=== PATIENT | female | born 1945 | race Caucasian/White ===

== ENCOUNTER → 2016-05-23 | Outpatient (CLI) | payer MEDICARE ==
[~2016-05-23] MED LIST: ALLP300T PO; AMLO10TA4 PO; AMLO10TA82 PO; ASP81TEC PO; ASPI-587 PO; ATN50T; AZIT250T PO; BARIUM SUSPENSION 2.1% (VANILLA SILQ) 450 ML PO ONE; BENZ-13 PO; BISO5TAB PO; CATHETER FLUSH 10 ML SYR IV PRN; DIAZ5TAB PO; EST45C; GABA300C PO; HCT25T; HYDR-3454 PO; HYDR-3583 PO; HYDR-3714 PO; HYDROCODONE; INSASP10V SC; INSU100V5 SQ; INSU100V8 SC; IOHEXOL 350 MG/ML 100 ML (OMNIPAQUE 350) VIAL IV ONE; LISI10TA PO; LOSA100T28 PO; LOSA100T7 PO; LOSA25TA21 PO; LOSA25TA5 PO; LOVA20TA2 PO; LSRT50T PO; MAGN400C PO; MULT1TAB63 PO; NEBI5TAB8 PO; NFNEB10T PO; NITR-33 PO; NITR100C10 PO; NS 100 ML (IVPB) BAG IV ONE; OMG1KC PO; POTASSIUM CITRATE; PRAV20TA PO; PROP1TAB77; RELION INSULIN; SPIR25TA3 PO; SULF1TAB35 PO
--- OUTSIDE RECORDS SUMMARY | 2016-05-23 09:29 | XMS REPORT | Continuity of Care Document ---
Author Author [facility] Organization [facility] Address Unknown Phone Unavailable Care Team Providers Care Naval Inspector Name Role Phone Bryanna Hand PCP [phone] Source Comments Some departments are not documenting in the electronic medical record. If you do not see the information that you expected, contact Release of Information in the Health Information Management department at [phone] for further assistance in locating additional records.[facility] Active Allergies and Adverse Reactions No Known Allergies Current Medications Prescription Sig. Disp. Refills Start End Date Status Date oxycodone/acetaminophen Take 1-2 Tabs by mouth 30 0 07/11/19 Active (PERCOCET) 5/325 mg Every 4-6 Hours as needed 09 tablet for Pain. senna/docusate Take 2 Tabs by mouth 60 0 07/11/19 Active (SENOKOT-S) 8.6/50 mg Twice Daily. 09 tablet levofloxacin (LEVAQUIN) Take 1 Tab by mouth 3 3 07/11/19 Active 500 mg tablet Daily. 09 Active Problems Problem Noted Date Nephrolithiasis 07/10/2008 Social History Tobacco Use Types Packs/Day Years Used Date Never Smoker Alcohol Use Drinks/Week oz/Week Comments No Last Filed Vital Signs Vital Sign Reading Time Taken Blood Pressure 159/76 07/10/2008 3:01 PM AGRICULTURAL EQUIPMENT SALES MANAGER Pulse 73 07/10/2008 3:01 PM AGRICULTURAL EQUIPMENT SALES MANAGER Temperature 37.3 C (99.1 F) 07/10/2008 3:01 PM AGRICULTURAL EQUIPMENT SALES MANAGER Respiratory Rate - - Height 1.651 m (5' 5") 07/09/2008 10:00 PM AGRICULTURAL EQUIPMENT SALES MANAGER Weight 67.405 kg (148 lb 9.6 oz) 07/10/2008 6:03 AM AGRICULTURAL EQUIPMENT SALES MANAGER Body Mass Index 24.73 07/10/2008 6:03 AM AGRICULTURAL EQUIPMENT SALES MANAGER Oxygen Saturation 97% 07/10/2008 3:01 PM AGRICULTURAL EQUIPMENT SALES MANAGER Plan of Care Health Maintenance Due Date Last Done Comments Physical (Comprehensive) 12/12/1952 Exam Pertussis Vaccine 12/12/1955 Tetanus Vaccine 1961 Breast Cancer Screening 1984 Colorectal Cancer 1994 Screening Shingles Vaccine 2004 Osteoporosis Screening 2009 Prevnar/Pneumovax (#1) 2009 Influenza Vaccine 01/07/2016 Results from Last 3 Months Not on file
--- NOTE | 2016-05-23 10:58 | Diagnostic Imaging Report ---
CLINICAL INDICATION: Patient with left-sided pain and coughing. Patient feels like something is in throat. EXAM: Axial CT scan of the neck soft tissue performed with 100 cc of Omnipaque 350 IV contrast. COMPARISON: CT scan of the neck soft tissue performed without IV contrast dated 07/16/2015. FINDINGS: There is non-masslike nonspecific vascularity and enhancement involving the upper esophagus/low hypopharyngeal region. There is a multi-nodular and slightly heterogeneous thyroid gland noted. There is at least 13 mm heterogeneous nodule in the right thyroid gland. The bilateral salivary glands are unremarkable. There is no neck lymphadenopathy. Stable mild impression upon the left posterior hypopharyngeal region of the cervical left ICA. Stable small right-sided tonsilliths. Otherwise, the nasopharynx, oropharynx, hypopharynx, and laryngeal structures are relatively symmetric and unremarkable. Lung apices show no significant abnormality. There are degenerative spurs and facet arthropathy involving the cervical spine. IMPRESSION: 1: Non-masslike, nonspecific vascularity and enhancement involving the upper esophagus/low hypopharyngeal region. Followup CT scan of the neck soft tissue with IV contrast in 3 months is suggested to evaluate for stability. This may just be normal appearance for patient. 2: There is no evidence of neck mass or significant abnormality. There is no lymphadenopathy. 3: Multinodular thyroid gland. Thyroid ultrasound would better evaluate. Dictated by: Dictated on workstation # [id number]
--- NOTE | 2016-05-23 11:40 | Diagnostic Imaging Report ---
PROCEDURE: CT abdomen and pelvis with contrast. TECHNIQUE: Multiple contiguous axial images were obtained through the abdomen and pelvis after administration of intravenous contrast. INDICATION: Followup colon cancer. COMPARISON: 10/04/2015. DISCUSSION: The visualized lung bases are well-aerated. Normal heart size. No pleural or pericardial fluid. Diffuse fatty infiltration of the liver is noted. No discrete liver mass is otherwise identified. The gallbladder, pancreas, stomach, spleen, and right adrenal gland are unremarkable. Borderline diffuse thickening the left adrenal gland is stable. Subcentimeter right renal cysts are stable. No hydronephrosis or solid renal mass. No stone identified. Scattered atherosclerotic plaque throughout a nonaneurysmal aorta. There is trace free fluid noted within the pelvis. Sigmoid diverticulosis with no secondary evidence for diverticulitis. Previous colectomy is otherwise noted with a right lower quadrant ostomy. Mild appearance of a central ha mesentery is again demonstrated. There are associated prominent central mesenteric lymph nodes which are essentially stable in size and number with the largest measuring 1.0 x 2.7 cm. The uterus is surgically absent. Urinary bladder is decompressed. Sclerotic focus within the L3 vertebrae is stable. No acute osseous abnormality identified. IMPRESSION: 1. Stable changes of mesenteric adenopathy and ha mesentery, indeterminate etiology. 2. Fatty infiltration of liver. 3. No other adverse interval change. Sclerotic focus within the L3 vertebrae is stable. Dictated by: Dictated on workstation # [id number]
== END ==
LOC: RAD 09:27
PROVIDERS: ATTEND Internal Medicine Hematology & Oncology
DX: C19 Malignant neoplasm of rectosigmoid junction (principal)
CPT/HCPCS: 70491; 74177

== ENCOUNTER → 2016-05-31 | Outpatient (CLI) | payer MEDICARE ==
[~2016-05-31] MED LIST changes: -BARIUM SUSPENSION 2.1% (VANILLA SILQ) 450 ML PO ONE; -CATHETER FLUSH 10 ML SYR IV PRN; -IOHEXOL 350 MG/ML 100 ML (OMNIPAQUE 350) VIAL IV ONE; -NS 100 ML (IVPB) BAG IV ONE
--- OUTSIDE RECORDS SUMMARY | 2016-05-31 12:43 | XMS REPORT | Continuity of Care Document ---
Author Author [facility] Organization [facility] Address Unknown Phone Unavailable Care Team Providers Care Home Care Giver Name Role Phone Bryanna Hand PCP [phone] Source Comments Some departments are not documenting in the electronic medical record. If you do not see the information that you expected, contact Release of Information in the Health Information Management department at [phone] for further assistance in locating additional records.[facility] Active Allergies and Adverse Reactions No Known [...] Taken Blood Pressure 159/76 07/10/2008 3:01 PM STRIPPING SHOVEL OILER Pulse 73 07/10/2008 3:01 PM STRIPPING SHOVEL OILER Temperature 37.3 C (99.1 F) 07/10/2008 3:01 PM STRIPPING SHOVEL OILER Respiratory Rate - - Height 1.651 m (5' 5") 07/09/2008 10:00 PM STRIPPING SHOVEL OILER Weight 67.405 kg (148 lb 9.6 oz) 07/10/2008 6:03 AM STRIPPING SHOVEL OILER Body Mass Index 24.73 07/10/2008 6:03 AM STRIPPING SHOVEL OILER Oxygen Saturation 97% 07/10/2008 3:01 PM STRIPPING SHOVEL OILER Plan of Care Health Maintenance Due Date Last Done Comments Physical (Comprehensive) 12/12/1952 Exam Pertussis Vaccine 12/12/1955 Tetanus Vaccine 1961 Breast Cancer Screening 1984 Colorectal Cancer 1994 Screening Shingles Vaccine 2004 Osteoporosis Screening 2009 Prevnar/Pneumovax (#1) 2009 Influenza Vaccine 01/07/2016 Results from Last 3 Months Not on file
== END ==
LOC: ONC 12:39
PROVIDERS: ATTEND Internal Medicine Hematology & Oncology
DX: Z08 Encounter for follow-up examination after completed treatment for malignant neoplasm (principal); Z85.038 Personal history of other malignant neoplasm of large intestine; Z85.048 Personal history of other malignant neoplasm of rectum, rectosigmoid junction, and anus; M89.9 Disorder of bone, unspecified; E11.9 Type 2 diabetes mellitus without complications; I10 Essential (primary) hypertension; E04.2 Nontoxic multinodular goiter; Z79.4 Long term (current) use of insulin; Z79.899 Other long term (current) drug therapy
CPT/HCPCS: 99213

== ENCOUNTER → 2016-06-02 | Outpatient (CLI) | payer MEDICARE ==
--- OUTSIDE RECORDS SUMMARY | 2016-06-02 11:58 | XMS REPORT | Continuity of Care Document ---
Author Author [facility] Organization [facility] Address Unknown Phone Unavailable Care Team Providers Care Loan Interviewer Mortgage Name Role Phone Bryanna Hand PCP [phone] Source Comments Some departments are not documenting in the electronic medical record. If you do not see the information that you expected, contact Release of Information in the Health Information Management department at [phone] for further assistance in locating additional records.[facility] Active Allergies and Adverse Reactions [...] Taken Blood Pressure 159/76 07/10/2008 3:01 PM ELECTRONIC MASKING SYSTEM OPERATOR Pulse 73 07/10/2008 3:01 PM ELECTRONIC MASKING SYSTEM OPERATOR Temperature 37.3 C (99.1 F) 07/10/2008 3:01 PM ELECTRONIC MASKING SYSTEM OPERATOR Respiratory Rate - - Height 1.651 m (5' 5") 07/09/2008 10:00 PM ELECTRONIC MASKING SYSTEM OPERATOR Weight 67.405 kg (148 lb 9.6 oz) 07/10/2008 6:03 AM ELECTRONIC MASKING SYSTEM OPERATOR Body Mass Index 24.73 07/10/2008 6:03 AM ELECTRONIC MASKING SYSTEM OPERATOR Oxygen Saturation 97% 07/10/2008 3:01 PM ELECTRONIC MASKING SYSTEM OPERATOR Plan of Care Health Maintenance Due Date Last Done Comments Physical (Comprehensive) 12/12/1952 Exam Pertussis Vaccine 12/12/1955 Tetanus Vaccine 1961 Breast Cancer Screening 1984 Colorectal Cancer 1994 Screening Shingles Vaccine 2004 Osteoporosis Screening 2009 Prevnar/Pneumovax (#1) 2009 Influenza Vaccine 01/07/2016 Results from Last 3 Months Not on file
--- NOTE | 2016-06-02 13:02 | Diagnostic Imaging Report ---
CLINICAL INDICATION: Patient with cough and feels like something is stuck in the left side of the throat. COMPARISONS: None. FINDINGS: THYROID NODULES: There are multiple bilateral thyroid gland nodules of multiple sizes. The largest on the right side measures 1.3 cm x 1.3 cm x 0.8 cm and is heterogeneous, but predominantly solid. There is peripheral Doppler signal seen adjacent to this nodule. The largest on the left side is predominantly anechoic and measures 8 mm x 7 mm x 4 mm. THYROID GLAND: Besides the thyroid nodules, the thyroid gland has normal size, shape and echogenicity. The right lobe measures 4.5 cm x 1.8 cm x 1.9 cm and the left lobe measures 5.3 cm x 2.0 cm x 1.5 cm in their three dimensions. ISTHMUS: The isthmus is unremarkable and measures roughly 5 mm in thickness. IMPRESSION: Multiple bilateral thyroid gland nodules with the largest measuring 1.3 cm in the right thyroid gland. Followup ultrasound in six months is suggested to evaluate for stability. Dictated by: Dictated on workstation # [id number]
== END ==
LOC: RAD 11:54
PROVIDERS: ATTEND Internal Medicine Hematology & Oncology
DX: E04.2 Nontoxic multinodular goiter (principal)
CPT/HCPCS: 76536

== ENCOUNTER → 2016-06-06 | Outpatient (CLI) | payer MEDICARE ==
--- OUTSIDE RECORDS SUMMARY | 2016-06-06 09:09 | XMS REPORT | Continuity of Care Document ---
Author Author [facility] Organization [facility] Address Unknown Phone Unavailable Care Team Providers Care Assistant Grocery Store Manager Name Role Phone Bryanna Hand PCP [phone] Source Comments Some departments are not documenting in the electronic medical record. If you do not see the information that you expected, contact Release of Information in the Health Information Management department at [phone] for further assistance in locating additional records.[facility] Active Allergies and Adverse Reactions No [...] Taken Blood Pressure 159/76 07/10/2008 3:01 PM WHOLESALE ACCOUNT MANAGER Pulse 73 07/10/2008 3:01 PM WHOLESALE ACCOUNT MANAGER Temperature 37.3 C (99.1 F) 07/10/2008 3:01 PM WHOLESALE ACCOUNT MANAGER Respiratory Rate - - Height 1.651 m (5' 5") 07/09/2008 10:00 PM WHOLESALE ACCOUNT MANAGER Weight 67.405 kg (148 lb 9.6 oz) 07/10/2008 6:03 AM WHOLESALE ACCOUNT MANAGER Body Mass Index 24.73 07/10/2008 6:03 AM WHOLESALE ACCOUNT MANAGER Oxygen Saturation 97% 07/10/2008 3:01 PM WHOLESALE ACCOUNT MANAGER Plan of Care Health Maintenance Due Date Last Done Comments Physical (Comprehensive) 12/12/1952 Exam Pertussis Vaccine 12/12/1955 Tetanus Vaccine 1961 Breast Cancer Screening 1984 Colorectal Cancer 1994 Screening Shingles Vaccine 2004 Osteoporosis Screening 2009 Prevnar/Pneumovax (#1) 2009 Influenza Vaccine 01/07/2016 Results from Last 3 Months Not on file
== END ==
LOC: ONC 09:05
PROVIDERS: ATTEND Internal Medicine Hematology & Oncology
DX: Z08 Encounter for follow-up examination after completed treatment for malignant neoplasm (principal); Z85.038 Personal history of other malignant neoplasm of large intestine; Z85.048 Personal history of other malignant neoplasm of rectum, rectosigmoid junction, and anus; M89.9 Disorder of bone, unspecified; E11.9 Type 2 diabetes mellitus without complications; I10 Essential (primary) hypertension; E04.2 Nontoxic multinodular goiter; Z79.4 Long term (current) use of insulin; Z79.899 Other long term (current) drug therapy
CPT/HCPCS: 99213

== ENCOUNTER → 2016-08-01 | Outpatient (CLI) | payer MEDICARE ==
[~2016-08-01] VITALS: Ht 165.1 cm; Wt 72.6 kg
[~2016-08-01] MED LIST changes: +CATHETER FLUSH 10 ML SYR IV PRN; +REGADENOSON 0.4 MG/5 ML SYR (LEXISCAN) IV ONE
--- NOTE | 2016-08-01 11:25 | STRESS TEST ---
PROCEDURE PHYSICIAN: NAYA URIAS LEXISCAN MYOVIEW STRESS TEST REPORT: DATE OF PROCEDURE: 08/01/2016 REFERRING PHYSICIAN: Dr. Jerardo Simmons. INDICATION FOR THE PROCEDURE: Chest pain. Baseline heart rate is 74, baseline blood pressure: 184/84. Baseline EKG: Sinus rhythm with no ischemic changes. SUMMARY: The patient was injected with 10.07 mCi of technetium 99 Myoview and the resting images were obtained. Then the patient received 0.4 mg of Lexiscan followed by 31.7 mCi of technetium 99 Myoview. Throughout the test, there were no EKG changes. The resting and stress images were reviewed and compared in the short axis, horizontal long axis, and vertical long axis views. Review of the images showed breast attenuation affecting the quality of the images. There is mild decreased uptake at the mid to apical anterior lateral wall, with subtle reversibility. SSS is 3, SDS 3, probably due to the breast attenuation. TID value 0.93. On the gated images, the left ventricle appeared to be normal size with normal contractility. Calculated ejection fraction 75%. CONCLUSION: 1. The patient tolerated Lexiscan well. 2. Breast attenuation affecting the quality of the images with typical female pattern. No significant ischemia or infarction on SPECT images. 3. Normal left ventricular size with normal contractility. Calculated ejection fraction 75%. Job ID: [id number] Dictated Date: 08/01/2016 11:06:16 Pattern And Chain Maker Date: 08/01/2016 11:21:31 / veronica
== END ==
LOC: CARD 07:30
PROVIDERS: ATTEND Internal Medicine Cardiovascular Disease
DX: I25.10 Atherosclerotic heart disease of native coronary artery without angina pectoris (principal); R07.89 Other chest pain; Z82.3 Family history of stroke; E78.2 Mixed hyperlipidemia; I10 Essential (primary) hypertension
CPT/HCPCS: 78452; 93017

== ENCOUNTER → 2016-08-02 | Outpatient (CLI) | payer MEDICARE ==
[~2016-08-02] MED LIST changes: -CATHETER FLUSH 10 ML SYR IV PRN; -REGADENOSON 0.4 MG/5 ML SYR (LEXISCAN) IV ONE
== END ==
LOC: ONC 14:12
PROVIDERS: ATTEND Internal Medicine Hematology & Oncology
DX: Z08 Encounter for follow-up examination after completed treatment for malignant neoplasm (principal); Z85.038 Personal history of other malignant neoplasm of large intestine; Z85.048 Personal history of other malignant neoplasm of rectum, rectosigmoid junction, and anus; M89.9 Disorder of bone, unspecified; E11.9 Type 2 diabetes mellitus without complications; I10 Essential (primary) hypertension; E04.2 Nontoxic multinodular goiter; Z79.4 Long term (current) use of insulin; Z79.899 Other long term (current) drug therapy
CPT/HCPCS: 99213

== ENCOUNTER → 2016-08-03 | Outpatient (CLI) | payer MEDICARE ==
--- NOTE | 2016-08-03 12:44 | ECHOCARDIOGRAPHY REPORT ---
PROCEDURE PHYSICIAN: NAYA URIAS DATE OF PROCEDURE: 08/03/2016 TWO DIMENSIONAL ECHOCARDIOGRAM REPORT PRIMARY PHYSICIAN: OTHER PHYSICIAN: REFERRING PHYSICIAN: Dr. Jerardo Simmons ORDERING PHYSICIAN: INDICATION FOR THE PROCEDURE: Chest pain, coronary artery disease. MEASUREMENTS DERIVED VALUES LV DIAMETER (LAX) NORMALS NORMALS Diastolic 4. (3.6-5.2) Eject. Fract. 60% (60%+/-6%) Systolic (2.3-3.9) Diastolic Vol. % Shortening (0.22-0.42) Systolic Vol. Aortic Root IVS THICKNESS Diastolic 1.3 (0.6-1.1) LVPW THICKNESS Diastolic 1.4 (0.6-1.1) LA DIAMETER Systolic 3.0 (2.1-3.7) FINDINGS: 1. Technical quality is good. 2. The left ventricle is normal in size with moderate left ventricular hypertrophy noted diffusely. Systolic function appeared to be normal. Estimated ejection fraction 60%. 3. The left atrium is normal in size. No clot or thrombus were seen within the left atrium. 4. The right atrium and right ventricle are normal in size. No clot or thrombus were seen within the right side. 5. Mitral valve is normal in morphology with mild mitral regurgitation noted by color Doppler flow. No mitral valve prolapse. No mitral valve stenosis. 6. Aortic valve is trileaflet with normal opening and closing pattern. No significant aortic stenosis or regurgitation was seen. 7. Tricuspid valve is normal in morphology with mild tricuspid regurgitation noted by color Doppler flow. Doppler across tricuspid valve estimated pulmonary artery pressure of 20+ right atrial pressure. 8. Pulmonic valve is functioning normally. 9. No pericardial effusion. CONCLUSION: 1. Normal left ventricular size and systolic function. Estimated ejection fraction 60%. 2. Mild mitral and tricuspid regurgitation. 3. Estimated pulmonary artery pressure of 25 to 30 mmHg. Job ID: [id number] Dictated Date: 08/03/2016 11:53:25 Cleat Thrower Date: 08/03/2016 12:39:31 / veronica
== END ==
LOC: CARD 07:46
PROVIDERS: ATTEND Internal Medicine Cardiovascular Disease
DX: I25.10 Atherosclerotic heart disease of native coronary artery without angina pectoris (principal); I10 Essential (primary) hypertension; E78.2 Mixed hyperlipidemia; R07.89 Other chest pain; Z82.3 Family history of stroke
CPT/HCPCS: 93306

== ENCOUNTER → 2016-08-19 | Outpatient (CLI) | payer MEDICARE ==
--- NOTE | 2016-08-19 17:39 | Diagnostic Imaging Report ---
EXAMINATION: Bilateral breast digital diagnostic mammogram with CAD. The current study was also evaluated with a Computer Aided Detection (CAD) system. COMPARISON: 08/18/15. INDICATION: Right breast pain and history of left breast lumpectomy with benign results. FINDINGS: The breasts are composed of heterogeneously dense parenchyma which may decrease mammographic sensitivity. There are surgical clips in the upper left breast. There is a focal asymmetry, measuring 1.3 cm, with lobulated appearance in the retroareolar area of the right breast and more posteriorly in the CC projection there is an asymmetry with question of summation artifact. Further evaluation with focal compression views demonstrate confirmed 1.3 cm retroareolar nodule and the more posterior asymmetry has resolved, suggestive of summation artifact of parenchyma. The left breast demonstrates no significant change with postsurgical changes and biopsy clip noted. IMPRESSION: 1.3 cm circumscribed retroareolar nodule in the right breast. Ultrasound evaluation pending. ACR BI-RADS Category 0: Incomplete. (Needs additional imaging evaluation). Result letter will be mailed to the patient. Note: At least 10% of breast cancer is not imaged by mammography. Dictated by: Dictated on workstation # [id number]
--- NOTE | 2016-08-22 08:58 | Diagnostic Imaging Report ---
Right breast ultrasound. INDICATION: Severe right breast pain. FINDINGS: There is a 1.3 cm simple cyst in the 12 o'clock periareolar region explaining the nodule seen on mammography. The retroareolar region and four quadrants of the breast otherwise demonstrate no underlying abnormality. IMPRESSION: The nodule seen on mammography corresponds to a simple cyst with no suspicious lesion seen. This does not explain the breast pain. Clinical follow-up is recommended. ACR BI-RADS Category 1: Negative. Dictated by: Dictated on workstation # [id number]
== END ==
LOC: RAD 07:21
PROVIDERS: ATTEND Internal Medicine
DX: N64.4 Mastodynia (principal); N60.01 Solitary cyst of right breast
CPT/HCPCS: 76641; 77066

== ENCOUNTER 2016-10-14 08:04 | Outpatient (RCR) | payer MEDICARE ==
[2016-10-12 10:23] LABS: CALCIUM 9.5 MG/DL (8.5-10.1); CREATININE SERUM 1.01 MG/DL (0.60-1.30); POTASSIUM 3.9 MMOL/L (3.6-5.0); URIC ACID 3.1 MG/DL (2.6-7.2)
--- NOTE | 2016-10-12 10:39 | Diagnostic Imaging Report ---
INDICATION: Nephrolithiasis. There is a 3-mm opacity projecting over the inferior pole of the left kidney. Patient has a ileostomy in the right lower quadrant of the abdomen. Bowel gas pattern is normal. IMPRESSION: Suspected left nephrolithiasis. Dictated by: Dictated on workstation # [id number]
[2016-10-22 20:39] LABS: STONE RISK AMMONIUM 44 mEq/24hr (14-62); STONE RISK BRUSHITE 0.12 (< 2.00); STONE RISK CA OXALATE 1.14 (< 2.00); STONE RISK CALCIUM 103 mg/day (< 250); STONE RISK CITRATE 62 mg/day (> 320); STONE RISK CREATININE 1346 mg/day (600-1800); STONE RISK MAGNESIUM 52 mg/day (> 60); STONE RISK OXALATE 32 mg/day (< 45); STONE RISK PH 5.2 (5.5-7.0); STONE RISK PHOSPHOROUS 654 mg/day (< 1100); STONE RISK POTASSIUM 38 mEq/24hr (19-135); STONE RISK SODIUM 45 mEq/24hr (< 200); STONE RISK SODIUM URATES 0.09 (< 2.00); STONE RISK STRUVITE 0.01 (< 75.00); STONE RISK SULFITE 8 mmol/day (< 30); STONE RISK TOTAL VOLUME 2.11 L/day (> 2.00); STONE RISK URIC ACID 243 mg/day (< 700); STONE RISK URIC ACID SAT 1.54 (< 2.00)
== END 2017-01-10 | disposition home or self-care (01) ==
LOC: RAD 08:04
PROVIDERS: ATTEND Urology
DX: N20.0 Calculus of kidney (principal)
CPT/HCPCS: 36415; 74000; 80048; 82140; 82340; 82507; 82570; 83735; 83945; 83986; 84105; 84133; 84300; 84392; 84550; 84560

== ENCOUNTER → 2017-08-01 | Outpatient (CLI) | payer MEDICARE ==
[2017-08-01 10:54] LABS: BASOPHILS % (AUTO) 1 % (0-10); EOSINOPHILS # (AUTO) 0.3 10^3/uL (0.0-0.3); EOSINOPHILS % (AUTO) 6 % (0-10); HEMATOCRIT 38 % (35-52); LYMPHOCYTES # (AUTO) 1.3 X 10^3 (1.0-4.0); LYMPHOCYTES % (AUTO) 22 % (12-44); MEAN CORPUSCULAR HEMOGLOBIN 33 PG (25-34); MEAN CORPUSCULAR HGB CONC 34 G/DL (32-36); MEAN CORPUSCULAR VOLUME 98 FL (80-99); MEAN PLATELET VOLUME 9.1 FL (7.4-10.4); MONOCYTES # (AUTO) 0.6 X 10^3 (0.0-1.0); MONOCYTES % (AUTO) 11 % (0-12); NEUTROPHILS # (AUTO) 3.4 X 10^3 (1.8-7.8); NEUTROPHILS % (AUTO) 61 % (42-75); PLATELET COUNT 149 10^3/uL (130-400); RED CELL DISTRIBUTION WIDTH 13.2 % (10.0-14.5); WHITE BLOOD COUNT 5.7 10^3/uL (4.3-11.0)
[2017-08-01 11:16] LABS: ALBUMIN 4.1 GM/DL (3.2-4.5); BILIRUBIN,TOTAL 0.6 MG/DL (0.1-1.0); CALCIUM 9.6 MG/DL (8.5-10.1); CREATININE SERUM 1.02 MG/DL (0.60-1.30); POTASSIUM 3.7 MMOL/L (3.6-5.0); TOTAL PROTEIN 7.1 GM/DL (6.4-8.2)
== END ==
LOC: ONC 10:40
PROVIDERS: ATTEND Internal Medicine Hematology & Oncology
DX: Z08 Encounter for follow-up examination after completed treatment for malignant neoplasm (principal); Z85.038 Personal history of other malignant neoplasm of large intestine; Z85.048 Personal history of other malignant neoplasm of rectum, rectosigmoid junction, and anus; M89.9 Disorder of bone, unspecified; R19.4 Change in bowel habit; E11.9 Type 2 diabetes mellitus without complications; I10 Essential (primary) hypertension; E04.2 Nontoxic multinodular goiter; Z79.4 Long term (current) use of insulin; Z79.899 Other long term (current) drug therapy
CPT/HCPCS: 36415; 80053; 82378; 85025; 99213

== ENCOUNTER → 2017-08-21 | Outpatient (CLI) | payer MEDICARE ==
--- NOTE | 2017-08-21 12:11 | Diagnostic Imaging Report ---
INDICATION: Routine screening. COMPARISON: 08/19/2016 and 08/18/2015. TECHNIQUE: Screening digital mammography was performed bilaterally with a Computer Aided Detection (CAD) system. 3D tomographic images were obtained and reviewed. FINDINGS: Both breasts are heterogeneously dense, limiting the sensitivity of mammography. A circumscribed mass in the retroareolar right breast appears to be fairly stable and was previously shown to represent a simple cyst. A biopsy clip in the retroareolar left breast is again noted. There are multiple surgical clips in the upper outer left breast. No mass or malignant appearing microcalcifications are seen. The axillae are unremarkable. IMPRESSION: No mammographic features suspicious for malignancy are identified. ACR BI-RADS Category 2: Benign findings. Result letter will be mailed to the patient. Note: At least 10% of breast cancer is not imaged by mammography. Dictated by: Dictated on workstation # [id number]
== END ==
LOC: RAD 08:31
PROVIDERS: ATTEND Internal Medicine
DX: Z12.31 Encounter for screening mammogram for malignant neoplasm of breast (principal)
CPT/HCPCS: 77067

== ENCOUNTER 2017-10-31 15:22 | Outpatient (RCR) | payer MEDICARE ==
[~2017-10-31 15:22] MED LIST changes: -BENZ-13 PO; +BENZ100C18 PO; -LOSA100T28 PO; +LOSA100T8 PO; -LOSA25TA21 PO; +LOSA25TA6 PO
[2017-10-31 16:19] LABS: CALCIUM 9.7 MG/DL (8.5-10.1); CREATININE SERUM 1.12 MG/DL (0.60-1.30); PHOSPHORUS 2.7 MG/DL (2.3-4.7); POTASSIUM 3.6 MMOL/L (3.6-5.0); URIC ACID 2.7 MG/DL (2.6-7.2)
--- NOTE | 2017-10-31 17:49 | Diagnostic Imaging Report ---
INDICATION: History of kidney stones. TIME OF EXAM: 4:13 p.m. COMPARISON: Correlation is made with prior radiograph from 10/12/2016. FINDINGS: Calcific densities overlie the lower pole of the left kidney. This appears to be similar to perhaps slightly increased when compared with one year earlier. Calculi are adjacent to one another and each measure approximately 3 mm. No calculi in the right abdomen are identified. No calculi along the course of the ureters are seen. The bowel gas pattern is unremarkable. IMPRESSION: Probable left lower pole renal calculi, similar to the examination from one year earlier. Dictated by: Dictated on workstation # [id number]
== END 2018-01-29 | disposition home or self-care (01) ==
LOC: LAB 15:22 → EDSTATUS 12-12 14:11
PROVIDERS: ATTEND Urology
DX: N20.0 Calculus of kidney (principal)
CPT/HCPCS: 36415; 74018; 80048; 82140; 82340; 82507; 82570; 83735; 83945; 83986; 84100; 84105; 84133; 84300; 84392; 84550; 84560

== ENCOUNTER 2018-01-30 10:27 | Outpatient (RCR) | payer MEDICARE | END 2018-02-04 | disposition home or self-care (01) | LOC: ONC 10:27 | PROVIDERS: ATTEND Internal Medicine Hematology & Oncology | DX: Z08 Encounter for follow-up examination after completed treatment for malignant neoplasm (principal); Z85.038 Personal history of other malignant neoplasm of large intestine; Z85.048 Personal history of other malignant neoplasm of rectum, rectosigmoid junction, and anus; M89.9 Disorder of bone, unspecified; R19.4 Change in bowel habit; E11.9 Type 2 diabetes mellitus without complications; I10 Essential (primary) hypertension; E04.2 Nontoxic multinodular goiter; Z79.4 Long term (current) use of insulin; Z79.899 Other long term (current) drug therapy | CPT/HCPCS: 99213 ==

== ENCOUNTER 2018-03-27 08:11 | Outpatient (RCR) | payer MEDICARE ==
[~2018-03-27 08:11] MED LIST changes: +LOSA100T57 PO; -LOSA100T8 PO; +LOSA25TA41 PO; -LOSA25TA6 PO
[2018-04-18] MEDS ORDERED: LOSA100T57 PO (07:26)
[2018-04-18] MEDS ORDERED: AMLO5TAB9 PO (07:26)
[2018-04-18] MEDS ORDERED: BISO5TAB PO (07:26)
[2018-04-18] MEDS ORDERED: VITA400C60 PO (07:26)
[2018-04-18] MEDS ORDERED: OMG1KC PO (07:26)
[2018-04-18] MEDS ORDERED: INSU100V6 SQ (07:26)
[2018-04-29] MEDS ORDERED: ONDA4TAB11 PO (13:31)
== END 2018-06-25 | disposition home or self-care (01) ==
LOC: CARD 08:11
PROVIDERS: ATTEND Internal Medicine Cardiovascular Disease
DX: I25.10 Atherosclerotic heart disease of native coronary artery without angina pectoris (principal); R07.89 Other chest pain; E11.9 Type 2 diabetes mellitus without complications; E78.5 Hyperlipidemia, unspecified; R00.2 Palpitations
CPT/HCPCS: 93225; 93226

== ENCOUNTER → 2018-04-11 | Outpatient (CLI) | payer MEDICARE ==
[~2018-04-11] MED LIST changes: +CATHETER FLUSH 10 ML SYR IV PRN; -LOSA100T57 PO; +LOSA100T8 PO; -LOSA25TA41 PO; +LOSA25TA6 PO
[2018-04-11 09:15] VITALS: BP 173/69
[2018-04-11 09:20] VITALS: BP 208/65
[2018-04-11 09:21] VITALS: BP 210/47
--- NOTE | 2018-04-11 15:46 | STRESS TEST ---
DATE OF SERVICE: 04/11/2018 EXERCISE MYOVIEW STRESS TEST REPORT Baseline heart rate is 73, baseline blood pressure 154/85. Baseline EKG is sinus rhythm with no ischemic changes. In summary, the patient was injected with 10.95 mCi of technetium-99 Myoview and the resting images were obtained. Then, the patient started exercising with a baseline heart rate, blood pressure and EKG mentioned above. The patient was able to exercise for a total of 4 minutes and 30 seconds on standard Osmin protocol. With peak exercise level, EKG was showing minimal nondiagnostic changes. Blood pressure was 183/46. During recovery, heart rate and blood pressure returned to baseline. EKG returned to baseline. The resting and stress images were reviewed and compared in the short axis, horizontal long axis, and vertical long axis views. Review of the images showed breast attenuation with decreased uptake involving the whole anterior wall and anterolateral wall with mild reversibility. SSS is 9, SDS 8, TID value 0.98. On the gated images, the left ventricle appeared to be normal size with normal contractility. Calculated ejection fraction 75%. CONCLUSION: 1. Fair exercise tolerance, a total of 4 minutes 30 seconds on standard Osmin protocol, 6.4 METS achieving 98% of maximum expected heart rate. 2. Hypertensive response to exercise, returned to baseline during recovery. 3. Nondiagnostic EKG changes with exercise returned to baseline during recovery. 4. Reversible ischemia involving the whole anterior wall and anterolateral wall. 5. Normal left ventricular size with normal contractility. Calculated ejection fraction 75%. Job ID: [id number] DocumentID: [id number] Dictated Date: 04/11/2018 15:23:59 Director Retail Brand Development Date: 04/11/2018 15:46:20 Dictated By: NAYA URIAS MD
== END ==
LOC: CARD 06:56
PROVIDERS: ATTEND Internal Medicine Cardiovascular Disease
DX: I25.10 Atherosclerotic heart disease of native coronary artery without angina pectoris (principal); R07.89 Other chest pain; E11.9 Type 2 diabetes mellitus without complications; E78.5 Hyperlipidemia, unspecified; R00.2 Palpitations
CPT/HCPCS: 78452; 93017

== ENCOUNTER 2018-04-18 06:48 | Day surgery (SDC) | payer MEDICARE ==
[2018-04-18] VITALS (11 sets, daily range): BP systolic 120–180; BP diastolic 59–84
[~2018-04-18] VITALS: Ht 165.1 cm; Wt 72.6 kg
[~2018-04-18 06:48] MED LIST changes: -CATHETER FLUSH 10 ML SYR IV PRN
[2018-04-18] MEDS ORDERED: HEParin (CATH LAB) 2,000 ML IV ONE (06:56)
[2018-04-18] MEDS ORDERED: NS IV 1000 ML 1,000 ML ONE (06:56)
[2018-04-18] MEDS ORDERED: LIDOCAINE 1% INJ 20 ML 20 ML VIAL ONE (06:56)
[2018-04-18] MEDS ORDERED: NS IV 1000 ML 1,000 ML IV SCH ×3 (07:00→08:28)
[2018-04-18 07:15] LABS: BILIRUBIN,URINE NEGATIVE (NEGATIVE); CLARITY,URINE CLEAR; COLOR,URINE YELLOW; GLUCOSE, URINE (UA) NEGATIVE (NEGATIVE); KETONES,URINE NEGATIVE (NEGATIVE); LEUKOCYTE ESTERASE ,URINE 1+ (NEGATIVE); MEAN PLATELET VOLUME 9.2 FL (7.4-10.4); NITRITE,URINE NEGATIVE (NEGATIVE); PH,URINE 5 (5-9); PROTEIN,URINE 3+ (NEGATIVE); RED BLOOD COUNT 4.27 10^6/uL (4.35-5.85); RED CELL DISTRIBUTION WIDTH 13.4 % (10.0-14.5); UROBILINOGEN,URINE NORMAL (NORMAL); WHITE BLOOD COUNT 5.8 10^3/uL (4.3-11.0)
[2018-04-18 07:23] LABS: BACTERIA,URINE TRACE /HPF; SQUAMOUS EPITHELIAL CELL,UR 0-2 /HPF; WBC,URINE 0-2 /HPF
[2018-04-18] MEDS ORDERED: LOSA100T8 PO (07:26)
[2018-04-18] MEDS ORDERED: VITA400C60 PO (07:26)
[2018-04-18] MEDS ORDERED: INSU100V6 SQ (07:26)
[2018-04-18] MEDS ORDERED: AMLO5TAB7 PO (07:26)
[2018-04-18] MEDS ORDERED: OMG1KC PO (07:26)
[2018-04-18] MEDS ORDERED: BISO5TAB PO (07:26)
[2018-04-18 07:27] LABS: INR 1.1 (0.8-1.4); PROTHROMBIN TIME PATIENT 14.3 SEC (12.2-14.7)
[2018-04-18 07:35] LABS: ALBUMIN 4.5 GM/DL (3.2-4.5); BILIRUBIN,TOTAL 0.8 MG/DL (0.1-1.0); CALCIUM 10.1 MG/DL (8.5-10.1); CREATININE SERUM 1.16 MG/DL (0.60-1.30); POTASSIUM 3.6 MMOL/L (3.6-5.0); TOTAL PROTEIN 7.8 GM/DL (6.4-8.2)
[2018-04-18] MEDS ORDERED: MIDAZOLAM 5 MG/5 ML (VERSED) VIAL ONE (07:48)
--- NOTE | 2018-04-18 07:48 | Diagnostic Imaging Report ---
INDICATION: Heart disease. Comparison made with prior examination 04/27/2016. FINDINGS: The heart size, mediastinal configuration, and pulmonary vascularity are within normal limits. There is no pleural effusion, pneumothorax, or pneumonia. The osseous structures are unremarkable. IMPRESSION: No acute cardiopulmonary abnormality. Dictated by: Dictated on workstation # [id number]
[2018-04-18] MEDS ORDERED: fentaNYL INJECTION 100 MCG/2 ML AMP ONE (07:49)
--- NOTE | 2018-04-18 08:17 | Cardiac Procedure Note-CS/ASA ---
Pre-Procedure Note Pre-Op Procedure Note H&P Reviewed The H&P was reviewed, patient examined and no changes noted. Date H&P Reviewed: Apr 18, 2018 Time H&P Reviewed: 08:17 Conscious Sedation Pre-Proced Time 08:17 ASA Score 3 For ASA 3 and 4: Consider anesthesia and medical clearance. Also, for patients with a history of failed moderate sedation consider anesthesia. Airway Lungs Heart ASA score ASA 1: a normal healthy patient ASA 2: a patient with a mild systemic disease (mid diabetes, controlled hypertension, obesity x ASA 3: a patient with a severe systemic disease that limits activity (angina , COPD, prior Myocardial infarction) ASA 4: a patient with an incapacitating disease that is a constant threat to life (CHF, renal failure) ASA 5: a moribund patient not expected to survive 24 hrs. (ruptured aneurysm) ASA 6: a declared brain patient whose organs are being harvested. For emergent operations, add the letter E after the classification Mallampati Classification Grade 3 Sedation Plan Analgesia, Amnesia, Plan communicated to team members, Discussed options with patient/fam, Discussed risks with patient/fam The patient is an appropriate candidate to undergo the planned procedure, sedation, and anesthesia. The patient immediately re-assessed prior to indication. NAYA URIAS MD Apr 18, 2018 08:17
[2018-04-18] MEDS ORDERED: PATIENT MAY USE OWN MEDS, ALL PO SCH (08:30)
--- NOTE | 2018-04-18 08:30 | Discharge Inst-Post CATH ---
Discharge Inst-CATH Post Cardiac Cath D/C Inst Follow Up/Plan Appointment with Dr. Montana's office in 2-4 weeks CARDIAC CATH DISCHARGE INSTRUCTIONS *Hold Metformin for 48 hours post heart cath. ACTIVITY * Go Home directly and rest. * Limit activity of the leg (or wrist if it was used) for 7 days including aerobics, swimming, jogging, bicycling, etc. * Restrict stair-climbing for 7 days if possible, if not, climb up with your non -cath leg, then bring together on the same step. * Avoid lifting, pushing, pulling or excessive movement of the affected extremity for 7 days. * Customary sexual activity may be resumed after 2 days-use caution not to use a position that strains or causes pain to the affected extremity. * No driving for 24 hours. * NO SMOKING. * Avoid straining for bowel movements for 7 days. * Gentle walking on level ground is allowed. * Returning to work will depend on the type of procedure and the results. Your doctor will discuss this with you. CALL YOUR DOCTOR FOR ANY OF THE FOLLOWING: *If bleeding from the puncture site occurs- Apply gentle pressure to site with clean cloth and call your doctor or EMS. * If a knot or lump forms under the skin, increases in size, or causes pain. * If bruising appears to be worsening or moving further down your leg instead of disappearing. * Temperature above 101 F. CARE OF YOUR GROIN INCISION; * Bruising or purple discoloration of the skin near the puncture site is common. * You may shower only, no bathtub bathing for 5 days. Be careful to avoid slipping as your leg may feel stiff. * If a closure device was used on your femoral artery, please see the attached guide regarding care of the device and your leg. * Leave the dressing on, until removed by office staff. CARE OF YOUR WRIST INCISION; * Bruising or purple discoloration of the skin near the puncture site is common. * You may shower. * DO NOT submerge wrist. * Leave dressing on, until removed by office staff.. NAYA MONTANA MD Apr 18, 2018 08:30
--- NOTE | 2018-04-18 08:34 | Cardiac Cath Report ---
Cardiac Cath Report Physician (s)/Physician Non Invasive Cardiologist (s) Physician NAYA URIAS MD Pre-Procedure Diagnosis Pre-Procedure Diagnosis: coronary artery disease Post-Procedure Note Procedure Start Date: Apr 18, 2018 Name of Procedure: left heart catheterization Findings/Procedure Note PROCEDURE NOTE: After explaining the procedure to the patient, all pros and cons were explained , all questions were answered. The patient signed the consent and then she was placed on the cardiac catheterization laboratory. Groin was prepped SL fashion local anesthesia was used. Sheath placed in the right femoral artery. Edith right and left catheter were used to access the coronary system. JR catheter was used to crossover to the left ventricular cavity, pressure was measured, no left ventricular gram was done At the end of the procedure the sheath was removed. Closure device was used FINDINGS: Hemodynamics LV 137/17, end-diastolic pressure of 17 Aorta 138/45 mean of 88 ANATOMY: Left Main is normal Left Anterior Descending has mild ectasia proximally, mild disease nonobstructive disease in the midportion Left Circumflex has mild ectasia proximally with no obstructive disease, small vessel disease Right Coronory Artery is slightly tortuous with 40-50 percent stenosis in the midportion nonobstructive disease CONCLUSION: 1. Mild ectasia in the proximal LAD with mild disease in the mid LAD, small vessel disease distally, mild ectasia in the proximal circumflex artery and 40- 50 percent stenosis in the mid right coronary artery, nonobstructive disease 2. Normal left ventricular end-diastolic pressure DISCUSSION AND RECOMMENDATION: abnormal stress test is probably due to small vessel disease, medical therapy is recommended no intervention is needed Anesthesia Type: Conscious Sedation Estimated blood loss (mL): 15 ml Contrast Amount: 41 ml Total Radiation Dose: 272 mGy Post-Procedure Diagnosis Post-operative diagnosis: Coronary artery disease Hypertension Hyperlipidemia Diabetes mellitus NAYA URIAS MD Apr 18, 2018 08:34
--- OUTSIDE RECORDS SUMMARY | 2018-04-18 12:37 | XMS REPORT | Clinical Summary ---
Author Author [facility] Organization [facility] Address Unknown Phone Unavailable Care Team Providers Care Manager Grant Name Role Phone Bryanna Hand PCP Tyrone Suarez MD Unavailable Source Comments Some departments are not documenting in the electronic medical record. If you do not see the information that you expected, contact Release of Information in the Health Information Management department at [phone] for further assistance in locating additional records.[facility] Allergies No Known Allergies Medications End Date Status Medication Sig Dispensed Refills Start Date Active oxycodone/acetaminophen Take 1-2 Tabs 30 0 07/10/200 (PERCOCET) 5/325 mg by mouth 9 tablet Every 4-6 Hours as needed for Pain. Active senna/docusate Take 2 Tabs 60 0 200 (SENOKOT-S) 8.6/50 mg by mouth 9 tablet Twice Daily. Active levofloxacin (LEVAQUIN) Take 1 Tab by 3 3 500 mg tablet mouth Daily. 9 Active Problems Problem Noted Date Nephrolithiasis 07/10/2008 Family History Medical History Relation Name Comments Cancer Brother Cancer Father Cancer Mother Stroke Mother Diabetes Sister Relation Name Status Comments Brother Father Mother Sister Social History Date Tobacco Use Types Packs/Day Years Used Never Smoker Alcohol Use Drinks/Week oz/Week Comments No Sex Assigned at Date Recorded Not on file Industry Job Start Date Occupation Not on file Not on file Not on file Travel End Travel History Travel Start No recent travel history available. Last Filed Vital Signs Time Taken Vital Sign Reading 07/10/2008 3:01 PM [facility] Blood Pressure 159/76 07/10/2008 3:01 PM [facility] Pulse 73 07/10/2008 3:01 PM [facility] Temperature 37.3 C (99.1 F) - Respiratory Rate - 07/10/2008 3:01 PM [facility] Oxygen Saturation 97% - Inhaled Oxygen - Concentration 07/10/2008 6:03 AM [facility] Weight 67.4 kg (148 lb 9.6 oz) 07/09/2008 10:00 PM [facility] Height 165.1 cm (5' 5") 07/10/2008 6:03 AM [facility] Body Mass Index 24.73 Plan of Treatment Health Maintenance Due Date Last Done Comments HEPATITIS C SCREENING 1944 PHYSICAL (COMPREHENSIVE) 12/12/1951 EXAM DTAP/TDAP VACCINES (1 - 1962 Tdap) BREAST CANCER SCREENING 1984 COLORECTAL CANCER 1994 SCREENING SHINGLES RECOMBINANT 1994 VACCINE (1 of 2) OSTEOPOROSIS 2009 SCREENING/MONITORING PNEUMONIA (PCV13/PPSV23) 2009 VACCINES (1 of 2 - PCV13) INFLUENZA VACCINE 12/06/2017 Results Not on filefrom Last 3 Months
--- OUTSIDE RECORDS SUMMARY | 2018-04-18 12:37 | XMS REPORT ---
Author Author SUE WALLACE Organization [facility] Address [address] [place] [address] Care Team Providers Care Simulation Software Engineer Name Role Phone SUE WALLACE Unavailable PROBLEMS Unknown Problems ALLERGIES No Information ENCOUNTERS Encounter Location Date Diagnosis [facility] [address] [id number] [place] [address] September, Need for hepatitis C screening test Z11.59 IMMUNIZATIONS No Known Immunizations SOCIAL HISTORY Never Assessed REASON FOR VISIT Hep C Rangel PLAN OF CARE VITAL SIGNS MEDICATIONS Unknown Medications RESULTS Name Result Date Reference Range HEP C ANTIBODY W/ REFLEX HCV 2017-09-23 HEPATITIS C ANTIBODY NON-REACTIVE NON-REACTIVE SIGNAL TO CUT-OFF 0.01 <1.00 PROCEDURES Procedure Date Ordered Result Body Site HEPATITIS C AB TEST September 23, 2017 VENIPUNCT, ROUTINE* September 23, 2017 INSTRUCTIONS MEDICATIONS ADMINISTERED No Known Medications
--- OUTSIDE RECORDS SUMMARY | 2018-04-18 12:40 | XMS REPORT | Continuity of Care Document ---
Author Author [facility] Organization [facility] Address Unknown Phone Unavailable Allergies Active Description Code Type Severity Reaction Onset Reported/Identified Relationship to Patient Clinical Status Yes levofloxacin [id number] Drug Allergy Mild RASH 07/06/2012 Yes amoxicillin [id number] Drug Allergy Unknown N/A 05/28/2014 Yes latex [id number] Drug Allergy Unknown N/A 04/18/2018 Medications There is no data. Problems Date Dx Coded Attending Type Code Diagnosis Diagnosed By 02/21/2011 Ot 250.00 DIAB RAÚL WO COMPL, TYPE II OR UNSPEC TY 02/21/2011 Ot 401.9 HYPERTENSION NOS 02/21/2011 Ot 733.90 BONE CARTILAGE DIS NOS 02/21/2011 Ot 794.8 ABN LIVER FUNCTION STUDY 02/21/2011 Ot V10.05 HX OF COLONIC MALIGNANCY 02/21/2011 Ot V10.06 HX-RECTAL ANAL MALIGN 02/21/2011 Ot V13.01 PERSONAL HISTORY OF URINARY CALCULI 02/21/2011 Ot V58.67 LONG-TERM ( 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 02/21/2011 Ot V58.69 OTH MED,LT, CURRENT USE 02/21/2011 Ot V67.2 CHEMOTHERAPY FOLLOW-UP 07/10/2012 Ot 250.00 DIAB RAÚL WO COMPL, TYPE II OR UNSPEC TY 07/10/2012 Ot 272.4 HYPERLIPIDEMIA NEC/NOS 07/10/2012 Ot 275.2 DIS MAGNESIUM METABOLISM 07/10/2012 Ot 276.8 HYPOPOTASSEMIA 07/10/2012 Ot 401.0 MALIGNANT HYPERTENSION 07/10/2012 Ot 571.49 CHRONIC HEPATITIS NEC 07/10/2012 Ot 786.59 CHEST PAIN NEC 07/10/2012 Ot V10.05 HX OF COLONIC MALIGNANCY 07/10/2012 Ot V10.06 HX-RECTAL ANAL MALIGN 07/10/2012 Ot V10.42 HX-UTERUS MALIGNANCY NEC 07/10/2012 Ot V15.82 HISTORY OF TOBACCO USE 07/10/2012 Ot V44.2 ILEOSTOMY STATUS 07/10/2012 Ot V44.3 COLOSTOMY STATUS 08/09/2012 Ot 327.23 OBSTRUCTIVE SLEEP APNEA (ADULT) (PEDIATR 11/13/2012 ALE KRISHNAMURTHY, JANAY Robert Ot 250.00 DIAB RAÚL WO COMPL, TYPE II OR UNSPEC TY 11/13/2012 JANAY AGUILERA MD Ot 592.0 CALCULUS OF KIDNEY 11/13/2012 JANAY AGUILERA MD Ot V58.67 LONG-TERM (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 07/05/2013 HARSH WALTON MD Ot 250.00 DIAB RAÚL WO COMPL, TYPE II OR UNSPEC TY 07/05/2013 HARSH WALTON MD Ot 272.4 HYPERLIPIDEMIA NEC/NOS 07/05/2013 HARSH WALTON MD Ot 275.2 DIS MAGNESIUM METABOLISM 07/05/2013 HARSH WALTON MD Ot 276.8 HYPOPOTASSEMIA 07/05/2013 HARSH WALTON MD Ot 300.00 ANXIETY STATE NOS 07/05/2013 HARSH WALTON MD Ot 401.1 BENIGN HYPERTENSION 07/05/2013 HARSH WALTON MD Ot 414.01 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, UNSPECIFIED 05/03/2014 JUAN CARLOS WEISS MD Ot 784.0 HEADACHE 05/03/2014 JUAN CARLOS WEISS MD Ot V58.67 LONG-TERM (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 05/03/2014 JUAN CARLOS WEISS MD Ot V58.69 OT MED,LT,CURRENT USE 05/07/2014 BHAVANI GALLAGHER MD Ot 250.00 05/07/2014 BHAVANI GALLAGHER MD Ot 401.9 05/07/2014 BHAVANI GALLAGHER MD Ot 733.90 05/07/2014 BHAVANI GALLAGHER MD Ot V10.05 05/07/2014 AILEEN KRISHNAMURTHY, BHAVANI Ot V10.06 05/07/2014 AILEEN KRISHNAMURTHY, BHAVANI Ot V13.01 05/07/2014 AILEEN KRISHNAMURTHY, BHAVANI Ot V58.67 05/07/2014 AILEEN KRISHNAMURTHY, BHAVANI Ot V58.69 05/07/2014 AILEEN KRISHNAMURTHY, BHAVANI Ot V67.2 05/30/2014 ALLA KRISHNAMURTHY, HERB Naik Ot 173.41 BASAL CELL CARCINOMA OF SCALP AND SKIN O 05/30/2014 ALLA KRISHNAMURTHY, HERB Naik Ot 702.19 OTHER SEBORRHEIC KERATOSIS 05/30/2014 ALLA KRISHNAMURTHY, HERB Naik Ot 709.9 05/30/2014 ALLA KRISHNAMURTHY, HERB Naik Ot V58.69 [facility] MED,,CURRENT USE 10/28/2014 ALE KRISHNAMURTHY, JANAY A Ot 592.9 10/30/2014 ALE KRISHNAMURTHY, JANAY A Ot 592.9 06/03/2015 AILEEN KRISHNAMURTHY, BHAVANI Ot Z08 06/03/2015 AILEEN KRISHNAMURTHY, BHAVANI Ot Z85.038 06/04/2015 AILEEN KRISHNAMURTHY, BHAVANI Ot Z08 06/04/2015 AILEEN KRISHNAMURTHY, BHAVANI Ot Z85.038 07/07/2015 AILEEN KRISHNAMURTHY, BHAVANI Ot Z08 ENCNTR FOR FOLLOW-UP EXAM AFTER TRTMT FO 07/07/2015 AILEEN KRISHNAMURTHY, BHAVANI Ot Z85.038 PERSONAL HISTORY OF MALIGNANT NEOPLASM O 07/17/2015 SHAILA WEST DO Ot E11.9 TYPE 2 DIABETES MELLITUS WITHOUT COMPLIC 07/17/2015 SHAILA WEST DO, Ot K52.9 NONINFECTIVE GASTROENTERITIS AND COLITIS 07/17/2015 SHAILA WEST DO Ot R11.2 NAUSEA WITH VOMITING, UNSPECIFIED 07/17/2015 SHAILA WEST DO Ot R19.7 DIARRHEA, UNSPECIFIED 07/17/2015 SHAILA WEST DO, Ot R25.2 CRAMP AND SPASM 07/17/2015 SHAILA WEST DO Ot Z79.4 HALFWAY (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 07/17/2015 SHAILA WEST DO Ot E11.9 07/17/2015 SHAILA WEST DO Ot K52.9 07/17/2015 SHAILA WEST DO Ot R11.2 07/17/2015 JENNA DO, SHAILA Mckinley Ot R19.7 07/17/2015 JENNA DO, SHAILA Mckinley Ot R25.2 07/17/2015 JENNA CANTU, SHAILA Mckinley Ot Z79.4 07/17/2015 CHINA KRISHNAMURTHY, HARSH Gomez Ot E11.9 TYPE 2 DIABETES MELLITUS WITHOUT COMPLIC 07/17/2015 CHINA KRISHNAMURTHY, HARSH Gomez Ot I10 ESSENTIAL (PRIMARY) HYPERTENSION 07/17/2015 CHINA KRISHNAMURTHY, HARSH Gomez Ot M47.812 SPONDYLOSIS W/O MYELOPATHY OR RADICULOPA 07/17/2015 CHINA KRISHNAMURTHY, HARSH Gomez Ot R25.2 CRAMP AND SPASM 07/17/2015 CHINA KRISHNAMURTHY, HARSH Gomez Ot 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 07/20/2015 CHINA KRISHNAMURTHY, HARSH Gomez Ot E11.9 07/20/2015 CHINA KRISHNAMURTHY, HARSH Gomez Ot I10 07/20/2015 CHINA KRISHNAMURTHY, HARSH Jason Ot M47.812 07/20/2015 CHINA KRISHNAMURTHY, HARSH S Ot R25.2 07/20/2015 CHINA KRISHNAMURTHY, HARSH Jason Ot Z79.4 08/11/2015 CHINA KRISHNAMURTHY, HARSH Jason Ot E11.9 08/11/2015 CHINA KRISHNAMURTHY, HARSH Gomez Ot I10 08/11/2015 CHINA KRISHNAMURTHY, HARSH Jason Ot M47.812 08/11/2015 CHINA KRISHNAMURTHY, HARSH Jason Ot R25.2 08/11/2015 CHINA KRISHNAMURTHY, HARSH Gomez Ot Z79.4 08/19/2015 Ot Z12.31 08/22/2015 KAREN LOPEZ MD Ot E11.9 TYPE 2 DIABETES MELLITUS WITHOUT COMPLIC 08/22/2015 KAREN LOPEZ MD Ot I10 ESSENTIAL (PRIMARY) HYPERTENSION 08/22/2015 KAREN LOPEZ MD Ot J06.9 ACUTE UPPER RESPIRATORY INFECTION, UNSPE 08/22/2015 KAREN LOPEZ MD Ot Z79.4 HALFWAY (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 08/22/2015 KAREN LOPEZ MD Ot Z93.2 ILEOSTOMY STATUS 08/24/2015 KAREN LOPEZ MD Ot E11.9 TYPE 2 DIABETES MELLITUS WITHOUT COMPLIC 08/24/2015 KAREN LOPEZ MD Ot I10 ESSENTIAL (PRIMARY) HYPERTENSION 08/24/2015 KAREN LOPEZ MD Ot J06.9 ACUTE UPPER RESPIRATORY INFECTION, UNSPE 08/24/2015 KAREN LOPEZ MD Ot 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 08/24/2015 KAREN LOPEZ MD Ot Z93.2 ILEOSTOMY STATUS 09/09/2015 Ot Z12.31 ENCNTR SCREEN MAMMOGRAM FOR MALIGNANT NE 09/18/2015 SHAILA WEST DO Ot E11.9 TYPE 2 DIABETES MELLITUS WITHOUT COMPLIC 09/18/2015 SHAILA WEST DO Ot K52.9 NONINFECTIVE GASTROENTERITIS AND COLITIS 09/18/2015 SHAILA WEST DO Ot R11.2 NAUSEA WITH VOMITING, UNSPECIFIED 09/18/2015 SHAILA WEST DO Ot R19.7 DIARRHEA, UNSPECIFIED 09/18/2015 SHAILA WEST DO Ot R25.2 CRAMP AND SPASM 09/18/2015 SHAILA WEST DO Ot 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 10/06/2015 ALE KRISHNAMURTHY, JANAY Robert Ot N20.0 CALCULUS OF KIDNEY 10/07/2015 HARSH ATKINSON MD Ot E11.9 TYPE 2 DIABETES MELLITUS WITHOUT COMPLIC 10/07/2015 HARSH ATKINSON MD Ot I10 ESSENTIAL (PRIMARY) HYPERTENSION 10/07/2015 CHINA KRISHNAMURTHY, HARSH Gomez Ot M47.812 SPONDYLOSIS W/O MYELOPATHY OR RADICULOPA 10/07/2015 HARSH ATKINSON MD Ot R25.2 CRAMP AND SPASM 10/07/2015 HARSH ATKINSON MD Ot 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 10/07/2015 HARSH WALTON MD Ot E11.9 TYPE 2 DIABETES MELLITUS WITHOUT COMPLIC 10/07/2015 ISABELLE KRISHNAMURTHY, HARSH Mckinley Ot E78.5 HYPERLIPIDEMIA, UNSPECIFIED 10/07/2015 HARSH WALTON MD Ot E86.9 VOLUME DEPLETION, UNSPECIFIED 10/07/2015 HARSH WALTON MD Ot E87.2 ACIDOSIS 10/07/2015 HARSH WALTON MD Ot F32.9 MAJOR DEPRESSIVE DISORDER, SINGLE EPISOD 10/07/2015 HARSH WALTON MD Ot I10 ESSENTIAL (PRIMARY) HYPERTENSION 10/07/2015 HARSH WALTON MD Ot M54.2 CERVICALGIA 10/07/2015 ISABELLE KRISHNAMURTHY, HARSH Mckinley Ot M54.9 DORSALGIA, UNSPECIFIED 10/07/2015 ISABELLE KRISHNAMURTHY, HARSH Mckinley Ot N17.9 ACUTE KIDNEY FAILURE, UNSPECIFIED 10/07/2015 ISABELLE KRISHNAMURTHY, HARSH Mckinley Ot R19.7 DIARRHEA, UNSPECIFIED 10/07/2015 ISABELLE KRISHNAMURTHY, HARSH Mckinley Ot 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 10/07/2015 ISABELLE KRISHNAMURTHY, HARSH Mckinley Ot Z93.2 ILEOSTOMY STATUS 10/23/2015 ALE KRISHNAMURTHY, JANAY A Ot N20.0 CALCULUS OF KIDNEY 10/31/2015 ALE KRISHNAMURTHY, JANAY A Ot N20.0 CALCULUS OF KIDNEY 11/06/2015 CHINA KRISHNAMURTHY, HARSH Gomez Ot E11.9 TYPE 2 DIABETES MELLITUS WITHOUT COMPLIC 11/06/2015 CHINA KRISHNAMURTHY, HARSH Gomez Ot I10 ESSENTIAL (PRIMARY) HYPERTENSION 11/06/2015 CHINA KRISHNAMURTHY, HARSH Gomez Ot M47.812 SPONDYLOSIS W/O MYELOPATHY OR RADICULOPA 11/06/2015 HARSH ATKINSON MD Ot R25.2 CRAMP AND SPASM 11/06/2015 HARSH ATKINSON MD Ot 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 12/07/2015 HARSH ATKINSON MD Ot E11.9 TYPE 2 DIABETES MELLITUS WITHOUT COMPLIC 12/07/2015 HARSH ATKINSON MD Ot I10 ESSENTIAL (PRIMARY) HYPERTENSION 12/07/2015 HARSH ATKINSON MD Ot M47.812 SPONDYLOSIS W/O MYELOPATHY OR RADICULOPA 12/07/2015 HARSH ATKINSON MD Ot R25.2 CRAMP AND SPASM 12/07/2015 HARSH ATKINSON MD Ot Z79.4 HALFWAY (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 02/06/2016 HARSH ATKINSON MD Ot E11.9 TYPE 2 DIABETES MELLITUS WITHOUT COMPLIC 02/06/2016 HARSH ATKINSON MD Ot I10 ESSENTIAL (PRIMARY) HYPERTENSION 02/06/2016 HARSH ATKINSON MD Ot M47.812 SPONDYLOSIS W/O MYELOPATHY OR RADICULOPA 02/06/2016 HARSH ATKINSON MD Ot R25.2 CRAMP AND SPASM 02/06/2016 HARSH ATKINSON MD Ot 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 03/08/2016 HARSH ATKINSON MD Ot E11.9 TYPE 2 DIABETES MELLITUS WITHOUT COMPLIC 03/08/2016 HARSH ATKINSON MD Ot I10 ESSENTIAL (PRIMARY) HYPERTENSION 03/08/2016 HARSH ATKINSON MD Ot M47.812 SPONDYLOSIS W/O MYELOPATHY OR RADICULOPA 03/08/2016 HARSH ATKINSON MD Ot R25.2 CRAMP AND SPASM 03/08/2016 HARSH ATKINSON MD Ot 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 04/12/2016 BHAVANI GALLAGHER MD, Ot Z08 ENCNTR FOR FOLLOW-UP EXAM AFTER TRTMT FO 04/12/2016 BHAVANI GALLAGHER MD, Ot Z85.038 PERSONAL HISTORY OF MALIGNANT NEOPLASM O 04/13/2016 BHAVANI GALLAGHER MD, Ot Z08 ENCNTR FOR FOLLOW-UP EXAM AFTER TRTMT FO 04/13/2016 BHAVANI GALLAGHER MD, Ot Z85.038 PERSONAL HISTORY OF MALIGNANT NEOPLASM O 04/19/2016 BHAVANI GALLAGHER MD, Ot Z08 ENCNTR FOR FOLLOW-UP EXAM AFTER TRTMT FO 04/19/2016 BHAVANI GALLAGHER MD Ot Z85.038 PERSONAL HISTORY OF MALIGNANT NEOPLASM O 04/21/2016 BHAVANI GALLAGHER MD Ot Z08 ENCNTR FOR FOLLOW-UP EXAM AFTER TRTMT FO 04/21/2016 BHAVANI GALLAGHER MD Ot Z85.038 PERSONAL HISTORY OF MALIGNANT NEOPLASM O 04/27/2016 Ot 153.9 MALIGNANT EDER COLON NOS 04/27/2016 Ot 250.00 DIAB RAÚL WO COMPL, TYPE II OR UNSPEC TY 04/27/2016 Ot 154.3 MALIGNANT EDER ANUS NOS 04/27/2016 Ot 250.00 DIAB RAÚL WO COMPL, TYPE II OR UNSPEC TY 04/27/2016 Ot 401.9 HYPERTENSION NOS 04/27/2016 Ot 478.19 OTHER DISEASE OF NASAL CAVITY AND SINUSE 04/27/2016 Ot 733.90 BONE CARTILAGE DIS NOS 04/27/2016 Ot 789.04 ABDOMINAL PAIN, LEFT LOWER QUADRANT 04/27/2016 Ot 794.8 ABN LIVER FUNCTION STUDY 04/27/2016 Ot V13.01 PERSONAL HISTORY OF URINARY CALCULI 04/27/2016 Ot V58.67 LONG-TERM ( 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 04/27/2016 Ot V58.69 OTH MED,LT, CURRENT USE 04/27/2016 Ot V87.41 PERSONAL HISTORY OF ANTINEOPLASTIC CHEMO 04/27/2016 Ot 250.00 DIAB RAÚL WO COMPL, TYPE II OR UNSPEC TY 04/27/2016 Ot 401.9 HYPERTENSION NOS 04/27/2016 Ot 733.90 BONE CARTILAGE DIS NOS 04/27/2016 Ot 790.6 ABN BLOOD CHEMISTRY NEC 04/27/2016 Ot V10.05 HX OF COLONIC MALIGNANCY 04/27/2016 Ot V10.06 HX-RECTAL ANAL MALIGN 04/27/2016 Ot V13.01 PERSONAL HISTORY OF URINARY CALCULI 04/27/2016 Ot V58.67 LONG-TERM ( 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 04/27/2016 Ot V58.69 OTH MED,LT, CURRENT USE 04/27/2016 Ot V67.2 CHEMOTHERAPY FOLLOW-UP 04/27/2016 Ot V76.12 OTH SCREEN MAMMO-MALIGN NEOPLASM OF ALMA 04/27/2016 Ot 250.00 DIAB RAÚL WO COMPL, TYPE II OR UNSPEC TY 04/27/2016 Ot 401.9 HYPERTENSION NOS 04/27/2016 Ot 733.90 BONE CARTILAGE DIS NOS 04/27/2016 Ot V10.05 HX OF COLONIC MALIGNANCY 04/27/2016 Ot V10.06 HX-RECTAL ANAL MALIGN 04/27/2016 Ot V13.01 PERSONAL HISTORY OF URINARY CALCULI 04/27/2016 Ot V58.67 LONG-TERM ( 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 04/27/2016 Ot V58.69 OTH MED,LT, CURRENT USE 04/27/2016 Ot V67.2 CHEMOTHERAPY FOLLOW-UP 04/27/2016 Ot 153.9 MALIGNANT EDER COLON NOS 04/27/2016 Ot 250.00 DIAB RAÚL WO COMPL, TYPE II OR UNSPEC TY 04/27/2016 Ot 401.9 HYPERTENSION NOS 04/27/2016 Ot 733.90 BONE CARTILAGE DIS NOS 04/27/2016 Ot V10.05 HX OF COLONIC MALIGNANCY 04/27/2016 Ot V10.06 HX-RECTAL ANAL MALIGN 04/27/2016 Ot V13.01 PERSONAL HISTORY OF URINARY CALCULI 04/27/2016 Ot V58.67 LONG-TERM ( 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 04/27/2016 Ot V58.69 OTH MED,LT, CURRENT USE 04/27/2016 Ot V67.2 CHEMOTHERAPY FOLLOW-UP 04/27/2016 Ot 153.9 MALIGNANT EDER COLON NOS 04/27/2016 Ot 733.90 BONE CARTILAGE DIS NOS 04/27/2016 BHAVANI GALLAGHER MD Ot 153.9 MALIGNANT EDER COLON NOS 04/27/2016 ISABELLE KRISHNAMURTHY, HARSH Mckinley Ot V76.12 OTH SCREEN MAMMO-MALIGN NEOPLASM OF ALMA 04/27/2016 JANAY AGUILERA MD Ot 592.0 CALCULUS OF KIDNEY 04/27/2016 JANAY AGUILERA MD A Ot 592.0 CALCULUS OF KIDNEY 04/27/2016 JANAY AGUILERA MD Ot V72.83 EXAM PRE-OPERATIVE NEC 04/27/2016 JANAY AGUILERA MD Ot V74.8 SCREEN-BACTERIAL DIS NEC 04/27/2016 ISABELLE KRISHNAMURTHY, HARSH Mckinley Ot 793.80 UNSPEC ABNORMAL MAMMOGRAM 04/27/2016 JANAY AGUILERA MD Ot 592.0 CALCULUS OF KIDNEY 04/27/2016 BHAVANI GALLAGHER MD Ot 250.00 DIAB RAÚL WO COMPL, TYPE II OR UNSPEC TY 04/27/2016 BHAVANI GALLAGHER MD Ot 401.9 HYPERTENSION NOS 04/27/2016 BHAVANI GALLAGHER MD Ot 733.90 BONE CARTILAGE DIS NOS 04/27/2016 BHAVANI GALLAGHER MD Ot V10.05 HX OF COLONIC MALIGNANCY 04/27/2016 BHAVANI GALLAGHER MD Ot V10.06 HX-RECTAL ANAL MALIGN 04/27/2016 BHAVANI GALLAGHER MD Ot V13.01 PERSONAL HISTORY OF URINARY CALCULI 04/27/2016 BHAVANI GALLAGHER MD Ot V58.67 LONG-TERM (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 04/27/2016 BHAVANI GALLAGHER MD Ot V58.69 OTH MED,LT,CURRENT USE 04/27/2016 BHAVANI GALLAGHER MD Ot V67.2 CHEMOTHERAPY FOLLOW-UP 04/27/2016 JANAY AGUILERA MD Ot 592.9 URINARY CALCULUS NOS 04/27/2016 BHAVANI GALLAGHER MD Ot 250.00 DIAB RAÚL WO COMPL, TYPE II OR UNSPEC TY 04/27/2016 BHAVANI GALLAGHER MD Ot 401.9 HYPERTENSION NOS 04/27/2016 BHAVANI GALLAGHER MD Ot 733.90 BONE CARTILAGE DIS NOS 04/27/2016 BHAVANI GALLAGHER MD Ot V10.05 HX OF COLONIC MALIGNANCY 04/27/2016 BHAVANI GALLAGHER MD Ot V10.06 HX-RECTAL ANAL MALIGN 04/27/2016 BHAVANI GALLAGHER MD Ot V13.01 PERSONAL HISTORY OF URINARY CALCULI 04/27/2016 BHAVANI GALLAGHER MD Ot V58.67 LONG-TERM (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 04/27/2016 BHAVANI GALLAGHER MD Ot V58.69 OTH MED,LT,CURRENT USE 04/27/2016 BHAVANI GALLAGHER MD Ot V67.2 CHEMOTHERAPY FOLLOW-UP 04/27/2016 ALLA KRISHNAMURTHY, HERB Naik Ot 709.9 SKIN DISORDER NOS 04/27/2016 ALLA KRISHNAMURTHY, HERB Naik Ot V72.84 EXAM PRE-OPERATIVE NOS 04/27/2016 HERB GOLD MD Ot V74.8 SCREEN-BACTERIAL DIS NEC 04/27/2016 JANAY AGUILERA MD Ot 592.9 URINARY CALCULUS NOS 04/27/2016 BHAVANI GALLAGHER MD Ot Z08 ENCNTR FOR FOLLOW-UP EXAM AFTER TRTMT FO 04/27/2016 BHAVANI GALLAGHER MD Ot Z85.038 PERSONAL HISTORY OF MALIGNANT NEOPLASM O 04/27/2016 Ot Z12.31 ENCNTR SCREEN MAMMOGRAM FOR MALIGNANT NE 04/27/2016 JANAY AGUILERA MD Ot N20.0 CALCULUS OF KIDNEY 04/28/2016 Ot 153.9 MALIGNANT EDER COLON NOS 04/28/2016 Ot 250.00 DIAB RAÚL WO COMPL, TYPE II OR UNSPEC TY 04/28/2016 Ot 154.3 MALIGNANT EDER ANUS NOS 04/28/2016 Ot 250.00 DIAB RAÚL WO COMPL, TYPE II OR UNSPEC TY 04/28/2016 Ot 401.9 HYPERTENSION NOS 04/28/2016 Ot 478.19 OTHER DISEASE OF NASAL CAVITY AND SINUSE 04/28/2016 Ot 733.90 BONE CARTILAGE DIS NOS 04/28/2016 Ot 789.04 ABDOMINAL PAIN, LEFT LOWER QUADRANT 04/28/2016 Ot 794.8 ABN LIVER FUNCTION STUDY 04/28/2016 Ot V13.01 PERSONAL HISTORY OF URINARY CALCULI 04/28/2016 Ot V58.67 LONG-TERM ( 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 04/28/2016 Ot V58.69 OTH MED,LT, CURRENT USE 04/28/2016 Ot V87.41 PERSONAL HISTORY OF ANTINEOPLASTIC CHEMO 04/28/2016 Ot 250.00 DIAB RAÚL WO COMPL, TYPE II OR UNSPEC TY 04/28/2016 Ot 401.9 HYPERTENSION NOS 04/28/2016 Ot 733.90 BONE CARTILAGE DIS NOS 04/28/2016 Ot 790.6 ABN BLOOD CHEMISTRY NEC 04/28/2016 Ot V10.05 HX OF COLONIC MALIGNANCY 04/28/2016 Ot V10.06 HX-RECTAL ANAL MALIGN 04/28/2016 Ot V13.01 PERSONAL HISTORY OF URINARY CALCULI 04/28/2016 Ot V58.67 LONG-TERM ( 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 04/28/2016 Ot V58.69 OTH MED,LT, CURRENT USE 04/28/2016 Ot V67.2 CHEMOTHERAPY FOLLOW-UP 04/28/2016 Ot V76.12 OTH SCREEN MAMMO-MALIGN NEOPLASM OF ALMA 04/28/2016 Ot 250.00 DIAB RAÚL WO COMPL, TYPE II OR UNSPEC TY 04/28/2016 Ot 401.9 HYPERTENSION NOS 04/28/2016 Ot 733.90 BONE CARTILAGE DIS NOS 04/28/2016 Ot V10.05 HX OF COLONIC MALIGNANCY 04/28/2016 Ot V10.06 HX-RECTAL ANAL MALIGN 04/28/2016 Ot V13.01 PERSONAL HISTORY OF URINARY CALCULI 04/28/2016 Ot V58.67 LONG-TERM ( 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 04/28/2016 Ot V58.69 OTH MED,LT, CURRENT USE 04/28/2016 Ot V67.2 CHEMOTHERAPY FOLLOW-UP 04/28/2016 Ot 153.9 MALIGNANT EDER COLON NOS 04/28/2016 Ot 250.00 DIAB RAÚL WO COMPL, TYPE II OR UNSPEC TY 04/28/2016 Ot 401.9 HYPERTENSION NOS 04/28/2016 Ot 733.90 BONE CARTILAGE DIS NOS 04/28/2016 Ot V10.05 HX OF COLONIC MALIGNANCY 04/28/2016 Ot V10.06 HX-RECTAL ANAL MALIGN 04/28/2016 Ot V13.01 PERSONAL HISTORY OF URINARY CALCULI 04/28/2016 Ot V58.67 LONG-TERM ( 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 04/28/2016 Ot V58.69 OTH MED,LT, CURRENT USE 04/28/2016 Ot V67.2 CHEMOTHERAPY FOLLOW-UP 04/28/2016 Ot 153.9 MALIGNANT EDER COLON NOS 04/28/2016 Ot 733.90 BONE CARTILAGE DIS NOS 04/28/2016 BHAVANI GALLAGHER MD Ot 153.9 MALIGNANT EDER COLON NOS 04/28/2016 ISABELLE KRISHNAMURTHY, HARSH Mckinley Ot V76.12 OTH SCREEN MAMMO-MALIGN NEOPLASM OF ALMA 04/28/2016 JANAY AGUILERA MD Ot 592.0 CALCULUS OF KIDNEY 04/28/2016 JANAY AGUILERA MD Ot 592.0 CALCULUS OF KIDNEY 04/28/2016 JANAY AGUILERA MD Ot V72.83 EXAM PRE-OPERATIVE NEC 04/28/2016 JANAY AGUILERA MD Ot V74.8 SCREEN-BACTERIAL DIS NEC 04/28/2016 ISABELLE KRISHNAMURTHY, HARSH Mckinley Ot 793.80 UNSPEC ABNORMAL MAMMOGRAM 04/28/2016 JANAY AGUILERA MD Ot 592.0 CALCULUS OF KIDNEY 04/28/2016 BHAVANI GALLAGHER MD Ot 250.00 DIAB RAÚL WO COMPL, TYPE II OR UNSPEC TY 04/28/2016 BHAVANI GALLAGHER MD Ot 401.9 HYPERTENSION NOS 04/28/2016 BHAVANI GALLAGHER MD Ot 733.90 BONE CARTILAGE DIS NOS 04/28/2016 BHAVANI GALLAGHER MD Ot V10.05 HX OF COLONIC MALIGNANCY 04/28/2016 BHAVANI GALLAGHER MD Ot V10.06 HX-RECTAL ANAL MALIGN 04/28/2016 BHAVANI GALLAGHER MD Ot V13.01 PERSONAL HISTORY OF URINARY CALCULI 04/28/2016 BHAVANI GALLAGHER MD Ot V58.67 LONG-TERM (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 04/28/2016 BHAVANI GALLAGHER MD Ot V58.69 OT MED,LT,CURRENT USE 04/28/2016 BHAVANI GALLAGHER MD Ot V67.2 CHEMOTHERAPY FOLLOW-UP 04/28/2016 JANAY AGUILERA MD Ot 592.9 URINARY CALCULUS NOS 04/28/2016 BHAVANI GALLAGHER MD Ot 250.00 DIAB RAÚL WO COMPL, TYPE II OR UNSPEC TY 04/28/2016 BHAVANI GALLAGHER MD Ot 401.9 HYPERTENSION NOS 04/28/2016 BHAVANI GALLAGHER MD Ot 733.90 BONE CARTILAGE DIS NOS 04/28/2016 BHAVANI GALLAGHER MD Ot V10.05 HX OF COLONIC MALIGNANCY 04/28/2016 BHAVANI GALLAGHER MD, Ot V10.06 HX-RECTAL ANAL MALIGN 04/28/2016 BHAVANI GALLAGHER MD, Ot V13.01 PERSONAL HISTORY OF URINARY CALCULI 04/28/2016 BHAVANI GALLAGHER MD, Ot V58.67 LONG-TERM (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 04/28/2016 BHAVANI GALLAGHER MD, Ot V58.69 OTH MED,LT,CURRENT USE 04/28/2016 BHAVANI GALLAGHER MD, Ot V67.2 CHEMOTHERAPY FOLLOW-UP 04/28/2016 ALLA KRISHNAMURTHY, HERB Naik Ot 709.9 SKIN DISORDER NOS 04/28/2016 ALLA KRISHNAMURTHY, HERB Naik Ot V72.84 EXAM PRE-OPERATIVE NOS 04/28/2016 ALLA KRISHNAMURTHY, HERB Naik Ot V74.8 SCREEN-BACTERIAL DIS NEC 04/28/2016 ALE KRISHNAMURTHY, JANAY Robert Ot 592.9 URINARY CALCULUS NOS 04/28/2016 BHAVANI GALLAGHER MD, Ot Z08 ENCNTR FOR FOLLOW-UP EXAM AFTER TRTMT FO 04/28/2016 BHAVANI GALLAGHER MD, Ot Z85.038 PERSONAL HISTORY OF MALIGNANT NEOPLASM O 04/28/2016 Ot Z12.31 ENCNTR SCREEN MAMMOGRAM FOR MALIGNANT NE 04/28/2016 ALE KRISHNAMURTHY, JANAY Robert Ot N20.0 CALCULUS OF KIDNEY 04/28/2016 HARSH WALTON MD Ot R04.2 HEMOPTYSIS 05/10/2016 BHAVANI GALLAGHER MD, Ot Z08 ENCNTR FOR FOLLOW-UP EXAM AFTER TRTMT FO 05/10/2016 BHAVANI GALLAGHER MD, Ot Z85.038 PERSONAL HISTORY OF MALIGNANT NEOPLASM O 05/18/2016 HARSH WALTON MD Ot R04.2 HEMOPTYSIS 05/18/2016 BHAVANI GALLAGHER MD, Ot Z08 ENCNTR FOR FOLLOW-UP EXAM AFTER TRTMT FO 05/18/2016 BHAVANI GALLAGHER MD, Ot Z85.038 PERSONAL HISTORY OF MALIGNANT NEOPLASM O 05/30/2016 HARSH WALTON MD Ot R04.2 HEMOPTYSIS 06/01/2016 BHAVANI GALLAGHER MD Ot E04.2 NONTOXIC MULTINODULAR GOITER 06/01/2016 BHAVANI GALLAGHER MD Ot E11.9 TYPE 2 DIABETES MELLITUS WITHOUT COMPLIC 06/01/2016 BHAVANI GALLAGHER MD, Ot I10 ESSENTIAL (PRIMARY) HYPERTENSION 06/01/2016 BHAVANI GALLAGHER MD, Ot M89.9 DISORDER OF BONE, UNSPECIFIED 06/01/2016 BHAVANI GALLAGHER MD, Ot Z08 ENCNTR FOR FOLLOW-UP EXAM AFTER TRTMT FO 06/01/2016 BHAVANI GALLAGHER MD, Ot Z79.4 HALFWAY (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 06/01/2016 BHAVANI GALLAGHER MD, Ot Z79.899 OTHER HALFWAY (CURRENT) DRUG THERAPY 06/01/2016 BHAVANI GALLAGHER MD, Ot Z85.038 PERSONAL HISTORY OF MALIGNANT NEOPLASM O 06/01/2016 BHAVANI GALLAGHER MD, Ot Z85.048 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, RECT 06/03/2016 BHAVANI GALLAGHER MD, Ot E04.2 NONTOXIC MULTINODULAR GOITER 06/07/2016 BHAVANI GALLAGHER MD, Ot E04.2 NONTOXIC MULTINODULAR GOITER 06/07/2016 BHAVANI GALLAGHER MD, Ot E11.9 TYPE 2 DIABETES MELLITUS WITHOUT COMPLIC 06/07/2016 BHAVANI GALLAGHER MD, Ot I10 ESSENTIAL (PRIMARY) HYPERTENSION 06/07/2016 BHAVANI GALLAGHER MD, Ot M89.9 DISORDER OF BONE, UNSPECIFIED 06/07/2016 BHAVANI GALLAGHER MD, Ot Z08 ENCNTR FOR FOLLOW-UP EXAM AFTER TRTMT FO 06/07/2016 BHAVANI GALLAGHER MD, Ot Z79.4 HALFWAY (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 06/07/2016 BHAVANI GALLAGHER MD, Ot Z79.899 OTHER HALFWAY (CURRENT) DRUG THERAPY 06/07/2016 BHAVANI GALLAGHER MD, Ot Z85.038 PERSONAL HISTORY OF MALIGNANT NEOPLASM O 06/07/2016 BHAVANI GALLAGHER MD, Ot Z85.048 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, RECT 06/16/2016 BHAVANI GALLAGHER MD, Ot C19 MALIGNANT NEOPLASM OF RECTOSIGMOID JUNCT 06/22/2016 BHAVANI GALLAGHER MD, Ot C19 MALIGNANT NEOPLASM OF RECTOSIGMOID JUNCT 06/28/2016 BHAVANI GALLAGHER MD, Ot E04.2 NONTOXIC MULTINODULAR GOITER 06/28/2016 BHAVANI GALLAGHER MD Ot E11.9 TYPE 2 DIABETES MELLITUS WITHOUT COMPLIC 06/28/2016 BHAVANI GALLAGHER MD, Ot I10 ESSENTIAL (PRIMARY) HYPERTENSION 06/28/2016 BHAVANI GALLAGHER MD, Ot M89.9 DISORDER OF BONE, UNSPECIFIED 06/28/2016 BHAVANI GALLAGHER MD, Ot Z08 ENCNTR FOR FOLLOW-UP EXAM AFTER TRTMT FO 06/28/2016 BHAVANI GALLAGHER MD, Ot 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 06/28/2016 BHAVANI GALLAGHER MD, Ot Z79.899 OTHER HALFWAY (CURRENT) DRUG THERAPY 06/28/2016 BHAVANI GALLAGHER MD, Ot Z85.038 PERSONAL HISTORY OF MALIGNANT NEOPLASM O 06/28/2016 BHAVANI GALLAGHER MD, Ot Z85.048 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, RECT 06/28/2016 BHAVANI GALLAGHER MD, Ot E04.2 NONTOXIC MULTINODULAR GOITER 06/29/2016 BHAVANI GALLAGHER MD, Ot E04.2 NONTOXIC MULTINODULAR GOITER 06/29/2016 BHAVANI GALLAGHER MD, Ot E11.9 TYPE 2 DIABETES MELLITUS WITHOUT COMPLIC 06/29/2016 BHAVANI GALLAGHER MD, Ot I10 ESSENTIAL (PRIMARY) HYPERTENSION 06/29/2016 BHAVANI GALLAGHER MD, Ot M89.9 DISORDER OF BONE, UNSPECIFIED 06/29/2016 BHAVANI GALLAGHER MD, Ot Z08 ENCNTR FOR FOLLOW-UP EXAM AFTER TRTMT FO 06/29/2016 BHAVANI GALLAGHER MD, Ot Z79.4 HALFWAY (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 06/29/2016 BHAVANI GALLAGHER MD, Ot Z79.899 OTHER HALFWAY (CURRENT) DRUG THERAPY 06/29/2016 BHAVANI GALLAGHER MD, Ot Z85.038 PERSONAL HISTORY OF MALIGNANT NEOPLASM O 06/29/2016 BHAVANI GALLAGHER MD, Ot Z85.048 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, RECT 06/30/2016 BHAVANI GALLAGHER MD, Ot E04.2 NONTOXIC MULTINODULAR GOITER 06/30/2016 BHAVANI GALLAGHER MD, Ot E11.9 TYPE 2 DIABETES MELLITUS WITHOUT COMPLIC 06/30/2016 BHAVANI GALLAGHER MD, Ot I10 ESSENTIAL (PRIMARY) HYPERTENSION 06/30/2016 BHAVANI GALLAGHER MD, Ot M89.9 DISORDER OF BONE, UNSPECIFIED 06/30/2016 BHAVANI GALLAGHER MD, Ot Z08 ENCNTR FOR FOLLOW-UP EXAM AFTER TRTMT FO 06/30/2016 BHAVANI GALLAGHER MD, Ot 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 06/30/2016 BHAVANI GALLAGHER MD, Ot Z79.899 OTHER HALFWAY (CURRENT) DRUG THERAPY 06/30/2016 BHAVANI GALLAGHER MD, Ot Z85.038 PERSONAL HISTORY OF MALIGNANT NEOPLASM O 06/30/2016 BHAVANI GALLAGHER MD, Ot Z85.048 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, RECT 06/30/2016 BHAVANI GALLAGHER MD, Ot E04.2 NONTOXIC MULTINODULAR GOITER 07/07/2016 BHAVANI GALLAGHER MD, Ot E04.2 NONTOXIC MULTINODULAR GOITER 07/07/2016 BHAVANI GALLAGHER MD, Ot E11.9 TYPE 2 DIABETES MELLITUS WITHOUT COMPLIC 07/07/2016 BHAVANI GALLAGHER MD, Ot I10 ESSENTIAL (PRIMARY) HYPERTENSION 07/07/2016 BHAVANI GALLAGHER MD, Ot M89.9 DISORDER OF BONE, UNSPECIFIED 07/07/2016 BHAVANI GALLAGHER MD, Ot Z08 ENCNTR FOR FOLLOW-UP EXAM AFTER TRTMT FO 07/07/2016 BHAVANI GALLAGHER MD, Ot 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 07/07/2016 BHAVANI GALLAGHER MD, Ot Z79.899 OTHER HALFWAY (CURRENT) DRUG THERAPY 07/07/2016 BHAVANI GALLAGHER MD, Ot Z85.038 PERSONAL HISTORY OF MALIGNANT NEOPLASM O 07/07/2016 BHAVANI GALLAGHER MD, Ot Z85.048 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 CORONARY 08/01/2016 NAYA URIAS MD Ot R07.89 OTHER CHEST PAIN 08/01/2016 NAYA URIAS MD Ot Z82.3 FAMILY HISTORY OF STROKE 08/03/2016 BHAVANI GALLAGHER MD Ot E04.2 NONTOXIC MULTINODULAR GOITER 08/03/2016 BHAVANI GALLAGHER MD Ot E11.9 TYPE 2 DIABETES MELLITUS WITHOUT COMPLIC 08/03/2016 BHAVANI GALLAGHER MD Ot I10 ESSENTIAL (PRIMARY) HYPERTENSION 08/03/2016 BHAVANI GALLAGHER MD, Ot M89.9 DISORDER OF BONE, UNSPECIFIED 08/03/2016 BHAVANI GALLAGHER MD, Ot Z08 ENCNTR FOR FOLLOW-UP EXAM AFTER TRTMT FO 08/03/2016 BHAVANI GALLAGHER MD, Ot Z79.4 HALFWAY (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 08/03/2016 BHAVANI GALLAGHER MD, Ot Z79.899 OTHER HALFWAY (CURRENT) DRUG THERAPY 08/03/2016 BHAVANI GALLAGHER MD, Ot Z85.038 PERSONAL HISTORY OF MALIGNANT NEOPLASM O 08/03/2016 BHAVANI GALLAGHER MD, Ot Z85.048 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 CORONARY 08/03/2016 NAYA URIAS MD Ot R07.89 OTHER CHEST PAIN 08/03/2016 NAYA URIAS MD Ot Z82.3 FAMILY HISTORY OF STROKE 08/04/2016 NAYA URIAS MD Ot E78.2 MIXED HYPERLIPIDEMIA 08/04/2016 NAYA URIAS MD Ot I10 ESSENTIAL (PRIMARY) HYPERTENSION 08/04/2016 NAYA URIAS MD Ot I25.10 ATHSCL HEART DISEASE OF [place] CORONARY 08/04/2016 NAYA URIAS MD Ot R07.89 OTHER CHEST PAIN 08/04/2016 NAYA URIAS MD Ot Z82.3 FAMILY HISTORY OF STROKE 08/23/2016 ISABELLE KRISHNAMURTHY, HARSH Mckinley Ot N60.01 SOLITARY CYST OF RIGHT BREAST 08/23/2016 ISABELLE KRISHNAMURTHY, HARSH Mckinley Ot N64.4 MASTODYNIA 08/23/2016 HARSH WALTON MD Ot N60.01 SOLITARY CYST OF RIGHT BREAST 08/23/2016 HASRH WALTON MD Ot N64.4 MASTODYNIA 08/23/2016 HARSH WALTON MD Ot N60.01 SOLITARY CYST OF RIGHT BREAST 08/23/2016 HARSH WALTON MD Ot N64.4 MASTODYNIA 08/23/2016 BHAVANI GALLAGHER MD, Ot E04.2 NONTOXIC MULTINODULAR GOITER 08/23/2016 BHAVANI GALLAGHER MD, Ot E11.9 TYPE 2 DIABETES MELLITUS WITHOUT COMPLIC 08/23/2016 BHAVANI GALLAGHER MD, Ot I10 ESSENTIAL (PRIMARY) HYPERTENSION 08/23/2016 BHAVANI GALLAGHER MD, Ot M89.9 DISORDER OF BONE, UNSPECIFIED 08/23/2016 BHAVANI GALLAGHER MD, Ot Z08 ENCNTR FOR FOLLOW-UP EXAM AFTER TRTMT FO 08/23/2016 BHAVANI GALLAGHER MD, Ot Z79.4 HALFWAY (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 08/23/2016 BHAVANI GALLAGHER MD, Ot Z79.899 OTHER HALFWAY (CURRENT) DRUG THERAPY 08/23/2016 BHAVANI GALLAGHER MD, Ot Z85.038 PERSONAL HISTORY OF MALIGNANT NEOPLASM O 08/23/2016 BHAVANI GALLAGHER MD, Ot Z85.048 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 CORONARY 08/25/2016 NAYA URIAS MD Ot R07.89 OTHER CHEST PAIN 08/25/2016 NAYA URIAS MD Ot Z82.3 FAMILY HISTORY OF STROKE 08/26/2016 BHAVANI GALLAGHER MD Ot E04.2 NONTOXIC MULTINODULAR GOITER 08/26/2016 BHAVANI GALLAGHER MD Ot E11.9 TYPE 2 DIABETES MELLITUS WITHOUT COMPLIC 08/26/2016 BHAVANI GALLAGHER MD, Ot I10 ESSENTIAL (PRIMARY) HYPERTENSION 08/26/2016 BHAVANI GALLAGHER MD Ot M89.9 DISORDER OF BONE, UNSPECIFIED 08/26/2016 BHAVANI GALLAGHER MD, Ot Z08 ENCNTR FOR FOLLOW-UP EXAM AFTER TRTMT FO 08/26/2016 BHAVANI GALLAGHER MD, Ot 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 08/26/2016 BHAVANI GALLAGHER MD, Ot Z79.899 OTHER SULFIDE HEAD OPERATOR (CURRENT) DRUG THERAPY 08/26/2016 BHAVANI GALLAGHER MD, Ot Z85.038 PERSONAL HISTORY OF MALIGNANT NEOPLASM O 08/26/2016 BHAVANI GALLAGHER MD, Ot Z85.048 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 CORONARY 09/02/2016 NAYA URIAS MD Ot R07.89 OTHER CHEST PAIN 09/02/2016 NAYA URIAS MD, Ot Z82.3 FAMILY HISTORY OF STROKE 09/20/2016 ISABELLE KRISHNAMURTHY, HARSH Mckinley Ot N60.01 SOLITARY CYST OF RIGHT BREAST 09/20/2016 HARSH WALTON MD Ot N64.4 MASTODYNIA 09/22/2016 HARSH WALTON MD Ot N60.01 SOLITARY CYST OF RIGHT BREAST 09/22/2016 ISABELLE KRISHNAMURTHY, HARSH Mckinley Ot N64.4 MASTODYNIA 09/30/2016 NAYA URIAS MD Ot E78.2 MIXED HYPERLIPIDEMIA 09/30/2016 NAYA URIAS MD Ot I10 ESSENTIAL (PRIMARY) HYPERTENSION 09/30/2016 NAYA URIAS MD Ot I25.10 ATHSCL HEART DISEASE OF [place] CORONARY 09/30/2016 NAYA URIAS MD Ot R07.89 OTHER CHEST PAIN 09/30/2016 NAYA URIAS MD Ot Z82.3 FAMILY HISTORY OF STROKE 10/11/2016 NAYA URIAS MD Ot E78.2 MIXED HYPERLIPIDEMIA 10/11/2016 NAYA URIAS MD Ot I10 ESSENTIAL (PRIMARY) HYPERTENSION 10/11/2016 NAYA URIAS MD Ot I25.10 ATHSCL HEART DISEASE OF [place] CORONARY 10/11/2016 BRIDGETT KRISHNAMURTHY, NAYA Ross Ot R07.89 OTHER CHEST PAIN 10/11/2016 BRIDGETT KRISHNAMURTHY, NAYA Ross Ot Z82.3 FAMILY HISTORY OF STROKE 10/14/2016 ALE KRISHNAMURTHY, JANAY Robert Ot N20.0 CALCULUS OF KIDNEY 11/28/2016 AEL KRISHNAMURTHY, JANAY A Ot N20.0 CALCULUS OF KIDNEY 12/02/2016 ALE KRISHNAMURTHY, JANAY A Ot N20.0 CALCULUS OF KIDNEY 12/06/2016 [place] KRISHNAMURTHY, HARSH Gomez Ot E11.9 TYPE 2 DIABETES MELLITUS WITHOUT COMPLIC 12/06/2016 HARSH ATKINSON MD Ot I10 ESSENTIAL (PRIMARY) HYPERTENSION 12/06/2016 HARSH ATKINSON MD, Ot M47.812 SPONDYLOSIS W/O MYELOPATHY OR RADICULOPA 12/06/2016 HARSH ATKINSON MD Ot R25.2 CRAMP AND SPASM 12/06/2016 HARSH ATKINSON MD, Ot 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 01/10/2017 JANAY AGUILERA MD Ot N20.0 CALCULUS OF KIDNEY 01/11/2017 JANAY AGUILERA MD A Ot N20.0 CALCULUS OF KIDNEY 08/03/2017 BHAVANI GALLAGHER MD, Ot E04.2 NONTOXIC MULTINODULAR GOITER 08/03/2017 BHAVANI GALLAGHER MD, Ot E11.9 TYPE 2 DIABETES MELLITUS WITHOUT COMPLIC 08/03/2017 BHAVANI GALLAGHER MD, Ot I10 ESSENTIAL (PRIMARY) HYPERTENSION 08/03/2017 BHAVANI GALLAGHER MD, Ot M89.9 DISORDER OF BONE, UNSPECIFIED 08/03/2017 BHAVANI GALLAGHER MD, Ot R19.4 CHANGE IN BOWEL HABIT 08/03/2017 BHAVANI GALLAGHER MD, Ot Z08 ENCNTR FOR FOLLOW-UP EXAM AFTER TRTMT FO 08/03/2017 BHAVANI GALLAGHER MD, Ot 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 08/03/2017 BHAVANI GALLAGHER MD, Ot Z79.899 OTHER HALFWAY (CURRENT) DRUG THERAPY 08/03/2017 BHAVANI GALLAGHER MD, Ot Z85.038 PERSONAL HISTORY OF MALIGNANT NEOPLASM O 08/03/2017 BHAVANI GALLAGHER MD, Ot Z85.048 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, RECT 08/07/2017 BHAVANI GALLAGHER MD, Ot E04.2 NONTOXIC MULTINODULAR GOITER 08/07/2017 BHAVANI GALLAGHER MD, Ot E11.9 TYPE 2 DIABETES MELLITUS WITHOUT COMPLIC 08/07/2017 BHAVANI GALLAGHER MD, Ot I10 ESSENTIAL (PRIMARY) HYPERTENSION 08/07/2017 BHAVANI GALLAGHER MD, Ot M89.9 DISORDER OF BONE, UNSPECIFIED 08/07/2017 BHAVANI GALLAGHER MD, Ot R19.4 CHANGE IN BOWEL HABIT 08/07/2017 BHAVANI GALLAGHER MD, Ot Z08 ENCNTR FOR FOLLOW-UP EXAM AFTER TRTMT FO 08/07/2017 BHAVANI GALLAGHER MD, Ot Z79.4 HALFWAY (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 08/07/2017 BHAVANI GALLAGHER MD, Ot Z79.899 OTHER SULFIDE HEAD OPERATOR (CURRENT) DRUG THERAPY 08/07/2017 BHAVANI GALLAGHER MD, Ot Z85.038 PERSONAL HISTORY OF MALIGNANT NEOPLASM O 08/07/2017 BHAVANI GALLAGHER MD, Ot Z85.048 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, RECT 08/22/2017 HARSH WALTON MD Ot Z12.31 ENCNTR SCREEN MAMMOGRAM FOR MALIGNANT NE 08/22/2017 HARSH WALTON MD Ot Z12.31 ENCNTR SCREEN MAMMOGRAM FOR MALIGNANT NE 08/25/2017 BHAVANI GALLAGHER MD, Ot E04.2 NONTOXIC MULTINODULAR GOITER 08/25/2017 BHAVANI GALLAGHER MD, Ot E11.9 TYPE 2 DIABETES MELLITUS WITHOUT COMPLIC 08/25/2017 BHAVANI GALLAGHER MD, Ot I10 ESSENTIAL (PRIMARY) HYPERTENSION 08/25/2017 BHAVANI GALLAGHER MD, Ot M89.9 DISORDER OF BONE, UNSPECIFIED 08/25/2017 BHAVANI GALLAGHER MD, Ot R19.4 CHANGE IN BOWEL HABIT 08/25/2017 BHAVANI GALLAGHER MD, Ot Z08 ENCNTR FOR FOLLOW-UP EXAM AFTER TRTMT FO 08/25/2017 BHAVANI GALLAGHER MD, Ot Z79.4 HALFWAY (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 08/25/2017 BHAVANI GALLAGHER MD, Ot Z79.899 OTHER HALFWAY (CURRENT) DRUG THERAPY 08/25/2017 BHAVANI GALLAGHER MD Ot Z85.038 PERSONAL HISTORY OF MALIGNANT NEOPLASM O 08/25/2017 BHAVANI GALLAGHER MD, Ot Z85.048 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, RECT 08/31/2017 BHAVANI GALLAGHER MD Ot E04.2 NONTOXIC MULTINODULAR GOITER 08/31/2017 BHAVANI GALLAGHER MD Ot E11.9 TYPE 2 DIABETES MELLITUS WITHOUT COMPLIC 08/31/2017 BHAVANI GALLAGHER MD Ot I10 ESSENTIAL (PRIMARY) HYPERTENSION 08/31/2017 BHAVANI GALLAGHER MD, Ot M89.9 DISORDER OF BONE, UNSPECIFIED 08/31/2017 BHAVANI GALLAGHER MD, Ot R19.4 CHANGE IN BOWEL HABIT 08/31/2017 BHAVANI GALLAGHER MD, Ot Z08 ENCNTR FOR FOLLOW-UP EXAM AFTER TRTMT FO 08/31/2017 BHAVANI GALLAGHER MD, Ot Z79.4 HALFWAY (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 08/31/2017 BHAVANI GALLAGHER MD, Ot Z79.899 OTHER SULFIDE HEAD OPERATOR (CURRENT) DRUG THERAPY 08/31/2017 BHAVANI GALLAGHER MD, Ot Z85.038 PERSONAL HISTORY OF MALIGNANT NEOPLASM O 08/31/2017 BHAVANI GALLAGHER MD, Ot Z85.048 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, RECT 09/12/2017 ISABELLE KRISHNAMURTHY, HARSH Mckinley Ot Z12.31 ENCNTR SCREEN MAMMOGRAM FOR MALIGNANT NE 11/01/2017 ALE KRISNHAMURTHY, JANAY Robert Ot N20.0 CALCULUS OF KIDNEY 11/21/2017 ALE KRISHNAMURTHY, JANAY A Ot N20.0 CALCULUS OF KIDNEY 11/29/2017 JANAY AGUILERA MD A Ot N20.0 CALCULUS OF KIDNEY 01/25/2018 BHAVANI GALLAGHER MD Ot 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, UNSPECIFIED 01/25/2018 BHAVANI GALLAGHER MD, Ot E04.2 NONTOXIC MULTINODULAR GOITER 01/25/2018 BHAVANI GALLAGHER MD, Ot E11.9 TYPE 2 DIABETES MELLITUS WITHOUT COMPLIC 01/25/2018 BHAVANI GALLAGHER MD Ot I10 ESSENTIAL (PRIMARY) HYPERTENSION 01/25/2018 XUN MD, LOVELACE-CHELSEA Ot M89.9 DISORDER OF BONE, UNSPECIFIED 01/25/2018 BHAVANI GALLAGHER MD Ot R19.4 CHANGE IN BOWEL HABIT 01/25/2018 BHAVANI GALLAGHER MD, Ot Z08 ENCNTR FOR FOLLOW-UP EXAM AFTER TRTMT FO 01/25/2018 BHAVANI GALLAGHER MD, Ot 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 01/25/2018 BHAVANI GALLAGHER MD, Ot Z79.899 OTHER HALFWAY (CURRENT) DRUG THERAPY 01/25/2018 BHAVANI GALLAGHER MD, Ot Z85.038 PERSONAL HISTORY OF MALIGNANT NEOPLASM O 01/25/2018 BHAVANI GALLAGHER MD, Ot Z85.048 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, RECT 01/25/2018 BHAVANI GALLAGHER MD Ot 153.9 MALIGNANT EDER COLON NOS 01/25/2018 ISABELLE KRISHNAMURTHY, HARSH Mckinley Ot V76.12 OTH SCREEN MAMMO-MALIGN NEOPLASM OF ALMA 01/25/2018 ALE KRISHNAMURTHY, JANAY Robert Ot 592.0 CALCULUS OF KIDNEY 01/25/2018 JANAY AGUILERA MD A Ot 592.0 CALCULUS OF KIDNEY 01/25/2018 JANAY AGUILERA MD Ot V72.83 EXAM PRE-OPERATIVE NEC 01/25/2018 ALE KRISHNAMURTHY, JANAY Robert Ot V74.8 SCREEN-BACTERIAL DIS NEC 01/25/2018 ISABELLE KRISHNAMURTHY, HARSH Mckinley Ot 793.80 UNSPEC ABNORMAL MAMMOGRAM 01/25/2018 JANAY AGUILERA MD Ot 592.0 CALCULUS OF KIDNEY 01/25/2018 BHAVANI GALLAGHER MD Ot 250.00 DIAB RAÚL WO COMPL, TYPE II OR UNSPEC TY 01/25/2018 BHAVANI GALLAGHER MD Ot 401.9 HYPERTENSION NOS 01/25/2018 BHAVANI GALLAGHER MD Ot 733.90 BONE CARTILAGE DIS NOS 01/25/2018 BHAVANI GALLAGHER MD Ot V10.05 HX OF COLONIC MALIGNANCY 01/25/2018 BHAVANI GALLAGHER MD Ot V10.06 HX-RECTAL ANAL MALIGN 01/25/2018 BHAVANI GALLAGHER MD Ot V13.01 PERSONAL HISTORY OF URINARY CALCULI 01/25/2018 BHAVANI GALLAGHER MD Ot V58.67 LONG-TERM (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 01/25/2018 BHAVANI GALLAGHER MD Ot V58.69 OTH MED,LT,CURRENT USE 01/25/2018 BHAVANI GALLAGHER MD Ot V67.2 CHEMOTHERAPY FOLLOW-UP 01/25/2018 JANAY AGUILERA MD Ot 592.9 URINARY CALCULUS NOS 01/25/2018 BHAVANI GALLAGHER MD Ot 250.00 DIAB RAÚL WO COMPL, TYPE II OR UNSPEC TY 01/25/2018 BHAVANI GALLAGHER MD Ot 401.9 HYPERTENSION NOS 01/25/2018 AILEEN KRISHNAMURTHY, BHAVANI Ot 733.90 BONE CARTILAGE DIS NOS 01/25/2018 BHAVANI GALLAGHER MD Ot V10.05 HX OF COLONIC MALIGNANCY 01/25/2018 BHAVANI GALLAGHER MD Ot V10.06 HX-RECTAL ANAL MALIGN 01/25/2018 BHAVANI GALLAGHER MD Ot V13.01 PERSONAL HISTORY OF URINARY CALCULI 01/25/2018 BHAVANI GALLAGHER MD Ot V58.67 LONG-TERM (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 01/25/2018 BHAVANI GALLAGHER MD Ot V58.69 OTH MED,LT,CURRENT USE 01/25/2018 BHAVANI GALLAGHER MD Ot V67.2 CHEMOTHERAPY FOLLOW-UP 01/25/2018 ALLA KRISHNAMURTHY, HERB Naik Ot 709.9 SKIN DISORDER NOS 01/25/2018 ALLA KRISHNAMURTHY, HERB Naik Ot V72.84 EXAM PRE-OPERATIVE NOS 01/25/2018 ALLA KRISHNAMURTHY, HERB Naik Ot V74.8 SCREEN-BACTERIAL DIS NEC 01/25/2018 JANAY AGUILERA MD Ot 592.9 URINARY CALCULUS NOS 01/25/2018 BHAVANI GALLAGHER MD Ot Z08 ENCNTR FOR FOLLOW-UP EXAM AFTER TRTMT FO 01/25/2018 BHAVANI GALLAGHER MD Ot Z85.038 PERSONAL HISTORY OF MALIGNANT NEOPLASM O 01/25/2018 Ot Z12.31 ENCNTR SCREEN MAMMOGRAM FOR MALIGNANT NE 01/25/2018 JANAY AGUILERA MD Ot N20.0 CALCULUS OF KIDNEY 01/25/2018 BHAVANI GALLAGHER MD Ot C19 MALIGNANT NEOPLASM OF RECTOSIGMOID JUNCT 01/25/2018 ISABELLE KRISHNAMURTHY, HARSH Mckinley Ot R04.2 HEMOPTYSIS 01/25/2018 BHAVANI GALLAGHER MD Ot E04.2 NONTOXIC MULTINODULAR GOITER 01/25/2018 BHAVANI GALLAGHER MD Ot E11.9 TYPE 2 DIABETES MELLITUS WITHOUT COMPLIC 01/25/2018 BHAVANI GALLAGHER MD, Ot I10 ESSENTIAL (PRIMARY) HYPERTENSION 01/25/2018 BHAVANI GALLAGHER MD, Ot M89.9 DISORDER OF BONE, UNSPECIFIED 01/25/2018 BHAVANI GALLAGHER MD, Ot Z08 ENCNTR FOR FOLLOW-UP EXAM AFTER TRTMT FO 01/25/2018 BHAVANI GALLAGHER MD, Ot 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 01/25/2018 BHAVANI GALLAGHER MD, Ot Z79.899 OTHER HALFWAY (CURRENT) DRUG THERAPY 01/25/2018 BHAVANI GALLAGHER MD, Ot Z85.038 PERSONAL HISTORY OF MALIGNANT NEOPLASM O 01/25/2018 BHAVANI GALLAGHER MD, Ot Z85.048 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, RECT 01/25/2018 BHAVANI GALLAGHER MD Ot E04.2 NONTOXIC MULTINODULAR GOITER 01/25/2018 BHAVANI GALLAGHER MD Ot E04.2 NONTOXIC MULTINODULAR GOITER 01/25/2018 BHAVANI GALLAGHER MD Ot E11.9 TYPE 2 DIABETES MELLITUS WITHOUT COMPLIC 01/25/2018 BHAVANI GALLAGHER MD, Ot I10 ESSENTIAL (PRIMARY) HYPERTENSION 01/25/2018 BHAVANI GALLAGHER MD, Ot M89.9 DISORDER OF BONE, UNSPECIFIED 01/25/2018 BHAVANI GALLAGHER MD, Ot Z08 ENCNTR FOR FOLLOW-UP EXAM AFTER TRTMT FO 01/25/2018 BHAVANI GALLAGHER MD, Ot Z79.4 HALFWAY (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 01/25/2018 BHAVANI GALLAGHER MD, Ot Z79.899 OTHER SULFIDE HEAD OPERATOR (CURRENT) DRUG THERAPY 01/25/2018 BHAVANI GALLAGHER MD, Ot Z85.038 PERSONAL HISTORY OF MALIGNANT NEOPLASM O 01/25/2018 BHAVANI GALLAGHER MD, Ot Z85.048 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 CORONARY 01/25/2018 NAYA URIAS MD Ot R07.89 OTHER CHEST PAIN 01/25/2018 NAYA URIAS MD Ot Z82.3 FAMILY HISTORY OF STROKE 01/25/2018 NAYA URIAS MD Ot E78.2 MIXED HYPERLIPIDEMIA 01/25/2018 NAYA URIAS MD Ot I10 ESSENTIAL (PRIMARY) HYPERTENSION 01/25/2018 NAYA URIAS MD Ot I25.10 ATHSCL HEART DISEASE OF [place] CORONARY 01/25/2018 NAYA URIAS MD Ot R07.89 OTHER CHEST PAIN 01/25/2018 NAYA URIAS MD Ot Z82.3 FAMILY HISTORY OF STROKE 01/25/2018 BHAVANI GALLAGHER MD, Ot E04.2 NONTOXIC MULTINODULAR GOITER 01/25/2018 BHAVANI GALLAGHER MD Ot E11.9 TYPE 2 DIABETES MELLITUS WITHOUT COMPLIC 01/25/2018 BHAVANI GALLAGHER MD, Ot I10 ESSENTIAL (PRIMARY) HYPERTENSION 01/25/2018 BHAVANI GALLAGHER MD, Ot M89.9 DISORDER OF BONE, UNSPECIFIED 01/25/2018 BHAVANI GALLAGHER MD, Ot Z08 ENCNTR FOR FOLLOW-UP EXAM AFTER TRTMT FO 01/25/2018 BHAVANI GALLAGHER MD, Ot 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 01/25/2018 BHAVANI GALLAGHER MD, Ot Z79.899 OTHER HALFWAY (CURRENT) DRUG THERAPY 01/25/2018 BHAVANI GALLAGHER MD, Ot Z85.038 PERSONAL HISTORY OF MALIGNANT NEOPLASM O 01/25/2018 BHAVANI GALLAGHER MD, Ot Z85.048 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, RECT 01/25/2018 ISABELLE KRISHNAMURTHY, HARSH Mckinley Ot N60.01 SOLITARY CYST OF RIGHT BREAST 01/25/2018 ISABELLE KRISHNAMURTHY, HARSH Mckinley Ot N64.4 MASTODYNIA 01/25/2018 ALE KRISHNAMURTHY, JANAY Robert Ot N20.0 CALCULUS OF KIDNEY 01/25/2018 BHAVANI GALLAGHER MD Ot 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, UNSPECIFIED 01/25/2018 BHAVANI GALLAGHER MD, Ot E04.2 NONTOXIC MULTINODULAR GOITER 01/25/2018 BHAVANI GALLAGHER MD Ot E11.9 TYPE 2 DIABETES MELLITUS WITHOUT COMPLIC 01/25/2018 BHAVANI GALLAGHER MD, Ot I10 ESSENTIAL (PRIMARY) HYPERTENSION 01/25/2018 BHAVANI GALLAGHER MD, Ot M89.9 DISORDER OF BONE, UNSPECIFIED 01/25/2018 BHAVANI GALLAGHER MD, Ot R19.4 CHANGE IN BOWEL HABIT 01/25/2018 BHAVANI GALLAGHER MD, Ot Z08 ENCNTR FOR FOLLOW-UP EXAM AFTER TRTMT FO 01/25/2018 BHAVANI GALLAGHER MD, Ot Z79.4 HALFWAY (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 01/25/2018 BHAVANI GALLAGHER MD, Ot Z79.899 OTHER SULFIDE HEAD OPERATOR (CURRENT) DRUG THERAPY 01/25/2018 BHAVANI GALLAGHER MD, Ot Z85.038 PERSONAL HISTORY OF MALIGNANT NEOPLASM O 01/25/2018 BHAVANI GALLAGHER MD, Ot Z85.048 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, RECT 01/25/2018 ISABELLE KRISHNAMURTHY, HARSH Mckinley Ot Z12.31 ENCNTR SCREEN MAMMOGRAM FOR MALIGNANT NE 01/25/2018 ALE KRISHNAMURTHY, JANAY Robert Ot N20.0 CALCULUS OF KIDNEY 01/29/2018 ALE KRISHNAMURTHY, JANAY A Ot N20.0 CALCULUS OF KIDNEY 01/30/2018 ALE KRISHNAMURTHY, JANAY A Ot N20.0 CALCULUS OF KIDNEY 02/04/2018 BHAVANI GALLAGHER MD Ot E04.2 NONTOXIC MULTINODULAR GOITER 02/04/2018 BHAVANI GALLAGHER MD, Ot E11.9 TYPE 2 DIABETES MELLITUS WITHOUT COMPLIC 02/04/2018 BHAVANI GALLAGHER MD, Ot I10 ESSENTIAL (PRIMARY) HYPERTENSION 02/04/2018 BHAVANI GALLAGHER MD, Ot M89.9 DISORDER OF BONE, UNSPECIFIED 02/04/2018 BHAVANI GALLAGHER MD, Ot R19.4 CHANGE IN BOWEL HABIT 02/04/2018 BHAVANI GALLAGHER MD, Ot Z08 ENCNTR FOR FOLLOW-UP EXAM AFTER TRTMT FO 02/04/2018 BHAVANI GALLAGHER MD, Ot 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 02/04/2018 BHAVANI GALLAGHER MD, Ot Z79.899 OTHER HALFWAY (CURRENT) DRUG THERAPY 02/04/2018 BHAVANI GALLAGHER MD, Ot Z85.038 PERSONAL HISTORY OF MALIGNANT NEOPLASM O 02/04/2018 BHAVANI GALLAGHER MD, Ot Z85.048 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, RECT 04/02/2018 BHAVANI GALLAGHER MD, Ot E04.2 NONTOXIC MULTINODULAR GOITER 04/02/2018 BHAVANI GALLAGHER MD Ot E11.9 TYPE 2 DIABETES MELLITUS WITHOUT COMPLIC 04/02/2018 BHAVANI GALLAGHER MD, Ot I10 ESSENTIAL (PRIMARY) HYPERTENSION 04/02/2018 BHAVANI GALLAGHER MD, Ot M89.9 DISORDER OF BONE, UNSPECIFIED 04/02/2018 BHAVANI GALLAGHER MD, Ot R19.4 CHANGE IN BOWEL HABIT 04/02/2018 BHAVANI GALLAGHER MD, Ot Z08 ENCNTR FOR FOLLOW-UP EXAM AFTER TRTMT FO 04/02/2018 BHAVANI GALLAGHER MD, Ot Z79.4 HALFWAY (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 04/02/2018 BHAVANI GALLAGHER MD, Ot Z79.899 OTHER SULFIDE HEAD OPERATOR (CURRENT) DRUG THERAPY 04/02/2018 BHAVANI GALLAGHER MD, Ot Z85.038 PERSONAL HISTORY OF MALIGNANT NEOPLASM O 04/02/2018 BHAVANI GALLAGHER MD, Ot Z85.048 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, RECT 04/02/2018 BHAVANI GALLAGHER MD, Ot 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, UNSPECIFIED 04/02/2018 BHAVANI GALLAGHER MD, Ot E04.2 NONTOXIC MULTINODULAR GOITER 04/02/2018 BHAVANI GALLAGHER MD, Ot E11.9 TYPE 2 DIABETES MELLITUS WITHOUT COMPLIC 04/02/2018 BHAVANI GALLAGHER MD, Ot I10 ESSENTIAL (PRIMARY) HYPERTENSION 04/02/2018 BHAVANI GALLAGHER MD, Ot M89.9 DISORDER OF BONE, UNSPECIFIED 04/02/2018 BHAVANI GALLAGHER MD, Ot R19.4 CHANGE IN BOWEL HABIT 04/02/2018 BHAVANI GALLAGHER MD, Ot Z08 ENCNTR FOR FOLLOW-UP EXAM AFTER TRTMT FO 04/02/2018 BHAVANI GALLAGHER MD, Ot Z79.4 HALFWAY (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 04/02/2018 BHAVANI GALLAGHER MD, Ot Z79.899 OTHER HALFWAY (CURRENT) DRUG THERAPY 04/02/2018 BHAVANI GALLAGHER MD, Ot Z85.038 PERSONAL HISTORY OF MALIGNANT NEOPLASM O 04/02/2018 BHAVANI GALLAGHER MD, Ot Z85.048 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, RECT 04/04/2018 BHAVANI GALLAGHER MD Ot E04.2 NONTOXIC MULTINODULAR GOITER 04/04/2018 BHAVANI GALLAGHER MD, Ot E11.9 TYPE 2 DIABETES MELLITUS WITHOUT COMPLIC 04/04/2018 BHAVANI GALLAGHER MD Ot I10 ESSENTIAL (PRIMARY) HYPERTENSION 04/04/2018 BHAVANI GALLAGHER MD, Ot M89.9 DISORDER OF BONE, UNSPECIFIED 04/04/2018 BHAVANI GALLAGHER MD, Ot R19.4 CHANGE IN BOWEL HABIT 04/04/2018 BHAVANI GALLAGHER MD, Ot Z08 ENCNTR FOR FOLLOW-UP EXAM AFTER TRTMT FO 04/04/2018 BHAVANI GALLAGHER MD, Ot Z79.4 HALFWAY (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 04/04/2018 BHAVANI GALLAGHER MD, Ot Z79.899 OTHER HALFWAY (CURRENT) DRUG THERAPY 04/04/2018 BHAVANI GALLAGHER MD, Ot Z85.038 PERSONAL HISTORY OF MALIGNANT NEOPLASM O 04/04/2018 BHAVANI GALLAGHER MD, Ot Z85.048 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, RECT 04/13/2018 NAYA URIAS MD Ot E11.9 TYPE 2 DIABETES MELLITUS WITHOUT COMPLIC 04/13/2018 NAYA URIAS MD Ot E78.5 HYPERLIPIDEMIA, UNSPECIFIED 04/13/2018 NAYA URIAS MD Ot I25.10 ATHSCL HEART DISEASE OF [place] CORONARY 04/13/2018 NAYA URIAS MD Ot R00.2 PALPITATIONS 04/13/2018 NAYA URIAS MD Ot R07.89 OTHER CHEST PAIN 04/17/2018 NAYA URIAS MD Ot E11.9 TYPE 2 DIABETES MELLITUS WITHOUT COMPLIC 04/17/2018 NAYA URIAS MD Ot E78.5 HYPERLIPIDEMIA, UNSPECIFIED 04/17/2018 NAYA URIAS MD Ot I25.10 ATHSCL HEART DISEASE OF [place] CORONARY 04/17/2018 NAYA URIAS MD Ot R00.2 PALPITATIONS 04/17/2018 BRIDGETT KRISHNAMURTHY, NAYA Ross Ot R07.89 OTHER CHEST PAIN 04/18/2018 ALE KRISHNAMURTHY, JANAY Robert Ot N20.0 CALCULUS OF KIDNEY 04/18/2018 ALE KRISHNAMURTHY, JANAY Robert Ot N20.0 CALCULUS OF KIDNEY 04/18/2018 BHAVANI GALLAGHER MD, Ot E04.2 NONTOXIC MULTINODULAR GOITER 04/18/2018 BHAVANI GALLAGHER MD Ot E11.9 TYPE 2 DIABETES MELLITUS WITHOUT COMPLIC 04/18/2018 BHAVANI GALLAGHER MD Ot I10 ESSENTIAL (PRIMARY) HYPERTENSION 04/18/2018 BHAVANI GALLAGHER MD, Ot M89.9 DISORDER OF BONE, UNSPECIFIED 04/18/2018 BHAVANI GALLAGHER MD, Ot R19.4 CHANGE IN BOWEL HABIT 04/18/2018 BHAVANI GALLAGHER MD, Ot Z08 ENCNTR FOR FOLLOW-UP EXAM AFTER TRTMT FO 04/18/2018 BHAVANI GALLAGHER MD, Ot 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 04/18/2018 BHAVANI GALLAGHER MD, Ot Z79.899 OTHER SULFIDE HEAD OPERATOR (CURRENT) DRUG THERAPY 04/18/2018 BHAVANI GALLAGHER MD, Ot Z85.038 PERSONAL HISTORY OF MALIGNANT NEOPLASM O 04/18/2018 BHAVANI GALLAGHER MD, Ot Z85.048 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, RECT Procedures Code Description Performed By Performed On 37.22 LEFT HEART CARDIAC CATH 07/10/2012 88.56 CORONAR ARTERIOGR-2 CATH 07/10/2012 Results Test Result Range Whole blood basic metabolic panel - 10/12/16 09:53 Serum or plasma sodium measurement (moles/volume) 140 mmol/L 135-145 Serum or plasma potassium measurement (moles/volume) 3.9 mmol/L 3.6-5.0 Serum or plasma chloride measurement (moles/volume) 109 mmol/L 98-107 Carbon dioxide 23 mmol/L 21-32 Serum or plasma anion gap determination (moles/volume) 8 mmol/L 5-14 Serum or plasma urea nitrogen measurement (mass/volume) 16 mg/dL 7-18 Serum or plasma creatinine measurement (mass/volume) 1.01 mg/dL 0.60-1.30 Serum or plasma urea nitrogen/creatinine mass ratio 16 NRG Serum or plasma creatinine measurement with calculation of estimated glomerular filtration rate 54 NR Serum or plasma glucose measurement (mass/volume) 206 mg/dL 70-105 Serum or plasma calcium measurement (mass/volume) 9.5 mg/dL 8.5-10.1 Serum or plasma uric acid measurement (mass/volume) - 10/12/16 09:53 Serum or plasma uric acid measurement (mass/volume) 3.1 mg/dL 2.6-7.2 CD3+CD4+ (T4 helper) cells/100 cells in blood - 10/14/16 07:05 Timed urine calcium measurement (mass/volume) 103 % < 250 Urine oxalate detection 32 < 45 Urine uric acid measurement (mass/volume) 243 % < 700 Urine citrate measurement (mass/volume) 62 % > 320 Urine pH measurement 5.2 5.5-7.0 24 hour urine specimen volume measurement 2.11 % > 2.00 Sodium urate/total calculus mass ratio by infrared spectroscopy 45 % < 200 Sulfites [presence] in urine by test strip 8 < 30 Urine phosphate measurement (mass/volume) 654 % < 1100 Urine magnesium measurement (mass/volume) 52 % > 60 Urine calcium oxalate measurement 1.14 < 2.00 Urine calcium phosphate crystals detection by computer assisted method 0.12 < 2.00 24 hour urine sodium urate (saturation fraction) 0.09 < 2.00 Triple phosphate crystals detection in urine sediment by light microscopy 0.01 < 75.00 24 hour urine uric acid (saturation fraction) 1.54 < 2.00 Urine ammonium measurement 44 % 14-62 Urine potassium measurement 38 % 19-135 24 hour urine creatinine measurement (mass/time) 1346 % 600-1800 Clinical stock repairer review of results See Below [facility] HEP C ANTIBODY - 09/23/17 13:17 HEPATITIS C ANTIBODY NON-REACTIVE NON-REACTIVE SIGNAL TO CUT-OFF 0.01 <1.00 Whole blood basic metabolic panel - 10/31/17 15:42 Serum or plasma sodium measurement (moles/volume) 141 mmol/L 135-145 Serum or plasma potassium measurement (moles/volume) 3.6 mmol/L 3.6-5.0 Serum or plasma chloride measurement (moles/volume) 113 mmol/L 98-107 Carbon dioxide 19 mmol/L 21-32 Serum or plasma anion gap determination (moles/volume) 9 mmol/L 5-14 Serum or plasma urea nitrogen measurement (mass/volume) 20 mg/dL 7-18 Serum or plasma creatinine measurement (mass/volume) 1.12 mg/dL 0.60-1.30 Serum or plasma urea nitrogen/creatinine mass ratio 18 NRG Serum or plasma creatinine measurement with calculation of estimated glomerular filtration rate 48 NRG Serum or plasma glucose measurement (mass/volume) 125 mg/dL 70-105 Serum or plasma calcium measurement (mass/volume) 9.7 mg/dL 8.5-10.1 Serum or plasma uric acid measurement (mass/volume) - 10/31/17 15:42 Serum or plasma uric acid measurement (mass/volume) 2.7 mg/dL 2.6-7.2 Serum or plasma phosphate measurement (mass/volume) - 10/31/17 15:42 Serum or plasma phosphate measurement (mass/volume) 2.7 mg/dL 2.3-4.7 CD3+CD4+ (T4 helper) cells/100 cells in blood - 11/02/17 07:00 Timed urine calcium measurement (mass/volume) 95 % < 250 Urine oxalate detection 28 < 45 Urine uric acid measurement (mass/volume) 292 % < 700 Urine citrate measurement (mass/volume) 48 % > 320 Urine pH measurement 5.2 5.5-7.0 24 hour urine specimen volume measurement 1.63 % > 2.00 Sodium urate/total calculus mass ratio by infrared spectroscopy 63 % < 200 Sulfites [presence] in urine by test strip 10 < 30 Urine phosphate measurement (mass/volume) 994 % < 1100 Urine magnesium measurement (mass/volume) 50 % > 60 Urine calcium oxalate measurement 1.07 < 2.00 Urine calcium phosphate crystals detection by computer assisted method 0.21 < 2.00 24 hour urine sodium urate (saturation fraction) 0.25 < 2.00 Triple phosphate crystals detection in urine sediment by light microscopy 0.03 < 75.00 24 hour urine uric acid (saturation fraction) 2.35 < 2.00 Urine ammonium measurement 69 % 14-62 Urine potassium measurement 39 % 19-135 24 hour urine creatinine measurement (mass/time) 1385 % 600-1800 Clinical stock repairer review of results See Below [facility] Automated blood complete blood count (hemogram) panel - 04/18/18 07:05 Blood leukocytes automated count (number/volume) 5.8 10*3/uL 4.3-11.0 Blood erythrocytes automated count (number/volume) 4.27 10*6/uL 4.35-5.85 Venous blood hemoglobin measurement (mass/volume) 14.0 g/dL 11.5-16.0 Blood hematocrit (volume fraction) 41 % 35-52 Automated erythrocyte mean corpuscular volume 95 [foz_us] 80-99 Automated erythrocyte mean corpuscular hemoglobin (mass per erythrocyte) 33 pg 25-34 Automated erythrocyte mean corpuscular hemoglobin concentration measurement ( mass/volume) 35 g/dL 32-36 Automated erythrocyte distribution width ratio 13.4 % 10.0-14.5 Automated blood platelet count (count/volume) 177 10*3/uL 130-400 Automated blood platelet mean volume measurement 9.2 [foz_us] 7.4-10.4 Complete urinalysis with reflex to culture - 04/18/18 07:05 Urine color determination YELLOW NRG Urine clarity determination CLEAR NRG Urine pH measurement by test strip 5 5-9 Specific gravity of urine by test strip 1.020 1.016- 1.022 Urine protein assay by test strip, semi-quantitative 3+ NEGATIVE Urine glucose detection by automated test strip NEGATIVE NEGATIVE Erythrocytes detection in urine sediment by light microscopy NEGATIVE NEGATIVE Urine ketones detection by automated test strip NEGATIVE NEGATIVE Urine nitrite detection by test strip NEGATIVE NEGATIVE Urine total bilirubin detection by test strip NEGATIVE NEGATIVE Urine urobilinogen measurement by automated test strip (mass/volume) NORMAL NORMAL Urine leukocyte esterase detection by dipstick 1+ NEGATIVE Automated urine sediment erythrocyte count by microscopy (number/high power field) NONE NRG Automated urine sediment leukocyte count by microscopy (number/high power field ) [HPF] NRG Bacteria detection in urine sediment by light microscopy TRACE NRG Squamous epithelial cells detection in urine sediment by light microscopy 0-2 NRG Crystals detection in urine sediment by light microscopy NONE NRG Casts detection in urine sediment by light microscopy NONE NRG Mucus detection in urine sediment by light microscopy NEGATIVE NRG Complete urinalysis with reflex to culture NO NRG PT panel in platelet poor plasma by coagulation assay - 04/18/18 07:05 Prothrombin time (PT) in platelet poor plasma by coagulation assay 14.3 s 12.2-14.7 INR in platelet poor plasma or blood by coagulation assay 1.1 0.8-1.4 Activated partial thromboplastin time (aPTT) in platelet poor plasma bycoagulation assay - 04/18/18 07:05 Activated partial thromboplastin time (aPTT) in platelet poor plasma bycoagulation assay 31 s 24-35 Comprehensive metabolic panel - 04/18/18 07:05 Serum or plasma sodium measurement (moles/volume) 142 mmol/L 135-145 Serum or plasma potassium measurement (moles/volume) 3.6 mmol/L 3.6-5.0 Serum or plasma chloride measurement (moles/volume) 111 mmol/L 98-107 Carbon dioxide 20 mmol/L 21-32 Serum or plasma anion gap determination (moles/volume) 11 mmol/L 5-14 Serum or plasma urea nitrogen measurement (mass/volume) 15 mg/dL 7-18 Serum or plasma creatinine measurement (mass/volume) 1.16 mg/dL 0.60-1.30 Serum or plasma urea nitrogen/creatinine mass ratio 13 NRG Serum or plasma creatinine measurement with calculation of estimated glomerular filtration rate 46 NRG Serum or plasma glucose measurement (mass/volume) 99 mg/dL 70-105 Serum or plasma calcium measurement (mass/volume) 10.1 mg/dL 8.5-10.1 Serum or plasma total bilirubin measurement (mass/volume) 0.8 mg/dL 0.1-1.0 Serum or plasma alkaline phosphatase measurement (enzymatic activity/volume) 43 U/L 40-136 Serum or plasma aspartate aminotransferase measurement (enzymatic activity/ volume) 34 U/L 5-34 Serum or plasma alanine aminotransferase measurement (enzymatic activity/volume ) 33 U/L 0-55 Serum or plasma protein measurement (mass/volume) 7.8 g/dL 6.4-8.2 Serum or plasma albumin measurement (mass/volume) 4.5 g/dL 3.2-4.5 CALCIUM CORRECTED 9.7 mg/dL 8.5-10.1 Lipid 1996 panel - 04/18/18 07:05 Serum or plasma triglyceride measurement (mass/volume) 168 mg/dL <150 Serum or plasma cholesterol measurement (mass/volume) 148 mg/dL < 200 Serum or plasma cholesterol in HDL measurement (mass/volume) 54 mg/ dL 40-60 Cholesterol in LDL [mass/volume] in serum or plasma by direct assay 68 mg/dL 1-129 Serum or plasma cholesterol in VLDL measurement (mass/volume) 34 mg/ dL 5-40 Capillary blood glucose measurement by glucometer (mass/volume) - 04/18/18 10: 28 Capillary blood glucose measurement by glucometer (mass/volume) 98 mg/dL 70-110 Encounters ACCT No. Visit Date/Time Discharge Status Pt. Type Provider Facility Loc./Unit Complaint [id number] 03/20/2014 13:57:33 03/20/2014 23:59:59 CLS Outpatient Jamie Terrell [id number] 04/11/2018 06:56:00 04/11/2018 23:59:59 CLS Outpatient NAYA URIAS MD [facility] CARD CAD,CHEST PAIN, PALPITATION [id number] 03/27/2018 08:11:00 03/27/2018 23:59:59 CLS Outpatient NAYA URIAS MD [facility] CARD CAD,CHEST PAIN, PALPITATION [id number] 02/05/2018 01:34:00 02/05/2018 23:59:59 CLS Preadmit BHAVANI GALLAGHER MD [facility] ONC [id number] 01/30/2018 10:27:00 02/04/2018 00:01:00 DIS Outpatient BHAVANI GALLAGHER MD [facility] ONC [id number] 01/30/2018 00:10:00 01/30/2018 23:59:59 CLS Preadmit JANAY AGUILERA MD [facility] LAB RENAL STONES [id number] 10/31/2017 15:22:00 01/29/2018 00:01:00 DIS Outpatient JANAY AGUILERA MD [facility] LAB RENAL STONES [id number] 08/21/2017 08:31:00 08/21/2017 23:59:59 CLS Outpatient HASRH WALTON MD [facility] RAD SCREENING [id number] 08/01/2017 10:40:00 08/01/2017 23:59:59 CLS Outpatient BHAVANI GALLAGHER MD [facility] ONC [id number] 01/11/2017 00:14:00 01/11/2017 23:59:59 CLS Preadmit JANAY AGUILERA MD [facility] RAD STONES [id number] 10/14/2016 08:04:00 01/10/2017 00:01:00 DIS Outpatient JANAY AGUILERA MD [facility] RAD STONES [id number] 08/19/2016 07:21:00 08/19/2016 23:59:59 CLS Outpatient HARSH WALTON MD [facility] RAD SEVERE RT BREAST PAIN [id number] 08/03/2016 07:46:00 08/03/2016 23:59:59 CLS Outpatient NAYA URIAS MD [facility] CARD CAD,CHEST PAIN,HLP,HTN [id number] 08/02/2016 14:12:00 08/02/2016 23:59:59 CLS Outpatient BHAVANI GALLAGHER MD [facility] ONC [id number] 08/01/2016 07:30:00 08/01/2016 23:59:59 CLS Outpatient NAYA URIAS MD [facility] CARD CAD,CHEST PAIN,HLP,HTN [id number] 06/06/2016 09:05:00 06/06/2016 23:59:59 CLS Outpatient BHAVANI GALLAGHER MD [facility] ONC [id number] 06/02/2016 11:54:00 06/02/2016 23:59:59 CLS Outpatient BHAVANI GALLAGHER MD [facility] RAD MULTINODULAR GOITER [id number] 05/31/2016 12:39:00 05/31/2016 23:59:59 CLS Outpatient BHAVANI GALLAGHER MD [facility] ONC [id number] 05/23/2016 09:27:00 05/23/2016 23:59:59 CLS Outpatient BHAVANI GALLAGHER MD [facility] RAD COLORECTAL CA [id number] 04/27/2016 10:17:00 04/27/2016 23:59:59 CLS Outpatient HARSH WALTON MD [facility] RAD COUGH [id number] 04/13/2016 12:49:00 04/13/2016 23:59:59 CLS Outpatient BHAVANI GALLAGHER MD [facility] ONC [id number] 10/05/2015 10:00:00 10/07/2015 09:40:00 DIS Inpatient ISABELLE KRISHNAMURTHY, HARSH Mckinley [facility] 4TH ACUTE RENAL FAILURE [id number] 10/02/2015 08:56:00 10/02/2015 23:59:59 CLS Outpatient JANAY AGUILERA MD [facility] RAD RENAL STONE [id number] 08/22/2015 09:47:00 08/22/2015 12:37:00 DIS Emergency JOHN KRISHNAMURTHY, KAREN Rea [facility] ER FEVER WEAKNESS COUGH [id number] 07/17/2015 08:38:00 07/17/2015 13:48:00 DIS Emergency CHINA KRISHNAMURTHY, HARSH Gomez [facility] ER DIARRHEA/LEG CRAMPS MULTIPLE FALLS [id number] 07/16/2015 22:30:00 07/17/2015 01:30:00 DIS Emergency SHAILA WEST DO [facility] ER DIARRHEA [id number] 04/08/2015 12:51:00 07/07/2015 00:01:00 DIS Outpatient AILEEN KRISHNAMURTHY, BHAVANI [facility] ONC [id number] 09/25/2014 16:16:00 09/25/2014 23:59:59 CLS Outpatient ALE KRISHNAMURTHY, JANAY Robert [facility] RAD STONES [id number] 05/30/2014 10:23:00 05/30/2014 14:05:00 DIS Outpatient HERB GOLD MD [facility] SDC SKIN LESIONS [id number] 05/26/2014 10:16:00 05/26/2014 23:59:59 CLS Outpatient HERB GOLD MD [facility] PREOP SKIN LESIONS [id number] 05/03/2014 19:13:00 05/03/2014 20:51:00 DIS Emergency ISELA KRISHNAMURTHY, JUAN CARLOS Mcqueen [facility] ER HEADACHE;HIGH BLOOD PRESSURE [id number] 04/09/2014 12:39:00 04/09/2014 23:59:59 CLS Outpatient BHAVANI GALLAGHER MD [facility] ONC [id number] 09/20/2013 09:58:00 09/20/2013 23:59:59 CLS Outpatient JANAY AGUILERA MD [facility] RAD STONES [id number] 08/14/2013 12:54:00 08/14/2013 23:59:59 CLS Outpatient BHAVANI GALLAGHER MD [facility] ONC [id number] 07/04/2013 21:10:00 07/05/2013 12:20:00 DIS Inpatient HARSH WALTON MD [facility] CSD CHEST PAIN,HYPERTENSION, MILDLY ELEVATED LIPASE [id number] 02/06/2013 12:41:00 02/06/2013 23:59:59 CLS Outpatient BHAVANI GALLAGHER MD [facility] ONC [id number] 12/04/2012 12:39:00 12/04/2012 23:59:59 CLS Outpatient JANAY AGUILERA MD [facility] RAD LT RENAL STONE POST ESWL [id number] 11/13/2012 07:50:00 11/13/2012 12:10:00 DIS Outpatient JANAY AGUILERA MD [facility] SDC LEFT RENAL STONE [id number] 11/09/2012 09:31:00 11/09/2012 23:59:59 CLS Outpatient JANAY AGUILERA MD [facility] PREOP LEFT RENAL STONE [id number] 11/07/2012 13:47:00 11/07/2012 23:59:59 CLS Outpatient HARSH WALTON MD [facility] RAD ABNORMAL RIGHT MAMMO [id number] 10/26/2012 09:22:00 10/26/2012 23:59:59 CLS Outpatient HARSH WALTON MD [facility] RAD SCREENING [id number] 10/19/2012 10:33:00 10/19/2012 23:59:59 CLS Outpatient JANAY AGUILERA MD [facility] RAD STONES [id number] 04/18/2018 06:48:00 ACT Outpatient NAYA URIAS MD [facility] CATH ABNORMAL STRESS TEST,CP,HTN,HLP [id number] 04/27/2016 10:16:00 Document Registration [id number] 08/18/2015 10:14:00 Document Registration [id number] 08/08/2012 20:52:00 Document Registration [id number] 07/06/2012 19:51:00 Document Registration [id number] 07/05/2012 07:52:00 Document Registration [id number] 05/14/2012 09:46:00 Document Registration [id number] 01/03/2012 08:45:00 Document Registration [id number] 12/27/2011 09:40:00 Document Registration [id number] 10/24/2011 08:43:00 Document Registration [id number] 06/28/2011 10:14:00 Document Registration [id number] 03/22/2011 14:37:00 Document Registration [id number] 12/21/2010 13:46:00 Document Registration [id number] 12/07/2010 07:55:00 Document Registration [id number] 09/23/2017 13:15:00 09/23/2017 23:59:59 [id number] 09/23/2017 13:15:00 Document Registration [id number] 09/26/2014 02:08:14 ACT Document Registration
== END 2018-04-18 13:00 | disposition home or self-care (01) ==
LOC: CATH 06:48
PROVIDERS: ATTEND Internal Medicine Cardiovascular Disease
DX: I25.10 Atherosclerotic heart disease of native coronary artery without angina pectoris (principal); I10 Essential (primary) hypertension; E78.5 Hyperlipidemia, unspecified; E11.9 Type 2 diabetes mellitus without complications; I65.23 Occlusion and stenosis of bilateral carotid arteries; R55 Syncope and collapse; Z82.49 Family history of ischemic heart disease and other diseases of the circulatory system; Z85.038 Personal history of other malignant neoplasm of large intestine; Z79.4 Long term (current) use of insulin; Z79.82 Long term (current) use of aspirin; Z79.899 Other long term (current) drug therapy
CPT/HCPCS: 36415; 71045; 80053; 80061; 81000; 82962; 85027; 85610; 85730; 87081; 93458

== ENCOUNTER 2018-04-29 09:32 | Emergency (ER) | payer MEDICARE ==
[~2018-04-29] VITALS: Ht 165.1 cm; Wt 72.6 kg
[~2018-04-29 09:32] MED LIST changes: +AMLO5TAB7 PO; +INSU100V6 SQ; +VITA400C60 PO
[2018-04-29] MEDS ORDERED: ASPIRIN 81 MG CHEW (CHILDREN'S ASA) PO ONE (09:45)
[2018-04-29] MEDS ORDERED: NS IV 1000 ML 1,000 ML ONE (09:46)
[2018-04-29] MEDS ORDERED: FAMOTIDINE 20MG/2ML IV (PEPCID) ONE (09:46)
[2018-04-29] MEDS ORDERED: ONDANSETRON 4 MG/2 ML (SDV) Z0FRAN ONE (09:46)
[2018-04-29] MEDS ORDERED: FAMOTIDINE 20MG/2ML IV (PEPCID) IV STA (09:46)
[2018-04-29] MEDS ORDERED: NS IV 1000 ML 1,000 ML IV STA (09:46)
[2018-04-29 09:55] LABS: BASOPHILS % (AUTO) 0 % (0-10); EOSINOPHILS # (AUTO) 0.1 10^3/uL (0.0-0.3); EOSINOPHILS % (AUTO) 2 % (0-10); HEMATOCRIT 42 % (35-52); HEMOGLOBIN 14.8 G/DL (11.5-16.0); LYMPHOCYTES # (AUTO) 0.8 X 10^3 (1.0-4.0); LYMPHOCYTES % (AUTO) 9 % (12-44); MEAN CORPUSCULAR HEMOGLOBIN 33 PG (25-34); MEAN CORPUSCULAR HGB CONC 35 G/DL (32-36); MEAN CORPUSCULAR VOLUME 94 FL (80-99); MEAN PLATELET VOLUME 9.2 FL (7.4-10.4); MONOCYTES # (AUTO) 0.6 X 10^3 (0.0-1.0); MONOCYTES % (AUTO) 7 % (0-12); NEUTROPHILS # (AUTO) 7.3 X 10^3 (1.8-7.8); NEUTROPHILS % (AUTO) 83 % (42-75); PLATELET COUNT 217 10^3/uL (130-400); RED CELL DISTRIBUTION WIDTH 13.6 % (10.0-14.5); WHITE BLOOD COUNT 8.9 10^3/uL (4.3-11.0)
[2018-04-29] MEDS ORDERED: ONDANSETRON 4 MG/2 ML (SDV) Z0FRAN IVP ONE (10:00)
--- NOTE | 2018-04-29 10:12 | Diagnostic Imaging Report ---
Portable erect AP chest at 1004h. INDICATION: Vomiting The heart size is within normal limits and stable when compared to 04/18/2018. The lungs remain clear. There is still no sign of failure, pneumonia or a pleural effusion. Mediastinum is not widened. The osseous structures are intact. IMPRESSION: There is no evidence for an acute cardiopulmonary abnormality. Dictated by: Dictated on workstation # [id number]
[2018-04-29 10:14] LABS: ALANINE AMINOTRANSFERASE 25 U/L (0-55); ALBUMIN 4.5 GM/DL (3.2-4.5); ALKALINE PHOSPHATASE 48 U/L (40-136); BILIRUBIN,TOTAL 0.8 MG/DL (0.1-1.0); BUN/CREATININE RATIO 15; CARBON DIOXIDE 15 MMOL/L (21-32); CHLORIDE 109 MMOL/L (98-107); CREATININE SERUM 1.52 MG/DL (0.60-1.30); GFR ESTIMATED 34; GLUCOSE 164 MG/DL (70-105); MAGNESIUM 1.3 MG/DL (1.8-2.4); POTASSIUM 3.8 MMOL/L (3.6-5.0); SODIUM 138 MMOL/L (135-145)
[2018-04-29 10:21] LABS: INR 1.1 (0.8-1.4); MYOGLOBIN SERUM 176.5 NG/ML (10.0-92.0); PROTHROMBIN TIME PATIENT 14.6 SEC (12.2-14.7)
--- NOTE | 2018-04-29 10:37 | ED Chest Pain ---
General Chief Complaint: Abdominal/GI Problems Stated Complaint: VOMITING/CHEST TIGHTNESS Nursing Triage Note: pt presents to er with complaint of nausea, vomiting, increased stool ouput in colostomy, and chest heaviness that radiates to left shoulder. pt states symptoms started last night and that chest pain started this morning. Nursing Sepsis Screen: No Definite Risk Source: patient, family Exam Limitations: no limitations History of Present Illness Date Seen by Provider: Apr 29, 2018 Time Seen by Provider: 09:39 Initial Comments Here with complaint of nausea, vomiting and chest heaviness. Chest heaviness started this morning at about 7 a.m. and has persisted. Nausea and vomiting started around midnight. Notes that the colostomy is having rapid transit of stool. She states that she ate an apple last night and it is artery transmitted through. Does have colostomy due to history of colon cancer and colectomy. Occasionally has dehydration problems which worsens everything. Denies current fevers or breathing problems. Did have a heart catheterization about 2 weeks ago that was reportedly negative and no intervention needed. Reviewing the catheter shows that she does have some mild stenosis and ectatic and small vessel disease but no lesions needed intervention. Timing/Duration: changing over time, other (6-12 hours) Severity/Quality: mild, pressure Location: central Radiation: arms (left arm) Prior CP/Workup: cardiac cath, echocardiography, stress test Modifying Factors: worse with eating; improves with rest ASA po COMPRESSED GAS TESTER: No NTG SL COMPRESSED GAS TESTER: No Associated Symptoms: abdominal pain; No back pain, No diaphoresis, No dizziness ; nausea/vomiting; No shortness of breath, No weakness Allergies and Home Medications Allergies Coded Allergies: levofloxacin (Verified Adverse Reaction, Mild, RASH, 07/06/12) amoxicillin (Unverified Adverse Reaction, Unknown, 05/28/14) YEAST INFECTION latex (Unverified Adverse Reaction, Unknown, 04/18/18) Home Medications Allopurinol 300 Mg Tablet, 300 MG PO DAILY, (Reported) Amlodipine Besylate 5 Mg Tablet, 5 MG PO DAILY, (Reported) Aspirin 81 Mg Tablet.dr, 81 MG PO DAILY, (Reported) Bisoprolol Fumarate 5 Mg Tablet, 5 MG PO DAILY, (Reported) Insulin Aspart 10 Unit/0.1 Ml Vial, 10 UNIT SC AC BREAKFAST, LUNCH, (Reported) Insulin Aspart 10 Unit/0.1 Ml Vial, 15 UNIT SC AT DINNER, (Reported) Insulin Glargine,Hum.rec.anlog 100 Unit/1 Ml Vial, 50 UNIT SQ HS, (Reported) Losartan Potassium 100 Mg Tablet, 100 MG PO DAILY, (Reported) Lovastatin 20 Mg Tablet, 20 MG PO DAILY, (Reported) Multivitamins 1 Ea Tablet, 1 TAB PO DAILY, (Reported) [place] 3 Polyunsat Fatty Acids 1,000 Mg Cap, 1,000 MG PO DAILY, (Reported) Vitamin E Acetate 400 Unit Capsule, 400 UNIT PO DAILY, (Reported) Patient Home Medication List Home Medication List Reviewed: Yes Review of Systems Review of Systems Constitutional: see HPI; No chills, No fever EENTM: No Symptoms Reported Respiratory: Denies Shortness of Air, Denies Wheezing Cardiovascular: Chest Pain; Denies Lightheadedness Gastrointestinal: Abdominal Pain, Nausea, Vomiting Genitourinary: No Symptoms Reported Musculoskeletal: No back pain, No muscle pain, No neck pain Skin: no symptoms reported Psychiatric/Neurological: No Symptoms Reported All Other Systems Reviewed Negative Unless Noted: Yes Past Xhfodgc-Iaeetz-Xepevy Hx Past Med/Social Hx: Reviewed Nursing Past Med/Soc Hx Patient Social History Alcohol Use: Denies Use Recreational Drug Use: No Smoking Status: Never a Smoker Recent Foreign Travel: No Contact w/Someone Who Travel: No Recent Infectious Disease Expo: No Recent Hopitalizations: No Immunizations Up To Date Tetanus Booster (TDap): Unknown PED Vaccines UTD: Yes Date of Pneumonia Vaccine: Jan 06, 2015 Date of Influenza Vaccine: Feb 05, 2018 Past Medical History Surgeries: Yes (ADHESIONS, BOWEL SURGERIES THEN ILEOSTOMY) Hysterectomy Respiratory: Yes (PUNCTURED LUNG FROM PORT PLACEMENT) Cardiac: Yes High Cholesterol, Hypertension Neurological: No Headaches /Migraines 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 Disorders: Yes (HYSTERECTOMY) Sexually Transmitted Disease: No HIV/AIDS: No Kidney Stones Gastrointestinal: Yes (ILEOSTOMY) Obstructive Bowel Musculoskeletal: Yes (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) Chronic Back Pain, Gout Endocrine: Yes (DM TYPE II) Diabetes, Insulin dep Cancer: Yes (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) Colon Psychosocial: No Integumentary: No Blood Disorders: No Adverse Reaction/Blood Tranf: No Family Medical History Reviewed Nursing Family Hx Cancer 03 FATHER, , Onset:60 years & older 03 MOTHER, , Onset:60 years & older 09 BROTHER, , Onset:60 years & older 09 BROTHER, , Onset:60 years & older 09 BROTHER, Onset:60 years & older 09 SISTER, , Onset:60 years & older Cancer of colon 09 BROTHER, , Onset:60 years & older Dementia 09 SISTER, Onset:60 years & older Family history: Diabetes mellitus 09 SISTER, , Onset:60 years & older Heart disease 03 FATHER, , Onset:60 years & older 09 SISTER, , Onset:60 years & older History of - respiratory disease 09 BROTHER, Onset:60 years & older Prostate cancer 09 BROTHER, Onset:60 years & older Stroke 03 MOTHER, , Onset:50's - 60 Heart Disease, Cancer, CVA Physical Exam Vital Signs Vital Signs - First Documented 04/29/18 09:36 Temp 98.6 Pulse 122 Resp 22 B/P (MAP) 162/75 (104) Pulse Ox 94 O2 Delivery Room Air Capillary Refill : Less Than 3 Seconds Height, Weight, BMI Height: 5'5.00" Weight: 160lbs. 0.0oz. [id number]; 26.6 BMI Method:Stated General Appearance: No Apparent Distress, WD/WN HEENT: PERRL/EOMI, Pharynx Normal Neck: Non Tender, Supple Respiratory: Lungs Clear, Normal Breath Sounds Cardiovascular: No Murmur, Tachycardia Gastrointestinal: Non Tender, Soft Extremity: Normal Range of Motion, Non Tender Neurologic/Psychiatric: Alert, Oriented x3 Skin: Normal Color, Warm/Dry Progress/Results/Core Measures Results/Orders Lab Results Laboratory Tests Test 04/29/18 09:45 04/29/18 10:48 04/29/18 12:22 Range/Units White Blood Count 8.9 4.3-11.0 10^3/uL Red Blood Count 4.50 4.35-5.85 10^6/uL Hemoglobin 14.8 11.5-16.0 G/DL Hematocrit 42 35-52 % Mean Corpuscular Volume 94 80-99 FL Mean Corpuscular Hemoglobin 33 25-34 PG Mean Corpuscular Hemoglobin Concent 35 32-36 G/DL Red Cell Distribution Width 13.6 10.0-14.5 % Platelet Count 217 130-400 10^3/uL Mean Platelet Volume 9.2 7.4-10.4 FL Neutrophils (%) (Auto) 83 H 42-75 % Lymphocytes (%) (Auto) 9 L 12-44 % Monocytes (%) (Auto) 7 0-12 % Eosinophils (%) (Auto) 2 0-10 % Basophils (%) (Auto) 0 0-10 % Neutrophils # (Auto) 7.3 1.8-7.8 X 10^3 Lymphocytes # (Auto) 0.8 L 1.0-4.0 X 10^3 Monocytes # (Auto) 0.6 0.0-1.0 X 10^3 Eosinophils # (Auto) 0.1 0.0-0.3 10^3/uL Basophils # (Auto) 0.0 0.0-0.1 10^3/uL Prothrombin Time 14.6 12.2-14.7 SEC INR Comment 1.1 0.8-1.4 Activated Partial Thromboplast Time 30 24-35 SEC Sodium Level 138 135-145 MMOL/L Potassium Level 3.8 3.6-5.0 MMOL/L Chloride Level 109 H 98-107 MMOL/L Carbon Dioxide Level 15 L 21-32 MMOL/L Anion Gap 14 5-14 MMOL/L Blood Urea Nitrogen 23 H 7-18 MG/DL Creatinine 1.52 H 0.60-1.30 MG/DL Estimat Glomerular Filtration Rate 34 BUN/Creatinine Ratio 15 Glucose Level 164 H 70-105 MG/DL Calcium Level 10.0 8.5-10.1 MG/DL Corrected Calcium 9.6 8.5-10.1 MG/DL Magnesium Level 1.3 L 1.8-2.4 MG/DL Total Bilirubin 0.8 0.1-1.0 MG/DL Aspartate Amino Transf (AST/SGOT) 26 5-34 U/L Alanine Aminotransferase (ALT/SGPT) 25 0-55 U/L Alkaline Phosphatase 48 40-136 U/L Myoglobin 176.5 H 179.6 H 10.0-92.0 NG/ML Troponin I < 0.30 < 0.30 <0.30 NG/ML Total Protein 8.0 6.4-8.2 GM/DL Albumin 4.5 3.2-4.5 GM/DL Urine Color YELLOW Urine Clarity CLEAR Urine pH 5 5-9 Urine Specific [place] 1.020 1.016-1.022 Urine Protein 3+ H NEGATIVE Urine Glucose (UA) NEGATIVE NEGATIVE Urine Ketones NEGATIVE NEGATIVE Urine Nitrite NEGATIVE NEGATIVE Urine Bilirubin NEGATIVE NEGATIVE Urine Urobilinogen NORMAL NORMAL MG/DL Urine Leukocyte Esterase 1+ H NEGATIVE Urine RBC (Auto) NEGATIVE NEGATIVE Urine RBC NONE /HPF Urine WBC 2-5 /HPF Urine Squamous Epithelial Cells 0-2 /HPF Urine Crystals PRESENT H /LPF Urine Amorphous Sediment RARE JONATHAN URATES H /LPF Urine Bacteria TRACE /HPF Urine Casts PRESENT /LPF Urine Hyaline Casts 5-10 H /LPF Urine Granular Casts RARE /LPF Urine Mucus NEGATIVE /LPF Urine Culture Indicated YES My Orders Orders - SIRI PERSON MD Cbc With Automated Diff (04/29/18 09:36) Magnesium (04/29/18 09:36) Chest 1 View, Ap/Pa Only (04/29/18 09:36) Ekg Tracing (04/29/18 09:36) Cardiac Profile 1 (04/29/18 09:36) Comprehensive Metabolic Panel (04/29/18 09:36) Myoglobin Serum (04/29/18 09:36) Protime With Inr (04/29/18 09:36) Partial Thromboplastin Time (04/29/18 09:36) O2 (04/29/18 09:36) Monitor-Rhythm Ecg Trace Only (04/29/18 09:36) Lipid Panel (04/30/18 06:00) Aspirin Chewable Tablet (Baby Aspirin Ch (04/29/18 09:45) Saline Lock/Iv-Start (04/29/18 09:36) Ondansetron Injection (Zofran Injectio (04/29/18 10:00) Ns Iv 1000 Ml (Sodium Chloride 0.9%) (04/29/18 09:46) Famotidine Injection (Pepcid Injection) (04/29/18 09:46) Ondansetron Injection (Zofran Injectio (04/29/18 09:46) Ns Iv 1000 Ml (Sodium Chloride 0.9%) (04/29/18 09:46) Famotidine Injection (Pepcid Injection) (04/29/18 09:46) Ua Culture If Indicated (04/29/18 10:44) Urine Culture (04/29/18 10:48) Nitroglycerin 0.4 Mg Btl 25's (Nitrostat (04/29/18 12:00) Troponin I (04/29/18 12:17) Myoglobin Serum (04/29/18 12:17) Ns Iv 500 Ml (Sodium Chloride 0.9%) (04/29/18 12:20) Medications Given in ED Current Medications Medications Dose Ordered Sig/Ronen Route Start Time Stop Time Status Last Admin Dose Admin Aspirin 324 mg ONCE ONCE PO 04/29/18 09:45 04/29/18 09:46 DC 04/29/18 09:50 324 MG Nitroglycerin 0.4 mg UD PRN SL 04/29/18 12:00 04/29/18 12:22 0.4 MG Ondansetron HCl 4 mg ONCE ONCE IVP 04/29/18 10:00 04/29/18 10:01 DC 04/29/18 09:51 4 MG Sodium Chloride 500 ml @ 0 mls/hr Q0M ONCE IV 04/29/18 12:20 04/29/18 12:21 DC 04/29/18 12:30 500 MLS/HR Vital Signs/I&O 04/29/18 09:36 Temp 98.6 Pulse 122 Resp 22 B/P (MAP) 162/75 (104) Pulse Ox 94 O2 Delivery Room Air Blood Pressure Mean: 104 Progress Progress Note : Progress Note Seen and evaluated. IV, labs, EKG and chest x-ray ordered. ASA 324 mg by mouth ordered. Pepcid 20 mg IV and Zofran 4 mg IV ordered. Normal saline 1 L bolus. Monitor patient. Somewhat improved but still with chest pressure. This is concerning. We will repeat troponin and myoglobin. Nitroglycerin sublingual was initiated. This did help with her pain 1214: I discussed the case with Dr. Simmons. He agrees with repeating troponin and myoglobin. If these are okay then patient may be okay to go home. 1315: Dr. Simmons has seen the patient in the emergency department. Overall labs are negative and patient is improved. She'll be sent home with prescription for ondansetron. Discharged home with return precautions. Patient verbalize understanding instructions and agreement with plan. Patient feels much better currently. Initial ECG Impression Date: Apr 29, 2018 Initial ECG Impression Time: 09:42 Initial ECG Rate: 105 Initial ECG Rhythm: S.Tach Comment Sinus tachycardia with LVH. No evidence of ST elevation FL. Unchanged from previous of 22 August 2015. Interpreted by me. Diagnostic Imaging Diagonstic Imaging: Xray Plain Films/CT/US/NM/MRI: chest Comments [facility], [facility]. [place], [place] NAME: BALDO NGUYEN [employer] REC#: [id number] PT STATUS: REG ER : 1945 PHYSICIAN: SIRI PERSON MD ADMIT DATE: 04/29/18/ER Draft Date of Exam:04/29/18 CHEST 1 VIEW, AP/PA ONLY Portable erect AP chest at 1004h. INDICATION: Vomiting The heart size is within normal limits and stable when compared to 04/18/2018. The lungs remain clear. There is still no sign of failure, pneumonia or a pleural effusion. Mediastinum is not widened. The osseous structures are intact. IMPRESSION: There is no evidence for an acute cardiopulmonary abnormality. Dictated on workstation # [id number] Dict: 04/29/18 1010 Trans: 04/29/18 1012 [facility] [id number] Interpreted by: MARCELO FIGUEROA MD Electronically signed by: Departure Impression Primary Impression: Nausea and vomiting Qualified Codes: R11.14 - Bilious vomiting Additional Impression: Chest pain Disposition: 01 HOME, SELF-CARE Condition: Improved Departure-Patient Inst. Decision time for Depature: 13:29 Referrals: HARSH SIMMONS MD (PCP/Family) Primary Care Physician Patient Instructions: Acute Abdomen (Belly Pain), Adult (DC), Chest Pain (DC), Nausea and Vomiting, Adult (DC) Add. Discharge Instructions: All discharge instructions reviewed with patient and/or family. Voiced understanding. Follow-up with your doctor as instructed. Take medications as directed. Clear liquid or light diet for the next 24 hours and then advance as tolerated. Return for worse pain, breathing problems, fever, vomiting, blood in your stool , weakness or other concerns as needed. Scripts Ondansetron (Ondansetron Odt) 4 Mg Tab.rapdis 4 MG PO Q6H PRN for NAUSEA/VOMITING, #10 TAB 0 Refills Prov: SIRI PERSON MD 04/29/18 SIRI PERSON MD Apr 29, 2018 10:37
[2018-04-29 11:10] LABS: BILIRUBIN,URINE NEGATIVE (NEGATIVE); CLARITY,URINE CLEAR; COLOR,URINE YELLOW; GLUCOSE, URINE (UA) NEGATIVE (NEGATIVE); KETONES,URINE NEGATIVE (NEGATIVE); LEUKOCYTE ESTERASE ,URINE 1+ (NEGATIVE); NITRITE,URINE NEGATIVE (NEGATIVE); PH,URINE 5 (5-9); PROTEIN,URINE 3+ (NEGATIVE); UROBILINOGEN,URINE NORMAL (NORMAL)
[2018-04-29 11:36] LABS: BACTERIA,URINE TRACE /HPF; SQUAMOUS EPITHELIAL CELL,UR 0-2 /HPF
[2018-04-29 11:37] LABS: AMORPHOUS SEDIMENT,UR RARE AMOR URATES /LPF; GRANULAR CASTS,URINE RARE /LPF
[2018-04-29] MEDS: NITROGLYCERIN 0.4 MG SL TABS BTL 25'S SL PRN ×2 (12:15→12:22)
[2018-04-29] MEDS ORDERED: NS IV 500 ML 500 ML IV ONE (12:20)
[2018-04-29 12:52] LABS: MYOGLOBIN SERUM 179.6 NG/ML (10.0-92.0)
[2018-04-29] MEDS ORDERED: ONDA4TAB11 PO (13:31)
[2018-04-29 13:51] VITALS: BP 121/66
== END 2018-04-29 13:51 | disposition home or self-care (01) ==
LOC: EDUNIT# 09:32 → ER 09:33
DX: R11.2 Nausea with vomiting, unspecified (principal); R07.9 Chest pain, unspecified; E78.00 Pure hypercholesterolemia, unspecified; I10 Essential (primary) hypertension; G43.909 Migraine, unspecified, not intractable, without status migrainosus; M10.9 Gout, unspecified; Z85.038 Personal history of other malignant neoplasm of large intestine; Z82.49 Family history of ischemic heart disease and other diseases of the circulatory system; Z86.018 Personal history of other benign neoplasm; Z80.49 Family history of malignant neoplasm of other genital organs; Z87.19 Personal history of other diseases of the digestive system; Z87.442 Personal history of urinary calculi; Z93.3 Colostomy status; Z95.9 Presence of cardiac and vascular implant and graft, unspecified; Z88.0 Allergy status to penicillin; Z91.040 Latex allergy status; Z79.82 Long term (current) use of aspirin; Z79.4 Long term (current) use of insulin; Z90.710 Acquired absence of both cervix and uterus; Z98.890 Other specified postprocedural states
CPT/HCPCS: 36415; 71045; 80053; 81000; 83735; 83874; 84484; 85025; 85610; 85730; 87088; 93005; 93041

== ENCOUNTER → 2018-08-24 | Outpatient (CLI) | payer MEDICARE ==
[~2018-08-24] MED LIST changes: -AMLO5TAB7 PO; +AMLO5TAB9 PO; +LOSA100T57 PO; -LOSA100T8 PO; +LOSA25TA41 PO; -LOSA25TA6 PO; +ONDA4TAB11 PO
--- NOTE | 2018-08-24 19:16 | Diagnostic Imaging Report ---
INDICATION: Routine screening. Comparison is made with prior mammograms from 08/21/2017 and 08/19/2016. 2-D and 3-D bilateral screening mammography was performed with a Computer Aided Detection (CAD) system. FINDINGS: Both breasts remain heterogeneously dense, limiting the sensitivity of mammography. Previously noted circumscribed retroareolar mass on the right is stable. Multiple surgical clips in the upper left breast are again noted. A marker clip in the retroareolar left breast is seen. No new mass or malignant-appearing microcalcifications are identified. The axillae are unremarkable. IMPRESSION: No mammographic features suspicious for malignancy are identified. ACR BI-RADS Category 2: Benign findings. Result letter will be mailed to the patient. Note: At least 10% of breast cancer is not imaged by mammography. Dictated by: Dictated on workstation # [id number]
== END ==
LOC: RAD 09:29
PROVIDERS: ATTEND Internal Medicine
DX: Z12.31 Encounter for screening mammogram for malignant neoplasm of breast (principal)
CPT/HCPCS: 77067

== ENCOUNTER 2018-11-02 08:24 | Outpatient (RCR) | payer MEDICARE ==
[2018-10-31 16:15] LABS: CALCIUM 10.2 MG/DL (8.5-10.1); CREATININE SERUM 1.02 MG/DL (0.60-1.30); POTASSIUM 3.6 MMOL/L (3.6-5.0); URIC ACID 2.4 MG/DL (2.6-7.2)
--- NOTE | 2018-10-31 16:51 | Diagnostic Imaging Report ---
INDICATION: Nephrolithiasis. EXAMINATION: KUB at 3:53 PM. FINDINGS: There are three small calculi projecting over the lower pole of the left kidney. The largest of these is 3 mm. These have not appreciably changed since 10/31/2017. No calculus is seen in the right kidney. IMPRESSION: Left nephrolithiasis. No significant change since 10/31/2017. Dictated by: Dictated on workstation # [id number]
== END 2019-01-29 | disposition home or self-care (01) ==
LOC: LAB 08:24
PROVIDERS: ATTEND Urology
DX: N20.0 Calculus of kidney (principal)
CPT/HCPCS: 36415; 74018; 80048; 82140; 82340; 82507; 82570; 83735; 83945; 83986; 84100; 84105; 84133; 84300; 84392; 84550; 84560

== ENCOUNTER → 2019-02-06 | Outpatient (CLI) | payer MEDICARE ==
[~2019-02-06] MED LIST changes: +BARIUM SUSPENSION 2.1% (VANILLA SILQ) 450 ML PO ONE; +CATHETER FLUSH 10 ML SYR IV PRN; +HOLD METFORMIN - RECEIVED CONTRAST 20 ML VIAL IV SCH; +IOHEXOL 350 MG/ML 100 ML (OMNIPAQUE 350) VIAL IV ONE; +NS 100 ML (IVPB) BAG IV ONE
--- NOTE | 2019-02-06 10:12 | Diagnostic Imaging Report ---
PROCEDURE: CT abdomen and pelvis with contrast. TECHNIQUE: Multiple contiguous axial images were obtained through the abdomen and pelvis after administration of intravenous contrast. Auto Exposure Controls were utilized during the CT exam to meet ALARA standards for radiation dose reduction. INDICATION: Abdominal distention in patient with colorectal cancer. COMPARISON: Comparison is made to examination of 05/23/2016. FINDINGS: There is mild low-density in the liver indicating steatosis. No focal hepatic or splenic lesions are identified. There is questionable mural thickening of the upper stomach however this is not changed compared to previous examination. There is no evidence of gallbladder, pancreatic or adrenal gland abnormality. There are nonobstructing calculi in the lower poles of both kidneys. 1 cm exophytic cyst is again seen along the lateral right kidney. Smaller cortical cysts are seen elsewhere in both kidneys. There is no evidence of free fluid within the abdomen or pelvis. Occasional mildly prominent mesenteric lymph nodes are again present. Mild mesenteric density is stable or slightly improved. No pathologic abdominal or pelvic adenopathy is identified. There has been previous colectomy with right lower quadrant ostomy site similar in appearance. There is accumulation of contrast within the bladder within the rectal surgical bed. There is a small amount of presacral density which is stable as well. IMPRESSION: Stable overall appearance of CT scan of the abdomen and pelvis apart from development of nonobstructing lower pole renal calculi. There is no evidence of urinary tract or intestinal obstruction. Dictated by: Dictated on workstation # [id number]
== END ==
LOC: RAD 08:04
PROVIDERS: ATTEND Internal Medicine Hematology & Oncology
DX: C19 Malignant neoplasm of rectosigmoid junction (principal); N20.0 Calculus of kidney; Z90.49 Acquired absence of other specified parts of digestive tract
CPT/HCPCS: 74177

== ENCOUNTER 2019-02-13 12:34 | Outpatient (RCR) | payer MEDICARE ==
[2019-01-22 09:05] LABS: BASOPHILS % (AUTO) 1 % (0-10); EOSINOPHILS # (AUTO) 0.3 10^3/uL (0.0-0.3); EOSINOPHILS % (AUTO) 6 % (0-10); HEMATOCRIT 39 % (35-52); HEMOGLOBIN 13.3 G/DL (11.5-16.0); LYMPHOCYTES # (AUTO) 1.2 X 10^3 (1.0-4.0); LYMPHOCYTES % (AUTO) 24 % (12-44); MEAN CORPUSCULAR HEMOGLOBIN 33 PG (25-34); MEAN CORPUSCULAR HGB CONC 34 G/DL (32-36); MEAN CORPUSCULAR VOLUME 96 FL (80-99); MEAN PLATELET VOLUME 9.7 FL (7.4-10.4); MONOCYTES # (AUTO) 0.4 X 10^3 (0.0-1.0); MONOCYTES % (AUTO) 9 % (0-12); NEUTROPHILS # (AUTO) 2.9 X 10^3 (1.8-7.8); NEUTROPHILS % (AUTO) 60 % (42-75); PLATELET COUNT 157 10^3/uL (130-400); WHITE BLOOD COUNT 4.8 10^3/uL (4.3-11.0)
[2019-01-22 09:37] LABS: ALBUMIN 4.1 GM/DL (3.2-4.5); BILIRUBIN,TOTAL 0.8 MG/DL (0.1-1.0); CALCIUM 9.9 MG/DL (8.5-10.1); CREATININE SERUM 1.16 MG/DL (0.60-1.30); TOTAL PROTEIN 7.2 GM/DL (6.4-8.2)
[~2019-02-13 12:34] MED LIST changes: -BARIUM SUSPENSION 2.1% (VANILLA SILQ) 450 ML PO ONE; -CATHETER FLUSH 10 ML SYR IV PRN; -HOLD METFORMIN - RECEIVED CONTRAST 20 ML VIAL IV SCH; -IOHEXOL 350 MG/ML 100 ML (OMNIPAQUE 350) VIAL IV ONE; -NS 100 ML (IVPB) BAG IV ONE
[2019-02-19] MEDS ORDERED: ASPI-999 PO (14:21)
[2019-02-19] MEDS ORDERED: INSU100I14 SQ ×2 (14:21)
[2019-02-19] MEDS ORDERED: ALLO300T2 PO (14:21)
[2019-02-19] MEDS ORDERED: MULT1TAB69 PO (14:21)
[2019-02-21] MEDS ORDERED: HYDR-3812 PO (08:30)
[2019-02-22] MEDS ORDERED: CEPH-507 PO (17:58)
[2019-02-22] MEDS ORDERED: ONDA8TAB13 PO (22:37)
[2019-04-18] MEDS ORDERED: METO-333 PEG (16:00)
[2019-04-18] MEDS ORDERED: ENAL5TAB PEG (16:00)
[2019-04-18] MEDS ORDERED: NYST1000 PO (16:00)
[2019-04-18] MEDS ORDERED: SERT50TA9 PO (16:00)
[2019-04-18] MEDS ORDERED: BENZ1LOZ61 MM (16:00)
[2019-04-18] MEDS ORDERED: SODI30SP2 NS (16:00)
[2019-04-18] MEDS ORDERED: LANS30CA PEG (16:00)
[2019-04-18] MEDS ORDERED: FLUT16SP22 NS (16:00)
[2019-04-18] MEDS ORDERED: ENOX40DI13 SQ (16:00)
[2019-04-18] MEDS ORDERED: METO5VIA26 INJ (16:00)
[2019-04-18] MEDS ORDERED: CLON1PAT TD (16:00)
[2019-04-18] MEDS ORDERED: MORP4VIA IV (16:00)
[2019-04-18] MEDS ORDERED: ALBU2.5V4 NEB (16:00)
[2019-04-18] MEDS ORDERED: ONDA2VIA2 IV (16:00)
[2019-04-18] MEDS ORDERED: INSU100V39 SQ (16:00)
[2019-04-18] MEDS ORDERED: OXYB5TAB9 PO (16:00)
[2019-04-18] MEDS ORDERED: FENT50VI IV (16:00)
[2019-04-18] MEDS ORDERED: FENT1PAT57 TD (16:00)
[2019-04-18] MEDS ORDERED: HYDR20VI7 IJ (16:00)
[2019-04-18] MEDS ORDERED: HYDR-700 PO (16:00)
[2019-04-18] MEDS ORDERED: GLUC1KIT IM (16:00)
[2019-04-18] MEDS ORDERED: IPRA3AMP31 NEB ×2 (16:00)
[2019-04-18] MEDS ORDERED: MAGIC MOUTHWASH PO (16:00)
[2019-04-18] MEDS ORDERED: DEXT33GE7 PO (16:00)
[2019-04-22] MEDS ORDERED: MULT1TAB69 PO (13:26)
[2019-04-22] MEDS ORDERED: ALLO300T2 PO (13:26)
[2019-04-22] MEDS ORDERED: VITA400C60 PO (13:26)
[2019-04-22] MEDS ORDERED: ASPI-983 PO (13:26)
[2019-04-22] MEDS ORDERED: INSU100I14 SC (13:26)
[2019-04-22] MEDS ORDERED: AMLO5TAB9 PO (13:26)
[2019-04-22] MEDS ORDERED: INSU100I10 SC (13:26)
[2019-04-22] MEDS ORDERED: LOSA100T57 PO (13:26)
[2019-04-22] MEDS ORDERED: OMG1KC PO (13:26)
[2019-04-22] MEDS ORDERED: BISO5TAB PO (13:26)
[2019-04-22] MEDS ORDERED: INSU100I14 SQ (13:26)
== END 2019-04-22 | disposition home or self-care (01) ==
LOC: ONC 12:34
PROVIDERS: ATTEND Internal Medicine Hematology & Oncology
DX: Z08 Encounter for follow-up examination after completed treatment for malignant neoplasm (principal); Z85.038 Personal history of other malignant neoplasm of large intestine; Z85.048 Personal history of other malignant neoplasm of rectum, rectosigmoid junction, and anus; E11.9 Type 2 diabetes mellitus without complications; I10 Essential (primary) hypertension; Z79.4 Long term (current) use of insulin; Z79.899 Other long term (current) drug therapy
CPT/HCPCS: 80053; 82378; 85025; 99213

== ENCOUNTER 2019-02-19 13:45 | Outpatient (CLI) | payer MEDICARE ==
[~2019-02-19] VITALS: Ht 165.1 cm; Wt 72.4 kg
[2019-02-19 13:55] VITALS: BP 157/75
[2019-02-19] MEDS ORDERED: ASPI-999 PO (14:21)
[2019-02-19] MEDS ORDERED: ALLO300T2 PO (14:21)
[2019-02-19] MEDS ORDERED: INSU100I14 SQ ×2 (14:21)
[2019-02-19] MEDS ORDERED: MULT1TAB69 PO (14:21)
== END 2019-02-19 14:10 | disposition home or self-care (01) ==
LOC: PREOP 13:45
PROVIDERS: ATTEND Surgery
DX: Z01.818 Encounter for other preprocedural examination (principal)
CPT/HCPCS: 87081

== ENCOUNTER 2019-02-21 06:51 | Day surgery (SDC) | payer MEDICARE ==
--- NOTE | 2019-02-18 14:10 | HISTORY AND PHYSICAL ---
DATE OF SERVICE: DATE OF SURGERY: 02/21/2019. ATTENDING PHYSICIAN: Oleg Branham MD and Jreardo Simmons MD HISTORY OF PRESENT ILLNESS: This is a 73-year-old female who was referred over to us for lower abdominal pain. The patient reports this has been going on for the last 2 to 3 months at least, if not longer. She reports that this is crampy in nature and is intermittent. She also reports that she does get some lower abdominal pain that does feel like it radiates around over hips and to her abdomen. She denies any nausea, vomiting as well as no hematuria or dysuria. She does have a history of kidney stones. She also reports that she has a history of colon cancer that was diagnosed in 1996, and at that time underwent an open right hemicolectomy. She reports that she did have a reoccurrence in 2000, and underwent a total colectomy with placement of an ileostomy. She also reports that she also underwent an open complete hysterectomy in 1993, and has had a surgery for adhesions in 1995. She did undergo a CT of the abdomen and pelvis, which did show that she did have some bilateral nonobstructing calculi of both kidneys as well as some questionable mural thickening of the upper stomach; however, was otherwise unremarkable. Upon further questioning, the patient denied any heartburn or reflux and reported that the pain that she was having is different than when she has kidney stones and reports that she has had several kidney stones since having her total colectomy. She reports that her ileostomy is functioning like normal and that she has not had any issues. PAST MEDICAL HISTORY: Colon cancer in 1996, uterine cancer, hypertension, hypercholesterolemia, type 2 diabetes, renal calculi. PAST SURGICAL HISTORY: Open complete hysterectomy in 1993, right hemicolectomy in 1996, total colectomy with placement of an ileostomy in 2000, lithotripsy x2. ALLERGIES: LATEX AND LEVAQUIN. CURRENT MEDICATIONS: Allopurinol 300 mg daily, bisoprolol 5 mg daily, losartan 100 mg daily, lovastatin 20 mg at bedtime, amlodipine 5 mg daily, fish oil 3000 mg daily, potassium citrate b.i.d., Lantus 50 units at bedtime, NovoLog 10 units before breakfast and lunch, 15 units before dinner, vitamin E daily, aspirin 81 mg daily, multivitamin daily. SOCIAL HISTORY: Negative for smoke. Rare for alcohol. FAMILY HISTORY: Mother breast cancer, stroke, and hypertension. Father colon cancer, myocardial infarction, and hypertension. Brother colon cancer. A child with diabetes. PHYSICAL EXAMINATION: VITAL SIGNS: Blood pressure 160/60. Current weight is 158.2, height 5 feet 5 inches. REVIEW OF SYSTEMS GENERAL: This is a well-nourished female in no acute distress. She is not experiencing any shortness of breath or difficulty breathing. No chest pain, palpitations or diaphoresis. No nausea or vomiting. She does report intermittent episodes of lower crampy abdominal pain. She has an ileostomy, currently in place and denies any issues with its functioning. No fever or chills. No recent inadvertent weight loss. All other review of systems negative. PHYSICAL EXAMINATION: CHEST: Clear. Breath sounds bilaterally. HEART: Regular, no murmurs. EXTREMITIES: No lower extremity edema. Negative Homans sign. HEENT: No scleral icterus. No cervical adenopathy. ABDOMEN: Soft, nondistended. There is a midline laparotomy incision as well as the ileostomy. There is no parastomal hernia identified. Upon examination of the incision there is some tenderness on the inferior aspect of the incision and when the patient performs a Valsalva maneuver there does appear to be a palpable lump; however, does appear to be a palpable lump that is painful upon palpation and may be consistent with an incisional hernia. There are no other palpable masses. No organomegaly. SKIN: Warm, dry and pink. NEUROLOGIC: Alert, oriented x3. ASSESSMENT AND PLAN: A 73-year-old female with a lower crampy abdominal pain who is status post complete hysterectomy as well as a total colectomy. She also appears to have bilateral kidney stones at this time. It was discussed with the patient about proceeding with conservative medical management with continuing to monitor this to see if this is related to her kidney stones and to see if the past versus surgical intervention with a diagnostic laparoscopy with possible lysis of adhesions and possible incisional hernia repair. The risks and benefits of the procedure as well as the procedure and home care instructions were explained to the patient. The patient verbalized understanding of instructions and agrees to proceed with the diagnostic laparoscopy as well as a possible lysis of adhesions, and possible hernia repair. It was also explained to the patient that we would also recommend proceeding with an upper EGD due to the mural thickening that was identified on the CT scan to rule out any potential malignancies or other abnormalities of the stomach. Job ID: [id number] DocumentID: [id number] Dictated Date: 02/18/2019 13:32:32 Transformation Manager Date: 02/18/2019 14:10:07 Dictated By: CLARA FAUSTIN APRN
[2019-02-21] VITALS (14 sets, daily range): BP systolic 112–174; BP diastolic 51–82
[~2019-02-21] VITALS: Ht 165 cm; Wt 72.4 kg
[~2019-02-21 06:51] MED LIST changes: +ALLO300T2 PO; +ASPI-999 PO; -BISO5TAB PO; +BISO5TAB3 PO; +INSU100I14 SQ; +MULT1TAB69 PO
[2019-02-21] MEDS ORDERED: proPOfol 200 MG/20 ML (DIPRIVAN) VIAL IV ONE (07:02)
[2019-02-21] MEDS ORDERED: ONDANSETRON 4 MG/2 ML (SDV) Z0FRAN ONE (07:02)
[2019-02-21] MEDS ORDERED: MIDAZOLAM 2 MG/2 ML (VERSED) VIAL ONE (07:02)
[2019-02-21] MEDS ORDERED: LIDOCAINE PF 2% 5 ML (XYLOCAINE) VIAL ONE (07:02)
[2019-02-21] MEDS ORDERED: fentaNYL INJECTION 100 MCG/2 ML AMP ONE (07:02)
[2019-02-21] MEDS ORDERED: DEXAMETHASONE 10 MG/ML (DECADRON) 1 ML VIAL ONE (07:02)
[2019-02-21] MEDS ORDERED: ROCURONIUM 10 MG/ML 5 ML SYRINGE IV ONE (07:02)
[2019-02-21] MEDS ORDERED: ceFAZolin 2 GM IV Premixed 50 ML IV ONE (07:30)
[2019-02-21] MEDS: LACTATED RINGERS 1,000 ML IV PRN ×2 (08:08→10:14)
--- NOTE | 2019-02-21 08:27 | Progress Note-Pre Operative ---
Pre-Operative Progress Note H&P Reviewed The H&P was reviewed, patient examined and no changes noted. Date Seen by Provider: Feb 21, 2019 Time Seen by Provider: 08:25 Date H&P Reviewed: Feb 21, 2019 Time H&P Reviewed: 08:20 Pre-Operative Diagnosis: Abdominal pain, possible incisional hernia, mural thickening of stomach CLARA FAUSTIN APRN Feb 21, 2019 08:27
[2019-02-21] MEDS ORDERED: morphine INJ 10 MG/ML 1ML (SYR OR VIAL) IVP PRN (08:30)
[2019-02-21] MEDS ORDERED: ONDANSETRON 4 MG/2 ML (SDV) Z0FRAN IVP PRN ×2 (08:30→11:30)
[2019-02-21] MEDS ORDERED: HYDROcodone/APAP 5 MG/325 MG (LORTAB) TAB PO ONE (08:30)
[2019-02-21] MEDS ORDERED: ACETAMINOPHEN 325 MG TABLET PO PRN (08:30)
[2019-02-21] MEDS ORDERED: HYDR-3812 PO ×2 (08:30)
--- NOTE | 2019-02-21 08:31 | Discharge Inst-Surgical ---
D/C Lap Instructions-KIDO Reconcile Patient Problems Problems Reviewed?: Yes New, Converted, or Re-Newed RX: RX on Chart Follow Up Appt in 2 weeks Activity as tolerated No driving for 24 hours No driving while on pain medications Incentive Spirometry use every 2 hours while awake Regular Diet Symptoms to Report: Fever over 101 degree F, Nausea/Vomiting Infection Signs and Symptoms to report: Increased redness, Foul odor of wound, Increased drainage Bathing instructions: May shower Operative Area Clean/Dry; Keep incision clean/dry If any problems/questions: Contact your physician or go to Emergency Room CLARA FAUSTIN APRN Feb 21, 2019 08:31
[2019-02-21] MEDS ORDERED: SEVOFLURANE (ULTANE) 15 ML INHAL SOLN ONE ×8 (08:48→11:02)
[2019-02-21] MEDS ORDERED: BUP/EPI 0.5% 1:200,000 (SENSORCAINE) 30 ML VIAL ONE (08:58)
--- NOTE | 2019-02-21 11:00 | Progress Note-Post Operative ---
Post-Operative Progess Note Surgeon (s)/Vp Account Director (s) Surgeon Dr. Donavon Tom M.D. Vp Account Director: Luis Faustin LUMBER STACKER Pre-Operative Diagnosis Abdominal pain, possible incisional hernia, mural thickening of stomach Post-Operative Diagnosis Extensive abdominal adhesions, No hernia, Reflux esophagitis stage II, Mild distal esophageal stricture/schatzki ring, gastroesophageal thickening, mild gastritis. Procedure & Operative Findings Date of Procedure 02/21/19 Procedure Performed/Findings Diagnostic laparoscopy, lysis of adhesions (120 mins), EGD with biopsy Anesthesia Type GET Estimated Blood Loss Estimated blood loss (mL): minimal Specimens/Packing Specimens Removed 1) GE junction 2) Antrum 3) Gastroesophageal thickening LUIS FAUSTIN LUMBER STACKER Feb 21, 2019 11:00
[2019-02-21] MEDS ORDERED: GLYCOPYRROLATE 0.2 MG/ML (ROBINUL) 2 ML VIAL ONE ×2 (11:01)
[2019-02-21] MEDS ORDERED: NEOSTIGMINE 3 MG/3 ML VIAL ONE (11:01)
[2019-02-21] MEDS ORDERED: HYDROmorphone 2 MG/ML VIAL (DILAUDID) IV ONE (11:30)
[2019-02-21] MEDS ORDERED: morphine INJ 10 MG/ML 1ML (SYR OR VIAL) IVP ONE (11:30)
--- NOTE | 2019-02-21 11:59 | Anesthesia-General Post-Op ---
General Patient Condition Mental Status/LOC: Same as Preop Cardiovascular: Satisfactory Nausea/Vomiting: Absent Respiratory: Satisfactory Pain: Controlled Complications: Absent Post Op Complications Complications None Follow Up Care/Instructions Patient Instructions None needed. Anesthesia/Patient Condition Patient Condition Patient is doing well, no complaints, stable vital signs, no apparent adverse anesthesia problems. No complications reported per nursing. TWIN JACKMAN CRNA Feb 21, 2019 11:59
--- NOTE | 2019-02-21 14:44 | OPERATIVE REPORT ---
DATE OF SERVICE: 02/21/2019 ATTENDING PRIMARY CARE PHYSICIAN: Jerardo Simmons MD PREOPERATIVE DIAGNOSES: Abdominal pain, thickening of the proximal stomach identified on CT scan, possible ventral abdominal incisional hernia. POSTOPERATIVE DIAGNOSES: Dense intra-abdominal adhesions. No hernias identified. The stomach appeared grossly normal as did the gallbladder. Reflux esophagitis stage II with a mild distal esophageal stricture, Schatzki's ring, gastroesophageal thickening, which appeared to be submucosal. This did not appear to be an exophytic mucosal lesion. Mild gastritis. No distal obstructions. PROCEDURE: Diagnostic laparoscopy, extensive lysis of adhesions, which took 120 minutes, EGD with biopsy. SURGEON: Edis Pearson MD VETERINARY TOXICOLOGIST: Luis Calderón APRN ANESTHESIA: General endotracheal. ESTIMATED BLOOD LOSS: Minimal. FINDINGS: Same as postoperative diagnoses. DISPOSITION: The patient tolerated the procedure well. INDICATIONS: The patient is a 73-year-old female who was referred over to us for lower crampy abdominal pain for the past several months. She states that this is intermittent in nature and then radiates towards bilateral hips. 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 She does not report any hematuria or dysuria. She does have a history of nephrolithiasis; however, reports that the discomfort that she has had in the past several months is different from the pain related to her multiple previous episodes of nephrolithiasis. She also does have a history of colon cancer and was identified to have a lesion of the right colon in 1996 and underwent open right hemicolectomy. However, it appeared that she was found to have another colon cancer and underwent a completion total proctocolectomy. She also does have a strong family history of cancers including mother with breast cancer, father with colon cancer and a brother with colon cancer. A CT scan was performed, which did show questionable mural thickening of the upper portion of the stomach; however, unremarkable. Upon examination, she did have significant pain in the lower aspect of the abdomen along the previous midline laparotomy incision. It was hard to discern if there was a palpable hernia it is due to the discomfort. DESCRIPTION OF PROCEDURE: The patient was brought to the operating room, laid supine on the table. After adequate IV pain and sedative medications and general endotracheal intubation, the abdomen was prepped and draped in standard surgical fashion. A 0.5% Marcaine with epinephrine was then used to anesthetize overlying skin in the left upper abdominal quadrant and a transverse skin incision made using a 15 blade. An 0 silk suture was applied to the medial aspect of incision for retraction and a Veress needle was inserted with a low opening pressure of 0 mmHg and the abdomen was then insufflated to 15 mmHg pressure. The Veress needle removed and a 5 mm Xcel trocar placed followed by a 5 mm 45-degree angle laparoscope. A 4-quadrant abdominal exploration was performed. There were extensive intraabdominal adhesions, which encompassed the majority of her abdominal wall and along her midline laparotomy incision. Not much could be visualized at that time. We then proceeded to place two 5 mm left lateral ports under direct visualization after the skin and peritoneal lining were anesthetized using 0.5% Marcaine with epinephrine and transverse skin incision was made using a 15 blade. The patient was then placed in Trendelenburg position. We then proceeded with a systematic and methodical dissection of the adhesion tissue. This did encompass omentum, stomach as well as small bowel. We started superior and ended in the pelvis. The ileostomy was identified and spared throughout the process. There were no interloop adhesions within the pelvis. There were no hernias identified along the abdominal wall. The gallbladder and liver appeared normal. The stomach was visualized and there did not appear to be any gross abnormalities nor any masses. No hiatal hernia was identified. There was a small accessory spleen on the mesetery of the greather curvature of the stomach. The duration of the lysis of adhesions of the abdominal wall and the small bowel took approximately 120 minutes. Good hemostasis was observed. The abdomen was then desufflated and the ports removed. All skin incisions were closed using 4-0 Monocryl running subcuticular sutures. Under the same anesthesia, we then proceeded with the EGD portion of the procedure. The mouthpiece was applied. The endoscope was placed in the mouth, visualizing the pharynx and hypopharyngeal region. Vocal cords, epiglottis and vallecula identified and appeared to be normal. The endoscope was then gently intubated into the esophageal opening and esophagus insufflated. The endoscope was then advanced to the first, second and third portions of the esophagus. At the level of GE junction, a reflux esophagitis stage II identified. There was a mild distal esophageal stricture and Schatzki's ring also identified. This was biopsied with forceps with visualization of good hemostasis. The endoscope was then advanced into the stomach and endoscope retroflexed visualizing no hiatal hernia. There was a thickened rim near the gastroesophageal junction. This did not appear to be mucosal and appeared more in the deeper layers. This was soft and movable and may represent a submucosal lipoma. This was biopsied as well using forceps. A mild gastritis was noted. No formal ulcerations, polyps, or any neoplasms. A biopsy was taken of the antrum with forceps with visualization of good hemostasis. The endoscope was then advanced to the pylorus and the first and second portion of the duodenum, which appeared normal with no distal obstructions. The endoscope was then slowly withdrawn while taking a second look and suctioning of residual air with no additional findings. The patient tolerated the procedure well. We will start IV and oral pain medication as well as a clear liquid diet. When she is tolerating clears, has good pain control with oral pain medications, ambulating well, we will discharge her home. She will be instructed to do no heavy lifting or exertion for the next two weeks. Job ID: [id number] DocumentID: [id number] Dictated Date: 02/21/2019 11:30:55 School Nurse Date: 02/21/2019 14:44:18 Dictated By: EDIS PEARSON MD [facility]OSPITALArlen
[2019-02-22] MEDS ORDERED: CEPH-507 PO (17:58)
[2019-02-22] MEDS ORDERED: ONDA8TAB13 PO (22:37)
--- OUTSIDE RECORDS SUMMARY | 2019-03-16 09:05 | XMS REPORT | Clinical Summary ---
Author Author [facility] POS Organization [facility] SP Address Unknown SP Phone Unavailable SP Care Team Providers Care Utility Sales And Service Manager Name Role Phone POS Yazan Bryanna CANTU PCP SP Tyrone Suarez MD Unavailable SP Source Comments Some departments are not documenting in the electronic medical record. If you d o not see the information that you expected, contact Release of Information in [facility] [employer] Information Management department at [phone] for further assistan ce in locating additional records.[facility] Allergies No Known Allergies Medications End Date Status POS Medication Sig Dispensed Refills Start SP Date SP Active SP oxycodone/acetaminophen Take 1-2 Tabs 30 0 200 SP (PERCOCET) 5/325 mg by mouth 9 SP tablet Every 4-6 SP Hours as SP needed for SP Pain. SP Active SP senna/docusate Take 2 Tabs 60 0 200 SP (SENOKOT-S) 8.6/50 mg by mouth 9 SP tablet Twice Daily. SP Active SP levofloxacin (LEVAQUIN) Take 1 Tab by 3 3 200 SP 500 mg tablet mouth Daily. 9 SP Active Problems Problem Noted Date POS Nephrolithiasis 07/10/2008 SP Family History Medical History Relation Name Comments POS Cancer Brother SP Cancer Father SP Cancer Mother SP Stroke Mother SP Diabetes Sister SP Relation Name Status Comments SP Brother SP Father SP Mother SP Sister SP Social History Date POS Tobacco Use Types Packs/Day Years Used SP SP Never Smoker SP Drinks/Week oz/Week Comments POS Alcohol Use SP SP No SP Sex Assigned at Date Recorded SP Not on file SP Industry POS Job Start Date Occupation SP Not on file SP Not on file Not on file SP Travel End POS Travel History Travel Start SP No recent travel history available. SP Last Filed Vital Signs Reading Time Taken Comments POS Vital Sign SP 159/76 07/10/2008 3:01 PM [employer] SP Blood Pressure SP 73 07/10/2008 3:01 PM [employer] SP Pulse SP 37.3 C (99.1 F) 07/10/2008 3:01 PM [employer] SP Temperature SP - - SP Respiratory Rate SP 97% 07/10/2008 3:01 PM [employer] SP Oxygen Saturation SP - - SP Inhaled Oxygen SP Concentration SP 67.4 kg (148 lb 9.6 oz) 07/10/2008 6:03 AM [employer] SP Weight SP 165.1 cm (5' 5") 07/09/2008 10:00 PM [employer] SP Height SP 24.73 07/09/2008 10:00 PM [employer] SP Body Mass Index SP Plan of Treatment Health Maintenance Due Date Last Done Comments POS HEPATITIS C SCREENING 1944 SP DTAP/TDAP VACCINES (1 - 1962 SP Tdap) SP PHYSICAL (COMPREHENSIVE) 1962 SP EXAM SP BREAST CANCER SCREENING 1984 SP COLORECTAL CANCER 1994 SP SCREENING SP SHINGLES RECOMBINANT 1994 SP VACCINE (1 of 2) SP OSTEOPOROSIS 2009 SP SCREENING/MONITORING SP PNEUMONIA (PCV13/PPSV23) 2009 SP VACCINES (1 of 2 - PCV13) SP INFLUENZA VACCINE 12/06/2018 SP Results Not on filefrom Last 3 Months
[2019-04-18] MEDS ORDERED: ENLP5T PEG (16:00)
[2019-04-18] MEDS ORDERED: OXYB5TAB13 PO (16:00)
[2019-04-22] MEDS ORDERED: BISO5TAB3 PO (13:26)
[2019-05-14] MEDS ORDERED: LORA2ORA PO (05:43)
[2019-05-14] MEDS ORDERED: MORP20SO PO (05:43)
== END 2019-02-21 14:00 | disposition home or self-care (01) ==
LOC: SDC 06:51
PROVIDERS: ATTEND Surgery
DX: K29.70 Gastritis, unspecified, without bleeding (principal); K66.0 Peritoneal adhesions (postprocedural) (postinfection); K31.89 Other diseases of stomach and duodenum; K21.0 Gastro-esophageal reflux disease with esophagitis; K22.2 Esophageal obstruction; K76.0 Fatty (change of) liver, not elsewhere classified; I10 Essential (primary) hypertension; E78.5 Hyperlipidemia, unspecified; G47.33 Obstructive sleep apnea (adult) (pediatric); Z88.8 Allergy status to other drugs, medicaments and biological substances; Z88.1 Allergy status to other antibiotic agents; Z91.040 Latex allergy status; Z90.710 Acquired absence of both cervix and uterus; Z79.4 Long term (current) use of insulin; Z79.82 Long term (current) use of aspirin; Z79.899 Other long term (current) drug therapy
CPT/HCPCS: 82962; 88305; 94664

== ENCOUNTER 2019-02-22 15:35 | Emergency (ER) | payer MEDICARE ==
[~2019-02-22] VITALS: Ht 171 cm; Wt 70.0 kg
[~2019-02-22 15:35] MED LIST changes: +HYDR-3812 PO
[2019-02-22] MEDS ORDERED: NS IV 1000 ML 1,000 ML IV ONE (16:27)
[2019-02-22 16:38] LABS: BILIRUBIN,URINE NEGATIVE (NEGATIVE); CLARITY,URINE CLEAR; COLOR,URINE YELLOW; GLUCOSE, URINE (UA) NEGATIVE (NEGATIVE); KETONES,URINE NEGATIVE (NEGATIVE); LEUKOCYTE ESTERASE ,URINE 2+ (NEGATIVE); NITRITE,URINE NEGATIVE (NEGATIVE); PH,URINE 6 (5-9); PROTEIN,URINE 2+ (NEGATIVE)
[2019-02-22 16:39] LABS: BASOPHILS % (AUTO) 0 % (0-10); EOSINOPHILS # (AUTO) 0.1 10^3/uL (0.0-0.3); EOSINOPHILS % (AUTO) 1 % (0-10); HEMATOCRIT 38 % (35-52); HEMOGLOBIN 12.8 G/DL (11.5-16.0); LYMPHOCYTES # (AUTO) 1.5 X 10^3 (1.0-4.0); LYMPHOCYTES % (AUTO) 12 % (12-44); MEAN CORPUSCULAR HEMOGLOBIN 32 PG (25-34); MEAN CORPUSCULAR HGB CONC 34 G/DL (32-36); MEAN CORPUSCULAR VOLUME 96 FL (80-99); MEAN PLATELET VOLUME 9.1 FL (7.4-10.4); MONOCYTES # (AUTO) 1.4 X 10^3 (0.0-1.0); MONOCYTES % (AUTO) 11 % (0-12); NEUTROPHILS # (AUTO) 9.5 X 10^3 (1.8-7.8); NEUTROPHILS % (AUTO) 76 % (42-75); PLATELET COUNT 186 10^3/uL (130-400); RED CELL DISTRIBUTION WIDTH 13.3 % (10.0-14.5); WHITE BLOOD COUNT 12.5 10^3/uL (4.3-11.0)
[2019-02-22] MEDS ORDERED: KETOROLAC 30 MG/ML VIAL IVP ONE (16:45)
[2019-02-22 16:53] LABS: BACTERIA,URINE TRACE /HPF; RBC,URINE 0-2 /HPF
[2019-02-22 16:58] LABS: ALBUMIN 4.1 GM/DL (3.2-4.5); BILIRUBIN,TOTAL 0.4 MG/DL (0.1-1.0); CALCIUM 9.4 MG/DL (8.5-10.1); CREATININE SERUM 1.38 MG/DL (0.60-1.30); POTASSIUM 4.1 MMOL/L (3.6-5.0)
[2019-02-22] MEDS ORDERED: LACTATED RINGERS 1,000 ML IV ONE (17:00)
[2019-02-22] MEDS ORDERED: cefTRIAXone FOR IV USE 1,000 MG in WATER (STERILE) FOR INJECTION 10 ML IV ONE (17:30)
[2019-02-22] MEDS ORDERED: CEPH-507 PO (17:58)
--- NOTE | 2019-02-22 17:59 | ED Abdominal Pain ---
General Chief Complaint: Abdominal/GI Problems Stated Complaint: PAIN LOWER ABD Nursing Triage Note: patient verbalized had adhesions removed here a [facility] by Dr. Tom. Pt had small incisions with glue intact. complaint of pain, lower abd. pt states hx of dehydration, states urinated a small amount yestserday and today. states this morning when she urinated it "burned" Sepsis Screen: No Definite Risk Source of Information: Patient Exam Limitations: No Limitations History of Present Illness Date Seen by Provider: Feb 22, 2019 Time Seen by Provider: 15:41 Initial Comments This 73-year-old woman presents to the emergency room with complaints of lower abdominal pain, dysuria, and decreased urine output since having surgery yesterday with Dr. Tom. She had extensive lysis of adhesions and EGD pe rformed. She has a colostomy and has had positive bowel and gas output. She states the hydrocodone prescribed is not controlling her pain. No vomiting or diarrhea. No fevers. Allergies and Home Medications Allergies Coded Allergies: levofloxacin (Verified Adverse Reaction, Mild, RASH, 07/06/12) amoxicillin (Unverified Adverse Reaction, Unknown, 05/28/14) YEAST INFECTION latex (Unverified Adverse Reaction, Unknown, 04/18/18) Home Medications Allopurinol 300 Mg Tablet, 300 MG PO DAILY, (Reported) Amlodipine Besylate 5 Mg Tablet, 5 MG PO DAILY, (Reported) Aspirin 81 Mg Tab.chew, 81 MG PO DAILY, (Reported) Bisoprolol Fumarate 5 Mg Tablet, 5 MG PO DAILY, (Reported) Cephalexin 500 Mg Capsule, 500 MG PO TID Prescribed by: JUAN CARLOS RUBALCAVA on 02/22/19 1758 Hydrocodone/Acetaminophen 1 Each Tablet, 1-2 TAB PO Q6H Prescribed by: CLARA FAUSTIN on 02/21/19 0830 Insulin Aspart 300 Units/3 Ml Solution, 10 UNITS SQ 0800,1200, (Reported) Insulin Aspart 300 Units/3 Ml Solution, 15 UNITS SQ 1800, (Reported) Insulin Glargine,Hum.rec.anlog 100 Unit/1 Ml Vial, 50 UNIT SQ HS, (Reported) Losartan Potassium 100 Mg Tablet, 100 MG PO DAILY, (Reported) Lovastatin 20 Mg Tablet, 20 MG PO HS, (Reported) Multivitamin 1 Each Tablet, 1 EACH PO DAILY, (Reported) Crystal 3 Polyunsat Fatty Acids 1,000 Mg Cap, 1,000 MG PO DAILY, (Reported) Vitamin E Acetate 400 Unit Capsule, 400 UNIT PO DAILY, (Reported) Patient Home Medication List Home Medication List Reviewed: Yes Review of Systems Review of Systems Constitutional: no symptoms reported EENTM: No Symptoms Reported Respiratory: No Symptoms Reported Cardiovascular: No Symptoms Reported Gastrointestinal: See HPI Genitourinary: See HPI Musculoskeletal: no symptoms reported Skin: no symptoms reported Psychiatric/Neurological: No Symptoms Reported Endocrine: No Symptoms Reported Hematologic/Lymphatic: No Symptoms Reported Past Flpkptd-Beamdz-Seorgf Hx Past Med/Social Hx: Reviewed and Corrections made Patient Social History Recent Foreign Travel: No Contact w/Someone Who Travel: No Recent Infectious Disease Expo: No Recent Hopitalizations: No Immunizations Up To Date Tetanus Booster (TDap): Unknown PED Vaccines UTD: Yes Date of Pneumonia Vaccine: Jan 06, 2015 Date of Influenza Vaccine: Feb 20, 2018 Seasonal Allergies Seasonal Allergies: No Past Medical History Surgeries: Yes (ADHESIONS, BOWEL SURGERIES THEN ILEOSTOMY) Hysterectomy Respiratory: Yes (PUNCTURED LUNG FROM PORT PLACEMENT) Cardiac: Yes High Cholesterol, Hypertension Neurological: Yes Headaches /Migraines 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 Sexually Transmitted Disease: No HIV/AIDS: No Genitourinary: No Kidney Stones Gastrointestinal: Yes (ILEOSTOMY) Gastroesophageal Reflux, Obstructive Bowel Musculoskeletal: Yes (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) Chronic Back Pain, Gout Endocrine: Yes Diabetes, Insulin dep HEENT: Yes (cataracts removed) Cancer: Yes (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) Colon Did You Recieve Any Treatments: Yes What Type of Treatment Did You: Chemotherapy, Surgical Intervention Psychosocial: No Integumentary: No Blood Disorders: No Adverse Reaction/Blood Tranf: No Family Medical History Cancer 03 FATHER, , Onset:60 years & older 03 MOTHER, , Onset:60 years & older 09 BROTHER, , Onset:60 years & older 09 BROTHER, , Onset:60 years & older 09 BROTHER, Onset:60 years & older 09 SISTER, , Onset:60 years & older Cancer of colon 09 BROTHER, , Onset:60 years & older Dementia 09 SISTER, Onset:60 years & older Family history: Diabetes mellitus 09 SISTER, , Onset:60 years & older Heart disease 03 FATHER, , Onset:60 years & older 09 SISTER, , Onset:60 years & older History of - respiratory disease 09 BROTHER, Onset:60 years & older Prostate cancer 09 BROTHER, Onset:60 years & older Stroke 03 MOTHER, , Onset:50's - 60 Heart Disease, Cancer, CVA Physical Exam Vital Signs Vital Signs - First Documented 02/22/19 15:55 Temp 37.0 Pulse 76 Resp 18 B/P (MAP) 159/68 (98) Pulse Ox 93 O2 Delivery Room Air Capillary Refill : Less Than 3 Seconds Height/Weight/BMI Height: 5'5.00" Weight: 160lbs. 0.0oz. 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, no motor/sensory deficits, alert, normal mood/affect, oriented x 3 Skin: normal color, warm/dry Progress/Results/Core Measures Results/Orders Lab Results Laboratory Tests Test 02/22/19 16:30 Range/Units White Blood Count 12.5 H 4.3-11.0 10^3/uL Red Blood Count 3.95 L 4.35-5.85 10^6/uL Hemoglobin 12.8 11.5-16.0 G/DL Hematocrit 38 35-52 % Mean Corpuscular Volume 96 80-99 FL Mean Corpuscular Hemoglobin 32 25-34 PG Mean Corpuscular Hemoglobin Concent 34 32-36 G/DL Red Cell Distribution Width 13.3 10.0-14.5 % Platelet Count 186 130-400 10^3/uL Mean Platelet Volume 9.1 7.4-10.4 FL Neutrophils (%) (Auto) 76 H 42-75 % Lymphocytes (%) (Auto) 12 12-44 % Monocytes (%) (Auto) 11 0-12 % Eosinophils (%) (Auto) 1 0-10 % Basophils (%) (Auto) 0 0-10 % Neutrophils # (Auto) 9.5 H 1.8-7.8 X 10^3 Lymphocytes # (Auto) 1.5 1.0-4.0 X 10^3 Monocytes # (Auto) 1.4 H 0.0-1.0 X 10^3 Eosinophils # (Auto) 0.1 0.0-0.3 10^3/uL Basophils # (Auto) 0.0 0.0-0.1 10^3/uL Urine Color YELLOW Urine Clarity CLEAR Urine pH 6 5-9 Urine Specific [place] 1.015 L 1.016-1.022 Urine Protein 2+ H NEGATIVE Urine Glucose (UA) NEGATIVE NEGATIVE Urine Ketones NEGATIVE NEGATIVE Urine Nitrite NEGATIVE NEGATIVE Urine Bilirubin NEGATIVE NEGATIVE Urine Urobilinogen NORMAL NORMAL MG/DL Urine Leukocyte Esterase 2+ H NEGATIVE Urine RBC (Auto) NEGATIVE NEGATIVE Urine RBC 0-2 /HPF Urine WBC 10-25 H /HPF Urine Crystals NONE /LPF Urine Bacteria TRACE /HPF Urine Casts NONE /LPF Urine Mucus NEGATIVE /LPF Urine Culture Indicated YES Sodium Level 139 135-145 MMOL/L Potassium Level 4.1 3.6-5.0 MMOL/L Chloride Level 104 98-107 MMOL/L Carbon Dioxide Level 24 21-32 MMOL/L Anion Gap 11 5-14 MMOL/L Blood Urea Nitrogen 28 H 7-18 MG/DL Creatinine 1.38 H 0.60-1.30 MG/DL Estimat Glomerular Filtration Rate 37 BUN/Creatinine Ratio 20 Glucose Level 122 H 70-105 MG/DL Calcium Level 9.4 8.5-10.1 MG/DL Corrected Calcium 9.3 8.5-10.1 MG/DL Total Bilirubin 0.4 0.1-1.0 MG/DL Aspartate Amino Transf (AST/SGOT) 35 H 5-34 U/L Alanine Aminotransferase (ALT/SGPT) 32 0-55 U/L Alkaline Phosphatase 40 40-136 U/L Total Protein 7.0 6.4-8.2 GM/DL Albumin 4.1 3.2-4.5 GM/DL My Orders Orders - JUAN CARLOS WEISS MD Cbc With Automated Diff (02/22/19 15:41) Comprehensive Metabolic Panel (02/22/19 15:41) Ua Culture If Indicated (02/22/19 15:41) Ed Iv/Invasive Line Start (02/22/19 15:41) Ed Iv/Invasive Line Start (02/22/19 16:27) Ns Iv 1000 Ml (Sodium Chloride 0.9%) (02/22/19 16:27) Ketorolac Injection (Toradol Injection) (02/22/19 16:45) Urine Culture (02/22/19 16:30) Lactated Ringers (Lr 1000 Ml Iv Solution (02/22/19 17:00) Ceftriaxone For Iv Use (Rocephin For I (02/22/19 17:30) Medications Given in ED Current Medications Medications Dose Ordered Sig/Ronen Route Start Time Stop Time Status Last Admin Dose Admin Ceftriaxone Sodium 1000 mg/ Sterile Water 10 ml @ 200 mls/hr ONCE ONCE IV 02/22/19 17:30 02/22/19 17:32 DC 02/22/19 17:44 200 MLS/HR Ketorolac Tromethamine 15 mg ONCE ONCE IVP 02/22/19 16:45 02/22/19 16:46 DC 02/22/19 17:00 15 MG Lactated Ringer's 1,000 ml @ 0 mls/hr Q0M ONCE IV 02/22/19 17:00 02/22/19 17:01 DC 02/22/19 17:47 0 MLS/HR Sodium Chloride 1,000 ml @ 0 mls/hr Q0M ONCE IV 02/22/19 16:27 02/22/19 16:28 DC 02/22/19 16:38 0 MLS/HR Vital Signs/I&O 02/22/19 15:55 Temp 37.0 Pulse 76 Resp 18 B/P (MAP) 159/68 (98) Pulse Ox 93 O2 Delivery Room Air Blood Pressure Mean: 98 Progress Progress Note : Progress Note Patient received a liter of IV fluid and Toradol for pain. This significantly improved her subjective status. UTI was identified and Rocephin was administered. Departure Impression Primary Impression: Postoperative pain Additional Impression: Urinary tract infection Qualified Codes: N39.0 - Urinary tract infection, site not specified Disposition: HOME, SELF-CARE Condition: Improved Departure-Patient Inst. Decision time for Depature: 17:56 Referrals: HARSH WALTON MD (PCP/Family) Primary Care Physician Patient Instructions: Postoperative Pain (DC), Urinary Tract Infection, Adult (DC) Add. Discharge Instructions: Drink plenty of clear liquids. Complete your antibiotic as prescribed. You may continue taking hydrocodone as prescribed. For additional pain relief you may add ibuprofen up to 400 mg every 6 hours as needed. Return to care if symptoms are worsening despite these changes. Follow-up with Dr. Tom early next week. All discharge instructions reviewed with patient and/or family. Voiced understanding. Scripts Cephalexin (Keflex) 500 Mg Capsule 500 MG PO TID, #20 CAP Prov: JUAN CARLOS WEISS MD 02/22/19 Copy Copies To 1: EDIS TOM MD Copies To 2: HARSH WALTON MD, JOSHUA T MD Feb 22, 2019 17:58
[2019-02-22 19:00] VITALS: BP 159/68
[2019-02-22] MEDS ORDERED: ONDA8TAB13 PO (22:37)
--- OUTSIDE RECORDS SUMMARY | 2019-03-18 06:12 | XMS REPORT | Clinical Summary ---
Author Author [facility] POS Organization [facility] SP Address Unknown SP Phone Unavailable SP Care Team Providers Care [employer] Crm Developer Name Role Phone POS YazanTdmaria t CANTU PCP SP Tyrone Suarez MD Unavailable SP Source Comments Some departments are not documenting in the electronic medical record. If you d o not see the information that you expected, contact Release of Information in [facility] [employer] Information Management department at [phone] for further assistan ce in locating additional records.[facility] Allergies No Known Allergies Medications End [...] Vital Sign SP 159/76 07/10/2008 3:01 PM [employer]DRO[employer] WORKER SP Blood Pressure SP 73 07/10/2008 3:01 PM [employer]DRO[employer] WORKER SP Pulse SP 37.3 C (99.1 F) 07/10/2008 3:01 PM [employer]DR[employer] WORKER SP Temperature SP - - SP Respiratory Rate SP 97% 07/10/2008 3:01 PM [employer]DRO[employer] WORKER SP Oxygen Saturation SP - - SP Inhaled Oxygen SP Concentration SP 67.4 kg (148 lb 9.6 oz) 07/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
[2019-04-18] MEDS ORDERED: OXYB5TAB13 PO (16:00)
[2019-04-18] MEDS ORDERED: ENLP5T PEG (16:00)
[2019-04-22] MEDS ORDERED: BISO5TAB3 PO (13:26)
[2019-05-14] MEDS ORDERED: MORP20SO PO (05:43)
[2019-05-14] MEDS ORDERED: LORA2ORA PO (05:43)
== END 2019-02-22 19:01 | disposition home or self-care (01) ==
LOC: EDUNIT# 15:35 → ER 15:37
DX: G89.18 Other acute postprocedural pain (principal); R10.30 Lower abdominal pain, unspecified; N39.0 Urinary tract infection, site not specified; I10 Essential (primary) hypertension; E78.00 Pure hypercholesterolemia, unspecified; G43.909 Migraine, unspecified, not intractable, without status migrainosus; K21.9 Gastro-esophageal reflux disease without esophagitis; K58.9 Irritable bowel syndrome, unspecified; E11.9 Type 2 diabetes mellitus without complications; Z87.442 Personal history of urinary calculi; Z93.3 Colostomy status; Z88.1 Allergy status to other antibiotic agents; Z91.040 Latex allergy status; Z79.82 Long term (current) use of aspirin; Z79.4 Long term (current) use of insulin; Z90.710 Acquired absence of both cervix and uterus; Z86.012 Personal history of benign carcinoid tumor; Z80.0 Family history of malignant neoplasm of digestive organs; Z80.42 Family history of malignant neoplasm of prostate
CPT/HCPCS: 36415; 80053; 81000; 85025; 87088; 96374; 96375

== ENCOUNTER 2019-02-22 20:27 | Emergency (ER) | payer MEDICARE ==
[~2019-02-22] VITALS: Ht 165 cm; Wt 70.0 kg
[~2019-02-22 20:27] MED LIST changes: +CEPH-507 PO
[2019-02-22] MEDS ORDERED: fentaNYL INJECTION 100 MCG/2 ML AMP IVP STA (21:19)
--- NOTE | 2019-02-22 21:29 | ED Abdominal Pain ---
General Chief Complaint: Abdominal/GI Problems Stated Complaint: ABD PAIN Nursing Triage Note: lower abdominal pain radiating up left side. reports laproscopic adhesion removal 02/21/19 Sepsis Screen: No Definite Risk Source of Information: Patient Exam Limitations: No Limitations History of Present Illness Date Seen by Provider: Feb 22, 2019 Time Seen by Provider: 21:24 Initial Comments 73-year-old female patient presents with lower abdominal pain radiating up the left abdomen into the left shoulder. Patient had underwent laparoscopic adh esiolysis yesterday by Dr. Tom. Patient was seen earlier this evening in the emergency department by Dr. Clark for similar symptoms. Labs were obtained showing a urinary tract infection. Patient was given Rocephin 1 g IV the and 2 L of IV fluids. Patient discharged to home. Patient reports increased pain since being discharged at 1800 this afternoon. Patient reports burping, but denies passing gas or stool into her ileostomy. Timing/Duration: Getting Worse Severity/Quality: Aching, Cramping Location: Suprapubic Radiation: LUQ, LLQ, Shoulder (left shoulder) Activities at Onset: None Modifying Factors: Worsens With Eating, Worsens With Movement, Worsens With Palpation Allergies and Home Medications Allergies Coded Allergies: levofloxacin (Verified Adverse Reaction, Mild, RASH, 07/06/12) amoxicillin (Unverified Adverse Reaction, Unknown, 05/28/14) YEAST INFECTION latex (Unverified Adverse Reaction, Unknown, 04/18/18) Home Medications Allopurinol 300 Mg Tablet, 300 MG PO DAILY, (Reported) Amlodipine Besylate 5 Mg Tablet, 5 MG PO DAILY, (Reported) Aspirin 81 Mg Tab.chew, 81 MG PO DAILY, (Reported) Bisoprolol Fumarate 5 Mg Tablet, 5 MG PO DAILY, (Reported) Cephalexin 500 Mg Capsule, 500 MG PO TID Prescribed by: JUAN CARLOS CLARK on 02/22/19 1758 Hydrocodone/Acetaminophen 1 Each Tablet, 1-2 TAB PO Q6H Prescribed by: CLARA FAUSTIN on 02/21/19 0830 Insulin Aspart 300 Units/3 Ml Solution, 10 UNITS SQ 0800,1200, (Reported) Insulin Aspart 300 Units/3 Ml Solution, 15 UNITS SQ 1800, (Reported) Insulin Glargine,Hum.rec.anlog 100 Unit/1 Ml Vial, 50 UNIT SQ HS, (Reported) Losartan Potassium 100 Mg Tablet, 100 MG PO DAILY, (Reported) Lovastatin 20 Mg Tablet, 20 MG PO HS, (Reported) Multivitamin 1 Each Tablet, 1 EACH PO DAILY, (Reported) [place] 3 Polyunsat Fatty Acids 1,000 Mg Cap, 1,000 MG PO DAILY, (Reported) Ondansetron 8 Mg Tab.rapdis, 8 MG PO Q6H PRN for NAUSEA/VOMITING Prescribed by: CARTER THOMPSON on 02/22/19 9746 Vitamin E Acetate 400 Unit Capsule, 400 UNIT PO DAILY, (Reported) Patient Home Medication List Home Medication List Reviewed: Yes Review of Systems Review of Systems Constitutional: No chills, No diaphoresis, No dizziness, No fever, No malaise EENTM: No Symptoms Reported Respiratory: Denies Cough, Denies Shortness of Air, Denies SOA With Exertion, Denies Stridor, Denies Wheezing Cardiovascular: Denies Chest Pain, Denies Edema, Denies Irregular Heart Rate, Denies Lightheadedness, Denies Palpitations, Denies Syncope Gastrointestinal: See HPI, Abdomen Distended, Abdominal Pain, Constipated; Denies Diarrhea, Denies Nausea, Denies Poor Appetite; Poor Fluid Intake; Denies Vomiting Genitourinary: See HPI, Burning; Denies Frequency, Denies Hematuria Musculoskeletal: see HPI; No back pain Skin: no symptoms reported Psychiatric/Neurological: No Symptoms Reported All Other Systems Reviewed Negative Unless Noted: Yes (Negative excepted noted.) Past Lqyrfbw-Mmoztd-Fiwrta Hx Past Med/Social Hx: Reviewed Nursing Past Med/Soc Hx Patient Social History Alcohol Use: Denies Use Recreational Drug Use: No Smoking Status: Never a Smoker 2nd Hand Smoke Exposure: No Recent Foreign Travel: No Contact w/Someone Who Travel: No Recent Infectious Disease Expo: No Recent Hopitalizations: Yes Physical Abuse: No Sexual Abuse: No Mistreated: No Fear: No Immunizations Up To Date Tetanus Booster (TDap): Unknown PED Vaccines UTD: Yes Date of Pneumonia Vaccine: Jan 06, 2015 Date of Influenza Vaccine: Feb 20, 2018 Seasonal Allergies Seasonal Allergies: No Past Medical History Surgeries: Yes (ADHESIONS, RIGHT HEMICOLECTOMY, LATER HAVING A COMPLETE COLECTOMY WITH END ILEOSTOMY PLACEMENT.) Abdominal (ADHESIOLYSIS X 2), Hysterectomy Respiratory: Yes (PUNCTURED LUNG FROM PORT PLACEMENT) Cardiac: Yes High Cholesterol, Hypertension Neurological: Yes Headaches /Migraines 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 Sexually Transmitted Disease: No HIV/AIDS: No Genitourinary: No Kidney Stones Gastrointestinal: Yes (ILEOSTOMY) Gastroesophageal Reflux, Obstructive Bowel Musculoskeletal: Yes (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) Chronic Back Pain, Gout Endocrine: Yes Diabetes, Insulin dep HEENT: Yes (cataracts removed) Cancer: Yes (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) Colon Did You Recieve Any Treatments: Yes What Type of Treatment Did You: Chemotherapy, Surgical Intervention Psychosocial: No Integumentary: No Blood Disorders: No Adverse Reaction/Blood Tranf: No Family Medical History Reviewed Nursing Family Hx Cancer 03 FATHER, , Onset:60 years & older 03 MOTHER, , Onset:60 years & older 09 BROTHER, , Onset:60 years & older 09 BROTHER, , Onset:60 years & older 09 BROTHER, Onset:60 years & older 09 SISTER, , Onset:60 years & older Cancer of colon 09 BROTHER, , Onset:60 years & older Dementia 09 SISTER, Onset:60 years & older Family history: Diabetes mellitus 09 SISTER, , Onset:60 years & older Heart disease 03 FATHER, , Onset:60 years & older 09 SISTER, , Onset:60 years & older History of - respiratory disease 09 BROTHER, Onset:60 years & older Prostate cancer 09 BROTHER, Onset:60 years & older Stroke 03 MOTHER, , Onset:50's - 60 No Pertinent Family Hx, Heart Disease, Cancer, CVA Physical Exam Vital Signs Capillary Refill : Less Than 3 Seconds Height/Weight/BMI Height: 5'5.00" Weight: 160lbs. 0.0oz. 72.006606hy; 25.00 BMI Method:Stated General Appearance: WD/WN, no apparent distress HEENT: PERRL/EOMI, pharynx normal Neck: non-tender, supple, normal inspection Respiratory: lungs clear, normal breath sounds, no respiratory distress, no acc essory muscle use Cardiovascular: normal peripheral pulses, regular rate, rhythm, no edema, no gallop, no murmur Gastrointestinal: normal bowel sounds, no organomegaly, distended (mild to moderate distention), guarding (generalized); No rebound; tenderness (generalized tenderness), other (incisions intact without cellulitis.) Extremities: no pedal edema, no calf tenderness, normal capillary refill Back: normal inspection, no CVA tenderness Neurologic/Psychiatric: alert, normal mood/affect, oriented x 3 Skin: normal color, warm/dry, other (abdominal incisions intact without cellulitis.) Progress/Results/Core Measures Results/Orders My Orders Orders - CARTER THOMPSON Ed Iv/Invasive Line Start (02/22/19 20:49) Ct Abdomen/Pelvis Wo (02/22/19 21:02) Fentanyl Injection (Sublimaze Injection (02/22/19 21:19) Methylnaltrexone Injection (Relistor Inj (02/22/19 22:45) Rx-Ondansetron Po (Rx-Zofran Po) (02/22/19 22:35) Iv Push Crematory Operator Ed (02/22/19 ) Im/Sub-Q Injection Non-Ab Ed (02/22/19 ) Vital Signs/I&O Blood Pressure Mean: 92 POS Diagnostic Imaging Diagonstic Imaging: CT Plain Films/CT/US/NM/MRI: abdomen, pelvis Comments post-operative changes without obstruction or abscess. Reviewed: Discussed w/Radiologist (Dr. Hanley) Departure Communication (Admissions) Patient seen and evaluated. All records from the ED visit earlier today reviewed. CT abdomen and pelvis obtained. Patient was given fentanyl, Zofran, and Relistor with improvement in symptoms. Patient case discussed with Dr. Tom with recommendations for discharge to home and follow-up early next week for recheck. Plan for discharge to home with follow-up as an outpatient Monday or Monday with Dr. Tom discussed with the patient and family. All verbalize understanding and agree with the treatment plan. Patient case discussed with Dr. Clark, he agrees with the plan of care. Impression Primary Impression: Postoperative abdominal pain Additional Impression: Urinary tract infection Qualified Codes: N30.00 - Acute cystitis without hematuria Disposition: HOME, SELF-CARE Condition: Improved Departure-Patient Inst. Decision time for Depature: 22:09 Referrals: HARSH WALTON MD (PCP/Family) Primary Care Physician EDIS TOM MD Patient Instructions: Postoperative Pain (DC), Urinary Tract Infection, Adult (DC) Add. Discharge Instructions: All discharge instructions reviewed with patient and/or family. Voiced understanding. Medications as instructed. Tylenol jzsu-tyn-jcupmoi as directed for pain. Incentive spirometer every 1 hour while awake to help prevent pneumonia. Continue all current orders and medications as discussed on your previous emergency department visit and discharge from the hospital. Follow-up with Dr. Tom Monday or Monday for recheck, call first thing Monday morning for an appointment time. Return to the emergency department for worsened symptoms, fever, vomiting, or any other concerns. Scripts Ondansetron (Ondansetron Odt) 8 Mg Tab.rapdis 8 MG PO Q6H PRN for NAUSEA/VOMITING, #10 TAB 0 Refills Prov: CARTER THOMPSON 02/22/19 CARTER THOMPSON Feb 22, 2019 21:29 POS
--- NOTE | 2019-02-22 22:19 | Diagnostic Imaging Report ---
Clinical indication: Patient with colostomy for approximately 18 years. Patient had adhesions removed yesterday. Patient has abdominal pain today and decreased bowel output. Exam: CT exam of the abdomen and pelvis is performed without IV or oral contrast using stone protocol. Coronal and sagittal reformatted images were created. Auto Exposure Controls were utilized during the CT exam to meet ALARA standards for radiation dose reduction. Comparisons: CT scan of the abdomen and pelvis was performed with contrast dated 02/06/2019. Findings: There is patchy consolidation and parenchymal band seen involving both lung bases which is suspected to represent atelectasis, but superimposed infiltrates cannot be completely excluded. There is no definite pleural effusion seen. There are small spurs involving both hips. There is lower lumbar spine facet arthropathy. There is a small amount of intra-abdominal air seen within the abdomen and pelvis region. There is also extra-abdominal subcutaneous air which is a small amount seen in the abdomen and pelvis region. There is minimal amount of fluid in the right perihepatic region. There is development of mild fat stranding in the anterior abdominal and pelvic region with air scattered within it and anteriorly. There is small amount of free fluid in the left lateral conal fascia left pelvic region with no peripheral enhancement seen. These findings are likely from recent postoperative changes. There appears to be total colectomy again seen with right abdominal ileostomy. There is no intestinal obstruction. The stomach is air and debris filled. The liver, spleen, pancreas, gallbladder, adrenal glands and both kidneys show no interval acute abnormality and are stable. Nonobstructive stones involving both kidneys are noted. There is exophytic right renal cystic structure again seen. Again seen are multiple mesenteric lymph nodes which have not significantly changed in the interim. Bladder is fluid-filled, otherwise unremarkable. The uterus is surgically resected. The adnexa are not definitively visualized and may also be surgically resected. Impression: 1: There are not interval postoperative changes, likely related to recent lysis of adhesions. There is intra-abdominal and extra abdominal free air, intra-abdominal fat stranding and small amount of free fluid in the abdomen and pelvis. 2: There is no evidence of intestinal obstruction. 3: Total colectomy and right ileostomy is again seen. Results of this report were discussed with TESSA Miranda via the telephone on 02/22/2019 at 2200 hours. Dictated by: Dictated on workstation # [id number]
[2019-02-22] MEDS ORDERED: RX-ONDANSETRON 4 MG ODT (ZOFRAN) PPK #4 PO STA (22:35)
[2019-02-22] MEDS ORDERED: ONDA8TAB13 PO (22:37)
[2019-02-22] MEDS ORDERED: METHYLNALTREXONE 12 MG/0.6 ML (RELISTOR) VIAL SQ ONE (22:45)
[2019-02-22 22:56] VITALS: BP 103/54
--- OUTSIDE RECORDS SUMMARY | 2019-03-18 10:56 | XMS REPORT | Clinical Summary ---
Author Author [facility] POS Organization [facility] SP Address Unknown SP Phone Unavailable SP Care Team Providers Care Machine Grainer Name Role Phone POS YazanTdmaria t CANTU PCP SP Tyrone Suarez MD Unavailable SP Source Comments Some departments are not documenting in the electronic medical record. If you d o not see the information that you expected, contact Release of Information in [facility] Information Management department at [phone] for further assistan ce in locating additional records.[facility] Allergies No Known Allergies Medications End [...] Vital Sign SP 159/76 07/10/2008 3:01 PM [employer] SP Blood Pressure SP 73 07/10/2008 3:01 PM [employer] SP Pulse SP 37.3 C (99.1 F) 07/10/2008 3:01 PM [employer] SP Temperature SP - - SP Respiratory Rate SP 97% 07/10/2008 3:01 PM [employer] SP Oxygen Saturation SP - - SP Inhaled Oxygen SP Concentration SP 67.4 kg (148 lb 9.6 oz) 07/10/2008 6:03 AM [employer] SP Weight SP 165.1 cm (5' 5") 07/09/2008 10:00 PM [employer] SP Height SP 24.73 07/09/2008 10:00 PM [employer] SP Body Mass Index SP Plan of [...]
[2019-04-18] MEDS ORDERED: ENLP5T PEG (16:00)
[2019-04-18] MEDS ORDERED: OXYB5TAB13 PO (16:00)
[2019-04-22] MEDS ORDERED: BISO5TAB3 PO (13:26)
[2019-05-14] MEDS ORDERED: MORP20SO PO (05:43)
[2019-05-14] MEDS ORDERED: LORA2ORA PO (05:43)
== END 2019-02-22 22:59 | disposition home or self-care (01) ==
LOC: EDUNIT# 20:27 → ER 20:28
DX: G89.18 Other acute postprocedural pain (principal); R10.12 Left upper quadrant pain; R10.32 Left lower quadrant pain; N39.0 Urinary tract infection, site not specified; I10 Essential (primary) hypertension; E78.00 Pure hypercholesterolemia, unspecified; G43.909 Migraine, unspecified, not intractable, without status migrainosus; K21.9 Gastro-esophageal reflux disease without esophagitis; K58.9 Irritable bowel syndrome, unspecified; E11.9 Type 2 diabetes mellitus without complications; Z86.018 Personal history of other benign neoplasm; Z87.442 Personal history of urinary calculi; Z88.1 Allergy status to other antibiotic agents; Z88.0 Allergy status to penicillin; Z91.040 Latex allergy status; Z79.82 Long term (current) use of aspirin; Z79.4 Long term (current) use of insulin; Z93.3 Colostomy status; Z93.2 Ileostomy status; Z90.710 Acquired absence of both cervix and uterus; Z80.0 Family history of malignant neoplasm of digestive organs; Z80.42 Family history of malignant neoplasm of prostate
CPT/HCPCS: 74176; 96372; 96374

== ENCOUNTER 2019-02-24 19:38 | Inpatient (IN) | payer MEDICARE ==
[~2019-02-24] VITALS: Ht 170 cm; Wt 87.5 kg
[~2019-02-24 19:38] MED LIST changes: +BISO5TAB PO; -BISO5TAB3 PO; +ONDA8TAB13 PO
[2019-02-24] MEDS ORDERED: cefTRIAXone FOR IV USE 1,000 MG in WATER (STERILE) FOR INJECTION 10 ML IV ONE (19:45)
[2019-02-24] MEDS ORDERED: NS IV 1000 ML 2,177.25 ML IV ONE (19:45)
[2019-02-24] MEDS ORDERED: DILTIAZEM IV FOR DRIP 125 MG in NS (IVPB) 100 ML IV SCH (20:00)
[2019-02-24] MEDS ORDERED: DILTIAZEM 25 MG/5 ML INJ (CARDIZEM) VIAL IVP ONE (20:00)
[2019-02-24 20:11] LABS: BASOPHILS % (AUTO) 0 % (0-10); EOSINOPHILS % (AUTO) 0 % (0-10); HEMATOCRIT 43 % (35-52); HEMOGLOBIN 14.6 G/DL (11.5-16.0); LYMPHOCYTES # (AUTO) 0.8 X 10^3 (1.0-4.0); LYMPHOCYTES % (AUTO) 9 % (12-44); MEAN CORPUSCULAR HEMOGLOBIN 33 PG (25-34); MEAN CORPUSCULAR HGB CONC 34 G/DL (32-36); MEAN CORPUSCULAR VOLUME 96 FL (80-99); MONOCYTES # (AUTO) 1.4 X 10^3 (0.0-1.0); MONOCYTES % (AUTO) 16 % (0-12); NEUTROPHILS # (AUTO) 6.7 X 10^3 (1.8-7.8); NEUTROPHILS % (AUTO) 75 % (42-75); PLATELET COUNT 191 10^3/uL (130-400); RED CELL DISTRIBUTION WIDTH 13.9 % (10.0-14.5)
[2019-02-24 20:23] LABS: INR 1.3 (0.8-1.4); PROTHROMBIN TIME PATIENT 17.2 SEC (12.2-14.7)
[2019-02-24 20:31] LABS: ALBUMIN 3.2 GM/DL (3.2-4.5); BILIRUBIN,TOTAL 0.7 MG/DL (0.1-1.0); CALCIUM 8.1 MG/DL (8.5-10.1); CREATININE SERUM 2.07 MG/DL (0.60-1.30); MAGNESIUM 1.9 MG/DL (1.6-2.4); POTASSIUM 4.1 MMOL/L (3.6-5.0); TOTAL PROTEIN 6.2 GM/DL (6.4-8.2)
--- NOTE | 2019-02-24 20:35 | Diagnostic Imaging Report ---
Clinical indications: Patient with shortness of air. Exam: Portable chest x-ray upright view. Comparisons: Portable chest x-ray dated 04/29/2018. Findings: There is interval low lung volumes with bibasilar airspace opacities. There is blunting of both costophrenic angles concerning for pleural effusions. Pulmonary vasculature and cardiac silhouettes within normal limits. Bones show no significant interval abnormality. Impression: 1.: There is interval development of bibasilar atelectasis versus infiltrate. There is also concern for possible small bilateral pleural effusions. Dictated by: Dictated on workstation # [id number]
--- NOTE | 2019-02-24 20:35 | NUR ---
PER DR. DAVISON ORDERS BIPAP PLACED 04/12 AT 50% FIO2 PER MAR, RT. O2 SAT 94%.
[2019-02-24 20:50] LABS: BILIRUBIN,URINE NEGATIVE (NEGATIVE); CLARITY,URINE CLEAR; COLOR,URINE YELLOW; GLUCOSE, URINE (UA) NEGATIVE (NEGATIVE); KETONES,URINE 1+ (NEGATIVE); LEUKOCYTE ESTERASE ,URINE 1+ (NEGATIVE); NITRITE,URINE NEGATIVE (NEGATIVE); PH,URINE 5 (5-9); PROTEIN,URINE 2+ (NEGATIVE)
--- NOTE | 2019-02-24 20:50 | NUR ---
ABG BY RT. MAR
[2019-02-24 20:53] VITALS: BP 123/61
[2019-02-24 20:55] LABS: ABG BASE EXCESS -8.7 MMOL/L (-2.5-2.5); ABG OXYGEN SATURATION 95 % (94-100); ABG PCO2 30 MMHG (35-45); ABG PH 7.35 (7.37-7.43); ABG PO2 80 MMHG (79-93); ABG TCO2 16.8 MMOL/L (21.0-31.0)
[2019-02-24 20:56] LABS: CREATINE KINASE MB 2.2 NG/ML (<6.6); TSH (THYROID ANALYZER) 0.41 UIU/ML (0.35-4.94)
[2019-02-24 20:58] LABS: ALLENS TEST YES-POS; INSPIRED O2 10L; VENTILATOR NO
[2019-02-24 20:58] LABS: AMORPHOUS SEDIMENT,UR MOD AMOR URATES /LPF; BACTERIA,URINE FEW /HPF; HYALINE CASTS, URINE 0-2 /LPF; RBC,URINE RARE /HPF
[2019-02-24] MEDS ORDERED: DIGOXIN 0.25 MG/ML (LANOXIN) 2 ML AMP IV ONE (21:15)
[2019-02-24] MEDS ORDERED: SODIUM BICARB 8.4% 50 MEQ/50 ML VIAL IV ONE (21:15)
--- NOTE | 2019-02-24 22:14 | Diagnostic Imaging Report ---
Clinical indication: Patient with low blood pressure and abdominal pain. Exam: CT scan of the chest, abdomen, and pelvis performed without IV or enteric contrast. Coronal and sagittal reformatted images are created. Auto Exposure Controls were utilized during the CT exam to meet ALARA standards for radiation dose reduction. Comparison: CT scan of the abdomen and pelvis dated 02/22/2019. Findings: CT Chest: There is interval development of a vfysr-ih-pcfazyzi sized left pleural effusion and minimal right pleural effusion. There is progression of segmental and subsegmental consolidation of both lower lobes and atelectasis/consolidation of the middle lobe and lingula. There is no significant mediastinal or axillary lymphadenopathy. Atherosclerotic disease of the coronary arteries seen. CT abdomen and pelvis: There is interval increased small to moderate amount of free air involving the upper, mid and lower anterior abdominal region. There is increased free air in the abdominal mid and lower regions anteriorly. There is air-fluid level also seen in the mid and lower anterior abdominal region. There are small areas of air within the mesentery in the low mid abdominal region anteriorly which has progressed. There is interval increased free fluid in the left abdomen and pelvis region. The stomach has small amount of fluid within it. There is no intestinal obstruction seen. Postoperative changes with colectomy and right anterior abdominal ileostomy again seen. There is interval decreased intra-abdominal subcutaneous air in the right mid and lower intra-abdominal region. Wing catheter seen in the expected region of the bladder. Prominent mesenteric lymph nodes are again seen. The remainder of this exam shows no significant interval change compared to the prior study of comparison. Impression: 1: There is interval increased amount of now small to moderate intra-abdominal free air. There is also increased free fluid in the left abdomen and pelvis region. There is increased air in the mesentery in the lower abdominal and anterior pelvis region. Given the progression of intra-abdominal free air or free fluid, an intestinal leak or perforation is of concern. Area of concern would be in the anterior low abdomen/pelvis or left lower abdomen/pelvis region. 2: There is interval development of a shadu-xt-qcthmxuf left pleural effusion and small right pleural effusion. There is progression of atelectasis and consolidation of both lungs with the lower lung jimenez affected the most. 3: Stable postoperative changes to the abdomen with colectomy and right abdominal ileostomy. Results of this report was discussed with Dr. Ewelina Hubbard via the telephone on 02/24/2019 at 2200 hours. Dictated by: Dictated on workstation # [id number]
[2019-02-24] MEDS ORDERED: VANCOMYCIN INJECTION 1,000 MG in NS (IVPB) 250 ML IV SCH (22:15)
[2019-02-24] MEDS ORDERED: MEROPENEM 2,000 MG in NS (IVPB) 100 ML IV ONE (22:15)
[2019-02-24] MEDS ORDERED: NS (IVPB) 250 ML ONE (22:40)
[2019-02-24] MEDS ORDERED: VANCOMYCIN 1000 MG/VIAL ONE (22:40)
--- NOTE | 2019-02-24 22:48 | NUR ---
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 CLARK RN TO CALL PHARMACIST TO VERIFY OK TO MIX MERREM 2GM IN NS FOR ADMINISTRATION.
--- NOTE | 2019-02-24 22:52 | NUR ---
EKG ORDERED PER DR. DAVISON TO DETERMINE IF PT CONVERTED TO NSR. NSR CONFIRMED BY EKG AND PER DR. DAVISON. ORDERS PER DR. DAVISON TO CONTINUE CARDIZEM GTT AT 20MG/HR. HR 102 BP 132/56.
--- NOTE | 2019-02-24 22:55 | NUR ---
DR. MONTEJO DISCUSSING CASE WITH PT AND FAMILY.
--- NOTE | 2019-02-24 23:03 | NUR ---
CONSENT OBTAINED FOR EXPLORATORY LAPAROTOMY.
--- NOTE | 2019-02-24 23:14 | NUR ---
MERREM 2GM MIXED WITH NS 100ML AND ADMINISTRATED PER DR. MONTEJO'S ORDERS PHARMACY HAS NOT RETURNED CALL FOR VERIFICATION OF MIXING MEDICATION IN ER OR OBTAINING FROM PHARMACY. TO GIVE VANCO AFTER MERREM COMPLETION. DR. MONTEJO AND DR. DAVISON AWARE.
--- NOTE | 2019-02-24 23:25 | Consultation - Surgery ---
History of Present Illness History of Present Illness Patient Consulted On(dimitris/time) 02/24/19 23:14 Time Seen by Provider: 22:41 History of Present Illness Surgery asked to consult regarding abdominal pain, increasing pneumoperitoneum and hydroperitoneum. HPI: Pt is a 73 yo female who underwent Laparoscopic Lysis of Adhesions on 02/21. She was actually back in the ER on the , twice and sent home both times. She did have a CT done on the but it was read as normal post- operative CT. Pt presented to the ER today with increasing abdominal pain; rating it as 10 out of 10. Pain is diffuse across the entire abdomen and she states she is distended. Pt also complained of SOB and tachycardia. When she came into the ER she was hypotensive and had Afib with RVR. Pt has not been able to eat or drink because of the pain. Allergies and Home Medications Allergies Coded Allergies: levofloxacin (Verified Adverse Reaction, Mild, RASH, 07/06/12) amoxicillin (Unverified Adverse Reaction, Unknown, 05/28/14) YEAST INFECTION latex (Unverified Adverse Reaction, Unknown, 04/18/18) Home Medications Allopurinol 300 Mg Tablet, 300 MG PO DAILY, (Reported) Amlodipine Besylate 5 Mg Tablet, 5 MG PO DAILY, (Reported) Aspirin 81 Mg Tab.chew, 81 MG PO DAILY, (Reported) Bisoprolol Fumarate 5 Mg Tablet, 5 MG PO DAILY, (Reported) Cephalexin 500 Mg Capsule, 500 MG PO TID Prescribed by: JUAN CARLOS RUBALCAVA on 02/22/19 1758 Hydrocodone/Acetaminophen 1 Each Tablet, 1-2 TAB PO Q6H Prescribed by: CLARA FAUSTIN on 02/21/19 0830 Insulin Aspart 300 Units/3 Ml Solution, 10 UNITS SQ 0800,1200, (Reported) Insulin Aspart 300 Units/3 Ml Solution, 15 UNITS SQ 1800, (Reported) Insulin Glargine,Hum.rec.anlog 100 Unit/1 Ml Vial, 50 UNIT SQ HS, (Reported) Losartan Potassium 100 Mg Tablet, 100 MG PO DAILY, (Reported) Lovastatin 20 Mg Tablet, 20 MG PO HS, (Reported) Multivitamin 1 Each Tablet, 1 EACH PO DAILY, (Reported) [place] 3 Polyunsat Fatty Acids 1,000 Mg Cap, 1,000 MG PO DAILY, (Reported) Ondansetron 8 Mg Tab.rapdis, 8 MG PO Q6H PRN for NAUSEA/VOMITING Prescribed by: CARTER THOMPSON on 02/22/197 Vitamin E Acetate 400 Unit Capsule, 400 UNIT PO DAILY, (Reported) Patient Home Medication List Home Medication List Reviewed: Yes Past Hayqjhw-Uvcoul-Luesir Hx Patient Social History Alcohol Use: Denies Use Recreational Drug Use: No Smoking Status: Never a Smoker 2nd Hand Smoke Exposure: No Recent Foreign Travel: No Contact w/Someone Who Travel: No Recent Infectious Disease Expo: No Recent Hopitalizations: Yes Immunizations Up To Date Tetanus Booster (TDap): Unknown PED Vaccines UTD: Yes Date of Pneumonia Vaccine: Jan 06, 2015 Date of Influenza Vaccine: Feb 20, 2018 Seasonal Allergies Seasonal Allergies: No Surgeries History of Surgeries: Yes Surgeries: Abdominal, Hysterectomy Respiratory History of Respiratory Disorde: Yes (PUNCTURED LUNG FROM PORT PLACEMENT) Cardiovascular History of Cardiac Disorders: Yes Cardiac Disorders: High Cholesterol, Hypertension Neurological History of Neurological Disord: Yes Neurological Disorders: Headaches /Migraines 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 System Hx 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 Disorders: Yes (HYSTERECTOMY) Sexually Transmitted Disease: No 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 Genitourinary History of Genitourinary Disor: No Genitourinary Disorders: Kidney Stones Gastrointestinal History of Gastrointestinal Di: Yes (ILEOSTOMY) Gastrointestinal Disorders: Gastroesophageal Reflux, Obstructive Bowel Musculoskeletal History of Musculoskeletal Dis: Yes (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) Musculoskeletal Disorders: Chronic Back Pain, Gout Endocrine History of Endocrine Disorders: Yes Endocrine Disorders: Diabetes, Insulin dep HEENT History of HEENT Disorders: Yes (cataracts removed) Cancer History of Cancer: Yes (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) Cancer: Colon Psychosocial History of Psychiatric Problem: No Integumentary History of Skin or Integumenta: No Blood Transfusions History of Blood Disorders: No Adverse Reaction to a Blood Tr: No Family Medical History Significant Family History: Heart Disease, Cancer, CVA Family Medial History: Cancer 03 FATHER, , Onset:60 years & older 03 MOTHER, , Onset:60 years & older 09 BROTHER, , Onset:60 years & older 09 BROTHER, , Onset:60 years & older 09 BROTHER, Onset:60 years & older 09 SISTER, , Onset:60 years & older Cancer of colon 09 BROTHER, , Onset:60 years & older Dementia 09 SISTER, Onset:60 years & older Family history: Diabetes mellitus 09 SISTER, , Onset:60 years & older Heart disease 03 FATHER, , Onset:60 years & older 09 SISTER, , Onset:60 years & older History of - respiratory disease 09 BROTHER, Onset:60 years & older Prostate cancer 09 BROTHER, Onset:60 years & older Stroke 03 MOTHER, , Onset:50's - 60 Review of Systems-General Constitutional: chills, diaphoresis, dizziness, malaise, weakness EENTM: No blurred vision, No double vision, No mouth pain, No mouth swelling, No epistaxis Respiratory: cough, dyspnea on exertion; No hemoptysis; orthopnea, short of breath Cardiovascular: chest pain, palpitations; No syncope Gastrointestinal: abdominal pain; No hematemesis; loss of appetite, nausea, vomiting Genitourinary: No dysuria, No frequency, No hematuria Musculoskeletal: back pain, joint pain, joint swelling, muscle stiffness Skin: No change in color, No change in hair/nails, No lesions, No rash Psychiatric/Neurological: Denies Anxiety, Denies Depressed, Denies Seizure, Denies Tremors Other Pt denies any hx of abnormal bleeding or bruising Physical Exam-General Problems Physical Exam Vital Signs Vital Signs - First Documented 02/24/19 02/24/19 19:44 20:35 Temp 37.0 Pulse 170 Resp 32 B/P (MAP) 147/68 (94) Pulse Ox 91 O2 Delivery Room Air O2 Flow Rate 10.00 FiO2 50 Capillary Refill : Less Than 3 Seconds General Appearance: severe distress, obese Eyes: Bilateral Eye PERRL, Bilateral Eye EOMI HEENT: pharynx normal; No scleral icterus (R), No scleral icterus (L) Neck: non-tender, supple Respiratory: respiratory distress, decreased breath sounds, accessory muscle use, crackles, wheezing, other (pt on Bipap) Cardiovascular: no murmur, tachycardia, other (pt converted out of Afib as I walked in) Gastrointestinal: distended, guarding, rebound, tenderness (diffusely) Back: no CVA tenderness, no vertebral tenderness Extremities: no pedal edema, no calf tenderness Neurologic/Psychiatric: ceo na II-XII nml as tested, no motor/sensory deficits, alert, normal mood/affect, oriented x 3 Skin: cool, diaphoresis, pallor Lymphatic: no adenopathy (neck, axilla or groin) Data Review Labs Laboratory Tests 02/24/19 19:58: White Blood Count 9.0, Red Blood Count 4.45, Hemoglobin 14.6, Hematocrit 43, Mean Corpuscular Volume 96, Mean Corpuscular Hemoglobin 33, Mean Corpuscular Hemoglobin Concent 34, Red Cell Distribution Width 13.9, Platelet Count 191, Mean Platelet Volume 10.0, Neutrophils (%) (Auto) 75, Lymphocytes (%) (Auto) 9L, Monocytes (%) (Auto) 16H, Eosinophils (%) (Auto) 0, Basophils (%) (Auto) 0, Neutrophils # (Auto) 6.7, Lymphocytes # (Auto) 0.8L, Monocytes # (Auto) 1.4H, Eosinophils # (Auto) 0.0, Basophils # (Auto) 0.0, Prothrombin Time 17.2H, INR Comment 1.3, Activated Partial Thromboplast Time 30, Sodium Level 134L, Potassium Level 4.1, Chloride Level 102, Carbon Dioxide Level 18L, Anion Gap 14, Blood Urea Nitrogen 56H, Creatinine 2.07H, Estimat Glomerular Filtration Rate 23, BUN/Creatinine Ratio 27, Glucose Level 157H, Lactic Acid Level 4.33*H, Calcium Level 8.1L, Corrected Calcium 8.7, Magnesium Level 1.9, Total Bilirubin 0.7, Aspartate Amino Transf (AST/SGOT) 24, Alanine Aminotransferase (ALT/SGPT) 17, Alkaline Phosphatase 41, Total Creatine Kinase 73, Creatine Kinase MB 2.2, Myoglobin 183.1H, Troponin I 0.039H, B-Type Natriuretic Peptide 111.2H, Total Protein 6.2L, Albumin 3.2, Amylase Level 99, Lipase 24, TSH [place] Testing 0.41 02/24/19 20:16: Glucometer 140H 02/24/19 20:43: Urine Color YELLOW, Urine Clarity CLEAR, Urine pH 5, Urine Specific [place] 1.015L, Urine Protein 2+H, Urine Glucose (UA) NEGATIVE, Urine Ketones 1+H, Urine Nitrite NEGATIVE, Urine Bilirubin NEGATIVE, Urine Urobilinogen NORMAL, Urine Leukocyte Esterase 1+H, Urine RBC (Auto) 1+H, Urine RBC RARE, Urine WBC 5-10H, Urine Squamous Epithelial Cells 2-5, Urine Crystals PRESENTH, Urine Amorphous Sediment MOD JONATHAN URATESH, Urine Bacteria FEWH, Urine Casts PRESENT, Urine Hyaline Casts 0-2H, Urine Mucus NEGATIVE, Urine Culture Indicated CULTURE PENDING 02/24/19 20:50: Blood Gas Puncture Site RIGHT RADIAL, Blood Gas Patient Temperature 37.0, Arterial Blood pH 7.35L, Arterial Blood Partial Pressure CO2 30L, Arterial Blood Partial Pressure O2 80, Arterial Blood HCO3 16*L, Arterial Blood Total CO2 16.8L , Arterial Blood Oxygen Saturation 95, Arterial Blood Base Excess -8.7L, Kenny Test YES-POS, Blood Gas Ventilator Setting NO, Blood Gas Inspired Oxygen 10L 02/24/19 21:58: Lactic Acid Level 3.85*H Microbiology 02/24/19 Influenza Types A,B Antigen (ESTIVEN) - Final, Complete Radiology CT CHEST/ABDOMEN/PELVIS WO Clinical indication: Patient with low blood pressure and abdominal pain. Exam: CT scan of the chest, abdomen, and pelvis performed without IV or enteric contrast. Coronal and sagittal reformatted images are created. Auto Exposure Controls were utilized during the CT exam to meet ALARA standards for radiation dose reduction. Comparison: CT scan of the abdomen and pelvis dated 02/22/2019. Findings: CT Chest: There is interval development of a spelj-rb-zihigdzy sized left pleural effusion and minimal right pleural effusion. There is progression of segmental and subsegmental consolidation of both lower lobes and atelectasis/consolidation of the middle lobe and lingula. There is no significant mediastinal or axillary lymphadenopathy. Atherosclerotic disease of the coronary arteries seen. CT abdomen and pelvis: There is interval increased small to moderate amount of free air involving the upper, mid and lower anterior abdominal region. There is increased free air in the abdominal mid and lower regions anteriorly. There is air-fluid level also seen in the mid and lower anterior abdominal region. There are small areas of air within the mesentery in the low mid abdominal region anteriorly which has progressed. There is interval increased free fluid in the left abdomen and pelvis region. The stomach has small amount of fluid within it. There is no intestinal obstruction seen. Postoperative changes with colectomy and right anterior abdominal ileostomy again seen. There is interval decreased intra-abdominal subcutaneous air in the right mid and lower intra-abdominal region. Wing catheter seen in the expected region of the bladder. Prominent mesenteric lymph nodes are again seen. The remainder of this exam shows no significant interval change compared to the prior study of comparison. Impression: 1: There is interval increased amount of now small to moderate intra-abdominal free air. There is also increased free fluid in the left abdomen and pelvis region. There is increased air in the mesentery in the lower abdominal and anterior pelvis region. Given the progression of intra-abdominal free air or free fluid, an intestinal leak or perforation is of concern. Area of concern would be in the anterior low abdomen/pelvis or left lower abdomen/pelvis region. 2: There is interval development of a eimls-wk-xegcjzrq left pleural effusion and small right pleural effusion. There is progression of atelectasis and consolidation of both lungs with the lower lung jimenez affected the most. 3: Stable postoperative changes to the abdomen with colectomy and right abdominal ileostomy. Results of this report was discussed with Dr. Ewelina Hubbard via the telephone on 02/24/2019 at 2200 hours. Dictated by: Dictated on workstation # [id number] Dict: 02/24/192150 Trans: 02/24/192223 Interpreted by: VAISHNAVI LUIS MD Electronically signed by: VAISHNAVI LUIS MD 02/24/194 Assessment/Plan Assessment/Plan Assessment/Plan Pneumoperitoneum Tachycardia Respiratory Failure B/L Pleural Effusions with Atelectasis and consolidation Pt looks very sick and I believe her abdomen is getting worse; she was in AFib with RVR and luckily has come out of that rhythm. She has had progressive respiratory failure requiring BiPap. I told the pt that I think she needs to go to the OR for Exploratory Laparotomy with possible small bowel resection. I also think she will go to the ICU and spend the night intubated. I informed the pt and her family that she is very sick and has high risk for morbidity and mortality. All questions answered to their satisfaction. MISSY MONTEJO DO Feb 24, 2019 23:25
--- NOTE | 2019-02-24 23:25 | NUR ---
CHRISTI CARDENAS, MEDICARE COMPLIANCE AUDITOR HERE TO SEE PT FOR PRE SURGERY INFORMATION.
[2019-02-24] MEDS ORDERED: ROCURONIUM 10 MG/ML 5 ML SYRINGE IV ONE (23:44)
[2019-02-24] MEDS ORDERED: proPOfol 200 MG/20 ML (DIPRIVAN) VIAL IV ONE (23:44)
[2019-02-24] MEDS ORDERED: SUCCINYLCHOLINE INJ 100 MG/5 ML SYR ONE (23:44)
[2019-02-24] MEDS ORDERED: LIDOCAINE PF 2% 5 ML (XYLOCAINE) VIAL ONE (23:44)
[2019-02-24] MEDS ORDERED: ONDANSETRON 4 MG/2 ML (SDV) Z0FRAN ONE (23:44)
[2019-02-24] MEDS ORDERED: fentaNYL INJECTION 100 MCG/2 ML AMP ONE (23:45)
[2019-02-24] MEDS ORDERED: MIDAZOLAM 2 MG/2 ML (VERSED) VIAL ONE (23:45)
[2019-02-24] MEDS ORDERED: BUP/EPI 0.5% 1:200,000 (SENSORCAINE) 30 ML VIAL ONE (23:52)
--- NOTE | 2019-02-24 23:55 | NUR ---
OR CREW HERE AT THIS TIME, REPORT GIVEN, RT MAR AT BEDSIDE TO TRANSFER PT TO OR WITH OR CREW.
--- NOTE | 2019-02-24 23:59 | NUR ---
CARDIZEM GTT, NS, VANCO INFUSIONS TRANSFERRED WITH PT TO OR.
[2019-02-25] VITALS (34 sets, daily range): BP systolic 94–212; BP diastolic 35–59
--- NOTE | 2019-02-25 00:14 | NUR ---
REPORT TO ROD MANUEL IN ICU.
[2019-02-25] MEDS: LACTATED RINGERS 1,000 ML IV PRN ×3 (00:54→02:27)
[2019-02-25] MEDS ORDERED: HYDROmorphone 2 MG/ML VIAL (DILAUDID) ONE (01:03)
[2019-02-25] MEDS ORDERED: morphine INJ 10 MG/ML 1ML (SYR OR VIAL) ONE (01:04)
[2019-02-25] MEDS ORDERED: ONDANSETRON 4 MG/2 ML (SDV) Z0FRAN ONE (01:04)
[2019-02-25 01:32] LABS: ABG BASE EXCESS -7.6 MMOL/L (-2.5-2.5); ABG OXYGEN SATURATION 92 % (94-100); ABG PCO2 27 MMHG (35-45); ABG PO2 68 MMHG (79-93); ABG TCO2 17.1 MMOL/L (21.0-31.0)
[2019-02-25 01:35] LABS: ALLENS TEST YES-POS; INSPIRED O2 100%; PATIENT TEMP 37.2; VENTILATOR YES
[2019-02-25] MEDS ORDERED: ISOFLURANE (FORANE) 15 ML/15 MIN INHALATION ONE ×8 (02:04→03:35)
[2019-02-25] MEDS ORDERED: ROCURONIUM 10 MG/ML 5 ML SYRINGE IV ONE (02:05)
--- NOTE | 2019-02-25 03:36 | Progress Note-Post Operative ---
Post-Operative Progess Note Surgeon (s)/Sustainability Coordinator (s) Surgeon MISSY MONTEJO DO Sustainability Coordinator: Selam Hunter MSIII, Galina Lorenzo MSIII Pre-Operative Diagnosis Pneumoperitoneum, Hydroperitoneum, B/L Pleural Effusion, Resp Failure Post-Operative Diagnosis Same plus enterotomy x2 Procedure & Operative Findings Date of Procedure 02/25/19 Procedure Performed/Findings Ex Lap with TIERRA SBR x 2 Anesthesia Type GET Estimated Blood Loss Estimated blood loss (mL): 300 Specimens/Packing Specimens Removed portion of small bowel, portion of omentum MISSY MONTEJO DO Feb 25, 2019 03:36
[2019-02-25] MEDS ORDERED: BUPIVACAINE 0.25% 30 ML (SENSORCAINE) VIAL ONE (03:38)
[2019-02-25] MEDS ORDERED: PROPOFOL DRIP (ICU) 100 ML IV ONE (04:25)
[2019-02-25] MEDS ORDERED: fentaNYL INJECTION 100 MCG/2 ML AMP ONE (04:38)
[2019-02-25] MEDS: fentaNYL INJECTION 100 MCG/2 ML AMP IV PRN (04:45)
[2019-02-25 04:52] LABS: BASOPHILS % (AUTO) 0 % (0-10); EOSINOPHILS % (AUTO) 0 % (0-10); HEMATOCRIT 38 % (35-52); HEMOGLOBIN 12.9 G/DL (11.5-16.0); LYMPHOCYTES # (AUTO) 0.6 X 10^3 (1.0-4.0); LYMPHOCYTES % (AUTO) 10 % (12-44); MEAN CORPUSCULAR HEMOGLOBIN 33 PG (25-34); MEAN CORPUSCULAR HGB CONC 34 G/DL (32-36); MEAN CORPUSCULAR VOLUME 96 FL (80-99); MEAN PLATELET VOLUME 9.9 FL (7.4-10.4); MONOCYTES # (AUTO) 1.3 X 10^3 (0.0-1.0); MONOCYTES % (AUTO) 21 % (0-12); NEUTROPHILS # (AUTO) 4.3 X 10^3 (1.8-7.8); NEUTROPHILS % (AUTO) 69 % (42-75); PLATELET COUNT 161 10^3/uL (130-400); RED CELL DISTRIBUTION WIDTH 13.5 % (10.0-14.5); WHITE BLOOD COUNT 6.2 10^3/uL (4.3-11.0)
[2019-02-25 04:53] LABS: ABG BASE EXCESS -6.4 MMOL/L (-2.5-2.5); ABG OXYGEN SATURATION 96 % (94-100); ABG PCO2 42 MMHG (35-45); ABG PO2 91 MMHG (79-93); ABG TCO2 20.8 MMOL/L (21.0-31.0)
[2019-02-25 04:57] LABS: ABG PH 7.28 (7.37-7.43); ALLENS TEST YES-POS; INSPIRED O2 80%; PATIENT TEMP 36.2; VENTILATOR YES
[2019-02-25 05:14] LABS: CALCIUM 6.5 MG/DL (8.5-10.1); CREATININE SERUM 1.43 MG/DL (0.60-1.30); MAGNESIUM 1.5 MG/DL (1.6-2.4); PHOSPHORUS 3.3 MG/DL (2.3-4.7); POTASSIUM 4.3 MMOL/L (3.6-5.0)
[2019-02-25] MEDS ORDERED: MEROPENEM 1,000 MG/SWFI 20 ML IV PUSH IV SCH ×2 (05:45)
[2019-02-25] MEDS: inSUlin ASPART (NovoLOG) 1 UNIT/0.01 ML (CHARGE PER UNIT) SQ SCH ×3 (06:25→16:27)
[2019-02-25] MEDS ORDERED: NS IV 1000 ML 1,000 ML ONE (06:29)
[2019-02-25] MEDS: POTASSIUM CL 10MEQ/50ML IVPB 50 ML IV SCH (06:44)
[2019-02-25] MEDS: KCL 20 MEQ TAB (K-DUR) PO SCH (06:45)
[2019-02-25] MEDS: MAGNESIUM 1 GM/100 ML IVPB 100 ML IV SCH ×3 (06:45→15:26)
[2019-02-25] MEDS: NS IV 1000 ML 1,000 ML IV SCH ×2 (06:53→16:53)
--- NOTE | 2019-02-25 07:23 | ED General ---
General Chief Complaint: Cardiac/General Problems Stated Complaint: POST OP COMPLICATION Nursing Triage Note: PT TO ED W/ DAUGHTER FOR C/O IRREGULAR HEART RATE, ALTERED LOC, LOW BP ET ABD PAIN R/T PREVIOUS SURGERY. DAUGHTER REPORTS PT HAD TAKEDOWN OF ADHESIONS ON 02/[address] PEARSON ET STATES SHE WAS "DOING FINE" UNTIL MONDAY. DAUGHTER STATES PT WAS IN THIS ED AT THAT TIME ET DX W/ UTI. DAUGHTER REPORTS PT HAS BEEN COOL, CLAMMY, HYPOTENSIVE, W/ AN IRREGULAR HEART RATE ET "NOT ACTING HERSELF" SINCE. Nursing Sepsis Screen: No Definite Risk Source of Information: Patient, Family (DAUGHTER) History of Present Illness Date Seen by Provider: Feb 24, 2019 Time Seen by Provider: 19:45 Initial Comments PT ARRIVES VIA POV FROM HOME WITH DAUGHTER--PT LIVES WITH DAUGHTER. DAUGHTER REPORTS THAT PT HAS BEEN CONFUSED TODAY, THAT HER BLOOD PRESSURE HAS BEEN VERY LOW ( USUALLY IS VERY HIGH), AND HER PULSE HAS BEEN VERY IRREGULAR "ALL OVER" . DAUGHTER ALSO STATES THAT SHE HAS BEEN VERY LETHARGIC TODAY AND "DROPS OFF" ( NODS OFF QUICKLY) AND "NOT ALWAYS CLEAR" DAUGHTER ALSO REPORTS THAT PT HAS BEEN "PANTING" FOR THE LAST 2 DAYS DAUGHTER STATE PT HAS NOT BEEN EATING OR DRINKING FOR THE LAST 3 DAYS NO FEVER NO VOMITING OR DIARRHEA NO SIGNIFICANT COUGH ON QUESTIONING THE PT ABOUT HER SYMPTOMS, HER MAIN COMPLAINT IS SEVERE ABDOMINAL PAIN --RATES PAIN / PT ALSO C/O OF FEELING SHORTNESS OF BREATH, MOSTLY WITH MINIMAL EXERTION. PT ALSO C/O SOME MILD CHEST TIGHTNESS--MOSTLY WHEN SHE IS SHORT OF BREATH WITH EXERTION PT HAD COMPLETE COLECTOMY WITH PERMANENT ILEOSTOMY APPROXIMATELY 20 YEARS AGO FOR COLON CANCER. PT REPORTS THAT SHE HAS HAD DECREASED STOOL OUTPUT FOR THE LAST 2 DAYS, BUT HAS CHANGED IT TWICE TODAY PT HAD LAPAROSCOPY WITH LYSIS OF ADHESIONS BY DR. PEARSON 02/21/19 PT WAS SEEN HERE IN ER X 2 ON 02/22 FOR POST OP ABDOMINAL PAIN --HAD CT DONE ON 02/22 AND APPEARED TO HAVE NORMAL POST OP FINDINGS, WITH SOME FREE AIR AND FREE FLUID PT WAS FOUND TO HAVE A UTI AND WAS STARTED ON AN ANTIBIOTIC FOR THAT. PT HAS NOT BEEN ABLE TO TAKE ANY OF HER MEDICATIONS TODAY, EXCEPT MANAGED TO TAKE 1 PAIN PILL AT NOON TODAY. FAMILY REPORTS THAT ABDOMEN HAS BECOME MORE DISTENDED THE LAST 2 DAYS. PCP: DR. WALTON BUILDING GUARD DEPUTY SHERIFF: DR. URIAS Allergies and Home Medications Allergies Coded Allergies: levofloxacin (Verified Adverse Reaction, Mild, RASH, 07/06/12) amoxicillin (Unverified Adverse Reaction, Unknown, 05/28/14) YEAST INFECTION latex (Unverified Adverse Reaction, Unknown, 04/18/18) Home Medications Allopurinol 300 Mg Tablet, 300 MG PO DAILY, (Reported) Amlodipine Besylate 5 Mg Tablet, 5 MG PO DAILY, (Reported) Aspirin 81 Mg Tab.chew, 81 MG PO DAILY, (Reported) Bisoprolol Fumarate 5 Mg Tablet, 5 MG PO DAILY, (Reported) Cephalexin 500 Mg Capsule, 500 MG PO TID Prescribed by: JUAN CARLOS RUBALCAVA on 02/22/19 1758 Hydrocodone/Acetaminophen 1 Each Tablet, 1-2 TAB PO Q6H Prescribed by: CLARA FAUSTIN on 02/21/19 0830 Insulin Aspart 300 Units/3 Ml Solution, 10 UNITS SQ 0800,1200, (Reported) Insulin Aspart 300 Units/3 Ml Solution, 15 UNITS SQ 1800, (Reported) Insulin Glargine,Hum.rec.anlog 100 Unit/1 Ml Vial, 50 UNIT SQ HS, (Reported) Losartan Potassium 100 Mg Tablet, 100 MG PO DAILY, (Reported) Lovastatin 20 Mg Tablet, 20 MG PO HS, (Reported) Multivitamin 1 Each Tablet, 1 EACH PO DAILY, (Reported) [place] 3 Polyunsat Fatty Acids 1,000 Mg Cap, 1,000 MG PO DAILY, (Reported) Ondansetron 8 Mg Tab.rapdis, 8 MG PO Q6H PRN for NAUSEA/VOMITING Prescribed by: CARTER THOMPSON on 02/22/192236 Vitamin E Acetate 400 Unit Capsule, 400 UNIT PO DAILY, (Reported) Patient Home Medication List Home Medication List Reviewed: Yes Review of Systems Review of Systems Constitutional: No fever; malaise, weakness EENTM: no symptoms reported Respiratory: see HPI, cough, dyspnea on exertion, orthopnea, short of breath; No wheezing Cardiovascular: see HPI, chest pain; No edema, No palpitations, No syncope Gastrointestinal: see HPI, abdominal pain; No diarrhea; loss of appetite, nausea; No vomiting Genitourinary: see HPI Musculoskeletal: no symptoms reported Skin: no symptoms reported Psychiatric/Neurological: No Symptoms Reported Hematologic/Lymphatic: No Symptoms Reported Immunological/Allergic: no symptoms reported Past [id number] Hx Patient Social History Alcohol Use: Denies Use Recreational Drug Use: No Smoking Status: Never a Smoker 2nd Hand Smoke Exposure: No Recent Foreign Travel: No Contact w/Someone Who Travel: No Recent Infectious Disease Expo: No Recent Hopitalizations: Yes Physical Abuse: No Sexual Abuse: No Mistreated: No Fear: No Immunizations Up To Date Tetanus Booster (TDap): Unknown PED Vaccines UTD: Yes Date of Pneumonia Vaccine: Jan 06, 2015 Date of Influenza Vaccine: Feb 20, 2018 Seasonal Allergies Seasonal Allergies: No Past Medical History Surgeries: Yes (LITHOTRIPSY; MULTIPLE SURGERIES FOR ADHESIONS; PARTIAL C OLECTOMY THEN COMPLETE COLECTOMY WITH PERMANENT ILEOSTOMY AROUND FOR COLON CANCER; CARDIAC CATHS--LAST ONE 04/18/18--NO INTERVENTION; BILATERAL CATARACT SURGERY; HYST/BSO; BREAST BIOPSY 06/2013; PORT PLACEMENT/REMOVAL) Abdominal, Appendectomy, Breast, Cardiac, Eye Surgery, Hysterectomy, Oophorectomy, Renal Respiratory: Yes (PUNCTURED LUNG FROM PORT PLACEMENT) Sleep Apnea Currently Using CPAP: No Currently Using BIPAP: No Cardiac: Yes (CARDIAC CATH 04/18/18--MILD DISEASE, NO INTERVENTION; MILD CAROTID DISEASE--NO INTERVENTION) High Cholesterol, Hypertension Neurological: Yes Headaches /Migraines, Neuropathy 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, 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 Sexually Transmitted Disease: No HIV/AIDS: No Genitourinary: Yes (LITHOTRIPSY) Kidney Stones Gastrointestinal: Yes (COLECTOMY WITH PERMANENT ILEOSTOMY FOR COLON CANCER AROUND 2000) Gastroesophageal Reflux, Obstructive Bowel Musculoskeletal: Yes (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) Chronic Back Pain, Gout Endocrine: Yes Diabetes, Insulin dep, Hypothyroidsim HEENT: Yes (CATARACT SURGERY BILATERALLY) Cataract Cancer: Yes (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; COLON CANCER AROUND --S/P SURGERY ADN CHEMO) Colon Did You Recieve Any Treatments: Yes What Type of Treatment Did You: Chemotherapy, Surgical Intervention Psychosocial: No Integumentary: No Blood Disorders: No Adverse Reaction/Blood Tranf: No Family Medical History Cancer 03 FATHER, , Onset:60 years & older 03 MOTHER, , Onset:60 years & older 09 BROTHER, , Onset:60 years & older 09 BROTHER, , Onset:60 years & older 09 BROTHER, Onset:60 years & older 09 SISTER, , Onset:60 years & older Cancer of colon 09 BROTHER, , Onset:60 years & older Dementia 09 SISTER, Onset:60 years & older Family history: Diabetes mellitus 09 SISTER, , Onset:60 years & older Heart disease 03 FATHER, , Onset:60 years & older 09 SISTER, , Onset:60 years & older History of - respiratory disease 09 BROTHER, Onset:60 years & older Prostate cancer 09 BROTHER, Onset:60 years & older Stroke 03 MOTHER, , Onset:50's - 60 Heart Disease, Cancer, CVA Physical Exam Vital Signs Vital Signs - First Documented 02/24/19 02/24/19 19:44 20:35 Temp 37.0 Pulse 170 Resp 32 B/P (MAP) 147/68 (94) Pulse Ox 91 O2 Delivery Room Air O2 Flow Rate 10.00 FiO2 50 Capillary Refill : Less Than 3 Seconds Height, Weight, BMI Height: 5'5.00" Weight: 160lbs. 0.0oz. [id number]; 21.00 BMI Method:Stated General Appearance: Other (LETHARGIC) HEENT: PERRL/EOMI Neck: Normal Inspection Respiratory: Accessory Muscle Use, Decreased Breath Sounds (IN BASES), Rales (IN BASES), Respiratory Distress, Rhonci (IN BASES), Other (TACHYPNEIC WITH SHALLOW BREATHING. ) Cardiovascular: Irregularly Irregular, Tachycardia (UP TO 190'S ) Gastrointestinal: Abnormal Bowel Sounds (HYPOACTIVE, BUT TYMPANIC. ), Distended, Tenderness, Other (ABDOMEN IS VERY FIRM AND DISTENDED AND DIFFUSELY TENDER. SURGICAL INCISIONS ARE INTACT WITHOUT SIGNS OF INFECTION; ILEOSTOMY IS IN PLACE. ) Back: No CVA Tenderness Extremity: Normal Capillary Refill, Non Tender, No Calf Tenderness, No Pedal E ebony Neurologic/Psychiatric: Oriented x3, No Motor/Sensory Deficits, Other (AWAKE BUT DROWSY/LETHARGIC. ) Skin: Warm/Dry, Pallor Focused Exam Sepsis Stage: Septic Shock Possible Source: Other (GI SOURCE WITH PERFORATED VISCOUS, ALSO WITH UTI, IN ADDITION TO CARDIOGENIC SHOCK DUE TO ATRIAL FIB WITH RVR, HYPOXIA AND RESPIRATORY FAILURE) Lactate Level 02/24/19 21:58: Lactic Acid Level 3.85*H 02/25/19 05:40: Lactic Acid Level 2.56*H 02/25/19 07:11: Time of Focused Exam: 22:00 Respiratory: Decreased Breath Sounds (IN BASE), Rales (IN BASES); No Respiratory Distress, No Wheezing Cardiovascular: No JVD, No Murmur, Normal Peripheral Pulses, Irregularly Irregular Skin: normal color, warm/dry Lactic Acid Level Laboratory Tests Test 02/25/19 05:40 02/25/19 07:11 Lactic Acid Level 2.56 MMOL/L (0.50-2.00) *H Within 3hrs of presentation: Admin fluids, Admin ABX, Blood cultures prior to ABX's, Focus exam, Lactate level, Other (TREATED CARDIOGENIC SHOCK WELL ACUTE RESPIRATORY FAILURE) Procedures/Interventions Tube Size: 7.50 Progress/Results/Core Measures Suspected Sepsis Recent Fever Within 48 Hours: No Infection Criteria Present: Documented Infection New/Unexplained Altered Menta: No Sepsis Screen: No Definite Risk SIRS Temperature:96.8 Pulse: 91 Respiratory Rate: 18 Laboratory Tests 02/24/19 19:58: White Blood Count 9.0 02/25/19 04:40: White Blood Count 6.2 Blood Pressure 148 /41 Mean: 86 02/24/19 21:58: Lactic Acid Level 3.85*H 02/25/19 05:40: Lactic Acid Level 2.56*H 02/25/19 07:11: Laboratory Tests 02/24/19 19:58: Creatinine 2.07H, INR Comment 1.3, Platelet Count 191, Total Bilirubin 0.7 02/25/19 04:40: Creatinine 1.43H, Platelet Count 161 Results/Orders Lab Results Laboratory Tests Test 02/24/19 19:58 02/24/19 20:16 02/24/19 20:43 02/24/19 20:50 Range/Units White Blood Count 9.0 4.3-11.0 10^3/uL Red Blood Count 4.45 4.35-5.85 10^6/uL Hemoglobin 14.6 11.5-16.0 G/DL Hematocrit 43 35-52 % Mean Corpuscular Volume 96 80-99 FL Mean Corpuscular Hemoglobin 33 25-34 PG Mean Corpuscular Hemoglobin Concent 34 32-36 G/DL Red Cell Distribution Width 13.9 10.0-14.5 % Platelet Count 191 130-400 10^3/uL Mean Platelet Volume 10.0 7.4-10.4 FL Neutrophils (%) (Auto) 75 42-75 % Lymphocytes (%) (Auto) 9 L 12-44 % Monocytes (%) (Auto) 16 H 0-12 % Eosinophils (%) (Auto) 0 0-10 % Basophils (%) (Auto) 0 0-10 % Neutrophils # (Auto) 6.7 1.8-7.8 X 10^3 Lymphocytes # (Auto) 0.8 L 1.0-4.0 X 10^3 Monocytes # (Auto) 1.4 H 0.0-1.0 X 10^3 Eosinophils # (Auto) 0.0 0.0-0.3 10^3/uL Basophils # (Auto) 0.0 0.0-0.1 10^3/uL Prothrombin Time 17.2 H 12.2-14.7 SEC INR Comment 1.3 0.8-1.4 Activated Partial Thromboplast Time 30 24-35 SEC Sodium Level 134 L 135-145 MMOL/L Potassium Level 4.1 3.6-5.0 MMOL/L Chloride Level 102 98-107 MMOL/L Carbon Dioxide Level 18 L 21-32 MMOL/L Anion Gap 14 5-14 MMOL/L Blood Urea Nitrogen 56 H 7-18 MG/DL Creatinine 2.07 H 0.60-1.30 MG/DL Estimat Glomerular Filtration Rate 23 BUN/Creatinine Ratio 27 Glucose Level 157 H 70-105 MG/DL Lactic Acid Level 4.33 *H 0.50-2.00 MMOL/L Calcium Level 8.1 L 8.5-10.1 MG/DL Corrected Calcium 8.7 8.5-10.1 MG/DL Magnesium Level 1.9 1.6-2.4 MG/DL Total Bilirubin 0.7 0.1-1.0 MG/DL Aspartate Amino Transf (AST/SGOT) 24 5-34 U/L Alanine Aminotransferase (ALT/SGPT) 17 0-55 U/L Alkaline Phosphatase 41 40-136 U/L Total Creatine Kinase 73 29-168 U/L Creatine Kinase MB 2.2 <6.6 NG/ML Myoglobin 183.1 H 10.0-92.0 NG/ML Troponin I 0.039 H <0.028 NG/ML B-Type Natriuretic Peptide 111.2 H <100.0 PG/ML Total Protein 6.2 L 6.4-8.2 GM/DL Albumin 3.2 3.2-4.5 GM/DL Amylase Level 99 25-125 U/L Lipase 24 8-78 U/L TSH Wilson Testing 0.41 0.35-4.94 UIU/ML Glucometer 140 H 70-110 MG/DL Urine Color YELLOW Urine Clarity CLEAR Urine pH 5 5-9 Urine Specific [place] 1.015 L 1.016-1.022 Urine Protein 2+ H NEGATIVE Urine Glucose (UA) NEGATIVE NEGATIVE Urine Ketones 1+ H NEGATIVE Urine Nitrite NEGATIVE NEGATIVE Urine Bilirubin NEGATIVE NEGATIVE Urine Urobilinogen NORMAL NORMAL MG/DL Urine Leukocyte Esterase 1+ H NEGATIVE Urine RBC (Auto) 1+ H NEGATIVE Urine RBC RARE /HPF Urine WBC 5-10 H /HPF Urine Squamous Epithelial Cells 2-5 /HPF Urine Crystals PRESENT H /LPF Urine Amorphous Sediment MOD JONATHAN URATES H /LPF Urine Bacteria FEW H /HPF Urine Casts PRESENT /LPF Urine Hyaline Casts 0-2 H /LPF Urine Mucus NEGATIVE /LPF Urine Culture Indicated CULTURE PENDING Blood Gas Puncture Site RIGHT RADIAL Blood Gas Patient Temperature 37.0 Arterial Blood pH 7.35 L 7.37-7.43 Arterial Blood Partial Pressure CO2 30 L 35-45 MMHG Arterial Blood Partial Pressure O2 80 79-93 MMHG Arterial Blood HCO3 16 *L 23-27 MMOL/L Arterial Blood Total CO2 16.8 L 21.0-31.0 MMOL/L Arterial Blood Oxygen Saturation 95 94-100 % Arterial Blood Base Excess -8.7 L -2.5-2.5 MMOL/L Kenny Test YES-POS Blood Gas Ventilator Setting NO Blood Gas Inspired Oxygen 10L Test 02/24/19 21:58 02/25/19 01:25 02/25/19 04:40 02/25/19 05:40 Range/Units Lactic Acid Level 3.85 *H 2.56 *H 0.50-2.00 MMOL/L Blood Gas Puncture Site LEFT RADIAL LEFT ARTLINE Blood Gas Patient Temperature 37.2 36.2 Arterial Blood pH 7.40 7.28 *L 7.37-7.43 Arterial Blood Partial Pressure CO2 27 L 42 35-45 MMHG Arterial Blood Partial Pressure O2 68 L 91 79-93 MMHG Arterial Blood HCO3 16 *L 19 L 23-27 MMOL/L Arterial Blood Total CO2 17.1 L 20.8 L 21.0-31.0 MMOL/L Arterial Blood Oxygen Saturation 92 L 96 94-100 % Arterial Blood Base Excess -7.6 L -6.4 L -2.5-2.5 MMOL/L Kenny Test YES-POS YES-POS Blood Gas Ventilator Setting YES YES Blood Gas Inspired Oxygen 100% 80% White Blood Count 6.2 4.3-11.0 10^3/uL Red Blood Count 3.92 L 4.35-5.85 10^6/uL Hemoglobin 12.9 11.5-16.0 G/DL Hematocrit 38 35-52 % Mean Corpuscular Volume 96 80-99 FL Mean Corpuscular Hemoglobin 33 25-34 PG Mean Corpuscular Hemoglobin Concent 34 32-36 G/DL Red Cell Distribution Width 13.5 10.0-14.5 % Platelet Count 161 130-400 10^3/uL Mean Platelet Volume 9.9 7.4-10.4 FL Neutrophils (%) (Auto) 69 42-75 % Lymphocytes (%) (Auto) 10 L 12-44 % Monocytes (%) (Auto) 21 H 0-12 % Eosinophils (%) (Auto) 0 0-10 % Basophils (%) (Auto) 0 0-10 % Neutrophils # (Auto) 4.3 1.8-7.8 X 10^3 Lymphocytes # (Auto) 0.6 L 1.0-4.0 X 10^3 Monocytes # (Auto) 1.3 H 0.0-1.0 X 10^3 Eosinophils # (Auto) 0.0 0.0-0.3 10^3/uL Basophils # (Auto) 0.0 0.0-0.1 10^3/uL Sodium Level 137 135-145 MMOL/L Potassium Level 4.3 3.6-5.0 MMOL/L Chloride Level 109 H 98-107 MMOL/L Carbon Dioxide Level 18 L 21-32 MMOL/L Anion Gap 10 5-14 MMOL/L Blood Urea Nitrogen 49 H 7-18 MG/DL Creatinine 1.43 H 0.60-1.30 MG/DL Estimat Glomerular Filtration Rate 36 BUN/Creatinine Ratio 34 Glucose Level 144 H 70-105 MG/DL Calcium Level 6.5 L 8.5-10.1 MG/DL Phosphorus Level 3.3 2.3-4.7 MG/DL Magnesium Level 1.5 L 1.6-2.4 MG/DL Test 02/25/19 07:11 Range/Units Micro Results Microbiology 02/24/19 Influenza Types A,B Antigen (ESTIVEN) - Final, Complete My Orders Orders - TOMMY DAVISON DO Cbc With Automated Diff (02/24/19 19:45) Comprehensive Metabolic Panel (02/24/19:45) Blood Culture (02/24/19:45) Sputum Culture (02/24/19:45) Urinalysis (02/24/1945) Urine Culture (02/24/19:45) Protime With Inr (02/24/19:45) Partial Thromboplastin Time (02/24/1945) Chest 1 View, Ap/Pa Only (02/24/19:45) Ed Iv/Invasive Line Start (02/24/19:45) Ed Iv/Invasive Line Start (02/24/19:45) Ekg Tracing (02/24/19:45) Vital Signs Adult Sepsis Patie Q15M (02/24/19:45) O2 (02/24/19:45) Remove Rings In Anticipation O (02/24/19:45) Lactic Acid Analyzer (02/24/19:45) Influenza A And B Antigens (02/24/19:45) Ns Iv 1000 Ml (Sodium Chloride 0.9%) (02/24/19:45) Ceftriaxone For Iv Use (Rocephin For I (02/24/19 19:45) Diltiazem Injection (Cardizem Injection) (02/24/19 20:00) Ns (Ivpb) (Sodium C... W/Diltiazem Iv Fo (02/24/19 20:00) Accucheck Stat ONCE (02/24/19 19:55) Catheter(Urinary) Insert & Ass 03,15 (02/24/19 19:55) O2 (02/24/19 19:55) Monitor-Rhythm Ecg Trace Only (02/24/19 19:55) Amylase (02/24/19 19:56) Lipase (02/24/19 19:56) Magnesium (02/24/19 19:56) BNP (02/24/19 20:) Creatine Kinase (02/24/19 20:01) Creatine Kinase Mb (02/24/19 20:01) Thyroid Analyzer (02/24/19 20:) Troponin I (02/24/19 20:) Myoglobin Serum (02/24/19 20:) Ekg Tracing (02/24/19 20:17) Arterial Blood Gas (02/24/19 20:17) Digoxin Injection (Lanoxin Injection) (02/24/19 21:15) Sodium Bicarbonate 8.4% Vial (Sodium Bic (02/24/19 21:15) Ct Chest/Abdomen/Pelvis Wo (02/24/19 21:03) Meropenem (Merrem 1000 Mg) (02/24/19 22:15) Vancomycin Injection (Vancomycin Injecti (02/24/19 22:15) Ekg Tracing (02/24/19 22:25) Vancomycin Injection (Vancomycin Injecti (02/24/19 22:40) Ns (Ivpb) (Sodium Chloride 0.9%) (02/24/19 22:40) Ekg Tracing (02/24/19 22:55) Succinylcholine Injection (Succinylcholi (02/24/19 23:44) Rocuronium 5 Ml Syringe (Rocuronium 5 Ml (02/24/19 23:44) Propofol Injection (Diprivan Injection) (02/24/19 23:44) Ondansetron Injection (Zofran Injectio (02/24/19 23:44) Lidocaine 2% Pf 5 Ml (Xylocaine 2% Pf) (02/24/19 23:44) Fentanyl Injection (Sublimaze Injection (02/24/19 23:45) Midazolam Injection (Versed Injection) (02/24/19 23:45) Bupivacaine 0.5% W/Epi Inj (Sensorcaine (02/24/19 23:52) Hydromorphone Injection (Dilaudid Inject (02/25/19 01:03) Morphine Injection (Morphine Injection (02/25/19 01:04) Ondansetron Injection (Zofran Injectio (02/25/19 01:04) Medications Given in ED Current Medications Medications Dose Ordered Sig/Ronen Route Start Time Stop Time Status Last Admin Dose Admin Ceftriaxone Sodium 1000 mg/ Sterile Water 10 ml @ 200 mls/hr ONCE ONCE IV 02/24/19 19:45 02/24/19 19:49 DC 02/24/19 20:46 200 MLS/HR Digoxin 0.25 mg ONCE ONCE IV 02/24/19 21:15 02/24/19 21:16 DC 02/24/19 21:11 0.25 MG Diltiazem HCl 10 mg ONCE ONCE IVP 02/24/19 20:00 02/24/19 20:01 DC 02/24/19 20:05 10 MG Fentanyl Citrate 50-100 MCG Q1H PRN IV 02/25/19 05:00 02/25/19 04:45 100 MCG Lactated Ringer's 1,000 ml @ 0 mls/hr Q0M PRN IV 02/25/19 00:51 02/25/19 02:27 0 MLS/HR Meropenem 2000 mg/ Sodium Chloride 100 ml @ 200 mls/hr ONCE ONCE IV 02/24/19 22:15 02/24/19 22:44 DC 02/24/19 23:14 200 MLS/HR Sodium Bicarbonate 50 meq ONCE ONCE IV 02/24/19 21:15 02/24/19 21:16 DC 02/24/19 21:15 50 MEQ Sodium Chloride 2,177.25 ml @ 2,177.25 mls/hr ONCE ONCE IV 02/24/19 19:45 02/24/19 20:44 DC 02/24/19 20:06 2,177.25 MLS/HR Vital Signs/I&O 02/24/19 02/24/19 02/24/19 02/24/19 19:44 19:44 20:08 20:30 Temp 37.0 37.0 Pulse 170 170 141 Resp 32 32 20 B/P (MAP) 147/68 (94) 147/68 118/63 Pulse Ox 91 98 O2 Delivery Room Air OxyMask NIV Bilevel O2 Flow Rate 10.00 02/24/19 02/24/19 02/24/19 02/25/19 20:35 20:53 23:59 04:01 Temp 37.0 Pulse 142 106 Resp 28 22 B/P (MAP) 151/58 (81) Pulse Ox 95 94 93 O2 Delivery NIV Bilevel NIV Bilevel Mechanical Ventilator O2 Flow Rate 50.00 FiO2 50 02/25/19 02/25/19 02/25/19 02/25/19 04:01 04:02 04:05 04:05 Temp 36.2 36.2 Pulse 88 93 91 Resp 16 14 14 B/P (MAP) 177/59 (98) 170/40 (83) Pulse Ox 99 98 96 O2 Delivery Mechanical Ventilator Mechanical Ventilator O2 Flow Rate 80.00 FiO2 80 02/25/19 02/25/19 02/25/19 02/25/19 04:10 04:15 04:15 04:15 Temp 36.47357 Pulse 92 90 Resp 14 14 B/P (MAP) 141/54 (83) 177/35 (82) 151/40 Pulse Ox 96 96 97 O2 Delivery Mechanical Ventilator Mechanical Ventilator Mechanical Ventilator Mechanical Ventilator O2 Flow Rate 80.00 10.00 02/25/19 02/25/19 02/25/19 02/25/19 04:20 04:30 04:30 04:30 Pulse 101 Resp 14 14 B/P (MAP) 139/52 (81) 212/48 (102) 134/51 (78) Pulse Ox 96 96 97 O2 Delivery Mechanical Ventilator Mechanical Ventilator Mechanical Ventilator Mechanical Ventilator O2 Flow Rate 80.00 02/25/19 02/25/19 02/25/19 02/25/19 04:40 04:45 04:50 04:50 Pulse 96 Resp 14 14 B/P (MAP) 134/54 (80) 171/45 (87) 118/49 (72) Pulse Ox 96 97 97 O2 Delivery Mechanical Ventilator Mechanical Ventilator Mechanical Ventilator O2 Flow Rate 80.00 02/25/19 02/25/19 02/25/19 02/25/19 05:00 05:00 05:00 05:30 Temp 36.2 36.0 Pulse 90 92 Resp 14 14 B/P (MAP) 118/50 (72) 151/40 (77) 158/41 (80) Pulse Ox 97 97 97 O2 Delivery Mechanical Ventilator Mechanical Ventilator Mechanical Ventilator Mechanical Ventilator O2 Flow Rate 80.00 80.00 02/25/19 02/25/19 02/25/19 06:00 06:30 06:40 Pulse 90 87 91 Resp 18 B/P (MAP) 154/40 (78) 164/48 (86) Pulse Ox 96 97 94 O2 Delivery Mechanical Ventilator Mechanical Ventilator O2 Flow Rate 80.00 80.00 FiO2 80 02/25/19 00:00 Intake Total 110 ml Balance 110 ml Capillary Refill : Less Than 3 Seconds Blood Pressure Mean: 86 Point of Care Testing Finger Stick Blood Glucose: 144 Blood Glucose Action Taken: rn notified Progress Note : Progress Note O2 SATS 85-90 ON ROOM AIR ON ARRIVAL, PT IS DYSPNEIC, TACHYPNEIC WITH SHALLOW BREATHING PLACED ON O2 /NC-UP TO 6L, THEN CONVERTED TO OXIMASK AT 10L/MIN, WITH ONLY MINIMAL IMPROVEMENT IN O2 SATS OR WORK OF BREATHING PT PLACED ON CPAP / BIPAP WITH SIGNIFICANT IMPROVEMENT IN O2 SATS--UP TO 100%, INCREASED AERATION AND DECREASED WORK OF BREATHING. PT STATES SHE IS FEELING MUCH BETTER AND THE TIGHTNESS IN HER CHEST IS GONE. INITIAL HEART RATE IN 150'S-190'S, AND PT IS IN ATRIAL FIBRILLATION WITH RVR. PT DOES NOT HAVE A HISTORY OF THIS OR ANY CARDIAC ARRHYTHMIA. INITIAL BP READINGS WERE IN 80'S SYSTOLIC--UP WITH SMALL FLUID BOLUS CARDIZEM DRIP INITIATED WITH DECREASED IN HEART RATE, BUT ONLY DOWN TO 120'S- 130'S. GIVEN DIGOXIN IV PT HAD CONTINUED IMPROVEMENT IN HEART RATE AND BP NORMALIZING UP TO > 100 SYSTOLIC CONSISTENTLY. 2251--PT HAS JUST CONVERTED TO NSR, RATE DOWN TO THE 80'S, WITH BP IN 120'S SYSTOLIC PT CONTINUED TO HAVE IMPROVEMENT IN HER SYMPTOMS ECG Initial ECG Impression Date: Feb 24, 2019 Initial ECG Impression Time: 19:48 Initial ECG Rate: 188 Initial ECG Rhythm: A Fib/Flutter (WITH RVR) Initial ECG Impression: Nonspecific Changes EKG : EKG Time: 20:04 Rate: 126 Rhythm: A Fib/Flutter (WITH RVR, NON-SPECIFIC CHANGES) Comment EKG #3--AT 2218--RATE 113--ATRIAL FIB WITH RVR, NONSPECIFIC CHANGES EKG #4--AT 2252--RATE 106--SINUS RHYTHM, NO SPECIFIC CHANGES IN LATERAL LEADS Diagnostic Imaging Comments CXR--BIBASILAR ATELECTASIS/INFILTRATES, BILATERAL PLEURAL EFFUSIONS--PER RADIOLOGIST REPORT AT 2036. DISCUSSED WITH RADIOLOGIST THE LARGE AMOUNT OF FREE AIR UNDER LEFT DIAPHRAGM, HE ADVISES REPEAT CT SCAN --AT 2044. CT CHEST/ABDOMEN/PELVIS--INCREASE IN AMOUNT OF FREE AIR AND FREE FLUID IN ABDOMEN--CONCERN FOR PERFORATION. BILATERAL PLEURAL EFFUSIONS, WITH SIGNIFICANT ATELECTASIS IN BOTH LUNGS. PER RADIOLOGIST VIA PHONE AT 2200. Reviewed: Reviewed by Me, Discussed w/Radiologist Critical Care Note Critical Care Start Time: 19:45 Stop Time: 23:00 Departure Communication (Admissions) 2204--SPOKE WITH DR. ROMAN, HE ADVISES VANCOMYCIN AND MEROPENEM, AND ADMIT TO SURGEON IN ANTICIPATION OF EMERGENT SURGERY. 2212--SPOKE WITH DR. MONTEJO, HE WILL ATTEMPT TO CONTACT DR. PEARSON AND CALL ME BACK. 2217--SPOKE WITH DR. ROMO, HE AGREES TO PLAN OF CARE REGARDING CARDIAC ISSUES. HE AGREES WITH HOLDING OF ASPIRIN AND LOVENOX/HEPARIN DUE TO RECENT SURGERY AND NEED FOR EMERGENT SURGERY. HE OK'S PT FOR EMERGENCY SURGERY FROM CARDIAC STANDPOINT. 2254--DR. MONTEJO HERE, CARE TURNED OVER TO HIM. HE WILL BE TAKING PT TO SURGERY TONIGHT. Impression Primary Impression: Perforated abdominal viscus Additional Impressions: S/P RECENT LAPAROSCOPY FOR LYSIS OF ADHESIONS ON 02/21/19 NEW ONSET ATRIAL FIBRILLATION WITH RVR Acute respiratory failure Acute renal failure SHOCK-SUSPECT MULTIFACTORIAL-SEPSIS,CARDIOGENIC,RESP FAILURE,HYPOVOLEMIC Elevated troponin UTI (urinary tract infection) Bilateral pleural effusion BIBASILAR ATELECTASIS OR INFILTRATES Hypovolemia dehydration IDDM (insulin dependent diabetes mellitus) Lactic acidosis Disposition: ADMITTED INPATIENT (TO SURGERY) Condition: Improved (BUT SERIOUS) Admissions Decision to Admit Reason: Admit from ER (General) (TO SURGERY) Decision to Admit/Date: Feb 24, 2019 Time/Decision to Admit Time: 22:05 Departure-Patient Inst. Referrals: HARSH WALTON MD (PCP) Primary Care Physician TOMMY DAVISON DO Feb 25, 2019 07:23
--- NOTE | 2019-02-25 07:31 | NUR ---
PTD VANCOMYCIN LABS: SCR 1.43(2.07) PLAN: PATIENT RECEIVED VANCOMYCIN 1GRAM IV 02/24 @2350, WE WILL SCHEDULE DOSING OF VANCOMYCIN 1 GRAM IV DAILY @ 1900 AND CHECK A TROUGH LEVEL ON 02/26 (PRIOR TO 3RD DOSE, DUE TO CHANGING RENAL FXN).
[2019-02-25] MEDS ORDERED: FLU QUADRIvalent (5+ YOA) 2019-2020 (AFLURIA) 0.5 ML IM ONE (07:45)
--- NOTE | 2019-02-25 08:12 | Diagnostic Imaging Report ---
INDICATION: Respiratory failure. Semiupright portable AP view of the chest is obtained. FINDINGS: Since a study of earlier in the day, there has been advancement of the endotracheal tube with tip now just below the thoracic inlet. Nasogastric tube passes into the stomach. There is continued left basilar infiltrate and probable left pleural fluid or thickening. No pneumothorax is identified. IMPRESSION: Stable chest post advancement of endotracheal tube. Dictated by: Dictated on workstation # [id number]
--- NOTE | 2019-02-25 08:39 | Diagnostic Imaging Report ---
INDICATION: Postop. Patient has history of atrial fibrillation. TIME OF EXAM: 6:02 AM Correlation is made with prior exam from 02/24/2019. FINDINGS: The endotracheal tube has a tip in good position above the nomi. The nasogastric tube passes below the diaphragm. The tip is in the region of the gastric body. Heart size is stable. There is residual atelectasis in the left lung base. There is complete obscuration of the left hemidiaphragm. The right lung is clear. There is no pneumothorax. The pulmonary vascularity is normal. IMPRESSION: There is increased density to the left lung base obscuring left hemidiaphragm consistent with infiltrate or atelectasis. This does appear to be slightly improved when compared with examination one day earlier. In addition, the right lung base does demonstrate improved aeration when compared with one day earlier. Dictated by: Dictated on workstation # [id number]
--- NOTE | 2019-02-25 08:45 | Consultation - Hospitalist ---
[facility] 02/25/19 0845: HPI History of Present Illness: HPI/Chief Complaint Pt is a 73 y.o F w/ PMH of HTN, insulin dependent DMII, Paroxysmal Afib, and colectomy w/ permanent ileostomy since 2000 2/2 Colon cancer, who presented to ED w/ progressively increasing diffuse abdominal pain s/p GI surgery by Dr. Tom on 02/21/19 to repair adhesions. Pt was at the ER 3 days ago (02/22/19) for the same sx, had a negative CT (nl post-op impression) and was sent home with abx for UTI Monday (02/22/19) afternoon; pt was back at the ED later that same night w/ inc pain and was d/c home again that evening with the abd pain accredited to excess gas s/p laparoscopic surgery. Per daughter, pt's abd pain was still not controlled on Monday (02/23/19) and on 02/24 pt developed confusion as well where she did not recognize her daughter; per daughter, this is not pt's baseline mental status and that she is alert and oriented x4 normally. The confusion was accompanied by SOA and dyspnea as well. so pt was brought back to the ED. While at the hospital, pt had an episode of hypotension and Afib RVR, which has resolved since, and developed respiratory failure for which she was put on a ventilator (Managed by Dr. Willett). Per daughter, pt has not been having any N/V/D/F, dysuria, CP, or palpitations but has not been able to eat or drink much 2/2 pain. Pt was seen by gen-surg and was taken to surgery yesterday; 2 bowel perforations were found and a partial small bowel and omental resection was done. Source: family Date Seen 02/25/19 Attending Physician Jung Willett Mark D MD Referring Physician Date of Admission Home Medications & Allergies Home Medications Reviewed patient Home Medication Reconciliation performed by pharmacy medication reconciliations windmill technician and/or nursing. Patients Allergies have been reviewed. Allergies Allergies Coded Allergies levofloxacin (Verified Adverse Reaction, Mild, RASH, 07/06/12) amoxicillin (Unverified Adverse Reaction, Unknown, 05/28/14) YEAST INFECTION latex (Unverified Adverse Reaction, Unknown, 04/18/18) Past [id number] Hx Patient Social History Employed/Student: retired Alcohol Use: Denies Use Recreational Drug Use: No Smoking Status: Never a Smoker 2nd Hand Smoke Exposure: No Recent Foreign Travel: No Contact w/other who traveled: No Recent Hopitalizations: Yes Recent Infectious Disease Expo: No Immunizations Up To Date Tetanus Booster (TDap): Unknown Pediatric: Yes Date of Pneumonia Vaccine: Jan 06, 2015 Date of Influenza Vaccine: Feb 20, 2018 Seasonal Allergies Seasonal Allergies: No Past Medical History Surgeries: Abdominal, Appendectomy, Breast, Cardiac, Eye Surgery, Hysterectomy, Oophorectomy, Renal Currently Using CPAP: No Currently Using BIPAP: No Cardiac: High Cholesterol, Hypertension Neurological: Headaches /Migraines, Neuropathy 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: Yes (HYSTERECTOMY) Sexually Transmitted Disease: No HIV/AIDS: No Hysterectomy, Menopausal Genitourinary: Kidney Stones Gastrointestinal: Gastroesophageal Reflux, Obstructive Bowel Musculoskeletal: Chronic Back Pain, Gout Endocrine: Diabetes, Insulin dep, Hypothyroidsim HEENT: Cataract Cancer: Colon Did You Recieve Any Treatments: Yes What Type of Treatment Did You: Chemotherapy, Surgical Intervention History of Blood Disorders: No Adverse Reaction to Blood [place]: No Family History Cancer 03 FATHER, , Onset:60 years & older 03 MOTHER, , Onset:60 years & older 09 BROTHER, , Onset:60 years & older 09 BROTHER, , Onset:60 years & older 09 BROTHER, Onset:60 years & older 09 SISTER, , Onset:60 years & older Cancer of colon 09 BROTHER, , Onset:60 years & older Dementia 09 SISTER, Onset:60 years & older Family history: Diabetes mellitus 09 SISTER, , Onset:60 years & older Heart disease 03 FATHER, , Onset:60 years & older 09 SISTER, , Onset:60 years & older History of - respiratory disease 09 BROTHER, Onset:60 years & older Prostate cancer 09 BROTHER, Onset:60 years & older Stroke 03 MOTHER, , Onset:50's - 60 Heart Disease, Cancer, CVA Review of Systems ROS-Unable to Obtain: 2/2 AMS Physical Exam Physical Exam Vital Signs Vital Signs - First Documented 02/24/19 02/24/19 19:44 20:35 Temp 37.0 Pulse 170 Resp 32 B/P (MAP) 147/68 (94) Pulse Ox 91 O2 Delivery Room Air O2 Flow Rate 10.00 FiO2 50 Capillary Refill : Less Than 3 Seconds Height, Weight, BMI Height: 5'5.00" Weight: 160lbs. 0.0oz. 72.420883ap; 21.79 BMI Method:Stated General Appearance: Obese, Other (LETHARGIC) Eyes: Bilateral Eye PERRL, Bilateral Eye EOMI HEENT: PERRL/EOMI Neck: Normal Inspection Respiratory: No Accessory Muscle Use, Decreased Breath Sounds (IN BASE), Rales (IN BASES); No Respiratory Distress, No Wheezing; Other (On a ventilator) Cardiovascular: Regular Rate, Rhythm, No Edema, No JVD, No Murmur, Normal Peripheral Pulses Gastrointestinal: Normal Bowel Sounds, Soft, Distended, Tenderness, Other ( SURGICAL INCISIONS ARE INTACT WITHOUT SIGNS OF INFECTION; ILEOSTOMY IS IN PLACE. ) Extremity: Normal Capillary Refill, Normal Inspection, Non Tender, No Calf Tenderness, No Pedal Edema Neurologic/Psychiatric: No Alert, No Oriented x3; Other (Sedated;AWAKE BUT DROWSY/LETHARGIC; does shake head no when asked about pain) Skin: Warm/Dry; No Cyanosis; Pallor Lymphatic: No Adenopathy Results Results/Procedures Labs Laboratory Tests 02/24/19 19:58 02/25/19 04:40 Patient resulted labs reviewed. Assessment/Plan Assessment and Plan Assess & Plan/Chief Complaint Perforated abdominal viscus -Hx of colon cancer w/ permanent ileostomy -S/P recent laparoscopy for lysis of adhesion on 02/21/19 -Post-op after repair on02/24; -Open abdomen at this time -Pain controlled at this time Acute respiratory failure -with bilat pleural effusions and bibasilar infiltrates -controlled on Ventilator, Managed by Primary -On IV ABX: Meropenem and vancomycin Paroxysmal Afib RVR -RVR, Rate controlled at this time -Cardiac monitoring -Defer anticoagulation until cleared by surgeon and cardiology (consulted) Acute renal failure -IVF -Hold nephrotoxic meds -BUN and Cr trending down -Decreased urine output; monitor Recent UTI (urinary tract infection) -Covered on ABC -urine culture from 02/22 shows no growth IDDMII (insulin dependent diabetes mellitus) -On Aspart and Glargine at home -Control on sliding scale Aspart while inpatient -Monitor blood sugar q6hrs Lactic acidosis -Monitor at this time Hx HTN -Hold home medications (Losartan) at this time Overall assessment: Pt is very sick at this time and only some-what responsive. Asked daughter about code status and advance directives; daughter state they have talked about it, but at this time she feels like pt will be able to recover so her status is full code; pt does have a POA. Clinical Quality Measures DVT/VTE Risk/Contraindication: Risk Factor Score Per Nursin RFS Level Per Nursing on Admit: 4+=Very High Copy Copies To 1: HARSH WALTON MD, KATELYN M MD 02/25/19 1641: HPI Referring Physician Dr Willett Past [id number] Hx Past Med/Social Hx: Reviewed Nursing Past Med/Soc Hx Family History Cancer 03 FATHER, , Onset:60 years & older 03 MOTHER, , Onset:60 years & older 09 BROTHER, , Onset:60 years & older 09 BROTHER, , Onset:60 years & older 09 BROTHER, Onset:60 years & older 09 SISTER, , Onset:60 years & older Cancer of colon 09 BROTHER, , Onset:60 years & older Dementia 09 SISTER, Onset:60 years & older Family history: Diabetes mellitus 09 SISTER, , Onset:60 years & older Heart disease 03 FATHER, , Onset:60 years & older 09 SISTER, , Onset:60 years & older History of - respiratory disease 09 BROTHER, Onset:60 years & older Prostate cancer 09 BROTHER, Onset:60 years & older Stroke 03 MOTHER, , Onset:50's - 60 Review of Systems Constitutional: see HPI Results Results/Procedures Imaging: Reviewed Imaging Report Diagnosis/Problems Diagnosis/Problems (1) Atrial fibrillation with RVR (2) Perforated abdominal viscus Status: Acute (3) Acute renal failure Status: Acute (4) Hypovolemia dehydration Status: Acute (5) Bilateral pleural effusion Status: Acute (6) IDDM (insulin dependent diabetes mellitus) Status: Acute (7) Lactic acidosis Status: Acute (8) Acute respiratory failure Status: Acute (9) UTI (urinary tract infection) Status: Acute Copy Copies To 1: HARSH WALTON MD Supervisory-Addendum Brief Verification & Attestation Participated in pt care: history, MDM, physical Personally performed: exam, history, MDM, supervision of care Care discussed with: Medical Student Procedures: n/a Results interpretation: Verified all documentation Verification and Attestation of Medical Student E/M Service A medical student performed and documented this service in my presence. I reviewed and verified all information documented by the medical student and made modifications to such information, when appropriate. I personally performed the physical exam and medical decision making. Abigail Saleem, Feb 25, 2019,16:41 [facility] Feb 25, 2019 08:45 ABIGAIL SALEEM MD Feb 25, 2019 16:41
[2019-02-25] MEDS: PANTOPRAZOLE 40 MG (PROTONIX) VIAL IV SCH (08:46)
--- NOTE | 2019-02-25 09:04 | Progress Note - Surgery ---
BRITTANY RHODES,MED STUDENT 02/25/19 0904: Subjective Date Seen by a Provider: Feb 25, 2019 Time Seen by a Provider: 07:30 Subjective/Events-last exam Patient seen and examined. Intubated and sedated in ICU. Lactic acid trending down. Family at bedside. Focused Exam Lactate Level 02/24/19 21:58: Lactic Acid Level 3.85*H 02/25/19 05:40: Lactic Acid Level 2.56*H 02/25/19 07:11: Lactic Acid Level 2.36*H Time of Focused Exam: 22:00 Lactic Acid Level Laboratory Tests Test 02/25/19 05:40 02/25/19 07:11 Lactic Acid Level 2.56 MMOL/L (0.50-2.00) *H 2.36 MMOL/L (0.50-2.00) *H Objective Exam Vital Signs Date Time Temp Pulse Resp B/P (MAP) Pulse Ox O2 Delivery O2 Flow Rate FiO2 02/25/19 06:40 91 18 94 80 02/25/19 06:30 87 164/48 (86) 97 Mechanical Ventilator 80.00 02/25/19 06:00 90 154/40 (78) 96 Mechanical Ventilator 80.00 02/25/19 05:30 92 158/41 (80) 97 Mechanical Ventilator 80.00 02/25/19 05:00 Mechanical Ventilator 02/25/19 05:00 94 Mechanical Ventilator 80 02/25/19 05:00 36.0 90 14 151/40 (77) 97 Mechanical Ventilator 80.00 02/25/19 05:00 36.2 14 118/50 (72) 97 Mechanical Ventilator 02/25/19 04:50 14 118/49 (72) 97 Mechanical Ventilator 02/25/19 04:50 96 171/45 (87) 97 Mechanical Ventilator 80.00 02/25/19 04:45 Mechanical Ventilator 02/25/19 04:40 14 134/54 (80) 96 02/25/19 04:30 14 134/51 (78) 97 Mechanical Ventilator 02/25/19 04:30 Mechanical Ventilator 02/25/19 04:30 101 212/48 (102) 96 Mechanical Ventilator 80.00 02/25/19 04:20 14 139/52 (81) 96 Mechanical Ventilator 02/25/19 04:15 Mechanical Ventilator 02/25/19 04:15 36.06210 90 14 151/40 97 Mechanical Ventilator 10.00 02/25/19 04:15 92 177/35 (82) 96 Mechanical Ventilator 80.00 02/25/19 04:10 14 141/54 (83) 96 Mechanical Ventilator 02/25/19 04:05 36.2 91 14 170/40 (83) 96 Mechanical Ventilator 80.00 02/25/19 04:05 93 14 98 80 02/25/19 04:02 88 02/25/19 04:01 36.2 16 177/59 (98) 99 Mechanical Ventilator 02/25/19 04:01 Mechanical Ventilator 02/24/19 23:59 37.0 106 22 151/58 (81) 93 NIV Bilevel 02/24/19 20:53 142 28 94 50.00 02/24/19 20:35 95 NIV Bilevel 50 02/24/19 20:30 37.0 141 20 118/63 98 NIV Bilevel 02/24/19 20:08 170 32 147/68 02/24/19 19:44 OxyMask 10.00 02/24/19 19:44 37.0 170 32 147/68 (94) 91 Room Air I & O 02/25/19 07:00 Intake Total 3360 ml Output Total 200 ml Balance 3160 ml Capillary Refill : Less Than 3 Seconds General Appearance: No Apparent Distress, Chronically ill Neck: Normal Inspection Respiratory: Crackles, Other (on vent) Cardiovascular: Regular Rate, Rhythm, No Murmur, Normal Peripheral Pulses Gastrointestinal: soft, distended (less than yesterday) Extremity: No Pedal Edema Neurologic/Psychiatric: Oriented x3, No Motor/Sensory Deficits, Other (AWAKE BUT DROWSY/LETHARGIC. ) Skin: Warm/Dry, Pallor Results Lab Laboratory Tests 02/24/19 19:58: White Blood Count 9.0, Red Blood Count 4.45, Hemoglobin 14.6, Hematocrit 43, Mean Corpuscular Volume 96, Mean Corpuscular Hemoglobin 33, Mean Corpuscular Hemoglobin Concent 34, Red Cell Distribution Width 13.9, Platelet Count 191, Mean Platelet Volume 10.0, Neutrophils (%) (Auto) 75, Lymphocytes (%) (Auto) 9L, Monocytes (%) (Auto) 16H, Eosinophils (%) (Auto) 0, Basophils (%) (Auto) 0, Neutrophils # (Auto) 6.7, Lymphocytes # (Auto) 0.8L, Monocytes # (Auto) 1.4H, Eosinophils # (Auto) 0.0, Basophils # (Auto) 0.0, Prothrombin Time 17.2H, INR Comment 1.3, Activated Partial Thromboplast Time 30, Sodium Level 134L, Potassium Level 4.1, Chloride Level 102, Carbon Dioxide Level 18L, Anion Gap 14, Blood Urea Nitrogen 56H, Creatinine 2.07H, Estimat Glomerular Filtration Rate 23, BUN/Creatinine Ratio 27, Glucose Level 157H, Lactic Acid Level 4.33*H, Calcium Level 8.1L, Corrected Calcium 8.7, Magnesium Level 1.9, Total Bilirubin 0.7, Aspartate Amino Transf (AST/SGOT) 24, Alanine Aminotransferase (ALT/SGPT) 17, Alkaline Phosphatase 41, Total Creatine Kinase 73, Creatine Kinase MB 2.2, Myoglobin 183.1H, Troponin I 0.039H, B-Type Natriuretic Peptide 111.2H, Total Protein 6.2L, Albumin 3.2, Amylase Level 99, Lipase 24, TSH [place] Testing 0.41 02/24/19 20:16: Glucometer 140H 02/24/19 20:43: Urine Color YELLOW, Urine Clarity CLEAR, Urine pH 5, Urine Specific [place] 1.015L, Urine Protein 2+H, Urine Glucose (UA) NEGATIVE, Urine Ketones 1+H, Urine Nitrite NEGATIVE, Urine Bilirubin NEGATIVE, Urine Urobilinogen NORMAL, Urine Leukocyte Esterase 1+H, Urine RBC (Auto) 1+H, Urine RBC RARE, Urine WBC 5-10H, Urine Squamous Epithelial Cells 2-5, Urine Crystals PRESENTH, Urine Amorphous Sediment MOD JONATHAN URATESH, Urine Bacteria FEWH, Urine Casts PRESENT, Urine Hyaline Casts 0-2H, Urine Mucus NEGATIVE, Urine Culture Indicated CULTURE PENDING 02/24/19 20:50: Blood Gas Puncture Site RIGHT RADIAL, Blood Gas Patient Temperature 37.0, Arterial Blood pH 7.35L, Arterial Blood Partial Pressure CO2 30L, Arterial Blood Partial Pressure O2 80, Arterial Blood HCO3 16*L, Arterial Blood Total CO2 16.8L , Arterial Blood Oxygen Saturation 95, Arterial Blood Base Excess -8.7L, Kenny Test YES-POS, Blood Gas Ventilator Setting NO, Blood Gas Inspired Oxygen 10L 02/24/19 21:58: Lactic Acid Level 3.85*H 02/25/19 01:25: Blood Gas Puncture Site LEFT RADIAL, Blood Gas Patient Temperature 37.2, Arterial Blood pH 7.40, Arterial Blood Partial Pressure CO2 27L, Arterial Blood Partial Pressure O2 68L, Arterial Blood HCO3 16*L, Arterial Blood Total CO2 17. 1L, Arterial Blood Oxygen Saturation 92L, Arterial Blood Base Excess -7.6L, Kenny Test YES-POS, Blood Gas Ventilator Setting YES, Blood Gas Inspired Oxygen 100% 02/25/19 04:40: Blood Gas Puncture Site LEFT ARTLINE, Blood Gas Patient Temperature 36.2, Arterial Blood pH 7.28*L, Arterial Blood Partial Pressure CO2 42, Arterial Blood Partial Pressure O2 91, Arterial Blood HCO3 19L, Arterial Blood Total CO2 20.8L, Arterial Blood Oxygen Saturation 96, Arterial Blood Base Excess -6.4L, Kenny Test YES-POS, Blood Gas Ventilator Setting YES, Blood Gas Inspired Oxygen 80%, White Blood Count 6.2, Red Blood Count 3.92L, Hemoglobin 12.9, Hematocrit 38, Mean Corpuscular Volume 96, Mean Corpuscular Hemoglobin 33, Mean Corpuscular Hemoglobin Concent 34, Red Cell Distribution Width 13.5, Platelet Count 161, Mean Platelet Volume 9.9, Neutrophils (%) (Auto) 69, Lymphocytes (%) (Auto) 10L, Monocytes (%) (Auto) 21H, Eosinophils (%) (Auto) 0, Basophils (%) (Auto) 0, Neutrophils # (Auto) 4.3, Lymphocytes # (Auto) 0.6L, Monocytes # (Auto) 1.3H, Eosinophils # (Auto) 0.0, Basophils # (Auto) 0.0, Sodium Level 137, Potassium Level 4.3, Chloride Level 109H, Carbon Dioxide Level 18L, Anion Gap 10, Blood Urea Nitrogen 49H, Creatinine 1.43H, Estimat Glomerular Filtration Rate 36, BUN/Creatinine Ratio 34, Glucose Level 144H, Calcium Level 6.5L, Phosphorus Level 3.3, Magnesium Level 1.5L 02/25/19 05:40: Lactic Acid Level 2.56*H 02/25/19 07:11: Lactic Acid Level 2.36*H Microbiology 02/24/19 Influenza Types A,B Antigen (ESTIVEN) - Final, Complete Assessment/Plan Assessment/Plan Assessment/Plan Pneumoperitoneum Tachycardia Respiratory Failure B/L Pleural Effusions with atelectasis and consolidation S/P Exploratory Laparotomy and small bowel resection Patient is intubated and sedated in ICU. Will continue to monitor on ventilator. Lactic acid is trending down. Good urine output. Continue antibiotics, IV fluids, and pain control Clinical Quality Measures DVT/VTE Risk/Contraindication: Risk Factor Score Per Nursin RFS Level Per Nursing on Admit: 4+=Very High MISSY WILLETT DO 02/25/19 1604: Subjective Time Seen by a Provider: 15:36 Subjective/Events-last exam Pt is intubated but appears comfortable and opens eyes spontaneously. RT is weaning down O2. Objective Exam Respiratory: Decreased Breath Sounds Gastrointestinal: soft Assessment/Plan Assessment/Plan Assessment/Plan Urine output is only 100ml since 7am, so this is a little low, will increase fluids. Wean from vent, but my feeling is to go very slow on extubation because she has very poor lung function at this time. Continue pain control, may place VAC tomorrow on midline incision. Supervisory-Addendum Brief Verification & Attestation Participated in pt care: history, MDM, physical Personally performed: exam, history, MDM Care discussed with: Medical Student, MERCHANDISE MANAGER Procedures: n/a Verification and Attestation of Medical Student E/M Service A medical student performed and documented this service in my presence. I reviewed and verified all information documented by the medical student and made modifications to such information, when appropriate. I personally performed the physical exam and medical decision making. Missy Willett, Feb 25, 2019,16:04 BRITTANY RHODES,MED STUDENT Feb 25, 2019 09:04 MISSY WILLETT DO Feb 25, 2019 16:04
[2019-02-25] MEDS: fentaNYL INJECTION 1,250 MCG in NS (IVPB) 250 ML IV SCH (09:05)
--- NOTE | 2019-02-25 11:06 | Consultation-Cardiology ---
HPI-Cardiology Cardiology Consultation Date of Consultation 02/25/19 Date of Admission Time Seen by Provider: 11:00 Indication: Atrial fibrillation HPI 73-year-old lady with history of colon cancer, history of colon resection has been in remission, had history of colostomy, underwent surgical intervention last week with release of adhesions, continue to have abdominal pain after discharge, loss of appetite, condition deteriorated until yesterday when she was admitted and had emergency surgery and colon resection for perforated viscus. She is currently intubated and ventilator dependent and sedated, unable to provide any history history was obtained by interviewing her daughter and reviewing her records did not have any chest pain, was in atrial fibrillation on arrival to the emergency room and converted to sinus rhythm on Cardizem drip in the OR Home Medications & Allergies Allergies: Coded Allergies: levofloxacin (Verified Adverse Reaction, Mild, RASH, 07/06/12) amoxicillin (Unverified Adverse Reaction, Unknown, 05/28/14) YEAST INFECTION latex (Unverified Adverse Reaction, Unknown, 04/18/18) Home Medication List Reviewed: Yes [id number]-Gptqpi Hx Patient Social History Marital Status: Employed/Student: retired Alcohol Use: Denies Use Recreational Drug Use: No Smoking Status: Never a Smoker Former smoker/When Quit: Jul 07, 1962 2nd Hand Smoke Exposure: No Recent Foreign Travel: No Recent Infectious Disease Expo: No Recent Hopitalizations: Yes Immunizations Up To Date Tetanus Booster (TDap): Unknown Date of Pneumonia Vaccine: Jan 06, 2015 Date of Influenza Vaccine: Feb 20, 2018 Past Medical History Discussed below Family Medical History Significant Family History: Heart Disease, Cancer, CVA Family History: Cancer 03 FATHER, , Onset:60 years & older 03 MOTHER, , Onset:60 years & older 09 BROTHER, , Onset:60 years & older 09 BROTHER, , Onset:60 years & older 09 BROTHER, Onset:60 years & older 09 SISTER, , Onset:60 years & older Cancer of colon 09 BROTHER, , Onset:60 years & older Dementia 09 SISTER, Onset:60 years & older Family history: Diabetes mellitus 09 SISTER, , Onset:60 years & older Heart disease 03 FATHER, , Onset:60 years & older 09 SISTER, , Onset:60 years & older History of - respiratory disease 09 BROTHER, Onset:60 years & older Prostate cancer 09 BROTHER, Onset:60 years & older Stroke 03 MOTHER, , Onset:50's - 60 Review of Systems-General Review of Systems Constitutional: No fever; malaise, weakness, other (Sedated and intubated) EENTM: no symptoms reported Respiratory: see HPI, orthopnea, short of breath; No wheezing Cardiovascular: see HPI; No edema, No palpitations, No syncope Gastrointestinal: see HPI, abdominal pain; No diarrhea; loss of appetite, nausea; No vomiting Genitourinary: see HPI Musculoskeletal: no symptoms reported Skin: no symptoms reported Psychiatric/Neurological: No Symptoms Reported Reviewed Test Results Reviewed Test Results Lab Laboratory Tests Test 02/24/19 19:58 02/24/19 20:16 02/24/19 20:43 02/24/19 20:50 Range/Units White Blood Count 9.0 4.3-11.0 10^3/uL Red Blood Count 4.45 4.35-5.85 10^6/uL Hemoglobin 14.6 11.5-16.0 G/DL Hematocrit 43 35-52 % Mean Corpuscular Volume 96 80-99 FL Mean Corpuscular Hemoglobin 33 25-34 PG Mean Corpuscular Hemoglobin Concent 34 32-36 G/DL Red Cell Distribution Width 13.9 10.0-14.5 % Platelet Count 191 130-400 10^3/uL Mean Platelet Volume 10.0 7.4-10.4 FL Neutrophils (%) (Auto) 75 42-75 % Lymphocytes (%) (Auto) 9 L 12-44 % Monocytes (%) (Auto) 16 H 0-12 % Eosinophils (%) (Auto) 0 0-10 % Basophils (%) (Auto) 0 0-10 % Neutrophils # (Auto) 6.7 1.8-7.8 X 10^3 Lymphocytes # (Auto) 0.8 L 1.0-4.0 X 10^3 Monocytes # (Auto) 1.4 H 0.0-1.0 X 10^3 Eosinophils # (Auto) 0.0 0.0-0.3 10^3/uL Basophils # (Auto) 0.0 0.0-0.1 10^3/uL Prothrombin Time 17.2 H 12.2-14.7 SEC INR Comment 1.3 0.8-1.4 Activated Partial Thromboplast Time 30 24-35 SEC Sodium Level 134 L 135-145 MMOL/L Potassium Level 4.1 3.6-5.0 MMOL/L Chloride Level 102 98-107 MMOL/L Carbon Dioxide Level 18 L 21-32 MMOL/L Anion Gap 14 5-14 MMOL/L Blood Urea Nitrogen 56 H 7-18 MG/DL Creatinine 2.07 H 0.60-1.30 MG/DL Estimat Glomerular Filtration Rate 23 BUN/Creatinine Ratio 27 Glucose Level 157 H 70-105 MG/DL Lactic Acid Level 4.33 *H 0.50-2.00 MMOL/L Calcium Level 8.1 L 8.5-10.1 MG/DL Corrected Calcium 8.7 8.5-10.1 MG/DL Magnesium Level 1.9 1.6-2.4 MG/DL Total Bilirubin 0.7 0.1-1.0 MG/DL Aspartate Amino Transf (AST/SGOT) 24 5-34 U/L Alanine Aminotransferase (ALT/SGPT) 17 0-55 U/L Alkaline Phosphatase 41 40-136 U/L Total Creatine Kinase 73 29-168 U/L Creatine Kinase MB 2.2 <6.6 NG/ML Myoglobin 183.1 H 10.0-92.0 NG/ML Troponin I 0.039 H <0.028 NG/ML B-Type Natriuretic Peptide 111.2 H <100.0 PG/ML Total Protein 6.2 L 6.4-8.2 GM/DL Albumin 3.2 3.2-4.5 GM/DL Amylase Level 99 25-125 U/L Lipase 24 8-78 U/L TSH [place] Testing 0.41 0.35-4.94 UIU/ML Glucometer 140 H 70-110 MG/DL Urine Color YELLOW Urine Clarity CLEAR Urine pH 5 5-9 Urine Specific [place] 1.015 L 1.016-1.022 Urine Protein 2+ H NEGATIVE Urine Glucose (UA) NEGATIVE NEGATIVE Urine Ketones 1+ H NEGATIVE Urine Nitrite NEGATIVE NEGATIVE Urine Bilirubin NEGATIVE NEGATIVE Urine Urobilinogen NORMAL NORMAL MG/DL Urine Leukocyte Esterase 1+ H NEGATIVE Urine RBC (Auto) 1+ H NEGATIVE Urine RBC RARE /HPF Urine WBC 5-10 H /HPF Urine Squamous Epithelial Cells 2-5 /HPF Urine Crystals PRESENT H /LPF Urine Amorphous Sediment MOD JONATHAN URATES H /LPF Urine Bacteria FEW H /HPF Urine Casts PRESENT /LPF Urine Hyaline Casts 0-2 H /LPF Urine Mucus NEGATIVE /LPF Urine Culture Indicated CULTURE PENDING Blood Gas Puncture Site RIGHT RADIAL Blood Gas Patient Temperature 37.0 Arterial Blood pH 7.35 L 7.37-7.43 Arterial Blood Partial Pressure CO2 30 L 35-45 MMHG Arterial Blood Partial Pressure O2 80 79-93 MMHG Arterial Blood HCO3 16 *L 23-27 MMOL/L Arterial Blood Total CO2 16.8 L 21.0-31.0 MMOL/L Arterial Blood Oxygen Saturation 95 94-100 % Arterial Blood Base Excess -8.7 L -2.5-2.5 MMOL/L Kenny Test YES-POS Blood Gas Ventilator Setting NO Blood Gas Inspired Oxygen 10L Test 02/24/19 21:58 02/25/19 01:25 02/25/19 04:40 02/25/19 05:40 Range/Units Lactic Acid Level 3.85 *H 2.56 *H 0.50-2.00 MMOL/L Blood Gas Puncture Site LEFT RADIAL LEFT ARTLINE Blood Gas Patient Temperature 37.2 36.2 Arterial Blood pH 7.40 7.28 *L 7.37-7.43 Arterial Blood Partial Pressure CO2 27 L 42 35-45 MMHG Arterial Blood Partial Pressure O2 68 L 91 79-93 MMHG Arterial Blood HCO3 16 *L 19 L 23-27 MMOL/L Arterial Blood Total CO2 17.1 L 20.8 L 21.0-31.0 MMOL/L Arterial Blood Oxygen Saturation 92 L 96 94-100 % Arterial Blood Base Excess -7.6 L -6.4 L -2.5-2.5 MMOL/L Kenny Test YES-POS YES-POS Blood Gas Ventilator Setting YES YES Blood Gas Inspired Oxygen 100% 80% White Blood Count 6.2 4.3-11.0 10^3/uL Red Blood Count 3.92 L 4.35-5.85 10^6/uL Hemoglobin 12.9 11.5-16.0 G/DL Hematocrit 38 35-52 % Mean Corpuscular Volume 96 80-99 FL Mean Corpuscular Hemoglobin 33 25-34 PG Mean Corpuscular Hemoglobin Concent 34 32-36 G/DL Red Cell Distribution Width 13.5 10.0-14.5 % Platelet Count 161 130-400 10^3/uL Mean Platelet Volume 9.9 7.4-10.4 FL Neutrophils (%) (Auto) 69 42-75 % Lymphocytes (%) (Auto) 10 L 12-44 % Monocytes (%) (Auto) 21 H 0-12 % Eosinophils (%) (Auto) 0 0-10 % Basophils (%) (Auto) 0 0-10 % Neutrophils # (Auto) 4.3 1.8-7.8 X 10^3 Lymphocytes # (Auto) 0.6 L 1.0-4.0 X 10^3 Monocytes # (Auto) 1.3 H 0.0-1.0 X 10^3 Eosinophils # (Auto) 0.0 0.0-0.3 10^3/uL Basophils # (Auto) 0.0 0.0-0.1 10^3/uL Sodium Level 137 135-145 MMOL/L Potassium Level 4.3 3.6-5.0 MMOL/L Chloride Level 109 H 98-107 MMOL/L Carbon Dioxide Level 18 L 21-32 MMOL/L Anion Gap 10 5-14 MMOL/L Blood Urea Nitrogen 49 H 7-18 MG/DL Creatinine 1.43 H 0.60-1.30 MG/DL Estimat Glomerular Filtration Rate 36 BUN/Creatinine Ratio 34 Glucose Level 144 H 70-105 MG/DL Calcium Level 6.5 L 8.5-10.1 MG/DL Phosphorus Level 3.3 2.3-4.7 MG/DL Magnesium Level 1.5 L 1.6-2.4 MG/DL Test 02/25/19 07:11 Range/Units Lactic Acid Level 2.36 *H 0.50-2.00 MMOL/L Radiology CT CHEST/ABDOMEN/PELVIS WO Clinical indication: Patient with low blood pressure and abdominal pain. Exam: CT scan of the chest, abdomen, and pelvis performed without IV or enteric contrast. Coronal and sagittal reformatted images are created. Auto Exposure Controls were utilized during the CT exam to meet ALARA standards for radiation dose reduction. Comparison: CT scan of the abdomen and pelvis dated 02/22/2019. Findings: CT Chest: There is interval development of a urorl-gg-xsqizioo sized left pleural effusion and minimal right pleural effusion. There is progression of segmental and subsegmental consolidation of both lower lobes and atelectasis/consolidation of the middle lobe and lingula. There is no significant mediastinal or axillary lymphadenopathy. Atherosclerotic disease of the coronary arteries seen. CT abdomen and pelvis: There is interval increased small to moderate amount of free air involving the upper, mid and lower anterior abdominal region. There is increased free air in the abdominal mid and lower regions anteriorly. There is air-fluid level also seen in the mid and lower anterior abdominal region. There are small areas of air within the mesentery in the low mid abdominal region anteriorly which has progressed. There is interval increased free fluid in the left abdomen and pelvis region. The stomach has small amount of fluid within it. There is no intestinal obstruction seen. Postoperative changes with colectomy and right anterior abdominal ileostomy again seen. There is interval decreased intra-abdominal subcutaneous air in the right mid and lower intra-abdominal region. Wing catheter seen in the expected region of the bladder. Prominent mesenteric lymph nodes are again seen. The remainder of this exam shows no significant interval change compared to the prior study of comparison. Impression: 1: There is interval increased amount of now small to moderate intra-abdominal free air. There is also increased free fluid in the left abdomen and pelvis region. There is increased air in the mesentery in the lower abdominal and anterior pelvis region. Given the progression of intra-abdominal free air or free fluid, an intestinal leak or perforation is of concern. Area of concern would be in the anterior low abdomen/pelvis or left lower abdomen/pelvis region. 2: There is interval development of a bgchm-wz-uxchthuo left pleural effusion and small right pleural effusion. There is progression of atelectasis and consolidation of both lungs with the lower lung jimenez affected the most. 3: Stable postoperative changes to the abdomen with colectomy and right abdominal ileostomy. Results of this report was discussed with Dr. Ewelina Hubbard via the telephone on 02/24/2019 at 2200 hours. Dictated by: Dictated on workstation # [id number] Dict: 02/24/192150 Trans: 02/24/192223 Interpreted by: VASIHNAVI LUIS MD Electronically signed by: VAISHNAVI LUIS MD 02/24/192223 Physical Exam Physical Exam Vital Signs Vital Signs - First Documented 02/24/19 02/24/19 19:44 20:35 Temp 37.0 Pulse 170 Resp 32 B/P (MAP) 147/68 (94) Pulse Ox 91 O2 Delivery Room Air O2 Flow Rate 10.00 FiO2 50 Capillary Refill : Less Than 3 Seconds Height, Weight, BMI Height: 5'5.00" Weight: 160lbs. 0.0oz. 72.148018sm; 21.79 BMI Method:Stated General Appearance: Obese, Other (Sedated and intubated) Eyes: Bilateral Eye PERRL, Bilateral Eye EOMI HEENT: TMs Normal Neck: Normal Inspection Respiratory: No Accessory Muscle Use, Decreased Breath Sounds (IN BASE), Rales (IN BASES), Respiratory Distress; No Wheezing; Other (On a ventilator) Cardiovascular: Regular Rate, Rhythm, No Edema, No JVD, No Murmur, Normal Peripheral Pulses Gastrointestinal: Normal Bowel Sounds, Soft, Distended, Tenderness, Other ( SURGICAL INCISIONS ARE INTACT WITHOUT SIGNS OF INFECTION; ILEOSTOMY IS IN PLACE. ) Extremity: Normal Capillary Refill, Normal Inspection, Non Tender, No Calf Tenderness, No Pedal Edema Neurologic/Psychiatric: No Alert, No Oriented x3; Other (Sedated and intubated) Skin: Warm/Dry; No Cyanosis; Pallor Lymphatic: No Adenopathy A/P-Cardiology Admission Diagnosis Acute respiratory failure Paroxysmal atrial fibrillation Coronary artery disease Hypertension Assessment/Plan Acute respiratory failure, ventilator dependent, managed by primary care physician Status post emergency abdominal surgery for perforated viscus and colon resection, had the surgery on February 25, 2019, still intubated. Paroxysmal atrial fibrillation, had a transient atrial fibrillation on arrival to the emergency room with acute illness. Converted to sinus rhythm, continue on IV beta blockers and monitor Coronary artery disease, history of cardiac catheterization in July 2012 showing 50 percent midright coronary artery stenosis, nonobstructive disease, had a borderline disease in the midright coronary artery. Most recent cardiac catheterization done April 2018 revealed mild ectasia in the proximal LAD w ith mild disease in the mid LAD, small vessel disease distally, mild ectasia in the proximal circumflex artery and 40-50 percent stenosis in the mid right coronary artery, nonobstructive disease Hypertension, restarting IV beta blockers and monitoring blood pressure History of colon cancer, history of colon resection and colostomy in the remote past has been in remission and followed by Dr. Branham History of hyperlipidemia History of PAC's/PVC's, continue to monitor heart rate Carotid artery , continue to monitor carotid Syncope, had a syncopal episode in October 2015 probably due to dehydration. Was in renal failure. Improved. Thyroid nodules noted on ultrasound, followed by Dr. Branham and Dr. Simmons Diabetes mellitus, followed and managed by primary care physician. History of colon cancer, history of colostomy. Currently in remission. Followed by Dr. Branham Family history of coronary artery disease. Obstructive sleep apnea, intolerance to CPAP History of appendectomy, kidney stones, hysterectomy. Breast biopsy. Clinical Quality Measures DVT/VTE Risk/Contraindication: Risk Factor Score Per Nursin RFS Level Per Nursing on Admit: 4+=Very High NAYA URIAS MD Feb 25, 2019 11:06
--- NOTE | 2019-02-25 11:10 | NUR ---
Pastoral care visit.
--- NOTE | 2019-02-25 11:12 | NUR ---
Dr. Willett notified of pt's decrease in urine output at this time. New orders received to change IV fluids to LR at 150ml/hr. Will continue to monitor.
--- NOTE | 2019-02-25 13:14 | Diagnostic Imaging Report ---
INDICATION: Central venous catheter evaluation. EXAMINATION: Portable AP view of the chest is obtained. FINDINGS: Since the study of earlier in the day, there has been placement of right upper extremity PICC with tip projecting over the lower superior vena cava. Endotracheal tube is in place with tip just below the thoracic inlet and above the nomi. Left basilar infiltrate and possible mild left pleural fluid or thickening have not changed. Lung apices are not fully included however no definite pneumothorax is seen. IMPRESSION: No evidence of complication post right upper extremity PICC placement. Dictated by: Dictated on workstation # [id number]
[2019-02-25] MEDS: meTOprolol 5 MG/5 ML (LOPRESSOR) VIAL IV SCH ×3 (13:15→18:51)
[2019-02-25] MEDS: LACTATED RINGERS 1,000 ML IV SCH ×2 (13:16→18:28)
[2019-02-25] MEDS: MEROPENEM 500 MG/SWFI 10 ML IV PUSH IV SCH ×4 (15:26→21:59)
--- NOTE | 2019-02-25 15:30 | NUR ---
Dr. Willett at bedside at this time. Updates provided by this RN. Physician made aware of pt's decreased urine output at this time. No new orders given. New orders received to wean pt in am and perform sedation vacation with RT weaning parameters. Will continue to closely monitor pt at this time.
[2019-02-25] MEDS ORDERED: RT-ALBUTEROL/IPRATROPIUM 3 ML (DUONEB) VIAL INH PRN (15:45)
[2019-02-25 16:17] LABS: ABG OXYGEN SATURATION 89 % (94-100); ABG PCO2 32 MMHG (35-45); ABG PH 7.38 (7.37-7.43); ABG PO2 62 MMHG (79-93); ABG TCO2 19.3 MMOL/L (21.0-31.0)
[2019-02-25 16:18] LABS: ALLENS TEST P; INSPIRED O2 40; VENTILATOR YES
[2019-02-25 16:19] LABS: PATIENT TEMP 36.6
[2019-02-25] MEDS: RT-ALBUTEROL/IPRATROPIUM 3 ML (DUONEB) VIAL INH SCH ×2 (18:09→21:40)
[2019-02-25] MEDS ORDERED: VANCOMYCIN 1 GM/NS 250 ML IVPB IV SCH ×2 (19:00)
[2019-02-25] MEDS ORDERED: DILTIAZEM 25 MG/5 ML INJ (CARDIZEM) VIAL ONE (22:19)
[2019-02-25] MEDS ORDERED: NS (IVPB) 50 ML ONE (22:20)
[2019-02-25] MEDS ORDERED: NS (IVPB) 100 ML ONE (22:35)
[2019-02-25] MEDS ORDERED: DILTIAZEM 125 MG/25 ML IV (CARDIZEM) IV ONE (22:36)
[2019-02-25] MEDS ORDERED: NS (IVPB) 250 ML ONE (22:54)
[2019-02-25] MEDS ORDERED: PHENYLEPHRINE INJ 10 MG/ML (FOR DRIP KITS ONLY) ONE (22:54)
[2019-02-25] MEDS ORDERED: MIDAZOLAM 5 MG/5 ML (VERSED) VIAL ONE (22:55)
[2019-02-25] MEDS ORDERED: DILTIAZEM 125 MG/NS 100 ML IV SCH ×2 (23:15)
[2019-02-25] MEDS ORDERED: RT-IPRATROPIUM (ATROVENT) 0.5MG/2.5ML AMP IH PRN (23:15)
[2019-02-25] MEDS ORDERED: meTOprolol 5 MG/5 ML (LOPRESSOR) VIAL IV ONE (23:15)
[2019-02-25] MEDS ORDERED: DILTIAZEM 25 MG/5 ML INJ (CARDIZEM) VIAL IVP ONE (23:30)
[2019-02-25] MEDS ORDERED: LACTATED RINGERS 500 ML IV SCH (23:30)
[2019-02-25] MEDS ORDERED: AMIODARONE (OMNICELL DRIP KIT) 150 MG/3 ML IV ONE ×2 (23:38→23:44)
[2019-02-25] MEDS ORDERED: D5W 100 ML IVPB 100 ML IV ONE ×2 (23:38→23:43)
[2019-02-25] MEDS ORDERED: D5W IV SOLUTION (EXCEL) 0 ML IV ONE (23:49)
[2019-02-25] MEDS: AMIODARONE 450 MG/250 ML D5W EXCEL IV SCH ×2 (23:50)
[2019-02-25] MEDS ORDERED: AMIODARONE 450 MG/9 ML (CORDARONE) VIAL IV ONE (23:50)
[2019-02-26] VITALS (32 sets, daily range): BP systolic 73–233; BP diastolic 29–58
[2019-02-26] MEDS ORDERED: LACTATED RINGERS 500 ML IV SCH ×2 (00:15→04:15)
[2019-02-26] MEDS ORDERED: AMIODARONE 150 MG/D5W 100 ML BOLUS IV ONE ×2 (00:15)
[2019-02-26] MEDS ORDERED: AMIODARONE 450 MG/250 ML D5W EXCEL IV SCH ×2 (00:15)
[2019-02-26] MEDS: LACTATED RINGERS 500 ML IV SCH ×2 (00:20→00:30)
[2019-02-26 00:28] LABS: BASOPHILS % (AUTO) 0 % (0-10); EOSINOPHILS % (AUTO) 0 % (0-10); HEMATOCRIT 30 % (35-52); HEMOGLOBIN 10.1 G/DL (11.5-16.0); LYMPHOCYTES # (AUTO) 0.5 X 10^3 (1.0-4.0); LYMPHOCYTES % (AUTO) 6 % (12-44); MEAN CORPUSCULAR HEMOGLOBIN 33 PG (25-34); MEAN CORPUSCULAR HGB CONC 34 G/DL (32-36); MEAN CORPUSCULAR VOLUME 97 FL (80-99); MEAN PLATELET VOLUME 9.8 FL (7.4-10.4); MONOCYTES # (AUTO) 1.9 X 10^3 (0.0-1.0); MONOCYTES % (AUTO) 23 % (0-12); NEUTROPHILS # (AUTO) 5.9 X 10^3 (1.8-7.8); NEUTROPHILS % (AUTO) 70 % (42-75); PLATELET COUNT 162 10^3/uL (130-400); WHITE BLOOD COUNT 8.3 10^3/uL (4.3-11.0)
[2019-02-26] MEDS: meTOprolol 5 MG/5 ML (LOPRESSOR) VIAL IV SCH ×5 (00:35→23:54)
[2019-02-26] MEDS: PHENYLEPHRINE 10 MG/NS 250 ML IV SCH ×4 (00:40→01:52)
[2019-02-26 00:48] LABS: ALBUMIN 1.7 GM/DL (3.2-4.5); BILIRUBIN,TOTAL 0.5 MG/DL (0.1-1.0); CALCIUM 6.5 MG/DL (8.5-10.1); CREATININE SERUM 1.74 MG/DL (0.60-1.30); POTASSIUM 4.1 MMOL/L (3.6-5.0); TOTAL PROTEIN 3.6 GM/DL (6.4-8.2)
[2019-02-26] MEDS: inSUlin ASPART (NovoLOG) 1 UNIT/0.01 ML (CHARGE PER UNIT) SQ SCH ×5 (01:09→23:57)
[2019-02-26] MEDS: LACTATED RINGERS 1,000 ML IV SCH ×6 (01:16→22:21)
[2019-02-26] MEDS: RT-IPRATROPIUM (ATROVENT) 0.5MG/2.5ML AMP IH SCH ×6 (01:53→22:33)
[2019-02-26] MEDS ORDERED: NOREPINEPHRINE 4 MG/4 ML (LEVOPHED) AMP IV ONE ×2 (03:11→10:49)
[2019-02-26] MEDS ORDERED: NS (IVPB) 0 ML ONE (03:11)
[2019-02-26 03:29] LABS: BASOPHILS % (AUTO) 0 % (0-10); EOSINOPHILS % (AUTO) 0 % (0-10); HEMATOCRIT 30 % (35-52); LYMPHOCYTES # (AUTO) 0.7 X 10^3 (1.0-4.0); LYMPHOCYTES % (AUTO) 7 % (12-44); MEAN CORPUSCULAR HEMOGLOBIN 32 PG (25-34); MEAN CORPUSCULAR HGB CONC 33 G/DL (32-36); MEAN CORPUSCULAR VOLUME 97 FL (80-99); MEAN PLATELET VOLUME 9.8 FL (7.4-10.4); MONOCYTES # (AUTO) 2.1 X 10^3 (0.0-1.0); MONOCYTES % (AUTO) 21 % (0-12); NEUTROPHILS # (AUTO) 7.3 X 10^3 (1.8-7.8); NEUTROPHILS % (AUTO) 72 % (42-75); PLATELET COUNT 171 10^3/uL (130-400); RED CELL DISTRIBUTION WIDTH 13.9 % (10.0-14.5); WHITE BLOOD COUNT 10.1 10^3/uL (4.3-11.0)
[2019-02-26] MEDS ORDERED: NS (IVPB) 100 ML ONE ×2 (03:36→15:13)
[2019-02-26] MEDS ORDERED: fentaNYL (OMNICELL DRIP KIT ONLY) 250 MCG/5 ML AMP ONE (03:36)
[2019-02-26] MEDS: NS IV 1000 ML 1,000 ML IV SCH (03:47)
[2019-02-26 03:55] LABS: CALCIUM 6.5 MG/DL (8.5-10.1); CREATININE SERUM 1.62 MG/DL (0.60-1.30); POTASSIUM 4.1 MMOL/L (3.6-5.0)
[2019-02-26 03:56] LABS: PHOSPHORUS 2.8 MG/DL (2.3-4.7)
[2019-02-26] MEDS ORDERED: MIDAZOLAM 5 MG/5 ML (VERSED) VIAL IV ONE (04:30)
--- NOTE | 2019-02-26 04:57 | NUR ---
NO WEANING TRIAL PER RN DUE TO PATIENT UNSTABLE WILL CONFIRM WITH PAM. Addendum: 02/26/19 at 0458 by CHIDI YU RT Amended: Links added.
[2019-02-26 05:01] LABS: ABG BASE EXCESS -5.4 MMOL/L (-2.5-2.5); ABG OXYGEN SATURATION 93 % (94-100); ABG PCO2 33 MMHG (35-45); ABG PH 7.38 (7.37-7.43); ABG PO2 72 MMHG (79-93); ABG TCO2 19.8 MMOL/L (21.0-31.0)
[2019-02-26 05:06] LABS: ALLENS TEST ART LINE; INSPIRED O2 40%; PATIENT TEMP 37.2; VENTILATOR YES
[2019-02-26] MEDS: POTASSIUM CL 10MEQ/50ML IVPB 50 ML IV SCH (05:12)
[2019-02-26] MEDS: KCL 20 MEQ TAB (K-DUR) PO SCH (05:12)
[2019-02-26] MEDS: MAGNESIUM 1 GM/100 ML IVPB 100 ML IV SCH (05:12)
[2019-02-26] MEDS: MEROPENEM 500 MG/SWFI 10 ML IV PUSH IV SCH ×6 (05:24→22:14)
[2019-02-26] MEDS: NOREPINEPHRINE 4 MG/NS 250 ML DRIP IV SCH ×4 (05:29→10:56)
--- NOTE | 2019-02-26 06:32 | NUR ---
2207: Pt's HR increased to the 170s-190s. Called EICU to notify of the increased HR. EICU Video Monitor in to set Eyes on Patient. Dr. Galvez Viewed Patient. Questions answered. Wesley RN inquired about an EKG, Doctor stated "I have confirmed it is Afib." 2217: Orders Placed for HR. See Order History. 2224: Medication given, See EMAR. 2230: HR Still increased in the 170s-190s. More orders given. See Order History, 2242: Meds Given See EMAR. 2245: Cardizem gtt Started at this time. See Emar. Started at 5mg Per MD order. 2248: Pt Hypotensive at this time. HR still elevated. MD ordered Bolus. See order History. 2300: Orders for Chaz gtt. See Order History 2307: Gave Bolus at this time See eMAR. 2330: HR still increased. BP Low. Orders for Versed and Synchronized Cardioversion ordered. 2332: 2.5mg of Versed Ordered and given. 2333: RT at bedside started to bag patient. [facility] to 100 J. SHock given. 2335: Chaz Increased to 40mcg per MD orders. increased J to 200. 2336: Shock 200 J given. HR still elevated in the 170s. Orders for Amio Bolus and Gtt given. See order History 2348: amio bolus given and gtt started Per protocol see eMAR. 0009: Dr. Willett Notified of patient status and the orders from Dr. Galvez, additional orders received. See order History. 0013: Stopped Cardizem gtt per MD orders. 0333: Started Levo gtt titrating per Protocol. Stopped Chaz gtt.
--- NOTE | 2019-02-26 07:06 | Anesthesia-General Post-Op ---
General Patient Condition Mental Status/LOC: Same as Preop Cardiovascular: Satisfactory Nausea/Vomiting: Absent Respiratory: Satisfactory Pain: Controlled Complications: Absent Post Op Complications Complications None Follow Up Care/Instructions Patient Instructions None needed. Anesthesia/Patient Condition Patient Condition Patient is doing well, no complaints, stable vital signs, no apparent adverse anesthesia problems. No complications reported per nursing. D/C home per [facility] Criteria: EDUARDO Nolan CRNA Feb 26, 2019 07:06
--- NOTE | 2019-02-26 07:25 | NUR ---
Dr. [place] notified of patient status
[2019-02-26] MEDS: fentaNYL INJECTION 1,250 MCG in NS (IVPB) 250 ML IV SCH ×2 (07:48→13:26)
[2019-02-26] MEDS: AMIODARONE 450 MG/250 ML D5W EXCEL IV SCH ×2 (07:50)
--- NOTE | 2019-02-26 08:04 | Cardiology Progress Note ---
Subjective Date Seen by Provider: Feb 26, 2019 Time Seen by Provider: 08:01 Subjective/Events-last exam Patient is sedated and intubated, ventilator dependent Had episode of atrial fibrillation with rapid ventricular response and hypotension last night, currently heart rate is better controlled, blood pressure is slightly better Review of Systems General: Other (Sedated and intubated, unable to provide review of systems) Focused Exam Lactate Level 02/25/19 07:11: Lactic Acid Level 2.36*H 02/26/19 00:15: Lactic Acid Level 3.19*H 02/26/19 02:30: Lactic Acid Level 2.98*H Time of Focused Exam: 22:00 Objective-Cardiology Exam Last Set of Vital Signs Vital Signs 02/26/19 02/26/19 02/26/19 04:00 06:31 06:45 Temp 37.2 Pulse 105 Resp 26 B/P (MAP) 110/38 (62) Pulse Ox 98 O2 Delivery Mechanical Ventilator O2 Flow Rate 40.00 FiO2 40 Capillary Refill : Less Than 3 Seconds I&O Intake and Output 02/26/19 00:00 Intake Total 6453 ml Output Total 500 ml Balance 5953 ml Intake Oral 0 ml IV Total 6453 ml Output Urine Total 500 ml Daily Weight Change No General: Severe Distress, Other (Sedated and intubated) HEENT: Atraumatic Neck: Supple, No Thyromegaly Lungs: Normal Air Movement, Other (Bilateral rhonchi) Heart: Normal S1, Normal S2, No Murmurs, Other (Atrial fibrillation was rapid ventricular response) Abdomen: No Masses, Other (Absent bowel sounds) Extremities: No Clubbing, No Cyanosis, No Edema, Normal Pulses, No Tenderness/Swelling Skin: No Rashes Neuro: Other (Sedated and intubated) Psych/Mental Status: Other (Sedated and intubated) Results Lab Laboratory Tests 02/26/19 00:15 02/26/19 03:15 A/P-Cardiology Admission Diagnosis Acute respiratory failure Paroxysmal atrial fibrillation Coronary artery disease Hypertension Assessment/Plan Acute respiratory failure, ventilator dependent, managed by primary care physi zee Status post emergency abdominal surgery for perforated viscus and colon resection, had the surgery on February 25, 2019, still intubated. Paroxysmal atrial fibrillation, back to atrial fibrillation with rapid ventricular response, unable to tolerate Cardizem due to hypotension, and 10 on amiodarone drip, I will add digoxin Hypotensive shock, continue with IV fluid and monitor blood pressure Coronary artery disease, history of cardiac catheterization in July 2012 showing 50 percent midright coronary artery stenosis, nonobstructive disease, had a borderline disease in the midright coronary artery. Most recent cardiac catheterization done April 2018 revealed mild ectasia in the proximal LAD with mild disease in the mid LAD, small vessel disease distally, mild ectasia in the proximal circumflex artery and 40-50 percent stenosis in the mid right coronary artery, nonobstructive disease History of colon cancer, history of colon resection and colostomy in the remote past has been in remission and followed by Dr. Branham History of hyperlipidemia History of PAC's/PVC's, continue to monitor heart rate Carotid artery , continue to monitor carotid Syncope, had a syncopal episode in October 2015 probably due to dehydration. Was in renal failure. Improved. Thyroid nodules noted on ultrasound, followed by Dr. Branham and Dr. Simmons Diabetes mellitus, followed and managed by primary care physician. History of colon cancer, history of colostomy. Currently in remission. Followed by Dr. Branham Family history of coronary artery disease. Obstructive sleep apnea, intolerance to CPAP History of appendectomy, kidney stones, hysterectomy. Breast biopsy. Clinical Quality Measures DVT/VTE Risk/Contraindication: Risk Factor Score Per Nursin RFS Level Per Nursing on Admit: 4+=Very High NAYA URIAS MD Feb 26, 2019 08:04
[2019-02-26] MEDS ORDERED: DIGOXIN 0.25 MG/ML (LANOXIN) 2 ML AMP IV ONE (08:15)
--- NOTE | 2019-02-26 08:27 | Progress Note - Hospitalist ---
[facility] 02/26/19 0827: Subjective HPI/CC On Admission Date Seen by Provider: Feb 26, 2019 Time Seen by Provider: 08:05 Subjective/Events-last exam Pt still ventilator dependent Per RN, pt became unstable so trial to wean pt off ventilator and sedation was not attempted Urine output is also still very low, urine is deep yellow/orange in colour Pt had an episode of hypotension & Afib RVR last night; seen by Dr. Montana, rate better controlled now Review of Systems Unable to Perform ROS 2/2 pt condition Focused Exam Lactate Level 02/25/19 07:11: Lactic Acid Level 2.36*H 02/26/19 00:15: Lactic Acid Level 3.19*H 02/26/19 02:30: Lactic Acid Level 2.98*H Time of Focused Exam: 22:00 Objective Exam Vital Signs Vital Signs Date Time Temp Pulse Resp B/P (MAP) Pulse Ox O2 Delivery O2 Flow Rate FiO2 02/26/19 06:45 105 26 110/38 (62) 98 Mechanical Ventilator 40.00 02/26/19 06:31 40 02/26/19 04:00 37.2 Capillary Refill : Less Than 3 Seconds General Appearance: Obese, Other (ventilator dependent and sedated) Respiratory: Lungs Clear, No Accessory Muscle Use; No Crackles, No Wheezing Cardiovascular: No JVD, No Murmur, Normal Peripheral Pulses, Irregularly Irregular Extremity: Normal Capillary Refill, Normal Inspection Neurologic/Psychiatric: No Alert, No Oriented x3; Other (sedated) Skin: Normal Color Lymphatic: No Adenopathy Results/Procedures Lab Laboratory Tests 02/26/19 00:15 02/26/19 03:15 Patient resulted labs reviewed. Imaging: Reviewed Imaging Report Assessment/Plan Assessment and Plan Assess & Plan/Chief Complaint Perforated abdominal viscus -Hx of colon cancer w/ permanent ileostomy -S/P recent laparoscopy for lysis of adhesion on 02/21/19 -Post-op after repair on02/24; -Open abdomen at this time -Pain controlled at this time Acute respiratory failure -with bilat pleural effusions and bibasilar infiltrates -controlled on Ventilator, Managed by Primary -On IV ABX: Meropenem and vancomycin Paroxysmal Afib RVR -New episode of Afib RVR last night, Cardiology seen; rate controlled on Amiodarone & digoxin, rhythm is still Afib -RVR, Rate controlled at this time -Cardiac monitoring -Defer anticoagulation until cleared by surgeon and cardiology (consulted) Acute renal failure -IVF, continued -Hold nephrotoxic meds -BUN and Cr which were initially trending down, are now back up again; continue monitoring -Decreased urine output; dark yellow/orange urine; continue monitoring Recent UTI (urinary tract infection) -Covered on ABC -urine culture from 02/22 shows no growth IDDMII (insulin dependent diabetes mellitus) -On Aspart and Glargine at home -Control on sliding scale Aspart while inpatient -Monitor blood sugar q6hrs Lactic acidosis -Monitor at this time Hx HTN -Hold home medications (Losartan) at this time Overall assessment: Pt is very sick at this time and only some-what responsive. Asked daughter about code status and advance directives; daughter state they have talked about it, but at this time she feels like pt will be able to recover so her status is full code; pt does have a POA. Clinical Quality Measures DVT/VTE Risk/Contraindication: Risk Factor Score Per Nursin RFS Level Per Nursing on Admit: 4+=Very High ABIGAIL SALEEM MD 02/26/19 1713: Assessment/Plan Assessment and Plan Assess & Plan/Chief Complaint Pt remains critically ill on antiarrhythmic and vasopressors. UOP still marginal. Will bolus and continue IVF. Discussed case with Dr Montana and Dr Willett. Likely mixed shock, cardiogenic, septic, and hypovolemic. Continue all supportive measures. Blood cultures reveal yeast, Eraxis started. Supervisory-Addendum Brief Verification & Attestation Participated in pt care: history, MDM, physical Personally performed: exam, history, MDM, supervision of care Care discussed with: Medical Student Procedures: n/a Results interpretation: Verified all documentation Verification and Attestation of Medical Student E/M Service A medical student performed and documented this service in my presence. I reviewed and verified all information documented by the medical student and made modifications to such information, when appropriate. I personally performed the physical exam and medical decision making. Abigail Saleem, Feb 26, 2019,17:08 [facility] Feb 26, 2019 08:27 ABIGAIL SALEEM MD Feb 26, 2019 17:13
--- NOTE | 2019-02-26 08:40 | Progress Note - Surgery ---
GILA HAYWOOD,MED STUDENT 02/26/19 0839: Subjective Date Seen by a Provider: Feb 26, 2019 Time Seen by a Provider: 08:20 Subjective/Events-last exam Patient intubated and sedated in ICU. Planned weaning trial was not completed due to patient unstable overnight. Currently on Norepinephrine. SpO2 currently 96% on ventilator. Urine output seems to be improving from yesterday. Family out of the room at this time. Focused Exam Lactate Level 02/25/19 07:11: Lactic Acid Level 2.36*H 02/26/19 00:15: Lactic Acid Level 3.19*H 02/26/19 02:30: Lactic Acid Level 2.98*H Time of Focused Exam: 22:00 Objective Exam Vital Signs Date Time Temp Pulse Resp B/P (MAP) Pulse Ox O2 Delivery O2 Flow Rate FiO2 02/26/19 06:45 105 26 110/38 (62) 98 Mechanical Ventilator 40.00 02/26/19 06:31 101 19 97 40 02/26/19 06:00 114 155/49 (84) 97 Mechanical Ventilator 40.00 02/26/19 05:00 121 138/41 (73) 97 Mechanical Ventilator 40.00 02/26/19 04:00 96 Mechanical Ventilator 40 02/26/19 04:00 121 17 122/46 (71) 96 Mechanical Ventilator 40.00 02/26/19 04:00 37.2 02/26/19 03:00 131 18 93/40 (57) 96 Mechanical Ventilator 40.00 02/26/19 02:00 109 115/50 (71) 95 Mechanical Ventilator 40.00 02/26/19 01:53 131 21 96 40 02/26/19 01:00 152 18 144/44 (77) 93 Mechanical Ventilator 40.00 02/26/19 01:00 152 02/26/19 00:30 142 18 143/42 (75) 93 Mechanical Ventilator 40.00 02/26/19 00:00 37.3 02/26/19 00:00 96 Mechanical Ventilator 40 02/26/19 00:00 137 18 74/34 (47) 93 Mechanical Ventilator 40.00 02/25/19 23:32 158 02/25/19 23:00 160 20 106/44 (64) 94 Mechanical Ventilator 40.00 02/25/19 22:45 165 02/25/19 22:00 118 148/43 (78) 95 Mechanical Ventilator 40.00 02/25/19 21:40 106 18 95 40 02/25/19 21:36 140/41 02/25/19 21:00 99 126/40 (68) 94 Mechanical Ventilator 40.00 02/25/19 20:00 94 107/39 (61) 95 Mechanical Ventilator 40.00 02/25/19 20:00 96 Mechanical Ventilator 40 02/25/19 19:00 97 127/40 (69) 96 Mechanical Ventilator 40.00 02/25/19 19:00 97 02/25/19 18:16 122 22 93 40 02/25/19 18:00 112 167/43 (84) 96 Mechanical Ventilator 40.00 02/25/19 17:00 108 145/40 (75) 96 Mechanical Ventilator 40.00 02/25/19 16:35 40.00 02/25/19 16:00 108 97/36 (56) 96 Mechanical Ventilator 80.00 02/25/19 16:00 98 Mechanical Ventilator 40 02/25/19 15:31 40 02/25/19 15:00 36.6 40.00 02/25/19 15:00 113 157/41 (79) 91 Mechanical Ventilator 80.00 02/25/19 14:00 107 125/37 (66) 93 Mechanical Ventilator 80.00 02/25/19 13:57 60 02/25/19 13:44 110 20 98 80 02/25/19 13:04 105 02/25/19 13:00 105 18 129/36 (67) 100 Mechanical Ventilator 80.00 02/25/19 12:00 101 120/40 (66) 92 Mechanical Ventilator 80.00 02/25/19 12:00 Mechanical Ventilator 80 02/25/19 11:00 99 136/42 (73) 96 Mechanical Ventilator 80.00 02/25/19 10:53 101 18 94 80 02/25/19 10:00 96 154/44 (80) Mechanical Ventilator 80.00 02/25/19 09:00 94 171/47 (88) 100 Mechanical Ventilator 80.00 I & O 02/26/19 07:00 Intake Total 7464 ml Output Total 650 ml Balance 6814 ml Capillary Refill : Less Than 3 Seconds General Appearance: Obese, Other (Sedated and intubated) Respiratory: Decreased Breath Sounds Cardiovascular: Regular Rate, Rhythm, No Edema, No JVD, No Murmur, Normal Peripheral Pulses Gastrointestinal: soft; No distended Extremity: Normal Capillary Refill, No Pedal Edema Neurologic/Psychiatric: No Alert, No Oriented x3; Other (Sedated and intubated) Skin: Warm/Dry; No Cyanosis; Pallor Results Lab Laboratory Tests 02/25/19 12:43: Glucometer 136H 02/25/19 16:11: Blood Gas Puncture Site RT RADIAL, Blood Gas Patient Temperature 36.6, Arterial Blood pH 7.38, Arterial Blood Partial Pressure CO2 32L, Arterial Blood Partial Pressure O2 62L, Arterial Blood HCO3 18L, Arterial Blood Total CO2 19.3L, Arterial Blood Oxygen Saturation 89L, Arterial Blood Base Excess -6.0L, Kenny Test P, Blood Gas Ventilator Setting YES, Blood Gas Inspired Oxygen 40 02/25/19 16:25: Glucometer 174H 02/26/19 00:15: White Blood Count 8.3, Red Blood Count 3.07L, Hemoglobin 10.1#L, Hematocrit 30L, Mean Corpuscular Volume 97, Mean Corpuscular Hemoglobin 33, Mean Corpuscular Hemoglobin Concent 34, Red Cell Distribution Width 14.0, Platelet Count 162, Mean Platelet Volume 9.8, Neutrophils (%) (Auto) 70, Lymphocytes (%) (Auto) 6L, Monocytes (%) (Auto) 23H, Eosinophils (%) (Auto) 0, Basophils (%) (Auto) 0, Neutrophils # (Auto) 5.9, Lymphocytes # (Auto) 0.5L, Monocytes # (Auto) 1.9H, Eosinophils # (Auto) 0.0, Basophils # (Auto) 0.0, Sodium Level 136, Potassium Level 4.1, Chloride Level 109H, Carbon Dioxide Level 16L, Anion Gap 11, Blood Urea Nitrogen 57H, Creatinine 1.74H, Estimat Glomerular Filtration Rate 29, BUN/Creatinine Ratio 33, Glucose Level 208H, Lactic Acid Level 3.19*H, Calcium Level 6.5L, Corrected Calcium 8.3L, Total Bilirubin 0.5, Aspartate Amino Transf (AST/SGOT) 19, Alanine Aminotransferase (ALT/SGPT) 12, Alkaline Phosphatase 21L, Total Protein 3.6L, Albumin 1.7L 02/26/19 02:30: Lactic Acid Level 2.98*H 02/26/19 03:15: White Blood Count 10.1, Red Blood Count 3.11L, Hemoglobin 10.0L, Hematocrit 30L, Mean Corpuscular Volume 97, Mean Corpuscular Hemoglobin 32, Mean Corpuscular Hemoglobin Concent 33, Red Cell Distribution Width 13.9, Platelet Count 171, Mean Platelet Volume 9.8, Neutrophils (%) (Auto) 72, Lymphocytes (%) (Auto) 7L, Monocytes (%) (Auto) 21H, Eosinophils (%) (Auto) 0, Basophils (%) (Auto) 0, Neutrophils # (Auto) 7.3, Lymphocytes # (Auto) 0.7L, Monocytes # (Auto) 2.1H, Eosinophils # (Auto) 0.0, Basophils # (Auto) 0.0, Sodium Level 137, Potassium Level 4.1, Chloride Level 109H, Carbon Dioxide Level 16L, Anion Gap 12, Blood Urea Nitrogen 56H, Creatinine 1.62H, Estimat Glomerular Filtration Rate 31, BUN/ Creatinine Ratio 35, Glucose Level 187H, Calcium Level 6.5L, Phosphorus Level 2.8, Magnesium Level 2.0 02/26/19 04:55: Blood Gas Puncture Site LEFT ART LINE, Blood Gas Patient Temperature 37.2, Arterial Blood pH 7.38, Arterial Blood Partial Pressure CO2 33L, Arterial Blood Partial Pressure O2 72L, Arterial Blood HCO3 19L, Arterial Blood Total CO2 19.8L , Arterial Blood Oxygen Saturation 93L, Arterial Blood Base Excess -5.4L, Kenny Test ART LINE, Blood Gas Ventilator Setting YES, Blood Gas Inspired Oxygen 40% Microbiology 02/24/19 Blood Culture - Preliminary, Resulted No growth 02/24/19 Influenza Types A,B Antigen (ESTIVEN) - Final, Complete Assessment/Plan Assessment/Plan Assessment/Plan Patient is sedated and on ventilator in ICU. Will continue to monitor on vent due to destabilizing overnight. Continue antibiotics and IV fluids. Clinical Quality Measures DVT/VTE Risk/Contraindication: Risk Factor Score Per Nursin RFS Level Per Nursing on Admit: 4+=Very High MISSY WILLETT DO 02/26/19 2343: Subjective Time Seen by a Provider: 11:41 Subjective/Events-last exam Pt seen and examined, events of last night noted. Assessment/Plan Assessment/Plan Assessment/Plan Fluids, Vasopressor support, will have Wound care see for VAC placment. Discussed with family that she is still fragile and it will be tough the next couple of days. We are supporting her and she appears to be doing good at this time. Continue supportive care. Supervisory-Addendum Brief Verification & Attestation Participated in pt care: history, MDM, physical Personally performed: exam, history, MDM Care discussed with: Medical Student Procedures: n/a Verification and Attestation of Medical Student E/M Service A medical student performed and documented this service in my presence. I reviewed and verified all information documented by the medical student and made modifications to such information, when appropriate. I personally performed the physical exam and medical decision making. Missy Willett, Feb 26, 2019,23:42 GILA HAYWOOD,MED STUDENT Feb 26, 2019 08:39 MISSY WILLETT DO Feb 26, 2019 23:43
[2019-02-26] MEDS: PANTOPRAZOLE 40 MG (PROTONIX) VIAL IV SCH (09:40)
--- NOTE | 2019-02-26 10:40 | NUR ---
notified of low urine output. Orders received to give a 1L bolus of NS now.
[2019-02-26] MEDS ORDERED: NS (IVPB) 250 ML ONE (10:49)
[2019-02-26] MEDS ORDERED: NS IV 1000 ML 1,000 ML IV SCH (11:15)
[2019-02-26] MEDS ORDERED: ANIDULAFUNGIN 200 MG/NS 250 ML IVPB IV NR ×2 (11:30)
--- NOTE | 2019-02-26 11:33 | NUR ---
at bedside, spoke with her regarding Metoprolol order, verbal orders received to hold metoprolol today.
--- NOTE | 2019-02-26 12:30 | NUR ---
at bedside. requested consult to wound care for potential wound vac placement tomorrow.
--- NOTE | 2019-02-26 12:57 | NUR ---
UNABLE TO SPEAK WITH THE PATIENT OR FAMILY ABOUT MEDICATIONS. THE PATIENT HAS BEEN HERE RECENTLY AND MED REC WAS COMPLETED BY [facility] AT THAT TIME. I REVIEWED IT IT WAS REPORTED PREVIOUSLY, I COMPARED THE PRESCRIPTION MEDICATION TO THE EXT MED HX. 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 OTC MEDS PREVIOUSLY REPORTED: ASPIRIN 81MG [employer] FISH OIL VITAMIN E I WAS NOT ABLE TO VERIFY THEY LOVASTATIN THAT WAS PREVIOUSLY REPORTED. MAIA DID NOT HAVE RECORD OF IT ON FILE WITH THEM. I DID NOT REVIEW IT BUT DID NOT REMOVE IT AT THIS TIME SINCE IT WAS REVIEWED WHEN SHE WAS HERE LAST BY [facility].
--- NOTE | 2019-02-26 14:00 | NUR ---
updated on status of patient.
--- NOTE | 2019-02-26 14:07 | Diagnostic Imaging Report ---
INDICATION: Atrial fibrillation with rapid ventricular response. TECHNIQUE: Single view chest 3:27 AM. CORRELATION STUDY: 02/25/2019 FINDINGS: The endotracheal tube projects over the lower trachea likely just at the level of the nomi. Tip is somewhat obscured by overlying monitor lead. Gastric tube passes below the left hemidiaphragm. Right-sided central line tip over the right atrium. There is overlying external defibrillator pad over the right chest. Heart size and mediastinum are generally stable. Vasculature appears increased. Increasing opacity through large portion of the left lung. There appears to be more focal consolidation at the left lung base as well as right infrahilar region, adversely changed from prior study. IMPRESSION: 1. Endotracheal tube is over the low trachea appearing to be near the level of the nomi. This could be retracted approximately 1 to 2 cm. 2. There does appear to be increasing opacities through both lung jimenez left greater than right. Some of this may be owing to layering effusion. However, there does appear to be overall increasing and/or new areas of consolidation particularly the right infrahilar region and left lung base. 3. Vasculature overall slightly increased. Report was called/faxed to Ewelina/business banking officer of Dr. Lindsey by scar at 2:06 pm. Dictated by: Dictated on workstation # [id number]
--- NOTE | 2019-02-26 14:45 | NUR ---
at bedside d/t pt's tremors and daughters concerns. PRN Ativan drip order received.
--- NOTE | 2019-02-26 15:11 | NUR ---
of systolic blood pressure >260 with AFib. Order received to give cardizem bolus and drip.
[2019-02-26] MEDS ORDERED: DILTIAZEM 25 MG/5 ML INJ (CARDIZEM) VIAL ONE (15:12)
[2019-02-26] MEDS ORDERED: DILTIAZEM 125 MG/25 ML IV (CARDIZEM) IV ONE (15:13)
[2019-02-26] MEDS ORDERED: DILTIAZEM 25 MG/5 ML INJ (CARDIZEM) VIAL IVP NR (15:30)
[2019-02-26] MEDS ORDERED: DILTIAZEM IV FOR DRIP 125 MG in NS (IVPB) 100 ML IV SCH (15:30)
[2019-02-26] MEDS: NOREPINEPHRINE 8 MG in NS (IVPB) 250 ML IV SCH (15:48)
--- NOTE | 2019-02-26 16:00 | NUR ---
residential field manager Travis at bedside. Abdominal dressing changed per physicians orders.
[2019-02-26] MEDS: LORazepam INJECTION FOR DRIP 20 MG in D5W 100 ML IVPB 90 ML IV SCH (17:01)
[2019-02-26] MEDS ORDERED: TROUGH ORDER-PHARMACY XX ONE (18:00)
[2019-02-26] MEDS: VANCOMYCIN 1500 MG/NS 500 ML IVPB IV SCH ×2 (18:59)
[2019-02-26] MEDS ORDERED: DILTIAZEM 25 MG/5 ML INJ (CARDIZEM) VIAL IVP ONE (21:45)
[2019-02-26] MEDS ORDERED: D5W 100 ML IVPB 100 ML IV ONE (23:27)
[2019-02-27] VITALS (30 sets, daily range): BP systolic 81–157; BP diastolic 29–47
[2019-02-27] MEDS ORDERED: meTOprolol 5 MG/5 ML (LOPRESSOR) VIAL IV ONE (01:30)
[2019-02-27] MEDS: LORazepam INJECTION FOR DRIP 20 MG in D5W 100 ML IVPB 90 ML IV SCH ×3 (01:52→20:10)
[2019-02-27] MEDS: DILTIAZEM IV FOR DRIP 125 MG in NS (IVPB) 100 ML IV SCH (01:52)
[2019-02-27] MEDS ORDERED: AMIODARONE IV SCH (02:00)
[2019-02-27] MEDS ORDERED: D5W IV SCH (02:00)
[2019-02-27] MEDS: RT-IPRATROPIUM (ATROVENT) 0.5MG/2.5ML AMP IH SCH ×6 (03:00→22:40)
[2019-02-27] MEDS: NOREPINEPHRINE 8 MG in NS (IVPB) 250 ML IV SCH (03:06)
[2019-02-27 03:50] LABS: BASOPHILS % (AUTO) 0 % (0-10); EOSINOPHILS # (AUTO) 0.3 10^3/uL (0.0-0.3); EOSINOPHILS % (AUTO) 2 % (0-10); HEMATOCRIT 30 % (35-52); HEMOGLOBIN 10.1 G/DL (11.5-16.0); LYMPHOCYTES # (AUTO) 0.7 X 10^3 (1.0-4.0); LYMPHOCYTES % (AUTO) 5 % (12-44); MEAN CORPUSCULAR HEMOGLOBIN 33 PG (25-34); MEAN CORPUSCULAR HGB CONC 34 G/DL (32-36); MEAN CORPUSCULAR VOLUME 97 FL (80-99); MEAN PLATELET VOLUME 9.3 FL (7.4-10.4); MONOCYTES # (AUTO) 2.2 X 10^3 (0.0-1.0); MONOCYTES % (AUTO) 16 % (0-12); NEUTROPHILS # (AUTO) 10.5 X 10^3 (1.8-7.8); NEUTROPHILS % (AUTO) 77 % (42-75); PLATELET COUNT 139 10^3/uL (130-400); RED CELL DISTRIBUTION WIDTH 13.7 % (10.0-14.5); WHITE BLOOD COUNT 13.7 10^3/uL (4.3-11.0)
--- NOTE | 2019-02-27 04:07 | NUR ---
2119: Pt's HR increased to 130s. Texted Dr. Montana. 2124: Called E-ICU to notify of increased HR. 2127: Dr. Montana called back. Orders given. See order history. 2134: Started Cardizem gtt per Dr. Montana's orders. 2139: Systolic Blood Pressure was in the 70s Stopped Cardizem gtt. 2152: Notified EICU of Rising Temperature. Orders given for tylenol. See order history. 2300: Dr. Escalante Ordered to continue amiodarone gtt at this time. Will continue to monitor for any changes.
[2019-02-27 04:16] LABS: ABG BASE EXCESS -4.7 MMOL/L (-2.5-2.5); ABG OXYGEN SATURATION 90 % (94-100); ABG PCO2 33 MMHG (35-45); ABG PH 7.39 (7.37-7.43); ABG PO2 67 MMHG (79-93); ABG TCO2 20.3 MMOL/L (21.0-31.0)
[2019-02-27 04:18] LABS: ALLENS TEST ART LINE; INSPIRED O2 35%; PATIENT TEMP 37.2; VENTILATOR YES
[2019-02-27 04:29] LABS: CALCIUM 6.9 MG/DL (8.5-10.1); CREATININE SERUM 1.31 MG/DL (0.60-1.30); PHOSPHORUS 2.7 MG/DL (2.3-4.7); POTASSIUM 4.3 MMOL/L (3.6-5.0)
[2019-02-27] MEDS ORDERED: D5W 100 ML IVPB 0 ML IV ONE (04:50)
[2019-02-27] MEDS: MEROPENEM 500 MG/SWFI 10 ML IV PUSH IV SCH ×6 (05:15→22:26)
[2019-02-27] MEDS: MAGNESIUM 1 GM/100 ML IVPB 100 ML IV SCH (05:16)
[2019-02-27] MEDS: KCL 20 MEQ TAB (K-DUR) PO SCH (05:18)
[2019-02-27] MEDS: POTASSIUM CL 10MEQ/50ML IVPB 50 ML IV SCH (05:19)
[2019-02-27] MEDS: inSUlin ASPART (NovoLOG) 1 UNIT/0.01 ML (CHARGE PER UNIT) SQ SCH ×3 (05:20→18:24)
[2019-02-27] MEDS: fentaNYL INJECTION 1,250 MCG in NS (IVPB) 250 ML IV SCH ×2 (05:35→16:11)
[2019-02-27] MEDS: meTOprolol 5 MG/5 ML (LOPRESSOR) VIAL IV SCH ×3 (05:41→17:22)
[2019-02-27] MEDS: AMIODARONE INJECTION 450 MG in D5W IV SOLUTION (EXCEL) 250 ML IV SCH ×2 (06:34→21:12)
[2019-02-27] MEDS ORDERED: ENOXAPARIN 40 MG/0.4 ML (LOVENOX) SYR SQ SCH (08:00)
--- NOTE | 2019-02-27 08:08 | Progress Note - Surgery ---
BRITTANY RHODES,MED STUDENT 02/27/19 0808: Subjective Date Seen by a Provider: Feb 27, 2019 Time Seen by a Provider: 07:30 Subjective/Events-last exam Patient intubated and sedated in ICU. SpO2 96% at this time. Hemoglobin stable at 10.1. Still having poor urine output. No family at bedside at time of exam. Focused Exam Lactate Level 02/26/19 00:15: Lactic Acid Level 3.19*H 02/26/19 02:30: Lactic Acid Level 2.98*H 02/26/19 23:50: Lactic Acid Level 1.64 Time of Focused Exam: 22:00 Objective Exam Vital Signs Date Time Temp Pulse Resp B/P (MAP) Pulse Ox O2 Delivery O2 Flow Rate FiO2 02/27/19 06:18 74 18 96 35 02/27/19 06:05 75 18 111/40 (63) 95 Mechanical Ventilator 35.00 02/27/19 06:00 78 18 81/32 (48) 94 Mechanical Ventilator 35.00 02/27/19 05:00 78 18 129/40 (69) 95 Mechanical Ventilator 35.00 02/27/19 04:00 78 18 125/41 (69) 94 Mechanical Ventilator 35.00 02/27/19 04:00 95 Mechanical Ventilator 35 02/27/19 04:00 37.2 02/27/19 03:00 86 18 94 35 02/27/19 03:00 86 18 104/36 (58) 94 Mechanical Ventilator 35.00 02/27/19 02:00 79 20 145/41 (75) 97 Mechanical Ventilator 35.00 02/27/19 01:00 76 19 135/44 (74) 96 Mechanical Ventilator 35.00 02/27/19 01:00 76 02/27/19 00:00 95 Mechanical Ventilator 40 02/27/19 00:00 37.1 02/27/19 00:00 100 17 106/39 (61) 97 Mechanical Ventilator 35.00 02/26/19 23:00 82 18 109/38 (61) 96 Mechanical Ventilator 35.00 02/26/19 22:35 86 18 119/39 (65) 97 Mechanical Ventilator 35.00 02/26/19 22:33 86 18 97 35 02/26/19 22:15 38.07630 90 19 125/39 96 40.00 02/26/19 22:03 140 31 110/49 (69) 95 Mechanical Ventilator 40.00 02/26/19 21:00 105 23 137/50 (79) 95 Mechanical Ventilator 40.00 02/26/19 20:00 120 16 136/50 (78) 95 Mechanical Ventilator 40.00 02/26/19 20:00 95 Mechanical Ventilator 40 02/26/19 19:47 37.5 02/26/19 19:02 91 18 93 40 02/26/19 19:00 90 02/26/19 19:00 90 21 125/41 (69) 94 Mechanical Ventilator 40.00 02/26/19 18:00 96 10 118/39 (65) 93 Mechanical Ventilator 40.00 02/26/19 17:00 101 11 132/42 (72) 94 Mechanical Ventilator 40.00 02/26/19 16:00 103 22 116/39 (64) 94 Mechanical Ventilator 40.00 02/26/19 16:00 96 Mechanical Ventilator 40 02/26/19 15:53 37.7 02/26/19 15:30 113 254/51 02/26/19 15:00 116 23 233/52 (112) 94 Mechanical Ventilator 40.00 02/26/19 14:26 84 19 96 40 02/26/19 14:00 109 22 123/46 (71) 95 Mechanical Ventilator 40.00 02/26/19 13:34 182 02/26/19 13:00 108 02/26/19 13:00 102 18 98/42 (60) 94 Mechanical Ventilator 40.00 02/26/19 12:42 165/48 02/26/19 12:00 92 18 119/41 (67) 95 Mechanical Ventilator 40.00 02/26/19 12:00 96 Mechanical Ventilator 40 02/26/19 11:23 36.9 02/26/19 11:00 101 20 173/53 (93) 95 Mechanical Ventilator 40.00 02/26/19 10:19 112 13 95 40 02/26/19 10:00 117 11 89/29 (49) 96 Mechanical Ventilator 40.00 02/26/19 09:00 106 22 143/44 (77) 98 Mechanical Ventilator 40.00 I & O 02/27/19 07:00 Intake Total 4666 ml Output Total 1300 ml Balance 3366 ml Capillary Refill : Less Than 3 Seconds General Appearance: No Apparent Distress, Other (Sedated and intubated) Respiratory: No Respiratory Distress, Crackles Cardiovascular: Regular Rate, Rhythm, No Murmur, Normal Peripheral Pulses Gastrointestinal: soft; No distended Neurologic/Psychiatric: No Alert; Other (Sedated and intubated) Skin: Warm/Dry, Pallor Results Lab Laboratory Tests 02/26/19 17:55: Vancomycin Level Trough 7.3L 02/26/19 23:50: Lactic Acid Level 1.64 02/27/19 03:35: White Blood Count 13.7H, Red Blood Count 3.07L, Hemoglobin 10.1L, Hematocrit 30L , Mean Corpuscular Volume 97, Mean Corpuscular Hemoglobin 33, Mean Corpuscular Hemoglobin Concent 34, Red Cell Distribution Width 13.7, Platelet Count 139, Mean Platelet Volume 9.3, Neutrophils (%) (Auto) 77H, Lymphocytes (%) (Auto) 5L, Monocytes (%) (Auto) 16H, Eosinophils (%) (Auto) 2, Basophils (%) (Auto) 0, Neutrophils # (Auto) 10.5H, Lymphocytes # (Auto) 0.7L, Monocytes # (Auto) 2.2H, Eosinophils # (Auto) 0.3, Basophils # (Auto) 0.0, Blood Gas Puncture Site LEFT RADIAL, Blood Gas Patient Temperature 37.2, Arterial Blood pH 7.39, Arterial Blood Partial Pressure CO2 33L, Arterial Blood Partial Pressure O2 67L, Arterial Blood HCO3 19L, Arterial Blood Total CO2 20.3L, Arterial Blood Oxygen Saturation 90L, Arterial Blood Base Excess -4.7L, Kenny Test ART LINE, Blood Gas Ventilator Setting YES, Blood Gas Inspired Oxygen 35%, Sodium Level 138, Potassium Level 4.3, Chloride Level 112H, Carbon Dioxide Level 18L, Anion Gap 8, Blood Urea Nitrogen 50H, Creatinine 1.31H, Estimat Glomerular Filtration Rate 40, BUN/Creatinine Ratio 38, Glucose Level 135H, Calcium Level 6.9L, Phosphorus Level 2.7, Magnesium Level 2.0, Digoxin Level 0.84 Microbiology 02/24/19 Blood Culture - Preliminary, Resulted YEAST See Comments 02/25/19 Gram Stain - Final, Resulted 02/25/19 Sputum Culture - Preliminary, Resulted No growth 02/24/19 Urine Culture - Final, Complete NO GROWTH Assessment/Plan Assessment/Plan Assessment/Plan Pneumoperitoneum Respiratory Failure B/L Pleural Effusions with atelectasis and consolidation S/P Exploratory Laparotomy and small bowel resection Intubated and Sedated Continue fluids and vasopressor support Wound care consulted for possible VAC placement Continue supportive care Clinical Quality Measures DVT/VTE Risk/Contraindication: Risk Factor Score Per Nursin RFS Level Per Nursing on Admit: 4+=Very High JUNG WILLETT DO 02/27/192045: Subjective Time Seen by a Provider: 12:16 Subjective/Events-last exam Pt seen and examined, events of last night noted. Pt actually off levophed, but SBP in the 80's. Assessment/Plan Assessment/Plan Assessment/Plan S/P Ex lap with SBR x 2 Plan to restart fluids; LR at 90ml/hr. Supportive care, Wound Vac to be placed. Urine actually looks less concentrated, so will continue fluids. Reattempt weaning parameters tonight. Pt has good output from ileostomy. Supervisory-Addendum Brief Verification & Attestation Participated in pt care: history, MDM, physical Personally performed: exam, history, MDM Care discussed with: Medical Student Procedures: n/a Verification and Attestation of Medical Student E/M Service A medical student performed and documented this service in my presence. I reviewed and verified all information documented by the medical student and made modifications to such information, when appropriate. I personally performed the physical exam and medical decision making. Jung Willett, Feb 27, 2019,20:45 BRITTANY RHODES,MED STUDENT Feb 27, 2019 08:08 JUNG WILLETT DO Feb 27, 2019 20:46
--- NOTE | 2019-02-27 08:15 | Diagnostic Imaging Report ---
INDICATION: Evaluate for fluid overload. Time of exam: 11:40 PM Correlation is made with prior chest from earlier the same day. ET tube has tip above the nomi. NG tube passes below the diaphragm. Right upper extremity PICC line has tip overlying the right atrium. Overall congestive changes appear to be similar to prior exam. Possibility of layering effusion on the left persists. There is no pneumothorax. IMPRESSION: Overall stable congestive changes when compared with exam from earlier the same day. Dictated by: Dictated on workstation # [id number]
--- NOTE | 2019-02-27 08:28 | Progress Note - Hospitalist ---
Subjective HPI/CC On Admission Date Seen by Provider: Feb 27, 2019 Time Seen by Provider: 08:25 Subjective/Events-last exam Pt is sedated and intubated. No ROS possible. Discussed with RN and UOP up overnight, appears comfortable on vent. eICU stopped IVF overnight. Discussed with daughter the need to monitor UOP. Focused Exam Lactate Level 02/26/19 00:15: Lactic Acid Level 3.19*H 02/26/19 02:30: Lactic Acid Level 2.98*H 02/26/19 23:50: Lactic Acid Level 1.64 Time of Focused Exam: 22:00 Objective Exam Vital Signs Vital Signs Date Time Temp Pulse Resp B/P (MAP) Pulse Ox O2 Delivery O2 Flow Rate FiO2 02/27/19 06:18 74 18 96 35 02/27/19 06:05 111/40 (63) Mechanical Ventilator 35.00 02/27/19 04:00 37.2 Capillary Refill : Less Than 3 Seconds General Appearance: Other (ill appearring, sedated on vent) Respiratory: Rhonci, Other (on vent) Cardiovascular: Regular Rate, Rhythm, No Murmur Gastrointestinal: Abnormal Bowel Sounds (quiet), Other (ostomy in place, ABD bandage over open surgical wound) Extremity: Swelling (1+ to mid calves) Neurologic/Psychiatric: Other (sedated, appears comfortable) Skin: Normal Color, Warm/Dry Results/Procedures Lab Laboratory Tests 02/27/19 03:35 Patient resulted labs reviewed. Imaging: Reviewed Imaging Report Assessment/Plan Assessment and Plan Assess & Plan/Chief Complaint Shock- mixed developed profound hypotension when she converted back to a-fib with RVR Likely mixed cardiogenic/hypovolemic/septic shock Remains on Levophed Focused exam done, lactic acid was elevated but now resolved Blood cultures reveal yeast- continue on Eraxis, Vanc, and Merrem Perforated abdominal viscus -Hx of colon cancer w/ permanent ileostomy -S/P recent laparoscopy for lysis of adhesion on 02/21/19 -Post-op after repair on 02/24 -Open abdomen at this time- plan for wound vac Acute respiratory failure -with bilat pleural effusions and bibasilar infiltrates -controlled on Ventilator, Managed by Primary -On IV ABX: Meropenem and vancomycin, EERaxis added 02/26 Paroxysmal Afib RVR -Converts in and out of a-fib with profound tachycardia and hypotension - Cardiology consulted, appreciate recs - Currently in sinus, on amiodarone Acute renal failure - Improving, Creatinine down, UOP up - Monitor I/Os - Likely getting sufficient IVF with all medications but will monitor UOP and resume IVF if drops Recent UTI (urinary tract infection) -Abx as above -urine culture from 02/22 shows no growth IDDMII (insulin dependent diabetes mellitus) -Control on sliding scale insulin Lactic acidosis- resolved Hx HTN -Hold home medications (Losartan) at this time DVT PPX: Heparin GI ppx: Protonix Diagnosis/Problems Diagnosis/Problems (1) Atrial fibrillation with RVR (2) Perforated abdominal viscus Status: Acute (3) Acute renal failure Status: Acute Qualifiers: Acute renal failure type: unspecified Qualified Codes: N17.9 - Acute kidney failure, unspecified (4) Hypovolemia dehydration Status: Acute (5) Bilateral pleural effusion Status: Acute (6) IDDM (insulin dependent diabetes mellitus) Status: Acute (7) Lactic acidosis Status: Acute (8) Acute respiratory failure Status: Acute Qualifiers: Respiratory failure complication: unspecified whether with hypoxia or hypercapnia Qualified Codes: J96.00 - Acute respiratory failure, unspecified whether with hypoxia or hypercapnia (9) UTI (urinary tract infection) Status: Resolved Resolution Date/Time: 02/27/19 @ 08:40 (10) Shock Status: Acute Clinical Quality Measures DVT/VTE Risk/Contraindication: Risk Factor Score Per Nursin RFS Level Per Nursing on Admit: 4+=Very High ABIGAIL PORTER MD Feb 27, 2019 08:28
--- NOTE | 2019-02-27 08:40 | NUR ---
Referral from Dr. Saleem: daughter Jeni at bedside, present at the hospital for the last hour. We sat together and visited at length as Jeni shared about events beginning with her father's (pt's spouse) decline and unexpected approximately 10 years ago following an acute hospitalization. 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 Jeni said she believes her father's could have been prevented if physicians had communicated better with one another. Jeni expressed how the situation made their grief particularly painful. The year after the pt's , the she was laid off from work at the age of 64. The pt's sister also that year; Jeni describes this for the pt as "a very hard first year as a ." I facilitated Jeni sharing about her personal relationships with her mother, father and aunt. Jeni shared the caregiver role with the pt in meeting the needs for her father and aunt until their deaths. Jeni lives with her mother and is her primary support. Jeni is a international relations teacher and feels supported by her co-workers as she takes time off to be with the pt. She described the nurses, hospitalist, nutritionalist and surgeon Dr. Willett as helpful, collaborative, and being good listeners. Jeni described feeling more bold in her role as advocate since she took the pt the the ER twice, realizing something was very wrong. Jeni said that she and her brother encouraged the pt to have surgery to remove scar tissue from her abdomen with anticipation that this would relieve her pain. She voiced some regrets about the surgery, and I encouraged reflection about their decision-making process and projected outcome, after which Jeni said, "Yes, we had every reason to believe this would help. She was convinced of that too. It's just easy to regret things when they don't go the way you planned." Jeni shared the pt has survived Uterine cancer and survived colon cancer twice.
[2019-02-27] MEDS: DIGOXIN 0.25 MG/ML (LANOXIN) 2 ML AMP IV SCH (08:46)
[2019-02-27] MEDS: ANIDULAFUNGIN 100 MG/NS 100 ML IV SCH ×2 (08:46)
[2019-02-27] MEDS: PANTOPRAZOLE 40 MG (PROTONIX) VIAL IV SCH (08:46)
--- NOTE | 2019-02-27 09:15 | NUR ---
THIS NURSE CLARIFIED WITH DR PORTER SHE WOULD LIKE HEPARIN FOR DVT PROPHYLAXIS.
--- NOTE | 2019-02-27 09:25 | NUR ---
CLARIFIED HEPARIN VS ENOXAPARIN FOR VTE PPX, DR PORTER WANTED HEPARIN BUT PATIENT ALREADY RECEIVED ENOXAPARIN THIS AM, SO WILL START HEPARIN SQ ON 02/28 @0600.
[2019-02-27] MEDS ORDERED: LORazepam INJ 2 MG/ML (ATIVAN) VIAL ONE (09:36)
--- NOTE | 2019-02-27 09:57 | NUR ---
THIS NURSE NOTIFIED DR PORTER PT HAD A SEIZURE. PT WAS NOT ON ATIVAN DRIP. DR PORTER GAVE THIS NURSE ORDER FOR 1 TIME DOSE OF 2 MG IV ATIVAN PUSH.
--- NOTE | 2019-02-27 10:14 | Cardiology Progress Note ---
Subjective Date Seen by Provider: Feb 27, 2019 Time Seen by Provider: 10:11 Subjective/Events-last exam patient is sedated and intubated Was tachycardic with atrial flutter yesterday, started on Cardizem drip and amiodarone drip Cardizem was stopped due to hypotension I restarted Cardizem due to tachycardia and elevated blood pressure Currently in sinus rhythm with hypotension. Review of Systems General: Other (sedated and intubated) Focused Exam Sepsis Stage: Severe Sepsis Lactate Level 02/26/19 00:15: Lactic Acid Level 3.19*H 02/26/19 02:30: Lactic Acid Level 2.98*H 02/26/19 23:50: Lactic Acid Level 1.64 Time of Focused Exam: 22:00 Respiratory: Crackles, Decreased Breath Sounds, Respiratory Distress Cardiovascular: Regular Rate, Rhythm, Systolic Murmur, Gallop/S3 Capillary Refill: Less Than 3 Seconds Skin: warm/dry Objective-Cardiology Exam Last Set of Vital Signs Vital Signs 02/27/19 02/27/19 02/27/19 04:00 06:18 09:00 Temp 37.2 Pulse 75 Resp 18 B/P (MAP) 141/44 (76) Pulse Ox 96 O2 Delivery Mechanical Ventilator O2 Flow Rate 35.00 FiO2 35 Capillary Refill : Less Than 3 Seconds I&O Intake and Output 02/27/19 00:00 Intake Total 8669 ml Output Total 1150 ml Balance 7519 ml Intake Oral 0 ml IV Total 8669 ml Output Urine Total 1150 ml General: Severe Distress, Other (Sedated and intubated) HEENT: Atraumatic Neck: Supple, No Thyromegaly Lungs: Normal Air Movement, Other (Bilateral rhonchi) Heart: Normal S1, Normal S2, No Murmurs, Other (Atrial fibrillation was rapid ventricular response) Abdomen: No Masses, Other (Absent bowel sounds) Extremities: No Clubbing, No Cyanosis, No Edema, Normal Pulses, No Tenderness/Swelling Skin: No Rashes Neuro: Other (Sedated and intubated) Psych/Mental Status: Other (Sedated and intubated) Results Lab Laboratory Tests 02/27/19 03:35 A/P-Cardiology Admission Diagnosis Acute respiratory failure Paroxysmal atrial fibrillation Coronary artery disease Hypertension Assessment/Plan Acute respiratory failure, ventilator dependent, sedated, I will decrease sedation and do weaning trial today Status post emergency abdominal surgery for perforated viscus and colon resection, had the surgery on February 25, 2019, still intubated. Paroxysmal atrial fibrillation, in and out of atrial fibrillation currently in sinus rhythm on amiodarone drip receiving digoxin IV. Continue to monitor Hypotensive shock, maintained on levophed, had an episode of severe hypertension and it was stopped, it was restarted at this point, monitor blood pressure while being weaned off sedation Coronary artery disease, history of cardiac catheterization in July 2012 showing 50 percent midright coronary artery stenosis, nonobstructive disease, had a borderline disease in the midright coronary artery. Most recent cardiac catheterization done April 2018 revealed mild ectasia in the proximal LAD with mild disease in the mid LAD, small vessel disease distally, mild ectasia in the proximal circumflex artery and 40-50 percent stenosis in the mid right coronary artery, nonobstructive disease History of colon cancer, history of colon resection and colostomy in the remote past has been in remission and followed by Dr. Branham History of hyperlipidemia History of PAC's/PVC's, continue to monitor heart rate Carotid artery , continue to monitor carotid Syncope, had a syncopal episode in October 2015 probably due to dehydration. Was in renal failure. Improved. Thyroid nodules noted on ultrasound, followed by Dr. Branham and Dr. Simmons Diabetes mellitus, followed and managed by primary care physician. History of colon cancer, history of colostomy. Currently in remission. Followed by Dr. Branham Family history of coronary artery disease. Obstructive sleep apnea, intolerance to CPAP History of appendectomy, kidney stones, hysterectomy. Breast biopsy. Complex management, guarded prognosis, had a long discussion with the daughter, discussed all treatment option, discussed the management plan Had extensive cardiac history, currently respiratory failure and ventilator dependent, we will try to wean her off the ventilator today. Clinical Quality Measures DVT/VTE Risk/Contraindication: Risk Factor Score Per Nursin RFS Level Per Nursing on Admit: 4+=Very High NAYA URIAS MD Feb 27, 2019 10:14
[2019-02-27] MEDS ORDERED: LORazepam INJ 2 MG/ML (ATIVAN) VIAL IVP NR (10:15)
[2019-02-27] MEDS ORDERED: NS (IVPB) 50 ML ONE (11:49)
[2019-02-27] MEDS ORDERED: DEXMEDETOMIDINE INJECTION 1,000 MCG in NS (IVPB) 240 ML IV SCH (12:00)
[2019-02-27] MEDS: VANCOMYCIN 1500 MG/NS 500 ML IVPB IV SCH ×2 (18:24)
--- NOTE | 2019-02-27 18:41 | NUR ---
TUBE FEED RECOMMENDATIONS This RD recommends the following: Glucerna 1.5 @ goal rate of 55ml/hr x24hr. Begin at 10 ml/hr, and increase by 10 ml q6h, as tolerated. At goal rate, provides 1980 kcal (20 kcal/kg); 109 g Pro (1.12 g/kg BW); and 1002 ml free water. Flush with 150 ml H2O q4h. With flushes, provides 1902 ml free water. Will follow-up and reassess as needed. Ambrose Cuenca MS, RD, LD Ext 133
[2019-02-27] MEDS: LACTATED RINGERS 1,000 ML IV SCH (20:10)
[2019-02-28] VITALS (30 sets, daily range): BP systolic 102–202; BP diastolic 29–61
[2019-02-28] MEDS: DILTIAZEM IV FOR DRIP 125 MG in NS (IVPB) 100 ML IV SCH (00:48)
[2019-02-28] MEDS: meTOprolol 5 MG/5 ML (LOPRESSOR) VIAL IV SCH ×4 (00:49→17:17)
[2019-02-28] MEDS: inSUlin ASPART (NovoLOG) 1 UNIT/0.01 ML (CHARGE PER UNIT) SQ SCH ×4 (00:49→17:21)
[2019-02-28] MEDS: RT-IPRATROPIUM (ATROVENT) 0.5MG/2.5ML AMP IH SCH ×5 (02:26→23:02)
[2019-02-28 03:54] LABS: ABG BASE EXCESS -3.6 MMOL/L (-2.5-2.5); ABG OXYGEN SATURATION 90 % (94-100); ABG PCO2 30 MMHG (35-45); ABG PH 7.43 (7.37-7.43); ABG PO2 57 MMHG (79-93)
[2019-02-28 03:57] LABS: ALLENS TEST ART LINE; INSPIRED O2 25; PATIENT TEMP 36.8; VENTILATOR YES
[2019-02-28 03:58] LABS: BASOPHILS % (AUTO) 0 % (0-10); EOSINOPHILS # (AUTO) 0.2 10^3/uL (0.0-0.3); EOSINOPHILS % (AUTO) 1 % (0-10); HEMATOCRIT 29 % (35-52); HEMOGLOBIN 9.5 G/DL (11.5-16.0); LYMPHOCYTES # (AUTO) 0.6 X 10^3 (1.0-4.0); LYMPHOCYTES % (AUTO) 4 % (12-44); MEAN CORPUSCULAR HEMOGLOBIN 32 PG (25-34); MEAN CORPUSCULAR HGB CONC 33 G/DL (32-36); MEAN CORPUSCULAR VOLUME 97 FL (80-99); MEAN PLATELET VOLUME 9.5 FL (7.4-10.4); MONOCYTES % (AUTO) 6 % (0-12); NEUTROPHILS # (AUTO) 14.5 X 10^3 (1.8-7.8); NEUTROPHILS % (AUTO) 89 % (42-75); PLATELET COUNT 131 10^3/uL (130-400); RED CELL DISTRIBUTION WIDTH 13.7 % (10.0-14.5); WHITE BLOOD COUNT 16.3 10^3/uL (4.3-11.0)
[2019-02-28 04:25] LABS: CREATININE SERUM 1.12 MG/DL (0.60-1.30); POTASSIUM 4.5 MMOL/L (3.6-5.0)
[2019-02-28 04:26] LABS: CALCIUM 7.1 MG/DL (8.5-10.1); PHOSPHORUS 2.9 MG/DL (2.3-4.7)
[2019-02-28 04:30] LABS: BAND NEUTROPHILS 20 %; EOSINOPHILS % (MANUAL) 1 %; LYMPHOCYTES % (MANUAL) 4 %; MONOCYTES % (MANUAL) 4 %; NEUTROPHILS % (MANUAL) 71 %; POLYCHROMASIA SLIGHT; TOXIC GRANULATION/VACUOLAZATIO 3+
[2019-02-28] MEDS: MAGNESIUM 1 GM/100 ML IVPB 100 ML IV SCH (05:54)
[2019-02-28] MEDS: POTASSIUM CL 10MEQ/50ML IVPB 50 ML IV SCH (05:54)
[2019-02-28] MEDS: KCL 20 MEQ TAB (K-DUR) PO SCH (05:54)
[2019-02-28] MEDS: LACTATED RINGERS 1,000 ML IV SCH ×2 (06:01→14:01)
[2019-02-28] MEDS: NOREPINEPHRINE 8 MG in NS (IVPB) 250 ML IV SCH (06:01)
[2019-02-28] MEDS: MEROPENEM 500 MG/SWFI 10 ML IV PUSH IV SCH ×6 (06:02→23:08)
--- NOTE | 2019-02-28 06:27 | Diagnostic Imaging Report ---
INDICATION: Respiratory failure Portable chest 5:00 AM There is an ET tube projecting over the trachea. NG tube appears to enter the stomach. Right upper extremity PICC line tip projects over the SVC. Heart size and pulmonary vascularity are normal. There is a suboptimal inspiration with some pulmonary vascular congestion and basilar atelectasis. IMPRESSION: ET tube tip is near the nomi. There appears to be some volume loss at both lung bases. Dictated by: Dictated on workstation # [id number]
--- NOTE | 2019-02-28 07:53 | Cardiology Progress Note ---
Subjective Date Seen by Provider: Feb 28, 2019 Time Seen by Provider: 07:51 Subjective/Events-last exam Patient is intubated, awake, being weaned off the ventilator Review of Systems General: Other (Intubated, unable to communicate) Focused Exam Sepsis Stage: Sepsis Lactate Level 02/26/19 00:15: Lactic Acid Level 3.19*H 02/26/19 02:30: Lactic Acid Level 2.98*H 02/26/19 23:50: Lactic Acid Level 1.64 Time of Focused Exam: 22:00 Respiratory: Chest Non Tender, Crackles, Decreased Breath Sounds Cardiovascular: Regular Rate, Rhythm, No JVD, No Murmur Objective-Cardiology Exam Last Set of Vital Signs Vital Signs 02/28/19 02/28/19 02/28/19 02/28/19 03:40 06:00 06:26 07:00 Temp 36.8 Pulse 106 Resp 18 B/P (MAP) 146/37 (73) Pulse Ox 95 O2 Delivery Mechanical Ventilator O2 Flow Rate 25.00 FiO2 25 Capillary Refill : Less Than 3 Seconds I&O Intake and Output 02/28/19 00:00 Intake Total 1258 ml Output Total 1750 ml Balance -492 ml Intake Oral 0 ml IV Total 1258 ml Output Urine Total 1525 ml Stool Total 225 ml General: Moderate Distress, Other (Away, ventilator dependent) HEENT: Atraumatic Neck: Supple, No Thyromegaly Lungs: Normal Air Movement, Other (Bilateral rhonchi) Heart: Normal S1, Normal S2, No Murmurs, Other (Tachycardia) Abdomen: No Masses, Other (Diminished bowel sounds) Extremities: No Clubbing, No Cyanosis, No Edema, Normal Pulses, No Tenderness/Swelling Skin: No Rashes Neuro: Other (Awake, following commands) Psych/Mental Status: Other (Intubated) Results Lab Laboratory Tests 02/28/19 03:47 A/P-Cardiology Admission Diagnosis Acute respiratory failure Paroxysmal atrial fibrillation Coronary artery disease Hypertension Assessment/Plan Acute respiratory failure, ventilator dependent, undergoing weaning trial today Status post emergency abdominal surgery for perforated viscus and colon resection, had the surgery on February 25, 2019, still intubated. Paroxysmal atrial fibrillation, in and out of atrial fibrillation currently in sinus rhythm on amiodarone drip receiving digoxin IV. Continue to monitor Hypotensive shock, blood pressure is better while she is awake. Continue to monitor blood pressure, start low-dose beta blockers and monitor tolerance and response Coronary artery disease, history of cardiac catheterization in July 2012 showing 50 percent midright coronary artery stenosis, nonobstructive disease, had a borderline disease in the midright coronary artery. Most recent cardiac catheterization done April 2018 revealed mild ectasia in the proximal LAD with mild disease in the mid LAD, small vessel disease distally, mild ectasia in the proximal circumflex artery and 40-50 percent stenosis in the mid right coronary artery, nonobstructive disease History of colon cancer, history of colon resection and colostomy in the remote past has been in remission and followed by Dr. Branham History of hyperlipidemia History of PAC's/PVC's, continue to monitor heart rate Carotid artery , continue to monitor carotid Syncope, had a syncopal episode in October 2015 probably due to dehydration. Was in renal failure. Improved. Thyroid nodules noted on ultrasound, followed by Dr. Branham and Dr. Simmons Diabetes mellitus, followed and managed by primary care physician. History of colon cancer, history of colostomy. Currently in remission. Followed by Dr. Branham Family history of coronary artery disease. Obstructive sleep apnea, intolerance to CPAP History of appendectomy, kidney stones, hysterectomy. Breast biopsy. Clinical Quality Measures DVT/VTE Risk/Contraindication: Risk Factor Score Per Nursin RFS Level Per Nursing on Admit: 4+=Very High ANYA URIAS MD Feb 28, 2019 07:53
[2019-02-28] MEDS: fentaNYL INJECTION 100 MCG/2 ML AMP IV PRN ×3 (07:56→12:19)
[2019-02-28] MEDS: DIGOXIN 0.25 MG/ML (LANOXIN) 2 ML AMP IV SCH (08:46)
[2019-02-28] MEDS: PANTOPRAZOLE 40 MG (PROTONIX) VIAL IV SCH (08:46)
[2019-02-28] MEDS: ANIDULAFUNGIN 100 MG/NS 100 ML IV SCH ×2 (08:48)
--- NOTE | 2019-02-28 09:20 | OPERATIVE REPORT ---
DATE OF SERVICE: 02/25/2019 PREOPERATIVE DIAGNOSES: Pneumoperitoneum, tachycardia, respiratory failure, bilateral pleural effusions with atelectasis and consolidation as well as acute renal failure. POSTOPERATIVE DIAGNOSES: Pneumoperitoneum, tachycardia, respiratory failure, bilateral pleural effusions with atelectasis and consolidation as well as acute renal failure plus fecal contamination of the abdomen with enterotomies found. PROCEDURE: Exploratory laparotomy with lysis of adhesions and then small bowel resection x 2. SURGEON: Jung Willett DO. PREPARATORY TECHNICIAN: LEXY Mckeon. SPECIMEN: Portions of small bowel. BLOOD LOSS: Approximately 300 or 400 mL. FLUIDS: Per anesthesia. POSTOPERATIVE CONDITION: Stable. INDICATION FOR PROCEDURE: The patient is a 73-year-old female, who recently underwent lysis of adhesions. Subsequently, after the procedure, she began having abdominal pain, thought it was just normal postoperative. Had a CAT scan on the , which showed some air, but was read as possible postoperative changes, went home, but then came back to the emergency room Monday. Again, had a CAT scan performed, at this time, which showed more free air and more fluid. She was subsequently taken to the operating room just after midnight and found 2 holes in small intestine. PROCEDURE NOTE: After informed consent was obtained, the patient was brought to the operating room, placed on table in supine position. She was sterilely prepped and draped in normal fashion. A midline incision was made. The patient had previous midline incision. She has actually had two colon surgeries, one for colon cancer and then one for complete removal and she had an ileostomy. Made the incision in the midline down through the skin into subcutaneous tissue, then deepened down to subcutaneous tissue with Bovie electrocautery, down to the fascia. Fascia was then entered and excised with Bovie electrocautery. Bluntly entered the abdomen and immediately got fecal contamination, green succuss material. At this point, then suctioned all this up and opened the incision superiorly and inferiorly. There were lot of adhesions, some of these were taken down gently with some blunt dissection to be able to free up and then get into the abdomen, saw a hole in the small intestine, closed this hole with 3-0 Vicryl pop-offs, 3 pop-offs to close it and then continued looking, found another hole in the small intestine, again closed this and then started to suction out all the succuss and fecal material. At this point, then had to start running the small intestine. The patient had extensive adhesions because of her previous surgeries. It took me about 2-1/2 hours to be able to finally get all of the small intestine freed including taking it out of the pelvic gutter. While taking some of the small intestine out of the pelvic gutter, did rip a hole in the small intestine here as well. Once we had freed up all of the intestine, then ran the intestine from the ligament of Treitz all the way to the ileostomy. There was a lot of fecal fibrinous peel on the small intestine as well as on the liver and the stomach, able to take some of this off. Again, once we had freed up all the adhesions and able to run it, found the 2 sections removed. Elected to do a small bowel resection, going under the mesentery right at the first hole on either sides proximally and distally, making a defect in the mesentery with a Bovie electrocautery and then using the BINH to clamp and then transect and then cut this off the mesentery with the LigaSure, clamping, coagulating and transecting and doing this in a stepwise fashion. Elected to do another hole proximally to remove another section of the small intestine that had the opening from what was most likely or unfortunately a previous surgery, removed this with Endo-BINH as well and then the area that was down in the pelvis was in between the two of these, so I elected to just remove all of this portion and then attached the 2 portions of the small intestine back together. Placed a BINH on either side of the antimesenteric border of the proximal and distal small bowel, clamped and fired, thereby creating a [id number] functional end-to-end anastomosis and then used another firing of the BINH across the enteroenterotomy to close this and then took the portion of small bowel off, took the mesentery off using LigaSure, clamping, coagulating and transecting and coming all the way across to be able to remove this and passed this off the table, then closed this mesenteric defect with 3-0 Vicryl, 2 interrupted running sutures to close this, it closed nicely, copiously irrigated with approximately 5 liters of warm normal saline. Again, ran the small intestine, did not see any other holes. Fluid was coming out mostly. There still was a fibrinous fecal peel on the liver as well as on some of the stomach. Bleeding was controlled. Elected to place two gelfoams in the pelvis to try and keep the small intestine from going all the way down again into this area and at this point then once we copiously irrigated, suctioned all of it out, elected to close the incision, had made the incision all the way from the xiphoid to the suprapubic, closed with #1 double stranded PDS suture, one from the superior portion, one from the inferior portion, running together and meet in the middle and tying, irrigated the midline incision and then electing to not close the skin and placed a Kerlix soaked in Betadine in the midline. The patient tolerated the procedure. She was then transferred to ICU in stable condition. Sponge, instrument and needle count correct at the end of the case. Job ID: [id number] DocumentID: [id number] Dictated Date: 02/27/2019 21:53:13 Sound Engineering Technician Date: 02/28/2019 06:23:57 Dictated By: JUNG WILLETT DO
[2019-02-28] MEDS: LORazepam INJECTION FOR DRIP 20 MG in D5W 100 ML IVPB 90 ML IV SCH ×2 (09:36→14:22)
--- NOTE | 2019-02-28 11:06 | Progress Note - Hospitalist ---
Subjective HPI/CC On Admission Date Seen by Provider: Feb 28, 2019 Time Seen by Provider: 07:30 Subjective/Events-last exam Pt remains intubated but off sedation. No ROS possible. No family at bedside. Discussed with RN. UOP improving. Focused Exam Lactate Level 02/26/19 00:15: Lactic Acid Level 3.19*H 02/26/19 02:30: Lactic Acid Level 2.98*H 02/26/19 23:50: Lactic Acid Level 1.64 Time of Focused Exam: 22:00 Objective Exam Vital Signs Vital Signs Date Time Temp Pulse Resp B/P (MAP) Pulse Ox O2 Delivery O2 Flow Rate FiO2 02/28/19 10:00 116 21 152/45 (80) 95 Mechanical Ventilator 25.00 02/28/19 08:00 36.0 02/28/19 08:00 25 Capillary Refill : Less Than 3 Seconds General Appearance: Chronically ill, Other (alerts, arouses easily but sleepy) HEENT: Other (NGT in place with green output) Respiratory: No Accessory Muscle Use, Rhonci, Other (on vent) Cardiovascular: Regular Rate, Rhythm, No Murmur Neurologic/Psychiatric: Alert Results/Procedures Lab Laboratory Tests 02/28/19 03:47 Patient resulted labs reviewed. Imaging: Reviewed Imaging Report Assessment/Plan Assessment and Plan Assess & Plan/Chief Complaint Shock- mixed Fungemia -Likely mixed cardiogenic/hypovolemic/septic shock -Intermittently on Levophed but currently off - Blood cultures reveal yeast- continue on Eraxis, Vanc, and Merrem Perforated abdominal viscus -Hx of colon cancer w/ permanent ileostomy -S/P recent laparoscopy for lysis of adhesion on 02/21/19 -Post-op after repair on 02/24 -Wound Vac in place Acute respiratory failure -with bilat pleural effusions and bibasilar infiltrates -controlled on Ventilator, Managed by Primary -On IV ABX: Meropenem and vancomycin, Eraxis added 02/26 Paroxysmal Afib RVR - Converts in and out of a-fib with profound tachycardia and hypotension - Cardiology consulted, appreciate recs - Currently in sinus, on amiodarone Acute renal failure - Improving, Creatinine down, UOP up - LR at 100ml/hr Recent UTI (urinary tract infection) -Abx as above -urine culture from 02/22 shows no growth IDDMII (insulin dependent diabetes mellitus) -Control on sliding scale insulin Lactic acidosis- resolved Hx HTN -Hold home medications (Losartan) at this time - Lopressor ordered for tachycardia if BP allows DVT PPX: Heparin GI ppx: Protonix, Tube Feeds recommendations in- will start when ok with primary Diagnosis/Problems Diagnosis/Problems (1) Shock Status: Acute (2) Acute respiratory failure Status: Acute Qualifiers: Respiratory failure complication: unspecified whether with hypoxia or hypercapnia Qualified Codes: J96.00 - Acute respiratory failure, unspecified whether with hypoxia or hypercapnia (3) Fungemia Status: Acute (4) Atrial fibrillation with RVR (5) Perforated abdominal viscus Status: Acute (6) Acute renal failure Status: Acute Qualifiers: Acute renal failure type: unspecified Qualified Codes: N17.9 - Acute kidney failure, unspecified (7) Hypovolemia dehydration Status: Acute (8) Bilateral pleural effusion Status: Acute (9) IDDM (insulin dependent diabetes mellitus) Status: Acute (10) Lactic acidosis Status: Acute (11) UTI (urinary tract infection) Status: Resolved Qualifiers: Urinary tract infection type: acute cystitis Hematuria presence: without hematuria Qualified Codes: N30.00 - Acute cystitis without hematuria Resolution Date/Time: 02/27/19 @ 08:40 Clinical Quality Measures DVT/VTE Risk/Contraindication: Risk Factor Score Per Nursin RFS Level Per Nursing on Admit: 4+=Very High ABIGAIL PORTER MD Feb 28, 2019 11:06
--- NOTE | 2019-02-28 11:59 | Progress Note - Surgery ---
GILA HAYWOOD,MED STUDENT 02/28/19 1159: Subjective Date Seen by a Provider: Feb 28, 2019 Time Seen by a Provider: 07:55 Subjective/Events-last exam This morning Ms. Samson is still on the ventilator but is off sedation. She is awake and able to blink when asked. She did not have an episode of a-fib or hypotension overnight, and her BP is steady without norepinephrine. WBC is 16.3 this am, and she is at 95% SpO2 on ventilation. Urine output is also improving, at around 30ml/hour. Urine is still orange in color. Her family is not at the bedside at this time. Focused Exam Lactate Level 02/26/19 00:15: Lactic Acid Level 3.19*H 02/26/19 02:30: Lactic Acid Level 2.98*H 02/26/19 23:50: Lactic Acid Level 1.64 Time of Focused Exam: 22:00 Objective Exam Vital Signs Date Time Temp Pulse Resp B/P (MAP) Pulse Ox O2 Delivery O2 Flow Rate FiO2 02/28/19 11:14 102 26 93 25 02/28/19 11:03 124 35 94 25 02/28/19 11:00 113 19 166/52 (90) 94 Mechanical Ventilator 25.00 02/28/19 10:00 116 21 152/45 (80) 95 Mechanical Ventilator 25.00 02/28/19 09:00 113 20 151/41 (77) 94 Mechanical Ventilator 25.00 02/28/19 08:00 110 17 142/38 (72) 94 Mechanical Ventilator 25.00 02/28/19 08:00 36.0 02/28/19 08:00 97 Mechanical Ventilator 25 02/28/19 07:00 106 02/28/19 07:00 99 17 112/32 (58) 95 Mechanical Ventilator 25.00 02/28/19 06:26 100 18 95 25 02/28/19 06:00 104 17 146/37 (73) 95 Mechanical Ventilator 25.00 02/28/19 05:00 102 19 196/48 (97) 96 Mechanical Ventilator 25.00 02/28/19 04:00 91 17 119/33 (61) 95 Mechanical Ventilator 25.00 02/28/19 04:00 96 Mechanical Ventilator 35 02/28/19 03:40 36.8 02/28/19 03:00 82 18 102/29 (53) 95 Mechanical Ventilator 25.00 02/28/19 02:33 Mechanical Ventilator 25.00 02/28/19 02:26 88 18 96 25 02/28/19 02:00 89 18 166/38 (80) 97 Mechanical Ventilator 30.00 02/28/19 01:00 79 17 123/31 (61) 96 Mechanical Ventilator 30.00 02/28/19 00:59 79 02/28/19 00:00 92 18 162/36 (78) 97 Mechanical Ventilator 35.00 02/28/19 00:00 36.7 02/28/19 00:00 96 Mechanical Ventilator 35 02/27/19 23:00 90 17 121/31 (61) 95 Mechanical Ventilator 35.00 02/27/19 22:40 92 18 97 30 02/27/19 22:00 85 18 144/34 (70) 97 Mechanical Ventilator 35.00 02/27/19 21:00 84 18 150/35 (73) 98 Mechanical Ventilator 35.00 02/27/19 20:00 84 18 128/31 (63) 98 Mechanical Ventilator 35.00 02/27/19 20:00 96 Mechanical Ventilator 35 02/27/19 20:00 37.0 02/27/19 19:03 79 02/27/19 19:00 79 18 124/32 (62) 97 Mechanical Ventilator 35.00 02/27/19 18:51 79 18 98 35 02/27/19 18:00 82 17 141/36 (71) 99 Mechanical Ventilator 35.00 02/27/19 17:00 75 18 110/32 (58) 97 Mechanical Ventilator 35.00 02/27/19 16:00 76 18 110/33 (58) 97 Mechanical Ventilator 35.00 02/27/19 16:00 96 Mechanical Ventilator 35 02/27/19 15:00 76 18 118/35 (62) 97 Mechanical Ventilator 35.00 02/27/19 14:42 75 18 97 35 02/27/19 14:00 75 17 118/42 (67) 93 Mechanical Ventilator 35.00 02/27/19 13:00 76 18 113/47 (69) 96 Mechanical Ventilator 35.00 02/27/19 13:00 77 02/27/19 12:00 36.4 02/27/19 12:00 Mechanical Ventilator 35 02/27/19 12:00 96 17 129/31 (63) 96 Mechanical Ventilator 35.00 I & O 02/28/19 07:00 Intake Total 2258 ml Output Total 1550 ml Balance 708 ml Capillary Refill : Less Than 3 Seconds General Appearance: Chronically ill, Other (alerts, arouses easily but sleepy) HEENT: Other (NGT in place with green output) Respiratory: No Accessory Muscle Use, Rhonci, Other (on vent) Cardiovascular: Regular Rate, Rhythm, No Murmur, Normal Peripheral Pulses Peripheral Pulses: 2+ Dorsalis Pedis (R), 2+ Left Dors-Pedis (L), 2+ Radial Pulses (R), 2+ Radial Pulses (L) Gastrointestinal: soft; No distended Extremity: Normal Capillary Refill, Swelling (1+ to mid calves) Neurologic/Psychiatric: Alert Skin: Normal Color, Warm/Dry Results Lab Laboratory Tests 02/28/19 03:47: White Blood Count 16.3H, Red Blood Count 2.96L, Hemoglobin 9.5L, Hematocrit 29L, Mean Corpuscular Volume 97, Mean Corpuscular Hemoglobin 32, Mean Corpuscular Hemoglobin Concent 33, Red Cell Distribution Width 13.7, Platelet Count 131, Mean Platelet Volume 9.5, Neutrophils (%) (Auto) 89H, Lymphocytes (%) (Auto) 4L, Monocytes (%) (Auto) 6, Eosinophils (%) (Auto) 1, Basophils (%) (Auto) 0, Neutrophils # (Auto) 14.5H, Lymphocytes # (Auto) 0.6L, Monocytes # (Auto) 1.0, Eosinophils # (Auto) 0.2, Basophils # (Auto) 0.0, Neutrophils % (Manual) 71, Lymphocytes % (Manual) 4, Monocytes % (Manual) 4, Eosinophils % (Manual) 1, Band Neutrophils 20, Toxic Granulation 3+, Polychromasia SLIGHT, Blood Gas Puncture Site LT RAD ARTLINE, Blood Gas Patient Temperature 36.8, Arterial Blood pH 7.43, Arterial Blood Partial Pressure CO2 30L, Arterial Blood Partial Pressure O2 57L, Arterial Blood HCO3 20L, Arterial Blood Total CO2 21.0, Arterial Blood Oxygen Saturation 90L, Arterial Blood Base Excess -3.6L, Kenny Test ART LINE, Blood Gas Ventilator Setting YES, Blood Gas Inspired Oxygen 25, Sodium Level 141, Potassium Level 4.5, Chloride Level 114H, Carbon Dioxide Level 17L, Anion Gap 10, Blood Urea Nitrogen 44H, Creatinine 1.12, Estimat Glomerular Filtration Rate 48, BUN/Creatinine Ratio 39, Glucose Level 120H, Calcium Level 7.1L, Phosphorus Level 2.9, Magnesium Level 2.0 Microbiology 02/24/19 Blood Culture - Preliminary, Resulted YEAST See Comments 02/25/19 Gram Stain - Final, Complete 02/25/19 Sputum Culture - Final, Complete No growth 02/24/19 Urine Culture - Final, Complete NO GROWTH Assessment/Plan Assessment/Plan Assessment/Plan S/P Ex lap with SBR x 2 Plan to restart fluids; LR at 90ml/hr. Supportive care, Wound Vac to be placed. Urine actually looks less concentrated, so will continue fluids. Reattempt weaning parameters tonight. Pt has good output from ileostomy. Clinical Quality Measures DVT/VTE Risk/Contraindication: Risk Factor Score Per Nursin RFS Level Per Nursing on Admit: 4+=Very High JUNG MONTEJO DO 02/28/19 1805: Subjective Time Seen by a Provider: 11:02 Subjective/Events-last exam Pt seen and examined, looks better off pressors. Assessment/Plan Assessment/Plan Assessment/Plan Continue supportive care, CXR not much better, will get parameters again tomorrow am for weaning. Supervisory-Addendum Brief Verification & Attestation Participated in pt care: history, MDM, physical Personally performed: exam, history, MDM Care discussed with: Medical Student Procedures: n/a Verification and Attestation of Medical Student E/M Service A medical student performed and documented this service in my presence. I reviewed and verified all information documented by the medical student and made modifications to such information, when appropriate. I personally performed the physical exam and medical decision making. Jung Montejo, Feb 28, 2019,18:04 GILA HAYWOOD,MED STUDENT Feb 28, 2019 11:59 JUNG MONTEJO DO Feb 28, 2019 18:05
[2019-02-28 12:18] LABS: ABG BASE EXCESS -4.1 MMOL/L (-2.5-2.5); ABG OXYGEN SATURATION 86 % (94-100); ABG PCO2 37 MMHG (35-45); ABG PH 7.36 (7.37-7.43); ABG PO2 64 MMHG (79-93); ABG TCO2 21.2 MMOL/L (21.0-31.0)
[2019-02-28 12:20] LABS: ALLENS TEST YES-POS; INSPIRED O2 25%; PATIENT TEMP 38.1; VENTILATOR YES
[2019-02-28] MEDS ORDERED: hydrALAZINE (APESOLINE) 20 MG/ML VIAL ONE (16:47)
[2019-02-28] MEDS ORDERED: TROUGH ORDER-PHARMACY XX NR (18:00)
[2019-02-28] MEDS: VANCOMYCIN 1500 MG/NS 500 ML IVPB IV SCH ×2 (18:43)
--- NOTE | 2019-02-28 19:00 | NUR ---
[address] PORTER OF SBP IN 180-190S SINCE BEING OF FENTANYL AND PRECEDEX. ONCE RESTARTED SBP WAS STILL IN 160S. NURSE ASKED IF HOME BP COULD BE RESTARTED. [address] PORTER THAT PT SBP HAS BEEN UP AND DOWN BUT HAS BEEN MAINTAINING IN THE 180-190S AGAIN. ORDERS GIVEN FOR PRN HYDRALAZINE GIVEN.
[2019-03-01] VITALS (29 sets, daily range): BP systolic 117–268; BP diastolic 39–86
[2019-03-01] MEDS: meTOprolol 5 MG/5 ML (LOPRESSOR) VIAL IV SCH ×4 (00:05→16:06)
[2019-03-01] MEDS: RT-IPRATROPIUM (ATROVENT) 0.5MG/2.5ML AMP IH SCH ×6 (02:44→22:41)
[2019-03-01 03:18] LABS: ABG BASE EXCESS -3.6 MMOL/L (-2.5-2.5); ABG OXYGEN SATURATION 91 % (94-100); ABG PCO2 31 MMHG (35-45); ABG PH 7.43 (7.37-7.43); ABG PO2 57 MMHG (79-93); ABG TCO2 21.2 MMOL/L (21.0-31.0); BASOPHILS # (AUTO) 0.1 10^3/uL (0.0-0.1); BASOPHILS % (AUTO) 0 % (0-10); EOSINOPHILS # (AUTO) 0.1 10^3/uL (0.0-0.3); EOSINOPHILS % (AUTO) 1 % (0-10); HEMATOCRIT 29 % (35-52); HEMOGLOBIN 9.7 G/DL (11.5-16.0); LYMPHOCYTES # (AUTO) 0.8 X 10^3 (1.0-4.0); LYMPHOCYTES % (AUTO) 5 % (12-44); MEAN CORPUSCULAR HEMOGLOBIN 32 PG (25-34); MEAN CORPUSCULAR HGB CONC 33 G/DL (32-36); MEAN CORPUSCULAR VOLUME 97 FL (80-99); MEAN PLATELET VOLUME 9.4 FL (7.4-10.4); MONOCYTES # (AUTO) 0.5 X 10^3 (0.0-1.0); MONOCYTES % (AUTO) 3 % (0-12); NEUTROPHILS # (AUTO) 14.1 X 10^3 (1.8-7.8); NEUTROPHILS % (AUTO) 91 % (42-75); PLATELET COUNT 119 10^3/uL (130-400); RED CELL DISTRIBUTION WIDTH 13.5 % (10.0-14.5); WHITE BLOOD COUNT 15.6 10^3/uL (4.3-11.0)
[2019-03-01 03:21] LABS: ALLENS TEST ART LINE
[2019-03-01 03:22] LABS: INSPIRED O2 25; PATIENT TEMP 36.3; VENTILATOR YES
[2019-03-01] MEDS: LACTATED RINGERS 1,000 ML IV SCH ×3 (03:32→23:17)
[2019-03-01] MEDS: inSUlin ASPART (NovoLOG) 1 UNIT/0.01 ML (CHARGE PER UNIT) SQ SCH ×4 (03:33→18:05)
[2019-03-01] MEDS: DILTIAZEM IV FOR DRIP 125 MG in NS (IVPB) 100 ML IV SCH (03:35)
[2019-03-01] MEDS: LORazepam INJECTION FOR DRIP 20 MG in D5W 100 ML IVPB 90 ML IV SCH ×2 (03:36→10:04)
[2019-03-01 03:47] LABS: CALCIUM 7.4 MG/DL (8.5-10.1); CREATININE SERUM 1.06 MG/DL (0.60-1.30); PHOSPHORUS 3.3 MG/DL (2.3-4.7); POTASSIUM 4.8 MMOL/L (3.6-5.0)
[2019-03-01] MEDS: POTASSIUM CL 10MEQ/50ML IVPB 50 ML IV SCH (03:51)
[2019-03-01] MEDS: MAGNESIUM 1 GM/100 ML IVPB 100 ML IV SCH (03:51)
[2019-03-01] MEDS: KCL 20 MEQ TAB (K-DUR) PO SCH (03:52)
[2019-03-01 04:56] LABS: ABG BASE EXCESS -3.8 MMOL/L (-2.5-2.5); ABG OXYGEN SATURATION 89 % (94-100); ABG PCO2 32 MMHG (35-45); ABG PH 7.41 (7.37-7.43); ABG PO2 61 MMHG (79-93); ABG TCO2 21.1 MMOL/L (21.0-31.0)
[2019-03-01 05:06] LABS: ALLENS TEST ART LINE; INSPIRED O2 25; PATIENT TEMP 36.6; VENTILATOR YES
[2019-03-01] MEDS: hydrALAZINE (APESOLINE) 20 MG/ML VIAL IV PRN ×3 (05:09→16:06)
[2019-03-01 05:27] LABS: ABG BASE EXCESS -3.7 MMOL/L (-2.5-2.5); ABG OXYGEN SATURATION 88 % (94-100); ABG PCO2 32 MMHG (35-45); ABG PH 7.42 (7.37-7.43); ABG PO2 60 MMHG (79-93); ABG TCO2 21.1 MMOL/L (21.0-31.0); ALLENS TEST YES-POS; INSPIRED O2 30; PATIENT TEMP 36.6; VENTILATOR YES
--- NOTE | 2019-03-01 06:30 | NUR ---
Informed EICU of the patients weaning results done by RT as well as ABG results. Patient's sedation turned off and is following some commands. EICU doctor recommends extubating patient based off the RT weaning results and ABGs as long as patient is following commands.
[2019-03-01] MEDS: MEROPENEM 500 MG/SWFI 10 ML IV PUSH IV SCH ×6 (06:50→16:06)
[2019-03-01] MEDS ORDERED: meTOprolol 5 MG/5 ML (LOPRESSOR) VIAL IV NR (07:00)
[2019-03-01] MEDS ORDERED: FUROSEMIDE 40 MG/4 ML INJ (LASIX) ONE (07:52)
[2019-03-01] MEDS: PANTOPRAZOLE 40 MG (PROTONIX) VIAL IV SCH (07:57)
--- NOTE | 2019-03-01 07:57 | Cardiology Progress Note ---
Subjective Date Seen by Provider: Mar 01, 2019 Time Seen by Provider: 07:52 Subjective/Events-last exam Patient is awake and lethargic, still intubated. Following commands Review of Systems General: Other (intubated, lethargic, unable to provide review of systems) Focused Exam Possible Source: GI Tract/Intra-Abdominal Lactate Level 02/26/19 23:50: Lactic Acid Level 1.64 Time of Focused Exam: 22:00 Respiratory: Chest Non Tender, Crackles, Decreased Breath Sounds, Other (Ventilatory dependent) Cardiovascular: Regular Rate, Rhythm, No Gallop, Normal Peripheral Pulses, Other (+2 pedal edema) Skin: normal color, cool, diaphoresis, damp Objective-Cardiology Exam Last Set of Vital Signs Vital Signs 03/01/19 03/01/19 03/01/19 03:43 06:00 06:45 Temp 36.3 Pulse 84 Resp 22 B/P (MAP) 168/51 (90) Pulse Ox 96 O2 Delivery Mechanical Ventilator O2 Flow Rate 30.00 FiO2 30 Capillary Refill : Less Than 3 Seconds I&O Intake and Output 03/01/19 00:00 Intake Total 1388 ml Output Total 1500 ml Balance -112 ml Intake Oral 0 ml IV Total 1388 ml Output Urine Total 1350 ml Stool Total 150 ml General: Mild Distress, Other (Ventilator dependent) HEENT: Atraumatic Neck: Supple, No Thyromegaly Lungs: Normal Air Movement, Other (Bilateral rhonchi) Heart: Regular Rate, Normal S1, Normal S2, No Murmurs Abdomen: No Masses, Other (Diminished bowel sounds) Extremities: No Clubbing, No Cyanosis, No Edema, Normal Pulses, No Tenderness/Swelling Skin: No Rashes Neuro: Other (Awake, following commands) Psych/Mental Status: Other (Intubated) Results Lab Laboratory Tests 03/01/19 03:10 A/P-Cardiology Admission Diagnosis Acute respiratory failure Paroxysmal atrial fibrillation Coronary artery disease Hypertension Assessment/Plan Acute respiratory failure, ventilator dependent, planning to extubate today if she can tolerate it Status post emergency abdominal surgery for perforated viscus and colon resection, had the surgery on February 25, 2019, absent bowel sounds, receiving antibiotic, managed by general surgery Paroxysmal atrial fibrillation, in and out of atrial fibrillation currently in sinus rhythm on amiodarone drip receiving digoxin IV, currently in sinus rhythm. Continue to monitor Hypotensive shock, currently hypertensive while being weaned off the ventilator. I will give 1 dose of IV Lasix and monitor tolerance and response Coronary artery disease, history of cardiac catheterization in July 2012 showing 50 percent midright coronary artery stenosis, nonobstructive disease, had a borderline disease in the midright coronary artery. Most recent cardiac catheterization done April 2018 revealed mild ectasia in the proximal LAD with mild disease in the mid LAD, small vessel disease distally, mild ectasia in the proximal circumflex artery and 40-50 percent stenosis in the mid right coronary artery, nonobstructive disease History of colon cancer, history of colon resection and colostomy in the remote past has been in remission and followed by Dr. Branham History of hyperlipidemia Carotid artery , continue to monitor carotid Syncope, had a syncopal episode in October 2015 probably due to dehydration. Was in renal failure. Improved. Thyroid nodules noted on ultrasound, followed by Dr. Branham and Dr. Simmons Diabetes mellitus, followed and managed by primary care physician. History of colon cancer, history of colostomy. Currently in remission. Followed by Dr. Branham Family history of coronary artery disease. Obstructive sleep apnea, intolerance to CPAP History of appendectomy, kidney stones, hysterectomy. Breast biopsy. Clinical Quality Measures DVT/VTE Risk/Contraindication: Risk Factor Score Per Nursin RFS Level Per Nursing on Admit: 4+=Very High NAYA URIAS MD Mar 01, 2019 07:56
[2019-03-01] MEDS: DIGOXIN 0.25 MG/ML (LANOXIN) 2 ML AMP IV SCH (07:58)
[2019-03-01] MEDS ORDERED: FUROSEMIDE 40 MG/4 ML INJ (LASIX) IVP ONE (08:00)
--- NOTE | 2019-03-01 08:23 | Diagnostic Imaging Report ---
INDICATION: Ventilated patient. COMPARISON: 02/28/2019 FINDINGS: Single frontal radiograph view of the chest was obtained and demonstrates indwelling endotracheal tube with tip below the clavicular heads and above the nomi. Gastric tube extends inferiorly beyond the field of view. Right upper extremity PICC line is again seen with tip near the cavoatrial junction. Lungs continue to show moderate bibasilar effusions with associated bibasilar airspace disease. There is no pneumothorax. Overall, aeration is stable. Cardiac silhouette and pulmonary vasculature is stable as well. Osseous structures show no acute adverse interval change. IMPRESSION: 1. Stable lines and tubes as above. 2. Stable aeration with moderate bibasilar effusions and associated bibasilar atelectasis and/or infiltrate. Dictated by: Dictated on workstation # [id number]
--- NOTE | 2019-03-01 08:45 | NUR ---
Pt extubated at this time and restraints removed. RT at bedside at this time. Will continue to closely monitor.
[2019-03-01] MEDS: fentaNYL INJECTION 100 MCG/2 ML AMP IVP PRN ×4 (09:05→21:56)
[2019-03-01] MEDS ORDERED: fentaNYL INJECTION 100 MCG/2 ML AMP ONE (09:06)
[2019-03-01] MEDS: fentaNYL INJECTION 1,250 MCG in NS (IVPB) 250 ML IV SCH (10:01)
--- NOTE | 2019-03-01 10:51 | Progress Note - Surgery ---
EDUARDO ESPINOSA [facility] 03/01/19 1051: Subjective Date Seen by a Provider: Mar 01, 2019 Time Seen by a Provider: 09:05 Subjective/Events-last exam Patient was just extubated and had received pain medication before wound vac change. Before the Lasix, patient was at 200ml of urine output every 4 hours. Family was at bedside and answered all questions Focused Exam Lactate Level 02/26/19 23:50: Lactic Acid Level 1.64 Time of Focused Exam: 22:00 Objective Exam Vital Signs Date Time Temp Pulse Resp B/P (MAP) Pulse Ox O2 Delivery O2 Flow Rate FiO2 03/01/19 10:00 133 41 168/69 (102) 94 Mechanical Ventilator 30.00 03/01/19 09:00 114 37 161/61 (94) 94 Mechanical Ventilator 30.00 03/01/19 08:45 92 Nasal Cannula 2.00 03/01/19 08:00 89 22 183/56 (98) 96 Mechanical Ventilator 30.00 03/01/19 08:00 Mechanical Ventilator 25 03/01/19 07:00 83 03/01/19 07:00 89 18 199/58 (105) 97 Mechanical Ventilator 30.00 03/01/19 06:45 84 22 96 30 03/01/19 06:00 77 20 168/51 (90) 97 Mechanical Ventilator 30.00 03/01/19 05:23 85 18 97 30 03/01/19 05:00 Mechanical Ventilator 30.00 03/01/19 05:00 94 28 208/57 (107) 97 Mechanical Ventilator 30.00 03/01/19 04:36 84 28 98 30 03/01/19 04:00 96 Mechanical Ventilator 25 03/01/19 04:00 68 18 127/41 (69) 96 Mechanical Ventilator 25.00 03/01/19 03:43 36.3 03/01/19 03:00 68 18 122/43 (69) 98 Mechanical Ventilator 25.00 03/01/19 02:45 69 18 97 25 03/01/19 02:00 70 18 117/39 (65) 97 Mechanical Ventilator 25.00 03/01/19 01:00 72 19 151/43 (79) 98 Mechanical Ventilator 25.00 03/01/19 00:59 72 03/01/19 00:00 80 28 182/59 (100) 95 Mechanical Ventilator 25.00 03/01/19 00:00 96 Mechanical Ventilator 25 03/01/19 00:00 36.1 02/28/19 23:03 68 18 97 25 02/28/19 23:00 68 18 125/43 (70) 97 Mechanical Ventilator 25.00 02/28/19 22:00 71 17 103/37 (59) 96 Mechanical Ventilator 25.00 02/28/19 21:00 82 17 201/52 (101) 100 Mechanical Ventilator 25.00 02/28/19 20:00 36.5 02/28/19 20:00 96 Mechanical Ventilator 25 02/28/19 20:00 73 18 103/37 (59) 96 Mechanical Ventilator 25.00 02/28/19 19:10 85 18 97 25 02/28/19 19:08 86 02/28/19 19:00 84 18 149/46 (80) 97 Mechanical Ventilator 25.00 02/28/19 17:00 100 22 197/52 (100) 95 Mechanical Ventilator 25.00 02/28/19 17:00 36.6 02/28/19 16:00 96 Mechanical Ventilator 25 02/28/19 16:00 82 18 118/42 (67) 96 Mechanical Ventilator 25.00 02/28/19 15:00 88 10 135/53 (80) 96 Mechanical Ventilator 25.00 02/28/19 14:00 90 17 105/48 (67) 95 Mechanical Ventilator 25.00 02/28/19 13:21 110 22 95 25 02/28/19 13:00 110 27 194/53 (100) 94 Mechanical Ventilator 25.00 02/28/19 13:00 36.5 02/28/19 12:34 115 02/28/19 12:00 38.1 02/28/19 12:00 96 Mechanical Ventilator 25 02/28/19 12:00 113 34 178/54 (95) 94 Mechanical Ventilator 25.00 02/28/19 11:14 102 26 93 25 02/28/19 11:03 124 35 94 25 02/28/19 11:00 113 19 166/52 (90) 94 Mechanical Ventilator 25.00 I & O 03/01/19 07:00 Intake Total 1130 ml Output Total 1775 ml Balance -645 ml Capillary Refill : Less Than 3 Seconds General Appearance: Mild Distress, Other (alert and answering questions) HEENT: Other (NG tube with little output) Respiratory: Accessory Muscle Use, Other (Increased respiratory effort) Cardiovascular: Other (generalized edema) Gastrointestinal: other (Midline incision, Appeared to be healing appropriately, Colostomy bag had output and functioning) Extremity: Other (Wearing Dawson Boots at time) Neurologic/Psychiatric: Alert Skin: Normal Color, Warm/Dry Results Lab Laboratory Tests 02/28/19 12:10: Blood Gas Puncture Site L RADIAL, Blood Gas Patient Temperature 38.1, Arterial Blood pH 7.36L, Arterial Blood Partial Pressure CO2 37, Arterial Blood Partial Pressure O2 64L, Arterial Blood HCO3 20L, Arterial Blood Total CO2 21.2, Arterial Blood Oxygen Saturation 86L, Arterial Blood Base Excess -4.1L, Kenny Test YES-POS, Blood Gas Ventilator Setting YES, Blood Gas Inspired Oxygen 25% 03/01/19 03:10: Blood Gas Puncture Site LT RADIAL ARTLINE, Blood Gas Patient Temperature 36.3, Arterial Blood pH 7.43, Arterial Blood Partial Pressure CO2 31L, Arterial Blood Partial Pressure O2 57L, Arterial Blood HCO3 20L, Arterial Blood Total CO2 21.2, Arterial Blood Oxygen Saturation 91L, Arterial Blood Base Excess -3.6L, Kenny Test ART LINE, Blood Gas Ventilator Setting YES, Blood Gas Inspired Oxygen 25, White Blood Count 15.6H, Red Blood Count 2.99L, Hemoglobin 9.7L, Hematocrit 29L, Mean Corpuscular Volume 97, Mean Corpuscular Hemoglobin 32, Mean Corpuscular Hemoglobin Concent 33, Red Cell Distribution Width 13.5, Platelet Count 119L, Mean Platelet Volume 9.4, Neutrophils (%) (Auto) 91H, Lymphocytes (%) (Auto) 5L, Monocytes (%) (Auto) 3, Eosinophils (%) (Auto) 1, Basophils (%) (Auto) 0, Neutrophils # (Auto) 14.1H, Lymphocytes # (Auto) 0.8L, Monocytes # (Auto) 0.5, Eosinophils # (Auto) 0.1, Basophils # (Auto) 0.1, Sodium Level 142, Potassium Level 4.8, Chloride Level 116H, Carbon Dioxide Level 18L, Anion Gap 8, Blood Urea Nitrogen 44H, Creatinine 1.06, Estimat Glomerular Filtration Rate 51, BUN/Creatinine Ratio 42, Glucose Level 130H, Calcium Level 7.4L, Phosphorus Level 3.3, Magnesium Level 2.0 03/01/19 04:49: Blood Gas Puncture Site LT RAD ARTLINE, Blood Gas Patient Temperature 36.6, Arterial Blood pH 7.41, Arterial Blood Partial Pressure CO2 32L, Arterial Blood Partial Pressure O2 61L, Arterial Blood HCO3 20L, Arterial Blood Total CO2 21.1, Arterial Blood Oxygen Saturation 89L, Arterial Blood Base Excess -3.8L, Kenny Test ART LINE, Blood Gas Ventilator Setting YES, Blood Gas Inspired Oxygen 25 03/01/19 05:20: Blood Gas Puncture Site RT RAD, Blood Gas Patient Temperature 36.6, Arterial Blood pH 7.42, Arterial Blood Partial Pressure CO2 32L, Arterial Blood Partial Pressure O2 60L, Arterial Blood HCO3 20L, Arterial Blood Total CO2 21.1, Arterial Blood Oxygen Saturation 88L, Arterial Blood Base Excess -3.7L, Kenny Test YES-POS, Blood Gas Ventilator Setting YES, Blood Gas Inspired Oxygen 30 Microbiology 02/24/19 Blood Culture - Preliminary, Resulted Marilia albicans See Comments 02/25/19 Gram Stain - Final, Complete 02/25/19 Sputum Culture - Final, Complete No growth 02/24/19 Urine Culture - Final, Complete NO GROWTH Assessment/Plan Assessment/Plan Assessment/Plan Continue wound care Candidemia and treatment with antifungals Monitor BP Monitor Urine output Clinical Quality Measures DVT/VTE Risk/Contraindication: Risk Factor Score Per Nursin RFS Level Per Nursing on Admit: 4+=Very High MISSY MONTEJO DO 03/01/19 1209: Subjective Time Seen by a Provider: 09:05 Subjective/Events-last exam Pt seen and examined. States she really doesn't have any pain. Assessment/Plan Assessment/Plan Assessment/Plan Pt extubated, looks good but also using some accesory ms to breath. Monitor breathing, pt got some Lasix which may help. I am concerned she may need Vapoth erm or BiPap. Supervisory-Addendum Brief Verification & Attestation Participated in pt care: history, MDM, physical Personally performed: history, MDM Care discussed with: Medical Student Procedures: n/a Verification and Attestation of Medical Student E/M Service A medical student performed and documented this service in my presence. I reviewed and verified all information documented by the medical student and made modifications to such information, when appropriate. I personally performed the physical exam and medical decision making. Missy Montejo, Mar 01, 2019,12:08 EDUARDO ESPINOSA [facility] Mar 01, 2019 10:51 MISSY MONTEJO DO Mar 01, 2019 12:09
--- NOTE | 2019-03-01 11:36 | Progress Note - Hospitalist ---
Subjective HPI/CC On Admission Date Seen by Provider: Mar 01, 2019 Time Seen by Provider: 11:32 Subjective/Events-last exam Intubated and off sedation. Shakes her head that she is uncomfortable though. Focused Exam Lactate Level 02/26/19 23:50: Lactic Acid Level 1.64 Time of Focused Exam: 22:00 Objective Exam Vital Signs Vital Signs Date Time Temp Pulse Resp B/P (MAP) Pulse Ox O2 Delivery O2 Flow Rate FiO2 03/01/19 11:00 111 39 151/60 (90) 98 Nasal Cannula 3.00 03/01/19 08:00 25 03/01/19 03:43 36.3 Capillary Refill : Less Than 3 Seconds General Appearance: Chronically ill Respiratory: Lungs Clear, Other (on vent) Cardiovascular: Regular Rate, Rhythm, No Murmur Gastrointestinal: Soft, Abnormal Bowel Sounds (quiet), Other (ileostomy in place) Genital/Rectal: Other (hall catheter in place) Extremity: Pedal Edema Neurologic/Psychiatric: Alert Results/Procedures Lab Laboratory Tests 03/01/19 03:10 Patient resulted labs reviewed. Imaging: Reviewed Imaging Report Assessment/Plan Assessment and Plan Assess & Plan/Chief Complaint Shock- mixed Fungemia -Likely mixed cardiogenic/hypovolemic/septic shock -Off pressors -Blood cultures reveal yeast- continue on Merrem and switch to Diflucan, DC Vanc as MRSA negative Perforated abdominal viscus -Hx of colon cancer w/ permanent ileostomy -S/P recent laparoscopy for lysis of adhesion on 02/21/19 -Post-op after repair on 02/24 -Wound Vac in place Acute respiratory failure- -with bilat pleural effusions and bibasilar infiltrates -controlled on Ventilator, Managed by Primary - To be extubated this AM per eICU -On IV ABX: Meropenem and Diflucan as above Paroxysmal Afib RVR - Converts in and out of a-fib with profound tachycardia and hypotension - Cardiology consulted, appreciate recs - Currently in sinus - Digoxin ordered, off amio gtt Acute renal failure- resolved - Improving, Creatinine down, UOP stable - Received Lasix this AM Recent UTI (urinary tract infection) -Abx as above -urine culture from 02/22 shows no growth IDDMII (insulin dependent diabetes mellitus) -Control on sliding scale insulin Lactic acidosis- resolved Hx HTN -Hydralazine, lopressor DVT PPX: Heparin GI ppx: Protonix, Tube Feeds recommendations in- will start when ok with primary Diagnosis/Problems Diagnosis/Problems (1) Shock Status: Acute (2) Acute respiratory failure Status: Acute Qualifiers: Respiratory failure complication: unspecified whether with hypoxia or hypercapnia Qualified Codes: J96.00 - Acute respiratory failure, unspecified whether with hypoxia or hypercapnia (3) Fungemia Status: Acute (4) Atrial fibrillation with RVR (5) Perforated abdominal viscus Status: Acute (6) Acute renal failure Status: Acute Qualifiers: Acute renal failure type: unspecified Qualified Codes: N17.9 - Acute kidney failure, unspecified (7) Hypovolemia dehydration Status: Acute (8) Bilateral pleural effusion Status: Acute (9) IDDM (insulin dependent diabetes mellitus) Status: Acute (10) Lactic acidosis Status: Acute (11) UTI (urinary tract infection) Status: Resolved Qualifiers: Urinary tract infection type: acute cystitis Hematuria presence: without hematuria Qualified Codes: N30.00 - Acute cystitis without hematuria Resolution Date/Time: 02/27/19 @ 08:40 Clinical Quality Measures DVT/VTE Risk/Contraindication: Risk Factor Score Per Nursin RFS Level Per Nursing on Admit: 4+=Very High ABIGAIL PORTER MD Mar 01, 2019 11:36
[2019-03-01] MEDS: VANCOMYCIN 1500 MG/NS 500 ML IVPB IV SCH ×2 (19:40)
[2019-03-01] MEDS ORDERED: LABETALOL HCL 20 MG/4 ML VIAL ONE (20:09)
[2019-03-01] MEDS ORDERED: LABETALOL HCL 20 MG/4 ML VIAL IV NR (20:15)
[2019-03-01] MEDS ORDERED: niCARdipine 50 MG/NS 250 ML IV DRIP IV SCH ×2 (21:30)
[2019-03-01] MEDS ORDERED: niCARdipine IV FOR DRIP 50 MG KIT ONE (21:34)
[2019-03-01] MEDS ORDERED: NS (IVPB) 250 ML ONE (21:34)
--- NOTE | 2019-03-01 23:00 | NUR ---
2000: PT'S BLOOD PRESSURE PER LEFT RADIAL ART LINE ELEVATED AT THIS TIME; 249/65, HEART RATE 120. ART LINE ZERO'D MULTIPLE TIMES AND PRN IV FENTANYL ADMINISTERED APPROXIMATELY 30 MIN EARLIER ORDERED FOR PAIN CONTROL. E-ICU NOTIFIED OF UNCONTROLLED HYPERTENSION. 2009: 10 MG IV LABETALOL X1 ORDERED PER E-ICU. 2099: PT'S B/P CONTINUES TO BE ELEVATED; E-ICU ORDERED CARDENE DRIP AT THIS TIME; AND TO TITRATE TO KEEP SBP>180.
[2019-03-02] VITALS (27 sets, daily range): BP systolic 149–216; BP diastolic 37–59
[2019-03-02] MEDS: fentaNYL INJECTION 100 MCG/2 ML AMP IVP PRN ×5 (00:14→09:36)
[2019-03-02] MEDS: inSUlin ASPART (NovoLOG) 1 UNIT/0.01 ML (CHARGE PER UNIT) SQ SCH ×4 (00:19→18:16)
[2019-03-02] MEDS ORDERED: FUROSEMIDE 40 MG/4 ML ONE (00:25)
[2019-03-02] MEDS ORDERED: NS (IVPB) 100 ML ONE (00:26)
[2019-03-02] MEDS ORDERED: NS IV SCH (00:45)
[2019-03-02] MEDS ORDERED: FUROSEMIDE INJECTION 120 MG in D5W 100 ML IVPB 108 ML IV SCH (00:45)
[2019-03-02] MEDS ORDERED: FUROSEMIDE IV SCH (00:45)
[2019-03-02] MEDS: meTOprolol 5 MG/5 ML (LOPRESSOR) VIAL IV SCH ×4 (01:03→18:16)
[2019-03-02] MEDS: MEROPENEM 500 MG/SWFI 10 ML IV PUSH IV SCH ×4 (01:04→06:36)
[2019-03-02] MEDS: RT-IPRATROPIUM (ATROVENT) 0.5MG/2.5ML AMP IH SCH ×6 (01:49→21:05)
[2019-03-02 03:29] LABS: BASOPHILS # (AUTO) 0.1 10^3/uL (0.0-0.1); BASOPHILS % (AUTO) 1 % (0-10); EOSINOPHILS % (AUTO) 0 % (0-10); HEMATOCRIT 33 % (35-52); LYMPHOCYTES # (AUTO) 1.3 X 10^3 (1.0-4.0); LYMPHOCYTES % (AUTO) 7 % (12-44); MEAN CORPUSCULAR HEMOGLOBIN 32 PG (25-34); MEAN CORPUSCULAR HGB CONC 33 G/DL (32-36); MEAN CORPUSCULAR VOLUME 96 FL (80-99); MEAN PLATELET VOLUME 9.5 FL (7.4-10.4); MONOCYTES # (AUTO) 0.7 X 10^3 (0.0-1.0); MONOCYTES % (AUTO) 4 % (0-12); NEUTROPHILS % (AUTO) 89 % (42-75); PLATELET COUNT 181 10^3/uL (130-400); RED CELL DISTRIBUTION WIDTH 13.8 % (10.0-14.5)
[2019-03-02 03:45] LABS: CREATININE SERUM 1.05 MG/DL (0.60-1.30); MAGNESIUM 1.8 MG/DL (1.6-2.4); PHOSPHORUS 3.8 MG/DL (2.3-4.7); POTASSIUM 4.3 MMOL/L (3.6-5.0)
[2019-03-02 03:49] LABS: BAND NEUTROPHILS 9 %; LYMPHOCYTES % (MANUAL) 4 %; MONOCYTES % (MANUAL) 6 %; NEUTROPHILS % (MANUAL) 80 %; POIKILOCYTOSIS SLIGHT; POLYCHROMASIA SLIGHT; TOXIC GRANULATION/VACUOLAZATIO 1+
[2019-03-02] MEDS: POTASSIUM CL 10MEQ/50ML IVPB 50 ML IV SCH (05:35)
[2019-03-02] MEDS: KCL 20 MEQ TAB (K-DUR) PO SCH (05:35)
[2019-03-02] MEDS: MAGNESIUM 1 GM/100 ML IVPB 100 ML IV SCH (05:35)
--- NOTE | 2019-03-02 06:28 | Diagnostic Imaging Report ---
Semierect portable AP chest at 0409 hours. INDICATION: Dyspnea. FINDINGS: In the interval since the prior study of 03/01/2019, the patient has been extubated. The NG line and the central venous catheter on the right seen previously are again evident and essentially no different. There is still partial opacification of both lung bases by atelectasis/infiltrate and fluid. The lung apices are clear. The heart is stable. The mediastinum is not widened. The osseous structures are intact. IMPRESSION: Stable postextubation chest. A follow-up exam would be recommended for continued evaluation. Dictated by: Dictated on workstation # [id number]
[2019-03-02] MEDS ORDERED: niCARdipine IV 50 MG in NS (IVPB) 230 ML IV SCH (07:36)
[2019-03-02] MEDS: FLUCONAZOLE 200 MG/NACL 100 ML (PRE-MIX) IV SCH (07:55)
[2019-03-02] MEDS: DIGOXIN 0.25 MG/ML (LANOXIN) 2 ML AMP IV SCH (07:55)
--- NOTE | 2019-03-02 08:53 | Cardiology Progress Note ---
Subjective Date Seen by Provider: Mar 02, 2019 Time Seen by Provider: 08:51 Subjective/Events-last exam Patient is laying down in bed, feeling better. Had an episode of severe hypertension last night Had an episode of atrial fibrillation with rapid ventricular response Started on Cardene drip and Lasix drip overnight by eICU Review of Systems General: No Chills, No Night Sweats; Fatigue, Malaise; No Appetite, No Other HEENT: No Head Aches, No Visual Changes, No Eye Pain, No Ear Pain, No Dysphasia, No Sinus Congestion, No Post Nasal Drip, No Sore Throat, No Other Pulmonary: Dyspnea; No Cough, No Pleuritic Chest Pain, No Other Cardiovascular: Edema; No: Chest Pain, Palpitations, Orthopnea, Paroxysmal Noc. Dyspnea, Lt Headedness, Other Focused Exam Time of Focused Exam: 22:00 Objective-Cardiology Exam Last Set of Vital Signs Vital Signs 03/01/19 03/01/19 03/01/19 03/02/19 03/02/19 08:00 19:30 20:00 06:00 06:40 Temp 36.3 Pulse 112 Resp 30 B/P (MAP) 173/50 (91) Pulse Ox 94 O2 Delivery Room Air O2 Flow Rate 3.00 FiO2 25 Capillary Refill : Less Than 3 Seconds I&O Intake and Output 03/02/19 00:00 Intake Total 1525 ml Output Total 3050 ml Balance -1525 ml Intake Oral 25 ml IV Total 1500 ml Output Urine Total 3000 ml Stool Total 50 ml General: Alert, Oriented X3, Cooperative, Mild Distress HEENT: Atraumatic Neck: Supple, No Thyromegaly Lungs: Clear to Auscultation, Normal Air Movement Heart: Normal S1, Normal S2, No Murmurs, Other (Atrial fibrillation) Abdomen: No Masses, Other (Diminished bowel sounds) Extremities: No Clubbing, No Cyanosis, No Edema, Normal Pulses, No Tenderness/Swelling Skin: No Rashes Neuro: Normal Speech Psych/Mental Status: Mental Status NL Results Lab Laboratory Tests 03/02/19 03:15 A/P-Cardiology Admission Diagnosis Acute respiratory failure Paroxysmal atrial fibrillation Coronary artery disease Hypertension Assessment/Plan Status post respiratory failure, extubated at this time and doing better. Paroxysmal atrial fibrillation, has been in and out of atrial fibrillation, back in A. fib with RVR, we will use boluses of Lopressor and verapamil IV and monitor tolerance and response Patient was started on Lasix drip, I will stop the drip and use boluses of Lasix Status post hypotensive shock, better, had severe hypertension, will adjust medication monitor blood pressure. Coronary artery disease, history of cardiac catheterization in July 2012 showing 50 percent midright coronary artery stenosis, nonobstructive disease, had a borderline disease in the midright coronary artery. Most recent cardiac catheterization done April 2018 revealed mild ectasia in the proximal LAD with mild disease in the mid LAD, small vessel disease distally, mild ectasia in the proximal circumflex artery and 40-50 percent stenosis in the mid right coronary artery, nonobstructive disease History of colon cancer, history of colon resection and colostomy in the remote past has been in remission and followed by Dr. Branham History of hyperlipidemia Carotid artery , continue to monitor carotid Syncope, had a syncopal episode in October 2015 probably due to dehydration. Was in renal failure. Improved. Thyroid nodules noted on ultrasound, followed by Dr. Branham and Dr. Simmons Diabetes mellitus, followed and managed by primary care physician. History of colon cancer, history of colostomy. Currently in remission. Followed by Dr. Branham Family history of coronary artery disease. Obstructive sleep apnea, intolerance to CPAP History of appendectomy, kidney stones, hysterectomy. Breast biopsy. Clinical Quality Measures DVT/VTE Risk/Contraindication: Risk Factor Score Per Nursin RFS Level Per Nursing on Admit: 4+=Very High NAYA URIAS MD Mar 02, 2019 08:53
[2019-03-02] MEDS ORDERED: ENOXAPARIN 100 MG/1 ML (LOVENOX) SYR SC SCH (09:00)
[2019-03-02] MEDS ORDERED: PANTOPRAZOLE 40 MG (PROTONIX) TAB PO SCH (09:00)
--- NOTE | 2019-03-02 09:11 | Progress Note - Hospitalist ---
Subjective HPI/CC On Admission Date Seen by Provider: Mar 02, 2019 Time Seen by Provider: 09:06 Subjective/Events-last exam Pt alert and awake. Now extubated. Complains of some abd pain otherwise not complaints. Feels better. Focused Exam Time of Focused Exam: 22:00 Objective Exam Vital Signs Vital Signs Date Time Temp Pulse Resp B/P (MAP) Pulse Ox O2 Delivery O2 Flow Rate FiO2 03/02/19 06:40 94 Room Air 03/02/19 06:00 112 30 173/50 (91) 03/01/19 20:00 3.00 03/01/19 19:30 36.3 03/01/19 08:00 25 Capillary Refill : Less Than 3 Seconds General Appearance: No Apparent Distress, Chronically ill HEENT: Other (NGT in place) Respiratory: No Respiratory Distress, Decreased Breath Sounds Cardiovascular: No Murmur, Tachycardia Gastrointestinal: Soft, Abnormal Bowel Sounds (quiet), Distended, Other (ostomy in place) Extremity: No Calf Tenderness, Pedal Edema Neurologic/Psychiatric: Alert, Oriented x3 Results/Procedures Lab Laboratory Tests 03/02/19 03:15 Patient resulted labs reviewed. Imaging: Reviewed Imaging Report Assessment/Plan Assessment and Plan Assess & Plan/Chief Complaint Shock- mixed- resolved Fungemia -Blood cultures reveal yeast- continue on Merrem and switch to Diflucan, DC Vanc as MRSA negative Perforated abdominal viscus -Hx of colon cancer w/ permanent ileostomy -S/P recent laparoscopy for lysis of adhesion on 02/21/19 -Post-op after repair on 02/24 -Wound Vac in place -NGT in place -May need TPN if no able to advance diet soon Acute respiratory failure- now extubated -with bilat pleural effusions and bibasilar infiltrates -On IV ABX: Meropenem and Diflucan as above - Lasix Paroxysmal Afib RVR HTN - Cardiology consulted, appreciate recs - Currently in sinus - Digoxin ordered - Lopressor and Hydralazine added for HTN Acute renal failure- resolved - Moss Gatherer improved, monitor I/Os - Received Lasix this AM Recent UTI (urinary tract infection) -Abx as above -urine culture from 02/22 shows no growth IDDMII (insulin dependent diabetes mellitus) -Control on sliding scale insulin Lactic acidosis- resolved Critical illness myopathy PT/OT Consider IRU when acute illness improves DVT PPX: Heparin GI ppx: Protonix, Tube Feeds recommendations in- will start when ok with primary- if not consider TPN Diagnosis/Problems Diagnosis/Problems (1) Shock Status: Acute (2) Acute respiratory failure Status: Acute Qualifiers: Respiratory failure complication: unspecified whether with hypoxia or hypercapnia Qualified Codes: J96.00 - Acute respiratory failure, unspecified whether with hypoxia or hypercapnia (3) Fungemia Status: Acute (4) Atrial fibrillation with RVR (5) Perforated abdominal viscus Status: Acute (6) Acute renal failure Status: Acute Qualifiers: Acute renal failure type: unspecified Qualified Codes: N17.9 - Acute kidney failure, unspecified (7) Hypovolemia dehydration Status: Acute (8) Bilateral pleural effusion Status: Acute (9) IDDM (insulin dependent diabetes mellitus) Status: Acute (10) Lactic acidosis Status: Acute (11) UTI (urinary tract infection) Status: Resolved Qualifiers: Urinary tract infection type: acute cystitis Hematuria presence: without hematuria Qualified Codes: N30.00 - Acute cystitis without hematuria Resolution Date/Time: 02/27/19 @ 08:40 Clinical Quality Measures DVT/VTE Risk/Contraindication: Risk Factor Score Per Nursin RFS Level Per Nursing on Admit: 4+=Very High ABIGAIL PORTER MD Mar 02, 2019 09:11
[2019-03-02] MEDS: hydrALAZINE (APESOLINE) 20 MG/ML VIAL IV PRN ×3 (09:36→22:08)
[2019-03-02] MEDS: PANTOPRAZOLE 40 MG (PROTONIX) VIAL IV SCH (09:36)
[2019-03-02] MEDS: morphine INJ 4 MG/ML 1 ML (VIAL/SYRINGE) IVP PRN ×4 (10:39→22:17)
--- NOTE | 2019-03-02 10:45 | Physical Therapy Evaluation ---
PT Evaluation-General Medical Diagnosis Admission Date February 24, 2019 Medical Diagnosis: post op complications/bowel perforation Onset Date: Feb 24, 2019 Therapy Diagnosis Therapy Diagnosis: generalized weakness/debility Height/Weight Height (Feet): 5 Height (Inches): 5.00 Weight (Pounds): 160 Weight (Ounces): 0.0 Precautions Precautions/Isolations: Aspiration, Fall Prevention, Standard Precautions Weight Bear Status Right Lower Extremity: Right Weight Bearing/Tolerated Left Lower Extremity: Left Weight Bearing/Tolerated Referral Physician: Harper Reason for Referral: Evaluation/Treatment Medical History Pertinent Medical History: DM, HTN, Hypothroidism Additional Medical History colon cancer/spinal tumor Current History Ed via family with irregular HR, low BP Reviewed History: Yes Social History Home: Single Level Current Living Status: Children Entry Into Home: Stairs With Railing PT Steps Into Home: 2 Prior Prior Level of Function SCALE: Activities may be completed with or without assistive devices. 2-Elzquyuzvd-tlnmfkm completes the activity by him/herself with no assistance from a helper. 5-Set-up or Clean-up Assistance-helper sets up or cleans up; patient completes activity. [place] assists only prior to or following the activity. 4-Supervision or Touching Assistance-helper provides verbal cues and/or touching/steadying and/or contact guard assistance as patient completes activity. Assistance may be provided throughout the activity or intermittently. 3-Partial/Moderate Assistance-helper does LESS THAN HALF the effort. [place] lifts, holds or supports trunk or limbs, but provides less than half the effort. 2-Substantial/Maximal Assistance-helper does MORE THAN HALF the effort. [place] lifts or holds trunk or limbs and provides more than half the effort. 8-Haliinfjk-zketns does ALL the effort. Patient does none of the effort to complete the activity. Or, the assistance of 2 or more helpers is required for the patient to complete the activity. If activity was not attempted, code reason: 7-Patient Refused. 9-Not Applicable-not attempted and the patient did not perform the activity before the current illness, exacerbation or injury. 10-Not Attempted due to Environmental Limitations-(lack of equipment, weather restraints, etc.). 88-Not Attempted due to Medical Conditions or Safety Concerns. Bed Mobility: 6 Transfers (B,C,W/C): 6 Gait: 6 Stairs: 6 Indoor Mobility (Ambulation): Independent Stairs: Independent Prior Devices Use: None PT Evaluation-Current Subjective Patient just extubated 03/01/19. Agrees to PT. Objective Patient Orientation: Person, Time, Situation, Listless Problem Solving: Poor Attachments: Oxygen, Wing Catheter, IV wound vac ROM/Strength ROM Lower Extremities bilateral limited due to edema Strength Lower Extremities 1/5 grossly bilateral LE Integumentary/Posture Integumentary wound vac abdominal Bladder Incontinence: Wing Cath Neuromuscular (Tone, Coordination, Reflexes) severely diminished with all Sensory Vision: Functional Hearing: Functional Sensation Right Lower Extremit: Impaired Sensation Left Lower Extremity: Impaired Transfers Patient unsafe to perform EOB or OOB activity on this date due to severe weakness Treatment bilateral LE PROM all planes in supine with education with family on performing this PRN Assessment/Needs 73 y.o. female, will benefit from skilled PT to address functional strength and mobility to improve current LOF to safely return to home with daughter at maximum LOF. Rehab Potential: Fair PT Lead Caster Helper Goals Fpc Goals PT Fpc Goals Time Frame: Apr 06, 2019 Sit to Lying (QC): 5 Lying-Sitting on Side/Bed(QC): 5 Sit to Stand (QC): 5 Roll Left to Right (QC): 5 Chair/Joa-od-Szraw Xfer(QC): 5 Does the Patient Walk: Yes Distance: 150' Walk 10 feet (QC): 5 Walk 10ft-Uneven Surface(QC): 5 Walk 50ft with 2 Turns (QC): 5 Walk 150 ft (QC): 5 Gait Assistive Device: FWW PT Plan Problem List Problem List: Activity Tolerance, Functional Strength, Safety, Balance, Gait, Transfer, Bed Mobility, ROM Treatment/Plan Treatment Plan: Continue Plan of Care Treatment Plan: Bed Mobility, Education, Functional Activity José, Functional Strength, Gait, Safety, Therapeutic Exercise, Transfers Treatment Duration: Apr 06, 2019 Frequency: 6 times per week Estimated Hrs Per Day: .5 hour per day Patient and/or Family Agrees t: Yes Safety Risks/Education Patient Education: Issued Written HEP, Disease Process, Safety Issues Teaching Recipient: Patient, Family Teaching Methods: Demonstration, Discussion Response to Teaching: Verbalize Understanding, Return Demonstration Time/GCodes Time In: 943 Time Out: 953 Total Billed Treatment Time: 10 Total Billed Treatment 1 visit EVLowC 10 min CHIDI AMAYA PT Mar 02, 2019 10:45
--- NOTE | 2019-03-02 10:59 | Progress Note - Surgery ---
Subjective Time Seen by a Provider: 10:14 Subjective/Events-last exam Pt seen and examined, wound VAC in place. Pt appears comfortable, states she is having some "pain all over". Nurse states well controlled with meds. Pt tolerating ice chips and sips of water, good output in ostomy. Review of Systems General: Fatigue, Malaise Pulmonary: No Dyspnea, No Cough Cardiovascular: No: Chest Pain Gastrointestinal: No: Nausea, Vomiting Focused Exam Time of Focused Exam: 22:00 Objective Exam Vital Signs Date Time Temp Pulse Resp B/P (MAP) Pulse Ox O2 Delivery O2 Flow Rate FiO2 03/02/19 10:05 100 Room Air 03/02/19 10:00 102 28 182/53 (96) 98 Nasal Cannula 2.00 03/02/19 09:00 116 35 181/48 (92) 98 Nasal Cannula 2.00 03/02/19 08:00 110 29 170/49 (89) 98 Nasal Cannula 2.00 03/02/19 07:55 Room Air 03/02/19 07:40 36.5 Nasal Cannula 2.00 03/02/19 07:00 110 35 161/45 (83) 100 Room Air 03/02/19 07:00 113 03/02/19 06:40 94 Room Air 03/02/19 06:00 112 30 173/50 (91) 97 Room Air 03/02/19 05:00 117 29 152/49 (83) 96 Room Air 03/02/19 04:00 120 29 156/48 (84) 93 Room Air 03/02/19 04:00 Room Air 03/02/19 03:00 113 31 169/48 (88) 98 Room Air 03/02/19 02:00 113 31 180/50 (93) 98 Room Air 03/02/19 01:49 99 Room Air 03/02/19 01:00 120 03/02/19 01:00 120 30 183/50 (94) 97 Room Air 03/02/19 00:00 118 32 172/49 (90) 100 Room Air 03/02/19 00:00 Room Air 03/01/19 23:00 118 32 165/46 (85) 96 Room Air 03/01/19 22:41 95 Room Air 03/01/19 22:00 117 31 219/56 (110) 95 Room Air 03/01/19 21:00 105 25 248/70 (129) 95 Room Air 03/01/19 20:00 118 27 223/62 (115) 100 Room Air 03/01/19 20:00 Nasal Cannula 3.00 03/01/19 19:48 Room Air 03/01/19 19:30 36.3 112 30 232/70 (123) 100 Nasal Cannula 3.00 03/01/19 19:00 129 03/01/19 19:00 129 28 268/64 (131) 100 Nasal Cannula 3.00 03/01/19 18:33 100 Nasal Cannula 2.00 03/01/19 18:00 112 40 174/70 (104) 100 Nasal Cannula 3.00 03/01/19 17:00 122 27 185/76 (112) 98 Nasal Cannula 3.00 03/01/19 16:00 129 37 189/77 (114) 99 Nasal Cannula 3.00 03/01/19 16:00 Mechanical Ventilator 3.00 03/01/19 16:00 36.8 03/01/19 15:00 131 57 193/86 (121) 99 Nasal Cannula 3.00 03/01/19 14:00 129 38 184/78 (113) 98 Nasal Cannula 3.00 03/01/19 13:00 126 32 173/72 (105) 97 Nasal Cannula 3.00 03/01/19 12:54 126 03/01/19 12:00 37.0 03/01/19 12:00 Mechanical Ventilator 3.00 03/01/19 12:00 126 36 174/76 (108) 97 Nasal Cannula 3.00 03/01/19 11:00 111 39 151/60 (90) 98 Nasal Cannula 3.00 I & O 03/02/19 07:00 Intake Total 775 ml Output Total 3375 ml Balance -2600 ml Capillary Refill : Less Than 3 Seconds General Appearance: No Apparent Distress, Chronically ill HEENT: Moist Mucous Membranes, Other Respiratory: No Respiratory Distress, Accessory Muscle Use, Crackles (bases), Decreased Breath Sounds (b/l bases) Cardiovascular: Tachycardia Gastrointestinal: soft, other (Midline incision, VAC in place, ileostomy pink and fxn) Extremity: No Calf Tenderness, Pedal Edema Neurologic/Psychiatric: Alert, Oriented x3 Results Lab Laboratory Tests 03/02/19 03:15: White Blood Count 18.0H, Red Blood Count 3.43L, Hemoglobin 11.0L, Hematocrit 33L , Mean Corpuscular Volume 96, Mean Corpuscular Hemoglobin 32, Mean Corpuscular Hemoglobin Concent 33, Red Cell Distribution Width 13.8, Platelet Count 181, Mean Platelet Volume 9.5, Neutrophils (%) (Auto) 89H, Lymphocytes (%) (Auto) 7L, Monocytes (%) (Auto) 4, Eosinophils (%) (Auto) 0, Basophils (%) (Auto) 1, Neutrophils # (Auto) 16.0H, Lymphocytes # (Auto) 1.3, Monocytes # (Auto) 0.7, Eosinophils # (Auto) 0.0, Basophils # (Auto) 0.1, Neutrophils % (Manual) 80, Lymphocytes % (Manual) 4, Monocytes % (Manual) 6, Band Neutrophils 9, Toxic Granulation 1+, Dohle Bodies SLIGHT, Polychromasia SLIGHT, Poikilocytosis SLIGHT, Sodium Level 147H, Potassium Level 4.3, Chloride Level 115H, Carbon Dioxide Level 19L, Anion Gap 13, Blood Urea Nitrogen 49H, Creatinine 1.05, Estimat Glomerular Filtration Rate 51, BUN/Creatinine Ratio 47, Glucose Level 163H, Calcium Level 8.0L, Phosphorus Level 3.8, Magnesium Level 1.8 Microbiology 02/24/19 Blood Culture - Final, Complete Marilia albicans See Comments 02/25/19 Gram Stain - Final, Complete 02/25/19 Sputum Culture - Final, Complete No growth 02/24/19 Urine Culture - Final, Complete NO GROWTH Assessment/Plan Assessment/Plan Assessment/Plan S/P Ex Lap with SBR x 2 Resp Failure B/L pleural Effusion Bacteremia with Marilia Albicans Tachycardia and HTN Pt looks good today but still weak and using accessory muscles to breath. I ordered easy PAP to try and help clear her lungs, she is also getting IV Lasix. Dr. [place] is considering Cardizem drip to help with tachycardia and HTN. I ordered NGT pulled and will start clear liquids and advance slowly; may add ensure clear to help increase protein intake. Her WBC is up today to 18, unsure why....most likely it is pulmonary in nature. She is on IV diflucan for Marilia, I will also reorder a UA. PT to start working with pt today. Family at bedside and all questions answered to their satisfaction. Clinical Quality Measures DVT/VTE Risk/Contraindication: Risk Factor Score Per Nursin RFS Level Per Nursing on Admit: 4+=Very High MISSY MONTEJO DO Mar 02, 2019 10:59
[2019-03-02] MEDS ORDERED: DILTIAZEM 25 MG/5 ML INJ (CARDIZEM) VIAL ONE (12:44)
[2019-03-02] MEDS ORDERED: DILTIAZEM 25 MG/5 ML INJ (CARDIZEM) VIAL IVP NR (12:45)
[2019-03-02] MEDS: ENOXAPARIN 100 MG/1 ML (LOVENOX) SYR SC SCH (12:51)
[2019-03-02] MEDS: DILTIAZEM IV FOR DRIP 125 MG in NS (IVPB) 100 ML IV SCH ×2 (13:09→21:02)
[2019-03-02] MEDS: RT-FLUTICASONE 220 MCG (FLOVENT) PER PUFF INH SCH ×2 (13:39→19:23)
[2019-03-02 13:52] LABS: BILIRUBIN,URINE NEGATIVE (NEGATIVE); COLOR,URINE YELLOW; GLUCOSE, URINE (UA) NEGATIVE (NEGATIVE); KETONES,URINE NEGATIVE (NEGATIVE); LEUKOCYTE ESTERASE ,URINE NEGATIVE (NEGATIVE); NITRITE,URINE NEGATIVE (NEGATIVE); PH,URINE 5 (5-9); PROTEIN,URINE 1+ (NEGATIVE)
[2019-03-02 14:10] LABS: CLARITY,URINE SL CLOUDY; RBC,URINE TNTC /HPF
[2019-03-02 14:11] LABS: BACTERIA,URINE MODERATE /HPF
[2019-03-02] MEDS: FUROSEMIDE 40 MG/4 ML INJ (LASIX) IVP SCH (16:04)
[2019-03-02 19:30] LABS: ABG OXYGEN SATURATION 93 % (94-100); ABG PCO2 29 MMHG (35-45); ABG PH 7.52 (7.37-7.43); ABG PO2 69 MMHG (79-93); ABG TCO2 24.6 MMOL/L (21.0-31.0); ALLENS TEST ART LINE
[2019-03-02 19:31] LABS: INSPIRED O2 25L/80%; PATIENT TEMP 36.9; VENTILATOR NO
--- NOTE | 2019-03-02 21:18 | Diagnostic Imaging Report ---
INDICATION: Hypoxia. Recent abdominal surgery. Comparison with 4:07 a.m. chest x-ray. There has been improved aeration of the right lung with decreased infiltrate. There continues to be obscuration of the left hemidiaphragm and costophrenic angle which is unchanged. The heart is not enlarged. The upper lungs have cleared with no evidence of pulmonary edema. Right PICC line remains in good position. NG tube has been removed. IMPRESSION: 1. Overall improvement with clearing of pulmonary venous congestion. 2. There has been clearing of right lung base. 3. Persistent opacification of the left hemidiaphragm and costophrenic angle. Dictated by: Dictated on workstation # [id number]
[2019-03-03] VITALS (27 sets, daily range): BP systolic 66–185; BP diastolic 35–85
[2019-03-03] MEDS: inSUlin ASPART (NovoLOG) 1 UNIT/0.01 ML (CHARGE PER UNIT) SQ SCH ×5 (00:20→21:18)
[2019-03-03] MEDS: meTOprolol 5 MG/5 ML (LOPRESSOR) VIAL IV SCH ×4 (01:00→18:14)
[2019-03-03] MEDS: ENOXAPARIN 100 MG/1 ML (LOVENOX) SYR SC SCH ×2 (01:00→12:30)
[2019-03-03] MEDS: RT-IPRATROPIUM (ATROVENT) 0.5MG/2.5ML AMP IH SCH ×6 (01:33→21:25)
[2019-03-03 03:30] LABS: ABG OXYGEN SATURATION 94 % (94-100); ABG PCO2 30 MMHG (35-45); ABG PH 7.53 (7.37-7.43); ABG PO2 68 MMHG (79-93); ABG TCO2 25.8 MMOL/L (21.0-31.0)
[2019-03-03 03:40] LABS: ALLENS TEST ART LINE; INSPIRED O2 50%; PATIENT TEMP 36.2; VENTILATOR YES
[2019-03-03 03:43] LABS: BASOPHILS % (AUTO) 0 % (0-10); EOSINOPHILS % (AUTO) 0 % (0-10); HEMATOCRIT 32 % (35-52); HEMOGLOBIN 10.4 G/DL (11.5-16.0); LYMPHOCYTES % (AUTO) 10 % (12-44); MEAN CORPUSCULAR HEMOGLOBIN 32 PG (25-34); MEAN CORPUSCULAR HGB CONC 33 G/DL (32-36); MEAN CORPUSCULAR VOLUME 98 FL (80-99); MEAN PLATELET VOLUME 9.9 FL (7.4-10.4); MONOCYTES # (AUTO) 0.7 X 10^3 (0.0-1.0); MONOCYTES % (AUTO) 7 % (0-12); NEUTROPHILS # (AUTO) 8.1 X 10^3 (1.8-7.8); NEUTROPHILS % (AUTO) 82 % (42-75); PLATELET COUNT 216 10^3/uL (130-400); RED CELL DISTRIBUTION WIDTH 13.7 % (10.0-14.5); WHITE BLOOD COUNT 9.9 10^3/uL (4.3-11.0)
[2019-03-03] MEDS: MAGNESIUM 1 GM/100 ML IVPB 100 ML IV SCH ×3 (03:44→08:27)
[2019-03-03] MEDS: KCL 20 MEQ TAB (K-DUR) PO SCH (03:44)
[2019-03-03] MEDS: POTASSIUM CL 10MEQ/50ML IVPB 50 ML IV SCH ×3 (03:44→08:27)
[2019-03-03 04:06] LABS: CALCIUM 7.8 MG/DL (8.5-10.1); CREATININE SERUM 1.05 MG/DL (0.60-1.30); MAGNESIUM 1.7 MG/DL (1.6-2.4); PHOSPHORUS 3.6 MG/DL (2.3-4.7); POTASSIUM 3.6 MMOL/L (3.6-5.0)
[2019-03-03] MEDS ORDERED: D5W 1000 ML IV SOLUTION 1,000 ML ONE (05:57)
[2019-03-03] MEDS: FUROSEMIDE 40 MG/4 ML INJ (LASIX) IVP SCH ×2 (06:10→18:14)
[2019-03-03] MEDS ORDERED: D5W 1000 ML IV SOLUTION 1,000 ML IV SCH (06:15)
[2019-03-03] MEDS: morphine INJ 4 MG/ML 1 ML (VIAL/SYRINGE) IVP PRN ×2 (06:30→12:25)
[2019-03-03] MEDS: RT-FLUTICASONE 220 MCG (FLOVENT) PER PUFF INH SCH ×2 (06:53→18:08)
--- NOTE | 2019-03-03 08:13 | Diagnostic Imaging Report ---
CHEST 1 VIEW, AP/PA ONLY Indication: Dyspnea Comparison: 03/02/2019 Findings: Stable right PICC. Stable small bilateral pleural effusions. Basilar pulmonary opacities are unchanged. No pneumothorax. Stable cardiomediastinal silhouette. Impression: 1. Stable small bilateral pleural effusions. 2. Associated basilar pulmonary opacities are similar and may be due to relaxation atelectasis. Alternatively, pneumonia could also give this appearance in the appropriate setting. Dictated by: Dictated on workstation # [id number]
[2019-03-03] MEDS: DIGOXIN 0.25 MG/ML (LANOXIN) 2 ML AMP IV SCH (08:25)
[2019-03-03] MEDS: PANTOPRAZOLE 40 MG (PROTONIX) VIAL IV SCH (08:25)
[2019-03-03] MEDS: FLUCONAZOLE 200 MG/NACL 100 ML (PRE-MIX) IV SCH (08:25)
--- NOTE | 2019-03-03 08:38 | Progress Note - Hospitalist ---
Subjective HPI/CC On Admission Date Seen by Provider: Mar 03, 2019 Time Seen by Provider: 08:31 Subjective/Events-last exam Pt remains extubated but on BiPAP. Shakes head when asked if pain controlled. Focused Exam Time of Focused Exam: 22:00 Objective Exam Vital Signs Vital Signs Date Time Temp Pulse Resp B/P (MAP) Pulse Ox O2 Delivery O2 Flow Rate FiO2 03/03/19 06:48 70 22 100 40.00 03/03/19 06:00 141/41 (74) NIV Bilevel 03/03/19 04:00 50 03/02/19 21:02 36.70986 Capillary Refill : Less Than 3 Seconds General Appearance: Chronically ill, Mild Distress Respiratory: No Respiratory Distress, Decreased Breath Sounds, Other (on BiPAP) Cardiovascular: Regular Rate, Rhythm, No Murmur Gastrointestinal: Abnormal Bowel Sounds (quiet), Distended, Other (wound vac in place) Extremity: Pedal Edema, Other (upper extremity edema) Neurologic/Psychiatric: Alert, Depressed Affect Results/Procedures Lab Laboratory Tests 03/03/19 03:00 Patient resulted labs reviewed. Imaging: Reviewed Imaging Report Assessment/Plan Assessment and Plan Assess & Plan/Chief Complaint Shock- mixed- resolved Fungemia -Blood cultures reveal yeast- Continue Diflucan Merrem finished yesterday- if fevers or leukocytosis will resume Perforated abdominal viscus -Hx of colon cancer w/ permanent ileostomy -S/P recent laparoscopy for lysis of adhesion on 02/21/19 -Post-op after repair on 02/24 -Wound Vac in place -NGT removed, continue CLD Acute respiratory failure- now extubated -with bilat pleural effusions and bibasilar infiltrates - Completed Merrem - Lasix scheduled - On BiPAP Paroxysmal Afib RVR HTN - Cardiology consulted, appreciate recs - Currently in sinus - Digoxin ordered - Lopressor and Hydralazine added for HTN Acute renal failure- resolved Hypernatremia - [place] W[place] stable - Negative ~3L yesterday - D5W Recent UTI (urinary tract infection) -Abx as above -urine culture from 02/22 shows no growth IDDMII (insulin dependent diabetes mellitus) -Control on sliding scale insulin Lactic acidosis- resolved Critical illness myopathy PT/OT Consider IRU when acute illness improves DVT PPX: Lovenox therapeutic dosing for a-fib GI ppx: Protonix, CLD Diagnosis/Problems Diagnosis/Problems (1) Shock Status: Acute (2) Acute respiratory failure Status: Acute Qualifiers: Respiratory failure complication: unspecified whether with hypoxia or hypercapnia Qualified Codes: J96.00 - Acute respiratory failure, unspecified whether with hypoxia or hypercapnia (3) Fungemia Status: Acute (4) Atrial fibrillation with RVR (5) Perforated abdominal viscus Status: Acute (6) Acute renal failure Status: Acute Qualifiers: Acute renal failure type: unspecified Qualified Codes: N17.9 - Acute kidney failure, unspecified (7) Hypovolemia dehydration Status: Acute (8) Bilateral pleural effusion Status: Acute (9) IDDM (insulin dependent diabetes mellitus) Status: Acute (10) Lactic acidosis Status: Acute (11) UTI (urinary tract infection) Status: Resolved Qualifiers: Urinary tract infection type: acute cystitis Hematuria presence: without hematuria Qualified Codes: N30.00 - Acute cystitis without hematuria Resolution Date/Time: 02/27/19 @ 08:40 Clinical Quality Measures DVT/VTE Risk/Contraindication: Risk Factor Score Per Nursin RFS Level Per Nursing on Admit: 4+=Very High ABIGAIL PORTER MD Mar 03, 2019 08:38
--- NOTE | 2019-03-03 08:47 | Progress Note - Surgery ---
Subjective Date Seen by a Provider: Mar 03, 2019 Time Seen by a Provider: 08:42 Subjective/Events-last exam Patient on bipap. Wbc down. Pain controlled. Ostomy output. No family at bedside. On clears. Focused Exam Time of Focused Exam: 22:00 Objective Exam Vital Signs Date Time Temp Pulse Resp B/P (MAP) Pulse Ox O2 Delivery O2 Flow Rate FiO2 03/03/19 07:00 72 03/03/19 06:48 70 22 100 40.00 03/03/19 06:00 81 24 141/41 (74) 100 NIV Bilevel 50.00 03/03/19 05:00 80 15 161/38 (79) 100 NIV Bilevel 50.00 03/03/19 04:00 96 23 173/41 (85) 98 NIV Bilevel 50.00 03/03/19 04:00 100 NIV Bilevel 50 03/03/19 03:00 75 14 173/38 (83) 100 NIV Bilevel 50.00 03/03/19 02:00 75 14 182/40 (87) 99 NIV Bilevel 50.00 03/03/19 01:34 82 22 99 40.00 03/03/19 01:00 86 03/03/19 01:00 86 18 183/41 (88) 100 NIV Bilevel 50.00 03/03/19 00:00 100 NIV Bilevel 50 03/03/19 00:00 84 18 179/41 (87) 100 NIV Bilevel 50.00 03/02/19 23:00 81 18 167/37 (80) 99 NIV Bilevel 50.00 03/02/19 22:00 87 23 203/49 (100) 100 NIV Bilevel 50.00 03/02/19 21:11 NIV Bilevel 50.00 03/02/19 21:05 80 22 100 50.00 03/02/19 21:02 36.17655 77 20 164/45 100 25.00 03/02/19 21:00 87 25 203/50 (100) 100 NIV Bilevel 60.00 03/02/19 20:48 NIV Bilevel 60.00 03/02/19 20:00 100 NIV Bilevel 70 03/02/19 20:00 77 20 164/45 (84) 100 NIV Bilevel 70.00 03/02/19 19:50 NIV Bilevel 70.00 03/02/19 19:46 80 22 100 70.00 03/02/19 19:40 NIV Bilevel 80.00 03/02/19 19:31 36.9 93 32 199/51 (100) 95 Vapotherm 25.00 80.00 03/02/19 19:23 92 Vapotherm 25.00 80 03/02/19 19:00 92 03/02/19 19:00 92 23 174/44 (87) 94 Nasal Cannula 2.00 03/02/19 18:19 92 Vapotherm 25.00 80 03/02/19 18:00 88 23 166/42 (83) 65 Nasal Cannula 2.00 03/02/19 17:00 102 32 167/38 (81) Nasal Cannula 2.00 03/02/19 16:00 103 33 195/45 (95) 94 Nasal Cannula 2.00 03/02/19 16:00 Room Air 03/02/19 15:00 104 36 177/42 (87) 98 Nasal Cannula 2.00 03/02/19 14:00 114 34 216/50 (105) 89 Nasal Cannula 2.00 03/02/19 13:40 100 Room Air 03/02/19 13:09 213/51 03/02/19 13:00 107 03/02/19 13:00 104 30 161/44 (83) 97 Nasal Cannula 2.00 03/02/19 12:55 Room Air 03/02/19 12:00 36.2 03/02/19 12:00 112 30 212/48 (102) 97 Nasal Cannula 2.00 03/02/19 11:00 121 31 181/43 (89) 97 Nasal Cannula 2.00 03/02/19 10:05 100 Room Air 03/02/19 10:00 102 28 182/53 (96) 98 Nasal Cannula 2.00 03/02/19 09:00 116 35 181/48 (92) 98 Nasal Cannula 2.00 I & O 03/03/19 07:00 Intake Total 360 ml Output Total 3475 ml Balance -3115 ml Capillary Refill : Less Than 3 Seconds General Appearance: Chronically ill, Mild Distress HEENT: PERRL/EOMI, Moist Mucous Membranes, Other Neck: Supple Respiratory: Chest Non Tender, No Accessory Muscle Use, Other (on BiPAP) Cardiovascular: Regular Rate, Rhythm Gastrointestinal: soft, other (Midline incision, VAC in place, ileostomy pink and with output) Extremity: Pedal Edema, Other (upper extremity edema) Neurologic/Psychiatric: Alert Skin: Warm/Dry Lymphatic: No Adenopathy Results Lab Laboratory Tests 03/02/19 12:50: Urine Color YELLOW, Urine Clarity SL CLOUDY, Urine pH 5, Urine Specific Morrill 1.015L, Urine Protein 1+H, Urine Glucose (UA) NEGATIVE, Urine Ketones NEGATIVE, Urine Nitrite NEGATIVE, Urine Bilirubin NEGATIVE, Urine Urobilinogen NORMAL, Urine Leukocyte Esterase NEGATIVE, Urine RBC (Auto) 5+H, Urine RBC TNTCH, Urine WBC 2-5, Urine Crystals NONE, Urine Bacteria MODERATEH, Urine Casts NONE, Urine Mucus NEGATIVE, Urine Culture Indicated NO 03/02/19 19:30: Blood Gas Puncture Site L RAD, Blood Gas Patient Temperature 36.9, Arterial Blood pH 7.52H, Arterial Blood Partial Pressure CO2 29L, Arterial Blood Partial Pressure O2 69L, Arterial Blood HCO3 24, Arterial Blood Total CO2 24.6, Arterial Blood Oxygen Saturation 93L, Arterial Blood Base Excess 1.0, Kenny Test ART LINE, Blood Gas Ventilator Setting NO, Blood Gas Inspired Oxygen 25L/80% 03/03/19 03:00: White Blood Count 9.9, Red Blood Count 3.24L, Hemoglobin 10.4L, Hematocrit 32L, Mean Corpuscular Volume 98, Mean Corpuscular Hemoglobin 32, Mean Corpuscular Hemoglobin Concent 33, Red Cell Distribution Width 13.7, Platelet Count 216, Mean Platelet Volume 9.9, Neutrophils (%) (Auto) 82H, Lymphocytes (%) (Auto) 10L , Monocytes (%) (Auto) 7, Eosinophils (%) (Auto) 0, Basophils (%) (Auto) 0, Neutrophils # (Auto) 8.1H, Lymphocytes # (Auto) 1.0, Monocytes # (Auto) 0.7, Eosinophils # (Auto) 0.0, Basophils # (Auto) 0.0, Sodium Level 151H, Potassium Level 3.6, Chloride Level 115H, Carbon Dioxide Level 23, Anion Gap 13, Blood Urea Nitrogen 50H, Creatinine 1.05, Estimat Glomerular Filtration Rate 51, BUN/Creatinine Ratio 48, Glucose Level 150H, Calcium Level 7.8L, Phosphorus Level 3.6, Magnesium Level 1.7 03/03/19 03:25: Blood Gas Puncture Site LT ARTLINE, Blood Gas Patient Temperature 36.2, Arterial Blood pH 7.53H, Arterial Blood Partial Pressure CO2 30L, Arterial Blood Partial Pressure O2 68L, Arterial Blood HCO3 25, Arterial Blood Total CO2 25.8, Arterial Blood Oxygen Saturation 94, Arterial Blood Base Excess 2.0, Kenny Test ART LINE, Blood Gas Ventilator Setting YES, Blood Gas Inspired Oxygen 50% 03/03/19 06:10: Digoxin Level 1.08 Microbiology 02/24/19 Blood Culture - Final, Complete Marilia albicans See Comments 02/25/19 Gram Stain - Final, Complete 02/25/19 Sputum Culture - Final, Complete No growth 02/24/19 Urine Culture - Final, Complete NO GROWTH Assessment/Plan Assessment/Plan Assessment/Plan S/P Ex Lap with SBR x 2 secondary to enterotomies and fecal contamination Resp Failure B/L pleural Effusion Bacteremia with Marilia Albicans Tachycardia and HTN Patient on bipap and clear liquid diet. Continue aggressive pulmonary management. Continue on clears today WBC down follow labs Wing for accurate i/o Clinical Quality Measures DVT/VTE Risk/Contraindication: Risk Factor Score Per Nursin RFS Level Per Nursing on Admit: 4+=Very High RASHEED RAMSEY DO Mar 03, 2019 08:47
--- NOTE | 2019-03-03 09:00 | Cardiology Progress Note ---
Subjective Date Seen by Provider: Mar 03, 2019 Time Seen by Provider: 08:49 Subjective/Events-last exam Patient is laying down in bed. Having generalized fatigue. No chest pain Review of Systems General: No Chills, No Night Sweats; Fatigue, Malaise; No Appetite, No Other HEENT: No Head Aches, No Visual Changes, No Eye Pain, No Ear Pain, No Dysphasia, No Sinus Congestion, No Post Nasal Drip, No Sore Throat, No Other Pulmonary: Dyspnea; No Cough, No Pleuritic Chest Pain, No Other Cardiovascular: Edema; No: Chest Pain, Palpitations, Orthopnea, Paroxysmal Noc. Dyspnea, Lt Headedness, Other Focused Exam Time of Focused Exam: 22:00 Objective-Cardiology Exam Last Set of Vital Signs Vital Signs 03/02/19 03/03/19 03/03/19 03/03/19 03/03/19 21:02 04:00 06:00 06:48 07:00 Temp 36.87053 Pulse 72 Resp 22 B/P (MAP) 141/41 (74) Pulse Ox 100 O2 Delivery NIV Bilevel O2 Flow Rate 40.00 FiO2 50 Capillary Refill : Less Than 3 Seconds I&O Intake and Output 03/03/19 00:00 Intake Total 610 ml Output Total 3625 ml Balance -3015 ml Intake Oral 170 ml IV Total 440 ml Output Urine Total 3575 ml Stool Total 50 ml General: Alert, Oriented X3, Cooperative, Mild Distress HEENT: Atraumatic Neck: Supple, No Thyromegaly Lungs: Clear to Auscultation, Normal Air Movement Heart: Normal S1, Normal S2, No Murmurs, Other (Atrial fibrillation) Abdomen: No Masses, Other (Diminished bowel sounds) Extremities: No Clubbing, No Cyanosis, No Edema, Normal Pulses, No Tenderness/Swelling Skin: No Rashes Neuro: Normal Speech Psych/Mental Status: Mental Status NL Results Lab Laboratory Tests 03/03/19 03:00 A/P-Cardiology Admission Diagnosis Acute respiratory failure Paroxysmal atrial fibrillation Coronary artery disease Hypertension Assessment/Plan Status post respiratory failure, extubated at this time and doing better. Fungemia, sepsis, receiving antibiotics, I will repeat 2-D echocardiogram. I am hesitant to do STANFORD due to the recent abdominal surgery. Paroxysmal atrial fibrillation, has been in and out of atrial fibrillation, back in A. fib with RVR, we will use boluses of Lopressor and verapamil IV and monitor tolerance and response Labile hypertension, ranging between low and high blood pressure, continue to adjust medication accordingly and monitor closely. I will remove arterial line Coronary artery disease, history of cardiac catheterization in July 2012 showing 50 percent midright coronary artery stenosis, nonobstructive disease, had a borderline disease in the midright coronary artery. Most recent cardiac catheterization done April 2018 revealed mild ectasia in the proximal LAD with mild disease in the mid LAD, small vessel disease distally, mild ectasia in the proximal circumflex artery and 40-50 percent stenosis in the mid right coronary artery, nonobstructive disease History of colon cancer, history of colon resection and colostomy in the remote past has been in remission and followed by Dr. Branham History of hyperlipidemia Carotid artery , continue to monitor carotid Syncope, had a syncopal episode in October 2015 probably due to dehydration. Was in renal failure. Improved. Thyroid nodules noted on ultrasound, followed by Dr. Branham and Dr. Simmons Diabetes mellitus, followed and managed by primary care physician. History of colon cancer, history of colostomy. Currently in remission. Followed by Dr. Branham Family history of coronary artery disease. Obstructive sleep apnea, intolerance to CPAP History of appendectomy, kidney stones, hysterectomy. Breast biopsy. Clinical Quality Measures DVT/VTE Risk/Contraindication: Risk Factor Score Per Nursin RFS Level Per Nursing on Admit: 4+=Very High NAYA URIAS MD Mar 03, 2019 09:00
[2019-03-03] MEDS: DILTIAZEM IV FOR DRIP 125 MG in NS (IVPB) 100 ML IV SCH (18:05)
[2019-03-04] VITALS (25 sets, daily range): BP systolic 133–179; BP diastolic 53–69
[2019-03-04] MEDS: ENOXAPARIN 100 MG/1 ML (LOVENOX) SYR SC SCH ×2 (00:18→11:40)
[2019-03-04] MEDS: meTOprolol 5 MG/5 ML (LOPRESSOR) VIAL IV SCH ×4 (00:18→17:25)
[2019-03-04] MEDS: morphine INJ 4 MG/ML 1 ML (VIAL/SYRINGE) IVP PRN ×5 (00:58→20:25)
[2019-03-04] MEDS: RT-IPRATROPIUM (ATROVENT) 0.5MG/2.5ML AMP IH SCH ×6 (01:31→22:10)
[2019-03-04 03:05] LABS: BASOPHILS % (AUTO) 0 % (0-10); EOSINOPHILS # (AUTO) 0.1 10^3/uL (0.0-0.3); EOSINOPHILS % (AUTO) 1 % (0-10); HEMATOCRIT 32 % (35-52); HEMOGLOBIN 10.3 G/DL (11.5-16.0); LYMPHOCYTES # (AUTO) 0.9 X 10^3 (1.0-4.0); LYMPHOCYTES % (AUTO) 10 % (12-44); MEAN CORPUSCULAR HEMOGLOBIN 32 PG (25-34); MEAN CORPUSCULAR HGB CONC 32 G/DL (32-36); MEAN CORPUSCULAR VOLUME 99 FL (80-99); MEAN PLATELET VOLUME 9.6 FL (7.4-10.4); MONOCYTES # (AUTO) 0.7 X 10^3 (0.0-1.0); MONOCYTES % (AUTO) 8 % (0-12); NEUTROPHILS % (AUTO) 81 % (42-75); PLATELET COUNT 238 10^3/uL (130-400); RED CELL DISTRIBUTION WIDTH 14.3 % (10.0-14.5); WHITE BLOOD COUNT 8.7 10^3/uL (4.3-11.0)
[2019-03-04 03:15] LABS: ABG BASE EXCESS 5.8 MMOL/L (-2.5-2.5); ABG OXYGEN SATURATION 92 % (94-100); ABG PCO2 34 MMHG (35-45); ABG PH 7.54 (7.37-7.43); ABG PO2 64 MMHG (79-93); ABG TCO2 29.9 MMOL/L (21.0-31.0)
[2019-03-04 03:18] LABS: ALLENS TEST YES-POS; INSPIRED O2 30; PATIENT TEMP 36.3; VENTILATOR NO
[2019-03-04 03:30] LABS: CALCIUM 7.7 MG/DL (8.5-10.1); CREATININE SERUM 1.02 MG/DL (0.60-1.30); MAGNESIUM 1.7 MG/DL (1.6-2.4); PHOSPHORUS 3.6 MG/DL (2.3-4.7); POTASSIUM 3.5 MMOL/L (3.6-5.0)
[2019-03-04] MEDS: POTASSIUM CL 10MEQ/50ML IVPB 50 ML IV SCH ×3 (04:25→06:45)
[2019-03-04] MEDS: KCL 20 MEQ TAB (K-DUR) PO SCH (04:26)
[2019-03-04] MEDS: MAGNESIUM 1 GM/100 ML IVPB 100 ML IV SCH (04:26)
--- NOTE | 2019-03-04 05:19 | Pulmonary Consultation ---
History of Present Illness History of Present Illness Date of Consultation 03/04/19 05:19 Time Seen by Provider: 09:37 Date of Admission Reason for Visit: Atrial fibrillation History of Present Illness 73yo s/p recent lysis of adhesions per Dr. Tom 02/21 admitted on 02/24 secondary to irregular HR, MS changes, hypotension, and worsening SOB, and 8/10 abdominal pain. Denies fever, N/V, or diarrhea. PT is now s/p repair per Dr. Willett on day of admission. I am consulted for ICU management. Allergies and Home Medications Allergies Coded Allergies: levofloxacin (Verified Adverse Reaction, Mild, RASH, 07/06/12) amoxicillin (Unverified Adverse Reaction, Unknown, 05/28/14) YEAST INFECTION latex (Unverified Adverse Reaction, Unknown, 04/18/18) Home Medications Allopurinol 300 Mg Tablet, 300 MG PO DAILY, (Reported) Amlodipine Besylate 5 Mg Tablet, 5 MG PO DAILY, (Reported) Aspirin 81 Mg Tab.chew, 81 MG PO DAILY, (Reported) Bisoprolol Fumarate 5 Mg Tablet, 5 MG PO DAILY, (Reported) Cephalexin 500 Mg Capsule, 500 MG PO TID Prescribed by: JUAN CARLOS RUBALCAVA on 02/22/19 1758 Hydrocodone/Acetaminophen 1 Each Tablet, 1-2 TAB PO Q6H Prescribed by: CLARA FAUSTIN on 02/21/19 0830 Insulin Aspart 300 Units/3 Ml Solution, 10 UNITS SQ 0800,1200, (Reported) Insulin Aspart 300 Units/3 Ml Solution, 15 UNITS SQ 1800, (Reported) Insulin Glargine,Hum.rec.anlog 100 Unit/1 Ml Vial, 50 UNIT SQ HS, (Reported) Losartan Potassium 100 Mg Tablet, 100 MG PO DAILY, (Reported) Lovastatin 20 Mg Tablet, 20 MG PO HS, (Reported) Multivitamin 1 Each Tablet, 1 EACH PO DAILY, (Reported) [place] 3 Polyunsat Fatty Acids 1,000 Mg Cap, 1,000 MG PO DAILY, (Reported) Ondansetron 8 Mg Tab.rapdis, 8 MG PO Q6H PRN for NAUSEA/VOMITING Prescribed by: CARTER THOMPSON on 02/22/19 2237 Vitamin E Acetate 400 Unit Capsule, 400 UNIT PO DAILY, (Reported) Past Botbsef-Zedjuz-Pejzig Hx Past Med/Social Hx: Reviewed Nursing Past Med/Soc Hx Patient Social History Alcohol Use: Denies Use Recreational Drug Use: No Smoking Status: Never a Smoker 2nd Hand Smoke Exposure: No Recent Foreign Travel: No Contact w/Someone Who Travel: No Recent Infectious Disease Expo: No Recent Hopitalizations: Yes Physical Abuse: No Sexual Abuse: No Mistreated: No Fear: No Immunizations Up To Date Tetanus Booster (TDap): Unknown PED Vaccines UTD: Yes Date of Pneumonia Vaccine: Jan 06, 2015 Date of Influenza Vaccine: Feb 20, 2018 Seasonal Allergies Seasonal Allergies: No Past Medical History Surgeries: Yes (LITHOTRIPSY; MULTIPLE SURGERIES FOR ADHESIONS; PARTIAL COLECTOMY THEN COMPLETE COLECTOMY WITH PERMANENT ILEOSTOMY AROUND FOR COLON CANCER; CARDIAC CATHS--LAST ONE 04/18/18--NO INTERVENTION; BILATERAL CATARACT SURGERY; HYST/BSO; BREAST BIOPSY 06/2013; PORT PLACEMENT/REMOVAL) Abdominal, Appendectomy, Breast, Cardiac, Eye Surgery, Hysterectomy, Oophorectomy, Renal Respiratory: Yes (PUNCTURED LUNG FROM PORT PLACEMENT) Sleep Apnea Currently Using CPAP: No Currently Using BIPAP: No Cardiac: Yes (CARDIAC CATH 04/18/18--MILD DISEASE, NO INTERVENTION; MILD CAROTID DISEASE--NO INTERVENTION) High Cholesterol, Hypertension Neurological: Yes Headaches /Migraines, Neuropathy 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, 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 Sexually Transmitted Disease: No HIV/AIDS: No Genitourinary: Yes (LITHOTRIPSY) Kidney Stones Gastrointestinal: Yes (COLECTOMY WITH PERMANENT ILEOSTOMY FOR COLON CANCER AROUND 2000) Gastroesophageal Reflux, Obstructive Bowel Musculoskeletal: Yes (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) Chronic Back Pain, Gout Endocrine: Yes Diabetes, Insulin dep, Hypothyroidsim HEENT: Yes (CATARACT SURGERY BILATERALLY) Cataract Cancer: Yes (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; COLON CANCER AROUND --S/P SURGERY ADN CHEMO) Colon Did You Recieve Any Treatments: Yes What Type of Treatment Did You: Chemotherapy, Surgical Intervention Psychosocial: No Integumentary: No Blood Disorders: No Adverse Reaction/Blood Tranf: No Family Medical History Cancer 03 FATHER, , Onset:60 years & older 03 MOTHER, , Onset:60 years & older 09 BROTHER, , Onset:60 years & older 09 BROTHER, , Onset:60 years & older 09 BROTHER, Onset:60 years & older 09 SISTER, , Onset:60 years & older Cancer of colon 09 BROTHER, , Onset:60 years & older Dementia 09 SISTER, Onset:60 years & older Family history: Diabetes mellitus 09 SISTER, , Onset:60 years & older Heart disease 03 FATHER, , Onset:60 years & older 09 SISTER, , Onset:60 years & older History of - respiratory disease 09 BROTHER, Onset:60 years & older Prostate cancer 09 BROTHER, Onset:60 years & older Stroke 03 MOTHER, , Onset:50's - 60 Heart Disease, Cancer, CVA Review of Systems Time Seen by Provider: 09:42 Constitutional: Sweats, Weakness, Malaise; No: Fever, Chills, Other Eyes: No: Pain, Vision change, Conjunctivae inflammation, Eyelid inflammation, Other, Redness ENT: Nose congestion Respiratory: Cough, Shortness of breath, SOB with excertion; No: Wheezing, Hemoptysis Gastrointestinal: Abdominal Pain, Constipation; No: Nausea, Vomiting, Diarrhea Sepsis Event Evaluation Height, Weight, BMI Height: 5'5.00" Weight: 160lbs. 0.0oz. 72.715278cy; 21.79 BMI Method:Stated Exam Exam Vital Signs Date Time Temp Pulse Resp B/P (MAP) Pulse Ox O2 Delivery O2 Flow Rate FiO2 03/04/19 04:00 98 Vapotherm 25 03/04/19 04:00 36.3 03/04/19 03:35 Vapotherm 25.00 35.00 03/04/19 02:00 81 15 150/58 (88) 97 NIV Bilevel 30.00 03/04/19 01:31 84 24 95 30.00 03/04/19 01:00 88 24 160/59 (92) 96 NIV Bilevel 30.00 03/04/19 00:56 86 03/04/19 00:00 35.8 03/04/19 00:00 98 22 176/65 (102) 96 NIV Bilevel 30.00 03/04/19 00:00 NIV Bilevel 30 03/03/19 23:00 89 18 164/57 (92) 97 NIV Bilevel 30.00 03/03/19 22:00 86 21 167/59 (95) 96 NIV Bilevel 30.00 03/03/19 21:29 NIV Bilevel 30.00 03/03/19 21:25 95 24 94 30.00 03/03/19 21:00 92 23 166/60 (95) 91 Vapotherm 25.00 35.00 03/03/19 20:00 98 Vapotherm 25 03/03/19 20:00 85 23 165/55 (91) 96 Vapotherm 25.00 35.00 03/03/19 20:00 36.6 03/03/19 19:00 72 03/03/19 19:00 72 18 133/52 (79) 96 Vapotherm 25.00 35.00 03/03/19 18:08 96 Vapotherm 25.00 35 03/03/19 18:05 92 03/03/19 18:00 103 28 164/59 (94) 93 NIV Bilevel 50.00 03/03/19 17:00 96 28 155/85 (108) 94 NIV Bilevel 50.00 03/03/19 16:00 82 18 151/51 (84) 94 NIV Bilevel 50.00 03/03/19 16:00 36.5 03/03/19 16:00 98 Vapotherm 25 03/03/19 15:00 85 23 155/57 (89) 95 NIV Bilevel 50.00 03/03/19 14:08 97 Vapotherm 25.00 35 03/03/19 14:00 66 14 138/35 (69) 97 NIV Bilevel 50.00 03/03/19 13:00 68 03/03/19 13:00 67 15 138/35 (69) 97 NIV Bilevel 50.00 03/03/19 12:00 94 19 66/45 (52) 96 NIV Bilevel 50.00 03/03/19 12:00 98 Vapotherm 25 03/03/19 11:00 86 17 134/44 (74) 97 NIV Bilevel 50.00 03/03/19 10:06 96 Vapotherm 25.00 35 03/03/19 10:00 87 24 110/44 (66) 97 NIV Bilevel 50.00 03/03/19 09:00 88 22 168/43 (84) 97 NIV Bilevel 50.00 03/03/19 08:00 76 13 178/41 (86) 98 NIV Bilevel 50.00 03/03/19 08:00 100 NIV Bilevel 50 03/03/19 07:00 72 03/03/19 07:00 75 16 168/40 (82) 98 NIV Bilevel 50.00 03/03/19 06:48 70 22 100 40.00 03/03/19 06:00 81 24 141/41 (74) 100 NIV Bilevel 50.00 I & O 03/04/19 07:00 Intake Total 1400 ml Output Total 3050 ml Balance -1650 ml Height & Weight Height: 5'5.00" Weight: 160lbs. 0.0oz. 72.200342iu; 21.79 BMI Method:Stated General Appearance: Chronically ill, Mild Distress HEENT: PERRL/EOMI, Moist Mucous Membranes, Other Neck: Supple Respiratory: Chest Non Tender, No Accessory Muscle Use, Other (on BiPAP) Cardiovascular: Regular Rate, Rhythm Capillary Refill: Less Than 3 Seconds Gastrointestinal: soft, other (Midline incision, VAC in place, ileostomy pink and with output) Extremity: Pedal Edema, Other (upper extremity edema) Neurologic/Psychiatric: Alert Skin: Warm/Dry Lymphatic: No Adenopathy Results Lab Laboratory Tests 03/03/19 03:00 03/04/19 02:55 Assessment/Plan Assessment/Plan Acute respiratory failure with hypoxia -currently on BiPAP Fungemia -Possible STANFORD pending -Echo shows diastolic dysfunction -Diflucan Acute renal failure -Monitor close peforated abdominal viscus s/p surgical repair -CXR shows extensive persistent abdominal distention -Will defer to Dr. Willett. -RN reports liquid dark green stool from colostomy Hypernatremia -Secondary to dehydration -Start IVF DM II Debility -PT/OT protein jorge malnutrition -Pt is on CLD and ensure TID JAZMYNE THOMPSON DO Mar 04, 2019 05:19 POS
[2019-03-04] MEDS: inSUlin ASPART (NovoLOG) 1 UNIT/0.01 ML (CHARGE PER UNIT) SQ SCH ×4 (06:11→21:37)
[2019-03-04] MEDS: FUROSEMIDE 40 MG/4 ML INJ (LASIX) IVP SCH ×2 (06:45→17:25)
[2019-03-04] MEDS: RT-FLUTICASONE 220 MCG (FLOVENT) PER PUFF INH SCH (06:48)
--- NOTE | 2019-03-04 07:25 | Diagnostic Imaging Report ---
PATIENT HISTORY: Dyspnea. TECHNIQUE: Single frontal view of the chest. COMPARISON: 03/03/2019 FINDINGS: Lung volumes are mildly low. Bibasilar airspace opacities are seen. There is a small left pleural effusion. Overall aeration appears similar to the prior exam. The right PICC line tip projects over the cavoatrial junction. The cardiac silhouette is normal in size. The right subdiaphragmatic lucency may represent free air. IMPRESSION: 1. Low lung volumes with stable bibasilar airspace opacities, may represent atelectasis or infiltrate. 2. Small left pleural effusion appears stable. 3. Pneumoperitoneum, as seen on the CT from 02/24/2019. If needed, this could be better evaluated and compared to the previous exam with a CT. Dictated by: Dictated on workstation # [id number]
[2019-03-04] MEDS: FLUCONAZOLE 200 MG/NACL 100 ML (PRE-MIX) IV SCH (07:44)
[2019-03-04] MEDS: PANTOPRAZOLE 40 MG (PROTONIX) VIAL IV SCH (07:44)
[2019-03-04] MEDS: DIGOXIN 0.25 MG/ML (LANOXIN) 2 ML AMP IV SCH (07:44)
--- NOTE | 2019-03-04 08:33 | Cardiology Progress Note ---
Subjective Date Seen by Provider: Mar 04, 2019 Time Seen by Provider: 08:29 Subjective/Events-last exam Patient is laying down in bed, complaining of back pain. No chest pain. Heart rate is better controlled Review of Systems General: No Chills, No Night Sweats; Fatigue, Malaise; No Appetite, No Other HEENT: No Head Aches, No Visual Changes, No Eye Pain, No Ear Pain, No Dysphasia, No Sinus Congestion, No Post Nasal Drip, No Sore Throat, No Other Pulmonary: No Dyspnea, No Cough, No Pleuritic Chest Pain, No Other Cardiovascular: No: Chest Pain, Palpitations, Orthopnea, Paroxysmal Noc. Dyspnea, Edema, Lt Headedness, Other Focused Exam Time of Focused Exam: 22:00 Objective-Cardiology Exam Last Set of Vital Signs Vital Signs 03/04/19 03/04/19 03/04/19 03/04/19 04:00 06:00 06:56 07:00 Temp 36.3 Pulse 85 Resp 21 B/P (MAP) 171/62 (98) Pulse Ox 92 O2 Delivery Nasal Cannula O2 Flow Rate 3.00 Capillary Refill : Less Than 3 Seconds I&O Intake and Output 03/04/19 00:00 Intake Total 1350 ml Output Total 3250 ml Balance -1900 ml Intake Oral 425 ml IV Total 925 ml Output Urine Total 3250 ml General: Alert, Oriented X3, Cooperative, No Acute Distress HEENT: Atraumatic Neck: Supple, No Thyromegaly Lungs: Clear to Auscultation, Normal Air Movement Heart: Normal S1, Normal S2, No Murmurs, Other (Atrial fibrillation) Abdomen: No Masses, Other (Diminished bowel sounds) Extremities: No Clubbing, No Cyanosis, No Edema, Normal Pulses, No Ten derness/Swelling Skin: No Rashes Neuro: Normal Speech Psych/Mental Status: Mental Status NL Results Lab Laboratory Tests 03/04/19 02:55 A/P-Cardiology Admission Diagnosis Acute respiratory failure Paroxysmal atrial fibrillation Coronary artery disease Hypertension Assessment/Plan Status post respiratory failure, improved, breathing better. Fungemia, sepsis, receiving antibiotics, I will repeat 2-D echocardiogram. I am hesitant to do [place] due to the recent abdominal surgery. Paroxysmal atrial fibrillation, back to sinus rhythm. Continue to monitor heart rate closely, discontinue digoxin at this point Labile hypertension, I will start clonidine patch, continue on IV Lopressor and hydralazine and monitor tolerance and response Coronary artery disease, history of cardiac catheterization in July 2012 showing 50 percent midright coronary artery stenosis, nonobstructive disease, had a borderline disease in the midright coronary artery. Most recent cardiac catheterization done April 2018 revealed mild ectasia in the proximal LAD with mild disease in the mid LAD, small vessel disease distally, mild ectasia in the proximal circumflex artery and 40-50 percent stenosis in the mid right coronary artery, nonobstructive disease History of colon cancer, history of colon resection and colostomy in the remote past has been in remission and followed by Dr. Branham History of hyperlipidemia Carotid artery , continue to monitor Syncope, had a syncopal episode in October 2015 probably due to dehydration. Was in renal failure. Improved. Thyroid nodules noted on ultrasound, followed by Dr. Branham and Dr. Simmons Diabetes mellitus, followed and managed by primary care physician. History of colon cancer, history of colostomy. Currently in remission. Followed by Dr. Branham Family history of coronary artery disease. Obstructive sleep apnea, intolerance to CPAP History of appendectomy, kidney stones, hysterectomy. Breast biopsy. Clinical Quality Measures DVT/VTE Risk/Contraindication: Risk Factor Score Per Nursin RFS Level Per Nursing on Admit: 4+=Very High NAYA URIAS MD Mar 04, 2019 08:33
[2019-03-04] MEDS ORDERED: cloNIDine 0.1 MG PATCH (CATAPRES TTS) TDSY TD SCH (09:00)
--- NOTE | 2019-03-04 09:46 | Progress Note - Surgery ---
GILA HAYWOOD,MED STUDENT 03/04/19 0946: Subjective Date Seen by a Provider: Mar 04, 2019 Time Seen by a Provider: 07:25 Subjective/Events-last exam Patient seen and examined. She is awake and able to communicate. She says her back hurts and thinks it is due to lying in bed for an extended period. Work of breathing appears improved, off bipap at the time of this exam. Able to tolerate soft foods and water. Urine output and color are improving, it is now clear and pale yellow and she is currently producing approximately 35ml/hour. Focused Exam Time of Focused Exam: 22:00 Objective Exam Vital Signs Date Time Temp Pulse Resp B/P (MAP) Pulse Ox O2 Delivery O2 Flow Rate FiO2 03/04/19 09:00 86 19 154/57 (89) 96 Nasal Cannula 3.00 03/04/19 08:00 86 25 158/58 (91) 94 Nasal Cannula 3.00 03/04/19 08:00 94 Nasal Cannula 5.00 03/04/19 07:00 85 03/04/19 07:00 93 26 169/62 (97) 92 Nasal Cannula 3.00 03/04/19 06:56 92 Nasal Cannula 3.00 03/04/19 06:48 95 Nasal Cannula 5.00 03/04/19 06:00 92 21 171/62 (98) 96 Nasal Cannula 5.00 03/04/19 05:36 Nasal Cannula 5.00 03/04/19 05:00 81 15 141/53 (82) 97 Vapotherm 25.00 35.00 03/04/19 04:00 98 Vapotherm 25 03/04/19 04:00 89 21 177/59 (98) 97 Vapotherm 25.00 35.00 03/04/19 04:00 36.3 03/04/19 03:35 Vapotherm 25.00 35.00 03/04/19 03:00 89 21 177/59 (98) 97 NIV Bilevel 30.00 03/04/19 02:00 81 15 150/58 (88) 97 NIV Bilevel 30.00 03/04/19 01:31 84 24 95 30.00 03/04/19 01:00 88 24 160/59 (92) 96 NIV Bilevel 30.00 03/04/19 00:56 86 10/28/19 00:00 35.8 03/04/19 00:00 98 22 176/65 (102) 96 NIV Bilevel 30.00 03/04/19 00:00 NIV Bilevel 30 03/03/19 23:00 89 18 164/57 (92) 97 NIV Bilevel 30.00 03/03/19 22:00 86 21 167/59 (95) 96 NIV Bilevel 30.00 03/03/19 21:29 NIV Bilevel 30.00 03/03/19 21:25 95 24 94 30.00 03/03/19 21:00 92 23 166/60 (95) 91 Vapotherm 25.00 35.00 03/03/19 20:00 98 Vapotherm 25 03/03/19 20:00 85 23 165/55 (91) 96 Vapotherm 25.00 35.00 03/03/19 20:00 36.6 03/03/19 19:00 72 03/03/19 19:00 72 18 133/52 (79) 96 Vapotherm 25.00 35.00 03/03/19 18:08 96 Vapotherm 25.00 35 03/03/19 18:05 92 03/03/19 18:00 103 28 164/59 (94) 93 NIV Bilevel 50.00 03/03/19 17:00 96 28 155/85 (108) 94 NIV Bilevel 50.00 03/03/19 16:00 82 18 151/51 (84) 94 NIV Bilevel 50.00 03/03/19 16:00 36.5 03/03/19 16:00 98 Vapotherm 25 03/03/19 15:00 85 23 155/57 (89) 95 NIV Bilevel 50.00 03/03/19 14:08 97 Vapotherm 25.00 35 03/03/19 14:00 66 14 138/35 (69) 97 NIV Bilevel 50.00 03/03/19 13:00 68 03/03/19 13:00 67 15 138/35 (69) 97 NIV Bilevel 50.00 03/03/19 12:00 94 19 66/45 (52) 96 NIV Bilevel 50.00 03/03/19 12:00 98 Vapotherm 25 03/03/19 11:00 86 17 134/44 (74) 97 NIV Bilevel 50.00 03/03/19 10:06 96 Vapotherm 25.00 35 03/03/19 10:00 87 24 110/44 (66) 97 NIV Bilevel 50.00 I & O 03/04/19 07:00 Intake Total 1475 ml Output Total 3350 ml Balance -1875 ml Capillary Refill : Less Than 3 Seconds General Appearance: Chronically ill, Mild Distress HEENT: PERRL/EOMI, Moist Mucous Membranes, Other Neck: Supple Respiratory: Chest Non Tender, No Accessory Muscle Use, No Respiratory Distress, Other (on BiPAP) Cardiovascular: Regular Rate, Rhythm Peripheral Pulses: 2+ Radial Pulses (R), 2+ Radial Pulses (L) Gastrointestinal: soft, other (Midline incision, VAC in place, ileostomy pink and with output) Extremity: Pedal Edema, Other (upper extremity edema) Neurologic/Psychiatric: Alert Skin: Warm/Dry Lymphatic: No Adenopathy Results Lab Laboratory Tests 03/04/19 02:55: White Blood Count 8.7, Red Blood Count 3.22L, Hemoglobin 10.3L, Hematocrit 32L, Mean Corpuscular Volume 99, Mean Corpuscular Hemoglobin 32, Mean Corpuscular Hemoglobin Concent 32, Red Cell Distribution Width 14.3, Platelet Count 238, Mean Platelet Volume 9.6, Neutrophils (%) (Auto) 81H, Lymphocytes (%) (Auto) 10L , Monocytes (%) (Auto) 8, Eosinophils (%) (Auto) 1, Basophils (%) (Auto) 0, Neutrophils # (Auto) 7.0, Lymphocytes # (Auto) 0.9L, Monocytes # (Auto) 0.7, Eosinophils # (Auto) 0.1, Basophils # (Auto) 0.0, Sodium Level 151H, Potassium Level 3.5L, Chloride Level 113H, Carbon Dioxide Level 26, Anion Gap 12, Blood Urea Nitrogen 45H, Creatinine 1.02, Estimat Glomerular Filtration Rate 53, BUN/Creatinine Ratio 44, Glucose Level 146H, Calcium Level 7.7L, Phosphorus Level 3.6, Magnesium Level 1.7 03/04/19 03:08: Blood Gas Puncture Site R RAD, Blood Gas Patient Temperature 36.3, Arterial Blood pH 7.54H, Arterial Blood Partial Pressure CO2 34L, Arterial Blood Partial Pressure O2 64L, Arterial Blood HCO3 29H, Arterial Blood Total CO2 29.9, Arterial Blood Oxygen Saturation 92L, Arterial Blood Base Excess 5.8H, Kenny Test YES-POS, Blood Gas Ventilator Setting NO, Blood Gas Inspired Oxygen 30 Microbiology 02/24/19 Blood Culture - Final, Complete Marilia albicans See Comments 02/25/19 Gram Stain - Final, Complete 02/25/19 Sputum Culture - Final, Complete No growth 02/24/19 Urine Culture - Final, Complete NO GROWTH Assessment/Plan Assessment/Plan Assessment/Plan S/P Ex Lap with SBR x 2 secondary to enterotomies and fecal contamination Resp Failure B/L pleural Effusion Bacteremia with Marilia Albicans Tachycardia and HTN Patient on bipap and clear liquid diet. Continue aggressive pulmonary management. Continue on clears today WBC down follow labs Wing for accurate i/o Clinical Quality Measures DVT/VTE Risk/Contraindication: Risk Factor Score Per Nursin RFS Level Per Nursing on Admit: 4+=Very High MISSY MONTEJO DO 03/04/19 1720: Subjective Time Seen by a Provider: 11:33 Subjective/Events-last exam Pt seen and examined, appears more alert today. States she is very weak and not very hungry. Assessment/Plan Assessment/Plan Assessment/Plan Pt to get up in chair, will start Ensure protein shakes, PT to work with aggressively. Pt encouraged to increase PO and use IS. Supervisory-Addendum Brief Verification & Attestation Participated in pt care: history, MDM, physical Personally performed: exam, history, MDM Care discussed with: Medical Student Procedures: n/a Verification and Attestation of Medical Student E/M Service A medical student performed and documented this service in my presence. I reviewed and verified all information documented by the medical student and made modifications to such information, when appropriate. I personally performed the physical exam and medical decision making. Missy Montejo, Mar 04, 2019,17:20 GILA HAYWOOD,MED STUDENT Mar 04, 2019 09:46 MISSY JAMES DO Mar 04, 2019 17:20 POS
--- NOTE | 2019-03-04 11:21 | Physical Therapy Daily Note ---
PT Daily Note-Current Subjective Patient in bed pre tx, agrees to PT, has 6/10 pain mostly in low back. Discussed with nurse and patient will perform LE exercises in bed, patient cannot sit yet due to having an open stomach with wound vac. Appearance Patient in bed post tx with nurse call, all needs met, O2 sat stayed at about 94% during treatment and HR was 105bpm. Mental Status Patient Orientation: Person, [place] Attachments: SCD's, Oxygen, Drains, Wing Catheter, IV Transfers SCALE: Activities may be completed with or without assistive devices. 8-Stkeacjwhr-spdpvat completes the activity by him/herself with no assistance from a helper. 5-Set-up or Clean-up Assistance-helper sets up or cleans up; patient completes activity. [place] assists only prior to or following the activity. 4-Supervision or Touching Assistance-helper provides verbal cues and/or touchin g/steadying and/or contact guard assistance as patient completes activity. Assistance may be provided throughout the activity or intermittently. 3-Partial/Moderate Assistance-helper does LESS THAN HALF the effort. [place] lifts, holds or supports trunk or limbs, but provides less than half the effort. 2-Substantial/Maximal Assistance-helper does MORE THAN HALF the effort. [place] lifts or holds trunk or limbs and provides more than half the effort. 9-Bzrvnkxyh-tlswhi does ALL the effort. Patient does none of the effort to complete the activity. Or, the assistance of 2 or more helpers is required for the patient to complete the activity. If activity was not attempted, code reason: 7-Patient Refused. 9-Not Applicable-not attempted and the patient did not perform the activity before the current illness, exacerbation or injury. 10-Not Attempted due to Environmental Limitations-(lack of equipment, weather restraints, etc.). 88-Not Attempted due to Medical Conditions or Safety Concerns. Weight Bearing Right Lower Extremity: Right Weight Bearing/Tolerated Left Lower Extremity: Left Weight Bearing/Tolerated Exercises Supine Ex: Ankle pumps, Quad Set, Glut sets, Heel Slides, Short Arc Quads, Straight leg raise, Hip abd/add Supine Reps: 15 Treatments LE exercise Assessment Current Status: Poor Progress profound LE weakness, patient not able to sit at edge of bed yet. PT Fdc Goals Fdc Goals PT Fdc Goals Time Frame: Apr 06, 2019 Sit to Lying (QC): 5 Lying-Sitting on Side/Bed(QC): 5 Sit to Stand (QC): 5 Roll Left to Right (QC): 5 Chair/Nyz-kg-Xkhft Xfer(QC): 5 Does the Patient Walk: Yes Distance: 150' Walk 10 feet (QC): 5 Walk 10ft-Uneven Surface(QC): 5 Walk 50ft with 2 Turns (QC): 5 Walk 150 ft (QC): 5 Gait Assistive Device: FWW PT Plan Problem List Problem List: Activity Tolerance, Functional Strength, Safety, Balance, Gait, Transfer, Bed Mobility, ROM Treatment/Plan Treatment Plan: Continue Plan of Care Treatment Plan: Bed Mobility, Education, Functional Activity José, Functional Strength, Gait, Safety, Therapeutic Exercise, Transfers Treatment Duration: Apr 06, 2019 Frequency: 6 times per week Estimated Hrs Per Day: .5 hour per day Patient and/or Family Agrees t: Yes Safety Risks/Education Patient Education: Correct Positioning, Safety Issues Teaching Recipient: Patient Teaching Methods: Demonstration, Discussion Response to Teaching: Reinforcement Needed Time/GCodes Time In: 1105 Time Out: 1115 Total Billed Treatment Time: 10 Total Billed Treatment 1 visit EX ANIVAL BLAIR PT Mar 04, 2019 11:21
--- NOTE | 2019-03-04 13:14 | Occupational Therapy Eval ---
OT Evaluation-General/PLF Medical Diagnosis Admission Date Medical Diagnosis: post op complications/bowel perforation Onset Date: Feb 24, 2019 Therapy Diagnosis Therapy Diagnosis: decreased functional mobility and ADL function Height/Weight Height (Feet): 5 Height (Inches): 5.00 Weight (Pounds): 160 Weight (Ounces): 0.0 Precautions Precautions/Isolations: Aspiration, Fall Prevention, Standard Precautions Safety Interventions: Reorient-PRN Weight Bear Status Weight Bearing Restriction: Weight Bearing/Tolerated Nursing states DO states pt okay to begin transferring to chair. Nursing notified of pt's weakness and plan to complete strengthening tasks prior to sit to stand Referral Physician: Harper Referral Reason: Activity Tolerance, Self Care, Evaluation/Treatment, Strengthening/ROM Medical History Pertinent Medical History: DM, HTN, Hypothroidism Additional Medical History see above Current History Per medical chart: "PT TO ED W/ DAUGHTER FOR C/O IRREGULAR HEART RATE, ALTERED LOC, LOW BP ET ABD PAIN R/T PREVIOUS SURGERY. DAUGHTER REPORTS PT HAD TAKEDOWN OF ADHESIONS ON 02/[address] PEARSON ET STATES SHE WAS "DOING FINE" UNTIL MONDAY. DAUGHTER STATES PT WAS IN THIS ED AT THAT TIME ET DX W/ UTI. DAUGHTER REPORTS PT HAS BEEN COOL, CLAMMY, HYPOTENSIVE, W/ AN IRREGULAR HEART RATE ET "NOT ACTING HERSELF" SINCE." Problem list: hypoxia acute respiratory distress sepsis pneumonia delirium (acute) cachexia hypoglycemia dementia presbycusis bilaterally ARF Reviewed History: Yes Social History Home: Single Level Current Living Status: Children Entry Into Home: Stairs With Railing Steps Into Home: 2 Steps Inside Home: 0 ADL-Prior Level of Function SCALE: Activities may be completed with or without assistive devices. 9-Hfvdbzoalm-oijuzdi completes the activity by him/herself with no assistance from a helper. 5-Set-up or Clean-up Assistance-helper sets up or cleans up; patient completes activity. [place] assists only prior to or following the activity. 4-Supervision or Touching Assistance-helper provides verbal cues and/or touching/steadying and/or contact guard assistance as patient completes activity. Assistance may be provided throughout the activity or intermittently. 3-Partial/Moderate Assistance-helper does LESS THAN HALF the effort. [place] lifts, holds or supports trunk or limbs, but provides less than half the effort. 2-Substantial/Maximal Assistance-helper does MORE THAN HALF the effort. [place] lifts or holds trunk or limbs and provides more than half the effort. 3-Vswowafxm-fqcwju does ALL the effort. Patient does none of the effort to complete the activity. Or, the assistance of 2 or more helpers is required for the patient to complete the activity. If activity was not attempted, code reason: 7-Patient Refused. 9-Not Applicable-not attempted and the patient did not perform the activity before the current illness, exacerbation or injury. 10-Not Attempted due to Environmental Limitations-(lack of equipment, weather restraints, etc.). 88-Not Attempted due to Medical Conditions or Safety Concerns. Self Care: Independent Functional Cognition: Unknown DME/Equipment: Bath Chair, Grab Bars DME/Equipment Comments IND without AE according to pt Pt reports use of shower chair, grab bars near toilet and in shower, and walk in shower. Occupation: retired- [employer] Self: Yes Leisure Interests: TV, word searches OT Current Status Subjective Pt states 10/10 pain in lower R abdomen. Pt agreeable to OT eval/ treat. Pt seen reclined in bed, food present. Mental Status/Objective Patient Orientation: Person, Place Attachments: Drains, Wing Catheter, IV, Oxygen Current Glasses/Contacts: Yes Hearing Aids: No Dentures/Partials: Yes Hand Dominance: Right Upper Extremity ROM WFL PROM Impaired AROM= shoulder flexion ~10* BUE Upper Extremity Coordination impaired Upper Extremity Sensation Pt states numb fingertips, denies hx of neuropathy Upper Extremity Strength Impaired 2-/5 strength ADL-Treatment Eating (QC): 2 (Pt's hand placed in cup handle, able to bring correction to face, requires assist with holding cup, bringing to mouth, moving straw to mouth. Pt requires s/u with containers and placement within hands- unable to manipulate utensils or hold onto during process. EKWOK utilized. Pt given built up handle. Nu rsing notified of need for assist during feeding. ) Oral Hygiene (QC): 1 (based on clinical judgement, TD with oral hygiene) Other Treatments Based on clinical judgement, pt is TD-max A for all I/ADL tasks due to weakness. Pt states she is slightly confused, says it "comes and goes." Pt educated on situation and rehab process/ ICU OT role. Pt's HOB elevated for drinking/ eating. Pt educated on how to raise/ lower HOB. Pt unable to obtain enough cervical range to see buttons. Pt's strength decreased, educated on exercises to perform throughout the day. pt return demonstrates with skilled assist. Pt handed fruit flavored frozen cup, pt holds with L hand. Pt requires max A to hold onto utensil, gather materials from cup, and bring to mouth. Pt states lips are chapped, pt was offered item for lips, pt denies, stating,"I will wait until I get home." Pt given lip moisturize and placed near pt. Pt given built up handle, educated on use. Pt left with call light in reach, all needs met, pt sleeping end of session. Education OT Patient Education: Correct positioning, Exercise program, Home exercise program, Modified ADL techniques, Purpose of tx/functional activities, Use of adapted equipment Teaching Recipient: Patient Teaching Methods: Demonstration, Discussion Response to Teaching: Verbalize Understanding, Return Demonstration, Reinforcement Needed OT Short Term Goals Short Term Goals Eating(FIM): 3 Grooming(FIM): 2 Upper Body Dressing(FIM): 2 Lower Body Dressing(FIM): 2 Additional Short Term Goals: 1-Demonstrate ADL Tasks, 2-Verbalize Understanding, 3-ImproveStrength/José 1=Demonstrate adherence to instructed precautions during ADL tasks. 2=Patient will verbalize/demonstrate understanding of assistive devices/modifications for ADL. 3=Patient will improve strength/tolerance for activity to enable patient to perform ADL's. OT Halfway Goals General Foreman Goals Eating (QC): 4 Oral Hygiene (QC): 4 Shower/Bathe Self (QC): 4 Upper Body Dressing (QC): 4 Lower Body Dressing (QC): 3 On/Off Footwear (QC): 4 Toileting Hygiene (QC): 3 Toilet/Commode Transfer (QC): 4 Additional Goals: 1-Demonstrate ADL Tasks, 2-Verbalize Understanding, 3- ImproveStrength/José 1=Demonstrate adherence to instructed precautions during ADL tasks. 2=Patient will verbalize/demonstrate understanding of assistive devices /modifications for ADL. 3=Patient will improve strength/tolerance for activity to enable patient to perform ADL's. OT Education/Plan Problem List/Assessment Assessment: Decreased Activ Tolerance, Decreased UE Strength, Dependent Transfers, Impaired Bed Mobility, Impaired Cognition, Impaired Coordination, Impaired Funct Balance, Impaired I ADL's, Impaired Self-Care Skills Discharge Recommendations Plan/Recommendations: Continue POC Patient/Family Goals Pt desires to increase strength for everyday activities Treatment Plan/Plan of Care Treatment,Training & Education: Yes Patient would benefit from OT for education, treatment and training to promote independence in ADL's, mobility, safety and/or upper extremity function for ADL's. Plan of Care: ADL Retraining, Caregiver Training, Cognitive Retraining, Concurrent Therapy, Functional Mobility, UE Funct Exercise/Act Treatment Duration: Mar 18, 2019 Frequency: 5 times per week Estimated Hrs Per Day: .25 hour per day Rehab Potential: Fair Time/GCodes Start Time: 11:45 Stop Time: 12:15 Total Time Billed (hr/min): 30 Billed Treatment Time 1, EVM (10), ADL (20)= 30 YANIRA FREEMAN OTR Mar 04, 2019 13:14 POS
--- NOTE | 2019-03-04 16:38 | Progress Note - Hospitalist ---
Subjective HPI/CC On Admission Date Seen by Provider: Mar 04, 2019 Time Seen by Provider: 08:30 abdominal pain Subjective/Events-last exam She reports feeling ok today. She denies fevers and chills. She reports back pain. She wants to get out of bed. She reports some abdominal pain. She denies nausea and vomiting. Focused Exam Time of Focused Exam: 22:00 Objective Exam Vital Signs Vital Signs Date Time Temp Pulse Resp B/P (MAP) Pulse Ox O2 Delivery O2 Flow Rate FiO2 03/04/19 16:00 117 25 152/64 (93) 94 Nasal Cannula 3.00 03/04/19 04:00 25 03/04/19 04:00 36.3 Capillary Refill : Less Than 3 Seconds General Appearance: No Apparent Distress, WD/WN, Chronically ill Neck: Normal Inspection, Supple Respiratory: Lungs Clear, Normal Breath Sounds, No Respiratory Distress Cardiovascular: No Murmur, Tachycardia, Other (regular rhythm) Gastrointestinal: Soft, Abnormal Bowel Sounds (hypoactive), Tenderness, Other (wound vac in place along midline incision) Extremity: Non Tender, Pedal Edema Neurologic/Psychiatric: Alert; No Disoriented Results/Procedures Lab Laboratory Tests 03/04/19 02:55 Patient resulted labs reviewed. Imaging: Reviewed Imaging Report Assessment/Plan Assessment and Plan Assess & Plan/Chief Complaint Shock, resolved Fungemia Perforated abdominal viscus -Continue Diflucan -Agree with TTE to evaluate heart valves Acute hypoxemic respiratory failure -Improving, now on nasal cannula -Diuresing with IV Lasix Hypernatremia -Continue to monitor -May need additional free water supplementation Hypertension -Clonidine ordered -Hydralazine as needed Paroxysmal atrial fibrillation -Continue metoprolol -Cardiology following T2DM -Sliding scale insulin Critical illness myopathy -PT/OT Diagnosis/Problems Diagnosis/Problems (1) Fungemia Status: Acute (2) Acute respiratory failure Status: Acute Qualifiers: Respiratory failure complication: unspecified whether with hypoxia or hypercapnia Qualified Codes: J96.00 - Acute respiratory failure, unspecified whether with hypoxia or hypercapnia (3) Perforated abdominal viscus Status: Acute (4) Essential hypertension Status: Chronic (5) Critical illness myopathy Status: Acute (6) IDDM (insulin dependent diabetes mellitus) Status: Chronic Clinical Quality Measures DVT/VTE Risk/Contraindication: Risk Factor Score Per Nursin RFS Level Per Nursing on Admit: 4+=Very High NAIMA ROMAN MD Mar 04, 2019 16:38 POS
[2019-03-05] VITALS (31 sets, daily range): BP systolic 91–178; BP diastolic 23–63
[2019-03-05] MEDS: meTOprolol 5 MG/5 ML (LOPRESSOR) VIAL IV SCH ×4 (00:51→18:12)
[2019-03-05] MEDS: ENOXAPARIN 100 MG/1 ML (LOVENOX) SYR SC SCH ×2 (00:51→10:41)
[2019-03-05] MEDS: RT-IPRATROPIUM (ATROVENT) 0.5MG/2.5ML AMP IH SCH ×5 (02:35→19:12)
[2019-03-05] MEDS: morphine INJ 4 MG/ML 1 ML (VIAL/SYRINGE) IVP PRN ×2 (03:20→10:41)
[2019-03-05 03:24] LABS: BASOPHILS % (AUTO) 0 % (0-10); EOSINOPHILS % (AUTO) 0 % (0-10); HEMATOCRIT 36 % (35-52); HEMOGLOBIN 11.4 G/DL (11.5-16.0); LYMPHOCYTES % (AUTO) 7 % (12-44); MEAN CORPUSCULAR HEMOGLOBIN 32 PG (25-34); MEAN CORPUSCULAR HGB CONC 32 G/DL (32-36); MEAN CORPUSCULAR VOLUME 100 FL (80-99); MONOCYTES # (AUTO) 0.8 X 10^3 (0.0-1.0); MONOCYTES % (AUTO) 6 % (0-12); NEUTROPHILS # (AUTO) 11.4 X 10^3 (1.8-7.8); NEUTROPHILS % (AUTO) 87 % (42-75); PLATELET COUNT 252 10^3/uL (130-400); RED CELL DISTRIBUTION WIDTH 14.5 % (10.0-14.5); WHITE BLOOD COUNT 13.2 10^3/uL (4.3-11.0)
[2019-03-05 03:39] LABS: CALCIUM 7.7 MG/DL (8.5-10.1); CREATININE SERUM 1.58 MG/DL (0.60-1.30); MAGNESIUM 1.8 MG/DL (1.6-2.4); PHOSPHORUS 4.6 MG/DL (2.3-4.7); POTASSIUM 4.2 MMOL/L (3.6-5.0)
[2019-03-05 03:41] LABS: ABG BASE EXCESS 4.4 MMOL/L (-2.5-2.5); ABG OXYGEN SATURATION 91 % (94-100); ABG PCO2 34 MMHG (35-45); ABG PH 7.51 (7.37-7.43); ABG PO2 57 MMHG (79-93); ABG TCO2 28.5 MMOL/L (21.0-31.0)
[2019-03-05 03:46] LABS: ALLENS TEST POSITIVE; INSPIRED O2 30%; PATIENT TEMP 37.2; VENTILATOR NO
[2019-03-05] MEDS ORDERED: MAGNESIUM 1 GM/100 ML IVPB 100 ML IV ONE (05:00)
[2019-03-05] MEDS ORDERED: LACTATED RINGERS 1,000 ML IV SCH (05:00)
--- NOTE | 2019-03-05 05:00 | Pulmonary Progress Note ---
Subjective Time Seen by a Provider: 05:05 Subjective/Events-last exam Pt appears very weak and has had decreased UO. Sepsis Event Evaluation Height, Weight, BMI Height: 5'5.00" Weight: 160lbs. 0.0oz. [id number]; 21.79 BMI Method:Stated Focused Exam Time of Focused Exam: 22:00 Exam Exam Vital Signs Date Time Temp Pulse Resp B/P (MAP) Pulse Ox O2 Delivery O2 Flow Rate FiO2 03/05/19 04:00 98 29 127/54 (78) 94 NIV Bilevel 30.00 03/05/19 04:00 NIV Bilevel 30 03/05/19 03:40 37.4 03/05/19 03:00 102 27 126/55 (78) 95 NIV Bilevel 30.00 03/05/19 02:34 104 26 94 30.00 03/05/19 02:00 98 21 136/57 (83) 94 NIV Bilevel 30.00 03/05/19 01:00 88 27 127/53 (77) 95 NIV Bilevel 30.00 03/05/19 00:58 92 03/05/19 00:00 37.2 03/05/19 00:00 NIV Bilevel 30 03/05/19 00:00 112 29 143/54 (83) 94 NIV Bilevel 30.00 03/04/19 23:00 118 26 136/63 (87) 95 NIV Bilevel 30.00 03/04/19 22:11 95 NIV Bilevel 30 03/04/19 22:00 113 41 133/54 (80) 95 NIV Bilevel 30.00 03/04/19 21:46 NIV Bilevel 30.00 03/04/19 21:00 115 45 135/60 (85) 94 Nasal Cannula 3.00 03/04/19 20:00 37.0 03/04/19 20:00 Nasal Cannula 5.00 03/04/19 20:00 118 49 137/59 (85) 94 Nasal Cannula 3.00 03/04/19 19:00 117 03/04/19 19:00 115 44 144/58 (86) 95 Nasal Cannula 3.00 03/04/19 18:41 94 Nasal Cannula 3.00 03/04/19 18:00 106 148/61 (90) 93 Nasal Cannula 3.00 03/04/19 17:00 121 38 152/58 (89) 96 Nasal Cannula 3.00 03/04/19 16:00 117 25 152/64 (93) 94 Nasal Cannula 3.00 03/04/19 16:00 Nasal Cannula 5.00 03/04/19 16:00 36.7 03/04/19 15:00 120 43 155/57 (89) 91 Nasal Cannula 3.00 03/04/19 14:40 94 Nasal Cannula 3.00 03/04/19 14:00 116 36 166/63 (97) 95 Nasal Cannula 3.00 03/04/19 13:00 105 19 172/60 (97) 97 Nasal Cannula 3.00 03/04/19 12:24 80 03/04/19 12:00 88 16 138/69 (92) 97 Nasal Cannula 3.00 03/04/19 12:00 96 Nasal Cannula 5.00 03/04/19 11:00 104 17 157/56 (89) 94 Nasal Cannula 3.00 03/04/19 10:26 92 Nasal Cannula 3.00 03/04/19 10:00 86 28 179/66 (103) 95 Nasal Cannula 3.00 03/04/19 09:00 86 19 154/57 (89) 96 Nasal Cannula 3.00 03/04/19 08:00 86 25 158/58 (91) 94 Nasal Cannula 3.00 03/04/19 08:00 94 Nasal Cannula 5.00 03/04/19 07:00 85 03/04/19 07:00 93 26 169/62 (97) 92 Nasal Cannula 3.00 03/04/19 06:56 92 Nasal Cannula 3.00 03/04/19 06:48 95 Nasal Cannula 5.00 03/04/19 06:00 92 21 171/62 (98) 96 Nasal Cannula 5.00 03/04/19 05:36 Nasal Cannula 5.00 03/04/19 05:00 81 15 141/53 (82) 97 Vapotherm 25.00 35.00 I & O 03/05/19 07:00 Intake Total 500 ml Output Total 2400 ml Balance -1900 ml Height & Weight Height: 5'5.00" Weight: 160lbs. 0.0oz. 72.638718vg; 21.79 BMI Method:Stated General Appearance: No Apparent Distress, WD/WN, Chronically ill HEENT: PERRL/EOMI, Moist Mucous Membranes, Other Neck: Normal Inspection, Supple Respiratory: Lungs Clear, Normal Breath Sounds, No Respiratory Distress Cardiovascular: No Murmur, Tachycardia, Other (regular rhythm) Capillary Refill: Less Than 3 Seconds Peripheral Pulses: 2+ Radial Pulses (R), 2+ Radial Pulses (L) Gastrointestinal: soft, other (Midline incision, VAC in place, ileostomy pink and with output) Extremity: Non Tender, Pedal Edema Neurologic/Psychiatric: Alert; No Disoriented Skin: Warm/Dry Lymphatic: No Adenopathy Results Lab Laboratory Tests 03/04/19 02:55 03/05/19 03:00 Assessment/Plan Assessment/Plan Acute respiratory failure with hypoxia -currently on BiPAP -Will D/C bipap and use vapotherm as needed Fungemia -Possible STAN[place]ORD pending -Echo shows diastolic dysfunction -Diflucan Acute renal failure with Oliguria only 20cc/hr of dark yellow UO. -Give liter bolus of LR then run at 150cc/hr -D/C lasix peforated abdominal viscus s/p surgical repair -CXR shows extensive persistent abdominal distention -Will defer to Dr. Willett. -RN reports liquid dark green stool from colostomy Hypernatremia -Secondary to dehydration -Start IVF DM II Debility -PT/OT protein jorge malnutrition -Pt is on CLD and ensure TID JAZMYNE THOMPSON DO Mar 05, 2019 05:00 POS
[2019-03-05] MEDS: LACTATED RINGERS 1,000 ML IV SCH ×2 (05:41→18:34)
[2019-03-05] MEDS: inSUlin ASPART (NovoLOG) 1 UNIT/0.01 ML (CHARGE PER UNIT) SQ SCH ×4 (06:14→21:49)
[2019-03-05] MEDS: POTASSIUM CL 10MEQ/50ML IVPB 50 ML IV SCH (06:14)
[2019-03-05] MEDS: MAGNESIUM 1 GM/100 ML IVPB 100 ML IV SCH (06:14)
[2019-03-05] MEDS: KCL 20 MEQ TAB (K-DUR) PO SCH (06:14)
--- NOTE | 2019-03-05 07:00 | Cardiology Progress Note ---
Subjective Date Seen by Provider: Mar 05, 2019 Time Seen by Provider: 06:58 Subjective/Events-last exam Patient is laying down in bed, feeling better, breathing better. Review of Systems General: No Chills, No Night Sweats; Fatigue, Malaise; No Appetite, No Other HEENT: No Head Aches, No Visual Changes, No Eye Pain, No Ear Pain, No Dysphasia, No Sinus Congestion, No Post Nasal Drip, No Sore Throat, No Other Pulmonary: Dyspnea; No Cough, No Pleuritic Chest Pain, No Other Cardiovascular: No: Chest Pain, Palpitations, Orthopnea, Paroxysmal Noc. Dyspnea, Edema, Lt Headedness, Other Focused Exam Time of Focused Exam: 22:00 Objective-Cardiology Exam Last Set of Vital Signs Vital Signs 03/05/19 03/05/19 03/05/19 03:40 04:00 06:00 Temp 37.4 Pulse 93 Resp 23 B/P (MAP) 129/51 (77) Pulse Ox 96 O2 Delivery NIV Bilevel O2 Flow Rate 30.00 FiO2 30 Capillary Refill : Less Than 3 Seconds I&O Intake and Output 03/05/19 00:00 Intake Total 625 ml Output Total 3075 ml Balance -2450 ml Intake Oral 425 ml IV Total 200 ml Output Urine Total 2950 ml Stool Total 125 ml General: Alert, Oriented X3, Cooperative, No Acute Distress HEENT: Atraumatic Neck: Supple, No Thyromegaly Lungs: Clear to Auscultation, Normal Air Movement Heart: Normal S1, Normal S2, No Murmurs, Other (Atrial fibrillation) Abdomen: No Masses, Other (Diminished bowel sounds) Extremities: No Clubbing, No Cyanosis, No Edema, Normal Pulses, No Tenderness/Swelling Skin: No Rashes Neuro: Normal Speech Psych/Mental Status: Mental Status NL Results Lab Laboratory Tests 03/05/19 03:00 A/P-Cardiology Admission Diagnosis Acute respiratory failure Paroxysmal atrial fibrillation Coronary artery disease Hypertension Assessment/Plan Status post respiratory failure, improved, on nasal cannula at this time, using Vapotherm as needed. Fungemia, sepsis, receiving antibiotics, echocardiogram did not show any vegetation. I'm hesitant to do STANFODR due to the recent perforated viscus. Paroxysmal atrial fibrillation, back to sinus rhythm, continue to monitor heart rate Labile hypertension, better control at this time, tolerating current medication well. Coronary artery disease, history of cardiac catheterization in July 2012 showing 50 percent midright coronary artery stenosis, nonobstructive disease, had a borderline disease in the midright coronary artery. Most recent cardiac catheterization done April 2018 revealed mild ectasia in the proximal LAD with mild disease in the mid LAD, small vessel disease distally, mild ectasia in the proximal circumflex artery and 40-50 percent stenosis in the mid right coronary artery, nonobstructive disease History of colon cancer, history of colon resection and colostomy in the remote past has been in remission and followed by Dr. Branham History of hyperlipidemia Carotid artery , continue to monitor Syncope, had a syncopal episode in October 2015 probably due to dehydration. Was in renal failure. Improved. Thyroid nodules noted on ultrasound, followed by Dr. Branham and Dr. Simmons Diabetes mellitus, followed and managed by primary care physician. History of colon cancer, history of colostomy. Currently in remission. Followed by Dr. Branham Family history of coronary artery disease. Obstructive sleep apnea, intolerance to CPAP History of appendectomy, kidney stones, hysterectomy. Breast biopsy. Clinical Quality Measures DVT/VTE Risk/Contraindication: Risk Factor Score Per Nursin RFS Level Per Nursing on Admit: 4+=Very High NAYA URIAS MD Mar 05, 2019 07:00 POS
[2019-03-05] MEDS: RT-FLUTICASONE 220 MCG (FLOVENT) PER PUFF INH SCH ×2 (07:03→19:11)
[2019-03-05] MEDS: PANTOPRAZOLE 40 MG (PROTONIX) VIAL IV SCH (07:46)
[2019-03-05] MEDS: FLUCONAZOLE 200 MG/NACL 100 ML (PRE-MIX) IV SCH (07:46)
--- NOTE | 2019-03-05 07:50 | Diagnostic Imaging Report ---
INDICATION: Dyspnea. COMPARISON STUDY: Chest from yesterday. FINDINGS: Portable upright view of the chest demonstrates persistent bibasilar infiltrates left greater than right with a stable left pleural effusion. Heart size and vascularity are normal. Right arm PICC line remains in place. Free air is again seen within the abdomen. IMPRESSION: 1. Stable bibasilar infiltrates left greater than right and left effusion. 2. Free air is again seen within the abdomen. Dictated by: Dictated on workstation # [id number]
[2019-03-05] MEDS ORDERED: D5W 500 ML IV SOLUTION 500 ML IV ONE (08:00)
[2019-03-05] MEDS: D5W 1000 ML IV SOLUTION 1,000 ML IV SCH ×2 (10:11→16:23)
--- NOTE | 2019-03-05 10:48 | NUR ---
RD ASSESSMENT PMHx: HTN; hypercholesterolemia; GERD; DM; ileostomy PT INTERACTION: Pt was awake and pleasant during nutrition assessment. Pt described current appetite as "it feels like it is getting better." Pt states no current issues with n/v/c/d at this time. Note pt has ostomy, and per chart review, it appears to have good output at this time. Pt states following a regular diet at home, and has dentures to assist with eating. ABNORMAL NUTRITION-RELATED LAB VALUES: Na 152 (H); BUN 58 (H); glu 167 (H); Ca 7.7 (L) Est. kcal needs: 5943-2770 kcal (15-20 kcal/kg) Est. Pro needs: 96-115 g Pro (1.0-1.2 g Pro/kg) PES STATEMENT: Inadequate oral intake (NI-2.1) related to loss of appetite as evidenced by pt interview INTERVENTION: Advance diet to DYS2 Mechanically Altered, as medically able. Switch current supplementation order to Ensure Enlive (Straw/Van) to meals TID. Provides 350 kcal and 20 g Pro per serving. Will continue to follow and monitor PO intake. MONITOR/EVALUATE: Diet Advancement; Supplement Tolerance; PO Intake; Plan of Care; Hydration Status; Weight Status; Lab Values Ambrose Cuenca, MS, RD, LD Ext. 133
--- NOTE | 2019-03-05 11:30 | Occupational Ther Daily Note ---
OT Current Status-Daily Note Subjective RN reports pt okay for treatment this am. Pt resting in bed, agrees to therapy. Pt reports pain in abdomen, but does not rate. Mental Status/Objective Attachments: Wing Catheter, IV, Oxygen ADL-Treatment Pt completed bilateral UE activity to promote increased strength and activity tolerance needed for functional task completion. Pt performed AAROM x10 reps at all joints. Pt is weak and fatigues quickly with activity. Rest breaks taken between exercises. Pt attempted to wash face, required elbow to be supported. Max assist to complete task. Pt was repositioned in bed with assist x2. Pt resting in bed with needs met and RN present after session. Therapy Code Descriptions/Definitions Functional [place] Measure: 0=Not Assessed/NA 4=Minimal Assistance 1=Total Assistance 5=Supervision or Setup 2=Maximal Assistance 6=Modified [place] 3=Moderate Assistance 7=Complete IndependenceSCALE: Activities may be completed with or without assistive devices. 7-Jozcluynex-emgnutq completes the activity by him/herself with no assistance from a helper. 5-Set-up or Clean-up Assistance-helper sets up or cleans up; patient completes activity. [place] assists only prior to or following the activity. 4-Supervision or Touching Assistance-helper provides verbal cues and/or touching/steadying and/or contact guard assistance as patient completes activity. Assistance may be provided throughout the activity or intermittently. 3-Partial/Moderate Assistance-helper does LESS THAN HALF the effort. [place] lifts, holds or supports trunk or limbs, but provides less than half the effort. 2-Substantial/Maximal Assistance-helper does MORE THAN HALF the effort. [place] lifts or holds trunk or limbs and provides more than half the effort. 3-Xxlifvsih-lqflwo does ALL the effort. Patient does none of the effort to complete the activity. Or, the assistance of 2 or more helpers is required for the patient to complete the activity. If activity was not attempted, code reason: 7-Patient Refused. 9-Not Applicable-not attempted and the patient did not perform the activity before the current illness, exacerbation or injury. 10-Not Attempted due to Environmental Limitations-(lack of equipment, weather restraints, etc.). 88-Not Attempted due to Medical Conditions or Safety Concerns. OT Short Term Goals Short Term Goals Eating(FIM): 3 Grooming(FIM): 2 Upper Body Dressing(FIM): 2 Lower Body Dressing(FIM): 2 Additional Short Term Goals: 1-Demonstrate ADL Tasks, 2-Verbalize Understanding, 3-ImproveStrength/José 1=Demonstrate adherence to instructed precautions during ADL tasks. 2=Patient will verbalize/demonstrate understanding of assistive devices/modifications for ADL. 3=Patient will improve strength/tolerance for activity to enable patient to perform ADL's. OT Surgical Territory Manager Goals Care Home Goals Eating (QC): 4 Oral Hygiene (QC): 4 Shower/Bathe Self (QC): 4 Upper Body Dressing (QC): 4 Lower Body Dressing (QC): 3 On/Off Footwear (QC): 4 Toileting Hygiene (QC): 3 Toilet/Commode Transfer (QC): 4 Additional Goals: 1-Demonstrate ADL Tasks, 2-Verbalize Understanding, 3- ImproveStrength/José 1=Demonstrate adherence to instructed precautions during ADL tasks. 2=Patient will verbalize/demonstrate understanding of assistive devices/modific ations for ADL. 3=Patient will improve strength/tolerance for activity to enable patient to perform ADL's. OT Education/Plan Discharge Recommendations Plan/Recommendations: Continue POC Treatment Plan/Plan of Care Patient would benefit from OT for education, treatment and training to promote independence in ADL's, mobility, safety and/or upper extremity function for ADL's. Plan of Care: ADL Retraining, Caregiver Training, Cognitive Retraining, Concurrent Therapy, Functional Mobility, UE Funct Exercise/Act Treatment Duration: Mar 18, 2019 Frequency: 5 times per week Estimated Hrs Per Day: .25 hour per day Rehab Potential: Fair Time/GCodes Start Time: 10:23 Stop Time: 10:41 Total Time Billed (hr/min): 18 Billed Treatment Time 1 visit, EX(18minutes) DEL ESCOBAR OT Mar 05, 2019 11:30 POS
--- NOTE | 2019-03-05 11:47 | Physical Therapy Daily Note ---
PT Daily Note-Current Subjective Patient agrees to PT at this time. Patient takes extra time to process and respond to questions. Pain Numeric Pain Scale: 5-Moderate Pain Location: Lower Location Body Site: Abdomen Pain Description: Acute Comment: Reports generalized pain/discomfort Mental Status Patient Orientation: Confused, Mumbles, Normal For Age Attachments: SCD's, Oxygen, Drains, Wing Catheter, IV Transfers SCALE: Activities may be completed with or without assistive devices. 0-Ospzfwmmfy-peyjvyv completes the activity by him/herself with no assistance from a helper. 5-Set-up or Clean-up Assistance-helper sets up or cleans up; patient completes activity. [place] assists only prior to or following the activity. 4-Supervision or Touching Assistance-helper provides verbal cues and/or touching/steadying and/or contact guard assistance as patient completes activ ity. Assistance may be provided throughout the activity or intermittently. 3-Partial/Moderate Assistance-helper does LESS THAN HALF the effort. [place] lifts, holds or supports trunk or limbs, but provides less than half the effort. 2-Substantial/Maximal Assistance-helper does MORE THAN HALF the effort. [place] lifts or holds trunk or limbs and provides more than half the effort. 6-Niyhhtiro-nxdskg does ALL the effort. Patient does none of the effort to complete the activity. Or, the assistance of 2 or more helpers is required for the patient to complete the activity. If activity was not attempted, code reason: 7-Patient Refused. 9-Not Applicable-not attempted and the patient did not perform the activity before the current illness, exacerbation or injury. 10-Not Attempted due to Environmental Limitations-(lack of equipment, weather restraints, etc.). 88-Not Attempted due to Medical Conditions or Safety Concerns. Weight Bearing Right Lower Extremity: Right Weight Bearing/Tolerated Left Lower Extremity: Left Weight Bearing/Tolerated Exercises Supine Ex: Ankle pumps, Glut sets, Heel Slides, Straight leg raise (AAROM), Hip abd/add Supine Reps: 10 Assessment Patient able to tolerate bed level exercises but expressed some confusion with explanations of exercises. Patient required manual cues to perform exercises and assistance for SLR and full ROM in knee flexion. Patient was repositioned in bed at conclusion of treatment for comfort. PT Longterm Goals Recruiter Coordinator Goals PT Longterm Goals Time Frame: Apr 06, 2019 Sit to Lying (QC): 5 Lying-Sitting on Side/Bed(QC): 5 Sit to Stand (QC): 5 Roll Left to Right (QC): 5 Chair/Ohx-fy-Xyvtv Xfer(QC): 5 Does the Patient Walk: Yes Distance: 150' Walk 10 feet (QC): 5 Walk 10ft-Uneven Surface(QC): 5 Walk 50ft with 2 Turns (QC): 5 Walk 150 ft (QC): 5 Gait Assistive Device: FWW PT Plan Treatment/Plan Treatment Plan: Continue Plan of Care Treatment Plan: Bed Mobility, Education, Functional Activity José, Functional Strength, Gait, Safety, Therapeutic Exercise, Transfers Treatment Duration: Apr 06, 2019 Frequency: 6 times per week Estimated Hrs Per Day: .5 hour per day Patient and/or Family Agrees t: Yes Time/GCodes Time In: 1056 Time Out: 1109 Total Billed Treatment Time: 13 Total Billed Treatment 1 visit EX 13min CHIDI AMAYA PT Mar 05, 2019 11:47 POS
--- NOTE | 2019-03-05 12:47 | Diagnostic Imaging Report ---
EXAMINATION: CT Abdomen Pelvis without contrast. TECHNIQUE: Multiple contiguous axial images were obtained through the abdomen and pelvis without the use of intravenous contrast. All CT scans use one or more of the following dose optimizing techniques: automated exposure control, MA and/or KvP adjustment based on a patient size and exam type, or iterative reconstruction. HISTORY: Free air. COMPARISON: 03/04/2019 FINDINGS: There are postsurgical changes of partial colectomy and right lower quadrant ostomy. There is an anterior abdominal fluid and gas collection. The fluid component has increased from prior exam and measures 17 x 6 cm, previously 12 x 6 cm. There is a suture line adjacent to this collection which appears like the overlying bowel is somewhat irregular. The amount of free air is stable. There is packing of a midline incision. Presacral fluid collection is increased in size as well measuring 8.0 x 5.9 cm, previously only 2 cm thick. Wing catheter decompresses the urinary bladder. Fluid and gas surrounds the liver, increased from prior exam. Perisplenic ascites is also increased. There is diffuse body wall edema. Abdominal aorta is normal in caliber. There are small bilateral pleural effusions with overlying atelectasis in the lung bases. The sclerotic lesion in L3 is now lytic appearing. IMPRESSION: 1. Increasing free fluid in the abdomen with fluid centered about the anastomosis in the mid abdomen. If patient has recently had surgery between the current CT and the prior CT this would be concerning for postoperative leak at the site of this anastomosis. 2. Increase in size of presacral fluid collection and free fluid and air about the liver and spleen. 3. Increased size of bilateral pleural effusions with overlying atelectasis. 4. The sclerotic lesion in L3 is unchanged in size but now appears lytic. Dictated by: Dictated on workstation # [id number]
--- NOTE | 2019-03-05 15:24 | Progress Note - Hospitalist ---
Subjective HPI/CC On Admission Date Seen by Provider: Mar 05, 2019 Time Seen by Provider: 08:30 abdominal pain Subjective/Events-last exam She reports feeling ok this morning. She says her back pain is improved. She is not having abdominal pain. She denies nausea and vomiting. She denies fever and chills. She denies chest pain and dyspnea. Focused Exam Time of Focused Exam: 22:00 Objective Exam Vital Signs Vital Signs Date Time Temp Pulse Resp B/P (MAP) Pulse Ox O2 Delivery O2 Flow Rate FiO2 03/05/19 15:00 89 18 146/56 (86) 95 Nasal Cannula 5.00 03/05/19 08:00 36.6 03/05/19 04:00 30 Capillary Refill : Less Than 3 Seconds General Appearance: No Apparent Distress, WD/WN Respiratory: Lungs Clear, Normal Breath Sounds, No Respiratory Distress Cardiovascular: Regular Rate, Rhythm, No Edema, No Murmur Gastrointestinal: Soft, Abnormal Bowel Sounds (hypoactive), Tenderness Extremity: Non Tender, Swelling (2+ pitting edema in all extremities) Neurologic/Psychiatric: Alert, Oriented x3 Skin: Normal Color, Warm/Dry Results/Procedures Lab Laboratory Tests 03/05/19 03:00 Patient resulted labs reviewed. Imaging: Reviewed Imaging Films, Reviewed Imaging Report Assessment/Plan Assessment and Plan Assess & Plan/Chief Complaint Perforated abdominal viscus -CXR this morning showing free air -CT concerning for leak around anastomosis -Surgery following, going back for ex lap today Shock, resolved Fungemia -Continue Diflucan for fungemia Acute hypoxemic respiratory failure -Improving, now on nasal cannula Acute kidney injury Hypernatremia -Transition to D5W for free water replacement Hypertension -Clonidine ordered -Hydralazine as needed Paroxysmal atrial fibrillation -Continue metoprolol -Cardiology following T2DM -Sliding scale insulin Critical illness myopathy -PT/OT Diagnosis/Problems Diagnosis/Problems (1) Perforated abdominal viscus Status: Acute (2) Fungemia Status: Acute (3) Acute respiratory failure Status: Acute Qualifiers: Respiratory failure complication: unspecified whether with hypoxia or hypercapnia Qualified Codes: J96.00 - Acute respiratory failure, unspecified whether with hypoxia or hypercapnia (4) Essential hypertension Status: Chronic (5) Critical illness myopathy Status: Acute (6) IDDM (insulin dependent diabetes mellitus) Status: Chronic Clinical Quality Measures DVT/VTE Risk/Contraindication: Risk Factor Score Per Nursin RFS Level Per Nursing on Admit: 4+=Very High NAIMA ROMAN MD Mar 05, 2019 15:24 POS
[2019-03-05] MEDS ORDERED: ROCURONIUM 10 MG/ML 5 ML SYRINGE IV ONE (16:28)
[2019-03-05] MEDS ORDERED: ONDANSETRON 4 MG/2 ML (SDV) Z0FRAN ONE (16:28)
[2019-03-05] MEDS ORDERED: LIDOCAINE PF 2% 5 ML (XYLOCAINE) VIAL ONE (16:28)
[2019-03-05] MEDS ORDERED: proPOfol 200 MG/20 ML (DIPRIVAN) VIAL IV ONE (16:28)
[2019-03-05] MEDS ORDERED: SEVOFLURANE (ULTANE) 15 ML INHAL SOLN ONE ×10 (16:28→19:21)
[2019-03-05] MEDS ORDERED: fentaNYL INJECTION 100 MCG/2 ML AMP ONE (16:31)
--- NOTE | 2019-03-05 16:35 | Progress Note - Surgery ---
CARMELOBRITTANY,MED STUDENT 03/05/19 1635: Subjective Date Seen by a Provider: Mar 05, 2019 Time Seen by a Provider: 12:04 Subjective/Events-last exam Patient seems slightly disoriented today and she denied any new complaints. She states that the ensure shakes have not been brought for her yet. She feels like her breathing is improved and also reports that she got up into a chair yesterday. Good ostomy output. However, review of abdominal X-rays yesterday and today showed free air in the abdomen. Spoke with her daughter regarding plan of care. Focused Exam Time of Focused Exam: 22:00 Objective Exam Vital Signs Date Time Temp Pulse Resp B/P (MAP) Pulse Ox O2 Delivery O2 Flow Rate FiO2 03/05/19 16:00 92 22 155/58 (90) 96 Nasal Cannula 5.00 03/05/19 15:50 36.2 03/05/19 15:00 89 18 146/56 (86) 95 Nasal Cannula 5.00 03/05/19 14:38 94 Nasal Cannula 3.00 03/05/19 14:00 93 24 137/63 (87) 94 Nasal Cannula 5.00 03/05/19 13:00 82 16 124/54 (77) 95 Nasal Cannula 5.00 03/05/19 12:26 85 03/05/19 12:00 74 15 107/48 (67) 95 Nasal Cannula 5.00 03/05/19 12:00 98 Nasal Cannula 5.00 03/05/19 11:00 87 28 146/58 (87) 95 Nasal Cannula 5.00 03/05/19 10:00 90 18 137/54 (81) 97 Nasal Cannula 5.00 03/05/19 09:00 102 25 156/60 (92) 95 Nasal Cannula 5.00 03/05/19 08:00 85 20 142/51 (81) 95 Nasal Cannula 5.00 03/05/19 08:00 98 Nasal Cannula 5.00 03/05/19 08:00 36.6 03/05/19 07:03 96 Nasal Cannula 3.00 03/05/19 07:00 88 03/05/19 07:00 86 25 149/57 (87) 97 NIV Bilevel 30.00 03/05/19 06:51 98 Nasal Cannula 3.00 03/05/19 06:00 93 23 129/51 (77) 96 NIV Bilevel 30.00 03/05/19 05:00 94 30 122/59 (80) 93 NIV Bilevel 30.00 03/05/19 04:00 98 29 127/54 (78) 94 NIV Bilevel 30.00 03/05/19 04:00 NIV Bilevel 30 03/05/19 03:40 37.4 03/05/19 03:00 102 27 126/55 (78) 95 NIV Bilevel 30.00 03/05/19 02:34 104 26 94 30.00 03/05/19 02:00 98 21 136/57 (83) 94 NIV Bilevel 30.00 03/05/19 01:00 88 27 127/53 (77) 95 NIV Bilevel 30.00 03/05/19 00:58 92 03/05/19 00:00 37.2 03/05/19 00:00 NIV Bilevel 30 03/05/19 00:00 112 29 143/54 (83) 94 NIV Bilevel 30.00 03/04/19 23:00 118 26 136/63 (87) 95 NIV Bilevel 30.00 03/04/19 22:11 95 NIV Bilevel 30 03/04/19 22:00 113 41 133/54 (80) 95 NIV Bilevel 30.00 03/04/19 21:46 NIV Bilevel 30.00 03/04/19 21:00 115 45 135/60 (85) 94 Nasal Cannula 3.00 03/04/19 20:00 37.0 03/04/19 20:00 Nasal Cannula 5.00 03/04/19 20:00 118 49 137/59 (85) 94 Nasal Cannula 3.00 03/04/19 19:00 117 03/04/19 19:00 115 44 144/58 (86) 95 Nasal Cannula 3.00 03/04/19 18:41 94 Nasal Cannula 3.00 03/04/19 18:00 106 148/61 (90) 93 Nasal Cannula 3.00 03/04/19 17:00 121 38 152/58 (89) 96 Nasal Cannula 3.00 I & O 03/05/19 07:00 Intake Total 500 ml Output Total 2450 ml Balance -1950 ml Capillary Refill : Less Than 3 Seconds General Appearance: No Apparent Distress, WD/WN HEENT: Pharynx Normal, Moist Mucous Membranes, Other Respiratory: Lungs Clear, Normal Breath Sounds, No Respiratory Distress Cardiovascular: Regular Rate, Rhythm, No Edema, No Murmur Peripheral Pulses: 2+ Radial Pulses (R), 2+ Radial Pulses (L) Gastrointestinal: soft, no organomegaly, tenderness (diffusely tender to palpation), other (Midline incision, wound VAC in place, ileostomy with green output) Neurologic/Psychiatric: Disoriented Skin: Normal Color, Warm/Dry Results Lab Laboratory Tests 03/04/19 17:16: Glucometer 137H 03/04/19 20:40: Glucometer 137H 03/05/19 03:00: White Blood Count 13.2H, Red Blood Count 3.54L, Hemoglobin 11.4L, Hematocrit 36, Mean Corpuscular Volume 100H, Mean Corpuscular Hemoglobin 32, Mean Corpuscular Hemoglobin Concent 32, Red Cell Distribution Width 14.5, Platelet Count 252, Mean Platelet Volume 10.0, Neutrophils (%) (Auto) 87H, Lymphocytes (%) (Auto) 7L , Monocytes (%) (Auto) 6, Eosinophils (%) (Auto) 0, Basophils (%) (Auto) 0, Neutrophils # (Auto) 11.4H, Lymphocytes # (Auto) 1.0, Monocytes # (Auto) 0.8, Eosinophils # (Auto) 0.0, Basophils # (Auto) 0.0, Sodium Level 152H, Potassium Level 4.2, Chloride Level 113H, Carbon Dioxide Level 27, Anion Gap 12, Blood Urea Nitrogen 58H, Creatinine 1.58H, Estimat Glomerular Filtration Rate 32, BUN/Creatinine Ratio 37, Glucose Level 167H, Calcium Level 7.7L, Phosphorus Level 4.6, Magnesium Level 1.8 03/05/19 03:35: Blood Gas Puncture Site LEFT RADIAL, Blood Gas Patient Temperature 37.2, Art erial Blood pH 7.51H, Arterial Blood Partial Pressure CO2 34L, Arterial Blood Partial Pressure O2 57L, Arterial Blood HCO3 27, Arterial Blood Total CO2 28.5, Arterial Blood Oxygen Saturation 91L, Arterial Blood Base Excess 4.4H, Kenny Test POSITIVE, Blood Gas Ventilator Setting NO, Blood Gas Inspired Oxygen 30% 03/05/19 11:18: Glucometer 144H Microbiology 02/24/19 Blood Culture - Final, Complete Marilia albicans See Comments 02/25/19 Gram Stain - Final, Complete 02/25/19 Sputum Culture - Final, Complete No growth 02/24/19 Urine Culture - Final, Complete NO GROWTH 03/03/19 Catheter Tip Culture - Preliminary, Resulted No growth Assessment/Plan Assessment/Plan Assessment/Plan Pt to get up in chair, will start Ensure protein shakes, PT to work with aggressively. Pt encouraged to increase PO and use IS. Clinical Quality Measures DVT/VTE Risk/Contraindication: Risk Factor Score Per Nursin RFS Level Per Nursing on Admit: 4+=Very High MISSY WILLETT DO 03/05/19 1710: Subjective Time Seen by a Provider: 12:04 Subjective/Events-last exam I saw pt at noon and then again at 16:14, she looked tired this afternoon and was confused but now seems more alert. Has some minimal-moderate abdominal pain. Family at bedside. Complains that her mouth is dry. Review of Systems Pulmonary: No Dyspnea, No Cough Cardiovascular: No: Chest Pain, Palpitations Objective Exam Gastrointestinal: tenderness (diffusely tender to palpation), other (Midline incision, wound VAC in place, ileostomy with green output) Assessment/Plan Assessment/Plan Assessment/Plan Pneumoperitoneum CXR from today had large amount of free air and looking back so did yesterday's; however, prior to that there was no free air in abdomen. CT ordered and it confirms large amount of free air and free fluids. Discussed with family and pt; there is a hole somewhere but I am not sure where. She needs to be reopened and hole repaired. Consent obtained. Went over risks and complications not limited to pain, bleeding, infection, scar damage to bowel and need for further procedure. All questions answered to their satisfaction. Supervisory-Addendum Brief Verification & Attestation Participated in pt care: history, MDM, physical Personally performed: exam, history, MDM Care discussed with: Medical Student Procedures: n/a Verification and Attestation of Medical Student E/M Service A medical student performed and documented this service in my presence. I reviewed and verified all information documented by the medical student and made modifications to such information, when appropriate. I personally performed the physical exam and medical decision making. Missy Willett, Mar 05, 2019,17:10 BRITTANY RHODES,MED STUDENT Mar 05, 2019 16:35 MISSY JAMES DO Mar 05, 2019 17:10 POS
[2019-03-05] MEDS ORDERED: VASOPRESSIN INJECTION 20 UNIT/ML VIAL ONE (18:23)
[2019-03-05] MEDS ORDERED: ALBUMIN 25% 25 GM/100 ML 100 ML IV ONE (18:24)
[2019-03-05] MEDS ORDERED: NEOSTIGMINE 3 MG/3 ML VIAL ONE (19:21)
[2019-03-05] MEDS ORDERED: GLYCOPYRROLATE 0.2 MG/ML (ROBINUL) 2 ML VIAL ONE (19:21)
[2019-03-05] MEDS ORDERED: PHENYLEPHRINE 100 MCG/ML 10 ML (ANESTHESIA) SYR ONE (19:40)
[2019-03-05] MEDS ORDERED: MIDAZOLAM 2 MG/2 ML (VERSED) VIAL ONE (19:40)
--- NOTE | 2019-03-05 19:41 | Progress Note-Post Operative ---
Post-Operative Progess Note Surgeon (s)/Retail Supervisor (s) Surgeon MISSY MONTEJO DO Retail Supervisor: Noel Pre-Operative Diagnosis Pneumoperitoneum, Hydroperitoneum, B/L Pleural Effusion, Resp Failure Post-Operative Diagnosis Perforation at anastomotic site Intraabdominal abscess Procedure & Operative Findings Date of Procedure 03/05/19 Procedure Performed/Findings SBR with abd washout Drainage of intraabdominal abscess Anesthesia Type GET Estimated Blood Loss Estimated blood loss (mL): 200 Specimens/Packing Specimens Removed abscess culture MISSY MONTEJO DO Mar 05, 2019 19:40 POS
[2019-03-05] MEDS ORDERED: MEROPENEM 1,000 MG in WATER (STERILE) FOR INJECTION 20 ML IV SCH (19:45)
[2019-03-05] MEDS ORDERED: PROPOFOL DRIP (ICU) 100 ML IV ONE (19:58)
--- NOTE | 2019-03-05 21:00 | Diagnostic Imaging Report ---
INDICATION: Postop. Comparison with 3:13 a.m. exam. FINDINGS: ET tube now present overlying the tracheal shadow with the tip just above the aortic arch. Right PICC line is present with tip at the cavoatrial junction. Lungs are well-aerated with minimal discoid atelectasis left lung base. No infiltrate. Heart is not enlarged. IMPRESSION: Satisfactory postop chest with ET tube and PICC line in good position. Dictated by: Dictated on workstation # [id number]
[2019-03-05 21:14] LABS: ABG BASE EXCESS 3.3 MMOL/L (-2.5-2.5); ABG OXYGEN SATURATION 99 % (94-100); ABG PCO2 45 MMHG (35-45); ABG PH 7.41 (7.37-7.43); ABG PO2 110 MMHG (79-93); ABG TCO2 29.6 MMOL/L (21.0-31.0)
[2019-03-05] MEDS: PROPOFOL DRIP (ICU) 100 ML IV SCH (21:15)
[2019-03-05 21:23] LABS: ALLENS TEST ART LINE; INSPIRED O2 10; PATIENT TEMP 35.2; VENTILATOR YES
[2019-03-05] MEDS: MEROPENEM 500 MG/SWFI 10 ML IV PUSH IV SCH ×2 (21:44)
--- NOTE | 2019-03-05 22:30 | NUR ---
100 ML OF URINE OP NOTED. E-ICU NOTIFIED.
[2019-03-06] VITALS (30 sets, daily range): BP systolic 94–139; BP diastolic 30–47
[2019-03-06] MEDS: meTOprolol 5 MG/5 ML (LOPRESSOR) VIAL IV SCH ×4 (00:20→18:25)
[2019-03-06] MEDS: D5W 1000 ML IV SOLUTION 1,000 ML IV SCH ×3 (00:20→18:25)
[2019-03-06] MEDS: ENOXAPARIN 100 MG/1 ML (LOVENOX) SYR SC SCH (00:24)
[2019-03-06] MEDS: RT-IPRATROPIUM (ATROVENT) 0.5MG/2.5ML AMP IH SCH ×5 (01:14→21:23)
[2019-03-06] MEDS: MEROPENEM 500 MG/SWFI 10 ML IV PUSH IV SCH ×6 (01:47→18:25)
[2019-03-06 02:03] LABS: BASOPHILS % (AUTO) 0 % (0-10); EOSINOPHILS % (AUTO) 0 % (0-10); HEMATOCRIT 23 % (35-52); HEMOGLOBIN 7.2 G/DL (11.5-16.0); LYMPHOCYTES # (AUTO) 0.7 X 10^3 (1.0-4.0); LYMPHOCYTES % (AUTO) 8 % (12-44); MEAN CORPUSCULAR HEMOGLOBIN 32 PG (25-34); MEAN CORPUSCULAR HGB CONC 32 G/DL (32-36); MEAN CORPUSCULAR VOLUME 102 FL (80-99); MEAN PLATELET VOLUME 10.2 FL (7.4-10.4); MONOCYTES # (AUTO) 0.5 X 10^3 (0.0-1.0); MONOCYTES % (AUTO) 6 % (0-12); NEUTROPHILS # (AUTO) 7.1 X 10^3 (1.8-7.8); NEUTROPHILS % (AUTO) 86 % (42-75); PLATELET COUNT 175 10^3/uL (130-400); RED CELL DISTRIBUTION WIDTH 14.3 % (10.0-14.5); WHITE BLOOD COUNT 8.3 10^3/uL (4.3-11.0)
[2019-03-06 02:20] LABS: CREATININE SERUM 1.54 MG/DL (0.60-1.30); PHOSPHORUS 5.5 MG/DL (2.3-4.7); POTASSIUM 4.1 MMOL/L (3.6-5.0)
[2019-03-06 03:12] LABS: ALBUMIN 1.7 GM/DL (3.2-4.5); BILIRUBIN,DIRECT 1.1 MG/DL (0.0-0.3); BILIRUBIN,INDIRECT 0.1 MG/DL; BILIRUBIN,TOTAL 1.2 MG/DL (0.1-1.0); TOTAL PROTEIN 3.8 GM/DL (6.4-8.2)
[2019-03-06 03:36] LABS: ABG BASE EXCESS 3.4 MMOL/L (-2.5-2.5); ABG OXYGEN SATURATION 95 % (94-100); ABG PCO2 40 MMHG (35-45); ABG PH 7.45 (7.37-7.43); ABG PO2 81 MMHG (79-93); ABG TCO2 28.7 MMOL/L (21.0-31.0)
[2019-03-06 03:37] LABS: HEMOGLOBIN 7.4 G/DL (11.5-16.0)
[2019-03-06] MEDS: MAGNESIUM 1 GM/100 ML IVPB 100 ML IV SCH (03:38)
[2019-03-06] MEDS: POTASSIUM CL 10MEQ/50ML IVPB 50 ML IV SCH (03:38)
[2019-03-06] MEDS: KCL 20 MEQ TAB (K-DUR) PO SCH (03:38)
[2019-03-06 03:40] LABS: ALLENS TEST ARTLINE; INSPIRED O2 10; VENTILATOR YES
[2019-03-06 03:56] LABS: ALBUMIN 1.8 GM/DL (3.2-4.5); BILIRUBIN,DIRECT 0.9 MG/DL (0.0-0.3); BILIRUBIN,INDIRECT 0.3 MG/DL; BILIRUBIN,TOTAL 1.2 MG/DL (0.1-1.0); TOTAL PROTEIN 3.9 GM/DL (6.4-8.2)
[2019-03-06] MEDS ORDERED: NS IV 500 ML 500 ML ONE (04:01)
--- NOTE | 2019-03-06 05:00 | NUR ---
CONTINUED LOW URINE OUTPUT NOTED. DR. THOMPSON NOTIFIED. SEE ORDER HISTORY.
[2019-03-06] MEDS ORDERED: LACTATED RINGERS 1,000 ML IV SCH ×2 (05:15)
--- NOTE | 2019-03-06 05:18 | Pulmonary Progress Note ---
Subjective Time Seen by a Provider: 05:34 Subjective/Events-last exam PT went back to surgery yesterday secondary to perf. Currently sedated on vent. Sepsis Event Evaluation Height, Weight, BMI Height: 5'5.00" Weight: 160lbs. 0.0oz. [id number]; 21.79 BMI Method:Stated Focused Exam Lactate Level 03/06/19 02:00: Lactic Acid Level 2.27*H Time of Focused Exam: 22:00 Lactic Acid Level Laboratory Tests Test 03/06/19 02:00 Lactic Acid Level 2.27 MMOL/L (0.50-2.00) *H Exam Exam Vital Signs Date Time Temp Pulse Resp B/P (MAP) Pulse Ox O2 Delivery O2 Flow Rate FiO2 03/06/19 04:31 36.2 87 12 106/33 100 Mechanical Ventilator 30 03/06/19 04:30 Mechanical Ventilator 30.00 03/06/19 04:17 36.2 87 15 104/33 100 Mechanical Ventilator 40 03/06/19 04:00 100 Mechanical Ventilator 40 03/06/19 04:00 84 15 94/32 (52) 100 Mechanical Ventilator 40.00 03/06/19 03:00 81 14 123/35 (64) 100 Mechanical Ventilator 40.00 03/06/19 02:00 81 13 134/36 (68) 100 Mechanical Ventilator 40.00 03/06/19 01:14 75 13 100 40 03/06/19 01:00 76 03/06/19 01:00 76 13 130/31 (64) 100 Mechanical Ventilator 40.00 03/06/19 00:42 Mechanical Ventilator 40.00 03/06/19 00:00 100 Mechanical Ventilator 50 03/06/19 00:00 69 136/30 (65) 100 Mechanical Ventilator 50.00 03/05/19 23:31 36.0 Mechanical Ventilator 50.00 03/05/19 23:00 66 22 139/33 (68) 100 Mechanical Ventilator 75.00 03/05/19 22:00 68 12 141/34 (69) 100 Mechanical Ventilator 75.00 03/05/19 21:45 73 11 100 60 03/05/19 21:15 35.13885 66 18 155/34 100 Mechanical Ventilator 75.00 03/05/19 21:00 66 53 170/39 (82) 100 Mechanical Ventilator 75.00 03/05/19 21:00 100 Mechanical Ventilator 75 03/05/19 20:47 35.2 66 18 155/34 (74) 100 Mechanical Ventilator 75.00 03/05/19 20:35 Mechanical Ventilator 03/05/19 20:35 36.2 18 100 Mechanical Ventilator 03/05/19 20:30 Mechanical Ventilator 03/05/19 20:30 10 97/34 (55) 100 Mechanical Ventilator 03/05/19 20:20 10 106/35 (58) 100 Mechanical Ventilator 03/05/19 20:15 Mechanical Ventilator 03/05/19 20:10 10 95/35 (55) 96 Mechanical Ventilator 03/05/19 20:00 60 10 178/42 (87) 100 Mechanical Ventilator 75.00 03/05/19 20:00 10 122/40 (67) 100 Mechanical Ventilator 03/05/19 20:00 Mechanical Ventilator 03/05/19 19:55 62 9 173/52 (92) 100 Mechanical Ventilator 75.00 03/05/19 19:54 62 18 100 75 03/05/19 19:51 64 03/05/19 19:49 36.9 10 95/23 (47) 100 Mechanical Ventilator 03/05/19 19:49 Mechanical Ventilator 03/05/19 17:00 92 19 136/56 (82) 97 Nasal Cannula 5.00 03/05/19 16:00 92 22 155/58 (90) 96 Nasal Cannula 5.00 03/05/19 16:00 98 Nasal Cannula 5.00 03/05/19 15:50 36.2 03/05/19 15:00 89 18 146/56 (86) 95 Nasal Cannula 5.00 03/05/19 14:38 94 Nasal Cannula 3.00 03/05/19 14:00 93 24 137/63 (87) 94 Nasal Cannula 5.00 03/05/19 13:00 82 16 124/54 (77) 95 Nasal Cannula 5.00 03/05/19 12:26 85 03/05/19 12:00 74 15 107/48 (67) 95 Nasal Cannula 5.00 03/05/19 12:00 98 Nasal Cannula 5.00 03/05/19 11:00 87 28 146/58 (87) 95 Nasal Cannula 5.00 03/05/19 10:00 90 18 137/54 (81) 97 Nasal Cannula 5.00 03/05/19 09:00 102 25 156/60 (92) 95 Nasal Cannula 5.00 03/05/19 08:00 85 20 142/51 (81) 95 Nasal Cannula 5.00 03/05/19 08:00 98 Nasal Cannula 5.00 03/05/19 08:00 36.6 03/05/19 07:03 96 Nasal Cannula 3.00 03/05/19 07:00 88 03/05/19 07:00 86 25 149/57 (87) 97 NIV Bilevel 30.00 03/05/19 06:51 98 Nasal Cannula 3.00 03/05/19 06:00 93 23 129/51 (77) 96 NIV Bilevel 30.00 I & O 03/06/19 07:00 Intake Total 1050 ml Output Total 575 ml Balance 475 ml Height & Weight Height: 5'5.00" Weight: 160lbs. 0.0oz. 72.287306ro; 21.79 BMI Method:Stated General Appearance: No Apparent Distress, WD/WN, Other (sedated on vent) HEENT: Pharynx Normal, Moist Mucous Membranes, Other Respiratory: Lungs Clear, Normal Breath Sounds, No Respiratory Distress Cardiovascular: Regular Rate, Rhythm, No Edema, No Murmur Capillary Refill: Less Than 3 Seconds Peripheral Pulses: 2+ Radial Pulses (R), 2+ Radial Pulses (L) Gastrointestinal: soft, no organomegaly, other (Midline incision, wound VAC in place, ileostomy with green output) Extremity: Normal Capillary Refill Skin: Normal Color, Warm/Dry Results Lab Laboratory Tests 03/05/19 03:00 03/06/19 02:00 03/06/19 03:30 Assessment/Plan Assessment/Plan Acute respiratory failure with hypoxia -D/C propofol -Will start weaning vent Fungemia -Possible [place] pending -Echo shows diastolic dysfunction -Diflucan Hypotension with anemia -Agree with 1 unit PRBC from EICU --Give 1 liter bolus of LR . -Continue IVF D5W for now Acute renal failure with Oliguria -IVF and continue to monitor Grade 1 diastolic dysfunction -Monitor Afib - currently sinus -Pt is getting lovenox Therapeutic dosing perforated abdominal viscus s/p repeat surgery with resection Hypernatremia -Secondary to dehydration -Continue IVF DM II Debility -PT/OT protein jorge malnutrition JAZMYNE THOMPSON DO Mar 06, 2019 05:18 POS
[2019-03-06 06:14] LABS: ABG BASE EXCESS 2.4 MMOL/L (-2.5-2.5); ABG OXYGEN SATURATION 94 % (94-100); ABG PCO2 40 MMHG (35-45); ABG PH 7.43 (7.37-7.43); ABG PO2 60 MMHG (79-93); ABG TCO2 27.7 MMOL/L (21.0-31.0)
[2019-03-06 06:21] LABS: ALLENS TEST ARTLINE; INSPIRED O2 30%; PATIENT TEMP 36.1; VENTILATOR YES
[2019-03-06 06:34] LABS: ALBUMIN 1.7 GM/DL (3.2-4.5); BILIRUBIN,TOTAL 1.4 MG/DL (0.1-1.0); CREATININE SERUM 1.69 MG/DL (0.60-1.30); MAGNESIUM 1.8 MG/DL (1.6-2.4); PHOSPHORUS 5.4 MG/DL (2.3-4.7); POTASSIUM 4.4 MMOL/L (3.6-5.0); TOTAL PROTEIN 3.9 GM/DL (6.4-8.2)
[2019-03-06] MEDS: inSUlin ASPART (NovoLOG) 1 UNIT/0.01 ML (CHARGE PER UNIT) SQ SCH ×4 (06:43→20:34)
[2019-03-06] MEDS: morphine INJ 4 MG/ML 1 ML (VIAL/SYRINGE) IVP PRN ×5 (06:53→21:59)
--- NOTE | 2019-03-06 07:15 | Diagnostic Imaging Report ---
INDICATION: Shortness of breath COMPARISON: 03/05/19 FINDINGS: Single view of the chest demonstrates stable support lines. There was stable basilar atelectasis with trace effusion. There was no pneumothorax. The heart is normal. Osseous structures are stable. IMPRESSION: Unchanged basilar atelectasis with small effusions. Stable support lines. Dictated by: Dictated on workstation # [id number]
--- NOTE | 2019-03-06 07:54 | Progress Note - Surgery ---
BRITTANY RHODES,MED STUDENT 03/06/19 0754: Subjective Date Seen by a Provider: Mar 06, 2019 Time Seen by a Provider: 07:15 Subjective/Events-last exam Patient was weaned off ventilator this morning around 0630. Urine output decreased overnight and she was found to be hypotensive and anemic, so 1 unit PRBCs was given as well as 1L bolus of LR. Her only complaint at this time is abdominal pain. Focused Exam Lactate Level 03/06/19 02:00: Lactic Acid Level 2.27*H 03/06/19 06:00: Lactic Acid Level 2.56*H Time of Focused Exam: 22:00 Lactic Acid Level Laboratory Tests Test 03/06/19 06:00 Lactic Acid Level 2.56 MMOL/L (0.50-2.00) *H Objective Exam Vital Signs Date Time Temp Pulse Resp B/P (MAP) Pulse Ox O2 Delivery O2 Flow Rate FiO2 03/06/19 07:43 97 Nasal Cannula 2.00 03/06/19 07:41 36.7 03/06/19 06:09 93 23 100 03/06/19 06:00 83 19 109/34 (59) 100 Mechanical Ventilator 30.00 03/06/19 05:58 36.1 86 20 116/36 100 Mechanical Ventilator 30 03/06/19 05:00 86 18 104/33 (56) 100 Mechanical Ventilator 30.00 03/06/19 04:31 36.2 87 12 106/33 100 Mechanical Ventilator 30 03/06/19 04:30 Mechanical Ventilator 30.00 03/06/19 04:17 36.2 87 15 104/33 100 Mechanical Ventilator 40 03/06/19 04:00 100 Mechanical Ventilator 40 03/06/19 04:00 84 15 94/32 (52) 100 Mechanical Ventilator 40.00 03/06/19 03:00 81 14 123/35 (64) 100 Mechanical Ventilator 40.00 03/06/19 02:00 81 13 134/36 (68) 100 Mechanical Ventilator 40.00 03/06/19 01:14 75 13 100 40 03/06/19 01:00 76 03/06/19 01:00 76 13 130/31 (64) 100 Mechanical Ventilator 40.00 03/06/19 00:42 Mechanical Ventilator 40.00 03/06/19 00:00 100 Mechanical Ventilator 50 03/06/19 00:00 69 136/30 (65) 100 Mechanical Ventilator 50.00 03/05/19 23:31 36.0 Mechanical Ventilator 50.00 03/05/19 23:00 66 22 139/33 (68) 100 Mechanical Ventilator 75.00 03/05/19 22:00 68 12 141/34 (69) 100 Mechanical Ventilator 75.00 03/05/19 21:45 73 11 100 60 03/05/19 21:15 35.77853 66 18 155/34 100 Mechanical Ventilator 75.00 03/05/19 21:00 66 53 170/39 (82) 100 Mechanical Ventilator 75.00 03/05/19 21:00 100 Mechanical Ventilator 75 03/05/19 20:47 35.2 66 18 155/34 (74) 100 Mechanical Ventilator 75.00 03/05/19 20:35 Mechanical Ventilator 03/05/19 20:35 36.2 18 100 Mechanical Ventilator 03/05/19 20:30 Mechanical Ventilator 03/05/19 20:30 10 97/34 (55) 100 Mechanical Ventilator 03/05/19 20:20 10 106/35 (58) 100 Mechanical Ventilator 03/05/19 20:15 Mechanical Ventilator 03/05/19 20:10 10 95/35 (55) 96 Mechanical Ventilator 03/05/19 20:00 60 10 178/42 (87) 100 Mechanical Ventilator 75.00 03/05/19 20:00 10 122/40 (67) 100 Mechanical Ventilator 03/05/19 20:00 Mechanical Ventilator 03/05/19 19:55 62 9 173/52 (92) 100 Mechanical Ventilator 75.00 03/05/19 19:54 62 18 100 75 03/05/19 19:51 64 03/05/19 19:49 36.9 10 95/23 (47) 100 Mechanical Ventilator 03/05/19 19:49 Mechanical Ventilator 03/05/19 17:00 92 19 136/56 (82) 97 Nasal Cannula 5.00 03/05/19 16:00 92 22 155/58 (90) 96 Nasal Cannula 5.00 03/05/19 16:00 98 Nasal Cannula 5.00 03/05/19 15:50 36.2 03/05/19 15:00 89 18 146/56 (86) 95 Nasal Cannula 5.00 03/05/19 14:38 94 Nasal Cannula 3.00 03/05/19 14:00 93 24 137/63 (87) 94 Nasal Cannula 5.00 03/05/19 13:00 82 16 124/54 (77) 95 Nasal Cannula 5.00 03/05/19 12:26 85 03/05/19 12:00 74 15 107/48 (67) 95 Nasal Cannula 5.00 03/05/19 12:00 98 Nasal Cannula 5.00 03/05/19 11:00 87 28 146/58 (87) 95 Nasal Cannula 5.00 03/05/19 10:00 90 18 137/54 (81) 97 Nasal Cannula 5.00 03/05/19 09:00 102 25 156/60 (92) 95 Nasal Cannula 5.00 03/05/19 08:00 85 20 142/51 (81) 95 Nasal Cannula 5.00 03/05/19 08:00 98 Nasal Cannula 5.00 03/05/19 08:00 36.6 I & O 03/06/19 07:00 Intake Total 1050 ml Output Total 585 ml Balance 465 ml Capillary Refill : Less Than 3 SecondsLess Than 3 Seconds General Appearance: No Apparent Distress, WD/WN Respiratory: Lungs Clear, No Respiratory Distress Cardiovascular: Regular Rate, Rhythm, No Murmur Peripheral Pulses: 2+ Radial Pulses (R), 2+ Radial Pulses (L) Gastrointestinal: soft, other (midline incision with dressing in place) Skin: Normal Color, Warm/Dry Results Lab Laboratory Tests 03/05/19 11:18: Glucometer 144H 03/05/19 16:27: Glucometer 177H 03/05/19 21:04: Blood Gas Puncture Site RT ARTLINE, Blood Gas Patient Temperature 35.2, Arterial Blood pH 7.41, Arterial Blood Partial Pressure CO2 45, Arterial Blood Partial Pressure O2 110H, Arterial Blood HCO3 28H, Arterial Blood Total CO2 29.6, Arterial Blood Oxygen Saturation 99, Arterial Blood Base Excess 3.3H, Kenny Test ART LINE, Blood Gas Ventilator Setting YES, Blood Gas Inspired Oxygen 10 03/05/19 21:48: Glucometer 145H 03/06/19 02:00: White Blood Count 8.3, Red Blood Count 2.23L, Hemoglobin 7.2#L, Hematocrit 23L, Mean Corpuscular Volume 102H, Mean Corpuscular Hemoglobin 32, Mean Corpuscular Hemoglobin Concent 32, Red Cell Distribution Width 14.3, Platelet Count 175, Mean Platelet Volume 10.2, Neutrophils (%) (Auto) 86H, Lymphocytes (%) (Auto) 8L , Monocytes (%) (Auto) 6, Eosinophils (%) (Auto) 0, Basophils (%) (Auto) 0, Neutrophils # (Auto) 7.1, Lymphocytes # (Auto) 0.7L, Monocytes # (Auto) 0.5, Eosinophils # (Auto) 0.0, Basophils # (Auto) 0.0, Sodium Level 146H, Potassium Level 4.1, Chloride Level 112H, Carbon Dioxide Level 24, Anion Gap 10, Blood Urea Nitrogen 62H, Creatinine 1.54H, Estimat Glomerular Filtration Rate 33, BUN/Creatinine Ratio 40, Glucose Level 242H, Lactic Acid Level 2.27*H, Calcium Level 7.0L, Phosphorus Level 5.5H, Magnesium Level 2.0, Total Bilirubin 1.2H, Direct Bilirubin 1.1H, Indirect Bilirubin 0.1, Aspartate Amino Transf (AST/SGOT) 50H, Alanine Aminotransferase (ALT/SGPT) 29, Alkaline Phosphatase 34L, Total Protein 3.8L, Albumin 1.7L 03/06/19 03:30: Hemoglobin 7.4L, Hematocrit 23L, Total Bilirubin 1.2H, Direct Bilirubin 0.9H, Indirect Bilirubin 0.3, Aspartate Amino Transf (AST/SGOT) 46H, Alanine Aminotransferase (ALT/SGPT) 30, Alkaline Phosphatase 31L, Total Protein 3.9L, Albumin 1.8L, Blood Gas Puncture Site RIGHT RADIAL, Blood Gas Patient Temperature 36.0, Arterial Blood pH 7.45H, Arterial Blood Partial Pressure CO2 40, Arterial Blood Partial Pressure O2 81, Arterial Blood HCO3 28H, Arterial Blood Total CO2 28.7, Arterial Blood Oxygen Saturation 95, Arterial Blood Base Excess 3.4H, Kenny Test ARTLINE, Blood Gas Ventilator Setting YES, Blood Gas Inspired Oxygen 03/06/19 06:00: Sodium Level 144, Potassium Level 4.4, Chloride Level 111H, Carbon Dioxide Level 24, Anion Gap 9, Blood Urea Nitrogen 62H, Creatinine 1.69H, Estimat Glomerular Filtration Rate 30, BUN/Creatinine Ratio 37, Glucose Level 234H, Lactic Acid Level 2.56*H, Calcium Level 7.0L, Phosphorus Level 5.4H, Magnesium Level 1.8, Total Bilirubin 1.4H, Aspartate Amino Transf (AST/SGOT) 47H, Alanine Aminotransferase (ALT/SGPT) 31, Alkaline Phosphatase 36L, Total Protein 3.9L, Albumin 1.7L, Blood Gas Puncture Site RIGHT RADIAL, Blood Gas Patient Temperature 36.1, Arterial Blood pH 7.43, Arterial Blood Partial Pressure CO2 40, Arterial Blood Partial Pressure O2 60L, Arterial Blood HCO3 27, Arterial Blood Total CO2 27.7, Arterial Blood Oxygen Saturation 94, Arterial Blood Base Excess 2.4, Kenny Test ARTLINE, Blood Gas Ventilator Setting YES, Blood Gas Inspired Oxygen 30%, Corrected Calcium 8.8 03/06/19 06:36: Glucometer 187H Microbiology 02/24/19 Blood Culture - Final, Complete Marilia albicans See Comments 02/25/19 Gram Stain - Final, Complete 02/25/19 Sputum Culture - Final, Complete No growth 02/24/19 Urine Culture - Final, Complete NO GROWTH 03/03/19 Catheter Tip Culture - Preliminary, Resulted No growth Assessment/Plan Assessment/Plan Assessment/Plan Pneumoperitoneum s/p Exploratory laparotomy, small bowel resection and repair Consider starting clear liquids today Monitor H/H Start PT when able Clinical Quality Measures DVT/VTE Risk/Contraindication: Risk Factor Score Per Nursin RFS Level Per Nursing on Admit: 4+=Very High MISSY WILLETT DO 03/06/19 1730: Subjective Time Seen by a Provider: 10:22 Subjective/Events-last exam Pt seen and examined, looks good off vent. Assessment/Plan Assessment/Plan Assessment/Plan Replace wound VAC today. Increase activity. Supervisory-Addendum Brief Verification & Attestation Participated in pt care: history, MDM, physical Personally performed: exam, history, MDM Care discussed with: Medical Student Procedures: n/a Verification and Attestation of Medical Student E/M Service A medical student performed and documented this service in my presence. I reviewed and verified all information documented by the medical student and made modifications to such information, when appropriate. I personally performed the physical exam and medical decision making. Missy Willett, Mar 06, 2019,17:30 BRITTANY RHODES,MED STUDENT Mar 06, 2019 07:54 MISSY JAMES DO Mar 06, 2019 17:30 POS
[2019-03-06] MEDS: FLUCONAZOLE 200 MG/NACL 100 ML (PRE-MIX) IV SCH (09:18)
[2019-03-06] MEDS: PANTOPRAZOLE 40 MG (PROTONIX) VIAL IV SCH (09:19)
[2019-03-06 09:31] LABS: HEMOGLOBIN 8.7 G/DL (11.5-16.0)
[2019-03-06] MEDS: PROPOFOL DRIP (ICU) 100 ML IV SCH ×2 (09:33→20:34)
[2019-03-06] MEDS: RT-FLUTICASONE 220 MCG (FLOVENT) PER PUFF INH SCH ×2 (09:59→18:08)
--- NOTE | 2019-03-06 11:11 | Occupational Ther Daily Note ---
OT Current Status-Daily Note Subjective Pt alert, lying in bed. Asked nrsg if pt was okay for therapy, nrsg stated that it was okay for bed exercises not sitting on EOB. Pt stated that her mouth was dry. Mental Status/Objective Patient Orientation: Person, Place, Time, Situation Attachments: Drains, Wing Catheter, IV, Oxygen, Telemetry ADL-Treatment Therapy Code Descriptions/Definitions Functional [place] Measure: 0=Not Assessed/NA 4=Minimal Assistance 1=Total Assistance 5=Supervision or Setup 2=Maximal Assistance 6=Modified [place] 3=Moderate Assistance 7=Complete IndependenceSCALE: Activities may be completed with or without assistive devices. 6-Tfpmhaedcn-uueinmn completes the activity by him/herself with no assistance from a helper. 5-Set-up or Clean-up Assistance-helper sets up or cleans up; patient completes activity. [place] assists only prior to or following the activity. 4-Supervision or Touching Assistance-helper provides verbal cues and/or touching/steadying and/or contact guard assistance as patient completes activity. Assistance may be provided throughout the activity or intermittently. 3-Partial/Moderate Assistance-helper does LESS THAN HALF the effort. [place] lifts, holds or supports trunk or limbs, but provides less than half the effort. 2-Substantial/Maximal Assistance-helper does MORE THAN HALF the effort. [place] lifts or holds trunk or limbs and provides more than half the effort. 3-Edokdtvwy-jgeqkt does ALL the effort. Patient does none of the effort to complete the activity. Or, the assistance of 2 or more helpers is required for the patient to complete the activity. If activity was not attempted, code reason: 7-Patient Refused. 9-Not Applicable-not attempted and the patient did not perform the activity before the current illness, exacerbation or injury. 10-Not Attempted due to Environmental Limitations-(lack of equipment, weather restraints, etc.). 88-Not Attempted due to Medical Conditions or Safety Concerns. Other Treatment Asked nrsg about swabs for pt's mouth, nrsg okayed. Pt attempted to use R UE to hold onto swab, unable to raise forearm off of bed. Assist to cleanse mouth. APROM for all UE joints. Edema noted on dorsum B hands, APROM to hands and light edema massage. After therapy, pt lying in bed with call light/phone in reach. All needs met in room. OT Short Term Goals Short Term Goals Eating(FIM): 3 Grooming(FIM): 2 Upper Body Dressing(FIM): 2 Lower Body Dressing(FIM): 2 Additional Short Term Goals: 1-Demonstrate ADL Tasks, 2-Verbalize Understanding, 3-ImproveStrength/José 1=Demonstrate adherence to instructed precautions during ADL tasks. 2=Patient will verbalize/demonstrate understanding of assistive devices/modifications for ADL. 3=Patient will improve strength/tolerance for activity to enable patient to perform ADL's. OT Ceramic Tiler Goals Fpc Goals Eating (QC): 4 Oral Hygiene (QC): 4 Shower/Bathe Self (QC): 4 Upper Body Dressing (QC): 4 Lower Body Dressing (QC): 3 On/Off Footwear (QC): 4 Toileting Hygiene (QC): 3 Toilet/Commode Transfer (QC): 4 Additional Goals: 1-Demonstrate ADL Tasks, 2-Verbalize Understanding, 3- ImproveStrength/José 1=Demonstrate adherence to instructed precautions during ADL tasks. 2=Patient will verbalize/demonstrate understanding of assistive devices/modifications for ADL. 3=Patient will improve strength/tolerance for activity to enable patient to perform ADL's. OT Education/Plan Problem List/Assessment Assessment: Decreased Activ Tolerance, Decreased Safety Aware, Decreased UE Strength, Dependent Transfers, Impaired Bed Mobility, Impaired I ADL's, Impaired Self-Care Skills, Restricted Funct UE ROM Discharge Recommendations Plan/Recommendations: Continue POC Treatment Plan/Plan of Care Patient would benefit from OT for education, treatment and training to promote independence in ADL's, mobility, safety and/or upper extremity function for ADL's. Plan of Care: ADL Retraining, Caregiver Training, Cognitive Retraining, Concurrent Therapy, Functional Mobility, UE Funct Exercise/Act Treatment Duration: Mar 18, 2019 Frequency: 5 times per week Estimated Hrs Per Day: .25 hour per day Rehab Potential: Fair Time/GCodes Start Time: 09:38 Stop Time: 09:53 Total Time Billed (hr/min): 15 Billed Treatment Time 1 visit-FA 1 (15 min) GEOVANNI FLORES Mar 06, 2019 11:11 POS
--- NOTE | 2019-03-06 12:06 | Cardiology Progress Note ---
Subjective Date Seen by Provider: Mar 06, 2019 Time Seen by Provider: 11:45 Subjective/Events-last exam Patient extubated this morning. Denies any chest pain Review of Systems General: Fatigue, Malaise HEENT: No Head Aches, No Visual Changes, No Eye Pain, No Ear Pain, No Dysphasia, No Sinus Congestion, No Post Nasal Drip, No Sore Throat, No Other Pulmonary: Dyspnea, Cough; No Pleuritic Chest Pain, No Other Cardiovascular: Edema; No: Chest Pain, Palpitations, Orthopnea, Paroxysmal Noc. Dyspnea, Lt Headedness, Other Focused Exam Lactate Level 03/06/19 02:00: Lactic Acid Level 2.27*H 03/06/19 06:00: Lactic Acid Level 2.56*H Time of Focused Exam: 22:00 Objective-Cardiology Exam Last Set of Vital Signs Vital Signs 03/06/19 03/06/19 05:58 12:00 Temp 36.4 Pulse 95 Resp 27 B/P (MAP) 124/38 (66) Pulse Ox 99 O2 Delivery Nasal Cannula O2 Flow Rate 2.00 FiO2 30 Capillary Refill : Less Than 3 SecondsLess Than 3 Seconds I&O Intake and Output 03/06/19 00:00 Intake Total 1050 ml Output Total 750 ml Balance 300 ml Intake Oral 50 ml IV Total 1000 ml Output Urine Total 750 ml General: Alert, Oriented X3, Cooperative, Mild Distress HEENT: Atraumatic Neck: Supple, No Thyromegaly Lungs: Clear to Auscultation, Normal Air Movement Heart: Normal S1, Normal S2, No Murmurs, Other (Atrial fibrillation) Abdomen: No Masses, Other (Diminished bowel sounds) Extremities: No Clubbing, No Cyanosis, Normal Pulses, No Tenderness/Swelling, Other (trace edema) Skin: No Rashes Neuro: Normal Speech Psych/Mental Status: Mental Status NL Results Lab Laboratory Tests 03/06/19 02:00 03/06/19 03:30 03/06/19 06:00 03/06/19 09:15 A/P-Cardiology Admission Diagnosis Acute respiratory failure Paroxysmal atrial fibrillation Coronary artery disease Hypertension Assessment/Plan Status post respiratory failure, improved, patient extubated again this morning, had surgery yesterday. Currently on NC. Fungemia, sepsis, receiving antibiotics, echocardiogram did not show any vegetation. Hesitant to do [place] due to the recent perforated viscus. Paroxysmal atrial fibrillation, continue to monitor heart rate Labile hypertension, continue to monitor. S/p small bowel resection secondary to perf at anastomosic site, another surgery done yesterday, recovering slowly. Coronary artery disease, history of cardiac catheterization in July 2012 showing 50 percent midright coronary artery stenosis, nonobstructive disease, had a borderline disease in the midright coronary artery. Most recent cardiac catheterization done April 2018 revealed mild ectasia in the proximal LAD with mild disease in the mid LAD, small vessel disease distally, mild ectasia in the proximal circumflex artery and 40-50 percent stenosis in the mid right coronary artery, nonobstructive disease History of colon cancer, history of colon resection and colostomy in the remote past has been in remission and followed by Dr. Branham History of hyperlipidemia Carotid artery stenosis , continue to monitor as outpatient. Syncope, had a syncopal episode in October 2015 probably due to dehydration. Was in renal failure. Improved. History of thyroid nodules noted on ultrasound, followed by Dr. Branham and Dr. Simmons Diabetes mellitus, followed and managed by primary care physician. History of colon cancer, history of colostomy. Currently in remission. Followed by Dr. Branham Family history of coronary artery disease. Obstructive sleep apnea, intolerance to CPAP History of appendectomy, kidney stones, hysterectomy. Breast biopsy. Patient was seen and evaluated with Natalie, examination performed, management plan was discussed, agree with the current scribed note, I made few changes to the note using Italic font Patient is laying down in bed, complaint of fatigue and loss of energy. No chest pain. Heart is regular, lungs had bilateral rhonchi Has been having episodes of atrial fibrillation, required blood transfusion. I stopped the therapeutic level of Lovenox at this time. Monitor her H&H closely, she will need DVT prophylaxis. Continue to monitor Clinical Quality Measures DVT/VTE Risk/Contraindication: Risk Factor Score Per Nursin RFS Level Per Nursing on Admit: 4+=Very High Supervisory-Addendum Brief Supervisory Addendum Participated in pt care: history, MDM, physical Personally performed: exam, history, MDM Care discussed with: NATALIE FLANAGAN Mar 06, 2019 12:06 NAYA DUARTE MD Mar 06, 2019 13:12 POS
--- NOTE | 2019-03-06 12:08 | Physical Therapy Progress Note ---
Therapy Progress Note Pt laying Supine in bed upon arrival. Daughter arrives and pt asked to be repositioned to L sidelying. Upon pulling back pt's covers, pt's hospital gown is found dirty from what appears to be leaking from the ostomy bag & Nurse is notified. Pt is cleaned up and Wound Care will be notified because the leaking is actually from the incision. Wound Vac will be applied but PT refrains from Rx at this time. PT will check back on pt in afternoon. 1, no Rx rendered BRITTANY HARTMAN PTA Mar 06, 2019 12:08 POS
--- NOTE | 2019-03-06 13:09 | Anesthesia-General Post-Op ---
General Patient Condition Mental Status/LOC: Same as Preop Cardiovascular: Satisfactory Nausea/Vomiting: Absent Respiratory: Satisfactory Pain: Controlled Complications: Absent Post Op Complications Complications None Follow Up Care/Instructions Patient Instructions None needed. Anesthesia/Patient Condition Patient Condition Patient is doing well, no complaints, stable vital signs, no apparent adverse anesthesia problems. No complications reported per nursing. D/C home per [facility] Criteria: No VANNESSA LOVE CRNA Mar 06, 2019 13:09 POS
--- NOTE | 2019-03-06 13:58 | Physical Therapy Progress Note ---
Therapy Progress Note Upon arrival ([id number]), Wound Care is applying Wound Vac. Pt & daughter asked to let pt rest this afternoon and PT can check on pt tomorrow for Rx. 1, no Rx rendered BRITTANY HARTMAN PTA Mar 06, 2019 13:58 POS
--- NOTE | 2019-03-06 14:00 | ST Dysphagia Evaluation ---
Speech Evaluation-General Medical Diagnosis post op complications/bowel perforation Onset Date: Feb 24, 2019 Therapy Diagnosis Therapy Diagnosis: Oropharyngeal Dysphagia Precautions Precautions: Aspiration Precautions/Isolations: Aspiration Referral Referring Physician: Dr. Martinez Medical History Pertinent Medical History: DM, HTN, Hypothroidism Reviewed History: Yes Social History Current Living Status: Children Speech PLF/Current-Dysphagia Prior Level of Function Patient lived at the home with her children. Subjective Patient was cooperative with the Bedside Dysphagia Evaluation Oral Motor Skills Dentition: Edentalous Patient NPO pending BDE Voice Voice Phonatory-Based Quality: Breathy, Weak Voice Pitch: Normal Voice Loudness: Moderately Soft/Quiet Face Facial Symmetry: Symmetrical Oral-Facial Assessment Oral-Facial Dentition: Normal Labial Seal Description: Weak Smile: Poor Coordination Puff Cheeks: Reduced Strength Lingual Protrusion: Abnormal Lingual ROM: Abnormal Lingual Strength: Abnormal Pharynx Velopharyngeal Move.: Normal Volitional Dry Swallow: Yes Voluntary Cough: Yes Can Clear Throat Volitionally: Yes Productive Cough: No Productive Throat Clear: No Dysphagia Evaluation Consistencies Presented: Thin Liquid, Mechanical Soft, Champion Thick Liquid, Pureed Cough post thin trials Oral phase grossly within normal range, decreased bolus management of mechanical soft Pharyngeal Phase: Delayed Swallow Delayed swallow onset for all consistencies except thin. Cough/clear post swallow of 1/2 tsp thin. Funct. Velo/Pharyngeal Symptom: Cough After Swallow Thin only Dietary Recommendations: Pureed Liquid Recommendations: Champion Consistancy Swallowing Precautions: Alternate Liquids/Solids, Liquids from Spoon, No Straw, Small Bites and Sips, Sitting Upright 90 Degrees, Sitting 90 Degrees 30 Post Intake Dysphagia Evaluation Summary Patient was hospitalized due to bowel obstruction. Patient was intubated with extubation this am. Patient completed BDE with trials of thin at 1/2 tsp x2 with cough after each trial. Patient presented 1/2 tsp each of nectar consistency liquid, puree and mechanical soft. Bolus management was decreased with mechanical soft. At this time the patient will be on a Dysphagia I with nectar consistency liquids. Patient will receive skilled ST services for dysphagia. Barriers to Learning Patient is very ill. Speech Short Term Goals Short Term Goals Short Term Goals 1) Patient will tolerate least restrictive diet without s/s of aspiration at 90% or greater. 2) Patient will utilize compensatory strategies for safe oral intake at 90% or greater. Speech Care Home Goals Skin Care Specialist Goals Patient will maintain adequate nutrition/hydration via safe effective swallow function. Speech-Plan Patient/Family Goals Patient/Family Goals: Patient plans on returning home where she lives with her children. Treatment Plan Speech Therapy Treatment Plan: Continue Plan of Care Patient will receive skilled ST services for dysphagia. Treatment Duration: Mar 13, 2019 Frequency: 4 times per week Estimated Hrs Per Day: .25 hour per day Rehab Potential: Fair Barriers to Learning: Patient's medical status Pt/Family Agrees to Plan: Yes Safety Risks/Education Teaching Recipient: Patient Teaching Methods: Demonstration, Discussion Response to Teaching: Verbalize Understanding, Return Demonstration Education Topics Provided: Safety of oral intake and diet level Time Speech Therapy Time In: 10:45 Speech Therapy Time Out: 11:00 Total Billed Time: 15 Billed Treatment Time 1, BUCKY Dillon Mar 06, 2019 14:00 POS
--- NOTE | 2019-03-06 15:17 | Progress Note - Hospitalist ---
Subjective HPI/CC On Admission Date Seen by Provider: Mar 06, 2019 Time Seen by Provider: 09:00 abdominal pain Subjective/Events-last exam She reports feeling ok today. She denies pain. She denies fevers and chills. She denies nausea and vomiting. She denies chest pain and dyspnea. Focused Exam Lactate Level 03/06/19 02:00: Lactic Acid Level 2.27*H 03/06/19 06:00: Lactic Acid Level 2.56*H Time of Focused Exam: 22:00 Objective Exam Vital Signs Vital Signs Date Time Temp Pulse Resp B/P (MAP) Pulse Ox O2 Delivery O2 Flow Rate FiO2 03/06/19 15:01 99 Nasal Cannula 2.00 03/06/19 13:00 92 03/06/19 12:00 36.4 03/06/19 12:00 27 124/38 (66) 03/06/19 05:58 30 Capillary Refill : Less Than 3 SecondsLess Than 3 Seconds General Appearance: No Apparent Distress, Chronically ill HEENT: PERRL/EOMI, Pharynx Normal Neck: Normal Inspection, Supple Respiratory: Lungs Clear, Normal Breath Sounds, No Respiratory Distress Cardiovascular: Regular Rate, Rhythm, No Edema, No Murmur Gastrointestinal: Soft, Abnormal Bowel Sounds (hypoactive), Tenderness, Other Extremity: Pedal Edema, Swelling (2+ pitting edema in all extremities) Neurologic/Psychiatric: Alert, Disoriented Skin: Normal Color, Warm/Dry Results/Procedures Lab Laboratory Tests 03/06/19 02:00 03/06/19 03:30 03/06/19 06:00 03/06/19 09:15 Patient resulted labs reviewed. Imaging: Reviewed Imaging Films, Reviewed Imaging Report Assessment/Plan Assessment and Plan Assess & Plan/Chief Complaint Perforated abdominal viscus -Surgery following, performed repeat ex lap and anastamosis repair 03/05 -Meropenem restarted Severe protein-calorie malnutrition -Would consider tube feeding vs TPN Shock, resolved Fungemia -Continue Diflucan for fungemia Acute hypoxemic respiratory failure -Improving, now on nasal cannula Acute kidney injury Hypernatremia -Continue D5W Hypertension -Clonidine and metoprolol ordered Paroxysmal atrial fibrillation -Continue metoprolol -Cardiology following T2DM -Sliding scale insulin Critical illness myopathy -PT/OT Diagnosis/Problems Diagnosis/Problems (1) Perforated abdominal viscus Status: Acute (2) Fungemia Status: Acute (3) Acute respiratory failure Status: Acute Qualifiers: Respiratory failure complication: unspecified whether with hypoxia or hypercapnia Qualified Codes: J96.00 - Acute respiratory failure, unspecified whether with hypoxia or hypercapnia (4) Essential hypertension Status: Chronic (5) Critical illness myopathy Status: Acute (6) IDDM (insulin dependent diabetes mellitus) Status: Chronic Clinical Quality Measures DVT/VTE Risk/Contraindication: Risk Factor Score Per Nursin RFS Level Per Nursing on Admit: 4+=Very High NAIMA ROMAN MD Mar 06, 2019 15:17 POS
--- NOTE | 2019-03-06 23:49 | OPERATIVE REPORT ---
DATE OF SERVICE: 03/05/2019 PREOPERATIVE DIAGNOSES: Pneumoperitoneum, hydroperitoneum. POSTOPERATIVE DIAGNOSES: Perforation at anastomosis. Purulent fluid in abdomen. PROCEDURE: 1. Small bowel resection. 2. Abdominal washout. SURGEON: Jung Willett DO. ANIMAL CARE SUPERVISOR: Dr. Cohen. ANESTHESIA: General endotracheal tube. SPECIMEN: Fluid culture. BLOOD LOSS: Less than 200 mL. FLUIDS: Per anesthesia. POSTOPERATIVE CONDITION: Stable. INDICATION FOR PROCEDURE: The patient is a 73-year-old female who had possibly some increased abdominal pain and a CAT scan showed free air and fluid in the abdomen. FINDINGS: The patient had some clear serous fluid in the right upper quadrant, but in the left upper quadrant above the spleen, she had purulent fluid. Also found to have perforation at the anastomosis, basically the staple line closing the enteroenterostomy was completely open. PROCEDURE NOTE: After informed consent was obtained, the patient was brought to the operating room, placed on table in supine position. She was sterilely prepped and draped in normal fashion. I went in through previous incision, opened the PDS suture, cut it out and then removed it. Upon opening the abdomen, noted adhesed small intestine and then carefully started freeing up the tissue and above the stomach, got a return of purulent looking fluid. This was cultured, suctioned all of this out, irrigated and then opened above the liver, got out clear serous fluid, drained close to 2 or 3 liters of each of total of these fluids. Irrigated with 9 liters of warm normal saline, ran the small bowel from the ligament of Treitz to the anastomosis and then to the ileostomy. Unfortunately, right at the previous anastomotic site, appeared that the staple line holding the enteroenterotomy had fallen apart, unsure if this was staple failure, could have been oil well service operator helper error more likely it was the fact that the anastomosis was sitting in an area of inflamed tissue because of her previous perforation with fecal material and still had some biofilm and fecal film covering some of the portions of intestine as well as stomach. Once we found this and had freed everything up, placed a BINH-75 down either side of the anastomosis the limbs, thereby lengthening the anastomosis and then placed another BINH-75 over the enteroenterostomy up a little bit and resected this small portion of small bowel and passed this off the table, then oversewed this with 3-0 Vicryl pop-offs to cover this anastomosis to try and help protect it. Irrigated some more, placed couple of Gelfoam in the pelvis to keep the small intestine out of the pelvis. Rest of the intestine was viable, although still had some of the fecal film covering it. At this point, after we had completely washed everything out and suctioned it out, then elected to close the incision with a #1 double stranded PDS suture, one from the superior portion, one from the inferior portion running together and meeting in the middle and then tying, then placed iodoform packed Kerlix dressing in the midline and then replaced the ileostomy bag. The patient tolerated the procedure. Sponge, instrument and needle count correct at the end of the case. Dr. Cohen assisted in this case helping to make incisions, close incisions, identify anatomy and hold anatomy out of the way. Job ID: [id number] DocumentID: [id number] Dictated Date: 03/06/2019 18:33:23 Elastic Tape Inserter Date: 03/06/2019 23:48:13 Dictated By: DO AVELINA LOPEZ
[2019-03-07] VITALS (23 sets, daily range): BP systolic 84–172; BP diastolic 37–49
[2019-03-07] MEDS: morphine INJ 4 MG/ML 1 ML (VIAL/SYRINGE) IVP PRN ×3 (00:11→15:45)
[2019-03-07] MEDS: RT-IPRATROPIUM (ATROVENT) 0.5MG/2.5ML AMP IH SCH ×7 (01:46→21:54)
[2019-03-07] MEDS: D5W 1000 ML IV SOLUTION 1,000 ML IV SCH (02:36)
[2019-03-07] MEDS: MEROPENEM 500 MG/SWFI 10 ML IV PUSH IV SCH ×4 (02:41→15:46)
--- NOTE | 2019-03-07 02:45 | NUR ---
Reported to EICU of patient's low urine output, increasing heart rate into the 120s and low blood pressure. Orders received.
[2019-03-07] MEDS: meTOprolol 5 MG/5 ML (LOPRESSOR) VIAL IV SCH ×5 (02:48→23:01)
[2019-03-07] MEDS ORDERED: NS IV 500 ML 500 ML ONE (02:59)
[2019-03-07 03:30] LABS: BASOPHILS % (AUTO) 0 % (0-10); EOSINOPHILS % (AUTO) 0 % (0-10); HEMATOCRIT 26 % (35-52); HEMOGLOBIN 8.5 G/DL (11.5-16.0); LYMPHOCYTES # (AUTO) 0.7 X 10^3 (1.0-4.0); LYMPHOCYTES % (AUTO) 4 % (12-44); MEAN CORPUSCULAR HEMOGLOBIN 32 PG (25-34); MEAN CORPUSCULAR HGB CONC 33 G/DL (32-36); MEAN CORPUSCULAR VOLUME 97 FL (80-99); MEAN PLATELET VOLUME 10.5 FL (7.4-10.4); MONOCYTES # (AUTO) 1.2 X 10^3 (0.0-1.0); MONOCYTES % (AUTO) 7 % (0-12); NEUTROPHILS # (AUTO) 14.8 X 10^3 (1.8-7.8); NEUTROPHILS % (AUTO) 88 % (42-75); PLATELET COUNT 234 10^3/uL (130-400); RED CELL DISTRIBUTION WIDTH 16.5 % (10.0-14.5); WHITE BLOOD COUNT 16.7 10^3/uL (4.3-11.0)
[2019-03-07 03:54] LABS: CALCIUM 6.7 MG/DL (8.5-10.1); CREATININE SERUM 2.38 MG/DL (0.60-1.30); MAGNESIUM 1.8 MG/DL (1.6-2.4); PHOSPHORUS 5.7 MG/DL (2.3-4.7); POTASSIUM 4.4 MMOL/L (3.6-5.0)
[2019-03-07] MEDS ORDERED: LACTATED RINGERS 1,000 ML IV SCH (05:00)
--- NOTE | 2019-03-07 05:03 | Pulmonary Progress Note ---
Subjective Time Seen by a Provider: 07:42 Subjective/Events-last exam Pt has been hypotensive, and tachycardic. Sepsis Event Evaluation Height, Weight, BMI Height: 5'5.00" Weight: 160lbs. 0.0oz. [id number]; 21.79 BMI Method:Stated Focused Exam Lactate Level 03/06/19 02:00: Lactic Acid Level 2.27*H 03/06/19 06:00: Lactic Acid Level 2.56*H Time of Focused Exam: 22:00 Exam Exam Vital Signs Date Time Temp Pulse Resp B/P (MAP) Pulse Ox O2 Delivery O2 Flow Rate FiO2 03/07/19 04:00 113 24 100/38 (58) 96 High Flow N/C 6.00 03/07/19 03:01 120 26 92/38 (56) 95 High Flow N/C 6.00 03/07/19 02:00 121 26 109/40 (63) 94 High Flow N/C 6.00 03/07/19 01:46 95 Nasal Cannula 5.00 03/07/19 01:00 116 27 106/39 (61) 96 High Flow N/C 6.00 03/07/19 01:00 116 03/07/19 00:00 94 High Flow N/C 6.00 03/07/19 00:00 120 27 122/42 (68) 94 High Flow N/C 6.00 03/06/19 23:00 114 31 112/39 (63) 94 High Flow N/C 6.00 03/06/19 22:11 112 32 112/41 (64) 90 High Flow N/C 6.00 03/06/19 22:00 116 29 120/40 (66) Nasal Cannula 2.00 03/06/19 21:15 94 Nasal Cannula 3.00 03/06/19 21:00 112 30 129/43 (71) 96 Nasal Cannula 2.00 03/06/19 20:00 37.4 03/06/19 20:00 115 138/45 (76) 92 Nasal Cannula 2.00 03/06/19 20:00 97 Nasal Cannula 2.00 03/06/19 19:00 107 03/06/19 19:00 107 139/45 (76) 100 Nasal Cannula 2.00 03/06/19 18:15 97 Nasal Cannula 3.00 03/06/19 18:08 97 Nasal Cannula 2.00 03/06/19 18:00 112 134/47 (76) 97 Nasal Cannula 2.00 03/06/19 17:00 112 139/47 (77) 95 Nasal Cannula 2.00 03/06/19 16:00 110 131/45 (73) 97 Nasal Cannula 2.00 03/06/19 16:00 97 Nasal Cannula 2.00 03/06/19 16:00 36.4 03/06/19 15:01 99 Nasal Cannula 2.00 03/06/19 15:00 110 120/44 (69) 95 Nasal Cannula 2.00 03/06/19 14:00 105 26 131/44 (73) 99 Nasal Cannula 2.00 03/06/19 13:00 92 03/06/19 13:00 92 19 126/39 (68) 99 Nasal Cannula 2.00 03/06/19 12:00 97 Nasal Cannula 2.00 03/06/19 12:00 36.4 03/06/19 12:00 95 27 124/38 (66) 99 Nasal Cannula 2.00 03/06/19 11:00 98 18 115/37 (63) 98 Nasal Cannula 2.00 03/06/19 10:00 105 25 114/40 (64) 100 Nasal Cannula 2.00 03/06/19 09:59 99 Nasal Cannula 3.00 03/06/19 09:33 Nasal Cannula 03/06/19 09:00 105 31 118/39 (65) 100 Nasal Cannula 2.00 03/06/19 08:00 101 22 102/36 (58) 97 Nasal Cannula 2.00 03/06/19 07:43 97 Nasal Cannula 2.00 03/06/19 07:41 36.7 03/06/19 07:30 Nasal Cannula 2.00 03/06/19 07:00 101 13 117/38 (64) 97 Mechanical Ventilator 30.00 03/06/19 07:00 101 03/06/19 06:09 93 23 100 03/06/19 06:00 83 19 109/34 (59) 100 Mechanical Ventilator 30.00 03/06/19 05:58 36.1 86 20 116/36 100 Mechanical Ventilator 30 03/06/19 05:00 86 18 104/33 (56) 100 Mechanical Ventilator 30.00 I & O 03/07/19 07:00 Intake Total 1450 ml Output Total 425 ml Balance 1025 ml Height & Weight Height: 5'5.00" Weight: 160lbs. 0.0oz. [id number]; 21.79 BMI Method:Stated General Appearance: No Apparent Distress, Chronically ill HEENT: PERRL/EOMI, Pharynx Normal Neck: Normal Inspection, Supple Respiratory: Normal Breath Sounds, No Respiratory Distress, Decreased Breath Sounds Cardiovascular: Regular Rate, Rhythm, No Edema, No Murmur Capillary Refill: Less Than 3 Seconds Peripheral Pulses: 2+ Radial Pulses (R), 2+ Radial Pulses (L) Gastrointestinal: soft, other (midline incision with dressing in place) Extremity: Pedal Edema, Swelling (2+ pitting edema in all extremities) Neurologic/Psychiatric: Alert, Disoriented Skin: Normal Color, Warm/Dry Lymphatic: No Adenopathy Results Lab Laboratory Tests 03/06/19 02:00 03/06/19 03:30 03/06/19 06:00 03/06/19 09:15 03/07/19 03:11 Assessment/Plan Assessment/Plan Acute respiratory failure with hypoxia -S/P extubation - Pt is doing well off vent respiratory magana -Give incentive spirometry. -Start DuoNeb with easy PAP Hypotension with tachycardia, increasing lactic acid and worsening renal failure -Give liter bolus of LR -Change IVF to LR -Hold off on giving diuresis for now -Pt is only requiring 3 liters of oxygen Protein jorge malnutrition with low albumin - Fungemia -Echo shows diastolic dysfunction -Repeat BC -Diflucan Acute renal failure with Oliguria -IVF and continue to monitor Grade 1 diastolic dysfunction -Monitor Afib - currently sinus -Pt is getting lovenox therapeutic dosing perforated abdominal viscus s/p repeat surgery with resection DM II Debility -PT/OT protein jorge malnutrition JAZMYNE THOMPSON DO Mar 07, 2019 05:03 POS
[2019-03-07] MEDS ORDERED: NS IV 500 ML 500 ML IV ONE (05:45)
[2019-03-07] MEDS: MAGNESIUM 1 GM/100 ML IVPB 100 ML IV SCH (06:26)
[2019-03-07] MEDS: KCL 20 MEQ TAB (K-DUR) PO SCH (06:26)
[2019-03-07] MEDS: inSUlin ASPART (NovoLOG) 1 UNIT/0.01 ML (CHARGE PER UNIT) SQ SCH ×4 (06:43→21:31)
[2019-03-07] MEDS: POTASSIUM CL 10MEQ/50ML IVPB 50 ML IV SCH (06:44)
[2019-03-07] MEDS: LACTATED RINGERS 1,000 ML IV SCH ×4 (06:45→22:59)
[2019-03-07] MEDS: RT-FLUTICASONE 220 MCG (FLOVENT) PER PUFF INH SCH ×2 (06:49→19:24)
--- NOTE | 2019-03-07 07:16 | Cardiology Progress Note ---
Subjective Date Seen by Provider: Mar 07, 2019 Time Seen by Provider: 07:13 Subjective/Events-last exam Patient is lethargic, short of breath, having abdominal pain Review of Systems General: Fatigue, Malaise Pulmonary: Dyspnea; No Cough, No Pleuritic Chest Pain, No Other Cardiovascular: Edema; No: Chest Pain, Palpitations, Orthopnea, Paroxysmal Noc. Dyspnea, Lt Headedness, Other Focused Exam Lactate Level 03/06/19 02:00: Lactic Acid Level 2.27*H 03/06/19 06:00: Lactic Acid Level 2.56*H 03/07/19 05:35: Lactic Acid Level 2.34*H Time of Focused Exam: 22:00 Lactic Acid Level Laboratory Tests Test 03/07/19 05:35 Lactic Acid Level 2.34 MMOL/L (0.50-2.00) *H Objective-Cardiology Exam Last Set of Vital Signs Vital Signs 03/06/19 03/07/19 03/07/19 05:58 06:00 07:02 Pulse 121 Resp 24 B/P (MAP) 90/37 (54) Pulse Ox 94 O2 Delivery Nasal Cannula O2 Flow Rate 3.00 FiO2 30 Capillary Refill : Less Than 3 SecondsLess Than 3 Seconds I&O Intake and Output 03/07/19 00:00 Intake Total 1450 ml Output Total 410 ml Balance 1040 ml Intake Oral 450 ml IV Total 1000 ml Output Urine Total 410 ml General: Alert, Cooperative, Moderate Distress HEENT: Atraumatic Neck: Supple, No Thyromegaly Lungs: Clear to Auscultation, Normal Air Movement Heart: Normal S1, Normal S2, No Murmurs, Other (Tachycardia) Abdomen: No Masses, Other (Diminished bowel sounds) Extremities: No Clubbing, No Cyanosis, Normal Pulses, No Tenderness/Swelling, Other (trace edema) Skin: No Rashes Neuro: Normal Speech Psych/Mental Status: Mental Status NL Results Lab Laboratory Tests 03/06/19 09:15 03/07/19 03:11 A/P-Cardiology Admission Diagnosis Acute respiratory failure Paroxysmal atrial fibrillation Coronary artery disease Hypertension Assessment/Plan Sepsis, multiple abdominal surgery, still in sinus tachycardia with borderline hypotension, receiving IV fluid Fungemia, sepsis, echocardiogram did not show vegetation, receiving fluconazole, I am hesitant to proceed with [place] this time due to recent perforated bowel, patient is being treated at this point. Echo did not show any significant valvular involvement Status post respiratory failure, improved, patient extubated again this morning, had surgery yesterday. Currently on NC. Paroxysmal atrial fibrillation, and clean sinus tachycardia with borderline hypotension. Continue on IV fluid and monitor Labile hypertension, borderline hypotensive. Receiving IV fluid. Continue to monitor S/p small bowel resection secondary to perf at anastomosis site, another surgery done yesterday, recovering slowly. Coronary artery disease, history of cardiac catheterization in July 2012 showing 50 percent midright coronary artery stenosis, nonobstructive disease, had a borderline disease in the midright coronary artery. Most recent cardiac catheterization done April 2018 revealed mild ectasia in the proximal LAD with mild disease in the mid LAD, small vessel disease distally, mild ectasia in the proximal circumflex artery and 40-50 percent stenosis in the mid right coronary artery, nonobstructive disease, continue to monitor History of colon cancer, history of colon resection and colostomy in the remote past has been in remission and followed by Dr. Branham History of hyperlipidemia Carotid artery stenosis , continue to monitor as outpatient. Syncope, had a syncopal episode in October 2015 probably due to dehydration. Was in renal failure. Improved. History of thyroid nodules noted on ultrasound, followed by Dr. Branham and Dr. Simmons Diabetes mellitus, followed and managed by primary care physician. History of colon cancer, history of colostomy. Currently in remission. Followed by Dr. Branham Family history of coronary artery disease. Obstructive sleep apnea, intolerance to CPAP History of appendectomy, kidney stones, hysterectomy. Breast biopsy. Clinical Quality Measures DVT/VTE Risk/Contraindication: Risk Factor Score Per Nursin RFS Level Per Nursing on Admit: 4+=Very High NAYA URIAS MD Mar 07, 2019 07:16 POS
--- NOTE | 2019-03-07 07:28 | Diagnostic Imaging Report ---
INDICATION: Dyspnea Upright portable AP view of the chest is obtained. Since examination of one day earlier, there has been extubation. There has been increase in perihilar and bilateral basilar atelectasis as well as pleural fluid which is more pronounced on the right. No pneumothorax is seen. Right upper extremity PICC is in stable position. IMPRESSION: Increasing bilateral atelectasis and/or edema as well as pleural fluid which is greater on the right. Dictated by: Dictated on workstation # [id number]
[2019-03-07] MEDS: PANTOPRAZOLE 40 MG (PROTONIX) VIAL IV SCH (07:40)
[2019-03-07] MEDS: FLUCONAZOLE 200 MG/NACL 100 ML (PRE-MIX) IV SCH (07:41)
[2019-03-07] MEDS: PROPOFOL DRIP (ICU) 100 ML IV SCH (08:39)
[2019-03-07] MEDS: NOREPINEPHRINE 4 MG in NS (IVPB) 250 ML IV SCH (09:07)
[2019-03-07] MEDS ORDERED: ANIDULAFUNGIN INJECTION 200 MG in NS (IVPB) 250 ML IV NR (11:00)
--- NOTE | 2019-03-07 11:56 | Progress Note - Hospitalist ---
Subjective HPI/CC On Admission Date Seen by Provider: Mar 07, 2019 Time Seen by Provider: 09:00 abdominal pain Subjective/Events-last exam She reports back pain. She denies abdominal pain. She is tired and not very cooperative with answering questions today. Focused Exam Lactate Level 03/06/19 06:00: Lactic Acid Level 2.56*H 03/07/19 05:35: Lactic Acid Level 2.34*H 03/07/19 09:15: Lactic Acid Level 2.26*H Time of Focused Exam: 22:00 Lactic Acid Level Laboratory Tests Test 03/07/19 09:15 Lactic Acid Level 2.26 MMOL/L (0.50-2.00) *H Objective Exam Vital Signs Vital Signs Date Time Temp Pulse Resp B/P (MAP) Pulse Ox O2 Delivery O2 Flow Rate FiO2 03/07/19 10:55 94 Nasal Cannula 3.00 03/07/19 10:00 105 20 106/39 (61) 03/06/19 20:00 37.4 03/06/19 05:58 30 Capillary Refill : Less Than 3 SecondsLess Than 3 Seconds General Appearance: WD/WN, Chronically ill, Mild Distress HEENT: PERRL/EOMI, Other (dry mucous membranes) Neck: Normal Inspection, Supple Respiratory: Lungs Clear, Normal Breath Sounds, Respiratory Distress, Other (tachypnic) Cardiovascular: Regular Rate, Rhythm, No Edema, No Murmur Gastrointestinal: Normal Bowel Sounds, Non Tender, Soft; No Distended, No Guarding; Other (wound vac and ostomy in place) Extremity: Swelling (2+ pitting edema all extremities) Neurologic/Psychiatric: Depressed Affect; No Disoriented; Other (lethargic) Skin: Warm/Dry, Pallor Results/Procedures Lab Laboratory Tests 03/07/19 03:11 Patient resulted labs reviewed. Imaging: Reviewed Imaging Report Assessment/Plan Assessment and Plan Assess & Plan/Chief Complaint Perforated abdominal viscus -Surgery following, performed repeat ex lap and anastamosis repair 03/05 -Continue meropenem Lactic acidosis Shock -LA ~2 this morning -Third spacing fluids due to hypoalbuminemia -Consider adding Levophed for MAP goal >65 Acute kidney injury Hypernatremia, resolved -Worsening Cr, low urine output -Transitioned to LR 150 ml/hr Severe protein-calorie malnutrition -Would consider tube feeding Fungemia -Continue Diflucan for fungemia Acute hypoxemic respiratory failure -Worsening tachypnea today -Transitioned to Vapotherm -Pulmonology following Postoperative anemia -s/p 1 unit PRBC 03/06 -Hemoglobin stable Hypertension -Blood pressures low -Hold antihypertensives Paroxysmal atrial fibrillation -Hold metoprolol with hypotension -Cardiology following T2DM -Sliding scale insulin Critical illness myopathy -PT/OT Diagnosis/Problems Diagnosis/Problems (1) Perforated abdominal viscus Status: Acute (2) Fungemia Status: Acute (3) Acute respiratory failure Status: Acute Qualifiers: Respiratory failure complication: unspecified whether with hypoxia or hypercapnia Qualified Codes: J96.00 - Acute respiratory failure, unspecified whether with hypoxia or hypercapnia (4) Essential hypertension Status: Chronic (5) Critical illness myopathy Status: Acute (6) IDDM (insulin dependent diabetes mellitus) Status: Chronic Clinical Quality Measures DVT/VTE Risk/Contraindication: Risk Factor Score Per Nursin RFS Level Per Nursing on Admit: 4+=Very High NAIMA ROMAN MD Mar 07, 2019 11:55 POS
--- NOTE | 2019-03-07 12:00 | Physical Therapy Daily Note ---
PT Daily Note-Current Subjective Patient is fairly unresponsive but daughter is present and agrees to PT at this time. Patient does not respond to questions but expresses pain with movement. Pain Numeric Pain Scale: 5-Moderate Pain Location: Right (and left) Location Body Site: Knee Pain Description: Ache Comment: FLACC Mental Status Patient Orientation: Confused Attachments: SCD's, Oxygen, Wing Catheter, IV Transfers SCALE: Activities may be completed with or without assistive devices. 1-Cmmdniynbw-eyfwzlq completes the activity by him/herself with no assistance from a helper. 5-Set-up or Clean-up Assistance-helper sets up or cleans up; patient completes activity. [place] assists only prior to or following the activity. 4-Supervision or Touching Assistance-helper provides verbal cues and/or touching/steadying and/or contact guard assistance as patient completes activity. Assistance may be provided throughout the activity or intermittently. 3-Partial/Moderate Assistance-helper does LESS THAN HALF the effort. [place] lifts, holds or supports trunk or limbs, but provides less than half the effort. 2-Substantial/Maximal Assistance-helper does MORE THAN HALF the effort. [place] lifts or holds trunk or limbs and provides more than half the effort. 0-Nckjbcbfj-vejjly does ALL the effort. Patient does none of the effort to complete the activity. Or, the assistance of 2 or more helpers is required for the patient to complete the activity. If activity was not attempted, code reason: 7-Patient Refused. 9-Not Applicable-not attempted and the patient did not perform the activity before the current illness, exacerbation or injury. 10-Not Attempted due to Environmental Limitations-(lack of equipment, weather restraints, etc.). 88-Not Attempted due to Medical Conditions or Safety Concerns. Weight Bearing Right Lower Extremity: Right Weight Bearing/Tolerated Left Lower Extremity: Left Weight Bearing/Tolerated Exercises Supine Ex: Ankle pumps, Heel Slides, Straight leg raise, Hip abd/add Supine Reps: 10 (AAROM) Assessment Patient was fairly unresponsive to therapy. Performed AAROM and PROM stretching in bed. Noted swelling in BLE, especially around knees. Removed boots from feet and propped legs up on pillows with heels suspended. PT Production Quality Analyst Goals Production Quality Analyst Goals PT Production Quality Analyst Goals Time Frame: Apr 06, 2019 Sit to Lying (QC): 5 Lying-Sitting on Side/Bed(QC): 5 Sit to Stand (QC): 5 Roll Left to Right (QC): 5 Chair/Wua-bk-Ltxuc Xfer(QC): 5 Does the Patient Walk: Yes Distance: 150' Walk 10 feet (QC): 5 Walk 10ft-Uneven Surface(QC): 5 Walk 50ft with 2 Turns (QC): 5 Walk 150 ft (QC): 5 Gait Assistive Device: FWW PT Plan Treatment/Plan Treatment Plan: Continue Plan of Care Treatment Plan: Bed Mobility, Education, Functional Activity José, Functional Strength, Gait, Safety, Therapeutic Exercise, Transfers Treatment Duration: Apr 06, 2019 Frequency: 6 times per week Estimated Hrs Per Day: .5 hour per day Patient and/or Family Agrees t: Yes Time/GCodes Time In: 1053 Time Out: 1104 Total Billed Treatment Time: 11 Total Billed Treatment 1 visit EX 11min CHIDI AMAYA PT Mar 07, 2019 12:00 POS
--- NOTE | 2019-03-07 12:00 | Progress Note - Surgery ---
Subjective Time Seen by a Provider: 11:31 Subjective/Events-last exam Pt seen and examined, daughter at bedside and states she is doing better than she was. Pt was hypotensive this am and is on Neosynephrine now. States she has minimal-moderate abdominal pain. Review of Systems General: Fatigue, Malaise Pulmonary: No Dyspnea, No Cough Cardiovascular: No: Chest Pain, Palpitations Focused Exam Lactate Level 03/06/19 06:00: Lactic Acid Level 2.56*H 03/07/19 05:35: Lactic Acid Level 2.34*H 03/07/19 09:15: Lactic Acid Level 2.26*H Time of Focused Exam: 22:00 Lactic Acid Level Laboratory Tests Test 03/07/19 09:15 Lactic Acid Level 2.26 MMOL/L (0.50-2.00) *H Objective Exam Vital Signs Date Time Temp Pulse Resp B/P (MAP) Pulse Ox O2 Delivery O2 Flow Rate FiO2 03/07/19 10:55 94 Nasal Cannula 3.00 03/07/19 10:00 105 20 106/39 (61) 94 High Flow N/C 6.00 03/07/19 09:00 112 30 110/39 (62) 93 High Flow N/C 6.00 03/07/19 08:00 115 20 89/38 (55) 93 High Flow N/C 6.00 03/07/19 07:02 94 Nasal Cannula 3.00 03/07/19 07:00 124 29 109/41 (63) 90 High Flow N/C 6.00 03/07/19 07:00 94 Nasal Cannula 3.00 03/07/19 06:58 124 03/07/19 06:00 121 24 90/37 (54) 93 High Flow N/C 6.00 03/07/19 05:00 115 24 84/38 (53) 95 High Flow N/C 6.00 03/07/19 04:00 94 High Flow N/C 6.00 03/07/19 04:00 113 24 100/38 (58) 96 High Flow N/C 6.00 03/07/19 03:01 120 26 92/38 (56) 95 High Flow N/C 6.00 03/07/19 02:00 121 26 109/40 (63) 94 High Flow N/C 6.00 03/07/19 01:46 95 Nasal Cannula 5.00 03/07/19 01:00 116 27 106/39 (61) 96 High Flow N/C 6.00 03/07/19 01:00 116 03/07/19 00:00 94 High Flow N/C 6.00 03/07/19 00:00 120 27 122/42 (68) 94 High Flow N/C 6.00 03/06/19 23:00 114 31 112/39 (63) 94 High Flow N/C 6.00 03/06/19 22:11 112 32 112/41 (64) 90 High Flow N/C 6.00 03/06/19 22:00 116 29 120/40 (66) Nasal Cannula 2.00 03/06/19 21:15 94 Nasal Cannula 3.00 03/06/19 21:00 112 30 129/43 (71) 96 Nasal Cannula 2.00 03/06/19 20:00 37.4 03/06/19 20:00 115 138/45 (76) 92 Nasal Cannula 2.00 03/06/19 20:00 97 Nasal Cannula 2.00 03/06/19 19:00 107 03/06/19 19:00 107 139/45 (76) 100 Nasal Cannula 2.00 03/06/19 18:15 97 Nasal Cannula 3.00 03/06/19 18:08 97 Nasal Cannula 2.00 03/06/19 18:00 112 134/47 (76) 97 Nasal Cannula 2.00 03/06/19 17:00 112 139/47 (77) 95 Nasal Cannula 2.00 03/06/19 16:00 110 131/45 (73) 97 Nasal Cannula 2.00 03/06/19 16:00 97 Nasal Cannula 2.00 03/06/19 16:00 36.4 03/06/19 15:01 99 Nasal Cannula 2.00 03/06/19 15:00 110 120/44 (69) 95 Nasal Cannula 2.00 03/06/19 14:00 105 26 131/44 (73) 99 Nasal Cannula 2.00 03/06/19 13:00 92 03/06/19 13:00 92 19 126/39 (68) 99 Nasal Cannula 2.00 03/06/19 12:00 97 Nasal Cannula 2.00 03/06/19 12:00 36.4 03/06/19 12:00 95 27 124/38 (66) 99 Nasal Cannula 2.00 I & O 03/07/19 07:00 Intake Total 2950 ml Output Total 450 ml Balance 2500 ml Capillary Refill : Less Than 3 SecondsLess Than 3 Seconds General Appearance: No Apparent Distress, WD/WN, Chronically ill HEENT: PERRL/EOMI, Moist Mucous Membranes, Other Respiratory: No Respiratory Distress, Decreased Breath Sounds Cardiovascular: No Murmur, Tachycardia, Other (regular rhythm) Peripheral Pulses: 2+ Radial Pulses (R), 2+ Radial Pulses (L) Gastrointestinal: soft, guarding, other (Midline incision, VAC in place, ileostomy pink and with output) Extremity: Non Tender, Pedal Edema Neurologic/Psychiatric: Alert, Disoriented Skin: Warm/Dry Results Lab Laboratory Tests 03/06/19 12:30: Lab Scanned Report Transfusion Reaction Form 03/07/19 03:11: White Blood Count 16.7H, Red Blood Count 2.67L, Hemoglobin 8.5L, Hematocrit 26L, Mean Corpuscular Volume 97, Mean Corpuscular Hemoglobin 32, Mean Corpuscular Hemoglobin Concent 33, Red Cell Distribution Width 16.5H, Platelet Count 234, Mean Platelet Volume 10.5H, Neutrophils (%) (Auto) 88H, Lymphocytes (%) (Auto) 4L, Monocytes (%) (Auto) 7, Eosinophils (%) (Auto) 0, Basophils (%) (Auto) 0, Neutrophils # (Auto) 14.8H, Lymphocytes # (Auto) 0.7L, Monocytes # (Auto) 1.2H, Eosinophils # (Auto) 0.0, Basophils # (Auto) 0.0, Sodium Level 140, Potassium Level 4.4, Chloride Level 106, Carbon Dioxide Level 22, Anion Gap 12, Blood Urea Nitrogen 69H, Creatinine 2.38H, Estimat Glomerular Filtration Rate 20, BUN/Creat inine Ratio 29, Glucose Level 214H, Calcium Level 6.7L, Phosphorus Level 5.7H, Magnesium Level 1.8 03/07/19 05:35: Lactic Acid Level 2.34*H 03/07/19 09:15: Lactic Acid Level 2.26*H 03/07/19 10:55: Glucometer 161H Microbiology 02/24/19 Blood Culture - Final, Complete Marilia albicans See Comments 03/06/19 Gram Stain - Final, Resulted 03/06/19 Sputum Culture, Resulted Pending 02/24/19 Urine Culture - Final, Complete NO GROWTH 03/05/19 Gram Stain - Final, Resulted 03/05/19 Anaerobic Culture, Resulted Pending 03/05/19 Surgical Culture - Preliminary, Resulted YEAST Assessment/Plan Assessment/Plan Assessment/Plan S/P Ex-Lap with SBR B/L Pleural effusion with atelectasis Acute Renal Insufficiency Pt needs more fluids, max medical care. Elevated WBC is most likely due to wors ening lungs. Talked with pt's daughter; she is again trying to recover from surgery and after two previous it is hard on the pt. She looks ok though; continue current care. Clinical Quality Measures DVT/VTE Risk/Contraindication: Risk Factor Score Per Nursin RFS Level Per Nursing on Admit: 4+=Very High MISSY MONTEJO DO Mar 07, 2019 12:00 POS
--- NOTE | 2019-03-07 12:32 | NUR ---
Received consult for calorie count. Pt consumed 0% of breakfast, per ROD Alan. Will continue to follow. Ambrose Cuenca MS, RD, LD O: Ext 133 C: [phone]
--- NOTE | 2019-03-07 12:49 | Occupational Ther Daily Note ---
OT Current Status-Daily Note Subjective Pt. does not verbalize very much this date. Is able to indicate that she is not having pain. Appearance OT checked with nursing first. Agrees to allow OT to work to pt's tolerance level. Mental Status/Objective Patient Orientation: Unable to Assess Attachments: Wing Catheter, IV, Oxygen, Telemetry ADL-Treatment Therapy Code Descriptions/Definitions Functional [place] Measure: 0=Not Assessed/NA 4=Minimal Assistance 1=Total Assistance 5=Supervision or Setup 2=Maximal Assistance 6=Modified [place] 3=Moderate Assistance 7=Complete IndependenceSCALE: Activities may be completed with or without assistive devices. 9-Trtrpagzck-ajnxcgs completes the activity by him/herself with no assistance from a helper. 5-Set-up or Clean-up Assistance-helper sets up or cleans up; patient completes activity. Banks assists only prior to or following the activity. 4-Supervision or Touching Assistance-helper provides verbal cues and/or touching/steadying and/or contact guard assistance as patient completes a ctivity. Assistance may be provided throughout the activity or intermittently. 3-Partial/Moderate Assistance-helper does LESS THAN HALF the effort. Banks lifts, holds or supports trunk or limbs, but provides less than half the effort. 2-Substantial/Maximal Assistance-helper does MORE THAN HALF the effort. Banks lifts or holds trunk or limbs and provides more than half the effort. 0-Kttifkxyb-mpjsqi does ALL the effort. Patient does none of the effort to complete the activity. Or, the assistance of 2 or more helpers is required for the patient to complete the activity. If activity was not attempted, code reason: 7-Patient Refused. 9-Not Applicable-not attempted and the patient did not perform the activity before the current illness, exacerbation or injury. 10-Not Attempted due to Environmental Limitations-(lack of equipment, weather restraints, etc.). 88-Not Attempted due to Medical Conditions or Safety Concerns. Pt. positioned in bed. Is able to slightly wiggle fingers on left hand, but not able to move fingers on right. Noted swelling throughout bilateral UE. Pt. is able to pump bilateral ankles on command. OT performed gentle PROM to bilateral fingers, wrists, elbows, shoulders. Noted increased tightness all over. Completed very gentle retrograde massage to bilateral UE. Noted pt. is "seeping" from fluid in UE. Repositioned pt.'s arms to elevate hands/wrists. Obtained thickened water for daughter to assist pt. with after visit in room. Nursing okay'd this. All needs met in room. Education OT Patient Education: Correct positioning, Exercise program, Modified ADL techniques, Progress toward Goal/Update tx plan, Purpose of tx/functional activities, Reviewed precautions, Rehab process, Transfer techniques Teaching Recipient: Patient Teaching Methods: Demonstration, Discussion Response to Teaching: Verbalize Understanding, Return Demonstration OT Short Term Goals Short Term Goals Eating(FIM): 3 Grooming(FIM): 2 Upper Body Dressing(FIM): 2 Lower Body Dressing(FIM): 2 Additional Short Term Goals: 1-Demonstrate ADL Tasks, 2-Verbalize Understanding, 3-ImproveStrength/José 1=Demonstrate adherence to instructed precautions during ADL tasks. 2=Patient will verbalize/demonstrate understanding of assistive devices/modifications for ADL. 3=Patient will improve strength/tolerance for activity to enable patient to perform ADL's. OT Basket Operator Goals Basket Operator Goals Eating (QC): 4 Oral Hygiene (QC): 4 Shower/Bathe Self (QC): 4 Upper Body Dressing (QC): 4 Lower Body Dressing (QC): 3 On/Off Footwear (QC): 4 Toileting Hygiene (QC): 3 Toilet/Commode Transfer (QC): 4 Additional Goals: 1-Demonstrate ADL Tasks, 2-Verbalize Understanding, 3- ImproveStrength/José 1=Demonstrate adherence to instructed precautions during ADL tasks. 2=Patient will verbalize/demonstrate understanding of assistive devices/modifi cations for ADL. 3=Patient will improve strength/tolerance for activity to enable patient to perform ADL's. OT Education/Plan Problem List/Assessment Assessment: Decreased Activ Tolerance, Decreased Safety Aware, Decreased UE Strength, Dependent Transfers, Edema, Impaired Bed Mobility, Impaired Cognition, Impaired Coordination, Impaired Funct Balance, Impaired I ADL's, Impaired Self- Care Skills, Restricted Funct UE ROM Discharge Recommendations Plan/Recommendations: Continue POC Therapy Discharge Recommendati: 24 Hour Supervision Comment To be determined. Treatment Plan/Plan of Care Treatment,Training & Education: Yes Patient would benefit from OT for education, treatment and training to promote independence in ADL's, mobility, safety and/or upper extremity function for ADL's. Plan of Care: ADL Retraining, Caregiver Training, Cognitive Retraining, Concurrent Therapy, Functional Mobility, UE Funct Exercise/Act Treatment Duration: Mar 18, 2019 Frequency: 5 times per week Estimated Hrs Per Day: .25 hour per day Agreement: Yes Rehab Potential: Fair Time/GCodes Start Time: 11:10 Stop Time: 11:30 Total Time Billed (hr/min): 20 Billed Treatment Time 1, Ex HEMANT MERCEDES OT Mar 07, 2019 12:48 POS
--- NOTE | 2019-03-07 15:20 | Speech Therapy Progress Note ---
Therapy Progress Note Patient placed on clear liquids by physician. Patient being considered for tube feeding. ST to follow up tomorrow. BUCKY VIVAS Mar 07, 2019 15:20 POS
--- NOTE | 2019-03-07 23:19 | NUR ---
Call to E ICU to report low urine output, discussed labs, vitals and patient overall condition.
[2019-03-07] MEDS ORDERED: ALBUMIN 5% 12.5 GM/250 ML 500 ML IV ONE (23:35)
[2019-03-07] MEDS ORDERED: ALBUMIN 5% 12.5 GM/250 ML 250 ML IV ONE (23:45)
[2019-03-08] VITALS (42 sets, daily range): BP systolic 109–177; BP diastolic 35–72
[2019-03-08] MEDS: morphine INJ 4 MG/ML 1 ML (VIAL/SYRINGE) IVP PRN ×3 (00:44→08:57)
[2019-03-08] MEDS: MEROPENEM 500 MG/SWFI 10 ML IV PUSH IV SCH ×4 (01:10→16:01)
[2019-03-08] MEDS ORDERED: ALBUMIN 25% 25 GM/100 ML 100 ML IV SCH (02:00)
[2019-03-08] MEDS: ALBUMIN 25% 25 GM/100 ML 100 ML IV SCH ×3 (02:32→19:24)
[2019-03-08 03:28] LABS: BASOPHILS % (AUTO) 0 % (0-10); EOSINOPHILS % (AUTO) 0 % (0-10); LYMPHOCYTES # (AUTO) 0.9 X 10^3 (1.0-4.0); LYMPHOCYTES % (AUTO) 7 % (12-44); MEAN CORPUSCULAR HEMOGLOBIN 32 PG (25-34); MEAN CORPUSCULAR HGB CONC 33 G/DL (32-36); MEAN CORPUSCULAR VOLUME 97 FL (80-99); MEAN PLATELET VOLUME 9.8 FL (7.4-10.4); MONOCYTES # (AUTO) 1.1 X 10^3 (0.0-1.0); MONOCYTES % (AUTO) 9 % (0-12); NEUTROPHILS # (AUTO) 10.5 X 10^3 (1.8-7.8); NEUTROPHILS % (AUTO) 84 % (42-75); PLATELET COUNT 176 10^3/uL (130-400); RED CELL DISTRIBUTION WIDTH 15.6 % (10.0-14.5); WHITE BLOOD COUNT 12.4 10^3/uL (4.3-11.0)
[2019-03-08 03:31] LABS: HEMATOCRIT 17 % (35-52); HEMOGLOBIN 5.4 G/DL (11.5-16.0)
[2019-03-08 03:46] LABS: CALCIUM 7.3 MG/DL (8.5-10.1); CREATININE SERUM 3.06 MG/DL (0.60-1.30); MAGNESIUM 1.8 MG/DL (1.6-2.4); POTASSIUM 4.8 MMOL/L (3.6-5.0)
[2019-03-08] MEDS ORDERED: CALCIUM GLUC. 10% 4.65 MEQ/10 ML VIAL ONE ×2 (04:08→04:10)
[2019-03-08] MEDS ORDERED: NS (IVPB) 100 ML ONE (04:10)
[2019-03-08] MEDS ORDERED: NS (IVPB) 250 ML ONE (04:11)
[2019-03-08] MEDS ORDERED: CALCIUM GLUC. 10% 4.65 MEQ/10 ML VIAL IV ONE (04:15)
[2019-03-08] MEDS: POTASSIUM CL 10MEQ/50ML IVPB 50 ML IV SCH (04:41)
[2019-03-08] MEDS: MAGNESIUM 1 GM/100 ML IVPB 100 ML IV SCH (04:41)
[2019-03-08] MEDS: KCL 20 MEQ TAB (K-DUR) PO SCH (04:41)
[2019-03-08] MEDS: inSUlin ASPART (NovoLOG) 1 UNIT/0.01 ML (CHARGE PER UNIT) SQ SCH ×3 (04:42→18:00)
[2019-03-08] MEDS ORDERED: NS 100 ML (IVPB) BAG IV ONE (04:45)
[2019-03-08] MEDS ORDERED: NS (IVPB) 250 ML IV ONE (04:45)
[2019-03-08 05:29] LABS: ABG BASE EXCESS -0.3 MMOL/L (-2.5-2.5); ABG OXYGEN SATURATION 87 % (94-100); ABG PCO2 48 MMHG (35-45); ABG PO2 60 MMHG (79-93); ABG TCO2 26.4 MMOL/L (21.0-31.0)
[2019-03-08] MEDS: meTOprolol 5 MG/5 ML (LOPRESSOR) VIAL IV SCH ×3 (05:32→18:00)
[2019-03-08 05:36] LABS: ABG PH 7.33 (7.37-7.43); ALLENS TEST ART LINE; INSPIRED O2 30%
[2019-03-08 05:37] LABS: PATIENT TEMP 36.7; VENTILATOR NO
--- NOTE | 2019-03-08 06:08 | Pulmonary Progress Note ---
Sepsis Event Evaluation Height, Weight, BMI Height: 5'5.00" Weight: 160lbs. 0.0oz. 72.225067in; 21.79 BMI Method:Stated Focused Exam Lactate Level 03/07/19 05:35: Lactic Acid Level 2.34*H 03/07/19 09:15: Lactic Acid Level 2.26*H 03/08/19 03:15: Lactic Acid Level 1.24 Time of Focused Exam: 22:00 Lactic Acid Level Laboratory Tests Test 03/08/19 03:15 Lactic Acid Level 1.24 MMOL/L (0.50-2.00) Exam Exam Vital Signs Date Time Temp Pulse Resp B/P (MAP) Pulse Ox O2 Delivery O2 Flow Rate FiO2 03/08/19 05:23 Vapotherm 35.00 70.00 03/08/19 05:21 Vapotherm 35.00 65.00 03/08/19 05:00 108 22 168/36 (80) 91 High Flow N/C 6.00 03/08/19 04:42 36.5 107 21 158/35 91 High Flow N/C 6.00 03/08/19 04:28 36.7 105 20 160/38 90 High Flow N/C 6.00 03/08/19 04:00 102 24 164/46 (85) 91 High Flow N/C 6.00 03/08/19 03:45 36.6 High Flow N/C 6.00 03/08/19 03:45 92 High Flow N/C 6.00 03/08/19 03:00 100 26 151/42 (78) 91 High Flow N/C 6.00 03/08/19 02:00 102 26 152/41 (78) 89 High Flow N/C 6.00 03/08/19 01:00 99 23 153/41 (78) 94 High Flow N/C 6.00 03/08/19 01:00 99 03/08/19 00:14 99 27 167/42 (83) 90 High Flow N/C 6.00 03/08/19 00:00 96 26 177/43 (87) 92 High Flow N/C 4.00 03/07/19 23:45 94 High Flow N/C 4.00 03/07/19 23:00 36.6 86 17 141/40 (73) 98 High Flow N/C 4.00 03/07/19 22:00 102 17 146/42 (76) 95 High Flow N/C 4.00 03/07/19 21:54 94 Nasal Cannula 3.00 03/07/19 21:00 106 29 162/42 (82) 95 High Flow N/C 4.00 03/07/19 20:00 94 High Flow N/C 4.00 03/07/19 20:00 107 18 116/42 (66) 95 High Flow N/C 6.00 03/07/19 19:41 36.1 03/07/19 19:24 94 Nasal Cannula 4.00 03/07/19 19:24 94 Nasal Cannula 3.00 03/07/19 19:00 103 03/07/19 19:00 103 20 161/45 (83) 92 High Flow N/C 6.00 03/07/19 17:00 102 27 172/49 (90) 92 High Flow N/C 6.00 03/07/19 16:00 94 High Flow N/C 6.00 03/07/19 16:00 101 18 134/43 (73) 94 High Flow N/C 6.00 03/07/19 15:43 36.5 03/07/19 15:27 91 Nasal Cannula 3.00 03/07/19 15:00 109 22 125/44 (71) 91 High Flow N/C 6.00 03/07/19 14:00 102 19 102/39 (60) 94 High Flow N/C 6.00 03/07/19 13:00 97 18 90/39 (56) 96 High Flow N/C 6.00 03/07/19 12:58 95 03/07/19 12:00 112 25 121/41 (67) 90 High Flow N/C 6.00 03/07/19 12:00 94 High Flow N/C 6.00 03/07/19 11:00 111 28 133/43 (73) 94 High Flow N/C 6.00 03/07/19 10:55 94 Nasal Cannula 3.00 03/07/19 10:00 105 20 106/39 (61) 94 High Flow N/C 6.00 03/07/19 09:00 112 30 110/39 (62) 93 High Flow N/C 6.00 03/07/19 08:00 115 20 89/38 (55) 93 High Flow N/C 6.00 03/07/19 08:00 94 High Flow N/C 6.00 03/07/19 07:02 94 Nasal Cannula 3.00 03/07/19 07:00 124 29 109/41 (63) 90 High Flow N/C 6.00 03/07/19 07:00 94 Nasal Cannula 3.00 03/07/19 06:58 124 I & O0 03/08/19 07:00 Intake Total 3500 ml Output Total 1780 ml Balance 1720 ml Height & Weight Height: 5'5.00" Weight: 160lbs. 0.0oz. 72.904660et; 21.79 BMI Method:Stated General Appearance: No Apparent Distress, WD/WN, Chronically ill HEENT: PERRL/EOMI, Moist Mucous Membranes, Other Respiratory: No Respiratory Distress, Decreased Breath Sounds Cardiovascular: No Murmur, Tachycardia, Other (regular rhythm) Capillary Refill: Less Than 3 Seconds Peripheral Pulses: 2+ Radial Pulses (R), 2+ Radial Pulses (L) Gastrointestinal: soft, guarding, other (Midline incision, VAC in place, ileostomy pink and with output) Extremity: Non Tender, Pedal Edema Neurologic/Psychiatric: Alert, Disoriented Skin: Warm/Dry Results Lab Laboratory Tests 03/06/19 09:15 03/07/19 03:11 03/08/19 03:15 Assessment/Plan Assessment/Plan Acute respiratory failure with hypoxia -S/P extubation - Pt is doing well off vent respiratory magana -Give incentive spirometry. -Start DuoNeb with easy PAP Hypotension with tachycardia, increasing lactic acid and worsening renal failure Protein jorge malnutrition with low albumin - Fungemia -Echo shows diastolic dysfunction -Repeat BC -Diflucan Acute renal failure with Oliguria -IVF and continue to monitor Grade 1 diastolic dysfunction -Monitor Afib - currently sinus -Pt is getting lovenox therapeutic dosing perforated abdominal viscus s/p repeat surgery with resection DM II Debility -PT/OT protein jorge malnutrition JAZMYNE THOMPSON DO Mar 08, 2019 06:08 POS
--- NOTE | 2019-03-08 06:56 | Diagnostic Imaging Report ---
EXAM: CHEST 1 VIEW, AP/PA ONLY INDICATION: Dyspnea. COMPARISON: 03/07/2019. FINDINGS: Moderate right pleural effusion and consolidation throughout most of the right lung. There is likely a small left pleural effusion and consolidation in the left lung base as well. Cardiomegaly. Pulmonary vascularity is obscured. Right IJ CVC tip in the SVC. No acute osseous findings. IMPRESSION: Moderate right pleural effusion and consolidation in much of the right lung. Small left pleural effusion. Dictated by: Dictated on workstation # [id number]
--- NOTE | 2019-03-08 06:57 | NUR ---
[address] scan for evaluation of Abd chest and pelvis. Patient tolerated procedure without difficulty.
[2019-03-08] MEDS: RT-FLUTICASONE 220 MCG (FLOVENT) PER PUFF INH SCH ×2 (07:07→18:50)
--- NOTE | 2019-03-08 07:07 | Diagnostic Imaging Report ---
PROCEDURE: CT chest, abdomen, and pelvis without contrast. TECHNIQUE: Multiple contiguous axial images were obtained through the chest, abdomen, and pelvis without the use of intravenous contrast. Auto Exposure Controls were utilized during the CT exam to meet ALARA standards for radiation dose reduction. INDICATION: Pneumoperitoneum Exam compared with abdominal pelvic CT 03/05/2019. CHEST: There are bilateral pleural effusions greater right. Pleural fluid volume at least mildly increased in the interim. The distribution of pleural fluid on the right raises the question of its partial loculation. There is passive atelectatic changes in the dependent lower lobes to the extent that superimposition of pneumonia could not be excluded by imaging features. There is a vascular catheter in the lower SVC. The calcified aorta is nonaneurysmal. There is no pneumothorax. No pericardial effusion. Abdomen pelvis: The volume of intraperitoneal air is decreased from the prior however there continues to be a substantial volume of the complex abdominal pelvic free fluid. Fluid load not notably changed. Packed vertical incision in the abdominal wall present without lou-incisional hernia. Diffuse integumentary edema is redemonstrated. The free fluid within the dependent pelvis shows a hyperdense dependent fluid fluid layer suggestive that there is at least some component of blood associated with the fluid. Liver, spleen and pancreas unremarkable. The adrenals are negative. The kidneys are unobstructed. The aorta is atherosclerotic but nonaneurysmal. IMPRESSION: Chest: Likely progressive pleural fluid partial loculation on the right not excluded with increased passive atelectasis and/or pneumonia superimposed. Abdomen pelvis: Reduction in pneumoperitoneum. Similar complex fluid volume at the pelvis has a hematocrit layer at least some component of blood is present. Progressive integumentary edema. No bowel, biliary or urinary tract obstruction. Dictated by: Dictated on workstation # [id number]
[2019-03-08] MEDS: RT-IPRATROPIUM (ATROVENT) 0.5MG/2.5ML AMP IH SCH ×4 (07:12→18:50)
--- NOTE | 2019-03-08 07:55 | NUR ---
Dr Martinez notified via telephone that CT report is read.
--- NOTE | 2019-03-08 08:04 | Pulmonary Progress Note ---
Subjective Time Seen by a Provider: 05:00 Subjective/Events-last exam Pt appears very weak with shallow breaths. Sepsis Event Evaluation Height, Weight, BMI Height: 5'5.00" Weight: 160lbs. 0.0oz. 72.115723wt; 21.79 BMI Method:Stated Focused Exam Lactate Level 03/07/19 05:35: Lactic Acid Level 2.34*H 03/07/19 09:15: Lactic Acid Level 2.26*H 03/08/19 03:15: Lactic Acid Level 1.24 Time of Focused Exam: 22:00 Exam Exam Vital Signs Date Time Temp Pulse Resp B/P (MAP) Pulse Ox O2 Delivery O2 Flow Rate FiO2 03/08/19 07:14 NIV Bilevel 70.00 03/08/19 07:13 96 17 92 70.00 03/08/19 06:00 93 22 172/44 (86) 95 Vapotherm 35.00 70.00 03/08/19 05:23 Vapotherm 35.00 70.00 03/08/19 05:21 Vapotherm 35.00 65.00 03/08/19 05:00 108 22 168/36 (80) 91 High Flow N/C 6.00 03/08/19 04:42 36.5 107 21 158/35 91 High Flow N/C 6.00 03/08/19 04:28 36.7 105 20 160/38 90 High Flow N/C 6.00 03/08/19 04:00 102 24 164/46 (85) 91 High Flow N/C 6.00 03/08/19 03:45 36.6 High Flow N/C 6.00 03/08/19 03:45 92 High Flow N/C 6.00 03/08/19 03:00 100 26 151/42 (78) 91 High Flow N/C 6.00 03/08/19 02:00 102 26 152/41 (78) 89 High Flow N/C 6.00 03/08/19 01:00 99 23 153/41 (78) 94 High Flow N/C 6.00 03/08/19 01:00 99 03/08/19 00:14 99 27 167/42 (83) 90 High Flow N/C 6.00 03/08/19 00:00 96 26 177/43 (87) 92 High Flow N/C 4.00 03/07/19 23:45 94 High Flow N/C 4.00 03/07/19 23:00 36.6 86 17 141/40 (73) 98 High Flow N/C 4.00 03/07/19 22:00 102 17 146/42 (76) 95 High Flow N/C 4.00 03/07/19 21:54 94 Nasal Cannula 3.00 03/07/19 21:00 106 29 162/42 (82) 95 High Flow N/C 4.00 03/07/19 20:00 94 High Flow N/C 4.00 03/07/19 20:00 107 18 116/42 (66) 95 High Flow N/C 6.00 03/07/19 19:41 36.1 03/07/19 19:24 94 Nasal Cannula 4.00 03/07/19 19:24 94 Nasal Cannula 3.00 03/07/19 19:00 103 03/07/19 19:00 103 20 161/45 (83) 92 High Flow N/C 6.00 03/07/19 17:00 102 27 172/49 (90) 92 High Flow N/C 6.00 03/07/19 16:00 94 High Flow N/C 6.00 03/07/19 16:00 101 18 134/43 (73) 94 High Flow N/C 6.00 03/07/19 15:43 36.5 03/07/19 15:27 91 Nasal Cannula 3.00 03/07/19 15:00 109 22 125/44 (71) 91 High Flow N/C 6.00 03/07/19 14:00 102 19 102/39 (60) 94 High Flow N/C 6.00 03/07/19 13:00 97 18 90/39 (56) 96 High Flow N/C 6.00 03/07/19 12:58 95 03/07/19 12:00 112 25 121/41 (67) 90 High Flow N/C 6.00 03/07/19 12:00 94 High Flow N/C 6.00 03/07/19 11:00 111 28 133/43 (73) 94 High Flow N/C 6.00 03/07/19 10:55 94 Nasal Cannula 3.00 03/07/19 10:00 105 20 106/39 (61) 94 High Flow N/C 6.00 03/07/19 09:00 112 30 110/39 (62) 93 High Flow N/C 6.00 I & O 03/08/19 07:00 Intake Total 3500 ml Output Total 1780 ml Balance 1720 ml Height & Weight Height: 5'5.00" Weight: 160lbs. 0.0oz. 72.135599nm; 21.79 BMI Method:Stated General Appearance: WD/WN, Anxious, Chronically ill, Moderate Distress HEENT: PERRL/EOMI, Moist Mucous Membranes, Other Respiratory: No Respiratory Distress, Decreased Breath Sounds Cardiovascular: No Murmur, Tachycardia, Other (regular rhythm) Capillary Refill: Less Than 3 Seconds Peripheral Pulses: 2+ Radial Pulses (R), 2+ Radial Pulses (L) Gastrointestinal: soft, guarding, other (Midline incision, VAC in place, ileostomy pink and with output) Extremity: Non Tender, Pedal Edema Neurologic/Psychiatric: Alert, Disoriented Skin: Warm/Dry Results Lab Laboratory Tests 03/06/19 09:15 03/07/19 03:11 03/08/19 03:15 Assessment/Plan Assessment/Plan Acute respiratory failure with hypoxia -Give incentive spirometry. -DuoNeb with easy PAP -Restart BiPAP -Pt may need reintubation Acute worsening anemia -Repeat CT of Chest/abd/pelvis -Transfuse 2 units of PRBC -Check PT, PTT, INR -H&H Q6 -I discussed with Dr. Willett perforated abdominal viscus s/p repeat surgery with resection -Cont Merrem and Eraxis Protein jorge malnutrition with low albumin - Fungemia secondary to abdominal perforation -Echo shows diastolic dysfunction -Repeat BC collected 03/07 -Eraxis Acute renal failure - worsening - Pt is being transfused currently -Repeat Labs at 1400 -IVF and continue to monitor Grade 1 diastolic dysfunction -Monitor Afib - currently sinus -Pt is getting lovenox therapeutic dosing DM II Debility -PT/OT protein jorge malnutrition JAZMYNE THOMPSON DO Mar 08, 2019 08:04 POS
--- NOTE | 2019-03-08 08:19 | Cardiology Progress Note ---
Subjective Date Seen by Provider: Mar 08, 2019 Time Seen by Provider: 08:16 Subjective/Events-last exam Patient is lying down in bed, lethargic, short of breath. Review of Systems General: Fatigue, Malaise Pulmonary: Dyspnea Cardiovascular: Edema Focused Exam Lactate Level 03/07/19 05:35: Lactic Acid Level 2.34*H 03/07/19 09:15: Lactic Acid Level 2.26*H 03/08/19 03:15: Lactic Acid Level 1.24 Time of Focused Exam: 22:00 Objective-Cardiology Exam Last Set of Vital Signs Vital Signs 03/06/19 03/08/19 03/08/19 03/08/19 03/08/19 05:58 04:42 06:00 07:13 07:14 Temp 36.5 Pulse 96 Resp 17 B/P (MAP) 172/44 (86) Pulse Ox 92 O2 Delivery NIV Bilevel O2 Flow Rate 70.00 FiO2 30 Capillary Refill : Less Than 3 SecondsLess Than 3 Seconds I&O Intake and Output 03/08/19 00:00 Intake Total 4075 ml Output Total 1180 ml Balance 2895 ml Intake Oral 325 ml IV Total 3750 ml Output Urine Total 280 ml Drainage Total 900 ml General: Alert, Cooperative, Moderate Distress HEENT: Atraumatic Neck: Supple, No Thyromegaly Lungs: Normal Air Movement, Other (Bilateral rhonchi) Heart: Regular Rate, Normal S1, Normal S2, No Murmurs Abdomen: No Masses, Other (Diminished bowel sounds) Extremities: No Clubbing, No Cyanosis, Normal Pulses, No Tenderness/Swelling, Other (Bilateral edema) Skin: No Rashes Neuro: Normal Speech Psych/Mental Status: Mental Status NL Results Lab Laboratory Tests 03/08/19 03:15 A/P-Cardiology Admission Diagnosis Acute respiratory failure Paroxysmal atrial fibrillation Coronary artery disease Hypertension Assessment/Plan Sepsis, multiple abdominal surgery, recovering slowly, CT of the abdomen showed free air with loculated pleural effusion, managed by general surgeon Anemia, worse at this time, receiving blood transfusion Fungemia, sepsis, echocardiogram did not show vegetation, receiving fluconazole, I am hesitant to proceed with [place] this time due to recent perforated bowel, patient is being treated at this point. Echo did not show any significant valvular involvement Status post respiratory failure, still having shortness of breath on BiPAP, managed by Dr. Martinez Paroxysmal atrial fibrillation, currently in sinus rhythm, blood pressure is stable, continue to monitor Labile hypertension, blood pressure is better today. Continue to monitor S/p small bowel resection secondary to perf at anastomosis site, another surgery was done on March 06, 2019, recovering slowly. Coronary artery disease, history of cardiac catheterization in July 2012 showing 50 percent midright coronary artery stenosis, nonobstructive disease, had a borderline disease in the midright coronary artery. Most recent cardiac catheterization done April 2018 revealed mild ectasia in the proximal LAD with mild disease in the mid LAD, small vessel disease distally, mild ectasia in the proximal circumflex artery and 40-50 percent stenosis in the mid right coronary artery, nonobstructive disease, continue to monitor History of colon cancer, history of colon resection and colostomy in the remote past has been in remission and followed by Dr. Branham History of hyperlipidemia Carotid artery stenosis , continue to monitor as outpatient. Syncope, had a syncopal episode in October 2015 probably due to dehydration. Was in renal failure. Improved. History of thyroid nodules noted on ultrasound, followed by Dr. Branham and Dr. Simmons Diabetes mellitus, followed and managed by primary care physician. History of colon cancer, history of colostomy. Currently in remission. Followed by Dr. Branham Family history of coronary artery disease. Obstructive sleep apnea, intolerance to CPAP History of appendectomy, kidney stones, hysterectomy. Breast biopsy. Clinical Quality Measures DVT/VTE Risk/Contraindication: Risk Factor Score Per Nursin RFS Level Per Nursing on Admit: 4+=Very High NAYA URIAS MD Mar 08, 2019 08:18 POS
[2019-03-08] MEDS: PANTOPRAZOLE 40 MG (PROTONIX) VIAL IV SCH (09:30)
[2019-03-08] MEDS: ANIDULAFUNGIN INJECTION 100 MG in NS (IVPB) 100 ML IV SCH (10:00)
--- NOTE | 2019-03-08 10:07 | Physical Therapy Progress Note ---
Therapy Progress Note Patient to undergo additional surgery; family and nursing agreed to hold therapy at this time. 0 tx. CHIDI AMAYA PT Mar 08, 2019 10:06 POS
[2019-03-08] MEDS ORDERED: LACTATED RINGERS 1,000 ML IV PRN (10:11)
--- NOTE | 2019-03-08 10:29 | NUR ---
CALORIE COUNT 03/07: Breakfast - 0 kcal Lunch - 0 kcal Dinner - 50% grape juice; 200 kcal of Ensure = 230 kcal (approx 12% est. needs of 1900 kcal/day) Assessment: Pt is not meeting their needs on their own. Would recommend enteral nutrition soon if PO intake continues to remain below 25% of needs. Will continue to follow and reassess as needed. Ambrose Cuenca MS, RD, LD O: Ext 133 C: [phone] (call/text)
--- NOTE | 2019-03-08 10:51 | NUR ---
PALLIATIVE CARE RN in to see patient and talk to family. Daughter/POA in room. Briefly discussed the patient medical status and offered support as it was known that this is a hard place to be in. Daughter was distant, without much interaction or engagement .. Offered support and told her to call with needs. Patient is intended to return to her 4th surgery today. He kidney function is not great and BUN/Cr are increasing. Will continue to watch and monitor for support needs.
--- NOTE | 2019-03-08 10:56 | Occ Therapy Progress Note ---
Therapy Progress Note Pt scheduled to return to OR today for further surgical intervention. Will hold therapy at this time and continue to follow. DEL ESCOBAR OT Mar 08, 2019 10:55 POS
[2019-03-08] MEDS ORDERED: LIDOCAINE PF 2% 5 ML (XYLOCAINE) VIAL ONE ×3 (10:59→14:00)
[2019-03-08] MEDS ORDERED: ROCURONIUM 10 MG/ML 5 ML SYRINGE IV ONE ×3 (10:59→14:58)
[2019-03-08] MEDS ORDERED: proPOfol 200 MG/20 ML (DIPRIVAN) VIAL IV ONE ×2 (10:59→13:22)
[2019-03-08] MEDS ORDERED: NEOSTIGMINE 3 MG/3 ML VIAL ONE (10:59)
[2019-03-08] MEDS ORDERED: GLYCOPYRROLATE 0.2 MG/ML (ROBINUL) 2 ML VIAL ONE (10:59)
[2019-03-08] MEDS ORDERED: ONDANSETRON 4 MG/2 ML (SDV) Z0FRAN ONE (10:59)
[2019-03-08] MEDS ORDERED: fentaNYL INJECTION 100 MCG/2 ML AMP ONE ×2 (10:59→13:22)
[2019-03-08] MEDS ORDERED: SEVOFLURANE (ULTANE) 15 ML INHAL SOLN ONE ×9 (10:59→14:58)
--- NOTE | 2019-03-08 11:14 | Progress Note - Hospitalist ---
Subjective HPI/CC On Admission Date Seen by Provider: Mar 08, 2019 Time Seen by Provider: 08:30 abdominal pain Subjective/Events-last exam She is feeling weak this morning. She denies any pain complaints. She denies fever and chills. She denies any nausea and vomiting. Focused Exam Lactate Level 03/07/19 05:35: Lactic Acid Level 2.34*H 03/07/19 09:15: Lactic Acid Level 2.26*H 03/08/19 03:15: Lactic Acid Level 1.24 Time of Focused Exam: 22:00 Objective Exam Vital Signs Vital Signs Date Time Temp Pulse Resp B/P (MAP) Pulse Ox O2 Delivery O2 Flow Rate FiO2 03/08/19 10:05 86 13 97 50.00 03/08/19 10:05 NIV Bilevel 03/08/19 10:00 141/37 (71) 03/08/19 09:46 36.5 03/08/19 08:00 70 Capillary Refill : Less Than 3 SecondsLess Than 3 Seconds General Appearance: No Apparent Distress, Chronically ill HEENT: PERRL/EOMI, Pharynx Normal Neck: Normal Inspection, Supple Respiratory: Lungs Clear, Normal Breath Sounds, No Respiratory Distress, Other (wearing BiPAP) Cardiovascular: Tachycardia Gastrointestinal: Abnormal Bowel Sounds (hypoactive); No Distended; Other (wound VAC and ostomy in place) Results/Procedures Lab Laboratory Tests 03/08/19 03:15 Patient resulted labs reviewed. Imaging: Reviewed Imaging Report Assessment/Plan Assessment and Plan Assess & Plan/Chief Complaint Perforated abdominal viscus -Continue meropenem and eraxis -Planning for repeat surgery today Lactic acidosis Shock -Continue pressors as needed Acute kidney injury Hypernatremia, resolved -Worsening Cr, low urine output -Continue LR Severe protein-calorie malnutrition -Consider tube feeding vs TPN Fungemia -Continue Eraxis Acute hypoxemic respiratory failure -Currently on BiPAP -Pulmonology following Postoperative anemia -s/p 1 unit PRBC 03/06 -Hemoglobin dropped today to 5.4 -2 units PRBC ordered today Hypertension -Blood pressures low -Hold antihypertensives Paroxysmal atrial fibrillation -Hold metoprolol with hypotension -Cardiology following T2DM -Sliding scale insulin Critical illness myopathy -PT/OT Diagnosis/Problems Diagnosis/Problems (1) Perforated abdominal viscus Status: Acute (2) Fungemia Status: Acute (3) Acute respiratory failure Status: Acute Qualifiers: Respiratory failure complication: unspecified whether with hypoxia or hyper capnia Qualified Codes: J96.00 - Acute respiratory failure, unspecified wheth er with hypoxia or hypercapnia (4) Essential hypertension Status: Chronic (5) Critical illness myopathy Status: Acute (6) IDDM (insulin dependent diabetes mellitus) Status: Chronic Clinical Quality Measures DVT/VTE Risk/Contraindication: Risk Factor Score Per Nursin RFS Level Per Nursing on Admit: 4+=Very High NAIMA ROMAN MD Mar 08, 2019 11:14 POS
--- NOTE | 2019-03-08 12:49 | Progress Note - Surgery ---
BRITTANY RHODES,MED STUDENT 03/08/19 1249: Subjective Date Seen by a Provider: Mar 08, 2019 Time Seen by a Provider: 12:34 Subjective/Events-last exam Patient has been complaining of increased abdominal pain and is on Bipap. X-ray shows free air again. Creatinine increased to 3.06 today. The family states that they are considering a PEG tube placement for her in the future. Focused Exam Lactate Level 03/07/19 05:35: Lactic Acid Level 2.34*H 03/07/19 09:15: Lactic Acid Level 2.26*H 03/08/19 03:15: Lactic Acid Level 1.24 Time of Focused Exam: 22:00 Objective Exam Vital Signs Date Time Temp Pulse Resp B/P (MAP) Pulse Ox O2 Delivery O2 Flow Rate FiO2 03/08/19 12:00 36.5 03/08/19 12:00 86 12 172/43 (86) 98 NIV Bilevel 50.00 03/08/19 11:00 87 14 148/38 (74) 96 NIV Bilevel 50.00 03/08/19 10:05 86 13 97 50.00 03/08/19 10:05 NIV Bilevel 50.00 03/08/19 10:00 80 12 141/37 (71) 97 NIV Bilevel 70.00 03/08/19 09:46 36.5 89 18 149/38 Vapotherm 40.00 03/08/19 09:00 93 16 154/43 (80) 99 NIV Bilevel 70.00 03/08/19 08:00 36.8 95 19 165/44 99 NIV CPAP 70 03/08/19 08:00 36.6 03/08/19 08:00 96 28 169/44 (85) 100 NIV Bilevel 70.00 03/08/19 07:14 NIV Bilevel 70.00 03/08/19 07:13 96 17 92 70.00 03/08/19 07:00 102 03/08/19 07:00 101 17 177/43 (87) 91 Vapotherm 35.00 70.00 03/08/19 06:00 93 22 172/44 (86) 95 Vapotherm 35.00 70.00 03/08/19 05:23 Vapotherm 35.00 70.00 03/08/19 05:21 Vapotherm 35.00 65.00 03/08/19 05:00 108 22 168/36 (80) 91 High Flow N/C 6.00 03/08/19 04:42 36.5 107 21 158/35 91 High Flow N/C 6.00 03/08/19 04:28 36.7 105 20 160/38 90 High Flow N/C 6.00 03/08/19 04:00 102 24 164/46 (85) 91 High Flow N/C 6.00 03/08/19 03:45 36.6 High Flow N/C 6.00 03/08/19 03:45 92 High Flow N/C 6.00 03/08/19 03:00 100 26 151/42 (78) 91 High Flow N/C 6.00 03/08/19 02:00 102 26 152/41 (78) 89 High Flow N/C 6.00 03/08/19 01:00 99 23 153/41 (78) 94 High Flow N/C 6.00 03/08/19 01:00 99 03/08/19 00:14 99 27 167/42 (83) 90 High Flow N/C 6.00 03/08/19 00:00 96 26 177/43 (87) 92 High Flow N/C 4.00 03/07/19 23:45 94 High Flow N/C 4.00 03/07/19 23:00 36.6 86 17 141/40 (73) 98 High Flow N/C 4.00 03/07/19 22:00 102 17 146/42 (76) 95 High Flow N/C 4.00 03/07/19 21:54 94 Nasal Cannula 3.00 03/07/19 21:00 106 29 162/42 (82) 95 High Flow N/C 4.00 03/07/19 20:00 94 High Flow N/C 4.00 03/07/19 20:00 107 18 116/42 (66) 95 High Flow N/C 6.00 03/07/19 19:41 36.1 03/07/19 19:24 94 Nasal Cannula 4.00 03/07/19 19:24 94 Nasal Cannula 3.00 03/07/19 19:00 103 03/07/19 19:00 103 20 161/45 (83) 92 High Flow N/C 6.00 03/07/19 17:00 102 27 172/49 (90) 92 High Flow N/C 6.00 03/07/19 16:00 94 High Flow N/C 6.00 03/07/19 16:00 101 18 134/43 (73) 94 High Flow N/C 6.00 03/07/19 15:43 36.5 03/07/19 15:27 91 Nasal Cannula 3.00 03/07/19 15:00 109 22 125/44 (71) 91 High Flow N/C 6.00 03/07/19 14:00 102 19 102/39 (60) 94 High Flow N/C 6.00 03/07/19 13:00 97 18 90/39 (56) 96 High Flow N/C 6.00 03/07/19 12:58 95 I & O 03/08/19 07:00 Intake Total 3500 ml Output Total 1780 ml Balance 1720 ml Capillary Refill : Less Than 3 SecondsLess Than 3 Seconds General Appearance: No Apparent Distress, Chronically ill Respiratory: No Respiratory Distress, Other (wearing BiPAP) Cardiovascular: Regular Rate, Rhythm, No Murmur Peripheral Pulses: 2+ Radial Pulses (R), 2+ Radial Pulses (L) Gastrointestinal: soft, other (Midline incision, VAC in place, ileostomy pink and with output) Neurologic/Psychiatric: Alert, Disoriented Skin: Warm/Dry, Pallor Results Lab Laboratory Tests 03/07/19 16:50: Glucometer 107 03/07/19 21:29: Glucometer 130H 03/08/19 03:15: White Blood Count 12.4H, Red Blood Count 1.70L, Hemoglobin 5.4#*L, Hematocrit 17*L, Mean Corpuscular Volume 97, Mean Corpuscular Hemoglobin 32, Mean Corpuscular Hemoglobin Concent 33, Red Cell Distribution Width 15.6H, Platelet Count 176, Mean Platelet Volume 9.8, Neutrophils (%) (Auto) 84H, Lymphocytes (%) (Auto) 7L, Monocytes (%) (Auto) 9, Eosinophils (%) (Auto) 0, Basophils (%) (Auto) 0, Neutrophils # (Auto) 10.5H, Lymphocytes # (Auto) 0.9L, Monocytes # (Auto) 1.1H, Eosinophils # (Auto) 0.0, Basophils # (Auto) 0.0, Sodium Level 139, Potassium Level 4.8, Chloride Level 105, Carbon Dioxide Level 23, Anion Gap 11, Blood Urea Nitrogen 80H, Creatinine 3.06#H, Estimat Glomerular Filtration Rate 15, BUN/Creatinine Ratio 26, Glucose Level 139H, Lactic Acid Level 1.24, Calcium Level 7.3L, Phosphorus Level 7.0H, Magnesium Level 1.8 03/08/19 05:17: Blood Gas Puncture Site RIGHT RADIAL, Blood Gas Patient Temperature 36.7, Arterial Blood pH 7.33*L, Arterial Blood Partial Pressure CO2 48H, Arterial Blood Partial Pressure O2 60L, Arterial Blood HCO3 25, Arterial Blood Total CO2 26.4, Arterial Blood Oxygen Saturation 87L, Arterial Blood Base Excess -0.3, Kenny Test ART LINE, Blood Gas Ventilator Setting NO, Blood Gas Inspired Oxygen 30% 03/08/19 10:44: Glucometer 126H Microbiology 02/24/19 Blood Culture - Final, Complete Marilia albicans See Comments 03/06/19 Gram Stain - Final, Resulted 03/06/19 Sputum Culture - Preliminary, Resulted YEAST 02/24/19 Urine Culture - Final, Complete NO GROWTH 03/05/19 Gram Stain - Final, Resulted 03/05/19 Anaerobic Culture - Preliminary, Resulted No anaerobes isolated 03/05/19 Surgical Culture - Preliminary, Resulted Marilia species Assessment/Plan Assessment/Plan Assessment/Plan S/P Ex-Lap with SBR B/L Pleural effusion with atelectasis Acute Renal Insufficiency Plan is to take patient back to OR today for exploratory laparotomy due to free air seen again on X-ray. If the anastomosis has failed again, will consider placing a second ileostomy on the left side. Advised the family that a PEG tube will likely have to wait until infection risk decreases. Explained the benefits and risks of procedure and answered all questions to family's satisfaction. Clinical Quality Measures DVT/VTE Risk/Contraindication: Risk Factor Score Per Nursin RFS Level Per Nursing on Admit: 4+=Very High MISSY WILLETT DO 03/08/19 1317: Subjective Time Seen by a Provider: 12:34 Subjective/Events-last exam Pt seen and examined with family at the bedside. Pt complains of pain. Assessment/Plan Assessment/Plan Assessment/Plan I explained to the family what we found on X-ray, unfortunately she has a large amount of free air; more than should be there after recent surgery. She may need an ileostomy and we also talked about nutrition after this case. I also mentioned the possibility of Dialysis (temporary) because of the increasing creatnine. I told them we were not definitely going to need Dialysis, but it was possibility. I also explained to the family that she is very sick and will have an even tougher time recovering because she has had so many (it will be her 4th). They understood and want us to do whatever we can/need to for her. Supervisory-Addendum Brief Verification & Attestation Participated in pt care: history, MDM, physical Personally performed: exam, MDM Care discussed with: Medical Student Procedures: n/a Verification and Attestation of Medical Student E/M Service A medical student performed and documented this service in my presence. I reviewed and verified all information documented by the medical student and made modifications to such information, when appropriate. I personally performed the physical exam and medical decision making. Missy Willett, Mar 08, 2019,13:17 BRITTANY RHODES,MED STUDENT Mar 08, 2019 12:49 MISSY JAMES DO Mar 08, 2019 13:17 POS
--- NOTE | 2019-03-08 13:00 | NUR ---
PATIENT TO OR VIA CART ACCOMPANIED BY OR STAFF.
[2019-03-08 13:31] LABS: HEMOGLOBIN 9.2 G/DL (11.5-16.0)
--- NOTE | 2019-03-08 13:49 | NUR ---
Follow up visit with pt's daughter Jeni and daughter in law. Jeni said the pt was placed back on bi-pap today. Offered empathic listening for stressors and emotional fatigue, and encouraged positive coping.
[2019-03-08] MEDS ORDERED: PHENYLEPHRINE 100 MCG/ML 10 ML (ANESTHESIA) SYR ONE (14:00)
[2019-03-08] MEDS ORDERED: PHENYLEPHRINE INJ 10 MG/ML (FOR DRIP KITS ONLY) ONE (14:00)
[2019-03-08] MEDS: LACTATED RINGERS 1,000 ML IV SCH ×3 (14:20→22:00)
[2019-03-08] MEDS ORDERED: EPINEPHrine INJECTION 1 MG/ML AMP ONE ×2 (14:42→14:57)
--- NOTE | 2019-03-08 14:54 | Progress Note-Post Operative ---
Post-Operative Progess Note Surgeon (s)/Chip Loft Worker (s) Surgeon MISSY MONTEJO DO Chip Loft Worker: Noel Pre-Operative Diagnosis Pneumoperitoneum, Hydroperitoneum, B/L Pleural Effusion, Resp Failure Post-Operative Diagnosis perforation at anastomosis Procedure & Operative Findings Date of Procedure 03/08/19 Procedure Performed/Findings Ex Lap with repair of anastomotic perforation Abd washout with drain placement x 3 Abthera wound vac placement Anesthesia Type GET Estimated Blood Loss Estimated blood loss (mL): minimal Specimens/Packing Specimens Removed none MISSY MONTEJO DO Mar 08, 2019 14:54 POS
[2019-03-08] MEDS ORDERED: SUCCINYLCHOLINE INJ 100 MG/5 ML SYR ONE (14:56)
[2019-03-08] MEDS ORDERED: fentaNYL INJECTION 100 MCG/2 ML AMP IVP ONE (15:15)
[2019-03-08] MEDS ORDERED: ONDANSETRON 4 MG/2 ML (SDV) Z0FRAN IVP PRN (15:15)
[2019-03-08] MEDS ORDERED: MEPERIDINE (DEMEROL) INJ 50 MG/ML IVP ONE (15:15)
[2019-03-08] MEDS ORDERED: morphine INJ 10 MG/ML 1ML (SYR OR VIAL) IVP ONE (15:15)
[2019-03-08] MEDS ORDERED: PROPOFOL DRIP (ICU) 100 ML IV ONE (15:29)
[2019-03-08] MEDS ORDERED: DEXMEDETOMIDINE INJECTION 1,000 MCG in NS (IVPB) 250 ML IV SCH (15:30)
[2019-03-08] MEDS: PROPOFOL DRIP (ICU) 100 ML IV SCH ×2 (15:40→22:53)
[2019-03-08] MEDS ORDERED: DEXMEDETOMIDINE INJECTION 1,000 MCG in NS (IVPB) 240 ML IV SCH (16:00)
--- NOTE | 2019-03-08 16:51 | Diagnostic Imaging Report ---
INDICATION: Intubation. COMPARISON: Imaging from the same date. TECHNIQUE: Single frontal radiograph of the chest dated March 08, 2019. FINDINGS: Interval placement of an endotracheal tube with the distal tip overlying the tracheal air column approximately 1.8 cm above the level of the nomi. Recommend retraction of near 2 cm for optimal positioning. Right-sided PICC line is stable. Possible catheters are seen overlying the bilateral lung bases/upper abdomen. The cardiac silhouette is stable. Moderate sized right-sided pleural effusion appears slightly improved since the prior examination. Tiny left pleural effusion appears improved. Vague bilateral pulmonary opacities, right greater than left, also appear improved. No new focal pulmonary opacity. No pneumothorax. No acute osseous abnormality. IMPRESSION: 1. Interval intubation with the endotracheal tube slightly low lying. Recommend retraction of near 2 cm for optimal positioning. 2. Improved aeration of the lungs with persisting moderate right and small left pleural-parenchymal opacities. 3. Catheter/tubing overlying the lateral lower chest/upper abdomen, possibly related to chest tubes. Recommend clinical correlation. 4. Additional findings as above. Report was called to patient's nurse, Junie, in the [facility] at 4:46 p.m., by erika (for IS). Dictated by: Dictated on workstation # [id number]
[2019-03-08 17:00] LABS: ABG BASE EXCESS -1.8 MMOL/L (-2.5-2.5); ABG OXYGEN SATURATION 87 % (94-100); ABG PCO2 43 MMHG (35-45); ABG PH 7.35 (7.37-7.43); ABG PO2 56 MMHG (79-93); ABG TCO2 24.4 MMOL/L (21.0-31.0)
[2019-03-08 17:01] LABS: ALLENS TEST POSITIVE; PATIENT TEMP 36.6; VENTILATOR YES
[2019-03-08 17:05] LABS: HEMOGLOBIN 7.2 G/DL (11.5-16.0)
[2019-03-08 17:24] LABS: INR 1.9 (0.8-1.4); PROTHROMBIN TIME PATIENT 22.5 SEC (12.2-14.7)
[2019-03-08 17:30] LABS: ALBUMIN 1.5 GM/DL (3.2-4.5); CREATININE SERUM 2.01 MG/DL (0.60-1.30); PHOSPHORUS 5.7 MG/DL (2.3-4.7); POTASSIUM 3.9 MMOL/L (3.6-5.0); TOTAL PROTEIN 2.9 GM/DL (6.4-8.2)
[2019-03-08 17:32] LABS: CALCIUM 5.9 MG/DL (8.5-10.1)
--- NOTE | 2019-03-08 17:40 | NUR ---
Dr Martinez notified of lab results.
[2019-03-08] MEDS ORDERED: NS IV 500 ML 500 ML ONE (22:08)
[2019-03-09] VITALS (34 sets, daily range): BP systolic 111–185; BP diastolic 32–48
[2019-03-09] MEDS: meTOprolol 5 MG/5 ML (LOPRESSOR) VIAL IV SCH (00:15)
[2019-03-09] MEDS: inSUlin ASPART (NovoLOG) 1 UNIT/0.01 ML (CHARGE PER UNIT) SQ SCH ×4 (00:16→18:00)
[2019-03-09 00:31] LABS: HEMOGLOBIN 10.5 G/DL (11.5-16.0)
--- NOTE | 2019-03-09 01:29 | OPERATIVE REPORT ---
DATE OF SERVICE: 03/08/2019 PREOPERATIVE DIAGNOSES: Pneumoperitoneum, hydroperitoneum, bilateral pleural effusion, respiratory failure. POSTOPERATIVE DIAGNOSES: Pneumoperitoneum, hydroperitoneum, bilateral pleural effusion, respiratory failure plus perforation anastomosis. PROCEDURES: 1. Exploratory laparotomy, repair of anastomotic perforation. 2. Abdominal washout with drain placement x3. 3. ABThera wound VAC placement. SURGEON: Jung Willett DO. SLITTER CUT OFF OPERATOR: Jordin Cohen DO. ANESTHESIA: General endotracheal tube. SPECIMENS: None. BLOOD LOSS: Minimal. FLUIDS: Per anesthesia. POSTOPERATIVE CONDITION: Stable. INDICATION FOR PROCEDURE: The patient is a 73-year-old female who unfortunately has been having a hard time recovering from her initial surgery. She had a lot of purulent fluid and biofilm fecal contamination in the abdomen and had a previous anastomotic failure, thought that this may be the same case at this time because she again had increased fluid and tense abdomen as well as more free air. FINDINGS: The patient had a very small perforation right at the corner of her enteroenterotomy anastomosis at the staple line. PROCEDURE NOTE: After informed consent was obtained, the patient was brought to the operating room, placed on the table in supine position. She was sterilely prepped and draped in normal fashion, opened the midline incision removing the suture previously placed, immediately got out lot of greenish-brownish serous fluid. There was a little bit of blood. Once we got all suctioned out, ran the small intestine again and found a small opening in the corner of the anastomotic site. I elected to oversew this with 3-0 silk suture to close this. At this point, I then carefully suctioned out all the fluid above the liver as well as above the stomach and spleen. Copiously irrigated with warm normal saline, approximately 3 to 4 liters of warm normal saline was used. Discussed possible ileostomy; however, it looked like it was okay and the rest of the intestine looked okay and did want to resect too much of this intestine, so at this point after thoroughly washing this out, we elected to place three drains, one up under the right diaphragm above the liver, one in the left diaphragm and then one down in the pelvis and then elected to place an ABThera wound VAC to leave the abdomen open with a plan to go back either Monday or Monday to again washout and checked the anastomosis. Once this up, ABThera was placed. Abdomen was cleaned and dried and then dressing placed over this and then the ABThera wound VAC was hooked up. The patient tolerated the procedure and transferred back to ICU in stable condition. Sponge, instrument and needle count correct at the end of the case. Job ID: [id number] DocumentID: [id number] Dictated Date: 03/08/2019 18:27:35 Seed Cleaning Manager Date: 03/09/2019 01:28:54 Dictated By: JUNG WILLETT DO
[2019-03-09] MEDS: MEROPENEM 500 MG/SWFI 10 ML IV PUSH IV SCH ×4 (02:03→14:30)
[2019-03-09 03:14] LABS: BASOPHILS % (AUTO) 0 % (0-10); EOSINOPHILS # (AUTO) 0.1 10^3/uL (0.0-0.3); EOSINOPHILS % (AUTO) 1 % (0-10); HEMATOCRIT 31 % (35-52); HEMOGLOBIN 10.6 G/DL (11.5-16.0); LYMPHOCYTES # (AUTO) 0.8 X 10^3 (1.0-4.0); LYMPHOCYTES % (AUTO) 9 % (12-44); MEAN CORPUSCULAR HEMOGLOBIN 30 PG (25-34); MEAN CORPUSCULAR HGB CONC 34 G/DL (32-36); MEAN CORPUSCULAR VOLUME 88 FL (80-99); MEAN PLATELET VOLUME 10.3 FL (7.4-10.4); MONOCYTES # (AUTO) 0.8 X 10^3 (0.0-1.0); MONOCYTES % (AUTO) 9 % (0-12); NEUTROPHILS # (AUTO) 7.6 X 10^3 (1.8-7.8); NEUTROPHILS % (AUTO) 82 % (42-75); PLATELET COUNT 194 10^3/uL (130-400); RED CELL DISTRIBUTION WIDTH 17.9 % (10.0-14.5); WHITE BLOOD COUNT 9.3 10^3/uL (4.3-11.0)
[2019-03-09 03:15] LABS: ABG BASE EXCESS -1.1 MMOL/L (-2.5-2.5); ABG OXYGEN SATURATION 93 % (94-100); ABG PCO2 42 MMHG (35-45); ABG PH 7.37 (7.37-7.43); ABG PO2 67 MMHG (79-93); ABG TCO2 24.9 MMOL/L (21.0-31.0); ALLENS TEST ART LINE
[2019-03-09 03:16] LABS: INSPIRED O2 30%; PATIENT TEMP 36.5; VENTILATOR YES
[2019-03-09 03:25] LABS: INR 1.5 (0.8-1.4); PROTHROMBIN TIME PATIENT 18.6 SEC (12.2-14.7)
[2019-03-09 03:52] LABS: CALCIUM 7.6 MG/DL (8.5-10.1); CREATININE SERUM 2.23 MG/DL (0.60-1.30); MAGNESIUM 1.8 MG/DL (1.6-2.4); POTASSIUM 4.9 MMOL/L (3.6-5.0)
[2019-03-09] MEDS: LACTATED RINGERS 1,000 ML IV SCH ×3 (03:52→16:01)
[2019-03-09] MEDS: KCL 20 MEQ TAB (K-DUR) PO SCH (03:58)
[2019-03-09] MEDS: POTASSIUM CL 10MEQ/50ML IVPB 50 ML IV SCH (03:58)
[2019-03-09] MEDS: MAGNESIUM 1 GM/100 ML IVPB 100 ML IV SCH (03:58)
--- NOTE | 2019-03-09 05:18 | Pulmonary Progress Note ---
Subjective Time Seen by a Provider: 06:32 Subjective/Events-last exam Pt is intubated from surgery yesterday. Sepsis Event Evaluation Height, Weight, BMI Height: 5'5.00" Weight: 160lbs. 0.0oz. 72.038659sf; 21.79 BMI Method:Stated Focused Exam Lactate Level 03/07/19 09:15: Lactic Acid Level 2.26*H 03/08/19 03:15: Lactic Acid Level 1.24 03/09/19 00:05: Lactic Acid Level 1.32 Time of Focused Exam: 22:00 Exam Exam Vital Signs Date Time Temp Pulse Resp B/P (MAP) Pulse Ox O2 Delivery O2 Flow Rate FiO2 03/09/19 04:00 36.7 58 17 141/44 (76) 96 Mechanical Ventilator 30.00 03/09/19 03:43 36 Mechanical Ventilator 30 03/09/19 03:00 36.6 60 18 112/40 (64) 95 Mechanical Ventilator 30.00 03/09/19 02:34 Mechanical Ventilator 30.00 03/09/19 02:30 58 18 95 30 03/09/19 02:00 36.4 64 15 127/38 (67) 98 Mechanical Ventilator 40.00 03/09/19 01:00 36.1 65 16 137/44 (75) 98 Mechanical Ventilator 40.00 03/09/19 01:00 65 03/09/19 00:10 95 Mechanical Ventilator 40 03/09/19 00:08 35.8 65 16 122/48 99 Mechanical Ventilator 40 03/09/19 00:00 35.8 65 15 142/44 (76) 99 Mechanical Ventilator 40.00 03/08/19 23:00 35.6 62 15 137/45 (75) 98 Mechanical Ventilator 40.00 03/08/19 22:53 100/37 03/08/19 22:47 35.7 61 16 132/45 96 Mechanical Ventilator 40 03/08/19 22:40 Mechanical Ventilator 40.00 03/08/19 22:40 64 16 97 40 03/08/19 22:34 35.2 03/08/19 22:23 35.2 64 16 113/40 96 Mechanical Ventilator 45 03/08/19 22:00 66 16 144/45 (78) 96 Mechanical Ventilator 45.00 03/08/19 21:00 67 15 138/44 (75) 95 Mechanical Ventilator 45.00 03/08/19 20:25 95 Mechanical Ventilator 50 03/08/19 20:00 67 16 124/43 (70) 95 Mechanical Ventilator 45.00 03/08/19 19:00 64 03/08/19 19:00 64 16 135/44 (74) 95 Mechanical Ventilator 45.00 03/08/19 18:50 Mechanical Ventilator 45.00 03/08/19 18:50 64 16 95 50 03/08/19 18:00 36.6 64 15 138/72 (94) 96 Mechanical Ventilator 50.00 03/08/19 17:55 36.6 64 15 138/72 (94) 96 Mechanical Ventilator 50.00 03/08/19 17:11 68 16 95 50 03/08/19 17:00 62 16 119/37 (64) 96 Mechanical Ventilator 50.00 03/08/19 16:00 35.8 03/08/19 16:00 75 15 122/44 (70) 98 Mechanical Ventilator 50.00 03/08/19 16:00 94 Vapotherm 4.00 40 03/08/19 15:50 Mechanical Ventilator 03/08/19 15:50 36.3 16 109/40 (63) 96 Mechanical Ventilator 03/08/19 15:45 Mechanical Ventilator 03/08/19 15:40 36.78146 81 16 151/41 95 Mechanical Ventilator 50.00 03/08/19 15:40 16 114/43 (66) 96 Mechanical Ventilator 03/08/19 15:30 80 16 96 50 03/08/19 15:30 16 123/42 (69) 96 Mechanical Ventilator 03/08/19 15:30 Mechanical Ventilator 03/08/19 15:25 Mechanical Ventilator 50.00 03/08/19 15:20 16 117/43 (67) 99 Mechanical Ventilator 03/08/19 15:15 Mechanical Ventilator 03/08/19 15:15 81 16 130/45 (73) 100 Mechanical Ventilator 60.00 03/08/19 15:10 16 130/45 (73) 100 Mechanical Ventilator 03/08/19 15:08 76 03/08/19 15:07 80 16 100 100 03/08/19 15:03 Mechanical Ventilator 03/08/19 15:03 36.2 16 112/41 (64) 100 Mechanical Ventilator 03/08/19 13:00 97 20 172/39 (83) 93 NIV Bilevel 50.00 03/08/19 12:30 94 Vapotherm 4.00 40 03/08/19 12:00 36.5 03/08/19 12:00 86 12 172/43 (86) 98 NIV Bilevel 50.00 03/08/19 11:00 87 14 148/38 (74) 96 NIV Bilevel 50.00 03/08/19 10:05 86 13 97 50.00 03/08/19 10:05 NIV Bilevel 50.00 03/08/19 10:00 80 12 141/37 (71) 97 NIV Bilevel 70.00 03/08/19 09:46 36.5 89 18 149/38 Vapotherm 40.00 03/08/19 09:00 93 16 154/43 (80) 99 NIV Bilevel 70.00 03/08/19 08:00 36.8 95 19 165/44 99 NIV CPAP 70 03/08/19 08:00 36.6 03/08/19 08:00 94 Vapotherm 4.00 70 03/08/19 08:00 96 28 169/44 (85) 100 NIV Bilevel 70.00 03/08/19 07:14 NIV Bilevel 70.00 03/08/19 07:13 96 17 92 70.00 03/08/19 07:00 102 03/08/19 07:00 101 17 177/43 (87) 91 Vapotherm 35.00 70.00 03/08/19 06:00 93 22 172/44 (86) 95 Vapotherm 35.00 70.00 03/08/19 05:23 Vapotherm 35.00 70.00 03/08/19 05:21 Vapotherm 35.00 65.00 I & O 03/09/19 07:00 Intake Total 1010 ml Output Total 2080 ml Balance -1070 ml Height & Weight Height: 5'5.00" Weight: 160lbs. 0.0oz. 72.974886fp; 21.79 BMI Method:Stated General Appearance: No Apparent Distress, Chronically ill, Other (sedated on vent) HEENT: PERRL/EOMI, Other (ET tube in place) Neck: Supple Respiratory: No Respiratory Distress, Other (wearing BiPAP) Cardiovascular: Regular Rate, Rhythm, No Murmur Capillary Refill: Less Than 3 Seconds Peripheral Pulses: 2+ Radial Pulses (R), 2+ Radial Pulses (L) Gastrointestinal: soft, other (Midline incision, VAC in place, ileostomy pink and with output) Extremity: Normal Capillary Refill, Non Tender, Pedal Edema Neurologic/Psychiatric: Alert, Disoriented Skin: Warm/Dry, Pallor Lymphatic: No Adenopathy Results Lab Laboratory Tests 03/08/19 03:15 03/08/19 13:19 03/08/19 16:44 03/09/19 00:05 03/09/19 03:00 Assessment/Plan Assessment/Plan Acute respiratory failure with hypoxia -Pt was reintubated for surgery yesterday secondary to recurrent abd pe rforation -RN states plan is for repeat surgery tomorrow. I will hold off on weaning vent. hypotension and episodes of bradycardia -Currently on Levophed -D/C clonidine patch -Currently LR at 150 Acute worsening anemia s/p 4 units PRBC -Monitor recurrent perforated abdominal viscus x 3 s/p repeat surgeries with resections -Cont Merrem and Eraxis -Pt went back to surgery yesterday Protein jorge malnutrition with low albumin and anasarca -Start TPN if ok with surgery -Pt has no OG per surgery Fungemia secondary to abdominal perforation -Echo shows diastolic dysfunction -Repeat BC collected 03/07 -Eraxis Acute renal failure with anasarca -IVF and continue to monitor Grade 1 diastolic dysfunction -Monitor Afib - currently sinus DM II Debility -PT/OT Overall prognosis is guarded to poor. Pt is still currently a full code. JAZMYNE THOMPSON DO Mar 09, 2019 05:18 POS
[2019-03-09] MEDS ORDERED: SODIUM BICARB 8.4% 50 MEQ/50 ML VIAL IV ONE (05:30)
[2019-03-09] MEDS ORDERED: HYDROCORTISONE 100 MG/2 ML (Solu-CORTEF) VIAL IV SCH (06:00)
[2019-03-09] MEDS: RT-IPRATROPIUM (ATROVENT) 0.5MG/2.5ML AMP IH SCH ×3 (06:28→18:12)
[2019-03-09] MEDS: RT-FLUTICASONE 220 MCG (FLOVENT) PER PUFF INH SCH ×2 (06:28→18:12)
--- NOTE | 2019-03-09 08:13 | Diagnostic Imaging Report ---
INDICATION: Dyspnea EXAMINATION: Chest 03/09/2019 COMPARISON: 03/08/2019 FINDINGS: Right hemidiaphragm is elevated. Bibasilar infiltrates noted. The heart is stable, pulmonary vasculature congested. There is an ET tube unremarkable in positioning. Right PICC line tip is stable. IMPRESSION: 1. Bibasilar infiltrates. Overall stable chest other than retraction of the ET tube. Dictated by: Dictated on workstation # [id number]
[2019-03-09] MEDS: ANIDULAFUNGIN INJECTION 100 MG in NS (IVPB) 100 ML IV SCH (08:45)
--- NOTE | 2019-03-09 09:53 | Progress Note - Surgery ---
BECCA CHANDLER MED STUDENT 03/09/19 0953: Subjective Date Seen by a Provider: Mar 09, 2019 Time Seen by a Provider: 08:45 Subjective/Events-last exam Patient is on ventilator and sedated, no family with her when seen. She may have nodded when I introduced myself and asked who she was, but otherwise no signs of alertness or attempts of communication from her. Spoke with nursing, who reports family went home last night to rest. She reports that overnight she drained 3L of fluid from woundvac and all drains. She continues to be anemic, although improved from yesterday. Creatinine still high at 2.23. pH is within normal limits at 7.37, her O2 is still low at 62 on ABG. CXR is stable compared to post-op CXR, shows bibasilar infiltrates, elevated R hemidiaphragm. No ROS due to patient's clinical condition. Focused Exam Lactate Level 03/07/19 09:15: Lactic Acid Level 2.26*H 03/08/19 03:15: Lactic Acid Level 1.24 03/09/19 00:05: Lactic Acid Level 1.32 Time of Focused Exam: 22:00 Objective Exam Vital Signs Date Time Temp Pulse Resp B/P (MAP) Pulse Ox O2 Delivery O2 Flow Rate FiO2 03/09/19 09:00 61 16 162/46 (84) 96 Mechanical Ventilator 30.00 03/09/19 08:00 62 16 148/42 (77) 94 Mechanical Ventilator 30.00 03/09/19 07:39 36.7 62 17 147/43 (77) 96 Mechanical Ventilator 30.00 03/09/19 07:36 Mechanical Ventilator 03/09/19 07:00 62 03/09/19 07:00 60 15 111/40 (63) 97 Mechanical Ventilator 30.00 03/09/19 06:28 56 17 96 30 03/09/19 06:00 36.7 55 17 120/40 (66) 96 Mechanical Ventilator 30.00 03/09/19 05:00 36.7 60 16 135/43 (73) 97 Mechanical Ventilator 30.00 03/09/19 04:00 36.7 58 17 141/44 (76) 96 Mechanical Ventilator 30.00 03/09/19 03:43 36 Mechanical Ventilator 30 03/09/19 03:00 36.6 60 18 112/40 (64) 95 Mechanical Ventilator 30.00 03/09/19 02:34 Mechanical Ventilator 30.00 03/09/19 02:30 58 18 95 30 03/09/19 02:00 36.4 64 15 127/38 (67) 98 Mechanical Ventilator 40.00 03/09/19 01:00 36.1 65 16 137/44 (75) 98 Mechanical Ventilator 40.00 03/09/19 01:00 65 03/09/19 00:10 95 Mechanical Ventilator 40 03/09/19 00:08 35.8 65 16 122/48 99 Mechanical Ventilator 40 03/09/19 00:00 35.8 65 15 142/44 (76) 99 Mechanical Ventilator 40.00 03/08/19 23:00 35.6 62 15 137/45 (75) 98 Mechanical Ventilator 40.00 03/08/19 22:53 100/37 03/08/19 22:47 35.7 61 16 132/45 96 Mechanical Ventilator 40 03/08/19 22:40 Mechanical Ventilator 40.00 03/08/19 22:40 64 16 97 40 03/08/19 22:34 35.2 03/08/19 22:23 35.2 64 16 113/40 96 Mechanical Ventilator 45 03/08/19 22:00 66 16 144/45 (78) 96 Mechanical Ventilator 45.00 03/08/19 21:00 67 15 138/44 (75) 95 Mechanical Ventilator 45.00 03/08/19 20:25 95 Mechanical Ventilator 50 03/08/19 20:00 67 16 124/43 (70) 95 Mechanical Ventilator 45.00 03/08/19 19:00 64 03/08/19 19:00 64 16 135/44 (74) 95 Mechanical Ventilator 45.00 03/08/19 18:50 Mechanical Ventilator 45.00 03/08/19 18:50 64 16 95 50 03/08/19 18:00 36.6 64 15 138/72 (94) 96 Mechanical Ventilator 50.00 03/08/19 17:55 36.6 64 15 138/72 (94) 96 Mechanical Ventilator 50.00 03/08/19 17:11 68 16 95 50 03/08/19 17:00 62 16 119/37 (64) 96 Mechanical Ventilator 50.00 03/08/19 16:00 35.8 03/08/19 16:00 75 15 122/44 (70) 98 Mechanical Ventilator 50.00 03/08/19 16:00 94 Vapotherm 4.00 40 03/08/19 15:50 Mechanical Ventilator 03/08/19 15:50 36.3 16 109/40 (63) 96 Mechanical Ventilator 03/08/19 15:45 Mechanical Ventilator 03/08/19 15:40 [id number] 81 16 151/41 95 Mechanical Ventilator 50.00 03/08/19 15:40 16 114/43 (66) 96 Mechanical Ventilator 03/08/19 15:30 80 16 96 50 03/08/19 15:30 16 123/42 (69) 96 Mechanical Ventilator 03/08/19 15:30 Mechanical Ventilator 03/08/19 15:25 Mechanical Ventilator 50.00 03/08/19 15:20 16 117/43 (67) 99 Mechanical Ventilator 03/08/19 15:15 Mechanical Ventilator 03/08/19 15:15 81 16 130/45 (73) 100 Mechanical Ventilator 60.00 03/08/19 15:10 16 130/45 (73) 100 Mechanical Ventilator 03/08/19 15:08 76 03/08/19 15:07 80 16 100 100 03/08/19 15:03 Mechanical Ventilator 03/08/19 15:03 36.2 16 112/41 (64) 100 Mechanical Ventilator 03/08/19 13:00 97 20 172/39 (83) 93 NIV Bilevel 50.00 03/08/19 12:30 94 Vapotherm 4.00 40 03/08/19 12:00 36.5 03/08/19 12:00 86 12 172/43 (86) 98 NIV Bilevel 50.00 03/08/19 11:00 87 14 148/38 (74) 96 NIV Bilevel 50.00 03/08/19 10:05 86 13 97 50.00 03/08/19 10:05 NIV Bilevel 50.00 03/08/19 10:00 80 12 141/37 (71) 97 NIV Bilevel 70.00 03/08/19 09:46 36.5 89 18 149/38 Vapotherm 40.00 I & O 03/09/19 07:00 Intake Total 2010 ml Output Total 3255 ml Balance -1245 ml Capillary Refill : Less Than 3 SecondsLess Than 3 Seconds General Appearance: No Apparent Distress, Chronically ill, Obese, Other (sedated on vent) HEENT: Other (ET tube in place) Neck: Supple; No Carotid Bruit Respiratory: Lungs Clear, No Respiratory Distress, Other (wearing BiPAP) Cardiovascular: Regular Rate, Rhythm, No Gallop, No Murmur, Normal Peripheral Pulses Peripheral Pulses: 2+ Dorsalis Pedis (R), 2+ Left Dors-Pedis (L), 2+ Radial Pulses (R), 2+ Radial Pulses (L) Gastrointestinal: soft, abnormal bowel sounds (hypoactive), tenderness (winced on LUQ palpation), other (Midline incision, VAC in place, ileostomy pink and with output) Extremity: Normal Capillary Refill, Pedal Edema Neurologic/Psychiatric: No Alert Skin: Warm/Dry, Pallor Lymphatic: No Adenopathy Results Lab Laboratory Tests 03/08/19 10:44: Glucometer 126H 03/08/19 13:19: Hemoglobin 9.2#L, Hematocrit 27L 03/08/19 16:44: Hemoglobin 7.2#L, Hematocrit 21L, Prothrombin Time 22.5H, INR Comment 1.9H, Fibrinogen 273, Sodium Level 142, Potassium Level 3.9, Chloride Level 115#H, Carbon Dioxide Level 17L, Anion Gap 10, Blood Urea Nitrogen 65H, Creatinine 2.01H, Estimat Glomerular Filtration Rate 24, BUN/Creatinine Ratio 32, Glucose Level 115H, Calcium Level 5.9*L, Corrected Calcium 7.9L, Phosphorus Level 5.7H, Total Bilirubin 2.0H, Aspartate Amino Transf (AST/SGOT) 59H, Alanine Aminotransferase (ALT/SGPT) 29, Alkaline Phosphatase 33L, Troponin I 0.070H, Total Protein 2.9L, Albumin 1.5L, Triglycerides Level 139 03/08/19 16:52: Blood Gas Puncture Site RIGHT RADIAL, Blood Gas Patient Temperature 36.6, Ar terial Blood pH 7.35L, Arterial Blood Partial Pressure CO2 43, Arterial Blood Partial Pressure O2 56L, Arterial Blood HCO3 23, Arterial Blood Total CO2 24.4, Arterial Blood Oxygen Saturation 87L, Arterial Blood Base Excess -1.8, Kenny Test POSITIVE, Blood Gas Ventilator Setting YES, Blood Gas Inspired Oxygen UNK 03/08/19 17:54: Glucometer 139H 03/08/19 20:50: Stool Occult Blood Immunoassay POSITIVEH 03/09/19 00:05: Hemoglobin 10.5#L, Hematocrit 31L, Potassium Level 5.0, Lactic Acid Level 1.32, Troponin I 0.053H 03/09/19 00:12: Glucometer 162H 03/09/19 03:00: White Blood Count 9.3, Red Blood Count 3.51L, Hemoglobin 10.6L, Hematocrit 31L, Mean Corpuscular Volume 88, Mean Corpuscular Hemoglobin 30, Mean Corpuscular Hemoglobin Concent 34, Red Cell Distribution Width 17.9H, Platelet Count 194, Mean Platelet Volume 10.3, Neutrophils (%) (Auto) 82H, Lymphocytes (%) (Auto) 9L , Monocytes (%) (Auto) 9, Eosinophils (%) (Auto) 1, Basophils (%) (Auto) 0, Neutrophils # (Auto) 7.6, Lymphocytes # (Auto) 0.8L, Monocytes # (Auto) 0.8, Eosinophils # (Auto) 0.1, Basophils # (Auto) 0.0, Prothrombin Time 18.6H, INR Comment 1.5H, Blood Gas Puncture Site RIGHT ART LINE, Blood Gas Patient Temperature 36.5, Arterial Blood pH 7.37, Arterial Blood Partial Pressure CO2 42, Arterial Blood Partial Pressure O2 67L, Arterial Blood HCO3 24, Arterial Blood Total CO2 24.9, Arterial Blood Oxygen Saturation 93L, Arterial Blood Base Excess -1.1, Kenny Test ART LINE, Blood Gas Ventilator Setting YES, Blood Gas Inspired Oxygen 30%, Sodium Level 140, Potassium Level 4.9, Chloride Level 108H, Carbon Dioxide Level 20L, Anion Gap 12, Blood Urea Nitrogen 73H, Creatinine 2.23H, Estimat Glomerular Filtration Rate 21, BUN/Creatinine Ratio 33, Glucose Level 145H, Calcium Level 7.6L, Phosphorus Level 7.0H, Magnesium Level 1.8 Microbiology 03/07/19 Blood Culture - Preliminary, Resulted No growth 03/08/19 Gram Stain - Final, Resulted 03/08/19 Sputum Culture, Resulted Pending 02/24/19 Urine Culture - Final, Complete NO GROWTH 03/05/19 Gram Stain - Final, Resulted 03/05/19 Anaerobic Culture - Preliminary, Resulted No anaerobes isolated 03/05/19 Surgical Culture - Final, Resulted Marilia species Assessment/Plan Assessment/Plan Assessment/Plan Clinical Quality Measures DVT/VTE Risk/Contraindication: Risk Factor Score Per Nursin RFS Level Per Nursing on Admit: 4+=Very High MISSY MONTEJO DO 03/09/19 1312: Subjective Time Seen by a Provider: 10:16 Subjective/Events-last exam Pt seen and examined, sedated on vent. Objective Exam Gastrointestinal: other (Midline incision, VAC in place, ileostomy pink and with output. 3 drains all have minimal serosanguinous fluid, same looking fluid in abthera wound vac) Assessment/Plan Assessment/Plan Assessment/Plan S/P Ex Lap for perforation at anastomosis Renal insufficiency improving ABthera Wound VAC in place Plan to try some sedation holiday, continue vent until we take her back to look and make sure no more anastomosis failures, hopefully then could start some tube feeds, continue IV fluids, pain control since we are stopping propofol, max supportive care Supervisory-Addendum Brief Verification & Attestation Participated in pt care: history, MDM, physical Personally performed: exam, history, MDM Care discussed with: Medical Student Procedures: n/a Verification and Attestation of Medical Student E/M Service A medical student performed and documented this service in my presence. I reviewed and verified all information documented by the medical student and made modifications to such information, when appropriate. I personally performed the physical exam and medical decision making. Missy Montejo, Mar 10, 2019,12:18 BECCA CHANDLER MED STUDENT Mar 09, 2019 09:53 MISSY JAMES DO Mar 09, 2019 13:12 POS
[2019-03-09] MEDS: PANTOPRAZOLE 40 MG (PROTONIX) VIAL IV SCH (10:00)
[2019-03-09] MEDS ORDERED: NS (IVPB) 100 ML ONE (11:29)
[2019-03-09] MEDS ORDERED: 0.9% SODIUM CHLORIDE PF INJ 20 ML VIAL ONE (11:29)
[2019-03-09] MEDS: HYDROCORTISONE 100 MG/2 ML (Solu-CORTEF) VIAL IV SCH ×2 (12:00→18:15)
--- NOTE | 2019-03-09 12:23 | NUR ---
DAUGHTER IN TO SEE PATIENT. UPDATED ON PATIENT CONDITION BY DR QUESADA.
--- NOTE | 2019-03-09 13:31 | Progress Note - Hospitalist ---
Subjective HPI/CC On Admission Date Seen by Provider: Mar 09, 2019 Time Seen by Provider: 09:30 abdominal pain Subjective/Events-last exam She is intubated and sedated. Her daughter is present. She appears comfortable. Focused Exam Lactate Level 03/07/19 09:15: Lactic Acid Level 2.26*H 03/08/19 03:15: Lactic Acid Level 1.24 03/09/19 00:05: Lactic Acid Level 1.32 Time of Focused Exam: 22:00 Objective Exam Vital Signs Vital Signs Date Time Temp Pulse Resp B/P (MAP) Pulse Ox O2 Delivery O2 Flow Rate FiO2 03/09/19 13:00 66 16 171/46 (87) 97 Mechanical Ventilator 30.00 03/09/19 12:04 30 03/09/19 12:00 36.4 Capillary Refill : Less Than 3 SecondsGreater Than 3 Seconds General Appearance: No Apparent Distress, Obese HEENT: Other (intubated) Respiratory: Lungs Clear, Normal Breath Sounds, No Respiratory Distress, Other (mechanically ventilated) Cardiovascular: Regular Rate, Rhythm, No Murmur Gastrointestinal: Normal Bowel Sounds, Soft, Other (ostomy on place) Extremity: Swelling Neurologic/Psychiatric: Other (sedated) Skin: Pallor Results/Procedures Lab Laboratory Tests 03/08/19 16:44 03/09/19 00:05 03/09/19 03:00 Patient resulted labs reviewed. Imaging: Reviewed Imaging Report Assessment/Plan Assessment and Plan Assess & Plan/Chief Complaint Perforated abdominal viscus -Continue meropenem and eraxis -Multiple abdominal surgeries this admission -Abdomen left open for return to surgery tomorrow Lactic acidosis, resolved Shock -Continue pressors as needed -Transition to Hydrocortisone 50 mg every 6 hours for improved coverage of stress dosing Acute kidney injury Hypernatremia, resolved -Cr slighly improved from yesterday -Monitor output closely -Continue LR Severe protein-calorie malnutrition -Consider tube feeding vs TPN when possible Fungemia -Continue Eraxis Acute hypoxemic respiratory failure -Currently intubated -Pulmonology following Postoperative anemia -Hgb improved post-transfusion -Continue to monitor Hypertension -Blood pressures low -Hold antihypertensives Paroxysmal atrial fibrillation -Hold metoprolol with hypotension -Cardiology following T2DM -Sliding scale insulin Critical illness myopathy -PT/OT -Will require acute rehab vs LTAC vs SNF on discharge Diagnosis/Problems Diagnosis/Problems (1) Perforated abdominal viscus Status: Acute (2) Fungemia Status: Acute (3) Acute respiratory failure Status: Acute Qualifiers: Respiratory failure complication: unspecified whether with hypoxia or hypercapnia Qualified Codes: J96.00 - Acute respiratory failure, unspecified whether with hypoxia or hypercapnia (4) Essential hypertension Status: Chronic (5) Critical illness myopathy Status: Acute (6) IDDM (insulin dependent diabetes mellitus) Status: Chronic (7) Acute renal failure Status: Acute Qualifiers: Acute renal failure type: with acute tubular necrosis Qualified Codes: N17.0 - Acute kidney failure with tubular necrosis Clinical Quality Measures DVT/VTE Risk/Contraindication: Risk Factor Score Per Nursin RFS Level Per Nursing on Admit: 4+=Very High NAIMA ROMAN MD Mar 09, 2019 13:31 POS
--- NOTE | 2019-03-09 14:28 | Progress Note - Cardiology ---
Cardiology SOAP Progress Note Subjective: Intubated an on mech vent. Not able to provide any history Objective: I&O/Vital Signs 03/09/19 03/09/19 03/09/19 03/09/19 02:30 02:34 03:00 03:43 Temp 36.6 Pulse 58 60 Resp 18 18 B/P (MAP) 112/40 (64) Pulse Ox 95 95 36 O2 Delivery Mechanical Ventilator Mechanical Ventilator Mechanical Ventilator O2 Flow Rate 30.00 30.00 FiO2 30 30 03/09/19 03/09/19 03/09/19 03/09/19 04:00 05:00 06:00 06:28 Temp 36.7 36.7 36.7 Pulse 58 60 55 56 Resp 17 16 17 17 B/P (MAP) 141/44 (76) 135/43 (73) 120/40 (66) Pulse Ox 96 97 96 96 O2 Delivery Mechanical Ventilator Mechanical Ventilator Mechanical Ventilator O2 Flow Rate 30.00 30.00 30.00 FiO2 30 03/09/19 03/09/19 03/09/19 03/09/19 07:00 07:00 07:36 07:39 Temp 36.7 Pulse 60 62 62 Resp 15 17 B/P (MAP) 111/40 (63) 147/43 (77) Pulse Ox 97 96 O2 Delivery Mechanical Ventilator Mechanical Ventilator Mechanical Ventilator O2 Flow Rate 30.00 30.00 03/09/19 03/09/19 03/09/19 03/09/19 08:00 08:00 09:00 10:00 Pulse 62 61 60 Resp 16 16 15 B/P (MAP) 148/42 (77) 162/46 (84) 145/44 (77) Pulse Ox 36 94 96 96 O2 Delivery Mechanical Ventilator Mechanical Ventilator Mechanical Ventilator Mechanical Ventilator O2 Flow Rate 30.00 30.00 30.00 FiO2 30 03/09/19 03/09/19 03/09/19 03/09/19 11:00 11:05 12:00 12:04 Temp 36.4 Pulse 60 61 Resp 16 16 B/P (MAP) 153/45 (81) Pulse Ox 96 96 36 O2 Delivery Mechanical Ventilator Mechanical Ventilator O2 Flow Rate 30.00 FiO2 30 30 03/09/19 03/09/19 03/09/19 03/09/19 12:04 12:15 13:00 14:00 Pulse 62 66 66 67 Resp 16 16 15 B/P (MAP) 148/42 (77) 171/46 (87) 185/47 (93) Pulse Ox 94 97 98 O2 Delivery Mechanical Ventilator Mechanical Ventilator Mechanical Ventilator O2 Flow Rate 30.00 30.00 30.00 03/09/19 14:02 Pulse 74 Resp 16 Pulse Ox 96 FiO2 30 03/09/19 00:00 Intake Total 1000 ml Output Total 1260 ml Balance -260 ml Weight (Pounds): 160 Weight (Ounces): 0.0 Weight (Calculated Kilograms): [id number] Constitutional: other (on mech vent) Respiratory: other (fair bilat air entry) Cardiovascular: regular rate-rhythm, S1 and S2, systolic murmur (faint GLENDA at card base) Gastrointestional: other (freshly post-op; we did not attempt palp; bs are absent) Extremities: other (mild, bilateral leg edema); No clubbing, No cyanosis Neurologic/Psychiatric: other (cannot cooperate with a neuro exam) Skin: normal color, cool, diaphoresis, damp Results/Procedures: Labs Laboratory Tests 03/08/19 16:44: Hemoglobin 7.2#L, Hematocrit 21L, Prothrombin Time 22.5H, INR Comment 1.9H, Fibrinogen 273, Sodium Level 142, Potassium Level 3.9, Chloride Level 115#H, Carbon Dioxide Level 17L, Anion Gap 10, Blood Urea Nitrogen 65H, Creatinine 2.01H, Estimat Glomerular Filtration Rate 24, BUN/Creatinine Ratio 32, Glucose Level 115H, Calcium Level 5.9*L, Corrected Calcium 7.9L, Phosphorus Level 5.7H, Total Bilirubin 2.0H, Aspartate Amino Transf (AST/SGOT) 59H, Alanine Aminotransferase (ALT/SGPT) 29, Alkaline Phosphatase 33L, Troponin I 0.070H, Total Protein 2.9L, Albumin 1.5L, Triglycerides Level 139 03/08/19 16:52: Blood Gas Puncture Site RIGHT RADIAL, Blood Gas Patient Temperature 36.6, Arterial Blood pH 7.35L, Arterial Blood Partial Pressure CO2 43, Arterial Blood Partial Pressure O2 56L, Arterial Blood HCO3 23, Arterial Blood Total CO2 24.4, Arterial Blood Oxygen Saturation 87L, Arterial Blood Base Excess -1.8, Kenny Test POSITIVE, Blood Gas Ventilator Setting YES, Blood Gas Inspired Oxygen UNK 03/08/19 17:54: Glucometer 139H 03/08/19 20:50: Stool Occult Blood Immunoassay POSITIVEH 03/09/19 00:05: Hemoglobin 10.5#L, Hematocrit 31L, Potassium Level 5.0, Lactic Acid Level 1.32, Troponin I 0.053H 03/09/19 00:12: Glucometer 162H 03/09/19 03:00: Hemoglobin 10.6L, Hematocrit 31L, Potassium Level 4.9, White Blood Count 9.3, Red Blood Count 3.51L, Mean Corpuscular Volume 88, Mean Corpuscular Hemoglobin 30, Mean Corpuscular Hemoglobin Concent 34, Red Cell Distribution Width 17.9H, Platelet Count 194, Mean Platelet Volume 10.3, Neutrophils (%) (Auto) 82H, Lymphocytes (%) (Auto) 9L, Monocytes (%) (Auto) 9, Eosinophils (%) (Auto) 1, Basophils (%) (Auto) 0, Neutrophils # (Auto) 7.6, Lymphocytes # (Auto) 0.8L, Monocytes # (Auto) 0.8, Eosinophils # (Auto) 0.1, Basophils # (Auto) 0.0, Pr othrombin Time 18.6H, INR Comment 1.5H, Blood Gas Puncture Site RIGHT ART LINE, Blood Gas Patient Temperature 36.5, Arterial Blood pH 7.37, Arterial Blood Partial Pressure CO2 42, Arterial Blood Partial Pressure O2 67L, Arterial Blood HCO3 24, Arterial Blood Total CO2 24.9, Arterial Blood Oxygen Saturation 93L, Arterial Blood Base Excess -1.1, Kenny Test ART LINE, Blood Gas Ventilator Setting YES, Blood Gas Inspired Oxygen 30%, Sodium Level 140, Chloride Level 108H, Carbon Dioxide Level 20L, Anion Gap 12, Blood Urea Nitrogen 73H, Creatinine 2.23H, Estimat Glomerular Filtration Rate 21, BUN/Creatinine Ratio 33, Glucose Level 145H, Calcium Level 7.6L, Phosphorus Level 7.0H, Magnesium Level 1.8 03/09/19 12:03: Glucometer 153H Microbiology 03/07/19 Blood Culture - Preliminary, Resulted No growth 03/08/19 Gram Stain - Final, Resulted 03/08/19 Sputum Culture - Preliminary, Resulted No growth 02/24/19 Urine Culture - Final, Complete NO GROWTH 03/05/19 Gram Stain - Final, Resulted 03/05/19 Anaerobic Culture - Preliminary, Resulted No anaerobes isolated 03/05/19 Surgical Culture - Final, Resulted Marilia species A/P: Assessment: Multiple abdominal surgeries during this admission for perforated viscus Fungemia and sepsis, managed by Hosp and ICU Svces Type 1 resp failure, managed by the Pulm Svce Paroxysmal atrial fibrillation, currently in sinus rhythm. Not suitable for anticoag because freshly post op Echo 03/04/19 (Dr Montana): LVEF 75-80%, grade 1 cabezas dysfunction, mild to mod TR, PASP approx 35 mmHg Labile hypertension Mild CAD on card caths of 2012 and 2017 History of colon cancer, treated with surgery several years ago, in remission and followed by Dr. Branham History of hyperlipidemia H/o carotid artery stenosis that is followed by Dr Montana Diabetes mellitus II H/o obstructive sleep apnea, intolerance to CPAP Plan: * Complex management due to multiple comorbidities * I reviewed her records and examined her * Continue current regimen * Monitor labs closely BETH ROMO MD FACP FAC CCDS Mar 09, 2019 14:28 POS
[2019-03-09] MEDS: fentaNYL INJECTION 1,250 MCG in NS (IVPB) 250 ML IV SCH (14:39)
[2019-03-09] MEDS: PROPOFOL DRIP (ICU) 100 ML IV SCH (16:30)
--- NOTE | 2019-03-09 17:00 | NUR ---
FENTANYL DRIP INCREASE TO 75MCG/HR AFTER PATIENT NODS YES THAT SHE IS HURTING
[2019-03-09] MEDS: NOREPINEPHRINE 4 MG in NS (IVPB) 250 ML IV SCH (20:07)
[2019-03-10] VITALS (39 sets, daily range): BP systolic 106–191; BP diastolic 29–58
[2019-03-10] MEDS: PROPOFOL DRIP (ICU) 100 ML IV SCH ×4 (00:21→21:10)
[2019-03-10] MEDS: HYDROCORTISONE 100 MG/2 ML (Solu-CORTEF) VIAL IV SCH ×4 (00:25→18:48)
[2019-03-10] MEDS: LACTATED RINGERS 1,000 ML IV SCH (00:25)
[2019-03-10] MEDS: inSUlin ASPART (NovoLOG) 1 UNIT/0.01 ML (CHARGE PER UNIT) SQ SCH ×4 (00:29→18:49)
[2019-03-10 02:33] LABS: BASOPHILS % (AUTO) 0 % (0-10); EOSINOPHILS % (AUTO) 0 % (0-10); HEMATOCRIT 29 % (35-52); HEMOGLOBIN 9.8 G/DL (11.5-16.0); LYMPHOCYTES # (AUTO) 0.5 X 10^3 (1.0-4.0); LYMPHOCYTES % (AUTO) 5 % (12-44); MEAN CORPUSCULAR HEMOGLOBIN 30 PG (25-34); MEAN CORPUSCULAR HGB CONC 34 G/DL (32-36); MEAN CORPUSCULAR VOLUME 88 FL (80-99); MEAN PLATELET VOLUME 9.7 FL (7.4-10.4); MONOCYTES # (AUTO) 0.7 X 10^3 (0.0-1.0); MONOCYTES % (AUTO) 6 % (0-12); NEUTROPHILS # (AUTO) 9.7 X 10^3 (1.8-7.8); NEUTROPHILS % (AUTO) 89 % (42-75); PLATELET COUNT 218 10^3/uL (130-400); RED CELL DISTRIBUTION WIDTH 17.9 % (10.0-14.5); WHITE BLOOD COUNT 10.9 10^3/uL (4.3-11.0)
[2019-03-10 02:34] LABS: ABG OXYGEN SATURATION 92 % (94-100); ABG PCO2 33 MMHG (35-45); ABG PH 7.51 (7.37-7.43); ABG PO2 63 MMHG (79-93); ABG TCO2 27.2 MMOL/L (21.0-31.0)
[2019-03-10 02:38] LABS: ALLENS TEST ART LINE; INSPIRED O2 30%
[2019-03-10 02:39] LABS: PATIENT TEMP 36.4; VENTILATOR YES
[2019-03-10 02:49] LABS: CALCIUM 7.7 MG/DL (8.5-10.1); CREATININE SERUM 1.61 MG/DL (0.60-1.30); MAGNESIUM 1.8 MG/DL (1.6-2.4); PHOSPHORUS 5.1 MG/DL (2.3-4.7); POTASSIUM 4.3 MMOL/L (3.6-5.0)
[2019-03-10] MEDS: MEROPENEM 500 MG/SWFI 10 ML IV PUSH IV SCH ×4 (02:57→14:32)
[2019-03-10] MEDS: MAGNESIUM 1 GM/100 ML IVPB 100 ML IV SCH (03:02)
[2019-03-10] MEDS: KCL 20 MEQ TAB (K-DUR) PO SCH (03:02)
[2019-03-10] MEDS: POTASSIUM CL 10MEQ/50ML IVPB 50 ML IV SCH (03:02)
--- NOTE | 2019-03-10 05:12 | Pulmonary Progress Note ---
Subjective Time Seen by a Provider: 05:37 Sepsis Event Evaluation Height, Weight, BMI Height: 5'5.00" Weight: 160lbs. 0.0oz. 72.331078hb; 21.79 BMI Method:Stated Focused Exam Lactate Level 03/07/19 09:15: Lactic Acid Level 2.26*H 03/08/19 03:15: Lactic Acid Level 1.24 03/09/19 00:05: Lactic Acid Level 1.32 Time of Focused Exam: 22:00 Exam Exam Vital Signs Date Time Temp Pulse Resp B/P (MAP) Pulse Ox O2 Delivery O2 Flow Rate FiO2 03/10/19 04:03 65 16 98 30 03/10/19 04:00 95 Mechanical Ventilator 30 03/10/19 03:08 36.2 03/10/19 03:00 62 16 148/42 (77) 95 Mechanical Ventilator 30.00 03/10/19 02:00 62 15 131/42 (71) 95 Mechanical Ventilator 30.00 03/10/19 01:00 62 16 130/40 (70) 95 Mechanical Ventilator 30.00 03/10/19 01:00 65 03/10/19 00:21 36.28374 70 15 141/38 97 Mechanical Ventilator 30.00 03/10/19 00:00 36.0 03/10/19 00:00 97 Mechanical Ventilator 30 03/10/19 00:00 70 15 141/38 (72) 97 Mechanical Ventilator 30.00 03/09/19 23:09 65 16 95 30 03/09/19 23:00 65 16 138/42 (74) 95 Mechanical Ventilator 30.00 03/09/19 22:00 66 16 145/45 (78) 95 Mechanical Ventilator 30.00 03/09/19 21:00 69 16 122/39 (66) 95 Mechanical Ventilator 30.00 03/09/19 20:11 36.8 71 16 122/40 (67) 95 Mechanical Ventilator 30.00 03/09/19 20:00 95 Mechanical Ventilator 30 03/09/19 20:00 68 16 129/42 (71) 95 Mechanical Ventilator 30.00 03/09/19 19:11 71 16 139/42 (74) 98 Mechanical Ventilator 30.00 03/09/19 19:00 73 16 135/40 (71) 97 Mechanical Ventilator 30.00 03/09/19 19:00 74 03/09/19 18:13 73 16 97 30 03/09/19 18:00 71 16 168/44 (85) 98 Mechanical Ventilator 30.00 03/09/19 17:00 74 16 170/45 (86) 97 Mechanical Ventilator 30.00 03/09/19 16:30 74 Mechanical Ventilator 03/09/19 16:00 72 16 136/40 (72) 95 Mechanical Ventilator 30.00 03/09/19 16:00 36 Mechanical Ventilator 30 03/09/19 15:17 36.6 71 16 165/43 (83) 98 Mechanical Ventilator 30.00 03/09/19 14:02 74 16 96 30 03/09/19 14:00 67 15 185/47 (93) 98 Mechanical Ventilator 30.00 03/09/19 13:00 66 16 171/46 (87) 97 Mechanical Ventilator 30.00 03/09/19 12:15 66 03/09/19 12:04 62 16 148/42 (77) 94 Mechanical Ventilator 30.00 03/09/19 12:04 36 Mechanical Ventilator 30 03/09/19 12:00 36.4 03/09/19 11:05 61 16 96 30 03/09/19 11:00 60 16 153/45 (81) 96 Mechanical Ventilator 30.00 03/09/19 10:00 60 15 145/44 (77) 96 Mechanical Ventilator 30.00 03/09/19 09:00 61 16 162/46 (84) 96 Mechanical Ventilator 30.00 03/09/19 08:00 62 16 148/42 (77) 94 Mechanical Ventilator 30.00 03/09/19 08:00 36 Mechanical Ventilator 30 03/09/19 07:39 36.7 62 17 147/43 (77) 96 Mechanical Ventilator 30.00 03/09/19 07:36 Mechanical Ventilator 03/09/19 07:00 62 03/09/19 07:00 60 15 111/40 (63) 97 Mechanical Ventilator 30.00 03/09/19 06:28 56 17 96 30 03/09/19 06:00 36.7 55 17 120/40 (66) 96 Mechanical Ventilator 30.00 I & O0 03/10/19 07:00 Intake Total 0 ml Output Total 2115 ml Balance -2115 ml Height & Weight Height: 5'5.00" Weight: 160lbs. 0.0oz. 72.609777ef; 21.79 BMI Method:Stated General Appearance: No Apparent Distress, Chronically ill, Other (sedated on vent) HEENT: PERRL/EOMI, Other (ET tube in place) Neck: Supple Respiratory: No Respiratory Distress, Other (wearing BiPAP) Cardiovascular: Regular Rate, Rhythm, No Murmur Capillary Refill: Greater Than 3 Seconds Peripheral Pulses: 2+ Dorsalis Pedis (R), 2+ Left Dors-Pedis (L), 2+ Radial Pulses (R), 2+ Radial Pulses (L) Gastrointestinal: soft, other (Midline incision, VAC in place, ileostomy pink and with output) Extremity: Normal Capillary Refill, Non Tender, Pedal Edema Neurologic/Psychiatric: Alert, Disoriented Skin: Warm/Dry, Pallor Lymphatic: No Adenopathy Results Lab Laboratory Tests 03/08/19 13:19 03/08/19 16:44 03/09/19 00:05 03/09/19 03:00 03/10/19 02:15 Assessment/Plan Assessment/Plan Acute respiratory failure with hypoxia -Pt was reintubated for surgery yesterday secondary to recurrent abd perforation - plan is for repeat surgery today. I will hold off on weaning vent. hypotension and episodes of bradycardia -Currently off Levophed x 30min -Currently LR at 150 Acute worsening anemia s/p 4 units PRBC -Monitor recurrent perforated abdominal viscus x 3 s/p repeat surgeries with resections -Cont Merrem and Eraxis -Plan is for return to surgery today. Protein jorge malnutrition with low albumin and anasarca -Dr. Willett does not want TPN or OG for tube feeds. Plan is for repeat surgery today. -Check prealbumin -Pt has had very little if any PO intake for at least 2wks she was admitted on 02/24. -Will add D5 to LR and start Banana bag daily -Pt has no OG per surgery Fungemia secondary to abdominal perforation -Repeat BC are negative thus far -Repeat BC collected 03/07 -Eraxis Acute renal failure with anasarca -IVF and continue to monitor Grade 1 diastolic dysfunction -Monitor Afib - currently sinus DM II Debility -PT/OT Overall prognosis is guarded to poor. Pt is still currently a full code. Critical Care: Critically Ill Patient JAZMYNE THOMPSON DO Mar 10, 2019 05:12 POS
[2019-03-10] MEDS ORDERED: MAGNESIUM 1 GM/100 ML IVPB 100 ML IV ONE (05:15)
[2019-03-10] MEDS: D5 LR IV SOLUTION 1,000 ML IV SCH ×3 (06:04→18:48)
[2019-03-10] MEDS ORDERED: LACTATED RINGERS 1,000 ML IV ONE (06:15)
[2019-03-10 06:33] LABS: ABG BASE EXCESS 2.9 MMOL/L (-2.5-2.5); ABG OXYGEN SATURATION 94 % (94-100); ABG PCO2 35 MMHG (35-45); ABG PH 7.48 (7.37-7.43); ABG PO2 70 MMHG (79-93); ABG TCO2 27.5 MMOL/L (21.0-31.0)
[2019-03-10 06:52] LABS: ALLENS TEST ART LINE; INSPIRED O2 30%; PATIENT TEMP 36.2; VENTILATOR YES
[2019-03-10] MEDS: RT-FLUTICASONE 220 MCG (FLOVENT) PER PUFF INH SCH ×2 (07:21→19:16)
[2019-03-10] MEDS: RT-IPRATROPIUM (ATROVENT) 0.5MG/2.5ML AMP IH SCH ×4 (07:21→19:16)
[2019-03-10] MEDS: fentaNYL INJECTION 1,250 MCG in NS (IVPB) 250 ML IV SCH (08:17)
--- NOTE | 2019-03-10 08:28 | Diagnostic Imaging Report ---
INDICATION: Dyspnea. TECHNIQUE: Single view chest 3:12 AM. CORRELATION STUDY: 03/09/2019 FINDINGS: Endotracheal tube and right-sided central line remain in place. Heart size and mediastinum are stable. Areas of likely atelectasis at the perihilar and basilar regions persisting. There does appear to be slight increase at the left lung base. IMPRESSION: 1. Stable support lines and tubes. 2. Bilateral predominantly bibasilar infiltrates persisting, appearing slightly increased particularly at the left lung base. Dictated by: Dictated on workstation # [id number]
[2019-03-10 08:40] LABS: ABG BASE EXCESS 3.2 MMOL/L (-2.5-2.5); ABG OXYGEN SATURATION 91 % (94-100); ABG PCO2 41 MMHG (35-45); ABG PH 7.43 (7.37-7.43); ABG PO2 67 MMHG (79-93); ABG TCO2 28.4 MMOL/L (21.0-31.0)
[2019-03-10 08:42] LABS: INSPIRED O2 30%; PATIENT TEMP 37.1; VENTILATOR YES
--- NOTE | 2019-03-10 08:52 | NUR ---
SON AND DAUGHTER IN AND UPDATED
[2019-03-10] MEDS: ANIDULAFUNGIN INJECTION 100 MG in NS (IVPB) 100 ML IV SCH (09:44)
[2019-03-10] MEDS: PANTOPRAZOLE 40 MG (PROTONIX) VIAL IV SCH (09:44)
[2019-03-10] MEDS: THIAMINE INJECTION 100 MG, FOLIC ACID INJECTION 1 MG, VITAMIN MULTI INJECTION 10 ML, MA... IV SCH ×5 (09:45)
--- NOTE | 2019-03-10 10:35 | NUR ---
levophed restarted at 0.02mcg for MAP of 51
--- NOTE | 2019-03-10 11:33 | Progress Note - Surgery ---
BECCA CHANDLER MED STUDENT 03/10/19 1133: Subjective Date Seen by a Provider: Mar 10, 2019 Time Seen by a Provider: 08:40 Subjective/Events-last exam Ms. Samson was not responsive when I saw her today. Family was with her this morning but had only been there a short time, Ms. Samson was did not respond to them. Nursing reports she had been alert at times over night but complained of pain, and had increased HR and BP, so she was placed back on propofol. Her woundvac has darker, brown fluid in it compared to yesterday. Focused Exam Lactate Level 03/08/19 03:15: Lactic Acid Level 1.24 03/09/19 00:05: Lactic Acid Level 1.32 Time of Focused Exam: 22:00 Objective Exam Vital Signs Date Time Temp Pulse Resp B/P (MAP) Pulse Ox O2 Delivery O2 Flow Rate FiO2 03/10/19 11:00 59 14 141/39 (73) 95 Mechanical Ventilator 30.00 03/10/19 10:22 63 14 97 30 03/10/19 10:00 66 14 122/31 (61) 97 Mechanical Ventilator 30.00 03/10/19 09:00 84 16 142/58 (86) 98 Mechanical Ventilator 30.00 03/10/19 08:17 37.1 03/10/19 08:00 95 Mechanical Ventilator 30 03/10/19 08:00 75 14 191/45 (93) 97 Mechanical Ventilator 30.00 03/10/19 07:30 37.1 67 14 179/46 (90) 96 Mechanical Ventilator 30.00 03/10/19 07:21 64 14 97 30 03/10/19 07:00 65 03/10/19 07:00 64 03/10/19 06:00 60 15 121/38 (65) 97 Mechanical Ventilator 30.00 03/10/19 05:27 36.53739 61 15 151/43 97 Mechanical Ventilator 30.00 03/10/19 05:00 61 15 151/43 (79) 97 Mechanical Ventilator 30.00 03/10/19 04:03 65 16 98 30 03/10/19 04:00 64 16 178/43 (88) 98 Mechanical Ventilator 30.00 03/10/19 04:00 95 Mechanical Ventilator 30 03/10/19 03:08 36.2 03/10/19 03:00 62 16 148/42 (77) 95 Mechanical Ventilator 30.00 03/10/19 02:00 62 15 131/42 (71) 95 Mechanical Ventilator 30.00 03/10/19 01:00 62 16 130/40 (70) 95 Mechanical Ventilator 30.00 03/10/19 01:00 65 03/10/19 00:21 36.85477 70 15 141/38 97 Mechanical Ventilator 30.00 03/10/19 00:00 36.0 03/10/19 00:00 97 Mechanical Ventilator 30 03/10/19 00:00 70 15 141/38 (72) 97 Mechanical Ventilator 30.00 03/09/19 23:09 65 16 95 30 03/09/19 23:00 65 16 138/42 (74) 95 Mechanical Ventilator 30.00 03/09/19 22:00 66 16 145/45 (78) 95 Mechanical Ventilator 30.00 03/09/19 21:00 69 16 122/39 (66) 95 Mechanical Ventilator 30.00 03/09/19 20:11 36.8 71 16 122/40 (67) 95 Mechanical Ventilator 30.00 03/09/19 20:00 95 Mechanical Ventilator 30 03/09/19 20:00 68 16 129/42 (71) 95 Mechanical Ventilator 30.00 03/09/19 19:11 71 16 139/42 (74) 98 Mechanical Ventilator 30.00 03/09/19 19:00 73 16 135/40 (71) 97 Mechanical Ventilator 30.00 03/09/19 19:00 74 03/09/19 18:13 73 16 97 30 03/09/19 18:00 71 16 168/44 (85) 98 Mechanical Ventilator 30.00 03/09/19 17:00 74 16 170/45 (86) 97 Mechanical Ventilator 30.00 03/09/19 16:30 74 Mechanical Ventilator 03/09/19 16:00 72 16 136/40 (72) 95 Mechanical Ventilator 30.00 03/09/19 16:00 36 Mechanical Ventilator 30 03/09/19 15:17 36.6 71 16 165/43 (83) 98 Mechanical Ventilator 30.00 03/09/19 14:02 74 16 96 30 03/09/19 14:00 67 15 185/47 (93) 98 Mechanical Ventilator 30.00 03/09/19 13:00 66 16 171/46 (87) 97 Mechanical Ventilator 30.00 03/09/19 12:15 66 03/09/19 12:04 62 16 148/42 (77) 94 Mechanical Ventilator 30.00 03/09/19 12:04 36 Mechanical Ventilator 30 03/09/19 12:00 36.4 I & O 03/10/19 07:00 Intake Total 1450 ml Output Total 2595 ml Balance -1145 ml Capillary Refill : Less Than 3 SecondsGreater Than 3 Seconds General Appearance: Chronically ill, Other (sedated on vent) HEENT: PERRL/EOMI, Other (ET tube in place) Neck: Non Tender, Supple Respiratory: Lungs Clear, No Respiratory Distress, Other (wearing BiPAP) Cardiovascular: Regular Rate, Rhythm, Normal Peripheral Pulses, Systolic Murmur Peripheral Pulses: 2+ Dorsalis Pedis (R), 2+ Left Dors-Pedis (L), 2+ Radial Pulses (R), 2+ Radial Pulses (L) Gastrointestinal: soft, other (Midline incision, VAC in place, ileostomy pink and with output) Extremity: Normal Capillary Refill, Non Tender, Pedal Edema Neurologic/Psychiatric: No Alert, No Oriented x3 Skin: Warm/Dry, Pallor Lymphatic: No Adenopathy Results Lab Laboratory Tests 03/09/19 12:03: Glucometer 153H 03/09/19 18:42: Glucometer 130H 03/10/19 00:28: Glucometer 143H 03/10/19 02:15: White Blood Count 10.9, Red Blood Count 3.25L, Hemoglobin 9.8L, Hematocrit 29L, Mean Corpuscular Volume 88, Mean Corpuscular Hemoglobin 30, Mean Corpuscular Hem oglobin Concent 34, Red Cell Distribution Width 17.9H, Platelet Count 218, Mean Platelet Volume 9.7, Neutrophils (%) (Auto) 89H, Lymphocytes (%) (Auto) 5L, Monocytes (%) (Auto) 6, Eosinophils (%) (Auto) 0, Basophils (%) (Auto) 0, Neutrophils # (Auto) 9.7H, Lymphocytes # (Auto) 0.5L, Monocytes # (Auto) 0.7, Eosinophils # (Auto) 0.0, Basophils # (Auto) 0.0, Sodium Level 143, Potassium Level 4.3, Chloride Level 111H, Carbon Dioxide Level 22, Anion Gap 10, Blood Urea Nitrogen 83H, Creatinine 1.61H, Estimat Glomerular Filtration Rate 31, BUN/Creatinine Ratio 52, Glucose Level 156H, Calcium Level 7.7L, Phosphorus Level 5.1H, Magnesium Level 1.8, Triglycerides Level 425#H 03/10/19 02:20: Blood Gas Puncture Site RIGHT ART LINE, Blood Gas Patient Temperature 36.4, Arterial Blood pH 7.51H, Arterial Blood Partial Pressure CO2 33L, Arterial Blood Partial Pressure O2 63L, Arterial Blood HCO3 26, Arterial Blood Total CO2 27.2, Arterial Blood Oxygen Saturation 92L, Arterial Blood Base Excess 3.0H, Kenny Test ART LINE, Blood Gas Ventilator Setting YES, Blood Gas Inspired Oxygen 30% 03/10/19 05:30: 03/10/19 06:30: Blood Gas Puncture Site RIGHT ART LINE, Blood Gas Patient Temperature 36.2, Arterial Blood pH 7.48H, Arterial Blood Partial Pressure CO2 35, Arterial Blood Partial Pressure O2 70L, Arterial Blood HCO3 26, Arterial Blood Total CO2 27.5, Arterial Blood Oxygen Saturation 94, Arterial Blood Base Excess 2.9H, Kenny Test ART LINE, Blood Gas Ventilator Setting YES, Blood Gas Inspired Oxygen 30% 03/10/19 08:20: Blood Gas Puncture Site NA, Blood Gas Patient Temperature 37.1, Arterial Blood pH 7.43, Arterial Blood Partial Pressure CO2 41, Arterial Blood Partial Pressure O2 67L, Arterial Blood HCO3 27, Arterial Blood Total CO2 28.4, Arterial Blood Oxygen Saturation 91L, Arterial Blood Base Excess 3.2H, Kenny Test NA, Blood Gas Ventilator Setting YES, Blood Gas Inspired Oxygen 30% Microbiology 03/07/19 Blood Culture - Preliminary, Resulted No growth 03/08/19 Gram Stain - Final, Resulted 03/08/19 Sputum Culture - Preliminary, Resulted No growth 02/24/19 Urine Culture - Final, Complete NO GROWTH 03/05/19 Gram Stain - Final, Resulted 03/05/19 Anaerobic Culture - Preliminary, Resulted No anaerobes isolated 03/05/19 Surgical Culture - Final, Resulted Marilia species Assessment/Plan Assessment/Plan Assessment/Plan S/P Ex Lap for perforation at anastomosis Renal insufficiency improving ABthera Wound VAC in place Continue vent until we take her back to look and make sure no more anastomosis failures. Continue pain control, IV fluids, supportive care. Clinical Quality Measures DVT/VTE Risk/Contraindication: Risk Factor Score Per Nursin RFS Level Per Nursing on Admit: 4+=Very High MISSY MONTEJO DO 03/10/19 1223: Subjective Time Seen by a Provider: 10:02 Subjective/Events-last exam Pt seen and examined, sedated on vent. Nurse states she is being started back on Neosynephrine because her BP is dropping and MAP is below 65. Objective Exam Gastrointestinal: other (Midline incision, VAC in place, ileostomy pink and with output. Drains with serous output, ABthera VAC now has ??bile tinge) Assessment/Plan Assessment/Plan Assessment/Plan Drains look ok, but the fluid now coming out of VAC has bile tinge. Will still plan for Abthera Wound VAC removal, washout and examine anastomosis tomorrow. Pt may have to have a second ileostomy creation. Supervisory-Addendum Brief Verification & Attestation Participated in pt care: history, MDM, physical Personally performed: exam, history, MDM Care discussed with: Medical Student Procedures: n/a Verification and Attestation of Medical Student E/M Service A medical student performed and documented this service in my presence. I reviewed and verified all information documented by the medical student and made modifications to such information, when appropriate. I personally performed the physical exam and medical decision making. Missy Montejo, Mar 10, 2019,12:23 BECCA CHANDLER MED STUDENT Mar 10, 2019 11:33 MISSY JAMES DO Mar 10, 2019 12:23 POS
--- NOTE | 2019-03-10 13:05 | NUR ---
dr pyle called and notified of patients heart rate and MAPs. orders received to stop levophed and only restart for systolic less than 90.
--- NOTE | 2019-03-10 13:06 | Progress Note - Hospitalist ---
Subjective HPI/CC On Admission Date Seen by Provider: Mar 10, 2019 Time Seen by Provider: 09:10 abdominal pain Subjective/Events-last exam She is intubated and sedated. Focused Exam Lactate Level 03/08/19 03:15: Lactic Acid Level 1.24 03/09/19 00:05: Lactic Acid Level 1.32 Time of Focused Exam: 22:00 Objective Exam Vital Signs Vital Signs Date Time Temp Pulse Resp B/P (MAP) Pulse Ox O2 Delivery O2 Flow Rate FiO2 03/10/19 13:00 59 13 124/43 (70) 96 Mechanical Ventilator 30.00 03/10/19 12:51 37.48974 03/10/19 12:00 30 Capillary Refill : Less Than 3 SecondsGreater Than 3 Seconds General Appearance: No Apparent Distress, WD/WN HEENT: Other (intubated) Respiratory: Lungs Clear, Normal Breath Sounds, No Respiratory Distress, Other (mechanically ventilated) Cardiovascular: Regular Rate, Rhythm, No Murmur Gastrointestinal: Soft, Abnormal Bowel Sounds (hypoactive); No Distended Extremity: Swelling Neurologic/Psychiatric: Other (sedated) Results/Procedures Lab Laboratory Tests 03/10/19 02:15 Patient resulted labs reviewed. Imaging: Reviewed Imaging Report Assessment/Plan Assessment and Plan Assess & Plan/Chief Complaint Perforated abdominal viscus -Continue meropenem and eraxis -Multiple abdominal surgeries this admission -Abdomen left open for return to surgery 03/11 Lactic acidosis, resolved Shock -Continue pressors as needed, currently not being required -continue stress dose steroids Acute kidney injury Hypernatremia, resolved -Cr improving, urine output increased -Monitor output closely -Continue LR Severe protein-calorie malnutrition -Consider tube feeding vs TPN when possible Fungemia -Continue Eraxis Acute hypoxemic respiratory failure -Currently intubated -Pulmonology following Postoperative anemia -Hgb improved post-transfusion, stable -Continue to monitor Hypertension -Hold antihypertensives Paroxysmal atrial fibrillation -Hold metoprolol with hypotension -Cardiology following T2DM -Sliding scale insulin Critical illness myopathy -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 -Will require acute rehab vs LTAC vs SNF on discharge Critical Care Critically Ill Patient Diagnosis/Problems Diagnosis/Problems (1) Perforated abdominal viscus Status: Acute (2) Fungemia Status: Acute (3) Acute respiratory failure Status: Acute Qualifiers: Respiratory failure complication: unspecified whether with hypoxia or hypercapnia Qualified Codes: J96.00 - Acute respiratory failure, unspecified whether with hypoxia or hypercapnia (4) Essential hypertension Status: Chronic (5) Critical illness myopathy Status: Acute (6) IDDM (insulin dependent diabetes mellitus) Status: Chronic (7) Acute renal failure Status: Acute Qualifiers: Acute renal failure type: with acute tubular necrosis Qualified Codes: N17.0 - Acute kidney failure with tubular necrosis Clinical Quality Measures DVT/VTE Risk/Contraindication: Risk Factor Score Per Nursin RFS Level Per Nursing on Admit: 4+=Very High NAIMA ROMAN MD Mar 10, 2019 13:06 POS
--- NOTE | 2019-03-10 13:44 | NUR ---
levophed at 0.03 mcg, propofol decreased to 20 mcg for MAP 53. fluids increased to 200ml
--- NOTE | 2019-03-10 13:48 | NUR ---
arterial blood pressures verified with manual cuff. Levo decreased to 0.02mcg, propofol remains at 20mcg
--- NOTE | 2019-03-10 13:57 | Anesthesia-General Post-Op ---
General Post Op Complications Complications None Follow Up Care/Instructions Patient Instructions None needed. Anesthesia/Patient Condition Patient Condition late entry from post-op evaluation on 03/09/19: Patient has remained stable through the night. Levophed down to 0.02 mcg/kg/min and HgB is improving. Patient remains intubated and plan is to take her back to the OR on Monday03/11/19. We will be available for further consultation as needed. D/C home per [facility] Criteria: VAIBHAV Darby CRNA Mar 10, 2019 13:57 POS
--- NOTE | 2019-03-10 14:05 | NUR ---
levophed stopped, propofol continues at 20mcg, fentanyl drip at 75mcg.
--- NOTE | 2019-03-10 14:30 | NUR ---
DR FREY IN TO SEE PATIENT.
--- NOTE | 2019-03-10 15:01 | Progress Note - Cardiology ---
Cardiology SOAP Progress Note Subjective: Not able to provide any history Objective: I&O/Vital Signs 03/10/19 03/10/19 03/10/19 03/10/19 03:00 03:08 04:00 04:00 Temp 36.2 Pulse 62 64 Resp 16 16 B/P (MAP) 148/42 (77) 178/43 (88) Pulse Ox 95 95 98 O2 Delivery Mechanical Ventilator Mechanical Ventilator Mechanical Ventilator O2 Flow Rate 30.00 30.00 FiO2 30 03/10/19 03/10/19 03/10/19 03/10/19 04:03 05:00 05:27 06:00 Temp 36.34986 Pulse 65 61 61 60 Resp 16 15 15 15 B/P (MAP) 151/43 (79) 151/43 121/38 (65) Pulse Ox 98 97 97 97 O2 Delivery Mechanical Ventilator Mechanical Ventilator Mechanical Ventilator O2 Flow Rate 30.00 30.00 30.00 FiO2 30 03/10/19 03/10/19 03/10/19 03/10/19 07:00 07:00 07:21 07:30 Temp 37.1 Pulse 64 65 64 67 Resp 14 14 B/P (MAP) 179/46 (90) Pulse Ox 97 96 O2 Delivery Mechanical Ventilator O2 Flow Rate 30.00 FiO2 30 03/10/19 03/10/19 03/10/19 03/10/19 08:00 08:00 08:17 09:00 Temp 37.1 Pulse 75 84 Resp 14 16 B/P (MAP) 191/45 (93) 142/58 (86) Pulse Ox 97 95 98 O2 Delivery Mechanical Ventilator Mechanical Ventilator Mechanical Ventilator O2 Flow Rate 30.00 30.00 FiO2 30 03/10/19 03/10/19 03/10/19 03/10/19 10:00 10:22 10:35 10:50 Temp 36.6 Pulse 66 63 58 Resp 14 14 14 14 B/P (MAP) 122/31 (61) 107/29 (55) 107/31 (56) Pulse Ox 97 97 96 96 O2 Delivery Mechanical Ventilator Mechanical Ventilator Mechanical Ventilator O2 Flow Rate 30.00 30.00 30.00 FiO2 30 03/10/19 03/10/19 03/10/19 03/10/19 10:55 11:00 11:05 12:00 Pulse 64 59 60 Resp 14 14 14 B/P (MAP) 124/35 (64) 141/39 (73) 137/37 (70) Pulse Ox 97 95 96 95 O2 Delivery Mechanical Ventilator Mechanical Ventilator O2 Flow Rate 30.00 FiO2 30 03/10/19 03/10/19 03/10/19 03/10/19 12:00 12:24 12:50 12:51 Temp 37.04580 Pulse 58 59 59 59 Resp 14 14 14 B/P (MAP) 123/34 (63) 135/36 (69) 123/34 Pulse Ox 96 97 95 O2 Delivery Mechanical Ventilator Mechanical Ventilator O2 Flow Rate 30.00 30.00 03/10/19 03/10/19 03/10/19 03/10/19 12:58 13:00 13:15 13:30 Pulse 57 59 58 58 Resp 14 13 14 14 B/P (MAP) 152/40 (77) 124/43 (70) 117/32 (60) 108/31 (56) Pulse Ox 96 96 98 98 O2 Delivery Mechanical Ventilator O2 Flow Rate 30.00 30.00 30.00 30.00 03/10/19 03/10/19 14:00 14:08 Pulse 59 53 Resp 13 14 B/P (MAP) 128/34 (65) Pulse Ox 98 100 O2 Delivery Mechanical Ventilator O2 Flow Rate 30.00 FiO2 30 03/10/19 00:00 Intake Total 250 ml Output Total 1230 ml Balance -980 ml Weight (Pounds): 160 Weight (Ounces): 0.0 Weight (Calculated Kilograms): 72.309338 Constitutional: other (on mech vent) Respiratory: other (fair bilat air entry) Cardiovascular: regular rate-rhythm, S1 and S2, systolic murmur (faint GLENDA at card base) Gastrointestional: other (freshly post-op; we did not attempt palp; bs are absent) Extremities: other (mild, bilateral leg edema); No clubbing, No cyanosis Neurologic/Psychiatric: other (cannot cooperate with a neuro exam) Skin: normal color, cool, diaphoresis, damp Results/Procedures: Labs Laboratory Tests 03/09/19 18:42: Glucometer 130H 03/10/19 00:28: Glucometer 143H 03/10/19 02:15: White Blood Count 10.9, Red Blood Count 3.25L, Hemoglobin 9.8L, Hematocrit 29L, Mean Corpuscular Volume 88, Mean Corpuscular Hemoglobin 30, Mean Corpuscular Hemoglobin Concent 34, Red Cell Distribution Width 17.9H, Platelet Count 218, Mean Platelet Volume 9.7, Neutrophils (%) (Auto) 89H, Lymphocytes (%) (Auto) 5L, Monocytes (%) (Auto) 6, Eosinophils (%) (Auto) 0, Basophils (%) (Auto) 0, Neutrophils # (Auto) 9.7H, Lymphocytes # (Auto) 0.5L, Monocytes # (Auto) 0.7, Eosinophils # (Auto) 0.0, Basophils # (Auto) 0.0, Sodium Level 143, Potassium Level 4.3, Chloride Level 111H, Carbon Dioxide Level 22, Anion Gap 10, Blood Urea Nitrogen 83H, Creatinine 1.61H, Estimat Glomerular Filtration Rate 31, BUN/Creatinine Ratio 52, Glucose Level 156H, Calcium Level 7.7L, Phosphorus Level 5.1H, Magnesium Level 1.8, Triglycerides Level 425#H 03/10/19 02:20: Blood Gas Puncture Site RIGHT ART LINE, Blood Gas Patient Temperature 36.4, Arterial Blood pH 7.51H, Arterial Blood Partial Pressure CO2 33L, Arterial Blood Partial Pressure O2 63L, Arterial Blood HCO3 26, Arterial Blood Total CO2 27.2, Arterial Blood Oxygen Saturation 92L, Arterial Blood Base Excess 3.0H, Kenny Test ART LINE, Blood Gas Ventilator Setting YES, Blood Gas Inspired Oxygen 30% 03/10/19 05:30: 03/10/19 06:30: Blood Gas Puncture Site RIGHT ART LINE, Blood Gas Patient Temperature 36.2, Arterial Blood pH 7.48H, Arterial Blood Partial Pressure CO2 35, Arterial Blood Partial Pressure O2 70L, Arterial Blood HCO3 26, Arterial Blood Total CO2 27.5, Arterial Blood Oxygen Saturation 94, Arterial Blood Base Excess 2.9H, Kenny Test ART LINE, Blood Gas Ventilator Setting YES, Blood Gas Inspired Oxygen 30% 03/10/19 08:20: Blood Gas Puncture Site NA, Blood Gas Patient Temperature 37.1, Arterial Blood pH 7.43, Arterial Blood Partial Pressure CO2 41, Arterial Blood Partial Pressure O2 67L, Arterial Blood HCO3 27, Arterial Blood Total CO2 28.4, Arterial Blood Oxygen Saturation 91L, Arterial Blood Base Excess 3.2H, Kenny Test NA, Blood Gas Ventilator Setting YES, Blood Gas Inspired Oxygen 30% 03/10/19 11:44: Glucometer 221H Microbiology 03/07/19 Blood Culture - Preliminary, Resulted No growth 03/08/19 Gram Stain - Final, Complete 03/08/19 Sputum Culture - Final, Complete No growth 02/24/19 Urine Culture - Final, Complete NO GROWTH 03/05/19 Gram Stain - Final, Complete 03/05/19 Anaerobic Culture - Final, Complete No anaerobes isolated 03/05/19 Surgical Culture - Final, Complete Marilia species Laboratory Tests 03/08/19 16:44 03/09/19 00:05 03/09/19 03:00 03/10/19 02:15 A/P: Assessment: Multiple abdominal surgeries during this admission for perforated viscus Fungemia and sepsis, managed by Hosp and ICU Svces Type 1 resp failure, managed by the Pulm Svce Paroxysmal atrial fibrillation, currently in sinus rhythm. Not suitable for anticoag because freshly post op Echo 03/04/19 (Dr Montana): LVEF 75-80%, grade 1 cabezas dysfunction, mild to mod TR, PASP approx 35 mmHg Labile hypertension Mild CAD on card caths of 2012 and 2017 History of colon cancer, treated with surgery several years ago, in remission and followed by Dr. Branham History of hyperlipidemia H/o carotid artery stenosis that is followed by Dr Montana Diabetes mellitus II H/o obstructive sleep apnea, intolerance to CPAP Plan: * Complex management due to multiple comorbidities * Monitor labs closely BETH ROMO MD FACP FAC CCDS Mar 10, 2019 15:00 POS
--- NOTE | 2019-03-10 16:30 | NUR ---
Dr Tovar in to see patient, orders noted. Patient has small amount of blood coming from right nare.
--- NOTE | 2019-03-10 16:40 | NUR ---
Levo stopped for b/p
[2019-03-10 17:03] LABS: BASOPHILS % (AUTO) 0 % (0-10); EOSINOPHILS % (AUTO) 0 % (0-10); HEMATOCRIT 28 % (35-52); HEMOGLOBIN 9.9 G/DL (11.5-16.0); LYMPHOCYTES # (AUTO) 0.4 X 10^3 (1.0-4.0); LYMPHOCYTES % (AUTO) 5 % (12-44); MEAN CORPUSCULAR HEMOGLOBIN 32 PG (25-34); MEAN CORPUSCULAR HGB CONC 35 G/DL (32-36); MEAN CORPUSCULAR VOLUME 90 FL (80-99); MEAN PLATELET VOLUME 10.3 FL (7.4-10.4); MONOCYTES # (AUTO) 0.7 X 10^3 (0.0-1.0); MONOCYTES % (AUTO) 7 % (0-12); NEUTROPHILS # (AUTO) 8.4 X 10^3 (1.8-7.8); NEUTROPHILS % (AUTO) 88 % (42-75); PLATELET COUNT 179 10^3/uL (130-400); RED CELL DISTRIBUTION WIDTH 17.5 % (10.0-14.5); WHITE BLOOD COUNT 9.5 10^3/uL (4.3-11.0)
[2019-03-10 17:24] LABS: FIBRIN DEGRADATION PRODUCTS 2.65 UG/ML (0.00-0.49); INR 1.2 (0.8-1.4); PROTHROMBIN TIME PATIENT 16.1 SEC (12.2-14.7)
[2019-03-10 17:27] LABS: CALCIUM 7.1 MG/DL (8.5-10.1); CREATININE SERUM 1.34 MG/DL (0.60-1.30); POTASSIUM 4.2 MMOL/L (3.6-5.0)
[2019-03-10 18:10] LABS: ANISOCYTOSIS MARKED; BAND NEUTROPHILS 4 %; BASOPHILS % (MANUAL) 0 %; EOSINOPHILS % (MANUAL) 0 %; LYMPHOCYTES % (MANUAL) 1 %; MONOCYTES % (MANUAL) 1 %; NEUTROPHILS % (MANUAL) 94 %
[2019-03-11] VITALS (34 sets, daily range): BP systolic 80–248; BP diastolic 27–80
[2019-03-11] MEDS: inSUlin ASPART (NovoLOG) 1 UNIT/0.01 ML (CHARGE PER UNIT) SQ SCH ×5 (00:26→23:38)
[2019-03-11] MEDS: HYDROCORTISONE 100 MG/2 ML (Solu-CORTEF) VIAL IV SCH ×5 (00:26→23:31)
[2019-03-11] MEDS: D5 LR IV SOLUTION 1,000 ML IV SCH ×5 (01:03→23:31)
[2019-03-11] MEDS: MEROPENEM 500 MG/SWFI 10 ML IV PUSH IV SCH ×6 (03:01→17:32)
[2019-03-11 03:19] LABS: BASOPHILS % (AUTO) 0 % (0-10); EOSINOPHILS % (AUTO) 0 % (0-10); HEMATOCRIT 28 % (35-52); HEMOGLOBIN 9.5 G/DL (11.5-16.0); LYMPHOCYTES # (AUTO) 0.4 X 10^3 (1.0-4.0); LYMPHOCYTES % (AUTO) 6 % (12-44); MEAN CORPUSCULAR HEMOGLOBIN 30 PG (25-34); MEAN CORPUSCULAR HGB CONC 34 G/DL (32-36); MEAN CORPUSCULAR VOLUME 90 FL (80-99); MEAN PLATELET VOLUME 10.1 FL (7.4-10.4); MONOCYTES # (AUTO) 0.6 X 10^3 (0.0-1.0); MONOCYTES % (AUTO) 8 % (0-12); NEUTROPHILS # (AUTO) 6.4 X 10^3 (1.8-7.8); NEUTROPHILS % (AUTO) 87 % (42-75); PLATELET COUNT 181 10^3/uL (130-400); RED CELL DISTRIBUTION WIDTH 17.3 % (10.0-14.5); WHITE BLOOD COUNT 7.4 10^3/uL (4.3-11.0)
[2019-03-11 03:20] LABS: ABG BASE EXCESS 2.7 MMOL/L (-2.5-2.5); ABG OXYGEN SATURATION 87 % (94-100); ABG PCO2 40 MMHG (35-45); ABG PH 7.44 (7.37-7.43); ABG PO2 54 MMHG (79-93)
[2019-03-11 03:26] LABS: ALLENS TEST ART LINE; INSPIRED O2 21%; PATIENT TEMP 36.1; VENTILATOR YES
[2019-03-11 03:37] LABS: CALCIUM 7.5 MG/DL (8.5-10.1); CREATININE SERUM 1.15 MG/DL (0.60-1.30); MAGNESIUM 2.1 MG/DL (1.6-2.4); PHOSPHORUS 4.2 MG/DL (2.3-4.7); POTASSIUM 3.9 MMOL/L (3.6-5.0)
[2019-03-11] MEDS: hydrALAZINE (APESOLINE) 20 MG/ML VIAL IV PRN (03:59)
[2019-03-11] MEDS: PROPOFOL DRIP (ICU) 100 ML IV SCH ×4 (04:49→23:31)
--- NOTE | 2019-03-11 05:17 | Pulmonary Progress Note ---
Subjective Time Seen by a Provider: 05:36 Subjective/Events-last exam Pt was reintubated. Sepsis Event Evaluation Height, Weight, BMI Height: 5'5.00" Weight: 160lbs. 0.0oz. 72.017914an; 21.79 BMI Method:Stated Focused Exam Lactate Level 03/09/19 00:05: Lactic Acid Level 1.32 03/10/19 16:50: Lactic Acid Level 1.40 Time of Focused Exam: 22:00 Exam Exam Vital Signs Date Time Temp Pulse Resp B/P (MAP) Pulse Ox O2 Delivery O2 Flow Rate FiO2 03/11/19 04:49 148/50 03/11/19 04:05 95 Mechanical Ventilator 21 03/11/19 04:01 36.1 205/42 (96) 03/11/19 02:33 59 14 94 21 03/11/19 01:00 56 03/11/19 00:00 95 Mechanical Ventilator 21 03/11/19 00:00 36.0 03/10/19 23:00 55 13 122/48 (72) 95 Mechanical Ventilator 21.00 03/10/19 22:21 56 14 121/33 (62) 95 Mechanical Ventilator 21.00 03/10/19 22:10 56 14 99 21 03/10/19 22:00 56 13 121/47 (71) 98 Mechanical Ventilator 30.00 03/10/19 21:10 62 160/38 03/10/19 21:00 58 14 128/47 (74) 97 Mechanical Ventilator 30.00 03/10/19 20:00 57 14 147/40 (75) 96 Mechanical Ventilator 30.00 03/10/19 20:00 95 Mechanical Ventilator 30 03/10/19 20:00 36.0 03/10/19 19:16 54 14 97 25 03/10/19 19:00 55 14 140/38 (72) 98 Mechanical Ventilator 30.00 03/10/19 19:00 55 03/10/19 18:00 57 13 142/34 (70) 99 Mechanical Ventilator 30.00 03/10/19 17:00 61 14 179/44 (89) 98 Mechanical Ventilator 30.00 03/10/19 16:00 95 Mechanical Ventilator 30 03/10/19 16:00 55 13 140/40 (73) 96 Mechanical Ventilator 30.00 03/10/19 15:00 59 14 109/32 (57) 99 Mechanical Ventilator 30.00 03/10/19 14:08 53 14 100 30 03/10/19 14:00 59 13 128/34 (65) 98 Mechanical Ventilator 30.00 03/10/19 13:30 58 14 108/31 (56) 98 30.00 03/10/19 13:15 58 14 117/32 (60) 98 30.00 03/10/19 13:00 59 13 124/43 (70) 96 Mechanical Ventilator 30.00 03/10/19 12:58 57 14 152/40 (77) 96 30.00 03/10/19 12:51 37.13145 59 14 123/34 95 Mechanical Ventilator 30.00 03/10/19 12:50 59 14 135/36 (69) 97 03/10/19 12:24 59 03/10/19 12:00 58 14 123/34 (63) 96 Mechanical Ventilator 30.00 03/10/19 12:00 95 Mechanical Ventilator 30 03/10/19 11:05 60 14 137/37 (70) 96 03/10/19 11:00 59 14 141/39 (73) 95 Mechanical Ventilator 30.00 03/10/19 10:55 64 14 124/35 (64) 97 03/10/19 10:50 58 14 107/31 (56) 96 Mechanical Ventilator 30.00 03/10/19 10:35 36.6 14 107/29 (55) 96 Mechanical Ventilator 30.00 03/10/19 10:22 63 14 97 30 03/10/19 10:00 66 14 122/31 (61) 97 Mechanical Ventilator 30.00 03/10/19 09:00 84 16 142/58 (86) 98 Mechanical Ventilator 30.00 03/10/19 08:17 37.1 03/10/19 08:00 95 Mechanical Ventilator 30 03/10/19 08:00 75 14 191/45 (93) 97 Mechanical Ventilator 30.00 03/10/19 07:30 37.1 67 14 179/46 (90) 96 Mechanical Ventilator 30.00 03/10/19 07:21 64 14 97 30 03/10/19 07:00 65 03/10/19 07:00 64 03/10/19 06:00 60 15 121/38 (65) 97 Mechanical Ventilator 30.00 03/10/19 05:27 36.01488 61 15 151/43 97 Mechanical Ventilator 30.00 I & O 03/11/19 07:00 Intake Total 2100 ml Output Total 2570 ml Balance -470 ml Height & Weight Height: 5'5.00" Weight: 160lbs. 0.0oz. 72.569864qm; 21.79 BMI Method:Stated General Appearance: No Apparent Distress, WD/WN HEENT: Other (intubated) Neck: Non Tender, Supple Respiratory: Lungs Clear, Normal Breath Sounds, No Respiratory Distress, Other (mechanically ventilated) Cardiovascular: Regular Rate, Rhythm, No Murmur Capillary Refill: Greater Than 3 Seconds Peripheral Pulses: 2+ Dorsalis Pedis (R), 2+ Left Dors-Pedis (L), 2+ Radial Pulses (R), 2+ Radial Pulses (L) Gastrointestinal: other (Midline incision, VAC in place, ileostomy pink and with output. Drains with serous output, ABthera VAC now has ??bile tinge) Extremity: Swelling Neurologic/Psychiatric: Other (sedated) Skin: Warm/Dry, Pallor Lymphatic: No Adenopathy Results Lab Laboratory Tests 03/10/19 02:15 03/10/19 16:50 03/11/19 03:06 Assessment/Plan Assessment/Plan Acute respiratory failure with hypoxia -Pt was reintubated for surgery yesterday secondary to recurrent abd perforation - plan is for repeat surgery again today. I will hold off on weaning vent until surgery gives ok. hypotension and episodes of bradycardia -Currently off Levophed since 1999 yesterday -Currently DLR at 150 Acute worsening anemia s/p 4 units PRBC -Monitor recurrent perforated abdominal viscus x 3 s/p repeat surgeries with resections -Cont Merrem and Eraxis -Plan is for return to surgery again today. Protein jorge malnutrition with low albumin and anasarca -Dr. Willett does not want TPN or OG for tube feeds. Plan is for repeat surgery today. - prealbumin - pending -Pt has had very little if any PO intake for at least 2wks she was admitted on 02/24. -Will add D5 to LR and start Banana bag daily -Pt has no OG per surgery Fungemia secondary to abdominal perforation -Repeat BC are negative thus far -Repeat BC collected 03/07 -Eraxis Acute renal failure with anasarca -IVF and continue to monitor Grade 1 diastolic dysfunction -Monitor Afib - currently sinus DM II Debility -PT/OT Overall prognosis is guarded to poor. Pt is still currently a full code. JAZMYNE THOMPSON DO Mar 11, 2019 05:17 POS
[2019-03-11] MEDS ORDERED: NS (IVPB) 250 ML ONE (05:49)
[2019-03-11] MEDS ORDERED: niCARdipine IV FOR DRIP 50 MG KIT ONE (05:49)
[2019-03-11] MEDS: niCARdipine IV 50 MG in NS (IVPB) 230 ML IV SCH ×2 (06:17→16:28)
[2019-03-11] MEDS: RT-IPRATROPIUM (ATROVENT) 0.5MG/2.5ML AMP IH SCH ×3 (06:24→17:57)
[2019-03-11] MEDS: RT-FLUTICASONE 220 MCG (FLOVENT) PER PUFF INH SCH ×2 (06:24→17:57)
[2019-03-11] MEDS: fentaNYL INJECTION 1,250 MCG in NS (IVPB) 250 ML IV SCH ×2 (06:26→21:34)
[2019-03-11] MEDS: KCL 20 MEQ TAB (K-DUR) PO SCH (06:29)
[2019-03-11] MEDS: MAGNESIUM 1 GM/100 ML IVPB 100 ML IV SCH (06:30)
[2019-03-11] MEDS: POTASSIUM CL 10MEQ/50ML IVPB 50 ML IV SCH (06:30)
--- NOTE | 2019-03-11 08:09 | NUR ---
CHANGED MEROPENEM TO 500MG IV Q 8 HOURS DUE TO IMPROVED SCR 1.15 AND ESTIMATED CRCL ~ 45. REMOVED STOP DATE PER DR THOMPSON.
--- NOTE | 2019-03-11 08:17 | Diagnostic Imaging Report ---
INDICATION: Dyspnea. Comparison made with prior examination 03/10/2019. FINDINGS: The heart size is normal. Mediastinum is unremarkable. There is some bibasilar atelectasis and/or pneumonitis. There is no pneumothorax. Endotracheal tube and PICC line are in satisfactory position. Mediastinum is normal. IMPRESSION: Unchanged elevation of the right hemidiaphragm with some bibasilar subsegmental atelectasis and/or pneumonitis. Dictated by: Dictated on workstation # [id number]
--- NOTE | 2019-03-11 08:19 | Physical Therapy Progress Note ---
Therapy Progress Note Patient currently sedated and on mechanical vent. Will continue to monitor patient. CHIDI AMAYA PT Mar 11, 2019 08:19 POS
--- NOTE | 2019-03-11 08:56 | Cardiology Progress Note ---
Subjective Date Seen by Provider: Mar 11, 2019 Time Seen by Provider: 08:52 Subjective/Events-last exam Patient is sedated and intubated, going for surgery this afternoon Review of Systems General: Other (Unable to provide review of systems) Focused Exam Lactate Level 03/09/19 00:05: Lactic Acid Level 1.32 03/10/19 16:50: Lactic Acid Level 1.40 Time of Focused Exam: 22:00 Objective-Cardiology Exam Last Set of Vital Signs Vital Signs 03/11/19 03/11/19 03/11/19 03/11/19 06:00 06:24 07:30 08:00 Temp 36.0 Pulse 94 Resp 21 B/P (MAP) 222/46 (104) Pulse Ox 98 O2 Delivery Mechanical Ventilator O2 Flow Rate 21.00 FiO2 30 Capillary Refill : Less Than 3 SecondsGreater Than 3 Seconds I&O Intake and Output 03/11/19 00:00 Intake Total 2300 ml Output Total 2670 ml Balance -370 ml Intake Oral 0 ml IV Total 2300 ml Output Urine Total 1775 ml Drainage Total 895 ml General: Alert, Cooperative, Moderate Distress, Other (Sit 8 at antegrade) HEENT: Atraumatic Neck: Supple, No Thyromegaly Lungs: Normal Air Movement, Other (Bilateral rhonchi) Heart: Regular Rate, Normal S1, Normal S2, No Murmurs Abdomen: No Masses, Other (Diminished bowel sounds) Extremities: No Clubbing, No Cyanosis, Normal Pulses, No Tenderness/Swelling, Other (Bilateral edema) Skin: No Rashes Neuro: Normal Speech, Other (Sedated and intubated) Psych/Mental Status: Mental Status NL, Other (Sedated and intubated) Results Lab Laboratory Tests 03/10/19 16:50 03/11/19 03:06 A/P-Cardiology Admission Diagnosis Acute respiratory failure Paroxysmal atrial fibrillation Coronary artery disease Hypertension Assessment/Plan Sepsis, multiple abdominal surgery, going back for the OR this afternoon Respiratory failure, ventilatory dependent, going for another surgery today Fungemia, sepsis, managed by primary care team Labile hypotension, episode of hypertension, maintained on pressors, blood pressure appeared to be more stable at this time. Continue to monitor closely Paroxysmal atrial fibrillation, currently in sinus rhythm, blood pressure is stable, continue to monitor S/p small bowel resection secondary to perf at anastomosis site, had multiple surgery for recurrent perforation, going for another surgery today. Coronary artery disease, history of cardiac catheterization in July 2012 showing 50 percent midright coronary artery stenosis, nonobstructive disease, had a borderline disease in the midright coronary artery. Most recent cardiac catheterization done April 2018 revealed mild ectasia in the proximal LAD with mild disease in the mid LAD, small vessel disease distally, mild ectasia in the proximal circumflex artery and 40-50 percent stenosis in the mid right coronary artery, nonobstructive disease, continue to monitor History of colon cancer, history of colon resection and colostomy in the remote past has been in remission and followed by Dr. Branham History of hyperlipidemia Carotid artery stenosis , continue to monitor as outpatient. Syncope, had a syncopal episode in October 2015 probably due to dehydration. Was in renal failure. Improved. History of thyroid nodules noted on ultrasound, followed by Dr. Branham and Dr. Simmons Diabetes mellitus, followed and managed by primary care physician. History of colon cancer, history of colostomy. Currently in remission. Followed by Dr. Branham Family history of coronary artery disease. Obstructive sleep apnea, intolerance to CPAP History of appendectomy, kidney stones, hysterectomy. Breast biopsy. Clinical Quality Measures DVT/VTE Risk/Contraindication: Risk Factor Score Per Nursin RFS Level Per Nursing on Admit: 4+=Very High NAYA URIAS MD Mar 11, 2019 08:56 POS
--- NOTE | 2019-03-11 09:16 | Progress Note - Hospitalist ---
Subjective HPI/CC On Admission Date Seen by Provider: Mar 11, 2019 Time Seen by Provider: 09:11 abdominal pain Subjective/Events-last exam Pt remains intubated and sedated. Plan is for return to OR. Discussed with friend at bedside and has no questions or concerns. Discussed with RN. BP labile and alternates between cardene and levophed. Focused Exam Lactate Level 03/09/19 00:05: Lactic Acid Level 1.32 03/10/19 16:50: Lactic Acid Level 1.40 Time of Focused Exam: 22:00 Objective Exam Vital Signs Vital Signs Date Time Temp Pulse Resp B/P (MAP) Pulse Ox O2 Delivery O2 Flow Rate FiO2 03/11/19 08:00 98 Mechanical Ventilator 30 03/11/19 07:30 36.0 03/11/19 07:00 91 03/11/19 06:24 21 03/11/19 06:00 222/46 (104) 21.00 Capillary Refill : Less Than 3 SecondsGreater Than 3 Seconds General Appearance: Chronically ill, Other (sedated on on vent) Respiratory: Lungs Clear, No Respiratory Distress, Other (on vent) Cardiovascular: Regular Rate, Rhythm, No Murmur Gastrointestinal: Normal Bowel Sounds, Soft Genital/Rectal: Other (hall in place) Extremity: Swelling Neurologic/Psychiatric: Other (sedated) Results/Procedures Lab Laboratory Tests 03/10/19 16:50 03/11/19 03:06 Patient resulted labs reviewed. Imaging: Reviewed Imaging Report Assessment/Plan Assessment and Plan Assess & Plan/Chief Complaint Perforated abdominal viscus -Management per primary -Continue meropenem and eraxis -Multiple abdominal surgeries this admission -Abdomen left open for return to surgery today per Dr Willett Lactic acidosis, resolved Shock -Continue pressors as needed -continue stress dose steroids Acute kidney injury- resolved Hypernatremia, resolved -Cr improving, urine output increased with MAP >65 -Monitor output closely Severe protein-calorie malnutrition -Needs nutrition as soon as feasible, will discuss with surgery on goals of enteral feeds -Prealbumin <3 Fungemia -Continue Eraxis -repeat blood cultures negative Acute hypoxemic respiratory failure -Currently intubated -Pulmonology following Postoperative anemia -Hgb improved post-transfusion, stable -Continue to monitor Hypertension -Was on cardene this morning but no longer Paroxysmal atrial fibrillation -Cardiology following T2DM -Sliding scale insulin - Consider levemir as she is not on D5 and steroids Critical illness myopathy -PT/OT -Will require acute rehab vs LTAC vs SNF on discharge Critical Care Critically Ill Patient Diagnosis/Problems Diagnosis/Problems (1) Shock Status: Acute (2) Acute respiratory failure Status: Acute Qualifiers: Respiratory failure complication: unspecified whether with hypoxia or hypercapnia Qualified Codes: J96.00 - Acute respiratory failure, unspecified whether with hypoxia or hypercapnia (3) Fungemia Status: Acute (4) Atrial fibrillation with RVR (5) Perforated abdominal viscus Status: Acute (6) Acute renal failure Status: Acute Qualifiers: Acute renal failure type: with acute tubular necrosis Qualified Codes: N17.0 - Acute kidney failure with tubular necrosis (7) Hypovolemia dehydration Status: Acute (8) Bilateral pleural effusion Status: Acute (9) IDDM (insulin dependent diabetes mellitus) Status: Chronic (10) Lactic acidosis Status: Acute (11) UTI (urinary tract infection) Status: Resolved Qualifiers: Urinary tract infection type: acute cystitis Hematuria presence: without hematuria Qualified Codes: N30.00 - Acute cystitis without hematuria Resolution Date/Time: 02/27/19 @ 08:40 Clinical Quality Measures DVT/VTE Risk/Contraindication: Risk Factor Score Per Nursin RFS Level Per Nursing on Admit: 4+=Very High ABIGAIL PORTER MD Mar 11, 2019 09:15 POS
--- NOTE | 2019-03-11 09:23 | Progress Note - Surgery ---
BECCA CHANDLER MED STUDENT 03/11/19 0923: Subjective Date Seen by a Provider: Mar 11, 2019 Time Seen by a Provider: 06:45 Subjective/Events-last exam I was not able to wake Ms. Samson today, and was not able to get a ROS. Nursing reports that she had opened her eyes during the night and could nod or shake her head, but she would not squeeze people's hands or communicate otherwise. She had high blood pressure last night/recruitment specialist, 222/46 at 6:00, and her levophed was stopped. Woundvac has brown fluid in it, nursing reports 600 mL drained last night from woundvac, 200 mL total from MARKUS tubes with serosanguinous fluid in 2 tubes, yellow fluid in 1 tube. CXR today shows unchanged elevation of the right hemidiaphragm with some bibasilar subsegmental atelectasis and/or pneumonitis. Focused Exam Lactate Level 03/09/19 00:05: Lactic Acid Level 1.32 03/10/19 16:50: Lactic Acid Level 1.40 Time of Focused Exam: 22:00 Objective Exam Vital Signs Date Time Temp Pulse Resp B/P (MAP) Pulse Ox O2 Delivery O2 Flow Rate FiO2 03/11/19 08:00 98 Mechanical Ventilator 30 03/11/19 07:30 36.0 03/11/19 07:00 91 03/11/19 06:24 94 21 90 30 03/11/19 06:00 81 22 222/46 (104) 89 Mechanical Ventilator 21.00 03/11/19 05:00 81 18 223/43 (102) 90 Mechanical Ventilator 21.00 03/11/19 04:49 148/50 03/11/19 04:05 95 Mechanical Ventilator 21 03/11/19 04:01 36.1 205/42 (96) 03/11/19 04:00 65 15 210/43 (98) 94 Mechanical Ventilator 21.00 03/11/19 03:00 65 16 153/58 (89) 94 Mechanical Ventilator 21.00 03/11/19 02:33 59 14 94 21 03/11/19 02:00 56 14 139/51 (80) 93 Mechanical Ventilator 21.00 03/11/19 01:00 56 03/11/19 01:00 56 13 137/53 (81) 94 Mechanical Ventilator 21.00 03/11/19 00:00 95 Mechanical Ventilator 21 03/11/19 00:00 55 13 126/53 (77) 96 Mechanical Ventilator 21.00 03/11/19 00:00 36.0 03/10/19 23:00 55 13 122/48 (72) 95 Mechanical Ventilator 21.00 03/10/19 22:21 56 14 121/33 (62) 95 Mechanical Ventilator 21.00 03/10/19 22:10 56 14 99 21 03/10/19 22:00 56 13 121/47 (71) 98 Mechanical Ventilator 30.00 03/10/19 21:10 62 160/38 03/10/19 21:00 58 14 128/47 (74) 97 Mechanical Ventilator 30.00 03/10/19 20:00 57 14 147/40 (75) 96 Mechanical Ventilator 30.00 03/10/19 20:00 95 Mechanical Ventilator 30 03/10/19 20:00 36.0 03/10/19 19:16 54 14 97 25 03/10/19 19:00 55 14 140/38 (72) 98 Mechanical Ventilator 30.00 03/10/19 19:00 55 03/10/19 18:00 57 13 142/34 (70) 99 Mechanical Ventilator 30.00 03/10/19 17:00 61 14 179/44 (89) 98 Mechanical Ventilator 30.00 03/10/19 16:00 95 Mechanical Ventilator 30 03/10/19 16:00 55 13 140/40 (73) 96 Mechanical Ventilator 30.00 03/10/19 15:00 59 14 109/32 (57) 99 Mechanical Ventilator 30.00 03/10/19 14:08 53 14 100 30 03/10/19 14:00 59 13 128/34 (65) 98 Mechanical Ventilator 30.00 03/10/19 13:30 58 14 108/31 (56) 98 30.00 03/10/19 13:15 58 14 117/32 (60) 98 30.00 03/10/19 13:00 59 13 124/43 (70) 96 Mechanical Ventilator 30.00 03/10/19 12:58 57 14 152/40 (77) 96 30.00 03/10/19 12:51 37.15510 59 14 123/34 95 Mechanical Ventilator 30.00 03/10/19 12:50 59 14 135/36 (69) 97 03/10/19 12:24 59 11/3/19 12:00 58 14 123/34 (63) 96 Mechanical Ventilator 30.00 03/10/19 12:00 95 Mechanical Ventilator 30 03/10/19 11:05 60 14 137/37 (70) 96 03/10/19 11:00 59 14 141/39 (73) 95 Mechanical Ventilator 30.00 03/10/19 10:55 64 14 124/35 (64) 97 03/10/19 10:50 58 14 107/31 (56) 96 Mechanical Ventilator 30.00 03/10/19 10:35 36.6 14 107/29 (55) 96 Mechanical Ventilator 30.00 03/10/19 10:22 63 14 97 30 03/10/19 10:00 66 14 122/31 (61) 97 Mechanical Ventilator 30.00 I & O 03/11/19 07:00 Intake Total 2475 ml Output Total 3255 ml Balance -780 ml Capillary Refill : Less Than 3 SecondsGreater Than 3 Seconds General Appearance: Chronically ill, Obese HEENT: Other (intubated) Neck: Non Tender, Supple Respiratory: Lungs Clear, Normal Breath Sounds, No Respiratory Distress, Other (mechanically ventilated) Cardiovascular: Regular Rate, Rhythm, No Murmur, Normal Peripheral Pulses Peripheral Pulses: 2+ Dorsalis Pedis (R), 2+ Left Dors-Pedis (L), 2+ Radial Pulses (R), 2+ Radial Pulses (L) Gastrointestinal: abnormal bowel sounds (hypoactive), other (Midline incision, VAC in place, ileostomy pink and with output. Drains with serous output, ABthera VAC now has ??bile tinge) Extremity: Normal Capillary Refill, Pedal Edema, Swelling Neurologic/Psychiatric: No Alert, No Oriented x3; Other (sedated) Skin: Warm/Dry, Pallor Lymphatic: No Adenopathy Results Lab Laboratory Tests 03/10/19 11:44: Glucometer 221H 03/10/19 16:50: White Blood Count 9.5, Red Blood Count 3.13L, Hemoglobin 9.9L, Hematocrit 28L, Mean Corpuscular Volume 90, Mean Corpuscular Hemoglobin 32, Mean Corpuscular Hemoglobin Concent 35, Red Cell Distribution Width 17.5H, Platelet Count 179, Mean Platelet Volume 10.3, Neutrophils (%) (Auto) 88H, Lymphocytes (%) (Auto) 5L , Monocytes (%) (Auto) 7, Eosinophils (%) (Auto) 0, Basophils (%) (Auto) 0, Neutrophils # (Auto) 8.4H, Lymphocytes # (Auto) 0.4L, Monocytes # (Auto) 0.7, Eosinophils # (Auto) 0.0, Basophils # (Auto) 0.0, Neutrophils % (Manual) 94, Lymphocytes % (Manual) 1, Monocytes % (Manual) 1, Eosinophils % (Manual) 0, Basophils % (Manual) 0, Band Neutrophils 4, Anisocytosis MARKED, Prothrombin Time 16.1H, INR Comment 1.2, Activated Partial Thromboplast Time 29, Fibrinogen 452, D-Dimer 2.65H, Sodium Level 139, Potassium Level 4.2, Chloride Level 107, Carbon Dioxide Level 23, Anion Gap 9, Blood Urea Nitrogen 70H, Creatinine 1.34H, Estimat Glomerular Filtration Rate 39, BUN/Creatinine Ratio 52, Glucose Level 252H, Lactic Acid Level 1.40, Calcium Level 7.1L 03/11/19 00:22: Glucometer 303H 03/11/19 03:06: White Blood Count 7.4, Red Blood Count 3.15L, Hemoglobin 9.5L, Hematocrit 28L, Mean Corpuscular Volume 90, Mean Corpuscular Hemoglobin 30, Mean Corpuscular Hemoglobin Concent 34, Red Cell Distribution Width 17.3H, Platelet Count 181, Mean Platelet Volume 10.1, Neutrophils (%) (Auto) 87H, Lymphocytes (%) (Auto) 6L , Monocytes (%) (Auto) 8, Eosinophils (%) (Auto) 0, Basophils (%) (Auto) 0, Neutrophils # (Auto) 6.4, Lymphocytes # (Auto) 0.4L, Monocytes # (Auto) 0.6, Eosinophils # (Auto) 0.0, Basophils # (Auto) 0.0, Sodium Level 144, Potassium Level 3.9, Chloride Level 110H, Carbon Dioxide Level 23, Anion Gap 11, Blood Urea Nitrogen 46H, Creatinine 1.15, Estimat Glomerular Filtration Rate 46, BUN/Creatinine Ratio 40, Glucose Level 298H, Calcium Level 7.5L, Blood Gas Puncture Site RIGHT ARTLINE, Blood Gas Patient Temperature 36.1, Arterial Blood pH 7.44H, Arterial Blood Partial Pressure CO2 40, Arterial Blood Partial Pressure O2 54L, Arterial Blood HCO3 27, Arterial Blood Total CO2 28.0, Arterial Blood Oxygen Saturation 87L, Arterial Blood Base Excess 2.7H, Kenny Test ART LINE, Blood Gas Ventilator Setting YES, Blood Gas Inspired Oxygen 21%, Phosphorus Level 4.2, Magnesium Level 2.1 Microbiology 03/07/19 Blood Culture - Preliminary, Resulted No growth 03/08/19 Gram Stain - Final, Complete 03/08/19 Sputum Culture - Final, Complete No growth 02/24/19 Urine Culture - Final, Complete NO GROWTH 03/05/19 Gram Stain - Final, Complete 03/05/19 Anaerobic Culture - Final, Complete No anaerobes isolated 03/05/19 Surgical Culture - Final, Complete Marilia species Assessment/Plan Assessment/Plan Assessment/Plan Abthera Wound VAC removal, washout and examine anastomosis today, pt may have to have a second ileostomy. Clinical Quality Measures DVT/VTE Risk/Contraindication: Risk Factor Score Per Nursin RFS Level Per Nursing on Admit: 4+=Very High MISSY MONTEJO DO 03/11/19 1344: Subjective Time Seen by a Provider: 13:30 Subjective/Events-last exam Pt seen and examined, drainage from Abthera looks brown again. She is sedated on vent. Objective Exam Gastrointestinal: distended (abdomen looks distended compared to yesterday) Assessment/Plan Assessment/Plan Assessment/Plan Small bowel perforation S/P multiple attempts at closure Pt is going back to OR today for planned washout and removal of Abthera. Unfortunately it looks like she may have leakage from intestine; she has a very poor nutrition status and her abdomen had a lot of fecal contamination - both of which make it very hard for her to heal, most likely the reason she keeps having failure at staple line. She may finally have to have another ileostomy creation on the left side, unfortunately that side (the peritoneum) looks horrible with film of fecal contamination and necrosis. Supervisory-Addendum Brief Verification & Attestation Participated in pt care: history, MDM, physical Personally performed: exam, history, MDM Care discussed with: Medical Student Procedures: n/a Verification and Attestation of Medical Student E/M Service A medical student performed and documented this service in my presence. I reviewed and verified all information documented by the medical student and made modifications to such information, when appropriate. I personally performed the physical exam and medical decision making. Missy Montejo, Mar 11, 2019,13:44 BECCA CHANDLER MED STUDENT Mar 11, 2019 09:23 MISSY JAMES DO Mar 11, 2019 13:44 POS
[2019-03-11] MEDS: THIAMINE INJECTION 100 MG, FOLIC ACID INJECTION 1 MG, VITAMIN MULTI INJECTION 10 ML, MA... IV SCH ×5 (10:27)
[2019-03-11] MEDS: PANTOPRAZOLE 40 MG (PROTONIX) VIAL IV SCH (10:27)
[2019-03-11] MEDS: ANIDULAFUNGIN INJECTION 100 MG in NS (IVPB) 100 ML IV SCH (10:28)
[2019-03-11] MEDS: PATCH REMOVAL TP SCH (10:38)
[2019-03-11] MEDS ORDERED: fentaNYL INJECTION 100 MCG/2 ML AMP ONE (12:51)
[2019-03-11] MEDS ORDERED: ONDANSETRON 4 MG/2 ML (SDV) Z0FRAN ONE (12:51)
[2019-03-11] MEDS ORDERED: ROCURONIUM 10 MG/ML 5 ML SYRINGE IV ONE (12:51)
--- NOTE | 2019-03-11 12:58 | Occ Therapy Progress Note ---
Therapy Progress Note OT treatment withheld this date as pt remains on the ventilator, is unable to rouse, and will return to surgical floor this date. BRIGIDA GLOVER OT Mar 11, 2019 12:58 POS
--- NOTE | 2019-03-11 13:39 | Speech Therapy Progress Note ---
Therapy Progress Note Patient is unable to participate due to sedation and on mechanical vent. ST will continue to monitor. BUCKY VIVAS Mar 11, 2019 13:39 POS
[2019-03-11] MEDS ORDERED: SEVOFLURANE (ULTANE) 15 ML INHAL SOLN ONE (14:44)
--- NOTE | 2019-03-11 14:49 | Progress Note-Post Operative ---
Post-Operative Progess Note Surgeon (s)/Customer Relations Representative (s) Surgeon MISSY MONTEJO DO Customer Relations Representative: Noel Pre-Operative Diagnosis Pneumoperitoneum, Hydroperitoneum, B/L Pleural Effusion, Resp Failure Post-Operative Diagnosis Small bowel fistula x 2 Procedure & Operative Findings Date of Procedure 03/11/19 Procedure Performed/Findings 1. SBR 2. Diverting Ileostomy 3. Abthera wound VAC placment Anesthesia Type GET Estimated Blood Loss Estimated blood loss (mL): less than 50ml Specimens/Packing Specimens Removed portion of small bowel MISSY MONTEJO DO Mar 11, 2019 14:49 POS
[2019-03-11] MEDS ORDERED: NS IV 500 ML 500 ML ONE (16:32)
--- NOTE | 2019-03-11 20:12 | OPERATIVE REPORT ---
DATE OF SERVICE: 03/11/2019 PREOPERATIVE DIAGNOSES: Possible anastomotic perforation. Plan to take back for ABThera wound VAC change. POSTOPERATIVE DIAGNOSES: Two small bowel fistulas found; anastomosis looked intact. PROCEDURE: 1. Small bowel resection. 2. Diverting ileostomy. 3. Abdominal washout with ABThera wound VAC placement. SURGEON: Missy Willett DO. HANDS AND DIAL INSPECTOR: Jordin Cohen DO. ANESTHESIA: General endotracheal tube. SPECIMEN: Portion of small bowel. BLOOD LOSS: Less than 50 mL. FLUIDS: Per anesthesia. POSTOPERATIVE CONDITION: Stable. INDICATION FOR PROCEDURE: The patient is a 73-year-old female who unfortunately has had a long protracted course. Last time, she had had a perforation of the anastomosis with ABThera wound VAC placed into open abdomen and she was scheduled to go back today to have that exchanged possibly abdominal closure, but it looked like she had some bowel contents coming out of the drain. FINDINGS: The patient had 2 fistulas near the previous anastomosis, but not coming from the anastomosis. PROCEDURE NOTE: After informed consent was obtained, the patient was brought to the operating room, placed on the operating table in supine position. She was sterilely prepped and draped in normal fashion. ABThera wound VAC was taken down and then noted to have 2 small fistulas coming out of the small bowel right around the anastomosis. At this point, I elected to resect this portion of bowel, staple off the distal portion of the small bowel and then we elected to create a diverting ileostomy, got below this, the previous anastomosis under the distal small bowel through the mesentery with blunt dissection and placed a BINH-75 across, clamped and fired, thereby transecting it and then above the anastomosis proximally, again, got under the small bowel through the mesentery bluntly as well as with Bovie electrocautery, used another BINH-75 clamped and fired, thereby transecting and then using LigaSure to come across the mesentery. There was some bleeding from the mesentery. This was controlled with the LigaSure as well as the 2-0 Vicryl pop-offs. Once removed, this was passed off the table, washed this out, looked around. Elected to free up the small intestine and then created a diverting loop ileostomy in the left lower quadrant of the abdomen, made a defect in the skin grasping the skin with an Allis and then cutting with the Bovie electrocautery, creating a circular opening, dissecting down through the subcutaneous fat to the fascia. A cruciate incision was then made in the fascia, placed 2 fingers though ppening in the muscle and then from the inside, we used electrocautery to incise the peritoneum and then pushed fingers 2-1/2, almost 3 fingers through and then brought the proximal portion of small bowel through here, cut this off and then did a Puja ileostomy to create a diverting ileostomy. At this point, again irrigated with normal saline and suctioned this out and then elected to place an ABThera wound VAC, so that we could look again and make sure we had no more previous holes and then hopefully in the next surgery close with maybe a Vicryl mesh and the sleeve with a diverting loop ileostomy, we would change later. Sponge, instrument and needle count correct at the end of the case. The patient was transferred back to the ICU in stable condition. Job ID: [id number] DocumentID: [id number] Dictated Date: 03/11/2019 15:04:12 Attendance Clerk Date: 03/11/2019 20:11:44 Dictated By: MISSY WILLETT DO MTDArlen
[2019-03-12] VITALS (31 sets, daily range): BP systolic 111–183; BP diastolic 36–51
[2019-03-12] MEDS: niCARdipine IV 50 MG in NS (IVPB) 230 ML IV SCH ×3 (02:51→19:36)
[2019-03-12] MEDS: MEROPENEM 500 MG/SWFI 10 ML IV PUSH IV SCH ×6 (03:02→17:38)
[2019-03-12 03:07] LABS: ABG BASE EXCESS 1.8 MMOL/L (-2.5-2.5); ABG OXYGEN SATURATION 91 % (94-100); ABG PCO2 41 MMHG (35-45); ABG PH 7.42 (7.37-7.43); ABG PO2 58 MMHG (79-93); ABG TCO2 27.4 MMOL/L (21.0-31.0)
[2019-03-12 03:08] LABS: BASOPHILS % (AUTO) 0 % (0-10); EOSINOPHILS % (AUTO) 0 % (0-10); HEMATOCRIT 28 % (35-52); HEMOGLOBIN 9.3 G/DL (11.5-16.0); LYMPHOCYTES # (AUTO) 0.3 X 10^3 (1.0-4.0); LYMPHOCYTES % (AUTO) 4 % (12-44); MEAN CORPUSCULAR HEMOGLOBIN 30 PG (25-34); MEAN CORPUSCULAR HGB CONC 33 G/DL (32-36); MEAN CORPUSCULAR VOLUME 92 FL (80-99); MEAN PLATELET VOLUME 9.9 FL (7.4-10.4); MONOCYTES # (AUTO) 0.7 X 10^3 (0.0-1.0); MONOCYTES % (AUTO) 9 % (0-12); NEUTROPHILS # (AUTO) 6.4 X 10^3 (1.8-7.8); NEUTROPHILS % (AUTO) 87 % (42-75); PLATELET COUNT 178 10^3/uL (130-400); RED CELL DISTRIBUTION WIDTH 17.5 % (10.0-14.5); WHITE BLOOD COUNT 7.4 10^3/uL (4.3-11.0)
[2019-03-12 03:09] LABS: ALLENS TEST ART LINE
[2019-03-12 03:10] LABS: INSPIRED O2 30%; PATIENT TEMP 36.1; VENTILATOR YES
[2019-03-12 03:28] LABS: CALCIUM 7.1 MG/DL (8.5-10.1); CREATININE SERUM 0.98 MG/DL (0.60-1.30); PHOSPHORUS 3.6 MG/DL (2.3-4.7); POTASSIUM 3.9 MMOL/L (3.6-5.0)
--- NOTE | 2019-03-12 03:37 | Pulmonary Progress Note ---
LILA VAUGHN A MEDICAL STUDENT 03/12/19 0337: Subjective Time Seen by a Provider: 03:32 Subjective/Events-last exam Pt had small bowel resection and diverting ileostomy with washout and woundvac placement yesterday. Pt currently sedated and intubated. No acute events overnight Sepsis Event Evaluation Height, Weight, BMI Height: 5'5.00" Weight: 160lbs. 0.0oz. 72.506309va; 21.79 BMI Method:Stated Focused Exam Lactate Level 03/10/19 16:50: Lactic Acid Level 1.40 Time of Focused Exam: 22:00 Exam Exam Vital Signs Date Time Temp Pulse Resp B/P (MAP) Pulse Ox O2 Delivery O2 Flow Rate FiO2 03/12/19 01:51 60 15 99 40 03/12/19 01:00 65 03/12/19 00:00 100 Mechanical Ventilator 40 03/11/19 23:39 35.8 Mechanical Ventilator 40.00 03/11/19 23:31 35.16020 73 24 130/46 100 Mechanical Ventilator 50.00 03/11/19 21:58 73 24 100 50 03/11/19 20:00 100 Mechanical Ventilator 50 03/11/19 19:27 35.8 77 12 165/42 (83) 100 Mechanical Ventilator 50.00 03/11/19 19:00 81 03/11/19 18:00 82 9 171/41 (84) 99 Mechanical Ventilator 50.00 03/11/19 17:57 81 21 99 50 03/11/19 17:45 173/43 03/11/19 17:00 84 13 175/42 (86) 99 Mechanical Ventilator 50.00 03/11/19 16:05 36.3 15 120/70 (87) 96 Mechanical Ventilator 03/11/19 16:05 Mechanical Ventilator 03/11/19 16:00 36.5 27 105/67 (80) 98 Mechanical Ventilator 03/11/19 16:00 98 Mechanical Ventilator 30 03/11/19 16:00 83 23 179/46 (90) 98 Mechanical Ventilator 50.00 03/11/19 15:55 Mechanical Ventilator 03/11/19 15:50 36.5 18 137/52 (80) 97 Mechanical Ventilator 03/11/19 15:45 Mechanical Ventilator 03/11/19 15:40 14 157/64 (95) 97 Mechanical Ventilator 03/11/19 15:30 14 157/64 (95) 98 Mechanical Ventilator 03/11/19 15:30 84 21 248/71 (129) 98 Mechanical Ventilator 50.00 03/11/19 15:30 Mechanical Ventilator 03/11/19 15:23 87 14 97 50 03/11/19 15:20 14 163/68 (99) 96 Mechanical Ventilator 03/11/19 15:13 Mechanical Ventilator 03/11/19 15:13 36.1 14 153/66 (95) 96 Mechanical Ventilator 03/11/19 13:00 58 14 150/60 (90) 95 Mechanical Ventilator 21.00 03/11/19 13:00 58 03/11/19 12:00 98 Mechanical Ventilator 30 03/11/19 12:00 57 14 115/80 (92) 95 Mechanical Ventilator 21.00 03/11/19 11:00 61 13 155/56 (89) 95 Mechanical Ventilator 21.00 03/11/19 10:20 59 14 95 30 03/11/19 10:08 58 116/44 03/11/19 10:00 58 14 148/54 (85) 94 Mechanical Ventilator 21.00 03/11/19 09:00 60 14 138/35 (69) 93 Mechanical Ventilator 21.00 03/11/19 08:00 98 Mechanical Ventilator 30 03/11/19 08:00 64 11 105/27 (53) 95 Mechanical Ventilator 21.00 03/11/19 07:30 36.0 03/11/19 07:00 92 17 168/36 (80) 97 Mechanical Ventilator 21.00 03/11/19 07:00 91 03/11/19 06:24 94 21 90 30 03/11/19 06:00 81 22 222/46 (104) 89 Mechanical Ventilator 21.00 03/11/19 05:00 81 18 223/43 (102) 90 Mechanical Ventilator 21.00 03/11/19 04:49 148/50 03/11/19 04:05 95 Mechanical Ventilator 21 03/11/19 04:01 36.1 205/42 (96) 03/11/19 04:00 65 15 210/43 (98) 94 Mechanical Ventilator 21.00 I & O 03/12/19 07:00 Intake Total 1350 ml Output Total 2620 ml Balance -1270 ml Height & Weight Height: 5'5.00" Weight: 160lbs. 0.0oz. 72.134024ee; 21.79 BMI Method:Stated General Appearance: Chronically ill, Obese HEENT: Other (intubated) Neck: Supple Respiratory: Lungs Clear, Normal Breath Sounds, No Respiratory Distress, Other (mechanically ventilated) Cardiovascular: Regular Rate, Rhythm, No Murmur, Normal Peripheral Pulses Capillary Refill: Greater Than 3 Seconds Peripheral Pulses: 2+ Dorsalis Pedis (R), 2+ Left Dors-Pedis (L), 2+ Radial Pulses (R), 2+ Radial Pulses (L) Gastrointestinal: distended (abdomen looks distended compared to yesterday) Extremity: Normal Capillary Refill, Pedal Edema, Swelling Neurologic/Psychiatric: No Alert, No Oriented x3; Other (sedated) Skin: Warm/Dry, Pallor Lymphatic: No Adenopathy Other comments IN: 1867 Out: [id number] Net: -[id number] Lines: Raquel - 200ml/hr propofol 17ml/hr LR 150ml/Hr Fentanyl - 26.4ml/hr Anidulafuryin - 85ml/hr Results Lab Laboratory Tests 03/10/19 16:50 03/11/19 03:06 03/12/19 03:00 Assessment/Plan Assessment/Plan Acute respiratory failure with hypoxia Pt currently intubated, status post surgery yesterday with small bowel resection and diverting ileostomy and WoundVac placement hypotension and episodes of bradycardia with episode of hypertension -Pt has remained off of levophed due to episode of hypertension yesterday and has not had another episode of hypertension -Currently DLR at 150 Acute worsening anemia s/p 4 units PRBC -Monitor -PT Hgb stable at 9.3 today recurrent perforated abdominal viscus x 3 s/p repeat surgeries with resections -Cont Merrem and Eraxis -status post surgery yesterday with small bowel resection and diverting ileostomy and WoundVac placement Protein jorge malnutrition with low albumin and anasarca -Dr. Willett does not want TPN or OG for tube feeds. Plan is for repeat surgery today. - prealbumin - <3 -Pt has had very little if any PO intake for at least 2wks she was admitted o n 02/24. -Pt currently on D5 to LR and start Banana bag daily -Pt has no OG per surgery Fungemia secondary to abdominal perforation -Repeat BC are negative -Repeat BC collected 03/07 -Eraxis Acute renal failure with anasarca -IVF and continue to monitor Grade 1 diastolic dysfunction -Monitor Afib - currently sinus DM II Debility -PT/OT Overall prognosis is guarded to poor. Pt is still currently a full code. FRANCIE MARTINEZSON Gumaro CANTU 03/12/19 0447: Subjective Time Seen by a Provider: 04:41 Subjective/Events-last exam Plan is for back to surgery tomorrow per RN. Exam Exam General Appearance: Chronically ill, Obese HEENT: Other (intubated) Respiratory: Lungs Clear, Normal Breath Sounds, No Respiratory Distress, Other (mechanically ventilated) Cardiovascular: Regular Rate, Rhythm, No Murmur, Normal Peripheral Pulses Gastrointestinal: distended (abdomen looks distended compared to yesterday) Extremity: Normal Capillary Refill, Pedal Edema, Swelling Skin: Warm/Dry Lymphatic: No Adenopathy Assessment/Plan Assessment/Plan Acute respiratory failure with hypoxia -Plan is to back to surgery tomorrow -Will leave patient on Vent until ok with surgery to wean hypotension and episodes of bradycardia with episode of hypertension -Levophed is off -Cardene has been off since 144 -Currently DLR at 150 -Start Clinimax at 125cc/hr -Decrease D5LR to 50cc/hr -IN: 2725 Out: [id number] Net: -[id number] Lines: Raquel - 200ml/hr propofol 17ml/hr LR 150ml/Hr Fentanyl - 26.4ml/hr Anidulafuryin - 85ml/hr Hyperglycemia -Change to Q4 accu checks -may need to add Levemir 10 units -Continue D5 secondary to pt's severe malnutrition state. Acute worsening anemia s/p 4 units PRBC -Monitor -PT Hgb stable at 9.3 today recurrent perforated abdominal viscus x 3 s/p repeat surgeries with resections -Cont Merrem and Eraxis -status post surgery yesterday with small bowel resection and diverting ileostomy and WoundVac placement Protein jorge malnutrition with low albumin and anasarca -Dr. Willett does not want TPN or OG for tube feeds. Plan is for repeat surgery today. - prealbumin - <3 -Start Clinimax at 125cc/hr -Decrease D5LR to 50cc/hr -Pt has had very little if any PO intake for at least 2wks she was admitted on 02/24. -Pt currently on D5 to LR and continue Banana bag daily -Pt does have OG tube. -- Start TF JUSTICE when ok with surgery. -Will need to monitor for refeeding syndrome once TF are started. Fungemia secondary to abdominal perforation -Repeat BC are negative -Repeat BC collected 03/07 -Eraxis Acute renal failure with anasarca -IVF and continue to monitor -With dark concentrated urine -- Will give liter bolus of LR. Grade 1 diastolic dysfunction -Monitor Afib - currently sinus DM II Debility -PT/OT Overall prognosis is guarded to poor. Pt is still currently a full code. Supervisory-Addendum Brief Verification & Attestation Participated in pt care: history Personally performed: exam, history Care discussed with: Medical Student Procedures: n/a Verification and Attestation of Medical Student E/M Service A medical student performed and documented this service in my presence. I reviewed and verified all information documented by the medical student and made modifications to such information, when appropriate. I personally performed the physical exam and medical decision making. Mika Martinez, Mar 12, 2019,06:28 LILA VAUGHN MEDICAL STUDENT Mar 12, 2019 03:37 MIKA VERDUGO DO Mar 12, 2019 04:47 POS
[2019-03-12] MEDS ORDERED: LACTATED RINGERS 1,000 ML IV SCH (05:00)
[2019-03-12] MEDS: POTASSIUM CL 10MEQ/50ML IVPB 50 ML IV SCH (05:11)
[2019-03-12] MEDS: MAGNESIUM 1 GM/100 ML IVPB 100 ML IV SCH (05:11)
[2019-03-12] MEDS: KCL 20 MEQ TAB (K-DUR) PO SCH (05:11)
[2019-03-12] MEDS: HYDROCORTISONE 100 MG/2 ML (Solu-CORTEF) VIAL IV SCH ×3 (05:18→17:39)
[2019-03-12] MEDS: D5 LR IV SOLUTION 1,000 ML IV SCH (05:18)
[2019-03-12] MEDS: inSUlin ASPART (NovoLOG) 1 UNIT/0.01 ML (CHARGE PER UNIT) SQ SCH ×5 (05:18→21:19)
[2019-03-12] MEDS: PROPOFOL DRIP (ICU) 100 ML IV SCH ×4 (05:18→19:57)
[2019-03-12] MEDS: AA 4.25% W/LYTES IN D5W IV SOL 1,000 ML IV SCH ×3 (06:26→19:36)
[2019-03-12] MEDS: RT-FLUTICASONE 220 MCG (FLOVENT) PER PUFF INH SCH ×2 (06:34→18:23)
[2019-03-12] MEDS: RT-IPRATROPIUM (ATROVENT) 0.5MG/2.5ML AMP IH SCH ×4 (06:35→18:23)
--- NOTE | 2019-03-12 07:19 | Diagnostic Imaging Report ---
INDICATION: Dyspnea. COMPARISON: 03/11/2019 FINDINGS: Single frontal radiographic view of the chest was obtained and demonstrates indwelling endotracheal tube with tip at the clavicular heads. Gastric tube extends inferiorly beyond the [id number]. Right upper extremity PICC line is seen with tip at the cavoatrial junction. Lungs continue to show low inspiratory volumes with asymmetric elevation of the right hemidiaphragm as well as patchy and confluent bibasilar airspace disease. There are probable mild bibasilar effusions as well. There is no pneumothorax. Cardiac silhouette is mildly prominent. Pulmonary vasculature appears slightly more prominent on today's exam when compared to previous study. IMPRESSION: 1. Cardiomegaly with findings concerning for increasing pulmonary vascular congestion. 2. Persistent low lung volumes with probable bibasilar effusions and associated atelectasis and/or infiltrate. 3. Lines and tubes as above. Dictated by: Dictated on workstation # [id number]
--- NOTE | 2019-03-12 07:47 | Cardiology Progress Note ---
Subjective Date Seen by Provider: Mar 12, 2019 Time Seen by Provider: 07:43 Subjective/Events-last exam Patient is sedated and intubated Review of Systems General: Other (Unable to provide ROS) Focused Exam Lactate Level 03/10/19 16:50: Lactic Acid Level 1.40 Time of Focused Exam: 22:00 Objective-Cardiology Exam Last Set of Vital Signs Vital Signs 03/12/19 03/12/19 03/12/19 03/12/19 05:18 06:00 06:35 06:44 Temp 36.85239 Pulse 60 Resp 15 B/P (MAP) 167/47 (87) Pulse Ox 97 O2 Delivery Mechanical Ventilator O2 Flow Rate 40.00 FiO2 40 Capillary Refill : Less Than 3 SecondsGreater Than 3 Seconds I&O Intake and Output 03/12/19 00:00 Intake Total 2725 ml Output Total 3915 ml Balance -1190 ml Intake Oral 0 ml IV Total 2725 ml Output Urine Total 1575 ml Drainage Total 2340 ml General: Alert, Cooperative, Moderate Distress, Other (Sit 8 at antegrade) HEENT: Atraumatic Neck: Supple, No Thyromegaly Lungs: Normal Air Movement, Other (Bilateral rhonchi) Heart: Regular Rate, Normal S1, Normal S2, No Murmurs Abdomen: No Masses, Other (Diminished bowel sounds) Extremities: No Clubbing, No Cyanosis, Normal Pulses, No Tenderness/Swelling, Other (Bilateral edema) Skin: No Rashes Neuro: Normal Speech, Other (Sedated and intubated) Psych/Mental Status: Mental Status NL, Other (Sedated and intubated) Results Lab Laboratory Tests 03/12/19 03:00 A/P-Cardiology Admission Diagnosis Acute respiratory failure Paroxysmal atrial fibrillation Coronary artery disease Hypertension Assessment/Plan Sepsis, multiple abdominal surgery, had bowel resection and diverting ileostomy, receiving antibiotics Respiratory failure, vent dependent, sedated Labile blood pressure on Cardene drip, continue to monitor Anemia, multiple blood transfusion, continue to monitor Fungemia, sepsis, managed by primary care team Paroxysmal atrial fibrillation, currently in sinus rhythm, continue to monitor S/p small bowel resection secondary to perf at anastomosis site, had multiple surgery for recurrent perforation, had SB resection with diverting ileostomy and lavage on 03/11, managed by surgical team Coronary artery disease, history of cardiac catheterization in July 2012 showing 50 percent midright coronary artery stenosis, nonobstructive disease, had a borderline disease in the midright coronary artery. Most recent cardiac catheterization done April 2018 revealed mild ectasia in the proximal LAD with mild disease in the mid LAD, small vessel disease distally, mild ectasia in the proximal circumflex artery and 40-50 percent stenosis in the mid right coronary artery, nonobstructive disease, continue to monitor History of colon cancer, history of colon resection and colostomy in the remote past has been in remission and followed by Dr. Branham History of hyperlipidemia Carotid artery stenosis , continue to monitor as outpatient. Syncope, had a syncopal episode in October 2015 probably due to dehydration. Was in renal failure. Improved. History of thyroid nodules noted on ultrasound, followed by Dr. Branham and Dr. Simmons Diabetes mellitus, followed and managed by primary care physician. History of colon cancer, history of colostomy. Currently in remission. Followed by Dr. Branham Family history of coronary artery disease. Obstructive sleep apnea, intolerance to CPAP History of appendectomy, kidney stones, hysterectomy. Breast biopsy. Clinical Quality Measures DVT/VTE Risk/Contraindication: Risk Factor Score Per Nursin RFS Level Per Nursing on Admit: 4+=Very High NAYA URIAS MD Mar 12, 2019 07:47 POS
--- NOTE | 2019-03-12 07:57 | Physical Therapy Progress Note ---
Therapy Progress Note Patient remains sedated and on mechanical ventilator. PT will continue to monitor patient status. CHIDI AMAYA PT Mar 12, 2019 07:57 POS
[2019-03-12] MEDS: PANTOPRAZOLE 40 MG (PROTONIX) VIAL IV SCH (08:27)
--- NOTE | 2019-03-12 08:32 | Progress Note - Surgery ---
BECCA CHANDLER MED STUDENT 03/12/19 0832: Subjective Date Seen by a Provider: Mar 12, 2019 Time Seen by a Provider: 07:45 Subjective/Events-last exam Ms. Samson was not awake when I saw her, she is on propofol, I was not able to obtain a ROS. Her family was not there, spoke to nursing about how she is doing. Nursing reports that since yesterday she was started on a banana bag and clinimix by Dr. Martinez, and she has been on and off cardene during the night due to her blood pressure. Her woundvac had drained 2L of salmon color drainage, and her MARKUS tubes had drained 15-20mL each. Tube 1 and 3 drained yellow fluid, tube 2 was serosanguineous. MARKUS tube 3 was not holding its pressure well, partially under ileostomy placed yesterday. Focused Exam Lactate Level 03/10/19 16:50: Lactic Acid Level 1.40 Time of Focused Exam: 22:00 Objective Exam Vital Signs Date Time Temp Pulse Resp B/P (MAP) Pulse Ox O2 Delivery O2 Flow Rate FiO2 03/12/19 06:44 Mechanical Ventilator 03/12/19 06:35 60 15 97 40 03/12/19 06:00 60 14 167/47 (87) 99 Mechanical Ventilator 40.00 03/12/19 05:18 36.55677 58 13 140/42 99 Mechanical Ventilator 40.00 03/12/19 05:00 61 12 176/48 (90) 99 Mechanical Ventilator 40.00 03/12/19 04:00 99 Mechanical Ventilator 40 03/12/19 04:00 58 13 140/42 (74) 98 Mechanical Ventilator 40.00 03/12/19 03:21 36.1 Mechanical Ventilator 40.00 03/12/19 03:00 64 172/45 (87) 98 Mechanical Ventilator 30.00 03/12/19 02:00 58 157/44 (81) 97 Mechanical Ventilator 30.00 03/12/19 01:51 60 15 99 40 03/12/19 01:00 64 160/44 (82) 100 Mechanical Ventilator 40.00 03/12/19 01:00 65 03/12/19 00:00 67 183/47 (92) 100 Mechanical Ventilator 40.00 03/12/19 00:00 100 Mechanical Ventilator 40 03/11/19 23:39 35.8 Mechanical Ventilator 40.00 03/11/19 23:31 35.36418 73 24 130/46 100 Mechanical Ventilator 50.00 03/11/19 23:00 70 171/47 (88) 100 Mechanical Ventilator 40.00 03/11/19 22:00 73 182/49 (93) 100 Mechanical Ventilator 40.00 03/11/19 21:58 73 24 100 50 03/11/19 21:00 73 168/45 (86) 100 Mechanical Ventilator 40.00 03/11/19 20:00 78 181/46 (91) 100 Mechanical Ventilator 50.00 03/11/19 20:00 100 Mechanical Ventilator 50 03/11/19 19:27 35.8 77 12 165/42 (83) 100 Mechanical Ventilator 50.00 03/11/19 19:00 82 15 163/41 (81) 100 Mechanical Ventilator 50.00 03/11/19 19:00 81 03/11/19 18:00 82 9 171/41 (84) 99 Mechanical Ventilator 50.00 03/11/19 17:57 81 21 99 50 03/11/19 17:45 173/43 03/11/19 17:00 84 13 175/42 (86) 99 Mechanical Ventilator 50.00 03/11/19 16:05 36.3 15 120/70 (87) 96 Mechanical Ventilator 03/11/19 16:05 Mechanical Ventilator 03/11/19 16:00 36.5 27 105/67 (80) 98 Mechanical Ventilator 03/11/19 16:00 98 Mechanical Ventilator 30 03/11/19 16:00 83 23 179/46 (90) 98 Mechanical Ventilator 50.00 03/11/19 15:55 Mechanical Ventilator 03/11/19 15:50 36.5 18 137/52 (80) 97 Mechanical Ventilator 03/11/19 15:45 Mechanical Ventilator 03/11/19 15:40 14 157/64 (95) 97 Mechanical Ventilator 03/11/19 15:30 14 157/64 (95) 98 Mechanical Ventilator 03/11/19 15:30 84 21 248/71 (129) 98 Mechanical Ventilator 50.00 03/11/19 15:30 Mechanical Ventilator 03/11/19 15:23 87 14 97 50 03/11/19 15:20 14 163/68 (99) 96 Mechanical Ventilator 03/11/19 15:13 Mechanical Ventilator 03/11/19 15:13 36.1 14 153/66 (95) 96 Mechanical Ventilator 03/11/19 13:00 58 14 150/60 (90) 95 Mechanical Ventilator 21.00 03/11/19 13:00 58 03/11/19 12:00 98 Mechanical Ventilator 30 03/11/19 12:00 57 14 115/80 (92) 95 Mechanical Ventilator 21.00 03/11/19 11:00 61 13 155/56 (89) 95 Mechanical Ventilator 21.00 03/11/19 10:20 59 14 95 30 03/11/19 10:08 58 116/44 03/11/19 10:00 58 14 148/54 (85) 94 Mechanical Ventilator 21.00 03/11/19 09:00 60 14 138/35 (69) 93 Mechanical Ventilator 21.00 I & O 03/12/19 07:00 Intake Total 2450 ml Output Total 3800 ml Balance -1350 ml Capillary Refill : Less Than 3 SecondsGreater Than 3 Seconds General Appearance: Chronically ill, Obese HEENT: Other (intubated) Neck: Normal Inspection, Supple Respiratory: Lungs Clear, Normal Breath Sounds, No Respiratory Distress, Other (mechanically ventilated) Cardiovascular: Regular Rate, Rhythm, Normal Peripheral Pulses, Systolic Murmur Peripheral Pulses: 2+ Dorsalis Pedis (R), 2+ Left Dors-Pedis (L), 2+ Radial Pulses (R), 2+ Radial Pulses (L) Gastrointestinal: no organomegaly; No distended Extremity: Normal Capillary Refill, Pedal Edema, Swelling (increased compared to yesterday) Neurologic/Psychiatric: No Alert, No Oriented x3; Other (sedated) Skin: Warm/Dry, Pallor Lymphatic: No Adenopathy Results Lab Laboratory Tests 03/11/19 12:26: Glucometer 319H 03/11/19 17:40: Glucometer 232H 03/11/19 23:32: Glucometer 349H 03/12/19 03:00: White Blood Count 7.4, Red Blood Count 3.08L, Hemoglobin 9.3L, Hematocrit 28L, Mean Corpuscular Volume 92, Mean Corpuscular Hemoglobin 30, Mean Corpuscular Hemoglobin Concent 33, Red Cell Distribution Width 17.5H, Platelet Count 178, Mean Platelet Volume 9.9, Neutrophils (%) (Auto) 87H, Lymphocytes (%) (Auto) 4L, Monocytes (%) (Auto) 9, Eosinophils (%) (Auto) 0, Basophils (%) (Auto) 0, Neutrophils # (Auto) 6.4, Lymphocytes # (Auto) 0.3L, Monocytes # (Auto) 0.7, Eosinophils # (Auto) 0.0, Basophils # (Auto) 0.0, Blood Gas Puncture Site RIGHT RADIAL, Blood Gas Patient Temperature 36.1, Arterial Blood pH 7.42, Arterial Blood Partial Pressure CO2 41, Arterial Blood Partial Pressure O2 58L, Arterial Blood HCO3 26, Arterial Blood Total CO2 27.4, Arterial Blood Oxygen Saturation 91L, Arterial Blood Base Excess 1.8, Kenny Test ART LINE, Blood Gas Ventilator Setting YES, Blood Gas Inspired Oxygen 30%, Sodium Level 142, Potassium Level 3.9, Chloride Level 111H, Carbon Dioxide Level 22, Anion Gap 9, Blood Urea Nitrogen 38H, Creatinine 0.98, Estimat Glomerular Filtration Rate 55, BUN/Creatinine Ratio 39, Glucose Level 316H, Calcium Level 7.1L, Phosphorus Level 3.6, Magnesium Level 2.0 Microbiology 03/07/19 Blood Culture - Preliminary, Resulted No growth 03/08/19 Gram Stain - Final, Complete 03/08/19 Sputum Culture - Final, Complete No growth 02/24/19 Urine Culture - Final, Complete NO GROWTH 03/05/19 Gram Stain - Final, Complete 03/05/19 Anaerobic Culture - Final, Complete No anaerobes isolated 03/05/19 Surgical Culture - Final, Complete Marilia species Assessment/Plan Assessment/Plan Assessment/Plan Small bowel perforation S/P multiple attempts at closure Pt is going back to OR today for planned washout and removal of Abthera. Unfortunately it looks like she may have leakage from intestine; she has a very poor nutrition status and her abdomen had a lot of fecal contamination - both of which make it very hard for her to heal, most likely the reason she keeps having failure at staple line. She may finally have to have another ileostomy creation on the left side, unfortunately that side (the peritoneum) looks horrible with film of fecal contamination and necrosis. Plan for abthera removal and washout on Monday. Continue with pain management and nutrition, management of chronic conditions. Clinical Quality Measures DVT/VTE Risk/Contraindication: Risk Factor Score Per Nursin RFS Level Per Nursing on Admit: 4+=Very High MISSY MONTEJO DO 03/12/19 1024: Subjective Time Seen by a Provider: 09:07 Subjective/Events-last exam Pt seen and examined, sedated on vent. Assessment/Plan Assessment/Plan Assessment/Plan Pt had Diverting Ileostomy, with ABthera placement. The plan is to go back tomorrow for final washout hopefully and then close her abdomen and get her off vent. She will need TPN for 8-12 weeks and may need a Mignon-cath to facilitate that. Supervisory-Addendum Brief Verification & Attestation Participated in pt care: history, MDM, physical Personally performed: exam, history, MDM Care discussed with: Medical Student Procedures: n/a Verification and Attestation of Medical Student E/M Service A medical student performed and documented this service in my presence. I reviewed and verified all information documented by the medical student and made modifications to such information, when appropriate. I personally performed the physical exam and medical decision making. Missy Montejo, Mar 12, 2019,10:23 BECCA CHANDLER MED STUDENT Mar 12, 2019 08:32 MISSY JAMES DO Mar 12, 2019 10:24 POS
[2019-03-12] MEDS: ANIDULAFUNGIN INJECTION 100 MG in NS (IVPB) 100 ML IV SCH (08:53)
[2019-03-12] MEDS: THIAMINE INJECTION 100 MG, FOLIC ACID INJECTION 1 MG, VITAMIN MULTI INJECTION 10 ML, MA... IV SCH ×5 (09:03)
--- NOTE | 2019-03-12 09:41 | Progress Note - Hospitalist ---
Subjective HPI/CC On Admission Date Seen by Provider: Mar 12, 2019 Time Seen by Provider: 09:35 abdominal pain Subjective/Events-last exam Pt remains intuabted and sedated. Discussed with RN. Output from wound vac slowing and serosanguineous. Discussed with Dr Willett. Plan to start TPN after picc line placement and return to OR tomorrow for hopefully final surgery. Focused Exam Lactate Level 03/10/19 16:50: Lactic Acid Level 1.40 Time of Focused Exam: 22:00 Objective Exam Vital Signs Vital Signs Date Time Temp Pulse Resp B/P (MAP) Pulse Ox O2 Delivery O2 Flow Rate FiO2 03/12/19 09:26 129/44 03/12/19 08:00 96 Mechanical Ventilator 40 03/12/19 07:00 59 03/12/19 06:35 15 03/12/19 06:00 40.00 03/12/19 05:18 36.32682 Capillary Refill : Less Than 3 SecondsGreater Than 3 Seconds General Appearance: Chronically ill, Other (sedated on vent) Respiratory: Lungs Clear, No Respiratory Distress Cardiovascular: Regular Rate, Rhythm, No Murmur Gastrointestinal: Other (wound vac in place, ostomies noted) Extremity: Pedal Edema, Swelling Neurologic/Psychiatric: Other (sedated, appears comfortable) Results/Procedures Lab Laboratory Tests 03/12/19 03:00 Patient resulted labs reviewed. Imaging: Reviewed Imaging Report Assessment/Plan Assessment and Plan Assess & Plan/Chief Complaint Perforated abdominal viscus -Management per primary -Continue meropenem and eraxis -Multiple abdominal surgeries this admission- plan to return again tomorrow Lactic acidosis, resolved Shock -Continue pressors as needed- now off -continue stress dose steroids Acute kidney injury- resolved Hypernatremia, resolved -Cr improving, urine output increased with MAP >65 -Monitor output closely- at 0.69ml/kg/hr yesterday Severe protein-calorie malnutrition -Surgery okays for TPN today, picc line ordered -Prealbumin <3 Fungemia -Continue Eraxis -repeat blood cultures negative Acute hypoxemic respiratory failure -Currently intubated -Pulmonology following Postoperative anemia -Hgb improved post-transfusion, stable -Continue to monitor Hypertension -Now off cardene Paroxysmal atrial fibrillation -Cardiology following T2DM - Sliding scale insulin - On sliding scale, D5 decreased If remains high with lower dose d5 will ass levemir Critical illness myopathy -PT/OT -Will require acute rehab vs LTAC vs SNF on discharge Critical Care Critically Ill Patient Diagnosis/Problems Diagnosis/Problems (1) Shock Status: Acute (2) Acute respiratory failure Status: Acute Qualifiers: Respiratory failure complication: unspecified whether with hypoxia or hypercapnia Qualified Codes: J96.00 - Acute respiratory failure, unspecified whether with hypoxia or hypercapnia (3) Fungemia Status: Acute (4) Atrial fibrillation with RVR (5) Perforated abdominal viscus Status: Acute (6) Acute renal failure Status: Acute Qualifiers: Acute renal failure type: with acute tubular necrosis Qualified Codes: N17.0 - Acute kidney failure with tubular necrosis (7) Hypovolemia dehydration Status: Acute (8) Bilateral pleural effusion Status: Acute (9) IDDM (insulin dependent diabetes mellitus) Status: Chronic (10) Lactic acidosis Status: Acute (11) UTI (urinary tract infection) Status: Resolved Qualifiers: Urinary tract infection type: acute cystitis Hematuria presence: without hematuria Qualified Codes: N30.00 - Acute cystitis without hematuria Resolution Date/Time: 02/27/19 @ 08:40 Clinical Quality Measures DVT/VTE Risk/Contraindication: Risk Factor Score Per Nursin RFS Level Per Nursing on Admit: 4+=Very High ABIGAIL PORTER MD Mar 12, 2019 09:41 POS
[2019-03-12] MEDS: fentaNYL INJECTION 1,250 MCG in NS (IVPB) 250 ML IV SCH (10:24)
--- NOTE | 2019-03-12 13:00 | Occ Therapy Progress Note ---
Therapy Progress Note Pt intubated on this date. Nursing [facility] surgery tomorrow, will see check on following date to determine pt's ability to participate in skilled therapy sessions. YANIRA FREEMAN OTR Mar 12, 2019 12:59 POS
--- NOTE | 2019-03-12 13:11 | Anesthesia-General Post-Op ---
General Patient Condition Cardiovascular: Satisfactory Nausea/Vomiting: Absent Pain: Controlled Post Op Complications Complications None Follow Up Care/Instructions Patient Instructions None needed. Anesthesia/Patient Condition Patient Condition No change in status. Patient remains on ventilator. Plan is to bring patient b ack to the OR tomorrow. D/C home per [facility] Criteria: VAIBHAV Darby CRNA Mar 12, 2019 13:11 POS
--- NOTE | 2019-03-12 17:15 | NUR ---
Follow up visit with pt's daughter. Offered continued emotional support. Daughter went to work today, states she hopes to see her mother resting well.
[2019-03-13] VITALS (27 sets, daily range): BP systolic 127–184; BP diastolic 36–53
[2019-03-13] MEDS: D5 LR IV SOLUTION 1,000 ML IV SCH ×3 (00:27→22:12)
[2019-03-13] MEDS: HYDROCORTISONE 100 MG/2 ML (Solu-CORTEF) VIAL IV SCH ×4 (00:27→18:01)
[2019-03-13] MEDS: inSUlin ASPART (NovoLOG) 1 UNIT/0.01 ML (CHARGE PER UNIT) SQ SCH ×6 (00:34→20:23)
[2019-03-13] MEDS: MEROPENEM 500 MG/SWFI 10 ML IV PUSH IV SCH ×6 (01:43→18:01)
[2019-03-13] MEDS: fentaNYL INJECTION 1,250 MCG in NS (IVPB) 250 ML IV SCH ×2 (02:02→13:57)
[2019-03-13 03:20] LABS: BASOPHILS % (AUTO) 0 % (0-10); EOSINOPHILS % (AUTO) 0 % (0-10); HEMATOCRIT 27 % (35-52); HEMOGLOBIN 8.6 G/DL (11.5-16.0); LYMPHOCYTES # (AUTO) 0.4 X 10^3 (1.0-4.0); LYMPHOCYTES % (AUTO) 5 % (12-44); MEAN CORPUSCULAR HEMOGLOBIN 30 PG (25-34); MEAN CORPUSCULAR HGB CONC 32 G/DL (32-36); MEAN CORPUSCULAR VOLUME 93 FL (80-99); MEAN PLATELET VOLUME 10.2 FL (7.4-10.4); MONOCYTES # (AUTO) 0.5 X 10^3 (0.0-1.0); MONOCYTES % (AUTO) 7 % (0-12); NEUTROPHILS # (AUTO) 6.6 X 10^3 (1.8-7.8); NEUTROPHILS % (AUTO) 89 % (42-75); PLATELET COUNT 142 10^3/uL (130-400); RED CELL DISTRIBUTION WIDTH 16.7 % (10.0-14.5); WHITE BLOOD COUNT 7.4 10^3/uL (4.3-11.0)
[2019-03-13 03:22] LABS: ABG BASE EXCESS 1.1 MMOL/L (-2.5-2.5); ABG OXYGEN SATURATION 90 % (94-100); ABG PCO2 45 MMHG (35-45); ABG PH 7.38 (7.37-7.43); ABG PO2 56 MMHG (79-93); ABG TCO2 27.4 MMOL/L (21.0-31.0)
[2019-03-13 03:24] LABS: ALLENS TEST ARTLINE; INSPIRED O2 28%; VENTILATOR YES
[2019-03-13] MEDS: AA 4.25% W/LYTES IN D5W IV SOL 1,000 ML IV SCH ×3 (03:26→20:55)
[2019-03-13] MEDS: PROPOFOL DRIP (ICU) 100 ML IV SCH ×4 (03:26→22:12)
--- NOTE | 2019-03-13 03:36 | Pulmonary Progress Note ---
LILA VAUGHN A MEDICAL STUDENT 03/13/19 0336: Subjective Date Seen by a Provider: Mar 13, 2019 Time Seen by a Provider: 03:31 Subjective/Events-last exam Pt remained stable over night with no new events, Cardizem still held, pt remains intubated and sedated Sepsis Event Evaluation Height, Weight, BMI Height: 5'5.00" Weight: 160lbs. 0.0oz. 72.559974om; 21.79 BMI Method:Stated Focused Exam Lactate Level 03/10/19 16:50: Lactic Acid Level 1.40 Time of Focused Exam: 22:00 Exam Exam Vital Signs Date Time Temp Pulse Resp B/P (MAP) Pulse Ox O2 Delivery O2 Flow Rate FiO2 03/13/19 02:15 58 14 98 35 03/13/19 00:00 96 Mechanical Ventilator 35 03/12/19 23:00 61 12 162/48 (86) 97 Mechanical Ventilator 30.00 03/12/19 22:33 64 11 170/51 (90) 96 Mechanical Ventilator 30.00 03/12/19 22:00 54 14 130/39 (69) 97 Mechanical Ventilator 35.00 03/12/19 21:00 55 14 127/40 (69) 96 Mechanical Ventilator 35.00 03/12/19 20:00 56 13 142/43 (76) 97 Mechanical Ventilator 35.00 03/12/19 20:00 96 Mechanical Ventilator 35 03/12/19 19:57 36.31886 54 12 119/39 97 Mechanical Ventilator 35.00 03/12/19 19:33 36.1 54 12 119/39 (65) 97 Mechanical Ventilator 35.00 03/12/19 19:00 54 14 118/38 (64) 96 Mechanical Ventilator 35.00 03/12/19 19:00 54 03/12/19 18:23 56 14 97 35 03/12/19 18:00 62 13 167/48 (87) 96 Mechanical Ventilator 40.00 03/12/19 17:00 56 14 118/36 (63) 94 Mechanical Ventilator 40.00 03/12/19 16:00 61 14 123/37 (65) 94 Mechanical Ventilator 40.00 03/12/19 16:00 96 Mechanical Ventilator 40 03/12/19 15:00 60 13 111/36 (61) 95 Mechanical Ventilator 40.00 03/12/19 14:27 61 14 94 40 03/12/19 14:00 61 14 138/51 (80) 93 Mechanical Ventilator 40.00 03/12/19 13:34 141/43 03/12/19 13:00 65 12 158/45 (82) 94 Mechanical Ventilator 40.00 03/12/19 13:00 64 03/12/19 12:00 62 12 166/46 (86) 97 Mechanical Ventilator 40.00 03/12/19 12:00 96 Mechanical Ventilator 40 03/12/19 12:00 36.0 03/12/19 11:00 65 11 168/47 (87) 94 Mechanical Ventilator 40.00 03/12/19 10:31 62 14 95 40 03/12/19 10:00 62 13 131/44 (73) 96 Mechanical Ventilator 40.00 03/12/19 09:26 129/44 03/12/19 09:00 63 12 133/44 (73) 96 Mechanical Ventilator 40.00 03/12/19 08:00 96 Mechanical Ventilator 40 03/12/19 08:00 61 13 153/46 (81) 95 Mechanical Ventilator 40.00 03/12/19 08:00 36.3 03/12/19 07:00 59 03/12/19 07:00 59 12 172/47 (88) 97 Mechanical Ventilator 40.00 03/12/19 06:44 Mechanical Ventilator 03/12/19 06:35 60 15 97 40 03/12/19 06:00 60 14 167/47 (87) 99 Mechanical Ventilator 40.00 03/12/19 05:18 36.17840 58 13 140/42 99 Mechanical Ventilator 40.00 03/12/19 05:00 61 12 176/48 (90) 99 Mechanical Ventilator 40.00 03/12/19 04:00 99 Mechanical Ventilator 40 03/12/19 04:00 58 13 140/42 (74) 98 Mechanical Ventilator 40.00 I & O 03/13/19 07:00 Intake Total 515 ml Output Total 3385 ml Balance -2870 ml Height & Weight Height: 5'5.00" Weight: 160lbs. 0.0oz. 72.250895cr; 21.79 BMI Method:Stated General Appearance: Chronically ill, Other (sedated on vent) HEENT: Other (intubated) Neck: Normal Inspection, Supple Respiratory: Lungs Clear, No Respiratory Distress Cardiovascular: Regular Rate, Rhythm, No Murmur Capillary Refill: Greater Than 3 Seconds Peripheral Pulses: 2+ Dorsalis Pedis (R), 2+ Left Dors-Pedis (L), 2+ Radial Pulses (R), 2+ Radial Pulses (L) Gastrointestinal: no organomegaly; No distended Extremity: Pedal Edema, Swelling Neurologic/Psychiatric: Other (sedated, appears comfortable) Skin: Warm/Dry, Pallor Lymphatic: No Adenopathy Results Lab Laboratory Tests 03/12/19 03:00 03/13/19 03:10 Assessment/Plan Assessment/Plan Acute respiratory failure with hypoxia -Plan is to back to surgery today -Will leave patient on Vent until ok with surgery to wean hypotension and episodes of bradycardia with episode of hypertension -Levophed is off -Cardene has been off since yesterday -Currently DLR at 150 - Clinimax running at 125cc/hr -D5LR running at50cc/hr -IN: 1615 Out: 4395 (975 urine, 3420 drain) Net: -2780 Lines: Raquel - 200ml/hr propofol 12.36ml/hr LR 150ml/Hr D5LR 50ml/hr Fentanyl - 22ml/hr Anidulafuryin - 85ml/hr clinimax 125ml/hr Hyperglycemia -Change to Q4 accu checks -pt's accu checks running in the low 200's -Continue D5 secondary to pt's severe malnutrition state. Acute worsening anemia s/p 4 units PRBC -Monitor -PT Hgb stable at 9.3 today recurrent perforated abdominal viscus x 3 s/p repeat surgeries with resections -Cont Merrem and Eraxis -status post surgery yesterday with small bowel resection and diverting ileostomy and WoundVac placement Protein jorge malnutrition with low albumin and anasarca -Dr. Willett does not want TPN or OG for tube feeds. Plan is for repeat surgery today. - prealbumin - <3 -Clinimax 125cc/hr -D5LR to 50cc/hr -Pt has had very little if any PO intake for at least 2wks she was admitted on 02/24. -Pt currently on D5 to LR and continue Banana bag daily -Start TPN, OK with surgery -Will monitor for refeeding syndrome . Fungemia secondary to abdominal perforation -Repeat BC are negative -Repeat BC collected 10/31 -Eraxis Acute renal failure with anasarca -IVF and continue to monitor -pt has decreased urine output with dark concentrated urine -- Will give liter bolus of LR. Grade 1 diastolic dysfunction -Monitor Afib - currently sinus DM II Debility -PT/OT Overall prognosis is guarded to poor. Pt is still currently a full code MIKA MARTINEZ DO 03/13/19 0455: Subjective Time Seen by a Provider: 04:50 Exam Exam General Appearance: Chronically ill, Other (sedated on vent) HEENT: Other (intubated) Neck: Normal Inspection, Supple Respiratory: No Respiratory Distress, Decreased Breath Sounds Cardiovascular: Regular Rate, Rhythm, No Murmur Extremity: Pedal Edema, Swelling Skin: Warm/Dry Lymphatic: No Adenopathy Assessment/Plan Assessment/Plan Acute respiratory failure with hypoxia -Plan is to back to surgery today -Will leave patient on Vent until ok with surgery to wean hypotension and episodes of bradycardia with episode of hypertension -Levophed is off -Cardene has been off since yesterday -Currently DLR at 150 - Clinimax running at 125cc/hr -D5LR running at50cc/hr -- Increase to 125 -IN: 1615 Out: 4395 (975 urine, 3420 drain) Net: -2780 Lines: Raquel - 200ml/hr propofol 12.36ml/hr LR 150ml/Hr D5LR 50ml/hr Fentanyl - 22ml/hr Anidulafuryin - 85ml/hr clinimax 125ml/hr Hyperglycemia -Change to Q4 accu checks -pt's accu checks running in the low 200's -Continue D5 secondary to pt's severe malnutrition state. Acute worsening anemia s/p 4 units PRBC -Monitor -PT Hgb stable at 9.3 today recurrent perforated abdominal viscus x 3 s/p repeat surgeries with resections -Cont Merrem and Eraxis -status post surgery yesterday with small bowel resection and diverting ileostomy and WoundVac placement Protein jorge malnutrition with low albumin and anasarca -Dr. Willett does not want TPN or OG for tube feeds. Plan is for repeat kiko alexis today. - prealbumin - <3 -Clinimax 125cc/hr -D5LR to 50cc/hr -Pt has had very little if any PO intake for at least 2wks she was admitted on 02/24. -Pt currently on D5 to LR and continue Banana bag daily -Start TPN if OK with surgery -Will monitor for refeeding syndrome . Fungemia secondary to abdominal perforation -Repeat BC are negative -Repeat BC collected 03/07 -Eraxis Acute renal failure with anasarca -IVF and continue to monitor -pt has decreased urine output with dark concentrated urine -- Will give liter bolus of LR. Grade 1 diastolic dysfunction -Monitor Afib - currently sinus DM II Debility -PT/OT Overall prognosis is guarded to poor. Pt is still currently a full code Supervisory-Addendum Brief Verification & Attestation Participated in pt care: history Personally performed: exam Care discussed with: Medical Student Procedures: n/a Verification and Attestation of Medical Student E/M Service A medical student performed and documented this service in my presence. I reviewed and verified all information documented by the medical student and made modifications to such information, when appropriate. I personally performed the physical exam and medical decision making. Mika Martinez, Mar 13, 2019,11:09 LILA VAUGHN MEDICAL STUDENT Mar 13, 2019 03:36 MIKA VERDUGO DO Mar 13, 2019 04:55 POS
[2019-03-13 03:39] LABS: BUN/CREATININE RATIO 49; CALCIUM 7.1 MG/DL (8.5-10.1); CARBON DIOXIDE 22 MMOL/L (21-32); CHLORIDE 110 MMOL/L (98-107); CREATININE SERUM 0.81 MG/DL (0.60-1.30); GFR ESTIMATED > 60; GLUCOSE 216 MG/DL (70-105); MAGNESIUM 2.1 MG/DL (1.6-2.4); PHOSPHORUS 4.2 MG/DL (2.3-4.7); POTASSIUM 4.3 MMOL/L (3.6-5.0); SODIUM 141 MMOL/L (135-145)
[2019-03-13] MEDS: POTASSIUM CL 10MEQ/50ML IVPB 50 ML IV SCH (04:15)
[2019-03-13] MEDS: KCL 20 MEQ TAB (K-DUR) PO SCH (04:15)
[2019-03-13] MEDS: MAGNESIUM 1 GM/100 ML IVPB 100 ML IV SCH (04:15)
[2019-03-13] MEDS ORDERED: LACTATED RINGERS 1,000 ML IV SCH (05:00)
--- NOTE | 2019-03-13 05:40 | Diagnostic Imaging Report ---
Portable semierect AP chest at 0346 hours. INDICATION: Respiratory distress. FINDINGS: The appearance of the chest has improved since the prior exam of 03/12/2019 as the left lung base does seem better aerated. There is still some residual pneumonia/atelectasis and fluid in the left lung base. The central pulmonary vascularity is also less prominent than noted on the prior exam. The right mid lung and right lower lobe remain obscured by atelectasis/infiltrate and fluid. The heart is enlarged but stable. The mediastinum is not widened. The osseous structures are intact. IMPRESSION: The appearance of the chest has improved as the left lung base does appear better aerated and the pulmonary congestion noted previously has diminished. A follow-up exam would be recommended for continued evaluation. Dictated by: Dictated on workstation # [id number]
[2019-03-13] MEDS: RT-IPRATROPIUM (ATROVENT) 0.5MG/2.5ML AMP IH SCH ×4 (06:06→19:57)
[2019-03-13] MEDS: RT-FLUTICASONE 220 MCG (FLOVENT) PER PUFF INH SCH ×2 (06:07→19:57)
[2019-03-13 06:51] LABS: LYMPHOCYTES % (MANUAL) 3 %; MONOCYTES % (MANUAL) 6 %; NEUTROPHILS % (MANUAL) 91 %
--- NOTE | 2019-03-13 07:27 | Progress Note - Surgery ---
BECCA CHANDLER MED STUDENT 03/13/19 0727: Subjective Date Seen by a Provider: Mar 13, 2019 Time Seen by a Provider: 07:10 Subjective/Events-last exam Ms. Samson is intubated and sedated. Nursing reports she was started on 1L bolus LR overnight. Nursing reports 450 mL of urine output, 1000 mL drainage from woundvac, 500 mL drainage total from MARKUS tubes. All drainage was serosanguinous. CXR showed improved L lung base transudates, diminished pulmonary congestion. Focused Exam Lactate Level 03/10/19 16:50: Lactic Acid Level 1.40 Time of Focused Exam: 22:00 Objective Exam Vital Signs Date Time Temp Pulse Resp B/P (MAP) Pulse Ox O2 Delivery O2 Flow Rate FiO2 03/13/19 06:06 60 14 98 28 03/13/19 06:00 57 12 135/43 (73) 98 Mechanical Ventilator 28.00 03/13/19 05:00 59 12 169/46 (87) 97 Mechanical Ventilator 28.00 03/13/19 04:00 96 Mechanical Ventilator 28 03/13/19 04:00 60 13 176/49 (91) 96 Mechanical Ventilator 28.00 03/13/19 03:26 36.76213 58 14 162/48 98 Mechanical Ventilator 30.00 03/13/19 03:00 55 13 127/43 (71) 96 Mechanical Ventilator 28.00 03/13/19 02:17 56 14 151/46 (81) 97 Mechanical Ventilator 28.00 03/13/19 02:15 58 14 98 35 03/13/19 02:00 58 12 173/49 (90) 97 Mechanical Ventilator 30.00 03/13/19 01:00 63 11 182/53 (96) 97 Mechanical Ventilator 30.00 03/13/19 01:00 63 03/13/19 00:00 58 14 136/43 (74) 97 Mechanical Ventilator 30.00 03/13/19 00:00 96 Mechanical Ventilator 35 03/12/19 23:00 61 12 162/48 (86) 97 Mechanical Ventilator 30.00 03/12/19 22:33 64 11 170/51 (90) 96 Mechanical Ventilator 30.00 03/12/19 22:00 54 14 130/39 (69) 97 Mechanical Ventilator 35.00 03/12/19 21:00 55 14 127/40 (69) 96 Mechanical Ventilator 35.00 03/12/19 20:00 56 13 142/43 (76) 97 Mechanical Ventilator 35.00 03/12/19 20:00 96 Mechanical Ventilator 35 03/12/19 19:57 36.36555 54 12 119/39 97 Mechanical Ventilator 35.00 03/12/19 19:33 36.1 54 12 119/39 (65) 97 Mechanical Ventilator 35.00 03/12/19 19:00 54 14 118/38 (64) 96 Mechanical Ventilator 35.00 03/12/19 19:00 54 03/12/19 18:23 56 14 97 35 03/12/19 18:00 62 13 167/48 (87) 96 Mechanical Ventilator 40.00 03/12/19 17:00 56 14 118/36 (63) 94 Mechanical Ventilator 40.00 03/12/19 16:00 61 14 123/37 (65) 94 Mechanical Ventilator 40.00 03/12/19 16:00 96 Mechanical Ventilator 40 03/12/19 15:00 60 13 111/36 (61) 95 Mechanical Ventilator 40.00 03/12/19 14:27 61 14 94 40 03/12/19 14:00 61 14 138/51 (80) 93 Mechanical Ventilator 40.00 03/12/19 13:34 141/43 03/12/19 13:00 65 12 158/45 (82) 94 Mechanical Ventilator 40.00 03/12/19 13:00 64 03/12/19 12:00 62 12 166/46 (86) 97 Mechanical Ventilator 40.00 03/12/19 12:00 96 Mechanical Ventilator 40 03/12/19 12:00 36.0 03/12/19 11:00 65 11 168/47 (87) 94 Mechanical Ventilator 40.00 03/12/19 10:31 62 14 95 40 03/12/19 10:00 62 13 131/44 (73) 96 Mechanical Ventilator 40.00 03/12/19 09:26 129/44 03/12/19 09:00 63 12 133/44 (73) 96 Mechanical Ventilator 40.00 03/12/19 08:00 96 Mechanical Ventilator 40 03/12/19 08:00 61 13 153/46 (81) 95 Mechanical Ventilator 40.00 03/12/19 08:00 36.3 I & O 03/13/19 07:00 Intake Total 515 ml Output Total 4715 ml Balance -4200 ml Capillary Refill : Less Than 3 SecondsGreater Than 3 Seconds General Appearance: Chronically ill, Other (sedated on vent) HEENT: Other (intubated) Neck: Normal Inspection, Supple Respiratory: Lungs Clear, Normal Breath Sounds, No Respiratory Distress, Other (on ventilator) Cardiovascular: Regular Rate, Rhythm, No Murmur, Normal Peripheral Pulses Peripheral Pulses: 2+ Dorsalis Pedis (R), 2+ Left Dors-Pedis (L), 2+ Radial Pulses (R), 2+ Radial Pulses (L) Gastrointestinal: no organomegaly; No abnormal bowel sounds (squealing/suctioning from woundvac) Extremity: Pedal Edema, Swelling Neurologic/Psychiatric: No Alert; Other (sedated, appears comfortable) Skin: Warm/Dry, Pallor Lymphatic: No Adenopathy Results Lab Laboratory Tests 03/12/19 08:18: Glucometer 292H 03/12/19 11:37: Glucometer 225H 03/12/19 16:24: Glucometer 228H 03/12/19 21:15: Glucometer 237H 03/13/19 00:30: Glucometer 214H 03/13/19 03:10: White Blood Count 7.4, Red Blood Count 2.86L, Hemoglobin 8.6L, Hematocrit 27L, Mean Corpuscular Volume 93, Mean Corpuscular Hemoglobin 30, Mean Corpuscular Hemoglobin Concent 32, Red Cell Distribution Width 16.7H, Platelet Count 142, Mean Platelet Volume 10.2, Neutrophils (%) (Auto) 89H, Lymphocytes (%) (Auto) 5L , Monocytes (%) (Auto) 7, Eosinophils (%) (Auto) 0, Basophils (%) (Auto) 0, Neutrophils # (Auto) 6.6, Lymphocytes # (Auto) 0.4L, Monocytes # (Auto) 0.5, Eosinophils # (Auto) 0.0, Basophils # (Auto) 0.0, Neutrophils % (Manual) 91, Lymphocytes % (Manual) 3, Monocytes % (Manual) 6, Blood Gas Puncture Site RIGHT ARTLINE, Blood Gas Patient Temperature 36.0, Arterial Blood pH 7.38, Arterial Blood Partial Pressure CO2 45, Arterial Blood Partial Pressure O2 56L, Arterial Blood HCO3 26, Arterial Blood Total CO2 27.4, Arterial Blood Oxygen Saturation 90L, Arterial Blood Base Excess 1.1, Kenny Test ARTLINE, Blood Gas Ventilator Setting YES, Blood Gas Inspired Oxygen 28%, Sodium Level 141, Potassium Level 4.3, Chloride Level 110H, Carbon Dioxide Level 22, Anion Gap 9, Blood Urea Nitrogen 40H, Creatinine 0.81, Estimat Glomerular Filtration Rate > 60, BUN/Creatinine Ratio 49, Glucose Level 216H, Calcium Level 7.1L, Phosphorus Level 4.2, Magnesium Level 2.1 Microbiology 03/07/19 Blood Culture - Final, Complete No growth 03/08/19 Gram Stain - Final, Complete 03/08/19 Sputum Culture - Final, Complete No growth 02/24/19 Urine Culture - Final, Complete NO GROWTH 03/05/19 Gram Stain - Final, Complete 03/05/19 Anaerobic Culture - Final, Complete No anaerobes isolated 03/05/19 Surgical Culture - Final, Complete Marilia species Assessment/Plan Assessment/Plan Assessment/Plan s/p Diverting ileostomy with ABthera placement Plan today is for final washout, closing abdomen, and to have her placed on TPN for 8-12 weeks. May need a Mignon-cath. Clinical Quality Measures DVT/VTE Risk/Contraindication: Risk Factor Score Per Nursin RFS Level Per Nursing on Admit: 4+=Very High MISSY MONTEJO DO 03/13/19 0832: Subjective Time Seen by a Provider: 08:23 Subjective/Events-last exam Pt seen and examined, off pressors. Objective Exam Gastrointestinal: other (VAC is serous, drains serous, new diverting ileostomy starting to pink up) Assessment/Plan Assessment/Plan Assessment/Plan Will take her back to OR for washout and hopefully abdomen closure today, pt appears to be doing better. Supervisory-Addendum Brief Verification & Attestation Participated in pt care: history, MDM, physical Personally performed: exam, history, MDM Care discussed with: Medical Student Procedures: n/a Verification and Attestation of Medical Student E/M Service A medical student performed and documented this service in my presence. I reviewed and verified all information documented by the medical student and made modifications to such information, when appropriate. I personally performed the physical exam and medical decision making. Missy Montejo Mar 13, 2019,08:32 BECCA CHANDLER MED STUDENT Mar 13, 2019 07:27 MISSY JAMES DO Mar 13, 2019 08:32 POS
[2019-03-13] MEDS: niCARdipine IV 50 MG in NS (IVPB) 230 ML IV SCH ×2 (08:44→17:40)
[2019-03-13] MEDS: PANTOPRAZOLE 40 MG (PROTONIX) VIAL IV SCH (08:44)
--- NOTE | 2019-03-13 08:56 | Cardiology Progress Note ---
Subjective Date Seen by Provider: Mar 13, 2019 Time Seen by Provider: 08:53 Subjective/Events-last exam Patient is sedated and intubated, vitals stable. Review of Systems General: Other (Unable to provide review of systems) Focused Exam Lactate Level 03/10/19 16:50: Lactic Acid Level 1.40 Time of Focused Exam: 22:00 Objective-Cardiology Exam Last Set of Vital Signs Vital Signs 03/13/19 03/13/19 12:00 14:00 Temp 36.4 Pulse 58 Resp 13 B/P (MAP) 176/48 (90) Pulse Ox 97 O2 Delivery Mechanical Ventilator O2 Flow Rate 28.00 Capillary Refill : Less Than 3 SecondsGreater Than 3 Seconds I&O Intake and Output 03/13/19 00:00 Intake Total 1715 ml Output Total 4395 ml Balance -2680 ml IV Total 1715 ml Output Urine Total 975 ml Drainage Total 3420 ml General: Other (sedated and intubated) HEENT: Atraumatic Neck: Supple, No Thyromegaly Lungs: Normal Air Movement, Other (Bilateral rhonchi) Heart: Regular Rate, Normal S1, Normal S2, No Murmurs Abdomen: No Masses, Other (Diminished bowel sounds) Extremities: No Clubbing, No Cyanosis, Normal Pulses, No Tenderness/Swelling, Other (Bilateral edema) Skin: No Rashes Neuro: Other (Sedated and intubated) Psych/Mental Status: Mental Status NL, Other (Sedated and intubated) Results Lab Laboratory Tests 03/13/19 03:10 A/P-Cardiology Admission Diagnosis Acute respiratory failure Paroxysmal atrial fibrillation Coronary artery disease Hypertension Assessment/Plan Sepsis, multiple abdominal surgery, had bowel resection and diverting ileostomy, receiving antibiotics. Respiratory failure, vent dependent, sedated Labile blood pressure, blood pressure controlled at this time. Continue to monitor. Anemia, multiple blood transfusion, continue to monitor Fungemia, sepsis, managed by primary care team Paroxysmal atrial fibrillation, currently in sinus rhythm, continue to monitor S/p small bowel resection secondary to perf at anastomosis site, had multiple surgery for recurrent perforation, had SB resection with diverting ileostomy and lavage on 03/11, managed by surgical team, Planning for OR later this afternoon for possible closure. Coronary artery disease, history of cardiac catheterization in July 2012 showing 50 percent midright coronary artery stenosis, nonobstructive disease, had a borderline disease in the midright coronary artery. Most recent cardiac catheterization done April 2018 revealed mild ectasia in the proximal LAD with mild disease in the mid LAD, small vessel disease distally, mild ectasia in the proximal circumflex artery and 40-50 percent stenosis in the mid right coronary artery, nonobstructive disease, continue to monitor History of colon cancer, history of colon resection and colostomy in the remote past has been in remission and followed by Dr. Branham History of hyperlipidemia Carotid artery stenosis , continue to monitor as outpatient. Syncope, had a syncopal episode in October 2015 probably due to dehydration. Was in renal failure. Improved. History of thyroid nodules noted on ultrasound, followed by Dr. Branham and Dr. Breaux son Diabetes mellitus, followed and managed by primary care physician. History of colon cancer, history of colostomy. Currently in remission. Followed by Dr. Branham Family history of coronary artery disease. Obstructive sleep apnea, intolerance to CPAP History of appendectomy, kidney stones, hysterectomy. Breast biopsy. Patient was seen and evaluated with Natalie, examination performed, management plan was discussed, agree with the current scribed note, I made few changes to the note using Italic font Patient is sedated, heart rate and blood pressure stable Lungs were clear to auscultation Going back for surgery today Continue to monitor blood pressure Clinical Quality Measures DVT/VTE Risk/Contraindication: Risk Factor Score Per Nursin RFS Level Per Nursing on Admit: 4+=Very High Supervisory-Addendum Brief Supervisory Addendum Participated in pt care: history, MDM, physical Personally performed: exam, history, MDM Care discussed with: NATALIE FLANAGAN Mar 13, 2019 08:56 NAYA DUARTE MD Mar 13, 2019 15:24 POS
--- NOTE | 2019-03-13 09:23 | Progress Note - Hospitalist ---
Subjective HPI/CC On Admission Date Seen by Provider: Mar 13, 2019 Time Seen by Provider: 09:10 abdominal pain Subjective/Events-last exam Pt is sedated and intubated. Plan for surgery today. Focused Exam Lactate Level 03/10/19 16:50: Lactic Acid Level 1.40 Time of Focused Exam: 22:00 Objective Exam Vital Signs Vital Signs Date Time Temp Pulse Resp B/P (MAP) Pulse Ox O2 Delivery O2 Flow Rate FiO2 03/13/19 08:00 58 14 143/48 (79) 96 Mechanical Ventilator 28.00 03/13/19 06:06 28 03/13/19 03:26 36.49872 Capillary Refill : Less Than 3 SecondsGreater Than 3 Seconds General Appearance: Chronically ill, Other Respiratory: Decreased Breath Sounds; No Rhonci, No Wheezing; Other (on vent) Cardiovascular: Regular Rate, Rhythm, No Murmur Gastrointestinal: Other (ostomies noted, wound vac in place) Genital/Rectal: Other (hall in place) Extremity: Pedal Edema, Swelling Neurologic/Psychiatric: Other (eadted) Results/Procedures Lab Laboratory Tests 03/13/19 03:10 Patient resulted labs reviewed. Imaging: Reviewed Imaging Report Assessment/Plan Assessment and Plan Assess & Plan/Chief Complaint Perforated abdominal viscus -Management per primary -Continue meropenem and eraxis -Multiple abdominal surgeries this admission- plan to return again tomorrow Lactic acidosis, resolved Shock -Continue pressors as needed- now off -continue stress dose steroids Acute kidney injury- resolved Hypernatremia, resolved -Cr improving, urine output increased with MAP >65 -Monitor output closely- at 0.69ml/kg/hr yesterday Severe protein-calorie malnutrition -Surgery okays for TPN today, picc line ordered -Prealbumin <3 Fungemia -Continue Eraxis -repeat blood cultures negative Acute hypoxemic respiratory failure -Currently intubated -Pulmonology following Postoperative anemia -Hgb improved post-transfusion, stable -Continue to monitor Hypertension -Now off cardene Paroxysmal atrial fibrillation -Cardiology following T2DM - Sliding scale insulin - On sliding scale, D5 decreased If remains high with lower dose d5 will ass levemir Critical illness myopathy -PT/OT -Will require acute rehab vs LTAC vs SNF on discharge Critical Care Critically Ill Patient Diagnosis/Problems Diagnosis/Problems (1) Shock Status: Resolved Resolution Date/Time: 03/13/19 @ 09:27 (2) Acute respiratory failure Status: Acute Qualifiers: Respiratory failure complication: unspecified whether with hypoxia or hypercapnia Qualified Codes: J96.00 - Acute respiratory failure, unspecified whether with hypoxia or hypercapnia (3) Fungemia Status: Acute (4) Atrial fibrillation with RVR (5) Perforated abdominal viscus Status: Acute (6) Acute renal failure Status: Acute Qualifiers: Acute renal failure type: with acute tubular necrosis Qualified Codes: N17.0 - Acute kidney failure with tubular necrosis (7) Hypovolemia dehydration Status: Acute (8) Bilateral pleural effusion Status: Acute (9) IDDM (insulin dependent diabetes mellitus) Status: Chronic (10) Lactic acidosis Status: Acute (11) UTI (urinary tract infection) Status: Resolved Qualifiers: Urinary tract infection type: acute cystitis Hematuria presence: without hematuria Qualified Codes: N30.00 - Acute cystitis without hematuria Resolution Date/Time: 02/27/19 @ 08:40 Clinical Quality Measures DVT/VTE Risk/Contraindication: Risk Factor Score Per Nursin RFS Level Per Nursing on Admit: 4+=Very High ABIGAIL PORTER MD Mar 13, 2019 09:23 POS
[2019-03-13] MEDS: ANIDULAFUNGIN INJECTION 100 MG in NS (IVPB) 100 ML IV SCH (09:29)
--- NOTE | 2019-03-13 10:26 | Occ Therapy Progress Note ---
Therapy Progress Note Pt intubated, planned surgery on this date. Will check back tomorrow to determine if pt able to participate in skilled therapy treatment. YANIRA FREEMAN OTR Mar 13, 2019 10:26 POS
[2019-03-13] MEDS ORDERED: LACTATED RINGERS 1,000 ML IV PRN (12:00)
[2019-03-13] MEDS ORDERED: MIDAZOLAM 2 MG/2 ML (VERSED) VIAL ONE (13:07)
[2019-03-13] MEDS ORDERED: fentaNYL INJECTION 100 MCG/2 ML AMP ONE (13:07)
[2019-03-13] MEDS ORDERED: ROCURONIUM 10 MG/ML 5 ML SYRINGE IV ONE (13:07)
[2019-03-13] MEDS ORDERED: SEVOFLURANE (ULTANE) 15 ML INHAL SOLN ONE ×3 (13:07→15:44)
--- NOTE | 2019-03-13 14:45 | NUR ---
Patient to OR via bed with OR staff at 1445.
[2019-03-13] MEDS ORDERED: morphine INJ 10 MG/ML 1ML (SYR OR VIAL) ONE (15:38)
--- NOTE | 2019-03-13 17:15 | NUR ---
This nurse taking over care of patient from recovery nurse at 1715.
--- NOTE | 2019-03-13 17:28 | Progress Note-Post Operative ---
Post-Operative Progess Note Surgeon (s)/Tuyere Fitter (s) Surgeon MISSY MONTEJO DO Tuyere Fitter: Noel Pre-Operative Diagnosis Open Abdomen, Malnutrition Post-Operative Diagnosis Same Procedure & Operative Findings Date of Procedure 03/13/19 Procedure Performed/Findings Exploration of Abdomen with removal of ABthera VAC Abdominal Washout Closure of Fascia with Vicryl Mesh Wound VAC placement, 15 x 8cm Anesthesia Type GET Estimated Blood Loss Estimated blood loss (mL): scant Specimens/Packing Specimens Removed none MISSY MONTEJO DO Mar 13, 2019 17:28 POS
--- NOTE | 2019-03-13 23:23 | OPERATIVE REPORT ---
DATE OF SERVICE: PREOPERATIVE DIAGNOSES: Open abdomen, malnutrition, respiratory failure. POSTOPERATIVE DIAGNOSES: Open abdomen, malnutrition, respiratory failure. PROCEDURES: 1. Exploration of the abdomen through removal of ABThera wound VAC. 2. Abdominal washout. 3. Closure of fascia with Vicryl mesh. 4. Wound VAC placement, 15 x 8 cm area. SURGEON: Jung Willett DO. BUTTON BROACHER: Dr. Cohen. ANESTHESIA: General endotracheal tube. SPECIMENS: None. BLOOD LOSS: Scant. FLUIDS: Per anesthesia. POSTOPERATIVE CONDITION: Stable. INDICATION FOR PROCEDURE: The patient is a 73-year-old female who has had a long protracted course. She has had unfortunately multiple surgeries in attempts to repair enterotomies. She did not had breakdown of anastomosis, fistula formation. She finally got a diverting loop ileostomy, had open abdomen and ABThera wound VAC placed, taken back to the OR today to see make sure she had no more holes and see if we can close her abdomen. FINDINGS: The patient had no obvious enterotomies or openings or fistulas in the small bowel, still had a lot of fecal contamination, basically film, covering some of the cannon but abdomen looked okay. PROCEDURE NOTE: After informed consent was obtained, the patient was brought to the operating room, placed on table in the supine position. She was sterilely prepped and draped in normal fashion, had basically used 10x10 drapes to separate the two ileostomy, she has one on either side of abdomen. At this point, had removed the ABThera VAC, started running the small intestine, looked good. There are no holes or openings or breakdown of the staple line. There is no new fecal contamination. There was just some film on the abdominal wall, but nothing new. There is no purulent fluid in the left or right under the diaphragm. At this point, copiously irrigated with 3 or 4 liters of warm normal saline, putting in all four quadrants, suctioning this out. The ileostomy on the left, a diverting ileostomy starting pink up and looking better and so at this point since we saw no new holes, elected to close the midline incision, closed with a Vicryl mesh, 12 x 12 mesh was turned diagonally to be able to cover this area, sutured this in with 0 Vicryl running suture. Six sutures were used to suture in the Vicryl mesh, then placed white foam down over the Vicryl mesh, cut up two pieces into four separate pieces to be able to fit into this area and then cut two medium sized black sponges to put over the top, then covered this area with occlusive dressing and then hooked this up to the VAC suction. This area had measured about 15 cm by about 8 cm wide. This was hooked up to suction. The patient tolerated this procedure and she was then transferred back to the ICU in stable condition. Sponges and needle count correct at the end of the case. Dr. Cohen assisted in this incision, helping to hold anatomy out of the way, identify anatomy and then close the incision, suturing in the Vicryl mesh. Job ID: [id number] DocumentID: [id number] Dictated Date: 03/13/2019 17:30:58 Barrel Rifler Date: 03/13/2019 23:22:57 Dictated By: DO AVELINA LOPEZ
[2019-03-14] VITALS (30 sets, daily range): BP systolic 92–214; BP diastolic 31–60
[2019-03-14] MEDS: HYDROCORTISONE 100 MG/2 ML (Solu-CORTEF) VIAL IV SCH ×4 (00:40→18:27)
[2019-03-14] MEDS: inSUlin ASPART (NovoLOG) 1 UNIT/0.01 ML (CHARGE PER UNIT) SQ SCH ×6 (00:40→20:44)
[2019-03-14] MEDS: MEROPENEM 500 MG/SWFI 10 ML IV PUSH IV SCH ×6 (02:03→18:27)
[2019-03-14] MEDS: niCARdipine IV 50 MG in NS (IVPB) 230 ML IV SCH ×3 (02:30→20:26)
[2019-03-14] MEDS: PROPOFOL DRIP (ICU) 100 ML IV SCH ×3 (02:30→22:00)
[2019-03-14 02:55] LABS: BASOPHILS % (AUTO) 0 % (0-10); EOSINOPHILS % (AUTO) 0 % (0-10); HEMATOCRIT 29 % (35-52); HEMOGLOBIN 9.2 G/DL (11.5-16.0); LYMPHOCYTES # (AUTO) 0.4 X 10^3 (1.0-4.0); LYMPHOCYTES % (AUTO) 4 % (12-44); MEAN CORPUSCULAR HEMOGLOBIN 30 PG (25-34); MEAN CORPUSCULAR HGB CONC 32 G/DL (32-36); MEAN CORPUSCULAR VOLUME 94 FL (80-99); MONOCYTES # (AUTO) 0.7 X 10^3 (0.0-1.0); MONOCYTES % (AUTO) 7 % (0-12); NEUTROPHILS # (AUTO) 8.8 X 10^3 (1.8-7.8); NEUTROPHILS % (AUTO) 89 % (42-75); PLATELET COUNT 145 10^3/uL (130-400); RED CELL DISTRIBUTION WIDTH 16.4 % (10.0-14.5); WHITE BLOOD COUNT 9.9 10^3/uL (4.3-11.0)
[2019-03-14 02:56] LABS: ABG BASE EXCESS -0.7 MMOL/L (-2.5-2.5); ABG OXYGEN SATURATION 95 % (94-100); ABG PCO2 47 MMHG (35-45); ABG PO2 76 MMHG (79-93); ABG TCO2 26.1 MMOL/L (21.0-31.0); ALLENS TEST ARTLINE; INSPIRED O2 28%; VENTILATOR YES
[2019-03-14 02:57] LABS: ABG PH 7.34 (7.37-7.43)
[2019-03-14 03:18] LABS: BUN/CREATININE RATIO 64; CALCIUM 7.2 MG/DL (8.5-10.1); CARBON DIOXIDE 21 MMOL/L (21-32); CHLORIDE 109 MMOL/L (98-107); CREATININE SERUM 0.78 MG/DL (0.60-1.30); GFR ESTIMATED > 60; GLUCOSE 267 MG/DL (70-105); MAGNESIUM 2.1 MG/DL (1.6-2.4); PHOSPHORUS 4.5 MG/DL (2.3-4.7); POTASSIUM 4.9 MMOL/L (3.6-5.0); SODIUM 137 MMOL/L (135-145)
[2019-03-14] MEDS: MAGNESIUM 1 GM/100 ML IVPB 100 ML IV SCH (03:20)
[2019-03-14] MEDS: POTASSIUM CL 10MEQ/50ML IVPB 50 ML IV SCH (03:20)
[2019-03-14] MEDS: KCL 20 MEQ TAB (K-DUR) PO SCH (03:20)
--- NOTE | 2019-03-14 04:17 | Pulmonary Progress Note ---
LILA VAUGHN A MEDICAL STUDENT 03/14/19 0417: Subjective Date Seen by a Provider: Mar 14, 2019 Time Seen by a Provider: 03:15 Subjective/Events-last exam Pt remains intubated and sedated. Pt had abd washout and wound vac by surgery yesterday. Sepsis Event Evaluation Height, Weight, BMI Height: 5'5.00" Weight: 160lbs. 0.0oz. 72.967592ip; 21.79 BMI Method:Stated Focused Exam Time of Focused Exam: 22:00 Exam Exam Vital Signs Date Time Temp Pulse Resp B/P (MAP) Pulse Ox O2 Delivery O2 Flow Rate FiO2 03/14/19 03:00 63 13 182/44 (90) 98 Mechanical Ventilator 28.00 03/14/19 02:30 35.01468 59 14 151/33 97 Mechanical Ventilator 28.00 03/14/19 02:12 59 14 97 28 03/14/19 02:00 57 14 151/33 (72) 97 Mechanical Ventilator 28.00 03/14/19 01:00 59 14 151/33 (72) 97 Mechanical Ventilator 28.00 03/14/19 01:00 59 03/14/19 00:00 58 13 145/31 (69) 97 Mechanical Ventilator 28.00 03/14/19 00:00 93 Mechanical Ventilator 28 03/13/19 23:00 58 14 97 28 03/13/19 23:00 60 13 165/36 (79) 98 Mechanical Ventilator 28.00 03/13/19 22:12 35.80843 54 14 167/36 96 Mechanical Ventilator 28.00 03/13/19 22:00 59 13 179/39 (85) 97 Mechanical Ventilator 28.00 03/13/19 21:00 56 13 175/38 (83) 96 Mechanical Ventilator 28.00 03/13/19 20:00 54 14 172/38 (82) 97 Mechanical Ventilator 28.00 03/13/19 20:00 96 Mechanical Ventilator 28 03/13/19 19:57 54 14 98 28 03/13/19 19:26 35.8 54 12 167/36 (79) 92 Mechanical Ventilator 28.00 03/13/19 19:00 54 13 168/37 (80) 93 Mechanical Ventilator 28.00 03/13/19 19:00 54 03/13/19 18:00 55 12 177/38 (84) 96 Mechanical Ventilator 28.00 03/13/19 17:15 97 Mechanical Ventilator 28 03/13/19 17:15 Mechanical Ventilator 28.00 03/13/19 17:15 36.2 16 94 Mechanical Ventilator 03/13/19 17:10 16 94 Mechanical Ventilator 03/13/19 17:00 16 94 Mechanical Ventilator 03/13/19 17:00 56 13 184/48 (93) 94 Mechanical Ventilator 28.00 03/13/19 17:00 Mechanical Ventilator 28.00 03/13/19 16:50 16 95 Mechanical Ventilator 03/13/19 16:45 Mechanical Ventilator 28.00 03/13/19 16:40 16 94 Mechanical Ventilator 03/13/19 16:30 Mechanical Ventilator 28.00 03/13/19 16:30 16 94 Mechanical Ventilator 03/13/19 16:26 130/46 03/13/19 16:20 16 94 Mechanical Ventilator 03/13/19 16:16 Mechanical Ventilator 28.00 03/13/19 16:16 36.2 20 168/50 (89) 100 Mechanical Ventilator 03/13/19 14:10 57 14 97 28 03/13/19 14:00 58 13 176/48 (90) 97 Mechanical Ventilator 28.00 03/13/19 13:00 56 13 174/48 (90) 97 Mechanical Ventilator 28.00 03/13/19 12:56 59 03/13/19 12:00 97 Mechanical Ventilator 28 03/13/19 12:00 55 14 151/47 (81) 97 Mechanical Ventilator 28.00 03/13/19 12:00 36.4 03/13/19 11:00 55 14 144/46 (78) 96 Mechanical Ventilator 28.00 03/13/19 10:23 56 14 96 28 03/13/19 10:00 56 13 140/46 (77) 97 Mechanical Ventilator 28.00 03/13/19 09:29 138/46 03/13/19 09:00 57 13 140/47 (78) 96 Mechanical Ventilator 28.00 03/13/19 08:00 96 Mechanical Ventilator 28 03/13/19 08:00 58 14 143/48 (79) 96 Mechanical Ventilator 28.00 03/13/19 07:00 60 14 165/51 (89) 97 Mechanical Ventilator 28.00 03/13/19 06:51 63 03/13/19 06:06 60 14 98 28 03/13/19 06:00 57 12 135/43 (73) 98 Mechanical Ventilator 28.00 03/13/19 05:00 59 12 169/46 (87) 97 Mechanical Ventilator 28.00 I & O 03/14/19 07:00 Intake Total 2515 ml Output Total 4505 ml Balance -1990 ml Height & Weight Height: 5'5.00" Weight: 160lbs. 0.0oz. 72.352859uw; 21.79 BMI Method:Stated General Appearance: Chronically ill, Other (sedated on vent) HEENT: Other (intubated) Neck: Normal Inspection Respiratory: Lungs Clear, No Respiratory Distress Cardiovascular: Regular Rate, Rhythm, No Murmur Capillary Refill: Greater Than 3 Seconds Peripheral Pulses: 2+ Dorsalis Pedis (R), 2+ Left Dors-Pedis (L), 2+ Radial Pulses (R), 2+ Radial Pulses (L) Gastrointestinal: other (wound vac in place) Extremity: Pedal Edema (1+ bilateral) Neurologic/Psychiatric: Other (eadted) Skin: Warm/Dry Lymphatic: No Adenopathy Results Lab Laboratory Tests 03/13/19 03:10 03/14/19 02:45 Assessment/Plan Assessment/Plan Acute respiratory failure with hypoxia -Pt had surgery yesterday (03/13) -Will leave patient on Vent until ok with surgery to wean -ABG showed slight CO2 retention at 47, pH of 7.34, and HCO3 of 25 -CXR showed decreasing pulmonary congestion with improved aeration of left lower lobe (03/13) hypotension and episodes of bradycardia with episode of hypertension -Levophed is off -Cardene has remained off -Currently DLR at 150 -Clinimax running at 125cc/hr -D5LR running at50cc/hr In: 4865 out: 4945 net: -80 Lines: Raquel 200ml/hr propofol 18ml/hr LR 150ml/Hr D5LR 50ml/hr Fentanyl - 22ml/hr Anidulafuryin - 85ml/hr clinimax 125ml/hr Hyperglycemia -Change to Q4 accu checks -pt's accu checks running in the low 200's (03/13) -accu checks in mid to upper 200's (03/14) -Continue D5 secondary to pt's severe malnutrition state. Acute worsening anemia s/p 4 units PRBC -Monitor -PT Hgb stable at 9.3 today recurrent perforated abdominal viscus x 3 s/p repeat surgeries with resections -Cont Merrem and Eraxis -status post small bowel resection and diverting ileostomy and WoundVac placement -pt had abd washout and WoundVac replacement yesterday (03/13) Protein jorge malnutrition with low albumin and anasarca - prealbumin - <3 -Clinimax 125cc/hr -D5LR to 50cc/hr -Pt has had very little if any PO intake since she was admitted on 02/24. -Pt currently on D5 to LR and continue Banana bag daily -Start TPN if OK with surgery -Will monitor for refeeding syndrome . -Mg 2.1, PO4 4.5, K 4.9 (03/14) Fungemia secondary to abdominal perforation -Repeat BC are negative -Repeat BC collected 03/07 -Eraxis Acute renal failure with anasarca -IVF and continue to monitor -pt has decreased urine output with dark concentrated urine -- Will give liter bolus of LR. (03/13) - Pt has better net fluid balance today with net output of -80ml Grade 1 diastolic dysfunction -Monitor Afib - currently sinus DM II Debility -PT/OT Overall prognosis is guarded to poor. Pt is still currently a full code MIKA MARTINEZ DO 03/14/19 0757: Subjective Time Seen by a Provider: 07:56 Subjective/Events-last exam intubated and sedated Exam Exam General Appearance: Chronically ill, Other (sedated on vent) HEENT: Other (intubated) Neck: Normal Inspection Respiratory: No Respiratory Distress, Decreased Breath Sounds Cardiovascular: Regular Rate, Rhythm, No Murmur Gastrointestinal: other (wound vac in place) Extremity: Pedal Edema (1+ bilateral) Neurologic/Psychiatric: Other (eadted) Skin: Warm/Dry Lymphatic: No Adenopathy Assessment/Plan Assessment/Plan Acute respiratory failure with hypoxia -Pt had surgery yesterday (03/13) -Will leave patient on Vent until ok with surgery to wean -ABG showed slight CO2 retention at 47, pH of 7.34, and HCO3 of 25 -CXR showed decreasing pulmonary congestion with improved aeration of left lower lobe (03/13) -Surgery has give ok to wean vent. Will proceed with vent weaning. -Will also start TPN. hypotension and episodes of bradycardia with episode of hypertension -Levophed is off -Cardene has remained off -Currently DLR at 150 -Clinimax running at 125cc/hr -D5LR running at50cc/hr In: 4865 out: 4945 net: -80 Lines: Raquel 200ml/hr propofol 18ml/hr LR 150ml/Hr D5LR 50ml/hr Fentanyl - 22ml/hr Anidulafuryin - 85ml/hr clinimax 125ml/hr Hyperglycemia -Change to Q4 accu checks -pt's accu checks running in the low 200's (03/13) -accu checks in mid to upper 200's (03/14) -Continue D5 secondary to pt's severe malnutrition state. Acute worsening anemia s/p 4 units PRBC -Monitor -PT Hgb stable at 9.3 today recurrent perforated abdominal viscus x 3 s/p repeat surgeries with resections -Cont Merrem and Eraxis -status post small bowel resection and diverting ileostomy and WoundVac placement -pt had abd washout and WoundVac replacement yesterday (03/13) Protein jorge malnutrition with low albumin and anasarca - prealbumin - <3 -Clinimax 125cc/hr -D5LR to 50cc/hr -Pt has had very little if any PO intake since she was admitted on 02/24. -Pt currently on D5 to LR and continue Banana bag daily -Start TPN if OK with surgery -Will monitor for refeeding syndrome . -Mg 2.1, PO4 4.5, K 4.9 (03/14) Fungemia secondary to abdominal perforation -Repeat BC are negative -Repeat BC collected 03/07 -Eraxis Acute renal failure with anasarca -IVF and continue to monitor -pt has decreased urine output with dark concentrated urine -- Will give liter bolus of LR. (03/13) - Pt has better net fluid balance today with net output of -80ml Grade 1 diastolic dysfunction -Monitor Afib - currently sinus DM II Debility -PT/OT Supervisory-Addendum Brief Verification & Attestation Participated in pt care: history Personally performed: exam, history Care discussed with: Medical Student Procedures: n/a Verification and Attestation of Medical Student E/M Service A medical student performed and documented this service in my presence. I reviewed and verified all information documented by the medical student and made modifications to such information, when appropriate. I personally performed the physical exam and medical decision making. Mika Martinez, Mar 19, 2019,05:36 LILA VAUGHN MEDICAL STUDENT Mar 14, 2019 04:17 MIKA VERDUGO DO Mar 14, 2019 07:57 POS
[2019-03-14] MEDS: AA 4.25% W/LYTES IN D5W IV SOL 1,000 ML IV SCH ×2 (04:24→13:49)
[2019-03-14] MEDS: D5 LR IV SOLUTION 1,000 ML IV SCH ×2 (06:10→15:45)
[2019-03-14] MEDS: fentaNYL INJECTION 1,250 MCG in NS (IVPB) 250 ML IV SCH (06:14)
--- NOTE | 2019-03-14 06:57 | Anesthesia-General Post-Op ---
General Patient Condition Mental Status/LOC: Same as Preop Cardiovascular: Satisfactory Nausea/Vomiting: Absent Respiratory: Satisfactory (Patient still intubated post op. ) Pain: Controlled Complications: Absent Post Op Complications Complications None Follow Up Care/Instructions Patient Instructions None needed. Anesthesia/Patient Condition Patient Condition Patient is doing well, no complaints, stable vital signs, no apparent adverse anesthesia problems. No complications reported per nursing. [place] [facility] [place]: No CHRISTI CARDENAS CRNA Mar 14, 2019 06:57 POS
--- NOTE | 2019-03-14 07:00 | NUR ---
TIMELINE NOTE: 0800: REPORT RECEIVED AND CHART REVIEWED. ASSESSMENT COMPLETED. PT RESTING WITH EYES CLOSE IN NAD. DAUGHTER AT BEDSIDE. 0830: ORDER RECEIVED TO D/C PROPOFOL AND RT TO DO WEANING PERIMETERS WHEN AWAKE. 0916: PT SHAKING HEAD YES AND NO. RT AT BEDSIDE. DR THOMPSON NOTIFIED OF BP 223/55 HR 101 SATS 89% ON 28%. HYDRALAZINE GIVEN AND PROVIDER COMING OT BEDSIDE. 0930: DR. THOMPSON AT BEDSIDE. ORDER OBTAINED FOR VASOTEQ FOR SBP GREATER THAN 180. ADMINISTERED. PT NOT FOLLOWING COMMANDS. FENTANYL STOPPED. 1000: ORDER OBTAINED TO RESTART CARDENE FOR BP. ATTEMPT TO KEEP SBP LESS THAN 180. PT IS RESTING COMFORTABLY IN BED IN NAD.
--- NOTE | 2019-03-14 07:05 | Progress Note - Surgery ---
BECCA CHANDLER MED STUDENT 03/14/19 0704: Subjective Date Seen by a Provider: Mar 14, 2019 Time Seen by a Provider: 06:45 Subjective/Events-last exam Patient intubated and sedated. Reacted to physical exam more today, but still not responsive. All drainage serosanguineous. Spoke with nursing who stated that she has had 1500 mL drainage from the woundvac, 30 mL from each MARKUS tube, and urine output has increased to 650mL over a 12 hour period. Focused Exam Time of Focused Exam: 22:00 Objective Exam Vital Signs Date Time Temp Pulse Resp B/P (MAP) Pulse Ox O2 Delivery O2 Flow Rate FiO2 03/14/19 06:11 35.49810 63 14 146/36 96 Mechanical Ventilator 28.00 03/14/19 06:00 64 14 140/36 (70) 94 Mechanical Ventilator 28.00 03/14/19 05:20 35.8 03/14/19 05:00 63 14 146/36 (72) 96 Mechanical Ventilator 28.00 03/14/19 04:00 64 14 161/38 (79) 98 Mechanical Ventilator 28.00 03/14/19 04:00 96 Mechanical Ventilator 28 03/14/19 03:00 63 13 182/44 (90) 98 Mechanical Ventilator 28.00 03/14/19 02:30 35.58210 59 14 151/33 97 Mechanical Ventilator 28.00 03/14/19 02:12 59 14 97 28 03/14/19 02:00 57 14 151/33 (72) 97 Mechanical Ventilator 28.00 03/14/19 01:00 59 14 151/33 (72) 97 Mechanical Ventilator 28.00 03/14/19 01:00 59 03/14/19 00:00 36.0 03/14/19 00:00 58 13 145/31 (69) 97 Mechanical Ventilator 28.00 03/14/19 00:00 93 Mechanical Ventilator 28 03/13/19 23:00 58 14 97 28 03/13/19 23:00 60 13 165/36 (79) 98 Mechanical Ventilator 28.00 03/13/19 22:12 35.60938 54 14 167/36 96 Mechanical Ventilator 28.00 03/13/19 22:00 59 13 179/39 (85) 97 Mechanical Ventilator 28.00 03/13/19 21:00 56 13 175/38 (83) 96 Mechanical Ventilator 28.00 03/13/19 20:00 54 14 172/38 (82) 97 Mechanical Ventilator 28.00 03/13/19 20:00 96 Mechanical Ventilator 28 03/13/19 19:57 54 14 98 28 03/13/19 19:26 35.8 54 12 167/36 (79) 92 Mechanical Ventilator 28.00 03/13/19 19:00 54 13 168/37 (80) 93 Mechanical Ventilator 28.00 03/13/19 19:00 54 03/13/19 18:00 55 12 177/38 (84) 96 Mechanical Ventilator 28.00 03/13/19 17:15 97 Mechanical Ventilator 28 03/13/19 17:15 Mechanical Ventilator 28.00 03/13/19 17:15 36.2 16 94 Mechanical Ventilator 03/13/19 17:10 16 94 Mechanical Ventilator 03/13/19 17:00 16 94 Mechanical Ventilator 03/13/19 17:00 56 13 184/48 (93) 94 Mechanical Ventilator 28.00 03/13/19 17:00 Mechanical Ventilator 28.00 03/13/19 16:50 16 95 Mechanical Ventilator 03/13/19 16:45 Mechanical Ventilator 28.00 03/13/19 16:40 16 94 Mechanical Ventilator 03/13/19 16:30 Mechanical Ventilator 28.00 03/13/19 16:30 16 94 Mechanical Ventilator 03/13/19 16:26 130/46 03/13/19 16:20 16 94 Mechanical Ventilator 03/13/19 16:16 Mechanical Ventilator 28.00 03/13/19 16:16 36.2 20 168/50 (89) 100 Mechanical Ventilator 03/13/19 14:10 57 14 97 28 03/13/19 14:00 58 13 176/48 (90) 97 Mechanical Ventilator 28.00 03/13/19 13:00 56 13 174/48 (90) 97 Mechanical Ventilator 28.00 03/13/19 12:56 59 03/13/19 12:00 97 Mechanical Ventilator 28 03/13/19 12:00 55 14 151/47 (81) 97 Mechanical Ventilator 28.00 03/13/19 12:00 36.4 03/13/19 11:00 55 14 144/46 (78) 96 Mechanical Ventilator 28.00 03/13/19 10:23 56 14 96 28 03/13/19 10:00 56 13 140/46 (77) 97 Mechanical Ventilator 28.00 03/13/19 09:29 138/46 03/13/19 09:00 57 13 140/47 (78) 96 Mechanical Ventilator 28.00 03/13/19 08:00 96 Mechanical Ventilator 28 03/13/19 08:00 58 14 143/48 (79) 96 Mechanical Ventilator 28.00 03/13/19 07:00 60 14 165/51 (89) 97 Mechanical Ventilator 28.00 I & O 03/14/19 07:00 Intake Total 5715 ml Output Total 5265 ml Balance 450 ml Capillary Refill : Less Than 3 SecondsGreater Than 3 Seconds General Appearance: Chronically ill, Other (sedated on vent) HEENT: Other (intubated) Neck: Normal Inspection, Supple Respiratory: Lungs Clear, No Respiratory Distress Cardiovascular: Regular Rate, Rhythm, No Murmur, Normal Peripheral Pulses Peripheral Pulses: 2+ Dorsalis Pedis (R), 2+ Left Dors-Pedis (L), 2+ Radial Pulses (R), 2+ Radial Pulses (L) Gastrointestinal: No distended; other (wound vac in place) Extremity: Normal Capillary Refill, Pedal Edema (1+ bilateral) Neurologic/Psychiatric: No Alert; Other (eadted) Skin: Warm/Dry, Pallor Lymphatic: No Adenopathy Results Lab Laboratory Tests 03/13/19 08:26: Glucometer 231H 03/13/19 13:49: Glucometer 247H 03/13/19 20:16: Glucometer 280H 03/14/19 00:24: Glucometer 284H 03/14/19 02:45: White Blood Count 9.9, Red Blood Count 3.08L, Hemoglobin 9.2L, Hematocrit 29L, Mean Corpuscular Volume 94, Mean Corpuscular Hemoglobin 30, Mean Corpuscular Hemoglobin Concent 32, Red Cell Distribution Width 16.4H, Platelet Count 145, Mean Platelet Volume 10.0, Neutrophils (%) (Auto) 89H, Lymphocytes (%) (Auto) 4L , Monocytes (%) (Auto) 7, Eosinophils (%) (Auto) 0, Basophils (%) (Auto) 0, Neutrophils # (Auto) 8.8H, Lymphocytes # (Auto) 0.4L, Monocytes # (Auto) 0.7, Eosinophils # (Auto) 0.0, Basophils # (Auto) 0.0, Sodium Level 137, Potassium Level 4.9, Chloride Level 109H, Carbon Dioxide Level 21, Anion Gap 7, Blood Urea Nitrogen 50H, Creatinine 0.78, Estimat Glomerular Filtration Rate > 60, BUN/Creatinine Ratio 64, Glucose Level 267H, Calcium Level 7.2L, Phosphorus Level 4.5, Magnesium Level 2.1 03/14/19 02:50: Blood Gas Puncture Site RIGHT ARTLINE, Blood Gas Patient Temperature 36.0, Arterial Blood pH 7.34*L, Arterial Blood Partial Pressure CO2 47H, Arterial Blood Partial Pressure O2 76L, Arterial Blood HCO3 25, Arterial Blood Total CO2 26.1, Arterial Blood Oxygen Saturation 95, Arterial Blood Base Excess -0.7, Kenny Test ARTLINE, Blood Gas Ventilator Setting YES, Blood Gas Inspired Oxygen 28% Microbiology 03/07/19 Blood Culture - Final, Complete No growth 03/08/19 Gram Stain - Final, Complete 03/08/19 Sputum Culture - Final, Complete No growth 02/24/19 Urine Culture - Final, Complete NO GROWTH 03/05/19 Gram Stain - Final, Complete 03/05/19 Anaerobic Culture - Final, Complete No anaerobes isolated 03/05/19 Surgical Culture - Final, Complete Marilia species Assessment/Plan Assessment/Plan Assessment/Plan S/p abdomen washout and closure. Monitor wound healing and drainage, will be starting TPN. Clinical Quality Measures DVT/VTE Risk/Contraindication: Risk Factor Score Per Nursin RFS Level Per Nursing on Admit: 4+=Very High MISSY MONTEJO DO 03/14/19 0845: Subjective Time Seen by a Provider: 08:13 Subjective/Events-last exam Pt seen and examined, sedated on vent. Nurse states they did not have any trouble all night. Assessment/Plan Assessment/Plan Assessment/Plan S/P Abd Washout and Fascial closure with Vicryl Mesh Plan is to attempt to wean pt today, she will get wound VAC change , and will start TPN. Supervisory-Addendum Brief Verification & Attestation Participated in pt care: history, MDM, physical Personally performed: exam, history, MDM Care discussed with: Medical Student Procedures: n/a Verification and Attestation of Medical Student E/M Service A medical student performed and documented this service in my presence. I reviewed and verified all information documented by the medical student and made modifications to such information, when appropriate. I personally performed the physical exam and medical decision making. Missy Montejo, Mar 14, 2019,08:45 BECCA CHANDLER MED STUDENT Mar 14, 2019 07:04 MISSY JAMES DO Mar 14, 2019 08:45 POS
--- NOTE | 2019-03-14 07:14 | Cardiology Progress Note ---
Subjective Date Seen by Provider: Mar 14, 2019 Time Seen by Provider: 07:12 Subjective/Events-last exam Patient is sedated and intubated Review of Systems General: Other (Unable to provide review of systems) Focused Exam Time of Focused Exam: 22:00 Objective-Cardiology Exam Last Set of Vital Signs Vital Signs 03/14/19 03/14/19 04:00 06:11 Temp 35.41506 Pulse 63 Resp 14 B/P (MAP) 146/36 Pulse Ox 96 O2 Delivery Mechanical Ventilator O2 Flow Rate 28.00 FiO2 28 Capillary Refill : Less Than 3 SecondsGreater Than 3 Seconds I&O Intake and Output 03/14/19 00:00 Intake Total 6965 ml Output Total 4945 ml Balance 2020 ml IV Total 6965 ml Output Urine Total 1200 ml Stool Total 175 ml Gastric Drainage Total 25 ml Drainage Total 3545 ml General: Other (sedated and intubated) HEENT: Atraumatic Neck: Supple, No Thyromegaly Lungs: Normal Air Movement, Other (Bilateral rhonchi) Heart: Regular Rate, Normal S1, Normal S2, No Murmurs Abdomen: No Masses, Other (Diminished bowel sounds) Extremities: No Clubbing, No Cyanosis, Normal Pulses, No Tenderness/Swelling, Other (Bilateral edema) Skin: No Rashes Neuro: Other (Sedated and intubated) Psych/Mental Status: Mental Status NL, Other (Sedated and intubated) Results Lab Laboratory Tests 03/14/19 02:45 A/P-Cardiology Admission Diagnosis Acute respiratory failure Paroxysmal atrial fibrillation Coronary artery disease Hypertension Assessment/Plan Sepsis, multiple abdominal surgery, had bowel resection and diverting ileostomy, last procedure was done yesterday showing no further leak, had wound VAC applied and washout, recovering slowly Respiratory failure, vent dependent, sedated Labile blood pressure, we will use IV beta blockers as tolerated and continue to monitor blood pressure Anemia, multiple blood transfusion, continue to monitor Fungemia, sepsis, managed by primary care team Paroxysmal atrial fibrillation, currently in sinus rhythm, continue to monitor S/p small bowel resection secondary to perf at anastomosis site, had multiple surgery for recurrent perforation, had SB resection with diverting ileostomy and lavage on 03/11, had another surgery on March 13, 2019 with evaluation for any further leak, had a wound VAC. Managed by surgical team Saray, use Lasix as needed and monitor urine output and renal function Coronary artery disease, history of cardiac catheterization in July 2012 showing 50 percent midright coronary artery stenosis, nonobstructive disease, had a borderline disease in the midright coronary artery. Most recent cardiac catheterization done April 2018 revealed mild ectasia in the proximal LAD with mild disease in the mid LAD, small vessel disease distally, mild ectasia in the proximal circumflex artery and 40-50 percent stenosis in the mid right coronary artery, nonobstructive disease, continue to monitor History of colon cancer, history of colon resection and colostomy in the remote past has been in remission and followed by Dr. Branham History of hyperlipidemia Carotid artery stenosis , continue to monitor as outpatient. Syncope, had a syncopal episode in October 2015 probably due to dehydration. Was in renal failure. Improved. History of thyroid nodules noted on ultrasound, followed by Dr. Branham and Dr. Simmons Diabetes mellitus, followed and managed by primary care physician. History of colon cancer, history of colostomy. Currently in remission. Followed by Dr. Branham Family history of coronary artery disease. Obstructive sleep apnea, intolerance to CPAP History of appendectomy, kidney stones, hysterectomy. Breast biopsy. Clinical Quality Measures DVT/VTE Risk/Contraindication: Risk Factor Score Per Nursin RFS Level Per Nursing on Admit: 4+=Very High NAYA URIAS MD Mar 14, 2019 07:14 POS
[2019-03-14] MEDS ORDERED: FUROSEMIDE 40 MG/4 ML INJ (LASIX) IVP NR (07:15)
[2019-03-14] MEDS: RT-FLUTICASONE 220 MCG (FLOVENT) PER PUFF INH SCH ×2 (07:22→19:06)
[2019-03-14] MEDS: RT-IPRATROPIUM (ATROVENT) 0.5MG/2.5ML AMP IH SCH ×4 (07:22→19:06)
--- NOTE | 2019-03-14 07:59 | Physical Therapy Progress Note ---
Therapy Progress Note Patient continues to be intubated and sedated. Therapy will continue to monitor patient. CHIDI AMAYA PT Mar 14, 2019 07:59 POS
--- NOTE | 2019-03-14 08:16 | Progress Note - Hospitalist ---
Subjective HPI/CC On Admission Date Seen by Provider: Mar 14, 2019 Time Seen by Provider: 08:12 abdominal pain Subjective/Events-last exam Pt remains intubated and sedated. RN at bedside and reports less output form wound vac and UOP improving. Discussed with Dr Martinez and to start on TPN today. Focused Exam Time of Focused Exam: 22:00 Objective Exam Vital Signs Vital Signs Date Time Temp Pulse Resp B/P (MAP) Pulse Ox O2 Delivery O2 Flow Rate FiO2 03/14/19 07:33 Mechanical Ventilator 03/14/19 07:23 66 15 97 28 03/14/19 06:11 35.31754 146/36 28.00 Capillary Refill : Less Than 3 SecondsGreater Than 3 Seconds General Appearance: Chronically ill, Other (sedated on vent) Respiratory: Decreased Breath Sounds, Other (on vent) Cardiovascular: Regular Rate, Rhythm, No Murmur Gastrointestinal: Other (ostomies noted, wound vac in place with sanguinous output) Extremity: Pedal Edema, Swelling (upper and lower extremity) Neurologic/Psychiatric: Other (sedated, appears comfortabel) Results/Procedures Lab Laboratory Tests 03/14/19 02:45 Patient resulted labs reviewed. Imaging: Reviewed Imaging Report Assessment/Plan Assessment and Plan Assess & Plan/Chief Complaint Perforated abdominal viscus -Management per primary -Continue meropenem and eraxis -Multiple abdominal surgeries this admission- doing well following surgery on 03/13 Lactic acidosis, resolved Shock -continue stress dose steroids remain consider weaning soon Acute kidney injury- resolved Hypernatremia, resolved -Cr improving, UOP low but trending up -lasix today -MonitorUOP closely Severe protein-calorie malnutrition -TPN ordered -Prealbumin <3 Fungemia -Continue Eraxis -repeat blood cultures negative Will need 14 days treatment from negative blood cultures- consider DCing next week if remains stable Acute hypoxemic respiratory failure -Currently intubated- plan to wean today -Pulmonology following Postoperative anemia -Hgb improved post-transfusion, stable -Continue to monitor Hypertension -Hydralazine prn Paroxysmal atrial fibrillation -Cardiology following T2DM - Sliding scale insulin - On sliding scale, D5 decreased If remains high with lower dose d5 will ass levemir Critical illness myopathy -PT/OT -Will require acute rehab vs LTAC vs SNF on discharge Critical Care Critically Ill Patient Diagnosis/Problems Diagnosis/Problems (1) Shock Status: Resolved Resolution Date/Time: 03/13/19 @ 09:27 (2) Acute respiratory failure Status: Acute Qualifiers: Respiratory failure complication: unspecified whether with hypoxia or hypercapnia Qualified Codes: J96.00 - Acute respiratory failure, unspecified whether with hypoxia or hypercapnia (3) Fungemia Status: Acute (4) Atrial fibrillation with RVR (5) Perforated abdominal viscus Status: Acute (6) Acute renal failure Status: Acute Qualifiers: Acute renal failure type: with acute tubular necrosis Qualified Codes: N17.0 - Acute kidney failure with tubular necrosis (7) Hypovolemia dehydration Status: Acute (8) Bilateral pleural effusion Status: Acute (9) IDDM (insulin dependent diabetes mellitus) Status: Chronic (10) Lactic acidosis Status: Acute (11) UTI (urinary tract infection) Status: Resolved Qualifiers: Urinary tract infection type: acute cystitis Hematuria presence: without hematuria Qualified Codes: N30.00 - Acute cystitis without hematuria Resolution Date/Time: 02/27/19 @ 08:40 Clinical Quality Measures DVT/VTE Risk/Contraindication: Risk Factor Score Per Nursin RFS Level Per Nursing on Admit: 4+=Very High ABIGAIL PORTER MD Mar 14, 2019 08:16 POS
--- NOTE | 2019-03-14 08:21 | Diagnostic Imaging Report ---
INDICATION: Dyspnea. COMPARISON: 03/13/19 FINDINGS: There is cardiomegaly. There is some venous congestion. There is a right basal infiltrate and right pleural effusion. There is no pneumothorax. The lines and tubes are in satisfactory position. IMPRESSION: Right base infiltrate and right pleural effusion. Cardiomegaly and some central pulmonary venous congestion. Dictated by: Dictated on workstation # [id number]
[2019-03-14] MEDS: PANTOPRAZOLE 40 MG (PROTONIX) VIAL IV SCH (08:49)
[2019-03-14] MEDS: ANIDULAFUNGIN INJECTION 100 MG in NS (IVPB) 100 ML IV SCH (08:50)
[2019-03-14] MEDS: hydrALAZINE (APESOLINE) 20 MG/ML VIAL IV PRN (09:07)
--- NOTE | 2019-03-14 09:27 | Occ Therapy Progress Note ---
Therapy Progress Note Pt. continues to be sedated and on ventilator support. Will need new therapy orders when pt. is medically stable and extubated. 0927 HEMANT MERCEDES OT Mar 14, 2019 09:27 POS
[2019-03-14] MEDS ORDERED: ENALAPRILAT 1.25 MG/1 ML (VASOTEC) 1 ML VIAL IV PRN (10:15)
[2019-03-14] MEDS ORDERED: ENALAPRILAT 2.5 MG/2 ML (VASOTEC) VIAL IV PRN (10:15)
[2019-03-14 10:40] LABS: ABG BASE EXCESS -0.1 MMOL/L (-2.5-2.5); ABG OXYGEN SATURATION 93 % (94-100); ABG PCO2 32 MMHG (35-45); ABG PH 7.47 (7.37-7.43); ABG PO2 59 MMHG (79-93); ABG TCO2 24.3 MMOL/L (21.0-31.0)
[2019-03-14 10:42] LABS: ALLENS TEST ART LINE; INSPIRED O2 28%; PATIENT TEMP 36.5; VENTILATOR YES
--- NOTE | 2019-03-14 13:42 | NUR ---
TPN: PT. CURRENTLY NPO, ON CLINIMIX AT 125 ML/HR, PROVIDING 1020 KCAL WITH 127 GM PROTEIN, CONTAINS 150 GM DEXTROSE. BMI 36.7. CALCULATED NEEDS FOR TYPE II OBESITY PATIENT, 11-14 KCAL/ACTUAL BODY WEIGHT (0714-8493 KCAL), WITH 2GM/KG IBW FOR PROTEIN (124 GM). BLOOD SUGAR 243 AT 11:43 AM. WILL START TPN AT 56 ML/HR PROVIDING 740 KCAL AND 100 GM PROTEIN. THIS IS 100 GM DEXTROSE WITH INSULIN. WILL ADVANCE TO GOAL OF 1500 KCAL AND 125 GM PROTEIN PENDING LABS. WILL RUN O.45% NS AT 70 ML/HR WITH TPN.
[2019-03-14] MEDS ORDERED: POTASSIUM CHLORIDE IV SCH ×10 (17:00)
[2019-03-14] MEDS ORDERED: SODIUM ACETATE IV SCH ×10 (17:00)
[2019-03-14] MEDS ORDERED: 1/2 NS IV SOLUTION 1,000 ML IV SCH (17:00)
[2019-03-14] MEDS ORDERED: [UNRECOGNIZED DRUG - OTHER] IV SCH ×10 (17:00)
[2019-03-14] MEDS ORDERED: SODIUM PHOSPHATE IV SCH ×10 (17:00)
--- NOTE | 2019-03-14 17:54 | NUR ---
PROVIDING SKIN CARE TO PATIENT AND CHANGING LINENS DUE TO WEEPING. COLOSTOMY TO RIGHT SIDE CHANGED DUE TO LEAKAGE. PT AWAKE AND ALERT. SHE IS SHAKING HEAD YES AND NO. YES TO PAIN. HR 140. FAMILY AT BEDSIDE. SPOKE WITH DR THOMPSON. ORDER OBTAINED TO RESTART PROPOFOL. SWITCH VENT TO AC MODE TV 400 RATE 14 PEEP 5.
[2019-03-14] MEDS: morphine INJ 4 MG/ML 1 ML (VIAL/SYRINGE) IVP PRN (18:47)
[2019-03-15] VITALS (26 sets, daily range): BP systolic 107–226; BP diastolic 30–49
[2019-03-15] MEDS: HYDROCORTISONE 100 MG/2 ML (Solu-CORTEF) VIAL IV SCH (00:41)
[2019-03-15] MEDS: D5 LR IV SOLUTION 1,000 ML IV SCH (00:44)
[2019-03-15] MEDS: inSUlin ASPART (NovoLOG) 1 UNIT/0.01 ML (CHARGE PER UNIT) SQ SCH ×6 (00:44→21:44)
[2019-03-15] MEDS: MEROPENEM 500 MG/SWFI 10 ML IV PUSH IV SCH ×6 (01:58→16:59)
[2019-03-15] MEDS: PROPOFOL DRIP (ICU) 100 ML IV SCH ×2 (01:58→17:07)
[2019-03-15] MEDS: morphine INJ 4 MG/ML 1 ML (VIAL/SYRINGE) IVP PRN ×5 (01:59→22:25)
[2019-03-15] MEDS: hydrALAZINE (APESOLINE) 20 MG/ML VIAL IV PRN (01:59)
[2019-03-15 03:54] LABS: ABG BASE EXCESS -0.4 MMOL/L (-2.5-2.5); ABG OXYGEN SATURATION 99 % (94-100); ABG PCO2 36 MMHG (35-45); ABG PH 7.43 (7.37-7.43); ABG PO2 110 MMHG (79-93); ABG TCO2 24.5 MMOL/L (21.0-31.0); BASOPHILS % (AUTO) 0 % (0-10); EOSINOPHILS % (AUTO) 0 % (0-10); HEMATOCRIT 29 % (35-52); HEMOGLOBIN 9.4 G/DL (11.5-16.0); LYMPHOCYTES # (AUTO) 0.4 X 10^3 (1.0-4.0); LYMPHOCYTES % (AUTO) 3 % (12-44); MEAN CORPUSCULAR HEMOGLOBIN 30 PG (25-34); MEAN CORPUSCULAR HGB CONC 33 G/DL (32-36); MEAN CORPUSCULAR VOLUME 92 FL (80-99); MEAN PLATELET VOLUME 9.9 FL (7.4-10.4); MONOCYTES # (AUTO) 0.8 X 10^3 (0.0-1.0); MONOCYTES % (AUTO) 7 % (0-12); NEUTROPHILS # (AUTO) 10.8 X 10^3 (1.8-7.8); NEUTROPHILS % (AUTO) 90 % (42-75); PLATELET COUNT 162 10^3/uL (130-400); RED CELL DISTRIBUTION WIDTH 16.5 % (10.0-14.5); WHITE BLOOD COUNT 12.1 10^3/uL (4.3-11.0)
[2019-03-15 03:56] LABS: ALLENS TEST ARTLINE; INSPIRED O2 90%; PATIENT TEMP 37; VENTILATOR YES
--- NOTE | 2019-03-15 04:13 | Pulmonary Progress Note ---
LILA VAUGHN A MEDICAL STUDENT 03/15/19 0413: Subjective Date Seen by a Provider: Mar 15, 2019 Time Seen by a Provider: 04:09 Subjective/Events-last exam Pt sedated and intubated. Pt is on TPN. Was attempted to wake patient up yesterday, pt had to have increased amount of propofol(up to 50), as well as had to have increased FiO2 of 90%. Sepsis Event Evaluation Height, Weight, BMI Height: 5'5.00" Weight: 160lbs. 0.0oz. 72.656246he; 21.79 BMI Method:Stated Focused Exam Time of Focused Exam: 22:00 Exam Exam Vital Signs Date Time Temp Pulse Resp B/P (MAP) Pulse Ox O2 Delivery O2 Flow Rate FiO2 03/15/19 03:28 Mechanical Ventilator 90.00 03/15/19 02:58 Mechanical Ventilator 100.00 03/15/19 02:43 96 15 93 100 03/15/19 02:00 90 15 186/48 (94) 96 Mechanical Ventilator 80.00 03/15/19 01:58 202/54 03/15/19 01:00 85 03/15/19 01:00 81 14 156/49 (84) 100 Mechanical Ventilator 80.00 03/15/19 00:54 Mechanical Ventilator 80.00 03/15/19 00:00 94 Mechanical Ventilator 40 03/15/19 00:00 73 14 107/39 (61) 100 Mechanical Ventilator 40.00 03/14/19 23:00 79 12 92/38 (56) 100 Mechanical Ventilator 40.00 03/14/19 22:00 94 17 150/46 (80) 100 Mechanical Ventilator 40.00 03/14/19 22:00 148/65 03/14/19 21:30 107 21 90 100 03/14/19 21:00 106 23 175/51 (92) 90 Mechanical Ventilator 40.00 03/14/19 20:00 94 Mechanical Ventilator 40 03/14/19 20:00 96 21 173/49 (90) 91 Mechanical Ventilator 40.00 03/14/19 19:06 105 25 90 40 03/14/19 19:00 109 03/14/19 19:00 109 22 133/44 (73) 93 Mechanical Ventilator 40.00 03/14/19 18:00 135 23 169/53 (91) 91 Mechanical Ventilator 28.00 03/14/19 17:00 105 24 174/44 (87) 93 Mechanical Ventilator 28.00 03/14/19 16:51 94 Mechanical Ventilator 28 03/14/19 16:00 107 29 181/46 (91) 96 Mechanical Ventilator 28.00 03/14/19 15:00 107 24 185/45 (91) 92 Mechanical Ventilator 28.00 03/14/19 14:39 105 23 92 28 03/14/19 14:00 95 23 175/42 (86) 95 Mechanical Ventilator 28.00 03/14/19 13:00 109 19 152/41 (78) 91 Mechanical Ventilator 28.00 03/14/19 12:52 108 03/14/19 12:00 111 20 165/42 (83) 90 Mechanical Ventilator 28.00 03/14/19 12:00 92 Mechanical Ventilator 28 03/14/19 11:00 116 19 202/49 (99) 97 Mechanical Ventilator 28.00 03/14/19 10:37 104 19 98 28 03/14/19 10:00 96 15 208/50 (102) 98 Mechanical Ventilator 28.00 03/14/19 09:31 98 14 97 28 03/14/19 09:00 77 16 214/60 (111) 93 Mechanical Ventilator 28.00 03/14/19 08:00 96 Mechanical Ventilator 21 03/14/19 08:00 67 13 180/49 (92) 93 Mechanical Ventilator 28.00 03/14/19 07:33 Mechanical Ventilator 03/14/19 07:23 66 15 97 28 03/14/19 07:00 68 13 180/44 (89) 97 Mechanical Ventilator 28.00 03/14/19 06:58 67 03/14/19 06:11 35.18589 63 14 146/36 96 Mechanical Ventilator 28.00 03/14/19 06:00 64 14 140/36 (70) 94 Mechanical Ventilator 28.00 03/14/19 05:20 35.8 03/14/19 05:00 63 14 146/36 (72) 96 Mechanical Ventilator 28.00 I & O 03/15/19 07:00 Intake Total 3850 ml Output Total 5670 ml Balance -1820 ml Height & Weight Height: 5'5.00" Weight: 160lbs. 0.0oz. 72.349946xf; 21.79 BMI Method:Stated General Appearance: Chronically ill, Other (sedated on vent) HEENT: Other (intubated) Neck: Normal Inspection Respiratory: Decreased Breath Sounds, Other (on vent) Cardiovascular: Regular Rate, Rhythm, No Murmur Capillary Refill: Greater Than 3 Seconds Peripheral Pulses: 2+ Dorsalis Pedis (R), 2+ Left Dors-Pedis (L), 2+ Radial Pulses (R), 2+ Radial Pulses (L) Gastrointestinal: other (wound vac in place) Extremity: Pedal Edema, Swelling (upper and lower extremity) Neurologic/Psychiatric: Other (sedated, appears comfortabel) Skin: Warm/Dry Lymphatic: No Adenopathy Results Lab Laboratory Tests 03/14/19 02:45 03/15/19 03:47 Assessment/Plan Assessment/Plan Acute respiratory failure with hypoxia -was unable to wean patient yesterday -pt required increased sedation with increase of propofl from 22->50 -pt requires increased FiO2 today at 90% hypotension and episodes of bradycardia with episode of hypertension -Levophed is off -Cardene restarted when patient has episodes of HTN -D5LR running at 150cc/hr In: 3850 out: 6670 net: -2820 Lines: Raquel 200ml/hr propofol 50ml/hr TPN 56cc/hr D5LR 150ml/hr Fentanyl - 22ml/hr Anidulafuryin - 85ml/hr Hyperglycemia -Change to Q4 accu checks -pt's accu checks running in the low 200's (03/13) -accu checks in mid to upper 200's (03/14) -Continue D5 secondary to pt's severe malnutrition state. Acute worsening anemia s/p 4 units PRBC -Monitor -PT Hgb stable at 9.3 today recurrent perforated abdominal viscus x 3 s/p repeat surgeries with resections -Cont Merrem and Eraxis -status post small bowel resection and diverting ileostomy and WoundVac placement -pt had abd washout and WoundVac replacement yesterday (03/13) Protein jorge malnutrition with low albumin and anasarca - prealbumin - <3 -Clinimax 125cc/hr -D5LR to 50cc/hr -Pt has had very little if any PO intake since she was admitted on 02/24. -Pt currently on D5 to LR and continue Banana bag daily -Start TPN if OK with surgery -Will monitor for refeeding syndrome . -Mg 2.1, PO4 4.5, K 4.9 (03/14) Fungemia secondary to abdominal perforation -Repeat BC are negative -Repeat BC collected 03/07 -Eraxis Acute renal failure with anasarca -IVF and continue to monitor -pt has decreased urine output with dark concentrated urine -- Will give liter bolus of LR. (03/13) - Pt has better net fluid balance today with net output of -80ml Grade 1 diastolic dysfunction -Monitor Afib - currently sinus DM II Debility -PT/OT Overall prognosis is guarded to poor. Pt is still currently a full code MIKA MARTINEZ DO 03/15/19 0507: Subjective Time Seen by a Provider: 05:01 Subjective/Events-last exam Pt is now on TPN. Did not tolerate weaning yesterday. Will trail vent weaning again today. Exam Exam General Appearance: Chronically ill, Other (sedated on vent) HEENT: Other (intubated) Respiratory: Decreased Breath Sounds, Other (on vent) Cardiovascular: Regular Rate, Rhythm, No Murmur Gastrointestinal: other (wound vac in place) Extremity: Pedal Edema, Swelling (upper and lower extremity) Skin: Warm/Dry Lymphatic: No Adenopathy Assessment/Plan Assessment/Plan Acute respiratory failure with hypoxia -D/C propofol, continue fentanyl gtt. -continue TPN currently running at 56ml/hr. -D/C other IVF -Give bumex 2mg IV x 1 -Change vent to BiPAP 10/ decrease Fi02 to 30% -- check abg at 0600 -Pt has developed right lower lobe atelectasis with elevated right diaphragm. -- Will do bronchoscopy prior to extubation today. Will see how pt does with weaning. -Continue Cardene for BP <180 (Current SBP is 220) -was unable to wean patient yesterday -pt required increased sedation with increase of propofol from 22->50 -pt requires increased FiO2 today at 90% hypotension and episodes of bradycardia with episode of hypertension -Levophed is off -Cardene restarted when patient has episodes of HTN -D5LR running at 150cc/hr In: 3850 out: 6670 net: -2820 Lines: Raquel 200ml/hr propofol 50ml/hr TPN 56cc/hr D5LR 150ml/hr Fentanyl - 22ml/hr Anidulafuryin - 85ml/hr Hyperglycemia -Change to Q4 accu checks -pt's accu checks running in the low 200's (03/13) -accu checks in mid to upper 200's (03/14) -Continue D5 secondary to pt's severe malnutrition state. Acute worsening anemia s/p 4 units PRBC -Monitor -PT Hgb stable at 9.3 today recurrent perforated abdominal viscus x 3 s/p repeat surgeries with resections -Cont Merrem and Eraxis -status post small bowel resection and diverting ileostomy and WoundVac placement -pt had abd washout and WoundVac replacement yesterday (03/13) Protein jorge malnutrition with low albumin and anasarca - prealbumin - <3 -Clinimax 125cc/hr -D5LR to 50cc/hr -Pt has had very little if any PO intake since she was admitted on 02/24. -Pt currently on D5 to LR and continue Banana bag daily -Start TPN if OK with surgery -Will monitor for refeeding syndrome . -Mg 2.1, PO4 4.5, K 4.9 (03/14) Fungemia secondary to abdominal perforation -Repeat BC are negative -Repeat BC collected 03/07 -Eraxis Acute renal failure with anasarca -IVF and continue to monitor -pt has decreased urine output with dark concentrated urine -- Will give liter bolus of LR. (03/13) - Pt has better net fluid balance today with net output of -80ml Grade 1 diastolic dysfunction -Monitor Afib - currently sinus DM II Debility -PT/OT Supervisory-Addendum Brief Verification & Attestation Participated in pt care: history, physical Personally performed: exam, history Care discussed with: Medical Student Procedures: n/a Verification and Attestation of Medical Student E/M Service A medical student performed and documented this service in my presence. I reviewed and verified all information documented by the medical student and made modifications to such information, when appropriate. I personally performed the physical exam and medical decision making. Mika Martinez, Mar 16, 2019,05:33 LILA VAUGHN MEDICAL STUDENT Mar 15, 2019 04:13 MIKA VERDUGO DO Mar 15, 2019 05:07 POS
[2019-03-15 04:15] LABS: BUN/CREATININE RATIO 74; CALCIUM 6.9 MG/DL (8.5-10.1); CARBON DIOXIDE 19 MMOL/L (21-32); CHLORIDE 112 MMOL/L (98-107); CREATININE SERUM 0.72 MG/DL (0.60-1.30); GFR ESTIMATED > 60; GLUCOSE 204 MG/DL (70-105); MAGNESIUM 1.8 MG/DL (1.6-2.4); PHOSPHORUS 3.7 MG/DL (2.3-4.7); SODIUM 139 MMOL/L (135-145); TRIGLYCERIDES 388 MG/DL (<150)
[2019-03-15] MEDS ORDERED: BUMETANIDE 1 MG/4 ML (BUMEX) VIAL IV ONE (04:45)
[2019-03-15] MEDS: fentaNYL INJECTION 1,250 MCG in NS (IVPB) 250 ML IV SCH (04:57)
[2019-03-15] MEDS: niCARdipine IV 50 MG in NS (IVPB) 230 ML IV SCH ×3 (04:57→22:24)
[2019-03-15] MEDS ORDERED: BUMETANIDE 1 MG/4 ML (BUMEX) VIAL ONE (04:59)
[2019-03-15] MEDS ORDERED: MAGNESIUM 1 GM/100 ML IVPB 100 ML IV ONE (05:00)
[2019-03-15] MEDS: POTASSIUM CL 10MEQ/50ML IVPB 50 ML IV SCH (05:17)
[2019-03-15] MEDS: MAGNESIUM 1 GM/100 ML IVPB 100 ML IV SCH (05:18)
[2019-03-15] MEDS: KCL 20 MEQ TAB (K-DUR) PO SCH (05:18)
[2019-03-15] MEDS ORDERED: niCARdipine IV FOR DRIP 50 MG KIT ONE ×2 (05:57→22:15)
[2019-03-15] MEDS ORDERED: NS (IVPB) 250 ML ONE ×2 (05:57→22:14)
[2019-03-15 06:13] LABS: ABG BASE EXCESS -0.4 MMOL/L (-2.5-2.5); ABG OXYGEN SATURATION 91 % (94-100); ABG PCO2 31 MMHG (35-45); ABG PH 7.48 (7.37-7.43); ABG PO2 57 MMHG (79-93); ABG TCO2 23.8 MMOL/L (21.0-31.0)
[2019-03-15 06:23] LABS: ALLENS TEST POSITIVE; INSPIRED O2 30%; PATIENT TEMP 36.3; VENTILATOR YES
[2019-03-15] MEDS: RT-IPRATROPIUM (ATROVENT) 0.5MG/2.5ML AMP IH SCH ×4 (06:32→18:39)
[2019-03-15] MEDS ORDERED: fentaNYL INJECTION 100 MCG/2 ML AMP ONE (07:35)
[2019-03-15] MEDS ORDERED: proPOfol 200 MG/20 ML (DIPRIVAN) VIAL IV ONE (07:35)
--- NOTE | 2019-03-15 07:51 | Diagnostic Imaging Report ---
INDICATION: Intubation. COMPARISON: 03/14/2019 TECHNIQUE: Single frontal radiograph of the chest dated 03/15/2019. FINDINGS: Endotracheal tube, right-sided PICC line, and enteric catheter are again identified and stable. Left-sided PICC line is also unchanged. The cardiac silhouette is mildly enlarged, though stable. Minimal central pulmonary vascular congestion, improved since the prior examination. Previously noted left-sided small pleural-parenchymal opacity has improved. Moderate right-sided pleural-parenchymal opacity appears slightly more dense. No pneumothorax. Scattered osseous degenerative changes without acute osseous abnormality. IMPRESSION: Improved central pulmonary vascular congestion with slightly improved small left pleural effusion. Slightly worsened moderate sized right-sided pleural parenchymal opacity, felt to predominantly relate to pleural fluid though additional atelectasis and/or infiltrate is likely. Unchanged lines and tubes. Dictated by: Dictated on workstation # [id number]
--- NOTE | 2019-03-15 07:54 | Physical Therapy Progress Note ---
Therapy Progress Note Patient intubated and sedated. PT will continue to monitor patient. CHIDI AMAYA PT Mar 15, 2019 07:54 POS
--- NOTE | 2019-03-15 08:04 | Pulmonary Procedures ---
Pulmonary Procedures Date of Procedure Date of Service: Mar 15, 2019 Bronch Bronchoscopy with bilateral bronchial washes. Preop DX Mucous plugging atelectasis Postop DX: same Complications: none After informed consent obtained and formal time out pt was sedated using Fentanyl and propofol . Bronchoscope was advanced through the ET tube . 1% lidocaine was used to anesthetize vocal cords, epiglottis, nomi, and left/right main stem bronchus. An anatomical tour was undertaken down to the segmental bronchi bilaterally. No endobronchial lesions noted. Bronchoscopy with bilateral bronchial washes. were obtained. Pt tolerated procedure well. No complications noted. Stat CXR is pending. JAZMYNE THOMPSON DO Mar 15, 2019 08:04 POS
--- NOTE | 2019-03-15 08:25 | Progress Note - Surgery ---
BECCA CHANDLER MED STUDENT 03/15/19 0825: Subjective Date Seen by a Provider: Mar 15, 2019 Time Seen by a Provider: 07:15 Subjective/Events-last exam On ventilator, awake today. Was not able to communicate for ROS, she did nod her head when I introduced myself but did not respond to anything else I said or asked. Spoke to her family and her nurse, who both said she has been awake and nodding in response to questions. She has had 1800 mL of urine output overnight, 1500mL drainage from woundvac and 150mL total drainage for MARKUS tubes. All drainage is serosanguineous. She was about to undergo bronchoscopy when I saw her, may be off ventilator today. CXR shows improved central pulmonary vascular congestion with slightly improved small left pleural effusion, slightly worsened moderate sized right-sided pleural parenchymal opacity, felt to predominantly relate to pleural fluid though additional atelectasis and/or infiltrate is likely. Focused Exam Time of Focused Exam: 22:00 Objective Exam Vital Signs Date Time Temp Pulse Resp B/P (MAP) Pulse Ox O2 Delivery O2 Flow Rate FiO2 03/15/19 08:00 99 29 185/37 (86) 99 Mechanical Ventilator 30.00 03/15/19 07:00 103 18 184/42 (89) 98 Mechanical Ventilator 30.00 03/15/19 06:46 97 03/15/19 06:00 92 17 211/44 (99) 100 Mechanical Ventilator 30.00 03/15/19 05:00 79 16 226/47 (106) 100 Mechanical Ventilator 30.00 03/15/19 04:59 Mechanical Ventilator 30.00 03/15/19 04:00 94 Mechanical Ventilator 40 03/15/19 04:00 69 12 152/41 (78) 100 Mechanical Ventilator 90.00 03/15/19 03:28 Mechanical Ventilator 90.00 03/15/19 03:00 85 15 172/45 (87) 98 Mechanical Ventilator 100.00 03/15/19 02:58 Mechanical Ventilator 100.00 03/15/19 02:43 96 15 93 100 03/15/19 02:00 90 15 186/48 (94) 96 Mechanical Ventilator 80.00 03/15/19 01:58 202/54 03/15/19 01:00 85 03/15/19 01:00 81 14 156/49 (84) 100 Mechanical Ventilator 80.00 03/15/19 00:54 Mechanical Ventilator 80.00 03/15/19 00:00 94 Mechanical Ventilator 40 03/15/19 00:00 73 14 107/39 (61) 100 Mechanical Ventilator 40.00 03/14/19 23:00 79 12 92/38 (56) 100 Mechanical Ventilator 40.00 03/14/19 22:00 94 17 150/46 (80) 100 Mechanical Ventilator 40.00 03/14/19 22:00 148/65 03/14/19 21:30 107 21 90 100 03/14/19 21:00 106 23 175/51 (92) 90 Mechanical Ventilator 40.00 03/14/19 20:00 94 Mechanical Ventilator 40 03/14/19 20:00 96 21 173/49 (90) 91 Mechanical Ventilator 40.00 03/14/19 19:06 105 25 90 40 03/14/19 19:00 109 03/14/19 19:00 109 22 133/44 (73) 93 Mechanical Ventilator 40.00 03/14/19 18:00 135 23 169/53 (91) 91 Mechanical Ventilator 28.00 03/14/19 17:00 105 24 174/44 (87) 93 Mechanical Ventilator 28.00 03/14/19 16:51 94 Mechanical Ventilator 28 03/14/19 16:00 107 29 181/46 (91) 96 Mechanical Ventilator 28.00 03/14/19 15:00 107 24 185/45 (91) 92 Mechanical Ventilator 28.00 03/14/19 14:39 105 23 92 28 03/14/19 14:00 95 23 175/42 (86) 95 Mechanical Ventilator 28.00 03/14/19 13:00 109 19 152/41 (78) 91 Mechanical Ventilator 28.00 03/14/19 12:52 108 03/14/19 12:00 111 20 165/42 (83) 90 Mechanical Ventilator 28.00 03/14/19 12:00 92 Mechanical Ventilator 28 03/14/19 11:00 116 19 202/49 (99) 97 Mechanical Ventilator 28.00 03/14/19 10:37 104 19 98 28 03/14/19 10:00 96 15 208/50 (102) 98 Mechanical Ventilator 28.00 03/14/19 09:31 98 14 97 28 03/14/19 09:00 77 16 214/60 (111) 93 Mechanical Ventilator 28.00 I & O 03/15/19 07:00 Intake Total 5345 ml Output Total 7425 ml Balance -2080 ml Capillary Refill : Less Than 3 SecondsGreater Than 3 Seconds General Appearance: Chronically ill, Other (on vent) HEENT: Other (intubated) Neck: Normal Inspection, Supple Respiratory: Decreased Breath Sounds, Other (on vent) Cardiovascular: Regular Rate, Rhythm, Normal Peripheral Pulses, Systolic Murmur Peripheral Pulses: 2+ Dorsalis Pedis (R), 2+ Left Dors-Pedis (L), 2+ Radial Pulses (R), 2+ Radial Pulses (L) Gastrointestinal: normal bowel sounds, other (wound vac in place) Extremity: Pedal Edema, Swelling (upper and lower extremity) Neurologic/Psychiatric: Alert, Other (on vent, not able to communicate much) Skin: Warm/Dry, Pallor Lymphatic: No Adenopathy Results Lab Laboratory Tests 03/14/19 08:35: Glucometer 250H 03/14/19 08:45: Prealbumin 24.5 03/14/19 10:15: Blood Gas Puncture Site ARTLINE, Blood Gas Patient Temperature 36.5, Arterial Blood pH 7.47H, Arterial Blood Partial Pressure CO2 32L, Arterial Blood Partial Pressure O2 59L, Arterial Blood HCO3 23, Arterial Blood Total CO2 24.3, Arterial Blood Oxygen Saturation 93L, Arterial Blood Base Excess -0.1, Kenny Test ART LINE, Blood Gas Ventilator Setting YES, Blood Gas Inspired Oxygen 28% 03/14/19 11:43: Glucometer 243H 03/14/19 15:50: Glucometer 234H 03/14/19 20:24: Glucometer 232H 03/15/19 00:39: Glucometer 220H 03/15/19 03:47: White Blood Count 12.1H, Red Blood Count 3.11L, Hemoglobin 9.4L, Hematocrit 29L, Mean Corpuscular Volume 92, Mean Corpuscular Hemoglobin 30, Mean Corpuscular Hemoglobin Concent 33, Red Cell Distribution Width 16.5H, Platelet Count 162, Mean Platelet Volume 9.9, Neutrophils (%) (Auto) 90H, Lymphocytes (%) (Auto) 3L, Monocytes (%) (Auto) 7, Eosinophils (%) (Auto) 0, Basophils (%) (Auto) 0, Neutrophils # (Auto) 10.8H, Lymphocytes # (Auto) 0.4L, Monocytes # (Auto) 0.8, Eosinophils # (Auto) 0.0, Basophils # (Auto) 0.0, Blood Gas Puncture Site RIGHT ARTLINE, Blood Gas Patient Temperature 37, Arterial Blood pH 7.43, Arterial Blood Partial Pressure CO2 36, Arterial Blood Partial Pressure O2 110H, Arterial Blood HCO3 23, Arterial Blood Total CO2 24.5, Arterial Blood Oxygen Saturation 99, Arterial Blood Base Excess -0.4, Kenny Test ARTLINE, Blood Gas Ventilator Setting YES, Blood Gas Inspired Oxygen 90%, Sodium Level 139, Potassium Level 5.0, Chloride Level 112H, Carbon Dioxide Level 19L, Anion Gap 8, Blood Urea Nitrogen 53H, Creatinine 0.72, Estimat Glomerular Filtration Rate > 60, BUN/Creatinine Ratio 74, Glucose Level 204H, Calcium Level 6.9L, Phosphorus Level 3.7, Magnesium Level 1.8, B-Type Natriuretic Peptide 296.2H, Triglycerides Level 388H 03/15/19 06:05: Blood Gas Puncture Site RIGHT ARTLINE, Blood Gas Patient Temperature 36.3, A rterial Blood pH 7.48H, Arterial Blood Partial Pressure CO2 31L, Arterial Blood Partial Pressure O2 57L, Arterial Blood HCO3 23, Arterial Blood Total CO2 23.8, Arterial Blood Oxygen Saturation 91L, Arterial Blood Base Excess -0.4, Kenny Test POSITIVE, Blood Gas Ventilator Setting YES, Blood Gas Inspired Oxygen 30% Microbiology 03/07/19 Blood Culture - Final, Complete No growth 03/08/19 Gram Stain - Final, Complete 03/08/19 Sputum Culture - Final, Complete No growth 02/24/19 Urine Culture - Final, Complete NO GROWTH 03/05/19 Gram Stain - Final, Complete 03/05/19 Anaerobic Culture - Final, Complete No anaerobes isolated 03/05/19 Surgical Culture - Final, Complete Marilia species Assessment/Plan Assessment/Plan Assessment/Plan s/p abdominal washout and fascial clowure with vicryl mesh, wound vac placed Wound vac to be changed today, it is changed --, continue with TPN, pain management. Will see how well she does off ventilator. Clinical Quality Measures DVT/VTE Risk/Contraindication: Risk Factor Score Per Nursin RFS Level Per Nursing on Admit: 4+=Very High MISSY MONTEJO DO 03/15/19 1021: Subjective Time Seen by a Provider: 09:52 Subjective/Events-last exam Pt seen and examined, still intubated. Wound care at bedside changing VAC. Assessment/Plan Assessment/Plan Assessment/Plan S/P Fascial Closure Plan is to extubate pt today, VAC drainage and SONIA drainage is serous. Will start TPN and monitor pt. Supervisory-Addendum Brief Verification & Attestation Participated in pt care: history, MDM, physical Personally performed: exam, history Care discussed with: Medical Student Procedures: n/a Verification and Attestation of Medical Student E/M Service A medical student performed and documented this service in my presence. I reviewed and verified all information documented by the medical student and made modifications to such information, when appropriate. I personally performed the physical exam and medical decision making. Missy Montejo, Mar 15, 2019,10:21 BECCA CHANDLER MED STUDENT Mar 15, 2019 08:25 MISSY JAMES DO Mar 15, 2019 10:21 POS
--- NOTE | 2019-03-15 08:36 | Diagnostic Imaging Report ---
INDICATION: Post bronchoscopy. COMPARISON: 03/15/2019 at 0333 hours. TECHNIQUE: Single frontal radiograph of the chest dated 03/15/2019 at 0810 hours. FINDINGS: Bilateral PICC lines, endotracheal tube, and enteric catheter are again identified and stable. The cardiac silhouette is within normal limits in size. No significant pulmonary vascular congestion. Persistent left basilar pulmonary opacities, slightly worsened since the prior examination. Moderate right basilar pleural-parenchymal opacity is again identified, improved since the prior examination. No pneumothorax. Osseous structures are stable. Possible bibasilar chest tubes. IMPRESSION: Improved though persistent moderate right basilar pleural-parenchymal opacity. Slightly worsened small left basilar pleural-parenchymal opacity. The remainder of the examination appears similar. Dictated by: Dictated on workstation # [id number]
--- NOTE | 2019-03-15 08:57 | Cardiology Progress Note ---
Subjective Date Seen by Provider: Mar 15, 2019 Time Seen by Provider: 08:56 Subjective/Events-last exam Patient is sedated and intubated. Review of Systems General: Other (Unable to provide review of systems) Focused Exam Time of Focused Exam: 22:00 Objective-Cardiology Exam Last Set of Vital Signs Vital Signs 03/14/19 03/15/19 03/15/19 06:11 08:00 08:29 Temp 35.47758 Pulse 99 Resp 29 B/P (MAP) 185/37 (86) Pulse Ox 99 O2 Delivery Mechanical Ventilator O2 Flow Rate 35.00 Capillary Refill : Less Than 3 SecondsGreater Than 3 Seconds I&O Intake and Output 03/15/19 00:00 Intake Total 3950 ml Output Total 6670 ml Balance -2720 ml Intake Oral 0 ml IV Total 3950 ml Output Urine Total 2100 ml Gastric Drainage Total 300 ml Drainage Total 4270 ml General: Other (sedated and intubated) HEENT: Atraumatic Neck: Supple, No Thyromegaly Lungs: Normal Air Movement, Other (Bilateral rhonchi) Heart: Regular Rate, Normal S1, Normal S2, No Murmurs Abdomen: No Masses, Other (Diminished bowel sounds) Extremities: No Clubbing, No Cyanosis, Normal Pulses, No Tenderness/Swelling, Other (Bilateral edema) Skin: No Rashes Neuro: Other (Sedated and intubated) Psych/Mental Status: Mental Status NL, Other (Sedated and intubated) Results Lab Laboratory Tests 03/15/19 03:47 A/P-Cardiology Admission Diagnosis Acute respiratory failure Paroxysmal atrial fibrillation Coronary artery disease Hypertension Assessment/Plan Sepsis, multiple abdominal surgery, had bowel resection and diverting ileostomy, last procedure was done on March 13, 2019 showing no further leak, had wound VAC applied and washout, recovering slowly Respiratory failure, vent dependent, sedated Labile blood pressure, currently elevated blood pressure, continue with IV Lopressor and will use Cardene drip Anemia, multiple blood transfusion, continue to monitor Fungemia, sepsis, managed by primary care team Paroxysmal atrial fibrillation, currently in sinus rhythm, continue to monitor S/p small bowel resection secondary to perf at anastomosis site, had multiple surgery for recurrent perforation, had SB resection with diverting ileostomy and lavage on 03/11, had another surgery on March 13, 2019 with evaluation for any further leak, had a wound VAC. Managed by surgical team Anasarca, use Lasix as needed and monitor urine output and renal function Coronary artery disease, history of cardiac catheterization in July 2012 showing 50 percent midright coronary artery stenosis, nonobstructive disease, had a borderline disease in the midright coronary artery. Most recent cardiac catheterization done April 2018 revealed mild ectasia in the proximal LAD with mild disease in the mid LAD, small vessel disease distally, mild ectasia in the proximal circumflex artery and 40-50 percent stenosis in the mid right coronary artery, nonobstructive disease, continue to monitor History of colon cancer, history of colon resection and colostomy in the remote past has been in remission and followed by Dr. Branham History of hyperlipidemia Carotid artery stenosis , continue to monitor as outpatient. Syncope, had a syncopal episode in October 2015 probably due to dehydration. Was in renal failure. Improved. History of thyroid nodules noted on ultrasound, followed by Dr. Branham and Dr. Simmons Diabetes mellitus, followed and managed by primary care physician. History of colon cancer, history of colostomy. Currently in remission. Followed by Dr. Branham Family history of coronary artery disease. Obstructive sleep apnea, intolerance to CPAP History of appendectomy, kidney stones, hysterectomy. Breast biopsy. Clinical Quality Measures DVT/VTE Risk/Contraindication: Risk Factor Score Per Nursin RFS Level Per Nursing on Admit: 4+=Very High NAYA URIAS MD Mar 15, 2019 08:57 POS
--- NOTE | 2019-03-15 09:07 | Progress Note - Hospitalist ---
Subjective HPI/CC On Admission Date Seen by Provider: Mar 15, 2019 Time Seen by Provider: 08:57 abdominal pain Subjective/Events-last exam Pt remains intubated and extubated. Discussed with Dr Martinez and plans to bronch her today and possible extubate if it goes well. Focused Exam Time of Focused Exam: 22:00 Objective Exam Vital Signs Vital Signs Date Time Temp Pulse Resp B/P (MAP) Pulse Ox O2 Delivery O2 Flow Rate FiO2 03/15/19 08:29 Mechanical Ventilator 35.00 03/15/19 08:00 99 29 185/37 (86) 99 03/15/19 04:00 40 03/14/19 06:11 35.72921 Capillary Refill : Less Than 3 SecondsGreater Than 3 Seconds General Appearance: Chronically ill, Other (sedated on vent) HEENT: Other (tearing) Respiratory: Decreased Breath Sounds; No Rhonci, No Wheezing; Other (on vent) Cardiovascular: Regular Rate, Rhythm, No Murmur Gastrointestinal: Normal Bowel Sounds, Non Tender, Soft Neurologic/Psychiatric: Other (sedated but eyes open) Results/Procedures Lab Laboratory Tests 03/15/19 03:47 Patient resulted labs reviewed. Imaging: Reviewed Imaging Report Assessment/Plan Assessment and Plan Assess & Plan/Chief Complaint Perforated abdominal viscus -Management per primary -Continue meropenem and eraxis -Multiple abdominal surgeries this admission- doing well following surgery on 03/13 - Wound vac in place, ostomies in place Acute hypoxemic respiratory failure -Currently intubated- plan to wean today following bronch -Pulmonology following Lactic acidosis, resolved Shock -continue stress dose steroids remain- consider weaning as able Acute kidney injury- resolved Hypernatremia, resolved -Cr stable, UOP low but trending up -Monitor UOP closely Severe protein-calorie malnutrition -Continue TPN -Prealbumin <3 Fungemia -Continue Eraxis -repeat blood cultures negative Will need 14 days treatment from negative blood cultures- consider DCing next week if remains stable Postoperative anemia -Hgb improved post-transfusion, stable -Continue to monitor Hypertension -Hydralazine prn Paroxysmal atrial fibrillation -Cardiology following T2DM - Sliding scale insulin - On sliding scale, D5 decreased -If remains high with lower dose d5 will add levemir Critical illness myopathy -PT/OT -Will require acute rehab vs LTAC vs SNF on discharge Critical Care Critically Ill Patient Diagnosis/Problems Diagnosis/Problems (1) Shock Status: Resolved Resolution Date/Time: 03/13/19 @ 09:27 (2) Acute respiratory failure Status: Acute Qualifiers: Respiratory failure complication: unspecified whether with hypoxia or hypercapnia Qualified Codes: J96.00 - Acute respiratory failure, unspecified whether with hypoxia or hypercapnia (3) Fungemia Status: Acute (4) Atrial fibrillation with RVR (5) Perforated abdominal viscus Status: Acute (6) Acute renal failure Status: Acute Qualifiers: Acute renal failure type: with acute tubular necrosis Qualified Codes: N17.0 - Acute kidney failure with tubular necrosis (7) Hypovolemia dehydration Status: Acute (8) Bilateral pleural effusion Status: Acute (9) IDDM (insulin dependent diabetes mellitus) Status: Chronic (10) Lactic acidosis Status: Acute (11) UTI (urinary tract infection) Status: Resolved Qualifiers: Urinary tract infection type: acute cystitis Hematuria presence: without hematuria Qualified Codes: N30.00 - Acute cystitis without hematuria Resolution Date/Time: 02/27/19 @ 08:40 Clinical Quality Measures DVT/VTE Risk/Contraindication: Risk Factor Score Per Nursin RFS Level Per Nursing on Admit: 4+=Very High ABIGAIL PORTER MD Mar 15, 2019 09:07 POS
[2019-03-15] MEDS ORDERED: LIDOCAINE PF 1% 2 ML VIAL IJ ONE (09:55)
[2019-03-15] MEDS: RT-FLUTICASONE 220 MCG (FLOVENT) PER PUFF INH SCH ×2 (10:09→18:39)
[2019-03-15 10:45] LABS: ABG BASE EXCESS 0.6 MMOL/L (-2.5-2.5); ABG OXYGEN SATURATION 95 % (94-100); ABG PCO2 30 MMHG (35-45); ABG PH 7.51 (7.37-7.43); ABG PO2 69 MMHG (79-93); ABG TCO2 24.4 MMOL/L (21.0-31.0)
[2019-03-15] MEDS: ANIDULAFUNGIN INJECTION 100 MG in NS (IVPB) 100 ML IV SCH (10:46)
[2019-03-15] MEDS: PANTOPRAZOLE 40 MG (PROTONIX) VIAL IV SCH (10:46)
[2019-03-15 10:47] LABS: ALLENS TEST ART LINE; INSPIRED O2 35%; PATIENT TEMP 36.5; VENTILATOR YES
--- NOTE | 2019-03-15 14:38 | NUR ---
Follow up visit: pt's eyes were open, however she did not respond verbally or nonverbally. Offered soothing touch and supportive words of kindness.
[2019-03-15] MEDS ORDERED: [UNRECOGNIZED DRUG - OTHER] IV SCH ×11 (17:00)
[2019-03-15] MEDS ORDERED: POTASSIUM CHLORIDE IV SCH ×11 (17:00)
[2019-03-15] MEDS ORDERED: SODIUM ACETATE IV SCH ×11 (17:00)
[2019-03-16] VITALS (28 sets, daily range): BP systolic 130–206; BP diastolic 30–48
[2019-03-16 02:47] LABS: ABG BASE EXCESS 1.8 MMOL/L (-2.5-2.5); ABG OXYGEN SATURATION 95 % (94-100); ABG PCO2 33 MMHG (35-45); ABG PH 7.49 (7.37-7.43); ABG PO2 67 MMHG (79-93); ABG TCO2 26.3 MMOL/L (21.0-31.0); BASOPHILS % (AUTO) 0 % (0-10); EOSINOPHILS # (AUTO) 0.1 10^3/uL (0.0-0.3); EOSINOPHILS % (AUTO) 0 % (0-10); HEMATOCRIT 32 % (35-52); HEMOGLOBIN 10.7 G/DL (11.5-16.0); LYMPHOCYTES # (AUTO) 0.5 X 10^3 (1.0-4.0); LYMPHOCYTES % (AUTO) 3 % (12-44); MEAN CORPUSCULAR HGB CONC 34 G/DL (32-36); MEAN CORPUSCULAR VOLUME 91 FL (80-99); MEAN PLATELET VOLUME 10.2 FL (7.4-10.4); MONOCYTES # (AUTO) 1.2 X 10^3 (0.0-1.0); MONOCYTES % (AUTO) 7 % (0-12); NEUTROPHILS # (AUTO) 14.3 X 10^3 (1.8-7.8); NEUTROPHILS % (AUTO) 89 % (42-75); PLATELET COUNT 193 10^3/uL (130-400); RED CELL DISTRIBUTION WIDTH 17.4 % (10.0-14.5); WHITE BLOOD COUNT 16.1 10^3/uL (4.3-11.0)
[2019-03-16] MEDS: inSUlin ASPART (NovoLOG) 1 UNIT/0.01 ML (CHARGE PER UNIT) SQ SCH ×6 (02:54→21:07)
[2019-03-16 02:57] LABS: MEAN CORPUSCULAR HEMOGLOBIN 30 PG (25-34)
[2019-03-16 02:58] LABS: ALLENS TEST ARTLINE; INSPIRED O2 30%; PATIENT TEMP 35.2; VENTILATOR NO
[2019-03-16 03:14] LABS: BUN/CREATININE RATIO 91; CALCIUM 7.2 MG/DL (8.5-10.1); CARBON DIOXIDE 23 MMOL/L (21-32); CHLORIDE 113 MMOL/L (98-107); GFR ESTIMATED > 60; GLUCOSE 143 MG/DL (70-105); PHOSPHORUS 4.3 MG/DL (2.3-4.7); POTASSIUM 4.5 MMOL/L (3.6-5.0); SODIUM 144 MMOL/L (135-145); TRIGLYCERIDES 344 MG/DL (<150)
[2019-03-16] MEDS: MEROPENEM 500 MG/SWFI 10 ML IV PUSH IV SCH ×6 (03:28→18:22)
[2019-03-16] MEDS ORDERED: niCARdipine IV FOR DRIP 50 MG KIT ONE (04:33)
[2019-03-16] MEDS ORDERED: NS (IVPB) 250 ML ONE (04:33)
[2019-03-16] MEDS: niCARdipine IV 50 MG in NS (IVPB) 230 ML IV SCH ×2 (04:44→11:43)
[2019-03-16] MEDS ORDERED: BUMETANIDE 1 MG/4 ML (BUMEX) VIAL IV ONE (05:30)
--- NOTE | 2019-03-16 05:40 | Pulmonary Progress Note ---
Subjective Time Seen by a Provider: 05:34 Subjective/Events-last exam Currently on BiPAP. Pt has been hypertensive through the night. Sepsis Event Evaluation Height, Weight, BMI Height: 5'5.00" Weight: 160lbs. 0.0oz. 72.843198pw; 21.79 BMI Method:Stated Focused Exam Time of Focused Exam: 22:00 Exam Exam Vital Signs Date Time Temp Pulse Resp B/P (MAP) Pulse Ox O2 Delivery O2 Flow Rate FiO2 03/16/19 05:00 99 22 183/46 (91) 100 NIV Bilevel 30.00 03/16/19 04:00 96 NIV Bilevel 30 03/16/19 04:00 110 21 188/47 (94) 100 NIV Bilevel 30.00 03/16/19 03:00 101 21 178/47 (90) 100 NIV Bilevel 30.00 03/16/19 02:03 101 19 100 30.00 03/16/19 02:00 101 22 194/46 (95) 100 NIV Bilevel 30.00 03/16/19 01:00 106 03/16/19 01:00 103 22 185/45 (91) 100 NIV Bilevel 30.00 03/16/19 00:00 96 NIV Bilevel 30 03/16/19 00:00 113 22 193/48 (96) 100 NIV Bilevel 30.00 03/15/19 23:00 105 22 192/48 (96) 97 NIV Bilevel 30.00 03/15/19 22:00 111 23 190/46 (94) 97 NIV Bilevel 30.00 03/15/19 21:58 112 28 97 30.00 03/15/19 21:00 108 20 187/41 (89) 97 Vapotherm 25.00 20.00 03/15/19 20:00 96 Vapotherm 20.00 25 03/15/19 20:00 35.5 03/15/19 20:00 99 17 183/39 (87) 100 Vapotherm 25.00 20.00 03/15/19 19:00 100 03/15/19 19:00 101 21 182/40 (87) 99 Vapotherm 25.00 20.00 03/15/19 18:41 99 Vapotherm 20.00 25 03/15/19 18:39 99 Vapotherm 20.00 25 03/15/19 18:00 96 16 180/38 (85) 100 Vapotherm 25.00 20.00 03/15/19 17:00 94 20 180/39 (86) 99 Vapotherm 25.00 20.00 03/15/19 16:18 36.3 03/15/19 16:00 96 Vapotherm 25 03/15/19 16:00 93 18 177/40 (85) 100 Vapotherm 25.00 20.00 03/15/19 15:00 101 21 166/34 (78) 99 Vapotherm 25.00 20.00 03/15/19 14:23 99 Vapotherm 20.00 30 03/15/19 14:00 93 17 171/34 (79) 98 Vapotherm 25.00 20.00 03/15/19 13:45 Vapotherm 25.00 20.00 03/15/19 13:00 98 18 162/34 (76) 100 Vapotherm 25.00 35.00 03/15/19 12:41 98 03/15/19 12:00 96 Vapotherm 25 03/15/19 12:00 103 20 170/35 (80) 97 Vapotherm 25.00 35.00 03/15/19 11:51 36.4 03/15/19 11:12 Vapotherm 25.00 35.00 03/15/19 11:00 96 19 154/30 (71) 100 Mechanical Ventilator 30.00 03/15/19 10:09 98 23 100 25 03/15/19 10:00 97 19 169/40 (83) 97 Mechanical Ventilator 30.00 03/15/19 09:00 90 20 146/32 (70) 100 Mechanical Ventilator 30.00 03/15/19 08:29 Mechanical Ventilator 35.00 03/15/19 08:00 94 Mechanical Ventilator 30 03/15/19 08:00 99 29 185/37 (86) 99 Mechanical Ventilator 30.00 03/15/19 07:30 36.8 03/15/19 07:00 103 18 184/42 (89) 98 Mechanical Ventilator 30.00 03/15/19 06:46 97 03/15/19 06:32 102 33 99 25 03/15/19 06:00 92 17 211/44 (99) 100 Mechanical Ventilator 30.00 I & O 03/16/19 07:00 Intake Total 520 ml Output Total 5348 ml Balance -4828 ml Height & Weight Height: 5'5.00" Weight: 160lbs. 0.0oz. 72.114276mw; 21.79 BMI Method:Stated General Appearance: Chronically ill, Mild Distress HEENT: PERRL/EOMI Neck: Normal Inspection, Supple Respiratory: Decreased Breath Sounds Cardiovascular: Regular Rate, Rhythm, No Murmur Capillary Refill: Less Than 3 Seconds Peripheral Pulses: 2+ Dorsalis Pedis (R), 2+ Left Dors-Pedis (L), 2+ Radial Pulses (R), 2+ Radial Pulses (L) Gastrointestinal: normal bowel sounds, non tender, soft, other (wound vac in place) Extremity: Pedal Edema, Swelling (upper and lower extremity) Neurologic/Psychiatric: Alert, Oriented x3, Other (sedated but eyes open) Skin: Warm/Dry Lymphatic: No Adenopathy Results Lab Laboratory Tests 03/15/19 03:47 03/16/19 02:38 Assessment/Plan Assessment/Plan Acute respiratory failure with hypoxia -continue TPN -Give bumex 2mg IV x 1 -Contiue BiPAP from 8pm -5am then use Vapotherm - add heated humidity to BiPAP -DUoneb with easy PAP Q4 -Continue Cardene for BP <180 (Current SBP is 220) -Start zyvox after repeat cultures secondary to worsening leukocytosis -Repeat farmer cultures. blood urine, and body fluid from SONIA drain Hypertension -Cardene- Continue Atelectasis s/p Bronchoscopy -Await farmer cultures --DUoneb with easy PAP Q4 Hyperglycemia -Change to Q4 accu checks -pt's accu checks running in the low 200's (03/13) -accu checks in mid to upper 200's (03/14) -Continue D5 secondary to pt's severe malnutrition state. anemia s/p 4 units PRBC -Monitor recurrent perforated abdominal viscus -Cont Merrem and Eraxis -status post small bowel resection and diverting ileostomy and WoundVac placement Protein jorge malnutrition with low albumin and anasarca - prealbumin - <3 -Continue TPN Fungemia secondary to abdominal perforation -Eraxis Grade 1 diastolic dysfunction -Monitor Afib - currently sinus DM II Debility -PT/OT JAZMYNE THOMPSON DO Mar 16, 2019 05:40 POS
[2019-03-16] MEDS: RT-FLUTICASONE 220 MCG (FLOVENT) PER PUFF INH SCH ×2 (06:44→18:05)
[2019-03-16] MEDS: RT-ALBUTEROL/IPRATROPIUM 3 ML (DUONEB) VIAL INH SCH ×3 (06:44→14:34)
--- NOTE | 2019-03-16 06:55 | Diagnostic Imaging Report ---
INDICATION: Dyspnea. Comparison made with prior examination of 03/15/2019. FINDINGS: There is cardiomegaly. There is right basilar consolidation and right pleural effusion. There is no pneumothorax. Lines and tubes in satisfactory position. There is some venous congestion. There is some left basilar atelectasis and/or pneumonitis. IMPRESSION: Extensive right basilar consolidation suspect for pneumonia with right pleural effusion. Mild left basilar subsegmental atelectasis and/or pneumonitis. Cardiomegaly and mild central pulmonary venous congestion. Dictated by: Dictated on workstation # [id number]
[2019-03-16] MEDS: POTASSIUM CL 10MEQ/50ML IVPB 50 ML IV SCH (06:56)
[2019-03-16] MEDS: MAGNESIUM 1 GM/100 ML IVPB 100 ML IV SCH (06:57)
[2019-03-16] MEDS: KCL 20 MEQ TAB (K-DUR) PO SCH (06:57)
--- NOTE | 2019-03-16 08:55 | Occupational Therapy Eval ---
OT Evaluation-General/PLF Medical Diagnosis Admission Date Feb 25, 2019 at 11:11 Medical Diagnosis: post op complications/bowel perforation Onset Date: Feb 24, 2019 Therapy Diagnosis Therapy Diagnosis: impaired ADLs and functional mobility Height/Weight Height (Feet): 5 Height (Inches): 5.00 Weight (Pounds): 160 Weight (Ounces): 0.0 Precautions Precautions/Isolations: Aspiration, Fall Prevention, Standard Precautions Safety Interventions: None Weight Bear Status Weight Bearing Restriction: Weight Bearing/Tolerated Referral Physician: Harper Referral Reason: Activity Tolerance, Self Care, Evaluation/Treatment, Strengthening/ROM Medical History Pertinent Medical History: DM, HTN, Hypothroidism Additional Medical History colon CA, spinal tumor Current History Pt admitted to hospital 02/24/19 with with daughter for c/o irregular HR. Pt underwent surgical intervention 03/08/19, and put on ventilator 03/09/19. Pt had remained on ventilator, extubated 03/15/19. Social History Home: Single Level Current Living Status: Children Entry Into Home: Stairs With Railing Steps Into Home: 2 Steps Inside Home: 0 Pt unable to provide information on this visit about living environment. Information obtained from previous OT/PT evaluations ADL-Prior Level of Function SCALE: Activities may be completed with or without assistive devices. 5-Jokmthuepa-nksaauh completes the activity by him/herself with no assistance from a helper. 5-Set-up or Clean-up Assistance-helper sets up or cleans up; patient completes activity. [place] assists only prior to or following the activity. 4-Supervision or Touching Assistance-helper provides verbal cues and/or touching/steadying and/or contact guard assistance as patient completes activity. Assistance may be provided throughout the activity or intermittently. 3-Partial/Moderate Assistance-helper does LESS THAN HALF the effort. [place] lifts, holds or supports trunk or limbs, but provides less than half the effort. 2-Substantial/Maximal Assistance-helper does MORE THAN HALF the effort. [place] lifts or holds trunk or limbs and provides more than half the effort. 6-Kgpiusiwq-fqomob does ALL the effort. Patient does none of the effort to complete the activity. Or, the assistance of 2 or more helpers is required for the patient to complete the activity. If activity was not attempted, code reason: 7-Patient Refused. 9-Not Applicable-not attempted and the patient did not perform the activity before the current illness, exacerbation or injury. 10-Not Attempted due to Environmental Limitations-(lack of equipment, weather restraints, etc.). 88-Not Attempted due to Medical Conditions or Safety Concerns. ADL PLOF Comments Pt unable to provide information about PLOF, information gathered from prior OT/PT evaluation. Self Care: Independent Functional Cognition: Unknown OT Current Status Subjective Nursing stated pt is OK to be seen on this date. Pt laying in bed at start of OT evaluation. Pt able to nod head "yes" and shake head "no" in response to q uestions. Pt nodded in agreement to OT evaluation on this date. Mental Status/Objective Patient Orientation: Unable to Assess Attachments: Wing Catheter, IV, Oxygen (BiPAP) Current Glasses/Contacts: Yes Hearing Aids: No Dentures/Partials: Yes Hand Dominance: Right Upper Extremity ROM pt unable to lift arms up off of bed secondary to weakness, full PROM at elbows, wrists/hand PROM limited by swelling. Upper Extremity Coordination unable to assess secondary to weakness Upper Extremity Sensation unable to assess, when asked if pt felt OT during PROM, pt shook head "no", then nodded head "yes". Upper Extremity Strength Pt attempted to lift arms up against gravity but unable, when asked to squeeze OT fingers in hand pt was able to slightly move thumb. BUE MMT ~1/5 with trace contractions felt during attempted movements. Edema: noted swelling in BUE, primarily in hands ADL-Treatment Eating (QC): 1 Oral Hygiene (QC): 1 Shower/Bathe Self (QC): 1 Upper Body Dressing (QC): 1 Lower Body Dressing (QC): 1 On/Off Footwear (QC): 1 Toileting Hygiene (QC): 1 Toilet Transfer (QC): 1 QC scores based on clinical judgement due to pt being unable to lift arms during tx Other Treatments Pt laying in bed throughout tx, OT talked with pt and performed PROM BUE x10-15 reps each for the following movements: elbows, wrists, fingers. Pt nodded/shook head to OT's questions throughout session but unable to communicate with spoken words. Post OT session, pt laying in bed with all needs met, and call light in reach. Education OT Patient Education: Correct positioning, Energy conservation, Exercise program, Modified ADL techniques, Progress toward Goal/Update tx plan, Purpose of tx/functional activities Teaching Recipient: Patient Teaching Methods: Discussion Response to Teaching: Reinforcement Needed OT Short Term Goals Short Term Goals 1=Demonstrate adherence to instructed precautions during ADL tasks. 2=Patient will verbalize/demonstrate understanding of assistive devices/modifications for ADL. 3=Patient will improve strength/tolerance for activity to enable patient to perform ADL's. OT Custodial Goals Custodial Goals Time Frame: Apr 05, 2019 Eating (QC): 3 Oral Hygiene (QC): 3 Shower/Bathe Self (QC): 3 Upper Body Dressing (QC): 3 Lower Body Dressing (QC): 2 On/Off Footwear (QC): 2 Toileting Hygiene (QC): 2 Toilet/Commode Transfer (QC): 2 Additional Goals: 1-Demonstrate ADL Tasks, 2-Verbalize Understanding, 3- ImproveStrength/José 1=Demonstrate adherence to instructed precautions during ADL tasks. 2=Patient will verbalize/demonstrate understanding of assistive devices/modifications for ADL. 3=Patient will improve strength/tolerance for activity to enable patient to perform ADL's. OT Education/Plan Problem List/Assessment Assessment: Decreased Activ Tolerance, Decreased UE Strength, Dependent Tra nsfers, Edema, Impaired Bed Mobility, Impaired I ADL's, Impaired Self-Care Skills, Restricted Funct UE ROM Discharge Recommendations Plan/Recommendations: Continue POC Treatment Plan/Plan of Care Treatment,Training & Education: Yes Patient would benefit from OT for education, treatment and training to promote independence in ADL's, mobility, safety and/or upper extremity function for ADL's. Plan of Care: ADL Retraining, Caregiver Training, Cognitive Retraining, Concurrent Therapy, Functional Mobility, UE Funct Exercise/Act Treatment Duration: Apr 05, 2019 Frequency: 5 times per week Estimated Hrs Per Day: .25 hour per day Agreement: Yes Rehab Potential: Fair Time/GCodes Start Time: 08:34 Stop Time: 08:43 Total Time Billed (hr/min): 9 Billed Treatment Time 1, [facility] OT Mar 16, 2019 08:54 POS
[2019-03-16] MEDS ORDERED: LINEZOLID IVPB 300 ML IV SCH (09:00)
--- NOTE | 2019-03-16 09:04 | Progress Note - Hospitalist ---
Subjective HPI/CC On Admission Date Seen by Provider: Mar 16, 2019 Time Seen by Provider: 08:55 abdominal pain Subjective/Events-last exam Patient is now extubated. Appears very weak and communicates minimally. Denies any pain. When asked how she is feeling she just nods her head. Discussed with RN who is been doing passive range of motion with her and movement has improved. Focused Exam Time of Focused Exam: 22:00 Objective Exam Vital Signs Vital Signs Date Time Temp Pulse Resp B/P (MAP) Pulse Ox O2 Delivery O2 Flow Rate FiO2 03/16/19 08:12 36.1 03/16/19 08:08 100 Vapotherm 20.00 25 03/16/19 08:00 120 22 170/40 (83) Capillary Refill : Less Than 3 SecondsLess Than 3 Seconds General Appearance: No Apparent Distress, Chronically ill Respiratory: No Accessory Muscle Use, No Respiratory Distress, Decreased Breath Sounds; No Rhonci, No Wheezing Cardiovascular: Regular Rate, Rhythm, No Murmur Gastrointestinal: Normal Bowel Sounds, Soft Extremity: Pedal Edema, Swelling Neurologic/Psychiatric: Alert, Oriented x3, Depressed Affect Results/Procedures Lab Laboratory Tests 03/16/19 02:38 Patient resulted labs reviewed. Imaging: Reviewed Imaging Report Assessment/Plan Assessment and Plan Assess & Plan/Chief Complaint Perforated abdominal viscus -Management per primary -Continue meropenem and eraxis -Multiple abdominal surgeries this admission- doing well following surgery on 03/13 - Wound vac in place, ostomies in place, doing well Acute hypoxemic respiratory failure -Extubated on 03/15 -Pulmonology following - On Vapotherm Leukocytosis Fungemia -Continue Eraxis, Merrem Will need 14 days treatment from negative blood cultures- consider DCing next week if remains stable - Paul cultured today - Started on Zyvox - DC Art line Lactic acidosis, resolved Shock -continue stress dose steroids remain- consider weaning as able Acute kidney injury- resolved Hypernatremia, resolved -Cr stable, UOP adequate yesterday, responding to lasix -Monitor UOP closely Severe protein-calorie malnutrition -Continue TPN -Prealbumin <3 Postoperative anemia -Hgb improved post-transfusion, stable -Continue to monitor Hypertension -Hydralazine prn - Vasotec prn Paroxysmal atrial fibrillation -Cardiology following T2DM - Sliding scale insulin Critical illness myopathy -PT/OT -Will require acute rehab vs LTAC vs SNF on discharge Critical Care Critically Ill Patient Diagnosis/Problems Diagnosis/Problems (1) Shock Status: Resolved Resolution Date/Time: 03/13/19 @ 09:27 (2) Acute respiratory failure Status: Acute Qualifiers: Respiratory failure complication: unspecified whether with hypoxia or hypercapnia Qualified Codes: J96.00 - Acute respiratory failure, unspecified whether with hypoxia or hypercapnia (3) Fungemia Status: Acute (4) Atrial fibrillation with RVR (5) Perforated abdominal viscus Status: Acute (6) Acute renal failure Status: Acute Qualifiers: Acute renal failure type: with acute tubular necrosis Qualified Codes: N17.0 - Acute kidney failure with tubular necrosis (7) Hypovolemia dehydration Status: Acute (8) Bilateral pleural effusion Status: Acute (9) IDDM (insulin dependent diabetes mellitus) Status: Chronic (10) Lactic acidosis Status: Acute (11) UTI (urinary tract infection) Status: Resolved Qualifiers: Urinary tract infection type: acute cystitis Hematuria presence: without hematuria Qualified Codes: N30.00 - Acute cystitis without hematuria Resolution Date/Time: 02/27/19 @ 08:40 Clinical Quality Measures DVT/VTE Risk/Contraindication: Risk Factor Score Per Nursin RFS Level Per Nursing on Admit: 4+=Very High ABIGAIL PORTER MD Mar 16, 2019 09:04 POS
--- NOTE | 2019-03-16 09:20 | Physical Therapy Evaluation ---
PT Evaluation-General Medical Diagnosis Admission Date Feb 25, 2019 at 11:11 Medical Diagnosis: post op complications/bowel perforation Onset Date: Feb 24, 2019 Therapy Diagnosis Therapy Diagnosis: debility Height/Weight Height (Feet): 5 Height (Inches): 5.00 Weight (Pounds): 160 Weight (Ounces): 0.0 Precautions Precautions/Isolations: Aspiration, Fall Prevention, Standard Precautions Weight Bear Status Right Lower Extremity: Right Weight Bearing/Tolerated Left Lower Extremity: Left Weight Bearing/Tolerated Referral Physician: Harper Reason for Referral: Evaluation/Treatment Medical History Pertinent Medical History: DM, HTN, Hypothroidism Reviewed History: Yes Social History Home: Single Level Current Living Status: Children Entry Into Home: Stairs With Railing PT Steps Into Home: 2 PT Steps Inside Home: 0 Prior Prior Level of Function SCALE: Activities may be completed with or without assistive devices. 5-Bgjrdfikre-ewuftqv completes the activity by him/herself with no assistance from a helper. 5-Set-up or Clean-up Assistance-helper sets up or cleans up; patient completes activity. [place] assists only prior to or following the activity. 4-Supervision or Touching Assistance-helper provides verbal cues and/or touching/steadying and/or contact guard assistance as patient completes activity. Assistance may be provided throughout the activity or intermittently. 3-Partial/Moderate Assistance-helper does LESS THAN HALF the effort. [place] lifts, holds or supports trunk or limbs, but provides less than half the effort. 2-Substantial/Maximal Assistance-helper does MORE THAN HALF the effort. [place] lifts or holds trunk or limbs and provides more than half the effort. 0-Umyndbfns-trwubg does ALL the effort. Patient does none of the effort to complete the activity. Or, the assistance of 2 or more helpers is required for the patient to complete the activity. If activity was not attempted, code reason: 7-Patient Refused. 9-Not Applicable-not attempted and the patient did not perform the activity before the current illness, exacerbation or injury. 10-Not Attempted due to Environmental Limitations-(lack of equipment, weather restraints, etc.). 88-Not Attempted due to Medical Conditions or Safety Concerns. Indoor Mobility (Ambulation): Independent Stairs: Independent Prior Devices Use: None PT Evaluation-Current Subjective Patient is non-verbal and unable to communicate at this time. ROM/Strength Strength Lower Extremities 1/5 Integumentary/Posture Bladder Incontinence: Wing Cath Sensory Vision: Functional Hearing: Functional Hand Dominance: Right Sensation Right Lower Extremit: Impaired Sensation Left Lower Extremity: Impaired Transfers Roll Left to Right (QC): 1 Sit to Lying (QC): 1 Lying to Sitting/Side of Bed(Q: 1 Sit to Stand (QC): 1 Chair/Aqa-po-Stofk Xfer(QC): 1 Car Transfer (QC): 1 Gait Does the Patient Walk?: Yes Mode of Locomotion: Both Anticipated Mode of Locomotion: Both Distance: 0=does not occure Walk 10 feet (QC): 1 Walk 50 ft with 2 Turns(QC): 1 Walk 150 ft (QC): 1 Walking 10ft/uneven surface-QC: 1 Distance: unable Wheelchair Training unable at this time Balance Sitting Static: Poor Sitting Dynamic: Poor Assessment/Needs Patient is very debilitated after just weaning off the vent. The patient should be able to slowly recover strength and improve functional ability. Rehab Potential: Guarded PT Short Term Goals Short Term Goals Time Frame: Mar 23, 2019 Gait Distance Comment: 10' Gait Assistive Device: FWW PT Fdc Goals Fdc Goals PT Fdc Goals Time Frame: Apr 06, 2019 Sit to Lying (QC): 5 Lying-Sitting on Side/Bed(QC): 5 Sit to Stand (QC): 5 Roll Left to Right (QC): 5 Chair/Rza-at-Ignuh Xfer(QC): 5 Does the Patient Walk: Yes Distance: 150' Walk 10 feet (QC): 5 Walk 10ft-Uneven Surface(QC): 5 Walk 50ft with 2 Turns (QC): 5 Walk 150 ft (QC): 5 Gait Assistive Device: FWW PT Plan Problem List Problem List: Activity Tolerance, Functional Strength, Safety, Balance, Gait, Transfer, Bed Mobility, ROM Treatment/Plan Treatment Plan: Continue Plan of Care Treatment Plan: Bed Mobility, Education, Functional Activity José, Functional Strength, Gait, Safety, Therapeutic Exercise, Transfers Treatment Duration: Apr 06, 2019 Frequency: 6 times per week Estimated Hrs Per Day: .5 hour per day Patient and/or Family Agrees t: Yes Time/GCodes Time In: 0900 Time Out: 0910 Total Billed Treatment Time: 10 Total Billed Treatment Evaluation of low complexity ADAN MCLEOD PT Mar 16, 2019 09:20 POS
--- NOTE | 2019-03-16 09:48 | NUR ---
TPN: [facility]VANCE TPN TO 66 ML/HR. WILL PROVIDE 1080 KCAL WITH 100 GM PROTEIN. PENDING LABS, WILL CONSIDER ADVANCING TO GOAL OF [phone] KCAL WITH 100-125 GM PROTEIN.
[2019-03-16] MEDS: PANTOPRAZOLE 40 MG (PROTONIX) VIAL IV SCH (09:57)
[2019-03-16] MEDS: ANIDULAFUNGIN INJECTION 100 MG in NS (IVPB) 100 ML IV SCH (09:58)
[2019-03-16] MEDS: LINEZOLID 600MG/300ML IVPB (PRE-MIX) IV SCH ×2 (10:10→21:33)
[2019-03-16] MEDS: morphine INJ 4 MG/ML 1 ML (VIAL/SYRINGE) IVP PRN ×3 (10:11→21:27)
--- NOTE | 2019-03-16 14:30 | NUR ---
PATIENT CONVERTED TO AFIB, EKG OBTAINED. NOTIFIED DR. PORTER, DR. ROMO ET DR. RAMSEY. ORDERS RECEIVED FROM DR. ROMO, SEE EMAR.
[2019-03-16] MEDS: DILTIAZEM IV FOR DRIP 125 MG in NS (IVPB) 100 ML IV SCH (14:52)
--- NOTE | 2019-03-16 15:27 | Progress Note - Surgery ---
Subjective Date Seen by a Provider: Mar 16, 2019 Time Seen by a Provider: 07:45 Subjective/Events-last exam Has been extubated yesterday. overnight on bipap. no family at bedside. ileostomies functioning and pink. minimal communication from patient but does nod head and answers in soft voice simple responses. Review of Systems General: No Chills, No Night Sweats, No Fatigue, No Malaise HEENT: No Head Aches, No Eye Pain, No Ear Pain, No Dysphasia, No Sinus Congestion, No Post Nasal Drip, No Sore Throat Pulmonary: No Dyspnea, No Cough, No Pleuritic Chest Pain Cardiovascular: No: Chest Pain, Palpitations, Orthopnea, Paroxysmal Noc. Dyspnea, Edema, Lt Headedness Gastrointestinal: No: Nausea, Vomiting, Abdominal Pain, Diarrhea, Constipation, Melena, Hematochezia Genitourinary: No Dysuria, No Frequency, No Incontinence, No Hematuria, No Retention Musculoskeletal: No: other, neck pain, shoulder pain, arm pain, back pain, hand pain, leg pain, foot pain Neurological: No: Weakness, Numbness, Incoordination, Change in speech, Confusion, Seizures, Other Focused Exam Time of Focused Exam: 22:00 Objective Exam Vital Signs Date Time Temp Pulse Resp B/P (MAP) Pulse Ox O2 Delivery O2 Flow Rate FiO2 03/16/19 15:00 133 19 130/30 (63) 99 Vapotherm 20.00 21.00 03/16/19 14:52 149 143/35 03/16/19 14:35 100 Vapotherm 15.00 25 03/16/19 14:35 Vapotherm 20.00 21.00 03/16/19 14:00 130 24 147/32 (70) 100 Vapotherm 15.00 25.00 03/16/19 13:54 114 03/16/19 13:00 111 16 146/31 (69) 100 Vapotherm 15.00 25.00 03/16/19 13:00 110 03/16/19 12:00 100 Vapotherm 20.00 25 03/16/19 12:00 113 19 149/31 (70) 100 Vapotherm 15.00 25.00 03/16/19 11:49 37.2 03/16/19 11:00 108 18 148/30 (69) 100 Vapotherm 15.00 25.00 03/16/19 10:58 Vapotherm 15.00 25.00 03/16/19 10:57 100 Vapotherm 20.00 25 03/16/19 10:00 104 19 158/31 (73) 100 Vapotherm 20.00 25.00 03/16/19 09:00 110 20 152/33 (72) 100 Vapotherm 20.00 25.00 03/16/19 08:12 36.1 03/16/19 08:08 100 Vapotherm 20.00 25 03/16/19 08:00 120 22 170/40 (83) 100 Vapotherm 20.00 25.00 03/16/19 07:00 96 03/16/19 07:00 96 16 169/41 (83) 100 Vapotherm 20.00 25.00 03/16/19 06:52 100 Vapotherm 20.00 25 03/16/19 06:45 100 Vapotherm 20.00 25 03/16/19 06:45 36.2 03/16/19 06:00 89 14 161/40 (80) 100 Vapotherm 25.00 20.00 03/16/19 05:45 Vapotherm 25.00 20.00 03/16/19 05:00 99 22 183/46 (91) 100 NIV Bilevel 30.00 03/16/19 04:00 96 NIV Bilevel 30 03/16/19 04:00 110 21 188/47 (94) 100 NIV Bilevel 30.00 03/16/19 04:00 35.3 03/16/19 03:00 101 21 178/47 (90) 100 NIV Bilevel 30.00 03/16/19 02:03 101 19 100 30.00 03/16/19 02:00 101 22 194/46 (95) 100 NIV Bilevel 30.00 03/16/19 01:00 106 03/16/19 01:00 103 22 185/45 (91) 100 NIV Bilevel 30.00 03/16/19 00:00 96 NIV Bilevel 30 03/16/19 00:00 35.5 03/16/19 00:00 113 22 193/48 (96) 100 NIV Bilevel 30.00 03/15/19 23:00 105 22 192/48 (96) 97 NIV Bilevel 30.00 03/15/19 22:00 111 23 190/46 (94) 97 NIV Bilevel 30.00 03/15/19 21:58 112 28 97 30.00 03/15/19 21:00 108 20 187/41 (89) 97 Vapotherm 25.00 20.00 03/15/19 20:00 96 Vapotherm 20.00 25 03/15/19 20:00 35.5 03/15/19 20:00 99 17 183/39 (87) 100 Vapotherm 25.00 20.00 03/15/19 19:00 100 03/15/19 19:00 101 21 182/40 (87) 99 Vapotherm 25.00 20.00 03/15/19 18:41 99 Vapotherm 20.00 25 03/15/19 18:39 99 Vapotherm 20.00 25 03/15/19 18:00 96 16 180/38 (85) 100 Vapotherm 25.00 20.00 03/15/19 17:00 94 20 180/39 (86) 99 Vapotherm 25.00 20.00 03/15/19 16:18 36.3 03/15/19 16:00 96 Vapotherm 25 03/15/19 16:00 93 18 177/40 (85) 100 Vapotherm 25.00 20.00 I & O 03/16/19 07:00 Intake Total 520 ml Output Total 6108 ml Balance -5588 ml Capillary Refill : Less Than 3 SecondsLess Than 3 Seconds General Appearance: No Apparent Distress, Chronically ill HEENT: PERRL/EOMI Neck: Normal Inspection, Supple Respiratory: No Accessory Muscle Use, No Respiratory Distress, Decreased Breath Sounds; No Rhonci, No Wheezing Cardiovascular: Regular Rate, Rhythm, No Murmur Peripheral Pulses: 2+ Dorsalis Pedis (R), 2+ Left Dors-Pedis (L), 2+ Radial Pulses (R), 2+ Radial Pulses (L) Gastrointestinal: normal bowel sounds, soft, other (wound vac in place, ileostomies functioning) Extremity: Pedal Edema, Swelling Neurologic/Psychiatric: Alert, Oriented x3, Depressed Affect Skin: Warm/Dry Lymphatic: No Adenopathy Results Lab Laboratory Tests 03/15/19 16:17: Glucometer 168H 03/15/19 20:57: Glucometer 130H 03/16/19 02:38: White Blood Count 16.1H, Red Blood Count 3.51L, Hemoglobin 10.7L, Hematocrit 32L , Mean Corpuscular Volume 91, Mean Corpuscular Hemoglobin 30, Mean Corpuscular Hemoglobin Concent 34, Red Cell Distribution Width 17.4H, Platelet Count 193, Mean Platelet Volume 10.2, Neutrophils (%) (Auto) 89H, Lymphocytes (%) (Auto) 3L , Monocytes (%) (Auto) 7, Eosinophils (%) (Auto) 0, Basophils (%) (Auto) 0, Neutrophils # (Auto) 14.3H, Lymphocytes # (Auto) 0.5L, Monocytes # (Auto) 1.2H, Eosinophils # (Auto) 0.1, Basophils # (Auto) 0.0, Blood Gas Puncture Site RIGHT ARTLINE, Blood Gas Patient Temperature 35.2, Arterial Blood pH 7.49H, Arterial Blood Partial Pressure CO2 33L, Arterial Blood Partial Pressure O2 67L, Arterial Blood HCO3 25, Arterial Blood Total CO2 26.3, Arterial Blood Oxygen Saturation 95, Arterial Blood Base Excess 1.8, Kenny Test ARTLINE, Blood Gas Ventilator Setting NO, Blood Gas Inspired Oxygen 30%, Sodium Level 144, Potassium Level 4.5, Chloride Level 113H, Carbon Dioxide Level 23, Anion Gap 8, Blood Urea Nitrogen 64H, Creatinine 0.70, Estimat Glomerular Filtration Rate > 60, BUN/Creatinine Ratio 91, Glucose Level 143H, Calcium Level 7.2L, Phosphorus Level 4.3, Magnesium Level 2.0, Triglycerides Level 344H 03/16/19 04:47: Glucometer 150H 03/16/19 08:10: Glucometer 143H 03/16/19 11:48: Glucometer 136H Microbiology 03/07/19 Blood Culture - Final, Complete No growth 03/16/19 C. difficile GDH Antigen & Toxins - Final, Complete 03/15/19 Gram Stain - Final, Resulted 03/15/19 Bronchial Culture - Preliminary, Resulted No growth 03/15/19 Fungal Culture 1, Resulted Pending 02/24/19 Urine Culture - Final, Complete NO GROWTH 03/05/19 Gram Stain - Final, Complete 03/05/19 Anaerobic Culture - Final, Complete No anaerobes isolated 03/05/19 Surgical Culture - Final, Complete Marilia species Assessment/Plan Assessment/Plan Assessment/Plan S/P Fascial Closure with vicryl mesh, diverting ileostomy patient with left chest consolidation with pleural effusion continue medical management continue IV abx no changes from surgical standpoint. Clinical Quality Measures DVT/VTE Risk/Contraindication: Risk Factor Score Per Nursin RFS Level Per Nursing on Admit: 4+=Very High RASHEED RAMSEY DO Mar 16, 2019 15:27 POS
--- NOTE | 2019-03-16 16:51 | Progress Note - Cardiology ---
Cardiology SOAP Progress Note Subjective: Pt verbally unresponsive Daughter by bedside Objective: I&O/Vital Signs 03/16/19 03/16/19 03/16/19 03/16/19 05:00 05:45 06:00 06:45 Temp 36.2 Pulse 99 89 Resp 22 14 B/P (MAP) 183/46 (91) 161/40 (80) Pulse Ox 100 100 O2 Delivery NIV Bilevel Vapotherm Vapotherm O2 Flow Rate 30.00 25.00 25.00 20.00 20.00 03/16/19 03/16/19 03/16/19 03/16/19 06:45 06:52 07:00 07:00 Pulse 96 96 Resp 16 B/P (MAP) 169/41 (83) Pulse Ox 100 100 100 O2 Delivery Vapotherm Vapotherm Vapotherm O2 Flow Rate 20.00 20.00 20.00 25.00 FiO2 25 25 03/16/19 03/16/19 03/16/19 03/16/19 08:00 08:08 08:12 09:00 Temp 36.1 Pulse 120 110 Resp 22 20 B/P (MAP) 170/40 (83) 152/33 (72) Pulse Ox 100 100 100 O2 Delivery Vapotherm Vapotherm Vapotherm O2 Flow Rate 20.00 20.00 20.00 25.00 25.00 FiO2 25 03/16/19 03/16/19 03/16/19 03/16/19 10:00 10:57 10:58 11:00 Pulse 104 108 Resp 19 18 B/P (MAP) 158/31 (73) 148/30 (69) Pulse Ox 100 100 100 O2 Delivery Vapotherm Vapotherm Vapotherm Vapotherm O2 Flow Rate 20.00 20.00 15.00 15.00 25.00 25.00 25.00 FiO2 25 03/16/19 03/16/19 03/16/19 03/16/19 11:49 12:00 12:00 13:00 Temp 37.2 Pulse 113 110 Resp 19 B/P (MAP) 149/31 (70) Pulse Ox 100 100 O2 Delivery Vapotherm Vapotherm O2 Flow Rate 15.00 20.00 25.00 FiO2 25 03/16/19 03/16/19 03/16/19 03/16/19 13:00 13:54 14:00 14:35 Pulse 111 114 130 Resp 16 24 B/P (MAP) 146/31 (69) 147/32 (70) Pulse Ox 100 100 O2 Delivery Vapotherm Vapotherm Vapotherm O2 Flow Rate 15.00 15.00 20.00 25.00 25.00 21.00 03/16/19 03/16/19 03/16/19 03/16/19 14:35 14:52 15:00 16:00 Pulse 149 133 124 Resp 19 20 B/P (MAP) 143/35 130/30 (63) 157/36 (76) Pulse Ox 100 99 98 O2 Delivery Vapotherm Vapotherm Vapotherm O2 Flow Rate 15.00 20.00 20.00 21.00 21.00 FiO2 25 03/16/19 16:11 Pulse Ox 100 O2 Delivery Vapotherm O2 Flow Rate 20.00 FiO2 25 03/16/19 00:00 Intake Total 520 ml Output Total 2878 ml Balance -2358 ml Weight (Pounds): 160 Weight (Ounces): 0.0 Weight (Calculated Kilograms): [id number] Constitutional: other (unresponsive, appears thin and somewhat cachectic) Respiratory: other (fair bilat air entry, diminished at the bases) Cardiovascular: regular rate-rhythm, S1 and S2, systolic murmur (faint GLENDA at card base) Gastrointestional: other (multiple recent surgeries; we did not attempt palp; bs are weak/absent) Extremities: other (mild, bilateral leg edema); No clubbing, No cyanosis Neurologic/Psychiatric: other (cannot cooperate with a neuro exam) Skin: normal color, cool, diaphoresis, damp Results/Procedures: Labs Laboratory Tests 03/15/19 20:57: Glucometer 130H 03/16/19 02:38: White Blood Count 16.1H, Red Blood Count 3.51L, Hemoglobin 10.7L, Hematocrit 32L , Mean Corpuscular Volume 91, Mean Corpuscular Hemoglobin 30, Mean Corpuscular Hemoglobin Concent 34, Red Cell Distribution Width 17.4H, Platelet Count 193, Mean Platelet Volume 10.2, Neutrophils (%) (Auto) 89H, Lymphocytes (%) (Auto) 3L , Monocytes (%) (Auto) 7, Eosinophils (%) (Auto) 0, Basophils (%) (Auto) 0, Ne utrophils # (Auto) 14.3H, Lymphocytes # (Auto) 0.5L, Monocytes # (Auto) 1.2H, Eosinophils # (Auto) 0.1, Basophils # (Auto) 0.0, Blood Gas Puncture Site RIGHT ARTLINE, Blood Gas Patient Temperature 35.2, Arterial Blood pH 7.49H, Arterial Blood Partial Pressure CO2 33L, Arterial Blood Partial Pressure O2 67L, Arterial Blood HCO3 25, Arterial Blood Total CO2 26.3, Arterial Blood Oxygen Saturation 95, Arterial Blood Base Excess 1.8, Kenny Test ARTLINE, Blood Gas Ventilator Setting NO, Blood Gas Inspired Oxygen 30%, Sodium Level 144, Potassium Level 4.5, Chloride Level 113H, Carbon Dioxide Level 23, Anion Gap 8, Blood Urea Nitrogen 64H, Creatinine 0.70, Estimat Glomerular Filtration Rate > 60, BUN/Creatinine Ratio 91, Glucose Level 143H, Calcium Level 7.2L, Phosphorus Level 4.3, Magnesium Level 2.0, Triglycerides Level 344H 03/16/19 04:47: Glucometer 150H 03/16/19 08:10: Glucometer 143H 03/16/19 11:48: Glucometer 136H 03/16/19 15:51: Glucometer 109 Microbiology 03/16/19 Blood Culture - Preliminary, Resulted No growth 03/16/19 C. difficile GDH Antigen & Toxins - Final, Complete 03/15/19 Mycobacterial Culture - Preliminary, Resulted 02/24/19 Urine Culture - Final, Complete NO GROWTH 03/05/19 Gram Stain - Final, Complete 03/05/19 Anaerobic Culture - Final, Complete No anaerobes isolated 03/05/19 Surgical Culture - Final, Complete Marilia species Laboratory Tests 03/15/19 03:47 03/16/19 02:38 A/P: Assessment: Multiple abdominal surgeries during this admission for perforated viscus Fungemia and sepsis, managed by Hosp and ICU Svces Type 1 resp failure, managed by the Pulm Svce Paroxysmal atrial fibrillation Echo 03/04/19 (Dr Montana): LVEF 75-80%, grade 1 cabezas dysfunction, mild to mod TR, PASP approx 35 mmHg Labile hypertension Mild CAD on card caths of 2012 and 2017 History of colon cancer, treated with surgery several years ago, in remission and followed by Dr. Branham History of hyperlipidemia H/o carotid artery stenosis that is followed by Dr Montana Diabetes mellitus II H/o obstructive sleep apnea, intolerance to CPAP Plan: * Complex management due to multiple comorbidities * We recommend full anticoag when acceptable from a surgical standpoint * iv dilt for vent rate control * I discussed her CV issues with her daughter and answered her questions BETH ROMO MD FACP FAC CCDS Mar 16, 2019 16:51 POS
[2019-03-16] MEDS ORDERED: [UNRECOGNIZED DRUG - OTHER] IV SCH ×11 (17:00)
[2019-03-16] MEDS ORDERED: SODIUM ACETATE IV SCH ×11 (17:00)
[2019-03-16] MEDS ORDERED: POTASSIUM CHLORIDE IV SCH ×11 (17:00)
[2019-03-16] MEDS: RT-LEVALBUTEROL (XOPENEX) 1.25 MG/3 ML NEB NON-FORMULARY INH SCH ×2 (18:04→21:50)
[2019-03-16] MEDS: RT-IPRATROPIUM (ATROVENT) 0.5MG/2.5ML AMP IH SCH ×2 (18:05→21:50)
[2019-03-16] MEDS: hydrALAZINE (APESOLINE) 20 MG/ML VIAL IV PRN (21:28)
[2019-03-16] MEDS: ENOXAPARIN 40 MG/0.4 ML (LOVENOX) SYR SC SCH (21:29)
[2019-03-17] VITALS (27 sets, daily range): BP systolic 140–193; BP diastolic 29–44
[2019-03-17] MEDS: inSUlin ASPART (NovoLOG) 1 UNIT/0.01 ML (CHARGE PER UNIT) SQ SCH ×6 (00:36→19:56)
[2019-03-17] MEDS: niCARdipine IV 50 MG in NS (IVPB) 230 ML IV SCH ×3 (01:16→14:50)
[2019-03-17] MEDS: RT-IPRATROPIUM (ATROVENT) 0.5MG/2.5ML AMP IH SCH ×6 (01:22→21:37)
[2019-03-17] MEDS: RT-LEVALBUTEROL (XOPENEX) 1.25 MG/3 ML NEB NON-FORMULARY INH SCH ×6 (01:23→21:37)
[2019-03-17] MEDS: MEROPENEM 500 MG/SWFI 10 ML IV PUSH IV SCH ×6 (03:18→18:15)
[2019-03-17 03:19] LABS: BASOPHILS % (AUTO) 0 % (0-10); EOSINOPHILS % (AUTO) 0 % (0-10); HEMATOCRIT 31 % (35-52); LYMPHOCYTES # (AUTO) 0.5 X 10^3 (1.0-4.0); LYMPHOCYTES % (AUTO) 3 % (12-44); MEAN CORPUSCULAR HEMOGLOBIN 30 PG (25-34); MEAN CORPUSCULAR HGB CONC 33 G/DL (32-36); MEAN CORPUSCULAR VOLUME 92 FL (80-99); MEAN PLATELET VOLUME 10.5 FL (7.4-10.4); MONOCYTES # (AUTO) 1.2 X 10^3 (0.0-1.0); MONOCYTES % (AUTO) 8 % (0-12); NEUTROPHILS # (AUTO) 13.6 X 10^3 (1.8-7.8); NEUTROPHILS % (AUTO) 89 % (42-75); PLATELET COUNT 178 10^3/uL (130-400); RED CELL DISTRIBUTION WIDTH 17.8 % (10.0-14.5); WHITE BLOOD COUNT 15.3 10^3/uL (4.3-11.0)
[2019-03-17 03:20] LABS: ABG BASE EXCESS 4.2 MMOL/L (-2.5-2.5); ABG OXYGEN SATURATION 93 % (94-100); ABG PCO2 33 MMHG (35-45); ABG PH 7.53 (7.37-7.43); ABG PO2 59 MMHG (79-93); ABG TCO2 28.3 MMOL/L (21.0-31.0)
[2019-03-17 03:31] LABS: ALLENS TEST ARTLINE; INSPIRED O2 21% BIPAP; PATIENT TEMP 35.7; VENTILATOR NO
[2019-03-17 03:38] LABS: BUN/CREATININE RATIO 92; CALCIUM 7.4 MG/DL (8.5-10.1); CARBON DIOXIDE 23 MMOL/L (21-32); CHLORIDE 113 MMOL/L (98-107); CREATININE SERUM 0.72 MG/DL (0.60-1.30); GFR ESTIMATED > 60; GLUCOSE 164 MG/DL (70-105); PHOSPHORUS 4.6 MG/DL (2.3-4.7); POTASSIUM 4.2 MMOL/L (3.6-5.0); SODIUM 149 MMOL/L (135-145)
[2019-03-17] MEDS: POTASSIUM CL 10MEQ/50ML IVPB 50 ML IV SCH (04:42)
[2019-03-17] MEDS: KCL 20 MEQ TAB (K-DUR) PO SCH (04:42)
[2019-03-17] MEDS: MAGNESIUM 1 GM/100 ML IVPB 100 ML IV SCH (04:42)
[2019-03-17] MEDS: RT-FLUTICASONE 220 MCG (FLOVENT) PER PUFF INH SCH ×2 (06:19→18:08)
--- NOTE | 2019-03-17 07:41 | Diagnostic Imaging Report ---
INDICATION: Dyspnea. TECHNIQUE: Single view chest 3:17 AM. CORRELATION STUDY: 03/16/2019 FINDINGS: Gastric tube passed by lifting diaphragm and edge of the film. Bilateral central lines are present. Left one is most inferiorly positioned one at the high right atrium. Heart size and mediastinum generally stable. Combination of bilateral pleural effusions along with consolidation both lung bases right greater than left, generally stable. IMPRESSION: 1. Bilateral pleural effusion along with consolidation of both lung bases right greater than left overall likely relatively stable. Vasculature is improved at followup. Dictated by: Dictated on workstation # [id number]
[2019-03-17] MEDS: morphine INJ 4 MG/ML 1 ML (VIAL/SYRINGE) IVP PRN ×4 (08:12→22:49)
[2019-03-17] MEDS: PANTOPRAZOLE 40 MG (PROTONIX) VIAL IV SCH (08:12)
--- NOTE | 2019-03-17 09:24 | Progress Note - Hospitalist ---
Subjective HPI/CC On Admission Date Seen by Provider: Mar 17, 2019 Time Seen by Provider: 09:18 abdominal pain Subjective/Events-last exam Pt reports doing well. Reports feeling a bit better. Focused Exam Time of Focused Exam: 22:00 Objective Exam Vital Signs Vital Signs Date Time Temp Pulse Resp B/P (MAP) Pulse Ox O2 Delivery O2 Flow Rate FiO2 03/17/19 08:39 100 Vapotherm 15.00 21 03/17/19 08:00 36.2 03/17/19 07:00 106 03/17/19 06:00 19 173/38 (83) Capillary Refill : Less Than 3 SecondsLess Than 3 Seconds General Appearance: No Apparent Distress, Chronically ill Respiratory: Lungs Clear, No Respiratory Distress Cardiovascular: Regular Rate, Rhythm, No Murmur Gastrointestinal: Other (ostomies in place, wound vac in place) Extremity: No Pedal Edema, Swelling Neurologic/Psychiatric: Alert, Depressed Affect Results/Procedures Lab Laboratory Tests 03/17/19 03:10 Patient resulted labs reviewed. Imaging: Reviewed Imaging Report Assessment/Plan Assessment and Plan Assess & Plan/Chief Complaint Perforated abdominal viscus -Management per primary -Continue meropenem and eraxis and Zyvox -Multiple abdominal surgeries this admission- doing well following surgery on 03/13 - Wound vac in place, ostomies in place, doing well Acute hypoxemic respiratory failure -Extubated on 03/15 -Pulmonology following - On Vapotherm, doing well Leukocytosis Fungemia -Continue Eraxis, Merrem, Zyvox Will need 14 days treatment from negative blood cultures- consider DCing next week if remains stable - Paul culture- NGTD - DC Art line Lactic acidosis, resolved Shock - off steroids Acute kidney injury- resolved Hypernatremia, resolved -Cr stable, UOP adequate yesterday, responding to lasix -Monitor UOP closely Severe protein-calorie malnutrition -Continue TPN -Prealbumin <3 Postoperative anemia -Hgb improved post-transfusion, stable -Continue to monitor Hypertension -Hydralazine prn -Vasotec prn Paroxysmal atrial fibrillation -Cardiology following T2DM - Sliding scale insulin Critical illness myopathy -PT/OT -Will require acute rehab vs LTAC vs SNF on discharge Critical Care Critically Ill Patient Diagnosis/Problems Diagnosis/Problems (1) Shock Status: Resolved Resolution Date/Time: 03/13/19 @ 09:27 (2) Acute respiratory failure Status: Acute Qualifiers: Respiratory failure complication: unspecified whether with hypoxia or hypercapnia Qualified Codes: J96.00 - Acute respiratory failure, unspecified whether with hypoxia or hypercapnia (3) Fungemia Status: Acute (4) Atrial fibrillation with RVR (5) Perforated abdominal viscus Status: Acute (6) Acute renal failure Status: Acute Qualifiers: Acute renal failure type: with acute tubular necrosis Qualified Codes: N17.0 - Acute kidney failure with tubular necrosis (7) Hypovolemia dehydration Status: Acute (8) Bilateral pleural effusion Status: Acute (9) IDDM (insulin dependent diabetes mellitus) Status: Chronic (10) Lactic acidosis Status: Acute (11) UTI (urinary tract infection) Status: Resolved Qualifiers: Urinary tract infection type: acute cystitis Hematuria presence: without hematuria Qualified Codes: N30.00 - Acute cystitis without hematuria Resolution Date/Time: 02/27/19 @ 08:40 Clinical Quality Measures DVT/VTE Risk/Contraindication: Risk Factor Score Per Nursin RFS Level Per Nursing on Admit: 4+=Very High ABIGAIL PORTER MD Mar 17, 2019 09:24 POS
--- NOTE | 2019-03-17 09:48 | NUR ---
TPN: REMOVE SODIUM FROM TPN. ADVANCE KCAL TO 1590 KCAL WITH 100 GM PROTEIN. NEW RATE WILL BE 64 ML/HR.
[2019-03-17] MEDS: ANIDULAFUNGIN INJECTION 100 MG in NS (IVPB) 100 ML IV SCH (10:03)
--- NOTE | 2019-03-17 10:34 | Pulmonary Progress Note ---
Subjective Time Seen by a Provider: 05:34 Subjective/Events-last exam PT is doing better. Sepsis Event Evaluation Height, Weight, BMI Height: 5'5.00" Weight: 160lbs. 0.0oz. [id number]; 21.79 BMI Method:Stated Focused Exam Time of Focused Exam: 22:00 Exam Exam Vital Signs Date Time Temp Pulse Resp B/P (MAP) Pulse Ox O2 Delivery O2 Flow Rate FiO2 03/17/19 09:00 108 19 160/38 (78) 100 Vapotherm 15.00 21.00 03/17/19 08:39 100 Vapotherm 15.00 21 03/17/19 08:00 36.2 03/17/19 08:00 113 22 155/35 (75) 99 Vapotherm 15.00 21.00 03/17/19 07:00 102 19 193/44 (93) 100 Vapotherm 15.00 21.00 03/17/19 07:00 106 03/17/19 06:20 100 Vapotherm 15.00 21 03/17/19 06:20 100 Vapotherm 15.00 21 03/17/19 06:19 100 Vapotherm 15.00 21 03/17/19 06:00 99 19 173/38 (83) 100 Vapotherm 15.00 21.00 03/17/19 05:00 96 17 182/40 (87) 100 Vapotherm 15.00 21.00 03/17/19 04:00 100 NIV Bilevel 20.00 21 03/17/19 04:00 94 16 170/38 (82) 100 Vapotherm 15.00 21.00 03/17/19 03:57 95 18 172/39 (83) 100 Vapotherm 15.00 21.00 03/17/19 03:00 102 21 184/44 (90) 100 NIV Bilevel 21.00 03/17/19 02:00 98 20 173/43 (86) 100 NIV Bilevel 21.00 03/17/19 01:25 98 20 100 21.00 03/17/19 01:00 99 20 184/44 (90) 100 NIV Bilevel 21.00 03/17/19 01:00 103 03/17/19 00:00 36.2 03/17/19 00:00 97 21 186/37 (86) 100 NIV Bilevel 21.00 03/17/19 00:00 100 NIV Bilevel 20.00 21 03/16/19 23:34 100 21 181/36 (84) 100 NIV Bilevel 21.00 03/16/19 23:00 99 20 173/35 (81) 100 NIV Bilevel 25.00 03/16/19 22:02 113 28 100 25.00 03/16/19 22:00 108 23 169/34 (79) 100 Vapotherm 15.00 21.00 03/16/19 21:17 109 25 206/39 (94) 100 Vapotherm 15.00 21.00 03/16/19 21:00 101 20 190/37 (87) 99 Vapotherm 20.00 21.00 03/16/19 20:03 36.4 03/16/19 20:00 104 21 188/36 (86) 100 Vapotherm 20.00 21.00 03/16/19 20:00 100 Vapotherm 20.00 21 03/16/19 19:00 109 22 184/36 (85) 100 Vapotherm 20.00 21.00 03/16/19 19:00 109 03/16/19 18:06 100 Vapotherm 15.00 25 03/16/19 18:00 110 23 178/37 (84) 99 Vapotherm 20.00 21.00 03/16/19 17:00 113 25 186/37 (86) 99 Vapotherm 20.00 21.00 03/16/19 16:11 100 Vapotherm 20.00 25 03/16/19 16:00 124 20 157/36 (76) 98 Vapotherm 20.00 21.00 03/16/19 15:51 36.9 03/16/19 15:00 133 19 130/30 (63) 99 Vapotherm 20.00 21.00 03/16/19 14:52 149 143/35 03/16/19 14:35 100 Vapotherm 15.00 25 03/16/19 14:35 Vapotherm 20.00 21.00 03/16/19 14:00 130 24 147/32 (70) 100 Vapotherm 15.00 25.00 03/16/19 13:54 114 03/16/19 13:00 111 16 146/31 (69) 100 Vapotherm 15.00 25.00 03/16/19 13:00 110 11/9/19 12:00 100 Vapotherm 20.00 25 03/16/19 12:00 113 19 149/31 (70) 100 Vapotherm 15.00 25.00 03/16/19 11:49 37.2 03/16/19 11:00 108 18 148/30 (69) 100 Vapotherm 15.00 25.00 03/16/19 10:58 Vapotherm 15.00 25.00 03/16/19 10:57 100 Vapotherm 20.00 25 I & O 03/17/19 07:00 Intake Total 1903 ml Output Total 6745 ml Balance -4842 ml Height & Weight Height: 5'5.00" Weight: 160lbs. 0.0oz. 72.157408wp; 21.79 BMI Method:Stated General Appearance: No Apparent Distress, Chronically ill HEENT: PERRL/EOMI Neck: Normal Inspection, Supple Respiratory: Lungs Clear, No Respiratory Distress Cardiovascular: Regular Rate, Rhythm, No Murmur Capillary Refill: Less Than 3 Seconds Peripheral Pulses: 2+ Dorsalis Pedis (R), 2+ Left Dors-Pedis (L), 2+ Radial Pulses (R), 2+ Radial Pulses (L) Gastrointestinal: normal bowel sounds, soft, other (wound vac in place, ileostomies functioning) Extremity: No Pedal Edema, Swelling Neurologic/Psychiatric: Alert, Depressed Affect Skin: Warm/Dry Lymphatic: No Adenopathy Results Lab Laboratory Tests 03/16/19 02:38 03/17/19 03:10 Assessment/Plan Assessment/Plan Acute respiratory failure with hypoxia -continue TPN -Contiue BiPAP from 8pm -5am then use Vapotherm - add heated humidity to BiPAP -DUoneb with easy PAP Q4 -Continue Cardene for BP <180 (Current SBP is 220) -Start zyvox after repeat cultures secondary to worsening leukocytosis -Repeat farmer cultures. blood urine, and body fluid from SONIA drain Hypertension -Cardene- Continue Atelectasis s/p Bronchoscopy -Await farmer cultures --DUoneb with easy PAP Q4 Hyperglycemia -Change to Q4 accu checks -pt's accu checks running in the low 200's (03/13) -accu checks in mid to upper 200's (03/14) -Continue D5 secondary to pt's severe malnutrition state. anemia s/p 4 units PRBC -Monitor recurrent perforated abdominal viscus -Cont Merrem and Eraxis -status post small bowel resection and diverting ileostomy and WoundVac plac ement Protein jorge malnutrition with low albumin and anasarca - prealbumin - <3 -Continue TPN Fungemia secondary to abdominal perforation -Eraxis Grade 1 diastolic dysfunction -Monitor Afib - currently sinus DM II Debility -PT/OT JAZMYNE THOMPSON DO Mar 17, 2019 10:34 POS
[2019-03-17] MEDS: LINEZOLID 600MG/300ML IVPB (PRE-MIX) IV SCH ×2 (11:25→22:48)
--- NOTE | 2019-03-17 12:03 | Progress Note - Surgery ---
Subjective Date Seen by a Provider: Mar 17, 2019 Time Seen by a Provider: 09:00 Subjective/Events-last exam Patient seen and examined. This morning she is awake and understanding questions, but her responses were barely audible. CXR today shows stable bilateral pleural effusions and lung base consolidations. Ileostomies in place and functioning. Drains with serous output. Her family was out of the room and not at the bedside at the time of this visit. Focused Exam Time of Focused Exam: 22:00 Objective Exam Vital Signs Date Time Temp Pulse Resp B/P (MAP) Pulse Ox O2 Delivery O2 Flow Rate FiO2 03/17/19 10:35 100 Vapotherm 15.00 21 03/17/19 10:35 100 Vapotherm 15.00 21 03/17/19 10:00 106 21 170/39 (82) 100 Vapotherm 15.00 21.00 03/17/19 09:00 108 19 160/38 (78) 100 Vapotherm 15.00 21.00 03/17/19 08:39 100 Vapotherm 15.00 21 03/17/19 08:00 36.2 03/17/19 08:00 113 22 155/35 (75) 99 Vapotherm 15.00 21.00 03/17/19 07:00 102 19 193/44 (93) 100 Vapotherm 15.00 21.00 03/17/19 07:00 106 03/17/19 06:20 100 Vapotherm 15.00 21 03/17/19 06:20 100 Vapotherm 15.00 21 03/17/19 06:19 100 Vapotherm 15.00 21 03/17/19 06:00 99 19 173/38 (83) 100 Vapotherm 15.00 21.00 03/17/19 05:00 96 17 182/40 (87) 100 Vapotherm 15.00 21.00 03/17/19 04:00 100 NIV Bilevel 20.00 21 03/17/19 04:00 94 16 170/38 (82) 100 Vapotherm 15.00 21.00 03/17/19 03:57 95 18 172/39 (83) 100 Vapotherm 15.00 21.00 03/17/19 03:00 102 21 184/44 (90) 100 NIV Bilevel 21.00 03/17/19 02:00 98 20 173/43 (86) 100 NIV Bilevel 21.00 03/17/19 01:25 98 20 100 21.00 03/17/19 01:00 99 20 184/44 (90) 100 NIV Bilevel 21.00 03/17/19 01:00 103 03/17/19 00:00 36.2 03/17/19 00:00 97 21 186/37 (86) 100 NIV Bilevel 21.00 03/17/19 00:00 100 NIV Bilevel 20.00 21 03/16/19 23:34 100 21 181/36 (84) 100 NIV Bilevel 21.00 03/16/19 23:00 99 20 173/35 (81) 100 NIV Bilevel 25.00 03/16/19 22:02 113 28 100 25.00 03/16/19 22:00 108 23 169/34 (79) 100 Vapotherm 15.00 21.00 03/16/19 21:17 109 25 206/39 (94) 100 Vapotherm 15.00 21.00 03/16/19 21:00 101 20 190/37 (87) 99 Vapotherm 20.00 21.00 03/16/19 20:03 36.4 03/16/19 20:00 104 21 188/36 (86) 100 Vapotherm 20.00 21.00 03/16/19 20:00 100 Vapotherm 20.00 21 03/16/19 19:00 109 22 184/36 (85) 100 Vapotherm 20.00 21.00 03/16/19 19:00 109 03/16/19 18:06 100 Vapotherm 15.00 25 03/16/19 18:00 110 23 178/37 (84) 99 Vapotherm 20.00 21.00 03/16/19 17:00 113 25 186/37 (86) 99 Vapotherm 20.00 21.00 03/16/19 16:11 100 Vapotherm 20.00 25 03/16/19 16:00 124 20 157/36 (76) 98 Vapotherm 20.00 21.00 03/16/19 15:51 36.9 03/16/19 15:00 133 19 130/30 (63) 99 Vapotherm 20.00 21.00 03/16/19 14:52 149 143/35 03/16/19 14:35 100 Vapotherm 15.00 25 03/16/19 14:35 Vapotherm 20.00 21.00 03/16/19 14:00 130 24 147/32 (70) 100 Vapotherm 15.00 25.00 03/16/19 13:54 114 03/16/19 13:00 111 16 146/31 (69) 100 Vapotherm 15.00 25.00 03/16/19 13:00 110 03/16/19 12:00 100 Vapotherm 20.00 25 03/16/19 12:00 113 19 149/31 (70) 100 Vapotherm 15.00 25.00 I & O 03/17/19 07:00 Intake Total 1903 ml Output Total 6745 ml Balance -4842 ml Capillary Refill : Less Than 3 SecondsLess Than 3 Seconds General Appearance: No Apparent Distress, Chronically ill HEENT: PERRL/EOMI Neck: Normal Inspection, Supple Respiratory: Lungs Clear, No Respiratory Distress Cardiovascular: Regular Rate, Rhythm, No Murmur Peripheral Pulses: 2+ Dorsalis Pedis (R), 2+ Left Dors-Pedis (L), 2+ Radial Pulses (R), 2+ Radial Pulses (L) Gastrointestinal: soft, other (wound vac in place, ileostomies functioning) Extremity: No Pedal Edema, Swelling Neurologic/Psychiatric: Alert, Depressed Affect Skin: Warm/Dry Lymphatic: No Adenopathy Results Lab Laboratory Tests 03/16/19 15:51: Glucometer 109 03/16/19 20:02: Glucometer 107 03/17/19 00:16: Glucometer 129H 03/17/19 03:10: White Blood Count 15.3H, Red Blood Count 3.34L, Hemoglobin 10.0L, Hematocrit 31L , Mean Corpuscular Volume 92, Mean Corpuscular Hemoglobin 30, Mean Corpuscular Hemoglobin Concent 33, Red Cell Distribution Width 17.8H, Platelet Count 178, Mean Platelet Volume 10.5H, Neutrophils (%) (Auto) 89H, Lymphocytes (%) (Auto) 3L, Monocytes (%) (Auto) 8, Eosinophils (%) (Auto) 0, Basophils (%) (Auto) 0, Neutrophils # (Auto) 13.6H, Lymphocytes # (Auto) 0.5L, Monocytes # (Auto) 1.2H, Eosinophils # (Auto) 0.0, Basophils # (Auto) 0.0, Blood Gas Puncture Site RIGHT ARTLINE, Blood Gas Patient Temperature 35.7, Arterial Blood pH 7.53H, Arterial Blood Partial Pressure CO2 33L, Arterial Blood Partial Pressure O2 59L, Arterial Blood HCO3 27, Arterial Blood Total CO2 28.3, Arterial Blood Oxygen Saturation 93L, Arterial Blood Base Excess 4.2H, Kenny Test ARTLINE, Blood Gas Ventilator Setting NO, Blood Gas Inspired Oxygen 21% BIPAP, Sodium Level 149H, Potassium Level 4.2, Chloride Level 113H, Carbon Dioxide Level 23, Anion Gap 13, Blood Urea Nitrogen 66H, Creatinine 0.72, Estimat Glomerular Filtration Rate > 60, BUN/Creatinine Ratio 92, Glucose Level 164H, Calcium Level 7.4L, Phosphorus Level 4.6, Magnesium Level 2.0 03/17/19 07:32: Glucometer 172H 03/17/19 11:48: Glucometer 147H Microbiology 03/16/19 Blood Culture - Preliminary, Resulted No growth 03/16/19 C. difficile GDH Antigen & Toxins - Final, Complete 03/15/19 Mycobacterial Culture - Preliminary, Resulted 03/16/19 Urine Culture - Final, Complete NO GROWTH 03/16/19 Gram Stain - Final, Resulted 03/16/19 Body Fluid Culture - Preliminary, Resulted Gram Negative Sky Assessment/Plan Assessment/Plan Assessment/Plan S/P Fascial Closure with vicryl mesh, diverting ileostomy patient with stable bilateral pleural effusion and consolidation continue medical management continue IV abx continue to ileostomies and drain no other general surgery changes at this time Clinical Quality Measures DVT/VTE Risk/Contraindication: Risk Factor Score Per Nursin RFS Level Per Nursing on Admit: 4+=Very High GILA HAYWOOD,MED STUDENT Mar 17, 2019 12:03 POS
--- NOTE | 2019-03-17 12:57 | Progress Note - Cardiology ---
Cardiology SOAP Progress Note Subjective: More responsive today Denies cp or palp Gen malaise Objective: I&O/Vital Signs 03/17/19 03/17/19 03/17/19 03/17/19 01:00 01:00 01:25 02:00 Pulse 103 99 98 98 Resp 20 20 20 B/P (MAP) 184/44 (90) 173/43 (86) Pulse Ox 100 100 100 O2 Delivery NIV Bilevel NIV Bilevel O2 Flow Rate 21.00 21.00 21.00 03/17/19 03/17/19 03/17/19 03/17/19 03:00 03:57 04:00 04:00 Pulse 102 95 94 Resp 21 18 16 B/P (MAP) 184/44 (90) 172/39 (83) 170/38 (82) Pulse Ox 100 100 100 100 O2 Delivery NIV Bilevel Vapotherm Vapotherm NIV Bilevel O2 Flow Rate 21.00 15.00 15.00 20.00 21.00 21.00 FiO2 21 03/17/19 03/17/19 03/17/19 03/17/19 05:00 06:00 06:19 06:20 Pulse 96 99 Resp 17 19 B/P (MAP) 182/40 (87) 173/38 (83) Pulse Ox 100 100 100 100 O2 Delivery Vapotherm Vapotherm Vapotherm Vapotherm O2 Flow Rate 15.00 15.00 15.00 15.00 21.00 21.00 FiO2 21 21 03/17/19 03/17/19 03/17/19 03/17/19 06:20 07:00 07:00 08:00 Pulse 106 102 113 Resp 19 22 B/P (MAP) 193/44 (93) 155/35 (75) Pulse Ox 100 100 99 O2 Delivery Vapotherm Vapotherm Vapotherm O2 Flow Rate 15.00 15.00 15.00 21.00 21.00 FiO2 21 03/17/19 03/17/19 03/17/19 03/17/19 08:00 08:39 09:00 10:00 Temp 36.2 Pulse 108 106 Resp 19 21 B/P (MAP) 160/38 (78) 170/39 (82) Pulse Ox 100 100 100 O2 Delivery Vapotherm Vapotherm Vapotherm O2 Flow Rate 15.00 15.00 15.00 21.00 21.00 FiO2 21 03/17/19 03/17/19 03/17/19 03/17/19 10:35 10:35 11:00 11:16 Temp 36.9 Pulse 117 Resp 24 B/P (MAP) 150/37 (74) Pulse Ox 100 100 99 O2 Delivery Vapotherm Vapotherm Vapotherm O2 Flow Rate 15.00 15.00 15.00 21.00 FiO2 21 21 03/17/19 03/17/19 12:00 12:00 Pulse 102 Resp 21 B/P (MAP) 157/29 (71) Pulse Ox 100 100 O2 Delivery Vapotherm Vapotherm O2 Flow Rate 15.00 15.00 21.00 FiO2 21 03/17/19 00:00 Intake Total 1903 ml Output Total 3530 ml Balance -1627 ml Weight (Pounds): 160 Weight (Ounces): 0.0 Weight (Calculated Kilograms): [id number] Constitutional: other (More responsive, oriented to place and person) Respiratory: other (fair bilat air entry, diminished at the bases) Cardiovascular: regular rate-rhythm, S1 and S2, systolic murmur (faint GLENDA at card base) Gastrointestional: other (multiple recent surgeries; we did not attempt palp; bs are weak/absent) Extremities: other (mild, bilateral leg edema); No clubbing, No cyanosis Neurologic/Psychiatric: other (seems to be able to move all limbs, very weak, oriented x 2) Skin: normal color, cool, diaphoresis, damp Results/Procedures: Labs Laboratory Tests 03/16/19 15:51: Glucometer 109 03/16/19 20:02: Glucometer 107 03/17/19 00:16: Glucometer 129H 03/17/19 03:10: White Blood Count 15.3H, Red Blood Count 3.34L, Hemoglobin 10.0L, Hematocrit 31L , Mean Corpuscular Volume 92, Mean Corpuscular Hemoglobin 30, Mean Corpuscular Hemoglobin Concent 33, Red Cell Distribution Width 17.8H, Platelet Count 178, Mean Platelet Volume 10.5H, Neutrophils (%) (Auto) 89H, Lymphocytes (%) (Auto) 3L, Monocytes (%) (Auto) 8, Eosinophils (%) (Auto) 0, Basophils (%) (Auto) 0, Neutrophils # (Auto) 13.6H, Lymphocytes # (Auto) 0.5L, Monocytes # (Auto) 1.2H, Eosinophils # (Auto) 0.0, Basophils # (Auto) 0.0, Blood Gas Puncture Site RIGHT ARTLINE, Blood Gas Patient Temperature 35.7, Arterial Blood pH 7.53H, Arterial Blood Partial Pressure CO2 33L, Arterial Blood Partial Pressure O2 59L, Arterial Blood HCO3 27, Arterial Blood Total CO2 28.3, Arterial Blood Oxygen Saturation 93L, Arterial Blood Base Excess 4.2H, Kenny Test ARTLINE, Blood Gas Ventilator Setting NO, Blood Gas Inspired Oxygen 21% BIPAP, Sodium Level 149H, Potassium Level 4.2, Chloride Level 113H, Carbon Dioxide Level 23, Anion Gap 13, Blood Urea Nitrogen 66H, Creatinine 0.72, Estimat Glomerular Filtration Rate > 60, BUN/Creatinine Ratio 92, Glucose Level 164H, Calcium Level 7.4L, Phosphorus Level 4.6, Magnesium Level 2.0 03/17/19 07:32: Glucometer 172H 03/17/19 11:48: Glucometer 147H Microbiology 03/16/19 Blood Culture - Preliminary, Resulted No growth 03/16/19 C. difficile GDH Antigen & Toxins - Final, Complete 03/15/19 Mycobacterial Culture - Preliminary, Resulted 03/16/19 Urine Culture - Final, Complete NO GROWTH 03/16/19 Gram Stain - Final, Resulted 03/16/19 Body Fluid Culture - Preliminary, Resulted Gram Negative Sky Laboratory Tests 03/16/19 02:38 03/17/19 03:10 A/P: Assessment: Multiple abdominal surgeries during this admission for perforated viscus Fungemia and sepsis, managed by Hosp and ICU Svces Type 1 resp failure, managed by the Pul Svce Paroxysmal atrial fibrillation Echo 03/04/19 (Dr Montana): LVEF 75-80%, grade 1 cabezas dysfunction, mild to mod TR, PASP approx 35 mmHg Labile hypertension Mild CAD on card caths of 2012 and 2017 History of colon cancer, treated with surgery several years ago, in remission and followed by Dr. Branham History of hyperlipidemia H/o carotid artery stenosis that is followed by Dr Montana Diabetes mellitus II H/o obstructive sleep apnea, intolerance to CPAP Plan: * Complex management due to multiple comorbidities * We recommend full anticoag when acceptable from a surgical standpoint. Surgery did allow enoxaparin in DVT-prophylaxis dose on 03/16/19 * iv dilt for vent rate control, as needed * I discussed her CV issues with her daughter and answered her questions BETH ROMO MD FACP FAC CCDS Mar 17, 2019 12:57 POS
[2019-03-17] MEDS: DILTIAZEM IV FOR DRIP 125 MG in NS (IVPB) 100 ML IV SCH (14:49)
[2019-03-17] MEDS ORDERED: POTASSIUM ACETATE IV SCH ×9 (17:00)
[2019-03-17] MEDS ORDERED: [UNRECOGNIZED DRUG - OTHER] IV SCH ×9 (17:00)
[2019-03-17] MEDS ORDERED: POTASSIUM PHOSPHATE IV SCH ×9 (17:00)
--- NOTE | 2019-03-17 17:01 | NUR ---
NOTIFIED DR. RAMSEY REGARDING PATIENT SONIA DRAIN CULTURE GROWNING STENOTROPHOMONAS MALTOPHILIA. AREA MECHANIC NOTIFIED OF NEED FOR CONTACT ISOLATION R/T MULTI DRUG RESISTANCE
[2019-03-17] MEDS: ENOXAPARIN 40 MG/0.4 ML (LOVENOX) SYR SC SCH (19:55)
[2019-03-18] VITALS (27 sets, daily range): BP systolic 137–207; BP diastolic 31–82
[2019-03-18] MEDS: DILTIAZEM IV FOR DRIP 125 MG in NS (IVPB) 100 ML IV SCH ×2 (00:41→20:51)
[2019-03-18] MEDS: inSUlin ASPART (NovoLOG) 1 UNIT/0.01 ML (CHARGE PER UNIT) SQ SCH ×6 (00:41→20:42)
[2019-03-18] MEDS: RT-IPRATROPIUM (ATROVENT) 0.5MG/2.5ML AMP IH SCH ×6 (01:40→22:17)
[2019-03-18] MEDS: RT-LEVALBUTEROL (XOPENEX) 1.25 MG/3 ML NEB NON-FORMULARY INH SCH ×6 (01:40→22:17)
[2019-03-18] MEDS: MEROPENEM 500 MG/SWFI 10 ML IV PUSH IV SCH ×4 (03:13→10:12)
[2019-03-18] MEDS: morphine INJ 4 MG/ML 1 ML (VIAL/SYRINGE) IVP PRN ×3 (03:14→20:42)
[2019-03-18 03:38] LABS: ABG OXYGEN SATURATION 93 % (94-100); ABG PCO2 35 MMHG (35-45); ABG PO2 61 MMHG (79-93); ABG TCO2 28.5 MMOL/L (21.0-31.0); BASOPHILS % (AUTO) 0 % (0-10); EOSINOPHILS # (AUTO) 0.1 10^3/uL (0.0-0.3); EOSINOPHILS % (AUTO) 1 % (0-10); HEMATOCRIT 30 % (35-52); HEMOGLOBIN 9.7 G/DL (11.5-16.0); LYMPHOCYTES # (AUTO) 0.6 X 10^3 (1.0-4.0); LYMPHOCYTES % (AUTO) 4 % (12-44); MEAN CORPUSCULAR HEMOGLOBIN 31 PG (25-34); MEAN CORPUSCULAR HGB CONC 32 G/DL (32-36); MEAN CORPUSCULAR VOLUME 94 FL (80-99); MEAN PLATELET VOLUME 10.6 FL (7.4-10.4); MONOCYTES # (AUTO) 1.1 X 10^3 (0.0-1.0); MONOCYTES % (AUTO) 8 % (0-12); NEUTROPHILS # (AUTO) 12.7 X 10^3 (1.8-7.8); NEUTROPHILS % (AUTO) 88 % (42-75); PLATELET COUNT 187 10^3/uL (130-400); RED CELL DISTRIBUTION WIDTH 18.5 % (10.0-14.5); WHITE BLOOD COUNT 14.5 10^3/uL (4.3-11.0)
[2019-03-18 03:46] LABS: INSPIRED O2 N; PATIENT TEMP 36.1; VENTILATOR NO
[2019-03-18 04:03] LABS: BUN/CREATININE RATIO 80; CALCIUM 7.5 MG/DL (8.5-10.1); CARBON DIOXIDE 24 MMOL/L (21-32); CHLORIDE 118 MMOL/L (98-107); CREATININE SERUM 0.74 MG/DL (0.60-1.30); GFR ESTIMATED > 60; GLUCOSE 182 MG/DL (70-105); MAGNESIUM 2.2 MG/DL (1.6-2.4); PHOSPHORUS 3.8 MG/DL (2.3-4.7); POTASSIUM 3.9 MMOL/L (3.6-5.0); SODIUM 153 MMOL/L (135-145)
[2019-03-18] MEDS: POTASSIUM CL 10MEQ/50ML IVPB 50 ML IV SCH (04:18)
[2019-03-18] MEDS: KCL 20 MEQ TAB (K-DUR) PO SCH (04:18)
[2019-03-18] MEDS: MAGNESIUM 1 GM/100 ML IVPB 100 ML IV SCH (04:18)
--- NOTE | 2019-03-18 06:30 | Pulmonary Progress Note ---
Subjective Time Seen by a Provider: 05:32 Subjective/Events-last exam Currently on BiPAP at 21% Fi02 Sepsis Event Evaluation Height, Weight, BMI Height: 5'5.00" Weight: 160lbs. 0.0oz. 72.079484bm; 21.79 BMI Method:Stated Focused Exam Time of Focused Exam: 22:00 Exam Exam Vital Signs Date Time Temp Pulse Resp B/P (MAP) Pulse Ox O2 Delivery O2 Flow Rate FiO2 03/18/19 05:00 90 17 197/35 (88) 100 Vapotherm 15.00 21.00 03/18/19 04:00 100 NIV Bilevel 20.00 21 03/18/19 04:00 90 21 179/32 (81) 100 Vapotherm 15.00 21.00 03/18/19 03:00 98 25 183/39 (87) 100 Vapotherm 15.00 21.00 03/18/19 02:00 92 17 181/36 (84) 100 Vapotherm 15.00 21.00 03/18/19 01:43 86 13 100 50.00 03/18/19 01:40 86 13 100 50.00 03/18/19 01:00 98 19 182/37 (85) 100 Vapotherm 15.00 21.00 03/18/19 00:50 105 03/18/19 00:41 101 03/18/19 00:00 133 20 137/34 (68) 100 Vapotherm 15.00 21.00 03/18/19 00:00 100 NIV Bilevel 20.00 21 03/17/19 23:00 99 18 164/29 (74) 100 Vapotherm 15.00 21.00 03/17/19 22:21 98 20 100 21.00 03/17/19 22:00 107 20 148/32 (70) 98 Vapotherm 15.00 21.00 03/17/19 21:40 98 Vapotherm 15.00 21 03/17/19 21:39 98 Vapotherm 15.00 21 03/17/19 21:00 115 21 150/33 (72) 98 Vapotherm 15.00 21.00 03/17/19 20:00 100 Vapotherm 15.00 21 03/17/19 20:00 110 19 169/33 (78) 100 Vapotherm 15.00 21.00 03/17/19 19:21 36.6 03/17/19 19:00 142 22 145/36 (72) 99 Vapotherm 15.00 21.00 03/17/19 19:00 142 03/17/19 18:46 126 03/17/19 18:10 100 Vapotherm 15.00 21 03/17/19 18:10 100 Vapotherm 15.00 21 03/17/19 18:08 100 Vapotherm 15.00 21 03/17/19 18:00 130 23 140/35 (70) 100 Vapotherm 15.00 21.00 03/17/19 17:00 112 23 154/36 (75) 100 Vapotherm 15.00 21.00 03/17/19 16:00 100 Vapotherm 15.00 21 03/17/19 16:00 108 18 154/34 (74) 100 Vapotherm 15.00 21.00 03/17/19 15:17 36.2 03/17/19 15:00 107 18 150/34 (72) 100 Vapotherm 15.00 21.00 03/17/19 14:00 114 22 174/43 (86) 99 Vapotherm 15.00 21.00 03/17/19 13:58 98 Vapotherm 15.00 21 03/17/19 13:00 107 18 148/31 (70) 97 Vapotherm 15.00 21.00 03/17/19 13:00 113 03/17/19 12:00 102 21 157/29 (71) 100 Vapotherm 15.00 21.00 03/17/19 12:00 100 Vapotherm 15.00 21 03/17/19 11:16 36.9 03/17/19 11:00 117 24 150/37 (74) 99 Vapotherm 15.00 21.00 03/17/19 10:35 100 Vapotherm 15.00 21 03/17/19 10:35 100 Vapotherm 15.00 21 03/17/19 10:00 106 21 170/39 (82) 100 Vapotherm 15.00 21.00 03/17/19 09:00 108 19 160/38 (78) 100 Vapotherm 15.00 21.00 03/17/19 08:39 100 Vapotherm 15.00 21 03/17/19 08:00 36.2 03/17/19 08:00 113 22 155/35 (75) 99 Vapotherm 15.00 21.00 03/17/19 07:00 102 19 193/44 (93) 100 Vapotherm 15.00 21.00 03/17/19 07:00 106 I & O 03/18/19 07:00 Intake Total 2343.7333 ml Output Total 3920 ml Balance -1576.2667 ml Height & Weight Height: 5'5.00" Weight: 160lbs. 0.0oz. 72.549515jg; 21.79 BMI Method:Stated General Appearance: No Apparent Distress, Chronically ill HEENT: PERRL/EOMI Neck: Normal Inspection, Supple Respiratory: No Accessory Muscle Use, No Respiratory Distress, Decreased Breath Sounds Cardiovascular: Regular Rate, Rhythm, No Murmur Capillary Refill: Less Than 3 Seconds Peripheral Pulses: 2+ Dorsalis Pedis (R), 2+ Left Dors-Pedis (L), 2+ Radial Pulses (R), 2+ Radial Pulses (L) Gastrointestinal: soft, other (wound vac in place, ileostomies functioning) Extremity: No Pedal Edema, Swelling Neurologic/Psychiatric: Alert, Depressed Affect Skin: Warm/Dry Lymphatic: No Adenopathy Results Lab Laboratory Tests 03/17/19 03:10 03/18/19 03:25 Assessment/Plan Assessment/Plan Acute respiratory failure with hypoxia -continue TPN -Decrease Na and CL in TPN secondary to hypernatremia and hyperchloremia -BiPAP QHS only -Pt is not requiring oxygen -DUoneb with easy PAP Q4 -Continue Cardene for BP <180 (Current SBP is 220) Stenotrophomonas from SONIA drain -Currently on Merrem and Zyvox -Change Zyvox to BCTM. Hypertension -Cardene- Continue Atelectasis s/p Bronchoscopy -Await farmer cultures --DUoneb with easy PAP Q4 Hyperglycemia -Change to Q4 accu checks -pt's accu checks running in the low 200's (03/13) -accu checks in mid to upper 200's (03/14) -Continue D5 secondary to pt's severe malnutrition state. anemia s/p 4 units PRBC -Monitor recurrent perforated abdominal viscus -Cont Merrem and Eraxis -status post small bowel resection and diverting ileostomy and WoundVac placement Protein jorge malnutrition with low albumin and anasarca - prealbumin - <3 -Continue TPN Fungemia secondary to abdominal perforation -Eraxis Grade 1 diastolic dysfunction -Monitor Afib - currently sinus DM II Debility -PT/OT JAZMYNE THOMPSON DO Mar 18, 2019 06:30 POS
[2019-03-18] MEDS: TRIM/SULFAMETH 160/800 (SEPTRA DS) TAB PO SCH ×2 (07:09→17:28)
--- NOTE | 2019-03-18 07:50 | Diagnostic Imaging Report ---
INDICATION: Dyspnea Upright portable AP view of the chest is obtained with comparison made to the study of one day earlier. There has been increase in bilateral basilar airspace disease with air bronchograms. There is also blunting of the costophrenic sulci. No definite pneumothorax identified. Nasogastric tube and right upper extremity PICC are in stable position. IMPRESSION: Increasing basilar infiltrates could be due to pneumonia with associated increasing bilateral pleural fluid or thickening. Dictated by: Dictated on workstation # [id number]
--- NOTE | 2019-03-18 08:07 | Progress Note - Surgery ---
BECCA CHANDLER MED STUDENT 03/18/19 0807: Subjective Date Seen by a Provider: Mar 18, 2019 Time Seen by a Provider: 07:00 Subjective/Events-last exam Ms. Samson was awake and alert today, but was very tired and felt weak, more than yesterday. Her speaking voice very soft and it was difficult to understand at times, daughter was present who helped by letting me know what she was saying at times, and also with giving her opinion on how she was doing today. Ms. Samson did not answer some questions. All drains show serous fluid, woundvac drainage was orange. She is on room oxygen today. Her only complaints were lack of sleep, feeling warm, and feeling fullness in her abdomen. Review of Systems General: Fatigue, Other (warm/flushed) Pulmonary: No Dyspnea, No Cough Cardiovascular: No: Chest Pain, Lt Headedness Gastrointestinal: Abdominal Pain (when she movess, not at rest), Other (fullness); No: Nausea Neurological: Weakness; No: Confusion Focused Exam Time of Focused Exam: 22:00 Objective Exam Vital Signs Date Time Temp Pulse Resp B/P (MAP) Pulse Ox O2 Delivery O2 Flow Rate FiO2 03/18/19 07:35 96 Room Air 03/18/19 05:00 90 17 197/35 (88) 100 Vapotherm 15.00 21.00 03/18/19 04:00 100 NIV Bilevel 20.00 21 03/18/19 04:00 90 21 179/32 (81) 100 Vapotherm 15.00 21.00 03/18/19 03:00 98 25 183/39 (87) 100 Vapotherm 15.00 21.00 03/18/19 02:00 92 17 181/36 (84) 100 Vapotherm 15.00 21.00 03/18/19 01:43 86 13 100 50.00 03/18/19 01:40 86 13 100 50.00 03/18/19 01:00 98 19 182/37 (85) 100 Vapotherm 15.00 21.00 03/18/19 00:50 105 03/18/19 00:41 101 03/18/19 00:00 133 20 137/34 (68) 100 Vapotherm 15.00 21.00 03/18/19 00:00 100 NIV Bilevel 20.00 21 03/17/19 23:00 99 18 164/29 (74) 100 Vapotherm 15.00 21.00 03/17/19 22:21 98 20 100 21.00 03/17/19 22:00 107 20 148/32 (70) 98 Vapotherm 15.00 21.00 03/17/19 21:40 98 Vapotherm 15.00 21 03/17/19 21:39 98 Vapotherm 15.00 21 03/17/19 21:00 115 21 150/33 (72) 98 Vapotherm 15.00 21.00 03/17/19 20:00 100 Vapotherm 15.00 21 03/17/19 20:00 110 19 169/33 (78) 100 Vapotherm 15.00 21.00 03/17/19 19:21 36.6 03/17/19 19:00 142 22 145/36 (72) 99 Vapotherm 15.00 21.00 03/17/19 19:00 142 03/17/19 18:46 126 03/17/19 18:10 100 Vapotherm 15.00 21 03/17/19 18:10 100 Vapotherm 15.00 21 03/17/19 18:08 100 Vapotherm 15.00 21 03/17/19 18:00 130 23 140/35 (70) 100 Vapotherm 15.00 21.00 03/17/19 17:00 112 23 154/36 (75) 100 Vapotherm 15.00 21.00 03/17/19 16:00 100 Vapotherm 15.00 21 03/17/19 16:00 108 18 154/34 (74) 100 Vapotherm 15.00 21.00 03/17/19 15:17 36.2 03/17/19 15:00 107 18 150/34 (72) 100 Vapotherm 15.00 21.00 03/17/19 14:00 114 22 174/43 (86) 99 Vapotherm 15.00 21.00 03/17/19 13:58 98 Vapotherm 15.00 21 03/17/19 13:00 107 18 148/31 (70) 97 Vapotherm 15.00 21.00 03/17/19 13:00 113 03/17/19 12:00 102 21 157/29 (71) 100 Vapotherm 15.00 21.00 03/17/19 12:00 100 Vapotherm 15.00 21 03/17/19 11:16 36.9 03/17/19 11:00 117 24 150/37 (74) 99 Vapotherm 15.00 21.00 03/17/19 10:35 100 Vapotherm 15.00 21 03/17/19 10:35 100 Vapotherm 15.00 21 03/17/19 10:00 106 21 170/39 (82) 100 Vapotherm 15.00 21.00 03/17/19 09:00 108 19 160/38 (78) 100 Vapotherm 15.00 21.00 03/17/19 08:39 100 Vapotherm 15.00 21 I & O 03/18/19 07:00 Intake Total 2343.7333 ml Output Total 4820 ml Balance -2476.2667 ml Capillary Refill : Less Than 3 SecondsLess Than 3 Seconds General Appearance: Chronically ill, Other (fatigued) HEENT: PERRL/EOMI Neck: Normal Inspection, Non Tender, Supple Respiratory: Lungs Clear, No Accessory Muscle Use, No Respiratory Distress Cardiovascular: Regular Rate, Rhythm; No No Edema (edema of hands and feet); Normal Peripheral Pulses, Systolic Murmur Peripheral Pulses: 2+ Dorsalis Pedis (R), 2+ Left Dors-Pedis (L), 2+ Radial Pulses (R), 2+ Radial Pulses (L) Gastrointestinal: soft, tenderness (all quadrants on palpation), other (wound vac in place, ileostomies functioning) Extremity: Calf Tenderness (bilateral), Pedal Edema Neurologic/Psychiatric: Alert; No Oriented x3 (questionable, not answering questions fully if at all); Disoriented (questionable, not answering questions fully if at all) Skin: Warm/Dry Lymphatic: No Adenopathy Results Lab Laboratory Tests 03/17/19 11:48: Glucometer 147H 03/17/19 16:57: Glucometer 127H 03/17/19 19:49: Glucometer 146H 03/18/19 00:37: Glucometer 167H 03/18/19 03:25: White Blood Count 14.5H, Red Blood Count 3.17L, Hemoglobin 9.7L, Hematocrit 30L, Mean Corpuscular Volume 94, Mean Corpuscular Hemoglobin 31, Mean Corpuscular Hemoglobin Concent 32, Red Cell Distribution Width 18.5H, Platelet Count 187, Mean Platelet Volume 10.6H, Neutrophils (%) (Auto) 88H, Lymphocytes (%) (Auto) 4L, Monocytes (%) (Auto) 8, Eosinophils (%) (Auto) 1, Basophils (%) (Auto) 0, Neutrophils # (Auto) 12.7H, Lymphocytes # (Auto) 0.6L, Monocytes # (Auto) 1.1H, Eosinophils # (Auto) 0.1, Basophils # (Auto) 0.0, Blood Gas Puncture Site RIGHT RADIAL, Blood Gas Patient Temperature 36.1, Arterial Blood pH 7.50H, Arterial Blood Partial Pressure CO2 35, Arterial Blood Partial Pressure O2 61L, Arterial Blood HCO3 27, Arterial Blood Total CO2 28.5, Arterial Blood Oxygen Saturation 93L, Arterial Blood Base Excess 4.0H, Kenny Test [place].21%, Blood Gas Ventilator Setting NO, Blood Gas Inspired Oxygen N, Sodium Level 153H, Potassium Level 3.9, Chloride Level 118H, Carbon Dioxide Level 24, Anion Gap 11, Blood Urea Nitrogen 59H, Creatinine 0.74, Estimat Glomerular Filtration Rate > 60, BUN/Creatinine Ratio 80, Glucose Level 182H, Calcium Level 7.5L, Phosphorus Level 3.8, Magnesium Level 2.2 Microbiology 03/16/19 Blood Culture - Preliminary, Resulted No growth 03/16/19 C. difficile GDH Antigen & Toxins - Final, Complete 03/15/19 Mycobacterial Culture - Preliminary, Resulted 03/16/19 Urine Culture - Final, Complete NO GROWTH 03/16/19 Gram Stain - Final, Resulted 03/16/19 Body Fluid Culture - Preliminary, Resulted Stenotrophomonas Maltophilia Assessment/Plan Assessment/Plan Assessment/Plan S/P Fascial Closure with vicryl mesh, diverting ileostomy stenotrophomonas maltophilia cultured from SONIA drain stable bilateral pleural effusion and consolidation on CXR Monitor output of ileostomies and drains, continue IV antibiotics. Wound vac to be changed today. Clinical Quality Measures DVT/VTE Risk/Contraindication: Risk Factor Score Per Nursin RFS Level Per Nursing on Admit: 4+=Very High MISSY MONTEJO DO 03/18/19 1403: Subjective Time Seen by a Provider: 13:29 Subjective/Events-last exam Pt seen and examined, appears to be doing well and no acute distress. Objective Exam Gastrointestinal: other (wound vac with clear serous drainage; ileostomies pink and functioning, SONIA drains with minimal serous drainage) Assessment/Plan Assessment/Plan Assessment/Plan S/P SBR, Fascial closure, jejunostomy creation Pt will need rehab, M-W-F VAC changes, ABX, retirement TPN and close care. Spoke with team from [facility], they are willing to take her tomorrow. Supervisory-Addendum Brief Verification & Attestation Participated in pt care: history, MDM, physical Personally performed: history, MDM Care discussed with: Medical Student Procedures: n/a Verification and Attestation of Medical Student E/M Service A medical student performed and documented this service in my presence. I reviewed and verified all information documented by the medical student and made modifications to such information, when appropriate. I personally performed the physical exam and medical decision making. Missy Montejo, Mar 18, 2019,14:02 BECCA CHANDLER MED STUDENT Mar 18, 2019 08:07 MISSY JAMES DO Mar 18, 2019 14:03 POS
[2019-03-18] MEDS: BUMETANIDE 1 MG/4 ML (BUMEX) VIAL IV SCH ×2 (08:34→20:41)
[2019-03-18] MEDS: PANTOPRAZOLE 40 MG (PROTONIX) VIAL IV SCH (08:34)
[2019-03-18] MEDS: PATCH REMOVAL TP SCH (08:34)
--- NOTE | 2019-03-18 08:34 | Cardiology Progress Note ---
Subjective Date Seen by Provider: Mar 18, 2019 Time Seen by Provider: 08:32 Subjective/Events-last exam Patient is laying down in bed, no new complaint Lethargic, denied any chest pain, breathing is better. Review of Systems General: No Chills, No Night Sweats; Fatigue, Malaise; No Appetite, No Other HEENT: No Head Aches, No Visual Changes, No Eye Pain, No Ear Pain, No Dysphasia, No Sinus Congestion, No Post Nasal Drip, No Sore Throat, No Other Pulmonary: No Dyspnea, No Cough, No Pleuritic Chest Pain, No Other Cardiovascular: Edema; No: Chest Pain, Palpitations, Orthopnea, Paroxysmal Noc. Dyspnea, Lt Headedness, Other Focused Exam Time of Focused Exam: 22:00 Objective-Cardiology Exam Last Set of Vital Signs Vital Signs 03/17/19 03/18/19 03/18/19 03/18/19 19:21 05:00 07:35 08:20 Temp 36.6 Pulse 92 Resp 17 B/P (MAP) 197/35 (88) Pulse Ox 96 O2 Delivery Room Air O2 Flow Rate 15.00 21.00 Capillary Refill : Less Than 3 SecondsLess Than 3 Seconds I&O Intake and Output 03/18/19 00:00 Intake Total 2343.7333 ml Output Total 4370 ml Balance -2026.2667 ml Intake Oral 0 ml IV Total 2343.7333 ml Output Urine Total 1950 ml Gastric Drainage Total 0 ml Drainage Total 2120 ml Other 300 ml General: Alert, Oriented X3, Cooperative, Mild Distress HEENT: Atraumatic, PERRLA Neck: Supple, No Thyromegaly Lungs: Clear to Auscultation, Normal Air Movement Heart: Regular Rate, Normal S1, Normal S2, No Murmurs Abdomen: No Masses, Other (Diminished bowel sounds) Extremities: No Clubbing, No Cyanosis, Normal Pulses, No Tenderness/Swelling, Other (Bilateral edema) Skin: No Rashes Neuro: Normal Speech, Sensation Intact Psych/Mental Status: Mental Status NL Results Lab Laboratory Tests 03/18/19 03:25 A/P-Cardiology Admission Diagnosis Acute respiratory failure Paroxysmal atrial fibrillation Coronary artery disease Hypertension Assessment/Plan Sepsis, multiple abdominal surgery, had bowel resection and diverting ileostomy, last procedure was done on March 13, 2019 showing no further leak, had wound VAC applied and washout, recovering slowly Status post respiratory failure, extubated at this time and improving slowly Paroxysmal atrial fibrillation, has been in and out of atrial fibrillation multiple times, maintained in sinus rhythm at this time, receiving Cardizem drip. Continue to monitor Labile hypertension, currently blood pressure is elevated while on Cardizem drip, receiving as needed enalapril and hydralazine IV. I will restart clonidine patch at 0.1 mg and will consider increasing the dose as needed S/p small bowel resection secondary to perf at anastomosis site, had multiple surgery for recurrent perforation, had SB resection with diverting ileostomy and lavage on 03/11, had another surgery on March 13, 2019 with evaluation for any further leak, had a wound VAC. Managed by surgical team Saray, use Lasix as needed and monitor urine output and renal function Coronary artery disease, history of cardiac catheterization in July 2012 showing 50 percent midright coronary artery stenosis, nonobstructive disease, had a borderline disease in the midright coronary artery. Most recent cardiac catheterization done April 2018 revealed mild ectasia in the proximal LAD with mild disease in the mid LAD, small vessel disease distally, mild ectasia in the proximal circumflex artery and 40-50 percent stenosis in the mid right coronary artery, nonobstructive disease, continue to monitor History of colon cancer, history of colon resection and colostomy in the remote past has been in remission and followed by Dr. Branham History of hyperlipidemia Carotid artery stenosis , continue to monitor as outpatient. Syncope, had a syncopal episode in October 2015 probably due to dehydration. Was in renal failure. Improved. History of thyroid nodules noted on ultrasound, followed by Dr. Branham and Dr. Simmons Diabetes mellitus, followed and managed by primary care physician. History of colon cancer, history of colostomy. Currently in remission. Followed by Dr. Branham Family history of coronary artery disease. Obstructive sleep apnea, intolerance to CPAP History of appendectomy, kidney stones, hysterectomy. Breast biopsy. Clinical Quality Measures DVT/VTE Risk/Contraindication: Risk Factor Score Per Nursin RFS Level Per Nursing on Admit: 4+=Very High NAYA URIAS MD Mar 18, 2019 08:34 POS
[2019-03-18] MEDS: ANIDULAFUNGIN INJECTION 100 MG in NS (IVPB) 100 ML IV SCH (08:52)
[2019-03-18] MEDS ORDERED: cloNIDine 0.1 MG PATCH (CATAPRES TTS) TDSY TD SCH (09:00)
--- NOTE | 2019-03-18 09:04 | NUR ---
TPN: TPN CONTINUES AT 64 ML/HR PROVIDING 1590 KCAL WITH 100 GM PROTEIN. SODIUM ELEVATED, SODIUM REMOVED FROM TPN ON 03-17-2019. PLAN; ADD LIPIDS TO TPN IN PENDING LABS, BRINGING KCAL UP TO OR NEAR 1740 KCAL.
--- NOTE | 2019-03-18 10:30 | NUR ---
RD FOLLOW-UP Pt currently receiving nutrition via TPN. Given pt's current condition, TPN is best route to meet caloric needs. Current TPN order provides 1590 kcal (19 kcal/kg) and 100 g Pro (1.2 g Pro/kg), and based on pt's current wt status, this provides adequate nutrition for recovery and wound healing. Note Pharm note about adding lipids to increase kcal to 1740 kcal. This increase in kcal would be sufficient to meet pt's needs at this time. Will continue to follow and reassess the pt when oral or enteral nutrition is appropriate. Ambrose Cuenca, MS, RD, LD
[2019-03-18] MEDS: hydrALAZINE (APESOLINE) 20 MG/ML VIAL IV PRN (11:41)
--- NOTE | 2019-03-18 14:07 | Physical Therapy Daily Note ---
PT Daily Note-Current Subjective Patient co-treated with OT to perform bed mobility/exercises during sponge bath. Patient sometimes unresponsive and mumbles when talking. Mental Status Patient Orientation: Unresponsive, Mumbles Attachments: NG Tube, SCD's, Oxygen (vapotherm), Wing Catheter, IV Transfers SCALE: Activities may be completed with or without assistive devices. 7-Syclsvlmwe-idmcybq completes the activity by him/herself with no assistance from a helper. 5-Set-up or Clean-up Assistance-helper sets up or cleans up; patient completes activity. [place] assists only prior to or following the activity. 4-Supervision or Touching Assistance-helper provides verbal cues and/or touching/steadying and/or contact guard assistance as patient completes activity. Assistance may be provided throughout the activity or intermittently. 3-Partial/Moderate Assistance-helper does LESS THAN HALF the effort. [place] lifts, holds or supports trunk or limbs, but provides less than half the effort. 2-Substantial/Maximal Assistance-helper does MORE THAN HALF the effort. [place] lifts or holds trunk or limbs and provides more than half the effort. 6-Dgtwuwjet-esmzdj does ALL the effort. Patient does none of the effort to complete the activity. Or, the assistance of 2 or more helpers is required for the patient to complete the activity. If activity was not attempted, code reason: 7-Patient Refused. 9-Not Applicable-not attempted and the patient did not perform the activity before the current illness, exacerbation or injury. 10-Not Attempted due to Environmental Limitations-(lack of equipment, weather restraints, etc.). 88-Not Attempted due to Medical Conditions or Safety Concerns. Roll Left to Right (QC): 1 Weight Bearing Right Lower Extremity: Right Weight Bearing/Tolerated Left Lower Extremity: Left Weight Bearing/Tolerated Exercises Supine Ex: Ankle pumps, Heel Slides Supine Reps: 5 Assessment Patient co-treated with OT for safety and assistance with dependent bed mobility during sponge bathing. Patient was unable to assist with rolling during bed mobility. Patient was able to assist moving UE and LE during bathing. Patient performed ankle pumps and heel slide exercises with minimal assistance. Patient repositioned in bed with legs elevated and pillows under arms and head. PT Short Term Goals Short Term Goals Time Frame: Mar 23, 2019 Gait Distance Comment: 10' Gait Assistive Device: FWW PT Halfway Goals Direct Response Consultant Goals PT Direct Response Consultant Goals Time Frame: Apr 06, 2019 Sit to Lying (QC): 5 Lying-Sitting on Side/Bed(QC): 5 Sit to Stand (QC): 5 Roll Left to Right (QC): 5 Chair/Gex-jo-Bsfjp Xfer(QC): 5 Does the Patient Walk: Yes Distance: 150' Walk 10 feet (QC): 5 Walk 10ft-Uneven Surface(QC): 5 Walk 50ft with 2 Turns (QC): 5 Walk 150 ft (QC): 5 Gait Assistive Device: FWW PT Plan Treatment/Plan Treatment Plan: Continue Plan of Care Treatment Plan: Bed Mobility, Education, Functional Activity José, Functional Strength, Gait, Safety, Therapeutic Exercise, Transfers Treatment Duration: Apr 06, 2019 Frequency: 6 times per week Estimated Hrs Per Day: .5 hour per day Patient and/or Family Agrees t: Yes Time/GCodes Time In: 1308 Time Out: 1328 Total Billed Treatment Time: 20 Total Billed Treatment 1 visit FA 20min CHIDI AMAYA PT Mar 18, 2019 14:07 POS
--- NOTE | 2019-03-18 15:02 | Occupational Ther Daily Note ---
OT Current Status-Daily Note Subjective Pt seen in bed, ADL-Treatment Therapy Code Descriptions/Definitions Functional [place] Measure: 0=Not Assessed/NA 4=Minimal Assistance 1=Total Assistance 5=Supervision or Setup 2=Maximal Assistance 6=Modified [place] 3=Moderate Assistance 7=Complete IndependenceSCALE: Activities may be completed with or without assistive devices. 1-Saihyzdcan-hthkjxf completes the activity by him/herself with no assistance from a helper. 5-Set-up or Clean-up Assistance-helper sets up or cleans up; patient completes activity. [place] assists only prior to or following the activity. 4-Supervision or Touching Assistance-helper provides verbal cues and/or touching/steadying and/or contact guard assistance as patient completes activity. Assistance may be provided throughout the activity or intermittently. 3-Partial/Moderate Assistance-helper does LESS THAN HALF the effort. [place] lifts, holds or supports trunk or limbs, but provides less than half the effort. 2-Substantial/Maximal Assistance-helper does MORE THAN HALF the effort. [place] lifts or holds trunk or limbs and provides more than half the effort. 7-Yyxoedejw-bgofid does ALL the effort. Patient does none of the effort to complete the activity. Or, the assistance of 2 or more helpers is required for the patient to complete the activity. If activity was not attempted, code reason: 7-Patient Refused. 9-Not Applicable-not attempted and the patient did not perform the activity before the current illness, exacerbation or injury. 10-Not Attempted due to Environmental Limitations-(lack of equipment, weather restraints, etc.). 88-Not Attempted due to Medical Conditions or Safety Concerns. OT Short Term Goals Short Term Goals 1=Demonstrate adherence to instructed precautions during ADL tasks. 2=Patient will verbalize/demonstrate understanding of assistive devices/modifications for ADL. 3=Patient will improve strength/tolerance for activity to enable patient to perform ADL's. OT Skilled Nursing Goals Rn Relief Charge Goals Time Frame: Apr 05, 2019 Eating (QC): 3 Oral Hygiene (QC): 3 Shower/Bathe Self (QC): 3 Upper Body Dressing (QC): 3 Lower Body Dressing (QC): 2 On/Off Footwear (QC): 2 Toileting Hygiene (QC): 2 Toilet/Commode Transfer (QC): 2 Additional Goals: 1-Demonstrate ADL Tasks, 2-Verbalize Understanding, 3- ImproveStrength/José 1=Demonstrate adherence to instructed precautions during ADL tasks. 2=Patient will verbalize/demonstrate understanding of assistive devices/modifications for ADL. 3=Patient will improve strength/tolerance for activity to enable patient to perform ADL's. OT Education/Plan Treatment Plan/Plan of Care Patient would benefit from OT for education, treatment and training to promote independence in ADL's, mobility, safety and/or upper extremity function for ADL's. Plan of Care: ADL Retraining, Caregiver Training, Cognitive Retraining, Concurrent Therapy, Functional Mobility, UE Funct Exercise/Act Treatment Duration: Apr 05, 2019 Frequency: 5 times per week Estimated Hrs Per Day: .25 hour per day Agreement: Yes Rehab Potential: YANIRA Huerta OTR Mar 18, 2019 15:02 POS
--- NOTE | 2019-03-18 15:06 | Progress Note - Hospitalist ---
Subjective HPI/CC On Admission Date Seen by Provider: Mar 18, 2019 Time Seen by Provider: 09:00 abdominal pain Subjective/Events-last exam She has no complaints or concerns. She denies pain. She denies fevers and chills. She denies chest pain and dyspnea. She denies abdominal pain, nausea, and vomiting. Focused Exam Time of Focused Exam: 22:00 Objective Exam Vital Signs Vital Signs Date Time Temp Pulse Resp B/P (MAP) Pulse Ox O2 Delivery O2 Flow Rate FiO2 03/18/19 14:37 96 Room Air 03/18/19 12:00 99 22 159/39 (79) 15.00 21.00 03/18/19 04:00 21 03/17/19 19:21 36.6 Capillary Refill : Less Than 3 SecondsLess Than 3 Seconds General Appearance: No Apparent Distress, WD/WN HEENT: PERRL/EOMI, Pharynx Normal, Other (NG tube in place) Neck: Normal Inspection, Supple Respiratory: Lungs Clear, No Respiratory Distress Cardiovascular: Regular Rate, Rhythm, No Edema, Systolic Murmur Gastrointestinal: Abnormal Bowel Sounds (hypoactive), Other (wound vac and ostomy in place) Extremity: Pedal Edema, Swelling Neurologic/Psychiatric: Alert, Disoriented Skin: Warm/Dry, Pallor Lymphatic: No Adenopathy Results/Procedures Lab Laboratory Tests 03/18/19 03:25 Patient resulted labs reviewed. Imaging: Reviewed Imaging Report Assessment/Plan Assessment and Plan Assess & Plan/Chief Complaint Perforated abdominal viscus -Management per primary -Continue meropenem, eraxis, and Zyvox -Multiple abdominal surgeries this admission- doing well following surgery on 03/13 -Wound vac in place, ostomy in place, doing well Acute hypoxemic respiratory failure -Extubated on 03/15 -Pulmonology following -On room air this morning Leukocytosis Fungemia -Continue Eraxis, Merrem, Zyvox -Will need 14 days treatment from negative blood cultures- consider DCing next week if remains stable -Paul culture- NGTD Lactic acidosis, resolved Shock, resolved - off steroids Acute kidney injury- resolved Hypernatremia, resolved -Cr stable, UOP adequate, responding to lasix -Monitor UOP closely Severe protein-calorie malnutrition -Continue TPN -Prealbumin <3 Postoperative anemia -Hgb improved post-transfusion, stable -Continue to monitor Hypertension -Hydralazine prn -Vasotec prn Paroxysmal atrial fibrillation -Cardiology following T2DM - Sliding scale insulin Critical illness myopathy -PT/OT -Transfer to [facility] tomorrow Critical Care Critically Ill Patient Diagnosis/Problems Diagnosis/Problems (1) Perforated abdominal viscus Status: Acute (2) Fungemia Status: Acute (3) Acute respiratory failure Status: Acute Qualifiers: Respiratory failure complication: unspecified whether with hypoxia or hypercapnia Qualified Codes: J96.00 - Acute respiratory failure, unspecified whether with hypoxia or hypercapnia (4) Essential hypertension Status: Chronic (5) Critical illness myopathy Status: Acute (6) IDDM (insulin dependent diabetes mellitus) Status: Chronic (7) Acute renal failure Status: Acute Qualifiers: Acute renal failure type: with acute tubular necrosis Qualified Codes: N17.0 - Acute kidney failure with tubular necrosis Clinical Quality Measures DVT/VTE Risk/Contraindication: Risk Factor Score Per Nursin RFS Level Per Nursing on Admit: 4+=Very High NAIMA ROMAN MD Mar 18, 2019 15:06 POS
--- NOTE | 2019-03-18 15:20 | NUR ---
Contacted pt's daughter Jeni about the continued care plan to transfer pt to [facility] in [place], [place]. Also advised daughter that [place] [employer] would be contacting her for further information and could answer any questions. Family also advised that if they had any questions or concerns to contact her physician.
--- NOTE | 2019-03-18 15:40 | Occupational Ther Daily Note ---
OT Current Status-Daily Note Subjective PT/ OT cotreatment due to severity of weakness, safety, and dependence in transfers and mobility. OT focuses on UB movement, communication, and ADL abilities; PT focuses on LB movement, bed mobility, and gross motor movements. Pt seen in bed, pt does not express pain while in bed; pt grimaces during bed mobility. Pt agreeable to OT/ PT cotreat. Mental Status/Objective Attachments: Colostomy/Ileostomy, IV, Suprapubic Catheter, Telemetry, Other-See Comments (wound vac) ADL-Treatment Therapy Code Descriptions/Definitions Functional [place] Measure: 0=Not Assessed/NA 4=Minimal Assistance 1=Total Assistance 5=Supervision or Setup 2=Maximal Assistance 6=Modified [place] 3=Moderate Assistance 7=Complete IndependenceSCALE: Activities may be completed with or without assistive devices. 8-Lpjjxirhwy-miedenl completes the activity by him/herself with no assistance from a helper. 5-Set-up or Clean-up Assistance-helper sets up or cleans up; patient completes activity. [place] assists only prior to or following the activity. 4-Supervision or Touching Assistance-helper provides verbal cues and/or touching/steadying and/or contact guard assistance as patient completes act ivity. Assistance may be provided throughout the activity or intermittently. 3-Partial/Moderate Assistance-helper does LESS THAN HALF the effort. [place] lifts, holds or supports trunk or limbs, but provides less than half the effort. 2-Substantial/Maximal Assistance-helper does MORE THAN HALF the effort. [place] lifts or holds trunk or limbs and provides more than half the effort. 7-Velsjcool-oyzzhx does ALL the effort. Patient does none of the effort to complete the activity. Or, the assistance of 2 or more helpers is required for the patient to complete the activity. If activity was not attempted, code reason: 7-Patient Refused. 9-Not Applicable-not attempted and the patient did not perform the activity before the current illness, exacerbation or injury. 10-Not Attempted due to Environmental Limitations-(lack of equipment, weather restraints, etc.). 88-Not Attempted due to Medical Conditions or Safety Concerns. Oral Hygiene (QC): 1 (Pt states, "dry" with very weak voice. Pt given damp sponge, completes oral dampening and hygiene with TD. Pt's nurse notified of dryness; moisture gel placed on sponge and moistened lips/ mouth with TD) Shower/Bathe Self (QC): 1 (Pt able to squeeze hands with minimal muscle strength. Pt unable to complete AROM in functional range of UE. Pt TD with sponge bath in bed; PT assisted with bed mobility as OT focused on cleaning UE/ LE) Upper Body Dressing (QC): 1 (gown doff/ don with TD.) Other Treatment Pt agreeable to sponge bath. Complete with warm wipes and shower cap with TD. Pt completes AROM/ PROM of BUE during bathing- pt has slight muscle movement to small joints (fingers/ wrists), cannot complete AROM to larger joints, PROM to f ull range of BUE. Pt repositioned for comfort with facial expressions/ small vocalizations for understanding. Pt completes fists and wrist extension/ flexions with encouragement, educated on importance of movement. Pt's UE propped to encourage edema decreasing, pads placed under BUE due to weeping of L UE. Pt left in bed with call light in reach/ all needs met. Education OT Patient Education: Correct positioning, Exercise program, Home exercise program, Modified ADL techniques, Purpose of tx/functional activities Teaching Recipient: Patient Teaching Methods: Demonstration, Discussion Response to Teaching: Verbalize Understanding (facial expressions and head no ds), Unable to Return Demonstration, Reinforcement Needed OT Short Term Goals Short Term Goals 1=Demonstrate adherence to instructed precautions during ADL tasks. 2=Patient will verbalize/demonstrate understanding of assistive devices/modifications for ADL. 3=Patient will improve strength/tolerance for activity to enable patient to perform ADL's. OT Halfway Goals Halfway Goals Time Frame: Apr 05, 2019 Eating (QC): 3 Oral Hygiene (QC): 3 Shower/Bathe Self (QC): 3 Upper Body Dressing (QC): 3 Lower Body Dressing (QC): 2 On/Off Footwear (QC): 2 Toileting Hygiene (QC): 2 Toilet/Commode Transfer (QC): 2 Additional Goals: 1-Demonstrate ADL Tasks, 2-Verbalize Understanding, 3- ImproveStrength/José 1=Demonstrate adherence to instructed precautions during ADL tasks. 2=Patient will verbalize/demonstrate understanding of assistive devices/modifications for ADL. 3=Patient will improve strength/tolerance for activity to enable patient to perform ADL's. OT Education/Plan Problem List/Assessment Assessment: Decreased Activ Tolerance, Decreased UE Strength, Dependent Transfers, Edema, Impaired Bed Mobility, Impaired Coordination, Impaired Funct Balance, Impaired I ADL's, Impaired Self-Care Skills, Restricted Funct UE ROM Discharge Recommendations Plan/Recommendations: Continue POC Treatment Plan/Plan of Care Treatment,Training & Education: Yes Patient would benefit from OT for education, treatment and training to promote independence in ADL's, mobility, safety and/or upper extremity function for ADL's. Plan of Care: ADL Retraining, Caregiver Training, Cognitive Retraining, Concurrent Therapy, Functional Mobility, UE Funct Exercise/Act Treatment Duration: Apr 05, 2019 Frequency: 5 times per week Estimated Hrs Per Day: .25 hour per day Agreement: Yes Rehab Potential: Guarded Time/GCodes Start Time: 13:05 Stop Time: 13:38 Total Time Billed (hr/min): 33 Billed Treatment Time 1, ADL 2 (33) YANIRA FREEMAN OTR Mar 18, 2019 15:40 POS
[2019-03-18] MEDS ORDERED: [UNRECOGNIZED DRUG - OTHER] IV SCH ×9 (17:00)
[2019-03-18] MEDS ORDERED: POTASSIUM ACETATE IV SCH ×9 (17:00)
[2019-03-18] MEDS ORDERED: POTASSIUM PHOSPHATE IV SCH ×9 (17:00)
[2019-03-18] MEDS: niCARdipine IV 50 MG in NS (IVPB) 230 ML IV SCH (18:14)
[2019-03-18] MEDS: ENOXAPARIN 40 MG/0.4 ML (LOVENOX) SYR SC SCH (20:42)
[2019-03-18] MEDS: FLUTICASONE 220 MCG INHALER (FLOVENT) 12 GM INH SCH (22:16)
[2019-03-19] VITALS (19 sets, daily range): BP systolic 87–183; BP diastolic 18–82
[2019-03-19] MEDS: inSUlin ASPART (NovoLOG) 1 UNIT/0.01 ML (CHARGE PER UNIT) SQ SCH ×4 (00:13→12:50)
--- NOTE | 2019-03-19 00:21 | NUR ---
PT REVERTED BACK TO AFIB AT APPROX 1930. JENNIFERM STARTED BACK UP- STANDING ORDER PER DR ROMO
--- NOTE | 2019-03-19 00:23 | NUR ---
PT CONVERTED BACK TO SINUS RHYTHM/SINUS TACHYCARDIA AT APPROX 2200
[2019-03-19] MEDS: RT-IPRATROPIUM (ATROVENT) 0.5MG/2.5ML AMP IH SCH ×3 (01:47→10:39)
[2019-03-19] MEDS: RT-LEVALBUTEROL (XOPENEX) 1.25 MG/3 ML NEB NON-FORMULARY INH SCH ×3 (01:47→10:39)
[2019-03-19] MEDS: morphine INJ 4 MG/ML 1 ML (VIAL/SYRINGE) IVP PRN ×2 (02:29→14:56)
[2019-03-19 02:45] LABS: BASOPHILS % (AUTO) 0 % (0-10); EOSINOPHILS # (AUTO) 0.2 10^3/uL (0.0-0.3); EOSINOPHILS % (AUTO) 1 % (0-10); HEMATOCRIT 31 % (35-52); HEMOGLOBIN 8.9 G/DL (11.5-16.0); LYMPHOCYTES # (AUTO) 0.6 X 10^3 (1.0-4.0); LYMPHOCYTES % (AUTO) 4 % (12-44); MEAN CORPUSCULAR HEMOGLOBIN 30 PG (25-34); MEAN CORPUSCULAR HGB CONC 29 G/DL (32-36); MEAN CORPUSCULAR VOLUME 105 FL (80-99); MEAN PLATELET VOLUME 10.4 FL (7.4-10.4); MONOCYTES # (AUTO) 1.2 X 10^3 (0.0-1.0); MONOCYTES % (AUTO) 8 % (0-12); NEUTROPHILS # (AUTO) 12.4 X 10^3 (1.8-7.8); NEUTROPHILS % (AUTO) 86 % (42-75); PLATELET COUNT 181 10^3/uL (130-400); RED CELL DISTRIBUTION WIDTH 19.7 % (10.0-14.5); WHITE BLOOD COUNT 14.3 10^3/uL (4.3-11.0)
[2019-03-19] MEDS: niCARdipine IV 50 MG in NS (IVPB) 230 ML IV SCH (03:06)
--- OUTSIDE RECORDS SUMMARY | 2019-03-19 04:06 | XMS REPORT | Clinical Summary ---
Author Author [facility] POS Organization [facility] SP Address Unknown SP Phone Unavailable SP Care Team Providers Care Lime Mixer Name Role Phone POS YazanTdmaria t CANTU PCP SP Tyrone Suarez MD Unavailable SP Source Comments Some departments are not documenting in the electronic medical record. If you d o not see the information that you expected, contact Release of Information in [facility] [employer] Information Management department at [phone] for further assistan ce in locating additional records.[facility] Allergies No Known Allergies Medications [...] Vital Sign SP 159/76 07/10/2008 3:01 PM LEAD OPERATOR SP Blood Pressure SP 73 07/10/2008 3:01 PM LEAD OPERATOR SP Pulse SP 37.3 C (99.1 F) 07/10/2008 3:01 PM LEAD OPERATOR SP Temperature SP - - SP Respiratory Rate SP 97% 07/10/2008 3:01 PM LEAD OPERATOR SP Oxygen Saturation SP - - SP Inhaled Oxygen SP Concentration SP 67.4 kg (148 lb 9.6 oz) 07/10/2008 6:03 AM LEAD OPERATOR SP Weight SP 165.1 cm (5' 5") 07/09/2008 10:00 PM LEAD OPERATOR SP Height SP 24.73 07/09/2008 10:00 PM LEAD OPERATOR SP Body Mass Index SP Plan of [...]
[2019-03-19 04:30] LABS: BUN/CREATININE RATIO 76; CALCIUM 7.6 MG/DL (8.5-10.1); CARBON DIOXIDE 27 MMOL/L (21-32); CHLORIDE 118 MMOL/L (98-107); CREATININE SERUM 0.76 MG/DL (0.60-1.30); GFR ESTIMATED > 60; GLUCOSE 172 MG/DL (70-105); PHOSPHORUS 3.5 MG/DL (2.3-4.7); SODIUM 152 MMOL/L (135-145)
[2019-03-19] MEDS: POTASSIUM CL 10MEQ/50ML IVPB 50 ML IV SCH (04:41)
[2019-03-19] MEDS: KCL 20 MEQ TAB (K-DUR) PO SCH (04:41)
[2019-03-19] MEDS: DILTIAZEM IV FOR DRIP 125 MG in NS (IVPB) 100 ML IV SCH (04:53)
[2019-03-19] MEDS: MAGNESIUM 1 GM/100 ML IVPB 100 ML IV SCH (04:54)
[2019-03-19] MEDS ORDERED: D5W 1000 ML IV SOLUTION 1,000 ML IV SCH (05:30)
--- NOTE | 2019-03-19 05:43 | Pulmonary Progress Note ---
Subjective Time Seen by a Provider: 05:38 Subjective/Events-last exam PT is currently on BiPAP however did well yesterday on RA without BiPAP. Sepsis Event Evaluation Height, Weight, BMI Height: 5'5.00" Weight: 160lbs. 0.0oz. [id number]; 21.79 BMI Method:Stated Focused Exam Time of Focused Exam: 22:00 Exam Exam Vital Signs Date Time Temp Pulse Resp B/P (MAP) Pulse Ox O2 Delivery O2 Flow Rate FiO2 03/19/19 05:00 84 17 165/67 (99) 97 NIV Bilevel 21.00 03/19/19 04:53 87 18 166/66 97 NIV/Bilevel 0.00 03/19/19 04:00 89 19 159/73 (101) 98 NIV Bilevel 21.00 03/19/19 04:00 97 NIV Bilevel 0.00 21 03/19/19 03:30 93 20 163/66 (98) 97 NIV Bilevel 21.00 03/19/19 03:00 97 22 183/61 (101) 98 NIV Bilevel 21.00 03/19/19 02:00 96 23 183/80 (114) 98 NIV Bilevel 21.00 03/19/19 01:48 99 25 98 21.00 03/19/19 01:00 96 03/19/19 01:00 96 22 157/59 (91) 97 NIV Bilevel 21.00 03/19/19 00:00 36.8 03/19/19 00:00 102 25 171/73 (105) 98 NIV Bilevel 21.00 03/19/19 00:00 97 NIV Bilevel 0.00 21 03/18/19 23:00 104 22 168/57 (94) 100 NIV Bilevel 21.00 03/18/19 22:41 94 16 100 21.00 03/18/19 22:41 112 31 162/66 (98) 98 NIV Bilevel 21.00 03/18/19 22:00 112 21 165/69 (101) 100 Room Air 03/18/19 21:52 111 03/18/19 21:14 128 24 158/65 (96) 100 Room Air 03/18/19 21:00 126 23 100 Room Air 03/18/19 20:51 137 22 171/92 100 Room Air 03/18/19 20:30 121 22 171/79 (109) 100 Room Air 03/18/19 20:00 100 Room Air 03/18/19 20:00 37.2 03/18/19 20:00 138 25 187/82 (117) 100 Room Air 03/18/19 19:33 100 Room Air 03/18/19 19:28 100 Room Air 03/18/19 19:20 133 03/18/19 19:19 107 03/18/19 19:19 130 03/18/19 19:00 108 18 183/70 (107) 100 Vapotherm 15.00 21.00 03/18/19 19:00 108 03/18/19 18:00 105 17 183/73 (109) 100 Vapotherm 15.00 21.00 03/18/19 17:00 107 20 191/70 (110) 100 Vapotherm 15.00 21.00 03/18/19 16:00 112 25 186/71 (109) 100 Vapotherm 15.00 21.00 03/18/19 16:00 37.0 03/18/19 16:00 100 Room Air 03/18/19 15:00 104 21 189/65 (106) 100 Vapotherm 15.00 21.00 03/18/19 14:37 96 Room Air 03/18/19 14:00 110 25 186/47 (93) 100 Vapotherm 15.00 21.00 03/18/19 13:00 95 21 207/42 (96) 100 Vapotherm 15.00 21.00 03/18/19 13:00 91 03/18/19 12:00 100 Room Air 03/18/19 12:00 99 22 159/39 (79) 100 Vapotherm 15.00 21.00 03/18/19 11:00 98 22 191/43 (92) 100 Vapotherm 15.00 21.00 03/18/19 10:00 93 20 200/34 (89) 99 Vapotherm 15.00 21.00 03/18/19 09:00 97 19 182/31 (81) 100 Vapotherm 15.00 21.00 03/18/19 08:00 97 19 174/31 (78) 100 Vapotherm 15.00 21.00 03/18/19 08:00 100 Room Air 03/18/19 07:35 96 Room Air 03/18/19 07:00 90 18 100 Vapotherm 15.00 21.00 03/18/19 07:00 92 I & O 03/19/19 07:00 Intake Total 2075 ml Output Total 4205 ml Balance -2130 ml Height & Weight Height: 5'5.00" Weight: 160lbs. 0.0oz. 72.390651rr; 21.79 BMI Method:Stated General Appearance: No Apparent Distress, Chronically ill, Other (sedated on vent) HEENT: PERRL/EOMI, Other (ET tube in place) Neck: Supple Respiratory: No Respiratory Distress, Other (wearing BiPAP) Cardiovascular: Regular Rate, Rhythm, No Murmur Capillary Refill: Less Than 3 Seconds Peripheral Pulses: 2+ Dorsalis Pedis (R), 2+ Left Dors-Pedis (L), 2+ Radial Pulses (R), 2+ Radial Pulses (L) Gastrointestinal: soft, other (Midline incision, VAC in place, ileostomy pink and with output) Extremity: Normal Capillary Refill, Non Tender, Pedal Edema Neurologic/Psychiatric: Alert, Disoriented Skin: Warm/Dry, Pallor Lymphatic: No Adenopathy Results Lab Laboratory Tests 03/18/19 03:25 03/19/19 02:35 03/19/19 04:05 Assessment/Plan Assessment/Plan Acute respiratory failure with hypoxia -continue TPN -BiPAP QHS only -Pt is not requiring oxygen -DUoneb with easy PAP Q4 Hypernatremia --Decrease Na and CL in TPN secondary to hypernatremia and hyperchloremia -Add D5W at 50cc/hr -Continue to monitor Stenotrophomonas from SONIA drain -PT was switched to BCTM only per surgery yesterday. -Monitor RLL infiltrate may need to advance abx for pneumonia Hypertension -Continue Cardene for BP <180 (Current SBP is 220) -Currently on clonidine patch -PRN Vastotec and hydralazine Atelectasis s/p Bronchoscopy -Await farmer cultures --DUoneb with easy PAP Q4 -IS Hyperglycemia - Q4 accu checks anemia s/p 4 units PRBC -Monitor recurrent perforated abdominal viscus -status post small bowel resection and diverting ileostomy and WoundVac placement Protein jorge malnutrition with low albumin and anasarca - prealbumin - <3 -Continue TPN Fungemia secondary to abdominal perforation -Eraxis was stopped yesterday Grade 1 diastolic dysfunction -Monitor Afib - currently sinus DM II Debility -PT/OT JAZMYNE THOMPSON DO Mar 19, 2019 05:43 POS
[2019-03-19] MEDS: FLUTICASONE 220 MCG INHALER (FLOVENT) 12 GM INH SCH (06:17)
[2019-03-19 06:24] LABS: LYMPHOCYTES % (MANUAL) 2 %; MONOCYTES % (MANUAL) 6 %; NEUTROPHILS % (MANUAL) 92 %
[2019-03-19 06:25] LABS: TOXIC GRANULATION/VACUOLAZATIO 1+
[2019-03-19] MEDS: TRIM/SULFAMETH 160/800 (SEPTRA DS) TAB PO SCH (06:56)
--- NOTE | 2019-03-19 07:39 | Diagnostic Imaging Report ---
INDICATION: Dyspnea. COMPARISON: 03/08/2012. FINDINGS: Single frontal radiographic view of the chest was obtained and again demonstrates indwelling gastric tube extending inferiorly beyond the [id number]-ea-ixor. Bilateral upper extremity PICC lines are again noted. Lungs continue to show moderate diffuse hazy airspace opacity within the right mid and lower lung jimenez suggestive of effusion with associated atelectasis and/or infiltrate. Small left basilar effusion with consolidative opacities in the medial infrahilar region are also again identified. Overall, aeration is stable. There is no pneumothorax. Cardiac silhouette and pulmonary vasculature are stable as well. IMPRESSION: 1. Stable exam of the chest showing probable bilateral effusions with associated atelectasis and/or infiltrate, right greater than left. Dictated by: Dictated on workstation # [id number]
[2019-03-19] MEDS: PANTOPRAZOLE 40 MG (PROTONIX) VIAL IV SCH (07:52)
[2019-03-19] MEDS: BUMETANIDE 1 MG/4 ML (BUMEX) VIAL IV SCH (07:52)
--- NOTE | 2019-03-19 07:57 | Cardiology Progress Note ---
Subjective Date Seen by Provider: Mar 19, 2019 Time Seen by Provider: 07:51 Subjective/Events-last exam Patient is laying down in bed, complaining of fatigue. No new complaint Review of Systems General: Fatigue, Malaise HEENT: No Head Aches, No Visual Changes, No Eye Pain, No Ear Pain, No Dysphasia, No Sinus Congestion, No Post Nasal Drip, No Sore Throat, No Other Pulmonary: Dyspnea; No Cough, No Pleuritic Chest Pain, No Other Cardiovascular: Edema; No: Chest Pain, Palpitations, Orthopnea, Paroxysmal Noc. Dyspnea, Lt Headedness, Other Focused Exam Time of Focused Exam: 22:00 Objective-Cardiology Exam Last Set of Vital Signs Vital Signs 03/19/19 03/19/19 03/19/19 03/19/19 00:00 04:00 06:00 06:14 Temp 36.8 Pulse 94 Resp 24 B/P (MAP) 155/79 (104) Pulse Ox 97 O2 Delivery NIV Bilevel O2 Flow Rate 21.00 FiO2 21 Capillary Refill : Less Than 3 SecondsLess Than 3 Seconds I&O Intake and Output 03/19/19 00:00 Intake Total 2075 ml Output Total 5685 ml Balance -3610 ml Intake Oral 0 ml IV Total 1955 ml Other 120 ml Output Urine Total 4225 ml Drainage Total 1460 ml # Bowel Movements 3 General: Alert, Oriented X3, Cooperative, Mild Distress HEENT: Atraumatic, PERRLA Neck: Supple, No Thyromegaly Lungs: Clear to Auscultation, Normal Air Movement Heart: Regular Rate, Normal S1, Normal S2, No Murmurs Abdomen: No Masses, Other (Diminished bowel sounds) Extremities: No Clubbing, No Cyanosis, Normal Pulses, No Tenderness/Swelling, Other (Bilateral edema) Skin: No Rashes Neuro: Normal Speech, Sensation Intact Psych/Mental Status: Mental Status NL Results Lab Laboratory Tests 03/19/19 02:35 03/19/19 04:05 A/P-Cardiology Admission Diagnosis Acute respiratory failure Paroxysmal atrial fibrillation Coronary artery disease Hypertension Assessment/Plan Sepsis, multiple abdominal surgery, had bowel resection and diverting ileostomy, last procedure was done on March 13, 2019 showing no further leak, had wound VAC applied and washout, recovering slowly Status post respiratory failure, better at this time, improving slowly, possible transfer to [facility] today Paroxysmal atrial fibrillation, has been in and out of atrial fibrillation multiple times, maintained in sinus rhythm at this time, has been on Cardizem drip, I will stop the drip and start her on Cardizem through NG tube and monitor her heart rate and blood pressure Labile hypertension, currently blood pressure is elevated, some improvement compared to yesterday, I will switch her to oral Cardizem and enalapril and evaluate tolerance and response S/p small bowel resection secondary to perf at anastomosis site, had multiple surgery for recurrent perforation, had SB resection with diverting ileostomy and lavage on 03/11, had another surgery on March 13, 2019 with evaluation for any further leak, had a wound VAC. Managed by surgical team Acute renal insufficiency, continue to monitor renal function closely Anasarca, receiving Bumex, continue to monitor renal function closely Coronary artery disease, history of cardiac catheterization in July 2012 showing 50 percent midright coronary artery stenosis, nonobstructive disease, had a borderline disease in the midright coronary artery. Most recent cardiac catheterization done April 2018 revealed mild ectasia in the proximal LAD with mild disease in the mid LAD, small vessel disease distally, mild ectasia in the proximal circumflex artery and 40-50 percent stenosis in the mid right coronary artery, nonobstructive disease, continue to monitor History of colon cancer, history of colon resection and colostomy in the remote past has been in remission and followed by Dr. Branham History of hyperlipidemia Carotid artery stenosis , continue to monitor as outpatient. Syncope, had a syncopal episode in October 2015 probably due to dehydration. Was in renal failure. Improved. History of thyroid nodules noted on ultrasound, followed by Dr. Branham and Dr. Simmons Diabetes mellitus, followed and managed by primary care physician. History of colon cancer, history of colostomy. Currently in remission. Followed by Dr. Branham Family history of coronary artery disease. Obstructive sleep apnea, intolerance to CPAP History of appendectomy, kidney stones, hysterectomy. Breast biopsy. Clinical Quality Measures DVT/VTE Risk/Contraindication: Risk Factor Score Per Nursin RFS Level Per Nursing on Admit: 4+=Very High NAYA URIAS MD Mar 19, 2019 07:57 POS
[2019-03-19] MEDS ORDERED: ENALAPRIL 10 MG (VASOTEC) TAB NG SCH (09:00)
--- NOTE | 2019-03-19 11:02 | Progress Note - Hospitalist ---
Subjective HPI/CC On Admission Date Seen by Provider: Mar 19, 2019 Time Seen by Provider: 08:50 abdominal pain Subjective/Events-last exam She reports not feeling well, but she is not able to tell me why. She denies pain. She says she is not uncomfortable. Focused Exam Time of Focused Exam: 22:00 Objective Exam Vital Signs Vital Signs Date Time Temp Pulse Resp B/P (MAP) Pulse Ox O2 Delivery O2 Flow Rate FiO2 03/19/19 10:39 100 Room Air 03/19/19 10:00 88 19 177/72 (107) 21.00 03/19/19 07:53 37.0 03/19/19 04:00 21 Capillary Refill : Less Than 3 SecondsLess Than 3 Seconds General Appearance: No Apparent Distress, WD/WN, Chronically ill HEENT: PERRL/EOMI, Pharynx Normal Neck: Normal Inspection, Supple Respiratory: Lungs Clear, Normal Breath Sounds, No Respiratory Distress Cardiovascular: Regular Rate, Rhythm, No Murmur Gastrointestinal: Abnormal Bowel Sounds (hypoactive), Other (wound vac and ostomy in place) Extremity: Non Tender, Pedal Edema, Swelling Neurologic/Psychiatric: Alert, Disoriented Skin: Warm/Dry, Pallor Results/Procedures Lab Laboratory Tests 03/19/19 02:35 03/19/19 04:05 Patient resulted labs reviewed. Assessment/Plan Assessment and Plan Assess & Plan/Chief Complaint Perforated abdominal viscus -Management per primary -Multiple abdominal surgeries this admission -Wound vac in place, ostomy in place, doing well -Completed course of Zyvox, Merrem, and Eraxis -Short course of Bactrim ordered Acute hypoxemic respiratory failure -Extubated on 03/15 -Pulmonology following -On room air this morning Severe protein-calorie malnutrition -Continue TPN -Prealbumin <3 Postoperative anemia -Hgb improved post-transfusion, stable -Continue to monitor Hypertension -Hydralazine prn -Vasotec prn Paroxysmal atrial fibrillation -Cardiology following T2DM - Sliding scale insulin Critical illness myopathy -PT/OT -Transfer to [facility] planned for today Fungemia, resolved Lactic acidosis, resolved Shock, resolved Acute kidney injury, resolved Hypernatremia, resolved Critical Care Critically Ill Patient Diagnosis/Problems Diagnosis/Problems (1) Perforated abdominal viscus Status: Acute (2) Fungemia Status: Acute (3) Acute respiratory failure Status: Acute Qualifiers: Respiratory failure complication: unspecified whether with hypoxia or hypercapnia Qualified Codes: J96.00 - Acute respiratory failure, unspecified whether with hypoxia or hypercapnia (4) Essential hypertension Status: Chronic (5) Critical illness myopathy Status: Acute (6) IDDM (insulin dependent diabetes mellitus) Status: Chronic (7) Acute renal failure Status: Acute Qualifiers: Acute renal failure type: with acute tubular necrosis Qualified Codes: N17.0 - Acute kidney failure with tubular necrosis Clinical Quality Measures DVT/VTE Risk/Contraindication: Risk Factor Score Per Nursin RFS Level Per Nursing on Admit: 4+=Very High NAIMA ROMAN MD Mar 19, 2019 11:02 POS
[2019-03-19] MEDS ORDERED: DILTIAZEM 60 MG (CARDIZEM) TAB NG SCH (12:00)
--- NOTE | 2019-03-19 13:02 | Occupational Ther Daily Note ---
OT Current Status-Daily Note Subjective Pt laying in bed when OT entered the room. Pt made eye contact and attempted to mouth words, but unable to verbalize. Mental Status/Objective Patient Orientation: Unable to Assess Attachments: Colostomy/Ileostomy, Drains, Wing Catheter, IV, NG Tube, Tel emetry ADL-Treatment Therapy Code Descriptions/Definitions Functional [place] Measure: 0=Not Assessed/NA 4=Minimal Assistance 1=Total Assistance 5=Supervision or Setup 2=Maximal Assistance 6=Modified [place] 3=Moderate Assistance 7=Complete IndependenceSCALE: Activities may be completed with or without assistive devices. 7-Qpfynxjfzd-voarmuu completes the activity by him/herself with no assistance from a helper. 5-Set-up or Clean-up Assistance-helper sets up or cleans up; patient completes activity. [place] assists only prior to or following the activity. 4-Supervision or Touching Assistance-helper provides verbal cues and/or touchin g/steadying and/or contact guard assistance as patient completes activity. Assistance may be provided throughout the activity or intermittently. 3-Partial/Moderate Assistance-helper does LESS THAN HALF the effort. [place] lifts, holds or supports trunk or limbs, but provides less than half the effort. 2-Substantial/Maximal Assistance-helper does MORE THAN HALF the effort. [place] lifts or holds trunk or limbs and provides more than half the effort. 0-Npitcsfcm-nmzjwd does ALL the effort. Patient does none of the effort to complete the activity. Or, the assistance of 2 or more helpers is required for the patient to complete the activity. If activity was not attempted, code reason: 7-Patient Refused. 9-Not Applicable-not attempted and the patient did not perform the activity before the current illness, exacerbation or injury. 10-Not Attempted due to Environmental Limitations-(lack of equipment, weather restraints, etc.). 88-Not Attempted due to Medical Conditions or Safety Concerns. Other Treatment OT asked pt to squeeze therapist's hand with bilateral UE. Pt. attempted to with slight flexion of fingers. PROM was performed with pt. Performed PROM to bilateral shoulders, elbows, wrists, and fingers, in flexion/extension, as well as supination/pronation of forearms. Noted pt. is edematous in bilateral UE throughout. No other active movement noted. Pt was repositioned at end of session to right side for pressure relief and comfort. Elevated bilateral UE for edema control. OT asked pt if she was cold, pt shook her head and smiled. Pt laying in bed. Call light in reach. All needs met in the room. Notified nursing at end of treatment. Education OT Patient Education: Correct positioning, Progress toward Goal/Update tx plan, Purpose of tx/functional activities, Reviewed precautions, Safety issues Teaching Recipient: Patient Teaching Methods: Demonstration Response to Teaching: Unable to Return Demonstration OT Short Term Goals Short Term Goals 1=Demonstrate adherence to instructed precautions during ADL tasks. 2=Patient will verbalize/demonstrate understanding of assistive devices/modifications for ADL. 3=Patient will improve strength/tolerance for activity to enable patient to perform ADL's. OT Shelter Goals Tool Machine Shop Supervisor Goals Time Frame: Apr 05, 2019 Eating (QC): 3 Oral Hygiene (QC): 3 Shower/Bathe Self (QC): 3 Upper Body Dressing (QC): 3 Lower Body Dressing (QC): 2 On/Off Footwear (QC): 2 Toileting Hygiene (QC): 2 Toilet/Commode Transfer (QC): 2 Additional Goals: 1-Demonstrate ADL Tasks, 2-Verbalize Understanding, 3- ImproveStrength/José 1=Demonstrate adherence to instructed precautions during ADL tasks. 2=Patient will verbalize/demonstrate understanding of assistive devices/modifications for ADL. 3=Patient will improve strength/tolerance for activity to enable patient to perform ADL's. OT Education/Plan Problem List/Assessment Assessment: Decreased Activ Tolerance, Decreased UE Strength, Dependent Transfers, Edema, Impaired Bed Mobility, Impaired Coordination, Impaired Funct Balance, Impaired I ADL's, Impaired Self-Care Skills, Restricted Funct UE ROM Discharge Recommendations Plan/Recommendations: Continue POC Therapy Discharge Recommendati: 24 Hour Supervision, Post Acute OT Treatment Plan/Plan of Care Treatment,Training & Education: Yes Patient would benefit from OT for education, treatment and training to promote independence in ADL's, mobility, safety and/or upper extremity function for ADL's. Plan of Care: ADL Retraining, Caregiver Training, Cognitive Retraining, Functional Mobility, UE Funct Exercise/Act Treatment Duration: Apr 05, 2019 Frequency: 5 times per week Estimated Hrs Per Day: .25 hour per day Agreement: Yes Rehab Potential: Guarded Time/GCodes Start Time: 09:45 Stop Time: 10:00 Total Time Billed (hr/min): 15 Billed Treatment Time 1, EX x1 15 Minutes HEMANT MERCEDES OT Mar 19, 2019 13:02 POS
--- NOTE | 2019-03-19 14:05 | NUR ---
Follow up visit with pt and daughter, Jeni. Jeni expressed positive feelings about pt's transfer to [facility], was lighthearted and encouraging in her dialogue with the pt. I shared with the pt that I had been praying for her and would continue to do so.
--- NOTE | 2019-03-19 14:45 | NUR ---
200ML OF FENTANYL WASTED FROM PUMP WASTED WITH KAREY Castillo RN
--- NOTE | 2019-03-19 14:55 | NUR ---
report called to Abigail nurse at [facility]. Patient going to room 204. EMS here at facility to transport patient, daughter at bedside. Personal belongings sent with daughter, questions answered. Consent for transport signed by Daughter Jeni.
--- NOTE | 2019-03-19 16:04 | Progress Note - Surgery ---
Subjective Date Seen by a Provider: Mar 19, 2019 Time Seen by a Provider: 07:45 Subjective/Events-last exam Ms. Samson seemed slightly stronger today compared to yesterday, still complained of being weak, tired, and warm. Answered more questions and had a stronger voice than yesterday. She had afib w/ RVR last night, was treated with cardizem. All drainage is serosanguinous, woundvac appeared to be healing well. Review of Systems General: No Chills; Fatigue HEENT: No Sinus Congestion, No Sore Throat Pulmonary: No Dyspnea, No Cough Cardiovascular: Edema; No: Chest Pain, Palpitations Gastrointestinal: No: Nausea, Abdominal Pain Neurological: Weakness; No: Numbness Focused Exam Time of Focused Exam: 22:00 Objective Exam Vital Signs Date Time Temp Pulse Resp B/P (MAP) Pulse Ox O2 Delivery O2 Flow Rate FiO2 03/19/19 15:16 36.4 93 23 165/81 99 Room Air 03/19/19 14:00 93 23 165/81 (109) 99 Room Air 03/19/19 13:00 87 18 87/18 (41) 100 Room Air 03/19/19 12:54 87 03/19/19 12:00 85 18 176/71 (106) 100 Room Air 03/19/19 12:00 96 Room Air 03/19/19 11:34 36.4 03/19/19 11:00 92 18 169/82 (111) 100 Room Air 03/19/19 10:39 100 Room Air 03/19/19 10:00 88 19 177/72 (107) 100 Room Air 03/19/19 09:00 101 24 168/80 (109) 100 Room Air 03/19/19 08:00 96 23 177/76 (109) 100 Room Air 03/19/19 08:00 96 Room Air 03/19/19 07:53 37.0 03/19/19 07:00 94 19 179/68 (105) 100 NIV Bilevel 21.00 03/19/19 06:51 98 03/19/19 06:14 94 24 97 21.00 03/19/19 06:00 90 19 155/79 (104) 97 NIV Bilevel 21.00 03/19/19 05:00 84 17 165/67 (99) 97 NIV Bilevel 21.00 11/12/19 04:53 87 18 166/66 97 NIV/Bilevel 0.00 03/19/19 04:00 89 19 159/73 (101) 98 NIV Bilevel 21.00 03/19/19 04:00 97 NIV Bilevel 0.00 21 03/19/19 03:30 93 20 163/66 (98) 97 NIV Bilevel 21.00 03/19/19 03:00 97 22 183/61 (101) 98 NIV Bilevel 21.00 03/19/19 02:00 96 23 183/80 (114) 98 NIV Bilevel 21.00 03/19/19 01:48 99 25 98 21.00 03/19/19 01:00 96 03/19/19 01:00 96 22 157/59 (91) 97 NIV Bilevel 21.00 03/19/19 00:00 36.8 03/19/19 00:00 102 25 171/73 (105) 98 NIV Bilevel 21.00 03/19/19 00:00 97 NIV Bilevel 0.00 21 03/18/19 23:00 104 22 168/57 (94) 100 NIV Bilevel 21.00 03/18/19 22:41 94 16 100 21.00 03/18/19 22:41 112 31 162/66 (98) 98 NIV Bilevel 21.00 03/18/19 22:00 112 21 165/69 (101) 100 Room Air 03/18/19 21:52 111 03/18/19 21:14 128 24 158/65 (96) 100 Room Air 03/18/19 21:00 126 23 100 Room Air 03/18/19 20:51 137 22 171/92 100 Room Air 03/18/19 20:30 121 22 171/79 (109) 100 Room Air 03/18/19 20:00 100 Room Air 03/18/19 20:00 37.2 03/18/19 20:00 138 25 187/82 (117) 100 Room Air 03/18/19 19:33 100 Room Air 03/18/19 19:28 100 Room Air 03/18/19 19:20 133 03/18/19 19:19 107 03/18/19 19:19 130 03/18/19 19:00 108 18 183/70 (107) 100 Vapotherm 15.00 21.00 03/18/19 19:00 108 03/18/19 18:00 105 17 183/73 (109) 100 Vapotherm 15.00 21.00 03/18/19 17:00 107 20 191/70 (110) 100 Vapotherm 15.00 21.00 03/18/19 16:00 112 25 186/71 (109) 100 Vapotherm 15.00 21.00 03/18/19 16:00 37.0 03/18/19 16:00 100 Room Air I & O 03/19/19 07:00 Intake Total 2075 ml Output Total 5775 ml Balance -3700 ml Capillary Refill : Less Than 3 SecondsLess Than 3 Seconds General Appearance: No Apparent Distress, Anxious, Chronically ill Neck: Normal Inspection, Non Tender, Supple Respiratory: Lungs Clear, Normal Breath Sounds, No Accessory Muscle Use, No Respiratory Distress Cardiovascular: Regular Rate, Rhythm, No Murmur, Normal Peripheral Pulses Peripheral Pulses: 2+ Dorsalis Pedis (R), 2+ Left Dors-Pedis (L), 2+ Radial Pulses (R), 2+ Radial Pulses (L) Gastrointestinal: soft, tenderness (all quadrants), other (Midline incision, VAC in place, ileostomy pink and with output) Extremity: Non Tender, Pedal Edema Neurologic/Psychiatric: Alert, Disoriented Skin: Warm/Dry, Pallor Lymphatic: No Adenopathy Results Lab Laboratory Tests 03/18/19 16:27: Glucometer 129H 03/18/19 20:04: Glucometer 151H 03/18/19 22:54: Glucometer 137H 03/19/19 02:35: White Blood Count 14.3H, Red Blood Count 2.94L, Hemoglobin 8.9L, Hematocrit 31L, Mean Corpuscular Volume 105H, Mean Corpuscular Hemoglobin 30, Mean Corpuscular Hemoglobin Concent 29L, Red Cell Distribution Width 19.7H, Platelet Count 181, Mean Platelet Volume 10.4, Neutrophils (%) (Auto) 86H, Lymphocytes (%) (Auto) 4L , Monocytes (%) (Auto) 8, Eosinophils (%) (Auto) 1, Basophils (%) (Auto) 0, N eutrophils # (Auto) 12.4H, Lymphocytes # (Auto) 0.6L, Monocytes # (Auto) 1.2H, Eosinophils # (Auto) 0.2, Basophils # (Auto) 0.0, Neutrophils % (Manual) 92, Lymphocytes % (Manual) 2, Monocytes % (Manual) 6, Toxic Granulation 1+, Sodium Level 134L, Potassium Level 9.1#*H, Chloride Level 106, Carbon Dioxide Level 21, Anion Gap 7, Blood Urea Nitrogen 52H, Creatinine 1.40H, Estimat Glomerular Filtration Rate 37, BUN/Creatinine Ratio 37, Glucose Level 1962*H, Calcium Level 7.2L, Phosphorus Level 11.5H, Magnesium Level 3.1H 03/19/19 04:05: Sodium Level 152H, Potassium Level 4.0, Chloride Level 118#H, Carbon Dioxide Level 27, Anion Gap 7, Blood Urea Nitrogen 58H, Creatinine 0.76, Estimat Glomerular Filtration Rate > 60, BUN/Creatinine Ratio 76, Glucose Level 172H, Calcium Level 7.6L, Phosphorus Level 3.5, Magnesium Level 1.9 03/19/19 07:18: Glucometer 200H 03/19/19 11:13: Glucometer 172H 03/19/19 11:55: Lab Scanned Report Transfusion Reaction Form Microbiology 03/16/19 Blood Culture - Preliminary, Resulted No growth 03/16/19 C. difficile GDH Antigen & Toxins - Final, Complete 03/15/19 Mycobacterial Culture - Preliminary, Resulted 03/16/19 Urine Culture - Final, Complete NO GROWTH 03/18/19 Catheter Tip Culture - Preliminary, Resulted Culture In Progress Assessment/Plan Assessment/Plan Assessment/Plan S/P SBR, fascial closure, jejunostomy creation Patient discharged today to rehab, will continue MWF woundvac changes, TPN, antibiotics Clinical Quality Measures DVT/VTE Risk/Contraindication: Risk Factor Score Per Nursin RFS Level Per Nursing on Admit: 4+=Very High BECCA CHANDLER MED STUDENT Mar 19, 2019 16:04 POS
== END 2019-03-19 15:37 | DRG 329 ==
LOC: EDUNIT# 19:38 → ER 19:40 → SDC 02-25 01:14 → ICU 02-25 04:00 → SDC 02-25 11:10 → ICU 02-25 11:11
PROVIDERS: ADMIT Surgery; ATTEND Surgery
PROC: 0DB80ZZ Excision of Small Intestine, Open Approach (ICD-10-PCS; principal; 2019-02-25)
PROC: 0DN80ZZ Release Small Intestine, Open Approach (ICD-10-PCS; 2019-02-25)
PROC: 5A1955Z Respiratory Ventilation, Greater than 96 Consecutive Hours (ICD-10-PCS; 2019-02-25)
PROC: 0BH17EZ Insertion of Endotracheal Airway into Trachea, Via Natural or Artificial Opening (ICD-10-PCS; 2019-02-25)
PROC: 0DQ80ZZ Repair Small Intestine, Open Approach (ICD-10-PCS; 2019-03-08)
PROC: 0D1 Gastrointestinal System, Bypass (ICD-10-PCS; 2019-03-11)
PROC: 0WUF0JZ Supplement Abdominal Wall with Synthetic Substitute, Open Approach (ICD-10-PCS; 2019-03-13)
PROC: 0BC38ZZ Extirpation of Matter from Right Main Bronchus, Via Natural or Artificial Opening Endoscopic (ICD-10-PCS; 2019-03-15)
PROC: 0BC78ZZ Extirpation of Matter from Left Main Bronchus, Via Natural or Artificial Opening Endoscopic (ICD-10-PCS; 2019-03-15)
DX: K91.89 Other postprocedural complications and disorders of digestive system (principal); T81.44XA Sepsis following a procedure, initial encounter; B37.7 Candidal sepsis; R65.21 Severe sepsis with septic shock; K63.1 Perforation of intestine (nontraumatic); T81.43XA Infection following a procedure, organ and space surgical site, initial encounter; K65.1 Peritoneal abscess; T81.83XA Persistent postprocedural fistula, initial encounter; R57.0 Cardiogenic shock; R57.1 Hypovolemic shock; J96.01 Acute respiratory failure with hypoxia; E46 Unspecified protein-calorie malnutrition; G72.81 Critical illness myopathy; E87.2 Acidosis; I48.92 Unspecified atrial flutter; J90 Pleural effusion, not elsewhere classified; J98.11 Atelectasis; N17.9 Acute kidney failure, unspecified; I48.0 Paroxysmal atrial fibrillation; N30.00 Acute cystitis without hematuria; E87.0 Hyperosmolality and hypernatremia; E11.40 Type 2 diabetes mellitus with diabetic neuropathy, unspecified; I10 Essential (primary) hypertension; E11.65 Type 2 diabetes mellitus with hyperglycemia; I25.10 Atherosclerotic heart disease of native coronary artery without angina pectoris; J98.09 Other diseases of bronchus, not elsewhere classified; D64.9 Anemia, unspecified; G47.30 Sleep apnea, unspecified; E78.00 Pure hypercholesterolemia, unspecified; K21.9 Gastro-esophageal reflux disease without esophagitis
CPT/HCPCS: 36415; 36569; 51702; 71045; 71250; 74176; 76937; 80048; 80053; 80076; 81000; 82150; 82274; 82330; 82550; 82553; 82805; 82962; 83605; 83690; 83735; 83874; 83880; 84100; 84132; 84134; 84443; 84478; 84484; 85007; 85014; 85018; 85025; 85027; 85379; 85384; 85610; 85730; 86850; 86900; 86901; 86920; 87015; 87040; 87070; 87075; 87077; 87081; 87088; 87101; 87116; 87186; 87205; 87206; 87324; 87449; 87804; 88307; 93005; 93041; 93306; 94002; 94003; 94640; 94660; 94664; 94760; 94799; 96361; 96365; 96366; 96367; 96368; 96375

== ENCOUNTER 2019-04-18 10:57 | Inpatient (IN) | payer MEDICARE ==
[~2019-04-18] VITALS: Ht 167.7 cm; Wt 76.8 kg
[2019-04-18] MEDS ORDERED: ONDANSETRON 4 MG/2 ML (SDV) Z0FRAN IV PRN (12:00)
[2019-04-18] MEDS ORDERED: TPN IV SCH (12:00)
[2019-04-18 14:30] VITALS: BP 168/72
--- NOTE | 2019-04-18 14:30 | NUR ---
BALDO NGUYEN admitted to room 223-1, with an admitting diagnosis of CRITICAL ILLNESS MYOPATHY , on 04/18/19 from [facility] via [facility], accompanied by EM. BALDO NGUYEN introduced to surroundings, call light, bed controls, phone, TV, temperature control, lights, meal times, smoking policy, visitor policy, side rail policy, bathrooms and showers. Patient Rights given to patient in the handbook.BALDO NGUYEN verbalizes understanding that [facility] is not responsible for the loss or damage to any personal effects or valuables that are kept in the patients posession during their hospitalization. The following Patient Care Plans were discussed with the PT: Discharge Planning, IMPAIRED MOBILITY, TPN, AND COLOSTOMY. BALDO NGUYEN verbalizes understanding of Interdisciplinary Patient Education. Patient received Patient Rights Booklet, which includes Privacy Act Statement and Data Collection Information Summary. DENIES PAIN. COLOSTOMY AND ILEOSTOMY BAGS INTACT. LEFT PICC LINE INTACT.
--- NOTE | 2019-04-18 15:16 | NUR ---
"Received dietary consult regarding pt's TPN assessment. Given pt's current condition, TPN is still the best route to provide nutrition to the pt. Pt's previous order for TPN provided 2016 kcal (28 kcal/kg), 228 g CHO, 143 g Pro (2.0 g Pro/kg), and 74 g Fat at a rate of 120 ml/hr x15h ([id number]). Previous order is appropriate to meet pt's needs at this time. Estimated kcal needs: 5066-8219 kcal | 25-30 kcal/kg Estimated pro needs: 84-99 g Pro | 1.2-1.5 g Pro/kg (for wound healing as pt has sacrum wound). Will continue to follow and reassess as pt needs and status change. Ambrose Cuenca, , RD, LD"
--- NOTE | 2019-04-18 15:31 | Physical Therapy Evaluation ---
PT Evaluation-General Medical Diagnosis Admission Date Apr 18, 2019 at 14:30 Medical Diagnosis: mulitple bowel surgeries, bowel perforation Onset Date: Feb 21, 2019 Therapy Diagnosis Therapy Diagnosis: impaired mobility, strength, endurance Height/Weight Height (Feet): 5 Height (Inches): 5.00 Weight (Pounds): 160 Weight (Ounces): 0.0 Referral Physician: Bryanna Hand DO Reason for Referral: Evaluation/Treatment Medical History Pertinent Medical History: DM, HTN, Hypothroidism Reviewed History: Yes Social History Home: Single Level Current Living Status: Children Entry Into Home: Stairs Without Railing PT Steps Into Home: 4 Prior Prior Level of Function SCALE: Activities may be completed with or without assistive devices. 9-Mlvklvxatz-bhsolnz completes the activity by him/herself with no assistance from a helper. 5-Set-up or Clean-up Assistance-helper sets up or cleans up; patient completes activity. [place] assists only prior to or following the activity. 4-Supervision or Touching Assistance-helper provides verbal cues and/or touching/steadying and/or contact guard assistance as patient completes activity. Assistance may be provided throughout the activity or intermittently. 3-Partial/Moderate Assistance-helper does LESS THAN HALF the effort. [place] lifts, holds or supports trunk or limbs, but provides less than half the effort. 2-Substantial/Maximal Assistance-helper does MORE THAN HALF the effort. [place] lifts or holds trunk or limbs and provides more than half the effort. 8-Jfznfeyiw-xwzova does ALL the effort. Patient does none of the effort to complete the activity. Or, the assistance of 2 or more helpers is required for the patient to complete the activity. If activity was not attempted, code reason: 7-Patient Refused. 9-Not Applicable-not attempted and the patient did not perform the activity before the current illness, exacerbation or injury. 10-Not Attempted due to Environmental Limitations-(lack of equipment, weather restraints, etc.). 88-Not Attempted due to Medical Conditions or Safety Concerns. Bed Mobility: 6 Transfers (B,C,W/C): 6 Gait: 6 Stairs: 6 PT Evaluation-Current Subjective Patient in bed pre tx, agrees to PT, OT has been working with her, she cannot get out of bed until wound care sees her, she has an open abdominal would that needs a wound vac. Will have to assess patient while in bed. Patient has significant pain on the back of her head from a wound and wound on her sacral area. Pt/Family Goals "to get stronger" Objective Patient Orientation: Person, Place, Situation Attachments: Colostomy/Ileostomy, Wing Catheter ROM/Strength ROM Lower Extremities limited dorsiflexion bilaterally by 10 degrees Strength Lower Extremities LLE (hip flexion 3-/5, knee flexion 3+/5, knee extension 3+/5, dorsiflexion 1/5), RLE (hip flexion 3-/5, knee flexion 3+/5, knee extension 3+/5, dorsiflexion 1/5) Integumentary/Posture Integumentary see nurse notes Sensory Vision: Functional Hearing: Functional Sensation Right Lower Extremit: Intact Sensation Left Lower Extremity: Intact Transfers Roll Left to Right (QC): 1 Sit to Lying (QC): 88 Lying to Sitting/Side of Bed(Q: 88 Sit to Stand (QC): 88 Chair/Kpv-lc-Hclrm Xfer(QC): 88 Car Transfer (QC): 88 Patient was only able to roll to her side with pillow placement for pressure relief (also heel lift) and required max assist of 2. Gait Does the Patient Walk?: No and Walking Goal NOT indicated Mode of Locomotion: Wheelchair Anticipated Mode of Locomotion: Wheelchair Walk 10 feet (QC): 88 Walk 50 ft with 2 Turns(QC): 88 Walk 150 ft (QC): 88 Walking 10ft/uneven surface-QC: 88 Wheelchair Training Does the Pt Use a Wheelchair?: Yes Wheel 50 ft with 2 turns (QC): 88 Wheel 150 ft (QC): 88 Type of Wheelchair: Manual Stairs 1 Step (curb) (QC): 88 4 Steps (QC): 88 12 Steps (QC): 88 Balance Picking up an Object (QC): 88 Assessment/Needs Patient has impaired mobility, strength, endurance. She has significant pain with activity. She has an open wound on her abdomen that needs to get a wound vac before she can move more. Rehab Potential: Fair PT Short Term Goals Short Term Goals Time Frame: Apr 25, 2019 Roll Left & Right: 3 (mod A) Sit to lyin (modA) Lying to sitting on side of be: 3 (modA) Sit to stand: 3 (modA) Chair/bdf-vx-zfmmg transfer: 3 (modA) PT Embedded Software Developer Goals Alf Goals PT Alf Goals Time Frame: May 09, 2019 Roll Left & Right (QC): 3 (Chet) Sit to Lying (QC): 3 (Chet) Lying-Sitting on Side/Bed(QC): 3 (Chet) Sit to Stand (QC): 3 (Chet) Chair/Wuo-eh-Bbrfy Xfer(QC): 3 (Chet) Toilet Transfer (QC): 3 (Chet) Car Transfer (QC): 3 (Chet) Does the Patient Walk: No and Walking Goal NOT indicated Walk 10 feet (QC): 88 Walk 50ft with 2 Turns (QC): 88 Walk 150 ft (QC): 88 Walking 10ft on Uneven Surface: 88 1 Step (curb) (QC): 88 4 Steps (QC): 88 12 Steps (QC): 88 Picking up an Object (QC): 88 Does the Pt use WC or Scooter?: Yes Wheel 50 feet with 2 turns (QC: 4 (SBA) Type: Manual Wheel 150 feet: 4 (SBA) Type: Manual PT Plan Problem List Problem List: Activity Tolerance, Functional Strength, Safety, Balance, Gait, Transfer, Bed Mobility, ROM Treatment/Plan Treatment Plan: Continue Plan of Care Treatment Plan: Bed Mobility, Concurrent Therapy, Education, Functional Ac tivity José, Functional Strength, Group Therapy, Gait, Safety, Therapeutic Exercise, Transfers Treatment Duration: May 09, 2019 Frequency: At least 5 of 7 days/Wk (IRF) Estimated Hrs Per Day: 1.5 hours per day Patient and/or Family Agrees t: Yes Safety Risks/Education Patient Education: Correct Positioning, Safety Issues Teaching Recipient: Patient Teaching Methods: Demonstration, Discussion Response to Teaching: Reinforcement Needed Discharge Recommendations Plan Patient will perform bed mobility and transfer training, balance and endurance training, functional strengthening, stair training, gait training, and education, to improve functional mobility and independence at home. Therapy Discharge Recommendati: Other, See Comments (NH) Time/GCodes Time In: 1510 Time Out: 1522 Total Billed Treatment Time: 12 Total Billed Treatment 1 visit ANIVAL CALVERT PT Apr 18, 2019 15:31 POS
--- NOTE | 2019-04-18 15:39 | Occupational Therapy Eval ---
OT Evaluation-General/PLF Medical Diagnosis Admission Date Apr 18, 2019 at 14:30 Medical Diagnosis: Bowel perforation s/p multiple bowel surgeries Onset Date: Feb 21, 2019 Therapy Diagnosis Therapy Diagnosis: Weakness, decreased ADL skills Height/Weight Height (Feet): 5 Height (Inches): 5.00 Weight (Pounds): 160 Weight (Ounces): 0.0 Weight Bear Status Weight Bearing Restriction: Weight Bearing/Tolerated Referral Physician: Dr. Hand Referral Reason: Activity Tolerance, Self Care, Evaluation/Treatment, Strengthening/ROM Medical History Pertinent Medical History: Atrial Fib, DM, HTN, Hypothroidism Additional Medical History Multiple abdominal surgeries, pulmonary edema, perforated bowel. Current History Pt. has had complicated medical history. She is uncertain of dates or timelines. History obtained from chart. Pt. has underwent multiple abdominal surgeries. Pt. has two ostomy sites. Multiple bandages on abdomen. Pt. transferred to this facility for strengthening from [facility]. Reviewed History: Yes Social History Home: Single Level Current Living Status: Children Entry Into Home: Stairs Without Railing Steps Into Home: 2 ADL-Prior Level of Function SCALE: Activities may be completed with or without assistive devices. 9-Srqzxrzgky-aterbeo completes the activity by him/herself with no assistance from a helper. 5-Set-up or Clean-up Assistance-helper sets up or cleans up; patient completes activity. Paradise assists only prior to or following the activity. 4-Supervision or Touching Assistance-helper provides verbal cues and/or touching/steadying and/or contact guard assistance as patient completes activity. Assistance may be provided throughout the activity or intermittently. 3-Partial/Moderate Assistance-helper does LESS THAN HALF the effort. Paradise lifts, holds or supports trunk or limbs, but provides less than half the effort. 2-Substantial/Maximal Assistance-helper does MORE THAN HALF the effort. Paradise lifts or holds trunk or limbs and provides more than half the effort. 4-Tabmtpqvp-pzpqnw does ALL the effort. Patient does none of the effort to complete the activity. Or, the assistance of 2 or more helpers is required for the patient to complete the activity. If activity was not attempted, code reason: 7-Patient Refused. 9-Not Applicable-not attempted and the patient did not perform the activity before the current illness, exacerbation or injury. 10-Not Attempted due to Environmental Limitations-(lack of equipment, weather restraints, etc.). 88-Not Attempted due to Medical Conditions or Safety Concerns. ADL PLOF Comments Before original abdominal surgeries, pt. states that she was independent with daily tasks. Since she has started having difficulty, her daughter has assisted her at home. Self Care: Needed Some Help Functional Cognition: Independent DME/Equipment: Bath Chair, Shower DME/Equipment Comments Pt. has a walker. OT Current Status Subjective Pt. does not report pain number but grimaces and moans with any movement in bed. Pt. has had pain medication. Appearance Pt. is alert but is fatigued from ambulance ride. Mental Status/Objective Patient Orientation: Person, Place Attachments: Colostomy/Ileostomy Current Hand Dominance: Right Upper Extremity ROM Pt. is able to flex bilateral shoulders to approximately 90 degrees at bed level. Elbow flexion WFL. Upper Extremity Strength Strength not tested due to abdominal wounds. Did not want to cause strain in abdominal wall. ADL-Treatment Eating (QC): 88 Oral Hygiene (QC): 7 Shower/Bathe Self (QC): 10 Upper Body Dressing (QC): 88 Lower Body Dressing (QC): 88 On/Off Footwear (QC): 1 Toileting Hygiene (QC): 1 (Colostomy and catheter.) Toilet Transfer (QC): 88 Other Treatments Pt. transferred from [facility] to this facility via ambulance. Pt. required max x 2 to roll side to side. Multiple wounds noted and assessed with nursing. Dependent x 2 for bed mobility. Pt. is able to provide some history but has difficulty with the timeline of events. OT educated her on purpose of rehab and OT goals. Pt. verbalizes understanding. PT came in to room and OT finished session with co-treat with PT. Required co-treatment due to need of skilled assist of 2 for best positioning and medical status needs. Pt. required max x 2 to position onto right side. All needs met. Education OT Patient Education: Correct positioning, Modified ADL techniques, Progress t jean-claude Goal/Update tx plan, Purpose of tx/functional activities, Reviewed precautions, Rehab process, Transfer techniques Teaching Recipient: Patient Teaching Methods: Demonstration, Discussion Response to Teaching: Verbalize Understanding, Return Demonstration OT Short Term Goals Short Term Goals Time Frame: May 02, 2019 Eatin Oral hygiene: 4 Toileting hygiene: 3 Shower/bathe self: 3 Upper body dressin Lower body dressin Putting on/taking off footwear: 3 OT Exercise Physiologist Certified Goals Intermediate Goals Time Frame: May 16, 2019 Eating (QC): 6 Oral Hygiene (QC): 6 Toileting Hygiene (QC): 5 Shower/Bathe Self (QC): 4 Upper Body Dressing (QC): 5 Lower Body Dressing (QC): 5 On/Off Footwear (QC): 5 Additional Goals: 1-Demonstrate ADL Tasks, 2-Verbalize Understanding, 3- ImproveStrength/José 1=Demonstrate adherence to instructed precautions during ADL tasks. 2=Patient will verbalize/demonstrate understanding of assistive devices/modifications for ADL. 3=Patient will improve strength/tolerance for activity to enable patient to perform ADL's. OT Education/Plan Problem List/Assessment Assessment: Decreased Activ Tolerance, Decreased UE Strength, Dependent Transfers, Impaired Bed Mobility, Impaired Funct Balance, Impaired I ADL's, Impaired Self-Care Skills, Restricted Funct UE ROM Discharge Recommendations Plan/Recommendations: Continue POC Therapy Discharge Recommendati: 24 Hour Supervision, Post Acute OT Comment Equipment needs and discharge location to be determined. Treatment Plan/Plan of Care Treatment,Training & Education: Yes Patient would benefit from OT for education, treatment and training to promote independence in ADL's, mobility, safety and/or upper extremity function for ADL's. Plan of Care: ADL Retraining, Functional Mobility, Group Exercise/Act as Ind, UE Funct Exercise/Act Treatment Duration: May 16, 2019 Frequency: At least 5 of 7 days/Wk (IRF) Estimated Hrs Per Day: 1.5 hours per day Agreement: Yes Rehab Potential: Fair Time/GCodes Start Time: 14:45 Stop Time: 15:22 Total Time Billed (hr/min): 37 Billed Treatment Time 6701-5770 1, EVH x 10minutes, FA x 15minutes [id number] Co-treatment with PT x 12minutes (no charge during PT eval.) Please see above note for designated roles. HEMANT MERCEDES OT Apr 18, 2019 15:39 POS
[2019-04-18] MEDS ORDERED: HYDR-700 PO (16:00)
[2019-04-18] MEDS ORDERED: BENZ1LOZ61 MM (16:00)
[2019-04-18] MEDS ORDERED: METO-333 PEG (16:00)
[2019-04-18] MEDS ORDERED: INSU100V39 SQ (16:00)
[2019-04-18] MEDS ORDERED: OXYB5TAB9 PO (16:00)
[2019-04-18] MEDS ORDERED: CLON1PAT TD (16:00)
[2019-04-18] MEDS ORDERED: MAGIC MOUTHWASH PO (16:00)
[2019-04-18] MEDS ORDERED: HYDR20VI7 IJ (16:00)
[2019-04-18] MEDS ORDERED: ALBU2.5V4 NEB (16:00)
[2019-04-18] MEDS ORDERED: FLUT16SP22 NS (16:00)
[2019-04-18] MEDS ORDERED: ONDA2VIA2 IV (16:00)
[2019-04-18] MEDS ORDERED: DEXT33GE7 PO (16:00)
[2019-04-18] MEDS ORDERED: SERT50TA9 PO (16:00)
[2019-04-18] MEDS ORDERED: NYST1000 PO (16:00)
[2019-04-18] MEDS ORDERED: METO5VIA26 INJ (16:00)
[2019-04-18] MEDS ORDERED: IPRA3AMP31 NEB ×2 (16:00)
[2019-04-18] MEDS ORDERED: ENAL5TAB PEG (16:00)
[2019-04-18] MEDS ORDERED: SODI30SP2 NS (16:00)
[2019-04-18] MEDS ORDERED: FENT50VI IV (16:00)
[2019-04-18] MEDS ORDERED: MORP4VIA IV (16:00)
[2019-04-18] MEDS ORDERED: GLUC1KIT IM (16:00)
[2019-04-18] MEDS ORDERED: ENOX40DI13 SQ (16:00)
[2019-04-18] MEDS ORDERED: LANS30CA PEG (16:00)
[2019-04-18] MEDS ORDERED: FENT1PAT57 TD (16:00)
--- NOTE | 2019-04-18 16:30 | NUR ---
DR. MNOTEJO AND NATALIYA, WOUND NURSE HAVE BEEN HERE TO SEE PATIENT. NATALIYA WILL BE HERE AT 0800 IN AM TO APPLY WOUND VAC TO ABDOMEN. FOR NOW HAS A W-D NORMAL SALINE DRESSING ON ABDOMEN. SON AND DAUGHTER HAVE BEEN HERE TO VISIT. CONTINUES TO DENY PAIN BUT ADMITS TO ANXIETY. IS ON AN AIR BED. PATIENT HAS BEEN TURNED, BUT DOES NOT LIKE TO STAY ON EITHER SIDE. STATES BACK IS MOST COMFORTABLE, BUT HAS PRESSURE SORE ON SACRUM. RODRIGUEZ CATHETER INTACT WITH CLEAR URINE. WAS PUT IN AT [facility] ON 04-13-19.
--- NOTE | 2019-04-18 16:54 | NUR ---
Due to time of order after 14:00 will start patient on Clinimix 4.25%/5% with lytes. Evaluate labs in AM and start 3-n-1 TPN pending labs. Lonnie Giron PharmArlen/ROMEOP/CNSC
[2019-04-18 17:00] VITALS: BP 167/70
[2019-04-18] MEDS ORDERED: RT-ALBUTEROL/IPRATROPIUM 3 ML (DUONEB) VIAL IH SCH (17:00)
[2019-04-18] MEDS ORDERED: RT-ALBUTEROL SULF 2.5 MG/3 ML PRE-MIX VIAL IH PRN (17:00)
[2019-04-18] MEDS ORDERED: FENTANYL CITRATE IV PRN (17:00)
[2019-04-18] MEDS ORDERED: [UNRECOGNIZED DRUG - OTHER] PO PRN (17:00)
[2019-04-18] MEDS ORDERED: MORPHINE SULFATE 2 MG IV PRN (17:00)
[2019-04-18] MEDS ORDERED: HYDROXYZINE HCL PO PRN (17:00)
[2019-04-18] MEDS ORDERED: METOPROLOL TARTRATE INJ PRN (17:00)
[2019-04-18] MEDS ORDERED: DEXTROSE PO PRN (17:00)
[2019-04-18] MEDS ORDERED: NON-FORMULARY MEDICATION 1 EA EA ([Magic Mouthwash] 5 ML) PO SCH (17:00)
[2019-04-18] MEDS ORDERED: NON-FORMULARY MEDICATION 1 EA EA (Ondansetron HCl 4 MG) IV PRN (17:00)
[2019-04-18] MEDS ORDERED: [UNRECOGNIZED DRUG - OTHER] MM PRN (17:00)
[2019-04-18] MEDS ORDERED: RT-ALBUTEROL/IPRATROPIUM 3 ML (DUONEB) VIAL IH PRN (17:00)
[2019-04-18] MEDS ORDERED: SODIUM CHLORIDE NS PRN (17:00)
[2019-04-18] MEDS ORDERED: BENZOCAINE MM PRN (17:00)
[2019-04-18] MEDS ORDERED: NON-FORMULARY MEDICATION 1 EA EA (Enoxaparin Sodium (Lovenox) 40 MG) SQ SCH (17:00)
[2019-04-18] MEDS ORDERED: NYSTATIN 500000 UNIT PO SCH (17:00)
[2019-04-18] MEDS ORDERED: [UNRECOGNIZED DRUG - OTHER] NS PRN (17:00)
[2019-04-18] MEDS ORDERED: MENTHOL MM PRN (17:00)
[2019-04-18] MEDS ORDERED: CHLORASEPTIC LOZENGE MM PRN (17:15)
[2019-04-18] MEDS: AA 4.25% W/LYTES IN D5W IV SOL 1,000 ML IV SCH (17:15)
--- NOTE | 2019-04-18 17:21 | PM&R Post Admission Assessment ---
PM&R HP Date of Visit: Apr 18, 2019 Time of Visit: 17:45 History of Present Illness Chief complaint: Critical illness myopathy HPI: This is a elderly white female clinic Pt of Dr. Simmons who had a very complicated hospital course that included multiple colon perforations requiring multiple surgeries and maintained on an intubated status for several weeks who was sent to [place] and ultimately has been extubated, now on room air and is ready for inpatient rehab. She remains on TPN, NPO status and at this current time, Pt is very weak and will try to lessen the burden of caregivers in case she needs to go fdc at discharge. Patient does have evidence of dementia which will further complicate her recovery. Prior to original admit patient was independent with all activity. She does have a wound vac and Dr Willett has been consulted. Past Okrjbzy-Uphkwl-Esdvwj Hx Past Med/Social Hx: Reviewed Nursing Past Med/Soc Hx, Reviewed and Corrections made Patient Social History Marrital Status: Employed/Student: retired ([employer]) Alcohol Use: Denies Use Recreational Drug Use: No Smoking Status: Former Smoker Former Smoker, Quit: Apr 18, 1959 Type Used: Cigarettes 2nd Hand Smoke Exposure: No Physical Abuse Screen: No Sexual Abuse: No Recent Foreign Travel: No Contact w/other who traveled: No Recent Hopitalizations: Yes ([facility]) Recent Infectious Disease Expo: No Immunizations Up To Date Tetanus Booster (TDap): Unknown Pediatric: Yes Date of Pneumonia Vaccine: Jan 06, 2015 Date of Influenza Vaccine: Feb 10, 2019 Seasonal Allergies Seasonal Allergies: No Past Medical History Surgeries: Abdominal, Appendectomy, Breast, Cardiac, Eye Surgery, Hysterectomy, Oophorectomy, Renal Currently Using CPAP: No Currently Using BIPAP: No Cardiac: High Cholesterol, Hypertension Neurological: Dementia (new dx 04/2019), Headaches /Migraines, Neuropathy 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: Yes (HYSTERECTOMY) Sexually Transmitted Disease: No HIV/AIDS: No Hysterectomy, Menopausal Genitourinary: Kidney Stones Gastrointestinal: Gastroesophageal Reflux, Obstructive Bowel Musculoskeletal: Chronic Back Pain, Gout Endocrine: Diabetes, Insulin dep, Hypothyroidsim Are Your Blood Sugars Over 250: No HEENT: Cataract Loss of Vision: Denies Hearing Impairment: Denies Cancer: Colon Did You Recieve Any Treatments: Yes What Type of Treatment Did You: Chemotherapy, Surgical Intervention Psychosocial: Anxiety, Depression History of Blood Disorders: No Adverse Reaction to Blood Lock[place]: No Family History Cancer 03 FATHER, , Onset:60 years & older 03 MOTHER, , Onset:60 years & older 09 BROTHER, , Onset:60 years & older 09 BROTHER, , Onset:60 years & older 09 BROTHER, Onset:60 years & older 09 SISTER, , Onset:60 years & older Cancer of colon 09 BROTHER, , Onset:60 years & older Dementia 09 SISTER, Onset:60 years & older Family history: Diabetes mellitus 09 SISTER, , Onset:60 years & older Heart disease 03 FATHER, , Onset:60 years & older 09 SISTER, , Onset:60 years & older History of - respiratory disease 09 BROTHER, Onset:60 years & older Prostate cancer 09 BROTHER, Onset:60 years & older Stroke 03 MOTHER, , Onset:50's - 60 Heart Disease, Cancer, CVA Prior Level of Function Bed Mobility: 6 Transfers: 6 Gait: 6 Stairs: 6 Self Care: Needed Some Help Functional Cognition: Independent 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 Current Level of Fuctioning Roll Left to Right: 1 Sit to Lyin Lying to Sitting/Side of Bed: 88 Sit to Stand: 88 Chair/Sow-cs-Atzec Xfer: 88 Car Transfer: 88 Does the Patient Walk: No and Walking Goal NOT indicated Mode of Locomotion: Wheelchair Anticipated Mode of Locomotion: Wheelchair Walk 10 feet: 88 Walk 50 ft with 2 Turns: 88 Walk 150 ft: 88 Walking 10ft on uneven surface: 88 Does the Pt Use a Wheelchair: Yes Wheel 50 ft with 2 turns: 88 Wheel 150 ft: 88 Type of Wheelchair: Manual 1 Step (curb): 88 4 Steps: 88 12 Steps: 88 Picking up an Object: 88 Eatin Oral Hygiene: 7 Shower/Bathe Self: 10 Upper Body Dressin Lower Body Dressin On/Off Footwear: 1 Toileting Hygiene: 1 (Colostomy and catheter.) Toilet Transfer: 88 PM&R Allergy/Meds/Data Review Allergies Coded Allergies: levofloxacin (Verified Adverse Reaction, Mild, RASH, 07/06/12) amoxicillin (Unverified Adverse Reaction, Unknown, 05/28/14) YEAST INFECTION latex (Unverified Adverse Reaction, Unknown, 04/18/18) Home Medications Scheduled Clonidine (Catapres-TTS 1 Patch), 0.1 MG TD Q7D, (Reported) Enalapril Maleate (Enalapril Maleate), 5 MG PEG DAILY, (Reported) Enoxaparin Sodium (Lovenox), 40 MG SQ 1700, (Reported) Fentanyl (Duragesic Patch 25MCG), 25 MCG TD Q72H, (Reported) Fluticasone Propionate (Fluticasone Propionate), 1 SPRAY NS DAILY, (Reported) Insulin Glargine,Hum.rec.anlog (Lantus), 10 UNIT SQ DAILY, (Reported) Insulin Lispro (Insulin Lispro), 0-14 UNIT SQ Q6H, (Reported) Ipratropium/Albuterol Sulfate (Iprat-Albut 0.5-3(2.5) mg/3 ml), 3 ML NEB Q4H, (Reported) Lansoprazole (Lansoprazole), 30 MG PEG BID, (Reported) Metoprolol Tartrate (Metoprolol Tartrate), 25 MG PEG BID, (Reported) Nystatin (Nystatin), 500,000 UNIT PO QID, (Reported) Oxybutynin Chloride (Oxybutynin Chloride), 5 MG PO BID, (Reported) Sertraline HCl (Sertraline HCl), 50 MG PO DAILY, (Reported) [Magic Mouthwash], 5 ML PO QID, (Reported) Scheduled PRN Albuterol Sulfate (Albuterol Sulfate), 2.5 MG NEB Q4H PRN for SHORTNESS OF BREATH, (Reported) Benzocaine/Menthol (Cepacol Sore Throat Lozenge), 1 LOZENGE MM Q4H PRN for SORE THROAT, (Reported) Dextrose (Glucose), 31 GM PO UD PRN for LOW BLOOD GLUCOSE, (Reported) Fentanyl Citrate/Pf (Fentanyl 50 Mcg/ml Vial), 50 MCG IV Q4H PRN for PAIN-SEVERE (8-10), (Reported) Glucagon,Human Recombinant (Glucagon Emergency Kit), 1 MG IM UD PRN for BG</= 70, (Reported) Hydralazine HCl (Hydralazine HCl), 10 MG IJ Q4H PRN for SBP>160, (Reported) Hydroxyzine HCl (Hydroxyzine HCl), 12.5 MG PO Q8H PRN for ANXIETY, (Reported) Ipratropium/Albuterol Sulfate (Iprat-Albut 0.5-3(2.5) mg/3 ml), 3 ML NEB Q6H PRN for SHORTNESS OF BREATH, (Reported) Metoprolol Tartrate (Metoprolol Tartrate), 7.5 MG INJ Q6H PRN for BP>140, (Reported) Morphine Sulfate (Morphine Sulfate), 2 MG IV Q4H PRN for PAIN-SEVERE (8-10), (Reported) Ondansetron HCl (Ondansetron HCl), 4 MG IV Q6H PRN for NAUSEA/VOMITING-1ST LINE, (Reported) Sodium Chloride (Saline Nasal [place]), 2 SPRAYS NS Q2H PRN for CONGESTION, (Reported) Discontinued Medications Cephalexin (Keflex), 500 MG PO TID Discontinued Reason: No Longer Taking Ondansetron (Ondansetron Odt), 8 MG PO Q6H PRN for NAUSEA/VOMITING Discontinued Reason: No Longer Taking Current Medications Current Medications Reviewed Review of Systems Constitutional: see HPI, malaise, weakness Gastrointestinal: abdominal pain Skin: other (pressure ulcers) Psychiatric/Neurological: Weakness, Other (confused) All Other Systems Reviewed Negative Unless Noted: Yes Physical Exam Physical Exam Vital Signs Capillary Refill : Height, Weight, BMI Height: 5'5.00" Weight: 160lbs. 0.0oz. [id number]; 63438.97 BMI Method:Stated General Appearance: No Apparent Distress, Chronically ill, Cachetic, Other (pale, chronically ill) Eyes: Bilateral Eye Normal Inspection, Bilateral Eye PERRL HEENT: PERRL/EOMI, Normal ENT Inspection, Pharynx Normal Neck: Full Range of Motion, Normal Inspection, Non Tender, Supple, Carotid Bruit Respiratory: Chest Non Tender, Lungs Clear, Normal Breath Sounds, No Accessory Muscle Use, No Respiratory Distress Cardiovascular: Regular Rate, Rhythm, No Edema, No Gallop, No JVD, No Murmur, Normal Peripheral Pulses Gastrointestinal: Normal Bowel Sounds, No Organomegaly, No Pulsatile Mass, Non Tender, Soft Back: Normal Inspection, No CVA Tenderness, No Vertebral Tenderness Extremity: Normal Capillary Refill, Normal Inspection, Normal Range of Motion, Non Tender, No Calf Tenderness, No Pedal Edema Neurologic/Psychiatric: Alert, Oriented x3, No Motor/Sensory Deficits (severe weakness all extremities), Normal Mood/Affect, mammalogist II-XII Norm as Tested, Disoriented Skin: Normal Color, Warm/Dry, Rash (pressure ulcers sarcum, scalp and wound midline) Lymphatic: No Adenopathy PM&R Medical Assessment & Plan REHAB/MEDICAL ASSESSMENT AND PLAN: REHAB IMPAIRMENT GROUP: Critical illness myopathy ETIOLOGIC DIAGNOSIS: Critical illness myopathy The comorbidities that impact the patients function and/or functional outcome by: dementia recent dx with delirium, DM insulin requiring, TPN dependent REHAB PLAN: The patient is being admitted to our comprehensive inpatient rehabilitation facility and can tolerate the intensity of service consisting of at least: 180 minutes of therapy a day, 5 out of 7 days a week Rehab treatment will consist of: PT/OT will aggressively work on increasing strength and mobility in order to DC from hospital to NH or home The patient/family has a good understanding of our discharge process and will benefit from an interdisciplinary inpatient rehabilitation program. The patient has potential to make improvement and is in need of at least two of the following multidisciplinary therapies including but not limited to physical, occupational, speech, and prosthetics and orthotics. Additionally the patient will need services from respiratory, nutritional services, wound care, psychology, etc. (Customize this to each patient). Given the patients complex condition and risk of further medical complications, rehabilitation services cannot be safely or effectively provided at a lower level of care such as a fdc facility. BARRIERS TO DISCHARGE: Severe weakness and TPN dependent ESTIMATED LOS: 14 days DISPOSITION: Home versus NH RELEVANT CHANGES SINCE PREADMISSION SCREENING: I have compared the patients medical and functional status at the time of the preadmission screening and there are: no changes PROGNOSIS: Fair REHABILITATION GOALS: 1. Work to regain some independence in order to lessen burden of care on caregivers All the above goals were reviewed with the patient and he/she is in agreement. By signing this document, I acknowledge that I have personally performed a full physical examination on this patient within 24 hours of admission to this inpatient rehabilitation facility and have determined the patient to be able to tolerate the above course of treatment at an intensive level for a reasonable period of time. I will be completing a detailed individualized Plan of Care for this patient by day #4 of the patients stay based upon the Preadmission Screen, the Post-Admission Evaluation, and the therapy evaluations. 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
[2019-04-18] MEDS ORDERED: meTOprolol 5 MG/5 ML (LOPRESSOR) VIAL IV PRN (17:30)
[2019-04-18] MEDS: RT-ALBUTEROL/IPRATROPIUM 3 ML (DUONEB) VIAL IH SCH ×2 (17:42→22:53)
[2019-04-18] MEDS: CATHETER FLUSH 10 ML SYR IV PRN (18:00)
[2019-04-18] MEDS ORDERED: DEXTROSE 40% ORAL GEL 37.5 ML TUBE PO PRN (18:00)
[2019-04-18] MEDS: ENOXAPARIN 40 MG/0.4 ML (LOVENOX) SYR SC SCH (18:00)
--- NOTE | 2019-04-18 18:26 | Consultation - Surgery ---
History of Present Illness History of Present Illness Patient Consulted On(dimitris/time) 04/18/19 18:19 Time Seen by Provider: 17:01 History of Present Illness Surgery asked to consult regarding open abdominal wound, need for wound VAC. HPI: Pt is a 73 yo female who was transferred from [place] [facility]. She had been at [facility] (underwent multiple surgeries) and was sent to [place]. When seen today she is mildly confused, but answers questions and denies abdominal pain. She tolerates ice chips and the nurses crush up her pills and put it in vanilla pudding. She appears healthier and stronger than when I last saw her. Allergies and Home Medications Allergies Coded Allergies: levofloxacin (Verified Adverse Reaction, Mild, RASH, 07/06/12) amoxicillin (Unverified Adverse Reaction, Unknown, 05/28/14) YEAST INFECTION latex (Unverified Adverse Reaction, Unknown, 04/18/18) Home Medications Albuterol Sulfate 2.5 Mg/3 Ml Vial.neb, 2.5 MG NEB Q4H PRN for SHORTNESS OF BREATH, (Reported) Benzocaine/Menthol 1 Each Lozenge, 1 LOZENGE MM Q4H PRN for SORE THROAT, (Reported) Clonidine 1 Each Patch.tdwk, 0.1 MG TD Q7D, (Reported) START DATE 03-26-19 Dextrose 33 Gm Gel.packet, 31 GM PO UD PRN for LOW BLOOD GLUCOSE, (Reported) MAY GIVE IF BG </= 70, PATIENT IS ALERT AND IS NOT NPO Enalapril Maleate 5 Mg Tablet, 5 MG PEG DAILY, (Reported) Enoxaparin Sodium 40 Mg/0.4 Ml Syringe, 40 MG SQ 1700, (Reported) Fentanyl 1 Each Patch.td72, 25 MCG TD Q72H, (Reported) Fentanyl Citrate/Pf 50 Mcg/1 Ml Vial, 50 MCG IV Q4H PRN for PAIN-SEVERE (8-10), (Reported) Fluticasone Propionate 16 Gm Mineral.susp, 1 SPRAY NS DAILY, (Reported) Glucagon,Human Recombinant 1 Mg/Kit Soln, 1 MG IM UD PRN for BG</= 70, (Reported) IF PATIENT IS NOT ALERT AND PATIENT HAS NO IV ACCESS Hydralazine HCl 20 Mg/1 Ml Vial, 10 MG IJ Q4H PRN for SBP>160, (Reported) Hydroxyzine HCl 25 Mg Tablet, 12.5 MG PO Q8H PRN for ANXIETY, (Reported) Insulin Glargine,Hum.rec.anlog 100 Unit/1 Ml Vial, 10 UNIT SQ DAILY, (Reported) Insulin Lispro 100 Unit/1 Ml Vial, 0-14 UNIT SQ Q6H, (Reported) SLIDING SCALE A Ipratropium/Albuterol Sulfate 3 Ml Ampul.neb, 3 ML NEB Q4H, (Reported) Ipratropium/Albuterol Sulfate 3 Ml Ampul.neb, 3 ML NEB Q6H PRN for SHORTNESS OF BREATH, (Reported) Lansoprazole 30 Mg Capsule.dr, 30 MG PEG BID, (Reported) Metoprolol Tartrate 25 Mg Tablet, 25 MG PEG BID, (Reported) Metoprolol Tartrate 5 Mg/5 Ml Vial, 7.5 MG INJ Q6H PRN for BP>140, (Reported) HOLD FOR HEART RATE LESS THAN 70 Morphine Sulfate 4 Mg/1 Ml Vial, 2 MG IV Q4H PRN for PAIN-SEVERE (8-10), (Reported) Nystatin 100,000 Unit/1 Ml Oral.susp, 500,000 UNIT PO QID, (Reported) SWISH AND SWALLOW Ondansetron HCl 2 Mg/1 Ml Vial, 4 MG IV Q6H PRN for NAUSEA/VOMITING-1ST LINE, (Reported) Oxybutynin Chloride 5 Mg Tablet, 5 MG PO BID, (Reported) Sertraline HCl 50 Mg Tablet, 50 MG PO DAILY, (Reported) Sodium Chloride 30 Ml Mineral, 2 SPRAYS NS Q2H PRN for CONGESTION, (Reported) [Magic Mouthwash] , 5 ML PO QID, (Reported) SWISH AND SWALLOW Patient Home Medication List Home Medication List Reviewed: Yes Past Fazfnyu-Eyktle-Ikzcwe Hx Patient Social History Alcohol Use: Denies Use Recreational Drug Use: No Smoking Status: Former Smoker Former Smoker, Quit: Apr 18, 1959 Type Used: Cigarettes 2nd Hand Smoke Exposure: No Recent Foreign Travel: No Contact w/Someone Who Travel: No Recent Infectious Disease Expo: No Recent Hopitalizations: Yes ([facility] FOR OPEN ABDOMINAL WOUND) Physical Abuse Screen: No Sexual Abuse: No Immunizations Up To Date Tetanus Booster (TDap): Unknown PED Vaccines UTD: Yes Date of Pneumonia Vaccine: Jan 06, 2015 Date of Influenza Vaccine: Feb 10, 2019 Seasonal Allergies Seasonal Allergies: No Surgeries History of Surgeries: Yes Surgeries: Abdominal, Appendectomy, Breast, Cardiac, Eye Surgery, Hysterectomy, Oophorectomy, Renal Respiratory History of Respiratory Disorde: Yes (PUNCTURED LUNG FROM PORT PLACEMENT) Respiratory Disorders: Sleep Apnea Cardiovascular History of Cardiac Disorders: Yes Cardiac Disorders: High Cholesterol, Hypertension Neurological History of Neurological Disord: Yes Neurological Disorders: Headaches /Migraines, Neuropathy 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 System Hx 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 Disorders: Yes (HYSTERECTOMY) Sexually Transmitted Disease: No HIV/AIDS: 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, 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 Genitourinary History of Genitourinary Disor: Yes (LITHOTRIPSY) Genitourinary Disorders: Kidney Stones Gastrointestinal History of Gastrointestinal Di: Yes (COLECTOMY WITH PERMANENT ILEOSTOMY FOR COLON CANCER AROUND 2000) Gastrointestinal Disorders: Gastroesophageal Reflux, Obstructive Bowel Musculoskeletal History of Musculoskeletal Dis: Yes (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) Musculoskeletal Disorders: Chronic Back Pain, Gout Endocrine History of Endocrine Disorders: Yes Endocrine Disorders: Diabetes, Insulin dep, Hypothyroidsim HEENT History of HEENT Disorders: Yes (CATARACT SURGERY BILATERALLY) HEENT Disorders: Cataract Loss of Vision: Denies Hearing Impairment: Denies Cancer History of Cancer: Yes (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; COLON CANCER AROUND --S/P SURGERY ADN CHEMO) Cancer: Colon Psychosocial History of Psychiatric Problem: Yes Behavioral Health Disorders: Anxiety, Depression Integumentary History of Skin or Integumenta: No Blood Transfusions History of Blood Disorders: No Adverse Reaction to a Blood Tr: No Family Medical History Significant Family History: Heart Disease, Cancer, CVA Family Medial History: Cancer 03 FATHER, , Onset:60 years & older 03 MOTHER, , Onset:60 years & older 09 BROTHER, , Onset:60 years & older 09 BROTHER, , Onset:60 years & older 09 BROTHER, Onset:60 years & older 09 SISTER, , Onset:60 years & older Cancer of colon 09 BROTHER, , Onset:60 years & older Dementia 09 SISTER, Onset:60 years & older Family history: Diabetes mellitus 09 SISTER, , Onset:60 years & older Heart disease 03 FATHER, , Onset:60 years & older 09 SISTER, , Onset:60 years & older History of - respiratory disease 09 BROTHER, Onset:60 years & older Prostate cancer 09 BROTHER, Onset:60 years & older Stroke 03 MOTHER, , Onset:50's - 60 Review of Systems-General Constitutional: No chills, No diaphoresis EENTM: No blurred vision, No double vision, No mouth swelling Respiratory: No cough, No dyspnea on exertion Cardiovascular: No palpitations Gastrointestinal: No abdominal pain, No jaundice, No nausea, No vomiting; other (open abd incision) Genitourinary: No dysuria, No hematuria Musculoskeletal: joint pain, muscle stiffness Skin: other (pt has sacral decub and on back of head) Psychiatric/Neurological: Anxiety; Denies Seizure, Denies Tremors Physical Exam-General Problems Physical Exam Vital Signs Vital Signs - First Documented 04/18/19 17:43 Pulse Ox 87 O2 Delivery Room Air Capillary Refill : General Appearance: no apparent distress, other (chronically ill, ) Eyes: Bilateral Eye PERRL, Bilateral Eye EOMI HEENT: pharynx normal; No scleral icterus (R), No scleral icterus (L) Respiratory: lungs clear, normal breath sounds, no respiratory distress, no accessory muscle use Cardiovascular: regular rate, rhythm, no murmur Gastrointestinal: soft, other (pt has 2 working Ileostomies (pink and functional), abdominal incision is open, can see vicryl mesh and good granulation tissue) Extremities: no calf tenderness, normal capillary refill Skin: normal color, warm/dry, other (sacral decub, skin breakdown on back of head) Assessment/Plan Assessment/Plan Assessment/Plan Open abdominal Incision Malnutrition Mild Dementia Sacral Decub Pt will need white foam and then black foam with wound VAC for abdominal wound, repositioning at least every 2 hours and relief of pressure on sacrum and back of head. I already spoke to wound care about Wound Vac and management of her 2 ileostomies (appears as if the one in the left abdomen was not placed correctly). TPN for nutrition, oral feedings ok but probably will not be absorbed by pt. MISSY MONTEJO DO Apr 18, 2019 18:26 POS
[2019-04-18] MEDS: OXYBUTYNIN (DITROPAN) 5 MG TAB PO SCH (20:58)
[2019-04-18] MEDS: meTOprolol TARTRATE 25 MG (LOPRESSOR) TABLET PEG SCH (20:58)
[2019-04-18] MEDS: NYSTATIN ORAL SUSP 5 ML UDC PO SCH (20:59)
[2019-04-18] MEDS: VISC LIDOCAINE/ANTACID/DIPHENHYDRAMINE 1:1:1 120 ML PO SCH ×3 (20:59)
[2019-04-18] MEDS ORDERED: PANTOPRAZOLE 2 MG/ML LIQUID 200 ML (PROTONIX) PEG SCH ×3 (21:00)
[2019-04-18] MEDS ORDERED: NON-FORMULARY MEDICATION 1 EA EA (Oxybutynin Chloride 5 MG) PO SCH (21:00)
[2019-04-18] MEDS ORDERED: NON-FORMULARY MEDICATION 1 EA EA (Lansoprazole 30 MG) PEG SCH (21:00)
[2019-04-18] MEDS: CATHETER FLUSH 10 ML SYR IV SCH (21:04)
[2019-04-19 00:56] VITALS: BP 175/76
[2019-04-19] MEDS: hydrALAZINE (APESOLINE) 20 MG/ML VIAL IV PRN (00:56)
[2019-04-19] MEDS: AA 4.25% W/LYTES IN D5W IV SOL 1,000 ML IV SCH (00:56)
[2019-04-19] MEDS: CATHETER FLUSH 10 ML SYR IV SCH ×3 (00:56→21:53)
[2019-04-19] MEDS: RT-ALBUTEROL/IPRATROPIUM 3 ML (DUONEB) VIAL IH SCH ×6 (01:22→22:39)
[2019-04-19] MEDS: fentaNYL INJECTION 100 MCG/2 ML AMP IV PRN ×2 (01:23→08:01)
[2019-04-19] MEDS: hydrOXYzine (VISTARIL/ATARAX) 25 MG capsule/tablet PO PRN (01:52)
[2019-04-19 05:40] LABS: BASOPHILS % (AUTO) 0 % (0-10); EOSINOPHILS # (AUTO) 0.1 10^3/uL (0.0-0.3); EOSINOPHILS % (AUTO) 1 % (0-10); HEMATOCRIT 28 % (35-52); HEMOGLOBIN 8.4 G/DL (11.5-16.0); LYMPHOCYTES % (AUTO) 11 % (12-44); MEAN CORPUSCULAR HEMOGLOBIN 31 PG (25-34); MEAN CORPUSCULAR HGB CONC 30 G/DL (32-36); MEAN CORPUSCULAR VOLUME 104 FL (80-99); MEAN PLATELET VOLUME 10.5 FL (7.4-10.4); MONOCYTES # (AUTO) 0.6 X 10^3 (0.0-1.0); MONOCYTES % (AUTO) 7 % (0-12); NEUTROPHILS # (AUTO) 7.8 X 10^3 (1.8-7.8); NEUTROPHILS % (AUTO) 82 % (42-75); PLATELET COUNT 240 10^3/uL (130-400); RED CELL DISTRIBUTION WIDTH 18.7 % (10.0-14.5); WHITE BLOOD COUNT 9.5 10^3/uL (4.3-11.0)
--- NOTE | 2019-04-19 05:53 | NUR ---
Pt found sitting in floor in bathroom in front of toilet. Pt had been in bed at 0530 with lab in room drawing blood when this RN last saw pt. video surveillance technician left pt in bed with the two bottom rails down when labd draw completle as well bed alarm off. No c/o's pain or discomfort. No injury noted. Dr. Hand notified and will notify when she gets here this morning. Addendum: 04/19/19 at 0605 by SANTO NICHOLS RN WRONG CHART
[2019-04-19 06:14] LABS: ALANINE AMINOTRANSFERASE 57 U/L (0-55); ALBUMIN 1.9 GM/DL (3.2-4.5); ALKALINE PHOSPHATASE 134 U/L (40-136); BILIRUBIN,TOTAL 3.2 MG/DL (0.1-1.0); BUN/CREATININE RATIO 83; CALCIUM 8.4 MG/DL (8.5-10.1); CARBON DIOXIDE 24 MMOL/L (21-32); CHLORIDE 114 MMOL/L (98-107); CREATININE SERUM 0.65 MG/DL (0.60-1.30); GFR ESTIMATED > 60; GLUCOSE 160 MG/DL (70-105); MAGNESIUM 1.7 MG/DL (1.6-2.4); PHOSPHORUS 4.7 MG/DL (2.3-4.7); POTASSIUM 4.3 MMOL/L (3.6-5.0); SODIUM 146 MMOL/L (135-145); TOTAL PROTEIN 5.6 GM/DL (6.4-8.2); TRIGLYCERIDES 224 MG/DL (<150)
[2019-04-19 06:21] VITALS: BP 176/75
[2019-04-19 08:00] VITALS: BP 168/74
[2019-04-19] MEDS: CATHETER FLUSH 10 ML SYR IV PRN (08:04)
[2019-04-19] MEDS ORDERED: NON-FORMULARY MEDICATION 1 EA EA (Insulin Glargine,Hum.rec.anlog (Lantus) 10 UNIT) SQ SCH (09:00)
[2019-04-19] MEDS: meTOprolol TARTRATE 25 MG (LOPRESSOR) TABLET PEG SCH (09:31)
[2019-04-19] MEDS: ENALAPRIL 5 MG (VASOTEC) TAB PEG SCH (09:31)
[2019-04-19] MEDS: OXYBUTYNIN (DITROPAN) 5 MG TAB PO SCH ×2 (09:31→20:29)
[2019-04-19] MEDS: SERTRALINE 50 MG (ZOLOFT) TABLET PO SCH (09:31)
[2019-04-19] MEDS: NYSTATIN ORAL SUSP 5 ML UDC PO SCH ×4 (09:32→21:29)
[2019-04-19] MEDS: FLUTICASONE NASAL SPRAY (FLONASE) 16 GM BTL NS SCH (09:47)
--- NOTE | 2019-04-19 09:49 | NUR ---
Per Dr. Willett request Ileostomy on left side removed and replaced with correctly cut wafer. Stoma was pink and moist with no signs of irritation. Peristoma area no signs of redness, broken skin or irritation.
[2019-04-19] MEDS: VISC LIDOCAINE/ANTACID/DIPHENHYDRAMINE 1:1:1 120 ML PO SCH ×12 (09:52→21:28)
--- NOTE | 2019-04-19 10:00 | NUR ---
DR. ROMO NOTIFIED OF CONSULT AND LOPRESSOR DOSE INCREASED.
--- NOTE | 2019-04-19 10:03 | PM&R Progress Note ---
Subjective HPI/CC On Admission Date Seen by Provider: Apr 19, 2019 Time Seen by Provider: 09:30 Subjective/Events-last exam Wound VAC is maintained and tolerated well Stage II coccyx decubitus ulcer is not at the level of stage III which is great news We will initiate an type of air bed to help Consulting Dr. Galeano for elevated heart rate and blood pressure management TPN maintain causing cholestasis with elevated liver enzymes Ileostomy x2 maintaining good output Very weak and very confused at times Conferred with RN Check meds and labs Reviewed therapy notes Long recovery expected Review of Systems General: Fatigue Gastrointestinal: Abdominal Pain Neurological: Weakness, Numbness, Incoordination, Confusion Objective Exam Vital Signs Vital Signs Date Time Temp Pulse Resp B/P (MAP) Pulse Ox O2 Delivery O2 Flow Rate FiO2 04/19/19 18:23 36.6 77 18 129/65 (86) 96 Nasal Cannula 2.00 Capillary Refill : General Appearance: No Apparent Distress, Chronically ill, Cachetic, Other (pale, chronically ill) HEENT: PERRL/EOMI, Normal ENT Inspection, Pharynx Normal Neck: Full Range of Motion, Normal Inspection, Non Tender, Supple, Carotid Bruit Respiratory: Chest Non Tender, Lungs Clear, Normal Breath Sounds, No Accessory Muscle Use, No Respiratory Distress Cardiovascular: Regular Rate, Rhythm, No Edema, No Gallop, No JVD, No Murmur, Normal Peripheral Pulses Gastrointestinal: Normal Bowel Sounds, No Organomegaly, No Pulsatile Mass, Non Tender, Soft Back: Normal Inspection, No CVA Tenderness, No Vertebral Tenderness Extremity: Normal Capillary Refill, Normal Inspection, Normal Range of Motion, Non Tender, No Calf Tenderness, No Pedal Edema Neurologic/Psychiatric: Alert, Oriented x3, No Motor/Sensory Deficits (severe weakness all extremities), Normal Mood/Affect, clinical reviewer II-XII Norm as Tested, Disoriented Skin: Normal Color, Warm/Dry, Rash (pressure ulcers sarcum, scalp and wound midline) Lymphatic: No Adenopathy Results/Procedures Lab Laboratory Tests 04/19/19 05:30 Patient resulted labs reviewed. FIM Transfers Therapy Code Descriptions/Definitions Functional [place] Measure: 0=Not Assessed/NA 4=Minimal Assistance 1=Total Assistance 5=Supervision or Setup 2=Maximal Assistance 6=Modified [place] 3=Moderate Assistance 7=Complete IndependenceSCALE: Activities may be completed with or without assistive devices. 4-Agnjbyhgeq-qfhakdb completes the activity by him/herself with no assistance from a helper. 5-Set-up or Clean-up Assistance-helper sets up or cleans up; patient completes activity. [place] assists only prior to or following the activity. 4-Supervision or Touching Assistance-helper provides verbal cues and/or touching /steadying and/or contact guard assistance as patient completes activity. Assistance may be provided throughout the activity or intermittently. 3-Partial/Moderate Assistance-helper does LESS THAN HALF the effort. [place] lifts, holds or supports trunk or limbs, but provides less than half the effort. 2-Substantial/Maximal Assistance-helper does MORE THAN HALF the effort. [place] lifts or holds trunk or limbs and provides more than half the effort. 8-Jyifpidqg-psbnhm does ALL the effort. Patient does none of the effort to complete the activity. Or, the assistance of 2 or more helpers is required for the patient to complete the activity. If activity was not attempted, code reason: 7-Patient Refused. 9-Not Applicable-not attempted and the patient did not perform the activity before the current illness, exacerbation or injury. 10-Not Attempted due to Environmental Limitations-(lack of equipment, weather restraints, etc.). 88-Not Attempted due to Medical Conditions or Safety Concerns. Roll Left to Right (QC): 1 Sit to Lying (QC): 88 Sit to Stand (QC): 88 Chair/Mik-ch-Jvrmv Xfer(QC): 88 Car Transfer (QC): 88 Gait Training Does the Patient Walk?: No and Walking Goal NOT indicated Walk 10 feet (QC): 88 Walk 50 ft with 2 Turns(QC): 88 Walk 150 ft (QC): 88 Walking 10ft/uneven surface-QC: 88 Wheelchair Training Does the Pt Use a Wheelchair?: Yes Wheel 50 ft with 2 turns (QC): 88 Wheel 150 ft (QC): 88 Type of Wheelchair: Manual Stair Training 1 Step (curb) (QC): 88 4 Steps (QC): 88 12 Steps (QC): 88 Balance Picking up an Object (QC): 88 ADL-Treatment Eating (QC): 88 Oral Hygiene (QC): 7 Shower/Bathe Self (QC): 10 Upper Body Dressing (QC): 88 Lower Body Dressing (QC): 88 On/Off Footwear (QC): 1 Toileting Hygiene (QC): 1 (Colostomy and catheter.) Toilet Transfer (QC): 88 Assessment/Plan Assessment and Plan Assess & Plan/Chief Complaint Assessment: 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 Diabetes mellitus Low albumin TPN required History of respiratory failure Elevated liver enzymes due to cholestasis from TPN Anemia checking iron level Confusion with undercurrent of dementia Decubitus ulcers Tachycardia Plan: Inpatient rehab protocol TPN Wound care for pressure ulcers Air bed TPN wean (1) Critical illness myopathy Status: Acute (2) Essential hypertension Status: Chronic (3) Abdominal pain (4) HLP (5) Headache Status: Acute (6) Perforated abdominal viscus Status: Acute (7) Postoperative abdominal pain Status: Acute (8) IDDM (insulin dependent diabetes mellitus) Status: Chronic YARON GALLAGHER DO Apr 19, 2019 10:03 POS
[2019-04-19] MEDS ORDERED: meTOprolol TARTRATE 50 MG (LOPRESSOR) TAB PO ONE (10:15)
--- NOTE | 2019-04-19 10:30 | Progress Note - Surgery ---
Subjective Time Seen by a Provider: 08:41 Subjective/Events-last exam Pt seen and examined, just had wound VAC placed. She tolerated this well. Only complaint is of being anxious. Review of Systems General: No Chills, No Night Sweats Cardiovascular: No: Chest Pain, Palpitations Gastrointestinal: No: Nausea, Vomiting, Abdominal Pain Objective Exam Vital Signs Date Time Temp Pulse Resp B/P (MAP) Pulse Ox O2 Delivery O2 Flow Rate FiO2 04/19/19 06:43 91 Nasal Cannula 2.00 04/19/19 06:21 37.0 96 20 176/75 (108) 96 Room Air 04/19/19 01:22 92 Nasal Cannula 2.00 04/19/19 00:56 96 18 175/76 (109) 94 Room Air 04/18/19 22:53 91 Nasal Cannula 2.00 04/18/19 21:19 Nasal Cannula 2.00 04/18/19 18:01 Nasal Cannula 2.00 04/18/19 17:43 87 Room Air 04/18/19 17:00 36.9 95 16 167/70 (102) 91 Room Air 04/18/19 14:30 37.0 96 18 168/72 (104) 96 Room Air I & O 04/19/19 07:00 Intake Total 1050 ml Output Total 1200 ml Balance -150 ml Capillary Refill : General Appearance: No Apparent Distress, Cachetic, Other (pale, chronically ill) HEENT: PERRL/EOMI, Pharynx Normal Respiratory: Chest Non Tender, Lungs Clear, Normal Breath Sounds, No Accessory Muscle Use, No Respiratory Distress Cardiovascular: Regular Rate, Rhythm, No Murmur Gastrointestinal: soft, other (pt has 2 working Ileostomies (pink and functional), abdominal incision is open, can see vicryl mesh and good granulation tissue) Extremity: No Calf Tenderness, No Pedal Edema Neurologic/Psychiatric: Alert, No Motor/Sensory Deficits (severe weakness all extremities), Disoriented Skin: Rash (pressure ulcers sarcum, scalp and wound midline) Results Lab Laboratory Tests 04/18/19 19:16: Glucometer 135H 04/19/19 00:46: Glucometer 139H 04/19/19 05:30: White Blood Count 9.5, Red Blood Count 2.72L, Hemoglobin 8.4L, Hematocrit 28L, Mean Corpuscular Volume 104H, Mean Corpuscular Hemoglobin 31, Mean Corpuscular Hemoglobin Concent 30L, Red Cell Distribution Width 18.7H, Platelet Count 240, Mean Platelet Volume 10.5H, Neutrophils (%) (Auto) 82H, Lymphocytes (%) (Auto) 11L, Monocytes (%) (Auto) 7, Eosinophils (%) (Auto) 1, Basophils (%) (Auto) 0, Neutrophils # (Auto) 7.8, Lymphocytes # (Auto) 1.0, Monocytes # (Auto) 0.6, Eosinophils # (Auto) 0.1, Basophils # (Auto) 0.0, Sodium Level 146H, Potassium Level 4.3, Chloride Level 114H, Carbon Dioxide Level 24, Anion Gap 8, Blood Urea Nitrogen 54H, Creatinine 0.65, Estimat Glomerular Filtration Rate > 60, BUN/Creatinine Ratio 83, Glucose Level 160H, Calcium Level 8.4L, Corrected Calcium 10.1, Phosphorus Level 4.7, Magnesium Level 1.7, Total Bilirubin 3.2H, Aspartate Amino Transf (AST/SGOT) 80H, Alanine Aminotransferase (ALT/SGPT) 57H, Alkaline Phosphatase 134, Total Protein 5.6L, Albumin 1.9L, Triglycerides Level 224H 04/19/19 05:33: Glucometer 165H Assessment/Plan Assessment/Plan Assessment/Plan Open abdominal Incision Malnutrition Mild Dementia Sacral Decub Pt will need white foam and then black foam with wound VAC for abdominal wound to be changed Tuesdays and Fridays. Dr. Cohen will reassess on Monday. Repositioning at least every 2 hours and relief of pressure on sacrum and back of head. Ilestomy care and TPN for nutrition; oral feedings ok but probably will not be absorbed by pt. Clinical Quality Measures DVT/VTE Risk/Contraindication: Risk Factor Score Per Nursin RFS Level Per Nursing on Admit: 4+=Very High MISSY MONTEJO DO Apr 19, 2019 10:30 POS
[2019-04-19] MEDS: FAMOTIDINE 20 MG (PEPCID) TABLET PO SCH ×2 (10:57→20:29)
--- NOTE | 2019-04-19 11:03 | Progress Note ---
BRITTANY RHODES,MED STUDENT 04/19/19 1103: Progress Note Patient reports feeling alright today, but complains of some anxiety and dry mouth. She is on TPN and reports that she does not do oral feedings at this time due to poor appetite. Dr. Willett and [place] wound care nurse managing her open abdominal wound and 2 ileostomies. Wound vac was placed today and Dr. Cohen will check again on Monday. Sacral decubitus ulcer stage II and some skin breakdown on posterior scalp will require that she is moved q2hrs. She slept well last night and states pain is well controlled on Fentanyl. She was hypertensive this morning and cardiology increased her Metoprolol. Wing catheter in place. Barriers to returning home at this time include severe weakness due to being bed-bound for 2 months following extensive and repeated abdominal surgeries. Physical and occupational therapy goals are to increase strength and independence in ADLs as much as possible. BRYANNA GALLAGHER DO 04/19/197: Supervisory-Addendum Brief Verification & Attestation Participated in pt care: history, MDM, physical Personally performed: exam, history, MDM, supervision of care Care discussed with: Medical Student Procedures: n/a Results interpretation: Verified all documentation Verification and Attestation of Medical Student E/M Service A medical student performed and documented this service in my presence. I reviewed and verified all information documented by the medical student and made modifications to such information, when appropriate. I personally performed the physical exam and medical decision making. Bryanna Gallagher, Apr 19, 2019,21:17 BRITTANY RHODES,MED STUDENT Apr 19, 2019 11:03 BRYANNA NORMAN DO Apr 19, 2019 21:17 POS
--- NOTE | 2019-04-19 12:35 | Occupational Ther Daily Note ---
OT Current Status-Daily Note Subjective Pt alert, lying in bed. Pt agrees to therapy. Pt states that she hurts everywhere, but not rated. Mental Status/Objective Patient Orientation: Person, Place, Time, Situation Attachments: Colostomy/Ileostomy (2), Drains (wound vac) ADL-Treatment Co-treat with PT, skills of 2 clinicians required due to pt's dependent mobility for transfers, bed mobility and ADLs. Pt agrees sponge bath after encouragement. Pt attempts to assist with rolling, max A x2. Max A x2 for supine <--> EOB. Assist x2 to sit EOB. Max A x2 for SPT to/from bed/recliner. Pt able to cleanse face, chest and arms. Assist to cleanse all other areas. To cleanse buttocks assist x2 to roll side to side in bed. Dependent for footwear. Pt able to use an oral swab to cleanse mouth. After therapy, pt lying in bed with call light/phone in reach. All needs met in room. Therapy Code Descriptions/Definitions Functional [place] Measure: 0=Not Assessed/NA 4=Minimal Assistance 1=Total Assistance 5=Supervision or Setup 2=Maximal Assistance 6=Modified [place] 3=Moderate Assistance 7=Complete IndependenceSCALE: Activities may be completed with or without assistive devices. 0-Oastkbzpbk-nevgtdu completes the activity by him/herself with no assistance from a helper. 5-Set-up or Clean-up Assistance-helper sets up or cleans up; patient completes activity. [place] assists only prior to or following the activity. 4-Supervision or Touching Assistance-helper provides verbal cues and/or touching/steadying and/or contact guard assistance as patient completes activity. Assistance may be provided throughout the activity or intermittently. 3-Partial/Moderate Assistance-helper does LESS THAN HALF the effort. [place] lifts, holds or supports trunk or limbs, but provides less than half the effort. 2-Substantial/Maximal Assistance-helper does MORE THAN HALF the effort. [place] lifts or holds trunk or limbs and provides more than half the effort. 8-Nzrraapcz-ksypea does ALL the effort. Patient does none of the effort to complete the activity. Or, the assistance of 2 or more helpers is required for the patient to complete the activity. If activity was not attempted, code reason: 7-Patient Refused. 9-Not Applicable-not attempted and the patient did not perform the activity before the current illness, exacerbation or injury. 10-Not Attempted due to Environmental Limitations-(lack of equipment, weather restraints, etc.). 88-Not Attempted due to Medical Conditions or Safety Concerns. Eating (QC): 88 Oral Hygiene (QC): 5 Shower/Bathe Self (QC): 1 Upper Body Dressing (QC): 7 Lower Body Dressing (QC): 7 (Footwear (QC) 2) Toileting Hygiene (QC): 88 Toilet Transfer (QC): 88 OT Short Term Goals Short Term Goals Time Frame: May 02, 2019 Eatin Oral hygiene: 4 Toileting hygiene: 3 Shower/bathe self: 3 Upper body dressin Lower body dressin Putting on/taking off footwear: 3 OT Mortar Mixer Goals Mortar Mixer Goals Time Frame: May 16, 2019 Eating (QC): 6 Oral Hygiene (QC): 6 Toileting Hygiene (QC): 5 Shower/Bathe Self (QC): 4 Upper Body Dressing (QC): 5 Lower Body Dressing (QC): 5 On/Off Footwear (QC): 5 Additional Goals: 1-Demonstrate ADL Tasks, 2-Verbalize Understanding, 3- ImproveStrength/José 1=Demonstrate adherence to instructed precautions during ADL tasks. 2=Patient will verbalize/demonstrate understanding of assistive devices/modifications for ADL. 3=Patient will improve strength/tolerance for activity to enable patient to perform ADL's. OT Education/Plan Problem List/Assessment Assessment: Decreased Activ Tolerance, Decreased Safety Aware, Decreased UE Strength, Dependent Transfers, Impaired Bed Mobility, Impaired I ADL's, Impaired Self-Care Skills Discharge Recommendations Plan/Recommendations: Continue POC Treatment Plan/Plan of Care Patient would benefit from OT for education, treatment and training to promote independence in ADL's, mobility, safety and/or upper extremity function for ADL's. Plan of Care: ADL Retraining, Functional Mobility, Group Exercise/Act as Ind, UE Funct Exercise/Act Treatment Duration: May 16, 2019 Frequency: At least 5 of 7 days/Wk (IRF) Estimated Hrs Per Day: 1.5 hours per day Agreement: Yes Rehab Potential: Fair Time/GCodes Start Time: 10:00 Stop Time: 11:00 Total Time Billed (hr/min): 60 Billed Treatment Time 1 visit-ADL 4 (60 min) GEOVANNI FLORES Apr 19, 2019 12:35 POS
--- NOTE | 2019-04-19 13:10 | ST Cognitive Linguistic Eval ---
Speech Evaluation-General Medical Diagnosis Bowel perforation s/p multiple bowel surgeries Onset Date: Feb 21, 2019 Therapy Diagnosis Therapy Diagnosis: Cognitive-communication Referral Referring Physician: Dr. Hand Medical History Pertinent Medical History: Atrial Fib, DM, HTN, Hypothroidism Reviewed History: Yes Social History Current Living Status: Children Speech PLF-Current Status Prior Level of Function Patient lived with her children and was independent for her daily needs prior to her illness. Subjective Patient was compliant with the cognitive assessment. Language Eval: Auditory Comprehends Simple Yes/No Ques: Functional Indent/Objects Multiple Guzman: Functional Ident/Pics in Multiple Guzman: Functional Follows 1-Step Commands: Functional Follows Complex Directions: Mild Follows General Conversations: Mild Language Eval: Verbal Language Completes Spontaneous Greeting: Functional Produces Auto, Serial Info: Functional Imitates Simple Words/Phrases: Functional Word Finding: Mild Requests Basic Needs: Functional States Basic Personal Info: Functional Expresses Complex Ideas: Mild Objective Cognitive Domain Attention: WNL Memory: Mild Problem Solving: Mild Executive Functions: Mild Visuospatial Skills: WNL Composite Severity Rating: Mild Clock Drawing Severity Rating: Mild Objective Formal/Standardized Tests [facility] Status ([facility]) Results 15/30, Moderate dementia level of function Oral Motor/Speech Production Within Normal Limits Impression Patient is a 73 year old female who has been seriously ill with several abdominal surgeries. Patient was intubated for weeks with recent extubation. Patient receives her nutrition/hydration via TPN. Patient was given the SLUMS at bedside with a score of 15/30 obtained. Patient will receive skilled cognitive therapy due to her moderate dementia range of function. Speech Patient Assess Expression of Ideas/Wants: Exhibits (3) Understanding Verbal Content: Usually Understands (3) Brief Interview-Mental Status: Yes Repetition of Three Words: Three (3) Temporal Orientation: Year: Correct (3) Temporal Orientation: Month: Accurate within 5 days(2) Temporal Orientation: Day: Correct (1) Recall : Wear to say "Sock": Yes,after cueing (1) Recall : Color: No, could not recall (0) Recall : Bed: No, could not recall (0) Memory/Recall Ability: Current season, That he or she is in a hsp/hsp unit Speech Short Term Goals Short Term Goals Short Term Goals 1) Patient will complete memory tasks related to her daily needs at 90% or greater with minimal cues. 2) Patient will complete problem solving tasks related to her daily needs at 90% or greater with minimal cues. 3) Patient will complete safety awareness tasks related to her daily needs at 90% or greater with minimal cues. Speech Journalism Intern Goals Jail Goals Patient will improve cognitive-communication necessary for safety and daily living tasks with minimal assist. Speech-Plan Patient/Family Goals Patient/Family Goals: Patient's plan upon discharge will be determined by her medical status/needs. Treatment Plan Speech Therapy Treatment Plan: Continue Plan of Care Patient will receive skilled cognitive therapy. Treatment Duration: May 03, 2019 Frequency: 5 times per week Estimated Hrs Per Day: .5 hour per day Rehab Potential: Fair Barriers to Learning: Patient has moderate dementia level of function Pt/Family Agrees to Plan: Yes Safety Risks/Education Teaching Recipient: Patient Teaching Methods: Discussion Response to Teaching: Verbalize Understanding Education Topics Provided: Safety within her room and communication of wants/needs Time Speech Therapy Time In: 09:00 Speech Therapy Time Out: 09:15 Total Billed Time: 15 Billed Treatment Time 1, JAYYNDBUCKY Mckeon Apr 19, 2019 13:10 POS
--- NOTE | 2019-04-19 13:40 | Physical Therapy Daily Note ---
PT Daily Note-Current Subjective Pt agreeable to PT session. Pain Numeric Pain Scale: 4 Comment: all over Appearance Pt in bed awake and alert upon arrival. Co tx with OT. Wounds back of head, sacral, abdominal. Mouth very dry and pt requesting ice chips throughout tx session. At end of session pt in bed with call light, phone and bedside table within reach. Mental Status Patient Orientation: Person, Eyes Open Attachments: Colostomy/Ileostomy (2), Oxygen, Drains, Wing Catheter, Other-See Comments (wound vac) Transfers SCALE: Activities may be completed with or without assistive devices. 0-Xfkivwxzny-dyxjhff completes the activity by him/herself with no assistance from a helper. 5-Set-up or Clean-up Assistance-helper sets up or cleans up; patient completes activity. [place] assists only prior to or following the activity. 4-Supervision or Touching Assistance-helper provides verbal cues and/or touching/steadying and/or contact guard assistance as patient completes activity. Assistance may be provided throughout the activity or intermittently. 3-Partial/Moderate Assistance-helper does LESS THAN HALF the effort. [place] lifts, holds or supports trunk or limbs, but provides less than half the effort. 2-Substantial/Maximal Assistance-helper does MORE THAN HALF the effort. [place] lifts or holds trunk or limbs and provides more than half the effort. 2-Xntwbbjtt-gnznzi does ALL the effort. Patient does none of the effort to complete the activity. Or, the assistance of 2 or more helpers is required for the patient to complete the activity. If activity was not attempted, code reason: 7-Patient Refused. 9-Not Applicable-not attempted and the patient did not perform the activity before the current illness, exacerbation or injury. 10-Not Attempted due to Environmental Limitations-(lack of equipment, weather restraints, etc.). 88-Not Attempted due to Medical Conditions or Safety Concerns. Roll Left & Right (QC): 2 Sit to Lying (QC): 2 Lying to Sitting/Side of Bed(Q: 1 Sit to Stand (QC): 1 Chair/Gwo-oi-Irifp Xfer(QC): 1 2 person assist, stand pivot transfer bed to and from recliner, pt unable to assist, recommend glenroy lift vs sit stand machine due to pt's wounds Exercises Supine Ex: Ankle pumps (20), Heel Slides (20), Straight leg raise (20, AAROM), Hip abd/add (20, AAROM) Seated Therapy Exercises: Ankle pumps (20), Long arc quads (20) easily fatigues, rest breaks required Treatments bed mobility, strength, transfer, functional mobility, activity tolerance Co-treat with OT, skills of 2 clinicians required due to pt's dependent mobility for transfers, bed mobility and ADLs. Pt agrees sponge bath after encouragement. Pt attempts to assist with rolling, max A x2. Max A x2 for supine <--> EOB. Assist x2 to sit EOB. Max A x2 for SPT to/from bed/recliner. Pt able to cleanse face, chest and arms. Assist to cleanse all other areas. To cleanse buttocks assist x2 to roll side to side in bed. Dependent for footwear. Pt able to use an oral swab to cleanse mouth. Pt able to follow inst for LE e x's but with decreased mobility, AAROM provided to increase range. After therapy, pt lying in bed with call light/phone in reach. All needs met in room. Assessment Co-treat with OT, skills of 2 clinicians required due to pt's dependent mobility for transfers, bed mobility and ADLs PT Short Term Goals Short Term Goals Time Frame: Apr 25, 2019 Roll Left & Right: 3 (mod A) Sit to lyin (modA) Lying to sitting on side of be: 3 (modA) Sit to stand: 3 (modA) Chair/nde-jq-wukxi transfer: 3 (modA) PT Grocery Manager Goals Intermediate Goals PT Grocery Manager Goals Time Frame: May 09, 2019 Roll Left & Right (QC): 3 (Chet) Sit to Lying (QC): 3 (Chet) Lying-Sitting on Side/Bed(QC): 3 (Chet) Sit to Stand (QC): 3 (Chet) Chair/Yld-pa-Uthwi Xfer(QC): 3 (Chet) Toilet Transfer (QC): 3 (Chet) Car Transfer (QC): 3 (Chet) Does the Patient Walk: No and Walking Goal NOT indicated Walk 10 feet (QC): 88 Walk 50ft with 2 Turns (QC): 88 Walk 150 ft (QC): 88 Walking 10ft on Uneven Surface: 88 1 Step (curb) (QC): 88 4 Steps (QC): 88 12 Steps (QC): 88 Picking up an Object (QC): 88 Does the Pt use WC or Scooter?: Yes Wheel 50 feet with 2 turns (QC: 4 (SBA) Type: Manual Wheel 150 feet: 4 (SBA) Type: Manual PT Plan Treatment/Plan Treatment Plan: Continue Plan of Care Treatment Plan: Bed Mobility, Concurrent Therapy, Education, Functional Activity José, Functional Strength, Group Therapy, Gait, Safety, Therapeutic Exercise, Transfers Treatment Duration: May 09, 2019 Frequency: At least 5 of 7 days/Wk (IRF) Estimated Hrs Per Day: 1.5 hours per day Patient and/or Family Agrees t: Yes Safety Risks/Education Patient Education: Transfer Techniques Teaching Recipient: Patient Teaching Methods: Discussion Response to Teaching: Verbalize Understanding Time/GCodes Time In: 1000 Time Out: 1100 Total Billed Treatment Time: 60 Total Billed Treatment 1 visit, FA x45, EX x15 RYLEE HOWE EVENING SITTER Apr 19, 2019 13:40 POS
--- NOTE | 2019-04-19 14:54 | Consultation-Cardiology ---
HPI-Cardiology Cardiology Consultation: Date of Consultation 04/19/19 Time Seen by a Provider: 15:20 Date of Admission 04-18-19 Attending Physician Bryanna Hand DO Admitting Physician Jerardo Simmons MD Consulting Physician Wesley Galeano MD Primary Supervisor Transferring And Boxing: Dr. [place] HPI: Chief Complaint: PAF Ms. Samson is a 73 year old female who underwent several abdominal surgeries at this hospital in March. She was subsequently transferred to [place] for r ecovery. She has transferred back to IRU from [place]. She is currently only taking ice chips by mouth. She reports considerable weakness and fatigue. She denies any c/o CP, palpitations. She feels her breathing is improving. Occ prod cough. Review of Systems-Cardiology Review of Systems Constitutional: No chills, No fever; malaise Eyes: No vision change Ears/Nose/Throat: No epistaxis, No recent hearing loss Respiratory: no symptoms reported Cardiovascular: no symptoms reported Gastrointestinal: As described under HPI Genitourinary: other (urinary catheter in place) Musculoskeletal: no symptoms reported Skin: other (multiple bruises); No rash on exposed areas, No ulcerations on exposed areas Psychiatric/Neurological: No seizure, No focal weakness, No syncope Hematologic: No bleeding abnormalities All Other Systems Reviewed Negative Unless Noted: Yes EFH-Ynogqu-Gndanp Hx Patient Social History Marrital Status: Employed/Student: retired ([employer]) Alcohol Use: Denies Use Recreational Drug Use: No Smoking Status: Former Smoker Former smoker/When Quit: Jul 07, 1962 Type Used: Cigarettes 2nd Hand Smoke Exposure: No Recent Foreign Travel: No Recent Infectious Disease Expo: No Hospitalization with Isolation: Denies Physical Abuse Screen: No Sexual Abuse: No Immunizations Up To Date Tetanus Booster (TDap): Unknown Date of Pneumonia Vaccine: Jan 06, 2015 Date of Influenza Vaccine: Feb 10, 2019 Past Medical History PMH As described under Assessment. Family Medical History Family Medical History: She reports her father had h/o CAD diagnosed in his 60's. Mother had h/o CVA. Family History: Cancer 03 FATHER, , Onset:60 years & older 03 MOTHER, , Onset:60 years & older 09 BROTHER, , Onset:60 years & older 09 BROTHER, , Onset:60 years & older 09 BROTHER, Onset:60 years & older 09 SISTER, , Onset:60 years & older Cancer of colon 09 BROTHER, , Onset:60 years & older Dementia 09 SISTER, Onset:60 years & older Family history: Diabetes mellitus 09 SISTER, , Onset:60 years & older Heart disease 03 FATHER, , Onset:60 years & older 09 SISTER, , Onset:60 years & older History of - respiratory disease 09 BROTHER, Onset:60 years & older Prostate cancer 09 BROTHER, Onset:60 years & older Stroke 03 MOTHER, , Onset:50's - 60 Allergies and Home Medications Allergies Coded Allergies: levofloxacin (Verified Adverse Reaction, Mild, RASH, 07/06/12) amoxicillin (Unverified Adverse Reaction, Unknown, 05/28/14) YEAST INFECTION latex (Unverified Adverse Reaction, Unknown, 04/18/18) Home Medications Allopurinol 300 Mg Tablet, 300 MG PO DAILY, (Reported) Amlodipine Besylate 5 Mg Tablet, 5 MG PO DAILY, (Reported) Aspirin 81 Mg Tablet.dr, 81 MG PO DAILY, (Reported) Bisoprolol Fumarate 5 Mg Tablet, 5 MG PO DAILY, (Reported) Insulin Aspart 300 Units/3 Ml Solution, 10 UNITS SC 0800,1200, (Reported) Insulin Aspart 300 Units/3 Ml Solution, 15 UNITS SQ 1800, (Reported) Insulin Glargine,Hum.rec.anlog 100 Unit/1 Ml Insuln.pen, 50 UNITS SC HS, (Reported) Losartan Potassium 100 Mg Tablet, 100 MG PO DAILY, (Reported) Multivitamin 1 Each Tablet, 1 TAB PO DAILY, (Reported) [place] 3 Polyunsat Fatty Acids 1,000 Mg Cap, 1,000 MG PO DAILY, (Reported) Vitamin E Acetate 400 Unit Capsule, 400 UNIT PO DAILY, (Reported) Patient Home Medication List Home Medication List Reviewed: Yes Physical Exam-Cardiology Physical Exam Vital Signs/I&O 04/23/19 04/23/19 04/23/19 04/23/19 06:00 07:37 09:00 09:12 Temp 36.7 Pulse 83 96 Resp 16 B/P (MAP) 135/64 (87) 149/62 (91) Pulse Ox 97 95 98 O2 Delivery Nasal Cannula Nasal Cannula Nasal Cannula Nasal Cannula O2 Flow Rate 2.00 2.00 2.00 2.00 04/23/19 04/23/19 11:50 14:38 Temp 36.8 Pulse 79 Resp 18 B/P (MAP) 117/69 (85) Pulse Ox 97 94 O2 Delivery Nasal Cannula Nasal Cannula O2 Flow Rate 2.00 2.00 04/23/19 00:00 Intake Total 1908 ml Output Total 825 ml Balance 1083 ml Capillary Refill : Constitutional: AAO x 3, well-developed, well-nourished HEENT: PERRL, hearing is well preserved, oral hygience is good Neck: No carotid bruit; carotid pulses are 2 + bilaterally Respiratory: No accessory muscle use, No respiratory distress; chest expansion is symmetric, chest is bilaterally symmetric, other (good air entry) Cardiovascular: irregularly irregular; No JVD; S1 and S2 Gastrointestinal: other (RUQ ostomy, LLQ ostomy, wound vac) Extremities: no lower extremity edema bilateral Neurologic/Psychiatric: grossly intact (moves extremities) Data Review Labs Laboratory Tests 04/22/19 16:55: Glucometer 118H 04/23/19 00:09: Glucometer 233H 04/23/19 05:15: Sodium Level 143, Potassium Level 4.8, Chloride Level 117H, Carbon Dioxide Level 18L, Anion Gap 8, Blood Urea Nitrogen 48H, Creatinine 0.68, Estimat Glomerular Filtration Rate > 60, BUN/Creatinine Ratio 71, Glucose Level 192H, Calcium Level 8.4L, Corrected Calcium 9.9, Phosphorus Level 3.3, Magnesium Level 1.7, Total Bilirubin 3.9H, Aspartate Amino Transf (AST/SGOT) 77H, Alanine Aminotransferase (ALT/SGPT) 73H, Alkaline Phosphatase 150H, Total Protein 6.3L, Albumin 2.1L 04/23/19 05:16: Glucometer 191H 04/23/19 11:44: Glucometer 174H A/P-Cardiology Assessment/Admission Diagnosis H/O multiple abdominal surgeries, had bowel resection and diverting ileostomy, last procedure was done on March 13, 2019 - followed by surgical services - recent transfer from [place] on 04-18-19 H/O Paroxysmal atrial fibrillation - Lovenox Labile hypertension H/O acute renal insufficiency in the past Coronary artery disease - Most recent cardiac catheterization done April 2018 revealed mild ectasia in the proximal LAD with mild disease in the mid LAD, small vessel disease distally, mild ectasia in the proximal circumflex artery and 40-50 percent stenosis in the mid right coronary artery, nonobstructive disease History of colon cancer, history of colon resection and colostomy in the remote past has been in remission and followed by Dr. Branham History of hyperlipidemia Carotid artery stenosis History of thyroid nodules noted on ultrasound, followed by Dr. Branham and Dr. Simmons Diabetes mellitus Family history of coronary artery disease. Obstructive sleep apnea, intolerance to CPAP History of appendectomy, kidney stones, hysterectomy. Breast biopsy. Anemia - management per medical services Discussion and Recomendations Continue current medication regimen HR not well controlled - BB already increased - adjust as indicated BP not well controlled - adjust anti-hypertensive regimen as indicated EKG today H/O PAF - low dose Lovenox Anemia - management per medical services Management of TPN per medical services Monitor lab Replace electrolytes as indicated Further recs will be based on her hospital course We would like to thank medical services for this consult Clinical Quality Measures DVT/VTE Risk/Contraindication: Risk Factor Score Per Nursin RFS Level Per Nursing on Admit: 4+=Very High SUKHWINDER LINK Apr 19, 2019 14:53 POS
--- NOTE | 2019-04-19 15:11 | NUR ---
Admission Initial assessment completed with patient who admitted to ARU for Critical Illness Myopathy. Patient has been bedbound/hospitalized since late February with multiple surgeries/procedures, colostomy, catheter, wound vac, TPN for malnutrition, intubation, sacral and head decubitus. Patient transferred to us from [facility]. Prior to this siege of illness, she was IADL and did not need any DME. Her daughter Jeni Samson resides with her and is her DPOA HC. PCP: Jerardo Simmons PHARMACY: [facility] INSURED: Medicare, Blue Cross supplement. Patient is hopeful to avoid setbacks on her continued healthcare journey. Willing, motivated, understandably limited. Introduced Weekly Team Conference, patient understands she will be reviewed next Monday and updated of any proposed target discharge information.
--- NOTE | 2019-04-19 15:49 | Therapy Group Daily Note ---
Therapy Daily Group Note Patient Education Topic Other List Below (PAIN) Exercises LE Seated Exercise, UE Exercise Session Ratio (pt:therapist): 3:1 Goal of Session: UE/LE Strengthing, Other (list) (pain) Goal Met for this Session: Yes Pt Benefit of Group: Contributions to Others, Increased Functional Strength, Improved Cognition, Recognition of Peers, Socialization Other/Notes Pt was transported via recliner to [facility] for OT/PT group. Group consisted of introductions (name, place, life challenges), socialization, UE/LE seated exercises and education on pain. Pt introduced self appropriately and listened to peers. Pt listened attentively though did not contribute to conversations. Pt did acknowledge understanding of topics by gestures in affirmative. Pt would complete minimum of exercises due to decreased activity tolerance. After therapy, pt lying in bed with call light/phone reach. All needs met in room. Start Time: 13:00 Stop Time: 14:15 Total Billed Treatment Time: 75 Total Billed Treatment 1-GRP GEOVANNI FLORES Apr 19, 2019 15:49 POS
[2019-04-19] MEDS ORDERED: SODIUM ACETATE IV SCH ×11 (17:00)
[2019-04-19] MEDS ORDERED: [UNRECOGNIZED DRUG - OTHER] IV SCH ×11 (17:00)
[2019-04-19] MEDS ORDERED: SODIUM CHLORIDE IV SCH ×11 (17:00)
--- NOTE | 2019-04-19 18:00 | NUR ---
DR. ROMO HERE TO SEE PATIENT. BP AND HR MUCH IMPROVED SINCE LOPRESSOR DOSE INCREASED. EKG WAS DONE AND SEEN BY DR. ROMO. SINCE PATIENT DOES NOT LIKE TO TURN AND HAS SACRAL PRESSURE SORE, HAS BEEN PLACED ON BED THAT TURNS PATIENT. WILL OCCASIONALLY AGREE TO BE TURNED. HAD A NICE NAP THIS AFTERNOON. WOUND VAC INTACT.
[2019-04-19 18:23] VITALS: BP 129/65
[2019-04-19] MEDS: ENOXAPARIN 40 MG/0.4 ML (LOVENOX) SYR SC SCH (18:52)
--- NOTE | 2019-04-19 19:09 | Consultation-Cardiology ---
HPI-Cardiology Cardiology Consultation: Date of Consultation 04/19/19 Time Seen by a Provider: 18:30 Date of Admission Attending Physician Bryanna Hand DO Admitting Physician Jerardo Simmons MD Consulting Physician BETH ROMO MD, MA, FACP, FACC, FSCAI, CCDS Primary pulp press tender: Dr [place] HPI: Chief Complaint: Reason for consultation: Rapid heart rate and hypertension PI Ms. Samson is a 73 year old female who underwent several abdominal surgeries at [facility] in March. She was subsequently transferred to [place] for recovery. She has transferred back to IRU from [place]. She is currently only taking ice chips by mouth. She reports considerable weakness and fatigue. She denies any c/o CP, palpitations. She feels her breathing is improving. Occ prod cough. Review of Systems-Cardiology Review of Systems Constitutional: malaise Eyes: No vision change Ears/Nose/Throat: No epistaxis, No recent hearing loss Respiratory: no symptoms reported Cardiovascular: no symptoms reported Gastrointestinal: As described under HPI Genitourinary: other Musculoskeletal: no symptoms reported Skin: other Psychiatric/Neurological: No seizure, No focal weakness, No syncope Hematologic: No bleeding abnormalities All Other Systems Reviewed Negative Unless Noted: Yes [id number] Hx Patient Social History Marrital Status: Employed/Student: retired ([id number]) Alcohol Use: Denies Use Recreational Drug Use: No Smoking Status: Former Smoker Former smoker/When Quit: Jul 07, 1962 Type Used: Cigarettes 2nd Hand Smoke Exposure: No Recent Foreign Travel: No Recent Infectious Disease Expo: No Hospitalization with Isolation: Denies Physical Abuse Screen: No Sexual Abuse: No Immunizations Up To Date Tetanus Booster (TDap): Unknown Date of Pneumonia Vaccine: Jan 06, 2015 Date of Influenza Vaccine: Feb 10, 2019 Past Medical History PMH As described under Assessment. Family Medical History Family Medical History: She reports her father had h/o CAD diagnosed in his 60's. Mother had h/o CVA. Family History: Cancer 03 FATHER, , Onset:60 years & older 03 MOTHER, , Onset:60 years & older 09 BROTHER, , Onset:60 years & older 09 BROTHER, , Onset:60 years & older 09 BROTHER, Onset:60 years & older 09 SISTER, , Onset:60 years & older Cancer of colon 09 BROTHER, , Onset:60 years & older Dementia 09 SISTER, Onset:60 years & older Family history: Diabetes mellitus 09 SISTER, , Onset:60 years & older Heart disease 03 FATHER, , Onset:60 years & older 09 SISTER, , Onset:60 years & older History of - respiratory disease 09 BROTHER, Onset:60 years & older Prostate cancer 09 BROTHER, Onset:60 years & older Stroke 03 MOTHER, , Onset:50's - 60 Allergies and Home Medications Allergies Coded Allergies: levofloxacin (Verified Adverse Reaction, Mild, RASH, 07/06/12) amoxicillin (Unverified Adverse Reaction, Unknown, 05/28/14) YEAST INFECTION latex (Unverified Adverse Reaction, Unknown, 04/18/18) Home Medications Albuterol Sulfate 2.5 Mg/3 Ml Vial.neb, 2.5 MG NEB Q4H PRN for SHORTNESS OF BREATH, (Reported) Benzocaine/Menthol 1 Each Lozenge, 1 LOZENGE MM Q4H PRN for SORE THROAT, (Reported) Clonidine 1 Each Patch.tdwk, 0.1 MG TD Q7D, (Reported) START DATE 03-26-19 Dextrose 33 Gm Gel.packet, 31 GM PO UD PRN for LOW BLOOD GLUCOSE, (Reported) MAY GIVE IF BG </= 70, PATIENT IS ALERT AND IS NOT NPO Enalapril Maleate 5 Mg Tablet, 5 MG PEG DAILY, (Reported) Enoxaparin Sodium 40 Mg/0.4 Ml Syringe, 40 MG SQ 1700, (Reported) Fentanyl 1 Each Patch.td72, 25 MCG TD Q72H, (Reported) Fentanyl Citrate/Pf 50 Mcg/1 Ml Vial, 50 MCG IV Q4H PRN for PAIN-SEVERE (8-10), (Reported) Fluticasone Propionate 16 Gm [place].susp, 1 SPRAY NS DAILY, (Reported) Glucagon,Human Recombinant 1 Mg/Kit Soln, 1 MG IM UD PRN for BG</= 70, (Reported) IF PATIENT IS NOT ALERT AND PATIENT HAS NO IV ACCESS Hydralazine HCl 20 Mg/1 Ml Vial, 10 MG IJ Q4H PRN for SBP>160, (Reported) Hydroxyzine HCl 25 Mg Tablet, 12.5 MG PO Q8H PRN for ANXIETY, (Reported) Insulin Glargine,Hum.rec.anlog 100 Unit/1 Ml Vial, 10 UNIT SQ DAILY, (Reported) Insulin Lispro 100 Unit/1 Ml Vial, 0-14 UNIT SQ Q6H, (Reported) SLIDING SCALE A Ipratropium/Albuterol Sulfate 3 Ml Ampul.neb, 3 ML NEB Q4H, (Reported) Ipratropium/Albuterol Sulfate 3 Ml Ampul.neb, 3 ML NEB Q6H PRN for SHORTNESS OF BREATH, (Reported) Lansoprazole 30 Mg Capsule.dr, 30 MG PEG BID, (Reported) Metoprolol Tartrate 25 Mg Tablet, 25 MG PEG BID, (Reported) Metoprolol Tartrate 5 Mg/5 Ml Vial, 7.5 MG INJ Q6H PRN for BP>140, (Reported) HOLD FOR HEART RATE LESS THAN 70 Morphine Sulfate 4 Mg/1 Ml Vial, 2 MG IV Q4H PRN for PAIN-SEVERE (8-10), (Reported) Nystatin 100,000 Unit/1 Ml Oral.susp, 500,000 UNIT PO QID, (Reported) SWISH AND SWALLOW Ondansetron HCl 2 Mg/1 Ml Vial, 4 MG IV Q6H PRN for NAUSEA/VOMITING-1ST LINE, (Reported) Oxybutynin Chloride 5 Mg Tablet, 5 MG PO BID, (Reported) Sertraline HCl 50 Mg Tablet, 50 MG PO DAILY, (Reported) Sodium Chloride 30 Ml [place], 2 SPRAYS NS Q2H PRN for CONGESTION, (Reported) [Magic Mouthwash] , 5 ML PO QID, (Reported) SWISH AND SWALLOW Patient Home Medication List Home Medication List Reviewed: Yes Physical Exam-Cardiology Physical Exam Vital Signs/I&O 04/19/19 04/19/19 09:00 18:23 Temp 36.6 Pulse 77 Resp 18 B/P (MAP) 129/65 (86) Pulse Ox 96 O2 Delivery Nasal Cannula Nasal Cannula O2 Flow Rate 2.00 04/19/19 00:00 Intake Total 20 ml Output Total 350 ml Balance -330 ml Capillary Refill : Constitutional: AAO x 3, well-developed, well-nourished HEENT: PERRL, hearing is well preserved, oral hygience is good Neck: carotid pulses are 2 + bilaterally Respiratory: chest expansion is symmetric, chest is bilaterally symmetric, other Cardiovascular: irregularly irregular, S1 and S2 Gastrointestinal: other Extremities: no lower extremity edema bilateral Neurologic/Psychiatric: grossly intact Data Review Labs Laboratory Tests 04/18/19 19:16: Glucometer 135H 04/19/19 00:46: Glucometer 139H 04/19/19 05:30: White Blood Count 9.5, Red Blood Count 2.72L, Hemoglobin 8.4L, Hematocrit 28L, Mean Corpuscular Volume 104H, Mean Corpuscular Hemoglobin 31, Mean Corpuscular Hemoglobin Concent 30L, Red Cell Distribution Width 18.7H, Platelet Count 240, Mean Platelet Volume 10.5H, Neutrophils (%) (Auto) 82H, Lymphocytes (%) (Auto) 11L, Monocytes (%) (Auto) 7, Eosinophils (%) (Auto) 1, Basophils (%) (Auto) 0, Neutrophils # (Auto) 7.8, Lymphocytes # (Auto) 1.0, Monocytes # (Auto) 0.6, Eosinophils # (Auto) 0.1, Basophils # (Auto) 0.0, Sodium Level 146H, Potassium Level 4.3, Chloride Level 114H, Carbon Dioxide Level 24, Anion Gap 8, Blood Urea Nitrogen 54H, Creatinine 0.65, Estimat Glomerular Filtration Rate > 60, BUN/Creatinine Ratio 83, Glucose Level 160H, Calcium Level 8.4L, Corrected Calcium 10.1, Phosphorus Level 4.7, Magnesium Level 1.7, Total Bilirubin 3.2H, Aspartate Amino Transf (AST/SGOT) 80H, Alanine Aminotransferase (ALT/SGPT) 57H, Alkaline Phosphatase 134, Total Protein 5.6L, Albumin 1.9L, Triglycerides Level 224H 04/19/19 05:33: Glucometer 165H 04/19/19 13:34: Glucometer 151H 04/19/19 18:06: Glucometer 94 A/P-Cardiology Assessment/Admission Diagnosis H/O multiple abdominal surgeries, had bowel resection and diverting ileostomy, last procedure was done on March 13, 2019 - followed by surgical services - recent transfer from [place] on 04-18-19 H/O Paroxysmal atrial fibrillation Labile hypertension H/O acute renal insufficiency in the past Coronary artery disease - Most recent cardiac catheterization done April 2018 revealed mild ectasia in the proximal LAD with mild disease in the mid LAD, small vessel disease distally, mild ectasia in the proximal circumflex artery and 40-50 percent stenosis in the mid right coronary artery, nonobstructive disease History of colon cancer, history of colon resection and colostomy in the past, followed by Dr. Branham History of hyperlipidemia Carotid artery stenosis History of thyroid nodules noted on ultrasound, followed by Dr. Branham and Dr. Simmons Diabetes mellitus Family history of coronary artery disease. Obstructive sleep apnea, intolerance to CPAP History of appendectomy, kidney stones, hysterectomy. Breast biopsy. Anemia - management per Dr Hand Discussion and Recomendations * Increase bb for better heart rate and bp control * EKG today * H/O PAF - please resume oral anticoag when ok from Med and Surg standpoint, be ginning with low dose and advancing to full dosee * Anemia - management per Med Svce * Management of TPN per Med and Surg Svces * Monitor lab * Replace electrolytes as indicated * Further recs will be based on her hospital course * We would like to thank Medical Services for this consult Clinical Quality Measures DVT/VTE Risk/Contraindication: Risk Factor Score Per Nursin RFS Level Per Nursing on Admit: 4+=Very High BETH ROMO MD FACP FAC CCDS Apr 19, 2019 19:09 POS
[2019-04-19] MEDS: meTOprolol TARTRATE 50 MG (LOPRESSOR) TAB PO SCH (20:29)
--- NOTE | 2019-04-19 21:22 | Individualized Plan of Care ---
Individualized Plan of Care Rehab Nursing IPOC Order Admission Date Apr 18, 2019 at 14:30 Current Orders Orders Admission Order(Inpt,Obs,Sdc) (04/18/19 12:00) Vital Signs: Per Unit Policy ( 08,16,00 (04/18/19 12:00) Giorgio Hopkins 09,21 (04/18/19 12:00) Sequential Compression Device Q4H (04/18/19 12:00) Inspector Set Up And Lay Out-Inpt Rehab Con (04/18/19 12:00) Rehab Nursing Orders-Ipoc (04/18/19 12:00) Physical Therapy Rehab Orders (04/18/19 12:00) Occupational Therapy Rehab Ord (04/18/19 12:00) Speech Therapy Rehab Orders (04/18/19 12:00) Cbc With Automated Diff (04/19/19 06:00) Comprehensive Metabolic Panel (04/19/19 06:00) Intake & Output 06,14,22 (04/18/19 12:00) Precautions (Aru) (04/18/19 12:00) Weekly Weight WEEK (04/18/19 12:00) Rehab-Intensity Of Therapy (04/18/19 12:00) Initiate Admission Nursing Pro .admission (04/18/19 12:00) Ondansetron Injection (Zofran Injectio (04/18/19 12:00) Nothing By Mouth (04/18/19 Dinner) Iv Misc (Tpn) (04/18/19 12:00) Dietary Consult (04/18/19 12:00) Initiate Admission Nursing Pro .admission (04/18/19 12:00) Consult Physician (04/18/19 14:16) Admission Arrival Bed Request (04/18/19 14:35) Accucheck Q6hr Q6HR (04/18/19 16:28) Albuterol Pre-Mix Nebs (Rt) (Proventil (04/18/19 17:00) Enalapril Tablet (Vasotec Tablet) (04/19/19 09:00) Fluticasone Nasal Hel[place] (Flonase Nasal S (04/19/19 09:00) Hydralazine Injection (Apresoline Inject (04/18/19 17:00) Albuterol/Ipra Inhalation Soln (Duoneb I (04/18/19 17:00) Albuterol/Ipra Inhalation Soln (Duoneb I (04/18/19 17:00) Metoprolol Tartrate (Ir) Tab (Lopressor (04/18/19 21:00) Sertraline Tablet (Zoloft Tablet) (04/19/19 09:00) (Nf) Benzocaine/Menthol (Cepacol Sore Th (04/18/19 17:00) (Nf) Dextrose (Glucose) (04/18/19 17:00) (Nf) Enoxaparin Sodium (Lovenox) (04/18/19 17:00) (Nf) Fentanyl Citrate/Pf (Fentanyl 50 Mc (04/18/19 17:00) (Nf) Hydroxyzine Hcl (04/18/19 17:00) (Nf) Insulin Glargine,Hum.Rec.Anlog (Kulwinder (04/19/19 09:00) (Nf) Lansoprazole (04/18/19 21:00) (Nf) Metoprolol Tartrate (04/18/19 17:00) (Nf) Morphine Sulfate (04/18/19 17:00) (Nf) Nystatin (04/18/19 17:00) (Nf) Ondansetron Hcl (04/18/19 17:00) (Nf) Oxybutynin Chloride (04/18/19 21:00) (Nf) Sodium Chloride (Saline Nasal Helena (04/18/19 17:00) (Nf) [Magic Mouthwash] (04/18/19 17:00) Wound V.A.C Application Ord/In .application order (04/18/19 16:49) Wound V.A.C Nursing Assessment 18 (04/18/19 16:49) Wound V.A.C Q4hr Inspection-St Q4HR (04/18/19 16:49) Aa 4.25% W/Lytes In D5w Iv Shonda (Clinimix (04/18/19 17:00) Albuterol/Ipra Inhalation Soln (Duoneb I (04/18/19 18:00) Comprehensive Metabolic Panel (04/20/19 06:00) Comprehensive Metabolic Panel (04/21/19 06:00) Comprehensive Metabolic Panel (04/25/19 06:00) Prealbumin (04/25/19 06:00) Magnesium (04/19/19 06:00) Magnesium (04/20/19 06:00) Magnesium (04/21/19 06:00) Magnesium (04/25/19 06:00) Phosphorus (04/19/19 06:00) Phosphorus (04/20/19 06:00) Phosphorus (04/21/19 06:00) Phosphorus (04/25/19 06:00) Triglycerides (04/19/19 06:00) Triglycerides (04/25/19 06:00) Cbc No Diff (04/25/19 06:00) Accucheck Q6hr Q6HR (04/18/19 17:00) Accucheck Daily DAILY (04/18/19 17:00) Vital Signs: Per Unit Policy ( 08,16,00 (04/18/19 17:00) Intake & Output 06,14,22 (04/18/19 17:00) Daily Weight 06 (04/18/19 17:00) Notify Physician: (04/18/19 17:00) Phenol/Na Phenolate Lozenge (Chlorasepti (04/18/19 17:15) Fentanyl Injection (Sublimaze Injection (04/18/19 17:30) Enoxaparin Injection (Lovenox Injection) (04/18/19 17:30) Nystatin Oral Suspension (Mycostatin O (04/18/19 21:00) Ondansetron Injection (Zofran Injectio (04/18/19 17:30) Sodium Chloride Flush (Catheter Flush Sy (04/18/19 17:30) Sodium Chloride Flush (Catheter Flush Sy (04/18/19 22:00) Saline Nasal Hel[place] (Milburn Nasal Helena) (04/18/19 17:30) Hydroxyzine Cap/Tab (Vistaril) (04/18/19 17:30) Oxybutynin Tablet (Ditropan Tablet) (04/18/19 21:00) Metoprolol Tartrate Injection (Lopressor (04/18/19 17:30) Water, Sterile For Irrigation (Sterile W (04/18/19 21:00) Dextrose 40% Oral Gel (Glutose 15 Oral G (04/18/19 18:00) Lidocaine 2% Viscous 100 Ml (Xylocaine V (04/18/19 21:00) Ambulate 08,12,20 (04/18/19 18:20) Sequential Compression Device Q4H (04/18/19 18:20) Dvt/Vte Risk - Notifiy Physici Q4H (04/18/19 18:20) Fentanyl Patch (Duragesic Patch) (04/20/19 09:00) Patch Removal (Patch Removal) (04/20/19 08:59) (Nf) Clonidine (Catapres-Tts 1 Patch) (04/23/19 09:00) Nursing Communication (Order) (04/18/19 18:36) Patch Removal (Patch Removal) (04/23/19 08:59) Nothing By Mouth (04/19/19 Breakfast) Ice Chips As Permitted (04/18/19 20:14) Famotidine Tablet (Pepcid Tablet) (04/19/19 09:45) Consult Cardiology (04/19/19 10:04) Metoprolol Tartrate (Ir) Tab (Lopressor (04/19/19 21:00) Metoprolol Tartrate (Ir) Tab (Lopressor (04/19/19 10:15) Sodium Chloride 14.6% Inj (Sodium Chlori (04/19/19 17:00) Patient Visit (04/19/19 ) Functional Activities, Ea 15 (04/19/19 ) Exercise Therap, Ea 15 Min (04/19/19 ) Patient Visit (04/19/19 ) Speech Sound Lang Comp (04/19/19 ) Patient Visit (04/19/19 ) Ekg Tracing (04/19/19 16:12) Picc Dressing/Securement Devic Q7D (04/19/19 18:58) Picc Cap(S) Change .Q3days (04/19/19 18:58) Iron Test (Fe) (04/19/19 21:19) Apixaban Tablet (Eliquis Tablet) (04/20/19 09:00) Insulin Aspart (Novolog) (Novolog (Charg (04/20/19 06:00) Rehab Nursing Orders: Ongoing Assess. of Cognitive Status, Ongoing Assess. of Function Status, Bladder Management, Bladder Scan, Bladder Training, Bowel Management, Bowel Training, Disease Management & Educaiton, DVT Prophylaxis, Fall Prevention, Fluid/Electrolyte/Nutrition Mgmt, Infection Prevention, Medication Management & Education, Management of Risks & Complications, Management of Skin Intergrity, Nutrition Management, Pain Management, Patient/Family Support, Safety Management, Swallow Precautions Intensity of Therapy to be met Patient to be seen: Min.3h per day/5 of 7d PT IPOC Problem List: Activity Tolerance, Functional Strength, Safety, Balance, Gait, Transfer, Bed Mobility, ROM Treatment Plan: Continue Plan of Care Bed Mobility, Concurrent Therapy, Education, Functional Activity José, Functional Strength, Group Therapy, Gait, Safety, Therapeutic Exercise, Transfers Treatment Duration: May 09, 2019 Frequency: At least 5 of 7 days/Wk (IRF) Estimated Hrs Per Day: 1.5 hours per day OT IPOC Problems: Decreased Activ Tolerance, Decreased Safety Aware, Decreased UE Strength, Dependent Transfers, Impaired Bed Mobility, Impaired I ADL's, Impaired Self-Care Skills OT Treatment, Training and Edu: Yes Plan of Care: ADL Retraining, Functional Mobility, Group Exercise/Act as Ind, UE Funct Exercise/Act Treatment Duration: May 16, 2019 Frequency: At least 5 of 7 days/Wk (IRF) Estimated Hrs Per Day: 1.[address] IPOC Speech Therapy Treatment Plan: Continue Plan of Care Treatment Duration: May 03, 2019 Frequency: 5 times per week Estimated Hrs Per Day: .5 hour per day Inspector Set Up And Lay Out/Case Mgmt Inspector Set Up And Lay Out/Case Managemen: Discharge Planning Dietitian/Asbestos Worker Helper Dietitian/Asbestos Worker Helper to monitor nutritional status and make changes and/or recommendations as needed and work with speech pathology on dietary upgrades as the occur. Physician IPOC Medical Issues being managed closely and that require the 24 hour availability of a physician: TPN required until oral intake is adequate and patient completely dependent on 2 person assist to mobilize complicated by dementia Medical Issues: Bowel/Bladder Function, DVT Prophylaxis, Falls Precautions, Fluid/Electrolyte/Nutrition Balance, Infection Protection, Pain Management, Wound Care Brief Synthesis of Preadmission Screen, Post-Admission Evaluation, and Therapy Evaluations: PT and OT will both work to increase strength in order to lessen the burden of caretakers while optimizing cognition to help regain independence Medical Prognosis: Fair Anticipated Length of Stay: 10 days YARON GALLAGHER DO Apr 19, 2019 21:22 POS
[2019-04-20] MEDS: hydrOXYzine (VISTARIL/ATARAX) 25 MG capsule/tablet PO PRN (02:51)
[2019-04-20] MEDS: RT-ALBUTEROL/IPRATROPIUM 3 ML (DUONEB) VIAL IH SCH ×4 (03:15→18:20)
[2019-04-20] MEDS: CATHETER FLUSH 10 ML SYR IV SCH ×3 (05:03→20:19)
[2019-04-20] MEDS: SALINE NASAL SPRAY (OCEAN) 45 ML BTL PRN (05:03)
[2019-04-20 06:03] VITALS: BP 165/72
[2019-04-20 06:06] LABS: ALANINE AMINOTRANSFERASE 71 U/L (0-55); ALBUMIN 2.1 GM/DL (3.2-4.5); ALKALINE PHOSPHATASE 139 U/L (40-136); BILIRUBIN,TOTAL 3.4 MG/DL (0.1-1.0); BUN/CREATININE RATIO 74; CALCIUM 8.6 MG/DL (8.5-10.1); CARBON DIOXIDE 24 MMOL/L (21-32); CHLORIDE 115 MMOL/L (98-107); CREATININE SERUM 0.69 MG/DL (0.60-1.30); GFR ESTIMATED > 60; GLUCOSE 277 MG/DL (70-105); MAGNESIUM 1.8 MG/DL (1.6-2.4); PHOSPHORUS 3.9 MG/DL (2.3-4.7); POTASSIUM 4.4 MMOL/L (3.6-5.0); SODIUM 147 MMOL/L (135-145); TOTAL PROTEIN 6.2 GM/DL (6.4-8.2)
[2019-04-20] MEDS: inSUlin ASPART (NovoLOG) 1 UNIT/0.01 ML (CHARGE PER UNIT) SC SCH ×4 (06:34→23:56)
[2019-04-20] MEDS: fentaNYL INJECTION 100 MCG/2 ML AMP IV PRN (06:39)
[2019-04-20] MEDS ORDERED: PANTOPRAZOLE 40 MG (PROTONIX) TAB PO SCH (09:00)
[2019-04-20] MEDS ORDERED: APIXABAN 2.5 MG (ELIQUIS) TABLET PO SCH (09:00)
[2019-04-20] MEDS: FAMOTIDINE 20 MG (PEPCID) TABLET PO SCH ×2 (09:54→20:20)
[2019-04-20] MEDS: ENALAPRIL 5 MG (VASOTEC) TAB PEG SCH (09:54)
[2019-04-20] MEDS: NYSTATIN ORAL SUSP 5 ML UDC PO SCH ×4 (09:54→20:20)
[2019-04-20] MEDS: SERTRALINE 50 MG (ZOLOFT) TABLET PO SCH (09:54)
[2019-04-20] MEDS: OXYBUTYNIN (DITROPAN) 5 MG TAB PO SCH ×2 (09:55→20:20)
[2019-04-20] MEDS: APIXABAN 2.5 MG (ELIQUIS) TABLET PO SCH ×2 (09:55→20:20)
[2019-04-20] MEDS: meTOprolol TARTRATE 50 MG (LOPRESSOR) TAB PO SCH ×2 (09:56→20:20)
--- NOTE | 2019-04-20 10:07 | NUR ---
Call to Pharmacy, spoke laya Beltran, notified that unable to obtain Duragesic patch from [facility]. Pt states that she does not have one on currently. Asked pt if she was having any pain ? States, "no, just a little cool." Pt asked for blanket to be brought up to her knees, which I did, RT in to do tx.
[2019-04-20] MEDS: FLUTICASONE NASAL SPRAY (FLONASE) 16 GM BTL NS SCH (10:09)
[2019-04-20] MEDS: VISC LIDOCAINE/ANTACID/DIPHENHYDRAMINE 1:1:1 120 ML PO SCH ×12 (10:10→20:20)
--- NOTE | 2019-04-20 10:54 | Progress Note - Cardiology ---
Cardiology SOAP Progress Note Subjective: No cp or palp or syncope or shortness of breath at rest Gen weakness and malaise Objective: I&O/Vital Signs 04/20/19 04/20/19 06:03 10:05 Temp 36.8 Pulse 81 Resp 20 B/P (MAP) 165/72 (103) Pulse Ox 97 95 O2 Delivery Nasal Cannula Nasal Cannula O2 Flow Rate 2.00 2.00 04/20/19 00:00 Intake Total 30 ml Output Total 1050 ml Balance -1020 ml Weight (Pounds): 160 Weight (Ounces): 0.0 Weight (Calculated Kilograms): [id number] Constitutional: AAO x 3, well-developed, well-nourished Respiratory: chest expansion is symmetric, chest is bilaterally symmetric, other Cardiovascular: irregularly irregular, S1 and S2 Gastrointestional: other Extremities: no lower extremity edema bilateral Neurologic/Psychiatric: grossly intact Results/Procedures: Labs Laboratory Tests 04/19/19 13:34: Glucometer 151H 04/19/19 18:06: Glucometer 94 04/20/19 00:02: Glucometer 231H 04/20/19 05:00: Sodium Level 147H, Potassium Level 4.4, Chloride Level 115H, Carbon Dioxide Level 24, Anion Gap 8, Blood Urea Nitrogen 51H, Creatinine 0.69, Estimat Glomerular Filtration Rate > 60, BUN/Creatinine Ratio 74, Glucose Level 277H, Calcium Level 8.6, Corrected Calcium 10.1, Phosphorus Level 3.9, Magnesium Level 1.8, Total Bilirubin 3.4H, Aspartate Amino Transf (AST/SGOT) 92H, Alanine Aminotransferase (ALT/SGPT) 71H, Alkaline Phosphatase 139H, Total Protein 6.2L, Albumin 2.1L 04/20/19 05:54: Glucometer 281H Laboratory Tests 04/19/19 05:30 04/20/19 05:00 A/P: Assessment: H/O multiple abdominal surgeries, had bowel resection and diverting ileostomy, last procedure was done on March 13, 2019 - followed by surgical services - recent transfer from [place] on 04-18-19 H/O Paroxysmal atrial fibrillation Labile hypertension H/O acute renal insufficiency in the past Coronary artery disease - Most recent cardiac catheterization done April 2018 revealed mild ectasia in the proximal LAD with mild disease in the mid LAD, small vessel disease distally, mild ectasia in the proximal circumflex artery and 40-50 percent stenosis in the mid right coronary artery, nonobstructive disease History of colon cancer, history of colon resection and colostomy in the past, followed by Dr. Branham History of hyperlipidemia Carotid artery stenosis History of thyroid nodules noted on ultrasound, followed by Dr. Branham and Dr. Simmons Diabetes mellitus Family history of coronary artery disease. Obstructive sleep apnea, intolerance to CPAP History of appendectomy, kidney stones, hysterectomy. Breast biopsy. Anemia - management per Dr Hand Plan: * We have increase bb * Apixaban for stroke prophylaxis * Anemia - management per Med Svce * Management of TPN per Med and Surg Svces * Monitor labs BETH ROMO MD FACP FAC CCDS Apr 20, 2019 10:54 POS
[2019-04-20 12:04] VITALS: BP 154/60
[2019-04-20] MEDS: fentaNYL PATCH 25 MCG (DURAGESIC) TD SCH (12:07)
[2019-04-20] MEDS: FENTANYL PATCH REMOVAL TP SCH (12:09)
--- NOTE | 2019-04-20 12:36 | NUR ---
Asked pt if I could put the green heel protectors on her feet ? Pt nodded her head quickly, & states, "no, they're too heavy, I can't move my feet w those on." Pt did agree to pillow placed under legs to float heels. Pt did have Duragesic patch on Rt upper arm, this was removed & wasted in sharps container, & new Duragesic applied to Lt upper abdomen, see EMAR.
--- NOTE | 2019-04-20 12:42 | PM&R Progress Note ---
Subjective HPI/CC On Admission Date Seen by Provider: Apr 20, 2019 Time Seen by Provider: 12:00 Subjective/Events-last exam Patient doing pretty well Stage II coccyx decubitus ulcer being managed by wound care No pain is reported maintain on fentanyl patch of 25 mcg Checking iron level empirically placing on Venofer Wound VAC tolerated well Vistaril given for anxiety last night Conferred with RN Check meds and labs Reviewed therapy notes Long recovery expected Review of Systems Gastrointestinal: Abdominal Pain Neurological: Confusion Objective Exam Vital Signs Vital Signs Date Time Temp Pulse Resp B/P (MAP) Pulse Ox O2 Delivery O2 Flow Rate FiO2 04/20/19 18:20 93 Nasal Cannula 2.00 04/20/19 17:31 36.8 77 16 120/61 (80) Capillary Refill : General Appearance: No Apparent Distress, Chronically ill, Cachetic, Other (pale, chronically ill) HEENT: PERRL/EOMI, Normal ENT Inspection, Pharynx Normal Neck: Full Range of Motion, Normal Inspection, Non Tender, Supple, Carotid Bruit Respiratory: Chest Non Tender, Lungs Clear, Normal Breath Sounds, No Accessory Muscle Use, No Respiratory Distress Cardiovascular: Regular Rate, Rhythm, No Edema, No Gallop, No JVD, No Murmur, Normal Peripheral Pulses Gastrointestinal: Normal Bowel Sounds, No Organomegaly, No Pulsatile Mass, Non Tender, Soft Back: Normal Inspection, No CVA Tenderness, No Vertebral Tenderness Extremity: Normal Capillary Refill, Normal Inspection, Normal Range of Motion, Non Tender, No Calf Tenderness, No Pedal Edema Neurologic/Psychiatric: Alert, Oriented x3, No Motor/Sensory Deficits (severe weakness all extremities), Normal 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 FIM Transfers Therapy Code Descriptions/Definitions Functional [place] Measure: 0=Not Assessed/NA 4=Minimal Assistance 1=Total Assistance 5=Supervision or Setup 2=Maximal Assistance 6=Modified [place] 3=Moderate Assistance 7=Complete IndependenceSCALE: Activities may be completed with or without assistive devices. 7-Icezgslpvb-sujkiut completes the activity by him/herself with no assistance from a helper. 5-Set-up or Clean-up Assistance-helper sets up or cleans up; patient completes activity. [place] assists only prior to or following the activity. 4-Supervision or Touching Assistance-helper provides verbal cues and/or touching/steadying and/or contact guard assistance as patient completes activity. Assistance may be provided throughout the activity or intermittently. 3-Partial/Moderate Assistance-helper does LESS THAN HALF the effort. [place] lifts, holds or supports trunk or limbs, but provides less than half the effort. 2-Substantial/Maximal Assistance-helper does MORE THAN HALF the effort. [place] lifts or holds trunk or limbs and provides more than half the effort. 7-Gfczgyege-dpumbq does ALL the effort. Patient does none of the effort to complete the activity. Or, the assistance of 2 or more helpers is required for the patient to complete the activity. If activity was not attempted, code reason: 7-Patient Refused. 9-Not Applicable-not attempted and the patient did not perform the activity before the current illness, exacerbation or injury. 10-Not Attempted due to Environmental Limitations-(lack of equipment, weather restraints, etc.). 88-Not Attempted due to Medical Conditions or Safety Concerns. Roll Left to Right (QC): 2 Sit to Lying (QC): 2 Sit to Stand (QC): 1 Chair/Hoy-fp-Sqovh Xfer(QC): 1 Car Transfer (QC): 88 Gait Training Does the Patient Walk?: No and Walking Goal NOT indicated Walk 10 feet (QC): 88 Walk 50 ft with 2 Turns(QC): 88 Walk 150 ft (QC): 88 Walking 10ft/uneven surface-QC: 88 Wheelchair Training Does the Pt Use a Wheelchair?: Yes Wheel 50 ft with 2 turns (QC): 88 Wheel 150 ft (QC): 88 Type of Wheelchair: Manual Stair Training 1 Step (curb) (QC): 88 4 Steps (QC): 88 12 Steps (QC): 88 Balance Picking up an Object (QC): 88 ADL-Treatment Eating (QC): 88 Oral Hygiene (QC): 5 Shower/Bathe Self (QC): 1 Upper Body Dressing (QC): 7 Lower Body Dressing (QC): 7 (Footwear (QC) 2) On/Off Footwear (QC): 1 Toileting Hygiene (QC): 88 Toilet Transfer (QC): 88 Assessment/Plan Assessment and Plan Assess & Plan/Chief Complaint Assessment: 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 Diabetes mellitus Low albumin TPN required History of respiratory failure Elevated liver enzymes due to cholestasis from TPN Anemia checking iron level Confusion with undercurrent of dementia Decubitus ulcers Tachycardia Plan: Inpatient rehab protocol TPN Wound care for pressure ulcers Air bed TPN wean Monitor labs Iron infusions (1) Critical illness myopathy Status: Acute (2) Essential hypertension Status: Chronic (3) Abdominal pain (4) HLP (5) Headache Status: Acute (6) Perforated abdominal viscus Status: Acute (7) Postoperative abdominal pain Status: Acute (8) IDDM (insulin dependent diabetes mellitus) Status: Chronic YARON GALLAGHER DO Apr 20, 2019 12:42 POS
--- NOTE | 2019-04-20 13:31 | Physical Therapy Daily Note ---
PT Daily Note-Current Subjective Pt agreeable. No complaints of pain. Transfers SCALE: Activities may be completed with or without assistive devices. 4-Oqkhtvwnhb-cxbrvil completes the activity by him/herself with no assistance from a helper. 5-Set-up or Clean-up Assistance-helper sets up or cleans up; patient completes activity. [place] assists only prior to or following the activity. 4-Supervision or Touching Assistance-helper provides verbal cues and/or touching/steadying and/or contact guard assistance as patient completes activity. Assistance may be provided throughout the activity or intermittently. 3-Partial/Moderate Assistance-helper does LESS THAN HALF the effort. [place] lifts, holds or supports trunk or limbs, but provides less than half the effort. 2-Substantial/Maximal Assistance-helper does MORE THAN HALF the effort. [place] lifts or holds trunk or limbs and provides more than half the effort. 8-Cbzabohhv-gbghtj does ALL the effort. Patient does none of the effort to complete the activity. Or, the assistance of 2 or more helpers is required for the patient to complete the activity. If activity was not attempted, code reason: 7-Patient Refused. 9-Not Applicable-not attempted and the patient did not perform the activity before the current illness, exacerbation or injury. 10-Not Attempted due to Environmental Limitations-(lack of equipment, weather restraints, etc.). 88-Not Attempted due to Medical Conditions or Safety Concerns. Assessment Current Status: Poor Progress Pt performed AP, heel slide x 20 each. Pt rolling max A of 2 for glenroy placement. Pt hoyered bed to chair. O2 insitu. Nursing notified. PT Short Term Goals Short Term Goals Time Frame: Apr 25, 2019 Roll Left & Right: 3 (mod A) Sit to lyin (modA) Lying to sitting on side of be: 3 (modA) Sit to stand: 3 (modA) Chair/kmx-tc-kdorg transfer: 3 (modA) PT [facility] Goals Claims Coordinator Goals PT Claims Coordinator Goals Time Frame: May 09, 2019 Roll Left & Right (QC): 3 (Chet) Sit to Lying (QC): 3 (Chet) Lying-Sitting on Side/Bed(QC): 3 (Chet) Sit to Stand (QC): 3 (Chet) Chair/Iai-dr-Lipzu Xfer(QC): 3 (Ceht) Toilet Transfer (QC): 3 (Chet) Car Transfer (QC): 3 (Chet) Does the Patient Walk: No and Walking Goal NOT indicated Walk 10 feet (QC): 88 Walk 50ft with 2 Turns (QC): 88 Walk 150 ft (QC): 88 Walking 10ft on Uneven Surface: 88 1 Step (curb) (QC): 88 4 Steps (QC): 88 12 Steps (QC): 88 Picking up an Object (QC): 88 Does the Pt use WC or Scooter?: Yes Wheel 50 feet with 2 turns (QC: 4 (SBA) Type: Manual Wheel 150 feet: 4 (SBA) Type: Manual PT Plan Treatment/Plan Treatment Plan: Continue Plan of Care Treatment Plan: Bed Mobility, Concurrent Therapy, Education, Functional Activity José, Functional Strength, Group Therapy, Gait, Safety, Therapeutic Exercise, Transfers Treatment Duration: May 09, 2019 Frequency: At least 5 of 7 days/Wk (IRF) Estimated Hrs Per Day: 1.5 hours per day Patient and/or Family Agrees t: Yes Time/GCodes Time In: 1305 Time Out: 1330 Total Billed Treatment Time: 25 Total Billed Treatment 1, FA 25min OMA BLAND CPTA Apr 20, 2019 13:31 POS
[2019-04-20] MEDS ORDERED: SODIUM ACETATE IV SCH ×12 (17:00)
[2019-04-20] MEDS ORDERED: [UNRECOGNIZED DRUG - OTHER] IV SCH ×12 (17:00)
[2019-04-20] MEDS ORDERED: SODIUM CHLORIDE IV SCH ×12 (17:00)
[2019-04-20 17:31] VITALS: BP 120/61
[2019-04-21] MEDS: fentaNYL INJECTION 100 MCG/2 ML AMP IV PRN ×2 (00:02→20:55)
[2019-04-21] MEDS: RT-ALBUTEROL/IPRATROPIUM 3 ML (DUONEB) VIAL IH SCH ×6 (01:58→23:42)
[2019-04-21] MEDS: CATHETER FLUSH 10 ML SYR IV SCH ×3 (05:27→22:10)
[2019-04-21] MEDS: inSUlin ASPART (NovoLOG) 1 UNIT/0.01 ML (CHARGE PER UNIT) SC SCH ×3 (05:32→18:13)
[2019-04-21 06:05] VITALS: BP 128/67
[2019-04-21 06:09] LABS: ALANINE AMINOTRANSFERASE 72 U/L (0-55); ALKALINE PHOSPHATASE 146 U/L (40-136); BILIRUBIN,TOTAL 3.3 MG/DL (0.1-1.0); BUN/CREATININE RATIO 77; CALCIUM 8.3 MG/DL (8.5-10.1); CARBON DIOXIDE 21 MMOL/L (21-32); CHLORIDE 119 MMOL/L (98-107); CREATININE SERUM 0.66 MG/DL (0.60-1.30); GFR ESTIMATED > 60; GLUCOSE 191 MG/DL (70-105); MAGNESIUM 1.8 MG/DL (1.6-2.4); PHOSPHORUS 4.1 MG/DL (2.3-4.7); POTASSIUM 4.4 MMOL/L (3.6-5.0); SODIUM 148 MMOL/L (135-145); TOTAL PROTEIN 5.9 GM/DL (6.4-8.2)
[2019-04-21] MEDS: SALINE NASAL SPRAY (OCEAN) 45 ML BTL PRN (07:36)
--- NOTE | 2019-04-21 08:41 | NUR ---
TPN: PROVIDING 1750 KCAL, WITH 100 GM PROTEIN, PROVIDES 1800 ML FLUID PER DAY. TPN CYCLES OVER 16 HOURS ON AND 8 HOURS OFF.SODIUM REMOVED, INSULIN ADJUSTED. WILL ADJUST PENDING FUTURE LABS. ZOË ALVARADO PHARMD,BCNSP,CNSC
[2019-04-21] MEDS: FLUTICASONE NASAL SPRAY (FLONASE) 16 GM BTL NS SCH (09:23)
[2019-04-21] MEDS: FAMOTIDINE 20 MG (PEPCID) TABLET PO SCH ×2 (09:24→20:51)
[2019-04-21] MEDS: OXYBUTYNIN (DITROPAN) 5 MG TAB PO SCH ×2 (09:25→20:51)
[2019-04-21] MEDS: ENALAPRIL 5 MG (VASOTEC) TAB PEG SCH (09:25)
[2019-04-21] MEDS: SERTRALINE 50 MG (ZOLOFT) TABLET PO SCH (09:25)
[2019-04-21] MEDS: APIXABAN 2.5 MG (ELIQUIS) TABLET PO SCH ×2 (09:25→20:54)
[2019-04-21] MEDS: NYSTATIN ORAL SUSP 5 ML UDC PO SCH ×4 (09:28→20:54)
[2019-04-21] MEDS: meTOprolol TARTRATE 50 MG (LOPRESSOR) TAB PO SCH ×2 (09:34→20:50)
[2019-04-21] MEDS: VISC LIDOCAINE/ANTACID/DIPHENHYDRAMINE 1:1:1 120 ML PO SCH ×12 (09:41→21:54)
--- NOTE | 2019-04-21 11:23 | PM&R Progress Note ---
Subjective HPI/CC On Admission Date Seen by Provider: Apr 21, 2019 Time Seen by Provider: 11:30 Subjective/Events-last exam Taking meds with vanilla pudding very well Ileostomy functioning well Chey lift required TPN maintained Denies any pain Fentanyl patch tolerated Completely bedridden Needs residential at discharge Cognition is an issue Conferred with RN Check meds and labs Reviewed therapy notes Long recovery expected Review of Systems General: Fatigue Neurological: Confusion Objective Exam Vital Signs Vital Signs Date Time Temp Pulse Resp B/P (MAP) Pulse Ox O2 Delivery O2 Flow Rate FiO2 04/21/19 18:00 37.0 86 16 149/68 (95) 95 Nasal Cannula 2.00 Capillary Refill : General Appearance: No Apparent Distress, Chronically ill, Cachetic, Other (pale, chronically ill) HEENT: PERRL/EOMI, Normal ENT Inspection, Pharynx Normal Neck: Full Range of Motion, Normal Inspection, Non Tender, Supple, Carotid Bruit Respiratory: Chest Non Tender, Lungs Clear, Normal Breath Sounds, No Accessory Muscle Use, No Respiratory Distress Cardiovascular: Regular Rate, Rhythm, No Edema, No Gallop, No JVD, No Murmur, Normal Peripheral Pulses Gastrointestinal: Normal Bowel Sounds, No Organomegaly, No Pulsatile Mass, Non Tender, Soft Back: Normal Inspection, No CVA Tenderness, No Vertebral Tenderness Extremity: Normal Capillary Refill, Normal Inspection, Normal Range of Motion, Non Tender, No Calf Tenderness, No Pedal Edema Neurologic/Psychiatric: Alert, Oriented x3, No Motor/Sensory Deficits (severe weakness all extremities), Normal 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 FIM Transfers Therapy Code Descriptions/Definitions Functional [place] Measure: 0=Not Assessed/NA 4=Minimal Assistance 1=Total Assistance 5=Supervision or Setup 2=Maximal Assistance 6=Modified [place] 3=Moderate Assistance 7=Complete IndependenceSCALE: Activities may be completed with or without assistive devices. 5-Qzyumlxqql-kcqmfjv completes the activity by him/herself with no assistance from a helper. 5-Set-up or Clean-up Assistance-helper sets up or cleans up; patient completes activity. [place] assists only prior to or following the activity. 4-Supervision or Touching Assistance-helper provides verbal cues and/or touching/steadying and/or contact guard assistance as patient completes activity. Assistance may be provided throughout the activity or intermittently. 3-Partial/Moderate Assistance-helper does LESS THAN HALF the effort. [place] lifts, holds or supports trunk or limbs, but provides less than half the effort. 2-Substantial/Maximal Assistance-helper does MORE THAN HALF the effort. [place] lifts or holds trunk or limbs and provides more than half the effort. 5-Uvtqomcdo-jxruoj does ALL the effort. Patient does none of the effort to complete the activity. Or, the assistance of 2 or more helpers is required for the patient to complete the activity. If activity was not attempted, code reason: 7-Patient Refused. 9-Not Applicable-not attempted and the patient did not perform the activity before the current illness, exacerbation or injury. 10-Not Attempted due to Environmental Limitations-(lack of equipment, weather restraints, etc.). 88-Not Attempted due to Medical Conditions or Safety Concerns. Roll Left to Right (QC): 2 Sit to Lying (QC): 2 Sit to Stand (QC): 1 Chair/Ajy-ev-Lmnqo Xfer(QC): 1 Car Transfer (QC): 88 Gait Training Does the Patient Walk?: No and Walking Goal NOT indicated Walk 10 feet (QC): 88 Walk 50 ft with 2 Turns(QC): 88 Walk 150 ft (QC): 88 Walking 10ft/uneven surface-QC: 88 Wheelchair Training Does the Pt Use a Wheelchair?: Yes Wheel 50 ft with 2 turns (QC): 88 Wheel 150 ft (QC): 88 Type of Wheelchair: Manual Stair Training 1 Step (curb) (QC): 88 4 Steps (QC): 88 12 Steps (QC): 88 Balance Picking up an Object (QC): 88 ADL-Treatment Eating (QC): 88 Oral Hygiene (QC): 5 Shower/Bathe Self (QC): 1 Upper Body Dressing (QC): 7 Lower Body Dressing (QC): 7 (Footwear (QC) 2) On/Off Footwear (QC): 1 Toileting Hygiene (QC): 88 Toilet Transfer (QC): 88 Assessment/Plan Assessment and Plan Assess & Plan/Chief Complaint Assessment: 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 Diabetes mellitus Low albumin TPN required History of respiratory failure Elevated liver enzymes due to cholestasis from TPN Anemia checking iron level Confusion with undercurrent of dementia Decubitus ulcers Tachycardia Plan: Inpatient rehab protocol TPN Wound care for pressure ulcers Air bed TPN wean Monitor labs Iron infusions Chey lift and bedridden state (1) Critical illness myopathy Status: Acute (2) Essential hypertension Status: Chronic (3) Abdominal pain (4) HLP (5) Headache Status: Acute (6) Perforated abdominal viscus Status: Acute (7) Postoperative abdominal pain Status: Acute (8) IDDM (insulin dependent diabetes mellitus) Status: Chronic YARON GALLAGHER DO Apr 21, 2019 11:23 POS
[2019-04-21] MEDS ORDERED: [UNRECOGNIZED DRUG - OTHER] IV SCH ×10 (17:00)
[2019-04-21] MEDS ORDERED: POTASSIUM PHOSPHATE IV SCH ×10 (17:00)
[2019-04-21] MEDS ORDERED: POTASSIUM ACETATE IV SCH ×10 (17:00)
--- NOTE | 2019-04-21 17:00 | NUR ---
Unable to co-sign TPN due to password. Box Hinge And Lock Attacher notified, signed with Remi as co-signer. TPN admin begun at 60cc/hr until 1800. at 1800, rate was increased to 120cc/hr, per JUL. unable to document on JUL IV infusion sheet. Notified paper inspector. Will contact chemical supervisor to fix tomorrow.
[2019-04-21 18:00] VITALS: BP 149/68
--- NOTE | 2019-04-21 19:12 | NUR ---
bedside report received from BRIAN VELASCO, assume care of pt
[2019-04-21 20:52] VITALS: BP 146/71
--- NOTE | 2019-04-21 20:55 | NUR ---
c/o abd pain level 8/10 on numeric scale, fentanyl 50mcg iv given, took meds crushed in vanilla pudding.
--- NOTE | 2019-04-21 21:15 | NUR ---
resting quietly in bed, pain level 0/10 on flacc scale
--- NOTE | 2019-04-21 22:00 | NUR ---
unable to flush red port on picc line
[2019-04-22] MEDS: inSUlin ASPART (NovoLOG) 1 UNIT/0.01 ML (CHARGE PER UNIT) SC SCH ×4 (00:08→18:47)
[2019-04-22] MEDS: hydrOXYzine (VISTARIL/ATARAX) 25 MG capsule/tablet PO PRN ×2 (01:04→19:18)
--- NOTE | 2019-04-22 01:04 | NUR ---
pt anxious given Vistaril 12.5 mg crushed in vanilla pudding
[2019-04-22] MEDS: RT-ALBUTEROL/IPRATROPIUM 3 ML (DUONEB) VIAL IH SCH ×5 (01:34→22:39)
[2019-04-22] MEDS: fentaNYL INJECTION 100 MCG/2 ML AMP IV PRN ×2 (06:14→19:58)
--- NOTE | 2019-04-22 06:14 | NUR ---
c/o pain level 5/10 on numeric scale, fentanyl 50mcg iv given
[2019-04-22 06:16] LABS: BASOPHILS % (AUTO) 0 % (0-10); EOSINOPHILS # (AUTO) 0.1 10^3/uL (0.0-0.3); EOSINOPHILS % (AUTO) 1 % (0-10); HEMATOCRIT 30 % (35-52); HEMOGLOBIN 8.9 G/DL (11.5-16.0); LYMPHOCYTES # (AUTO) 0.7 X 10^3 (1.0-4.0); LYMPHOCYTES % (AUTO) 8 % (12-44); MEAN CORPUSCULAR HEMOGLOBIN 32 PG (25-34); MEAN CORPUSCULAR HGB CONC 30 G/DL (32-36); MEAN CORPUSCULAR VOLUME 107 FL (80-99); MEAN PLATELET VOLUME 11.3 FL (7.4-10.4); MONOCYTES # (AUTO) 0.7 X 10^3 (0.0-1.0); MONOCYTES % (AUTO) 8 % (0-12); NEUTROPHILS # (AUTO) 7.2 X 10^3 (1.8-7.8); NEUTROPHILS % (AUTO) 83 % (42-75); PLATELET COUNT 247 10^3/uL (130-400); RED CELL DISTRIBUTION WIDTH 17.9 % (10.0-14.5); WHITE BLOOD COUNT 8.7 10^3/uL (4.3-11.0)
[2019-04-22] MEDS: CATHETER FLUSH 10 ML SYR IV SCH ×3 (06:17→22:07)
[2019-04-22 06:29] VITALS: BP 156/68
[2019-04-22 06:49] LABS: ALANINE AMINOTRANSFERASE 74 U/L (0-55); ALBUMIN 2.1 GM/DL (3.2-4.5); ALKALINE PHOSPHATASE 153 U/L (40-136); BILIRUBIN,TOTAL 3.5 MG/DL (0.1-1.0); BUN/CREATININE RATIO 75; CALCIUM 8.5 MG/DL (8.5-10.1); CARBON DIOXIDE 22 MMOL/L (21-32); CHLORIDE 118 MMOL/L (98-107); CREATININE SERUM 0.64 MG/DL (0.60-1.30); GFR ESTIMATED > 60; GLUCOSE 206 MG/DL (70-105); MAGNESIUM 1.8 MG/DL (1.6-2.4); PHOSPHORUS 3.3 MG/DL (2.3-4.7); POTASSIUM 4.7 MMOL/L (3.6-5.0); SODIUM 146 MMOL/L (135-145); TOTAL PROTEIN 6.1 GM/DL (6.4-8.2)
--- NOTE | 2019-04-22 06:54 | NUR ---
resting quietly in bed, pain level 0/10 on flacc scale
--- NOTE | 2019-04-22 07:17 | NUR ---
bedside report given to MAR VELASCO
--- NOTE | 2019-04-22 08:19 | PM&R Progress Note ---
Subjective HPI/CC On Admission Date Seen by Provider: Apr 22, 2019 Time Seen by Provider: 08:30 Subjective/Events-last exam Labs look okay TPN maintained Fentanyl given for pain Pt remains a full code Overall prognosis poor Bedridden and uses Chey Lift to get out of bed Blood sugars reviewed Cognition is an issue Conferred with RN Check meds and labs Reviewed therapy notes Long recovery expected Review of Systems General: Fatigue Gastrointestinal: Abdominal Pain Neurological: Confusion Objective Exam Vital Signs Vital Signs Date Time Temp Pulse Resp B/P (MAP) Pulse Ox O2 Delivery O2 Flow Rate FiO2 04/23/19 01:55 94 Nasal Cannula 2.00 04/22/19 20:25 82 20 136/72 (93) 04/22/19 18:00 36.9 Capillary Refill : General Appearance: No Apparent Distress, Chronically ill, Cachetic, Other (pale, chronically ill) HEENT: PERRL/EOMI, Normal ENT Inspection, Pharynx Normal Neck: Full Range of Motion, Normal Inspection, Non Tender, Supple, Carotid Bruit Respiratory: Chest Non Tender, Lungs Clear, Normal Breath Sounds, No Accessory Muscle Use, No Respiratory Distress Cardiovascular: Regular Rate, Rhythm, No Edema, No Gallop, No JVD, No Murmur, Normal Peripheral Pulses Gastrointestinal: Normal Bowel Sounds, No Organomegaly, No Pulsatile Mass, Non Tender, Soft Back: Normal Inspection, No CVA Tenderness, No Vertebral Tenderness Extremity: Normal Capillary Refill, Normal Inspection, Normal Range of Motion, Non Tender, No Calf Tenderness, No Pedal Edema Neurologic/Psychiatric: Alert, Oriented x3, No Motor/Sensory Deficits (severe weakness all extremities), Normal 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 FIM Transfers Therapy Code Descriptions/Definitions Functional [place] Measure: 0=Not Assessed/NA 4=Minimal Assistance 1=Total Assistance 5=Supervision or Setup 2=Maximal Assistance 6=Modified [place] 3=Moderate Assistance 7=Complete IndependenceSCALE: Activities may be completed with or without assistive devices. 9-Whaeodrcie-ennsame completes the activity by him/herself with no assistance from a helper. 5-Set-up or Clean-up Assistance-helper sets up or cleans up; patient completes activity. [place] assists only prior to or following the activity. 4-Supervision or Touching Assistance-helper provides verbal cues and/or touching/steadying and/or contact guard assistance as patient completes a ctivity. Assistance may be provided throughout the activity or intermittently. 3-Partial/Moderate Assistance-helper does LESS THAN HALF the effort. [place] lifts, holds or supports trunk or limbs, but provides less than half the effort. 2-Substantial/Maximal Assistance-helper does MORE THAN HALF the effort. [place] lifts or holds trunk or limbs and provides more than half the effort. 1-Btawnempk-ldluvp does ALL the effort. Patient does none of the effort to complete the activity. Or, the assistance of 2 or more helpers is required for the patient to complete the activity. If activity was not attempted, code reason: 7-Patient Refused. 9-Not Applicable-not attempted and the patient did not perform the activity before the current illness, exacerbation or injury. 10-Not Attempted due to Environmental Limitations-(lack of equipment, weather restraints, etc.). 88-Not Attempted due to Medical Conditions or Safety Concerns. Roll Left to Right (QC): 2 Sit to Lying (QC): 2 Sit to Stand (QC): 1 Chair/Lxp-jw-Rskah Xfer(QC): 1 Car Transfer (QC): 88 Gait Training Does the Patient Walk?: No and Walking Goal NOT indicated Walk 10 feet (QC): 88 Walk 50 ft with 2 Turns(QC): 88 Walk 150 ft (QC): 88 Walking 10ft/uneven surface-QC: 88 Wheelchair Training Does the Pt Use a Wheelchair?: Yes Wheel 50 ft with 2 turns (QC): 88 Wheel 150 ft (QC): 88 Type of Wheelchair: Manual Stair Training 1 Step (curb) (QC): 88 4 Steps (QC): 88 12 Steps (QC): 88 Balance Picking up an Object (QC): 88 ADL-Treatment Eating (QC): 88 Oral Hygiene (QC): 5 Shower/Bathe Self (QC): 1 Upper Body Dressing (QC): 7 Lower Body Dressing (QC): 7 (Footwear (QC) 2) On/Off Footwear (QC): 1 Toileting Hygiene (QC): 88 Toilet Transfer (QC): 88 Assessment/Plan Assessment and Plan Assess & Plan/Chief Complaint Assessment: 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 Diabetes mellitus Low albumin TPN required History of respiratory failure Elevated liver enzymes due to cholestasis from TPN Anemia checking iron level Confusion with undercurrent of dementia Decubitus ulcers Tachycardia Plan: Inpatient rehab protocol TPN Wound care for pressure ulcers Air bed TPN wean Monitor labs Iron infusions Chey lift and bedridden state Appreciate Cardiology for tachycardia management (1) Critical illness myopathy Status: Acute (2) Essential hypertension Status: Chronic (3) Abdominal pain (4) HLP (5) Headache Status: Acute (6) Perforated abdominal viscus Status: Acute (7) Postoperative abdominal pain Status: Acute (8) IDDM (insulin dependent diabetes mellitus) Status: Chronic YARON GALLAGHER DO Apr 22, 2019 08:19 POS
--- NOTE | 2019-04-22 08:49 | Cardiology Progress Note ---
Subjective Date Seen by Provider: Apr 22, 2019 Time Seen by Provider: 08:48 Subjective/Events-last exam Patient is sitting up in bed, c/o generalized weakness. Denies any chest pain or dyspnea. Review of Systems General: No Chills, No Night Sweats; Fatigue, Malaise; No Appetite, No Other HEENT: No Head Aches, No Visual Changes, No Eye Pain, No Ear Pain, No Dysphasia , No Sinus Congestion, No Post Nasal Drip, No Sore Throat, No Other Pulmonary: Dyspnea; No Cough, No Pleuritic Chest Pain, No Other Cardiovascular: No: Chest Pain, Palpitations, Orthopnea, Paroxysmal Noc. Dyspnea, Edema, Lt Headedness, Other Objective-Cardiology Exam Last Set of Vital Signs Vital Signs 04/22/19 04/22/19 06:29 08:04 Temp 37.3 Pulse 85 Resp 18 B/P (MAP) 156/68 (97) Pulse Ox 92 O2 Delivery Nasal Cannula O2 Flow Rate 2.00 Capillary Refill : I&O Intake and Output 04/22/19 00:00 Intake Total 200 ml Output Total 1550 ml Balance -1350 ml Intake Oral 200 ml Output Urine Total 1050 ml Stool Total 500 ml General: Alert, Oriented X3, Cooperative HEENT: Atraumatic, PERRLA Neck: Supple, No JVD, No Thyromegaly Lungs: Clear to Auscultation, Normal Air Movement Heart: Regular Rate, Normal S1, Normal S2, No Murmurs Abdomen: Other (Wound vac in place ) Extremities: No Edema Skin: No Rashes, No Significant Lesion Neuro: Normal Speech, Cranial Nerves 3-12 NL Psych/Mental Status: Mental Status NL, Mood NL Results Lab Laboratory Tests 04/22/19 05:50 A/P-Cardiology Admission Diagnosis PAF CAD HTN HLP Assessment/Plan H/O multiple abdominal surgeries, had bowel resection and diverting ileostomy, last procedure was done on March 13, [address], followed by surgical services, recent transfer from [place] on 04-18-19 Paroxysmal atrial fibrillation, maintained on Lopressor, Eliquis. Continue to monitor. Labile hypertension, continue to monitor blood pressure. H/O acute renal insufficiency, continue to monitor renal function. Coronary artery disease - Most recent cardiac catheterization done April 2018 revealed mild ectasia in the proximal LAD with mild disease in the mid LAD, small vessel disease distally, mild ectasia in the proximal circumflex artery and 40-50 percent stenosis in the mid right coronary artery, nonobstructive disease History of colon cancer, history of colon resection and colostomy in the past, followed by Dr. Branham Hyperlipidemia- continue to monitor lipids as outpatient. Carotid artery stenosis, bilateral nonobstructive disease per carotid duplex done December 2018, continue to monitor. History of thyroid nodules noted on ultrasound, followed by Dr. Branham and Dr. Simmons Diabetes mellitus Family history of coronary artery disease. Obstructive sleep apnea, intolerance to CPAP History of appendectomy, kidney stones, hysterectomy. Breast biopsy. Anemia, continue to monitor, management per Dr Hand Patient was seen and evaluated with Natalie, examination performed, management plan was discussed, agree with the current scribed note, I made few changes to the note using Italic font Patient is laying down in bed, still complaining of generalized weakness Lungs were clear to auscultation, heart is regular Continue on current medication, EKG showed sinus rhythm Monitor blood pressure and lipids Continue on physical therapy Clinical Quality Measures DVT/VTE Risk/Contraindication: Risk Factor Score Per Nursin RFS Level Per Nursing on Admit: 4+=Very High NATALIE RAO Apr 22, 2019 08:49 NAYA DUARTE MD Apr 22, 2019 09:53 POS
[2019-04-22] MEDS: ENALAPRIL 5 MG (VASOTEC) TAB PEG SCH (09:56)
[2019-04-22] MEDS: FAMOTIDINE 20 MG (PEPCID) TABLET PO SCH (09:56)
[2019-04-22] MEDS: OXYBUTYNIN (DITROPAN) 5 MG TAB PO SCH ×2 (09:56→20:27)
[2019-04-22] MEDS: SERTRALINE 50 MG (ZOLOFT) TABLET PO SCH (09:56)
[2019-04-22] MEDS: NYSTATIN ORAL SUSP 5 ML UDC PO SCH ×4 (09:59→20:27)
[2019-04-22] MEDS: meTOprolol TARTRATE 50 MG (LOPRESSOR) TAB PO SCH ×2 (09:59→20:27)
[2019-04-22] MEDS: VISC LIDOCAINE/ANTACID/DIPHENHYDRAMINE 1:1:1 120 ML PO SCH ×12 (10:00→20:28)
[2019-04-22] MEDS: APIXABAN 2.5 MG (ELIQUIS) TABLET PO SCH ×2 (10:01→20:27)
[2019-04-22] MEDS: FLUTICASONE NASAL SPRAY (FLONASE) 16 GM BTL NS SCH (10:02)
[2019-04-22 10:03] VITALS: BP 157/70
--- NOTE | 2019-04-22 11:51 | Physical Therapy Daily Note ---
PT Daily Note-Current Subjective Patient in bed pre tx, agrees to PT, will be co-treating with OT due to pain with movement, weakness, impaired mobility, endurance, the inability to stand or ambulate, the need to coordinate UE and LE during activity. Will perform bed bathing with OT. Appearance Patient in recliner post tx with nurse call, continue to work with OT for a while. Mental Status Patient Orientation: Person, Place, Situation Attachments: Oxygen, Wing Catheter wound vac Transfers SCALE: Activities may be completed with or without assistive devices. 3-Rnwqaomncj-zprrxgi completes the activity by him/herself with no assistance from a helper. 5-Set-up or Clean-up Assistance-helper sets up or cleans up; patient completes activity. [place] assists only prior to or following the activity. 4-Supervision or Touching Assistance-helper provides verbal cues and/or touching/steadying and/or contact guard assistance as patient completes activity. Assistance may be provided throughout the activity or intermittently. 3-Partial/Moderate Assistance-helper does LESS THAN HALF the effort. [place] lifts, holds or supports trunk or limbs, but provides less than half the effort. 2-Substantial/Maximal Assistance-helper does MORE THAN HALF the effort. [place] lifts or holds trunk or limbs and provides more than half the effort. 9-Toxcicwsu-wxgmhi does ALL the effort. Patient does none of the effort to complete the activity. Or, the assistance of 2 or more helpers is required for the patient to complete the activity. If activity was not attempted, code reason: 7-Patient Refused. 9-Not Applicable-not attempted and the patient did not perform the activity before the current illness, exacerbation or injury. 10-Not Attempted due to Environmental Limitations-(lack of equipment, weather restraints, etc.). 88-Not Attempted due to Medical Conditions or Safety Concerns. Roll Left & Right (QC): 2 Sit to Lying (QC): 1 Lying to Sitting/Side of Bed(Q: 1 Chair/Pzm-xs-Cxmdo Xfer(QC): 1 Patient sat on the side of the bed for about 5 min before needing to lay down, max assist of 2 for supine <-> sit, glenroy to recliner. Exercises Supine Ex: Ankle pumps, Quad Set, Glut sets Supine Reps: 20 Treatments bed mobility, transfers, sitting balance, bathing Assessment Current Status: Poor Progress patient could not tolerate sitting at EOB for very long, very anxious PT Short Term Goals Short Term Goals Time Frame: Apr 25, 2019 Roll Left & Right: 3 (mod A) Sit to lyin (modA) Lying to sitting on side of be: 3 (modA) Sit to stand: 3 (modA) Chair/uij-do-qmcew transfer: 3 (modA) PT Snf Goals Snf Goals PT Asbestos Cement Sheet Supervisor Goals Time Frame: May 09, 2019 Roll Left & Right (QC): 3 (Chet) Sit to Lying (QC): 3 (Chet) Lying-Sitting on Side/Bed(QC): 3 (Chet) Sit to Stand (QC): 3 (Chet) Chair/Vgd-jz-Pekli Xfer(QC): 3 (Chet) Toilet Transfer (QC): 3 (Chet) Car Transfer (QC): 3 (Chet) Does the Patient Walk: No and Walking Goal NOT indicated Walk 10 feet (QC): 88 Walk 50ft with 2 Turns (QC): 88 Walk 150 ft (QC): 88 Walking 10ft on Uneven Surface: 88 1 Step (curb) (QC): 88 4 Steps (QC): 88 12 Steps (QC): 88 Picking up an Object (QC): 88 Does the Pt use WC or Scooter?: Yes Wheel 50 feet with 2 turns (QC: 4 (SBA) Type: Manual Wheel 150 feet: 4 (SBA) Type: Manual PT Plan Problem List Problem List: Activity Tolerance, Functional Strength, Safety, Balance, Gait, Transfer, Bed Mobility, ROM Treatment/Plan Treatment Plan: Continue Plan of Care Treatment Plan: Bed Mobility, Concurrent Therapy, Education, Functional Activity José, Functional Strength, Group Therapy, Gait, Safety, Therapeutic Exercise, Transfers Treatment Duration: May 09, 2019 Frequency: At least 5 of 7 days/Wk (IRF) Estimated Hrs Per Day: 1.5 hours per day Patient and/or Family Agrees t: Yes Safety Risks/Education Patient Education: Correct Positioning, Safety Issues Teaching Recipient: Patient Teaching Methods: Demonstration, Discussion Response to Teaching: Reinforcement Needed Time/GCodes Time In: 1015 Time Out: 1100 Total Billed Treatment Time: 45 Total Billed Treatment 1 visit FA 45' Co-treated with OT for 45 min. PT performed bed mobility and transfers, LE exercise, assist with bathing and positioning, patient had to roll several times to each side for positioning and glenroy sling placement. OT worked on bathing, UE positioning, assist with transfers and sitting. ANIVAL HUANG PT Apr 22, 2019 11:51 POS
--- NOTE | 2019-04-22 12:11 | Physical Therapy Daily Note ---
PT Daily Note-Current Subjective Pt tired and requesting to return to bed. Transfers SCALE: Activities may be completed with or without assistive devices. 8-Lnfofgwwry-hwfxlvb completes the activity by him/herself with no assistance from a helper. 5-Set-up or Clean-up Assistance-helper sets up or cleans up; patient completes activity. [place] assists only prior to or following the activity. 4-Supervision or Touching Assistance-helper provides verbal cues and/or touching/steadying and/or contact guard assistance as patient completes activity. Assistance may be provided throughout the activity or intermittently. 3-Partial/Moderate Assistance-helper does LESS THAN HALF the effort. [place] lifts, holds or supports trunk or limbs, but provides less than half the effort. 2-Substantial/Maximal Assistance-helper does MORE THAN HALF the effort. [place] lifts or holds trunk or limbs and provides more than half the effort. 6-Nlmhsidjw-pphciu does ALL the effort. Patient does none of the effort to complete the activity. Or, the assistance of 2 or more helpers is required for the patient to complete the activity. If activity was not attempted, code reason: 7-Patient Refused. 9-Not Applicable-not attempted and the patient did not perform the activity before the current illness, exacerbation or injury. 10-Not Attempted due to Environmental Limitations-(lack of equipment, weather restraints, etc.). 88-Not Attempted due to Medical Conditions or Safety Concerns. Roll Left & Right (QC): 1 Chair/Spe-jp-Kyvno Xfer(QC): 1 Pt was transferred chair to bed with glenroy lift. once in bed, pt performed rolling left to/from right with assist of 2 with heavy cues to initiate and participate in transfer. Rolling left/righ 4 times each with focus on reaching with her hands and pushing with her feet. In bed post treatment with needs met. Assessment Pt requires heavy cues to participate and assist of 2 to complete tasks. PT Short Term Goals Short Term Goals Time Frame: Apr 25, 2019 Roll Left & Right: 3 (mod A) Sit to lyin (modA) Lying to sitting on side of be: 3 (modA) Sit to stand: 3 (modA) Chair/lhg-xx-erpdh transfer: 3 (modA) PT Review Analyst Goals Review Analyst Goals PT Usp Goals Time Frame: May 09, 2019 Roll Left & Right (QC): 3 (Chet) Sit to Lying (QC): 3 (Chet) Lying-Sitting on Side/Bed(QC): 3 (Chet) Sit to Stand (QC): 3 (Chet) Chair/Rqu-us-Zzutv Xfer(QC): 3 (Chet) Toilet Transfer (QC): 3 (Chet) Car Transfer (QC): 3 (Chet) Does the Patient Walk: No and Walking Goal NOT indicated Walk 10 feet (QC): 88 Walk 50ft with 2 Turns (QC): 88 Walk 150 ft (QC): 88 Walking 10ft on Uneven Surface: 88 1 Step (curb) (QC): 88 4 Steps (QC): 88 12 Steps (QC): 88 Picking up an Object (QC): 88 Does the Pt use WC or Scooter?: Yes Wheel 50 feet with 2 turns (QC: 4 (SBA) Type: Manual Wheel 150 feet: 4 (SBA) Type: Manual PT Plan Problem List Problem List: Activity Tolerance, Functional Strength, Safety, Balance, Gait Treatment/Plan Treatment Plan: Continue Plan of Care Treatment Plan: Bed Mobility, Concurrent Therapy, Education, Functional Activi ty José, Functional Strength, Group Therapy, Gait, Safety, Therapeutic Exercise, Transfers Treatment Duration: May 09, 2019 Frequency: At least 5 of 7 days/Wk (IRF) Estimated Hrs Per Day: 1.5 hours per day Patient and/or Family Agrees t: Yes Safety Risks/Education Patient Education: Transfer Techniques, Safety Issues Teaching Recipient: Patient Teaching Methods: Demonstration, Discussion Response to Teaching: Reinforcement Needed Time/GCodes Time In: 1200 Time Out: 1215 Total Billed Treatment Time: 15 Total Billed Treatment visit FA 15 GEOVANNI LOMAS PT Apr 22, 2019 12:11 POS
--- NOTE | 2019-04-22 12:16 | Occupational Ther Daily Note ---
OT Current Status-Daily Note Subjective Pt. reports pain with movement, but does not give a pain number. States, "all over." Pt. has already had pain medication. Appearance Pt. in bed. Agrees to work with therapy. Mental Status/Objective Patient Orientation: Person, Place ADL-Treatment Therapy Code Descriptions/Definitions Functional [place] Measure: 0=Not Assessed/NA 4=Minimal Assistance 1=Total Assistance 5=Supervision or Setup 2=Maximal Assistance 6=Modified [place] 3=Moderate Assistance 7=Complete IndependenceSCALE: Activities may be completed with or without assistive devices. 8-Dnxydkbwiq-lfwdeff completes the activity by him/herself with no assistance from a helper. 5-Set-up or Clean-up Assistance-helper sets up or cleans up; patient completes activity. [place] assists only prior to or following the activity. 4-Supervision or Touching Assistance-helper provides verbal cues and/or touching/steadying and/or contact guard assistance as patient completes activity. Assistance may be provided throughout the activity or intermittently. 3-Partial/Moderate Assistance-helper does LESS THAN HALF the effort. [place] lifts, holds or supports trunk or limbs, but provides less than half the effort. 2-Substantial/Maximal Assistance-helper does MORE THAN HALF the effort. [place] lifts or holds trunk or limbs and provides more than half the effort. 4-Jflqfdsqs-atjyje does ALL the effort. Patient does none of the effort to compl ete the activity. Or, the assistance of 2 or more helpers is required for the patient to complete the activity. If activity was not attempted, code reason: 7-Patient Refused. 9-Not Applicable-not attempted and the patient did not perform the activity before the current illness, exacerbation or injury. 10-Not Attempted due to Environmental Limitations-(lack of equipment, weather restraints, etc.). 88-Not Attempted due to Medical Conditions or Safety Concerns. Shower/Bathe Self (QC): 2 Lower Body Dressing (QC): 1 (Footwear (socks)) Toileting Hygiene (QC): 1 (Colostomy and catheter) Pt. in bed. OT began treatment with sponge bath at bed level. Pt. able to wash face and part of upper body. Pt. encouraged to wash front lou area but pt. states that she is too scared due to all the tube that she has. PT comes in to assist with co-treatment due to pt's need of skilled assistance x 2, fatigue, and pain. OT assisted with ADL skills at bed level, while PT facilitated transfers and pt rolling in bed. Pt. required max x 2 to roll side to side and dependent assist to wash rear lou area, back, bilateral LE. OT assisted pt. with brushing hair. Pt. declines for OT to wash hair at this time with shampoo cap. OT/PT assisted pt. to sit on side of bed, with dependent assist x 2 supine-sit. Pt. sat total of 1-2 minutes, but states that she has to lay back down. Pt. reports that she is dizzy, but also that she is stuffed up from oxygen and has difficulty breathing. Pt. seems in no respiratory distress. Pt. layed self back down with upper body but required max for LE. Pt. rolled side- side again with max x2, and glenroy sling positioned underneath her. Transferred pt. to reclining chair with glenroy lift. All needs met up in reclining chair. Pt. issued therapy sponge and yellow theraband to begin UE strengthening. Pt. states that she is too tired to complete UE exercises. Education OT Patient Education: Correct positioning, Exercise program, Modified ADL techniques, Progress toward Goal/Update tx plan, Purpose of tx/functional activities, Reviewed precautions, Rehab process, Transfer techniques Teaching Recipient: Patient Teaching Methods: Demonstration, Discussion Response to Teaching: Verbalize Understanding, Return Demonstration OT Short Term Goals Short Term Goals Time Frame: May 02, 2019 Eatin Oral hygiene: 4 Toileting hygiene: 3 Shower/bathe self: 3 Upper body dressin Lower body dressin Putting on/taking off footwear: 3 OT Administrative Staff Supervisor Goals Custodial Goals Time Frame: May 16, 2019 Eating (QC): 6 Oral Hygiene (QC): 6 Toileting Hygiene (QC): 5 Shower/Bathe Self (QC): 4 Upper Body Dressing (QC): 5 Lower Body Dressing (QC): 5 On/Off Footwear (QC): 5 Additional Goals: 1-Demonstrate ADL Tasks, 2-Verbalize Understanding, 3- ImproveStrength/José 1=Demonstrate adherence to instructed precautions during ADL tasks. 2=Patient will verbalize/demonstrate understanding of assistive devices/modifications for ADL. 3=Patient will improve strength/tolerance for activity to enable patient to perform ADL's. OT Education/Plan Problem List/Assessment Assessment: Decreased Activ Tolerance, Decreased UE Strength, Dependent Transfers, Impaired Bed Mobility, Impaired Coordination, Impaired Funct Balance, Impaired I ADL's, Impaired Self-Care Skills Discharge Recommendations Plan/Recommendations: Continue POC Therapy Discharge Recommendati: 24 Hour Supervision, Post Acute OT Treatment Plan/Plan of Care Treatment,Training & Education: Yes Patient would benefit from OT for education, treatment and training to promote independence in ADL's, mobility, safety and/or upper extremity function for ADL's. Plan of Care: ADL Retraining, Functional Mobility, Group Exercise/Act as Ind, UE Funct Exercise/Act Treatment Duration: May 16, 2019 Frequency: At least 5 of 7 days/Wk (IRF) Estimated Hrs Per Day: 1.5 hours per day Agreement: Yes Rehab Potential: Fair Time/GCodes Start Time: 10:00 Stop Time: 11:00 Total Time Billed (hr/min): 60 Billed Treatment Time 1, ADL x 30minutes, FA x 30minutes HEMANT MERCEDES OT Apr 22, 2019 12:16 POS
--- NOTE | 2019-04-22 12:54 | Physical Therapy Daily Note ---
PT Daily Note-Current Subjective Pt reports feeling tired. [place] to PT. Transfers SCALE: Activities may be completed with or without assistive devices. 7-Nrdbtkukct-ojpwdqg completes the activity by him/herself with no assistance from a helper. 5-Set-up or Clean-up Assistance-helper sets up or cleans up; patient completes activity. [place] assists only prior to or following the activity. 4-Supervision or Touching Assistance-helper provides verbal cues and/or touching/steadying and/or contact guard assistance as patient completes activity. Assistance may be provided throughout the activity or intermittently. 3-Partial/Moderate Assistance-helper does LESS THAN HALF the effort. [place] lifts, holds or supports trunk or limbs, but provides less than half the effort. 2-Substantial/Maximal Assistance-helper does MORE THAN HALF the effort. [place] lifts or holds trunk or limbs and provides more than half the effort. 4-Berjxsvyo-aenzkb does ALL the effort. Patient does none of the effort to complete the activity. Or, the assistance of 2 or more helpers is required for the patient to complete the activity. If activity was not attempted, code reason: 7-Patient Refused. 9-Not Applicable-not attempted and the patient did not perform the activity before the current illness, exacerbation or injury. 10-Not Attempted due to Environmental Limitations-(lack of equipment, weather restraints, etc.). 88-Not Attempted due to Medical Conditions or Safety Concerns. Treatments Skill of 2 clinicians indicated due to complexity of pt and need for heavy cuing (verbal and tactile) to facilitate task; co treat [facility] OT. Pt transferred sup to sit EOB with assist of 2 with manual and verbal cues. Sat EOB several minutes with CG-min assist; PT providing seated balance/trunk control assist with cues to activate abdominals as OT addressed use and placement of UE's to maintain seated balance; changed gown in sitting. Pt in bed post treatment with needs met and comfortable. Assessment Pt more interactive and participatory this visit compared to earlier; however, fatigues quickly and requests to rest and lie back down often during treatment. PT Short Term Goals Short Term Goals Time Frame: Apr 25, 2019 Roll Left & Right: 3 (mod A) Sit to lyin (modA) Lying to sitting on side of be: 3 (modA) Sit to stand: 3 (modA) Chair/jwf-xk-jfqnz transfer: 3 (modA) PT Usp Goals Form Block Maker Goals PT Usp Goals Time Frame: May 09, 2019 Roll Left & Right (QC): 3 (Chet) Sit to Lying (QC): 3 (Chet) Lying-Sitting on Side/Bed(QC): 3 (Chet) Sit to Stand (QC): 3 (Chet) Chair/Jui-hn-Qiqjr Xfer(QC): 3 (Chet) Toilet Transfer (QC): 3 (Chet) Car Transfer (QC): 3 (Chet) Does the Patient Walk: No and Walking Goal NOT indicated Walk 10 feet (QC): 88 Walk 50ft with 2 Turns (QC): 88 Walk 150 ft (QC): 88 Walking 10ft on Uneven Surface: 88 1 Step (curb) (QC): 88 4 Steps (QC): 88 12 Steps (QC): 88 Picking up an Object (QC): 88 Does the Pt use WC or Scooter?: Yes Wheel 50 feet with 2 turns (QC: 4 (SBA) Type: Manual Wheel 150 feet: 4 (SBA) Type: Manual PT Plan Problem List Problem List: Activity Tolerance, Functional Strength, Safety, Balance, Transfer, Bed Mobility Treatment/Plan Treatment Plan: Continue Plan of Care Treatment Plan: Bed Mobility, Concurrent Therapy, Education, Functional Activity José, Functional Strength, Group Therapy, Gait, Safety, Therapeutic Exercise, Transfers Treatment Duration: May 09, 2019 Frequency: At least 5 of 7 days/Wk (IRF) Estimated Hrs Per Day: 1.5 hours per day Patient and/or Family Agrees t: Yes Safety Risks/Education Patient Education: Safety Issues Teaching Recipient: Patient Teaching Methods: Discussion Response to Teaching: Reinforcement Needed Time/GCodes Time In: 1230 Time Out: 1245 Total Billed Treatment Time: 15 Total Billed Treatment visit FA 15 Co treat with OT GEOVANNI LOMAS PT Apr 22, 2019 12:54 POS
--- NOTE | 2019-04-22 13:05 | Occupational Ther Daily Note ---
OT Current Status-Daily Note Subjective Pt. slightly confused this a.m. States that she is exhausted from having to "run back and forth from her sister's house." Appearance Pt. in bed. Agrees to work with therapy with increased encouragement. Mental Status/Objective Patient Orientation: Confused Attachments: Colostomy/Ileostomy, Wing Catheter, Oxygen ADL-Treatment Therapy Code Descriptions/Definitions Functional [place] Measure: 0=Not Assessed/NA 4=Minimal Assistance 1=Total Assistance 5=Supervision or Setup 2=Maximal Assistance 6=Modified [place] 3=Moderate Assistance 7=Complete IndependenceSCALE: Activities may be completed with or without assistive devices. 1-[place]-oxdzbla completes the activity by him/herself with no assistance from a helper. 5-Set-up or Clean-up Assistance-helper sets up or cleans up; patient completes activity. [place] assists only prior to or following the activity. 4-Supervision or Touching Assistance-helper provides verbal cues and/or touching/steadying and/or contact guard assistance as patient completes activity. Assistance may be provided throughout the activity or intermittently. 3-Partial/Moderate Assistance-helper does LESS THAN HALF the effort. [place] lifts, holds or supports trunk or limbs, but provides less than half the effort. 2-Substantial/Maximal Assistance-helper does MORE THAN HALF the effort. [place] lifts or holds trunk or limbs and provides more than half the effort. 2-Amzflxefq-bdboeq does ALL the effort. Patient does none of the effort to complete the activity. Or, the assistance of 2 or more helpers is required for the patient to complete the activity. If activity was not attempted, code reason: 7-Patient Refused. 9-Not Applicable-not attempted and the patient did not perform the activity before the current illness, exacerbation or injury. 10-Not Attempted due to Environmental Limitations-(lack of equipment, weather restraints, etc.). 88-Not Attempted due to Medical Conditions or Safety Concerns. Toileting Hygiene (QC): 1 (Seal of colostomy came slightly apart. Small leak noted. Nursing notified immediately.) Other Treatment Co-treatment with PT performed due to pt's low activity level and need of skilled assistance. Pt. in bed and requires encouragement. Agrees to work with therapy. Required max x 2 for roll in bed. OT assisted with lines and hand placement while PT focused on transfer training and LE. Transferred supine-sit with max x 2. While seated, pt. required min assist of 1-2 at times for balance. Encouraged to sit upright and breathe deep. Pt. able to sit approximately 5 minutes with encouragement. Transferred sit-supine with mod assist x 2. Dependent assist x 2 for bed mobility and positioning. All needs met. Education OT Patient Education: Correct positioning, Modified ADL techniques, Progress toward Goal/Update tx plan, Purpose of tx/functional activities, Reviewed precautions, Rehab process, Transfer techniques Teaching Recipient: Patient Teaching Methods: Demonstration, Discussion Response to Teaching: Verbalize Understanding, Return Demonstration OT Short Term Goals Short Term Goals Time Frame: May 02, 2019 Eatin Oral hygiene: 4 Toileting hygiene: 3 Shower/bathe self: 3 Upper body dressin Lower body dressin Putting on/taking off footwear: 3 OT Gizzard Puller Goals Gizzard Puller Goals Time Frame: May 16, 2019 Eating (QC): 6 Oral Hygiene (QC): 6 Toileting Hygiene (QC): 5 Shower/Bathe Self (QC): 4 Upper Body Dressing (QC): 5 Lower Body Dressing (QC): 5 On/Off Footwear (QC): 5 Additional Goals: 1-Demonstrate ADL Tasks, 2-Verbalize Understanding, 3- ImproveStrength/José 1=Demonstrate adherence to instructed precautions during ADL tasks. 2=Patient will verbalize/demonstrate understanding of assistive devices/modifications for ADL. 3=Patient will improve strength/tolerance for activity to enable patient to perform ADL's. OT Education/Plan Problem List/Assessment Assessment: Decreased Activ Tolerance, Decreased UE Strength, Dependent Transfers, Impaired Bed Mobility, Impaired Funct Balance, Impaired I ADL's, Impaired Self-Care Skills, Restricted Funct UE ROM Discharge Recommendations Plan/Recommendations: Continue POC Therapy Discharge Recommendati: 24 Hour Supervision Treatment Plan/Plan of Care Treatment,Training & Education: Yes Patient would benefit from OT for education, treatment and training to promote independence in ADL's, mobility, safety and/or upper extremity function for ADL's. Plan of Care: ADL Retraining, Functional Mobility, Group Exercise/Act as Ind, UE Funct Exercise/Act Treatment Duration: May 16, 2019 Frequency: At least 5 of 7 days/Wk (IRF) Estimated Hrs Per Day: 1.5 hours per day Agreement: Yes Rehab Potential: Fair Time/GCodes Start Time: 12:30 Stop Time: 12:45 Total Time Billed (hr/min): 15 Billed Treatment Time 1, FA x 15minutes HEMANT MERCEDES OT Apr 22, 2019 13:05 POS
[2019-04-22] MEDS ORDERED: INSU100I14 SC (13:26)
[2019-04-22] MEDS ORDERED: AMLO5TAB9 PO (13:26)
[2019-04-22] MEDS ORDERED: INSU100I14 SQ (13:26)
[2019-04-22] MEDS ORDERED: VITA400C60 PO (13:26)
[2019-04-22] MEDS ORDERED: INSU100I10 SC (13:26)
[2019-04-22] MEDS ORDERED: ASPI-983 PO (13:26)
[2019-04-22] MEDS ORDERED: OMG1KC PO (13:26)
[2019-04-22] MEDS ORDERED: ALLO300T2 PO (13:26)
[2019-04-22] MEDS ORDERED: BISO5TAB PO (13:26)
[2019-04-22] MEDS ORDERED: MULT1TAB69 PO (13:26)
[2019-04-22] MEDS ORDERED: LOSA100T57 PO (13:26)
--- NOTE | 2019-04-22 13:27 | NUR ---
UPDATED MED REC ON MONDAY WITH THE ORDERS FROM [facility]. I DID NOT INCLUDE THE TPN PORTIONS OF THE ORDERS MARKED BY PHARMACIST NIRALI. AT THIS TIME TODAY, I REMOVED THOSE ORDERS AND UPDATED THE MED REC BACK TO THE LIST OF MEDICATIONS FILLED PRIOR TO PATIENT BEING ADMITTED PREVIOUSLY. I DID NOT INCLUDE THE LOVASTATIN THAT WAS REPORTED PRIOR BECAUSE I WAS UNABLE TO VERIFY IT HAD BEEN FILLED AT THE PHARMACY. OTC MEDS: VITAMIN E FISH OIL MTV ASPIRIN
--- NOTE | 2019-04-22 13:51 | NUR ---
Reviewed EMR for overall status and progress. Understandably small increments of improvement. Physician has noted that patient will need SNF at discharge, may prove challenging due to level of care needed over an anticipated lengthy recovery time period.
--- NOTE | 2019-04-22 15:18 | Speech Therapy Daily Note ---
Speech Daily Progress Note Subjective Date Seen by Provider: Apr 22, 2019 Time Seen by Provider: 00:30 Patient was resting in her recliner when I entered her room. Objective Patient completed q/a related to her daily needs and when she discharges with 80% given 15% verbal cuing. Assessment Assessment Current Status: Fair Progress Treatment Plan Continue Plan of Care Speech Short Term Goals Short Term Goals Short Term Goals 1) Patient will complete memory tasks related to her daily needs at 90% or greater with minimal cues. 2) Patient will complete problem solving tasks related to her daily needs at 90% or greater with minimal cues. 3) Patient will complete safety awareness tasks related to her daily needs at 90% or greater with minimal cues. Speech Half-Way Goals Half-Way Goals Patient will improve cognitive-communication necessary for safety and daily living tasks with minimal assist. Speech-Plan Patient/Family Goals Patient/Family Goals: Patient plans on returning home where she lives with her daughter. Treatment Plan Speech Therapy Treatment Plan: Continue Plan of Care Patient was more alert and able to participate today Treatment Duration: May 03, 2019 Frequency: 5 times per week Estimated Hrs Per Day: .5 hour per day Rehab Potential: Fair Barriers to Learning: Patient's complex medical status including memory deficits Pt/Family Agrees to Plan: Yes Safety Risks/Education Teaching Recipient: Patient Teaching Methods: Demonstration, Discussion Response to Teaching: Verbalize Understanding, Return Demonstration Education Topics Provided: Safety within her room and communication of her wants/needs Time Speech Therapy Time In: 11:30 Speech Therapy Time Out: 12:00 Total Billed Time: 30 Billed Treatment Time 1, BUCKY Murray Apr 22, 2019 15:18 POS
[2019-04-22] MEDS ORDERED: RT-ALBUTEROL SULF 2.5 MG/3 ML PRE-MIX VIAL IH PRN (16:15)
[2019-04-22] MEDS ORDERED: [UNRECOGNIZED DRUG - OTHER] IV SCH ×10 (17:00)
[2019-04-22] MEDS ORDERED: POTASSIUM PHOSPHATE IV SCH ×10 (17:00)
[2019-04-22] MEDS ORDERED: POTASSIUM ACETATE IV SCH ×10 (17:00)
[2019-04-22 18:00] VITALS: BP 135/70
--- NOTE | 2019-04-22 19:18 | NUR ---
pt calling out wanting to leave states no one comes in here, i just want to leave, my phone keeps ringing & i can not get to lt, phone was right beside pt, day shift nurse states pt had been fine earlier today, Vistaril 12.5mg crushed in vanilla pudding
--- NOTE | 2019-04-22 19:25 | NUR ---
bedside report received from MAR VELASCO, assume care of pt
--- NOTE | 2019-04-22 19:58 | NUR ---
pt c/o back pain level 8/10 on numeric scale, fentanyl 50mcg iv given
[2019-04-22 20:25] VITALS: BP 136/72
--- NOTE | 2019-04-22 20:27 | NUR ---
rates pain level 2/10 on numeric scale, much calmer now, took po meds crushed in vanilla pudding
--- NOTE | 2019-04-22 22:00 | NUR ---
red port on picc line still not flushing, this was passed on to day shift
[2019-04-23] MEDS: inSUlin ASPART (NovoLOG) 1 UNIT/0.01 ML (CHARGE PER UNIT) SC SCH ×4 (00:20→18:11)
[2019-04-23] MEDS: RT-ALBUTEROL/IPRATROPIUM 3 ML (DUONEB) VIAL IH SCH ×6 (01:55→22:00)
--- NOTE | 2019-04-23 02:45 | NUR ---
pt calling out stating she was going to have to go somewhere, she was so miserable, wanting to leave, daughter called to calm pt down
[2019-04-23] MEDS: fentaNYL INJECTION 100 MCG/2 ML AMP IV PRN ×2 (02:47→13:58)
--- NOTE | 2019-04-23 02:47 | NUR ---
fentanyl 50mcg iv given for back pain level 8/10 on numeric scale
--- NOTE | 2019-04-23 03:20 | NUR ---
resting quietly in bed, pain level 0/10 on flacc scale
[2019-04-23] MEDS: hydrALAZINE (APESOLINE) 20 MG/ML VIAL IV PRN (04:23)
[2019-04-23] MEDS: CATHETER FLUSH 10 ML SYR IV SCH ×3 (04:23→22:00)
--- NOTE | 2019-04-23 04:23 | NUR ---
b/p 162/64 Apresoline 10mg iv given
--- NOTE | 2019-04-23 05:15 | NUR ---
b/p 135/64
[2019-04-23 05:59] LABS: ALANINE AMINOTRANSFERASE 73 U/L (0-55); ALBUMIN 2.1 GM/DL (3.2-4.5); ALKALINE PHOSPHATASE 150 U/L (40-136); BILIRUBIN,TOTAL 3.9 MG/DL (0.1-1.0); BUN/CREATININE RATIO 71; CALCIUM 8.4 MG/DL (8.5-10.1); CARBON DIOXIDE 18 MMOL/L (21-32); CHLORIDE 117 MMOL/L (98-107); CREATININE SERUM 0.68 MG/DL (0.60-1.30); GFR ESTIMATED > 60; GLUCOSE 192 MG/DL (70-105); MAGNESIUM 1.7 MG/DL (1.6-2.4); PHOSPHORUS 3.3 MG/DL (2.3-4.7); POTASSIUM 4.8 MMOL/L (3.6-5.0); SODIUM 143 MMOL/L (135-145); TOTAL PROTEIN 6.3 GM/DL (6.4-8.2)
[2019-04-23 06:00] VITALS: BP 135/64
--- NOTE | 2019-04-23 07:07 | NUR ---
bedside report given to SHANI VELASCO
--- NOTE | 2019-04-23 08:04 | NUR ---
TPN decreased to 60mls/hr per orders.
--- NOTE | 2019-04-23 08:10 | Progress Note - Surgery ---
BECCA CHANDLER MED STUDENT 04/23/19 0810: Subjective Date Seen by a Provider: Apr 23, 2019 Time Seen by a Provider: 07:45 Subjective/Events-last exam Ms. Samson reports feeling unwell today overall, main complaint is that her throat is dry and makes it difficult for her to talk and swallow. She denies having any abdominal pain recently, but last week had some abdominal pains that she attributes to coughing. Her wounds look clean, her drains and ostomies are product, and she denies having any issues with them. Woundvac drainage is serosanguinous with brown tinge. Review of Systems General: Chills, Fatigue HEENT: No Sinus Congestion; Sore Throat (dry throat) Pulmonary: No Dyspnea; Cough Cardiovascular: Chest Pain (across lower chest, she attributes to feeling cold), Palpitations (racing heart beat); No: Lt Headedness Gastrointestinal: Abdominal Pain (attributes to coughing); No: Nausea, Vomiting Genitourinary: No Dysuria, No Hematuria Neurological: Other (tingling in legs); No: Numbness Objective Exam Vital Signs Date Time Temp Pulse Resp B/P (MAP) Pulse Ox O2 Delivery O2 Flow Rate FiO2 04/23/19 07:37 95 Nasal Cannula 2.00 04/23/19 06:00 36.7 83 16 135/64 (87) 97 Nasal Cannula 2.00 04/23/19 01:55 94 Nasal Cannula 2.00 04/22/19 22:39 93 Nasal Cannula 2.00 04/22/19 20:30 Nasal Cannula 2.00 04/22/19 20:25 82 20 136/72 (93) 96 Nasal Cannula 2.00 04/22/19 18:00 36.9 78 18 135/70 (91) 97 Nasal Cannula 2.00 04/22/19 16:10 93 Nasal Cannula 2.00 04/22/19 10:03 96 157/70 (99) 04/22/19 09:00 Nasal Cannula 2.00 I & O0 04/23/19 07:00 Intake Total 2058 ml Output Total 1575 ml Balance 483 ml Capillary Refill : General Appearance: No Apparent Distress, Chronically ill, Cachetic, Other HEENT: PERRL/EOMI; No Scleral Icterus (L), No Scleral Icterus (R) Neck: Normal Inspection, Non Tender, Supple Respiratory: Lungs Clear, Normal Breath Sounds, No Accessory Muscle Use, No Respiratory Distress Cardiovascular: Regular Rate, Rhythm, Normal Peripheral Pulses, Systolic Murmur Peripheral Pulses: 2+ Dorsalis Pedis (R), 2+ Left Dors-Pedis (L), 2+ Radial Pulses (R), 2+ Radial Pulses (L) Gastrointestinal: normal bowel sounds, non tender, soft, other (pt has 2 working Ileostomies (pink and functional), woundvac over abdominal incision (no erythema or exudate)) Extremity: Normal Inspection, Non Tender, No Calf Tenderness, Pedal Edema (2+ edema on LLE, 0+ edema on RLE) Neurologic/Psychiatric: Alert, Normal Mood/Affect, Disoriented (nursing reports she becomes agitated at night), Other (RUE action tremor) Skin: Normal Color, Warm/Dry Lymphatic: No Adenopathy Results Lab Laboratory Tests 04/22/19 12:16: Glucometer 156H 04/22/19 16:55: Glucometer 118H 04/23/19 00:09: Glucometer 233H 04/23/19 05:15: Sodium Level 143, Potassium Level 4.8, Chloride Level 117H, Carbon Dioxide Level 18L, Anion Gap 8, Blood Urea Nitrogen 48H, Creatinine 0.68, Estimat Glomerular Filtration Rate > 60, BUN/Creatinine Ratio 71, Glucose Level 192H, Calcium Level 8.4L, Corrected Calcium 9.9, Phosphorus Level 3.3, Magnesium Level 1.7, Total Bilirubin 3.9H, Aspartate Amino Transf (AST/SGOT) 77H, Alanine Aminotransferase (ALT/SGPT) 73H, Alkaline Phosphatase 150H, Total Protein 6.3L, Albumin 2.1L 04/23/19 05:16: Glucometer 191H Assessment/Plan Assessment/Plan Assessment/Plan Wound VAC on abdominal wound Ileostomy x 2 Malnutrition Mild Dementia Abdominal incision and Wound VAC to be assessed today. TPN being weaned. Clinical Quality Measures DVT/VTE Risk/Contraindication: Risk Factor Score Per Nursin RFS Level Per Nursing on Admit: 4+=Very High JORDIN RAMSEY DO 04/23/19 7075: Subjective Subjective/Events-last exam ostomies functioning. wound vac being changed. some dry throat. no other complaints at this time denies n/v fever sweats chills shortness of breath or chest pain at this time. Objective Exam General Appearance: Chronically ill, Cachetic HEENT: PERRL/EOMI Neck: Non Tender, Supple Respiratory: Chest Non Tender, No Accessory Muscle Use, No Respiratory Distress Cardiovascular: Regular Rate, Rhythm Gastrointestinal: normal bowel sounds, non tender, soft, other (pt has 2 working Ileostomies (pink and functional), midline open wound majority with granulation tissue except on area left upper portion of wound that has slihgt rind to it) Neurologic/Psychiatric: Alert, Normal Mood/Affect Skin: Normal Color, Warm/Dry Lymphatic: No Adenopathy Assessment/Plan Assessment/Plan Assessment/Plan open abdominal wall with vicryl mesh granulating in and wound vac being utilized Ileostomy x 2 Malnutrition Mild Dementia patient with wound granulaitng in. there is an area of rind that may need debrided at later date, will watch this area to see if any improvement or worsening will follow on occasion, call if needed. Supervisory-Addendum Brief Verification & Attestation Participated in pt care: history, MDM, physical Personally performed: exam, history, MDM, supervision of care Care discussed with: Medical Student Procedures: n/a Results interpretation: Verified all documentation Verification and Attestation of Medical Student E/M Service A medical student performed and documented this service in my presence. I reviewed and verified all information documented by the medical student and made modifications to such information, when appropriate. I personally performed the physical exam and medical decision making. Jordin Ramsey, Apr 23, 2019,23:05 BECCA CHANDLER MED STUDENT Apr 23, 2019 08:10 JORDIN MARQUEZ DO Apr 23, 2019 23:05 POS
--- NOTE | 2019-04-23 08:26 | Cardiology Progress Note ---
Subjective Date Seen by Provider: Apr 23, 2019 Time Seen by Provider: 08:26 Subjective/Events-last exam Patient in bed, complaining of dry mouth and generalized fatigue. Denies any chest pain Review of Systems General: No Chills, No Night Sweats; Fatigue, Malaise; No Appetite, No Other HEENT: No Head Aches, No Visual Changes, No Eye Pain, No Ear Pain, No Dysphasia, No Sinus Congestion, No Post Nasal Drip, No Sore Throat, No Other Pulmonary: No Dyspnea, No Cough, No Pleuritic Chest Pain, No Other Cardiovascular: No: Chest Pain, Palpitations, Orthopnea, Paroxysmal Noc. Dyspnea, Edema, Lt Headedness, Other Objective-Cardiology Exam Last Set of Vital Signs Vital Signs 04/23/19 04/23/19 06:00 07:37 Temp 36.7 Pulse 83 Resp 16 B/P (MAP) 135/64 (87) Pulse Ox 95 O2 Delivery Nasal Cannula O2 Flow Rate 2.00 Capillary Refill : I&O Intake and Output 04/23/19 00:00 Intake Total 1988 ml Output Total 1425 ml Balance 563 ml Intake Oral 180 ml IV Total 1808 ml Output Urine Total 950 ml Stool Total 425 ml Other 50 ml General: Alert, Oriented X3, Cooperative HEENT: Atraumatic, PERRLA Neck: Supple, No JVD, No Thyromegaly Lungs: Clear to Auscultation, Normal Air Movement Heart: Regular Rate, Normal S1, Normal S2, No Murmurs Abdomen: Other (Wound vac in place ) Extremities: No Edema Skin: No Rashes, No Significant Lesion Neuro: Normal Speech, Cranial Nerves 3-12 NL Psych/Mental Status: Mental Status NL, Mood NL Results Lab Laboratory Tests 04/23/19 05:15 A/P-Cardiology Admission Diagnosis PAF CAD HTN HLP Assessment/Plan H/O multiple abdominal surgeries, had bowel resection and diverting ileostomy, last procedure was done on March 13, [address], followed by surgical services, recent transfer from [place] on 04-18-19 Paroxysmal atrial fibrillation, maintained on Lopressor, Eliquis. Continue to monitor. Labile hypertension, continue to monitor blood pressure. H/O acute renal insufficiency, continue to monitor renal function. Coronary artery disease - Most recent cardiac catheterization done April 2018 revealed mild ectasia in the proximal LAD with mild disease in the mid LAD, small vessel disease distally, mild ectasia in the proximal circumflex artery and 40-50 percent stenosis in the mid right coronary artery, nonobstructive disease History of colon cancer, history of colon resection and colostomy in the past, followed by Dr. Branham Hyperlipidemia- continue to monitor lipids as outpatient. Carotid artery stenosis, bilateral nonobstructive disease per carotid duplex done December 2018, continue to monitor. History of thyroid nodules noted on ultrasound, followed by Dr. Branham and Dr. Simmons Diabetes mellitus Family history of coronary artery disease. Obstructive sleep apnea, intolerance to CPAP History of appendectomy, kidney stones, hysterectomy. Breast biopsy. Anemia, continue to monitor, management per Dr Hand Patient was seen and evaluated with Natalie, examination performed, management plan was discussed, agree with the current scribed note, I made few changes to the note using Italic font Patient is laying down in bed, complaining of fatigue and weakness Lungs were clear to auscultation, heart is regular Continue on current medication and monitor blood pressure and lipids No changes from cardiology standpoint were recommended Clinical Quality Measures DVT/VTE Risk/Contraindication: Risk Factor Score Per Nursin RFS Level Per Nursing on Admit: 4+=Very High Supervisory-Addendum Brief Supervisory Addendum Participated in pt care: history, MDM, physical Personally performed: exam, history, MDM Care discussed with: NATALIE FLANAGAN Apr 23, 2019 08:26 NAYA DUARTE MD Apr 23, 2019 08:44 POS
[2019-04-23] MEDS ORDERED: CLONIDINE 0.1 MG TD SCH (09:00)
--- NOTE | 2019-04-23 09:03 | NUR ---
TPN stopped per orders.
[2019-04-23 09:12] VITALS: BP 149/62
[2019-04-23] MEDS: APIXABAN 2.5 MG (ELIQUIS) TABLET PO SCH ×2 (09:14→20:45)
[2019-04-23] MEDS: FAMOTIDINE 20 MG (PEPCID) TABLET PO SCH (09:14)
[2019-04-23] MEDS: meTOprolol TARTRATE 50 MG (LOPRESSOR) TAB PO SCH ×2 (09:14→20:45)
[2019-04-23] MEDS: OXYBUTYNIN (DITROPAN) 5 MG TAB PO SCH ×2 (09:14→20:45)
[2019-04-23] MEDS: ENALAPRIL 5 MG (VASOTEC) TAB PEG SCH (09:14)
[2019-04-23] MEDS: SERTRALINE 50 MG (ZOLOFT) TABLET PO SCH (09:14)
[2019-04-23] MEDS: NYSTATIN ORAL SUSP 5 ML UDC PO SCH ×4 (09:14→20:45)
[2019-04-23] MEDS: FLUTICASONE NASAL SPRAY (FLONASE) 16 GM BTL NS SCH (09:17)
[2019-04-23] MEDS: FENTANYL PATCH REMOVAL TP SCH (09:20)
[2019-04-23] MEDS: CLONIDINE PATCH REMOVAL TP SCH (09:20)
[2019-04-23] MEDS: fentaNYL PATCH 25 MCG (DURAGESIC) TD SCH (09:21)
[2019-04-23] MEDS: VISC LIDOCAINE/ANTACID/DIPHENHYDRAMINE 1:1:1 120 ML PO SCH ×12 (09:27→20:45)
--- NOTE | 2019-04-23 10:31 | PM&R Progress Note ---
Subjective HPI/CC On Admission Date Seen by Provider: Apr 23, 2019 Time Seen by Provider: 09:00 Subjective/Events-last exam Anxiousness noted. Very difficult to manage. Wound vac will be evaluated since she appears to be more confused today. Pt overall has a very long recovery expected and prognosis is guarded at best. LFTs are elevated due to TPN cholestasis. Blood sugars reviewed Cognition is an issue Conferred with RN Check meds and labs Reviewed therapy notes Long recovery expected Review of Systems General: Fatigue Neurological: Confusion Objective Exam Vital Signs Vital Signs Date Time Temp Pulse Resp B/P (MAP) Pulse Ox O2 Delivery O2 Flow Rate FiO2 04/23/19 18:00 36.6 78 18 130/66 (87) 96 Nasal Cannula 2.00 Capillary Refill : General Appearance: No Apparent Distress, Chronically ill, Cachetic, Other HEENT: PERRL/EOMI; No Scleral Icterus (L), No Scleral Icterus (R) Neck: Normal Inspection, Non Tender, Supple Respiratory: Lungs Clear, Normal Breath Sounds, No Accessory Muscle Use, No Respiratory Distress Cardiovascular: Regular Rate, Rhythm, Normal Peripheral Pulses, Systolic Murmur Gastrointestinal: Normal Bowel Sounds, No Organomegaly, No Pulsatile Mass, Non Tender, Soft Back: Normal Inspection, No CVA Tenderness, No Vertebral Tenderness Extremity: Normal Inspection, Non Tender, No Calf Tenderness, Pedal Edema (2+ edema on LLE, 0+ edema on RLE) Neurologic/Psychiatric: Alert, Normal Mood/Affect, Disoriented (nursing reports she becomes agitated at night), Other (RUE action tremor) Skin: Normal Color, Warm/Dry Lymphatic: No Adenopathy Results/Procedures Lab Laboratory Tests 04/23/19 05:15 Patient resulted labs reviewed. FIM Transfers Therapy Code Descriptions/Definitions Functional [place] Measure: 0=Not Assessed/NA 4=Minimal Assistance 1=Total Assistance 5=Supervision or Setup 2=Maximal Assistance 6=Modified [place] 3=Moderate Assistance 7=Complete IndependenceSCALE: Activities may be completed with or without assistive devices. 3-Ukshfjjenj-hjejssv completes the activity by him/herself with no assistance from a helper. 5-Set-up or Clean-up Assistance-helper sets up or cleans up; patient completes activity. [place] assists only prior to or following the activity. 4-Supervision or Touching Assistance-helper provides verbal cues and/or touching/steadying and/or contact guard assistance as patient completes activity. Assistance may be provided throughout the activity or intermittently. 3-Partial/Moderate Assistance-helper does LESS THAN HALF the effort. [place] lifts, holds or supports trunk or limbs, but provides less than half the effort. 2-Substantial/Maximal Assistance-helper does MORE THAN HALF the effort. [place] lifts or holds trunk or limbs and provides more than half the effort. 9-Yqqchafzl-ykxfeq does ALL the effort. Patient does none of the effort to complete the activity. Or, the assistance of 2 or more helpers is required for the patient to complete the activity. If activity was not attempted, code reason: 7-Patient Refused. 9-Not Applicable-not attempted and the patient did not perform the activity before the current illness, exacerbation or injury. 10-Not Attempted due to Environmental Limitations-(lack of equipment, weather restraints, etc.). 88-Not Attempted due to Medical Conditions or Safety Concerns. Roll Left to Right (QC): 1 Sit to Lying (QC): 1 Sit to Stand (QC): 1 Chair/Wbf-ov-Ztqpu Xfer(QC): 1 Car Transfer (QC): 88 Gait Training Does the Patient Walk?: No and Walking Goal NOT indicated Walk 10 feet (QC): 88 Walk 50 ft with 2 Turns(QC): 88 Walk 150 ft (QC): 88 Walking 10ft/uneven surface-QC: 88 Wheelchair Training Does the Pt Use a Wheelchair?: Yes Wheel 50 ft with 2 turns (QC): 88 Wheel 150 ft (QC): 88 Type of Wheelchair: Manual Stair Training 1 Step (curb) (QC): 88 4 Steps (QC): 88 12 Steps (QC): 88 Balance Picking up an Object (QC): 88 ADL-Treatment Eating (QC): 88 Oral Hygiene (QC): 5 Shower/Bathe Self (QC): 2 Upper Body Dressing (QC): 7 Lower Body Dressing (QC): 1 (Footwear (socks)) On/Off Footwear (QC): 1 Toileting Hygiene (QC): 1 (Seal of colostomy came slightly apart. Small leak noted. 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 Diabetes mellitus Low albumin TPN required History of respiratory failure Elevated liver enzymes due to cholestasis from TPN Anemia checking iron level Confusion with undercurrent of dementia Decubitus ulcers Tachycardia Plan: Inpatient rehab protocol TPN Wound care for pressure ulcers Wound vac eval Air bed TPN wean Monitor labs Iron infusions Chey lift and bedridden state Appreciate Cardiology for tachycardia management (1) Critical illness myopathy Status: Acute (2) Essential hypertension Status: Chronic (3) Abdominal pain (4) HLP (5) Headache Status: Acute (6) Perforated abdominal viscus Status: Acute (7) Postoperative abdominal pain Status: Acute (8) IDDM (insulin dependent diabetes mellitus) Status: Chronic YARON GALLAGHER DO Apr 23, 2019 10:31 POS
[2019-04-23] MEDS: cloNIDine 0.1 MG PATCH (CATAPRES TTS) TDSY TOP SCH (10:35)
--- NOTE | 2019-04-23 10:48 | Physical Therapy Daily Note ---
PT Daily Note-Current Subjective Encouragement required for pt to participate in therapy session and to continue with activities. Pt states she is very very tired and cannot stay awake or continue. Pain Numeric Pain Scale: 0-No Pain Appearance 1st morning session pt in bed before and after PT session with call light, phone and bedside table within reach. 2nd morning session pt in bed working with OT upon arrival. Co TX with OT parts of session. At end of session pt in bed with call light, phone and bedside table within reach. Pt requesting to lay back down, water and ice throughout tx session. Pt with eyes closed throughout most of tx session. Mental Status Patient Orientation: Person, Place, Situation Attachments: Colostomy/Ileostomy, Oxygen, Drains, Wing Catheter, Other-See Comments (wound vac) Transfers SCALE: Activities may be completed with or without assistive devices. 2-Bsuhjshkuy-zzpibqs completes the activity by him/herself with no assistance from a helper. 5-Set-up or Clean-up Assistance-helper sets up or cleans up; patient completes activity. [place] assists only prior to or following the activity. 4-Supervision or Touching Assistance-helper provides verbal cues and/or touching/steadying and/or contact guard assistance as patient completes activity. Assistance may be provided throughout the activity or intermittently. 3-Partial/Moderate Assistance-helper does LESS THAN HALF the effort. [place] lifts, holds or supports trunk or limbs, but provides less than half the effort. 2-Substantial/Maximal Assistance-helper does MORE THAN HALF the effort. [place] lifts or holds trunk or limbs and provides more than half the effort. 1-Mzmuuzszf-tbaanm does ALL the effort. Patient does none of the effort to complete the activity. Or, the assistance of 2 or more helpers is required for the patient to complete the activity. If activity was not attempted, code reason: 7-Patient Refused. 9-Not Applicable-not attempted and the patient did not perform the activity before the current illness, exacerbation or injury. 10-Not Attempted due to Environmental Limitations-(lack of equipment, weather restraints, etc.). 88-Not Attempted due to Medical Conditions or Safety Concerns. Roll Left & Right (QC): 2 (A of 2) Sit to Lying (QC): 2 (A of 2) Lying to Sitting/Side of Bed(Q: 2 (A of 2) Exercises Supine Ex: Ankle pumps, Heel Slides, Short Arc Quads, Straight leg raise, Hip abd/add Supine Reps: 10 (x2) Seated Therapy Exercises: Biceps, Ankle pumps, Shoulder Flex, Long arc quads (sitting EOB), Hip flexion, Kicking activity, Reaching activity (minimal effort with reaching due to pt states she cannot with her gut), Hip abd/add Seated Reps: 10 (x3 sets, with bed in sitting position, (+)neck ROM all planes) Treatments bed mobility, activity tolerance, strengthening, ROM, sitting EOB x5 min min A for support, strength, functional mobility PT/OT co treating this session as pt. was lethargic and somewhat confused. Transferred pt. supine-sit with max x 2. Pt. retropulsive at first, but able to maintain sitting balance after cues and encouragement. PT sat behind pt. to facilitate core strength and sitting balance while OT sat in front of pt. and encouraged hand placement, foot placement on floor. Sat with CGA/min assist approximately 5 minutes. Pt. began to lay self down and would not stay up. OT/PT performed bed mobility with dependent assist x 2. Bed placed in chair position. OT would encourage UE exercises and then PT would encourage LE exercises. Pt. would participate for a little bit but would stop the exercise. Confused at times and reported seeing people in her room. Nursing notified. Pt. declined getting to reclining chair with glenroy. Transferred bed again into flat position and practiced rolling side-side. Max x 2 needed. Pt. had difficulty with further participation. All needs met and PT working with pt. on LE ex's and positioning after OT left room. Assessment pt report of extremely tired and weak, minimal effort put forth to perform activities, refusing to get up out of bed into recliner, barely tolerating sitting EOB x5 min due to fatigue and pain PT Short Term Goals Short Term Goals Time Frame: Apr 25, 2019 Roll Left & Right: 3 (mod A) Sit to lyin (modA) Lying to sitting on side of be: 3 (modA) Sit to stand: 3 (modA) Chair/iwa-uy-oxpja transfer: 3 (modA) PT Retirement Goals Shirt Maker Goals PT Shirt Maker Goals Time Frame: May 09, 2019 Roll Left & Right (QC): 3 (Chet) Sit to Lying (QC): 3 (Chet) Lying-Sitting on Side/Bed(QC): 3 (Chet) Sit to Stand (QC): 3 (Chet) Chair/Lsi-bj-Xpzys Xfer(QC): 3 (Chet) Toilet Transfer (QC): 3 (Chet) Car Transfer (QC): 3 (Chet) Does the Patient Walk: No and Walking Goal NOT indicated Walk 10 feet (QC): 88 Walk 50ft with 2 Turns (QC): 88 Walk 150 ft (QC): 88 Walking 10ft on Uneven Surface: 88 1 Step (curb) (QC): 88 4 Steps (QC): 88 12 Steps (QC): 88 Picking up an Object (QC): 88 Does the Pt use WC or Scooter?: Yes Wheel 50 feet with 2 turns (QC: 4 (SBA) Type: Manual Wheel 150 feet: 4 (SBA) Type: Manual PT Plan Treatment/Plan Treatment Plan: Continue Plan of Care Treatment Plan: Bed Mobility, Concurrent Therapy, Education, Functional Activity José, Functional Strength, Group Therapy, Gait, Safety, Therapeutic Exercise, Transfers Treatment Duration: May 09, 2019 Frequency: At least 5 of 7 days/Wk (IRF) Estimated Hrs Per Day: 1.5 hours per day Patient and/or Family Agrees t: Yes Safety Risks/Education Patient Education: Transfer Techniques, Reviewed Precautions, Correct Positioning, Safety Issues Teaching Recipient: Patient Teaching Methods: Discussion Response to Teaching: Reinforcement Needed Time/GCodes Time In: 920 (1015) Time Out: 930 (1100) Total Billed Treatment Time: 10 (45) Total Billed Treatment 1st morning session: 1 visit, EX x10 min 2nd morning session: 1 visit, EX x15 min, FA x30 min RYLEE HOWE MARINE UNDERWRITER Apr 23, 2019 10:48 POS
--- NOTE | 2019-04-23 11:42 | NUR ---
DAY SURG NOTIFIED OF RED LUMEN ON PICC LINE NOT FLUSHING. MEDICAL TRANSCRIPTION STATES THAT RN WILL BE UP TO SEE PATIENT "LATER TODAY".
[2019-04-23 11:50] VITALS: BP 117/69
--- NOTE | 2019-04-23 11:50 | NUR ---
DR. GALLAGHER INFORMED OF THERAPY REPORTS OF INCREASED CONFUSION AND LETHARGY TODAY. VSS. TEMP 36.8, BP 117/69, HR 79, OXYGEN IS 97% ON 2 LITERS. NO NEW ORDER REC'D.
--- NOTE | 2019-04-23 13:31 | Occupational Ther Daily Note ---
OT Current Status-Daily Note Subjective Pt. indicates pain in abdomen area with movement, but can't state the pain level or what specifically hurts. Appearance Pt. is in bed. Lethargic. Requires cues to participate. Mental Status/Objective Patient Orientation: Unable to Assess Attachments: Colostomy/Ileostomy, IV, Oxygen ADL-Treatment Therapy Code Descriptions/Definitions Functional [place] Measure: 0=Not Assessed/NA 4=Minimal Assistance 1=Total Assistance 5=Supervision or Setup 2=Maximal Assistance 6=Modified [place] 3=Moderate Assistance 7=Complete IndependenceSCALE: Activities may be completed with or without assistive devices. 4-Sbwujeohit-tmnwlej completes the activity by him/herself with no assistance from a helper. 5-Set-up or Clean-up Assistance-helper sets up or cleans up; patient completes activity. [place] assists only prior to or following the activity. 4-Supervision or Touching Assistance-helper provides verbal cues and/or touching/steadying and/or contact guard assistance as patient completes activity. Assistance may be provided throughout the activity or intermittently. 3-Partial/Moderate Assistance-helper does LESS THAN HALF the effort. [place] lifts, holds or supports trunk or limbs, but provides less than half the effort. 2-Substantial/Maximal Assistance-helper does MORE THAN HALF the effort. [place] lifts or holds trunk or limbs and provides more than half the effort. 1-Hlxbwvyiu-xuhhoh does ALL the effort. Patient does none of the effort to complete the activity. Or, the assistance of 2 or more helpers is required for the patient to complete the activity. If activity was not attempted, code reason: 7-Patient Refused. 9-Not Applicable-not attempted and the patient did not perform the activity before the current illness, exacerbation or injury. 10-Not Attempted due to Environmental Limitations-(lack of equipment, weather restraints, etc.). 88-Not Attempted due to Medical Conditions or Safety Concerns. Oral Hygiene (QC): 4 (SBA to swab mouth with sponge swabs.) Shower/Bathe Self (QC): 2 (Pt. washed her face and her upper chest/arms. Cues required to finish this task. OT washed all other parts, including hair with shampoo cap.) Toileting Hygiene (QC): 1 Footwear (1) Slipper socks Other Treatment OT began treatment alone with pt., to encourage her to bathe self. Completed sponge bath at bed level with max assist needed. PT came in to assist with co- treatment, as pt. was lethargic and somewhat confused. Transferred pt. supine- sit with max x 2. Pt. retropulsive at first, but able to maintain sitting balance after cues and encouragement. PT sat behind pt. to facilitate core strength and sitting balance while OT sat in front of pt. and encouraged hand placement, foot placement on floor. Sat with CGA/min assist approximately 5 minutes. Pt. began to lay self down and would not stay up. OT/PT performed bed mobility with dependent assist x 2. Bed placed in chair position. OT would encourage UE exercises and then PT would encourage LE exercises. Pt. would participate for a little bit but would stop the exercise. Confused at times and reported seeing people in her room. Nursing notified. Pt. declined getting to reclining chair with glenroy. Transferred bed again into flat position and practiced rolling side-side. Max x 2 needed. Pt. had difficulty with further participation. All needs met and PT working with pt. when OT left room. Education OT Patient Education: Correct positioning, Exercise program, Modified ADL techniques, Progress toward Goal/Update tx plan, Purpose of tx/functional activities, Reviewed precautions, Rehab process, Transfer techniques Teaching Recipient: Patient Teaching Methods: Demonstration, Discussion Response to Teaching: Verbalize Understanding, Return Demonstration OT Short Term Goals Short Term Goals Time Frame: May 02, 2019 Eatin Oral hygiene: 4 Toileting hygiene: 3 Shower/bathe self: 3 Upper body dressin Lower body dressin Putting on/taking off footwear: 3 OT Stock And Station Agent Goals Jail Goals Time Frame: May 16, 2019 Eating (QC): 6 Oral Hygiene (QC): 6 Toileting Hygiene (QC): 5 Shower/Bathe Self (QC): 4 Upper Body Dressing (QC): 5 Lower Body Dressing (QC): 5 On/Off Footwear (QC): 5 Additional Goals: 1-Demonstrate ADL Tasks, 2-Verbalize Understanding, 3- ImproveStrength/José 1=Demonstrate adherence to instructed precautions during ADL tasks. 2=Patient will verbalize/demonstrate understanding of assistive devices/modifications for ADL. 3=Patient will improve strength/tolerance for activity to enable patient to perform ADL's. OT Education/Plan Problem List/Assessment Assessment: Decreased Activ Tolerance, Decreased UE Strength, Dependent Transfers, Impaired Bed Mobility, Impaired Cognition, Impaired Coordination, Impaired Funct Balance, Impaired I ADL's, Impaired Self-Care Skills, Restricted Funct UE ROM Discharge Recommendations Plan/Recommendations: Continue POC Therapy Discharge Recommendati: 24 Hour Supervision Treatment Plan/Plan of Care Treatment,Training & Education: Yes Patient would benefit from OT for education, treatment and training to promote independence in ADL's, mobility, safety and/or upper extremity function for ADL's. Plan of Care: ADL Retraining, Caregiver Training, Functional Mobility, Group Exercise/Act as Ind, UE Funct Exercise/Act Treatment Duration: May 16, 2019 Frequency: At least 5 of 7 days/Wk (IRF) Estimated Hrs Per Day: 1.5 hours per day Agreement: Yes Rehab Potential: Fair Time/GCodes Start Time: 09:45 Stop Time: 10:40 Total Time Billed (hr/min): 55 Billed Treatment Time 1, ADL x 45minutes, FA x 10minutes HEMANT MERCEDES OT Apr 23, 2019 13:31 POS
--- NOTE | 2019-04-23 14:00 | NUR ---
NATALIYA UNIX MANAGER, HERE FOR WOUND VAC CHANGE. Addendum: 04/23/19 at [address] RAMSEY IN ROOM TO ASSESS WOUND BEFORE WOUND VAC REPLACED.
--- NOTE | 2019-04-23 14:08 | Occupational Ther Daily Note ---
OT Current Status-Daily Note Subjective No pain reported. Appearance Pt. in bed. More alert. Daughter in room. ADL-Treatment Therapy Code Descriptions/Definitions Functional [place] Measure: 0=Not Assessed/NA 4=Minimal Assistance 1=Total Assistance 5=Supervision or Setup 2=Maximal Assistance 6=Modified [place] 3=Moderate Assistance 7=Complete IndependenceSCALE: Activities may be completed with or without assistive devices. 3-Dkqsegepsc-vpxkqcr completes the activity by him/herself with no assistance from a helper. 5-Set-up or Clean-up Assistance-helper sets up or cleans up; patient completes activity. [place] assists only prior to or following the activity. 4-Supervision or Touching Assistance-helper provides verbal cues and/or touching/steadying and/or contact guard assistance as patient completes activity. Assistance may be provided throughout the activity or intermittently. 3-Partial/Moderate Assistance-helper does LESS THAN HALF the effort. [place] lifts, holds or supports trunk or limbs, but provides less than half the effort. 2-Substantial/Maximal Assistance-helper does MORE THAN HALF the effort. [place] lifts or holds trunk or limbs and provides more than half the effort. 8-Iixvjtcsh-ftzowx does ALL the effort. Patient does none of the effort to complete the activity. Or, the assistance of 2 or more helpers is required for the patient to complete the activity. If activity was not attempted, code reason: 7-Patient Refused. 9-Not Applicable-not attempted and the patient did not perform the activity before the current illness, exacerbation or injury. 10-Not Attempted due to Environmental Limitations-(lack of equipment, weather restraints, etc.). 88-Not Attempted due to Medical Conditions or Safety Concerns. Other Treatment Daughter in room. Pt. states that she slept well last night, even though she told this therapist earlier that she did not sleep. Daughter reports that pt. actually called her at 2:30 a.m and was agitated. She believed that she was given something to sedate her. Talked with daughter about pt. possibly getting something to help her sleep earlier in night. Reported this to nursing. Pt. completed fine motor task with reaching from bed level with grasping checker cashier pieces. Completed bilateral shoulder flexion exercises to 90 degrees x 10 reps. Also completed supination/pronation exercises x 10 reps, as well as hand squeezes x 10 reps. Pt. began to become tired. Daughter states that pt. likes to play solitaire. OT brought in new set of cards for pt. All needs met in bed. Education OT Patient Education: Correct positioning, Exercise program, Modified ADL techniques, Progress toward Goal/Update tx plan, Purpose of tx/functional activities, Reviewed precautions, Rehab process, Transfer techniques Teaching Recipient: Patient Teaching Methods: Demonstration, Discussion Response to Teaching: Verbalize Understanding, Return Demonstration OT Short Term Goals Short Term Goals Time Frame: May 02, 2019 Eatin Oral hygiene: 4 Toileting hygiene: 3 Shower/bathe self: 3 Upper body dressin Lower body dressin Putting on/taking off footwear: 3 OT Screw Driver Operator Goals Screw Driver Operator Goals Time Frame: May 16, 2019 Eating (QC): 6 Oral Hygiene (QC): 6 Toileting Hygiene (QC): 5 Shower/Bathe Self (QC): 4 Upper Body Dressing (QC): 5 Lower Body Dressing (QC): 5 On/Off Footwear (QC): 5 Additional Goals: 1-Demonstrate ADL Tasks, 2-Verbalize Understanding, 3- ImproveStrength/José 1=Demonstrate adherence to instructed precautions during ADL tasks. 2=Patient will verbalize/demonstrate understanding of assistive devices/modifications for ADL. 3=Patient will improve strength/tolerance for activity to enable patient to perform ADL's. OT Education/Plan Problem List/Assessment Assessment: Decreased Activ Tolerance, Decreased UE Strength, Dependent Transfers, Impaired Bed Mobility, Impaired Cognition, Impaired Coordination, Impaired Funct Balance, Impaired I ADL's, Impaired Self-Care Skills, Restricted Funct UE ROM Discharge Recommendations Plan/Recommendations: Continue POC Therapy Discharge Recommendati: 24 Hour Supervision, Post Acute OT Treatment Plan/Plan of Care Treatment,Training & Education: Yes Patient would benefit from OT for education, treatment and training to promote independence in ADL's, mobility, safety and/or upper extremity function for ADL's. Plan of Care: ADL Retraining, Caregiver Training, Functional Mobility, Group Exercise/Act as Ind, UE Funct Exercise/Act Treatment Duration: May 16, 2019 Frequency: At least 5 of 7 days/Wk (IRF) Estimated Hrs Per Day: 1.5 hours per day Agreement: Yes Rehab Potential: Fair Time/GCodes Start Time: 13:35 Stop Time: 13:50 Total Time Billed (hr/min): 15 Billed Treatment Time 1, Ex x 20minutes HEMANT MERCEDES OT Apr 23, 2019 14:08 POS
--- NOTE | 2019-04-23 14:29 | NUR ---
NICOLE PICC RN, HERE TO FIX PICC LINE.
--- NOTE | 2019-04-23 14:58 | Physical Therapy Progress Note ---
Therapy Progress Note Per Nurse, Dr Cohen is seeing pt currently and abdomen is open. Wound Care will see pt after Dr is finished. Pt will not get the additional 20m needed this afternoon. PT will try again tomorrow for Rx. No Rx rendered at this time ([id number]). BRITTANY HARTMAN STERILE PROCESSING TECH Apr 23, 2019 14:58 POS
--- NOTE | 2019-04-23 15:17 | Speech Therapy Daily Note ---
Speech Daily Progress Note Subjective Date Seen by Provider: Apr 23, 2019 Time Seen by Provider: 00:30 Patient was resting in bed. She stated she had had a rough morning. Objective Patient completed a series of memory tasks related to her daily routine/needs at 80% with 20% cuing. Assessment Assessment Current Status: Fair Progress Treatment Plan Continue Plan of Care Speech Short Term Goals Short Term Goals Short Term Goals 1) Patient will complete memory tasks related to her daily needs at 90% or greater with minimal cues. 2) Patient will complete problem solving tasks related to her daily needs at 90% or greater with minimal cues. 3) Patient will complete safety awareness tasks related to her daily needs at 90% or greater with minimal cues. Speech Group Home Goals Web Site Project Manager Goals Patient will improve cognitive-communication necessary for safety and daily living tasks with minimal assist. Speech-Plan Patient/Family Goals Patient/Family Goals: Patient plans on returning home where she lives with her daughter. Treatment Plan Speech Therapy Treatment Plan: Continue Plan of Care Patient is making some progress. Treatment Duration: May 03, 2019 Frequency: 5 times per week Estimated Hrs Per Day: .5 hour per day Rehab Potential: Fair Barriers to Learning: Patient has mild cognitive deficits Pt/Family Agrees to Plan: Yes Safety Risks/Education Teaching Recipient: Patient, Family Teaching Methods: Demonstration, Discussion Response to Teaching: Verbalize Understanding, Return Demonstration Education Topics Provided: Continued communication of her wants/needs. Time Speech Therapy Time In: 13:00 Speech Therapy Time Out: 13:30 Total Billed Time: 30 Billed Treatment Time 1ALFIE [address] Apr 23, 2019 15:17 POS
--- NOTE | 2019-04-23 15:38 | Physical Therapy Daily Note ---
PT Daily Note-Current Subjective Patient reluctantly agrees to PT. Family present. Transfers SCALE: Activities may be completed with or without assistive devices. 1-Ixalcyxkvj-crgctpx completes the activity by him/herself with no assistance from a helper. 5-Set-up or Clean-up Assistance-helper sets up or cleans up; patient completes activity. [place] assists only prior to or following the activity. 4-Supervision or Touching Assistance-helper provides verbal cues and/or touching/steadying and/or contact guard assistance as patient completes activity. Assistance may be provided throughout the activity or intermittently. 3-Partial/Moderate Assistance-helper does LESS THAN HALF the effort. [place] lifts, holds or supports trunk or limbs, but provides less than half the effort. 2-Substantial/Maximal Assistance-helper does MORE THAN HALF the effort. [place] lifts or holds trunk or limbs and provides more than half the effort. 9-Umdxakqko-qdlkia does ALL the effort. Patient does none of the effort to complete the activity. Or, the assistance of 2 or more helpers is required for the patient to complete the activity. If activity was not attempted, code reason: 7-Patient Refused. 9-Not Applicable-not attempted and the patient did not perform the activity before the current illness, exacerbation or injury. 10-Not Attempted due to Environmental Limitations-(lack of equipment, weather restraints, etc.). 88-Not Attempted due to Medical Conditions or Safety Concerns. Exercises Supine Ex: Ankle pumps, Quad Set, Heel Slides, Straight leg raise, Hip abd/add Supine Reps: 15 (3 sets AAROM bilaterally) Assessment Patient very fatigued this p.m. PT to increase activity as tolerated by patient. PT Short Term Goals Short Term Goals Time Frame: Apr 25, 2019 Roll Left & Right: 3 (mod A) Sit to lyin (modA) Lying to sitting on side of be: 3 (modA) Sit to stand: 3 (modA) Chair/fdb-dt-skpfv transfer: 3 (modA) PT Spray Drier Operator Goals Spray Drier Operator Goals PT Spray Drier Operator Goals Time Frame: May 09, 2019 Roll Left & Right (QC): 3 (Chet) Sit to Lying (QC): 3 (Chet) Lying-Sitting on Side/Bed(QC): 3 (Chet) Sit to Stand (QC): 3 (Chet) Chair/Gxp-vx-Jzgwv Xfer(QC): 3 (Chet) Toilet Transfer (QC): 3 (Chet) Car Transfer (QC): 3 (Chet) Does the Patient Walk: No and Walking Goal NOT indicated Walk 10 feet (QC): 88 Walk 50ft with 2 Turns (QC): 88 Walk 150 ft (QC): 88 Walking 10ft on Uneven Surface: 88 1 Step (curb) (QC): 88 4 Steps (QC): 88 12 Steps (QC): 88 Picking up an Object (QC): 88 Does the Pt use WC or Scooter?: Yes Wheel 50 feet with 2 turns (QC: 4 (SBA) Type: Manual Wheel 150 feet: 4 (SBA) Type: Manual PT Plan Treatment/Plan Treatment Plan: Continue Plan of Care Treatment Plan: Bed Mobility, Concurrent Therapy, Education, Functional Activity José, Functional Strength, Group Therapy, Gait, Safety, Therapeutic Exercise, Transfers Treatment Duration: May 09, 2019 Frequency: At least 5 of 7 days/Wk (IRF) Estimated Hrs Per Day: 1.5 hours per day Patient and/or Family Agrees t: Yes Time/GCodes Time In: 1515 Time Out: 1535 Total Billed Treatment Time: 20 Total Billed Treatment 1 visit EX 20 min CHIDI AMAYA PT Apr 23, 2019 15:38 POS
--- NOTE | 2019-04-23 15:42 | NUR ---
AFTER AN AFTERNOON NAP, PATIENT STATES THAT SHE FEELS MUCH BETTER THAN SHE DID THIS AM.
[2019-04-23] MEDS ORDERED: SODIUM ACETATE IV SCH ×11 (17:00)
[2019-04-23] MEDS ORDERED: POTASSIUM ACETATE IV SCH ×11 (17:00)
[2019-04-23] MEDS ORDERED: [UNRECOGNIZED DRUG - OTHER] IV SCH ×11 (17:00)
[2019-04-23 18:00] VITALS: BP 130/66
--- NOTE | 2019-04-23 19:12 | NUR ---
bedside report received from SHANI VELASCO, assume care of pt
--- NOTE | 2019-04-23 19:35 | NUR ---
TPN INCREASED TO 120 MLS/HR PER ORDERS.
[2019-04-23] MEDS: hydrOXYzine (VISTARIL/ATARAX) 25 MG capsule/tablet PO PRN (20:49)
--- NOTE | 2019-04-23 20:49 | NUR ---
meds taken crushed in vanilla pudding, v/s 79-18-96%-149/67, anxious Vistaril 12.5 mg crushed in vanilla pudding
--- NOTE | 2019-04-23 21:30 | NUR ---
resting quietly in bed, pain level 0/10 on flacc scale
--- NOTE | 2019-04-23 22:00 | NUR ---
tried to flush red port unable to flush port, will have picc line nurse come & evaluate again tomorrow
[2019-04-24] MEDS: RT-ALBUTEROL/IPRATROPIUM 3 ML (DUONEB) VIAL IH SCH ×3 (03:03→12:19)
[2019-04-24 05:45] VITALS: BP 135/63
[2019-04-24] MEDS: CATHETER FLUSH 10 ML SYR IV SCH ×3 (06:00→22:45)
[2019-04-24] MEDS: inSUlin ASPART (NovoLOG) 1 UNIT/0.01 ML (CHARGE PER UNIT) SC SCH ×4 (06:00→18:18)
[2019-04-24 06:38] LABS: ALANINE AMINOTRANSFERASE 70 U/L (0-55); ALKALINE PHOSPHATASE 138 U/L (40-136); BILIRUBIN,TOTAL 3.7 MG/DL (0.1-1.0); BUN/CREATININE RATIO 82; CALCIUM 8.6 MG/DL (8.5-10.1); CARBON DIOXIDE 20 MMOL/L (21-32); CHLORIDE 115 MMOL/L (98-107); CREATININE SERUM 0.65 MG/DL (0.60-1.30); GFR ESTIMATED > 60; GLUCOSE 199 MG/DL (70-105); MAGNESIUM 1.9 MG/DL (1.6-2.4); PHOSPHORUS 3.8 MG/DL (2.3-4.7); POTASSIUM 4.9 MMOL/L (3.6-5.0); SODIUM 143 MMOL/L (135-145)
--- NOTE | 2019-04-24 08:52 | Progress Note - Surgery ---
Subjective Date Seen by a Provider: Apr 24, 2019 Time Seen by a Provider: 07:45 Subjective/Events-last exam Since yesterday Ms. Samson reports feeling about the same, feels less fatigued. No new complaints. Her left ostomy seems to be leaking. Both ileostomies are productive, as is woundvac over abdominal wound. She has no complaints about ileostomies or woundvac, they do not have any erythema or drainage. Review of Systems General: Chills (cold all the time, but reports having chills every night at 3am); No Other (denies fever) HEENT: No Sinus Congestion, No Sore Throat Pulmonary: No Dyspnea, No Cough Cardiovascular: Edema; No: Chest Pain, Palpitations Gastrointestinal: Abdominal Pain (when she coughs frequently); No: Nausea, Vomiting Genitourinary: No Dysuria, No Hematuria Neurological: Confusion (she doesn't feel confused, but reports her daughter tells her she is confused); No: Numbness Objective Exam Vital Signs Date Time Temp Pulse Resp B/P (MAP) Pulse Ox O2 Delivery O2 Flow Rate FiO2 04/24/19 05:45 36.9 80 18 135/63 (87) 96 Nasal Cannula 2.00 04/23/19 22:00 94 Nasal Cannula 2.00 04/23/19 20:50 Nasal Cannula 2.00 04/23/19 18:00 36.6 78 18 130/66 (87) 96 Nasal Cannula 2.00 04/23/19 14:38 94 Nasal Cannula 2.00 04/23/19 11:50 36.8 79 18 117/69 (85) 97 Nasal Cannula 2.00 04/23/19 09:12 96 149/62 (91) 98 Nasal Cannula 2.00 04/23/19 09:00 Nasal Cannula 2.00 I & O 04/24/19 07:00 Intake Total 75 ml Output Total 1325 ml Balance -1250 ml Capillary Refill : General Appearance: No Apparent Distress, Chronically ill, Cachetic HEENT: PERRL/EOMI; No Pale Conjunctivae (L), No Pale Conjunctivae (R), No Scleral Icterus (L), No Scleral Icterus (R) Neck: Non Tender, Supple Respiratory: Chest Non Tender, Lungs Clear, Normal Breath Sounds, No Accessory Muscle Use, No Respiratory Distress Cardiovascular: Regular Rate, Rhythm, Normal Peripheral Pulses, Systolic Murmur Peripheral Pulses: 2+ Dorsalis Pedis (R), 2+ Left Dors-Pedis (L), 2+ Radial Pulses (R), 2+ Radial Pulses (L) Gastrointestinal: normal bowel sounds, non tender, soft, other (pt has 2 working Ileostomies (pink and functional), midline open wound majority with granulation tissue except on area left upper portion of wound that has slihgt rind to it) Extremity: Normal Inspection, Non Tender, No Calf Tenderness, Pedal Edema (2+ edema on LLE, 1+ edema on RLE) Neurologic/Psychiatric: Alert, Normal Mood/Affect Skin: Normal Color, Warm/Dry Lymphatic: No Adenopathy Results Lab Laboratory Tests 04/23/19 11:44: Glucometer 174H 04/23/19 16:24: Glucometer 129H 04/24/19 00:00: Glucometer 176H 04/24/19 05:47: Glucometer 200H 04/24/19 06:00: Sodium Level 143, Potassium Level 4.9, Chloride Level 115H, Carbon Dioxide Level 20L, Anion Gap 8, Blood Urea Nitrogen 53H, Creatinine 0.65, Estimat Glomerular Filtration Rate > 60, BUN/Creatinine Ratio 82, Glucose Level 199H, Calcium Level 8.6, Corrected Calcium 10.2H, Phosphorus Level 3.8, Magnesium Level 1.9, Total Bilirubin 3.7H, Aspartate Amino Transf (AST/SGOT) 75H, Alanine Aminotransferase (ALT/SGPT) 70H, Alkaline Phosphatase 138H, Total Protein 6.0L, Albumin 2.0L Assessment/Plan Assessment/Plan Assessment/Plan open abdominal wall with vicryl mesh and wound vac Ileostomy x 2 Malnutrition Mild Dementia Wound granulating in at last visit, area of rind that may need debriding at last check. Continue to follow healing of wound, monitor for changes in progress. Clinical Quality Measures DVT/VTE Risk/Contraindication: Risk Factor Score Per Nursin RFS Level Per Nursing on Admit: 4+=Very High BECCA CHANDLER MED STUDENT Apr 24, 2019 08:52
--- NOTE | 2019-04-24 10:00 | NUR ---
PICC nurse assessed PICC line. Purple line flushes and pulls blood. Red line is a hard push, but will flush and pulls blood after a 20 CC flush. PICC nurse recommends to flush lines multiple times throughout shift.
[2019-04-24] MEDS: NYSTATIN ORAL SUSP 5 ML UDC PO SCH ×4 (10:04→22:45)
[2019-04-24] MEDS: FLUTICASONE NASAL SPRAY (FLONASE) 16 GM BTL NS SCH (10:05)
[2019-04-24] MEDS: FAMOTIDINE 20 MG (PEPCID) TABLET PO SCH (10:06)
[2019-04-24] MEDS: SERTRALINE 50 MG (ZOLOFT) TABLET PO SCH (10:06)
[2019-04-24] MEDS: APIXABAN 2.5 MG (ELIQUIS) TABLET PO SCH ×2 (10:06→22:45)
[2019-04-24] MEDS: VISC LIDOCAINE/ANTACID/DIPHENHYDRAMINE 1:1:1 120 ML PO SCH ×12 (10:06→22:45)
[2019-04-24] MEDS: meTOprolol TARTRATE 50 MG (LOPRESSOR) TAB PO SCH ×2 (10:06→22:44)
[2019-04-24] MEDS: ENALAPRIL 5 MG (VASOTEC) TAB PEG SCH (10:06)
[2019-04-24] MEDS: OXYBUTYNIN (DITROPAN) 5 MG TAB PO SCH ×2 (10:06→22:44)
[2019-04-24 10:08] VITALS: BP 148/69
--- NOTE | 2019-04-24 10:08 | Occupational Ther Daily Note ---
OT Current Status-Daily Note Subjective Pt grimaces with pain when she is moved, but does not state a pain level. Reports having no pain when lying still in bed. Appearance Pt. in bed. Agrees to participate. Mental Status/Objective Patient Orientation: Person Attachments: Colostomy/Ileostomy, Wing Catheter, IV ADL-Treatment Therapy Code Descriptions/Definitions Functional [place] Measure: 0=Not Assessed/NA 4=Minimal Assistance 1=Total Assistance 5=Supervision or Setup 2=Maximal Assistance 6=Modified [place] 3=Moderate Assistance 7=Complete IndependenceSCALE: Activities may be completed with or without assistive devices. 0-Kmsgaewzxu-xmpeeqe completes the activity by him/herself with no assistance from a helper. 5-Set-up or Clean-up Assistance-helper sets up or cleans up; patient completes activity. [place] assists only prior to or following the activity. 4-Supervision or Touching Assistance-helper provides verbal cues and/or touching/steadying and/or contact guard assistance as patient completes activity. Assistance may be provided throughout the activity or intermittently. 3-Partial/Moderate Assistance-helper does LESS THAN HALF the effort. [place] lifts, holds or supports trunk or limbs, but provides less than half the effort. 2-Substantial/Maximal Assistance-helper does MORE THAN HALF the effort. [place] lifts or holds trunk or limbs and provides more than half the effort. 2-Lkhzbbzhg-glqslj does ALL the effort. Patient does none of the effort to complete the activity. Or, the assistance of 2 or more helpers is required for the patient to complete the activity. If activity was not attempted, code reason: 7-Patient Refused. 9-Not Applicable-not attempted and the patient did not perform the activity before the current illness, exacerbation or injury. 10-Not Attempted due to Environmental Limitations-(lack of equipment, weather restraints, etc.). 88-Not Attempted due to Medical Conditions or Safety Concerns. Eating (QC): 88 (Pt. currently not allowed to eat. Is eating ice chips with assist at times to adequately spoon them to her mouth.) Oral Hygiene (QC): 3 (Pt. does not have her dentures. Agrees to swab mouth out with mouth swab. Able to do this with set up. Pt. asks for chapstick. OT puts some lubricating jelly on her finger to put on her lips. Pt. overshoots/undershoots. States that she can't find her lips. OT assists her with this.) Shower/Bathe Self (QC): 2 (Pt. washes face at bed level and under arms/upper chest. OT goes over chest/arms for her to bathe more thoroughly. OT completes full bath otherwise at bed level. Max to roll side to side. ) Toileting Hygiene (QC): 1 Footwear (1) Other Treatment OT assists pt at bed level with sponge bath. Pt. requires cues throughout to participate, as she becomes tired. After bath, OT applies lotion to bilateral legs. Assisted pt.to roll to left side for increased comfort and pressure relief. OT attempted to engage pt. in cleansing abdominal area but pt. is adamant that she does not want to see it or touch it. OT does this for her. After this, OT worked on cognitive task with pt. Worked on naming/categorizing, etc. Pt. had difficulty staying awake at this point and required cues. All needs met. Education OT Patient Education: Correct positioning, Modified ADL techniques, Progress toward Goal/Update tx plan, Purpose of tx/functional activities, Reviewed precautions, Rehab process, Transfer techniques Teaching Recipient: Patient Teaching Methods: Demonstration, Discussion Response to Teaching: Verbalize Understanding, Return Demonstration OT Short Term Goals Short Term Goals Time Frame: May 02, 2019 Eatin Oral hygiene: 4 Toileting hygiene: 3 Shower/bathe self: 3 Upper body dressin Lower body dressin Putting on/taking off footwear: 3 OT Emergency Services Professional Goals Detention Goals Time Frame: May 16, 2019 Eating (QC): 6 Oral Hygiene (QC): 6 Toileting Hygiene (QC): 5 Shower/Bathe Self (QC): 4 Upper Body Dressing (QC): 5 Lower Body Dressing (QC): 5 On/Off Footwear (QC): 5 Additional Goals: 1-Demonstrate ADL Tasks, 2-Verbalize Understanding, 3- ImproveStrength/José 1=Demonstrate adherence to instructed precautions during ADL tasks. 2=Patient will verbalize/demonstrate understanding of assistive devic es/modifications for ADL. 3=Patient will improve strength/tolerance for activity to enable patient to perform ADL's. OT Education/Plan Problem List/Assessment Assessment: Decreased Activ Tolerance, Dependent Transfers, Impaired Bed Mobility, Impaired Funct Balance, Impaired I ADL's, Impaired Self-Care Skills, Restricted Funct UE ROM Discharge Recommendations Plan/Recommendations: Continue POC Therapy Discharge Recommendati: 24 Hour Supervision, Post Acute OT Treatment Plan/Plan of Care Treatment,Training & Education: Yes Patient would benefit from OT for education, treatment and training to promote independence in ADL's, mobility, safety and/or upper extremity function for ADL's. Plan of Care: ADL Retraining, Caregiver Training, Functional Mobility, Group Exercise/Act as Ind, UE Funct Exercise/Act Treatment Duration: May 16, 2019 Frequency: At least 5 of 7 days/Wk (IRF) Estimated Hrs Per Day: 1.5 hours per day Agreement: Yes Rehab Potential: Fair Time/GCodes Start Time: 09:05 Stop Time: 09:50 Total Time Billed (hr/min): 45 Billed Treatment Time 1, ADL x 30minutes, FA x 15minutes HEMANT MERCEDES OT Apr 24, 2019 10:08
--- NOTE | 2019-04-24 10:33 | PM&R Progress Note ---
Subjective HPI/CC On Admission Date Seen by Provider: Apr 24, 2019 Time Seen by Provider: 08:30 Subjective/Events-last exam Ileostomy is leaking so will redo the ostomy site Failing inpatient rehab Getting confused at night Vistaril was given and that really helped her rest Pt maintained on TPN Pt needs senior living Bed ridden state noted Pt overall has a very long recovery expected and prognosis is guarded at best. LFTs are elevated due to TPN cholestasis. Blood sugars reviewed Cognition is an issue Conferred with RN Check meds and labs Reviewed therapy notes Long recovery expected Review of Systems General: Fatigue Neurological: Confusion Objective Exam Vital Signs Vital Signs Date Time Temp Pulse Resp B/P (MAP) Pulse Ox O2 Delivery O2 Flow Rate FiO2 04/24/19 18:00 36.8 79 16 125/66 (85) 98 Nasal Cannula 2.00 Capillary Refill : General Appearance: No Apparent Distress, Chronically ill, Cachetic HEENT: PERRL/EOMI; No Pale Conjunctivae (L), No Pale Conjunctivae (R), No Scleral Icterus (L), No Scleral Icterus (R) Neck: Non Tender, Supple Respiratory: Chest Non Tender, Lungs Clear, Normal Breath Sounds, No Accessory Muscle Use, No Respiratory Distress Cardiovascular: Regular Rate, Rhythm, No Edema, No Murmur, Normal Peripheral Pulses, Systolic Murmur Gastrointestinal: Normal Bowel Sounds, No Organomegaly, No Pulsatile Mass, Non Tender, Soft Back: Normal Inspection, No CVA Tenderness, No Vertebral Tenderness Extremity: Normal Inspection, Non Tender, No Calf Tenderness, Pedal Edema (2+ edema on LLE, 1+ edema on RLE) Neurologic/Psychiatric: Alert, No Motor/Sensory Deficits, Normal Mood/Affect, geophysical computer II-XII Norm as Tested Skin: Normal Color, Warm/Dry Lymphatic: No Adenopathy Results/Procedures Lab Laboratory Tests 04/24/19 06:00 Patient resulted labs reviewed. FIM Transfers Therapy Code Descriptions/Definitions Functional [place] Measure: 0=Not Assessed/NA 4=Minimal Assistance 1=Total Assistance 5=Supervision or Setup 2=Maximal Assistance 6=Modified [place] 3=Moderate Assistance 7=Complete IndependenceSCALE: Activities may be completed with or without assistive devices. 2-Cihmcrrnrd-kjgdomh completes the activity by him/herself with no assistance from a helper. 5-Set-up or Clean-up Assistance-helper sets up or cleans up; patient completes activity. [place] assists only prior to or following the activity. 4-Supervision or Touching Assistance-helper provides verbal cues and/or touching/steadying and/or contact guard assistance as patient completes activity. Assistance may be provided throughout the activity or intermittently. 3-Partial/Moderate Assistance-helper does LESS THAN HALF the effort. [place] lif ts, holds or supports trunk or limbs, but provides less than half the effort. 2-Substantial/Maximal Assistance-helper does MORE THAN HALF the effort. [place] lifts or holds trunk or limbs and provides more than half the effort. 2-Pnmzqinzq-xhfvsi does ALL the effort. Patient does none of the effort to complete the activity. Or, the assistance of 2 or more helpers is required for the patient to complete the activity. If activity was not attempted, code reason: 7-Patient Refused. 9-Not Applicable-not attempted and the patient did not perform the activity before the current illness, exacerbation or injury. 10-Not Attempted due to Environmental Limitations-(lack of equipment, weather restraints, etc.). 88-Not Attempted due to Medical Conditions or Safety Concerns. Roll Left to Right (QC): 2 (A of 2) Sit to Lying (QC): 2 (A of 2) Sit to Stand (QC): 1 Chair/Bel-wl-Pahdt Xfer(QC): 1 Car Transfer (QC): 88 Gait Training Does the Patient Walk?: No and Walking Goal NOT indicated Walk 10 feet (QC): 88 Walk 50 ft with 2 Turns(QC): 88 Walk 150 ft (QC): 88 Walking 10ft/uneven surface-QC: 88 Wheelchair Training Does the Pt Use a Wheelchair?: Yes Wheel 50 ft with 2 turns (QC): 88 Wheel 150 ft (QC): 88 Type of Wheelchair: Manual Stair Training 1 Step (curb) (QC): 88 4 Steps (QC): 88 12 Steps (QC): 88 Balance Picking up an Object (QC): 88 ADL-Treatment Eating (QC): 88 (Pt. currently not allowed to eat. Is eating ice chips with assist at times to adequately spoon them to her mouth.) Oral Hygiene (QC): 3 (Pt. does not have her dentures. Agrees to swab mouth out with mouth swab. Able to do this with set up. Pt. asks for chapstick. OT puts some lubricating jelly on her finger to put on her lips. Pt. overshoots/undershoots. States that she can't find her lips. OT assists her with this.) Shower/Bathe Self (QC): 2 (Pt. washes face at bed level and under arms/upper chest. OT goes over chest/arms for her to bathe more thoroughly. OT completes full bath otherwise at bed level. Max to roll side to side. 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 Diabetes mellitus Low albumin TPN required History of respiratory failure Elevated liver enzymes due to cholestasis from TPN Anemia receiving iron infusions Confusion with undercurrent of dementia Decubitus ulcers Tachycardia consulted Plan: Inpatient rehab protocol TPN Wound care for pressure ulcers Wound vac eval Air bed TPN wean Monitor labs Iron infusions Chey lift and bedridden state Appreciate Cardiology for tachycardia management (1) Critical illness myopathy Status: Acute (2) Essential hypertension Status: Chronic (3) Abdominal pain (4) HLP (5) Headache Status: Acute (6) Perforated abdominal viscus Status: Acute (7) Postoperative abdominal pain Status: Acute (8) IDDM (insulin dependent diabetes mellitus) Status: Chronic YARON GALLAGHER DO Apr 24, 2019 10:33
--- NOTE | 2019-04-24 11:13 | Speech Therapy Daily Note ---
Speech Daily Progress Note Subjective Date Seen by Provider: Apr 24, 2019 Time Seen by Provider: 00:30 Patient was more alert today. She states she is feeling some better. Objective Patient completed a series of Ata questions at the simple level with 75% given 20% verbal cues and/or repetitions. Assessment Assessment Current Status: Fair Progress Treatment Plan Continue Plan of Care Speech Short Term Goals Short Term Goals Short Term Goals 1) Patient will complete memory tasks related to her daily needs at 90% or greater with minimal cues. 2) Patient will complete problem solving tasks related to her daily needs at 90% or greater with minimal cues. 3) Patient will complete safety awareness tasks related to her daily needs at 90% or greater with minimal cues. Speech Correction Goals Finance Controller Goals Patient will improve cognitive-communication necessary for safety and daily living tasks with minimal assist. Speech-Plan Patient/Family Goals Patient/Family Goals: Patient plans on returning to her home where she lives with her daughter. Treatment Plan Speech Therapy Treatment Plan: Continue Plan of Care Patient was able to participate better today. Treatment Duration: May 03, 2019 Frequency: 5 times per week Estimated Hrs Per Day: .5 hour per day Rehab Potential: Fair Barriers to Learning: Patient's medical status Safety Risks/Education Teaching Recipient: Patient Teaching Methods: Demonstration, Discussion Response to Teaching: Verbalize Understanding, Return Demonstration Education Topics Provided: Continued safety and communication of her wants/needs. Time Speech Therapy Time In: 10:00 Speech Therapy Time Out: 10:30 Total Billed Time: 30 Billed Treatment Time 1KEHINDEKAEL Vilma CARMEN VIVASEDWARD CANTU Apr 24, 2019 11:13
--- NOTE | 2019-04-24 12:02 | Cardiology Progress Note ---
Subjective Date Seen by Provider: Apr 24, 2019 Time Seen by Provider: 14:37 Subjective/Events-last exam Patient in bed, complains of fatigue and sleepiness. Denies any chest pain. Review of Systems General: No Chills, No Night Sweats; Fatigue, Malaise; No Appetite, No Other HEENT: No Head Aches, No Visual Changes, No Eye Pain, No Ear Pain, No Dysphasia, No Sinus Congestion, No Post Nasal Drip, No Sore Throat, No Other Pulmonary: Dyspnea; No Cough, No Pleuritic Chest Pain, No Other Cardiovascular: Edema; No: Chest Pain, Palpitations, Orthopnea, Paroxysmal Noc. Dyspnea, Lt Headedness, Other Objective-Cardiology Exam Last Set of Vital Signs Vital Signs 04/24/19 04/24/19 04/24/19 05:45 09:53 10:08 Temp 36.9 Pulse 89 Resp 18 B/P (MAP) 148/69 (95) Pulse Ox 94 O2 Delivery Nasal Cannula O2 Flow Rate 2.00 Capillary Refill : I&O Intake and Output 04/24/19 00:00 Intake Total 150 ml Output Total 1200 ml Balance -1050 ml Intake Oral 150 ml Output Urine Total 900 ml Stool Total 250 ml Other 50 ml General: Alert, Oriented X3, Cooperative HEENT: Atraumatic, PERRLA Neck: Supple, No JVD, No Thyromegaly Lungs: Clear to Auscultation, Normal Air Movement Heart: Regular Rate, Normal S1, Normal S2, No Murmurs Abdomen: Other (Wound vac in place ) Extremities: No Edema Skin: No Rashes, No Significant Lesion Neuro: Normal Speech, Cranial Nerves 3-12 NL Psych/Mental Status: Mental Status NL, Mood NL Results Lab Laboratory Tests 04/24/19 06:00 A/P-Cardiology Admission Diagnosis PAF CAD HTN HLP Assessment/Plan H/O multiple abdominal surgeries, had bowel resection and diverting ileostomy, last procedure was done on March 13, [address], followed by surgical services, recent transfer from [place] on 04-18-19 Paroxysmal atrial fibrillation, maintained on Lopressor, Eliquis. Continue to monitor. Labile hypertension, continue to monitor blood pressure. H/O acute renal insufficiency, continue to monitor renal function. Coronary artery disease - Most recent cardiac catheterization done April 2018 revealed mild ectasia in the proximal LAD with mild disease in the mid LAD, small vessel disease distally, mild ectasia in the proximal circumflex artery and 40-50 percent stenosis in the mid right coronary artery, nonobstructive disease History of colon cancer, history of colon resection and colostomy in the past, followed by Dr. Branham Hyperlipidemia- continue to monitor lipids as outpatient. Carotid artery stenosis, bilateral nonobstructive disease per carotid duplex done December 2018, continue to monitor. History of thyroid nodules noted on ultrasound, followed by Dr. Branham and Dr. Simmons Diabetes mellitus Family history of coronary artery disease. Obstructive sleep apnea, intolerance to CPAP History of appendectomy, kidney stones, hysterectomy. Breast biopsy. Anemia, continue to monitor, management per Dr Hand Patient was seen and evaluated with Natalie, examination performed, management plan was discussed, agree with the current scribed note, I made few changes to the note using Italic font Patient is sitting in a recliner, complaining of fatigue and loss of energy Lungs were clear to auscultation, heart is regular continue on current medication and monitor blood pressure and lipids Clinical Quality Measures DVT/VTE Risk/Contraindication: Risk Factor Score Per Nursin RFS Level Per Nursing on Admit: 4+=Very High NATALIE RAO Apr 24, 2019 12:01 NAYA URIAS MD Apr 24, 2019 14:39
--- NOTE | 2019-04-24 12:04 | Physical Therapy Daily Note ---
PT Daily Note-Current Subjective Pt laying Supine positioned on pillow to L side upon arrival. Pt reluctantly agrees to PT. Pt reports feeling fatigued and thinks ARU is too intensive at this time for her. Pt demonstrates Sundowners like behavior in afternoon and evenings per Nurse report. Pain Location: No Pain Reported Mental Status Patient Orientation: Person, Place Attachments: Colostomy/Ileostomy, Oxygen, Other-See Comments (Wound Vac.) Transfers SCALE: Activities may be completed with or without assistive devices. 8-Ndyuivhtmf-wbcxlco completes the activity by him/herself with no assistance from a helper. 5-Set-up or Clean-up Assistance-helper sets up or cleans up; patient completes activity. [place] assists only prior to or following the activity. 4-Supervision or Touching Assistance-helper provides verbal cues and/or touching /steadying and/or contact guard assistance as patient completes activity. Assistance may be provided throughout the activity or intermittently. 3-Partial/Moderate Assistance-helper does LESS THAN HALF the effort. [place] lifts, holds or supports trunk or limbs, but provides less than half the effort. 2-Substantial/Maximal Assistance-helper does MORE THAN HALF the effort. [place] lifts or holds trunk or limbs and provides more than half the effort. 5-Lpavsvavp-lqxmap does ALL the effort. Patient does none of the effort to complete the activity. Or, the assistance of 2 or more helpers is required for the patient to complete the activity. If activity was not attempted, code reason: 7-Patient Refused. 9-Not Applicable-not attempted and the patient did not perform the activity before the current illness, exacerbation or injury. 10-Not Attempted due to Environmental Limitations-(lack of equipment, weather restraints, etc.). 88-Not Attempted due to Medical Conditions or Safety Concerns. Roll Left & Right (QC): 4 Gait Training Does the Patient Walk?: No and Walking Goal NOT indicated Exercises Supine Ex: Ankle pumps, Quad Set, Heel Slides Supine Reps: 15 Treatments Pt completes limited Supine EX, fatigues easily. Pt able to roll to R side from L to reposition. LOGISTICIAN & pt discuss pt's progress, goals and pt's want to D/C JUSTICE since she feels this Therapy is too intensive. LOGISTICIAN discusses safety and independence pt would need to return home as pt wants. Assessment Current Status: Fair Progress Pt appears depressed and wants to return home JUSTICE. Pt demonstrates lack of motivation for Therapy. Pt also demonstrates confusion at times, even Sundowners like behavior. PT Short Term Goals Short Term Goals Time Frame: Apr 25, 2019 Roll Left & Right: 3 (mod A) Sit to lyin (modA) Lying to sitting on side of be: 3 (modA) Sit to stand: 3 (modA) Chair/waz-kd-milsm transfer: 3 (modA) PT Alf Goals Tire Maker Goals PT Tire Maker Goals Time Frame: May 09, 2019 Roll Left & Right (QC): 3 (Chet) Sit to Lying (QC): 3 (Chet) Lying-Sitting on Side/Bed(QC): 3 (Chet) Sit to Stand (QC): 3 (Chet) Chair/Lkm-yg-Dnmrd Xfer(QC): 3 (Chet) Toilet Transfer (QC): 3 (Chet) Car Transfer (QC): 3 (Chet) Does the Patient Walk: No and Walking Goal NOT indicated Walk 10 feet (QC): 88 Walk 50ft with 2 Turns (QC): 88 Walk 150 ft (QC): 88 Walking 10ft on Uneven Surface: 88 1 Step (curb) (QC): 88 4 Steps (QC): 88 12 Steps (QC): 88 Picking up an Object (QC): 88 Does the Pt use WC or Scooter?: Yes Wheel 50 feet with 2 turns (QC: 4 (SBA) Type: Manual Wheel 150 feet: 4 (SBA) Type: Manual PT Plan Problem List Problem List: Activity Tolerance, Functional Strength, Safety, Balance, Gait, Transfer, Bed Mobility Treatment/Plan Treatment Plan: Continue Plan of Care Treatment Plan: Bed Mobility, Concurrent Therapy, Education, Functional Activity José, Functional Strength, Group Therapy, Gait, Safety, Therapeutic Exercise, Transfers Treatment Duration: May 09, 2019 Frequency: At least 5 of 7 days/Wk (IRF) Estimated Hrs Per Day: 1.5 hours per day Patient and/or Family Agrees t: Yes Safety Risks/Education Patient Education: Correct Positioning, Disease Process, Safety Issues Teaching Recipient: Patient Teaching Methods: Discussion Response to Teaching: Verbalize Understanding, Reinforcement Needed Time/GCodes Time In: 1030 Time Out: 1115 Total Billed Treatment Time: 45 Total Billed Treatment 1, FA x2 (25m) & EX (20m) BRITTANY HARTMAN PTA Apr 24, 2019 12:04
[2019-04-24] MEDS ORDERED: RT-ALBUTEROL/IPRATROPIUM 3 ML (DUONEB) VIAL IH PRN (13:15)
--- NOTE | 2019-04-24 14:37 | Therapy Group Daily Note ---
Therapy Daily Group Note Patient Education Topic Other List Below (memory) Exercises LE Seated Exercise, UE Exercise Session Ratio (pt:therapist): 3:1 Goal of Session: Memory Strategies, UE/LE Strengthing Goal Met for this Session: Yes Pt Benefit of Group: Contributions to Others, Increased Functional Strength, Improved Cognition, Recognition of Peers, Socialization Other/Notes Pt transported in recliner to [facility] for OT/PT group. Group consisted of introductions (name, place born, random [place] question), socialization, UE/LE seated exercises, memory activity and memory education/strategies. Pt introduced self appropriately and actively listened to peers. Pt has difficulty with UE/LE seated exercises due to decreased AROM/strength, though did attempt to complete. Pt acknowledged understanding of educational topic by given gestures in affirmative and own personal strategies. Pt was able to match 1 of 2 items during a memory activity. After therapy, pt reclined in chair with call light/phone in reach. All needs met in room. Start Time: 13:00 Stop Time: 14:15 Total Billed Treatment Time: 75 Total Billed Treatment 1-GRP GEOVANNI FLORES Apr 24, 2019 14:37
[2019-04-24] MEDS: hydrOXYzine (VISTARIL/ATARAX) 25 MG capsule/tablet PO PRN (14:49)
[2019-04-24] MEDS ORDERED: POTASSIUM ACETATE IV SCH ×11 (17:00)
[2019-04-24] MEDS ORDERED: [UNRECOGNIZED DRUG - OTHER] IV SCH ×11 (17:00)
[2019-04-24] MEDS ORDERED: SODIUM ACETATE IV SCH ×11 (17:00)
[2019-04-24 18:00] VITALS: BP 125/66
--- NOTE | 2019-04-24 18:29 | NUR ---
Noted Patient is Jaundice in sclera, on abdomen, knees, legs, inner thighs. Dr. Hand notified, new orders received for am labs.
[2019-04-24 22:30] VITALS: BP 137/65
[2019-04-25] MEDS: inSUlin ASPART (NovoLOG) 1 UNIT/0.01 ML (CHARGE PER UNIT) SC SCH ×5 (00:25→23:59)
[2019-04-25] MEDS: CATHETER FLUSH 10 ML SYR IV SCH ×3 (05:25→22:01)
[2019-04-25 05:44] VITALS: BP 115/64
[2019-04-25 06:27] LABS: BASOPHILS % (AUTO) 0 % (0-10); EOSINOPHILS # (AUTO) 0.2 10^3/uL (0.0-0.3); EOSINOPHILS % (AUTO) 2 % (0-10); HEMATOCRIT 30 % (35-52); HEMOGLOBIN 8.9 G/DL (11.5-16.0); LYMPHOCYTES # (AUTO) 0.7 X 10^3 (1.0-4.0); LYMPHOCYTES % (AUTO) 9 % (12-44); MEAN CORPUSCULAR HEMOGLOBIN 31 PG (25-34); MEAN CORPUSCULAR HGB CONC 30 G/DL (32-36); MEAN CORPUSCULAR VOLUME 104 FL (80-99); MEAN PLATELET VOLUME 11.5 FL (7.4-10.4); MONOCYTES # (AUTO) 0.7 X 10^3 (0.0-1.0); MONOCYTES % (AUTO) 8 % (0-12); NEUTROPHILS # (AUTO) 6.6 X 10^3 (1.8-7.8); NEUTROPHILS % (AUTO) 81 % (42-75); PLATELET COUNT 233 10^3/uL (130-400); RED CELL DISTRIBUTION WIDTH 17.4 % (10.0-14.5); WHITE BLOOD COUNT 8.2 10^3/uL (4.3-11.0)
[2019-04-25 06:50] LABS: ALANINE AMINOTRANSFERASE 72 U/L (0-55); ALKALINE PHOSPHATASE 140 U/L (40-136); BUN/CREATININE RATIO 80; CALCIUM 8.4 MG/DL (8.5-10.1); CARBON DIOXIDE 18 MMOL/L (21-32); CHLORIDE 115 MMOL/L (98-107); CREATININE SERUM 0.71 MG/DL (0.60-1.30); GFR ESTIMATED > 60; GLUCOSE 156 MG/DL (70-105); MAGNESIUM 1.9 MG/DL (1.6-2.4); PHOSPHORUS 4.2 MG/DL (2.3-4.7); POTASSIUM 4.9 MMOL/L (3.6-5.0); SODIUM 142 MMOL/L (135-145); TRIGLYCERIDES 236 MG/DL (<150)
--- NOTE | 2019-04-25 08:18 | Cardiology Progress Note ---
Subjective Date Seen by Provider: Apr 25, 2019 Time Seen by Provider: 08:15 Subjective/Events-last exam Patient in bed, denies any chest pain, continues to c/o fatigue. Review of Systems General: No Chills, No Night Sweats, No Fatigue, No Malaise, No Appetite, No Other HEENT: No Head Aches, No Visual Changes, No Eye Pain, No Ear Pain, No Dysphasia, No Sinus Congestion, No Post Nasal Drip, No Sore Throat, No Other Pulmonary: Dyspnea; No Cough, No Pleuritic Chest Pain, No Other Cardiovascular: No: Chest Pain, Palpitations, Orthopnea, Paroxysmal Noc. Dyspnea, Edema, Lt Headedness, Other Objective-Cardiology Exam Last Set of Vital Signs Vital Signs 04/25/19 04/25/19 05:44 08:15 Temp 36.8 Pulse 71 Resp 16 B/P (MAP) 115/64 (81) Pulse Ox 90 O2 Delivery Nasal Cannula O2 Flow Rate 1.00 Capillary Refill : I&O Intake and Output 04/25/19 00:00 Intake Total 175 ml Output Total 1375 ml Balance -1200 ml Intake Oral 175 ml Output Urine Total 1225 ml Stool Total 100 ml Other 50 ml General: Alert, Oriented X3, Cooperative HEENT: Atraumatic, PERRLA Neck: Supple, No JVD, No Thyromegaly Lungs: Clear to Auscultation, Normal Air Movement Heart: Regular Rate, Normal S1, Normal S2, No Murmurs Abdomen: Other (Wound vac in place ) Extremities: No Edema Skin: No Rashes, No Significant Lesion Neuro: Normal Speech, Cranial Nerves 3-12 NL Psych/Mental Status: Mental Status NL, Mood NL Results Lab Laboratory Tests 04/25/19 06:17 A/P-Cardiology Admission Diagnosis PAF CAD HTN HLP Assessment/Plan H/O multiple abdominal surgeries, had bowel resection and diverting ileostomy, last procedure was done on March 13, [address], followed by surgical services, recent transfer from [place] on 04-18-19 Paroxysmal atrial fibrillation, maintained on Lopressor, Eliquis. Continue to monitor. Labile hypertension, blood pressure well controlled at this time, continue to monitor. H/O acute renal insufficiency, continue to monitor renal function. Coronary artery disease - Most recent cardiac catheterization done April 2018 revealed mild ectasia in the proximal LAD with mild disease in the mid LAD, small vessel disease distally, mild ectasia in the proximal circumflex artery and 40-50 percent stenosis in the mid right coronary artery, nonobstructive disease History of colon cancer, history of colon resection and colostomy in the past, followed by Dr. Branham Hyperlipidemia- continue to monitor lipids as outpatient. Carotid artery stenosis, bilateral nonobstructive disease per carotid duplex done December 2018, continue to monitor. History of thyroid nodules noted on ultrasound, followed by Dr. Branham and Dr. Simmons Diabetes mellitus Family history of coronary artery disease. Obstructive sleep apnea, intolerance to CPAP History of appendectomy, kidney stones, hysterectomy. Breast biopsy. Anemia, continue to monitor, management per Dr Hand Patient was seen and evaluated with Natalie, examination performed, management plan was discussed, agree with the current scribed note, I made few changes to the note using Italic font Patient is laying down in bed, complaining of fatigue. No chest pain Lungs were clear to auscultation, heart is regular Continue on current medication, continue on Lopressor and Eliquis, monitor heart rate and blood pressure Dr. Spear is covering starting tomorrow Clinical Quality Measures DVT/VTE Risk/Contraindication: Risk Factor Score Per Nursin RFS Level Per Nursing on Admit: 4+=Very High NATALIE RAO Apr 25, 2019 8:18 am NAYA URIAS MD Apr 25, 2019 8:51 am
--- NOTE | 2019-04-25 09:59 | Physical Therapy Daily Note ---
PT Daily Note-Current Subjective Pt laying in bed upon arrival. Pt reluctantly agrees to PT/OT co-treat. Pt voices that she feels that she cannot complete the Therapy that is being asked of her. "It's just too much." Pain Comment: Pt reports pain,doesn't rate. Based on facial grimaces observed. Mental Status Patient Orientation: Person, Confused, Place Attachments: Colostomy/Ileostomy, Oxygen, PEG Tube, Other-See Comments (Wound Vac.) Transfers SCALE: Activities may be completed with or without assistive devices. 0-Fzxhtaguib-xpgxwtq completes the activity by him/herself with no assistance from a helper. 5-Set-up or Clean-up Assistance-helper sets up or cleans up; patient completes activity. [place] assists only prior to or following the activity. 4-Supervision or Touching Assistance-helper provides verbal cues and/or touching/steadying and/or contact guard assistance as patient completes activity. Assistance may be provided throughout the activity or intermittently. 3-Partial/Moderate Assistance-helper does LESS THAN HALF the effort. [place] lifts, holds or supports trunk or limbs, but provides less than half the effort. 2-Substantial/Maximal Assistance-helper does MORE THAN HALF the effort. [place] lifts or holds trunk or limbs and provides more than half the effort. 3-Mgtgnmvhj-jkgqkk does ALL the effort. Patient does none of the effort to complete the activity. Or, the assistance of 2 or more helpers is required for the patient to complete the activity. If activity was not attempted, code reason: 7-Patient Refused. 9-Not Applicable-not attempted and the patient did not perform the activity before the current illness, exacerbation or injury. 10-Not Attempted due to Environmental Limitations-(lack of equipment, weather restraints, etc.). 88-Not Attempted due to Medical Conditions or Safety Concerns. Roll Left & Right (QC): 1 Sit to Lying (QC): 1 Lying to Sitting/Side of Bed(Q: 1 Gait Training Does the Patient Walk?: No and Walking Goal NOT indicated Treatments Pt. in bed. Completed co-treatment with PT due to pt's fatigue, lethargy, medical status, and need of skilled treatment x 2. OT facilitated hand placement when sitting on side of bed, as well as upright mobility. PT facilitated trunk control and upright mobility while behind pt. on side of bed. Pt. required max x 2 for supine-sit. Very retropulsive at first. Required cues to keep eyes open, breathe deeply, and to participate. Pt. pushing backward and so OT sat in front of pt. to facilitate trunk flexion and sitting balance. Pt. very fearful. PT put [place]uill[place] ball behind pt. while on bed and pt. able to lean back some for comfort. Pt. sat on side of bed approximately 10-15 minutes, but required multiple cues and encouragement to stay upright. Pt. wanted to lay back down. States that she is so weak and just can't participate. Transferred sit-supine with dependent x 2 assist. Bed mobility with assist x 2. Bed placed in chair position. Pt. unable to tolerate HOB being so upright, and requested f or it to lay back down some. Pt. encouraged to participate and need for upright position for lung health. Pt. able to tolerate this position for approximately 15 minutes, but requested again to lay back down. Pt. was positioned on right side for pressure relief and comfort. All needs met in room, call light next to pt. Assessment Current Status: Fair Progress Pt is very fearful during Rx as well as confused at times. PT Short Term Goals Short Term Goals Time Frame: Apr 25, 2019 Roll Left & Right: 3 (mod A) Sit to lyin (modA) Lying to sitting on side of be: 3 (modA) Sit to stand: 3 (modA) Chair/byd-xe-zkssj transfer: 3 (modA) PT Long-Term Goals Call Center Director Goals PT Call Center Director Goals Time Frame: May 09, 2019 Roll Left & Right (QC): 3 (Chet) Sit to Lying (QC): 3 (Chet) Lying-Sitting on Side/Bed(QC): 3 (Chet) Sit to Stand (QC): 3 (Chet) Chair/Jyn-pv-Oqfqz Xfer(QC): 3 (Chet) Toilet Transfer (QC): 3 (Chet) Car Transfer (QC): 3 (Chet) Does the Patient Walk: No and Walking Goal NOT indicated Walk 10 feet (QC): 88 Walk 50ft with 2 Turns (QC): 88 Walk 150 ft (QC): 88 Walking 10ft on Uneven Surface: 88 1 Step (curb) (QC): 88 4 Steps (QC): 88 12 Steps (QC): 88 Picking up an Object (QC): 88 Does the Pt use WC or Scooter?: Yes Wheel 50 feet with 2 turns (QC: 4 (SBA) Type: Manual Wheel 150 feet: 4 (SBA) Type: Manual PT Plan Problem List Problem List: Activity Tolerance, Functional Strength, Safety, Balance, Gait, Transfer, Bed Mobility Treatment/Plan Treatment Plan: Continue Plan of Care Treatment Plan: Bed Mobility, Concurrent Therapy, Education, Functional Activity José, Functional Strength, Group Therapy, Gait, Safety, Therapeutic Exercise, Transfers Treatment Duration: May 09, 2019 Frequency: At least 5 of 7 days/Wk (IRF) Estimated Hrs Per Day: 1.5 hours per day Patient and/or Family Agrees t: Yes Safety Risks/Education Patient Education: Transfer Techniques, Correct Positioning, Disease Process, Safety Issues Teaching Recipient: Patient Teaching Methods: Discussion Response to Teaching: Reinforcement Needed Time/GCodes Time In: 900 Time Out: 945 Total Billed Treatment Time: 45 Total Billed Treatment 1, EX (15m) & FA x2 (30m) Co-treat for 45m BRITTANY HARTMAN PTA Apr 25, 2019 09:59
[2019-04-25] MEDS: APIXABAN 2.5 MG (ELIQUIS) TABLET PO SCH ×2 (10:03→20:46)
[2019-04-25] MEDS: SERTRALINE 50 MG (ZOLOFT) TABLET PO SCH (10:03)
[2019-04-25] MEDS: FAMOTIDINE 20 MG (PEPCID) TABLET PO SCH (10:03)
[2019-04-25] MEDS: ENALAPRIL 5 MG (VASOTEC) TAB PEG SCH (10:08)
[2019-04-25] MEDS: OXYBUTYNIN (DITROPAN) 5 MG TAB PO SCH ×2 (10:08→20:46)
[2019-04-25] MEDS: meTOprolol TARTRATE 50 MG (LOPRESSOR) TAB PO SCH ×2 (10:08→20:46)
[2019-04-25] MEDS: NYSTATIN ORAL SUSP 5 ML UDC PO SCH ×4 (10:08→20:46)
[2019-04-25] MEDS: VISC LIDOCAINE/ANTACID/DIPHENHYDRAMINE 1:1:1 120 ML PO SCH ×12 (10:09→20:46)
--- NOTE | 2019-04-25 10:11 | PM&R Progress Note ---
Subjective HPI/CC On Admission Date Seen by Provider: Apr 25, 2019 Time Seen by Provider: 09:00 Subjective/Events-last exam Picc line dysfunction will be addressed by the picc line nurse. Sugar was 356 this morning, 9 units given now its 151. Labs were mixed in with TPN so they had to redo the labs. Overall poor prognosis long-term. Wound vac managed by Sunny and Dr. Cohen. Pt needs jail Bed ridden state noted Pt overall has a very long recovery expected and prognosis is guarded at best. LFTs are elevated due to TPN cholestasis. Blood sugars reviewed Cognition is an issue Conferred with RN Check meds and labs Reviewed therapy notes Long recovery expected Review of Systems General: Fatigue Gastrointestinal: Nausea, Abdominal Pain Objective Exam Vital Signs Vital Signs Date Time Temp Pulse Resp B/P (MAP) Pulse Ox O2 Delivery O2 Flow Rate FiO2 04/26/19 06:04 37.1 84 18 149/62 (91) 98 Nasal Cannula 2.00 Capillary Refill : General Appearance: No Apparent Distress, Chronically ill, Cachetic HEENT: PERRL/EOMI; No Pale Conjunctivae (L), No Pale Conjunctivae (R), No Scleral Icterus (L), No Scleral Icterus (R) Neck: Non Tender, Supple Respiratory: Chest Non Tender, Lungs Clear, Normal Breath Sounds, No Accessory Muscle Use, No Respiratory Distress Cardiovascular: Regular Rate, Rhythm, No Edema, No Murmur, Normal Peripheral Pulses, Systolic Murmur Gastrointestinal: Normal Bowel Sounds, No Organomegaly, No Pulsatile Mass, Non Tender, Soft Back: Normal Inspection, No CVA Tenderness, No Vertebral Tenderness Extremity: Normal Inspection, Non Tender, No Calf Tenderness, Pedal Edema (2+ edema on LLE, 1+ edema on RLE) Neurologic/Psychiatric: Alert, No Motor/Sensory Deficits, Normal Mood/Affect, rn mds II-XII Norm as Tested Skin: Normal Color, Warm/Dry Lymphatic: No Adenopathy Results/Procedures Lab Laboratory Tests 04/25/19 06:17 Patient resulted labs reviewed. FIM Transfers Therapy Code Descriptions/Definitions Functional [place] Measure: 0=Not Assessed/NA 4=Minimal Assistance 1=Total Assistance 5=Supervision or Setup 2=Maximal Assistance 6=Modified [place] 3=Moderate Assistance 7=Complete IndependenceSCALE: Activities may be completed with or without assistive devices. 6-Inkihaozsj-xdqfiir completes the activity by him/herself with no assistance from a helper. 5-Set-up or Clean-up Assistance-helper sets up or cleans up; patient completes activity. [place] assists only prior to or following the activity. 4-Supervision or Touching Assistance-helper provides verbal cues and/or touching/steadying and/or contact guard assistance as patient completes activity. Assistance may be provided throughout the activity or intermittently. 3-Partial/Moderate Assistance-helper does LESS THAN HALF the effort. [place] lift s, holds or supports trunk or limbs, but provides less than half the effort. 2-Substantial/Maximal Assistance-helper does MORE THAN HALF the effort. [place] lifts or holds trunk or limbs and provides more than half the effort. 5-Ziefazznm-vzclmi does ALL the effort. Patient does none of the effort to complete the activity. Or, the assistance of 2 or more helpers is required for the patient to complete the activity. If activity was not attempted, code reason: 7-Patient Refused. 9-Not Applicable-not attempted and the patient did not perform the activity before the current illness, exacerbation or injury. 10-Not Attempted due to Environmental Limitations-(lack of equipment, weather restraints, etc.). 88-Not Attempted due to Medical Conditions or Safety Concerns. Roll Left to Right (QC): 4 Sit to Lying (QC): 2 (A of 2) Sit to Stand (QC): 1 Chair/Ilx-zt-Eaumh Xfer(QC): 1 Car Transfer (QC): 88 Gait Training Does the Patient Walk?: No and Walking Goal NOT indicated Walk 10 feet (QC): 88 Walk 50 ft with 2 Turns(QC): 88 Walk 150 ft (QC): 88 Walking 10ft/uneven surface-QC: 88 Wheelchair Training Does the Pt Use a Wheelchair?: Yes Wheel 50 ft with 2 turns (QC): 88 Wheel 150 ft (QC): 88 Type of Wheelchair: Manual Stair Training 1 Step (curb) (QC): 88 4 Steps (QC): 88 12 Steps (QC): 88 Balance Picking up an Object (QC): 88 ADL-Treatment Eating (QC): 88 (Pt. currently not allowed to eat. Is eating ice chips with assist at times to adequately spoon them to her mouth.) Oral Hygiene (QC): 3 (Pt. does not have her dentures. Agrees to swab mouth out with mouth swab. Able to do this with set up. Pt. asks for chapstick. OT puts some lubricating jelly on her finger to put on her lips. Pt. overshoots/undershoots. States that she can't find her lips. OT assists her with this.) Shower/Bathe Self (QC): 2 (Pt. washes face at bed level and under arms/upper chest. OT goes over chest/arms for her to bathe more thoroughly. OT completes full bath otherwise at bed level. Max to roll side to side. 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 Diabetes mellitus Low albumin TPN required History of respiratory failure Elevated liver enzymes due to cholestasis from TPN Anemia receiving iron infusions Confusion with undercurrent of dementia Decubitus ulcers Tachycardia consulted Plan: Inpatient rehab protocol TPN Wound care for pressure ulcers Wound vac eval Air bed TPN wean Monitor labs Iron infusions Chey lift and bedridden state Appreciate Cardiology for tachycardia management Advance diet to wean TPN (1) Critical illness myopathy Status: Acute (2) Essential hypertension Status: Chronic (3) Abdominal pain (4) HLP (5) Headache Status: Acute (6) Perforated abdominal viscus Status: Acute (7) Postoperative abdominal pain Status: Acute (8) IDDM (insulin dependent diabetes mellitus) Status: Chronic YARON GALLAGHER DO Apr 25, 2019 10:11
[2019-04-25] MEDS: FLUTICASONE NASAL SPRAY (FLONASE) 16 GM BTL NS SCH (10:23)
--- NOTE | 2019-04-25 10:36 | Speech Therapy Daily Note ---
Speech Daily Progress Note Subjective Date Seen by Provider: Apr 25, 2019 Time Seen by Provider: 00:30 Patient was resting in bed following her other therapies. Objective Patient completed memory task at 80% with 20% verbal cues and/or repetitions. Assessment Assessment Current Status: Good Progress Treatment Plan Continue Plan of Care Speech Short Term Goals Short Term Goals Short Term Goals 1) Patient will complete memory tasks related to her daily needs at 90% or greater with minimal cues. 2) Patient will complete problem solving tasks related to her daily needs at 90% or greater with minimal cues. 3) Patient will complete safety awareness tasks related to her daily needs at 90% or greater with minimal cues. Speech Lacquer Maker Goals Lacquer Maker Goals Patient will improve cognitive-communication necessary for safety and daily living tasks with minimal assist. Speech-Plan Patient/Family Goals Patient/Family Goals: Patient plans on returning home with her daughter upon rehab discharge. Treatment Plan Speech Therapy Treatment Plan: Continue Plan of Care Patient is progressing well. Treatment Duration: May 03, 2019 Frequency: 5 times per week Estimated Hrs Per Day: .5 hour per day Rehab Potential: Fair Barriers to Learning: Patient's medical status. Pt/Family Agrees to Plan: Yes Safety Risks/Education Teaching Recipient: Patient Teaching Methods: Demonstration, Discussion Response to Teaching: Verbalize Understanding, Return Demonstration Education Topics Provided: Continued communication of needs/wants Time Speech Therapy Time In: 10:00 Speech Therapy Time Out: 10:30 Total Billed Time: 30 Billed Treatment Time 1ALFIE [address]ETH[address] ST Apr 25, 2019 10:36
--- NOTE | 2019-04-25 12:00 | Occupational Ther Daily Note ---
OT Current Status-Daily Note Subjective Pt. does not report pain but does grimace with any movement. Pt.has had pain medication. Appearance Pt. in bed. Requires encouragement to participate with therapy. Mental Status/Objective Patient Orientation: Person Attachments: Colostomy/Ileostomy, Wing Catheter, IV, Oxygen ADL-Treatment Therapy Code Descriptions/Definitions Functional [place] Measure: 0=Not Assessed/NA 4=Minimal Assistance 1=Total Assistance 5=Supervision or Setup 2=Maximal Assistance 6=Modified [place] 3=Moderate Assistance 7=Complete IndependenceSCALE: Activities may be completed with or without assistive devices. 7-Viceekqmge-ogfykqp completes the activity by him/herself with no assistance from a helper. 5-Set-up or Clean-up Assistance-helper sets up or cleans up; patient completes activity. [place] assists only prior to or following the activity. 4-Supervision or Touching Assistance-helper provides verbal cues and/or touching/steadying and/or contact guard assistance as patient completes activity. Assistance may be provided throughout the activity or intermittently. 3-Partial/Moderate Assistance-helper does LESS THAN HALF the effort. [place] lifts, holds or supports trunk or limbs, but provides less than half the effort. 2-Substantial/Maximal Assistance-helper does MORE THAN HALF the effort. [place] lifts or holds trunk or limbs and provides more than half the effort. 2-Rizwnmzix-oyuoao does ALL the effort. Patient does none of the effort to complete the activity. Or, the assistance of 2 or more helpers is required for the patient to complete the activity. If activity was not attempted, code reason: 7-Patient Refused. 9-Not Applicable-not attempted and the patient did not perform the activity before the current illness, exacerbation or injury. 10-Not Attempted due to Environmental Limitations-(lack of equipment, weather restraints, etc.). 88-Not Attempted due to Medical Conditions or Safety Concerns. Eating (QC): 88 (Pt. receiving intravenous nutrition.) Pt. in bed. Completed co-treatment with PT due to pt's fatigue, lethargy, medical status, and need of skilled treatment x 2. OT facilitated hand placement when sitting on side of bed, as well as upright mobility. PT facilitated trunk control and upright mobility while behind pt. on side of bed. Pt. required max x 2 for supine-sit. Very retropulsive at first. Required cues to keep eyes open, breathe deeply, and to participate. Pt. pushing backward and so OT sat in front of pt. to facilitate trunk flexion and sitting balance. Pt. very fearful. PT put [place]is[place] ball behind pt. while on bed and pt. able to lean back some for comfort. Pt. sat on side of bed approximately 10-15 minutes, but required multiple cues and encouragement to stay upright. Pt. wanted to lay back down. States that she is so weak and just can't participate. Transferred sit-supine with dependent x 2 assist. Bed mobility with assist x 2. Bed placed in chair position. Pt. unable to tolerate HOB being so upright, and requested for it to lay back down some. Pt. encouraged to participate and need for upright position for lung health. Pt. able to tolerate this position for approximately 15 minutes, but requested again to lay back down. Pt. was positioned on right side for pressure relief and comfort. All needs met in room. Education OT Patient Education: Correct positioning, Modified ADL techniques, Progress toward Goal/Update tx plan, Purpose of tx/functional activities, Reviewed precautions, Rehab process, Transfer techniques Teaching Recipient: Patient Teaching Methods: Demonstration, Discussion Response to Teaching: Verbalize Understanding, Reinforcement Needed OT Short Term Goals Short Term Goals Time Frame: May 02, 2019 Eatin Oral hygiene: 4 Toileting hygiene: 3 Shower/bathe self: 3 Upper body dressin Lower body dressin Putting on/taking off footwear: 3 OT Senior Care Goals Litigation Assistant Goals Time Frame: May 16, 2019 Eating (QC): 6 Oral Hygiene (QC): 6 Toileting Hygiene (QC): 5 Shower/Bathe Self (QC): 4 Upper Body Dressing (QC): 5 Lower Body Dressing (QC): 5 On/Off Footwear (QC): 5 Additional Goals: 1-Demonstrate ADL Tasks, 2-Verbalize Understanding, 3-ImproveStrength/José 1=Demonstrate adherence to instructed precautions during ADL tasks. 2=Patient will verbalize/demonstrate understanding of assistive devices/modifications for ADL. 3=Patient will improve strength/tolerance for activity to enable patient to perform ADL's. OT Education/Plan Problem List/Assessment Assessment: Decreased Activ Tolerance, Decreased UE Strength, Dependent Transfers, Impaired Bed Mobility, Impaired Cognition, Impaired Coordination, Impaired Funct Balance, Impaired I ADL's, Impaired Self-Care Skills, Restricted Funct UE ROM Discharge Recommendations Plan/Recommendations: Continue POC Therapy Discharge Recommendati: 24 Hour Supervision Treatment Plan/Plan of Care Treatment,Training & Education: Yes Patient would benefit from OT for education, treatment and training to promote independence in ADL's, mobility, safety and/or upper extremity function for ADL's. Plan of Care: ADL Retraining, Caregiver Training, Functional Mobility, Group Exercise/Act as Ind, UE Funct Exercise/Act Treatment Duration: May 16, 2019 Frequency: At least 5 of 7 days/Wk (IRF) Estimated Hrs Per Day: 1.5 hours per day Agreement: Yes Rehab Potential: Guarded Time/GCodes Start Time: 09:00 Stop Time: 09:45 Total Time Billed (hr/min): 45 Billed Treatment Time 1, FA x 45minutes Co-treatment with PT. Please see above note for designated roles. HEMANT MERCEDES OT Apr 25, 2019 12:00
--- NOTE | 2019-04-25 13:26 | Physical Therapy Daily Note ---
PT Daily Note-Current Subjective Pt sitting up in recliner upon arrival. Pt agrees to PT/OT for co-treat for transfer back to bed and EX. Pain Comment: Pt again displays facial grimaces but does not rate. Mental Status Patient Orientation: Person, Confused, Place Transfers SCALE: Activities may be completed with or without assistive devices. 3-Vgkvycsjxg-hwnptbs completes the activity by him/herself with no assistance from a helper. 5-Set-up or Clean-up Assistance-helper sets up or cleans up; patient completes activity. [place] assists only prior to or following the activity. 4-Supervision or Touching Assistance-helper provides verbal cues and/or touching/steadying and/or contact guard assistance as patient completes activity. Assistance may be provided throughout the activity or intermittently. 3-Partial/Moderate Assistance-helper does LESS THAN HALF the effort. [place] lifts, holds or supports trunk or limbs, but provides less than half the effort. 2-Substantial/Maximal Assistance-helper does MORE THAN HALF the effort. [place] lifts or holds trunk or limbs and provides more than half the effort. 9-Tcpvhxjie-dexztc does ALL the effort. Patient does none of the effort to complete the activity. Or, the assistance of 2 or more helpers is required for the patient to complete the activity. If activity was not attempted, code reason: 7-Patient Refused. 9-Not Applicable-not attempted and the patient did not perform the activity before the current illness, exacerbation or injury. 10-Not Attempted due to Environmental Limitations-(lack of equipment, weather restraints, etc.). 88-Not Attempted due to Medical Conditions or Safety Concerns. Roll Left & Right (QC): 1 Gait Training Does the Patient Walk?: No and Walking Goal NOT indicated Exercises Supine Ex: Ankle pumps, Quad Set, Heel Slides, Hip abd/add Supine Reps: 15 Treatments OT/PT co-treated due to pt's fatigue level, and need for skilled assistance of two. Pt. up in chair. Transferred pt. back to bed via glenroy lift. OT worked on UE exercises at bed level while PT focused on LE. PT encouraged pt. to complete 4 bilateral LE exercises, x 10 reps. Pt completed AP, QS, HS, AB/ADD. Pt. alternated with PT and LE exercises. Pt. requires encouragement to participate in all activities. Increased time needed between each exercise. All needs met at end of session. Assessment Current Status: Good Progress Pt is gaining strength although fatigues easily and demonstrates lack of motivation to complete Therapy. PT Short Term Goals Short Term Goals Time Frame: Apr 25, 2019 Roll Left & Right: 3 (mod A) Sit to lyin (modA) Lying to sitting on side of be: 3 (modA) Sit to stand: 3 (modA) Chair/mrs-cl-cswkl transfer: 3 (modA) PT Apparatus Lineman Goals Apparatus Lineman Goals PT Residential Goals Time Frame: May 09, 2019 Roll Left & Right (QC): 3 (Chet) Sit to Lying (QC): 3 (Chet) Lying-Sitting on Side/Bed(QC): 3 (Chet) Sit to Stand (QC): 3 (Chet) Chair/Mwd-pb-Rxiao Xfer(QC): 3 (Chet) Toilet Transfer (QC): 3 (Chet) Car Transfer (QC): 3 (Chet) Does the Patient Walk: No and Walking Goal NOT indicated Walk 10 feet (QC): 88 Walk 50ft with 2 Turns (QC): 88 Walk 150 ft (QC): 88 Walking 10ft on Uneven Surface: 88 1 Step (curb) (QC): 88 4 Steps (QC): 88 12 Steps (QC): 88 Picking up an Object (QC): 88 Does the Pt use WC or Scooter?: Yes Wheel 50 feet with 2 turns (QC: 4 (SBA) Type: Manual Wheel 150 feet: 4 (SBA) Type: Manual PT Plan Problem List Problem List: Activity Tolerance, Functional Strength, Safety, Balance, Gait, Transfer, Bed Mobility, ROM Treatment/Plan Treatment Plan: Continue Plan of Care Treatment Plan: Bed Mobility, Concurrent Therapy, Education, Functional Activity José, Functional Strength, Group Therapy, Gait, Safety, Therapeutic Exercise, Transfers Treatment Duration: May 09, 2019 Frequency: At least 5 of 7 days/Wk (IRF) Estimated Hrs Per Day: 1.5 hours per day Patient and/or Family Agrees t: Yes Safety Risks/Education Patient Education: Transfer Techniques, Correct Positioning, Safety Issues Teaching Recipient: Patient Teaching Methods: Discussion Response to Teaching: Verbalize Understanding Time/GCodes Time In: 1245 Time Out: 1315 Total Billed Treatment Time: 30 Total Billed Treatment 1, FA (10m) & EX (20m) Co-treat with OT 30m BRITTANY HARTMAN PTA Apr 25, 2019 13:26
--- NOTE | 2019-04-25 15:05 | Occupational Ther Daily Note ---
OT Current Status-Daily Note Subjective No pain reported. Pt. states that she is very tired. Appearance Pt. up in recliner. Had transferred there via glenroy with nursing. Ready to transfer back to bed. Mental Status/Objective Patient Orientation: Confused (Decreased processing noted at times.) ADL-Treatment Therapy Code Descriptions/Definitions Functional [place] Measure: 0=Not Assessed/NA 4=Minimal Assistance 1=Total Assistance 5=Supervision or Setup 2=Maximal Assistance 6=Modified [place] 3=Moderate Assistance 7=Complete IndependenceSCALE: Activities may be completed with or without assistive devices. 3-Isnzfzgksb-pyzueaj completes the activity by him/herself with no assistance from a helper. 5-Set-up or Clean-up Assistance-helper sets up or cleans up; patient completes activity. [place] assists only prior to or following the activity. 4-Supervision or Touching Assistance-helper provides verbal cues and/or touching/steadying and/or contact guard assistance as patient completes activity. Assistance may be provided throughout the activity or intermittently. 3-Partial/Moderate Assistance-helper does LESS THAN HALF the effort. [place] lifts, holds or supports trunk or limbs, but provides less than half the effort. 2-Substantial/Maximal Assistance-helper does MORE THAN HALF the effort. [place] l ifts or holds trunk or limbs and provides more than half the effort. 6-Wcjwkckub-gmzcyv does ALL the effort. Patient does none of the effort to complete the activity. Or, the assistance of 2 or more helpers is required for the patient to complete the activity. If activity was not attempted, code reason: 7-Patient Refused. 9-Not Applicable-not attempted and the patient did not perform the activity before the current illness, exacerbation or injury. 10-Not Attempted due to Environmental Limitations-(lack of equipment, weather restraints, etc.). 88-Not Attempted due to Medical Conditions or Safety Concerns. OT/PT co-treated due to pt's fatigue level, and need for skilled assistance of two. Pt. up in chair. Transferred pt. back to bed via glenroy lift. OT worked on UE exercises at bed level while PT focused on LE. OT encouraged pt. to complete 4 bilateral UE exercises, x 10 reps in all planes. Completed shoulder flexion, elbow flexion, hand squeezes, and supination/pronation. Pt. alternated with PT and LE exercises. Pt. requires encouragement to participate in all activities. Increased time needed between each exercise. All needs met at end of session. Education OT Patient Education: Correct positioning, Exercise program, Progress toward Goal/Update tx plan, Purpose of tx/functional activities, Reviewed precautions, Rehab process, Transfer techniques Teaching Recipient: Patient Teaching Methods: Demonstration, Discussion Response to Teaching: Verbalize Understanding, Return Demonstration OT Short Term Goals Short Term Goals Time Frame: May 02, 2019 Eatin Oral hygiene: 4 Toileting hygiene: 3 Shower/bathe self: 3 Upper body dressin Lower body dressin Putting on/taking off footwear: 3 OT Fdc Goals Fdc Goals Time Frame: May 16, 2019 Eating (QC): 6 Oral Hygiene (QC): 6 Toileting Hygiene (QC): 5 Shower/Bathe Self (QC): 4 Upper Body Dressing (QC): 5 Lower Body Dressing (QC): 5 On/Off Footwear (QC): 5 Additional Goals: 1-Demonstrate ADL Tasks, 2-Verbalize Understanding, 3- ImproveStrength/José 1=Demonstrate adherence to instructed precautions during ADL tasks. 2=Patient will verbalize/demonstrate understanding of assistive devices/modifications for ADL. 3=Patient will improve strength/tolerance for activity to enable patient to perform ADL's. OT Education/Plan Problem List/Assessment Assessment: Decreased Activ Tolerance, Decreased UE Strength, Dependent Transfers, Impaired Bed Mobility, Impaired Cognition, Impaired Coordination, Impaired Funct Balance, Impaired I ADL's, Impaired Self-Care Skills, Restricted Funct UE ROM Discharge Recommendations Plan/Recommendations: Continue POC Therapy Discharge Recommendati: 24 Hour Supervision, Post Acute OT Treatment Plan/Plan of Care Treatment,Training & Education: Yes Patient would benefit from OT for education, treatment and training to promote independence in ADL's, mobility, safety and/or upper extremity function for ADL's. Plan of Care: ADL Retraining, Caregiver Training, Functional Mobility, Group Exercise/Act as Ind, UE Funct Exercise/Act Treatment Duration: May 16, 2019 Frequency: At least 5 of 7 days/Wk (IRF) Estimated Hrs Per Day: 1.5 hours per day Agreement: Yes Rehab Potential: Guarded Time/GCodes Start Time: 12:45 Stop Time: 13:15 Total Time Billed (hr/min): 30 Billed Treatment Time 1, FA x 15minutes, ADL x 15minutes HEMANT MERCEDES OT Apr 25, 2019 15:05
--- NOTE | 2019-04-25 15:53 | NUR ---
"RD ASSESSMENT PMHx: HTN; hypercholesterolemia; GERD; DM; ileostomy; multiple colon perforations PT INTERACTION: Pt was awake and pleasant during nutrition follow-up. Note pt is currently on TPN receiving 1800 ml formula providing 1750 kcal (23 kcal/kg), 100 g Pro (1.3 g Pro/kg), cycled from 2062-7211. Formula appears to be meeting pts current needs. Pt states tolerating the formula well. Pt states ostomy output is good. ABNORMAL NUTRITION-RELATED LAB VALUES LOW: Ca 8.4; Pro 6.0; alb 2.0 HIGH: Cl 115; BUN 57; glu 156; bili 4.0; AST 79; ALT 72; alkphos 140; TG 236 Est. kcal needs: 5049-7986 kcal | 20-25 kcal/kg Est. Pro needs: 90-106 g Pro | 1.2-1.4 g Pro/kg PES STATEMENT: Altered GI function (NC-1.4) related to alteration in GI tract structure as evidenced by PMH of multiple colon perforations requiring surgery INTERVENTION: Pt is currently NPO. Would recommend continuation of TPN of 1800ml at rate of 120 ml providing 1750 kcal and 100 g Pro, cycled from 4970-2295. Will continue to follow and reassess as pt needs and status change. MONITOR/EVALUATE: PO Intake; Plan of Care; Hydration Status; Weight Status; Lab Values Ambrose Cuenca, MS, RD, LD"
[2019-04-25] MEDS ORDERED: POTASSIUM ACETATE IV SCH ×11 (17:00)
[2019-04-25] MEDS ORDERED: SODIUM ACETATE IV SCH ×11 (17:00)
[2019-04-25] MEDS ORDERED: [UNRECOGNIZED DRUG - OTHER] IV SCH ×11 (17:00)
--- NOTE | 2019-04-25 17:12 | NUR ---
Weekly Team Conference Reviewed weekly team conference summary with patient's daughter/DPOA Jeni Samson. Jeni reported that surgeon(s) had indicated patient would likely remain hospitalized until reversal of ileostomy could be completed so that she could begin oral or PEG feedings and discontinue TPN. Jeni understands per her own research that TPN patients have few extended care facility options and that she only found places in [place] or [place], none local or in area. Per Jeni and family, they believe it crucial to patient recovery that she have family available for support and that great distances would be a hardship on all. Jeni resides with patient, son Bill is local also, both have employment obligations. The plan is that involved physicians will come together regarding an updated care plan relative to patient's current condition and status. Patient, family, and ARU team will then partner together to coordinate appropriate and realistic goals and care environments. Jeni and family members have moved forward on a [facility] Medicaid application assuming patient will have an extended stay in a [facility] facility; community SNF placement is highly unlikely while patient remains on TPN. Additionally, patient's DIL/Agnes Samson and granddaughter are RN's at [facility] and this is their preferred SNF if that becomes an option. Continue to follow, await physician/surgeon updated care plan.
[2019-04-25 17:50] VITALS: BP 116/65
[2019-04-26 06:04] VITALS: BP 149/62
[2019-04-26 06:19] LABS: ALANINE AMINOTRANSFERASE 80 U/L (0-55); ALBUMIN 2.2 GM/DL (3.2-4.5); ALKALINE PHOSPHATASE 150 U/L (40-136); BILIRUBIN,TOTAL 4.7 MG/DL (0.1-1.0); BUN/CREATININE RATIO 79; CALCIUM 8.9 MG/DL (8.5-10.1); CARBON DIOXIDE 21 MMOL/L (21-32); CHLORIDE 111 MMOL/L (98-107); CREATININE SERUM 0.72 MG/DL (0.60-1.30); GFR ESTIMATED > 60; GLUCOSE 121 MG/DL (70-105); PHOSPHORUS 4.7 MG/DL (2.3-4.7); POTASSIUM 4.5 MMOL/L (3.6-5.0); SODIUM 141 MMOL/L (135-145); TOTAL PROTEIN 6.7 GM/DL (6.4-8.2)
[2019-04-26] MEDS: inSUlin ASPART (NovoLOG) 1 UNIT/0.01 ML (CHARGE PER UNIT) SC SCH ×3 (06:23→18:28)
[2019-04-26] MEDS: CATHETER FLUSH 10 ML SYR IV SCH ×3 (06:23→22:15)
[2019-04-26] MEDS ORDERED: ALTEPLASE 2 MG (CATHFLO) IV ONE (07:45)
[2019-04-26] MEDS: fentaNYL INJECTION 100 MCG/2 ML AMP IV PRN (08:05)
[2019-04-26] MEDS: FAMOTIDINE 20 MG (PEPCID) TABLET PO SCH (08:07)
[2019-04-26] MEDS: SERTRALINE 50 MG (ZOLOFT) TABLET PO SCH (08:07)
[2019-04-26] MEDS: meTOprolol TARTRATE 50 MG (LOPRESSOR) TAB PO SCH ×2 (08:07→22:13)
[2019-04-26] MEDS: OXYBUTYNIN (DITROPAN) 5 MG TAB PO SCH ×2 (08:07→22:13)
[2019-04-26] MEDS: ENALAPRIL 5 MG (VASOTEC) TAB PEG SCH (08:07)
[2019-04-26] MEDS: NYSTATIN ORAL SUSP 5 ML UDC PO SCH ×4 (08:07→22:14)
[2019-04-26] MEDS: APIXABAN 2.5 MG (ELIQUIS) TABLET PO SCH ×2 (08:07→22:13)
[2019-04-26] MEDS: FLUTICASONE NASAL SPRAY (FLONASE) 16 GM BTL NS SCH (08:08)
[2019-04-26] MEDS: VISC LIDOCAINE/ANTACID/DIPHENHYDRAMINE 1:1:1 120 ML PO SCH ×12 (08:10→22:14)
[2019-04-26] MEDS: fentaNYL PATCH 25 MCG (DURAGESIC) TD SCH (09:53)
[2019-04-26] MEDS: FENTANYL PATCH REMOVAL TP SCH (09:53)
--- NOTE | 2019-04-26 09:55 | Physical Therapy Daily Note ---
PT Daily Note-Current Subjective Pt. in bed supine, shares that she is cold and very tired and did not sleep last night because she was in so much pain. Pt. only c/o pain today when rolled and moved. pt. resists sup to side to sit but after up she had no c/o Pain Comment: pain reported in abdomen during TRFs and rolling Mental Status Patient Orientation: Person, Time Attachments: Oxygen, Drains, Wing Catheter, Other-See Comments ([place]), IV Transfers SCALE: Activities may be completed with or without assistive devices. 4-Chfuyswdgc-vxudpyf completes the activity by him/herself with no assistance from a helper. 5-Set-up or Clean-up Assistance-helper sets up or cleans up; patient completes activity. [place] assists only prior to or following the activity. 4-Supervision or Touching Assistance-helper provides verbal cues and/or touching/steadying and/or contact guard assistance as patient completes activity. Assistance may be provided throughout the activity or intermittently. 3-Partial/Moderate Assistance-helper does LESS THAN HALF the effort. [place] lifts, holds or supports trunk or limbs, but provides less than half the effort. 2-Substantial/Maximal Assistance-helper does MORE THAN HALF the effort. [place] l ifts or holds trunk or limbs and provides more than half the effort. 5-Mmbjkveyb-zzzmhy does ALL the effort. Patient does none of the effort to complete the activity. Or, the assistance of 2 or more helpers is required for the patient to complete the activity. If activity was not attempted, code reason: 7-Patient Refused. 9-Not Applicable-not attempted and the patient did not perform the activity before the current illness, exacerbation or injury. 10-Not Attempted due to Environmental Limitations-(lack of equipment, weather restraints, etc.). 88-Not Attempted due to Medical Conditions or Safety Concerns. Roll Left & Right (QC): 3 Sit to Lying (QC): 2 Lying to Sitting/Side of Bed(Q: 2 Exercises Supine Ex: Ankle pumps (HC stretches), Rolling (assisted x2), Heel Slides (assisted), Short Arc Quads, Scooting (ssisted), Hip abd/add (assisted) Supine Reps: 12 Treatments co Rx with OT for bed TRFs and rolling as well as sitting EOB balance while assisted for bathing and shampoo. initially requiring max assist to sit then acclimating to CGA, Co Rx secondary to pts low functioning , fully dependent status and complexity of tubes and pain c/o at times Assessment Current Status: Fair Progress improved sitting balance PT Short Term Goals Short Term Goals Time Frame: Apr 25, 2019 Roll Left & Right: 3 (mod A) Sit to lyin (modA) Lying to sitting on side of be: 3 (modA) Sit to stand: 3 (modA) Chair/sbj-gu-mtvmt transfer: 3 (modA) PT Canvas Shrinker Goals Care Home Goals PT Care Home Goals Time Frame: May 09, 2019 Roll Left & Right (QC): 3 (Chet) Sit to Lying (QC): 3 (Chet) Lying-Sitting on Side/Bed(QC): 3 (Chet) Sit to Stand (QC): 3 (Chet) Chair/Zmg-ob-Vvlqa Xfer(QC): 3 (Chet) Toilet Transfer (QC): 3 (Chet) Car Transfer (QC): 3 (Chet) Does the Patient Walk: No and Walking Goal NOT indicated Walk 10 feet (QC): 88 Walk 50ft with 2 Turns (QC): 88 Walk 150 ft (QC): 88 Walking 10ft on Uneven Surface: 88 1 Step (curb) (QC): 88 4 Steps (QC): 88 12 Steps (QC): 88 Picking up an Object (QC): 88 Does the Pt use WC or Scooter?: Yes Wheel 50 feet with 2 turns (QC: 4 (SBA) Type: Manual Wheel 150 feet: 4 (SBA) Type: Manual PT Plan Treatment/Plan Treatment Plan: Continue Plan of Care Treatment Plan: Bed Mobility, Concurrent Therapy, Education, Functional Activity José, Functional Strength, Group Therapy, Gait, Safety, Therapeutic Exercise, Transfers Treatment Duration: May 09, 2019 Frequency: At least 5 of 7 days/Wk (IRF) Estimated Hrs Per Day: 1.5 hours per day Patient and/or Family Agrees t: Yes Safety Risks/Education Patient Education: Transfer Techniques, Correct Positioning, Disease Process, Safety Issues Teaching Recipient: Patient Teaching Methods: Discussion Response to Teaching: Verbalize Understanding, Reinforcement Needed Time/GCodes Time In: 900 Time Out: 1000 Total Billed Treatment Time: 60 Total Billed Treatment 1,EX15m,FA45m co Rx with OT VIKTOR GARCIA BRINE TANK SEPARATOR OPERATOR Apr 26, 2019 09:55
--- NOTE | 2019-04-26 09:59 | Occupational Ther Daily Note ---
OT Current Status-Daily Note Subjective Pt lying in bed, alert. Pt c/o fatigue. After encouragement, pt agrees to therapy. Mental Status/Objective Patient Orientation: Person, Place, Time, Situation Attachments: Drains (wound care), Wing Catheter, IV, PEG Tube ADL-Treatment Co-treatment with PT due to pt's fatigue, lethargy, medical status, and need of skilled treatment x 2. When handed wash cloth pt able to wash face, UE's and chest. Assist to wash lower body. PT assisted with turning pt and educating pt on how to initiate turning for bed mobility. Pt able to bring oral swab to mouth in lying and sitting EOB. OT facilitated hand placement when sitting on side of bed, as well as upright mobility. PT facilitated trunk control and upright mobility while behind pt. on side of bed. Pt. required max x 2 for supine <--> sit. Retropulsive and anxious at first. Pt was able to sit EOB with SBA x2 for safety. After therapy, pt lying on R side to decrease pressure on buttocks with call light/phone in reach. All needs met in room. Therapy Code Descriptions/Definitions Functional [place] Measure: 0=Not Assessed/NA 4=Minimal Assistance 1=Total Assistance 5=Supervision or Setup 2=Maximal Assistance 6=Modified [place] 3=Moderate Assistance 7=Complete IndependenceSCALE: Activities may be completed with or without assistive devices. 5-Wadrgvorhq-foiruzc completes the activity by him/herself with no assistance from a helper. 5-Set-up or Clean-up Assistance-helper sets up or cleans up; patient completes activity. [place] assists only prior to or following the activity. 4-Supervision or Touching Assistance-helper provides verbal cues and/or touching/steadying and/or contact guard assistance as patient completes activity. Assistance may be provided throughout the activity or intermittently. 3-Partial/Moderate Assistance-helper does LESS THAN HALF the effort. [place] lifts, holds or supports trunk or limbs, but provides less than half the effort. 2-Substantial/Maximal Assistance-helper does MORE THAN HALF the effort. [place] lifts or holds trunk or limbs and provides more than half the effort. 1-Ecsemshre-vrvlbc does ALL the effort. Patient does none of the effort to comp lete the activity. Or, the assistance of 2 or more helpers is required for the patient to complete the activity. If activity was not attempted, code reason: 7-Patient Refused. 9-Not Applicable-not attempted and the patient did not perform the activity before the current illness, exacerbation or injury. 10-Not Attempted due to Environmental Limitations-(lack of equipment, weather restraints, etc.). 88-Not Attempted due to Medical Conditions or Safety Concerns. Oral Hygiene (QC): 5 Shower/Bathe Self (QC): 1 Lower Body Dressing (QC): 1 On/Off Footwear: 1 Toileting Hygiene (QC): 1 (Wing catheter) Toilet Transfer (QC): 88 OT Short Term Goals Short Term Goals Time Frame: May 02, 2019 Eatin Oral hygiene: 4 Toileting hygiene: 3 Shower/bathe self: 3 Upper body dressin Lower body dressin Putting on/taking off footwear: 3 OT Manufacturing Sr Engineer Goals Manufacturing Sr Engineer Goals Time Frame: May 16, 2019 Eating (QC): 6 Oral Hygiene (QC): 6 Toileting Hygiene (QC): 5 Shower/Bathe Self (QC): 4 Upper Body Dressing (QC): 5 Lower Body Dressing (QC): 5 On/Off Footwear (QC): 5 Additional Goals: 1-Demonstrate ADL Tasks, 2-Verbalize Understanding, 3- ImproveStrength/José 1=Demonstrate adherence to instructed precautions during ADL tasks. 2=Patient will verbalize/demonstrate understanding of assistive devices/modifications for ADL. 3=Patient will improve strength/tolerance for activity to enable patient to perform ADL's. OT Education/Plan Problem List/Assessment Assessment: Decreased Activ Tolerance, Decreased UE Strength, Dependent Transfers, Impaired Cognition, Impaired Coordination, Impaired Funct Balance, Impaired Self-Care Skills, Restricted Funct UE ROM Discharge Recommendations Plan/Recommendations: Continue POC Treatment Plan/Plan of Care Patient would benefit from OT for education, treatment and training to promote independence in ADL's, mobility, safety and/or upper extremity function for ADL's. Plan of Care: ADL Retraining, Caregiver Training, Functional Mobility, Group Exercise/Act as Ind, UE Funct Exercise/Act Treatment Duration: May 16, 2019 Frequency: At least 5 of 7 days/Wk (IRF) Estimated Hrs Per Day: 1.5 hours per day Agreement: Yes Rehab Potential: Guarded Time/GCodes Start Time: 09:00 Stop Time: 10:00 Total Time Billed (hr/min): 60 Billed Treatment Time 1 visit-ADL 4 (60 min) GEOVANNI FLORES Apr 26, 2019 09:59
--- NOTE | 2019-04-26 10:49 | PM&R Progress Note ---
Subjective HPI/CC On Admission Date Seen by Provider: Apr 26, 2019 Time Seen by Provider: 09:00 Subjective/Events-last exam Spoke with Dr. Cohen, no chance of reversing the ileostomy any time soon, may take six months or may actually remain with two ileostomies Doing bed exercises Picc line dysfunction, awaiting picc line nurse Psych issues with anxiety is improved but overall prognosis guarded Overall poor prognosis long-term. Wound vac managed by Sunny and Dr. Cohen. Pt needs fdc Bed ridden state noted Pt overall has a very long recovery expected and prognosis is guarded at best. LFTs are elevated due to TPN cholestasis. Blood sugars reviewed Cognition is an issue Conferred with RN Check meds and labs Reviewed therapy notes Long recovery expected Review of Systems General: Fatigue Neurological: Confusion Objective Exam Vital Signs Vital Signs Date Time Temp Pulse Resp B/P (MAP) Pulse Ox O2 Delivery O2 Flow Rate FiO2 04/26/19 17:35 36.4 75 18 101/55 (70) 94 Nasal Cannula 1.00 Capillary Refill : General Appearance: No Apparent Distress, Chronically ill, Cachetic HEENT: PERRL/EOMI; No Pale Conjunctivae (L), No Pale Conjunctivae (R), No Scleral Icterus (L), No Scleral Icterus (R) Neck: Non Tender, Supple Respiratory: Chest Non Tender, Lungs Clear, Normal Breath Sounds, No Accessory Muscle Use, No Respiratory Distress Cardiovascular: Regular Rate, Rhythm, No Edema, No Murmur, Normal Peripheral Pulses, Systolic Murmur Gastrointestinal: Normal Bowel Sounds, No Organomegaly, No Pulsatile Mass, Non Tender, Soft Back: Normal Inspection, No CVA Tenderness, No Vertebral Tenderness Extremity: Normal Inspection, Non Tender, No Calf Tenderness, Pedal Edema (2+ edema on LLE, 1+ edema on RLE) Neurologic/Psychiatric: Alert, No Motor/Sensory Deficits, Normal 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 FIM Transfers Therapy Code Descriptions/Definitions Functional [place] Measure: 0=Not Assessed/NA 4=Minimal Assistance 1=Total Assistance 5=Supervision or Setup 2=Maximal Assistance 6=Modified [place] 3=Moderate Assistance 7=Complete IndependenceSCALE: Activities may be completed with or without assistive devices. 8-Uylsnbfhff-vqtpdlf completes the activity by him/herself with no assistance from a helper. 5-Set-up or Clean-up Assistance-helper sets up or cleans up; patient completes activity. [place] assists only prior to or following the activity. 4-Supervision or Touching Assistance-helper provides verbal cues and/or touching/steadying and/or contact guard assistance as patient completes activity. Assistance may be provided throughout the activity or intermittently. 3-Partial/Moderate Assistance-helper does LESS THAN HALF the effort. [place] lifts, holds or supports trunk or limbs, but provides less than half the effort. 2-Substantial/Maximal Assistance-helper does MORE THAN HALF the effort. [place] lifts or holds trunk or limbs and provides more than half the effort. 9-Zekqbsdal-gttibx does ALL the effort. Patient does none of the effort to complete the activity. Or, the assistance of 2 or more helpers is required for the patient to complete the activity. If activity was not attempted, code reason: 7-Patient Refused. 9-Not Applicable-not attempted and the patient did not perform the activity before the current illness, exacerbation or injury. 10-Not Attempted due to Environmental Limitations-(lack of equipment, weather restraints, etc.). 88-Not Attempted due to Medical Conditions or Safety Concerns. Roll Left to Right (QC): 3 Sit to Lying (QC): 2 Sit to Stand (QC): 1 Chair/Nzl-kr-Tjfbg Xfer(QC): 1 Car Transfer (QC): 88 Gait Training Does the Patient Walk?: No and Walking Goal NOT indicated Walk 10 feet (QC): 88 Walk 50 ft with 2 Turns(QC): 88 Walk 150 ft (QC): 88 Walking 10ft/uneven surface-QC: 88 Wheelchair Training Does the Pt Use a Wheelchair?: Yes Wheel 50 ft with 2 turns (QC): 88 Wheel 150 ft (QC): 88 Type of Wheelchair: Manual Stair Training 1 Step (curb) (QC): 88 4 Steps (QC): 88 12 Steps (QC): 88 Balance Picking up an Object (QC): 88 ADL-Treatment Eating (QC): 88 (Pt. 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 Diabetes mellitus Low albumin TPN required History of respiratory failure Elevated liver enzymes due to cholestasis from TPN Anemia receiving iron infusions Confusion with undercurrent of dementia Decubitus ulcers Tachycardia consulted Plan: Inpatient rehab protocol TPN Wound care for pressure ulcers Wound vac eval Air bed TPN wean Monitor labs Iron infusions Chey lift and bedridden state Appreciate Cardiology for tachycardia management Advance diet to wean TPN Dr Cohen to speak to family (1) Critical illness myopathy Status: Acute (2) Essential hypertension Status: Chronic (3) Abdominal pain (4) HLP (5) Headache Status: Acute (6) Perforated abdominal viscus Status: Acute (7) Postoperative abdominal pain Status: Acute (8) IDDM (insulin dependent diabetes mellitus) Status: Chronic YARON GALLAGHER DO Apr 26, 2019 10:48
--- NOTE | 2019-04-26 14:36 | Therapy Group Daily Note ---
Therapy Daily Group Note Patient Education Topic Home Safety, Fall Prevention, Home Safety, Exercises Exercises LE Seated Exercise, Balance, Sit to/from Stand, Gross Motor, Other (Balance and functional safety) Session Ratio (pt:therapist): 4:1 Goal of Session: Education on ARU Expectations, Home Safety Strategies, UE/LE Strengthing, Safety with Transfers, Use of Adaptive Equipment Goal Met for this Session: Yes Pt Benefit of Group: Contributions to Others, F/U Use of Strategies @Home, Increased Functional Safety, Recognition of Peers, Socialization Other/Notes Pt TD for transfer from bed to recliner chair with glenroy lift, transported to group therapy session. Pt participated in group ice breaker, including in troduction of self and interactive question of favorite vacation location. Pt participated in group through socialization, active listening and responding. Group education session consisted of overview of balance physiology, importance of strength and gait training, hazards that increase fall risk, and use of FWW/ ambulatory assists that aide in functional balance. Pt answers questions and responds to peers when others initiate. Pt brought back to room in chair; call light in reach, all needs met. Start Time: 13:00 Stop Time: 14:20 Total Billed Treatment Time: 80 Total Billed Treatment 1, GRP (80) YANIRA FREEMAN OTR Apr 26, 2019 14:36
--- NOTE | 2019-04-26 15:09 | Speech Therapy Daily Note ---
Speech Daily Progress Note Subjective Date Seen by Provider: Apr 26, 2019 Time Seen by Provider: 00:30 Patient was resting in her bed following the group session when I entered her room. Objective Patient completed simple memory exercises with 90% accuracy given minimal cues. Assessment Assessment Current Status: Good Progress Treatment Plan Continue Plan of Care Speech Short Term Goals Short Term Goals Short Term Goals 1) Patient will complete memory tasks related to her daily needs at 90% or greater with minimal cues. 2) Patient will complete problem solving tasks related to her daily needs at 90% or greater with minimal cues. 3) Patient will complete safety awareness tasks related to her daily needs at 90% or greater with minimal cues. Speech [facility] Goals Real Estate Management Specialist Goals Patient will improve cognitive-communication necessary for safety and daily living tasks with minimal assist. Speech-Plan Patient/Family Goals Patient/Family Goals: Patient is planning on returning to her home where she lives with her daughter. Treatment Plan Speech Therapy Treatment Plan: Continue Plan of Care Patient is demonstrating good progress with ST goals. Treatment Duration: May 03, 2019 Frequency: 5 times per week Estimated Hrs Per Day: .5 hour per day Rehab Potential: Guarded Barriers to Learning: Patient has mild cognitive deficits, medical status Pt/Family Agrees to Plan: Yes Safety Risks/Education Teaching Recipient: Patient Teaching Methods: Demonstration, Discussion Response to Teaching: Verbalize Understanding, Return Demonstration Education Topics Provided: Continued communication of her wants/needs Time Speech Therapy Time In: 14:20 Speech Therapy Time Out: 14:50 Total Billed Time: 30 Billed Treatment Time 1, BUCKY Murray Apr 26, 2019 15:09
[2019-04-26] MEDS ORDERED: POTASSIUM ACETATE IV SCH ×11 (17:00)
[2019-04-26] MEDS ORDERED: [UNRECOGNIZED DRUG - OTHER] IV SCH ×11 (17:00)
[2019-04-26] MEDS ORDERED: SODIUM ACETATE IV SCH ×11 (17:00)
[2019-04-26 17:35] VITALS: BP 101/55
[2019-04-26] MEDS: hydrOXYzine (VISTARIL/ATARAX) 25 MG capsule/tablet PO PRN (22:15)
[2019-04-27] MEDS: WATER (STERILE) FOR INJECTION 10 ML ONE
[2019-04-27 06:06] VITALS: BP 162/70
[2019-04-27] MEDS: inSUlin ASPART (NovoLOG) 1 UNIT/0.01 ML (CHARGE PER UNIT) SC SCH ×4 (06:16→18:37)
[2019-04-27] MEDS: CATHETER FLUSH 10 ML SYR IV SCH ×3 (06:16→21:00)
[2019-04-27 06:50] LABS: ALANINE AMINOTRANSFERASE 67 U/L (0-55); ALBUMIN 1.9 GM/DL (3.2-4.5); ALKALINE PHOSPHATASE 135 U/L (40-136); BILIRUBIN,TOTAL 4.2 MG/DL (0.1-1.0); BUN/CREATININE RATIO 72; CALCIUM 8.1 MG/DL (8.5-10.1); CARBON DIOXIDE 19 MMOL/L (21-32); CHLORIDE 110 MMOL/L (98-107); CREATININE SERUM 0.68 MG/DL (0.60-1.30); GFR ESTIMATED > 60; GLUCOSE 224 MG/DL (70-105); MAGNESIUM 1.8 MG/DL (1.6-2.4); PHOSPHORUS 3.9 MG/DL (2.3-4.7); POTASSIUM 4.1 MMOL/L (3.6-5.0); SODIUM 140 MMOL/L (135-145); TOTAL PROTEIN 6.1 GM/DL (6.4-8.2)
--- NOTE | 2019-04-27 07:47 | Physical Therapy Daily Note ---
PT Daily Note-Current Subjective Agreeable to PT. Reports her tongue feels thick and coated. Nursing aware. Transfers SCALE: Activities may be completed with or without assistive devices. 2-Wvkbqkxddy-mpjplge completes the activity by him/herself with no assistance from a helper. 5-Set-up or Clean-up Assistance-helper sets up or cleans up; patient completes activity. [place] assists only prior to or following the activity. 4-Supervision or Touching Assistance-helper provides verbal cues and/or touching/steadying and/or contact guard assistance as patient completes activity. Assistance may be provided throughout the activity or intermittently. 3-Partial/Moderate Assistance-helper does LESS THAN HALF the effort. [place] lifts, holds or supports trunk or limbs, but provides less than half the effort. 2-Substantial/Maximal Assistance-helper does MORE THAN HALF the effort. [place] lifts or holds trunk or limbs and provides more than half the effort. 3-Ltgtnowfd-hhfoad does ALL the effort. Patient does none of the effort to complete the activity. Or, the assistance of 2 or more helpers is required for the patient to complete the activity. If activity was not attempted, code reason: 7-Patient Refused. 9-Not Applicable-not attempted and the patient did not perform the activity before the current illness, exacerbation or injury. 10-Not Attempted due to Environmental Limitations-(lack of equipment, weather restraints, etc.). 88-Not Attempted due to Medical Conditions or Safety Concerns. Treatments Co treat with OT due to the need for 2 skilled clinicians to best treat patient and address all functional needs. Pt transferred sup to sit EOB with max of 1 assist and max verbal cues for sequencing. Sat EOB x 30 minutes; OT addressed UE use to bring her hands to her face and complete ADL care/tasks as PT addressed foot placement on the floor and seated balance with work on trunk control and awareness in space for balance. In sitting, also performed light U/LE ther ex to challange balance as well as facilitate motor movement. Pt in bed in chair position of bed with OT present post PT treatment. Assessment Pt progressing slowly. Needs heavy cues and assist to complete and stay on task. Her trunk control did seem a bit better today. PT Short Term Goals Short Term Goals Time Frame: Apr 25, 2019 Roll Left & Right: 3 (mod A) Sit to lyin (modA) Lying to sitting on side of be: 3 (modA) Sit to stand: 3 (modA) Chair/mfl-az-hlvxw transfer: 3 (modA) PT Residential Concierge Goals Snf Goals PT Snf Goals Time Frame: May 09, 2019 Roll Left & Right (QC): 3 (Chet) Sit to Lying (QC): 3 (Chet) Lying-Sitting on Side/Bed(QC): 3 (Chet) Sit to Stand (QC): 3 (Chet) Chair/Uqj-jf-Ecary Xfer(QC): 3 (Chet) Toilet Transfer (QC): 3 (Chet) Car Transfer (QC): 3 (Chet) Does the Patient Walk: No and Walking Goal NOT indicated Walk 10 feet (QC): 88 Walk 50ft with 2 Turns (QC): 88 Walk 150 ft (QC): 88 Walking 10ft on Uneven Surface: 88 1 Step (curb) (QC): 88 4 Steps (QC): 88 12 Steps (QC): 88 Picking up an Object (QC): 88 Does the Pt use WC or Scooter?: Yes Wheel 50 feet with 2 turns (QC: 4 (SBA) Type: Manual Wheel 150 feet: 4 (SBA) Type: Manual PT Plan Problem List Problem List: Activity Tolerance, Functional Strength, Safety, Balance, Tr ansfer, Bed Mobility Treatment/Plan Treatment Plan: Continue Plan of Care Treatment Plan: Bed Mobility, Concurrent Therapy, Education, Functional Activity José, Functional Strength, Group Therapy, Gait, Safety, Therapeutic Exercise, Transfers Treatment Duration: May 09, 2019 Frequency: At least 5 of 7 days/Wk (IRF) Estimated Hrs Per Day: 1.5 hours per day Patient and/or Family Agrees t: Yes Safety Risks/Education Patient Education: Safety Issues Teaching Recipient: Patient Teaching Methods: Discussion Response to Teaching: Reinforcement Needed Time/GCodes Time In: 700 Time Out: 745 Total Billed Treatment Time: 45 Total Billed Treatment visit 45 FA (co treat with OT) GEOVANNI LOMAS PT Apr 27, 2019 07:47
--- NOTE | 2019-04-27 07:56 | Occupational Ther Daily Note ---
OT Current Status-Daily Note Subjective Pt. grimaces with pain but does not report pain level with movement. Has had pain meds. Reports dry mouth. Therapy assists with ice chips and lubricating jelly on lips. Appearance Pt. in bed. Awake. Mental Status/Objective Patient Orientation: Confused Attachments: Colostomy/Ileostomy, Wing Catheter, IV, Oxygen Towards end of session, pt. became slightly confused. Did not know where she was. ADL-Treatment Therapy Code Descriptions/Definitions Functional [place] Measure: 0=Not Assessed/NA 4=Minimal Assistance 1=Total Assistance 5=Supervision or Setup 2=Maximal Assistance 6=Modified [place] 3=Moderate Assistance 7=Complete IndependenceSCALE: Activities may be completed with or without assistive devices. 0-Igvmfjfzux-ddbjnwb completes the activity by him/herself with no assistance from a helper. 5-Set-up or Clean-up Assistance-helper sets up or cleans up; patient completes activity. [place] assists only prior to or following the activity. 4-Supervision or Touching Assistance-helper provides verbal cues and/or touching/steadying and/or contact guard assistance as patient completes activity. Assistance may be provided throughout the activity or intermittently. 3-Partial/Moderate Assistance-helper does LESS THAN HALF the effort. [place] lifts, holds or supports trunk or limbs, but provides less than half the effort. 2-Substantial/Maximal Assistance-helper does MORE THAN HALF the effort. [place] lifts or holds trunk or limbs and provides more than half the effort. 7-Iruluzoyh-sggxgs does ALL the effort. Patient does none of the effort to complete the activity. Or, the assistance of 2 or more helpers is required for the patient to complete the activity. If activity was not attempted, code reason: 7-Patient Refused. 9-Not Applicable-not attempted and the patient did not perform the activity before the current illness, exacerbation or injury. 10-Not Attempted due to Environmental Limitations-(lack of equipment, weather restraints, etc.). 88-Not Attempted due to Medical Conditions or Safety Concerns. Oral Hygiene (QC): 4 (SBA. Pt. reports that her tongue feels "coated." OT handed her wet brush and pt. brushes it. Becames nauseated from gag reflex.) On/Off Footwear: 1 Other Treatment Partial co-treat completed due to pt's fatigue status, and overall need of two skilled therapists. OT facilitated ADL skills with brushing hair, mouth, washing hands, and hand placement on side of bed. PT facilitated mobility and balance. Pt. transferred supine-sit with max x 2. Sat on side of bed with SBA/min assist approximately 15 minutes. Multiple cues and encouragement required as pt. wants to lay back down. Pt. did transfer back to supine with max x 2. Bed placed in chair position. OT facilitated UE AROM x 3 exercises x 15 reps in all planes. PT facilitated LE exercises. Pt. laid back down into supine position and requires max assist to roll. OT positions pillow and all needs are met. Education OT Patient Education: Correct positioning, Exercise program, Modified ADL techniques, Progress toward Goal/Update tx plan, Purpose of tx/functional activities, Reviewed precautions, Rehab process, Transfer techniques Teaching Recipient: Patient Teaching Methods: Demonstration, Discussion Response to Teaching: Verbalize Understanding, Return Demonstration OT Short Term Goals Short Term Goals Time Frame: May 02, 2019 Eatin Oral hygiene: 4 Toileting hygiene: 3 Shower/bathe self: 3 Upper body dressin Lower body dressin Putting on/taking off footwear: 3 OT Coremaker Experimental Goals Coremaker Experimental Goals Time Frame: May 16, 2019 Eating (QC): 6 Oral Hygiene (QC): 6 Toileting Hygiene (QC): 5 Shower/Bathe Self (QC): 4 Upper Body Dressing (QC): 5 Lower Body Dressing (QC): 5 On/Off Footwear (QC): 5 Additional Goals: 1-Demonstrate ADL Tasks, 2-Verbalize Understanding, 3- ImproveStrength/Jsoé 1=Demonstrate adherence to instructed precautions during ADL tasks. 2=Patient will verbalize/demonstrate understanding of assistive devices/modifications for ADL. 3=Patient will improve strength/tolerance for activity to enable patient to perform ADL's. OT Education/Plan Problem List/Assessment Assessment: Decreased Activ Tolerance, Decreased UE Strength, Dependent Transfers, Impaired Bed Mobility, Impaired Cognition, Impaired Coordination, Impaired Funct Balance, Impaired I ADL's, Impaired Self-Care Skills, Restricted Funct UE ROM Discharge Recommendations Plan/Recommendations: Continue POC Therapy Discharge Recommendati: 24 Hour Supervision Treatment Plan/Plan of Care Treatment,Training & Education: Yes Patient would benefit from OT for education, treatment and training to promote independence in ADL's, mobility, safety and/or upper extremity function for ADL's. Plan of Care: ADL Retraining, Caregiver Training, Functional Mobility, Group Exercise/Act as Ind, UE Funct Exercise/Act Treatment Duration: May 16, 2019 Frequency: At least 5 of 7 days/Wk (IRF) Estimated Hrs Per Day: 1.5 hours per day Agreement: Yes Rehab Potential: Guarded Time/GCodes Start Time: 07:00 Stop Time: 08:00 Total Time Billed (hr/min): 60 Billed Treatment Time [id number] 1, FA x 45minutes co-treatment with PT [id number] Ex x 15minutes HEMANT MERCEDES OT Apr 27, 2019 07:56
[2019-04-27] MEDS: NYSTATIN ORAL SUSP 5 ML UDC PO SCH ×4 (08:57→21:00)
[2019-04-27] MEDS: APIXABAN 2.5 MG (ELIQUIS) TABLET PO SCH ×2 (08:57→21:00)
[2019-04-27] MEDS: VISC LIDOCAINE/ANTACID/DIPHENHYDRAMINE 1:1:1 120 ML PO SCH ×12 (08:57→21:01)
[2019-04-27] MEDS: FAMOTIDINE 20 MG (PEPCID) TABLET PO SCH (08:57)
[2019-04-27] MEDS: meTOprolol TARTRATE 50 MG (LOPRESSOR) TAB PO SCH ×2 (08:57→21:00)
[2019-04-27] MEDS: SERTRALINE 50 MG (ZOLOFT) TABLET PO SCH (08:57)
[2019-04-27] MEDS: FLUTICASONE NASAL SPRAY (FLONASE) 16 GM BTL NS SCH (08:57)
[2019-04-27] MEDS: OXYBUTYNIN (DITROPAN) 5 MG TAB PO SCH ×2 (08:57→21:00)
[2019-04-27] MEDS: ENALAPRIL 5 MG (VASOTEC) TAB PEG SCH (08:57)
--- NOTE | 2019-04-27 11:27 | Therapy Group Daily Note ---
Therapy Daily Group Note Patient Education Topic Exercises, Other List Below Exercises ROM, Stretching, Gross Motor, Fine Motor, UE Exercise Session Ratio (pt:therapist): 3:1 Goal of Session: UE/LE Strengthing Pt. participated in group treatment. Participated from reclining chair position. Completed bilateral UE/LE exercises in all planes to best of her ability to increase strength. Worked on socialization with gift exchange activity, [place] memories, and conversation. Pt. participated well and alert during session. Goal Met for this Session: Yes Pt Benefit of Group: Contributions to Others, Increased Functional Strength, Recognition of Peers, Socialization To increase strength and socialization. Start Time: 10:00 Stop Time: 11:15 Total Billed Treatment Time: 75 Total Billed Treatment 1, group HEMANT MERCEDES OT Apr 27, 2019 11:27
--- NOTE | 2019-04-27 12:33 | PM&R Progress Note ---
Subjective HPI/CC On Admission Date Seen by Provider: Apr 27, 2019 Time Seen by Provider: 12:00 Subjective/Events-last exam Spoke with Dr. Cohen again and he did talk to family about trying to eat more and wean TPN or needs to go to facility out of town who can manage TPN Doing bed exercises pretty well Picc line dysfunction resolved yesterday after cathflo Overall poor prognosis long-term. Wound vac managed by Sunny and Dr. Cohen. Pt needs residential Bed ridden state noted Pt overall has a very long recovery expected and prognosis is guarded at best. LFTs are elevated due to TPN cholestasis. Blood sugars reviewed Cognition is an issue Conferred with RN Check meds and labs Reviewed therapy notes Long recovery expected Review of Systems General: Fatigue Neurological: Confusion Objective Exam Vital Signs Vital Signs Date Time Temp Pulse Resp B/P (MAP) Pulse Ox O2 Delivery O2 Flow Rate FiO2 04/27/19 16:20 36.8 71 14 113/68 (83) 96 04/27/19 09:00 Nasal Cannula 2.00 Capillary Refill : General Appearance: No Apparent Distress, Chronically ill, Cachetic HEENT: PERRL/EOMI; No Pale Conjunctivae (L), No Pale Conjunctivae (R), No Scleral Icterus (L), No Scleral Icterus (R) Neck: Non Tender, Supple Respiratory: Chest Non Tender, Lungs Clear, Normal Breath Sounds, No Accessory Muscle Use, No Respiratory Distress Cardiovascular: Regular Rate, Rhythm, No Edema, No Murmur, Normal Peripheral Pulses, Systolic Murmur Gastrointestinal: Normal Bowel Sounds, No Organomegaly, No Pulsatile Mass, Non Tender, Soft Back: Normal Inspection, No CVA Tenderness, No Vertebral Tenderness Extremity: Normal Inspection, Non Tender, No Calf Tenderness, Pedal Edema (2+ edema on LLE, 1+ edema on RLE) Neurologic/Psychiatric: Alert, No Motor/Sensory Deficits, Normal Mood/Affect, study manager II-XII Norm as Tested Skin: Normal Color, Warm/Dry Lymphatic: No Adenopathy Results/Procedures Lab Laboratory Tests 04/27/19 06:10 Patient resulted labs reviewed. FIM Transfers Therapy Code Descriptions/Definitions Functional [place] Measure: 0=Not Assessed/NA 4=Minimal Assistance 1=Total Assistance 5=Supervision or Setup 2=Maximal Assistance 6=Modified [place] 3=Moderate Assistance 7=Complete IndependenceSCALE: Activities may be completed with or without assistive devices. 9-Vqhbdkunqj-ntcebol completes the activity by him/herself with no assistance from a helper. 5-Set-up or Clean-up Assistance-helper sets up or cleans up; patient completes activity. [place] assists only prior to or following the activity. 4-Supervision or Touching Assistance-helper provides verbal cues and/or touching/steadying and/or contact guard assistance as patient completes activity. Assistance may be provided throughout the activity or intermittently. 3-Partial/Moderate Assistance-helper does LESS THAN HALF the effort. [place] lifts, holds or supports trunk or limbs, but provides less than half the effort. 2-Substantial/Maximal Assistance-helper does MORE THAN HALF the effort. [place] lifts or holds trunk or limbs and provides more than half the effort. 2-Lanhhouhv-kvgylm does ALL the effort. Patient does none of the effort to complete the activity. Or, the assistance of 2 or more helpers is required for the patient to complete the activity. If activity was not attempted, code reason: 7-Patient Refused. 9-Not Applicable-not attempted and the patient did not perform the activity before the current illness, exacerbation or injury. 10-Not Attempted due to Environmental Limitations-(lack of equipment, weather restraints, etc.). 88-Not Attempted due to Medical Conditions or Safety Concerns. Roll Left to Right (QC): 3 Sit to Lying (QC): 2 Sit to Stand (QC): 1 Chair/Oop-gi-Anrpc Xfer(QC): 1 Car Transfer (QC): 88 Gait Training Does the Patient Walk?: No and Walking Goal NOT indicated Walk 10 feet (QC): 88 Walk 50 ft with 2 Turns(QC): 88 Walk 150 ft (QC): 88 Walking 10ft/uneven surface-QC: 88 Wheelchair Training Does the Pt Use a Wheelchair?: Yes Wheel 50 ft with 2 turns (QC): 88 Wheel 150 ft (QC): 88 Type of Wheelchair: Manual Stair Training 1 Step (curb) (QC): 88 4 Steps (QC): 88 12 Steps (QC): 88 Balance Picking up an Object (QC): 88 ADL-Treatment Eating (QC): 88 (Pt. receiving intravenous nutrition.) Oral Hygiene (QC): 4 (SBA. Pt. reports that her tongue feels "coated." OT handed her wet brush and pt. brushes it. 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 Diabetes mellitus Low albumin TPN required History of respiratory failure Elevated liver enzymes due to cholestasis from TPN Anemia receiving iron infusions Confusion with undercurrent of dementia Decubitus ulcers Tachycardia consulted now resolved Plan: Inpatient rehab protocol TPN wean Wound care for pressure ulcers Wound vac eval Air bed TPN wean Monitor labs Iron infusions Chey lift and bedridden state Appreciate Cardiology for tachycardia management Advance diet to wean TPN Dr Cohen to speak to family (1) Critical illness myopathy Status: Acute (2) Essential hypertension Status: Chronic (3) Abdominal pain (4) HLP (5) Headache Status: Acute (6) Perforated abdominal viscus Status: Acute (7) Postoperative abdominal pain Status: Acute (8) IDDM (insulin dependent diabetes mellitus) Status: Chronic YARON GALLAGHER DO Apr 27, 2019 12:33
--- NOTE | 2019-04-27 15:05 | Cardiology Progress Note ---
Cardiology SOAP Progress Note Subjective: No cardiac complaints. Objective: I&O/Vital Signs 04/27/19 04/27/19 04/27/19 06:06 09:00 09:00 Temp 37.5 Pulse 88 Resp 18 B/P (MAP) 162/70 (100) Pulse Ox 95 91 O2 Delivery Nasal Cannula Nasal Cannula Nasal Cannula O2 Flow Rate 1.00 1.50 2.00 04/27/19 00:00 Intake Total 0 ml Output Total 850 ml Balance -850 ml Weight (Pounds): 160 Weight (Ounces): 0.0 Weight (Calculated Kilograms): 72.508131 Constitutional: AAO x 3, well-developed, well-nourished Respiratory: chest expansion is symmetric, chest is bilaterally symmetric, other Cardiovascular: irregularly irregular, S1 and S2 Gastrointestional: other Extremities: no lower extremity edema bilateral Neurologic/Psychiatric: no motor/sensory deficits, alert, normal mood/affect, oriented x 3, grossly intact Skin: normal color Results/Procedures: Labs Laboratory Tests 04/26/19 18:02: Glucometer 104 04/27/19 00:06: Glucometer 192H 04/27/19 05:40: Glucometer 222H 04/27/19 06:10: Sodium Level 140, Potassium Level 4.1, Chloride Level 110H, Carbon Dioxide Level 19L, Anion Gap 11, Blood Urea Nitrogen 49H, Creatinine 0.68, Estimat Glomerular Filtration Rate > 60, BUN/Creatinine Ratio 72, Glucose Level 224H, Calcium Level 8.1L, Corrected Calcium 9.8, Phosphorus Level 3.9, Magnesium Level 1.8, Total Bilirubin 4.2H, Aspartate Amino Transf (AST/SGOT) 72H, Alanine Aminotransferase (ALT/SGPT) 67H, Alkaline Phosphatase 135, Total Protein 6.1L, Albumin 1.9L 04/27/19 11:35: Glucometer 144H A/P: Assessment/Dx: PAF CAD HTN HLP Plan: H/O multiple abdominal surgeries, had bowel resection and diverting ileostomy, last procedure was done on March 13, [address], followed by surgical services, recent transfer from [place] on 04-18-19 Paroxysmal atrial fibrillation, maintained on Lopressor, Eliquis. Continue to monitor. Labile hypertension, blood pressure well controlled at this time, continue to monitor. H/O acute renal insufficiency, continue to monitor renal function. Coronary artery disease - Most recent cardiac catheterization done April 2018 revealed mild ectasia in the proximal LAD with mild disease in the mid LAD, small vessel disease distally, mild ectasia in the proximal circumflex artery and 40-50 percent stenosis in the mid right coronary artery, nonobstructive disease History of colon cancer, history of colon resection and colostomy in the past, followed by Dr. Branham Hyperlipidemia- continue to monitor lipids as outpatient. Carotid artery stenosis, bilateral nonobstructive disease per carotid duplex done December 2018, continue to monitor. History of thyroid nodules noted on ultrasound, followed by Dr. Branham and Dr. Simmons Diabetes mellitus Family history of coronary artery disease. Obstructive sleep apnea, intolerance to CPAP History of appendectomy, kidney stones, hysterectomy. Breast biopsy. Anemia, continue to monitor, management per Dr Hand Thank you for your consultation. Please call me if you have any questions. Martha Spear MD, FACP, FACC, FSCAI, FHRS, CCDS Interventional Cardiology Cardiac Electrophysiology Vascular Medicine and Endovascular Interventions Gumaro SPEAR MD Apr 27, 2019 15:05
[2019-04-27 16:20] VITALS: BP 113/68
[2019-04-27] MEDS: POTASSIUM ACETATE IV SCH ×11 (16:54)
[2019-04-27] MEDS: [UNRECOGNIZED DRUG - OTHER] IV SCH ×11 (16:54)
[2019-04-27] MEDS: SODIUM ACETATE IV SCH ×11 (16:54)
[2019-04-27 20:56] VITALS: BP 135/65
[2019-04-28] MEDS: inSUlin ASPART (NovoLOG) 1 UNIT/0.01 ML (CHARGE PER UNIT) SC SCH ×4 (00:16→18:12)
[2019-04-28 05:34] VITALS: BP 157/70
[2019-04-28] MEDS: CATHETER FLUSH 10 ML SYR IV SCH ×3 (06:29→19:52)
[2019-04-28 07:07] LABS: BUN/CREATININE RATIO 77; CALCIUM 8.2 MG/DL (8.5-10.1); CARBON DIOXIDE 23 MMOL/L (21-32); CHLORIDE 111 MMOL/L (98-107); CREATININE SERUM 0.62 MG/DL (0.60-1.30); GFR ESTIMATED > 60; GLUCOSE 166 MG/DL (70-105); MAGNESIUM 1.8 MG/DL (1.6-2.4); PHOSPHORUS 3.5 MG/DL (2.3-4.7); SODIUM 142 MMOL/L (135-145)
[2019-04-28 08:45] VITALS: BP 168/68
[2019-04-28] MEDS: FAMOTIDINE 20 MG (PEPCID) TABLET PO SCH (08:46)
[2019-04-28] MEDS: APIXABAN 2.5 MG (ELIQUIS) TABLET PO SCH ×2 (08:46→20:43)
[2019-04-28] MEDS: SERTRALINE 50 MG (ZOLOFT) TABLET PO SCH (08:46)
[2019-04-28] MEDS: NYSTATIN ORAL SUSP 5 ML UDC PO SCH ×4 (08:46→20:43)
[2019-04-28] MEDS: OXYBUTYNIN (DITROPAN) 5 MG TAB PO SCH ×2 (08:46→20:43)
[2019-04-28] MEDS: ENALAPRIL 5 MG (VASOTEC) TAB PEG SCH (08:46)
[2019-04-28] MEDS: FLUTICASONE NASAL SPRAY (FLONASE) 16 GM BTL NS SCH (08:46)
[2019-04-28] MEDS: meTOprolol TARTRATE 50 MG (LOPRESSOR) TAB PO SCH ×2 (08:47→20:43)
[2019-04-28] MEDS: VISC LIDOCAINE/ANTACID/DIPHENHYDRAMINE 1:1:1 120 ML PO SCH ×12 (08:48→20:42)
--- NOTE | 2019-04-28 10:37 | Cardiology Progress Note ---
Cardiology SOAP Progress Note Subjective: not feeling well; however no cardiac complaints. Objective: I&O/Vital Signs 04/28/19 04/28/19 04/28/19 05:34 08:45 09:00 Temp 37.1 Pulse 84 89 Resp 18 B/P (MAP) 157/70 (99) 168/68 (101) Pulse Ox 95 O2 Delivery Nasal Cannula Nasal Cannula O2 Flow Rate 1.00 2.00 04/28/19 00:00 Intake Total 200 ml Output Total 750 ml Balance -550 ml Weight (Pounds): 160 Weight (Ounces): 0.0 Weight (Calculated Kilograms): 72.357275 Constitutional: AAO x 3, well-developed, well-nourished Respiratory: chest expansion is symmetric, chest is bilaterally symmetric, other Cardiovascular: irregularly irregular, S1 and S2 Gastrointestional: other Extremities: no lower extremity edema bilateral Neurologic/Psychiatric: no motor/sensory deficits, alert, normal mood/affect, oriented x 3, grossly intact Skin: normal color Results/Procedures: Labs Laboratory Tests 04/27/19 11:35: Glucometer 144H 04/27/19 18:10: Glucometer 121H 04/28/19 00:10: Glucometer 165H 04/28/19 05:10: Glucometer 175H 04/28/19 06:30: Sodium Level 142, Potassium Level 4.0, Chloride Level 111H, Carbon Dioxide Level 23, Anion Gap 8, Blood Urea Nitrogen 48H, Creatinine 0.62, Estimat Glomerular Filtration Rate > 60, BUN/Creatinine Ratio 77, Glucose Level 166H, Calcium Level 8.2L, Phosphorus Level 3.5, Magnesium Level 1.8 A/P: Assessment/Dx: PAF CAD HTN HLP Plan: H/O multiple abdominal surgeries, had bowel resection and diverting ileostomy, last procedure was done on March 13, [address], followed by surgical services, recent transfer from [place] on 04-18-19 Paroxysmal atrial fibrillation, maintained on Lopressor, Eliquis. Continue to monitor. Labile hypertension, blood pressure well controlled at this time, continue to monitor. H/O acute renal insufficiency, continue to monitor renal function. Coronary artery disease - Most recent cardiac catheterization done April 2018 revealed mild ectasia in the proximal LAD with mild disease in the mid LAD, small vessel disease distally, mild ectasia in the proximal circumflex artery and 40-50 percent stenosis in the mid right coronary artery, nonobstructive disease History of colon cancer, history of colon resection and colostomy in the past, followed by Dr. Branham Hyperlipidemia- continue to monitor lipids as outpatient. Carotid artery stenosis, bilateral nonobstructive disease per carotid duplex done December 2018, continue to monitor. History of thyroid nodules noted on ultrasound, followed by Dr. Branham and Dr. Simmons Diabetes mellitus Family history of coronary artery disease. Obstructive sleep apnea, intolerance to CPAP History of appendectomy, kidney stones, hysterectomy. Breast biopsy. Anemia, continue to monitor, management per Dr Hand Thank you for your consultation. Please call me if you have any questions. Martha Spear MD, FACP, FACC, FSCAI, FHRS, CCDS Interventional Cardiology Cardiac Electrophysiology Vascular Medicine and Endovascular Interventions Gumaro SPEAR MD Apr 28, 2019 10:37
--- NOTE | 2019-04-28 12:16 | PM&R Progress Note ---
Subjective HPI/CC On Admission Date Seen by Provider: Apr 28, 2019 Time Seen by Provider: 11:45 Subjective/Events-last exam Daughter at the bedside Doing bed exercises pretty well but very debilitated Picc line functioning well Overall poor prognosis long-term. Wound vac managed by Sunny and Dr. Cohen. Pt needs skilled nursing at [place] Bed ridden state noted Pt overall has a very long recovery expected and prognosis is guarded at best. LFTs are elevated due to TPN cholestasis.Checking am labs in morning Blood sugars reviewed Cognition is an issue Conferred with RN Check meds and labs Reviewed therapy notes Long recovery expected Review of Systems General: Fatigue Neurological: Confusion Objective Exam Vital Signs Vital Signs Date Time Temp Pulse Resp B/P (MAP) Pulse Ox O2 Delivery O2 Flow Rate FiO2 04/28/19 17:03 37.1 79 18 135/69 (91) 94 Nasal Cannula 2.00 Capillary Refill : General Appearance: No Apparent Distress, Chronically ill, Cachetic HEENT: PERRL/EOMI; No Pale Conjunctivae (L), No Pale Conjunctivae (R), No Scleral Icterus (L), No Scleral Icterus (R) Neck: Non Tender, Supple Respiratory: Chest Non Tender, Lungs Clear, Normal Breath Sounds, No Accessory Muscle Use, No Respiratory Distress Cardiovascular: Regular Rate, Rhythm, No Edema, No Murmur, Normal Peripheral Pulses, Systolic Murmur Gastrointestinal: Normal Bowel Sounds, No Organomegaly, No Pulsatile Mass, Non Tender, Soft Back: Normal Inspection, No CVA Tenderness, No Vertebral Tenderness Extremity: Normal Inspection, Non Tender, No Calf Tenderness, Pedal Edema (2+ edema on LLE, 1+ edema on RLE) Neurologic/Psychiatric: Alert, No Motor/Sensory Deficits, Normal Mood/Affect, embedded developer II-XII Norm as Tested Skin: Normal Color, Warm/Dry Lymphatic: No Adenopathy Results/Procedures Lab Laboratory Tests 04/28/19 06:30 Patient resulted labs reviewed. FIM Transfers Therapy Code Descriptions/Definitions Functional [place] Measure: 0=Not Assessed/NA 4=Minimal Assistance 1=Total Assistance 5=Supervision or Setup 2=Maximal Assistance 6=Modified [place] 3=Moderate Assistance 7=Complete IndependenceSCALE: Activities may be completed with or without assistive devices. 3-Ydjyiqikwd-opkivqm completes the activity by him/herself with no assistance from a helper. 5-Set-up or Clean-up Assistance-helper sets up or cleans up; patient completes activity. [place] assists only prior to or following the activity. 4-Supervision or Touching Assistance-helper provides verbal cues and/or touching/steadying and/or contact guard assistance as patient completes activity. Assistance may be provided throughout the activity or intermittently. 3-Partial/Moderate Assistance-helper does LESS THAN HALF the effort. [place] lifts, holds or supports trunk or limbs, but provides less than half the effort. 2-Substantial/Maximal Assistance-helper does MORE THAN HALF the effort. [place] lifts or holds trunk or limbs and provides more than half the effort. 9-Pvutschmu-rvxkdi does ALL the effort. Patient does none of the effort to complete the activity. Or, the assistance of 2 or more helpers is required for the patient to complete the activity. If activity was not attempted, code reason: 7-Patient Refused. 9-Not Applicable-not attempted and the patient did not perform the activity before the current illness, exacerbation or injury. 10-Not Attempted due to Environmental Limitations-(lack of equipment, weather restraints, etc.). 88-Not Attempted due to Medical Conditions or Safety Concerns. Roll Left to Right (QC): 3 Sit to Lying (QC): 2 Sit to Stand (QC): 1 Chair/Ldx-bk-Wevyb Xfer(QC): 1 Car Transfer (QC): 88 Gait Training Does the Patient Walk?: No and Walking Goal NOT indicated Walk 10 feet (QC): 88 Walk 50 ft with 2 Turns(QC): 88 Walk 150 ft (QC): 88 Walking 10ft/uneven surface-QC: 88 Wheelchair Training Does the Pt Use a Wheelchair?: Yes Wheel 50 ft with 2 turns (QC): 88 Wheel 150 ft (QC): 88 Type of Wheelchair: Manual Stair Training 1 Step (curb) (QC): 88 4 Steps (QC): 88 12 Steps (QC): 88 Balance Picking up an Object (QC): 88 ADL-Treatment Eating (QC): 88 (Pt. receiving intravenous nutrition.) Oral Hygiene (QC): 4 (SBA. Pt. reports that her tongue feels "coated." OT handed her wet brush and pt. brushes it. 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 Diabetes mellitus Low albumin TPN required History of respiratory failure Elevated liver enzymes due to cholestasis from TPN Anemia receiving iron infusions Confusion with undercurrent of dementia Decubitus ulcers Tachycardia consulted now resolved Plan: Inpatient rehab protocol TPN wean and increasing PO nutrition Wound care for pressure ulcers Wound vac managed by [facility] Air bed Monitor labs and checking in morning Iron infusions Chey lift and bedridden state Appreciate Cardiology for tachycardia management Iron infusions completing Dr Cohen to speak to family Monday (1) Critical illness myopathy Status: Acute (2) Essential hypertension Status: Chronic (3) Abdominal pain (4) HLP (5) Headache Status: Acute (6) Perforated abdominal viscus Status: Acute (7) Postoperative abdominal pain Status: Acute (8) IDDM (insulin dependent diabetes mellitus) Status: Chronic YARON GALLAGHER DO Apr 28, 2019 12:16
[2019-04-28 17:03] VITALS: BP 135/69
[2019-04-28] MEDS: POTASSIUM ACETATE IV SCH ×11 (17:08)
[2019-04-28] MEDS: SODIUM ACETATE IV SCH ×11 (17:08)
[2019-04-28] MEDS: [UNRECOGNIZED DRUG - OTHER] IV SCH ×11 (17:08)
[2019-04-28] MEDS: ONDANSETRON 4 MG/2 ML (SDV) Z0FRAN IV PRN (19:39)
[2019-04-28] MEDS: fentaNYL INJECTION 100 MCG/2 ML AMP IV PRN (19:51)
[2019-04-29] MEDS: inSUlin ASPART (NovoLOG) 1 UNIT/0.01 ML (CHARGE PER UNIT) SC SCH ×4 (00:18→18:29)
[2019-04-29 05:37] VITALS: BP 148/70
[2019-04-29 06:04] VITALS: BP 123/67
[2019-04-29] MEDS: CATHETER FLUSH 10 ML SYR IV SCH ×3 (06:49→21:17)
[2019-04-29 07:14] LABS: BASOPHILS % (AUTO) 0 % (0-10); EOSINOPHILS # (AUTO) 0.1 10^3/uL (0.0-0.3); EOSINOPHILS % (AUTO) 2 % (0-10); HEMATOCRIT 28 % (35-52); HEMOGLOBIN 8.3 G/DL (11.5-16.0); LYMPHOCYTES # (AUTO) 0.7 X 10^3 (1.0-4.0); LYMPHOCYTES % (AUTO) 7 % (12-44); MEAN CORPUSCULAR HEMOGLOBIN 31 PG (25-34); MEAN CORPUSCULAR HGB CONC 30 G/DL (32-36); MEAN CORPUSCULAR VOLUME 104 FL (80-99); MEAN PLATELET VOLUME 12.5 FL (7.4-10.4); MONOCYTES # (AUTO) 1.3 X 10^3 (0.0-1.0); MONOCYTES % (AUTO) 13 % (0-12); NEUTROPHILS # (AUTO) 7.5 X 10^3 (1.8-7.8); NEUTROPHILS % (AUTO) 78 % (42-75); PLATELET COUNT 168 10^3/uL (130-400); RED CELL DISTRIBUTION WIDTH 16.4 % (10.0-14.5); WHITE BLOOD COUNT 9.7 10^3/uL (4.3-11.0)
[2019-04-29 07:42] LABS: ALANINE AMINOTRANSFERASE 55 U/L (0-55); ALBUMIN 1.7 GM/DL (3.2-4.5); ALKALINE PHOSPHATASE 126 U/L (40-136); BILIRUBIN,TOTAL 3.7 MG/DL (0.1-1.0); BUN/CREATININE RATIO 77; CALCIUM 7.9 MG/DL (8.5-10.1); CARBON DIOXIDE 24 MMOL/L (21-32); CHLORIDE 109 MMOL/L (98-107); CREATININE SERUM 0.73 MG/DL (0.60-1.30); GFR ESTIMATED > 60; GLUCOSE 176 MG/DL (70-105); POTASSIUM 4.2 MMOL/L (3.6-5.0); SODIUM 140 MMOL/L (135-145); TOTAL PROTEIN 5.5 GM/DL (6.4-8.2)
[2019-04-29 07:45] LABS: BAND NEUTROPHILS 6 %; BASOPHILS % (MANUAL) 0 %; EOSINOPHILS % (MANUAL) 1 %; LYMPHOCYTES % (MANUAL) 3 %; METAMYELOCYTES % 1 %; MONOCYTES % (MANUAL) 12 %; MYELOCYTES % 1 %; NEUTROPHILS % (MANUAL) 76 %
[2019-04-29 07:46] LABS: ANISOCYTOSIS MODERATE; POLYCHROMASIA SLIGHT
--- NOTE | 2019-04-29 08:00 | NUR ---
Wound Vac Canister changed with 450cc dark, adi output. Vacuum seal remains intact. Pt rests while canister is changed.
[2019-04-29 08:05] LABS: MAGNESIUM 1.8 MG/DL (1.6-2.4); PHOSPHORUS 4.1 MG/DL (2.3-4.7)
[2019-04-29] MEDS: FENTANYL PATCH REMOVAL TP SCH (09:00)
--- NOTE | 2019-04-29 09:06 | PM&R Progress Note ---
Subjective HPI/CC On Admission Date Seen by Provider: Apr 29, 2019 Time Seen by Provider: 09:15 Subjective/Events-last exam Overall poor prognosis long-term. Wound vac managed by Sunny and Dr. Cohen and Dr Willett. Pt needs halfway at [place] Bed ridden state noted Pt overall has a very long recovery expected and prognosis is guarded at best. LFTs are elevated due to TPN cholestasis.Checked am labs this morning Blood sugars reviewed, more controlled Cognition is an issue Conferred with RN Check meds and labs Reviewed therapy notes Long recovery expected Review of Systems General: Fatigue Pulmonary: Dyspnea Neurological: Confusion Objective Exam Vital Signs Vital Signs Date Time Temp Pulse Resp B/P (MAP) Pulse Ox O2 Delivery O2 Flow Rate FiO2 04/29/19 17:29 36.2 76 16 122/68 (86) 95 Nasal Cannula 2.00 Capillary Refill : General Appearance: No Apparent Distress, Chronically ill, Cachetic HEENT: PERRL/EOMI; No Pale Conjunctivae (L), No Pale Conjunctivae (R), No Scleral Icterus (L), No Scleral Icterus (R) Neck: Non Tender, Supple Respiratory: Chest Non Tender, Lungs Clear, Normal Breath Sounds, No Accessory Muscle Use, No Respiratory Distress Cardiovascular: Regular Rate, Rhythm, No Edema, No Murmur, Normal Peripheral Pulses, Systolic Murmur Gastrointestinal: Normal Bowel Sounds, No Organomegaly, No Pulsatile Mass, Non Tender, Soft Back: Normal Inspection, No CVA Tenderness, No Vertebral Tenderness Extremity: Normal Inspection, Non Tender, No Calf Tenderness, Pedal Edema (2+ edema on LLE, 1+ edema on RLE) Neurologic/Psychiatric: Alert, No Motor/Sensory Deficits, Normal Mood/Affect, chain builder II-XII Norm as Tested Skin: Normal Color, Warm/Dry Lymphatic: No Adenopathy Results/Procedures Lab Laboratory Tests 04/29/19 06:55 Patient resulted labs reviewed. FIM Transfers Therapy Code Descriptions/Definitions Functional [place] Measure: 0=Not Assessed/NA 4=Minimal Assistance 1=Total Assistance 5=Supervision or Setup 2=Maximal Assistance 6=Modified [place] 3=Moderate Assistance 7=Complete IndependenceSCALE: Activities may be completed with or without assistive devices. 5-Biuoztvsrq-kbxkexq completes the activity by him/herself with no assistance from a helper. 5-Set-up or Clean-up Assistance-helper sets up or cleans up; patient completes activity. [place] assists only prior to or following the activity. 4-Supervision or Touching Assistance-helper provides verbal cues and/or touching/steadying and/or contact guard assistance as patient completes activity. Assistance may be provided throughout the activity or intermittently. 3-Partial/Moderate Assistance-helper does LESS THAN HALF the effort. [place] lifts, holds or supports trunk or limbs, but provides less than half the effort. 2-Substantial/Maximal Assistance-helper does MORE THAN HALF the effort. [place] lifts or holds trunk or limbs and provides more than half the effort. 9-Qyswmqowb-qibtng does ALL the effort. Patient does none of the effort to complete the activity. Or, the assistance of 2 or more helpers is required for the patient to complete the activity. If activity was not attempted, code reason: 7-Patient Refused. 9-Not Applicable-not attempted and the patient did not perform the activity before the current illness, exacerbation or injury. 10-Not Attempted due to Environmental Limitations-(lack of equipment, weather restraints, etc.). 88-Not Attempted due to Medical Conditions or Safety Concerns. Roll Left to Right (QC): 3 Sit to Lying (QC): 2 Sit to Stand (QC): 1 Chair/Wyi-et-Xpanl Xfer(QC): 1 Car Transfer (QC): 88 Gait Training Does the Patient Walk?: No and Walking Goal NOT indicated Walk 10 feet (QC): 88 Walk 50 ft with 2 Turns(QC): 88 Walk 150 ft (QC): 88 Walking 10ft/uneven surface-QC: 88 Wheelchair Training Does the Pt Use a Wheelchair?: Yes Wheel 50 ft with 2 turns (QC): 88 Wheel 150 ft (QC): 88 Type of Wheelchair: Manual Stair Training 1 Step (curb) (QC): 88 4 Steps (QC): 88 12 Steps (QC): 88 Balance Picking up an Object (QC): 88 ADL-Treatment Eating (QC): 88 (Pt. receiving intravenous nutrition.) Oral Hygiene (QC): 4 (SBA. Pt. reports that her tongue feels "coated." OT handed her wet brush and pt. brushes it. 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 Diabetes mellitus Low albumin TPN required but weaning while increasing PO intake History of respiratory failure Elevated liver enzymes due to cholestasis from TPN Anemia receiving iron infusions Confusion with undercurrent of dementia Decubitus ulcers Tachycardia consulted now resolved Plan: Inpatient rehab protocol TPN wean and increasing PO nutrition Wound care for pressure ulcers Wound vac managed by [facility] Air bed Monitor labs and checking in morning Iron infusions Chey lift and bedridden state Appreciate Cardiology for tachycardia management Iron infusions completing Dr Cohen to speak to family Monday and Dr Willett will reach out this week (1) Critical illness myopathy Status: Acute (2) Essential hypertension Status: Chronic (3) Abdominal pain (4) HLP (5) Headache Status: Acute (6) Perforated abdominal viscus Status: Acute (7) Postoperative abdominal pain Status: Acute (8) IDDM (insulin dependent diabetes mellitus) Status: Chronic YARON GALLAGHER DO Apr 29, 2019 09:06
[2019-04-29] MEDS: FAMOTIDINE 20 MG (PEPCID) TABLET PO SCH (09:49)
[2019-04-29] MEDS: FLUTICASONE NASAL SPRAY (FLONASE) 16 GM BTL NS SCH (09:49)
[2019-04-29] MEDS: APIXABAN 2.5 MG (ELIQUIS) TABLET PO SCH ×2 (09:49→21:15)
[2019-04-29] MEDS: SERTRALINE 50 MG (ZOLOFT) TABLET PO SCH (09:49)
[2019-04-29] MEDS: OXYBUTYNIN (DITROPAN) 5 MG TAB PO SCH ×2 (09:49→21:15)
[2019-04-29] MEDS: NYSTATIN ORAL SUSP 5 ML UDC PO SCH ×3 (09:49→21:12)
[2019-04-29] MEDS: VISC LIDOCAINE/ANTACID/DIPHENHYDRAMINE 1:1:1 120 ML PO SCH ×12 (09:50→21:14)
[2019-04-29] MEDS: ENALAPRIL 5 MG (VASOTEC) TAB PEG SCH (09:52)
[2019-04-29] MEDS: meTOprolol TARTRATE 50 MG (LOPRESSOR) TAB PO SCH ×2 (09:53→21:14)
[2019-04-29] MEDS: fentaNYL PATCH 25 MCG (DURAGESIC) TD SCH (10:00)
--- NOTE | 2019-04-29 11:26 | Physical Therapy Daily Note ---
PT Daily Note-Current Subjective Pt. and children present. Very supportive family. Pt. agrees to Rx but expresses fatigue in sitting EOB position. Pain Location: Medial Location Body Site: Abdomen Pain Description: Pressure Mental Status Patient Orientation: Normal For Age Attachments: Colostomy/Ileostomy, Oxygen, Wing Catheter, Other-See Comments (wound vacc) Transfers SCALE: Activities may be completed with or without assistive devices. 8-Omuzxfsheu-tiijogz completes the activity by him/herself with no assistance from a helper. 5-Set-up or Clean-up Assistance-helper sets up or cleans up; patient completes activity. [place] assists only prior to or following the activity. 4-Supervision or Touching Assistance-helper provides verbal cues and/or touching/steadying and/or contact guard assistance as patient completes activity. Assistance may be provided throughout the activity or intermittently. 3-Partial/Moderate Assistance-helper does LESS THAN HALF the effort. [place] lifts, holds or supports trunk or limbs, but provides less than half the effort. 2-Substantial/Maximal Assistance-helper does MORE THAN HALF the effort. [place] lifts or holds trunk or limbs and provides more than half the effort. 5-Iakeokptu-grudhk does ALL the effort. Patient does none of the effort to complete the activity. Or, the assistance of 2 or more helpers is required for the patient to complete the activity. If activity was not attempted, code reason: 7-Patient Refused. 9-Not Applicable-not attempted and the patient did not perform the activity before the current illness, exacerbation or injury. 10-Not Attempted due to Environmental Limitations-(lack of equipment, weather restraints, etc.). 88-Not Attempted due to Medical Conditions or Safety Concerns. Roll Left & Right (QC): 4 Sit to Lying (QC): 2 Lying to Sitting/Side of Bed(Q: 2 Chair/Fxm-la-Dsbwm Xfer(QC): 1 glenroy RF bed to recliner, mod to max assist 2 sup to sit and sit to sup, PT OT co Rx secondary to complexity of debility Exercises Supine Ex: Bridging, Ankle pumps (and HC stretches 4 x 20s), Quad Set, Rolling, Glut sets, Heel Slides (assisted), Short Arc Quads, Straight leg raise (assisted), Hip abd/add Supine Reps: 10 (x2) Seated Therapy Exercises: Ankle pumps, Long arc quads, Hip flexion, Hip abd/add Seated Reps: 12 (x2) seated in recliner, resisted biceps triceps curls x12 ea, shoulder flexion x12 Treatments seated EOB approx 8 min co Rx with OT for balance, wt shift, reaching and endurance, pt. c/o fatigue and asks to lay down, pt. c/o neck discomfort in sitting and massage was given by ETHOLOGIST while OT continued sitting balance and alignment work Assessment Current Status: Good Progress gains in strength and function noted, will consider TRF to w/c and possible stance in parallel bars next Rx. Pt. appeared anxious in sitting and fatigues quickly, educated and assured pt that sitting was profitable and would help protect her from pnuem and blood clots and skin break down PT Short Term Goals Short Term Goals Time Frame: Apr 25, 2019 Roll Left & Right: 3 (mod A) Sit to lyin (modA) Lying to sitting on side of be: 3 (modA) Sit to stand: 3 (modA) Chair/rzj-qa-fvcwj transfer: 3 (modA) PT Rail Switchman Goals Halfway Goals PT Rail Switchman Goals Time Frame: May 09, 2019 Roll Left & Right (QC): 3 (Chet) Sit to Lying (QC): 3 (Chet) Lying-Sitting on Side/Bed(QC): 3 (Chet) Sit to Stand (QC): 3 (Chet) Chair/Cgk-ai-Yxans Xfer(QC): 3 (Chet) Toilet Transfer (QC): 3 (Chet) Car Transfer (QC): 3 (Chet) Does the Patient Walk: No and Walking Goal NOT indicated Walk 10 feet (QC): 88 Walk 50ft with 2 Turns (QC): 88 Walk 150 ft (QC): 88 Walking 10ft on Uneven Surface: 88 1 Step (curb) (QC): 88 4 Steps (QC): 88 12 Steps (QC): 88 Picking up an Object (QC): 88 Does the Pt use WC or Scooter?: Yes Wheel 50 feet with 2 turns (QC: 4 (SBA) Type: Manual Wheel 150 feet: 4 (SBA) Type: Manual PT Plan Treatment/Plan Treatment Plan: Continue Plan of Care Treatment Plan: Bed Mobility, Concurrent Therapy, Education, Functional Activity José, Functional Strength, Group Therapy, Gait, Safety, Therapeutic Exercise, Transfers Treatment Duration: May 09, 2019 Frequency: At least 5 of 7 days/Wk (IRF) Estimated Hrs Per Day: 1.5 hours per day Patient and/or Family Agrees t: Yes Safety Risks/Education Patient Education: Transfer Techniques, Correct Positioning, Disease Process, Safety Issues Teaching Recipient: Patient Teaching Methods: Demonstration, Discussion Response to Teaching: Verbalize Understanding, Return Demonstration, Reinforcement Needed Time/GCodes Time In: 1015 Time Out: 1130 Total Billed Treatment Time: 75 Total Billed Treatment 1,FA45m,EX30m VIKTOR GARCIA ETHOLOGIST Apr 29, 2019 11:26
--- NOTE | 2019-04-29 12:00 | NUR ---
ileostomy leaking liquid BM down patients left side. previous, leaky bag removed, area cleansed, skin barrier spray applied to clean dry skin, ostomy adhesive applied to skin, new bag appliance applied. pt moved to bed and cleaned up with help. pt tolerates well.
--- NOTE | 2019-04-29 12:09 | Speech Therapy Daily Note ---
Speech Daily Progress Note Subjective Date Seen by Provider: Apr 29, 2019 Time Seen by Provider: 00:30 Patient was sitting up in her recliner visiting with her daughter. She states she is feeling a little better today and her throat isn't as sore. Objective Patient completed a series of questions related to her needs at 90% with minimal cuing. Assessment Assessment Current Status: Good Progress Treatment Plan Continue Plan of Care Speech Short Term Goals Short Term Goals Short Term Goals 1) Patient will complete memory tasks related to her daily needs at 90% or greater with minimal cues. 2) Patient will complete problem solving tasks related to her daily needs at 90% or greater with minimal cues. 3) Patient will complete safety awareness tasks related to her daily needs at 90% or greater with minimal cues. Speech Skilled Nursing Goals Skilled Nursing Goals Patient will improve cognitive-communication necessary for safety and daily living tasks with minimal assist. Speech-Plan Patient/Family Goals Patient/Family Goals: Patient plans on returning to her daughter's home upon discharge. Treatment Plan Speech Therapy Treatment Plan: Continue Plan of Care Patient has progressed to eating small amounts of soft foods. Treatment Duration: May 17, 2019 Frequency: 5 times per week Estimated Hrs Per Day: .5 hour per day Rehab Potential: Guarded Barriers to Learning: Patient has mild cognitive deficits, however these are improving Pt/Family Agrees to Plan: Yes Safety Risks/Education Teaching Recipient: Patient, Family Teaching Methods: Demonstration, Discussion Response to Teaching: Verbalize Understanding, Return Demonstration Education Topics Provided: Continued safety and communication of wants/needs Time Speech Therapy Time In: 11:30 Speech Therapy Time Out: 12:00 Total Billed Time: 30 Billed Treatment Time 1ALFIE [address] ST Apr 29, 2019 12:09
--- NOTE | 2019-04-29 14:05 | Occupational Ther Daily Note ---
OT Current Status-Daily Note Subjective Pt. reports pain in abdomen, but does not state pain level. States that she is very tired and requires constant encouragement. Appearance Pt. in bed. Alert. Mental Status/Objective Patient Orientation: Person Attachments: Colostomy/Ileostomy, Wing Catheter, Oxygen ADL-Treatment Therapy Code Descriptions/Definitions Functional Morris Measure: 0=Not Assessed/NA 4=Minimal Assistance 1=Total Assistance 5=Supervision or Setup 2=Maximal Assistance 6=Modified Morris 3=Moderate Assistance 7=Complete IndependenceSCALE: Activities may be completed with or without assistive devices. 8-Seagandogw-gbwoknv completes the activity by him/herself with no assistance from a helper. 5-Set-up or Clean-up Assistance-helper sets up or cleans up; patient completes activity. [place] assists only prior to or following the activity. 4-Supervision or Touching Assistance-helper provides verbal cues and/or touching/steadying and/or contact guard assistance as patient completes activity. Assistance may be provided throughout the activity or intermittently. 3-Partial/Moderate Assistance-helper does LESS THAN HALF the effort. [place] lifts, holds or supports trunk or limbs, but provides less than half the effort. 2-Substantial/Maximal Assistance-helper does MORE THAN HALF the effort. [place] lifts or holds trunk or limbs and provides more than half the effort. 4-Mypypgjts-iyjrls does ALL the effort. Patient does none of the effort to complete the activity. Or, the assistance of 2 or more helpers is required for the patient to complete the activity. If activity was not attempted, code reason: 7-Patient Refused. 9-Not Applicable-not attempted and the patient did not perform the activity before the current illness, exacerbation or injury. 10-Not Attempted due to Environmental Limitations-(lack of equipment, weather restraints, etc.). 88-Not Attempted due to Medical Conditions or Safety Concerns. Eating (QC): 4 (Pt. is able to eat soft foods now. Pt. given spoon with built up handle and small cup of ice cream. Pt. able to hold ice cream and dip spoon, bring to mouth. Pt. not very hungry, so did not eat much. OT brought in plate guard as well and educated daughter and pt. on use. Looking for available Devin cup for pt. for easier drinking access.) Oral Hygiene (QC): 4 (SBA for pt. to swab gums, and tongue. Pt. tends to "gag" self with swab and requires rest breaks and increased time to complete the task.) On/Off Footwear: 1 Toileting Hygiene (QC): 1 Other Treatment Pt. agreeable to treatment with OT. OT placed bed in chair position and pt. able to tolerate this well. Attempted to have pt. lean forward for trunk flexion but pt. will not do this. This is too difficult due to abdominal issues. OT placed bed flat and worked with pt. on rolling side to side. Pt's legs have to be put into position so that she can push to roll to opposite side. Max cues and encouragement/assist provided. Did this several times. HOB elevated again and pt. given brush to brush her hair. Pt. able to brush hair with min assist to brush thoroughly. Pt. also given warm washcloth and able to wash face. At this time, PT came into room for partial co-treatment, due to need of two skilled therapists. Transferred supine-sit with max cues and encouragement, and max x 2. OT sat in front of pt. and worked on hand placement, encouragement to keep eyes open, and weight shifts. PT stayed behind pt. to provide gentle massage to shoulders, as well as assist for balance and posture. Noted that pt. "pushing" toward right side. Max cues given to keep eyes open and continue sitting up on side of bed. Pt. wants to lay down but states that it is because she is tired and not because of pain. After approximately 10 minutes, pt. is laid down in bed and positioned again. Rested and then worked again on rolling side to side to place glenroy sling. PT took over session at this time. All needs met. Education OT Patient Education: Correct positioning, Instructions to caregiver, Modified ADL techniques, Progress toward Goal/Update tx plan, Purpose of tx/functional activities, Reviewed precautions, Rehab process, Transfer techniques Teaching Recipient: Patient, Family Teaching Methods: Demonstration, Discussion Response to Teaching: Verbalize Understanding, Reinforcement Needed OT Short Term Goals Short Term Goals Time Frame: May 02, 2019 Eatin Oral hygiene: 4 Toileting hygiene: 3 Shower/bathe self: 3 Upper body dressin Lower body dressin Putting on/taking off footwear: 3 OT Fdc Goals Fdc Goals Time Frame: May 16, 2019 Eating (QC): 6 Oral Hygiene (QC): 6 Toileting Hygiene (QC): 5 Shower/Bathe Self (QC): 4 Upper Body Dressing (QC): 5 Lower Body Dressing (QC): 5 On/Off Footwear (QC): 5 Additional Goals: 1-Demonstrate ADL Tasks, 2-Verbalize Understanding, 3- ImproveStrength/José 1=Demonstrate adherence to instructed precautions during ADL tasks. 2=Patient will verbalize/demonstrate understanding of assistive devices/mo difications for ADL. 3=Patient will improve strength/tolerance for activity to enable patient to perform ADL's. OT Education/Plan Problem List/Assessment Assessment: Decreased Activ Tolerance, Decreased UE Strength, Dependent Transfers, Impaired Bed Mobility, Impaired Cognition, Impaired Coordination, Impaired Funct Balance, Impaired I ADL's, Impaired Self-Care Skills, Restricted Funct UE ROM Discharge Recommendations Plan/Recommendations: Continue POC Therapy Discharge Recommendati: 24 Hour Supervision, Post Acute OT Treatment Plan/Plan of Care Treatment,Training & Education: Yes Patient would benefit from OT for education, treatment and training to promote independence in ADL's, mobility, safety and/or upper extremity function for ADL's. Plan of Care: ADL Retraining, Caregiver Training, Functional Mobility, Group Exercise/Act as Ind, UE Funct Exercise/Act Treatment Duration: May 16, 2019 Frequency: At least 5 of 7 days/Wk (IRF) Estimated Hrs Per Day: 1.5 hours per day Agreement: Yes Rehab Potential: Guarded Time/GCodes Start Time: 09:45 Stop Time: 11:00 Total Time Billed (hr/min): 75 Billed Treatment Time 5921-5621 1, FA x 30minutes 1015-100 FA x 45minutes co-treatment with PT. Please see above note for designated roles. HEMANT MERCEDES OT Apr 29, 2019 14:05
[2019-04-29 15:50] VITALS: BP 94/56
[2019-04-29 16:37] VITALS: BP 117/63
[2019-04-29] MEDS: POTASSIUM ACETATE IV SCH ×11 (16:58)
[2019-04-29] MEDS: SODIUM ACETATE IV SCH ×11 (16:58)
[2019-04-29] MEDS: [UNRECOGNIZED DRUG - OTHER] IV SCH ×11 (16:58)
[2019-04-29 17:29] VITALS: BP 122/68
--- NOTE | 2019-04-29 19:56 | Cardiology Progress Note ---
Cardiology SOAP Progress Note Subjective: No cardiac complaints. Objective: I&O/Vital Signs 04/29/19 04/29/19 04/29/19 04/29/19 09:00 15:50 16:37 17:29 Temp 36.8 36.2 Pulse 70 76 76 Resp 14 16 B/P (MAP) 94/56 (69) 117/63 (81) 122/68 (86) Pulse Ox 95 95 O2 Delivery Nasal Cannula Nasal Cannula Nasal Cannula O2 Flow Rate 2.00 1.50 2.00 04/29/19 00:00 Intake Total 1900 ml Output Total 925 ml Balance 975 ml Weight (Pounds): 160 Weight (Ounces): 0.0 Weight (Calculated Kilograms): [id number] Constitutional: AAO x 3, well-developed, well-nourished Respiratory: chest expansion is symmetric, chest is bilaterally symmetric, other Cardiovascular: irregularly irregular, S1 and S2 Gastrointestional: other Extremities: no lower extremity edema bilateral Neurologic/Psychiatric: no motor/sensory deficits, alert, normal mood/affect, oriented x 3, grossly intact Skin: normal color Results/Procedures: Labs Laboratory Tests 04/29/19 00:04: Glucometer 219H 04/29/19 05:29: Glucometer 178H 04/29/19 06:55: White Blood Count 9.7, Red Blood Count 2.67L, Hemoglobin 8.3L, Hematocrit 28L, Mean Corpuscular Volume 104H, Mean Corpuscular Hemoglobin 31, Mean Corpuscular Hemoglobin Concent 30L, Red Cell Distribution Width 16.4H, Platelet Count 168, Mean Platelet Volume 12.5H, Neutrophils (%) (Auto) 78H, Lymphocytes (%) (Auto) 7L, Monocytes (%) (Auto) 13H, Eosinophils (%) (Auto) 2, Basophils (%) (Auto) 0, Neutrophils # (Auto) 7.5, Lymphocytes # (Auto) 0.7L, Monocytes # (Auto) 1.3H, Eosinophils # (Auto) 0.1, Basophils # (Auto) 0.0, Neutrophils % (Manual) 76, Lymphocytes % (Manual) 3, Monocytes % (Manual) 12, Eosinophils % (Manual) 1, Basophils % (Manual) 0, Metamyelocytes % 1, Myelocytes % 1, Band Neutrophils 6, Polychromasia SLIGHT, Anisocytosis MODERATE, Sodium Level 140, Potassium Level 4.2, Chloride Level 109H, Carbon Dioxide Level 24, Anion Gap 7, Blood Urea Nitrogen 56H, Creatinine 0.73, Estimat Glomerular Filtration Rate > 60, BUN/Creatinine Ratio 77, Glucose Level 176H, Calcium Level 7.9L, Corrected Calcium 9.7, Phosphorus Level 4.1, Magnesium Level 1.8, Total Bilirubin 3.7H, Aspartate Amino Transf (AST/SGOT) 67H, Alanine Aminotransferase (ALT/SGPT) 55, Alkaline Phosphatase 126, Total Protein 5.5L, Albumin 1.7L 04/29/19 12:43: Glucometer 141H 04/29/19 18:18: Glucometer 130H A/P: Assessment/Dx: PAF CAD HTN HLP Plan: H/O multiple abdominal surgeries, had bowel resection and diverting ileostomy, last procedure was done on March 13, [address], followed by surgical services, recent transfer from [place] on 04-18-19 Paroxysmal atrial fibrillation, maintained on Lopressor, Eliquis. Continue to monitor. Labile hypertension, blood pressure well controlled at this time, continue to monitor. H/O acute renal insufficiency, continue to monitor renal function. Coronary artery disease - Most recent cardiac catheterization done April 2018 revealed mild ectasia in the proximal LAD with mild disease in the mid LAD, small vessel disease distally, mild ectasia in the proximal circumflex artery and 40-50 percent stenosis in the mid right coronary artery, nonobstructive disease History of colon cancer, history of colon resection and colostomy in the past, followed by Dr. Branham Hyperlipidemia- continue to monitor lipids as outpatient. Carotid artery stenosis, bilateral nonobstructive disease per carotid duplex don e December 2018, continue to monitor. History of thyroid nodules noted on ultrasound, followed by Dr. Branham and Dr. Simmons Diabetes mellitus Family history of coronary artery disease. Obstructive sleep apnea, intolerance to CPAP History of appendectomy, kidney stones, hysterectomy. Breast biopsy. Anemia, continue to monitor, management per Dr Hand Thank you for your consultation. Please call me if you have any questions. Martha Spear MD, FACP, FACC, FSCAI, FHRS, CCDS Interventional Cardiology Cardiac Electrophysiology Vascular Medicine and Endovascular Interventions Gumaro SPEAR MD Apr 29, 2019 19:56
[2019-04-29] MEDS: WATER (STERILE) FOR INJECTION 10 ML ONE (22:05)
[2019-04-30] MEDS: inSUlin ASPART (NovoLOG) 1 UNIT/0.01 ML (CHARGE PER UNIT) SC SCH ×4 (00:47→18:35)
[2019-04-30 05:04] VITALS: BP 125/65
[2019-04-30] MEDS: CATHETER FLUSH 10 ML SYR IV SCH ×3 (05:07→20:41)
--- NOTE | 2019-04-30 08:49 | Speech Therapy Daily Note ---
Speech Daily Progress Note Subjective Date Seen by Provider: Apr 30, 2019 Time Seen by Provider: 00:30 Patient sitting up in her bed while finishing up her breakfast. She is only consuming a few bites at this time. Objective Patient demo safety awareness with tasks she could complete with 90% given minimal cues. Assessment Assessment Current Status: Good Progress Treatment Plan Continue Plan of Care Speech Short Term Goals Short Term Goals Short Term Goals 1) Patient will complete memory tasks related to her daily needs at 90% or greater with minimal cues. 2) Patient will complete problem solving tasks related to her daily needs at 90% or greater with minimal cues. 3) Patient will complete safety awareness tasks related to her daily needs at 90% or greater with minimal cues. Speech [facility] Goals Business Excellence Manager Goals Patient will improve cognitive-communication necessary for safety and daily living tasks with minimal assist. Speech-Plan Patient/Family Goals Patient/Family Goals: Patient plans on returning to her daughter's home post rehab. Treatment Plan Speech Therapy Treatment Plan: Continue Plan of Care Patient is progressing well. Treatment Duration: May 17, 2019 Frequency: 5 times per week Estimated Hrs Per Day: .5 hour per day Rehab Potential: Guarded Barriers to Learning: Patient has mild cognitive deficits due to medical status. Pt/Family Agrees to Plan: Yes Safety Risks/Education Teaching Recipient: Patient Teaching Methods: Demonstration, Discussion Response to Teaching: Verbalize Understanding, Return Demonstration Education Topics Provided: Continued safety within her room anc communication of wants/needs. Time Speech Therapy Time In: 08:15 Speech Therapy Time Out: 08:45 Total Billed Time: 30 Billed Treatment Time 1[address]FIE [address] Apr 30, 2019 08:48
[2019-04-30] MEDS: fentaNYL INJECTION 100 MCG/2 ML AMP IV PRN (09:23)
[2019-04-30] MEDS: FLUTICASONE NASAL SPRAY (FLONASE) 16 GM BTL NS SCH (09:31)
[2019-04-30] MEDS: CLONIDINE PATCH REMOVAL TP SCH (09:31)
[2019-04-30] MEDS: FAMOTIDINE 20 MG (PEPCID) TABLET PO SCH (09:32)
[2019-04-30] MEDS: APIXABAN 5 MG (ELIQUIS) TABLET PO SCH ×2 (09:32→20:41)
[2019-04-30] MEDS: OXYBUTYNIN (DITROPAN) 5 MG TAB PO SCH ×2 (09:32→20:41)
[2019-04-30] MEDS: ENALAPRIL 5 MG (VASOTEC) TAB PEG SCH (09:32)
[2019-04-30] MEDS: cloNIDine 0.1 MG PATCH (CATAPRES TTS) TDSY TOP SCH (09:32)
[2019-04-30] MEDS: meTOprolol TARTRATE 50 MG (LOPRESSOR) TAB PO SCH ×2 (09:32→20:42)
[2019-04-30] MEDS: NYSTATIN ORAL SUSP 5 ML UDC PO SCH ×4 (09:32→20:42)
[2019-04-30] MEDS: SERTRALINE 50 MG (ZOLOFT) TABLET PO SCH (09:32)
[2019-04-30] MEDS: VISC LIDOCAINE/ANTACID/DIPHENHYDRAMINE 1:1:1 120 ML PO SCH ×12 (09:33→20:41)
--- NOTE | 2019-04-30 10:00 | Physical Therapy Daily Note ---
PT Daily Note-Current Subjective Pt R sidelying with pillow positioned under pt upon arrival. Pt agrees to PT. Pain Numeric Pain Scale: 7 Location Body Site: Sacrum Pain Description: Ache Comment: Sacrum is checked during Rx and no redness is observed at this time. Mental Status Patient Orientation: Person, Confused, Place Attachments: Oxygen, PEG Tube, IV Transfers SCALE: Activities may be completed with or without assistive devices. 9-Xwvoovdjyf-qbvpedb completes the activity by him/herself with no assistance from a helper. 5-Set-up or Clean-up Assistance-helper sets up or cleans up; patient completes activity. [place] assists only prior to or following the activity. 4-Supervision or Touching Assistance-helper provides verbal cues and/or touching/steadying and/or contact guard assistance as patient completes activity. Assistance may be provided throughout the activity or intermittently. 3-Partial/Moderate Assistance-helper does LESS THAN HALF the effort. [place] lifts, holds or supports trunk or limbs, but provides less than half the effort. 2-Substantial/Maximal Assistance-helper does MORE THAN HALF the effort. [place] lifts or holds trunk or limbs and provides more than half the effort. 2-Tzpbmwirt-fcsdnu does ALL the effort. Patient does none of the effort to complete the activity. Or, the assistance of 2 or more helpers is required for the patient to complete the activity. If activity was not attempted, code reason: 7-Patient Refused. 9-Not Applicable-not attempted and the patient did not perform the activity before the current illness, exacerbation or injury. 10-Not Attempted due to Environmental Limitations-(lack of equipment, weather restraints, etc.). 88-Not Attempted due to Medical Conditions or Safety Concerns. Roll Left & Right (QC): 1 Sit to Lying (QC): 1 Lying to Sitting/Side of Bed(Q: 1 Gait Training Does the Patient Walk?: No and Walking Goal NOT indicated Exercises Supine Ex: Ankle pumps, Quad Set, Heel Slides, Hip abd/add Supine Reps: 20 Treatments PT/OT completed co-treatment due to pt's fatigue and pain level. Pt. requires constant encouragement to participate. OT facilitated ADL skills while PT facilitated mobility and transfers. Pt. transferred supine-sit with max x 2. Sat on side of bed supported with cues to keep eyes open, and to lean forward, as pt. pushing back at times. Sat approximately 15 minutes. PT sat behind pt. and completed gentle shoulder massage and posture cues while OT sat in front and engaged pt. in putting hands on bed for stability. Pt. required constant cues to participate, and education on why sitting up is important. Pt. transferred back sit-supine with max x 2. Alternated UE/LE exercises at bed level. Max encouragement provided. Pt. able to complete 4 UE and 4 LE exercises, with cues to continue each exercise. Encouraged pt. to sit back on side of bed but she adamantly declines. Practiced rolling side to side with max x 2. Pt. positioned on side. All needs met. Assessment Current Status: Good Progress Pt fatigues easily and needs encouragement to continue to participate with Therapy. PT Short Term Goals Short Term Goals Time Frame: Apr 25, 2019 Roll Left & Right: 3 (mod A) Sit to lyin (modA) Lying to sitting on side of be: 3 (modA) Sit to stand: 3 (modA) Chair/zyb-xi-toaxo transfer: 3 (modA) PT Hvac Lead Goals Halfway Goals PT Halfway Goals Time Frame: May 09, 2019 Roll Left & Right (QC): 3 (Chet) Sit to Lying (QC): 3 (Chet) Lying-Sitting on Side/Bed(QC): 3 (Chet) Sit to Stand (QC): 3 (Chet) Chair/Bap-la-Hqjcq Xfer(QC): 3 (Chet) Toilet Transfer (QC): 3 (Chet) Car Transfer (QC): 3 (Chet) Does the Patient Walk: No and Walking Goal NOT indicated Walk 10 feet (QC): 88 Walk 50ft with 2 Turns (QC): 88 Walk 150 ft (QC): 88 Walking 10ft on Uneven Surface: 88 1 Step (curb) (QC): 88 4 Steps (QC): 88 12 Steps (QC): 88 Picking up an Object (QC): 88 Does the Pt use WC or Scooter?: Yes Wheel 50 feet with 2 turns (QC: 4 (SBA) Type: Manual Wheel 150 feet: 4 (SBA) Type: Manual PT Plan Problem List Problem List: Activity Tolerance, Functional Strength, Safety, Balance, Transfer, Bed Mobility, ROM Treatment/Plan Treatment Plan: Continue Plan of Care Treatment Plan: Bed Mobility, Concurrent Therapy, Education, Functional Activity José, Functional Strength, Group Therapy, Gait, Safety, Therapeutic Exercise, Transfers Treatment Duration: May 09, 2019 Frequency: At least 5 of 7 days/Wk (IRF) Estimated Hrs Per Day: 1.5 hours per day Patient and/or Family Agrees t: Yes Safety Risks/Education Patient Education: Transfer Techniques, Correct Positioning, Safety Issues Teaching Recipient: Patient Teaching Methods: Discussion Response to Teaching: Reinforcement Needed Time/GCodes Time In: 845 Time Out: 1000 Total Billed Treatment Time: 75 Total Billed Treatment 1, EX x2 (25m) & FA x3 (50m) Co-treat w/OT for 75m KISHORECHET HARRISAH NYLON MENDER Apr 30, 2019 10:00
--- NOTE | 2019-04-30 10:11 | NUR ---
CONCURRENT NOTE Continued intermittent review of patient progress physically and functionally. Post hospital care plan remains tentative until surgeon provides assessment and update regarding all things relative to TPN and any proposed surgical interventions. If patient requires TPN, the focus of next step placement will be out of this immediate area, likely [place] or [place] or beyond. If TPN has a window for weaning, there may be a slim chance that [facility] would consider placement since family had planned for her to go there eventually. Her required level of hands-on care is high overall and this will limit options for next care environment. Addendum: 04/30/19 at 1230 by BROOKLYNN PROCTOR Discharge planning communication should be with daughter Jeni as CHICA so that more definitive information can be shared with patient once it is known and in partnership with daughter, son, family.
--- NOTE | 2019-04-30 11:01 | Occupational Ther Daily Note ---
OT Current Status-Daily Note Subjective Pt. reports pain in abdomen, but does not give a pain level. Nursing gives pain medication. Appearance Pt. in bed. Agrees to treatment. Mental Status/Objective Patient Orientation: Person ADL-Treatment Therapy Code Descriptions/Definitions Functional [place] Measure: 0=Not Assessed/NA 4=Minimal Assistance 1=Total Assistance 5=Supervision or Setup 2=Maximal Assistance 6=Modified [place] 3=Moderate Assistance 7=Complete IndependenceSCALE: Activities may be completed with or without assistive devices. 8-Bqblqjjuqy-lquizjn completes the activity by him/herself with no assistance from a helper. 5-Set-up or Clean-up Assistance-helper sets up or cleans up; patient completes activity. [place] assists only prior to or following the activity. 4-Supervision or Touching Assistance-helper provides verbal cues and/or touching/steadying and/or contact guard assistance as patient completes activit y. Assistance may be provided throughout the activity or intermittently. 3-Partial/Moderate Assistance-helper does LESS THAN HALF the effort. [place] lifts, holds or supports trunk or limbs, but provides less than half the effort. 2-Substantial/Maximal Assistance-helper does MORE THAN HALF the effort. [place] lifts or holds trunk or limbs and provides more than half the effort. 0-Aqnzpvrxc-ihksmb does ALL the effort. Patient does none of the effort to complete the activity. Or, the assistance of 2 or more helpers is required for the patient to complete the activity. If activity was not attempted, code reason: 7-Patient Refused. 9-Not Applicable-not attempted and the patient did not perform the activity before the current illness, exacerbation or injury. 10-Not Attempted due to Environmental Limitations-(lack of equipment, weather restraints, etc.). 88-Not Attempted due to Medical Conditions or Safety Concerns. On/Off Footwear: 1 Toileting Hygiene (QC): 1 PT/OT completed co-treatment due to pt's fatigue and pain level. Pt. requires constant encouragement to participate. OT facilitated ADL skills while PT facilitated mobility and transfers. Pt. transferred supine-sit with max x 2. Sat on side of bed supported with cues to keep eyes open, and to lean forward, as pt. pushing back at times. Sat approximately 15 minutes. PT sat behind pt. and completed gentle shoulder massage and posture cues while OT sat in front and engaged pt. in putting hands on bed for stability. Pt. required constant cues to participate, and education on why sitting up is important. Pt. transferred back sit-supine with max x 2. Alternated UE/LE exercises at bed level. Max encouragement provided. Pt. able to complete 4 UE and 4 LE exercises x 10 reps each, with cues to continue each exercise. Encouraged pt. to sit back on side of bed but she adamantly declines. Practiced rolling side to side with max x 2. Pt. positioned on side. All needs met. Education OT Patient Education: Correct positioning, Modified ADL techniques, Progress toward Goal/Update tx plan, Purpose of tx/functional activities, Reviewed precautions, Rehab process, Transfer techniques Teaching Recipient: Patient Teaching Methods: Demonstration, Discussion Response to Teaching: Verbalize Understanding, Return Demonstration OT Short Term Goals Short Term Goals Time Frame: May 02, 2019 Eatin Oral hygiene: 4 Toileting hygiene: 3 Shower/bathe self: 3 Upper body dressin Lower body dressin Putting on/taking off footwear: 3 OT Tung[employer] Goals [facility] Goals Time Frame: May 16, 2019 Eating (QC): 6 Oral Hygiene (QC): 6 Toileting Hygiene (QC): 5 Shower/Bathe Self (QC): 4 Upper Body Dressing (QC): 5 Lower Body Dressing (QC): 5 On/Off Footwear (QC): 5 Additional Goals: 1-Demonstrate ADL Tasks, 2-Verbalize Understanding, 3- ImproveStrength/José 1=Demonstrate adherence to instructed precautions during ADL tasks. 2=Patient will verbalize/demonstrate understanding of assistive devices/modifications for ADL. 3=Patient will improve strength/tolerance for activity to enable patient to perform ADL's. OT Education/Plan Problem List/Assessment Assessment: Decreased Activ Tolerance, Decreased UE Strength, Dependent Transfers, Impaired Bed Mobility, Impaired Cognition, Impaired Coordination, Impaired Funct Balance, Impaired I ADL's, Impaired Self-Care Skills, Restricted Funct UE ROM Discharge Recommendations Plan/Recommendations: Continue POC Therapy Discharge Recommendati: 24 Hour Supervision, Post Acute OT Treatment Plan/Plan of Care Treatment,Training & Education: Yes Patient would benefit from OT for education, treatment and training to promote independence in ADL's, mobility, safety and/or upper extremity function for ADL's. Plan of Care: ADL Retraining, Caregiver Training, Functional Mobility, Group Exercise/Act as Ind, UE Funct Exercise/Act Treatment Duration: May 16, 2019 Frequency: At least 5 of 7 days/Wk (IRF) Estimated Hrs Per Day: 1.5 hours per day Agreement: Yes Rehab Potential: Guarded Time/GCodes Start Time: 08:45 Stop Time: 10:00 Total Time Billed (hr/min): 75 Billed Treatment Time 1, FA x 5 HEMANT MERCEDES OT Apr 30, 2019 11:00
--- NOTE | 2019-04-30 11:19 | PM&R Progress Note ---
Subjective HPI/CC On Admission Date Seen by Provider: Apr 30, 2019 Time Seen by Provider: 10:30 Subjective/Events-last exam Overall poor prognosis long-term. Eating a little more each day and I did speak to Dr Willett and he spoke to family and they don't want to go to out of town facility but she is not participating in therapy in order to remain in IRF so will advance diet and initiate calorie count and fluid intake to see if we can wean TPM in order to DC it and DC to local [place] Wound vac managed by Sunny and Dr. Cohen and Dr Willett. Pt needs halfway at DC but TPN limiting options locally Bed ridden state noted Pt overall has a very long recovery expected and prognosis is guarded at best. LFTs are elevated due to TPN cholestasis will monitor closely Blood sugars reviewed, more controlled Cognition is an issue Conferred with RN Check meds and labs Reviewed therapy notes Long recovery expected Review of Systems General: Fatigue Neurological: Confusion Objective Exam Vital Signs Vital Signs Date Time Temp Pulse Resp B/P (MAP) Pulse Ox O2 Delivery O2 Flow Rate FiO2 04/30/19 09:47 Nasal Cannula 2.00 04/30/19 05:04 37.0 68 18 125/65 (85) 95 Capillary Refill : Less Than 3 Seconds General Appearance: No Apparent Distress, Chronically ill, Cachetic HEENT: PERRL/EOMI; No Pale Conjunctivae (L), No Pale Conjunctivae (R), No Scleral Icterus (L), No Scleral Icterus (R) Neck: Non Tender, Supple Respiratory: Chest Non Tender, Lungs Clear, Normal Breath Sounds, No Accessory Muscle Use, No Respiratory Distress Cardiovascular: Regular Rate, Rhythm, No Edema, No Murmur, Normal Peripheral Pulses, Systolic Murmur Gastrointestinal: Normal Bowel Sounds, No Organomegaly, No Pulsatile Mass, Non Tender, Soft Back: Normal Inspection, No CVA Tenderness, No Vertebral Tenderness Extremity: Normal Inspection, Non Tender, No Calf Tenderness, Pedal Edema (2+ edema on LLE, 1+ edema on RLE) Neurologic/Psychiatric: Alert, No Motor/Sensory Deficits, Normal Mood/Affect, pusher runner II-XII Norm as Tested Skin: Normal Color, Warm/Dry Lymphatic: No Adenopathy Results/Procedures Lab Patient resulted labs reviewed. FIM Transfers Therapy Code Descriptions/Definitions Functional [place] Measure: 0=Not Assessed/NA 4=Minimal Assistance 1=Total Assistance 5=Supervision or Setup 2=Maximal Assistance 6=Modified [place] 3=Moderate Assistance 7=Complete IndependenceSCALE: Activities may be completed with or without assistive devices. 8-Meyfmrdcnx-xamyrmg completes the activity by him/herself with no assistance from a helper. 5-Set-up or Clean-up Assistance-helper sets up or cleans up; patient completes activity. [place] assists only prior to or following the activity. 4-Supervision or Touching Assistance-helper provides verbal cues and/or touching/steadying and/or contact guard assistance as patient completes activity. Assistance may be provided throughout the activity or intermittently. 3-Partial/Moderate Assistance-helper does LESS THAN HALF the effort. [place] lifts, holds or supports trunk or limbs, but provides less than half the effort. 2-Substantial/Maximal Assistance-helper does MORE THAN HALF the effort. [place] lifts or holds trunk or limbs and provides more than half the effort. 9-Llaaamxgw-rwwbft does ALL the effort. Patient does none of the effort to complete the activity. Or, the assistance of 2 or more helpers is required for the patient to complete the activity. If activity was not attempted, code reason: 7-Patient Refused. 9-Not Applicable-not attempted and the patient did not perform the activity before the current illness, exacerbation or injury. 10-Not Attempted due to Environmental Limitations-(lack of equipment, weather restraints, etc.). 88-Not Attempted due to Medical Conditions or Safety Concerns. Roll Left to Right (QC): 1 Sit to Lying (QC): 1 Sit to Stand (QC): 1 Chair/Efy-ia-Ylfbn Xfer(QC): 1 Car Transfer (QC): 88 Gait Training Does the Patient Walk?: No and Walking Goal NOT indicated Walk 10 feet (QC): 88 Walk 50 ft with 2 Turns(QC): 88 Walk 150 ft (QC): 88 Walking 10ft/uneven surface-QC: 88 Wheelchair Training Does the Pt Use a Wheelchair?: Yes Wheel 50 ft with 2 turns (QC): 88 Wheel 150 ft (QC): 88 Type of Wheelchair: Manual Stair Training 1 Step (curb) (QC): 88 4 Steps (QC): 88 12 Steps (QC): 88 Balance Picking up an Object (QC): 88 ADL-Treatment Eating (QC): 4 (Pt. is able to eat soft foods now. Pt. given spoon with built up handle and small cup of ice cream. Pt. able to hold ice cream and dip spoon, bring to mouth. Pt. not very hungry, so did not eat much. OT brought in plate guard as well and educated daughter and pt. on use. Looking for available Devin cup for pt. for easier drinking access.) Oral Hygiene (QC): 4 (SBA for pt. to swab gums, and tongue. Pt. 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 Diabetes mellitus Low albumin TPN required but weaning while increasing PO intake History of respiratory failure Elevated liver enzymes due to cholestasis from TPN Anemia receiving iron infusions Confusion with undercurrent of dementia Decubitus ulcers Tachycardia consulted now resolved Plan: Inpatient rehab protocol TPN wean and increasing PO nutrition will start calorie count and fluid intake PO Wound care for pressure ulcers Wound vac managed by [facility] Air bed Monitor labs and checking in morning Iron infusions Chey lift and bedridden state Appreciate Cardiology for tachycardia management Iron infusions completing Dr Willett spoke to family today (1) Critical illness myopathy Status: Acute (2) Essential hypertension Status: Chronic (3) Abdominal pain (4) HLP (5) Headache Status: Acute (6) Perforated abdominal viscus Status: Acute (7) Postoperative abdominal pain Status: Acute (8) IDDM (insulin dependent diabetes mellitus) Status: Chronic YARON GALLAGHER DO Apr 30, 2019 11:19
--- NOTE | 2019-04-30 15:26 | Progress Note - Surgery ---
Subjective Time Seen by a Provider: 12:11 Subjective/Events-last exam Pt seen and examined with family in the room; currently getting wound VAC changed. Family is concerned about TPN; no penitentiary within 150 miles can do TPN. Review of Systems General: No Chills, No Night Sweats Cardiovascular: No: Chest Pain Gastrointestinal: Other (decreased appetite); No: Nausea, Vomiting, Abdominal Pain Objective Exam Vital Signs Date Time Temp Pulse Resp B/P (MAP) Pulse Ox O2 Delivery O2 Flow Rate FiO2 04/30/19 09:47 Nasal Cannula 2.00 04/30/19 05:04 37.0 68 18 125/65 (85) 95 Nasal Cannula 2.00 04/29/19 21:00 95 Nasal Cannula 2.00 04/29/19 17:29 36.2 76 16 122/68 (86) 95 Nasal Cannula 2.00 04/29/19 16:37 76 117/63 (81) 04/29/19 15:50 36.8 70 14 94/56 (69) 95 Nasal Cannula 1.50 I & O 04/30/19 07:00 Intake Total 2338 ml Output Total 1500 ml Balance 838 ml Capillary Refill : Less Than 3 Seconds General Appearance: No Apparent Distress, Chronically ill HEENT: PERRL/EOMI; No Pale Conjunctivae (L), No Pale Conjunctivae (R), No Scleral Icterus (L), No Scleral Icterus (R) Neck: Non Tender, Supple Respiratory: Chest Non Tender, Lungs Clear, Normal Breath Sounds, No Accessory Muscle Use, No Respiratory Distress Cardiovascular: Regular Rate, Rhythm, No Edema Peripheral Pulses: 2+ Dorsalis Pedis (R), 2+ Left Dors-Pedis (L), 2+ Radial Pulses (R), 2+ Radial Pulses (L) Gastrointestinal: normal bowel sounds, non tender, soft, other (pt has 2 working Ileostomies (pink and functional), midline open wound majority with granulation tissue except on area left upper portion of wound that has slight rind to it) Extremity: No Calf Tenderness Neurologic/Psychiatric: Alert Skin: Normal Color, Warm/Dry Results Lab Laboratory Tests 04/29/19 18:18: Glucometer 130H 04/30/19 00:34: Glucometer 184H 04/30/19 04:57: Glucometer 191H 04/30/19 14:09: Glucometer 155H Assessment/Plan Assessment/Plan Assessment/Plan open abdominal wall with vicryl mesh and wound vac Ileostomy x 2 Malnutrition Mild Dementia Wound granulating in at last visit, area of rind that may need debriding at last check. Continue to follow healing of wound, monitor for changes in progress. Plan to try and wean TPN in order to get her on PO foods (most likely high protein shakes) and that way [facility]. May also need to talk to dietary regarding special feedings for people with short gut syndrome (short chain amino acid feedings?). Clinical Quality Measures DVT/VTE Risk/Contraindication: Risk Factor Score Per Nursin RFS Level Per Nursing on Admit: 4+=Very High MISSY MONTEJO DO Apr 30, 2019 15:26
--- NOTE | 2019-04-30 15:37 | Cardiology Progress Note ---
Cardiology SOAP Progress Note Subjective: No cardiac complaints. Objective: I&O/Vital Signs 04/30/19 04/30/19 05:04 09:47 Temp 37.0 Pulse 68 Resp 18 B/P (MAP) 125/65 (85) Pulse Ox 95 O2 Delivery Nasal Cannula Nasal Cannula O2 Flow Rate 2.00 2.00 04/30/19 00:00 Intake Total 2138 ml Output Total 800 ml Balance 1338 ml Weight (Pounds): 160 Weight (Ounces): 0.0 Weight (Calculated Kilograms): [id number] Constitutional: AAO x 3, well-developed, well-nourished Respiratory: chest expansion is symmetric, chest is bilaterally symmetric, other Cardiovascular: irregularly irregular, S1 and S2 Gastrointestional: other Extremities: no lower extremity edema bilateral Neurologic/Psychiatric: no motor/sensory deficits, alert, normal mood/affect, oriented x 3, grossly intact Skin: normal color Results/Procedures: Labs Laboratory Tests 04/29/19 18:18: Glucometer 130H 04/30/19 00:34: Glucometer 184H 04/30/19 04:57: Glucometer 191H 04/30/19 14:09: Glucometer 155H A/P: Assessment/Dx: PAF CAD HTN HLP Plan: H/O multiple abdominal surgeries, had bowel resection and diverting ileostomy, last procedure was done on March 13, [address], followed by surgical services, recent transfer from [place] on 04-18-19 Paroxysmal atrial fibrillation, maintained on Lopressor, Eliquis. Continue to monitor. Labile hypertension, blood pressure well controlled at this time, continue to monitor. H/O acute renal insufficiency, continue to monitor renal function. Coronary artery disease - Most recent cardiac catheterization done April 2018 revealed mild ectasia in the proximal LAD with mild disease in the mid LAD, small vessel disease distally, mild ectasia in the proximal circumflex artery and 40-50 percent stenosis in the mid right coronary artery, nonobstructive disease History of colon cancer, history of colon resection and colostomy in the past, followed by Dr. Branham Hyperlipidemia- continue to monitor lipids as outpatient. Carotid artery stenosis, bilateral nonobstructive disease per carotid duplex done December 2018, continue to monitor. History of thyroid nodules noted on ultrasound, followed by Dr. Branham and Dr. Simmons Diabetes mellitus Family history of coronary artery disease. Obstructive sleep apnea, intolerance to CPAP History of appendectomy, kidney stones, hysterectomy. Breast biopsy. Anemia, continue to monitor, management per Dr Hand Thank you for your consultation. Please call me if you have any questions. Martha Spear MD, FACP, FACC, FSCAI, FHRS, CCDS Interventional Cardiology Cardiac Electrophysiology Vascular Medicine and Endovascular Interventions Gumaro SPEAR MD Apr 30, 2019 15:36
[2019-04-30] MEDS: SODIUM ACETATE IV SCH ×11 (17:36)
[2019-04-30] MEDS: POTASSIUM ACETATE IV SCH ×11 (17:36)
[2019-04-30] MEDS: [UNRECOGNIZED DRUG - OTHER] IV SCH ×11 (17:36)
[2019-04-30 18:00] VITALS: BP 121/72
[2019-05-01 05:06] VITALS: BP 124/64
[2019-05-01] MEDS: inSUlin ASPART (NovoLOG) 1 UNIT/0.01 ML (CHARGE PER UNIT) SC SCH ×4 (05:56→18:35)
[2019-05-01] MEDS: CATHETER FLUSH 10 ML SYR IV SCH ×3 (05:57→20:27)
[2019-05-01] MEDS: HYDROcodone/APAP 5 MG/325 MG (LORTAB) TAB PO PRN ×2 (08:56→18:22)
[2019-05-01] MEDS: APIXABAN 5 MG (ELIQUIS) TABLET PO SCH ×2 (08:58→20:25)
[2019-05-01] MEDS: SERTRALINE 50 MG (ZOLOFT) TABLET PO SCH (08:58)
[2019-05-01] MEDS: meTOprolol TARTRATE 50 MG (LOPRESSOR) TAB PO SCH ×2 (08:58→20:25)
[2019-05-01] MEDS: ENALAPRIL 5 MG (VASOTEC) TAB PEG SCH (08:58)
[2019-05-01] MEDS: OXYBUTYNIN (DITROPAN) 5 MG TAB PO SCH ×2 (08:58→20:25)
[2019-05-01] MEDS: FAMOTIDINE 20 MG (PEPCID) TABLET PO SCH (08:59)
[2019-05-01] MEDS: NYSTATIN ORAL SUSP 5 ML UDC PO SCH ×4 (08:59→20:27)
[2019-05-01] MEDS: VISC LIDOCAINE/ANTACID/DIPHENHYDRAMINE 1:1:1 120 ML PO SCH ×15 (09:10→20:59)
[2019-05-01] MEDS: FLUTICASONE NASAL SPRAY (FLONASE) 16 GM BTL NS SCH (09:11)
--- NOTE | 2019-05-01 12:00 | NUR ---
Patient family visiting at bedside, requests ensure shake with lunch. chocolate available and offered, patient enjoys 120ml with 50% lunch bites. will continue to monitor.
--- NOTE | 2019-05-01 13:25 | PM&R Progress Note ---
Subjective HPI/CC On Admission Date Seen by Provider: May 01, 2019 Time Seen by Provider: 10:15 Subjective/Events-last exam Overall poor prognosis long-term. Eating a little more each day ~ 25% Wound vac managed by Sunny and Dr. Cohen and Dr Willett. Pt needs fdc at [place] but TPN limiting options locally Bed ridden state noted Pt overall has a very long recovery expected and prognosis is guarded at best. LFTs are elevated due to TPN cholestasis will monitor closely Patient appears more declined every day just very slowly Blood sugars reviewed, more controlled Cognition is an issue Conferred with RN Check meds and labs Reviewed therapy notes Long recovery expected Review of Systems General: Fatigue Gastrointestinal: Abdominal Pain Neurological: Confusion Objective Exam Vital Signs Vital Signs Date Time Temp Pulse Resp B/P (MAP) Pulse Ox O2 Delivery O2 Flow Rate FiO2 05/01/19 17:32 37.0 73 20 117/74 (88) 94 Nasal Cannula 2.00 Capillary Refill : Less Than 3 Seconds General Appearance: No Apparent Distress, Anxious, Chronically ill, Thin, Other (mcneil) HEENT: PERRL/EOMI; No Pale Conjunctivae (L), No Pale Conjunctivae (R), No Scleral Icterus (L), No Scleral Icterus (R) Neck: Non Tender, Supple Respiratory: Chest Non Tender, Lungs Clear, Normal Breath Sounds, No Accessory Muscle Use, No Respiratory Distress Cardiovascular: Regular Rate, Rhythm, No Edema Gastrointestinal: Normal Bowel Sounds, No Organomegaly, No Pulsatile Mass, Non Tender, Soft Back: Normal Inspection, No CVA Tenderness, No Vertebral Tenderness Extremity: No Calf Tenderness Neurologic/Psychiatric: Alert, Oriented x3, Normal Mood/Affect, home appliance tech II-XII Norm as Tested, Disoriented, Motor Weakness (generalized 3/5 all extremities) Skin: Normal Color, Warm/Dry Results/Procedures Lab Patient resulted labs reviewed. FIM Transfers Therapy Code Descriptions/Definitions Functional [place] Measure: 0=Not Assessed/NA 4=Minimal Assistance 1=Total Assistance 5=Supervision or Setup 2=Maximal Assistance 6=Modified [place] 3=Moderate Assistance 7=Complete IndependenceSCALE: Activities may be completed with or without assistive devices. 9-Rrysnwakwf-bacwsaw completes the activity by him/herself with no assistance from a helper. 5-Set-up or Clean-up Assistance-helper sets up or cleans up; patient completes activity. Half [address] assists only prior to or following the activity. 4-Supervision or Touching Assistance-helper provides verbal cues and/or touching/steadying and/or contact guard assistance as patient completes activity. Assistance may be provided throughout the activity or intermittently. 3-Partial/Moderate Assistance-helper does LESS THAN HALF the effort. Half Way lifts, holds or supports trunk or limbs, but provides less than half the effort. 2-Substantial/Maximal Assistance-helper does MORE THAN HALF the effort. Half Way lifts or holds trunk or limbs and provides more than half the effort. 6-Yhqfggtpy-uquvrj does ALL the effort. Patient does none of the effort to complete the activity. Or, the assistance of 2 or more helpers is required for the patient to complete the activity. If activity was not attempted, code reason: 7-Patient Refused. 9-Not Applicable-not attempted and the patient did not perform the activity before the current illness, exacerbation or injury. 10-Not Attempted due to Environmental Limitations-(lack of equipment, weather restraints, etc.). 88-Not Attempted due to Medical Conditions or Safety Concerns. Roll Left to Right (QC): 1 Sit to Lying (QC): 1 Sit to Stand (QC): 1 Chair/Wdr-ji-Pgbop Xfer(QC): 1 Car Transfer (QC): 88 Gait Training Does the Patient Walk?: No and Walking Goal NOT indicated Walk 10 feet (QC): 88 Walk 50 ft with 2 Turns(QC): 88 Walk 150 ft (QC): 88 Walking 10ft/uneven surface-QC: 88 Wheelchair Training Does the Pt Use a Wheelchair?: Yes Wheel 50 ft with 2 turns (QC): 88 Wheel 150 ft (QC): 88 Type of Wheelchair: Manual Stair Training 1 Step (curb) (QC): 88 4 Steps (QC): 88 12 Steps (QC): 88 Balance Picking up an Object (QC): 88 ADL-Treatment Eating (QC): 4 (Pt. is able to eat soft foods now. Pt. given spoon with built up handle and small cup of ice cream. Pt. able to hold ice cream and dip spoon, bring to mouth. Pt. not very hungry, so did not eat much. OT brought in plate guard as well and educated daughter and pt. on use. Looking for available Devin cup for pt. for easier drinking access.) Oral Hygiene (QC): 4 (SBA for pt. to swab gums, and tongue. Pt. 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 Diabetes mellitus Low albumin TPN required but weaning while increasing PO intake History of respiratory failure Elevated liver enzymes due to cholestasis from TPN Anemia receiving iron infusions Confusion with undercurrent of dementia Decubitus ulcers Tachycardia consulted now resolved Plan: Inpatient rehab protocol TPN wean and increasing PO nutrition will start calorie count and fluid intake PO Wound care for pressure ulcers Wound vac managed by Sunny [facility] surgeons Air bed Monitor labs and checking in morning Iron infusions Chey lift and bedridden state Appreciate Cardiology for tachycardia management Iron infusions completing Dr Willett spoke to family yesterday (1) Critical illness myopathy Status: Acute (2) Essential hypertension Status: Chronic (3) Abdominal pain (4) HLP (5) Headache Status: Acute (6) Perforated abdominal viscus Status: Acute (7) Postoperative abdominal pain Status: Acute (8) IDDM (insulin dependent diabetes mellitus) Status: Chronic YARON GALLAGHER DO May 01, 2019 13:25
--- NOTE | 2019-05-01 13:37 | Cardiology Progress Note ---
Cardiology SOAP Progress Note Subjective: no cardiac complaints. Objective: I&O/Vital Signs 05/01/19 05/01/19 05/01/19 05:06 07:30 09:00 Temp 37.0 Pulse 80 Resp 18 B/P (MAP) 124/64 (84) Pulse Ox 93 90 93 O2 Delivery Nasal Cannula High Flow N/C Nasal Cannula O2 Flow Rate 2.00 3.00 1.00 05/01/19 00:00 Intake Total 233 ml Output Total 650 ml Balance -417 ml Weight (Pounds): 160 Weight (Ounces): 0.0 Weight (Calculated Kilograms): [id number] Constitutional: AAO x 3, well-developed, well-nourished Respiratory: chest expansion is symmetric, chest is bilaterally symmetric, other Cardiovascular: regular rate-rhythm, S1 and S2 Gastrointestional: other Extremities: no lower extremity edema bilateral Neurologic/Psychiatric: no motor/sensory deficits, alert, normal mood/affect, oriented x 3, grossly intact Skin: normal color Results/Procedures: Labs Laboratory Tests 04/30/19 14:09: Glucometer 155H 04/30/19 18:35: Glucometer 130H 05/01/19 00:10: Glucometer 156H 05/01/19 05:53: Glucometer 186H 05/01/19 11:38: Glucometer 152H A/P: Assessment/Dx: PAF CAD HTN HLP Plan: H/O multiple abdominal surgeries, had bowel resection and diverting ileostomy, last procedure was done on March 13, 2019, followed by surgical services, recent transfer from [place] on 04-18-19 Paroxysmal atrial fibrillation, maintained on Lopressor, Eliquis. Continue to monitor. Labile hypertension, blood pressure well controlled at this time, continue to monitor. H/O acute renal insufficiency, continue to monitor renal function. Coronary artery disease - Most recent cardiac catheterization done April 2018 revealed mild ectasia in the proximal LAD with mild disease in the mid LAD, small vessel disease distally, mild ectasia in the proximal circumflex artery and 40-50 percent stenosis in the mid right coronary artery, nonobstructive disease History of colon cancer, history of colon resection and colostomy in the past, followed by Dr. Branham Hyperlipidemia- continue to monitor lipids as outpatient. Carotid artery stenosis, bilateral nonobstructive disease per carotid duplex done December 2018, continue to monitor. History of thyroid nodules noted on ultrasound, followed by Dr. Branham and Dr. Simmons Diabetes mellitus Family history of coronary artery disease. Obstructive sleep apnea, intolerance to CPAP History of appendectomy, kidney stones, hysterectomy. Breast biopsy. Anemia, continue to monitor, management per Dr Hand Thank you for your consultation. Please call me if you have any questions. Martha Spear MD, FACP, FACC, FSCAI, FHRS, CCDS Interventional Cardiology Cardiac Electrophysiology Vascular Medicine and Endovascular Interventions Gumaro SPEAR MD May 01, 2019 13:37
--- NOTE | 2019-05-01 14:30 | NUR ---
patient coughing, voices, "feels dry in my mouth", good oral cares given. voices c/o eyes feeling dry. pt voices, "I feel I've been awake most of the day without napping. That hasn't happened in a long time." warm compress to closed eyes applied. "voices feels better." patient rests with eyes closed.
[2019-05-01] MEDS: [UNRECOGNIZED DRUG - OTHER] IV SCH ×11 (17:02)
[2019-05-01] MEDS: SODIUM ACETATE IV SCH ×11 (17:02)
[2019-05-01] MEDS: POTASSIUM ACETATE IV SCH ×11 (17:02)
[2019-05-01 17:32] VITALS: BP 117/74
[2019-05-02] MEDS: inSUlin ASPART (NovoLOG) 1 UNIT/0.01 ML (CHARGE PER UNIT) SC SCH ×4 (00:36→18:12)
[2019-05-02] MEDS: HYDROcodone/APAP 5 MG/325 MG (LORTAB) TAB PO PRN ×2 (05:35→21:18)
[2019-05-02] MEDS: CATHETER FLUSH 10 ML SYR IV SCH ×3 (05:37→22:05)
[2019-05-02 05:59] VITALS: BP 154/65
[2019-05-02 08:18] VITALS: BP 124/62
[2019-05-02] MEDS: fentaNYL PATCH 25 MCG (DURAGESIC) TD SCH (08:19)
[2019-05-02] MEDS: APIXABAN 5 MG (ELIQUIS) TABLET PO SCH ×2 (08:19→21:17)
[2019-05-02] MEDS: ENALAPRIL 5 MG (VASOTEC) TAB PEG SCH (08:19)
[2019-05-02] MEDS: OXYBUTYNIN (DITROPAN) 5 MG TAB PO SCH ×2 (08:19→21:17)
[2019-05-02] MEDS: FAMOTIDINE 20 MG (PEPCID) TABLET PO SCH (08:19)
[2019-05-02] MEDS: NYSTATIN ORAL SUSP 5 ML UDC PO SCH ×4 (08:19→22:04)
[2019-05-02] MEDS: meTOprolol TARTRATE 50 MG (LOPRESSOR) TAB PO SCH ×2 (08:19→21:20)
[2019-05-02] MEDS: SERTRALINE 50 MG (ZOLOFT) TABLET PO SCH (08:19)
[2019-05-02] MEDS: VISC LIDOCAINE/ANTACID/DIPHENHYDRAMINE 1:1:1 120 ML PO SCH ×12 (08:20→22:04)
[2019-05-02] MEDS: FLUTICASONE NASAL SPRAY (FLONASE) 16 GM BTL NS SCH (08:20)
[2019-05-02] MEDS: FENTANYL PATCH REMOVAL TP SCH (09:30)
--- NOTE | 2019-05-02 10:01 | NUR ---
SW met with patient to discuss progress and review Team Conference Summary. Prior to meeting with patient, SW was informed that patient has required a fair amount of encouragement to participate with therapies and that she is not tolerate the extensive therapies and has verbalized that "it is too much". Upon further discussion with patient, she again states that she does not feel that she is making progress or regaining strength, but also admits to not making appropriate effort to achieve progress. SW reviewed recommendation of SNF placement as family has expressed their inability to provide 24hour care. Patient and family had recently discussed the idea of patient admitting to [facility], upon ARU discharge if patient was unable to return home; however, due to TPN need, [facility] is not an available option at this time. SW received report that patient was refusing to eat; SW reminded patient that oral intake is pertinent to dc'ing the TPN and that if TPN remained in place at discharge, SNF options would not be local. Patient appeared to follow this conversation; however, did have several periods of confusion regarding unrelated items. To enhance encouragement, SW did inform patient that information had been provided regarding SNF placement in the [place], [place] or [place], [place] area that could accommodate TPN. If required to choose, patient selected the [place] area. SW then contacted patient's daughter, Jeni via phone to discuss similar conversation. Jeni expresses frustration regarding information of the patient requiring encouragement to participate, refusal to eat and discuss of SNF placement outside the local area. She states staff has not communicated with her and that she has been present, yet noone has mentioned her lack of toleration or participation. She was under the impression that TPN could be dc'd soon, in order for the patient to admit to [facility]. Jeni intends to visit patient this afternoon and provide encouragement for patient to participate and to eat. MATT did forewarn Jeni that this encouragement may not have follow through due to patient's confusion. MATT will meet with patient and daughter when Jeni is present. 330p-MATT met with patient and daughter. Jeni provided necessary encouragement; however, patient struggled with remembering "what was needed". MATT also reviewed Team Conference Summary to discuss the lack of progress that has occurred since admission and the concern with her ability to tolerate, as PT/OT has co-treated since admission. Jeni states Dr. Willett will visit tomorrow at noon and is hoping for further clarification/direction on TPN duration. MATT has spoke with Dr. Willett regarding complexity of discharge plans and concerns. MATT will meet with patient and family with Dr. Willett tomorrow.
--- NOTE | 2019-05-02 10:32 | PM&R Progress Note ---
Subjective HPI/CC On Admission Date Seen by Provider: May 02, 2019 Time Seen by Provider: 09:15 Subjective/Events-last exam Overall poor prognosis long-term. Was eating a little more each day ~ 25% until the day and now she is refusing to eat Wound vac managed by Sunny and Dr. Cohen and Dr Willett. Pt [facility] [place] but TPN limiting options locally and I did update director to proceed on with outside of locale who can manage TPN Bed ridden state noted and reluctant to get out of bed or even seated Pt overall has a very long recovery expected and prognosis is guarded at best. LFTs are elevated due to TPN cholestasis will monitor closely patient becoming more more jaundiced total bilirubin 3.7 last check Patient appears more declined every day just very slowly Blood sugars reviewed, more controlled Cognition is an issue Conferred with RN Check meds and labs Reviewed therapy notes Long recovery expected if recovery realistic at all. Review of Systems General: Fatigue Gastrointestinal: Abdominal Pain Objective Exam Vital Signs Vital Signs Date Time Temp Pulse Resp B/P (MAP) Pulse Ox O2 Delivery O2 Flow Rate FiO2 05/02/19 09:00 Nasal Cannula 1.00 05/02/19 08:18 80 124/62 (82) 05/02/19 08:07 90 05/02/19 05:59 37.4 20 Capillary Refill : Less Than 3 Seconds General Appearance: No Apparent Distress, Anxious, Chronically ill, Thin, Other (mcneil) HEENT: PERRL/EOMI; No Pale Conjunctivae (L), No Pale Conjunctivae (R), No Scleral Icterus (L), No Scleral Icterus (R) Neck: Non Tender, Supple Respiratory: Chest Non Tender, Lungs Clear, Normal Breath Sounds, No Accessory Muscle Use, No Respiratory Distress Cardiovascular: Regular Rate, Rhythm, No Edema Gastrointestinal: Normal Bowel Sounds, No Organomegaly, No Pulsatile Mass, Non Tender, Soft Back: Normal Inspection, No CVA Tenderness, No Vertebral Tenderness Extremity: No Calf Tenderness Neurologic/Psychiatric: Alert, Oriented x3, Normal Mood/Affect, debug technician II-XII Norm as Tested, Disoriented, Motor Weakness (generalized 3/5 all extremities) Skin: Normal Color, Warm/Dry Results/Procedures Lab Patient resulted labs reviewed. FIM Transfers Therapy Code Descriptions/Definitions Functional [place] Measure: 0=Not Assessed/NA 4=Minimal Assistance 1=Total Assistance 5=Supervision or Setup 2=Maximal Assistance 6=Modified [place] 3=Moderate Assistance 7=Complete IndependenceSCALE: Activities may be completed with or without assistive devices. 8-Uadlicpjwt-yqxwixe completes the activity by him/herself with no assistance from a helper. 5-Set-up or Clean-up Assistance-helper sets up or cleans up; patient completes activity. [place] assists only prior to or following the activity. 4-Supervision or Touching Assistance-helper provides verbal cues and/or touching/steadying and/or contact guard assistance as patient completes acti vity. Assistance may be provided throughout the activity or intermittently. 3-Partial/Moderate Assistance-helper does LESS THAN HALF the effort. [place] lifts, holds or supports trunk or limbs, but provides less than half the effort. 2-Substantial/Maximal Assistance-helper does MORE THAN HALF the effort. [place] lifts or holds trunk or limbs and provides more than half the effort. 1-Wvcocpkkp-rkumja does ALL the effort. Patient does none of the effort to complete the activity. Or, the assistance of 2 or more helpers is required for the patient to complete the activity. If activity was not attempted, code reason: 7-Patient Refused. 9-Not Applicable-not attempted and the patient did not perform the activity before the current illness, exacerbation or injury. 10-Not Attempted due to Environmental Limitations-(lack of equipment, weather restraints, etc.). 88-Not Attempted due to Medical Conditions or Safety Concerns. Roll Left to Right (QC): 1 Sit to Lying (QC): 1 Sit to Stand (QC): 1 Chair/Xon-ry-Lzdsl Xfer(QC): 1 Car Transfer (QC): 88 Gait Training Does the Patient Walk?: No and Walking Goal NOT indicated Walk 10 feet (QC): 88 Walk 50 ft with 2 Turns(QC): 88 Walk 150 ft (QC): 88 Walking 10ft/uneven surface-QC: 88 Wheelchair Training Does the Pt Use a Wheelchair?: Yes Wheel 50 ft with 2 turns (QC): 88 Wheel 150 ft (QC): 88 Type of Wheelchair: Manual Stair Training 1 Step (curb) (QC): 88 4 Steps (QC): 88 12 Steps (QC): 88 Balance Picking up an Object (QC): 88 ADL-Treatment Eating (QC): 4 (Pt. is able to eat soft foods now. Pt. given spoon with built up handle and small cup of ice cream. Pt. able to hold ice cream and dip spoon, bring to mouth. Pt. not very hungry, so did not eat much. OT brought in plate guard as well and educated daughter and pt. on use. Looking for available Devin cup for pt. for easier drinking access.) Oral Hygiene (QC): 4 (SBA for pt. to swab gums, and tongue. Pt. 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 Diabetes mellitus Low albumin TPN required but weaning while increasing PO intake History of respiratory failure Elevated liver enzymes due to cholestasis from TPN Anemia receiving iron infusions Confusion with undercurrent of dementia Decubitus ulcers Tachycardia consulted now resolved Plan: Inpatient rehab protocol TPN wean and increasing PO nutrition will start calorie count and fluid intake PO Wound care for pressure ulcers Wound vac managed by Sunny and surgeons Air bed Monitor labs and checking in morning Iron infusions Chey lift and bedridden state Appreciate Cardiology for tachycardia management Iron infusions completing Dr Willett spoke to family Refuses to eat today 05/02/19 and participate in therapy remains bedridden (1) Critical illness myopathy Status: Acute (2) Essential hypertension Status: Chronic (3) Abdominal pain (4) HLP (5) Headache Status: Acute (6) Perforated abdominal viscus Status: Acute (7) Postoperative abdominal pain Status: Acute (8) IDDM (insulin dependent diabetes mellitus) Status: Chronic YARON GALLAGHER DO May 02, 2019 10:32
--- NOTE | 2019-05-02 10:54 | Physical Therapy Daily Note ---
PT Daily Note-Current Subjective Pt laying Supine in bed upon arrival. Pt agrees to PT/OT co-treat due to pt fatigue, weakness and activity tolerance at this time. Pt is scored for QC for possible D/C. Pain Numeric Pain Scale: 5-Moderate Pain Location Body Site: Abdomen Pain Description: Tightness Comment: Pt reports pain when rolling but doesn't rate. Mental Status Patient Orientation: Person, Confused, Place Attachments: Oxygen, Wing Catheter, Other-See Comments (Wound Vac.), IV Transfers SCALE: Activities may be completed with or without assistive devices. 1-Yarexwapdk-dztmnpx completes the activity by him/herself with no assistance from a helper. 5-Set-up or Clean-up Assistance-helper sets up or cleans up; patient completes activity. [place] assists only prior to or following the activity. 4-Supervision or Touching Assistance-helper provides verbal cues and/or touching/steadying and/or contact guard assistance as patient completes activity. Assistance may be provided throughout the activity or intermittently. 3-Partial/Moderate Assistance-helper does LESS THAN HALF the effort. [place] lifts, holds or supports trunk or limbs, but provides less than half the effort. 2-Substantial/Maximal Assistance-helper does MORE THAN HALF the effort. [place] lifts or holds trunk or limbs and provides more than half the effort. 5-Kskxvktwp-wrnycq does ALL the effort. Patient does none of the effort to complete the activity. Or, the assistance of 2 or more helpers is required for the patient to complete the activity. If activity was not attempted, code reason: 7-Patient Refused. 9-Not Applicable-not attempted and the patient did not perform the activity before the current illness, exacerbation or injury. 10-Not Attempted due to Environmental Limitations-(lack of equipment, weather restraints, etc.). 88-Not Attempted due to Medical Conditions or Safety Concerns. Roll Left & Right (QC): 1 Sit to Lying (QC): 1 Lying to Sitting/Side of Bed(Q: 1 Chair/Qkq-gi-Cuarb Xfer(QC): 1 Gait Training Does the Patient Walk?: No and Walking Goal NOT indicated Exercises Supine Ex: Ankle pumps, Quad Set, Rolling Supine Reps: 10 Treatments Co-treatment with PT due to pt's fatigue, anxiety with movement, medical status, and need of skilled treatment x 2. When handed wash cloth pt able to wash face, UE's and chest. Assist to wash lower body. Assist with donning/doffing socks and manipulating clothing. PT assisted with turning pt and educating pt on how to initiate turning for bed mobility. Pt able to bring oral swab to mouth in lying and sitting EOB. OT facilitated hand placement when sitting on side of bed, as well as upright mobility. PT facilitated trunk control and upright mobility while behind pt. on side of bed. Pt. required max x 2 for supine <--> sit. Retropulsive and anxious at first. Pt was able to sit EOB with SBA x2 for safety. PT/OT used Chey lift to transfer to recliner. After therapy, pt lying on R side to decrease pressure on buttocks with call light/phone in reach. All needs met in room. Assessment Current Status: Fair Progress Pt fatigues easily and gets anxious at sitting at EOB. Pt is encouraged throughout Rx to continue upright Rx as much as possible. PT Short Term Goals Short Term Goals Time Frame: Apr 25, 2019 Roll Left & Right: 3 (mod A) Sit to lyin (modA) Lying to sitting on side of be: 3 (modA) Sit to stand: 3 (modA) Chair/vnk-in-hqvgq transfer: 3 (modA) PT Traffic Administrator Goals Assisted Goals PT Traffic Administrator Goals Time Frame: May 09, 2019 Roll Left & Right (QC): 3 (Chet) Sit to Lying (QC): 3 (Chet) Lying-Sitting on Side/Bed(QC): 3 (Chet) Sit to Stand (QC): 3 (Chet) Chair/Vdg-pp-Kggxd Xfer(QC): 3 (Chet) Toilet Transfer (QC): 3 (Chet) Car Transfer (QC): 3 (Chet) Does the Patient Walk: No and Walking Goal NOT indicated Walk 10 feet (QC): 88 Walk 50ft with 2 Turns (QC): 88 Walk 150 ft (QC): 88 Walking 10ft on Uneven Surface: 88 1 Step (curb) (QC): 88 4 Steps (QC): 88 12 Steps (QC): 88 Picking up an Object (QC): 88 Does the Pt use WC or Scooter?: Yes Wheel 50 feet with 2 turns (QC: 4 (SBA) Type: Manual Wheel 150 feet: 4 (SBA) Type: Manual PT Plan Problem List Problem List: Activity Tolerance, Functional Strength, Safety, Balance, Transfer, Bed Mobility Treatment/Plan Treatment Plan: Continue Plan of Care Treatment Plan: Bed Mobility, Concurrent Therapy, Education, Functional Activity José, Functional Strength, Group Therapy, Gait, Safety, Therapeutic Exercise, Transfers Treatment Duration: May 09, 2019 Frequency: At least 5 of 7 days/Wk (IRF) Estimated Hrs Per Day: 1.5 hours per day Patient and/or Family Agrees t: Yes Safety Risks/Education Patient Education: Transfer Techniques, Correct Positioning, Safety Issues Teaching Recipient: Patient Teaching Methods: Discussion Response to Teaching: Reinforcement Needed Time/GCodes Time In: 900 Time Out: 1015 Total Billed Treatment Time: 75 Total Billed Treatment 1, EX (15m) & FA x4 (60m) Co-treat w/OT for 75m BRITTANY HARTMAN CYLINDER DIE MACHINE OPERATOR May 02, 2019 10:54
--- NOTE | 2019-05-02 11:16 | Speech Therapy Daily Note ---
Speech Daily Progress Note Subjective Date Seen by Provider: May 02, 2019 Time Seen by Provider: 00:30 Patient's breakfast was at bedside, however she was refusing to eat any of it. Objective Patient completed a series of general information memory tasks with 90% given 10% verbal cues. Assessment Assessment Current Status: Good Progress Treatment Plan Continue Plan of Care Speech Short Term Goals Short Term Goals Short Term Goals 1) Patient will complete memory tasks related to her daily needs at 90% or greater with minimal cues. 2) Patient will complete problem solving tasks related to her daily needs at 90% or greater with minimal cues. 3) Patient will complete safety awareness tasks related to her daily needs at 90% or greater with minimal cues. Speech Payroll Assistant Goals Penitentiary Goals Patient will improve cognitive-communication necessary for safety and daily living tasks with minimal assist. Speech-Plan Patient/Family Goals Patient/Family Goals: Patient plans on returning to her daughter's home upon rehab discharge. Treatment Plan Speech Therapy Treatment Plan: Continue Plan of Care Patient appeared to be depressed this date. Treatment Duration: May 17, 2019 Frequency: 5 times per week Estimated Hrs Per Day: .5 hour per day Rehab Potential: Guarded Barriers to Learning: Patient's medical status Pt/Family Agrees to Plan: Yes Safety Risks/Education Teaching Recipient: Patient Teaching Methods: Demonstration, Discussion Response to Teaching: Verbalize Understanding, Return Demonstration Education Topics Provided: Continued safety and communication of wants/needs Time Speech Therapy Time In: 08:00 Speech Therapy Time Out: 08:30 Total Billed Time: 30 Billed Treatment Time 1, SLTS No QUALITY CODES: EXPRESSION OF IDEAS/WANTS: 4 UNDERSTANDING VERBAL CONTENT: 4 BRIEF INTERVIEW MENTAL STATUS: YES REPETITION OF 3 WORDS: 3 TEMPORAL ORIENTATION: YEAR:CORRECT, MONTH:CORRECT, DAY:CORRECT RECALL: SOCK WITH CUE, COLOR WITH CUE, BED WITH CUE MEMORY/RECALL ABILITY: SEASON, STAFF NAMES, LOCATION OF ROOM, THAT SHE IS IN THE [facility] May 02, 2019 11:16
--- NOTE | 2019-05-02 12:55 | Occupational Ther Daily Note ---
OT Current Status-Daily Note ADL-Treatment Co-treatment with PT due to pt's fatigue, anxiety with movement, medical status, and need of skilled treatment x 2. When handed wash cloth pt able to wash face, UE's and chest. Assist to wash lower body. Assist with donning/doffing socks and manipulating clothing. PT assisted with turning pt and educating pt on how to initiate turning for bed mobility. Pt able to bring oral swab to mouth in lying and sitting EOB. OT facilitated hand placement when sitting on side of bed, as well as upright mobility. PT facilitated trunk control and upright mobility while behind pt. on side of bed. Pt. required max x 2 for supine <--> sit. Retropulsive and anxious at first. Pt was able to sit EOB with SBA x2 for safety. After therapy, pt lying on R side to decrease pressure on buttocks with call light/phone in reach. All needs met in room. Therapy Code Descriptions/Definitions Functional [place] Measure: 0=Not Assessed/NA 4=Minimal Assistance 1=Total Assistance 5=Supervision or Setup 2=Maximal Assistance 6=Modified [place] 3=Moderate Assistance 7=Complete IndependenceSCALE: Activities may be completed with or without assistive devices. 7-Kkjzmpznod-hbvkikm completes the activity by him/herself with no assistance from a helper. 5-Set-up or Clean-up Assistance-helper sets up or cleans up; patient completes activity. [place] assists only prior to or following the activity. 4-Supervision or Touching Assistance-helper provides verbal cues and/or touching/steadying and/or contact guard assistance as patient completes activity. Assistance may be provided throughout the activity or intermittently. 3-Partial/Moderate Assistance-helper does LESS THAN HALF the effort. [place] lifts, holds or supports trunk or limbs, but provides less than half the effort. 2-Substantial/Maximal Assistance-helper does MORE THAN HALF the effort. [place] lifts or holds trunk or limbs and provides more than half the effort. 3-Pwogrvcrv-ighkiy does ALL the effort. Patient does none of the effort to complete the activity. Or, the assistance of 2 or more helpers is required for the patient to complete the activity. If activity was not attempted, code reason: 7-Patient Refused. 9-Not Applicable-not attempted and the patient did not perform the activity before the current illness, exacerbation or injury. 10-Not Attempted due to Environmental Limitations-(lack of equipment, weather restraints, etc.). 88-Not Attempted due to Medical Conditions or Safety Concerns. Eating (QC): 88 Oral Hygiene (QC): 5 (Pt is able to use swab to cleanse mouth.) Shower/Bathe Self (QC): 1 Upper Body Dressing (QC): 2 Lower Body Dressing (QC): 1 On/Off Footwear: 1 Toileting Hygiene (QC): 88 Toilet Transfer (QC): 88 Other Treatment Pt able to complete B UE's against gravity for daily functional activities. After therapy, pt sitting in recliner with call light/phone in reach. All needs met in room. OT Short Term Goals Short Term Goals Time Frame: May 02, 2019 Eatin Oral hygiene: 4 Toileting hygiene: 3 Shower/bathe self: 3 Upper body dressin Lower body dressin Putting on/taking off footwear: 3 OT Assisted Goals Ophthalmic Aide Goals Time Frame: May 16, 2019 Eating (QC): 6 Oral Hygiene (QC): 6 Toileting Hygiene (QC): 5 Shower/Bathe Self (QC): 4 Upper Body Dressing (QC): 5 Lower Body Dressing (QC): 5 On/Off Footwear (QC): 5 Additional Goals: 1-Demonstrate ADL Tasks, 2-Verbalize Understanding, 3-ImproveStrength/José 1=Demonstrate adherence to instructed precautions during ADL tasks. 2=Patient will verbalize/demonstrate understanding of assistive devices/modifications for ADL. 3=Patient will improve strength/tolerance for activity to enable patient to perform ADL's. OT Education/Plan Problem List/Assessment Assessment: Decreased Activ Tolerance, Decreased Safety Aware, Decreased UE Strength, Dependent Transfers, Impaired Bed Mobility, Impaired Coordination, Impaired Funct Balance, Impaired I ADL's, Impaired Self-Care Skills Discharge Recommendations Plan/Recommendations: Continue POC Treatment Plan/Plan of Care Patient would benefit from OT for education, treatment and training to promote independence in ADL's, mobility, safety and/or upper extremity function for ADL's. Plan of Care: ADL Retraining, Caregiver Training, Functional Mobility, Group Exercise/Act as Ind, UE Funct Exercise/Act Treatment Duration: May 16, 2019 Frequency: At least 5 of 7 days/Wk (IRF) Estimated Hrs Per Day: 1.5 hours per day Agreement: Yes Rehab Potential: Guarded Time/GCodes Start Time: 09:00 Stop Time: 10:15 Total Time Billed (hr/min): 75 Billed Treatment Time 1 visit-ADL 4 (65 min) EX 1 (10 min) GEOVANNI FLORES May 02, 2019 12:55
--- NOTE | 2019-05-02 13:23 | NUR ---
TPN: TPN continues to cycle over 16 hours daily providing 1750 kcal with 100 gm protein. Pt. eating small amounts of food. Goals; 25-30 kcal/kg daily =4822-7454 kcal, with 1.2-1.5gm/kg protein = 80-100 gm. continue TPN same.
--- NOTE | 2019-05-02 15:50 | NUR ---
"RD ASSESSMENT PMHx: HTN; hypercholesterolemia; GERD; DM; ileostomy; multiple colon perforations PT INTERACTION: Pt was awake and pleasant during nutrition follow-up. Note pt currently on TPN with a 16hr cycle providing 1750 kcal (23 kcal/kg) and 100 g Pro (1.3 g Pro/kg). Note pt is beginning to transition to oral intake. Pt states current appetite is poor. Note following calorie count: 04/30: 206 kcal (13.3%); 20 g Pro (21%) 05/01: 196 kcal (12.6%); 9 g Pro (10%) Given these amounts, pt is unable to meet needs orally at this time. Pt states no issued with n/v at this time, and states ostomy output is good. Pt states issues with dry mouth on 05/01. Note pt has wound, currently treated by Sunny VELASCO and Dr. Willett, per chart review. ABNORMAL NUTRITION-RELATED LAB VALUES LOW: CA 5.0; Pro 5.5; alb 1.7 HIGH: Cl 109; BUN 56; glu 176; bili 3.7; AST 67 Est. kcal needs: 2982-6064 kcal | 20-25 kcal/kg Est. Pro needs: 92-115 g Pro | 1.2-1.5 g Pro/kg (for wound healing) PES STATEMENT: Inadequate oral intake (NI-2.1) related to loss of appetite as evidenced by pt interview | avg PO intake 12% x2d Altered GI Function (NC-1.4) related to changes in GI tract structure and motility as evidenced by PMH of multiple colon perforations and ileostomy INTERVENTION: Continue with DYS1 Pureed diet. Pts with Short Bowel Syndrome (SBS) require 6-10 small meals per day, limited caffeine, lactose, and concentrated sugar intake. Research has said that it could take 1-2 years for the gut to fully adapt to the new structure and function. Given pt's current condition and situation, it is very unlikely pt will be able to return to full oral intake prior to discharge. Recommend continuing TPN with the 16 hr cycle, providing 1750 kcal (23 kcal/kg) and 100 g Pro (1.3 g Pro/kg). Will continue to follow and reassess as pt needs and status change. MONITOR/EVALUATE: PO Intake; Plan of Care; Hydration Status; Weight Status; Lab Values Ambrose Cuenca MS, RD, LD C: [phone]"
--- NOTE | 2019-05-02 16:52 | Cardiology Progress Note ---
Cardiology SOAP Progress Note Subjective: No cardiac complaint. However she's not feeling well. Objective: I&O/Vital Signs 05/02/19 05/02/19 05/02/19 05/02/19 05:59 08:07 08:18 09:00 Temp 37.4 Pulse 92 80 Resp 20 B/P (MAP) 154/65 (94) 124/62 (82) Pulse Ox 92 90 O2 Delivery Nasal Cannula High Flow N/C Nasal Cannula O2 Flow Rate 2.00 2.00 1.00 05/02/19 00:00 Intake Total 200 ml Output Total 1225 ml Balance -1025 ml Weight (Pounds): 160 Weight (Ounces): 0.0 Weight (Calculated Kilograms): [id number] Constitutional: AAO x 3, well-developed, well-nourished Respiratory: chest expansion is symmetric, chest is bilaterally symmetric, other Cardiovascular: regular rate-rhythm, S1 and S2 Gastrointestional: other Extremities: no lower extremity edema bilateral Neurologic/Psychiatric: no motor/sensory deficits, alert, normal mood/affect, oriented x 3, grossly intact Skin: normal color Results/Procedures: Labs Laboratory Tests 05/01/19 18:07: Glucometer 138H 05/02/19 00:33: Glucometer 173H 05/02/19 05:24: Glucometer 206H 05/02/19 11:01: Glucometer 144H A/P: Assessment/Dx: PAF CAD HTN HLP Plan: H/O multiple abdominal surgeries, had bowel resection and diverting ileostomy, last procedure was done on March 13, 2019, followed by surgical services, recent transfer from [place] on 04-18-19 Paroxysmal atrial fibrillation, maintained on Lopressor, Eliquis. Continue to monitor. Labile hypertension, blood pressure well controlled at this time, continue to monitor. H/O acute renal insufficiency, continue to monitor renal function. Coronary artery disease - Most recent cardiac catheterization done April 2018 revealed mild ectasia in the proximal LAD with mild disease in the mid LAD, small vessel disease distally, mild ectasia in the proximal circumflex artery and 40-50 percent stenosis in the mid right coronary artery, nonobstructive disease History of colon cancer, history of colon resection and colostomy in the past, followed by Dr. Branham Hyperlipidemia- continue to monitor lipids as outpatient. Carotid artery stenosis, bilateral nonobstructive disease per carotid duplex done December 2018, continue to monitor. History of thyroid nodules noted on ultrasound, followed by Dr. Branham and Dr. Simmons Diabetes mellitus Family history of coronary artery disease. Obstructive sleep apnea, intolerance to CPAP History of appendectomy, kidney stones, hysterectomy. Breast biopsy. Anemia, continue to monitor, management per Dr Hand Thank you for your consultation. Please call me if you have any questions. Martha Spear MD, FACP, FACC, FSCAI, FHRS, CCDS Interventional Cardiology Cardiac Electrophysiology Vascular Medicine and Endovascular Interventions Gumaro SPEAR MD May 02, 2019 16:51
[2019-05-02] MEDS: SODIUM ACETATE IV SCH ×11 (17:00)
[2019-05-02] MEDS: POTASSIUM ACETATE IV SCH ×11 (17:00)
[2019-05-02] MEDS: [UNRECOGNIZED DRUG - OTHER] IV SCH ×11 (17:00)
[2019-05-02 18:10] VITALS: BP 113/63
[2019-05-03] MEDS: inSUlin ASPART (NovoLOG) 1 UNIT/0.01 ML (CHARGE PER UNIT) SC SCH ×5 (00:20→23:18)
[2019-05-03 05:36] VITALS: BP 118/78
[2019-05-03] MEDS: CATHETER FLUSH 10 ML SYR IV SCH ×3 (05:41→20:14)
[2019-05-03] MEDS: ONDANSETRON 4 MG/2 ML (SDV) Z0FRAN IV PRN (08:03)
[2019-05-03] MEDS: FLUTICASONE NASAL SPRAY (FLONASE) 16 GM BTL NS SCH (08:58)
[2019-05-03] MEDS: OXYBUTYNIN (DITROPAN) 5 MG TAB PO SCH ×2 (08:59→20:11)
[2019-05-03] MEDS: APIXABAN 5 MG (ELIQUIS) TABLET PO SCH ×2 (08:59→20:11)
[2019-05-03] MEDS: HYDROcodone/APAP 5 MG/325 MG (LORTAB) TAB PO PRN (08:59)
[2019-05-03] MEDS: ENALAPRIL 5 MG (VASOTEC) TAB PEG SCH (08:59)
[2019-05-03] MEDS: SERTRALINE 50 MG (ZOLOFT) TABLET PO SCH (08:59)
[2019-05-03] MEDS: FAMOTIDINE 20 MG (PEPCID) TABLET PO SCH (08:59)
[2019-05-03] MEDS: meTOprolol TARTRATE 50 MG (LOPRESSOR) TAB PO SCH ×2 (09:00→20:11)
[2019-05-03] MEDS: NYSTATIN ORAL SUSP 5 ML UDC PO SCH ×4 (09:00→20:17)
[2019-05-03] MEDS: VISC LIDOCAINE/ANTACID/DIPHENHYDRAMINE 1:1:1 120 ML PO SCH ×12 (09:00→20:17)
--- NOTE | 2019-05-03 09:26 | NUR ---
MATT spoke with LELO Vizcarra regarding nutritional status, patient's realistic ability to wean from TPN within the next few days and concern of TPN causing worsening renal function. Zackery states it could take potentially 1-2years for patient's gut function to fully return, which could indicate the need for gas welder apprentice TPN. However, following a discussion with LELO Lui, he has recommended the initiation of trickle tube feeding with the goal of a consistent rate, if oral intake is not sufficient. This would allow the TPN to be dc'd, if tube feeding and continued oral intake remains tolerated. MATT has informed Dr. Hand and Dr. Willett of this recommendation. Addendum: 05/03/19 at 1619 by ROBINSON CHERRY SS 130p-MATT and Dr. Willett met with patient's family to discuss current barriers and discharge recommendations. Following lengthy discussion, Dr. Willett informed patient's family that patient will likely not be appropriate for an ileostomy reversal until nutritional status and strength have improved and that patient will likely need to remain on TPN for up to 4months and at that time, will be appropriate for surgery. While family was not happy with this information, they realize that the only option at this point is a SNF that can provide TPN and wound vac care. They have requested MATT to reach out to the [place], [place] area today to locate options for placement. They would like a few options provided to them by the end of the day today in order to tour facilities over the weekend. Thus far MATT has received denials due to lack of ability to provide TPN from the following: [facility] [place] [facility] [place], [facility], [facility]. [facility]. However, the following facilities will consider TPN and SW faxed referrals to: [facility] ([place], f-[phone]), [place] ([phone]), [facility] ([phone]), [facility] ([place], f-[phone])
[2019-05-03 09:38] LABS: BASOPHILS % (AUTO) 0 % (0-10); EOSINOPHILS # (AUTO) 0.1 10^3/uL (0.0-0.3); EOSINOPHILS % (AUTO) 1 % (0-10); HEMATOCRIT 30 % (35-52); HEMOGLOBIN 9.1 G/DL (11.5-16.0); LYMPHOCYTES # (AUTO) 0.6 X 10^3 (1.0-4.0); LYMPHOCYTES % (AUTO) 6 % (12-44); MEAN CORPUSCULAR HEMOGLOBIN 31 PG (25-34); MEAN CORPUSCULAR HGB CONC 30 G/DL (32-36); MEAN CORPUSCULAR VOLUME 101 FL (80-99); MEAN PLATELET VOLUME 12.3 FL (7.4-10.4); MONOCYTES # (AUTO) 1.2 X 10^3 (0.0-1.0); MONOCYTES % (AUTO) 11 % (0-12); NEUTROPHILS # (AUTO) 9.4 X 10^3 (1.8-7.8); NEUTROPHILS % (AUTO) 83 % (42-75); PLATELET COUNT 184 10^3/uL (130-400); RED CELL DISTRIBUTION WIDTH 16.3 % (10.0-14.5); WHITE BLOOD COUNT 11.3 10^3/uL (4.3-11.0)
--- NOTE | 2019-05-03 09:39 | PM&R Progress Note ---
Subjective HPI/CC On Admission Date Seen by Provider: May 03, 2019 Time Seen by Provider: 09:45 Subjective/Events-last exam Overall poor prognosis long-term. Had severe nausea when they turned her earlier today Confusion persists Hemoglobin improved at 9.1 Was eating a little more each day ~ 25% until yesterday and now she is refusing to eat even with breakfast at her bedside Wound vac managed by Sunny and Dr. Cohen and Dr Willett. Pt needs senior care at [place] but TPN limiting options locally and I did update director to proceed on with outside of locale who can manage TPN Bed ridden state noted and reluctant to get out of bed or even seated Pt overall has a very long recovery expected and prognosis is guarded at best. LFTs are elevated due to TPN cholestasis will monitor closely patient becoming more more jaundiced total bilirubin 4.5 today Patient appears more declined every day just very slowly Dr. Willett will talk to patient and daughter today Blood sugars reviewed, more controlled Cognition is an issue Conferred with RN Check meds and labs Reviewed therapy notes Long recovery expected if recovery realistic at all. Review of Systems General: Fatigue Gastrointestinal: Abdominal Pain Neurological: Confusion Objective Exam Vital Signs Vital Signs Date Time Temp Pulse Resp B/P (MAP) Pulse Ox O2 Delivery O2 Flow Rate FiO2 05/03/19 06:42 Nasal Cannula 2.00 05/03/19 05:36 36.8 68 20 118/78 (91) 95 Capillary Refill : Less Than 3 Seconds General Appearance: No Apparent Distress, Anxious, Chronically ill, Thin, Other (mcneil, jaundiced) HEENT: PERRL/EOMI; No Pale Conjunctivae (L), No Pale Conjunctivae (R), No Scleral Icterus (L), No Scleral Icterus (R) Neck: Non Tender, Supple Respiratory: Chest Non Tender, Lungs Clear, Normal Breath Sounds, No Accessory Muscle Use, No Respiratory Distress Cardiovascular: Regular Rate, Rhythm, No Edema Gastrointestinal: Normal Bowel Sounds, No Organomegaly, No Pulsatile Mass, Non Tender, Soft Back: Normal Inspection, No CVA Tenderness, No Vertebral Tenderness Extremity: No Calf Tenderness Neurologic/Psychiatric: Alert, Oriented x3, Normal Mood/Affect, wire tester II-XII Norm as Tested, Disoriented, Motor Weakness (generalized 3/5 all extremities) Skin: Normal Color, Warm/Dry Results/Procedures Lab Laboratory Tests 05/03/19 09:19 Patient resulted labs reviewed. FIM Transfers Therapy Code Descriptions/Definitions Functional [place] Measure: 0=Not Assessed/NA 4=Minimal Assistance 1=Total Assistance 5=Supervision or Setup 2=Maximal Assistance 6=Modified [place] 3=Moderate Assistance 7=Complete IndependenceSCALE: Activities may be completed with or without assistive devices. 0-Wffqaceqie-ransrnj completes the activity by him/herself with no assistance from a helper. 5-Set-up or Clean-up Assistance-helper sets up or cleans up; patient completes activity. [place] assists only prior to or following the activity. 4-Supervision or Touching Assistance-helper provides verbal cues and/or touching/steadying and/or contact guard assistance as patient completes activity. Assistance may be provided throughout the activity or intermittently. 3-Partial/Moderate Assistance-helper does LESS THAN HALF the effort. [place] lifts, holds or supports trunk or limbs, but provides less than half the effort. 2-Substantial/Maximal Assistance-helper does MORE THAN HALF the effort. [place] lifts or holds trunk or limbs and provides more than half the effort. 0-Bjigeltxz-ljzctl does ALL the effort. Patient does none of the effort to complete the activity. Or, the assistance of 2 or more helpers is required for the patient to complete the activity. If activity was not attempted, code reason: 7-Patient Refused. 9-Not Applicable-not attempted and the patient did not perform the activity before the current illness, exacerbation or injury. 10-Not Attempted due to Environmental Limitations-(lack of equipment, weather restraints, etc.). 88-Not Attempted due to Medical Conditions or Safety Concerns. Roll Left to Right (QC): 1 Sit to Lying (QC): 1 Sit to Stand (QC): 1 Chair/Ymt-hj-Iiyiz Xfer(QC): 1 Car Transfer (QC): 88 Gait Training Does the Patient Walk?: No and Walking Goal NOT indicated Walk 10 feet (QC): 88 Walk 50 ft with 2 Turns(QC): 88 Walk 150 ft (QC): 88 Walking 10ft/uneven surface-QC: 88 Wheelchair Training Does the Pt Use a Wheelchair?: Yes Wheel 50 ft with 2 turns (QC): 88 Wheel 150 ft (QC): 88 Type of Wheelchair: Manual Stair Training 1 Step (curb) (QC): 88 4 Steps (QC): 88 12 Steps (QC): 88 Balance Picking up an Object (QC): 88 ADL-Treatment Eating (QC): 88 Oral Hygiene (QC): 5 (Pt is able to use swab to cleanse mouth.) Shower/Bathe Self (QC): 1 Upper Body Dressing (QC): 2 Lower Body Dressing (QC): 1 On/Off Footwear (QC): 1 Toileting Hygiene (QC): 88 Toilet Transfer (QC): 88 Assessment/Plan Assessment and Plan Assess & Plan/Chief Complaint Assessment: 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 Diabetes mellitus Low albumin TPN required but weaning while increasing PO intake History of respiratory failure Elevated liver enzymes due to cholestasis from TPN 4.5 today Anemia completed iron infusions Confusion with undercurrent of dementia Decubitus ulcers Tachycardia consulted now resolved Plan: Inpatient rehab protocol TPN wean and increasing PO nutrition will start calorie count and fluid intake PO Wound care for pressure ulcers Wound vac managed by Sunny and surgeons Air bed Monitor labs and checking in morning Iron infusions Chey lift and bedridden state Appreciate Cardiology for tachycardia management Iron infusions completing Dr Willett will speak to family Refuses to eat yesterday and today 05/02/19 and participate in therapy remains limited due to bedridden status (1) Critical illness myopathy Status: Acute (2) Essential hypertension Status: Chronic (3) Abdominal pain (4) HLP (5) Headache Status: Acute (6) Perforated abdominal viscus Status: Acute (7) Postoperative abdominal pain Status: Acute (8) IDDM (insulin dependent diabetes mellitus) Status: Chronic YARON GALLAGHER DO May 03, 2019 09:38
--- NOTE | 2019-05-03 09:47 | NUR ---
"Spoke with Aide GUTIERREZ this morning about plan of care. As pt is starting to tolerate oral intake, pt may benefit from switching from TPN to EN. Est. kcal needs: 8282-8384 (20-25 kcal/kg) Est. Pro needs: 77-92 g Pro | 1.0-1.2 g Pro/kg Would recommend the following TF: Glucerna 1.5 at goal rate of 45ml/hr. Begin at 10ml/hr and increase by 10ml q8h as tolerated. At goal rate, provides 1620 kcal (21 kcal/kg); 89 g Pro (1.1 g Pro/kg); and 819 ml free water. Flush with 100 ml H2O q4h for hydration status. With flushes, provides 1419 ml free water. Will continue to follow and reassess as pt needs and status change. Ambrose Cuenca, MS, RD, LD [phone]"
[2019-05-03 09:59] LABS: ALANINE AMINOTRANSFERASE 54 U/L (0-55); ALBUMIN 1.8 GM/DL (3.2-4.5); ALKALINE PHOSPHATASE 159 U/L (40-136); BILIRUBIN,TOTAL 4.5 MG/DL (0.1-1.0); BUN/CREATININE RATIO 87; CALCIUM 8.4 MG/DL (8.5-10.1); CARBON DIOXIDE 28 MMOL/L (21-32); CHLORIDE 101 MMOL/L (98-107); CREATININE SERUM 0.77 MG/DL (0.60-1.30); GFR ESTIMATED > 60; GLUCOSE 208 MG/DL (70-105); POTASSIUM 3.9 MMOL/L (3.6-5.0); SODIUM 140 MMOL/L (135-145); TOTAL PROTEIN 6.1 GM/DL (6.4-8.2)
[2019-05-03 11:26] LABS: MAGNESIUM 2.1 MG/DL (1.6-2.4); PHOSPHORUS 4.2 MG/DL (2.3-4.7)
--- NOTE | 2019-05-03 11:55 | Occupational Ther Daily Note ---
OT Current Status-Daily Note Subjective Pt alert, lying in bed. Pt anxious about moving and sitting EOB. Pt requires encouragement to participate and decrease anxiety. No c/o pain at this time. Pt does voice pain with rolling side to side. Mental Status/Objective Patient Orientation: Person, Place, Time, Situation Attachments: Colostomy/Ileostomy, Drains (wound vac), IV ADL-Treatment Co-treatment with PT due to pt's fatigue, anxiety with movement, medical status, and need of skilled treatment x 2. PT focused on bed mobility, sitting balance, strengthening and transfers. OT focused on ADLs, functional sitting balance and UE strengthening. Mod A x2 supine <--> EOB then assist x2 to sit EOB for safety. Pt is progressing with sitting balance though activity tolerance con tinues to be minimal. Pt is able to complete upper body dressing with mod A and assist to stabilize self sitting EOB. Pt then was transferred to recliner with glenroy lift. Pt transported to therapy gym with recliner. Pt complete UE strengthening tasks to increase activity tolerance and strength for daily functional tasks. Pt then requested to go back to bed after session. Call light/phone in reach. Family present in room. All needs met in room. Call light/phone in reach. Therapy Code Descriptions/Definitions Functional [place] Measure: 0=Not Assessed/NA 4=Minimal Assistance 1=Total Assistance 5=Supervision or Setup 2=Maximal Assistance 6=Modified [place] 3=Moderate Assistance 7=Complete IndependenceSCALE: Activities may be completed with or without assistive devices. 8-Izrivbgbhr-fawcutf completes the activity by him/herself with no assistance from a helper. 5-Set-up or Clean-up Assistance-helper sets up or cleans up; patient completes activity. [place] assists only prior to or following the activity. 4-Supervision or Touching Assistance-helper provides verbal cues and/or touching/steadying and/or contact guard assistance as patient completes activity. Assistance may be provided throughout the activity or intermittently. 3-Partial/Moderate Assistance-helper does LESS THAN HALF the effort. [place] lifts, holds or supports trunk or limbs, but provides less than half the effort. 2-Substantial/Maximal Assistance-helper does MORE THAN HALF the effort. [place] lifts or holds trunk or limbs and provides more than half the effort. 4-Wgvsvpaww-lafjtb does ALL the effort. Patient does none of the effort to complete the activity. Or, the assistance of 2 or more helpers is required for the patient to complete the activity. If activity was not attempted, code reason: 7-Patient Refused. 9-Not Applicable-not attempted and the patient did not perform the activity before the current illness, exacerbation or injury. 10-Not Attempted due to Environmental Limitations-(lack of equipment, weather restraints, etc.). 88-Not Attempted due to Medical Conditions or Safety Concerns. Upper Body Dressing (QC): 2 OT Short Term Goals Short Term Goals Time Frame: May 02, 2019 Eatin Oral hygiene: 4 Toileting hygiene: 3 Shower/bathe self: 3 Upper body dressin Lower body dressin Putting on/taking off footwear: 3 OT Half-Way Goals Gliding Pilot Instructor Goals Time Frame: May 16, 2019 Eating (QC): 6 Oral Hygiene (QC): 6 Toileting Hygiene (QC): 5 Shower/Bathe Self (QC): 4 Upper Body Dressing (QC): 5 Lower Body Dressing (QC): 5 On/Off Footwear (QC): 5 Additional Goals: 1-Demonstrate ADL Tasks, 2-Verbalize Understanding, 3- ImproveStrength/José 1=Demonstrate adherence to instructed precautions during ADL tasks. 2=Patient will verbalize/demonstrate understanding of assistive devices/modifications for ADL. 3=Patient will improve strength/tolerance for activity to enable patient to perform ADL's. OT Education/Plan Problem List/Assessment Assessment: Decreased Activ Tolerance, Decreased UE Strength, Dependent Transfers, Impaired Bed Mobility, Impaired Coordination, Impaired Funct Balance, Impaired Self-Care Skills, Restricted Funct UE ROM Discharge Recommendations Plan/Recommendations: Continue POC Treatment Plan/Plan of Care Patient would benefit from OT for education, treatment and training to promote independence in ADL's, mobility, safety and/or upper extremity function for ADL's. Plan of Care: ADL Retraining, Caregiver Training, Functional Mobility, Group Exercise/Act as Ind, UE Funct Exercise/Act Treatment Duration: May 16, 2019 Frequency: At least 5 of 7 days/Wk (IRF) Estimated Hrs Per Day: 1.5 hours per day Agreement: Yes Rehab Potential: Guarded Time/GCodes Start Time: 10:20 Stop Time: 11:40 Total Time Billed (hr/min): 80 Billed Treatment Time 1 visit-ADL 3 (50 min) EX 2 (30 min) GEOVANNI FLORES May 03, 2019 11:55
--- NOTE | 2019-05-03 11:58 | Speech Therapy Daily Note ---
Speech Daily Progress Note Subjective Date Seen by Provider: May 03, 2019 Time Seen by Provider: 00:30 Patient was resting in bed, she had just received meds for nausea. She continues to not have much appetite. Objective Patient completed a series of fill in the blank sentences with 90% given 10% verbal cues. Assessment Assessment Current Status: Good Progress Treatment Plan Continue Plan of Care Speech Short Term Goals Short Term Goals Short Term Goals 1) Patient will complete memory tasks related to her daily needs at 90% or greater with minimal cues. 2) Patient will complete problem solving tasks related to her daily needs at 90% or greater with minimal cues. 3) Patient will complete safety awareness tasks related to her daily needs at 90% or greater with minimal cues. Speech Snf Goals Snf Goals Patient will improve cognitive-communication necessary for safety and daily living tasks with minimal assist. Speech-Plan Patient/Family Goals Patient/Family Goals: Patient plans on returning to her daughter's home when she is medically safe to do so. Treatment Plan Speech Therapy Treatment Plan: Continue Plan of Care Patient is progressing with oral intake . Treatment Duration: May 17, 2019 Frequency: 5 times per week Estimated Hrs Per Day: .5 hour per day Rehab Potential: Guarded Barriers to Learning: Patient's medical status Pt/Family Agrees to Plan: Yes Safety Risks/Education Teaching Recipient: Patient Teaching Methods: Demonstration, Discussion Response to Teaching: Verbalize Understanding, Return Demonstration Education Topics Provided: Continued safety and communication of wants/needs Time Speech Therapy Time In: 09:00 Speech Therapy Time Out: 09:30 Total Billed Time: 30 Billed Treatment Time 1ALFIE [address] ST May 03, 2019 11:58
--- NOTE | 2019-05-03 12:59 | Physical Therapy Daily Note ---
PT Daily Note-Current Subjective Pt agreeable to PT session, family present and also agreeable and providing encouragement to patient Pain Comment: pt grimacing on occasion but no pain rated Appearance Pt in bed upon arrival, nursing present. Co-treatment with OT due to pt's fatig ue, anxiety with movement, medical status, and need of skilled treatment x 2 skilled therapist assist. At end of session, pt in bed with call light and bedside table within reach, family present. Mental Status Attachments: Saline Lock, Colostomy/Ileostomy, Oxygen, Drains, Wing Catheter, Other-See Comments (wound vac) pt demo occasional confusion. Transfers SCALE: Activities may be completed with or without assistive devices. 0-Nnqkgzrrhd-jwabzdg completes the activity by him/herself with no assistance from a helper. 5-Set-up or Clean-up Assistance-helper sets up or cleans up; patient completes activity. [place] assists only prior to or following the activity. 4-Supervision or Touching Assistance-helper provides verbal cues and/or touching/steadying and/or contact guard assistance as patient completes activity. Assistance may be provided throughout the activity or intermittently. 3-Partial/Moderate Assistance-helper does LESS THAN HALF the effort. [place] lifts, holds or supports trunk or limbs, but provides less than half the effort. 2-Substantial/Maximal Assistance-helper does MORE THAN HALF the effort. [place] lifts or holds trunk or limbs and provides more than half the effort. 6-Qzvnzlvft-amezhn does ALL the effort. Patient does none of the effort to complete the activity. Or, the assistance of 2 or more helpers is required for the patient to complete the activity. If activity was not attempted, code reason: 7-Patient Refused. 9-Not Applicable-not attempted and the patient did not perform the activity before the current illness, exacerbation or injury. 10-Not Attempted due to Environmental Limitations-(lack of equipment, weather restraints, etc.). 88-Not Attempted due to Medical Conditions or Safety Concerns. Roll Left & Right (QC): 1 (Assist of 2 required, pt is able to provide some effort) Sit to Lying (QC): 1 Lying to Sitting/Side of Bed(Q: 1 Sit to Stand (QC): 88 Chair/Kxl-be-Kvjwl Xfer(QC): 1 (glenryo lift required) Toilet Transfer (QC): 88 Car Transfer (QC): 88 Gait Training Does the Patient Walk?: No and Walking Goal NOT indicated Wheelchair Training Does the Pt Use a Wheelchair?: No Stair Training 1 Step (curb) (QC): 88 4 Steps (QC): 88 12 Steps (QC): 88 Balance Picking up an Object (QC): 88 Exercises Supine Ex: Rolling, Heel Slides, Short Arc Quads, Resisted flex/ext Seated Therapy Exercises: Biceps, Ankle pumps, Long arc quads, Hip flexion, Kicking activity, Hamstring Curls Treatments Co-treatment with OT due to pt's fatigue, anxiety with movement, medical status, and need of skilled treatment x 2 therapists. PT focused on bed mobility, sitting balance, strengthening and transfers. OT focused on ADLs, functional sitting balance and UE strengthening. Mod A x2 supine <--> EOB then assist x2 to sit EOB for safety. Pt is progressing with sitting balance though activity tolerance continues to be minimal. Pt is able to complete upper body dressing with mod A and assist to stabilize self sitting EOB. Pt then was transferred to recliner with glenroy lift. Pt transported to therapy gym with recliner. Pt complete UE and LE strengthening tasks/ex's to increase activity tolerance and strength for daily functional tasks. Pt then requested and assisted by glenroy to go back to bed at end of session. Assessment Current Status: Fair Progress Pt is progressing with sitting balance though activity tolerance continues to be minimal. PT Short Term Goals Short Term Goals Time Frame: Apr 25, 2019 Roll Left & Right: 3 (mod A) Sit to lyin (modA) Lying to sitting on side of be: 3 (modA) Sit to stand: 3 (modA) Chair/opm-rb-ixney transfer: 3 (modA) PT National Park Ranger Goals National [place] Ranger Goals PT Fdc Goals Time Frame: May 09, 2019 Roll Left & Right (QC): 3 (Chet) Sit to Lying (QC): 3 (Chet) Lying-Sitting on Side/Bed(QC): 3 (Chet) Sit to Stand (QC): 3 (Chet) Chair/Bwd-wv-Aosgz Xfer(QC): 3 (Chet) Toilet Transfer (QC): 3 (Chet) Car Transfer (QC): 3 (Chet) Does the Patient Walk: No and Walking Goal NOT indicated Walk 10 feet (QC): 88 Walk 50ft with 2 Turns (QC): 88 Walk 150 ft (QC): 88 Walking 10ft on Uneven Surface: 88 1 Step (curb) (QC): 88 4 Steps (QC): 88 12 Steps (QC): 88 Picking up an Object (QC): 88 Does the Pt use WC or Scooter?: Yes Wheel 50 feet with 2 turns (QC: 4 (SBA) Type: Manual Wheel 150 feet: 4 (SBA) Type: Manual PT Plan Treatment/Plan Treatment Plan: Continue Plan of Care Treatment Plan: Bed Mobility, Concurrent Therapy, Education, Functional Activity José, Functional Strength, Group Therapy, Gait, Safety, Therapeutic Exercise, Transfers Treatment Duration: May 09, 2019 Frequency: At least 5 of 7 days/Wk (IRF) Estimated Hrs Per Day: 1.5 hours per day Patient and/or Family Agrees t: Yes Safety Risks/Education Patient Education: Transfer Techniques, Reviewed Precautions, Correct Positioning, Safety Issues Teaching Recipient: Patient, Family Teaching Methods: Demonstration, Discussion Response to Teaching: Verbalize Understanding, Return Demonstration, Reinf orcement Needed Time/GCodes Time In: 1020 Time Out: 1140 Total Billed Treatment Time: 80 Total Billed Treatment 1 visit- FA x50 min, EX x30 min RYLEE HOWE PTA May 03, 2019 12:59
--- NOTE | 2019-05-03 13:15 | NUR ---
Dr. Willett at bedside to access the mid abdominal wound. Wound vac changed without difficulty.
[2019-05-03] MEDS: fentaNYL INJECTION 100 MCG/2 ML AMP IV PRN (13:22)
[2019-05-03 15:33] VITALS: BP 102/63
--- NOTE | 2019-05-03 17:23 | Cardiology Progress Note ---
Cardiology SOAP Progress Note Subjective: No cardiac complaints. Objective: I&O/Vital Signs 05/03/19 05/03/19 05/03/19 05/03/19 05:36 06:42 08:20 15:33 Temp 36.8 36.2 Pulse 68 68 Resp 20 14 B/P (MAP) 118/78 (91) 102/63 (76) Pulse Ox 95 96 O2 Delivery Nasal Cannula Nasal Cannula Nasal Cannula Nasal Cannula O2 Flow Rate 68.00 2.00 2.00 2.00 05/03/19 00:00 Intake Total 200 ml Output Total 825 ml Balance -625 ml Weight (Pounds): 160 Weight (Ounces): 0.0 Weight (Calculated Kilograms): 72.766020 Constitutional: AAO x 3, well-developed, well-nourished Respiratory: chest expansion is symmetric, chest is bilaterally symmetric, other Cardiovascular: regular rate-rhythm, S1 and S2 Gastrointestional: other Extremities: no lower extremity edema bilateral Neurologic/Psychiatric: no motor/sensory deficits, alert, normal mood/affect, oriented x 3, grossly intact Skin: normal color Results/Procedures: Labs Laboratory Tests 05/02/19 18:02: Glucometer 140H 05/03/19 00:07: Glucometer 169H 05/03/19 05:31: Glucometer 216H 05/03/19 09:19: White Blood Count 11.3H, Red Blood Count 2.96L, Hemoglobin 9.1L, Hematocrit 30L, Mean Corpuscular Volume 101H, Mean Corpuscular Hemoglobin 31, Mean Corpuscular Hemoglobin Concent 30L, Red Cell Distribution Width 16.3H, Platelet Count 184, Mean Platelet Volume 12.3H, Neutrophils (%) (Auto) 83H, Lymphocytes (%) (Auto) 6L, Monocytes (%) (Auto) 11, Eosinophils (%) (Auto) 1, Basophils (%) (Auto) 0, Neutrophils # (Auto) 9.4H, Lymphocytes # (Auto) 0.6L, Monocytes # (Auto) 1.2H, Eosinophils # (Auto) 0.1, Basophils # (Auto) 0.0, Sodium Level 140, Potassium Level 3.9, Chloride Level 101, Carbon Dioxide Level 28, Anion Gap 11, Blood Urea Nitrogen 67H, Creatinine 0.77, Estimat Glomerular Filtration Rate > 60, BUN/Creatinine Ratio 87, Glucose Level 208H, Calcium Level 8.4L, Corrected Calcium 10.2H, Phosphorus Level 4.2, Magnesium Level 2.1, Total Bilirubin 4.5H, Aspartate Amino Transf (AST/SGOT) 78H, Alanine Aminotransferase (ALT/SGPT) 54, Alkaline Phosphatase 159H, Total Protein 6.1L, Albumin 1.8L 05/03/19 12:04: Glucometer 163H A/P: Assessment/Dx: PAF CAD HTN HLP Plan: H/O multiple abdominal surgeries, had bowel resection and diverting ileostomy, last procedure was done on March 13, 2019, followed by surgical services, recent transfer from [place] on 04-18-19 Paroxysmal atrial fibrillation, maintained on Lopressor, Eliquis. Continue to monitor. Labile hypertension, blood pressure well controlled at this time, continue to monitor. H/O acute renal insufficiency, continue to monitor renal function. Coronary artery disease - Most recent cardiac catheterization done April 2018 revealed mild ectasia in the proximal LAD with mild disease in the mid LAD, small vessel disease distally, mild ectasia in the proximal circumflex artery and 40-50 percent stenosis in the mid right coronary artery, nonobstructive disease History of colon cancer, history of colon resection and colostomy in the past, followed by Dr. Branham Hyperlipidemia- continue to monitor lipids as outpatient. Carotid artery stenosis, bilateral nonobstructive disease per carotid duplex done December 2018, continue to monitor. History of thyroid nodules noted on ultrasound, followed by Dr. Branham and Dr. Simmons Diabetes mellitus Family history of coronary artery disease. Obstructive sleep apnea, intolerance to CPAP History of appendectomy, kidney stones, hysterectomy. Breast biopsy. Anemia, continue to monitor, management per Dr Hand Thank you for your consultation. Please call me if you have any questions. Martha Spear MD, FACP, FACC, FSCAI, FHRS, CCDS Interventional Cardiology Cardiac Electrophysiology Vascular Medicine and Endovascular Interventions Gumaro SPEAR MD May 03, 2019 17:23
[2019-05-03] MEDS: POTASSIUM ACETATE IV SCH ×11 (17:47)
[2019-05-03] MEDS: [UNRECOGNIZED DRUG - OTHER] IV SCH ×11 (17:47)
[2019-05-03] MEDS: SODIUM ACETATE IV SCH ×11 (17:47)
[2019-05-04 05:02] VITALS: BP 121/63
[2019-05-04] MEDS: inSUlin ASPART (NovoLOG) 1 UNIT/0.01 ML (CHARGE PER UNIT) SC SCH ×3 (05:10→18:39)
[2019-05-04] MEDS: CATHETER FLUSH 10 ML SYR IV SCH ×3 (05:10→20:22)
--- NOTE | 2019-05-04 09:06 | Physical Therapy Progress Note ---
Therapy Progress Note x2 unsuccessful attempts with pt due to pt adamantly refusing session stating "I don't feel good, all over, I am not going to do anything" RYLEE HOWE PTA May 04, 2019 09:06
[2019-05-04] MEDS: ONDANSETRON 4 MG/2 ML (SDV) Z0FRAN IV PRN (09:30)
[2019-05-04] MEDS: NYSTATIN ORAL SUSP 5 ML UDC PO SCH ×4 (09:31→20:18)
[2019-05-04] MEDS: VISC LIDOCAINE/ANTACID/DIPHENHYDRAMINE 1:1:1 120 ML PO SCH ×12 (09:31→20:17)
[2019-05-04] MEDS: meTOprolol TARTRATE 50 MG (LOPRESSOR) TAB PO SCH ×2 (10:06→20:21)
[2019-05-04] MEDS: FAMOTIDINE 20 MG (PEPCID) TABLET PO SCH (10:06)
[2019-05-04] MEDS: HYDROcodone/APAP 5 MG/325 MG (LORTAB) TAB PO PRN (10:06)
[2019-05-04] MEDS: OXYBUTYNIN (DITROPAN) 5 MG TAB PO SCH ×2 (10:06→20:21)
[2019-05-04] MEDS: APIXABAN 5 MG (ELIQUIS) TABLET PO SCH ×2 (10:06→20:21)
[2019-05-04] MEDS: FLUTICASONE NASAL SPRAY (FLONASE) 16 GM BTL NS SCH (10:06)
[2019-05-04] MEDS: SERTRALINE 50 MG (ZOLOFT) TABLET PO SCH (10:07)
[2019-05-04] MEDS: ENALAPRIL 5 MG (VASOTEC) TAB PEG SCH (10:07)
--- NOTE | 2019-05-04 11:47 | Cardiology Progress Note ---
Cardiology SOAP Progress Note Subjective: No cardiac complaints. Objective: I&O/Vital Signs 05/04/19 05/04/19 05:02 09:08 Temp 37.2 Pulse 93 Resp 18 B/P (MAP) 121/63 (82) Pulse Ox 93 90 O2 Delivery Nasal Cannula Nasal Cannula O2 Flow Rate 2.00 2.00 05/04/19 00:00 Intake Total 120 ml Output Total 650 ml Balance -530 ml Weight (Pounds): 160 Weight (Ounces): 0.0 Weight (Calculated Kilograms): 72.695590 Constitutional: AAO x 3, well-developed, well-nourished Respiratory: chest expansion is symmetric, chest is bilaterally symmetric, other Cardiovascular: regular rate-rhythm, S1 and S2 Gastrointestional: other Extremities: no lower extremity edema bilateral Neurologic/Psychiatric: no motor/sensory deficits, alert, normal mood/affect, oriented x 3, grossly intact Skin: normal color Results/Procedures: Labs Laboratory Tests 05/03/19 12:04: Glucometer 163H 05/03/19 17:54: Glucometer 89 05/03/19 23:15: Glucometer 154H 05/04/19 05:08: Glucometer 188H A/P: Assessment/Dx: PAF CAD HTN HLP Plan: H/O multiple abdominal surgeries, had bowel resection and diverting ileostomy, last procedure was done on March 13, 2019, followed by surgical services, recent transfer from [place] on 04-18-19 Paroxysmal atrial fibrillation, maintained on Lopressor, Eliquis. Continue to monitor. Labile hypertension, blood pressure well controlled at this time, continue to monitor. H/O acute renal insufficiency, continue to monitor renal function. Coronary artery disease - Most recent cardiac catheterization done April 2018 revealed mild ectasia in the proximal LAD with mild disease in the mid LAD, small vessel disease distally, mild ectasia in the proximal circumflex artery and 40-50 percent stenosis in the mid right coronary artery, nonobstructive disease History of colon cancer, history of colon resection and colostomy in the past, followed by Dr. Branham Hyperlipidemia- continue to monitor lipids as outpatient. Carotid artery stenosis, bilateral nonobstructive disease per carotid duplex done December 2018, continue to monitor. History of thyroid nodules noted on ultrasound, followed by Dr. Branham and Dr. Simmons Diabetes mellitus Family history of coronary artery disease. Obstructive sleep apnea, intolerance to CPAP History of appendectomy, kidney stones, hysterectomy. Breast biopsy. Anemia, continue to monitor, management per Dr Hand Thank you for your consultation. Please call me if you have any questions. Martha Spear MD, FACP, FACC, FSCAI, FHRS, CCDS Interventional Cardiology Cardiac Electrophysiology Vascular Medicine and Endovascular Interventions Gumaro SPEAR MD May 04, 2019 11:47
--- NOTE | 2019-05-04 12:47 | PM&R Progress Note ---
Subjective HPI/CC On Admission Date Seen by Provider: May 04, 2019 Time Seen by Provider: 13:00 Subjective/Events-last exam Overall poor prognosis long-term. No nausea is reported today Confusion persists Trying to feed her in small amounts to get the calories in to be able to sustain herself to DC the TPN and facilitate disposition to residential facility locally Wound vac managed by Sunny and Dr. Cohen and Dr Willett. Wound VAC was changed yesterday and it appears to be healing pretty well Bowels are moving okay with the ileostomy Bed ridden state noted and reluctant to get out of bed or even seated Pt overall has a very long recovery expected and prognosis is guarded at best. LFTs are elevated due to TPN cholestasis will monitor closely patient becoming more more jaundiced total bilirubin 4.5 yesterday Patient appears more declined every day just very slowly Dr. Willett talked to patient and daughter yesterday Blood sugars reviewed, more controlled Cognition is an issue Conferred with RN Check meds and labs Reviewed therapy notes Long recovery expected if recovery realistic at all. Review of Systems General: Fatigue Gastrointestinal: Abdominal Pain Neurological: Confusion Objective Exam Vital Signs Vital Signs Date Time Temp Pulse Resp B/P (MAP) Pulse Ox O2 Delivery O2 Flow Rate FiO2 05/04/19 09:08 90 Nasal Cannula 2.00 05/04/19 05:02 37.2 93 18 121/63 (82) Capillary Refill : Less Than 3 Seconds General Appearance: No Apparent Distress, Anxious, Chronically ill, Thin, Other HEENT: PERRL/EOMI Neck: Non Tender, Supple Respiratory: Chest Non Tender, Lungs Clear, Normal Breath Sounds, No Accessory Muscle Use, No Respiratory Distress Cardiovascular: Regular Rate, Rhythm, No Edema Gastrointestinal: Normal Bowel Sounds, No Organomegaly, No Pulsatile Mass, Non Tender, Soft Back: Normal Inspection, No CVA Tenderness, No Vertebral Tenderness Extremity: No Calf Tenderness Neurologic/Psychiatric: Alert, Oriented x3, Normal Mood/Affect, intelligence specialist II-XII Norm as Tested, Disoriented, Motor Weakness Skin: Normal Color, Warm/Dry Results/Procedures Lab Patient resulted labs reviewed. FIM Transfers Therapy Code Descriptions/Definitions Functional [place] Measure: 0=Not Assessed/NA 4=Minimal Assistance 1=Total Assistance 5=Supervision or Setup 2=Maximal Assistance 6=Modified [place] 3=Moderate Assistance 7=Complete IndependenceSCALE: Activities may be completed with or without assistive devices. 5-Bspkohidjt-nsvrsph completes the activity by him/herself with no assistance from a helper. 5-Set-up or Clean-up Assistance-helper sets up or cleans up; patient completes activity. [place] assists only prior to or following the activity. 4-Supervision or Touching Assistance-helper provides verbal cues and/or touching/steadying and/or contact guard assistance as patient completes activity. Assistance may be provided throughout the activity or intermittently. 3-Partial/Moderate Assistance-helper does LESS THAN HALF the effort. [place] lifts, holds or supports trunk or limbs, but provides less than half the effort. 2-Substantial/Maximal Assistance-helper does MORE THAN HALF the effort. [place] lifts or holds trunk or limbs and provides more than half the effort. 7-Ajpwettsn-kwxdtt does ALL the effort. Patient does none of the effort to complete the activity. Or, the assistance of 2 or more helpers is required for the patient to complete the activity. If activity was not attempted, code reason: 7-Patient Refused. 9-Not Applicable-not attempted and the patient did not perform the activity before the current illness, exacerbation or injury. 10-Not Attempted due to Environmental Limitations-(lack of equipment, weather restraints, etc.). 88-Not Attempted due to Medical Conditions or Safety Concerns. Roll Left to Right (QC): 1 (Assist of 2 required, pt is able to provide some effort) Sit to Lying (QC): 1 Sit to Stand (QC): 88 Chair/Wqv-ua-Hwoto Xfer(QC): 1 (glenroy lift required) Car Transfer (QC): 88 Gait Training Does the Patient Walk?: No and Walking Goal NOT indicated Walk 10 feet (QC): 88 Walk 50 ft with 2 Turns(QC): 88 Walk 150 ft (QC): 88 Walking 10ft/uneven surface-QC: 88 Wheelchair Training Does the Pt Use a Wheelchair?: No Wheel 50 ft with 2 turns (QC): 88 Wheel 150 ft (QC): 88 Type of Wheelchair: Manual Stair Training 1 Step (curb) (QC): 88 4 Steps (QC): 88 12 Steps (QC): 88 Balance Picking up an Object (QC): 88 ADL-Treatment Eating (QC): 88 Oral Hygiene (QC): 5 (Pt is able to use swab to cleanse mouth.) Shower/Bathe Self (QC): 1 Upper Body Dressing (QC): 2 Lower Body Dressing (QC): 1 On/Off Footwear (QC): 1 Toileting Hygiene (QC): 88 Toilet Transfer (QC): 88 Assessment/Plan Assessment and Plan Assess & Plan/Chief Complaint Assessment: 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 Diabetes mellitus Low albumin TPN required but weaning while increasing PO intake and initiated a calorie count 2 days ago History of respiratory failure Elevated liver enzymes due to cholestasis from TPN 4.5 yesterday Anemia completed iron infusions Confusion with undercurrent of dementia Decubitus ulcers Tachycardia consulted now resolved Plan: Inpatient rehab protocol TPN wean and increasing PO nutrition will start calorie count and fluid intake PO Wound care for pressure ulcers Wound vac managed by Sunny and surgeons Air bed Monitor labs and checking in morning Iron infusions [place] lift and bedridden state Appreciate Cardiology for tachycardia management Iron infusions completing Dr Willett spoke to family Refuses to eat most of the time (1) Critical illness myopathy Status: Acute (2) Essential hypertension Status: Chronic (3) Abdominal pain (4) HLP (5) Headache Status: Acute (6) Perforated abdominal viscus Status: Acute (7) Postoperative abdominal pain Status: Acute (8) IDDM (insulin dependent diabetes mellitus) Status: Chronic YARON GALLAGHER DO May 04, 2019 12:46
[2019-05-04] MEDS: POTASSIUM ACETATE IV SCH ×11 (17:18)
[2019-05-04] MEDS: SODIUM ACETATE IV SCH ×11 (17:18)
[2019-05-04] MEDS: [UNRECOGNIZED DRUG - OTHER] IV SCH ×11 (17:18)
[2019-05-04 18:48] VITALS: BP 103/60
[2019-05-05] MEDS: inSUlin ASPART (NovoLOG) 1 UNIT/0.01 ML (CHARGE PER UNIT) SC SCH ×4 (00:29→18:39)
[2019-05-05] MEDS: CATHETER FLUSH 10 ML SYR IV SCH ×3 (05:24→20:20)
[2019-05-05 05:56] VITALS: BP 122/57
[2019-05-05] MEDS: FENTANYL PATCH REMOVAL TP SCH (10:11)
[2019-05-05] MEDS: fentaNYL PATCH 25 MCG (DURAGESIC) TD SCH (10:12)
[2019-05-05] MEDS: FLUTICASONE NASAL SPRAY (FLONASE) 16 GM BTL NS SCH (10:31)
[2019-05-05] MEDS: SERTRALINE 50 MG (ZOLOFT) TABLET PO SCH (10:32)
[2019-05-05] MEDS: FAMOTIDINE 20 MG (PEPCID) TABLET PO SCH (10:32)
[2019-05-05] MEDS: APIXABAN 5 MG (ELIQUIS) TABLET PO SCH ×2 (10:32→20:20)
[2019-05-05] MEDS: meTOprolol TARTRATE 50 MG (LOPRESSOR) TAB PO SCH ×2 (10:32→20:20)
[2019-05-05] MEDS: NYSTATIN ORAL SUSP 5 ML UDC PO SCH ×4 (10:33→20:20)
[2019-05-05] MEDS: VISC LIDOCAINE/ANTACID/DIPHENHYDRAMINE 1:1:1 120 ML PO SCH ×12 (10:33→20:24)
[2019-05-05] MEDS: OXYBUTYNIN (DITROPAN) 5 MG TAB PO SCH ×2 (10:33→20:20)
[2019-05-05] MEDS: ENALAPRIL 5 MG (VASOTEC) TAB PEG SCH (10:33)
[2019-05-05] MEDS: ONDANSETRON 4 MG/2 ML (SDV) Z0FRAN IV PRN ×2 (13:19→17:49)
--- NOTE | 2019-05-05 14:35 | Cardiology Progress Note ---
Cardiology SOAP Progress Note Subjective: No cardiac complaints. Objective: I&O/Vital Signs 05/05/19 05:56 Temp 37.2 Pulse 82 Resp 20 B/P (MAP) 122/57 (78) Pulse Ox 93 O2 Delivery High Flow N/C O2 Flow Rate 2.00 05/05/19 00:00 Intake Total 100 ml Output Total 850 ml Balance -750 ml Weight (Pounds): 160 Weight (Ounces): 0.0 Weight (Calculated Kilograms): [id number] Constitutional: AAO x 3, well-developed, well-nourished Respiratory: chest expansion is symmetric, chest is bilaterally symmetric, other Cardiovascular: regular rate-rhythm, S1 and S2 Gastrointestional: other Extremities: no lower extremity edema bilateral Neurologic/Psychiatric: no motor/sensory deficits, alert, normal mood/affect, oriented x 3, grossly intact Skin: normal color Results/Procedures: Labs Laboratory Tests 05/04/19 17:54: Glucometer 101 05/05/19 00:24: Glucometer 152H 05/05/19 05:26: Glucometer 162H 05/05/19 11:33: Glucometer 154H A/P: Assessment/Dx: PAF CAD HTN HLP Plan: H/O multiple abdominal surgeries, had bowel resection and diverting ileostomy, last procedure was done on March 13, 2019, followed by surgical services, recent transfer from [place] on 04-18-19 Paroxysmal atrial fibrillation, maintained on Lopressor, Eliquis. Continue to monitor. Labile hypertension, blood pressure well controlled at this time, continue to monitor. H/O acute renal insufficiency, continue to monitor renal function. Coronary artery disease - Most recent cardiac catheterization done April 2018 revealed mild ectasia in the proximal LAD with mild disease in the mid LAD, small vessel disease distally, mild ectasia in the proximal circumflex artery and 40-50 percent stenosis in the mid right coronary artery, nonobstructive disease History of colon cancer, history of colon resection and colostomy in the past, followed by Dr. Branham Hyperlipidemia- continue to monitor lipids as outpatient. Carotid artery stenosis, bilateral nonobstructive disease per carotid duplex done December 2018, continue to monitor. History of thyroid nodules noted on ultrasound, followed by Dr. Branham and Dr. Simmons Diabetes mellitus Family history of coronary artery disease. Obstructive sleep apnea, intolerance to CPAP History of appendectomy, kidney stones, hysterectomy. Breast biopsy. Anemia, continue to monitor, management per Dr Hand Thank you for your consultation. Please call me if you have any questions. Martha Spear MD, FACP, FACC, FSCAI, FHRS, CCDS Interventional Cardiology Cardiac Electrophysiology Vascular Medicine and Endovascular Interventions Gumaro SPEAR MD May 05, 2019 14:35
--- NOTE | 2019-05-05 14:49 | PM&R Progress Note ---
Subjective HPI/CC On Admission Date Seen by Provider: May 05, 2019 Time Seen by Provider: 11:45 Subjective/Events-last exam Overall poor prognosis long-term. Nausea is reported today and Zofran given Confusion persists with lucidity in between Refusing to eat, calorie count in place Wound vac managed by Sunny and Dr. Cohen and Dr Willett. Wound VAC was changed Monday and it appears to be healing pretty well Bowels are moving okay with the ileostomy Bed ridden state noted and reluctant to get out of bed or even seated Pt overall has a very long recovery expected and prognosis is guarded at best. LFTs are elevated due to TPN cholestasis will monitor closely patient becoming more more jaundiced total bilirubin 4.5 yesterday Patient appears more declined and end stage Dr. Willett talked to patient and daughter Monday Blood sugars reviewed, more controlled Cognition is an issue Conferred with RN Check meds and labs Reviewed therapy notes Long recovery expected if recovery realistic at all. Review of Systems General: Fatigue Gastrointestinal: Abdominal Pain Neurological: Confusion Objective Exam Vital Signs Vital Signs Date Time Temp Pulse Resp B/P (MAP) Pulse Ox O2 Delivery O2 Flow Rate FiO2 05/05/19 08:10 Nasal Cannula 2.00 05/05/19 05:56 37.2 82 20 122/57 (78) 93 Capillary Refill : Less Than 3 Seconds General Appearance: No Apparent Distress, Anxious, Chronically ill, Thin, Other HEENT: PERRL/EOMI Neck: Non Tender, Supple Respiratory: Chest Non Tender, Lungs Clear, Normal Breath Sounds, No Accessory Muscle Use, No Respiratory Distress Cardiovascular: Regular Rate, Rhythm, No Edema Gastrointestinal: Normal Bowel Sounds, No Organomegaly, No Pulsatile Mass, Non Tender, Soft Back: Normal Inspection, No CVA Tenderness, No Vertebral Tenderness Extremity: No Calf Tenderness Neurologic/Psychiatric: Alert, Oriented x3, Normal Mood/Affect, formula room worker II-XII Norm as Tested, Disoriented, Motor Weakness Skin: Normal Color, Warm/Dry Results/Procedures Lab Patient resulted labs reviewed. FIM Transfers Therapy Code Descriptions/Definitions Functional [place] Measure: 0=Not Assessed/NA 4=Minimal Assistance 1=Total Assistance 5=Supervision or Setup 2=Maximal Assistance 6=Modified [place] 3=Moderate Assistance 7=Complete IndependenceSCALE: Activities may be completed with or without assistive devices. 9-Mwxdgkdxsh-tcdmkgf completes the activity by him/herself with no assistance from a helper. 5-Set-up or Clean-up Assistance-helper sets up or cleans up; patient completes activity. [place] assists only prior to or following the activity. 4-Supervision or Touching Assistance-helper provides verbal cues and/or touching/steadying and/or contact guard assistance as patient completes activity. Assistance may be provided throughout the activity or intermittently. 3-Partial/Moderate Assistance-helper does LESS THAN HALF the effort. [place] lifts, holds or supports trunk or limbs, but provides less than half the effort. 2-Substantial/Maximal Assistance-helper does MORE THAN HALF the effort. [place] lifts or holds trunk or limbs and provides more than half the effort. 5-Kjohwmcwo-xabfkt does ALL the effort. Patient does none of the effort to complete the activity. Or, the assistance of 2 or more helpers is required for the patient to complete the activity. If activity was not attempted, code reason: 7-Patient Refused. 9-Not Applicable-not attempted and the patient did not perform the activity before the current illness, exacerbation or injury. 10-Not Attempted due to Environmental Limitations-(lack of equipment, weather restraints, etc.). 88-Not Attempted due to Medical Conditions or Safety Concerns. Roll Left to Right (QC): 1 (Assist of 2 required, pt is able to provide some effort) Sit to Lying (QC): 1 Sit to Stand (QC): 88 Chair/Txu-ql-Ybyso Xfer(QC): 1 (gl[place] lift required) Car Transfer (QC): 88 Gait Training Does the Patient Walk?: No and Walking Goal NOT indicated Walk 10 feet (QC): 88 Walk 50 ft with 2 Turns(QC): 88 Walk 150 ft (QC): 88 Walking 10ft/uneven surface-QC: 88 Wheelchair Training Does the Pt Use a Wheelchair?: No Wheel 50 ft with 2 turns (QC): 88 Wheel 150 ft (QC): 88 Type of Wheelchair: Manual Stair Training 1 Step (curb) (QC): 88 4 Steps (QC): 88 12 Steps (QC): 88 Balance Picking up an Object (QC): 88 ADL-Treatment Eating (QC): 88 Oral Hygiene (QC): 5 (Pt is able to use swab to cleanse mouth.) Shower/Bathe Self (QC): 1 Upper Body Dressing (QC): 2 Lower Body Dressing (QC): 1 On/Off Footwear (QC): 1 Toileting Hygiene (QC): 88 Toilet Transfer (QC): 88 Assessment/Plan Assessment and Plan Assess & Plan/Chief Complaint Assessment: 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 Diabetes mellitus Low albumin TPN required but weaning while increasing PO intake and initiated a calorie count 3 days ago which now she is refusing to eat History of respiratory failure Elevated liver enzymes due to cholestasis from TPN 4.5 Monday Anemia completed iron infusions Confusion with undercurrent of dementia Decubitus ulcers Tachycardia consulted now resolved Plan: Inpatient rehab protocol TPN wean and increasing PO nutrition will start calorie count and fluid intake PO but refusing to eat now so likely this will be unsuccessful Wound care for pressure ulcers Wound vac managed by Sunny and surgeons Air bed Monitor labs and checking in morning Iron infusions [place] lift and bedridden state Appreciate Cardiology for tachycardia management Iron infusions completing Dr Willett spoke to family Refuses to eat now (1) Critical illness myopathy Status: Acute (2) Essential hypertension Status: Chronic (3) Abdominal pain (4) HLP (5) Headache Status: Acute (6) Perforated abdominal viscus Status: Acute (7) Postoperative abdominal pain Status: Acute (8) IDDM (insulin dependent diabetes mellitus) Status: Chronic YARON GALLAGHER DO May 05, 2019 14:48
[2019-05-05] MEDS: SODIUM ACETATE IV SCH ×11 (17:57)
[2019-05-05] MEDS: POTASSIUM ACETATE IV SCH ×11 (17:57)
[2019-05-05] MEDS: [UNRECOGNIZED DRUG - OTHER] IV SCH ×11 (17:57)
[2019-05-05 18:00] VITALS: BP 106/61
[2019-05-06] MEDS: inSUlin ASPART (NovoLOG) 1 UNIT/0.01 ML (CHARGE PER UNIT) SC SCH ×4 (00:37→18:00)
[2019-05-06 05:10] VITALS: BP 136/64
[2019-05-06] MEDS: CATHETER FLUSH 10 ML SYR IV PRN (05:30)
[2019-05-06] MEDS: CATHETER FLUSH 10 ML SYR IV SCH ×3 (05:30→20:38)
[2019-05-06 05:58] LABS: BASOPHILS % (AUTO) 0 % (0-10); EOSINOPHILS # (AUTO) 0.2 10^3/uL (0.0-0.3); EOSINOPHILS % (AUTO) 1 % (0-10); HEMATOCRIT 28 % (35-52); HEMOGLOBIN 8.5 G/DL (11.5-16.0); LYMPHOCYTES # (AUTO) 0.9 X 10^3 (1.0-4.0); LYMPHOCYTES % (AUTO) 8 % (12-44); MEAN CORPUSCULAR HEMOGLOBIN 31 PG (25-34); MEAN CORPUSCULAR HGB CONC 30 G/DL (32-36); MEAN CORPUSCULAR VOLUME 102 FL (80-99); MEAN PLATELET VOLUME 12.8 FL (7.4-10.4); MONOCYTES # (AUTO) 1.2 X 10^3 (0.0-1.0); MONOCYTES % (AUTO) 10 % (0-12); NEUTROPHILS # (AUTO) 9.9 X 10^3 (1.8-7.8); NEUTROPHILS % (AUTO) 81 % (42-75); PLATELET COUNT 183 10^3/uL (130-400); RED CELL DISTRIBUTION WIDTH 15.9 % (10.0-14.5); WHITE BLOOD COUNT 12.3 10^3/uL (4.3-11.0)
[2019-05-06 06:15] LABS: ALBUMIN 1.7 GM/DL (3.2-4.5); BILIRUBIN,TOTAL 4.2 MG/DL (0.1-1.0); CALCIUM 8.2 MG/DL (8.5-10.1); CREATININE SERUM 1.02 MG/DL (0.60-1.30); POTASSIUM 3.9 MMOL/L (3.6-5.0)
[2019-05-06 08:35] VITALS: BP 130/64
[2019-05-06] MEDS: NYSTATIN ORAL SUSP 5 ML UDC PO SCH ×4 (08:36→20:38)
[2019-05-06] MEDS: FAMOTIDINE 20 MG (PEPCID) TABLET PO SCH (08:36)
[2019-05-06] MEDS: meTOprolol TARTRATE 50 MG (LOPRESSOR) TAB PO SCH ×2 (08:37→20:38)
[2019-05-06] MEDS: OXYBUTYNIN (DITROPAN) 5 MG TAB PO SCH ×2 (08:37→20:38)
[2019-05-06] MEDS: SERTRALINE 50 MG (ZOLOFT) TABLET PO SCH (08:37)
[2019-05-06] MEDS: APIXABAN 5 MG (ELIQUIS) TABLET PO SCH ×2 (08:37→20:38)
[2019-05-06] MEDS: ENALAPRIL 5 MG (VASOTEC) TAB PEG SCH (08:37)
[2019-05-06] MEDS: VISC LIDOCAINE/ANTACID/DIPHENHYDRAMINE 1:1:1 120 ML PO SCH ×12 (08:38→20:39)
[2019-05-06] MEDS: FLUTICASONE NASAL SPRAY (FLONASE) 16 GM BTL NS SCH (08:38)
--- NOTE | 2019-05-06 08:43 | NUR ---
"CALORIE COUNT 05/04/19: 323 kcal (21% of needs) | 22 g Pro (29% of needs) 05/05/19: 103 kcal (7% of needs) | 9 g Pro (12% of needs) ASSESSMENT: Pt's PO intake still very poor. Recommend continuation of TPN at this time, providing 1550 kcal (20 kcal/kg) and 77 g Pro (1.0 g Pro/kg). Will continue to follow and reassess as pt needs and status change. Ambrose Cuenca, MS, RD, LD Ext. 133"
--- NOTE | 2019-05-06 11:01 | PM&R Progress Note ---
Subjective HPI/CC On Admission Date Seen by Provider: May 06, 2019 Time Seen by Provider: 09:00 Subjective/Events-last exam Overall poor prognosis long-term. Nausea is reported again today and Zofran given Confusion persists with lucidity in between Wound vac managed by Sunny and Dr. Cohen and Dr Willett. Wound VAC was changed Monday and it appears to be healing pretty well Bowels are moving okay with the ileostomy Bed ridden state noted and reluctant to get out of bed or even seated Increased confusion at times Now requiring 3 liters of O2 Minimal bites of food Ileostomy functioning well Very difficult to manage Conferred with RN Check meds and labs Reviewed therapy notes Long recovery expected if recovery realistic at all. Review of Systems General: Fatigue Gastrointestinal: Abdominal Pain Neurological: Confusion Objective Exam Vital Signs Vital Signs Date Time Temp Pulse Resp B/P (MAP) Pulse Ox O2 Delivery O2 Flow Rate FiO2 05/06/19 20:42 80 123/63 (83) 05/06/19 18:00 92 Nasal Cannula 3.00 05/06/19 15:48 36.6 16 Capillary Refill : Less Than 3 Seconds General Appearance: No Apparent Distress, Anxious, Chronically ill, Thin, Other HEENT: PERRL/EOMI Neck: Non Tender, Supple Respiratory: Chest Non Tender, Lungs Clear, Normal Breath Sounds, No Accessory Muscle Use, No Respiratory Distress Cardiovascular: Regular Rate, Rhythm, No Edema Gastrointestinal: Normal Bowel Sounds, No Organomegaly, No Pulsatile Mass, Non Tender, Soft Back: Normal Inspection, No CVA Tenderness, No Vertebral Tenderness Extremity: No Calf Tenderness Neurologic/Psychiatric: Alert, Oriented x3, Normal Mood/Affect, vice president research II-XII Norm as Tested, Disoriented, Motor Weakness Skin: Normal Color, Warm/Dry Results/Procedures Lab Laboratory Tests 05/06/19 05:30 Patient resulted labs reviewed. FIM Transfers Therapy Code Descriptions/Definitions Functional [place] Measure: 0=Not Assessed/NA 4=Minimal Assistance 1=Total Assistance 5=Supervision or Setup 2=Maximal Assistance 6=Modified [place] 3=Moderate Assistance 7=Complete IndependenceSCALE: Activities may be completed with or without assistive devices. 9-Kblsmlkzfy-qomxjgt completes the activity by him/herself with no assistance from a helper. 5-Set-up or Clean-up Assistance-helper sets up or cleans up; patient completes activity. [place] assists only prior to or following the activity. 4-Supervision or Touching Assistance-helper provides verbal cues and/or touching/steadying and/or contact guard assistance as patient completes activity. Assistance may be provided throughout the activity or intermittently. 3-Partial/Moderate Assistance-helper does LESS THAN HALF the effort. [place] li fts, holds or supports trunk or limbs, but provides less than half the effort. 2-Substantial/Maximal Assistance-helper does MORE THAN HALF the effort. [place] lifts or holds trunk or limbs and provides more than half the effort. 1-Uggtopbfq-fbtayv does ALL the effort. Patient does none of the effort to complete the activity. Or, the assistance of 2 or more helpers is required for the patient to complete the activity. If activity was not attempted, code reason: 7-Patient Refused. 9-Not Applicable-not attempted and the patient did not perform the activity before the current illness, exacerbation or injury. 10-Not Attempted due to Environmental Limitations-(lack of equipment, weather restraints, etc.). 88-Not Attempted due to Medical Conditions or Safety Concerns. Roll Left to Right (QC): 1 (Assist of 2 required, pt is able to provide some effort) Sit to Lying (QC): 1 Sit to Stand (QC): 88 Chair/Ise-sh-Yfixl Xfer(QC): 1 (gl[place] lift required) Car Transfer (QC): 88 Gait Training Does the Patient Walk?: No and Walking Goal NOT indicated Walk 10 feet (QC): 88 Walk 50 ft with 2 Turns(QC): 88 Walk 150 ft (QC): 88 Walking 10ft/uneven surface-QC: 88 Wheelchair Training Does the Pt Use a Wheelchair?: No Wheel 50 ft with 2 turns (QC): 88 Wheel 150 ft (QC): 88 Type of Wheelchair: Manual Stair Training 1 Step (curb) (QC): 88 4 Steps (QC): 88 12 Steps (QC): 88 Balance Picking up an Object (QC): 88 ADL-Treatment Eating (QC): 88 Oral Hygiene (QC): 5 (Pt is able to use swab to cleanse mouth.) Shower/Bathe Self (QC): 1 Upper Body Dressing (QC): 2 Lower Body Dressing (QC): 1 On/Off Footwear (QC): 1 Toileting Hygiene (QC): 88 Toilet Transfer (QC): 88 Assessment/Plan Assessment and Plan Assess & Plan/Chief Complaint Assessment: 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 Diabetes mellitus Low albumin TPN required but weaning while increasing PO intake and initiated a calorie count 3 days ago which now she is refusing to eat History of respiratory failure Elevated liver enzymes due to cholestasis from TPN 4.5 Monday Anemia completed iron infusions Confusion with undercurrent of dementia Decubitus ulcers Tachycardia consulted now resolved Plan: Inpatient rehab protocol TPN wean and increasing PO nutrition will start calorie count and fluid intake PO but refusing to eat now so likely this will be unsuccessful Wound care for pressure ulcers Wound vac managed by Sunny and surgeons Air bed Monitor labs and checking in morning Iron infusions [place] lift and bedridden state Appreciate Cardiology for tachycardia management Iron infusions completing Dr Willett spoke to family Refuses to eat now (1) Critical illness myopathy Status: Acute (2) Essential hypertension Status: Chronic (3) Abdominal pain (4) HLP (5) Headache Status: Acute (6) Perforated abdominal viscus Status: Acute (7) Postoperative abdominal pain Status: Acute (8) IDDM (insulin dependent diabetes mellitus) Status: Chronic YARON GALLAGHER DO May 06, 2019 11:00
--- NOTE | 2019-05-06 11:05 | NUR ---
Pastoral care visit.
--- NOTE | 2019-05-06 11:47 | Speech Therapy Daily Note ---
Speech Daily Progress Note Subjective Date Seen by Provider: May 06, 2019 Time Seen by Provider: 00:30 Patient continues to get nauseated with any intake. Her wound vac was noted to have significant amount of output. Objective Patient demo answering simple questions with 90% accuracy given 25% verbal cues and/or repetitions. Assessment Assessment Current Status: Good Progress Treatment Plan Continue Plan of Care Speech Short Term Goals Short Term Goals Short Term Goals 1) Patient will complete memory tasks related to her daily needs at 90% or greater with minimal cues. 2) Patient will complete problem solving tasks related to her daily needs at 90% or greater with minimal cues. 3) Patient will complete safety awareness tasks related to her daily needs at 90% or greater with minimal cues. Speech Nursing Home Goals Nursing Home Goals Patient will improve cognitive-communication necessary for safety and daily living tasks with minimal assist. Speech-Plan Patient/Family Goals Patient/Family Goals: Patient's family and rehab team are searching for a discharge location for her to go to for further recovery. Treatment Plan Speech Therapy Treatment Plan: Continue Plan of Care Patient c/o pain and not feeling well on a daily basis. Treatment Duration: May 17, 2019 Frequency: 5 times per week Estimated Hrs Per Day: .5 hour per day Rehab Potential: Guarded Barriers to Learning: Patient's medical status Pt/Family Agrees to Plan: Yes Safety Risks/Education Teaching Recipient: Patient Teaching Methods: Demonstration, Discussion Response to Teaching: Verbalize Understanding, Return Demonstration Education Topics Provided: Safety within her room and communication of wants/needs Time Speech Therapy Time In: 08:30 Speech Therapy Time Out: 09:00 Total Billed Time: 30 Billed Treatment Time 1, BUCKY Murray May 06, 2019 11:47
--- NOTE | 2019-05-06 11:51 | Physical Therapy Daily Note ---
PT Daily Note-Current Subjective Pt. in bed with head up, OT and PT co Rx attempt. Pt. confused. Attempts made to communicate but pt. seeing others in the room and speaks but is confused, off subject . Does refer to having upset stomach, touches abdomen and grimaces. Pain Location Body Site: Abdomen Comment: see above Mental Status Patient Orientation: Confused Attachments: PEG Tube, Wing Catheter, Other-See Comments ([place]) Transfers SCALE: Activities may be completed with or without assistive devices. 6-Rdpenektvr-xxlcslb completes the activity by him/herself with no assistance from a helper. 5-Set-up or Clean-up Assistance-helper sets up or cleans up; patient completes activity. [place] assists only prior to or following the activity. 4-Supervision or Touching Assistance-helper provides verbal cues and/or touc lionel/steadying and/or contact guard assistance as patient completes activity. Assistance may be provided throughout the activity or intermittently. 3-Partial/Moderate Assistance-helper does LESS THAN HALF the effort. [place] lifts, holds or supports trunk or limbs, but provides less than half the effort. 2-Substantial/Maximal Assistance-helper does MORE THAN HALF the effort. [place] lifts or holds trunk or limbs and provides more than half the effort. 8-Axxnjiaku-etzlci does ALL the effort. Patient does none of the effort to complete the activity. Or, the assistance of 2 or more helpers is required for the patient to complete the activity. If activity was not attempted, code reason: 7-Patient Refused. 9-Not Applicable-not attempted and the patient did not perform the activity before the current illness, exacerbation or injury. 10-Not Attempted due to Environmental Limitations-(lack of equipment, weather restraints, etc.). 88-Not Attempted due to Medical Conditions or Safety Concerns. Roll Left & Right (QC): 3 Gait Training Does the Patient Walk?: No and Walking Goal NOT indicated Exercises Supine Ex: Ankle pumps, Heel Slides, Hip abd/add Supine Reps: 12 (passive active assisted) Treatments co Rx attempted with OT, pt. seeing others in the room and asks this RING SORTER if I see them too, pt. does not follow conversation line, refuses when asked to attempt sitting edge of bed, infers again that she is in discomfort. Pt. does not participate in therapies . Discussed pts status with nursing and liason . Assessment Current Status: Regressing pt. unable to participate in Rx, discomfort as well as increased confusion PT Short Term Goals Short Term Goals Time Frame: Apr 25, 2019 Roll Left & Right: 3 (mod A) Sit to lyin (modA) Lying to sitting on side of be: 3 (modA) Sit to stand: 3 (modA) Chair/oko-zd-zywvr transfer: 3 (modA) PT Senior Ios Developer Goals Senior Ios Developer Goals PT [facility] Goals Time Frame: May 09, 2019 Roll Left & Right (QC): 3 (Chet) Sit to Lying (QC): 3 (Chet) Lying-Sitting on Side/Bed(QC): 3 (Chet) Sit to Stand (QC): 3 (Chet) Chair/Snr-le-Eafwl Xfer(QC): 3 (Chet) Toilet Transfer (QC): 3 (Chet) Car Transfer (QC): 3 (Chet) Does the Patient Walk: No and Walking Goal NOT indicated Walk 10 feet (QC): 88 Walk 50ft with 2 Turns (QC): 88 Walk 150 ft (QC): 88 Walking 10ft on Uneven Surface: 88 1 Step (curb) (QC): 88 4 Steps (QC): 88 12 Steps (QC): 88 Picking up an Object (QC): 88 Does the Pt use WC or Scooter?: Yes Wheel 50 feet with 2 turns (QC: 4 (SBA) Type: Manual Wheel 150 feet: 4 (SBA) Type: Manual PT Plan Treatment/Plan Treatment Plan: Continue Plan of Care Treatment Plan: Bed Mobility, Concurrent Therapy, Education, Functional Activit y José, Functional Strength, Group Therapy, Gait, Safety, Therapeutic Exercise, Transfers Treatment Duration: May 09, 2019 Frequency: At least 5 of 7 days/Wk (IRF) Estimated Hrs Per Day: 1.5 hours per day Patient and/or Family Agrees t: Yes Time/GCodes Time In: 1100 Time Out: 1135 Total Billed Treatment Time: 35 Total Billed Treatment 1,FA35m VIKTOR GARCIA RING SORTER May 06, 2019 11:51
--- NOTE | 2019-05-06 13:01 | NUR ---
TPN: BUN 88, TPN PROVIDING 1750 KCAL WITH 100GM PROTEIN. 100GM = 1.5GM/KG ADJ BODY WEIGHT. WILL REDUCE PRO TO 80 GM FOR 1.2 GM/KG. TPN WILL CYCLE PROVIDING 1670 KCAL WITH 80 GM PRO.
[2019-05-06] MEDS: fentaNYL INJECTION 100 MCG/2 ML AMP IV PRN ×2 (13:17→22:37)
--- NOTE | 2019-05-06 13:30 | Occupational Ther Daily Note ---
OT Current Status-Daily Note Subjective Pt. confused throughout attempted treatment. Closes eyes. Max cues and encouragement to participate. Pt. grimaces when moved. Does not report pain number. Nursing has given pain medication. Mental Status/Objective Patient Orientation: Confused, [place] Attachments: Colostomy/Ileostomy, Wing Catheter, IV, Oxygen ADL-Treatment Therapy Code Descriptions/Definitions Functional [place] Measure: 0=Not Assessed/NA 4=Minimal Assistance 1=Total Assistance 5=Supervision or Setup 2=Maximal Assistance 6=Modified [place] 3=Moderate Assistance 7=Complete IndependenceSCALE: Activities may be completed with or without assistive devices. 3-Ovehkqzexz-lfrrsrt completes the activity by him/herself with no assistance from a helper. 5-Set-up or Clean-up Assistance-helper sets up or cleans up; patient completes activity. [place] assists only prior to or following the activity. 4-Supervision or Touching Assistance-helper provides verbal cues and/or touching/steadying and/or contact guard assistance as patient completes activi ty. Assistance may be provided throughout the activity or intermittently. 3-Partial/Moderate Assistance-helper does LESS THAN HALF the effort. [place] lifts, holds or supports trunk or limbs, but provides less than half the effort. 2-Substantial/Maximal Assistance-helper does MORE THAN HALF the effort. [place] lifts or holds trunk or limbs and provides more than half the effort. 8-Facrgtlrh-ribxfz does ALL the effort. Patient does none of the effort to complete the activity. Or, the assistance of 2 or more helpers is required for the patient to complete the activity. If activity was not attempted, code reason: 7-Patient Refused. 9-Not Applicable-not attempted and the patient did not perform the activity before the current illness, exacerbation or injury. 10-Not Attempted due to Environmental Limitations-(lack of equipment, weather restraints, etc.). 88-Not Attempted due to Medical Conditions or Safety Concerns. Eating (QC): 2 (Please see note.) Oral Hygiene (QC): 3 On/Off Footwear: 1 Toileting Hygiene (QC): 1 Other Treatment Pt. in bed when OT entered room. Greeted pt and let her know the plan for the therapy session. Pt. begins to decline OOB activity. After much encouragement, OT attempts multiple ways to engage pt. in functional activity. OT places bed in chair position and adjusts pt. to upright position. Pt. has food tray in room, but has not eaten any. Declines when OT asks if she would like anything. However, OT brings over several choices and pt. agrees to try her yogurt. OT gives pt. spoon and small yogurt cup. Pt. is unable to bring spoon to mouth, and requires assistance to do so. Pt. grimaces but takes two bites. Declines any more. Pt. agrees to one more bite of fruit puree, but declines anything else. Does not want a drink or to try something like ice cream. OT provides pt. with warm wash cloth to wash face. Pt. does this quickly, and not thoroughly. OT hands pt. brush to brush her hair. Pt. is able to take several swipes at one side of her head, but keeps eyes closed and will not do other s nicola. OT does this for her. Pt. is given toothbrush and encouraged to brush her gums. Pt. takes several swipes but states, "enough." Noted at beginning of treatment leak in colostomy, in which nursing came in to cleanse and seal it. Gown changed for pt. PT came in to assist with partial co-treat, as pt. not tolerated therapy. Attempted to engage pt. in UE/LE exercises, with OT focusing on UE and PT on LE. Max encouragement noted and then pt. would stop the activity. Encouraged pt. to OOB activity. Pt. keeps eyes closed and states, "no." Pt. confused throughout and talking about people in room. Pt. made comfortable at bed level. Spoke with rehab liason regarding pt's inability to participate at this time, and need to rest. Social work actively addressing discharge to fdc, as pt. is not tolerating OOB activity or other therapy treatments at this time. Education OT Patient Education: Correct positioning, Exercise program, Modified ADL techniques, Progress toward Goal/Update tx plan, Purpose of tx/functional activities, Reviewed precautions, Rehab process, Transfer techniques Teaching Recipient: Patient Teaching Methods: Demonstration, Discussion Response to Teaching: Unable to Return Demonstration, Reinforcement Needed OT Short Term Goals Short Term Goals Time Frame: May 02, 2019 Eatin Oral hygiene: 4 Toileting hygiene: 3 Shower/bathe self: 3 Upper body dressin Lower body dressin Putting on/taking off footwear: 3 OT Products Mechanical Design Engineer Goals Intermediate Goals Time Frame: May 16, 2019 Eating (QC): 6 Oral Hygiene (QC): 6 Toileting Hygiene (QC): 5 Shower/Bathe Self (QC): 4 Upper Body Dressing (QC): 5 Lower Body Dressing (QC): 5 On/Off Footwear (QC): 5 Additional Goals: 1-Demonstrate ADL Tasks, 2-Verbalize Understanding, 3-ImproveStrength/José 1=Demonstrate adherence to instructed precautions during ADL tasks. 2=Patient will verbalize/demonstrate understanding of assistive devices/modifications for ADL. 3=Patient will improve strength/tolerance for activity to enable patient to perform ADL's. OT Education/Plan Problem List/Assessment Assessment: Decreased Activ Tolerance, Decreased UE Strength, Dependent Transfers, Impaired Bed Mobility, Impaired Cognition, Impaired Coordination, Impaired Funct Balance, Impaired I ADL's, Impaired Self-Care Skills, Restricted Funct UE ROM Discharge Recommendations Plan/Recommendations: Continue POC Therapy Discharge Recommendati: 24 Hour Supervision Treatment Plan/Plan of Care Treatment,Training & Education: Yes Patient would benefit from OT for education, treatment and training to promote independence in ADL's, mobility, safety and/or upper extremity function for ADL's. Plan of Care: ADL Retraining, Caregiver Training, Functional Mobility, Group Exercise/Act as Ind, UE Funct Exercise/Act Treatment Duration: May 16, 2019 Frequency: At least 5 of 7 days/Wk (IRF) Estimated Hrs Per Day: 1.5 hours per day Agreement: Yes Rehab Potential: Guarded Time/GCodes Start Time: 10:45 Stop Time: 11:35 Total Time Billed (hr/min): 50 Billed Treatment Time 2948-2432 1, ADL x 30minutes, FA x 20minutes Partial co-treatment for 35 minutes with PT. Please see above note for designated roles. HEMANT MERCEDES OT May 06, 2019 13:29
--- NOTE | 2019-05-06 14:04 | NUR ---
CONCURRENT NOTE Continued discharge planning, followup from outstanding referrals: [facility]. Offered an RN to come to [place] to do bedside assessment, later Sanitation Engineer called exploring history of skilled days used. Family has requested this referral be put on hold but it is overall active and pending. Daughter Jeni requested [place] or [place]. Heel Turner spoke with SW at [facility] for resources. Referral then sent to: [place] [address] FX: [phone] PH: [phone] Contact: Emilee Ngo researching facilities in [facility] that will accept TPN and wound vac, referrals will be initiated at SNFs of their choice from those available.
[2019-05-06 15:48] VITALS: BP 109/62
--- NOTE | 2019-05-06 15:55 | Progress Note - Surgery ---
Subjective Time Seen by a Provider: 13:16 Subjective/Events-last exam Pt seen and examined while wound care was taking down VAC. Pt appears comfortable and has no complaints. Review of Systems General: No Night Sweats; Fatigue Pulmonary: No Dyspnea Cardiovascular: No: Chest Pain, Palpitations Gastrointestinal: Abdominal Pain Objective Exam Vital Signs Date Time Temp Pulse Resp B/P (MAP) Pulse Ox O2 Delivery O2 Flow Rate FiO2 05/06/19 15:48 36.6 71 16 109/62 (78) 96 Nasal Cannula 3.00 05/06/19 09:00 Nasal Cannula 2.00 05/06/19 08:35 83 130/64 (86) 98 3.00 05/06/19 08:16 90 Nasal Cannula 3.00 05/06/19 05:10 37.4 82 20 136/64 (88) 93 High Flow N/C 3.00 05/05/19 20:25 Nasal Cannula 2.00 05/05/19 18:00 36.6 70 18 106/61 (76) 96 High Flow N/C 3.00 I & O 05/06/19 07:00 Intake Total 225 ml Output Total 1825 ml Balance -1600 ml Capillary Refill : Less Than 3 Seconds General Appearance: No Apparent Distress, Anxious, Chronically ill, Thin, Other HEENT: PERRL/EOMI Neck: Non Tender, Supple Respiratory: Chest Non Tender, Lungs Clear, Normal Breath Sounds, No Accessory Muscle Use, No Respiratory Distress Cardiovascular: Regular Rate, Rhythm, No Edema Peripheral Pulses: 2+ Dorsalis Pedis (R), 2+ Left Dors-Pedis (L), 2+ Radial Pulses (R), 2+ Radial Pulses (L) Gastrointestinal: normal bowel sounds, non tender, soft, other (pt has 2 working Ileostomies (pink and functional), midline open wound majority with granulation tissue except on area left upper portion of wound that has slight rind to it appears smaller than a week ago) Extremity: No Calf Tenderness Neurologic/Psychiatric: Alert, Oriented x3, Normal Mood/Affect, blasting gang miner II-XII Norm as Tested, Disoriented, Motor Weakness Skin: Normal Color, Warm/Dry Results Lab Laboratory Tests 05/05/19 18:13: Glucometer 107 05/06/19 05:29: Glucometer 155H 05/06/19 05:30: White Blood Count 12.3H, Red Blood Count 2.75L, Hemoglobin 8.5L, Hematocrit 28L, Mean Corpuscular Volume 102H, Mean Corpuscular Hemoglobin 31, Mean Corpuscular Hemoglobin Concent 30L, Red Cell Distribution Width 15.9H, Platelet Count 183, Mean Platelet Volume 12.8H, Neutrophils (%) (Auto) 81H, Lymphocytes (%) (Auto) 8L, Monocytes (%) (Auto) 10, Eosinophils (%) (Auto) 1, Basophils (%) (Auto) 0, Neutrophils # (Auto) 9.9H, Lymphocytes # (Auto) 0.9L, Monocytes # (Auto) 1.2H, Eosinophils # (Auto) 0.2, Basophils # (Auto) 0.0, Sodium Level 139, Potassium Level 3.9, Chloride Level 99, Carbon Dioxide Level 30, Anion Gap 10, Blood Urea Nitrogen 88H, Creatinine 1.02, Estimat Glomerular Filtration Rate 53, BUN/Creatinine Ratio 86, Glucose Level 142H, Calcium Level 8.2L, Corrected Calcium 10.0, Total Bilirubin 4.2H, Aspartate Amino Transf (AST/SGOT) 81H, Alanine Aminotransferase (ALT/SGPT) 50, Alkaline Phosphatase 166H, Total Protein 6.0L, Albumin 1.7L 05/06/19 12:24: Glucometer 163H Assessment/Plan Assessment/Plan Assessment/Plan open abdominal wall with vicryl mesh and wound vac Ileostomy x 2 Malnutrition Mild Dementia Wound granulating in at last visit, area of rind that may need debriding at last check. Continue to follow healing of wound, monitor for changes in progress. I met with Family and SW last Monday to try and talk about placement for pt; she will need at least 3-4 more months of TPN. She needs to get strong enough to undergo a reversal of the most recent ileostomy and reconnect bowel. However, this can only be done at a few select nursing homes. Family is beginning to accept the fact that she unfortunately cannot stay in this are for the rest of her treatment. Clinical Quality Measures DVT/VTE Risk/Contraindication: Risk Factor Score Per Nursin RFS Level Per Nursing on Admit: 4+=Very High MISSY MONTEJO DO May 06, 2019 15:55
[2019-05-06] MEDS: POTASSIUM ACETATE IV SCH ×11 (17:17)
[2019-05-06] MEDS: SODIUM ACETATE IV SCH ×11 (17:17)
[2019-05-06] MEDS: [UNRECOGNIZED DRUG - OTHER] IV SCH ×11 (17:17)
--- NOTE | 2019-05-06 17:22 | Cardiology Progress Note ---
Cardiology SOAP Progress Note Subjective: No cardiac complaints. Objective: I&O/Vital Signs 05/06/19 05/06/19 05/06/19 05/06/19 08:16 08:35 09:00 15:48 Temp 36.6 Pulse 83 71 Resp 16 B/P (MAP) 130/64 (86) 109/62 (78) Pulse Ox 90 98 96 O2 Delivery Nasal Cannula Nasal Cannula Nasal Cannula O2 Flow Rate 3.00 3.00 2.00 3.00 05/06/19 00:00 Intake Total 125 ml Output Total 1025 ml Balance -900 ml Weight (Pounds): 160 Weight (Ounces): 0.0 Weight (Calculated Kilograms): [id number] Constitutional: AAO x 3, well-developed, well-nourished Respiratory: chest expansion is symmetric, chest is bilaterally symmetric, other Cardiovascular: regular rate-rhythm, S1 and S2 Gastrointestional: other Extremities: no lower extremity edema bilateral Neurologic/Psychiatric: no motor/sensory deficits, alert, normal mood/affect, oriented x 3, grossly intact Skin: normal color Results/Procedures: Labs Laboratory Tests 05/05/19 18:13: Glucometer 107 05/06/19 05:29: Glucometer 155H 05/06/19 05:30: White Blood Count 12.3H, Red Blood Count 2.75L, Hemoglobin 8.5L, Hematocrit 28L, Mean Corpuscular Volume 102H, Mean Corpuscular Hemoglobin 31, Mean Corpuscular Hemoglobin Concent 30L, Red Cell Distribution Width 15.9H, Platelet Count 183, Mean Platelet Volume 12.8H, Neutrophils (%) (Auto) 81H, Lymphocytes (%) (Auto) 8L, Monocytes (%) (Auto) 10, Eosinophils (%) (Auto) 1, Basophils (%) (Auto) 0, Neutrophils # (Auto) 9.9H, Lymphocytes # (Auto) 0.9L, Monocytes # (Auto) 1.2H, Eosinophils # (Auto) 0.2, Basophils # (Auto) 0.0, Sodium Level 139, Potassium [place] 3.9, Chloride Level 99, Carbon Dioxide Level 30, Anion Gap 10, Blood Urea Nitrogen 88H, Creatinine 1.02, Estimat Glomerular Filtration Rate 53, BUN/Creatinine Ratio 86, Glucose Level 142H, Calcium Level 8.2L, Corrected Calcium 10.0, Total Bilirubin 4.2H, Aspartate Amino Transf (AST/SGOT) 81H, Alanine Aminotransferase (ALT/SGPT) 50, Alkaline Phosphatase 166H, Total Protein 6.0L, Albumin 1.7L 05/06/19 12:24: Glucometer 163H A/P: Assessment/Dx: PAF CAD HTN HLP Plan: H/O multiple abdominal surgeries, had bowel resection and diverting ileostomy, last procedure was done on March 13, 2019, followed by surgical services, recent transfer from [place] on 04-18-19 Paroxysmal atrial fibrillation, maintained on Lopressor, Eliquis. Continue to monitor. Labile hypertension, blood pressure well controlled at this time, continue to monitor. H/O acute renal insufficiency, continue to monitor renal function. Coronary artery disease - Most recent cardiac catheterization done April 2018 revealed mild ectasia in the proximal LAD with mild disease in the mid LAD, small vessel disease distally, mild ectasia in the proximal circumflex artery and 40-50 percent stenosis in the mid right coronary artery, nonobstructive disease History of colon cancer, history of colon resection and colostomy in the past, followed by Dr. Branham Hyperlipidemia- continue to monitor lipids as outpatient. Carotid artery stenosis, bilateral nonobstructive disease per carotid duplex done December 2018, continue to monitor. History of thyroid nodules noted on ultrasound, followed by Dr. Branham and Dr. Simmons Diabetes mellitus Family history of coronary artery disease. Obstructive sleep apnea, intolerance to CPAP History of appendectomy, kidney stones, hysterectomy. Breast biopsy. Anemia, continue to monitor, management per Dr Hand Thank you for your consultation. Please call me if you have any questions. Martha Spear MD, FACP, FACC, FSCAI, FHRS, CCDS Interventional Cardiology Cardiac Electrophysiology Vascular Medicine and Endovascular Interventions Gumaro SPEAR MD May 06, 2019 17:22
[2019-05-06 20:42] VITALS: BP 123/63
[2019-05-07] MEDS: inSUlin ASPART (NovoLOG) 1 UNIT/0.01 ML (CHARGE PER UNIT) SC SCH ×4 (00:32→18:19)
[2019-05-07 04:38] VITALS: BP 121/65
[2019-05-07] MEDS: CATHETER FLUSH 10 ML SYR IV SCH ×3 (06:23→19:57)
[2019-05-07 08:14] VITALS: BP 127/61
[2019-05-07] MEDS: ENALAPRIL 5 MG (VASOTEC) TAB PEG SCH (08:17)
[2019-05-07] MEDS: FAMOTIDINE 20 MG (PEPCID) TABLET PO SCH (08:17)
[2019-05-07] MEDS: cloNIDine 0.1 MG PATCH (CATAPRES TTS) TDSY TOP SCH (08:18)
[2019-05-07] MEDS: OXYBUTYNIN (DITROPAN) 5 MG TAB PO SCH ×2 (08:18→19:57)
[2019-05-07] MEDS: SERTRALINE 50 MG (ZOLOFT) TABLET PO SCH (08:18)
[2019-05-07] MEDS: NYSTATIN ORAL SUSP 5 ML UDC PO SCH ×4 (08:18→19:29)
[2019-05-07] MEDS: meTOprolol TARTRATE 50 MG (LOPRESSOR) TAB PO SCH ×2 (08:18→19:57)
[2019-05-07] MEDS: APIXABAN 5 MG (ELIQUIS) TABLET PO SCH ×2 (08:19→19:57)
[2019-05-07] MEDS: VISC LIDOCAINE/ANTACID/DIPHENHYDRAMINE 1:1:1 120 ML PO SCH ×12 (08:20→19:28)
[2019-05-07] MEDS: FLUTICASONE NASAL SPRAY (FLONASE) 16 GM BTL NS SCH (08:20)
[2019-05-07] MEDS: CLONIDINE PATCH REMOVAL TP SCH (09:00)
--- NOTE | 2019-05-07 10:58 | Physical Therapy Daily Note ---
PT Daily Note-Current Subjective Pt laying Supine in bed with daughter present upon arrival. Pt reluctantly agrees to PT/OT co-treat, needs encouragement to participate. Pain Comment: Pain not rated but reported in neck, shoulders, stomach and back. Mental Status Patient Orientation: Person, Confused Attachments: Colostomy/Ileostomy, Oxygen, Wing Catheter Transfers SCALE: Activities may be completed with or without assistive devices. 9-Qrtpiplpja-ltoubgx completes the activity by him/herself with no assistance from a helper. 5-Set-up or Clean-up Assistance-helper sets up or cleans up; patient completes activity. [place] assists only prior to or following the activity. 4-Supervision or Touching Assistance-helper provides verbal cues and/or touching/steadying and/or contact guard assistance as patient completes activity. Assistance may be provided throughout the activity or intermittently. 3-Partial/Moderate Assistance-helper does LESS THAN HALF the effort. [place] lifts, holds or supports trunk or limbs, but provides less than half the effort. 2-Substantial/Maximal Assistance-helper does MORE THAN HALF the effort. [place] lifts or holds trunk or limbs and provides more than half the effort. 7-Ttjprbtxk-uymfoe does ALL the effort. Patient does none of the effort to complete the activity. Or, the assistance of 2 or more helpers is required for the patient to complete the activity. If activity was not attempted, code reason: 7-Patient Refused. 9-Not Applicable-not attempted and the patient did not perform the activity before the current illness, exacerbation or injury. 10-Not Attempted due to Environmental Limitations-(lack of equipment, weather restraints, etc.). 88-Not Attempted due to Medical Conditions or Safety Concerns. Roll Left & Right (QC): 1 Sit to Lying (QC): 1 Lying to Sitting/Side of Bed(Q: 1 Sit to Stand (QC): 1 Weight Bearing Full Weight Bearing Full Weight Bearing Gait Training Does the Patient Walk?: No and Walking Goal NOT indicated Exercises Supine Ex: Ankle pumps Supine Reps: 10 Treatments OT/PT co-treat pt. due to pt's inability to participate, and need of skilled assistance x 2. Attempted multiple tasks with pt., in hopes that she would be able to sustain movement and tolerate treatment. Bed placed in chair position b ut pt. unable to tolerate full upright position, so HOB lowered. OT attempted UE exercises with pt, and PT attempted alternating LE exercises. Pt. would do one exercise, but then would stop participating. Would close eyes. Max cues and encouragement provided. OT attempted to have pt. brush hair, and then hold cup to take drink. Pt. would attempt, but then unable to fully bring to head or mouth. OT did this for her. Pt. took two sips of water, but did not want anymore. Declined all offers of another liquid or food. Pt. transferred supine-sit with max x 2 to sit on side of bed. Pt. pushing hard to left side, and so encouraged to find sitting base of support. Pt. able to engage core and sit upright with CGA but only briefly. Pt. begging to lay back down and therapy team, along with daughter encouraging pt. to continue sitting for increased strength. Pt. does agree at one time to stand. Max x 2 for sit-stand. Only tolerated briefly and sat back down. Pt. confused throughout treatment. Max x 2 for sit-supine and bed mobility. Pt. continues to close eyes and will not participate well. Pt. positioned on right side and made comfortable. All needs met. Assessment Current Status: Poor Progress Pt confused throughout Rx. Pt continues to want to lay back in bed during Sitting. Pt reports pain w/no relief from medication, massage or repositioning. Pt cannot tolerate paper box cutter of Rx as scheduled. PT Short Term Goals Short Term Goals Time Frame: Apr 25, 2019 Roll Left & Right: 3 (mod A) Sit to lyin (modA) Lying to sitting on side of be: 3 (modA) Sit to stand: 3 (modA) Chair/tnt-pp-oygab transfer: 3 (modA) PT Poultry Feed Supervisor Goals Senior Care Goals PT Poultry Feed Supervisor Goals Time Frame: May 09, 2019 Roll Left & Right (QC): 3 (Chet) Sit to Lying (QC): 3 (Chet) Lying-Sitting on Side/Bed(QC): 3 (Chet) Sit to Stand (QC): 3 (Chet) Chair/Rtm-yk-Gwdzb Xfer(QC): 3 (Chte) Toilet Transfer (QC): 3 (Chet) Car Transfer (QC): 3 (Chet) Does the Patient Walk: No and Walking Goal NOT indicated Walk 10 feet (QC): 88 Walk 50ft with 2 Turns (QC): 88 Walk 150 ft (QC): 88 Walking 10ft on Uneven Surface: 88 1 Step (curb) (QC): 88 4 Steps (QC): 88 12 Steps (QC): 88 Picking up an Object (QC): 88 Does the Pt use WC or Scooter?: Yes Wheel 50 feet with 2 turns (QC: 4 (SBA) Type: Manual Wheel 150 feet: 4 (SBA) Type: Manual PT Plan Problem List Problem List: Activity Tolerance, Functional Strength, Safety, Balance, Gait, Transfer, Bed Mobility, ROM Treatment/Plan Treatment Plan: Continue Plan of Care Treatment Plan: Bed Mobility, Concurrent Therapy, Education, Functional Activity José, Functional Strength, Group Therapy, Gait, Safety, Therapeutic Exercise, Transfers Treatment Duration: May 09, 2019 Frequency: At least 5 of 7 days/Wk (IRF) Estimated Hrs Per Day: 1.5 hours per day Patient and/or Family Agrees t: Yes Safety Risks/Education Patient Education: Correct Positioning, Safety Issues Teaching Recipient: Patient, Family Teaching Methods: Discussion Response to Teaching: Reinforcement Needed Time/GCodes Time In: 950 Time Out: 1040 Total Billed Treatment Time: 50 Total Billed Treatment 1,FA x3 (50m) Co-treat w/OT (50m) BRITTANY HARTMAN PTA May 07, 2019 10:58
--- NOTE | 2019-05-07 11:22 | Occupational Ther Daily Note ---
OT Current Status-Daily Note Subjective Max cues of encouragement needed. Pt. reports pain in back, neck, and abdomen with any movement. Does not report pain level. Pt. has had medication and therapy attempts different massage, movement, and positioning techniques. Appearance Pt. in bed when therapy enters room. Mental Status/Objective Patient Orientation: Confused Attachments: Colostomy/Ileostomy, Wing Catheter, IV, Oxygen Wound vac ADL-Treatment Therapy Code Descriptions/Definitions Functional [place] Measure: 0=Not Assessed/NA 4=Minimal Assistance 1=Total Assistance 5=Supervision or Setup 2=Maximal Assistance 6=Modified [place] 3=Moderate Assistance 7=Complete IndependenceSCALE: Activities may be completed with or without assistive devices. 2-Riadswganf-bdeuplp completes the activity by him/herself with no assistance from a helper. 5-Set-up or Clean-up Assistance-helper sets up or cleans up; patient completes activity. [place] assists only prior to or following the activity. 4-Supervision or Touching Assistance-helper provides verbal cues and/or touching/steadying and/or contact guard assistance as patient completes activity. Assistance may be provided throughout the activity or intermittently. 3-Partial/Moderate Assistance-helper does LESS THAN HALF the effort. [place] lifts, holds or supports trunk or limbs, but provides less than half the effort. 2-Substantial/Maximal Assistance-helper does MORE THAN HALF the effort. [place] lifts or holds trunk or limbs and provides more than half the effort. 2-Mzsyruvme-hvkopk does ALL the effort. Patient does none of the effort to complete the activity. Or, the assistance of 2 or more helpers is required for the patient to complete the activity. If activity was not attempted, code reason: 7-Patient Refused. 9-Not Applicable-not attempted and the patient did not perform the activity before the current illness, exacerbation or injury. 10-Not Attempted due to Environmental Limitations-(lack of equipment, weather restraints, etc.). 88-Not Attempted due to Medical Conditions or Safety Concerns. OT/PT co-treat pt. due to pt's inability to participate, and need of skilled assistance x 2. Attempted multiple tasks with pt., in hopes that she would be able to sustain movement and tolerate treatment. Bed placed in chair position but pt. unable to tolerate full upright position, so HOB lowered. OT attempted UE exercises with pt, and PT attempted alternating LE exercises. Pt. would do one exercise, but then would stop participating. Would close eyes. Max cues and encouragement provided. OT attempted to have pt. brush hair, and then hold cup to take drink. Pt. would attempt, but then unable to fully bring to head or mouth. OT did this for her. Pt. took two sips of water, but did not want anymore. Declined all offers of another liquid or food. Pt. transferred supine-sit with max x 2 to sit on side of bed. Pt. pushing hard to left side, and so encouraged to find sitting base of support. Pt. able to engage core and sit upright with CGA but only briefly. Pt. begging to lay back down and therapy team, along with daughter encouraging pt. to continue sitting for increased strength. Pt. does agree at one time to stand. Max x 2 for sit-stand. Only tolerated briefly and sat back down. Pt. confused throughout treatment. Max x 2 for sit-supine and bed mobility. Pt. continues to close eyes and will not participate well. Pt. positioned on right side and made comfortable. All needs met. Education OT Patient Education: Correct positioning, Progress toward Goal/Update tx plan, Purpose of tx/functional activities, Reviewed precautions, Rehab process, Transfer techniques Teaching Recipient: Patient, Family Teaching Methods: Demonstration, Discussion Response to Teaching: Unable to Return Demonstration, Unable to Comprehend, Reinforcement Needed OT Short Term Goals Short Term Goals Time Frame: May 02, 2019 Eatin Oral hygiene: 4 Toileting hygiene: 3 Shower/bathe self: 3 Upper body dressin Lower body dressin Putting on/taking off footwear: 3 OT Correction Goals Correction Goals Time Frame: May 16, 2019 Eating (QC): 6 Oral Hygiene (QC): 6 Toileting Hygiene (QC): 5 Shower/Bathe Self (QC): 4 Upper Body Dressing (QC): 5 Lower Body Dressing (QC): 5 On/Off Footwear (QC): 5 Additional Goals: 1-Demonstrate ADL Tasks, 2-Verbalize Understanding, 3- ImproveStrength/José 1=Demonstrate adherence to instructed precautions during ADL tasks. 2=Patient will verbalize/demonstrate understanding of assistive devices/modifications for ADL. 3=Patient will improve strength/tolerance for activity to enable patient to perform ADL's. OT Education/Plan Problem List/Assessment Assessment: Decreased Activ Tolerance, Decreased Safety Aware, Decreased UE Strength, Dependent Transfers, Impaired Bed Mobility, Impaired Cognition, Impaired Coordination, Impaired Funct Balance, Impaired I ADL's, Impaired Self- Care Skills, Restricted Funct UE ROM Discharge Recommendations Plan/Recommendations: Continue POC Therapy Discharge Recommendati: 24 Hour Supervision Barriers to Progress Pt. is unable to tolerate very much therapy at this time. Is not able to participate due to pain and confusion. Max encouragement needed. Pt. will not do for self or engage with therapy team. Treatment Plan/Plan of Care Treatment,Training & Education: Yes Patient would benefit from OT for education, treatment and training to promote independence in ADL's, mobility, safety and/or upper extremity function for ADL's. Plan of Care: ADL Retraining, Caregiver Training, Functional Mobility, Group Exercise/Act as Ind, UE Funct Exercise/Act Treatment Duration: May 16, 2019 Frequency: At least 5 of 7 days/Wk (IRF) Estimated Hrs Per Day: 1.5 hours per day Agreement: Yes Rehab Potential: Guarded Time/GCodes Start Time: 09:50 Stop Time: 10:40 Total Time Billed (hr/min): 50 Billed Treatment Time 1, FA x 3 Co-treatment with PT. Please see above note for designated roles. HEMANT MERCEDES OT May 07, 2019 11:22
--- NOTE | 2019-05-07 11:27 | PM&R Progress Note ---
Subjective HPI/CC On Admission Date Seen by Provider: May 07, 2019 Time Seen by Provider: 10:30 Subjective/Events-last exam Slow progress to no progress Refusing to eat Pursuing facility that can manage TPN Very difficult situation No longer participating in therapies Very slow decline in could be at risk for even more of a decline in decompensation Maintain supportive care Conferred with RN Check meds and labs Reviewed therapy notes Review of Systems General: Fatigue Gastrointestinal: Nausea, Abdominal Pain Objective Exam Vital Signs Vital Signs Date Time Temp Pulse Resp B/P (MAP) Pulse Ox O2 Delivery O2 Flow Rate FiO2 05/07/19 09:00 Nasal Cannula 2.00 05/07/19 08:14 83 127/61 (83) 05/07/19 04:38 36.5 18 94 Capillary Refill : Less Than 3 Seconds General Appearance: No Apparent Distress, Anxious, Chronically ill, Thin, Other HEENT: PERRL/EOMI Neck: Non Tender, Supple Respiratory: Chest Non Tender, Lungs Clear, Normal Breath Sounds, No Accessory Muscle Use, No Respiratory Distress Cardiovascular: Regular Rate, Rhythm, No Edema Gastrointestinal: Normal Bowel Sounds, No Organomegaly, No Pulsatile Mass, Non Tender, Soft Back: Normal Inspection, No CVA Tenderness, No Vertebral Tenderness Extremity: No Calf Tenderness Neurologic/Psychiatric: Alert, Oriented x3, Normal Mood/Affect, flower picker II-XII Norm as Tested, Disoriented, Motor Weakness Skin: Normal Color, Warm/Dry Results/Procedures Lab Patient resulted labs reviewed. FIM Transfers Therapy Code Descriptions/Definitions Functional [place] Measure: 0=Not Assessed/NA 4=Minimal Assistance 1=Total Assistance 5=Supervision or Setup 2=Maximal Assistance 6=Modified [place] 3=Moderate Assistance 7=Complete IndependenceSCALE: Activities may be completed with or without assistive devices. 3-Lqmbnurgeb-qlyerey completes the activity by him/herself with no assistance from a helper. 5-Set-up or Clean-up Assistance-helper sets up or cleans up; patient completes activity. [place] assists only prior to or following the activity. 4-Supervision or Touching Assistance-helper provides verbal cues and/or t ouching/steadying and/or contact guard assistance as patient completes activity. Assistance may be provided throughout the activity or intermittently. 3-Partial/Moderate Assistance-helper does LESS THAN HALF the effort. [place] lifts, holds or supports trunk or limbs, but provides less than half the effort. 2-Substantial/Maximal Assistance-helper does MORE THAN HALF the effort. [place] lifts or holds trunk or limbs and provides more than half the effort. 3-Eahqimooz-idpfrv does ALL the effort. Patient does none of the effort to complete the activity. Or, the assistance of 2 or more helpers is required for the patient to complete the activity. If activity was not attempted, code reason: 7-Patient Refused. 9-Not Applicable-not attempted and the patient did not perform the activity before the current illness, exacerbation or injury. 10-Not Attempted due to Environmental Limitations-(lack of equipment, weather restraints, etc.). 88-Not Attempted due to Medical Conditions or Safety Concerns. Roll Left to Right (QC): 1 Sit to Lying (QC): 1 Sit to Stand (QC): 1 Chair/Yzt-io-Iviai Xfer(QC): 1 ([place] lift required) Car Transfer (QC): 88 Gait Training Does the Patient Walk?: No and Walking Goal NOT indicated Walk 10 feet (QC): 88 Walk 50 ft with 2 Turns(QC): 88 Walk 150 ft (QC): 88 Walking 10ft/uneven surface-QC: 88 Wheelchair Training Does the Pt Use a Wheelchair?: No Wheel 50 ft with 2 turns (QC): 88 Wheel 150 ft (QC): 88 Type of Wheelchair: Manual Stair Training 1 Step (curb) (QC): 88 4 Steps (QC): 88 12 Steps (QC): 88 Balance Picking up an Object (QC): 88 ADL-Treatment Eating (QC): 2 (Please see note.) Oral Hygiene (QC): 3 Shower/Bathe Self (QC): 1 Upper Body Dressing (QC): 2 Lower Body Dressing (QC): 1 On/Off Footwear (QC): 1 Toileting Hygiene (QC): 1 Toilet Transfer (QC): 88 Assessment/Plan Assessment and Plan Assess & Plan/Chief Complaint Assessment: 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 Diabetes mellitus Low albumin TPN required but weaning while increasing PO intake and initiated a calorie count 3 days ago which now she is refusing to eat History of respiratory failure Elevated liver enzymes due to cholestasis from TPN 4.5 last check Anemia completed iron infusions Confusion with undercurrent of dementia Decubitus ulcers Tachycardia consulted now resolved Plan: Inpatient rehab protocol TPN wean and increasing PO nutrition will start calorie count and fluid intake PO but refusing to eat now so likely this will be unsuccessful Wound care for pressure ulcers Wound vac managed by [facility] and surgeons Air bed Monitor labs and checking in morning Iron infusions [place] lift and bedridden state Appreciate Cardiology for tachycardia management Iron infusions completing Dr Willett spoke to family Refuses to eat now (1) Critical illness myopathy Status: Acute (2) Essential hypertension Status: Chronic (3) Abdominal pain (4) HLP (5) Headache Status: Acute (6) Perforated abdominal viscus Status: Acute (7) Postoperative abdominal pain Status: Acute (8) IDDM (insulin dependent diabetes mellitus) Status: Chronic YARON GALLAGHER DO May 07, 2019 11:27
--- NOTE | 2019-05-07 12:08 | Speech Therapy Daily Note ---
Speech Daily Progress Note Subjective Date Seen by Provider: May 07, 2019 Time Seen by Provider: 00:30 Patient was having another rough day. Daughter was present. Patient had just received nausea med when I entered her room. Objective Patient was able to answer questions related to her needs without cuing. Assessment Assessment Current Status: Fair Progress Treatment Plan Continue Plan of Care Speech Short Term Goals Short Term Goals Short Term Goals 1) Patient will complete memory tasks related to her daily needs at 90% or greater with minimal cues. 2) Patient will complete problem solving tasks related to her daily needs at 90% or greater with minimal cues. 3) Patient will complete safety awareness tasks related to her daily needs at 90% or greater with minimal cues. Speech Senior Living Goals Computer Networking Instructor Goals Patient will improve cognitive-communication necessary for safety and daily living tasks with minimal assist. Speech-Plan Patient/Family Goals Patient/Family Goals: Patient's discharge is pending to another facility. Treatment Plan Speech Therapy Treatment Plan: Continue Plan of Care Patient is difficult to engage due to medical status. Treatment Duration: May 17, 2019 Frequency: 5 times per week Estimated Hrs Per Day: .5 hour per day Rehab Potential: Guarded Barriers to Learning: Patient's medical status Pt/Family Agrees to Plan: Yes Safety Risks/Education Teaching Recipient: Patient, Family Teaching Methods: Discussion Response to Teaching: Verbalize Understanding (qq) Education Topics Provided: Communication of wants/needs Time Speech Therapy Time In: 08:30 Speech Therapy Time Out: 09:00 Total Billed Time: 30 Billed Treatment Time 1, HERMINIO MurrayHANEDWARD CANTU May 07, 2019 12:08
--- NOTE | 2019-05-07 15:12 | Cardiology Progress Note ---
Cardiology SOAP Progress Note Subjective: No cardiac complaints. Objective: I&O/Vital Signs 05/07/19 05/07/19 05/07/19 04:38 08:14 09:00 Temp 36.5 Pulse 71 83 Resp 18 B/P (MAP) 121/65 (83) 127/61 (83) Pulse Ox 94 O2 Delivery Nasal Cannula Nasal Cannula O2 Flow Rate 3.00 2.00 05/07/19 00:00 Intake Total 1900 ml Output Total 860 ml Balance 1040 ml Weight (Pounds): 160 Weight (Ounces): 0.0 Weight (Calculated Kilograms): [id number] Constitutional: AAO x 3, well-developed, well-nourished Respiratory: chest expansion is symmetric, chest is bilaterally symmetric, other Cardiovascular: regular rate-rhythm, S1 and S2 Gastrointestional: other Extremities: no lower extremity edema bilateral Neurologic/Psychiatric: no motor/sensory deficits, alert, normal mood/affect, oriented x 3, grossly intact Skin: normal color Results/Procedures: Labs Laboratory Tests 05/06/19 18:02: Glucometer 121H 05/07/19 00:29: Glucometer 175H 05/07/19 06:16: Glucometer 206H 05/07/19 12:03: Glucometer 134H A/P: Assessment/Dx: PAF CAD HTN HLP Plan: H/O multiple abdominal surgeries, had bowel resection and diverting ileostomy, last procedure was done on March 13, 2019, followed by surgical services, recent transfer from [place] on 04-18-19 Paroxysmal atrial fibrillation, maintained on Lopressor, Eliquis. Continue to monitor. Labile hypertension, blood pressure well controlled at this time, continue to monitor. H/O acute renal insufficiency, continue to monitor renal function. Coronary artery disease - Most recent cardiac catheterization done April 2018 revealed mild ectasia in the proximal LAD with mild disease in the mid LAD, small vessel disease distally, mild ectasia in the proximal circumflex artery and 40-50 percent stenosis in the mid right coronary artery, nonobstructive disease History of colon cancer, history of colon resection and colostomy in the past, followed by Dr. Branham Hyperlipidemia- continue to monitor lipids as outpatient. Carotid artery stenosis, bilateral nonobstructive disease per carotid duplex done December 2018, continue to monitor. History of thyroid nodules noted on ultrasound, followed by Dr. Branham and Dr. Simmons Diabetes mellitus Family history of coronary artery disease. Obstructive sleep apnea, intolerance to CPAP History of appendectomy, kidney stones, hysterectomy. Breast biopsy. Anemia, continue to monitor, management per Dr Hand Thank you for your consultation. Please call me if you have any questions. Martha Spear MD, FACP, FACC, FSCAI, FHRS, CCDS Interventional Cardiology Cardiac Electrophysiology Vascular Medicine and Endovascular Interventions Gumaro SPEAR MD May 07, 2019 15:12
--- NOTE | 2019-05-07 16:12 | NUR ---
CONCURRENT NOTE WEEKLY TEAM CONFERENCE SUMMARY Discharge planning continues to be complex because of patient's high level of acuity with TPN, wound and wound vac, declined status and inability to consistently participate in therapies. [facility], [place] RAMOS, tentatively declined patient today because of lack of an adequate secondary insurance. Facility questioned where patient would go after skilled limits were met, and again, this would be a high-level challenge any accepting facility will scrutinize. [facility] she sent in a [employer] application. [facility] agreed to keep the referral 'pending' if life underwriter could confirm the status of the Medicaid application was moving forward and could also be considered 'Medicaid Pending' status. Daughter Jeni and life underwriter worked in tandem regarding attempts to communicate with [place], Jeni did speak with a rep who stated there was no match for patient's name, , or SS# within their apps received. At reps request, assisted Jeni to fax the DPOA paperwork and patient's information; however, the fax was attempted 3 times on two different machines with errors NO ANSWER. Will resume the followup May 09. Provided a copy of weekly team conference to Jeni for her review and signature. The understanding remains the same that patient will discharge whenever an accepting facility is found.
[2019-05-07] MEDS: SODIUM ACETATE IV SCH ×11 (17:25)
[2019-05-07] MEDS: [UNRECOGNIZED DRUG - OTHER] IV SCH ×11 (17:25)
[2019-05-07] MEDS: POTASSIUM ACETATE IV SCH ×11 (17:25)
[2019-05-08] MEDS: inSUlin ASPART (NovoLOG) 1 UNIT/0.01 ML (CHARGE PER UNIT) SC SCH ×5 (00:10→23:57)
[2019-05-08] MEDS: CATHETER FLUSH 10 ML SYR IV SCH ×3 (05:45→20:06)
[2019-05-08 05:50] VITALS: BP 121/60
[2019-05-08] MEDS: ONDANSETRON 4 MG/2 ML (SDV) Z0FRAN IV PRN (08:42)
[2019-05-08] MEDS: FENTANYL PATCH REMOVAL TP SCH (09:31)
[2019-05-08] MEDS: FLUTICASONE NASAL SPRAY (FLONASE) 16 GM BTL NS SCH (09:32)
[2019-05-08] MEDS: APIXABAN 5 MG (ELIQUIS) TABLET PO SCH ×2 (09:53→20:06)
[2019-05-08] MEDS: FAMOTIDINE 20 MG (PEPCID) TABLET PO SCH (09:53)
[2019-05-08] MEDS: OXYBUTYNIN (DITROPAN) 5 MG TAB PO SCH ×2 (09:53→20:06)
[2019-05-08] MEDS: ENALAPRIL 5 MG (VASOTEC) TAB PEG SCH (09:53)
[2019-05-08] MEDS: meTOprolol TARTRATE 50 MG (LOPRESSOR) TAB PO SCH ×2 (09:53→20:06)
[2019-05-08] MEDS: fentaNYL PATCH 25 MCG (DURAGESIC) TD SCH (09:54)
[2019-05-08] MEDS: VISC LIDOCAINE/ANTACID/DIPHENHYDRAMINE 1:1:1 120 ML PO SCH ×12 (09:54→20:06)
[2019-05-08] MEDS: NYSTATIN ORAL SUSP 5 ML UDC PO SCH ×4 (09:54→20:06)
[2019-05-08] MEDS: SERTRALINE 50 MG (ZOLOFT) TABLET PO SCH (09:55)
--- NOTE | 2019-05-08 11:04 | Physical Therapy Daily Note ---
PT Daily Note-Current Subjective Pt. in bed, dtr present. Keeps eyes closed most of the time. Pt. resists therapies (co Rx PT OT) but dtr strongly encourages. At one point in Rx while pt. is in sitting at EOB with mod to max assist of 2 pt. begging to lay down multiple times, dtr strongly encourages pt. to cont while pt. begins to cry and begs to lay down, dtr walk out of room emotional but enters again to over hear this STONE CUTTER asking pt. to review and reflect on her functional goals and be a participant in working on them. Pt. states she would like to be stronger and would do this for her dtr who is working so hard and bearing so much. Again sitting EOB with max assist of 2 but again begging to lay back down . Pain c/o in abdomen Pain Numeric Pain Scale: 8 Location: Medial Location Body Site: Abdomen Pain Description: Stabbing Appearance appears exhausted , weak and frail Mental Status Patient Orientation: Person Attachments: Drains, Wing Catheter, Other-See Comments ([place]) Transfers SCALE: Activities may be completed with or without assistive devices. 7-Hgnfllcqzm-dxvvlri completes the activity by him/herself with no assistance from a helper. 5-Set-up or Clean-up Assistance-helper sets up or cleans up; patient completes activity. [place] assists only prior to or following the activity. 4-Supervision or Touching Assistance-helper provides verbal cues and/or touchin g/steadying and/or contact guard assistance as patient completes activity. Assistance may be provided throughout the activity or intermittently. 3-Partial/Moderate Assistance-helper does LESS THAN HALF the effort. [place] lifts, holds or supports trunk or limbs, but provides less than half the effort. 2-Substantial/Maximal Assistance-helper does MORE THAN HALF the effort. [place] lifts or holds trunk or limbs and provides more than half the effort. 5-Jgrclllct-nwjlwv does ALL the effort. Patient does none of the effort to complete the activity. Or, the assistance of 2 or more helpers is required for the patient to complete the activity. If activity was not attempted, code reason: 7-Patient Refused. 9-Not Applicable-not attempted and the patient did not perform the activity before the current illness, exacerbation or injury. 10-Not Attempted due to Environmental Limitations-(lack of equipment, weather restraints, etc.). 88-Not Attempted due to Medical Conditions or Safety Concerns. Roll Left & Right (QC): 2 Sit to Lying (QC): 2 Lying to Sitting/Side of Bed(Q: 2 Weight Bearing Full Weight Bearing Full Weight Bearing Gait Training Does the Patient Walk?: No and Walking Goal NOT indicated Exercises Supine Ex: Ankle pumps (HC stretches), Quad Set, Rolling (assisted), Glut sets, Heel Slides (assisted), Hip abd/add (assisted) Treatments emphasized sitting endurance and wt bearing on feet in sitting, pt. with foot drop, HC stretches before up to edge of bed, pt. encouraged that she is safe at EOB but pt. resists and begs to lay back down, approx 4-5 min with max assist OT at pts back for support and PT in front to encourage wt bearing on feet and wt shift for and back and side to side if tolerated. very poor tolerance, insists on laying back down each trial Assessment Current Status: Poor Progress pt. appears to have given up as well as being in very frail status, pt. refuses further Rx or progression of Rx secondary to weakness and pain . Dtr appears to perhaps be in denial of Mothers debility and determination to decline Rx. This STONE CUTTER attempted to discuss the complexity of the purpose of goals for increasing function and at the same time no progress as pt. refuses expressing she just cannot do it. PT Short Term Goals Short Term Goals Time Frame: Apr 25, 2019 Roll Left & Right: 3 (mod A) Sit to lyin (modA) Lying to sitting on side of be: 3 (modA) Sit to stand: 3 (modA) Chair/rwo-da-omqdd transfer: 3 (modA) PT License Inspector Goals Detention Goals PT Detention Goals Time Frame: May 09, 2019 Roll Left & Right (QC): 3 (Chet) Sit to Lying (QC): 3 (Chet) Lying-Sitting on Side/Bed(QC): 3 (Chet) Sit to Stand (QC): 3 (Chet) Chair/Fjx-cp-Cckih Xfer(QC): 3 (Chet) Toilet Transfer (QC): 3 (Chet) Car Transfer (QC): 3 (Chet) Does the Patient Walk: No and Walking Goal NOT indicated Walk 10 feet (QC): 88 Walk 50ft with 2 Turns (QC): 88 Walk 150 ft (QC): 88 Walking 10ft on Uneven Surface: 88 1 Step (curb) (QC): 88 4 Steps (QC): 88 12 Steps (QC): 88 Picking up an Object (QC): 88 Does the Pt use WC or Scooter?: Yes Wheel 50 feet with 2 turns (QC: 4 (SBA) Type: Manual Wheel 150 feet: 4 (SBA) Type: Manual PT Plan Treatment/Plan Treatment Plan: Continue Plan of Care Treatment Plan: Bed Mobility, Concurrent Therapy, Education, Functional Ac tivity José, Functional Strength, Group Therapy, Gait, Safety, Therapeutic Exercise, Transfers Treatment Duration: May 09, 2019 Frequency: At least 5 of 7 days/Wk (IRF) Estimated Hrs Per Day: 1.5 hours per day Patient and/or Family Agrees t: Yes Safety Risks/Education Patient Education: Correct Positioning, Disease Process, Safety Issues Teaching Recipient: Patient, Family Teaching Methods: Demonstration, Discussion Response to Teaching: Unable to Return Demonstration, Reinforcement Needed Time/GCodes Time In: 1000 Time Out: 1050 Total Billed Treatment Time: 50 Total Billed Treatment 1`,FA50m VIKTOR GARCIA STONE CUTTER May 08, 2019 11:04
--- NOTE | 2019-05-08 11:24 | Occupational Ther Daily Note ---
OT Current Status-Daily Note Subjective Pt alert, lying in bed. Nrsg and daughter present. Pt required a lot of encouragement to participate fully in therapy. Pt very anxious about sitting EOB and placing feet on ground. Mental Status/Objective Patient Orientation: Person, Place, Time, Situation Attachments: Colostomy/Ileostomy, Drains (wound), Oxygen ADL-Treatment Co-treatment with PT due to pt's fatigue, anxiety with movement, medical status, and need of skilled treatment x 2. PT focused on bed mobility, sitting balance, strengthening and transfers. OT focused on ADLs, functional sitting balance and UE strengthening. Mod A x2 supine <--> EOB then assist x2 to sit EOB for safety. Pt is progressing with sitting balance though activity tolerance continues to be minimal. Pt is able to complete upper body dressing with mod A and assist to stabilize self sitting EOB. Pt requested to go back to bed after therapy. Pt lying on R side. Call light/phone in reach. Daughter present in room. Therapy Code Descriptions/Definitions Functional Worth Measure: 0=Not Assessed/NA 4=Minimal Assistance 1=Total Assistance 5=Supervision or Setup 2=Maximal Assistance 6=Modified Worth 3=Moderate Assistance 7=Complete IndependenceSCALE: Activities may be completed with or without assistive devices. 3-Kxsnqxbsco-vszniai completes the activity by him/herself with no assistance from a helper. 5-Set-up or Clean-up Assistance-helper sets up or cleans up; patient completes activity. [place] assists only prior to or following the activity. 4-Supervision or Touching Assistance-helper provides verbal cues and/or touching/steadying and/or contact guard assistance as patient completes ac tivity. Assistance may be provided throughout the activity or intermittently. 3-Partial/Moderate Assistance-helper does LESS THAN HALF the effort. [place] lifts, holds or supports trunk or limbs, but provides less than half the effort. 2-Substantial/Maximal Assistance-helper does MORE THAN HALF the effort. [place] lifts or holds trunk or limbs and provides more than half the effort. 9-Yqmaibyqv-odelho does ALL the effort. Patient does none of the effort to complete the activity. Or, the assistance of 2 or more helpers is required for the patient to complete the activity. If activity was not attempted, code reason: 7-Patient Refused. 9-Not Applicable-not attempted and the patient did not perform the activity before the current illness, exacerbation or injury. 10-Not Attempted due to Environmental Limitations-(lack of equipment, weather restraints, etc.). 88-Not Attempted due to Medical Conditions or Safety Concerns. Upper Body Dressing (QC): 2 OT Short Term Goals Short Term Goals Time Frame: May 02, 2019 Eatin Oral hygiene: 4 Toileting hygiene: 3 Shower/bathe self: 3 Upper body dressin Lower body dressin Putting on/taking off footwear: 3 OT Planer Off Bearer Goals Residential Goals Time Frame: May 16, 2019 Eating (QC): 6 Oral Hygiene (QC): 6 Toileting Hygiene (QC): 5 Shower/Bathe Self (QC): 4 Upper Body Dressing (QC): 5 Lower Body Dressing (QC): 5 On/Off Footwear (QC): 5 Additional Goals: 1-Demonstrate ADL Tasks, 2-Verbalize Understanding, 3- ImproveStrength/José 1=Demonstrate adherence to instructed precautions during ADL tasks. 2=Patient will verbalize/demonstrate understanding of assistive devices/modifications for ADL. 3=Patient will improve strength/tolerance for activity to enable patient to perform ADL's. OT Education/Plan Problem List/Assessment Assessment: Decreased Activ Tolerance, Decreased Safety Aware, Decreased UE Strength, Dependent Transfers, Impaired Bed Mobility, Impaired Cognition, Impaired Coordination, Impaired Funct Balance, Impaired I ADL's, Impaired Self- Care Skills Discharge Recommendations Plan/Recommendations: Continue POC Treatment Plan/Plan of Care Patient would benefit from OT for education, treatment and training to promote independence in ADL's, mobility, safety and/or upper extremity function for ADL's. Plan of Care: ADL Retraining, Caregiver Training, Functional Mobility, Group Exercise/Act as Ind, UE Funct Exercise/Act Treatment Duration: May 16, 2019 Frequency: At least 5 of 7 days/Wk (IRF) Estimated Hrs Per Day: 1.5 hours per day Agreement: Yes Rehab Potential: Guarded Time/GCodes Start Time: 10:00 Stop Time: 11:00 Total Time Billed (hr/min): 60 Billed Treatment Time 1 visit-FA 4 (60 min) co-treat with PT 60 min GEOVANNI FLORES May 08, 2019 11:24
--- NOTE | 2019-05-08 11:52 | PM&R Progress Note ---
Subjective HPI/CC On Admission Date Seen by Provider: May 08, 2019 Time Seen by Provider: 12:00 Subjective/Events-last exam Slow progress to no progress Refusing to eat Pursuing facility that can manage TPN Very difficult situation and daughter is having difficulty since she states "it has been 3 months." No longer participating in therapies much More alert today Very slow decline in could be at risk for even more of a decline in decompensation Maintain supportive care Conferred with RN Check meds and labs Reviewed therapy notes Review of Systems General: Fatigue Gastrointestinal: Abdominal Pain Neurological: Confusion Objective Exam Vital Signs Vital Signs Date Time Temp Pulse Resp B/P (MAP) Pulse Ox O2 Delivery O2 Flow Rate FiO2 05/08/19 16:00 36.4 71 14 97/58 (71) 94 Nasal Cannula 2.00 Capillary Refill : Less Than 3 Seconds General Appearance: No Apparent Distress, Anxious, Chronically ill, Thin, Other HEENT: PERRL/EOMI Neck: Non Tender, Supple Respiratory: Chest Non Tender, Lungs Clear, Normal Breath Sounds, No Accessory Muscle Use, No Respiratory Distress Cardiovascular: Regular Rate, Rhythm, No Edema Gastrointestinal: Normal Bowel Sounds, No Organomegaly, No Pulsatile Mass, Non Tender, Soft Back: Normal Inspection, No CVA Tenderness, No Vertebral Tenderness Extremity: No Calf Tenderness Neurologic/Psychiatric: Alert, Oriented x3, Normal Mood/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 FIM Transfers Therapy Code Descriptions/Definitions Functional [place] Measure: 0=Not Assessed/NA 4=Minimal Assistance 1=Total Assistance 5=Supervision or Setup 2=Maximal Assistance 6=Modified [place] 3=Moderate Assistance 7=Complete IndependenceSCALE: Activities may be completed with or without assistive devices. 9-Yxqdkpgzbt-znxcebu completes the activity by him/herself with no assistance from a helper. 5-Set-up or Clean-up Assistance-helper sets up or cleans up; patient completes activity. [place] assists only prior to or following the activity. 4-Supervision or Touching Assistance-helper provides verbal cues and/or touching/steadying and/or contact guard assistance as patient completes activity. Assistance may be provided throughout the activity or intermittently. 3-Partial/Moderate Assistance-helper does LESS THAN HALF the effort. [place] lifts, holds or supports trunk or limbs, but provides less than half the effort. 2-Substantial/Maximal Assistance-helper does MORE THAN HALF the effort. [place] lifts or holds trunk or limbs and provides more than half the effort. 7-[place]-dounan does ALL the effort. Patient does none of the effort to complete the activity. Or, the assistance of 2 or more helpers is required for the patient to complete the activity. If activity was not attempted, code reason: 7-Patient Refused. 9-Not Applicable-not attempted and the patient did not perform the activity before the current illness, exacerbation or injury. 10-Not Attempted due to Environmental Limitations-(lack of equipment, weather restraints, etc.). 88-Not Attempted due to Medical Conditions or Safety Concerns. Roll Left to Right (QC): 2 Sit to Lying (QC): 2 Sit to Stand (QC): 1 Chair/Drv-pz-Ismgm Xfer(QC): 1 ([place] lift required) Car Transfer (QC): 88 Gait Training Does the Patient Walk?: No and Walking Goal NOT indicated Walk 10 feet (QC): 88 Walk 50 ft with 2 Turns(QC): 88 Walk 150 ft (QC): 88 Walking 10ft/uneven surface-QC: 88 Wheelchair Training Does the Pt Use a Wheelchair?: Yes Wheel 50 ft with 2 turns (QC): 88 Wheel 150 ft (QC): 88 Type of Wheelchair: Manual Stair Training 1 Step (curb) (QC): 88 4 Steps (QC): 88 12 Steps (QC): 88 Balance Picking up an Object (QC): 88 ADL-Treatment Eating (QC): 2 (Please see note.) Oral Hygiene (QC): 3 Shower/Bathe Self (QC): 1 Upper Body Dressing (QC): 2 Lower Body Dressing (QC): 1 On/Off Footwear (QC): 1 Toileting Hygiene (QC): 1 Toilet Transfer (QC): 88 Assessment/Plan Assessment and Plan Assess & Plan/Chief Complaint Assessment: 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 Diabetes mellitus Low albumin TPN required but weaning while increasing PO intake and initiated a calorie count 3 days ago which now she is refusing to eat History of respiratory failure Elevated liver enzymes due to cholestasis from TPN 4.5 last check Anemia completed iron infusions Confusion with undercurrent of dementia Decubitus ulcers Tachycardia consulted now resolved Plan: Inpatient rehab protocol TPN wean and increasing PO nutrition will start calorie count and fluid intake PO but refusing to eat now so likely this will be unsuccessful Wound care for pressure ulcers Wound vac managed by [place] and surgeons Air bed Monitor labs and checking in morning Iron infusions [place] lift and bedridden state Appreciate Cardiology for tachycardia management Iron infusions completed Dr Willett spoke to family Monday Refuses to eat now (1) Critical illness myopathy Status: Acute (2) Essential hypertension Status: Chronic (3) Abdominal pain (4) HLP (5) Headache Status: Acute (6) Perforated abdominal viscus Status: Acute (7) Postoperative abdominal pain Status: Acute (8) IDDM (insulin dependent diabetes mellitus) Status: Chronic YARON GALLAGHER DO May 08, 2019 11:52
--- NOTE | 2019-05-08 14:05 | Therapy Group Daily Note ---
Therapy Daily Group Note Patient Education Topic Other List Below (setting new goals) Exercises LE Seated Exercise, UE Exercise Session Ratio (pt:therapist): 4:1 Goal of Session: Other (list) (social interaction, setting goals, critical thinking ) Goal Met for this Session: Yes Pt Benefit of Group: Recognition of Peers, Socialization Other/Notes Pt. participated in team/group PT OT session. Pt. was TRFd by w/c and in out bed via [place] lift.. Pts. all introduced themselves and shared New Yrs resolutions they had made in the past and whether they had kept them or not. Pts. enjoyed a "dirty Mirela" type gift exchange involving reading and problem solving via number drawing and reading directions on board. Pts were all required to coordinate with one another to follow directions for game , often exchanging, moving gifts to left or right or passing etc. Pts all participated as well in seated U&L extremity exercises. Pt. to room after group with needs met, back in bed and rolled to side with pillow positioning for skin safety mora at hand Start Time: 12:30 Stop Time: 13:45 Total Billed Treatment Time: 75 Total Billed Treatment 1,GRP VIKTOR GARCIA PTA May 08, 2019 14:05 GEOVANNI FLORES May 09, 2019 07:15
[2019-05-08 16:00] VITALS: BP 97/58
--- NOTE | 2019-05-08 16:25 | Cardiology Progress Note ---
Cardiology SOAP Progress Note Subjective: No cardiac complaints. Objective: I&O/Vital Signs 05/08/19 05/08/19 05/08/19 05:50 08:10 16:00 Temp 36.8 36.4 Pulse 84 71 Resp 18 14 B/P (MAP) 121/60 (80) 97/58 (71) Pulse Ox 93 94 O2 Delivery Nasal Cannula Nasal Cannula Nasal Cannula O2 Flow Rate 3.00 2.00 2.00 05/08/19 00:00 Intake Total 2050 ml Output Total 700 ml Balance 1350 ml Weight (Pounds): 160 Weight (Ounces): 0.0 Weight (Calculated Kilograms): [id number] Constitutional: AAO x 3, well-developed, well-nourished Respiratory: chest expansion is symmetric, chest is bilaterally symmetric, other Cardiovascular: regular rate-rhythm, S1 and S2 Gastrointestional: other Extremities: no lower extremity edema bilateral Neurologic/Psychiatric: no motor/sensory deficits, alert, normal mood/affect, oriented x 3, grossly intact Skin: normal color Results/Procedures: Labs Laboratory Tests 05/07/19 17:45: Glucometer 116H 05/08/19 00:07: Glucometer 129H 05/08/19 05:20: Glucometer 155H 05/08/19 12:03: Glucometer 129H A/P: Assessment/Dx: PAF CAD HTN HLP Plan: H/O multiple abdominal surgeries, had bowel resection and diverting ileostomy, last procedure was done on March 13, 2019, followed by surgical services, recent transfer from [place] on 04-18-19 Paroxysmal atrial fibrillation, maintained on Lopressor, Eliquis. Continue to monitor. Labile hypertension, blood pressure well controlled at this time, continue to monitor. H/O acute renal insufficiency, continue to monitor renal function. Coronary artery disease - Most recent cardiac catheterization done April 2018 revealed mild ectasia in the proximal LAD with mild disease in the mid LAD, small vessel disease distally, mild ectasia in the proximal circumflex artery and 40-50 percent stenosis in the mid right coronary artery, nonobstructive disease History of colon cancer, history of colon resection and colostomy in the past, followed by Dr. Branham Hyperlipidemia- continue to monitor lipids as outpatient. Carotid artery stenosis, bilateral nonobstructive disease per carotid duplex done December 2018, continue to monitor. History of thyroid nodules noted on ultrasound, followed by Dr. Branham and Dr. Simmons Diabetes mellitus Family history of coronary artery disease. Obstructive sleep apnea, intolerance to CPAP History of appendectomy, kidney stones, hysterectomy. Breast biopsy. Anemia, continue to monitor, management per Dr Hand Thank you for your consultation. Please call me if you have any questions. Martha Spear MD, FACP, FACC, FSCAI, FHRS, CCDS Interventional Cardiology Cardiac Electrophysiology Vascular Medicine and Endovascular Interventions Gumaro SPEAR MD May 08, 2019 16:25
[2019-05-08] MEDS: [UNRECOGNIZED DRUG - OTHER] IV SCH ×11 (17:28)
[2019-05-08] MEDS: POTASSIUM ACETATE IV SCH ×11 (17:28)
[2019-05-08] MEDS: SODIUM ACETATE IV SCH ×11 (17:28)
[2019-05-08 20:04] VITALS: BP 111/62
[2019-05-09 06:10] VITALS: BP 135/68
[2019-05-09] MEDS: inSUlin ASPART (NovoLOG) 1 UNIT/0.01 ML (CHARGE PER UNIT) SC SCH ×3 (06:11→18:37)
[2019-05-09] MEDS: CATHETER FLUSH 10 ML SYR IV SCH ×3 (06:11→19:48)
[2019-05-09] MEDS: VISC LIDOCAINE/ANTACID/DIPHENHYDRAMINE 1:1:1 120 ML PO SCH ×12 (08:55→19:48)
[2019-05-09] MEDS: meTOprolol TARTRATE 50 MG (LOPRESSOR) TAB PO SCH ×2 (08:55→19:48)
[2019-05-09] MEDS: FLUTICASONE NASAL SPRAY (FLONASE) 16 GM BTL NS SCH (08:55)
[2019-05-09] MEDS: APIXABAN 5 MG (ELIQUIS) TABLET PO SCH ×2 (08:55→19:48)
[2019-05-09] MEDS: FAMOTIDINE 20 MG (PEPCID) TABLET PO SCH (08:55)
[2019-05-09] MEDS: ENALAPRIL 5 MG (VASOTEC) TAB PEG SCH (08:55)
[2019-05-09] MEDS: OXYBUTYNIN (DITROPAN) 5 MG TAB PO SCH ×2 (08:55→19:48)
[2019-05-09] MEDS: SERTRALINE 50 MG (ZOLOFT) TABLET PO SCH (08:55)
[2019-05-09] MEDS: NYSTATIN ORAL SUSP 5 ML UDC PO SCH ×4 (08:55→19:49)
[2019-05-09 08:57] VITALS: BP 150/71
--- NOTE | 2019-05-09 09:01 | NUR ---
Medications crushed and mixed in Vanilla Pudding, as Patient has taken before. Patient took two very small bites and refused the rest of the medication.
--- NOTE | 2019-05-09 10:57 | PM&R Progress Note ---
Subjective HPI/CC On Admission Date Seen by Provider: May 09, 2019 Time Seen by Provider: 10:00 Subjective/Events-last exam Refusing to eat again Confused says she was up walking around all night and she is bed ridden Very difficult situation Very slow decline in could be at risk for even more of a decline in decompensation Maintain supportive care Conferred with RN Check meds and labs Reviewed therapy notes Review of Systems Gastrointestinal: Abdominal Pain Neurological: Confusion Objective Exam Vital Signs Vital Signs Date Time Temp Pulse Resp B/P (MAP) Pulse Ox O2 Delivery O2 Flow Rate FiO2 05/09/19 20:21 Nasal Cannula 2.00 05/09/19 16:10 36.6 76 18 124/64 (84) 94 Capillary Refill : Less Than 3 Seconds General Appearance: No Apparent Distress, Anxious, Chronically ill, Thin, Other HEENT: PERRL/EOMI Neck: Non Tender, Supple Respiratory: Chest Non Tender, Lungs Clear, Normal Breath Sounds, No Accessory Muscle Use, No Respiratory Distress Cardiovascular: Regular Rate, Rhythm, No Edema Gastrointestinal: Normal Bowel Sounds, No Organomegaly, No Pulsatile Mass, Non Tender, Soft Back: Normal Inspection, No CVA Tenderness, No Vertebral Tenderness Extremity: No Calf Tenderness Neurologic/Psychiatric: Alert, Oriented x3, Normal Mood/Affect, telephonic nurse II-XII Norm as Tested, Disoriented, Motor Weakness Skin: Normal Color, Warm/Dry Results/Procedures Lab Patient resulted labs reviewed. FIM Transfers Therapy Code Descriptions/Definitions Functional [place] Measure: 0=Not Assessed/NA 4=Minimal Assistance 1=Total Assistance 5=Supervision or Setup 2=Maximal Assistance 6=Modified [place] 3=Moderate Assistance 7=Complete IndependenceSCALE: Activities may be completed with or without assistive devices. 0-Xquhjfhtkl-cxgqtbk completes the activity by him/herself with no assistance from a helper. 5-Set-up or Clean-up Assistance-helper sets up or cleans up; patient completes activity. [place] assists only prior to or following the activity. 4-Supervision or Touching Assistance-helper provides verbal cues and/or touching/steadying and/or contact guard assistance as patient completes activity. Assistance may be provided throughout the activity or intermittently. 3-Partial/Moderate Assistance-helper does LESS THAN HALF the effort. [place] lifts, holds or supports trunk or limbs, but provides less than half the effort. 2-Substantial/Maximal Assistance-helper does MORE THAN HALF the effort. [place] lifts or holds trunk or limbs and provides more than half the effort. 8-Cipwlgecn-ltixyg does ALL the effort. Patient does none of the effort to complete the activity. Or, the assistance of 2 or more helpers is required for the patient to complete the activity. If activity was not attempted, code reason: 7-Patient Refused. 9-Not Applicable-not attempted and the patient did not perform the activity before the current illness, exacerbation or injury. 10-Not Attempted due to Environmental Limitations-(lack of equipment, weather restraints, etc.). 88-Not Attempted due to Medical Conditions or Safety Concerns. Roll Left to Right (QC): 2 Sit to Lying (QC): 2 Sit to Stand (QC): 1 Chair/Nug-mc-Zjgxo Xfer(QC): 1 (glenroy lift required) Car Transfer (QC): 88 Gait Training Does the Patient Walk?: No and Walking Goal NOT indicated Walk 10 feet (QC): 88 Walk 50 ft with 2 Turns(QC): 88 Walk 150 ft (QC): 88 Walking 10ft/uneven surface-QC: 88 Wheelchair Training Does the Pt Use a Wheelchair?: Yes Wheel 50 ft with 2 turns (QC): 88 Wheel 150 ft (QC): 88 Type of Wheelchair: Manual Stair Training 1 Step (curb) (QC): 88 4 Steps (QC): 88 12 Steps (QC): 88 Balance Picking up an Object (QC): 88 ADL-Treatment Eating (QC): 2 (Please see note.) Oral Hygiene (QC): 3 Shower/Bathe Self (QC): 1 Upper Body Dressing (QC): 2 Lower Body Dressing (QC): 1 On/Off Footwear (QC): 1 Toileting Hygiene (QC): 1 Toilet Transfer (QC): 88 Assessment/Plan Assessment and Plan Assess & Plan/Chief Complaint Assessment: 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 Diabetes mellitus Low albumin TPN required but weaning while increasing PO intake and initiated a calorie count 3 days ago which now she is refusing to eat History of respiratory failure Elevated liver enzymes due to cholestasis from TPN 4.5 last check Anemia completed iron infusions Confusion with undercurrent of dementia Decubitus ulcers Tachycardia consulted now resolved Plan: Inpatient rehab protocol TPN wean and increasing PO nutrition will start calorie count and fluid intake PO but refusing to eat now so likely this will be unsuccessful Wound care for pressure ulcers Wound vac managed by Sunny and surgeons Air bed Monitor labs and checking in morning Iron infusions [place] lift and bedridden state Appreciate Cardiology for tachycardia management Iron infusions completed Dr Willett spoke to family Monday Refuses to eat now (1) Critical illness myopathy Status: Acute (2) Essential hypertension Status: Chronic (3) Abdominal pain (4) HLP (5) Headache Status: Acute (6) Perforated abdominal viscus Status: Acute (7) Postoperative abdominal pain Status: Acute (8) IDDM (insulin dependent diabetes mellitus) Status: Chronic YARON GALLAGHER DO May 09, 2019 10:57
--- NOTE | 2019-05-09 11:09 | Physical Therapy Daily Note ---
PT Daily Note-Current Subjective Pt laying Supine upon arrival, daughter is present. Pt agrees to PT with encouragement from SENIOR MATERIALS PLANNER and daughter. Pain Location Body Site: Abdomen Comment: Pt doesn't rate but reports pain in back and abdomen. Mental Status Patient Orientation: Person, Confused, Place Attachments: Colostomy/Ileostomy, Oxygen, Wing Catheter, Other-See Comments (Wound Vac.) Transfers SCALE: Activities may be completed with or without assistive devices. 1-Cvvgtptoem-gpdbuku completes the activity by him/herself with no assistance from a helper. 5-Set-up or Clean-up Assistance-helper sets up or cleans up; patient completes activity. [place] assists only prior to or following the activity. 4-Supervision or Touching Assistance-helper provides verbal cues and/or touching/steadying and/or contact guard assistance as patient completes activity. Assistance may be provided throughout the activity or intermittently. 3-Partial/Moderate Assistance-helper does LESS THAN HALF the effort. [place] lifts, holds or supports trunk or limbs, but provides less than half the effort. 2-Substantial/Maximal Assistance-helper does MORE THAN HALF the effort. [place] lifts or holds trunk or limbs and provides more than half the effort. 7-Sqhggowvg-turrgq does ALL the effort. Patient does none of the effort to complete the activity. Or, the assistance of 2 or more helpers is required for the patient to complete the activity. If activity was not attempted, code reason: 7-Patient Refused. 9-Not Applicable-not attempted and the patient did not perform the activity before the current illness, exacerbation or injury. 10-Not Attempted due to Environmental Limitations-(lack of equipment, weather restraints, etc.). 88-Not Attempted due to Medical Conditions or Safety Concerns. Roll Left & Right (QC): 1 Sit to Lying (QC): 1 Lying to Sitting/Side of Bed(Q: 1 Chair/Fql-rp-Qenuu Xfer(QC): 1 Weight Bearing Full Weight Bearing Full Weight Bearing Exercises Supine Ex: Ankle pumps, Quad Set, Heel Slides, Hip abd/add Supine Reps: 15 Treatments Pt completes Supine Ex in bed with SENIOR MATERIALS PLANNER before OT arrives for co-treat. Pt. participated in co-treatment with OT/PT due to need of skilled assistance x 2. Pt. agrees to treatment, but then requires max cues and encouragement to participate. OT attempted to engage pt. in bilateral UE exercises, but pt. requires constant cues to sequence and complete each exercise. Will often close eyes. PT facilitated transfer training and pt. is encouraged to participate in each step of transfer to side of bed. Max x 2 to roll side to side. Dependent x 2 to transfer supine-sit. Pt. immediately begins to request to lay back down. Max cues and encouragement to sit on side of bed. Pt. able to sit on side of bed with dependent x 2 assist. Sat approximately 15 minutes. Therapy put on pt's favorite music, and attempted to engage in other conversation. Pt. became adamant to lay down. Transferred sit-supine with dependent assist x 2. Pt. positioned and then therapy rolled pt. side to side to position glenroy sling under her. Performed transfer to chair via glenroy lift. All needs met. Co-treat is necessary due to skill of two clinicians needed due to pt's activity tolerance and fatigue level. PT works on LE strengthening, transfers, sitting balance and bed mobility while OT works on UE strengthening, hand placement during transfers as well as ADLs. Assessment Current Status: Fair Progress Pt continues to demonstrates fatigue during Rx. Frequent RB needed. Pt does not tolerate sitting for long before begging to return to laying in bed. PT Short Term Goals Short Term Goals Time Frame: Apr 25, 2019 Roll Left & Right: 3 (mod A) Sit to lyin (modA) Lying to sitting on side of be: 3 (modA) Sit to stand: 3 (modA) Chair/hhu-jc-ejbdv transfer: 3 (modA) PT Multimedia Designer Goals Multimedia Designer Goals PT Multimedia Designer Goals Time Frame: May 09, 2019 Roll Left & Right (QC): 3 (Ceht) Sit to Lying (QC): 3 (Chet) Lying-Sitting on Side/Bed(QC): 3 (Chet) Sit to Stand (QC): 3 (Chet) Chair/Olh-rx-Caicq Xfer(QC): 3 (Chet) Toilet Transfer (QC): 3 (Chet) Car Transfer (QC): 3 (Chet) Does the Patient Walk: No and Walking Goal NOT indicated Walk 10 feet (QC): 88 Walk 50ft with 2 Turns (QC): 88 Walk 150 ft (QC): 88 Walking 10ft on Uneven Surface: 88 1 Step (curb) (QC): 88 4 Steps (QC): 88 12 Steps (QC): 88 Picking up an Object (QC): 88 Does the Pt use WC or Scooter?: Yes Wheel 50 feet with 2 turns (QC: 4 (SBA) Type: Manual Wheel 150 feet: 4 (SBA) Type: Manual PT Plan Problem List Problem List: Activity Tolerance, Functional Strength, Safety, Balance, Gait, Transfer, Bed Mobility, ROM Treatment/Plan Treatment Plan: Continue Plan of Care Treatment Plan: Bed Mobility, Concurrent Therapy, Education, Functional Activity José, Functional Strength, Group Therapy, Gait, Safety, Therapeutic Exercise, Transfers Treatment Duration: May 09, 2019 Frequency: At least 5 of 7 days/Wk (IRF) Estimated Hrs Per Day: 1.5 hours per day Patient and/or Family Agrees t: Yes Safety Risks/Education Patient Education: Transfer Techniques, Correct Positioning, Safety Issues Teaching Recipient: Patient, Family Teaching Methods: Discussion Response to Teaching: Reinforcement Needed Time/GCodes Time In: 1000 Time Out: 1100 Total Billed Treatment Time: 60 Total Billed Treatment 1, EX x2 (30m) & FA x2 (30m) Co-treat w/OT for 45m ([id number]) BRITTANY HARTMAN PTA May 09, 2019 11:09
--- NOTE | 2019-05-09 11:57 | Speech Therapy Daily Note ---
Speech Daily Progress Note Subjective Date Seen by Provider: May 09, 2019 Time Seen by Provider: 00:30 Patient resting in her bed. Patient c/o pain and nausea. Objective Patient conversed about her needs. Patient is noted to get short of breath and began shaking during our session. Assessment Assessment Current Status: Poor Progress Treatment Plan Continue Plan of Care Speech Short Term Goals Short Term Goals Short Term Goals 1) Patient will complete memory tasks related to her daily needs at 90% or greater with minimal cues. 2) Patient will complete problem solving tasks related to her daily needs at 90% or greater with minimal cues. 3) Patient will complete safety awareness tasks related to her daily needs at 90% or greater with minimal cues. Speech Nursing Home Goals Sediment Remediation Consultant Goals Patient will improve cognitive-communication necessary for safety and daily living tasks with minimal assist. Speech-Plan Patient/Family Goals Patient/Family Goals: Patient's care team and family have been working on transfer to another facility. Discharge has not been clarified at this time. Treatment Plan Speech Therapy Treatment Plan: Continue Plan of Care Patient is regressing with her potential progress. Treatment Duration: May 17, 2019 Frequency: 5 times per week Estimated Hrs Per Day: .5 hour per day Rehab Potential: Guarded Barriers to Learning: Patient's medical status Pt/Family Agrees to Plan: Yes Safety Risks/Education Teaching Recipient: Patient Teaching Methods: Discussion Response to Teaching: Verbalize Understanding Education Topics Provided: Communication of wants/needs Time Speech Therapy Time In: 09:30 Speech Therapy Time Out: 10:00 Total Billed Time: 30 Billed Treatment Time 1, BUCKY Murray May 09, 2019 11:57
--- NOTE | 2019-05-09 12:52 | NUR ---
CONCURRENT NOTE/DISCHARGE PLANNING Continued pursuit of next step facility for patient complex care plan. Referral completed with [facility] [place] in light of patient level of acuity, decompensation, and inability to actively participate in rehabilitation until overall physical status improves. SUMMARY: Nursing Care Partner reached out to [facility] as well as [facility]Jamee Romero for potential updated resources for skilled or retirement care for TPN and wound vac. Nursing Care Partner then spoke with Shwetha at [facility] who indicated the vac is less of an issue than the TPN. Shwetha did indicate the patient would likely be declined because of the TPN but that a referral could be sent if desired. This referral would be reviewed within their network of [facility], and [facility]. Waiting for acceptance/denial from LTAC prior to continued SNF referrals that are less likely to be in the affirmative. Those facilities are in [place], patient has applied for [facility]. Additionally, patient is near the end of Medicare A days and will then be forced to use [facility]. Funding becoming a facet of the challenges. Daughter Jeni at bedside and updated of LTAC referral as well as that engineering technical writer/team continue to seek the best option for patient as well as her support system.
--- NOTE | 2019-05-09 13:36 | Occupational Ther Daily Note ---
OT Current Status-Daily Note Subjective Pt. grimaces with movement and reports pain in abdomen, but does not report pain level. Pain medication already given. Mental Status/Objective Patient Orientation: Unable to Assess Attachments: Colostomy/Ileostomy, Wing Catheter, IV, Oxygen ADL-Treatment Therapy Code Descriptions/Definitions Functional [place] Measure: 0=Not Assessed/NA 4=Minimal Assistance 1=Total Assistance 5=Supervision or Setup 2=Maximal Assistance 6=Modified [place] 3=Moderate Assistance 7=Complete IndependenceSCALE: Activities may be completed with or without assistive devices. 8-Xrrgbgvfgb-fajyvvt completes the activity by him/herself with no assistance from a helper. 5-Set-up or Clean-up Assistance-helper sets up or cleans up; patient completes activity. [place] assists only prior to or following the activity. 4-Supervision or Touching Assistance-helper provides verbal cues and/or touching/steadying and/or contact guard assistance as patient completes activity. Assistance may be provided throughout the activity or intermittently. 3-Partial/Moderate Assistance-helper does LESS THAN HALF the effort. [place] lifts, holds or supports trunk or limbs, but provides less than half the effort. 2-Substantial/Maximal Assistance-helper does MORE THAN HALF the effort. [place] lifts or holds trunk or limbs and provides more than half the effort. 0-Clikdgced-wftpnb does ALL the effort. Patient does none of the effort to complete the activity. Or, the assistance of 2 or more helpers is required for the patient to complete the activity. If activity was not attempted, code reason: 7-Patient Refused. 9-Not Applicable-not attempted and the patient did not perform the activity before the current illness, exacerbation or injury. 10-Not Attempted due to Environmental Limitations-(lack of equipment, weather restraints, etc.). 88-Not Attempted due to Medical Conditions or Safety Concerns. Eating (QC): 7 (Pt. declines all attempts for OT to assist with eating or drinking.) On/Off Footwear: 1 Toileting Hygiene (QC): 1 Pt. participated in co-treatment with OT/PT due to need of skilled assistance x 2. Pt. agrees to treatment, but then requires max cues and encouragement to participate. OT attempted to engage pt. in bilateral UE exercises, but pt. requires constant cues to sequence and complete each exercise. Will often close eyes. PT facilitated transfer training and pt. is encouraged to participate in each step of transfer to side of bed. Max x 2 to roll side to side. Dependent x 2 to transfer supine-sit. Pt. immediately begins to request to lay back down. Max cues and encouragement to sit on side of bed. Pt. able to sit on side of bed with dependent x 2 assist. Sat approximately 15 minutes. Therapy put on pt's favorite music, and attempted to engage in other conversation. Pt. became adamant to lay down. Transferred sit-supine with dependent assist x 2. Pt. positioned and then therapy rolled pt. side to side to position glenroy sling under her. Performed transfer to chair via glenroy lift. All needs met. Education OT Patient Education: Correct positioning, Exercise program, Modified ADL techniques, Progress toward Goal/Update tx plan, Purpose of tx/functional activities, Reviewed precautions, Rehab process, Transfer techniques Teaching Recipient: Patient Teaching Methods: Demonstration, Discussion Response to Teaching: Unable to Return Demonstration, Unable to Comprehend, Reinforcement Needed OT Short Term Goals Short Term Goals Time Frame: May 02, 2019 Eatin Oral hygiene: 4 Toileting hygiene: 3 Shower/bathe self: 3 Upper body dressin Lower body dressin Putting on/taking off footwear: 3 OT Development Planner Goals [facility] Goals Time Frame: May 16, 2019 Eating (QC): 6 Oral Hygiene (QC): 6 Toileting Hygiene (QC): 5 Shower/Bathe Self (QC): 4 Upper Body Dressing (QC): 5 Lower Body Dressing (QC): 5 On/Off Footwear (QC): 5 Additional Goals: 1-Demonstrate ADL Tasks, 2-Verbalize Understanding, 3- ImproveStrength/José 1=Demonstrate adherence to instructed precautions during ADL tasks. 2=Patient will verbalize/demonstrate understanding of assistive devices/modifications for ADL. 3=Patient will improve strength/tolerance for activity to enable patient to perform ADL's. OT Education/Plan Problem List/Assessment Assessment: Decreased Activ Tolerance, Decreased UE Strength, Dependent Transfers, Impaired Bed Mobility, Impaired Cognition, Impaired Funct Balance, Impaired I ADL's, Impaired Self-Care Skills, Restricted Funct UE ROM Discharge Recommendations Plan/Recommendations: Continue POC Therapy Discharge Recommendati: 24 Hour Supervision Treatment Plan/Plan of Care Treatment,Training & Education: Yes Patient would benefit from OT for education, treatment and training to promote independence in ADL's, mobility, safety and/or upper extremity function for ADL's. Plan of Care: ADL Retraining, Caregiver Training, Functional Mobility, Group Exercise/Act as Ind, UE Funct Exercise/Act Treatment Duration: May 16, 2019 Frequency: At least 5 of 7 days/Wk (IRF) Estimated Hrs Per Day: 1.5 hours per day Agreement: Yes Rehab Potential: Guarded Time/GCodes Start Time: 10:15 Stop Time: 11:00 Total Time Billed (hr/min): 45 Billed Treatment Time 1, FA x 3 HEMANT MERCEDES OT May 09, 2019 13:36
--- NOTE | 2019-05-09 13:55 | Occupational Ther Daily Note ---
OT Current Status-Daily Note Subjective Pt. grimaces throughout treatment but does not verbalize pain. Appearance Pt. up in reclining chair. Agrees to transfer back to bed. Mental Status/Objective Patient Orientation: Confused ADL-Treatment Therapy Code Descriptions/Definitions Functional Hale Measure: 0=Not Assessed/NA 4=Minimal Assistance 1=Total Assistance 5=Supervision or Setup 2=Maximal Assistance 6=Modified Hale 3=Moderate Assistance 7=Complete IndependenceSCALE: Activities may be completed with or without assistive devices. 1-Ipocjnsjaj-jvjxhgp completes the activity by him/herself with no assistance from a helper. 5-Set-up or Clean-up Assistance-helper sets up or cleans up; patient completes activity. [place] assists only prior to or following the activity. 4-Supervision or Touching Assistance-helper provides verbal cues and/or touching/steadying and/or contact guard assistance as patient completes activity. Assistance may be provided throughout the activity or intermittently. 3-Partial/Moderate Assistance-helper does LESS THAN HALF the effort. [place] lifts, holds or supports trunk or limbs, but provides less than half the effort. 2-Substantial/Maximal Assistance-helper does MORE THAN HALF the effort. [place] lifts or holds trunk or limbs and provides more than half the effort. 2-Rwggncsgk-iqbffe does ALL the effort. Patient does none of the effort to complete the activity. Or, the assistance of 2 or more helpers is required for the patient to complete the activity. If activity was not attempted, code reason: 7-Patient Refused. 9-Not Applicable-not attempted and the patient did not perform the activity before the current illness, exacerbation or injury. 10-Not Attempted due to Environmental Limitations-(lack of equipment, weather restraints, etc.). 88-Not Attempted due to Medical Conditions or Safety Concerns. Partial co-treatment performed with PT/OT due to level of skill needed for dependent transfer. Transferred from reclining chair to bed via glenroy lift, with second assist for line management and positioning. Once pt. positioned in bed with dependent assistance x 2, PT left room and OT encouraged pt. to eat. Pt. declines all attempts at food, but does agree to drinks of Glucerna. Pt. closes eyes and will not hold container herself, but does take 4 small sips when OT places this to her lips. Pt. grimaces with each swallow, but then states that she is not in pain and it tastes "okay." OT brushes pt. hair and attempts to make her as comfortable as possible. All needs met. Education OT Patient Education: Correct positioning, Modified ADL techniques, Progress toward Goal/Update tx plan, Purpose of tx/functional activities, Reviewed precautions, Rehab process, Transfer techniques Teaching Recipient: Patient Teaching Methods: Demonstration, Discussion Response to Teaching: Unable to Return Demonstration, Unable to Comprehend, Reinforcement Needed OT Short Term Goals Short Term Goals Time Frame: May 02, 2019 Eatin Oral hygiene: 4 Toileting hygiene: 3 Shower/bathe self: 3 Upper body dressin Lower body dressin Putting on/taking off footwear: 3 OT Sales And Service Engineer Goals Sales And Service Engineer Goals Time Frame: May 16, 2019 Eating (QC): 6 Oral Hygiene (QC): 6 Toileting Hygiene (QC): 5 Shower/Bathe Self (QC): 4 Upper Body Dressing (QC): 5 Lower Body Dressing (QC): 5 On/Off Footwear (QC): 5 Additional Goals: 1-Demonstrate ADL Tasks, 2-Verbalize Understanding, 3- ImproveStrength/José 1=Demonstrate adherence to instructed precautions during ADL tasks. 2=Patient will verbalize/demonstrate understanding of assistive devices/mod ifications for ADL. 3=Patient will improve strength/tolerance for activity to enable patient to perform ADL's. OT Education/Plan Problem List/Assessment Assessment: Decreased Activ Tolerance, Dependent Transfers, Impaired Bed Mobility, Impaired Funct Balance, Impaired I ADL's, Impaired Self-Care Skills Discharge Recommendations Plan/Recommendations: Continue POC Therapy Discharge Recommendati: 24 Hour Supervision Treatment Plan/Plan of Care Treatment,Training & Education: Yes Patient would benefit from OT for education, treatment and training to promote independence in ADL's, mobility, safety and/or upper extremity function for ADL's. Plan of Care: ADL Retraining, Caregiver Training, Functional Mobility, Group Exercise/Act as Ind, UE Funct Exercise/Act Treatment Duration: May 16, 2019 Frequency: At least 5 of 7 days/Wk (IRF) Estimated Hrs Per Day: 1.5 hours per day Agreement: Yes Rehab Potential: Guarded Time/GCodes Start Time: 13:00 Stop Time: 13:30 Total Time Billed (hr/min): 30 Billed Treatment Time 1, FA x 15minutes, ADL x 15minutes HEMANT MERCEDES OT May 09, 2019 13:55
[2019-05-09] MEDS: ONDANSETRON 4 MG/2 ML (SDV) Z0FRAN IV PRN (14:01)
--- NOTE | 2019-05-09 14:03 | NUR ---
CONCURRENT NOTE Confirmed that [facility] received referral, they are checking benefits and eligibility and will update typewriter ribbon winder in a.m. regarding possible admit. Referral completed with SNFs [facility] and [facility] and [facility]. Per healthcare resources in [place] these are the only facilities in that area who may accept TPN. Await confirmation/denial re patient care plan. Addendum: 05/09/19 at 1452 by BROOKLYNN DE LEON SS Continuing intermittent conversations with daughter/DPPASQUALE Ngo. Fully updated about all referrals made this date. Depending on results of all outgoing referrals, continue to seek most appropriate care environment.
--- NOTE | 2019-05-09 14:03 | NUR ---
"RD ASSESSMENT PMHx: HTN; hypercholesterolemia; GERD; DM; ileostomy; multiple colon perforations PT INTERACTION: Pt was awake and pleasant during nutrition follow-up. Note family present at bedside. Pt states she has been eating poorly since last assessment. Note pt currently on nocturnal TPN feeds, providing 1670 kcal (21 kcal/kg), and 80 g Pro (1.0 g Pro/kg), per chart review. Note avg PO intake of <10% x3d, per chart review. Pt states recent episodes of nausea, but no vomiting since last assessment. Pt staes ostomy output is good. Note pt has had no wt changes since last assessment, per chart review. Note pt has wound present on mid abdomen, per chart review. ABNORMAL NUTRITION-RELATED LAB VALUES TAKEN 05/06 LOW: Ca 8.1; Pro 6.0; alb 1.7 HIGH: BUN 88; glu 142; bili 4.2; AST 81; alkphos 166 Est. kcal needs: 4335-6471 kcal | 20-25 kcal/kg Est. Pro needs: 77-92 g Pro | 1.0-1.2 g Pro/kg PES STATEMENT: Inadequate oral intake (NI-2.1) related to loss of appetite | nausea as evidenced by pt interview | avg PO intake <10% x3d Inadequate protein intake (NI-5.6.1) related to increased protein needs as evidenced by wounds (mid abdomen) INTERVENTION: Continue with current TPN order of nocturnal feeds providing 1670 kcal (21 kcal/kg) and 80 g Pro (1.0 g Pro/kg). Continue with current diet order of DYS1 Pureed diet. Encouraged pt to eat when able. Will continue to follow and reassess as pt needs and status change. MONITOR/EVALUATE: PO Intake; Plan of Care; Hydration Status; Weight Status; Lab Values Ambrose Cuenca, MS, RD, LD"
--- NOTE | 2019-05-09 14:25 | Physical Therapy Daily Note ---
PT Daily Note-Current Subjective Pt sitting up in recliner upon arrival. Pt agreed to PT/OT co-treat to transfer pt back to bed. Skill of 2 clinicians is needed due to pt's lack of activity tolerance as well as safety of transfer. Mental Status Patient Orientation: Person, Confused, Place Attachments: Colostomy/Ileostomy, Oxygen, Wing Catheter, Other-See Comments (Wound Vac.) Transfers SCALE: Activities may be completed with or without assistive devices. 2-Smlqirfjdd-rltosmx completes the activity by him/herself with no assistance from a helper. 5-Set-up or Clean-up Assistance-helper sets up or cleans up; patient completes activity. [place] assists only prior to or following the activity. 4-Supervision or Touching Assistance-helper provides verbal cues and/or touching/steadying and/or contact guard assistance as patient completes activity. Assistance may be provided throughout the activity or intermittently. 3-Partial/Moderate Assistance-helper does LESS THAN HALF the effort. [place] lifts, holds or supports trunk or limbs, but provides less than half the effort. 2-Substantial/Maximal Assistance-helper does MORE THAN HALF the effort. [place] lifts or holds trunk or limbs and provides more than half the effort. 0-Mawrknmax-gtnasi does ALL the effort. Patient does none of the effort to complete the activity. Or, the assistance of 2 or more helpers is required for the patient to complete the activity. If activity was not attempted, code reason: 7-Patient Refused. 9-Not Applicable-not attempted and the patient did not perform the activity before the current illness, exacerbation or injury. 10-Not Attempted due to Environmental Limitations-(lack of equipment, weather restraints, etc.). 88-Not Attempted due to Medical Conditions or Safety Concerns. Roll Left & Right (QC): 1 Sit to Lying (QC): 1 Chair/Vpl-vx-Lolyt Xfer(QC): 1 Weight Bearing Full Weight Bearing Full Weight Bearing Treatments UROLOGY PHYSICIAN ASSISTANT assists OT to use Chey lift to transfer pt from recliner to Supine in bed. Chey lift sling is removed and pt is repositioned in bed with all needs met. UROLOGY PHYSICIAN ASSISTANT departs at this time while OT continues to work with pt. Assessment Current Status: Poor Progress Pt reports fatigue and discomfort with transfers and assisted bed mobility. PT Short Term Goals Short Term Goals Time Frame: Apr 25, 2019 Roll Left & Right: 3 (mod A) Sit to lyin (modA) Lying to sitting on side of be: 3 (modA) Sit to stand: 3 (modA) Chair/lfl-nm-zyidm transfer: 3 (modA) PT Shelter Goals Seo Consultant Goals PT Seo Consultant Goals Time Frame: May 09, 2019 Roll Left & Right (QC): 3 (Chet) Sit to Lying (QC): 3 (Chet) Lying-Sitting on Side/Bed(QC): 3 (Chet) Sit to Stand (QC): 3 (Chet) Chair/Ity-ns-Ofncd Xfer(QC): 3 (Chet) Toilet Transfer (QC): 3 (Chet) Car Transfer (QC): 3 (Chet) Does the Patient Walk: No and Walking Goal NOT indicated Walk 10 feet (QC): 88 Walk 50ft with 2 Turns (QC): 88 Walk 150 ft (QC): 88 Walking 10ft on Uneven Surface: 88 1 Step (curb) (QC): 88 4 Steps (QC): 88 12 Steps (QC): 88 Picking up an Object (QC): 88 Does the Pt use WC or Scooter?: Yes Wheel 50 feet with 2 turns (QC: 4 (SBA) Type: Manual Wheel 150 feet: 4 (SBA) Type: Manual PT Plan Problem List Problem List: Activity Tolerance, Functional Strength, Safety, Balance, Gait, Transfer, Bed Mobility, ROM Treatment/Plan Treatment Plan: Continue Plan of Care Treatment Plan: Bed Mobility, Concurrent Therapy, Education, Functional Activity José, Functional Strength, Group Therapy, Gait, Safety, Therapeutic Exercise, Transfers Treatment Duration: May 09, 2019 Frequency: At least 5 of 7 days/Wk (IRF) Estimated Hrs Per Day: 1.5 hours per day Patient and/or Family Agrees t: Yes Safety Risks/Education Patient Education: Correct Positioning, Safety Issues Teaching Recipient: Patient Teaching Methods: Discussion Response to Teaching: Reinforcement Needed Time/GCodes Time In: 1300 Time Out: 1315 Total Billed Treatment Time: 15 Total Billed Treatment 1, FA (15m) Co-treat w/OT for 15m BRITTANY HARTMAN PTA May 09, 2019 14:25
[2019-05-09 16:10] VITALS: BP 124/64
--- NOTE | 2019-05-09 16:30 | Cardiology Progress Note ---
Cardiology SOAP Progress Note Subjective: No cardiac complaints. Objective: I&O/Vital Signs 05/09/19 05/09/19 05/09/19 05/09/19 06:10 08:57 09:18 13:45 Temp 37.3 Pulse 68 83 Resp 16 B/P (MAP) 135/68 (90) 150/71 (97) Pulse Ox 90 90 O2 Delivery Nasal Cannula Nasal Cannula High Flow N/C O2 Flow Rate 2.00 2.00 3.00 05/09/19 16:10 Temp 36.6 Pulse 76 Resp 18 B/P (MAP) 124/64 (84) Pulse Ox 94 05/09/19 00:00 Intake Total 50 ml Output Total 780 ml Balance -730 ml Weight (Pounds): 160 Weight (Ounces): 0.0 Weight (Calculated Kilograms): [id number] Constitutional: AAO x 3, well-developed, well-nourished Respiratory: chest expansion is symmetric, chest is bilaterally symmetric, other Cardiovascular: regular rate-rhythm, S1 and S2 Gastrointestional: other Extremities: no lower extremity edema bilateral Neurologic/Psychiatric: no motor/sensory deficits, alert, normal mood/affect, oriented x 3, grossly intact Skin: normal color Results/Procedures: Labs Laboratory Tests 05/08/19 18:20: Glucometer 132H 05/08/19 23:56: Glucometer 152H 05/09/19 05:52: Glucometer 220H 05/09/19 12:07: Glucometer 150H A/P: Assessment/Dx: PAF CAD HTN HLP Plan: No active cardiac issues. H/O multiple abdominal surgeries, had bowel resection and diverting ileostomy, last procedure was done on March 13, 2019, followed by surgical services, recent transfer from [place] on 04-18-19 Paroxysmal atrial fibrillation, maintained on Lopressor, Eliquis. Continue to monitor. Labile hypertension, blood pressure well controlled at this time, continue to monitor. H/O acute renal insufficiency, continue to monitor renal function. Coronary artery disease - Most recent cardiac catheterization done April 2018 revealed mild ectasia in the proximal LAD with mild disease in the mid LAD, small vessel disease distally, mild ectasia in the proximal circumflex artery and 40-50 percent stenosis in the mid right coronary artery, nonobstructive disease History of colon cancer, history of colon resection and colostomy in the past, followed by Dr. Branham Hyperlipidemia- continue to monitor lipids as outpatient. Carotid artery stenosis, bilateral nonobstructive disease per carotid duplex done December 2018, continue to monitor. History of thyroid nodules noted on ultrasound, followed by Dr. Branham and Dr. Simmons Diabetes mellitus Family history of coronary artery disease. Obstructive sleep apnea, intolerance to CPAP History of appendectomy, kidney stones, hysterectomy. Breast biopsy. Anemia, continue to monitor, management per Dr Hand Thank you for your consultation. Please call me if you have any questions. Martha Spear MD, FACP, FACC, FSCAI, FHRS, CCDS Interventional Cardiology Cardiac Electrophysiology Vascular Medicine and Endovascular Interventions Gumaro SPEAR MD May 09, 2019 16:30
[2019-05-09] MEDS: SODIUM ACETATE IV SCH ×11 (17:11)
[2019-05-09] MEDS: POTASSIUM ACETATE IV SCH ×11 (17:11)
[2019-05-09] MEDS: [UNRECOGNIZED DRUG - OTHER] IV SCH ×11 (17:11)
--- NOTE | 2019-05-09 18:44 | NUR ---
Patients son and daughter spoke with this nurse. Family is considering palliative/hospice care. This nurse encouraged family to speak with Yarn Wrapper in the morning. Dr. Hand notified.
[2019-05-10] MEDS: inSUlin ASPART (NovoLOG) 1 UNIT/0.01 ML (CHARGE PER UNIT) SC SCH ×2 (00:39→05:34)
[2019-05-10] MEDS: CATHETER FLUSH 10 ML SYR IV SCH (05:09)
[2019-05-10] MEDS: ONDANSETRON 4 MG/2 ML (SDV) Z0FRAN IV PRN (05:23)
[2019-05-10 05:39] VITALS: BP 156/63
[2019-05-10] MEDS ORDERED: PROMETHAZINE INJ 25 MG/ML (PHENERGAN) AMP IM PRN (07:30)
--- NOTE | 2019-05-10 08:30 | NUR ---
STATES NAUSEA BETTER AFTER PHENERGAN. DAUGHTER AT BEDSIDE. REFUSES PO FLUIDS, FOOD, OR MEDICATIONS THIS AM. REFUSES TO TURN.
[2019-05-10] MEDS: NYSTATIN ORAL SUSP 5 ML UDC PO SCH (08:56)
[2019-05-10] MEDS: VISC LIDOCAINE/ANTACID/DIPHENHYDRAMINE 1:1:1 120 ML PO SCH ×3 (08:56)
[2019-05-10] MEDS: FLUTICASONE NASAL SPRAY (FLONASE) 16 GM BTL NS SCH (08:57)
[2019-05-10] MEDS: FAMOTIDINE 20 MG (PEPCID) TABLET PO SCH (09:00)
[2019-05-10] MEDS: ENALAPRIL 5 MG (VASOTEC) TAB PEG SCH (09:00)
[2019-05-10] MEDS: SERTRALINE 50 MG (ZOLOFT) TABLET PO SCH (09:00)
[2019-05-10] MEDS: OXYBUTYNIN (DITROPAN) 5 MG TAB PO SCH (09:00)
[2019-05-10] MEDS: APIXABAN 5 MG (ELIQUIS) TABLET PO SCH (09:00)
[2019-05-10] MEDS: meTOprolol TARTRATE 50 MG (LOPRESSOR) TAB PO SCH (09:00)
--- NOTE | 2019-05-10 09:20 | Occ Therapy Progress Note ---
Therapy Progress Note OT/PT entered room to co-treat with pt. Daughter stated that pt had been nauseated earlier in AM and had been closing her eyes to ignore people in room. When pt was asked about working with therapy pt refused stating "no". CONTRACT DESIGN AGENT attempted to encourage pt to participate at any level of exercise/therapy, pt adamantly refused. Daughter attempted also and pt opened eyes and stated "no". Will attempt to see pt later today. 1 refusal GEOVANNI FLORES May 10, 2019 09:20
--- NOTE | 2019-05-10 10:00 | NUR ---
CONFERENCE WITH DAUGHTER, BROOKLYNN COREY - GAME OPERATOR AND THIS NURSE REGARDING PLAN OF CARE FOR PATIENT. PLAN FOR TRANSFER TO MEDICAL FLOOR AND CONSULT HOSPICE.
--- NOTE | 2019-05-10 10:50 | NUR ---
DISCHARGED TO ROOM 420 ACCOMPANIED BY FAMILY AND NURSING STAFF. REPORT WAS GIVEN TO [place]. O2 ON AT 3L. PICC LINE INTACT LEFT ARM.
--- NOTE | 2019-05-10 10:52 | Discharge Summary ---
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 Diabetes mellitus Low albumin TPN required but weaning while increasing PO intake and initiated a calorie count 3 days ago which now she is refusing to eat History of respiratory failure Elevated liver enzymes due to cholestasis from TPN 4.5 last check Anemia completed iron infusions Confusion with undercurrent of dementia Decubitus ulcers Tachycardia consulted now resolved Plan: Inpatient rehab protocol TPN wean and increasing PO nutrition will start calorie count and fluid intake PO but refusing to eat now so likely this will be unsuccessful Wound care for pressure ulcers Wound vac managed by Sunny and surgeons Air bed Monitor labs and checking in morning Iron infusions Chey lift and bedridden state Appreciate Cardiology for tachycardia management Iron infusions completed Dr Willett spoke to family Monday Refuses to eat now Move to 4 th floor on inpatient hospice (1) Critical illness myopathy Status: Acute (2) Essential hypertension Status: Chronic (3) Abdominal pain (4) HLP (5) Headache Status: Acute (6) Perforated abdominal viscus Status: Acute (7) Postoperative abdominal pain Status: Acute (8) IDDM (insulin dependent diabetes mellitus) Status: Chronic Discharge Summary Discharge Physical Examination Allergies: Coded Allergies: levofloxacin (Verified Adverse Reaction, Mild, RASH, 07/06/12) amoxicillin (Unverified Adverse Reaction, Unknown, 05/28/14) YEAST INFECTION latex (Unverified Adverse Reaction, Unknown, 04/18/18) Vitals & I&Os Vital Signs Date Time Temp Pulse Resp B/P (MAP) Pulse Ox O2 Delivery O2 Flow Rate FiO2 05/10/19 09:00 Nasal Cannula 3.00 05/10/19 05:39 37.4 97 20 156/63 (94) 96 General Appearance: Alert, Other (declined status) Respiratory: Clear to Auscultation Hospital Course Was the Problem List Reviewed?: Yes Hospital course: patient had a 3 weeks course in IRF after returning from [place] after extensive abdominal surgeries and remaining on TPN along with wound vac. Patient remained bedridden for the entire course and had minimal improvement during the course and patient was advanced on her diet and tried to wean TPN but at the end of her stay she declined to eat and participate in therapies and we had a long conversation with her daughter and it was in agreement to move her to 4th floor on inpatient hospice and remain DNR. Labs (last 24 hrs) Laboratory Tests 04/18/19 19:16: Glucometer 135H 04/19/19 00:46: Glucometer 139H 04/19/19 05:30: White Blood Count 9.5, Red Blood Count 2.72L, Hemoglobin 8.4L, Hematocrit 28L, Mean Corpuscular Volume 104H, Mean Corpuscular Hemoglobin 31, Mean Corpuscular Hemoglobin Concent 30L, Red Cell Distribution Width 18.7H, Platelet Count 240, Mean Platelet Volume 10.5H, Neutrophils (%) (Auto) 82H, Lymphocytes (%) (Auto) 11L, Monocytes (%) (Auto) 7, Eosinophils (%) (Auto) 1, Basophils (%) (Auto) 0, Neutrophils # (Auto) 7.8, Lymphocytes # (Auto) 1.0, Monocytes # (Auto) 0.6, Eosinophils # (Auto) 0.1, Basophils # (Auto) 0.0, Sodium Level 146H, Potassium Level 4.3, Chloride Level 114H, Carbon Dioxide Level 24, Anion Gap 8, Blood Urea Nitrogen 54H, Creatinine 0.65, Estimat Glomerular Filtration Rate > 60, BUN/Creatinine Ratio 83, Glucose Level 160H, Calcium Level 8.4L, Corrected Calcium 10.1, Phosphorus Level 4.7, Magnesium Level 1.7, Iron Level 36, Total Bilirubin 3.2H, Aspartate Amino Transf (AST/SGOT) 80H, Alanine Aminotransferase (ALT/SGPT) 57H, Alkaline Phosphatase 134, Total Protein 5.6L, Albumin 1.9L, Trig lycerides Level 224H 04/19/19 05:33: Glucometer 165H 04/19/19 13:34: Glucometer 151H 04/19/19 18:06: Glucometer 94 04/20/19 00:02: Glucometer 231H 04/20/19 05:00: Sodium Level 147H, Potassium Level 4.4, Chloride Level 115H, Carbon Dioxide Level 24, Anion Gap 8, Blood Urea Nitrogen 51H, Creatinine 0.69, Estimat Glomerular Filtration Rate > 60, BUN/Creatinine Ratio 74, Glucose Level 277H, Calcium Level 8.6, Corrected Calcium 10.1, Phosphorus Level 3.9, Magnesium Level 1.8, Total Bilirubin 3.4H, Aspartate Amino Transf (AST/SGOT) 92H, Alanine Aminotransferase (ALT/SGPT) 71H, Alkaline Phosphatase 139H, Total Protein 6.2L, Albumin 2.1L 04/20/19 05:54: Glucometer 281H 04/20/19 12:13: Glucometer 164H 04/20/19 17:56: Glucometer 110 04/20/19 23:46: Glucometer 202H 04/21/19 05:30: Sodium Level 148H, Potassium Level 4.4, Chloride Level 119H, Carbon Dioxide Level 21, Anion Gap 8, Blood Urea Nitrogen 51H, Creatinine 0.66, Estimat Glomerular Filtration Rate > 60, BUN/Creatinine Ratio 77, Glucose Level 191H, Calcium Level 8.3L, Corrected Calcium 9.9, Phosphorus Level 4.1, Magnesium Level 1.8, Total Bilirubin 3.3H, Aspartate Amino Transf (AST/SGOT) 86H, Alanine Aminotransferase (ALT/SGPT) 72H, Alkaline Phosphatase 146H, Total Protein 5.9L, Albumin 2.0L 04/21/19 05:32: Glucometer 181H 04/21/19 11:45: Glucometer 162H 04/21/19 18:00: Glucometer 97 04/22/19 00:05: Glucometer 196H 04/22/19 05:34: Glucometer 203H 04/22/19 05:50: White Blood Count 8.7, Red Blood Count 2.82L, Hemoglobin 8.9L, Hematocrit 30L, Mean Corpuscular Volume 107H, Mean Corpuscular Hemoglobin 32, Mean Corpuscular Hemoglobin Concent 30L, Red Cell Distribution Width 17.9H, Platelet Count 247, Mean Platelet Volume 11.3H, Neutrophils (%) (Auto) 83H, Lymphocytes (%) (Auto) 8L, Monocytes (%) (Auto) 8, Eosinophils (%) (Auto) 1, Basophils (%) (Auto) 0, Neutrophils # (Auto) 7.2, Lymphocytes # (Auto) 0.7L, Monocytes # (Auto) 0.7, Eosinophils # (Auto) 0.1, Basophils # (Auto) 0.0, Sodium Level 146H, Potassium Level 4.7, Chloride Level 118H, Carbon Dioxide Level 22, Anion Gap 6, Blood Urea Nitrogen 48H, Creatinine 0.64, Estimat Glomerular Filtration Rate > 60, BUN/Creatinine Ratio 75, Glucose Level 206H, Calcium Level 8.5, Corrected Calcium 10.0, Phosphorus Level 3.3, Magnesium Level 1.8, Total Bilirubin 3.5H, Aspartate Amino Transf (AST/SGOT) 85H, Alanine Aminotransferase (ALT/SGPT) 74H, Alkaline Phosphatase 153H, Total Protein 6.1L, Albumin 2.1L 04/22/19 05:59: Glucometer 201H 04/22/19 12:16: Glucometer 156H 04/22/19 16:55: Glucometer 118H 04/23/19 00:09: Glucometer 233H 04/23/19 05:15: Sodium Level 143, Potassium Level 4.8, Chloride Level 117H, Carbon Dioxide Level 18L, Anion Gap 8, Blood Urea Nitrogen 48H, Creatinine 0.68, Estimat Glomerular Filtration Rate > 60, BUN/Creatinine Ratio 71, Glucose Level 192H, Calcium Level 8.4L, Corrected Calcium 9.9, Phosphorus Level 3.3, Magnesium Level 1.7, Total Bilirubin 3.9H, Aspartate Amino Transf (AST/SGOT) 77H, Alanine Aminotransferase (ALT/SGPT) 73H, Alkaline Phosphatase 150H, Total Protein 6.3L, Albumin 2.1L 04/23/19 05:16: Glucometer 191H 04/23/19 11:44: Glucometer 174H 04/23/19 16:24: Glucometer 129H 04/24/19 00:00: Glucometer 176H 04/24/19 05:47: Glucometer 200H 04/24/19 06:00: Sodium Level 143, Potassium Level 4.9, Chloride Level 115H, Carbon Dioxide Level 20L, Anion Gap 8, Blood Urea Nitrogen 53H, Creatinine 0.65, Estimat Glomerular Filtration Rate > 60, BUN/Creatinine Ratio 82, Glucose Level 199H, Calcium Level 8.6, Corrected Calcium 10.2H, Phosphorus Level 3.8, Magnesium Level 1.9, Total Bilirubin 3.7H, Aspartate Amino Transf (AST/SGOT) 75H, Alanine Aminotransferase (ALT/SGPT) 70H, Alkaline Phosphatase 138H, Total Protein 6.0L, Albumin 2.0L 04/24/19 11:51: Glucometer 137H 04/24/19 17:12: Glucometer 99 04/25/19 00:06: Glucometer 162H 04/25/19 05:06: Glucometer 356H 04/25/19 06:17: White Blood Count 8.2, Red Blood Count 2.89L, Hemoglobin 8.9L, Hematocrit 30L, Mean Corpuscular Volume 104H, Mean Corpuscular Hemoglobin 31, Mean Corpuscular Hemoglobin Concent 30L, Red Cell Distribution Width 17.4H, Platelet Count 233, Mean Platelet Volume 11.5H, Neutrophils (%) (Auto) 81H, Lymphocytes (%) (Auto) 9L, Monocytes (%) (Auto) 8, Eosinophils (%) (Auto) 2, Basophils (%) (Auto) 0, Neutrophils # (Auto) 6.6, Lymphocytes # (Auto) 0.7L, Monocytes # (Auto) 0.7, Eosinophils # (Auto) 0.2, Basophils # (Auto) 0.0, Sodium Level 142, Potassium Level 4.9, Chloride Level 115H, Carbon Dioxide Level 18L, Anion Gap 9, Blood Urea Nitrogen 57H, Creatinine 0.71, Estimat Glomerular Filtration Rate > 60, BUN/Creatinine Ratio 80, Glucose Level 156H, Calcium Level 8.4L, Corrected Calcium 10.0, Phosphorus Level 4.2, Magnesium Level 1.9, Total Bilirubin 4.0H, Aspartate Amino Transf (AST/SGOT) 79H, Alanine Aminotransferase (ALT/SGPT) 72H, Alkaline Phosphatase 140H, Total Protein 6.0L, Albumin 2.0L, Prealbumin 8.9L, Triglycerides Level 236H 04/25/19 06:47: Glucometer 156H 04/25/19 12:23: Glucometer 104 04/25/19 18:39: Glucometer 100 04/25/19 23:57: Glucometer 145H 04/26/19 05:50: Sodium Level 141, Potassium Level 4.5, Chloride Level 111H, Carbon Dioxide Level 21, Anion Gap 9, Blood Urea Nitrogen 57H, Creatinine 0.72, Estimat Glomerular Filtration Rate > 60, BUN/Creatinine Ratio 79, Glucose Level 121H, Calcium Level 8.9, Corrected Calcium 10.3H, Phosphorus Level 4.7, Magnesium Level 2.0, Total Bilirubin 4.7H, Aspartate Amino Transf (AST/SGOT) 89H, Alanine Aminotransferase (ALT/SGPT) 80H, Alkaline Phosphatase 150H, Total Protein 6.7, Albumin 2.2L 04/26/19 11:56: Glucometer 143H 04/26/19 18:02: Glucometer 104 04/27/19 00:06: Glucometer 192H 04/27/19 05:40: Glucometer 222H 04/27/19 06:10: Sodium Level 140, Potassium Level 4.1, Chloride Level 110H, Carbon Dioxide Level 19L, Anion Gap 11, Blood Urea Nitrogen 49H, Creatinine 0.68, Estimat Glomerular Filtration Rate > 60, BUN/Creatinine Ratio 72, Glucose Level 224H, Calcium Level 8.1L, Corrected Calcium 9.8, Phosphorus Level 3.9, Magnesium Level 1.8, Total Bilirubin 4.2H, Aspartate Amino Transf (AST/SGOT) 72H, Alanine Aminotransferase (ALT/SGPT) 67H, Alkaline Phosphatase 135, Total Protein 6.1L, Albumin 1.9L 04/27/19 11:35: Glucometer 144H 04/27/19 18:10: Glucometer 121H 04/28/19 00:10: Glucometer 165H 04/28/19 05:10: Glucometer 175H 04/28/19 06:30: Sodium Level 142, Potassium Level 4.0, Chloride Level 111H, Carbon Dioxide Level 23, Anion Gap 8, Blood Urea Nitrogen 48H, Creatinine 0.62, Estimat Glomerular Filtration Rate > 60, BUN/Creatinine Ratio 77, Glucose Level 166H, Calcium Level 8.2L, Phosphorus Level 3.5, Magnesium Level 1.8 04/28/19 11:38: Glucometer 144H 04/28/19 17:57: Glucometer 124H 04/29/19 00:04: Glucometer 219H 04/29/19 05:29: Glucometer 178H 04/29/19 06:55: White Blood Count 9.7, Red Blood Count 2.67L, Hemoglobin 8.3L, Hematocrit 28L, Mean Corpuscular Volume 104H, Mean Corpuscular Hemoglobin 31, Mean Corpuscular Hemoglobin Concent 30L, Red Cell Distribution Width 16.4H, Platelet Count 168, Mean Platelet Volume 12.5H, Neutrophils (%) (Auto) 78H, Lymphocytes (%) (Auto) 7L, Monocytes (%) (Auto) 13H, Eosinophils (%) (Auto) 2, Basophils (%) (Auto) 0, Neutrophils # (Auto) 7.5, Lymphocytes # (Auto) 0.7L, Monocytes # (Auto) 1.3H, Eosinophils # (Auto) 0.1, Basophils # (Auto) 0.0, Neutrophils % (Manual) 76, Lymphocytes % (Manual) 3, Monocytes % (Manual) 12, Eosinophils % (Manual) 1, Basophils % (Manual) 0, Metamyelocytes % 1, Myelocytes % 1, Band Neutrophils 6, Polychromasia SLIGHT, Anisocytosis MODERATE, Sodium Level 140, Potassium Level 4.2, Chloride Level 109H, Carbon Dioxide Level 24, Anion Gap 7, Blood Urea Nitrogen 56H, Creatinine 0.73, Estimat Glomerular Filtration Rate > 60, BUN/Creatinine Ratio 77, Glucose Level 176H, Calcium Level 7.9L, Corrected Calcium 9.7, Phosphorus Level 4.1, Magnesium Level 1.8, Total Bilirubin 3.7H, Aspartate Amino Transf (AST/SGOT) 67H, Alanine Aminotransferase (ALT/SGPT) 55, Alkaline Phosphatase 126, Total Protein 5.5L, Albumin 1.7L, Prealbumin 7.9L 04/29/19 12:43: Glucometer 141H 04/29/19 18:18: Glucometer 130H 04/30/19 00:34: Glucometer 184H 04/30/19 04:57: Glucometer 191H 04/30/19 14:09: Glucometer 155H 04/30/19 18:35: Glucometer 130H 05/01/19 00:10: Glucometer 156H 05/01/19 05:53: Glucometer 186H 05/01/19 11:38: Glucometer 152H 05/01/19 18:07: Glucometer 138H 05/02/19 00:33: Glucometer 173H 05/02/19 05:24: Glucometer 206H 05/02/19 11:01: Glucometer 144H 05/02/19 18:02: Glucometer 140H 05/03/19 00:07: Glucometer 169H 05/03/19 05:31: Glucometer 216H 05/03/19 09:19: White Blood Count 11.3H, Red Blood Count 2.96L, Hemoglobin 9.1L, Hematocrit 30L, Mean Corpuscular Volume 101H, Mean Corpuscular Hemoglobin 31, Mean Corpuscular Hemoglobin Concent 30L, Red Cell Distribution Width 16.3H, Platelet Count 184, Mean Platelet Volume 12.3H, Neutrophils (%) (Auto) 83H, Lymphocytes (%) (Auto) 6L, Monocytes (%) (Auto) 11, Eosinophils (%) (Auto) 1, Basophils (%) (Auto) 0, Neutrophils # (Auto) 9.4H, Lymphocytes # (Auto) 0.6L, Monocytes # (Auto) 1.2H, Eosinophils # (Auto) 0.1, Basophils # (Auto) 0.0, Sodium Level 140, Potassium Level 3.9, Chloride Level 101, Carbon Dioxide Level 28, Anion Gap 11, Blood Urea Nitrogen 67H, Creatinine 0.77, Estimat Glomerular Filtration Rate > 60, BUN/Creatinine Ratio 87, Glucose Level 208H, Calcium Level 8.4L, Corrected Calcium 10.2H, Phosphorus Level 4.2, Magnesium Level 2.1, Total Bilirubin 4.5H, Aspartate Amino Transf (AST/SGOT) 78H, Alanine Aminotransferase (ALT/SGPT) 54, Alkaline Phosphatase 159H, Total Protein 6.1L, Albumin 1.8L 05/03/19 12:04: Glucometer 163H 05/03/19 17:54: Glucometer 89 05/03/19 23:15: Glucometer 154H 05/04/19 05:08: Glucometer 188H 05/04/19 12:21: Glucometer 134H 05/04/19 17:54: Glucometer 101 05/05/19 00:24: Glucometer 152H 05/05/19 05:26: Glucometer 162H 05/05/19 11:33: Glucometer 154H 05/05/19 18:13: Glucometer 107 05/06/19 05:29: Glucometer 155H 05/06/19 05:30: White Blood Count 12.3H, Red Blood Count 2.75L, Hemoglobin 8.5L, Hematocrit 28L, Mean Corpuscular Volume 102H, Mean Corpuscular Hemoglobin 31, Mean Corpuscular Hemoglobin Concent 30L, Red Cell Distribution Width 15.9H, Platelet Count 183, Mean Platelet Volume 12.8H, Neutrophils (%) (Auto) 81H, Lymphocytes (%) (Auto) 8L, Monocytes (%) (Auto) 10, Eosinophils (%) (Auto) 1, Basophils (%) (Auto) 0, Neutrophils # (Auto) 9.9H, Lymphocytes # (Auto) 0.9L, Monocytes # (Auto) 1.2H, Eosinophils # (Auto) 0.2, Basophils # (Auto) 0.0, Sodium Level 139, Potassium Level 3.9, Chloride Level 99, Carbon Dioxide Level 30, Anion Gap 10, Blood Urea Nitrogen 88H, Creatinine 1.02, Estimat Glomerular Filtration Rate 53, BUN/Creatinine Ratio 86, Glucose Level 142H, Calcium Level 8.2L, Corrected Calcium 10.0, Total Bilirubin 4.2H, Aspartate Amino Transf (AST/SGOT) 81H, Alanine Aminotransferase (ALT/SGPT) 50, Alkaline Phosphatase 166H, Total Protein 6.0L, Albumin 1.7L, Prealbumin 5.9L 05/06/19 12:24: Glucometer 163H 05/06/19 18:02: Glucometer 121H 05/07/19 00:29: Glucometer 175H 05/07/19 06:16: Glucometer 206H 05/07/19 12:03: Glucometer 134H 05/07/19 17:45: Glucometer 116H 05/08/19 00:07: Glucometer 129H 05/08/19 05:20: Glucometer 155H 05/08/19 12:03: Glucometer 129H 05/08/19 18:20: Glucometer 132H 05/08/19 23:56: Glucometer 152H 05/09/19 05:52: Glucometer 220H 05/09/19 12:07: Glucometer 150H 05/09/19 17:53: Glucometer 150H 05/10/19 00:11: Glucometer 161H 05/10/19 05:33: Glucometer 158H Pending Labs Laboratory Tests 04/18/19 19:16: Glucometer 135 04/19/19 00:46: Glucometer 139 04/19/19 05:30: White Blood Count 9.5, Red Blood Count 2.72, Hemoglobin 8.4, Hematocrit 28, Mean Corpuscular Volume 104, Mean Corpuscular Hemoglobin 31, Mean Corpuscular Hemoglobin Concent 30, Red Cell Distribution Width 18.7, Platelet Count 240, Mean Platelet Volume 10.5, Neutrophils (%) (Auto) 82, Lymphocytes (%) (Auto) 11, Monocytes (%) (Auto) 7, Eosinophils (%) (Auto) 1, Basophils (%) (Auto) 0, Neutrophils # (Auto) 7.8, Lymphocytes # (Auto) 1.0, Monocytes # (Auto) 0.6, Eosinophils # (Auto) 0.1, Basophils # (Auto) 0.0, Sodium Level 146, Potassium Level 4.3, Chloride Level 114, Carbon Dioxide Level 24, Anion Gap 8, Blood Urea Nitrogen 54, Creatinine 0.65, Estimat Glomerular Filtration Rate > 60, BUN/C reatinine Ratio 83, Glucose Level 160, Calcium Level 8.4, Corrected Calcium 10.1, Phosphorus Level 4.7, Magnesium Level 1.7, Iron Level 36, Total Bilirubin 3.2, Aspartate Amino Transf (AST/SGOT) 80, Alanine Aminotransferase (ALT/SGPT) 57, Alkaline Phosphatase 134, Total Protein 5.6, Albumin 1.9, Triglycerides Level 224 04/19/19 05:33: Glucometer 165 04/19/19 13:34: Glucometer 151 04/19/19 18:06: Glucometer 94 04/20/19 00:02: Glucometer 231 04/20/19 05:00: Sodium Level 147, Potassium Level 4.4, Chloride Level 115, Carbon Dioxide Level 24, Anion Gap 8, Blood Urea Nitrogen 51, Creatinine 0.69, Estimat Glomerular Filtration Rate > 60, BUN/Creatinine Ratio 74, Glucose Level 277, Calcium Level 8.6, Corrected Calcium 10.1, Phosphorus Level 3.9, Magnesium Level 1.8, Total Bilirubin 3.4, Aspartate Amino Transf (AST/SGOT) 92, Alanine Aminotransferase (ALT/SGPT) 71, Alkaline Phosphatase 139, Total Protein 6.2, Albumin 2.1 04/20/19 05:54: Glucometer 281 04/20/19 12:13: Glucometer 164 04/20/19 17:56: Glucometer 110 04/20/19 23:46: Glucometer 202 04/21/19 05:30: Sodium Level 148, Potassium Level 4.4, Chloride Level 119, Carbon Dioxide Level 21, Anion Gap 8, Blood Urea Nitrogen 51, Creatinine 0.66, Estimat Glomerular Filtration Rate > 60, BUN/Creatinine Ratio 77, Glucose Level 191, Calcium Level 8.3, Corrected Calcium 9.9, Phosphorus Level 4.1, Magnesium Level 1.8, Total Bilirubin 3.3, Aspartate Amino Transf (AST/SGOT) 86, Alanine Aminotransferase (ALT/SGPT) 72, Alkaline Phosphatase 146, Total Protein 5.9, Albumin 2.0 04/21/19 05:32: Glucometer 181 04/21/19 11:45: Glucometer 162 04/21/19 18:00: Glucometer 97 04/22/19 00:05: Glucometer 196 04/22/19 05:34: Glucometer 203 04/22/19 05:50: White Blood Count 8.7, Red Blood Count 2.82, Hemoglobin 8.9, Hematocrit 30, Mean Corpuscular Volume 107, Mean Corpuscular Hemoglobin 32, Mean Corpuscular Hemoglobin Concent 30, Red Cell Distribution Width 17.9, Platelet Count 247, Mean Platelet Volume 11.3, Neutrophils (%) (Auto) 83, Lymphocytes (%) (Auto) 8, Monocytes (%) (Auto) 8, Eosinophils (%) (Auto) 1, Basophils (%) (Auto) 0, Neutrophils # (Auto) 7.2, Lymphocytes # (Auto) 0.7, Monocytes # (Auto) 0.7, Eosinophils # (Auto) 0.1, Basophils # (Auto) 0.0, Sodium Level 146, Potassium Level 4.7, Chloride Level 118, Carbon Dioxide Level 22, Anion Gap 6, Blood Urea Nitrogen 48, Creatinine 0.64, Estimat Glomerular Filtration Rate > 60, BUN/Creatinine Ratio 75, Glucose Level 206, Calcium Level 8.5, Corrected Calcium 10.0, Phosphorus Level 3.3, Magnesium Level 1.8, Total Bilirubin 3.5, Aspartate Amino Transf (AST/SGOT) 85, Alanine Aminotransferase (ALT/SGPT) 74, Alkaline Phosphatase 153, Total Protein 6.1, Albumin 2.1 04/22/19 05:59: Glucometer 201 04/22/19 12:16: Glucometer 156 04/22/19 16:55: Glucometer 118 04/23/19 00:09: Glucometer 233 04/23/19 05:15: Sodium Level 143, Potassium Level 4.8, Chloride Level 117, Carbon Dioxide Level 18, Anion Gap 8, Blood Urea Nitrogen 48, Creatinine 0.68, Estimat Glomerular Filtration Rate > 60, BUN/Creatinine Ratio 71, Glucose Level 192, Calcium Level 8.4, Corrected Calcium 9.9, Phosphorus Level 3.3, Magnesium Level 1.7, Total Bilirubin 3.9, Aspartate Amino Transf (AST/SGOT) 77, Alanine Aminotransferase (ALT/SGPT) 73, Alkaline Phosphatase 150, Total Protein 6.3, Albumin 2.1 04/23/19 05:16: Glucometer 191 04/23/19 11:44: Glucometer 174 04/23/19 16:24: Glucometer 129 04/24/19 00:00: Glucometer 176 04/24/19 05:47: Glucometer 200 04/24/19 06:00: Sodium Level 143, Potassium Level 4.9, Chloride Level 115, Carbon Dioxide Level 20, Anion Gap 8, Blood Urea Nitrogen 53, Creatinine 0.65, Estimat Glomerular Filtration Rate > 60, BUN/Creatinine Ratio 82, Glucose Level 199, Calcium Level 8.6, Corrected Calcium 10.2, Phosphorus Level 3.8, Magnesium Level 1.9, Total Bilirubin 3.7, Aspartate Amino Transf (AST/SGOT) 75, Alanine Aminotransferase (ALT/SGPT) 70, Alkaline Phosphatase 138, Total Protein 6.0, Albumin 2.0 04/24/19 11:51: Glucometer 137 04/24/19 17:12: Glucometer 99 04/25/19 00:06: Glucometer 162 04/25/19 05:06: Glucometer 356 04/25/19 06:17: White Blood Count 8.2, Red Blood Count 2.89, Hemoglobin 8.9, Hematocrit 30, Mean Corpuscular Volume 104, Mean Corpuscular Hemoglobin 31, Mean Corpuscular Hemoglobin Concent 30, Red Cell Distribution Width 17.4, Platelet Count 233, Mean Platelet Volume 11.5, Neutrophils (%) (Auto) 81, Lymphocytes (%) (Auto) 9, Monocytes (%) (Auto) 8, Eosinophils (%) (Auto) 2, Basophils (%) (Auto) 0, Cyrus trophils # (Auto) 6.6, Lymphocytes # (Auto) 0.7, Monocytes # (Auto) 0.7, Eosinophils # (Auto) 0.2, Basophils # (Auto) 0.0, Sodium Level 142, Potassium Level 4.9, Chloride Level 115, Carbon Dioxide Level 18, Anion Gap 9, Blood Urea Nitrogen 57, Creatinine 0.71, Estimat Glomerular Filtration Rate > 60, BUN/Creatinine Ratio 80, Glucose Level 156, Calcium Level 8.4, Corrected Calcium 10.0, Phosphorus Level 4.2, Magnesium Level 1.9, Total Bilirubin 4.0, Aspartate Amino Transf (AST/SGOT) 79, Alanine Aminotransferase (ALT/SGPT) 72, Alkaline Phosphatase 140, Total Protein 6.0, Albumin 2.0, Prealbumin 8.9, Triglycerides Level 236 04/25/19 06:47: Glucometer 156 04/25/19 12:23: Glucometer 104 04/25/19 18:39: Glucometer 100 04/25/19 23:57: Glucometer 145 04/26/19 05:50: Sodium Level 141, Potassium Level 4.5, Chloride Level 111, Carbon Dioxide Level 21, Anion Gap 9, Blood Urea Nitrogen 57, Creatinine 0.72, Estimat Glomerular Filtration Rate > 60, BUN/Creatinine Ratio 79, Glucose Level 121, Calcium Level 8.9, Corrected Calcium 10.3, Phosphorus Level 4.7, Magnesium Level 2.0, Total Bilirubin 4.7, Aspartate Amino Transf (AST/SGOT) 89, Alanine Aminotransferase (ALT/SGPT) 80, Alkaline Phosphatase 150, Total Protein 6.7, Albumin 2.2 04/26/19 11:56: Glucometer 143 04/26/19 18:02: Glucometer 104 04/27/19 00:06: Glucometer 192 04/27/19 05:40: Glucometer 222 04/27/19 06:10: Sodium Level 140, Potassium Level 4.1, Chloride Level 110, Carbon Dioxide Level 19, Anion Gap 11, Blood Urea Nitrogen 49, Creatinine 0.68, Estimat Glomerular Filtration Rate > 60, BUN/Creatinine Ratio 72, Glucose Level 224, Calcium Level 8.1, Corrected Calcium 9.8, Phosphorus Level 3.9, Magnesium Level 1.8, Total Bilirubin 4.2, Aspartate Amino Transf (AST/SGOT) 72, Alanine Aminotransferase (ALT/SGPT) 67, Alkaline Phosphatase 135, Total Protein 6.1, Albumin 1.9 04/27/19 11:35: Glucometer 144 04/27/19 18:10: Glucometer 121 04/28/19 00:10: Glucometer 165 04/28/19 05:10: Glucometer 175 04/28/19 06:30: Sodium Level 142, Potassium Level 4.0, Chloride Level 111, Carbon Dioxide Level 23, Anion Gap 8, Blood Urea Nitrogen 48, Creatinine 0.62, Estimat Glomerular Filtration Rate > 60, BUN/Creatinine Ratio 77, Glucose Level 166, Calcium Level 8.2, Phosphorus Level 3.5, Magnesium Level 1.8 04/28/19 11:38: Glucometer 144 04/28/19 17:57: Glucometer 124 04/29/19 00:04: Glucometer 219 04/29/19 05:29: Glucometer 178 04/29/19 06:55: White Blood Count 9.7, Red Blood Count 2.67, Hemoglobin 8.3, Hematocrit 28, Mean Corpuscular Volume 104, Mean Corpuscular Hemoglobin 31, Mean Corpuscular Hemoglobin Concent 30, Red Cell Distribution Width 16.4, Platelet Count 168, Mean Platelet Volume 12.5, Neutrophils (%) (Auto) 78, Lymphocytes (%) (Auto) 7, Monocytes (%) (Auto) 13, Eosinophils (%) (Auto) 2, Basophils (%) (Auto) 0, Neutrophils # (Auto) 7.5, Lymphocytes # (Auto) 0.7, Monocytes # (Auto) 1.3, Eosinophils # (Auto) 0.1, Basophils # (Auto) 0.0, Neutrophils % (Manual) 76, Lymphocytes % (Manual) 3, Monocytes % (Manual) 12, Eosinophils % (Manual) 1, Basophils % (Manual) 0, Metamyelocytes % 1, Myelocytes % 1, Band Neutrophils 6, Polychromasia SLIGHT, Anisocytosis MODERATE, Sodium Level 140, Potassium Level 4.2, Chloride Level 109, Carbon Dioxide Level 24, Anion Gap 7, Blood Urea Nitrogen 56, Creatinine 0.73, Estimat Glomerular Filtration Rate > 60, BUN/Creatinine Ratio 77, Glucose Level 176, Calcium Level 7.9, Corrected Calcium 9.7, Phosphorus Level 4.1, Magnesium Level 1.8, Total Bilirubin 3.7, Aspartate Amino Transf (AST/SGOT) 67, Alanine Aminotransferase (ALT/SGPT) 55, Alkaline Phosphatase 126, Total Protein 5.5, Albumin 1.7, Prealbumin 7.9 04/29/19 12:43: Glucometer 141 04/29/19 18:18: Glucometer 130 04/30/19 00:34: Glucometer 184 04/30/19 04:57: Glucometer 191 04/30/19 14:09: Glucometer 155 04/30/19 18:35: Glucometer 130 05/01/19 00:10: Glucometer 156 05/01/19 05:53: Glucometer 186 05/01/19 11:38: Glucometer 152 05/01/19 18:07: Glucometer 138 05/02/19 00:33: Glucometer 173 05/02/19 05:24: Glucometer 206 05/02/19 11:01: Glucometer 144 05/02/19 18:02: Glucometer 140 05/03/19 00:07: Glucometer 169 05/03/19 05:31: Glucometer 216 05/03/19 09:19: White Blood Count 11.3, Red Blood Count 2.96, Hemoglobin 9.1, Hematocrit 30, Mean Corpuscular Volume 101, Mean Corpuscular Hemoglobin 31, Mean Corpuscular Hemoglobin Concent 30, Red Cell Distribution Width 16.3, Platelet Count 184, Mean Platelet Volume 12.3, Neutrophils (%) (Auto) 83, Lymphocytes (%) (Auto) 6, Monocytes (%) (Auto) 11, Eosinophils (%) (Auto) 1, Basophils (%) (Auto) 0, Neutrophils # (Auto) 9.4, Lymphocytes # (Auto) 0.6, Monocytes # (Auto) 1.2, Eosinophils # (Auto) 0.1, Basophils # (Auto) 0.0, Sodium Level 140, Potassium Level 3.9, Chloride Level 101, Carbon Dioxide Level 28, Anion Gap 11, Blood Urea Nitrogen 67, Creatinine 0.77, Estimat Glomerular Filtration Rate > 60, BUN/Creatinine Ratio 87, Glucose Level 208, Calcium Level 8.4, Corrected Calcium 10.2, Phosphorus Level 4.2, Magnesium Level 2.1, Total Bilirubin 4.5, Aspartate Amino Transf (AST/SGOT) 78, Alanine Aminotransferase (ALT/SGPT) 54, Alkaline Phosphatase 159, Total Protein 6.1, Albumin 1.8 05/03/19 12:04: Glucometer 163 05/03/19 17:54: Glucometer 89 05/03/19 23:15: Glucometer 154 05/04/19 05:08: Glucometer 188 05/04/19 12:21: Glucometer 134 05/04/19 17:54: Glucometer 101 05/05/19 00:24: Glucometer 152 05/05/19 05:26: Glucometer 162 05/05/19 11:33: Glucometer 154 05/05/19 18:13: Glucometer 107 05/06/19 05:29: Glucometer 155 05/06/19 05:30: White Blood Count 12.3, Red Blood Count 2.75, Hemoglobin 8.5, Hematocrit 28, Mean Corpuscular Volume 102, Mean Corpuscular Hemoglobin 31, Mean Corpuscular Hemoglobin Concent 30, Red Cell Distribution Width 15.9, Platelet Count 183, Mean Platelet Volume 12.8, Neutrophils (%) (Auto) 81, Lymphocytes (%) (Auto) 8, Monocytes (%) (Auto) 10, Eosinophils (%) (Auto) 1, Basophils (%) (Auto) 0, Neutrophils # (Auto) 9.9, Lymphocytes # (Auto) 0.9, Monocytes # (Auto) 1.2, Eosinophils # (Auto) 0.2, Basophils # (Auto) 0.0, Sodium Level 139, Potassium Level 3.9, Chloride Level 99, Carbon Dioxide Level 30, Anion Gap 10, Blood Urea Nitrogen 88, Creatinine 1.02, Estimat Glomerular Filtration Rate 53, BUN/Creatinine Ratio 86, Glucose Level 142, Calcium Level 8.2, Corrected Calcium 10.0, Total Bilirubin 4.2, Aspartate Amino Transf (AST/SGOT) 81, Alanine Aminotransferase (ALT/SGPT) 50, Alkaline Phosphatase 166, Total Protein 6.0, Albumin 1.7, Prealbumin 5.9 05/06/19 12:24: Glucometer 163 05/06/19 18:02: Glucometer 121 05/07/19 00:29: Glucometer 175 05/07/19 06:16: Glucometer 206 05/07/19 12:03: Glucometer 134 05/07/19 17:45: Glucometer 116 05/08/19 00:07: Glucometer 129 05/08/19 05:20: Glucometer 155 05/08/19 12:03: Glucometer 129 05/08/19 18:20: Glucometer 132 05/08/19 23:56: Glucometer 152 05/09/19 05:52: Glucometer 220 05/09/19 12:07: Glucometer 150 05/09/19 17:53: Glucometer 150 05/10/19 00:11: Glucometer 161 05/10/19 05:33: Glucometer 158 Discharge Home Medications: Active Scripts Active Reported Vitamin E (Vitamin E Acetate) 400 Unit Capsule 400 Unit PO DAILY Fish Oil 1,000 mg Capsule ([place] 3 Polyunsat Fatty Acids) 1,000 Mg Cap 1,000 Mg PO DAILY Multivitamins (Multivitamin) 1 Each Tablet 1 Tab PO DAILY Aspirin EC (Aspirin) 81 Mg Tablet.dr 81 Mg PO DAILY Bisoprolol Fumarate 5 Mg Tablet 5 Mg PO DAILY Amlodipine Besylate 5 Mg Tablet 5 Mg PO DAILY Losartan Potassium 100 Mg Tablet 100 Mg PO DAILY Lantus Solostar (Insulin Glargine,Hum.rec.anlog) 100 Unit/1 Ml Insuln.pen 50 Units SC HS Novolog Flexpen (Insulin Aspart) 300 Units/3 Ml Solution 15 Units SQ 1800 Novolog Flexpen (Insulin Aspart) 300 Units/3 Ml Solution 10 Units SC 0800,1200 Allopurinol 300 Mg Tablet 300 Mg PO DAILY Instructions to patient/family Please see electronic discharge instructions given to patient. Diagnosis/Problems Diagnosis/Problems (1) Critical illness myopathy Status: Acute (2) Essential hypertension Status: Chronic (3) Abdominal pain (4) HLP (5) Headache Status: Acute (6) Perforated abdominal viscus Status: Acute (7) Postoperative abdominal pain Status: Acute (8) IDDM (insulin dependent diabetes mellitus) Status: Chronic Clinical Quality Measures DVT/VTE Risk/Contraindication: Risk Factor Score Per Nursin RFS Level Per Nursing on Admit: 4+=Very High YARON GALLAGHER DO May 10, 2019 10:52
--- NOTE | 2019-05-10 11:19 | NUR ---
DISCHARGE Family conference this a.m. with daughter/DPOA Jeni Samson, Dr. Hand, RN/Vanesa, and investigative writer, and later son Jean Claude. Jeni indicated the family had met yesterday to discuss the known wishes of patient. Jeni reported they concluded as a family that with patient's noted decline, complex medical issues/management, and poor prognosis she would likely be dependent upon 24/7 lingering care within a community nursing facility. They decided to opt for comfort care and supportive end of life measures. Jeni stated she/they were ready to discontinue the TPN. GIP Hospice was discussed, daughter and son both requested [facility] as preferred agency and referral was completed. Clinical information faxed, plan is that Lynsey RN will assess patient and visit with family regarding next steps. Palliative Care RN/Kenny aware and patient has been moved to 420.
--- NOTE | 2019-05-10 12:25 | Physical Therapy Daily Note ---
PT Daily Note-Current Subjective Pt. and daughter in room, pt eyes closed, emesis basin and clothe in bed near pt. PT and OT together in room to offer co Rx. Pt. briefly opens eyes, very weak, voice weak but emphatic she is not participating in any type of therapies. PT offered passive gentle lower extremity exercises as well as foot massage, OT offers had and arm gentle ROM as well repositioning and any comfort measures. Pt. repeatedly refuses all . Daughter pleaing with Mother to participate and is emotional. Mother/pt. firm that she is not going to. Pt. expresses both nausea and abdominal discomfort Transfers SCALE: Activities may be completed with or without assistive devices. 8-Nvnphuqhty-rcixnxw completes the activity by him/herself with no assistance from a helper. 5-Set-up or Clean-up Assistance-helper sets up or cleans up; patient completes activity. [place] assists only prior to or following the activity. 4-Supervision or Touching Assistance-helper provides verbal cues and/or touching/steadying and/or contact guard assistance as patient completes act ivity. Assistance may be provided throughout the activity or intermittently. 3-Partial/Moderate Assistance-helper does LESS THAN HALF the effort. [place] lifts, holds or supports trunk or limbs, but provides less than half the effort. 2-Substantial/Maximal Assistance-helper does MORE THAN HALF the effort. [place] lifts or holds trunk or limbs and provides more than half the effort. 4-Hahbesqex-starkj does ALL the effort. Patient does none of the effort to complete the activity. Or, the assistance of 2 or more helpers is required for the patient to complete the activity. If activity was not attempted, code reason: 7-Patient Refused. 9-Not Applicable-not attempted and the patient did not perform the activity before the current illness, exacerbation or injury. 10-Not Attempted due to Environmental Limitations-(lack of equipment, weather restraints, etc.). 88-Not Attempted due to Medical Conditions or Safety Concerns. Weight Bearing Full Weight Bearing Full Weight Bearing Assessment Current Status: Regressing, Refused Treatment pt. appears to be failing, declining medical status, nursing informs that pt. will move off ARU and possibly be Hospice status PT Short Term Goals Short Term Goals Time Frame: Apr 25, 2019 Roll Left & Right: 3 (mod A) Sit to lyin (modA) Lying to sitting on side of be: 3 (modA) Sit to stand: 3 (modA) Chair/qqw-ik-ggrii transfer: 3 (modA) PT Prison Goals Financial Administrative Assistant Goals PT Financial Administrative Assistant Goals Time Frame: May 09, 2019 Roll Left & Right (QC): 3 (Chet) Sit to Lying (QC): 3 (Chet) Lying-Sitting on Side/Bed(QC): 3 (Chet) Sit to Stand (QC): 3 (Chet) Chair/Ujg-bk-Qtxdl Xfer(QC): 3 (Chet) Toilet Transfer (QC): 3 (Chet) Car Transfer (QC): 3 (Chet) Does the Patient Walk: No and Walking Goal NOT indicated Walk 10 feet (QC): 88 Walk 50ft with 2 Turns (QC): 88 Walk 150 ft (QC): 88 Walking 10ft on Uneven Surface: 88 1 Step (curb) (QC): 88 4 Steps (QC): 88 12 Steps (QC): 88 Picking up an Object (QC): 88 Does the Pt use WC or Scooter?: Yes Wheel 50 feet with 2 turns (QC: 4 (SBA) Type: Manual Wheel 150 feet: 4 (SBA) Type: Manual PT Plan Treatment/Plan Treatment Plan: Discontinue PT Treatment Plan: Bed Mobility, Concurrent Therapy, Education, Functional Activity José, Functional Strength, Group Therapy, Gait, Safety, Therapeutic E xercise, Transfers Treatment Duration: May 09, 2019 Frequency: At least 5 of 7 days/Wk (IRF) Estimated Hrs Per Day: 1.5 hours per day Patient and/or Family Agrees t: Yes Time/GCodes Time In: 900 Time Out: 910 Total Billed Treatment Time: 0 Total Billed Treatment 1,no Rx, no chg VIKTOR GARCIA WEBSITE PROGRAMMER May 10, 2019 12:25
--- NOTE | 2019-05-10 13:00 | Cardiology Progress Note ---
Cardiology SOAP Progress Note Subjective: No cardiac complaints. Objective: I&O/Vital Signs Weight (Pounds): 160 Weight (Ounces): 0.0 Weight (Calculated Kilograms): 72.754933 Constitutional: AAO x 3, well-developed, well-nourished Respiratory: chest expansion is symmetric, chest is bilaterally symmetric, other Cardiovascular: regular rate-rhythm, S1 and S2 Gastrointestional: other Extremities: no lower extremity edema bilateral Neurologic/Psychiatric: no motor/sensory deficits, alert, normal mood/affect, oriented x 3, grossly intact Skin: normal color Results/Procedures: Labs A/P: Assessment/Dx: PAF CAD HTN HLP Plan: No active cardiac issues. I have been told that the patient is undergoing hospice evaluation. H/O multiple abdominal surgeries, had bowel resection and diverting ileostomy, last procedure was done on March 13, 2019, followed by surgical services, recent transfer from [facility] on 04-18-19 Paroxysmal atrial fibrillation, maintained on Lopressor, Eliquis. Continue to monitor. Labile hypertension, blood pressure well controlled at this time, continue to monitor. H/O acute renal insufficiency, continue to monitor renal function. Coronary artery disease - Most recent cardiac catheterization done April 2018 revealed mild ectasia in the proximal LAD with mild disease in the mid LAD, small vessel disease distally, mild ectasia in the proximal circumflex artery and 40-50 percent stenosis in the mid right coronary artery, nonobstructive disease History of colon cancer, history of colon resection and colostomy in the past, followed by Dr. Branham Hyperlipidemia- continue to monitor lipids as outpatient. Carotid artery stenosis, bilateral nonobstructive disease per carotid duplex done December 2018, continue to monitor. History of thyroid nodules noted on ultrasound, followed by Dr. Branham and Dr. Simmons Diabetes mellitus Family history of coronary artery disease. Obstructive sleep apnea, intolerance to CPAP History of appendectomy, kidney stones, hysterectomy. Breast biopsy. Anemia, continue to monitor, management per Dr Hand Thank you for your consultation. Please call me if you have any questions. Martha Spear MD, FACP, FACC, FSCAI, FHRS, CCDS Interventional Cardiology Cardiac Electrophysiology Vascular Medicine and Endovascular Interventions Gumaro SPEAR MD May 10, 2019 13:00
--- NOTE | 2019-05-10 14:02 | Therapy Team Discharge Summary ---
Therapy Discharge Summary Discharge Recommendations Date of Discharge May 10, 2019 at 10:50 Occupational Therapy Decreased Activ Tolerance, Dependent Transfers, Impaired Bed Mobility, Impaired Funct Balance, Impaired I ADL's, Impaired Self-Care Skills Speech-Language Pathology Patient was admitted to ARU s/p abdominal surgeries for recovery prior to returning home. The patient received skilled ST for improving cognitive function and safety awareness. Patient made progress initially, however due to her regression with health matters she was discharged this date to go to the acute floor on comfort care. PT Mcc Goals Mcc Goals PT Mcc Goals Time Frame: May 09, 2019 Roll Left to Right (QC): 3 (Chet) Sit to Lying (QC): 3 (Chet) Lying-Sitting on Side/Bed(QC): 3 (Chet) Sit to Stand (QC): 3 (Chet) Chair/Fbc-eb-Mjaco Xfer(QC): 3 (Chet) Car Transfer (QC): 3 (Chet) Does the Patient Walk: No and Walking Goal NOT indicated Walk 10 feet (QC): 88 Walk 10ft-Uneven Surface(QC): 88 Walk 50ft with 2 Turns (QC): 88 Walk 150 ft (QC): 88 Does the Pt use WC or Scooter?: Yes Wheel 50 feet with 2 turns (QC: 4 (SBA) 1 Step (curb) (QC): 88 4 Steps (QC): 88 12 Steps (QC): 88 Picking up an Object (QC): 88 OT Mcc Goals Mcc Goals Time Frame: May 16, 2019 Eating (QC): 6 Oral Hygiene (QC): 6 Shower/Bathe Self (QC): 4 Upper Body Dressing (QC): 5 Lower Body Dressing (QC): 5 On/Off Footwear (QC): 5 Toileting Hygiene (QC): 5 Toilet/Commode Transfer (QC): 3 (Chet) Additional Goals: 1-Demonstrate ADL Tasks, 2-Verbalize Understanding, 3-Imp roveStrength/José 1=Demonstrate adherence to instructed precautions during ADL tasks. 2=Patient will verbalize/demonstrate understanding of assistive devices/modifications for ADL. 3=Patient will improve strength/tolerance for activity to enable patient to perform ADL's. Speech Mcc Goals Mcc Goals Patient will improve cognitive-communication necessary for safety and daily living tasks with minimal assist. Met BUCKY VIVAS May 10, 2019 14:02
--- NOTE | 2019-05-13 14:33 | Therapy Team Discharge Summary ---
Therapy Discharge Summary Discharge Recommendations Date of Discharge May 10, 2019 at 10:50 Physical Therapy This patient was admitted to ARU post lengthy acute hospital stay secondary to critical illness myopathy. Her PLOF was that she was indep with mobility. Upon admission, she was assist of 2 for bed mobility and required a glenroy for transfers. Treatment consisted of functional mobility training that focused on bed mobility, transisition to sit EOB with core strengthening/balance activities as well as glenroy transfer to the chair to encourage upright activity and functional activity tolerance. At discharge, pt continued to required assist of 2 for bed mobility and transition to sit EOB; in addition, she continued to require a glenroy to transfer to the chair. She did not make functional progress likely secondary to multiple medical issues and complications. Pt did not achieve goals set at evaluation. She transferred from ARU to acute medical floor. Will DC from ARU at this time. Occupational Therapy Decreased Activ Tolerance, Dependent Transfers, Impaired Bed Mobility, Impaired Funct Balance, Impaired I ADL's, Impaired Self-Care Skills PT Half-Way Goals Roller Goals PT Half-Way Goals Time Frame: May 09, 2019 Roll Left to Right (QC): 3 (Chet) Sit to Lying (QC): 3 (Ceht) Lying-Sitting on Side/Bed(QC): 3 (hCet) Sit to Stand (QC): 3 (Chet) Chair/Vyf-ag-Vaokb Xfer(QC): 3 (Chet) Car Transfer (QC): 3 (Chet) Does the Patient Walk: No and Walking Goal NOT indicated Walk 10 feet (QC): 88 Walk 10ft-Uneven Surface(QC): 88 Walk 50ft with 2 Turns (QC): 88 Walk 150 ft (QC): 88 Does the Pt use WC or Scooter?: Yes Wheel 50 feet with 2 turns (QC: 4 (SBA) 1 Step (curb) (QC): 88 4 Steps (QC): 88 12 Steps (QC): 88 Picking up an Object (QC): 88 OT Half-Way Goals Roller Goals Time Frame: May 16, 2019 Eating (QC): 6 Oral Hygiene (QC): 6 Shower/Bathe Self (QC): 4 Upper Body Dressing (QC): 5 Lower Body Dressing (QC): 5 On/Off Footwear (QC): 5 Toileting Hygiene (QC): 5 Toilet/Commode Transfer (QC): 3 (Chet) Additional Goals: 1-Demonstrate ADL Tasks, 2-Verbalize Understanding, 3- ImproveStrength/José 1=Demonstrate adherence to instructed precautions during ADL tasks. 2=Patient will verbalize/demonstrate understanding of assistive devices/modifications for ADL. 3=Patient will improve strength/tolerance for activity to enable patient to perform ADL's. Speech Roller Goals Half-Way Goals Patient will improve cognitive-communication necessary for safety and daily living tasks with minimal assist. Met GEOVANNI LOMAS PT May 13, 2019 14:33
[2019-05-14] MEDS ORDERED: MORP20SO PO (05:43)
[2019-05-14] MEDS ORDERED: LORA2ORA PO (05:43)
--- NOTE | 2019-05-14 08:22 | Therapy Team Discharge Summary ---
Therapy Discharge Summary Discharge Recommendations Date of Discharge May 10, 2019 at 10:50 Therapy D/C Recommendations: 24 hr Supervision, Other, See Comments Occupational Therapy Pt. was treated on ARU to increase overall strength and independence with daily tasks. Pt. sustained medical decline and was transferred to medical floor. No needs were met at time of rehab unit stay. Decreased Activ Tolerance, Decreased UE Strength, Dependent Transfers, Impaired Bed Mobility, Impaired Cognition, Impaired Coordination, Impaired Funct Balance, Impaired I ADL's, Impaired Self-Care Skills, Restricted Funct UE ROM PT Glue Jointer Feeder Goals Glue Jointer Feeder Goals PT Prison Goals Time Frame: May 09, 2019 Roll Left to Right (QC): 3 (Chet) Sit to Lying (QC): 3 (Chet) Lying-Sitting on Side/Bed(QC): 3 (Chet) Sit to Stand (QC): 3 (Chet) Chair/Ypt-un-Lebpy Xfer(QC): 3 (Chet) Car Transfer (QC): 3 (Chet) Does the Patient Walk: No and Walking Goal NOT indicated Walk 10 feet (QC): 88 Walk 10ft-Uneven Surface(QC): 88 Walk 50ft with 2 Turns (QC): 88 Walk 150 ft (QC): 88 Does the Pt use WC or Scooter?: Yes Wheel 50 feet with 2 turns (QC: 4 (SBA) 1 Step (curb) (QC): 88 4 Steps (QC): 88 12 Steps (QC): 88 Picking up an Object (QC): 88 OT Glue Jointer Feeder Goals Prison Goals Time Frame: May 16, 2019 Eating (QC): 6 (not met) Oral Hygiene (QC): 6 (not met) Shower/Bathe Self (QC): 4 (not met) Upper Body Dressing (QC): 5 (not met) Lower Body Dressing (QC): 5 (not met) On/Off Footwear (QC): 5 (not met) Toileting Hygiene (QC): 5 (not met) Toilet/Commode Transfer (QC): 3 (not met) Additional Goals: 1-Demonstrate ADL Tasks, 2-Verbalize Understanding, 3- ImproveStrength/José 1=Demonstrate adherence to instructed precautions during ADL tasks. 2=Patient will verbalize/demonstrate understanding of assistive devices/modifications for ADL. 3=Patient will improve strength/tolerance for activity to enable patient to perform ADL's. Speech Prison Goals Prison Goals Patient will improve cognitive-communication necessary for safety and daily living tasks with minimal assist. Met HEMANT MERCEDES OT May 14, 2019 08:22
--- OUTSIDE RECORDS SUMMARY | 2019-05-15 14:20 | XMS REPORT | Clinical Summary ---
Author Author [facility] Organization [facility] Address Unknown Phone Unavailable Care Team Providers Care Shingle Trimmer Name Role Phone Bryanna Hand PCP Tyrone Suarez MD Unavailable Source Comments Some departments are not documenting in the electronic medical record. If you d o not see the information that you expected, contact Release of Information in [facility] Information Management department at [phone] for further assistan ce in locating additional records.[facility] Allergies No Known Allergies Medications End [...] Take 1 Tab by 3 3 200 500 mg tablet mouth Daily. 9 Active Problems Problem Noted Date Nephrolithiasis 07/10/2008 Family History Medical History Relation Name Comments Cancer Brother Cancer Father Cancer Mother Stroke Mother Diabetes Sister Relation Name Status Comments Brother Father Mother Sister Social History Date Tobacco Use Types Packs/Day Years Used Never Smoker Drinks/Week oz/Week Comments Alcohol Use No Sex Assigned at Date Recorded Not on file Industry Job Start Date Occupation Not on file Not on file Not on file Travel End Travel History Travel Start No recent travel history available. Last Filed Vital Signs Reading Time Taken Comments Vital Sign 159/76 07/10/2008 3:01 PM [employer] Blood Pressure 73 07/10/2008 3:01 PM [employer] Pulse 37.3 C (99.1 F) 07/10/2008 3:01 PM [employer] Temperature - - Respiratory Rate 97% 07/10/2008 3:01 PM [employer] Oxygen Saturation - - Inhaled Oxygen Concentration 67.4 kg (148 lb 9.6 oz) 07/10/2008 6:03 AM [employer] Weight 165.1 cm (5' 5") 07/09/2008 10:00 PM [employer] Height 24.73 07/09/2008 10:00 PM [employer] Body Mass Index Plan of Treatment Health Maintenance Due Date Last Done Comments HEPATITIS C SCREENING 1944 DTAP/TDAP VACCINES (1 - 12/12/1955 Tdap) PHYSICAL (COMPREHENSIVE) 1962 EXAM BREAST CANCER SCREENING 1984 COLORECTAL CANCER 1994 SCREENING SHINGLES RECOMBINANT 1994 VACCINE (1 of 2) OSTEOPOROSIS 2009 SCREENING/MONITORING PNEUMONIA (PCV13/PPSV23) 2009 VACCINES (1 of 2 - PCV13) INFLUENZA VACCINE 12/06/2018 Results Not on filefrom Last 3 Months
--- OUTSIDE RECORDS SUMMARY | 2019-05-15 14:23 | XMS REPORT | Continuity of Care Document ---
Author Organization Unknown Address Unknown Phone Unavailable Allergies Active Description Code Type Severity Reaction Onset Reported/Identified Relationship to Patient Clinical Status Yes levofloxacin [id number] Drug Allergy Mild RASH 07/06/2012 Yes amoxicillin [id number] Drug Aller gy Unknown N/A 05/28/2014 Yes latex [id number] Drug Allergy Unknown N/A 04/18/2018 Medications There is no data. Problems Date Dx Coded Attending Type Code Diagnosis Diagnosed By 02/21/2011 Ot 250.00 DONNY B RAÚL WO COMPL, TYPE II OR UNSPEC TY 02/21/2011 Ot 401.9 HYPE RTENSION NOS 02/21/2011 Ot 733.90 BON E CARTILAGE DIS NOS 02/21/2011 Ot 794.8 ABN LIVER FUNCTION STUDY 02/21/2011 Ot V10.05 HX OF COLONIC MALIGNANCY 02/21/2011 Ot V10.06 HX- RECTAL ANAL MALIGN 02/21/2011 Ot V13.01 PER JUANI HISTORY OF URINARY CALCULI 02/21/2011 Ot V58.67 JULIO CESAR G-TERM (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 02/21/2011 Ot V58.69 OTH MED,LT,CURRENT USE 02/21/2011 Ot V67.2 CHEM OTHERAPY FOLLOW-UP 07/10/2012 Ot 250.00 DONNY B RAÚL WO COMPL, TYPE II OR UNSPEC TY 07/10/2012 Ot 272.4 HYPE RLIPIDEMIA NEC/NOS 07/10/2012 Ot 275.2 DIS MAGNESIUM METABOLISM 07/10/2012 Ot 276.8 HYPO POTASSEMIA 07/10/2012 Ot 401.0 JOB GNANT HYPERTENSION 07/10/2012 Ot 571.49 CHR ONIC HEPATITIS NEC 07/10/[address] PAIN NEC 07/10/2012 Ot V10.05 HX OF COLONIC MALIGNANCY 07/10/2012 Ot V10.06 HX- RECTAL ANAL MALIGN 07/10/2012 Ot V10.42 HX- UTERUS MALIGNANCY NEC 07/10/2012 Ot V15.82 HIS TORY OF TOBACCO USE 07/10/2012 Ot V44.2 ILEO STOMY STATUS 07/10/2012 Ot V44.3 COLO STOMY STATUS 08/09/2012 Ot 327.23 OBS TRUCTIVE SLEEP APNEA (ADULT) (PEDIATR 11/13/2012 JANAY AGUILERA MD Ot 250.0 0 DIAB RAÚL WO COMPL, TYPE II OR UNSPEC TY 11/13/2012 JANAY AGUILERA MD Ot 592.0 CALCULUS OF KIDNEY 11/13/2012 JANAY AGUILERA MD Ot V58.6 7 LONG-TERM (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 07/05/2013 HARSH WALTON MD Ot 250. 00 DIAB RAÚL WO COMPL, TYPE II OR UNSPEC TY 07/05/2013 HARSH WALTON MD Ot 272. 4 HYPERLIPIDEMIA NEC/NOS 07/05/2013 HARSH WALTON MD Ot 275. 2 DIS MAGNESIUM METABOLISM 07/05/2013 HARSH WALTON MD Ot 276. 8 HYPOPOTASSEMIA 07/05/2013 HARSH WALTON MD Ot 300. 00 ANXIETY STATE NOS 07/05/2013 HARSH WALTON MD Ot 401. 1 BENIGN HYPERTENSION 07/05/2013 HARSH WALTON MD Ot 414. 01 CORONARY ATHEROSCLEROSIS OF [place] CORON 07/05/2013 HARSH WALTON MD Ot V10. 05 HX OF COLONIC MALIGNANCY 07/05/2013 HARSH WALTON MD Ot V44. 2 ILEOSTOMY STATUS 07/05/2013 HARSH WALTON MD Ot V58. 67 LONG-TERM (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 05/03/2014 JUAN [...] 05/03/2014 JUAN CARLOS WEISS MD Ot V58.69 OTH MED,LT,CURRENT USE 05/07/2014 BHAVANI GALLAGHER MD Ot 250. 00 05/07/2014 BHAVANI GALLAGHER MD Ot 401. 9 05/07/2014 AILEEN KRISHNAMURTHY, BHAVANI Ot 733. 90 05/07/2014 AILEEN KRISHNAMURTHY, BHAVANI Ot V10. 05 05/07/2014 AILEEN KRISHNAMURTHY, BHAVANI Ot V10. 06 05/07/2014 AILEEN KRISHNAMURTHY, BHAVANI Ot V13. 01 05/07/2014 AILEEN KRISHNAMURTHY, BHAVANI Ot V58. 67 05/07/2014 AILEEN KRISHNAMURTHY, BHAVANI Ot V58. 69 05/07/2014 AILEEN KRISHNAMURTHY, BHAVANI Ot V67. 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 9 TYPE 2 DIABETES MELLITUS WITHOUT COMPLIC 07/17/2015 [place] KRISHNAMURTHY, HARSH Gomez Ot I10 ESSENTIAL (PRIMARY) HYPERTENSION 07/17/2015 [place] KRISHNAMURTHY, HARSH Gomez Ot M47.812 SPONDYLOSIS W/O MYELOPATHY OR RADICULOPA 07/17/2015 [place] KRISHNAMURTHY, HARSH Gomez Ot R25. 2 CRAMP AND SPASM 07/17/2015 [place] KRISHNAMURTHY, HARSH Gomez Ot Z79. 4 PENITENTIARY (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 07/20/2015 [place] KRISHNAMURTHY, HARSH Gomez Ot E11. 9 07/20/2015 [place] KRISHNAMURTHY, HARSH Jason Ot I10 07/20/2015 [place] KRISHNAMURTHY, HARSH Gomez Ot M47.812 07/20/2015 [place] KRISHNAMURTHY, HARSH Jason Ot R25. 2 07/20/2015 [place] KRISHNAMURTHY, HARSH Jason Ot Z79. 4 08/11/2015 [place] KRISHNAMURTHY, HARSH Jason Ot E11. 9 08/11/2015 [place] KRISHNAMURTHY, HARSH Jason Ot I10 08/11/2015 [place] KRISHNAMURTHY, HARSH Jason Ot M47.812 08/11/2015 [place] KRISHNAMURTHY, HARSH Jason Ot R25. 2 08/11/2015 [place] KRISHNAMURTHY, HARSH Jason Ot Z79. 4 08/19/2015 Ot Z12.31 08/22/2015 KAREN LOPEZ MD Ot E11 .9 TYPE 2 DIABETES MELLITUS WITHOUT COMPLIC 08/22/2015 KAREN LOPEZ MD Ot I10 ESSENTIAL (PRIMARY) HYPERTENSION 08/22/2015 KAREN LOPEZ MD Ot J06 .9 ACUTE UPPER RESPIRATORY INFECTION, UNSPE 08/22/2015 KAREN LOPEZ MD Ot Z79 .4 ASSISTANT CASE MANAGER (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 08/22/2015 KAREN LOPEZ MD Ot Z93 .2 ILEOSTOMY STATUS 08/24/2015 KAREN LOPEZ MD Ot E11 .9 TYPE 2 DIABETES MELLITUS WITHOUT COMPLIC 08/24/2015 KAREN LOPEZ MD Ot I10 ESSENTIAL (PRIMARY) HYPERTENSION 08/24/2015 KAREN LOPEZ MD Ot J06 .9 ACUTE UPPER RESPIRATORY INFECTION, UNSPE 08/24/2015 KAREN LOPEZ MD Ot Z79 .4 PENITENTIARY (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 08/24/2015 KAREN LOPEZ MD Ot Z93 .2 ILEOSTOMY STATUS 09/09/2015 Ot Z12.31 ENC NTR SCREEN MAMMOGRAM FOR MALIGNANT NE 09/18/2015 SHAILA WEST DO Ot E11.9 TYPE 2 DIABETES MELLITUS WITHOUT COMPLIC 09/18/2015 SHAILA WEST DO, Ot K52.9 NONINFECTIVE GASTROENTERITIS AND COLITIS 09/18/2015 SHAILA WEST DO, Ot R11.2 NAUSEA WITH VOMITING, UNSPECIFIED 09/18/2015 SHAILA WEST DO Ot R19.7 DIARRHEA, UNSPECIFIED 09/18/2015 SHAILA WEST DO, Ot R25.2 CRAMP AND SPASM 09/18/2015 SHAILA WEST DO, Ot Z79.4 PENITENTIARY (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 10/06/2015 ALE KRISHNAMURTHY, JANAY A Ot N20.0 CALCULUS OF KIDNEY 10/07/2015 HARSH ATKINSON MD Ot E11. 9 TYPE 2 DIABETES MELLITUS WITHOUT COMPLIC 10/07/2015 HARSH ATKINSON MD Ot I10 ESSENTIAL (PRIMARY) HYPERTENSION 10/07/2015 HARSH ATKINSON MD Ot M47.812 SPONDYLOSIS W/O MYELOPATHY OR RADICULOPA 10/07/2015 HARSH ATKINSON MD Ot R25. 2 CRAMP AND SPASM 10/07/2015 HARSH ATKINSON MD Ot Z79. 4 ASSISTANT CASE MANAGER (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 10/07/2015 HARSH WALTON MD Ot E11. 9 TYPE 2 DIABETES MELLITUS WITHOUT COMPLIC 10/07/2015 HARSH WALTON MD Ot E78. 5 HYPERLIPIDEMIA, UNSPECIFIED 10/07/2015 HARSH WALTON MD Ot E86. 9 VOLUME DEPLETION, UNSPECIFIED 10/07/2015 HARSH WALTON MD Ot E87. 2 ACIDOSIS 10/07/2015 HARSH WALTON MD Ot F32. 9 MAJOR DEPRESSIVE DISORDER, SINGLE EPISOD 10/07/2015 HARSH WALTON MD Ot I10 ESSENTIAL (PRIMARY) HYPERTENSION 10/07/2015 ISABELLE KRISHNAMURTHY, HARSH Mckinley Ot M54. 2 CERVICALGIA 10/07/2015 ISABELLE KRISHNAMURTHY, HARSH Mckinley Ot M54. 9 DORSALGIA, UNSPECIFIED 10/07/2015 ISABELLE KRISHNAMURTHY, HARSH Mckinley Ot N17. 9 ACUTE KIDNEY FAILURE, UNSPECIFIED 10/07/2015 ISABELLE KRISHNAMURTHY, HARSH Mckinley Ot R19. 7 DIARRHEA, UNSPECIFIED 10/07/2015 ISABELLE KRISHNAMURTHY, HARSH Mckinley Ot Z79. 4 PENITENTIARY (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 10/07/2015 ISABELLE KRISHNAMURTHY, HARSH Mckinley Ot Z93. 2 ILEOSTOMY STATUS 10/23/2015 ALE KRISHNAMURTHY, JANAY Robert Ot N20.0 CALCULUS OF KIDNEY 10/31/2015 ALE KRISHNAMURTHY, JANAY A Ot N20.0 CALCULUS OF KIDNEY 11/06/2015 [place] KRISHNAMURTHY, HARSH Gomez Ot E11. 9 TYPE 2 DIABETES MELLITUS WITHOUT COMPLIC 11/06/2015 HARSH ATKINSON MD Ot I10 ESSENTIAL (PRIMARY) HYPERTENSION 11/06/2015 HARSH ATKINSON MD Ot M47.812 SPONDYLOSIS W/O MYELOPATHY OR RADICULOPA 11/06/2015 HARSH ATKINSON MD Ot R25. 2 CRAMP AND SPASM 11/06/2015 HARSH ATKINSON MD Ot Z79. 4 PENITENTIARY (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 12/07/2015 HARSH ATKINSON MD Ot E11. 9 TYPE 2 DIABETES MELLITUS WITHOUT COMPLIC 12/07/2015 HARSH ATKINSON MD Ot I10 ESSENTIAL (PRIMARY) HYPERTENSION 12/07/2015 HARSH ATKINSON MD Ot M47.812 SPONDYLOSIS W/O MYELOPATHY OR RADICULOPA 12/07/2015 HARSH ATKINSON MD Ot R25. 2 CRAMP AND SPASM 12/07/2015 HARSH ATKINSON MD Ot Z79. 4 PENITENTIARY (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 02/06/2016 HARSH ATKINSON MD Ot E11. 9 TYPE 2 DIABETES MELLITUS WITHOUT COMPLIC 02/06/2016 HARSH ATKINSON MD Ot I10 ESSENTIAL (PRIMARY) HYPERTENSION 02/06/2016 HARSH ATKINSON MD Ot M47.812 SPONDYLOSIS W/O MYELOPATHY OR RADICULOPA 02/06/2016 HARSH ATKINSON MD Ot R25. 2 CRAMP AND SPASM 02/06/2016 HARSH ATKINSON MD Ot Z79. 4 PENITENTIARY (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 03/08/2016 HARSH ATKINSON MD Ot E11. 9 TYPE 2 DIABETES MELLITUS WITHOUT COMPLIC 03/08/2016 HARSH ATKINSON MD Ot I10 ESSENTIAL (PRIMARY) HYPERTENSION 03/08/2016 HARSH ATKINSON MD Ot M47.812 SPONDYLOSIS W/O MYELOPATHY OR RADICULOPA 03/08/2016 HARSH ATKINSON MD Ot R25. 2 CRAMP AND SPASM 03/08/2016 HARSH ATKINSON MD Ot Z79. 4 PENITENTIARY (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 04/12/2016 BHAVANI GALLAGHER MD, Ot Z08 ENCNTR FOR FOLLOW-UP EXAM AFTER TRTMT FO 04/12/2016 BHAVANI GALLAGHER MD Ot Z85.038 PERSONAL HISTORY [...] EXAM AFTER TRTMT FO 04/21/2016 BHAVANI GALLAGHER MD, Ot Z85.038 PERSONAL HISTORY OF MALIGNANT NEOPLASM O 04/27/2016 Ot 153.9 JOB GNANT EDER COLON NOS 04/27/2016 Ot 250.00 DONNY B RAÚL WO COMPL, TYPE II OR UNSPEC TY 04/27/2016 Ot 154.3 JOB GNANT EDER ANUS NOS 04/27/2016 Ot 250.00 DONNY B RAÚL WO COMPL, TYPE II OR UNSPEC TY 04/27/2016 Ot 401.9 HYPE RTENSION NOS 04/27/2016 Ot 478.19 OTH ER DISEASE OF NASAL CAVITY AND SINUSE 04/27/2016 Ot 733.90 BON E CARTILAGE DIS NOS 04/27/2016 Ot 789.04 ABD OMINAL PAIN, LEFT LOWER QUADRANT 04/27/2016 Ot 794.8 ABN LIVER FUNCTION STUDY 04/27/2016 Ot V13.01 PER JUANI HISTORY OF URINARY CALCULI 04/27/2016 Ot V58.67 JULIO CESAR G-TERM (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 04/27/2016 Ot V58.69 OTH MED,LT,CURRENT USE 04/27/2016 Ot V87.41 PER JUANI HISTORY OF ANTINEOPLASTIC CHEMO 04/27/2016 Ot 250.00 DONNY B RAÚL WO COMPL, TYPE II OR UNSPEC TY 04/27/2016 Ot 401.9 HYPE RTENSION NOS 04/27/2016 Ot 733.90 BON E CARTILAGE DIS NOS 04/27/2016 Ot 790.6 ABN BLOOD CHEMISTRY NEC 04/27/2016 Ot V10.05 HX OF COLONIC MALIGNANCY 04/27/2016 Ot V10.06 HX- RECTAL ANAL MALIGN 04/27/2016 Ot V13.01 PER JUANI HISTORY OF URINARY CALCULI 04/27/2016 Ot V58.67 JULIO CESAR G-TERM (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 04/27/2016 Ot V58.69 OTH MED,LT,CURRENT USE 04/27/2016 Ot V67.2 CHEM OTHERAPY FOLLOW-UP 04/27/2016 Ot V76.12 OTH SCREEN MAMMO- MALIGN NEOPLASM OF ALMA 04/27/2016 Ot 250.00 DONNY B RAÚL WO COMPL, TYPE II OR UNSPEC TY 04/27/2016 Ot 401.9 HYPE RTENSION NOS 04/27/2016 Ot 733.90 BON E CARTILAGE DIS NOS 04/27/2016 Ot V10.05 HX OF COLONIC MALIGNANCY 04/27/2016 Ot V10.06 HX- RECTAL ANAL MALIGN 04/27/2016 Ot V13.01 PER JUANI HISTORY OF URINARY CALCULI 04/27/2016 Ot V58.67 JULIO CESAR G-TERM (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 04/27/2016 Ot V58.69 OTH MED,LT,CURRENT USE 04/27/2016 Ot V67.2 CHEM OTHERAPY FOLLOW-UP 04/27/2016 Ot 153.9 JOB GNANT EDER COLON NOS 04/27/2016 Ot 250.00 DONNY B RAÚL WO COMPL, TYPE II OR UNSPEC TY 04/27/2016 Ot 401.9 HYPE RTENSION NOS 04/27/2016 Ot 733.90 BON E CARTILAGE DIS NOS 04/27/2016 Ot V10.05 HX OF COLONIC MALIGNANCY 04/27/2016 Ot V10.06 HX- RECTAL ANAL MALIGN 04/27/2016 Ot V13.01 PER JUANI HISTORY OF URINARY CALCULI 04/27/2016 Ot V58.67 JULIO CESAR G-TERM (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 04/27/2016 Ot V58.69 OTH MED,LT,CURRENT USE 04/27/2016 Ot V67.2 CHEM OTHERAPY FOLLOW-UP 04/27/2016 Ot 153.9 JOB GNANT EDER COLON NOS 04/27/2016 Ot 733.90 BON E CARTILAGE DIS NOS 04/27/2016 BHAVANI GALLAGHER MD Ot 153. 9 MALIGNANT EDER COLON NOS 04/27/2016 ISABELLE KRIHSNAMURTHY, HARSH Mckinley Ot V76. 12 OTH SCREEN MAMMO-MALIGN NEOPLASM OF ALMA 04/27/2016 ALE KRISHNAMURTHY, JANAY Robert Ot 592.0 CALCULUS OF KIDNEY 04/27/2016 ALE KRISHNAMURTHY, JANAY Robert Ot 592.0 CALCULUS OF KIDNEY 04/27/2016 JANAY AGUILERA MD Ot V72.8 3 EXAM PRE-OPERATIVE NEC 04/27/2016 ALE KRISHNAMURTHY, JANAY Robert Ot V74.8 SCREEN-BACTERIAL DIS NEC 04/27/2016 ISABELLE KRISHNAMURTHY, HARSH Mckinley Ot 793. 80 UNSPEC ABNORMAL MAMMOGRAM 04/27/2016 ALE KRISHNAMURTHY, JANAY Robert Ot 592.0 CALCULUS OF KIDNEY 04/27/2016 BHAVANI GALLAGHER MD Ot 250. 00 DIAB RAÚL WO COMPL, TYPE II OR UNSPEC TY 04/27/2016 BHAVANI GALLAGHER MD Ot 401. 9 HYPERTENSION NOS 04/27/2016 BHAVANI GALLAGHER MD Ot 733. 90 BONE CARTILAGE DIS NOS 04/27/2016 BHAVANI GALLAGHER MD Ot V10. 05 HX OF COLONIC MALIGNANCY 04/27/2016 BHAVANI GALLAGHER MD Ot V10. 06 HX-RECTAL ANAL MALIGN 04/27/2016 BHAVANI GALLAGHER MD Ot V13. 01 PERSONAL HISTORY OF URINARY CALCULI 04/27/2016 BHAVANI GALLAGHER MD Ot V58. 67 LONG-TERM (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 04/27/2016 BHAVANI GALLAGHER MD Ot V58. 69 OTH MED,LT,CURRENT USE 04/27/2016 BHAVANI GALLAGHER MD Ot V67. 2 CHEMOTHERAPY FOLLOW-UP 04/27/2016 JANAY AGUILERA MD Ot 592.9 URINARY CALCULUS NOS 04/27/2016 BHAVANI GALLAGHER MD Ot 250. 00 DIAB RAÚL WO COMPL, TYPE II OR UNSPEC TY 04/27/2016 BHAVANI GALLAGHER MD Ot 401. 9 HYPERTENSION NOS 04/27/2016 BHAVANI GALLAGHER MD Ot 733. 90 BONE CARTILAGE DIS NOS 04/27/2016 BHAVANI GALLAGHER MD Ot V10. 05 HX OF COLONIC MALIGNANCY 04/27/2016 BHAVANI GALLAGHER MD Ot V10. 06 HX-RECTAL ANAL MALIGN 04/27/2016 BHAVANI GALLAGHER MD Ot V13. 01 PERSONAL HISTORY OF URINARY CALCULI 04/27/2016 BHAVANI GALLAGHER MD Ot V58. 67 LONG-TERM (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 04/27/2016 BHAVANI GALLAGHER MD Ot V58. 69 OTH MED,LT,CURRENT USE 04/27/2016 BHAVANI GALLAGHER MD Ot V67. 2 CHEMOTHERAPY FOLLOW-UP 04/27/2016 ALLA KRISHNAMURTHY, HERB Naik Ot 709.9 SKIN DISORDER NOS 04/27/2016 ALLA KRISHNAMURTHY, HERB Naik Ot V72.84 EXAM PRE-OPERATIVE NOS 04/27/2016 ALLA KRISHNAMURTHY, HERB Naik Ot V74.8 SCREEN-BACTERIAL DIS NEC 04/27/2016 JANAY AGUILERA MD Ot 592.9 URINARY CALCULUS NOS 04/27/2016 BHAVANI GALLAGHER MD Ot Z08 ENCNTR FOR FOLLOW-UP EXAM AFTER TRTMT FO 04/27/2016 BHAVANI GALLAGHER MD Ot Z85.038 PERSONAL HISTORY OF MALIGNANT NEOPLASM O 04/27/2016 Ot Z12.31 ENC NTR SCREEN MAMMOGRAM FOR MALIGNANT NE 04/27/2016 JANAY AGUILERA MD Ot N20.0 CALCULUS OF KIDNEY 04/28/2016 Ot 153.9 JOB GNANT EDER COLON NOS 04/28/2016 Ot 250.00 DONNY B RAÚL WO COMPL, TYPE II OR UNSPEC TY 04/28/2016 Ot 154.3 JOB GNANT EDER ANUS NOS 04/28/2016 Ot 250.00 DONNY B RAÚL WO COMPL, TYPE II OR UNSPEC TY 04/28/2016 Ot 401.9 HYPE RTENSION NOS 04/28/2016 Ot 478.19 OTH ER DISEASE OF NASAL CAVITY AND SINUSE 04/28/2016 Ot 733.90 BON E CARTILAGE DIS NOS 04/28/2016 Ot 789.04 ABD OMINAL PAIN, LEFT LOWER QUADRANT 04/28/2016 Ot 794.8 ABN LIVER FUNCTION STUDY 04/28/2016 Ot V13.01 PER JUANI HISTORY OF URINARY CALCULI 04/28/2016 Ot V58.67 JULIO CESAR G-TERM (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 04/28/2016 Ot V58.69 OTH MED,LT,CURRENT USE 04/28/2016 Ot V87.41 PER JUANI HISTORY OF ANTINEOPLASTIC CHEMO 04/28/2016 Ot 250.00 DONNY B RAÚL WO COMPL, TYPE II OR UNSPEC TY 04/28/2016 Ot 401.9 HYPE RTENSION NOS 04/28/2016 Ot 733.90 BON E CARTILAGE DIS NOS 04/28/2016 Ot 790.6 ABN BLOOD CHEMISTRY NEC 04/28/2016 Ot V10.05 HX OF COLONIC MALIGNANCY 04/28/2016 Ot V10.06 HX- RECTAL ANAL MALIGN 04/28/2016 Ot V13.01 PER JUANI HISTORY OF URINARY CALCULI 04/28/2016 Ot V58.67 JULIO CESAR G-TERM (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 04/28/2016 Ot V58.69 OTH MED,LT,CURRENT USE 04/28/2016 Ot V67.2 CHEM OTHERAPY FOLLOW-UP 04/28/2016 Ot V76.12 OTH SCREEN MAMMO- MALIGN NEOPLASM OF ALMA 04/28/2016 Ot 250.00 DONNY B RAÚL WO COMPL, TYPE II OR UNSPEC TY 04/28/2016 Ot 401.9 HYPE RTENSION NOS 04/28/2016 Ot 733.90 BON E CARTILAGE DIS NOS 04/28/2016 Ot V10.05 HX OF COLONIC MALIGNANCY 04/28/2016 Ot V10.06 HX- RECTAL ANAL MALIGN 04/28/2016 Ot V13.01 PER JUANI HISTORY OF URINARY CALCULI 04/28/2016 Ot V58.67 JULIO CESAR G-TERM (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 04/28/2016 Ot V58.69 OTH MED,LT,CURRENT USE 04/28/2016 Ot V67.2 CHEM OTHERAPY FOLLOW-UP 04/28/2016 Ot 153.9 JOB GNANT EDER COLON NOS 04/28/2016 Ot 250.00 DONNY B RAÚL WO COMPL, TYPE II OR UNSPEC TY 04/28/2016 Ot 401.9 HYPE RTENSION NOS 04/28/2016 Ot 733.90 BON E CARTILAGE DIS NOS 04/28/2016 Ot V10.05 HX OF COLONIC MALIGNANCY 04/28/2016 Ot V10.06 HX- RECTAL ANAL MALIGN 04/28/2016 Ot V13.01 PER JUANI HISTORY OF URINARY CALCULI 04/28/2016 Ot V58.67 JULIO CESAR G-TERM (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 04/28/2016 Ot V58.69 OTH MED,LT,CURRENT USE 04/28/2016 Ot V67.2 CHEM OTHERAPY FOLLOW-UP 04/28/2016 Ot 153.9 JOB GNANT EDER COLON NOS 04/28/2016 Ot 733.90 BON E CARTILAGE DIS NOS 04/28/2016 BHAVANI GALLAGHER MD Ot 153. 9 MALIGNANT EDER COLON NOS 04/28/2016 ISABELLE KRISHNAMURTHY, HARSH Mckinley Ot V76. 12 OTH SCREEN MAMMO-MALIGN NEOPLASM OF ALMA 04/28/2016 JANAY AGUILERA MD Ot 592.0 CALCULUS OF KIDNEY 04/28/2016 JANAY AGUILERA MD Ot 592.0 CALCULUS OF KIDNEY 04/28/2016 JANAY AGUILERA MD Ot V72.8 3 EXAM PRE-OPERATIVE NEC 04/28/2016 JANAY AGUILERA MD Ot V74.8 SCREEN-BACTERIAL DIS NEC 04/28/2016 ISABELLE KRISHNAMURTHY, HARSH Mckinley Ot 793. 80 UNSPEC ABNORMAL MAMMOGRAM 04/28/2016 JANAY AGUILERA MD Ot 592.0 CALCULUS OF KIDNEY 04/28/2016 BHAVANI GALLAGHER MD Ot 250. 00 DIAB RAÚL WO COMPL, TYPE II OR UNSPEC TY 04/28/2016 BHAVANI GALLAGHER MD Ot 401. 9 HYPERTENSION NOS 04/28/2016 BHAVANI GALLAGHER MD Ot 733. 90 BONE CARTILAGE DIS NOS 04/28/2016 BHAVANI GALLAGHER MD Ot V10. 05 HX OF COLONIC MALIGNANCY 04/28/2016 BHAVANI GALLAGHER MD Ot V10. 06 HX-RECTAL ANAL MALIGN 04/28/2016 BHAVANI GALLAGHER MD Ot V13. 01 PERSONAL HISTORY OF URINARY CALCULI 04/28/2016 BHAVANI GALLAGHER MD Ot V58. 67 LONG-TERM (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 04/28/2016 BHAVANI GALLAGHER MD Ot V58. 69 OTH MED,LT,CURRENT USE 04/28/2016 BHAVANI GALLAGHER MD Ot V67. 2 CHEMOTHERAPY FOLLOW-UP 04/28/2016 JANAY AGUILERA MD Ot 592.9 URINARY CALCULUS NOS 04/28/2016 BHAVANI GALLAGHER MD Ot 250. 00 DIAB RAÚL WO COMPL, TYPE II OR UNSPEC TY 04/28/2016 BHAVANI GALLAGHER MD Ot 401. 9 HYPERTENSION NOS 04/28/2016 BHAVANI GALLAGHER MD Ot 733. 90 BONE CARTILAGE DIS NOS 04/28/2016 BHAVANI GALLAGHER MD Ot V10. 05 HX OF COLONIC MALIGNANCY 04/28/2016 BHAVANI GALLAGHER MD Ot V10. 06 HX-RECTAL ANAL MALIGN 04/28/2016 BHAVANI GALLAGHER MD Ot V13. 01 PERSONAL HISTORY OF URINARY CALCULI 04/28/2016 BHAVANI GALLAGHER MD Ot V58. 67 LONG-TERM (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 04/28/2016 BHAVANI GALLAGHER MD Ot V58. 69 OTH MED,LT,CURRENT USE 04/28/2016 BHAVANI GALLAGHER MD Ot V67. 2 CHEMOTHERAPY FOLLOW-UP 04/28/2016 ALAL KRISHNAMURTHY, HERB Naik Ot 709.9 SKIN DISORDER NOS 04/28/2016 ALLA KRISHNAMURTHY, HERB Naik Ot V72.84 EXAM PRE-OPERATIVE NOS 04/28/2016 ALLA KRISHNAMURTHY, HERB Naik Ot V74.8 SCREEN-BACTERIAL DIS NEC 04/28/2016 JANAY AGUILERA MD Ot 592.9 URINARY CALCULUS NOS 04/28/2016 BHAVANI GALLAGHER MD Ot Z08 ENCNTR FOR FOLLOW-UP EXAM AFTER TRTMT FO 04/28/2016 BHAVANI GALLAGHER MD Ot Z85.038 PERSONAL HISTORY OF MALIGNANT NEOPLASM O 04/28/2016 Ot Z12.31 ENC NTR SCREEN MAMMOGRAM FOR MALIGNANT NE 04/28/2016 JANAY AGUILERA MD Ot N20.0 CALCULUS OF KIDNEY 04/28/2016 ISABELLE KRISHNAMURTHY, HARSH Mckinley Ot R04. 2 HEMOPTYSIS 05/10/2016 BHAVANI GALLAGHER MD Ot Z08 ENCNTR FOR FOLLOW-UP EXAM AFTER TRTMT FO 05/10/2016 BHAVANI GALLAGHER MD, Ot Z85.038 PERSONAL HISTORY OF MALIGNANT NEOPLASM O 05/18/2016 ISABELLE KRISHNAMURTHY, HARSH Mckinley Ot R04. 2 HEMOPTYSIS 05/18/2016 BHAVANI GALLAGHER MD, Ot Z08 ENCNTR FOR FOLLOW-UP EXAM AFTER TRTMT FO 05/18/2016 BHAVANI GALLAGHER MD, Ot Z85.038 PERSONAL HISTORY OF MALIGNANT NEOPLASM O 05/30/2016 ISABELLE KRISHNAMURTHY, HARSH Mckinley Ot R04. 2 HEMOPTYSIS 06/01/2016 BHAVANI GALLAGHER MD, Ot E04. 2 NONTOXIC MULTINODULAR GOITER 06/01/2016 BHAVANI GALLAGHER MD, Ot E11. 9 TYPE 2 DIABETES MELLITUS WITHOUT COMPLIC 06/01/2016 BHAVANI GALLAGHER MD, Ot I10 ESSENTIAL (PRIMARY) HYPERTENSION 06/01/2016 BHAVANI GALLAGHER MD, Ot M89. 9 DISORDER OF BONE, UNSPECIFIED 06/01/2016 BHAVANI GALLAGHER MD, Ot08 ENCNTR FOR FOLLOW-UP EXAM AFTER TRTMT FO 06/01/2016 BHAVANI GALLAGHER MD, Ot Z79. 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 2 NONTOXIC MULTINODULAR GOITER 06/07/2016 BHAVANI GALLAGHER MD, Ot E04. 2 NONTOXIC MULTINODULAR GOITER 06/07/2016 BHAVANI GALLAGHER MD, Ot E11. 9 TYPE 2 DIABETES MELLITUS WITHOUT COMPLIC 06/07/2016 BHAVANI GALLAGHER MD, Ot I10 ESSENTIAL (PRIMARY) HYPERTENSION 06/07/2016 BHAVANI GALLAGHER MD, Ot M89. 9 DISORDER OF BONE, UNSPECIFIED 06/07/2016 BHAVANI GALLAGHER MD, Ot Z08 ENCNTR FOR FOLLOW-UP EXAM AFTER TRTMT FO 06/07/2016 BHAVANI GALLAGHER MD, Ot Z79. 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 2 NONTOXIC MULTINODULAR GOITER 06/28/2016 BHAVANI GALLAGHER MD, Ot E11. 9 TYPE 2 DIABETES MELLITUS WITHOUT COMPLIC 06/28/2016 BHAVANI GALLAGHER MD, Ot I10 ESSENTIAL (PRIMARY) HYPERTENSION 06/28/2016 BHAVANI GALLAGHER MD, Ot M89. 9 DISORDER OF BONE, UNSPECIFIED 06/28/2016 BHAVANI GALLAGHER MD, Ot Z08 ENCNTR FOR FOLLOW-UP EXAM AFTER TRTMT FO 06/28/2016 BHAVANI GALLAGHER MD, Ot Z79. 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 2 NONTOXIC MULTINODULAR GOITER 06/29/2016 BHAVANI GALLAGHER MD, Ot E04. 2 NONTOXIC MULTINODULAR GOITER 06/29/2016 BHAVANI GALLAGHER MD, Ot E11. 9 TYPE 2 DIABETES MELLITUS WITHOUT COMPLIC 06/29/2016 BHAVANI GALLAGHER MD, Ot I10 ESSENTIAL (PRIMARY) HYPERTENSION 06/29/2016 BHAVANI GALLAGHER MD, Ot M89. 9 DISORDER OF BONE, UNSPECIFIED 06/29/2016 BHAVANI GALLAGHER MD, Ot Z08 ENCNTR FOR FOLLOW-UP EXAM AFTER TRTMT FO 06/29/2016 BHAVANI GALLAGHER MD, Ot Z79. 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 2 NONTOXIC MULTINODULAR GOITER 06/30/2016 BHAVANI GALLAGHER MD, Ot E11. 9 TYPE 2 DIABETES MELLITUS WITHOUT COMPLIC 06/30/2016 BHAVANI GALLAGHER MD, Ot I10 ESSENTIAL (PRIMARY) HYPERTENSION 06/30/2016 BHAVANI GALLAGHER MD, Ot M89. 9 DISORDER OF BONE, UNSPECIFIED 06/30/2016 BHAVANI GALLAGHER MD, Ot Z08 ENCNTR FOR FOLLOW-UP EXAM AFTER TRTMT FO 06/30/2016 BHAVANI GALLAGHER MD, Ot Z79. 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 2 NONTOXIC MULTINODULAR GOITER 07/07/2016 BHAVANI GALLAGHER MD, Ot E04. 2 NONTOXIC MULTINODULAR GOITER 07/07/2016 BHAVANI GALLAGHER MD, Ot E11. 9 TYPE 2 DIABETES MELLITUS WITHOUT COMPLIC 07/07/2016 BHAVANI GALLAGHER MD Ot I10 ESSENTIAL (PRIMARY) HYPERTENSION 07/07/2016 BHAVANI GALLAGHER MD, Ot M89. 9 DISORDER OF BONE, UNSPECIFIED 07/07/2016 BHAVANI GALLAGHER MD, Ot Z08 ENCNTR FOR FOLLOW-UP EXAM AFTER TRTMT FO 07/07/2016 BHAVANI GALLAGHER MD, Ot Z79. 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 2 MIXED HYPERLIPIDEMIA 08/01/2016 NAYA URIAS MD Ot I10 ESSENTIAL (PRIMARY) HYPERTENSION 08/01/2016 NAYA URIAS MD Ot I25. 10 ATHSCL HEART DISEASE OF [place] CORONARY 08/01/2016 NAYA URIAS MD Ot R07. 89 OTHER CHEST PAIN 08/01/2016 NAYA URIAS MD Ot Z82. 3 FAMILY HISTORY OF STROKE 08/03/2016 BHAVANI GALLAGHER MD Ot E04. 2 NONTOXIC MULTINODULAR GOITER 08/03/2016 BHAVANI GALLAGHER MD Ot E11. 9 TYPE 2 DIABETES MELLITUS WITHOUT COMPLIC 08/03/2016 BHAVANI GALLAGHER MD, Ot I10 ESSENTIAL (PRIMARY) HYPERTENSION 08/03/2016 BHAVANI GALLAGHER MD Ot M89. 9 DISORDER OF BONE, UNSPECIFIED 08/03/2016 BHAVANI GALLAGHER MD, Ot Z08 ENCNTR FOR FOLLOW-UP EXAM AFTER TRTMT FO 08/03/2016 BHAVANI GALLAGHER MD Ot Z79. 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 2 MIXED HYPERLIPIDEMIA 08/03/2016 NAYA URIAS MD Ot I10 ESSENTIAL (PRIMARY) HYPERTENSION 08/03/2016 NAYA URIAS MD Ot I25. 10 ATHSCL HEART DISEASE OF [place] CORONARY 08/03/2016 NAYA URIAS MD Ot R07. 89 OTHER CHEST PAIN 08/03/2016 NAYA URIAS MD Ot Z82. 3 FAMILY HISTORY OF STROKE 08/04/2016 NAYA URIAS MD Ot E78. 2 MIXED HYPERLIPIDEMIA 08/04/2016 NAYA URIAS MD Ot I10 ESSENTIAL (PRIMARY) HYPERTENSION 08/04/2016 NAYA URIAS MD Ot I25. 10 ATHSCL HEART DISEASE OF [place] CORONARY 08/04/2016 NAYA URIAS MD Ot R07. 89 OTHER CHEST PAIN 08/04/2016 NAYA URIAS MD Ot Z82. 3 FAMILY HISTORY OF STROKE 08/23/2016 HARSH WALTON MD Ot N60. 01 SOLITARY CYST OF RIGHT BREAST 08/23/2016 AHRSH WALTON MD Ot N64. 4 MASTODYNIA 08/23/2016 HARSH WALTON MD Ot N60. 01 SOLITARY CYST OF RIGHT BREAST 08/23/2016 HARSH WALTON MD Ot N64. 4 MASTODYNIA 08/23/2016 HARSH WALTON MD Ot N60. 01 SOLITARY CYST OF RIGHT BREAST 08/23/2016 HARSH WALTON MD Ot N64. 4 MASTODYNIA 08/23/2016 BHAVANI GALLAGHER MD Ot E04. 2 NONTOXIC MULTINODULAR GOITER 08/23/2016 BHAVANI GALLAGHER MD Ot E11. 9 TYPE 2 DIABETES MELLITUS WITHOUT COMPLIC 08/23/2016 BHAVANI GALLAGHER MD, Ot I10 ESSENTIAL (PRIMARY) HYPERTENSION 08/23/2016 BHAVANI GALLAGHER MD, Ot M89. 9 DISORDER OF BONE, UNSPECIFIED 08/23/2016 BHAVANI GALLAGHER MD, Ot Z08 ENCNTR FOR FOLLOW-UP EXAM AFTER TRTMT FO 08/23/2016 BHAVANI GALLAGHER MD, Ot Z79. 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 01 SOLITARY CYST OF RIGHT BREAST 08/25/2016 HARSH WALTON MD Ot N64. 4 MASTODYNIA 08/25/2016 NAYA URIAS MD Ot E78. 2 MIXED HYPERLIPIDEMIA 08/25/2016 NAYA URIAS MD Ot I10 ESSENTIAL (PRIMARY) HYPERTENSION 08/25/2016 NAYA URIAS MD Ot I25. 10 ATHSCL HEART DISEASE OF [place] CORONARY 08/25/2016 NAYA URIAS MD Ot R07. 89 OTHER CHEST PAIN 08/25/2016 NAYA URIAS MD, Ot Z82. 3 FAMILY HISTORY OF STROKE 08/26/2016 BHAVANI GALLAGHER MD Ot E04. 2 NONTOXIC MULTINODULAR GOITER 08/26/2016 BHAVANI GALLAGHER MD Ot E11. 9 TYPE 2 DIABETES MELLITUS WITHOUT COMPLIC 08/26/2016 BHAVANI GALLAGHER MD, Ot I10 ESSENTIAL (PRIMARY) HYPERTENSION 08/26/2016 BHAVANI GALLAGHER MD, Ot M89. 9 DISORDER OF BONE, UNSPECIFIED 08/26/2016 BHAVANI GALLAGHER MD, Ot Z08 ENCNTR FOR FOLLOW-UP EXAM AFTER TRTMT FO 08/26/2016 BHAVANI GALLAGHER MD, Ot Z79. 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 2 MIXED HYPERLIPIDEMIA 09/02/2016 NAYA URIAS MD, Ot I10 ESSENTIAL (PRIMARY) HYPERTENSION 09/02/2016 NAYA URIAS MD Ot I25. 10 ATHSCL HEART DISEASE OF [place] CORONARY 09/02/2016 NAYA URIAS MD Ot R07. 89 OTHER CHEST PAIN 09/02/2016 NAYA URIAS MD, Ot Z82. 3 FAMILY HISTORY OF STROKE 09/20/2016 ISABELLE KRISHNAMURTHY, HARSH Mckinley Ot N60. 01 SOLITARY CYST OF RIGHT BREAST 09/20/2016 HARSH WALTON MD Ot N64. 4 MASTODYNIA 09/22/2016 HARSH WALTON MD Ot N60. 01 SOLITARY CYST OF RIGHT BREAST 09/22/2016 ISABELLE KRISHNAMURTHY, HARSH Mckinley Ot N64. 4 MASTODYNIA 09/30/2016 NAYA URIAS MD Ot E78. 2 MIXED HYPERLIPIDEMIA 09/30/2016 NAYA URIAS MD Ot I10 ESSENTIAL (PRIMARY) HYPERTENSION 09/30/2016 NAYA URIAS MD Ot I25. 10 ATHSCL HEART DISEASE OF [place] CORONARY 09/30/2016 NAYA URIAS MD Ot R07. 89 OTHER CHEST PAIN 09/30/2016 BRIDGETT KRISHNAMURTHY, NAYA Ross Ot Z82. 3 FAMILY HISTORY OF STROKE 10/11/2016 NAYA URIAS MD Ot E78. 2 MIXED HYPERLIPIDEMIA 10/11/2016 NAYA URIAS MD Ot I10 ESSENTIAL (PRIMARY) HYPERTENSION 10/11/2016 NAYA URIAS MD Ot I25. 10 ATHSCL HEART DISEASE OF [place] CORONARY 10/11/2016 NAYA URIAS MD Ot R07. 89 OTHER CHEST PAIN 10/11/2016 NAYA URIAS MD Ot Z82. 3 FAMILY HISTORY OF STROKE 10/14/2016 ALE KRISHNAMURTHY, JANAY Robert Ot N20.0 CALCULUS OF KIDNEY 11/28/2016 JANAY AGUILERA MD A Ot N20.0 CALCULUS OF KIDNEY 12/02/2016 JANAY AGUILERA MD A Ot N20.0 CALCULUS OF KIDNEY 12/06/2016 HARSH ATKINSON MD Ot E11. 9 TYPE 2 DIABETES MELLITUS WITHOUT COMPLIC 12/06/2016 HARSH ATKINSON MD Ot I10 ESSENTIAL (PRIMARY) HYPERTENSION 12/06/2016 HARSH ATKINSON MD Ot M47.812 SPONDYLOSIS W/O MYELOPATHY OR RADICULOPA 12/06/2016 HARSH ATKINSON MD Ot R25. 2 CRAMP AND SPASM 12/06/2016 HARSH ATKINSON MD Ot Z79. 4 ASSISTANT CASE MANAGER (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 01/10/2017 JANAY AGUILERA MD A Ot N20.0 CALCULUS OF KIDNEY 01/11/2017 JANAY AGUILERA MD A Ot N20.0 CALCULUS OF KIDNEY 08/03/2017 BHAVANI GALLAGHER MD Ot E04. 2 NONTOXIC MULTINODULAR GOITER 08/03/2017 BHAVANI GALLAGHER MD Ot E11. 9 TYPE 2 DIABETES MELLITUS WITHOUT COMPLIC 08/03/2017 BHAVANI GALLAGHER MD Ot I10 ESSENTIAL (PRIMARY) HYPERTENSION 08/03/2017 BHAVANI GALLAGHER MD, Ot M89. 9 DISORDER OF BONE, UNSPECIFIED 08/03/2017 BHAVANI GALLAGHER MD, Ot R19. 4 CHANGE IN BOWEL HABIT 08/03/2017 BHAVANI GALLAGHER MD, Ot Z08 ENCNTR FOR FOLLOW-UP EXAM AFTER TRTMT FO 08/03/2017 BHAVANI GALLAGHER MD, Ot Z79. 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 2 NONTOXIC MULTINODULAR GOITER 08/07/2017 BHAVANI GALLAGHER MD, Ot E11. 9 TYPE 2 DIABETES MELLITUS WITHOUT COMPLIC 08/07/2017 BHAVANI GALLAGHER MD, Ot I10 ESSENTIAL (PRIMARY) HYPERTENSION 08/07/2017 BHAVANI GALLAGHER MD, Ot M89. 9 DISORDER OF BONE, UNSPECIFIED 08/07/2017 BHAVANI GALLAGHER MD, Ot R19. 4 CHANGE IN BOWEL HABIT 08/07/2017 BHAVANI GALLAGHER MD, Ot Z08 ENCNTR FOR FOLLOW-UP EXAM AFTER TRTMT FO 08/07/2017 BHAVANI GALLAGHER MD, Ot Z79. 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 31 ENCNTR SCREEN MAMMOGRAM FOR MALIGNANT NE 08/22/2017 HARSH WALTON MD Ot Z12. 31 ENCNTR SCREEN MAMMOGRAM FOR MALIGNANT NE 08/25/2017 BHAVANI GALLAGHER MD, Ot E04. 2 NONTOXIC MULTINODULAR GOITER 08/25/2017 XUN MD, LOVELACE-CHELSEA Ot E11. 9 TYPE 2 DIABETES MELLITUS WITHOUT COMPLIC 08/25/2017 BHAVANI GALLAGHER MD Ot I10 ESSENTIAL (PRIMARY) HYPERTENSION 08/25/2017 BHAVANI GALLAGHER MD, Ot M89. 9 DISORDER OF BONE, UNSPECIFIED 08/25/2017 BHAVANI GALLAGHER MD, Ot R19. 4 CHANGE IN BOWEL HABIT 08/25/2017 BHAVANI GALLAGHER MD, Ot Z08 ENCNTR FOR FOLLOW-UP EXAM AFTER TRTMT FO 08/25/2017 BHAVANI GALLAGHER MD, Ot Z79. 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 2 NONTOXIC MULTINODULAR GOITER 08/31/2017 BHAVANI GALLAGHER MD, Ot E11. 9 TYPE 2 DIABETES MELLITUS WITHOUT COMPLIC 08/31/2017 BHAVANI GALLAGHER MD Ot I10 ESSENTIAL (PRIMARY) HYPERTENSION 08/31/2017 BHAVANI GALLAGHER MD, Ot M89. 9 DISORDER OF BONE, UNSPECIFIED 08/31/2017 BHAVANI GALLAGHER MD, Ot R19. 4 CHANGE IN BOWEL HABIT 08/31/2017 BHAVANI GALLAGHER MD, Ot Z08 ENCNTR FOR FOLLOW-UP EXAM AFTER TRTMT FO 08/31/2017 BHAVANI GALLAGHER MD, Ot Z79. 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 31 ENCNTR SCREEN MAMMOGRAM FOR MALIGNANT NE 11/01/2017 ALE KRISHNAMURTHY, JANAY Robert Ot N20.0 CALCULUS OF KIDNEY 11/21/2017 JANAY AGUILERA MD Ot N20.0 CALCULUS OF KIDNEY 11/29/2017 JANAY AGUILERA MD Ot N20.0 CALCULUS OF KIDNEY 01/25/2018 BHAVANI GALLAGHER MD, Ot C21. 0 MALIGNANT NEOPLASM OF ANUS, UNSPECIFIED 01/25/2018 BHAVANI GALLAGHER MD Ot E04. 2 NONTOXIC MULTINODULAR GOITER 01/25/2018 BHAVANI GALLAGHER MD Ot E11. 9 TYPE 2 DIABETES MELLITUS WITHOUT COMPLIC 01/25/2018 BHAVANI GALLAGHER MD Ot I10 ESSENTIAL (PRIMARY) HYPERTENSION 01/25/2018 BHAVANI GALLAGHER MD, Ot M89. 9 DISORDER OF BONE, UNSPECIFIED 01/25/2018 BHAVANI GALLAGHER MD, Ot R19. 4 CHANGE IN BOWEL HABIT 01/25/2018 BHAVANI GALLAGHER MD, Ot Z08 ENCNTR FOR FOLLOW-UP EXAM AFTER TRTMT FO 01/25/2018 BHAVANI GALLAGHER MD Ot Z79. 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 9 MALIGNANT EDER COLON NOS 01/25/2018 ISABELLE KRISHNAMURTHY, HARSH Mckinley Ot V76. 12 OTH SCREEN MAMMO-MALIGN NEOPLASM OF ALMA 01/25/2018 JANAY AGUILERA MD Ot 592.0 CALCULUS OF KIDNEY 01/25/2018 JANAY AGUILERA MD Ot 592.0 CALCULUS OF KIDNEY 01/25/2018 JANAY AGUILERA MD Ot V72.8 3 EXAM PRE-OPERATIVE NEC 01/25/2018 JANAY AGUILERA MD Ot V74.8 SCREEN-BACTERIAL DIS NEC 01/25/2018 ISABELLE KRISHNAMURTHY, HARSH Mckinley Ot 793. 80 UNSPEC ABNORMAL MAMMOGRAM 01/25/2018 JANAY AGUILERA MD Ot 592.0 CALCULUS OF KIDNEY 01/25/2018 BHAVANI GALLGAHER MD Ot 250. 00 DIAB RAÚL WO COMPL, TYPE II OR UNSPEC TY 01/25/2018 BHAVANI GALLAGHER MD Ot 401. 9 HYPERTENSION NOS 01/25/2018 AILEEN KRISHNAMURTHY, BHAVANI Ot 733. 90 BONE CARTILAGE DIS NOS 01/25/2018 BHAVANI GALLAGHER MD Ot V10. 05 HX OF COLONIC MALIGNANCY 01/25/2018 BHAVANI GALLAGHER MD Ot V10. 06 HX-RECTAL ANAL MALIGN 01/25/2018 BHAVANI GALLAGHER MD Ot V13. 01 PERSONAL HISTORY OF URINARY CALCULI 01/25/2018 BHAVANI GALLAGHER MD Ot V58. 67 LONG-TERM (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 01/25/2018 BHAVANI GALLAGHER MD Ot V58. 69 OTH MED,LT,CURRENT USE 01/25/2018 BHAVANI GALLAGHER MD Ot V67. 2 CHEMOTHERAPY FOLLOW-UP 01/25/2018 JANAY AGUILERA MD Ot 592.9 URINARY CALCULUS NOS 01/25/2018 BHAVANI GALLAGHER MD Ot 250. 00 DIAB RAÚL WO COMPL, TYPE II OR UNSPEC TY 01/25/2018 BHAVANI GALLAGHER MD Ot 401. 9 HYPERTENSION NOS 01/25/2018 BHAVANI GALLAGHER MD Ot 733. 90 BONE CARTILAGE DIS NOS 01/25/2018 BHAVANI GALLAGHER MD Ot V10. 05 HX OF COLONIC MALIGNANCY 01/25/2018 BHAVANI GALLAGHER MD Ot V10. 06 HX-RECTAL ANAL MALIGN 01/25/2018 BHAVANI GALLAGHER MD Ot V13. 01 PERSONAL HISTORY OF URINARY CALCULI 01/25/2018 BHAVANI GALLAGHER MD Ot V58. 67 LONG-TERM (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 01/25/2018 BHAVANI GALLAGHER MD Ot V58. 69 OTH MED,LT,CURRENT USE 01/25/2018 BHAVANI GALLAGHER MD Ot V67. 2 CHEMOTHERAPY FOLLOW-UP 01/25/2018 HERB GOLD MD Ot 709.9 SKIN DISORDER NOS 01/25/2018 HERB GOLD MD Ot V72.84 EXAM PRE-OPERATIVE NOS 01/25/2018 HERB GOLD MD Ot V74.8 SCREEN-BACTERIAL DIS NEC 01/25/2018 JANAY AGUILERA MD Ot 592.9 URINARY CALCULUS NOS 01/25/2018 BHAVANI GALLAGHER MD, Ot Z08 ENCNTR FOR FOLLOW-UP EXAM AFTER TRTMT FO 01/25/2018 BHAVANI GALLAGHER MD, Ot Z85.038 PERSONAL HISTORY OF MALIGNANT NEOPLASM O 01/25/2018 Ot Z12.31 ENC NTR SCREEN MAMMOGRAM FOR MALIGNANT NE 01/25/2018 ALE KRISHNAMURTHY, JANAY Robert Ot N20.0 CALCULUS OF KIDNEY 01/25/2018 BHAVANI GALLAGHER MD, Ot C19 MALIGNANT NEOPLASM OF RECTOSIGMOID JUNCT 01/25/2018 ISABELLE KRISHNAMURTHY, HARSH Mckinley Ot R04. 2 HEMOPTYSIS 01/25/2018 BHAVANI GALLAGHER MD, Ot E04. 2 NONTOXIC MULTINODULAR GOITER 01/25/2018 BHAVANI GALLAGHER MD, Ot E11. 9 TYPE 2 DIABETES MELLITUS WITHOUT COMPLIC 01/25/2018 BHAVANI GALLAGHER MD, Ot I10 ESSENTIAL (PRIMARY) HYPERTENSION 01/25/2018 BHAVANI GALLAGHER MD, Ot M89. 9 DISORDER OF BONE, UNSPECIFIED 01/25/2018 BHAVANI GALLAGHER MD, Ot Z08 ENCNTR FOR FOLLOW-UP EXAM AFTER TRTMT FO 01/25/2018 BHAVANI GALLAGHER MD Ot Z79. 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 2 NONTOXIC MULTINODULAR GOITER 01/25/2018 BHAVANI GALLAGHER MD, Ot E04. 2 NONTOXIC MULTINODULAR GOITER 01/25/2018 BHAVANI GALLAGHER MD, Ot E11. 9 TYPE 2 DIABETES MELLITUS WITHOUT COMPLIC 01/25/2018 BHAVANI GALLAGHER MD, Ot I10 ESSENTIAL (PRIMARY) HYPERTENSION 01/25/2018 BHAVANI GALLAGHER MD, Ot M89. 9 DISORDER OF BONE, UNSPECIFIED 01/25/2018 BHAVANI GALLAGHER MD, Ot Z08 ENCNTR FOR FOLLOW-UP EXAM AFTER TRTMT FO 01/25/2018 BHAVANI GALLAGHER MD, Ot Z79. 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 2 MIXED HYPERLIPIDEMIA 01/25/2018 NAYA URIAS MD Ot I10 ESSENTIAL (PRIMARY) HYPERTENSION 01/25/2018 NAYA URIAS MD Ot I25. 10 ATHSCL HEART DISEASE OF [place] CORONARY 01/25/2018 NAYA URIAS MD Ot R07. 89 OTHER CHEST PAIN 01/25/2018 NAYA URIAS MD Ot Z82. 3 FAMILY HISTORY OF STROKE 01/25/2018 NAYA URIAS MD Ot E78. 2 MIXED HYPERLIPIDEMIA 01/25/2018 NAYA URIAS MD Ot I10 ESSENTIAL (PRIMARY) HYPERTENSION 01/25/2018 NAYA URIAS MD Ot I25. 10 ATHSCL HEART DISEASE OF [place] CORONARY 01/25/2018 NAYA URIAS MD Ot R07. 89 OTHER CHEST PAIN 01/25/2018 NAYA URIAS MD Ot Z82. 3 FAMILY HISTORY OF STROKE 01/25/2018 BHAVANI GALLAGHER MD Ot E04. 2 NONTOXIC MULTINODULAR GOITER 01/25/2018 BHAVANI GALLAGHER MD Ot E11. 9 TYPE 2 DIABETES MELLITUS WITHOUT COMPLIC 01/25/2018 BHAVANI GALLAGHER MD, Ot I10 ESSENTIAL (PRIMARY) HYPERTENSION 01/25/2018 BHAVANI GALLAGHER MD Ot M89. 9 DISORDER OF BONE, UNSPECIFIED 01/25/2018 BHAVANI GALLAGHER MD, Ot Z08 ENCNTR FOR FOLLOW-UP EXAM AFTER TRTMT FO 01/25/2018 BHAVANI GALLAGHER MD, Ot Z79. 4 ASSISTANT CASE MANAGER (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 01/25/2018 BHAVANI GALLAGHER MD, Ot Z79.899 OTHER PENITENTIARY (CURRENT) DRUG THERAPY 01/25/2018 BHAVANI GALLAGHER MD, Ot Z85.038 PERSONAL HISTORY OF MALIGNANT NEOPLASM O 01/25/2018 BHAVANI GALLAGHER MD, Ot Z85.048 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, RECT 01/25/2018 ISABELLE KRISHNAMURTHY, HARSH Mckinley Ot N60. 01 SOLITARY CYST OF RIGHT BREAST 01/25/2018 HARSH WALTON MD Ot N64. 4 MASTODYNIA 01/25/2018 JANAY AGUILERA MD A Ot N20.0 CALCULUS OF KIDNEY 01/25/2018 BHAVANI GALLAGHER MD, Ot C21. 0 MALIGNANT NEOPLASM OF ANUS, UNSPECIFIED 01/25/2018 BHAVANI GALLAGHER MD, Ot E04. 2 NONTOXIC MULTINODULAR GOITER 01/25/2018 BHAVANI GALLAGHER MD, Ot E11. 9 TYPE 2 DIABETES MELLITUS WITHOUT COMPLIC 01/25/2018 BHAVANI GALLAGHER MD, Ot I10 ESSENTIAL (PRIMARY) HYPERTENSION 01/25/2018 BHAVANI GALLAGHER MD, Ot M89. 9 DISORDER OF BONE, UNSPECIFIED 01/25/2018 BHAVANI GALLAGHER MD, Ot R19. 4 CHANGE IN BOWEL HABIT 01/25/2018 BHAVANI GALLAGHER MD, Ot Z08 ENCNTR FOR FOLLOW-UP EXAM AFTER TRTMT FO 01/25/2018 BHAVANI GALLAGHER MD, Ot Z79. 4 ASSISTANT CASE MANAGER (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 01/25/2018 BHAVANI GALLAGHER MD, Ot Z79.899 OTHER PENITENTIARY (CURRENT) DRUG THERAPY 01/25/2018 BHAVANI GALLAGHER MD, Ot Z85.038 PERSONAL HISTORY OF MALIGNANT NEOPLASM O 01/25/2018 BHAVANI GALLAGHER MD, Ot Z85.048 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, RECT 01/25/2018 ISABELLE KRISHNAMURTHY, HARSH Mckinley Ot Z12. 31 ENCNTR SCREEN MAMMOGRAM FOR MALIGNANT NE 01/25/2018 ALE KRISHNAMURTHY, JANAY A Ot N20.0 CALCULUS OF KIDNEY 01/29/2018 ALE KRISHNAMURTHY, JANAY A Ot N20.0 CALCULUS OF KIDNEY 01/30/2018 ALE KRISHNAMURTHY, JANAY A Ot N20.0 CALCULUS OF KIDNEY 02/04/2018 BHAVANI GALLAGHER MD Ot E04. 2 NONTOXIC MULTINODULAR GOITER 02/04/2018 BHAVANI GALLAGHER MD, Ot E11. 9 TYPE 2 DIABETES MELLITUS WITHOUT COMPLIC 02/04/2018 BHAVANI GALLAGHER MD Ot I10 ESSENTIAL (PRIMARY) HYPERTENSION 02/04/2018 BHAVANI GALLAGHER MD, Ot M89. 9 DISORDER OF BONE, UNSPECIFIED 02/04/2018 BHAVANI GALLAGHER MD, Ot R19. 4 CHANGE IN BOWEL HABIT 02/04/2018 BHAVANI GALLAGHER MD, Ot Z08 ENCNTR FOR FOLLOW-UP EXAM AFTER TRTMT FO 02/04/2018 BHAVANI GALLAGHER MD, Ot Z79. 4 PENITENTIARY (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 02/04/2018 BHAVANI GALLAGHER MD, Ot Z79.899 OTHER PENITENTIARY (CURRENT) DRUG THERAPY 02/04/2018 BHAVANI GALLAGHER MD, Ot Z85.038 PERSONAL HISTORY OF MALIGNANT NEOPLASM O 02/04/2018 BHAVANI GALLAGHER MD, Ot Z85.048 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, RECT 04/02/2018 BHAVANI GALLAGHER MD, Ot E04. 2 NONTOXIC MULTINODULAR GOITER 04/02/2018 BHAVANI GALLAGHER MD, Ot E11. 9 TYPE 2 DIABETES MELLITUS WITHOUT COMPLIC 04/02/2018 BHAVANI GALLAGHER MD, Ot I10 ESSENTIAL (PRIMARY) HYPERTENSION 04/02/2018 BHAVANI GALLAGHER MD, Ot M89. 9 DISORDER OF BONE, UNSPECIFIED 04/02/2018 BHAVANI GALLAGHER MD, Ot R19. 4 CHANGE IN BOWEL HABIT 04/02/2018 BHAVANI GALLAGHER MD, Ot Z08 ENCNTR FOR FOLLOW-UP EXAM AFTER TRTMT FO 04/02/2018 BHAVANI GALLAGHER MD, Ot Z79. 4 PENITENTIARY (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 04/02/2018 BHAVANI GALLAGHER MD, Ot Z79.899 OTHER PENITENTIARY (CURRENT) DRUG THERAPY 04/02/2018 BHAVANI GALLAGHER MD, Ot Z85.038 PERSONAL HISTORY OF MALIGNANT NEOPLASM O 04/02/2018 BHAVANI GALLAGHER MD, Ot Z85.048 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, RECT 04/02/2018 BHAVANI GALLAGHER MD, Ot C21. 0 MALIGNANT NEOPLASM OF ANUS, UNSPECIFIED 04/02/2018 BHAVANI GALLAGHER MD, Ot E04. 2 NONTOXIC MULTINODULAR GOITER 04/02/2018 XUN MD, LOVELACE-CHELSEA Ot E11. 9 TYPE 2 DIABETES MELLITUS WITHOUT COMPLIC 04/02/2018 BHAVANI GALLAGHER MD Ot I10 ESSENTIAL (PRIMARY) HYPERTENSION 04/02/2018 BHAVANI GALLAGHER MD, Ot M89. 9 DISORDER OF BONE, UNSPECIFIED 04/02/2018 BHAVANI GALLAGHER MD Ot R19. 4 CHANGE IN BOWEL HABIT 04/02/2018 BHAVANI GALLAGHER MD, Ot Z08 ENCNTR FOR FOLLOW-UP EXAM AFTER TRTMT FO 04/02/2018 BHAVANI GALLAGHER MD, Ot Z79. 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 2 NONTOXIC MULTINODULAR GOITER 04/04/2018 BHAVANI GALLAGHER MD, Ot E11. 9 TYPE 2 DIABETES MELLITUS WITHOUT COMPLIC 04/04/2018 BHAVANI GALLAGHER MD Ot I10 ESSENTIAL (PRIMARY) HYPERTENSION 04/04/2018 BHAVANI GALLAGHER MD, Ot M89. 9 DISORDER OF BONE, UNSPECIFIED 04/04/2018 BHAVANI GALLAGHER MD, Ot R19. 4 CHANGE IN BOWEL HABIT 04/04/2018 BHAVANI GALLAGHER MD, Ot Z08 ENCNTR FOR FOLLOW-UP EXAM AFTER TRTMT FO 04/04/2018 BHAVANI GALLAGHER MD, Ot Z79. 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 9 TYPE 2 DIABETES MELLITUS WITHOUT COMPLIC 04/13/2018 NAYA URIAS MD Ot E78. 5 HYPERLIPIDEMIA, UNSPECIFIED 04/13/2018 NAYA URIAS MD Ot I25. 10 ATHSCL HEART DISEASE OF [place] CORONARY 04/13/2018 NAYA URIAS MD Ot R00. 2 PALPITATIONS 04/13/2018 NAYA URIAS MD Ot R07. 89 OTHER CHEST PAIN 04/17/2018 NAYA URIAS MD Ot E11. 9 TYPE 2 DIABETES MELLITUS WITHOUT COMPLIC 04/17/2018 NAYA URIAS MD Ot E78. 5 HYPERLIPIDEMIA, UNSPECIFIED 04/17/2018 NAYA URIAS MD Ot I25. 10 ATHSCL HEART DISEASE OF [place] CORONARY 04/17/2018 NAYA URIAS MD Ot R00. 2 PALPITATIONS 04/17/2018 NAYA URIAS MD Ot R07. 89 OTHER CHEST PAIN 04/18/2018 ALE KRISHNAMURTHY, JANAY Robert Ot N20.0 CALCULUS OF KIDNEY 04/18/2018 JANAY AGUILERA MD Ot N20.0 CALCULUS OF KIDNEY 04/18/2018 BHVAANI GALLAGHER MD, Ot E04. 2 NONTOXIC MULTINODULAR GOITER 04/18/2018 BHAVANI GALLAGHER MD, Ot E11. 9 TYPE 2 DIABETES MELLITUS WITHOUT COMPLIC 04/18/2018 BHAVANI GALLAGHER MD Ot I10 ESSENTIAL (PRIMARY) HYPERTENSION 04/18/2018 BHAVANI GALLAGHER MD, Ot M89. 9 DISORDER OF BONE, UNSPECIFIED 04/18/2018 BHAVANI GALLAGHER MD, Ot R19. 4 CHANGE IN BOWEL HABIT 04/18/2018 BHAVANI GALLAGHER MD, Ot Z08 ENCNTR FOR FOLLOW-UP EXAM AFTER TRTMT FO 04/18/2018 BHAVANI GALLAGHER MD, Ot Z79. 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 9 TYPE 2 DIABETES MELLITUS WITHOUT COMPLIC 04/18/2018 NAYA URIAS MD Ot E78. 5 HYPERLIPIDEMIA, UNSPECIFIED 04/18/2018 NAYA URIAS MD Ot I10 ESSENTIAL (PRIMARY) HYPERTENSION 04/18/2018 NAYA URIAS MD Ot I25. 10 ATHSCL HEART DISEASE OF [place] CORONARY 04/18/2018 NAYA URIAS MD Ot I65. 23 OCCLUSION AND STENOSIS OF BILATERAL ST[place] 04/18/2018 NAYA URIAS MD Ot R55 SYNCOPE AND COLLAPSE 04/18/2018 NAYA URIAS MD Ot Z79. 4 ASSISTANT CASE MANAGER (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 04/18/2018 NAYA URIAS MD Ot Z79. 82 ASSISTANT CASE MANAGER (CURRENT) USE OF ASPIRIN 04/18/2018 NAYA URIAS MD Ot Z79.899 OTHER ASSISTANT CASE MANAGER (CURRENT) DRUG THERAPY 04/18/2018 NAYA URIAS MD Ot Z82. 49 FAMILY HX OF ISCHEM HEART DIS AND OTH DI 04/18/2018 NAYA URIAS MD Ot Z85.038 PERSONAL HISTORY OF MALIGNANT NEOPLASM O 04/23/2018 NAYA URIAS MD Ot E11. 9 TYPE 2 DIABETES MELLITUS WITHOUT COMPLIC 04/23/2018 NAYA URIAS MD Ot E78. 5 HYPERLIPIDEMIA, UNSPECIFIED 04/23/2018 NAYA URIAS MD Ot I10 ESSENTIAL (PRIMARY) HYPERTENSION 04/23/2018 NAYA URIAS MD Ot I25. 10 ATHSCL HEART DISEASE OF [place] CORONARY 04/23/2018 NAYA URIAS MD Ot I65. 23 OCCLUSION AND STENOSIS OF [place]ILATERAL [place] 04/23/2018 NAYA URIAS MD Ot R55 SYNCOPE AND COLLAPSE 04/23/2018 NAYA URIAS MD Ot Z79. 4 ASSISTANT CASE MANAGER (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 04/23/2018 NAYA URIAS MD Ot Z79. 82 PENITENTIARY (CURRENT) USE OF ASPIRIN 04/23/2018 NAYA URIAS MD Ot Z79.899 OTHER ASSISTANT CASE MANAGER (CURRENT) DRUG THERAPY 04/23/2018 NAYA URIAS MD Ot Z82. 49 FAMILY HX OF ISCHEM HEART DIS AND OTH DI 04/23/2018 NAYA URIAS MD Ot Z85.038 PERSONAL HISTORY OF MALIGNANT NEOPLASM O 04/29/2018 SIRI PERSON MD Ot E78.00 PURE HYPERCHOLESTEROLEMIA, UNSPECIFIED 04/29/2018 SIRI PERSON MD Ot G43.909 MIGRAINE, UNSP, NOT INTRACTABLE, WITHOUT 04/29/2018 SIRI PERSON MD Ot I10 ESSENTIAL (PRIMARY) HYPERTENSION 04/29/2018 SIRI PERSON MD Ot M10.9 GOUT, UNSPECIFIED 04/29/2018 SIRI PERSON MD Ot R07.9 CHEST PAIN, UNSPECIFIED 04/29/2018 SIRI PERSON MD Ot R11.2 NAUSEA WITH VOMITING, UNSPECIFIED 04/29/2018 SIRI PERSON MD Ot Z79.4 PENITENTIARY (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 04/29/2018 SIRI PERSON MD Ot Z79.82 ASSISTANT CASE MANAGER (CURRENT) USE OF ASPIRIN 04/29/2018 SIRI PERSON MD, Ot Z80.49 FAMILY HISTORY OF MALIGNANT NEOPLASM OF 04/29/2018 SIRI PERSON MD Ot Z82.49 FAMILY HX OF ISCHEM HEART DIS AND OTH DI 04/29/2018 SIRI PERSON MD Ot Z85.038 PERSONAL HISTORY OF MALIGNANT NEOPLASM O 04/29/2018 SIRI PERSON MD Ot Z86.018 PERSONAL HISTORY OF OTHER BENIGN NEOPLAS 04/29/2018 SIRI PERSON MD Ot Z87.19 PERSONAL HISTORY OF OTHER DISEASES OF TH 04/29/2018 SIRI PERSON MD Ot Z87.442 PERSONAL HISTORY OF URINARY CALCULI 04/29/2018 SIRI PERSON MD Ot Z88.0 ALLERGY STATUS TO PENICILLIN 04/29/2018 SIRI PERSON MD Ot Z90.710 ACQUIRED ABSENCE OF BOTH CERVIX AND UTER 04/29/2018 SIRI PERSON MD Ot Z91.040 LATEX ALLERGY STATUS 04/29/2018 SIRI PERSON MD Ot Z93.3 COLOSTOMY STATUS 04/29/2018 SIRI PERSON MD Ot Z95.9 PRESENCE OF CARDIAC AND VASCULAR IMPLANT 04/29/2018 SIRI PERSON MD Ot Z98.890 OTHER SPECIFIED POSTPROCEDURAL STATES 05/03/2018 SIRI PERSON MD Ot E78.00 PURE HYPERCHOLESTEROLEMIA, UNSPECIFIED 05/03/2018 SIRI PERSON MD Ot G43.909 MIGRAINE, UNSP, NOT INTRACTABLE, WITHOUT 05/03/2018 SIRI PERSON MD Ot I10 ESSENTIAL (PRIMARY) HYPERTENSION 05/03/2018 SIRI PERSON MD Ot M10.9 GOUT, UNSPECIFIED 05/03/2018 SIRI PERSON MD Ot R07.9 CHEST PAIN, UNSPECIFIED 05/03/2018 SIRI PERSON MD Ot R11.2 NAUSEA WITH VOMITING, UNSPECIFIED 05/03/2018 SIRI PERSON MD Ot Z79.4 PENITENTIARY (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 05/03/2018 SIRI PERSON MD, Ot Z79.82 PENITENTIARY (CURRENT) USE OF ASPIRIN 05/03/2018 SIRI PERSON MD, Ot Z80.49 FAMILY HISTORY OF MALIGNANT NEOPLASM OF 05/03/2018 SIRI PERSON MD, Ot Z82.49 FAMILY HX OF ISCHEM HEART DIS AND OTH DI 05/03/2018 SIRI PERSON MD, Ot Z85.038 PERSONAL HISTORY OF MALIGNANT NEOPLASM O 05/03/2018 SIRI PERSON MD Ot Z86.018 PERSONAL HISTORY OF OTHER BENIGN NEOPLAS 05/03/2018 SIRI PERSON MD Ot Z87.19 PERSONAL HISTORY OF OTHER DISEASES OF TH 05/03/2018 SIRI PERSON MD, Ot Z87.442 PERSONAL HISTORY OF URINARY CALCULI 05/03/2018 SIRI PERSON MD Ot Z88.0 ALLERGY STATUS TO PENICILLIN 05/03/2018 SIRI PERSON MD Ot Z90.710 ACQUIRED ABSENCE OF BOTH CERVIX AND UTER 05/03/2018 SIRI PERSON MD Ot Z91.040 LATEX ALLERGY STATUS 05/03/2018 SIRI PERSON MD Ot Z93.3 COLOSTOMY STATUS 05/03/2018 SIRI PERSON MD Ot Z95.9 PRESENCE OF CARDIAC AND VASCULAR IMPLANT 05/03/2018 SIRI PERSON MD Ot Z98.890 OTHER SPECIFIED POSTPROCEDURAL STATES 05/04/2018 NAYA URIAS MD Ot E11. 9 TYPE 2 DIABETES MELLITUS WITHOUT COMPLIC 05/04/2018 NAYA URIAS MD Ot E78. 5 HYPERLIPIDEMIA, UNSPECIFIED 05/04/2018 NAYA URIAS MD Ot I25. 10 ATHSCL HEART DISEASE OF [place] CORONARY 05/04/2018 NAYA URIAS MD J Ot R00. 2 PALPITATIONS 05/04/2018 NAYA URIAS MD J Ot R07. 89 OTHER CHEST PAIN 05/05/2018 NAYA URIAS MD J Ot E11. 9 TYPE 2 DIABETES MELLITUS WITHOUT COMPLIC 05/05/2018 NAYA URIAS MD J Ot E78. 5 HYPERLIPIDEMIA, UNSPECIFIED 05/05/2018 NAYA URIAS MD J Ot I25. 10 ATHSCL HEART DISEASE OF [place] CORONARY 05/05/2018 NAYA URIAS MD J Ot R00. 2 PALPITATIONS 05/05/2018 NAYA URIAS MD J Ot R07. 89 OTHER CHEST PAIN 05/11/2018 NAYA URIAS MD J Ot E11. 9 TYPE 2 DIABETES MELLITUS WITHOUT COMPLIC 05/11/2018 NAYA URIAS MD J Ot E78. 5 HYPERLIPIDEMIA, UNSPECIFIED 05/11/2018 NAYA URIAS MD J Ot I25. 10 ATHSCL HEART DISEASE OF [place] CORONARY 05/11/2018 NAYA URIAS MD Ot R00. 2 PALPITATIONS 05/11/2018 NAYA URIAS MD Ot R07. 89 OTHER CHEST PAIN 05/11/2018 NAYA URIAS MD J Ot E11. 9 TYPE 2 DIABETES MELLITUS WITHOUT COMPLIC 05/11/2018 NAYA URIAS MD Ot E78. 5 HYPERLIPIDEMIA, UNSPECIFIED 05/11/2018 NAYA URIAS MD Ot I25. 10 ATHSCL HEART DISEASE OF [place] CORONARY 05/11/2018 NAYA URIAS MD Ot R00. 2 PALPITATIONS 05/11/2018 NAYA URIAS MD J Ot R07. 89 OTHER CHEST PAIN 06/25/2018 NAYA URIAS MD J Ot E11. 9 TYPE 2 DIABETES MELLITUS WITHOUT COMPLIC 06/25/2018 NAYA URIAS MD Ot E78. 5 HYPERLIPIDEMIA, UNSPECIFIED 06/25/2018 NAYA URIAS MD J Ot I25. 10 ATHSCL HEART DISEASE OF [place] CORONARY 06/25/2018 NAYA URIAS MD J Ot R00. 2 PALPITATIONS 06/25/2018 NAYA URIAS MD J Ot R07. 89 OTHER CHEST PAIN 06/26/2018 NAYA URIAS MD J Ot E11. 9 TYPE 2 DIABETES MELLITUS WITHOUT COMPLIC 06/26/2018 NAYA URIAS MD Ot E78. 5 HYPERLIPIDEMIA, UNSPECIFIED 06/26/2018 NAYA URIAS MD Ot I25. 10 ATHSCL HEART DISEASE OF [place] CORONARY 06/26/2018 NAYA URIAS MD Ot R00. 2 PALPITATIONS 06/26/2018 NAYA URIAS MD Ot R07. 89 OTHER CHEST PAIN 09/13/2018 ISABELLE KRISHNAMURTHY, HARSH Mckinely Ot Z12. 31 ENCNTR SCREEN MAMMOGRAM FOR MALIGNANT NE 11/02/2018 ALE KRISHNAMURTHY, JANAY Robert Ot N20.0 CALCULUS OF KIDNEY 11/29/2018 ALE KRISHNAMURTHY, JANAY A Ot N20.0 CALCULUS OF KIDNEY 01/29/2019 ALE KRISHNAMURTHY, JANAY A Ot N20.0 CALCULUS OF KIDNEY 01/30/2019 ALE KRISHNAMURTHY, JANAY Robert Ot N20.0 CALCULUS OF KIDNEY 02/21/2019 EDIS PEARSON MD, Ot E78.5 HYPERLIPIDEMIA, UNSPECIFIED 02/21/2019 EDIS PEARSON MD, Ot G47.33 OBSTRUCTIVE SLEEP APNEA (ADULT) (PEDIATR 02/21/2019 EDIS PEARSON MD Ot I10 ESSENTIAL (PRIMARY) HYPERTENSION 02/21/2019 EDIS PEARSON MD, Ot K21.0 GASTRO-ESOPHAGEAL REFLUX DISEASE WITH ES 02/21/2019 EDIS PEARSON MD, Ot K22.2 ESOPHAGEAL OBSTRUCTION 02/21/2019 EDIS PEARSON MD, Ot K29.70 GASTRITIS, UNSPECIFIED, WITHOUT BLEEDING 02/21/2019 EDIS PEARSON MD, Ot K31.89 OTHER DISEASES OF STOMACH AND DUODENUM 02/21/2019 EDIS PEARSON MD, Ot K66.0 PERITONEAL ADHESIONS (POSTPROCEDURAL) (P 02/21/2019 EDIS PEARSON MD, Ot K76.0 FATTY (CHANGE OF) LIVER, NOT ELSEWHERE C 02/21/2019 EDIS PEARSON MD, Ot Z79.4 PENITENTIARY (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 02/21/2019 EDIS PEARSON MD, Ot Z79.82 PENITENTIARY (CURRENT) USE OF ASPIRIN 02/21/2019 EDIS PEARSON MD, Ot Z79.89 9 OTHER ASSISTANT CASE MANAGER (CURRENT) DRUG THERAPY 02/21/2019 EDIS PEARSON MD, Ot Z88.1 ALLERGY STATUS TO OTHER ANTIBIOTIC AGENT 02/21/2019 EDIS PEARSON MD, Ot Z88.8 ALLERGY STATUS TO OTH DRUG/MEDS/BIOL SUB 02/21/2019 EDIS PEARSON MD, Ot Z90.71 0 ACQUIRED ABSENCE OF BOTH CERVIX AND UTER 02/21/2019 EDIS PEARSON MD, Ot Z91.04 0 LATEX ALLERGY STATUS 02/22/2019 JUAN CARLOS WEISS MD Ot E11.9 TYPE 2 DIABETES MELLITUS WITHOUT COMPLIC 02/22/2019 JUAN CARLOS WEISS MD, Ot E78.00 PURE HYPERCHOLESTEROLEMIA, UNSPECIFIED 02/22/2019 JUAN CARLOS WEISS MD, Ot G43.909 MIGRAINE, UNSP, NOT INTRACTABLE, WITHOUT 02/22/2019 JUAN CARLOS WEISS MD, Ot G89.18 OTHER ACUTE POSTPROCEDURAL PAIN 02/22/2019 JUAN CARLOS WEISS MD, Ot I10 ESSENTIAL (PRIMARY) HYPERTENSION 02/22/2019 JUAN CARLOS WEISS MD, Ot K21.9 GASTRO-ESOPHAGEAL REFLUX DISEASE WITHOUT 02/22/2019 JUAN CARLOS WEISS MD, Ot K58.9 IRRITABLE BOWEL SYNDROME WITHOUT DIARRHE 02/22/2019 JUAN CARLOS WEISS MD, Ot N39.0 URINARY TRACT INFECTION, SITE NOT SPECIF 02/22/2019 JUAN CARLOS WEISS MD, Ot R10.30 LOWER ABDOMINAL PAIN, UNSPECIFIED 02/22/2019 JUAN CARLOS WEISS MD, Ot Z79.4 ASSISTANT CASE MANAGER (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 02/22/2019 JUAN CARLOS WEISS MD, Ot Z79.82 ASSISTANT CASE MANAGER (CURRENT) USE OF ASPIRIN 02/22/2019 JUAN CARLOS WEISS MD, Ot Z80.0 FAMILY HISTORY OF MALIGNANT NEOPLASM OF 02/22/2019 JUAN CARLOS WEISS MD, Ot Z80.42 FAMILY HISTORY OF MALIGNANT NEOPLASM OF 02/22/2019 JUAN CARLOS WEISS MD, Ot Z86.012 PERSONAL HISTORY OF BENIGN CARCINOID MELIDA 02/22/2019 JUAN CARLOS WEISS MD, Ot Z87.442 PERSONAL HISTORY OF URINARY CALCULI 02/22/2019 BRUEGGEMANN MD, JUAN CARLOS T Ot Z88.1 ALLERGY STATUS TO OTHER ANTIBIOTIC AGENT 02/22/2019 JUAN CARLOS WEISS MD Ot Z90.710 ACQUIRED ABSENCE OF BOTH CERVIX AND UTER 02/22/2019 JUAN CARLOS WEISS MD Ot Z91.040 LATEX ALLERGY STATUS 02/22/2019 JUAN CARLOS WEISS MD Ot Z93.3 COLOSTOMY STATUS 02/22/2019 CARTER BERMAN Ot E11.9 TYPE 2 DIABETES MELLITUS WITHOUT COMPLIC 02/22/2019 CARTER BERMAN Ot E78.00 PURE HYPERCHOLESTEROLEMIA, UNSPECIFIED 02/22/2019 CARTER BERMNA Ot G43.909 MIGRAINE, UNSP, NOT INTRACTABLE, WITHOUT 02/22/2019 CARTER BERMAN Ot G89.18 OTHER ACUTE POSTPROCEDURAL PAIN 02/22/2019 CARTER BERMAN Ot I 10 ESSENTIAL (PRIMARY) HYPERTENSION 02/22/2019 CARTER BERMAN Ot K21.9 GASTRO-ESOPHAGEAL REFLUX DISEASE WITHOUT 02/22/2019 CARTER BERMAN Ot K58.9 IRRITABLE BOWEL SYNDROME WITHOUT DIARRHE 02/22/2019 CARTER BERMAN Ot N39.0 URINARY TRACT INFECTION, SITE NOT SPECIF 02/22/2019 CARTER BERMAN Ot R10.12 LEFT UPPER QUADRANT PAIN 02/22/2019 CARTER BERMAN Ot R10.32 LEFT LOWER QUADRANT PAIN 02/22/2019 CARTER BERMAN Ot Z79.4 ASSISTANT CASE MANAGER (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 02/22/2019 CARTER BERMAN Ot Z79.82 ASSISTANT CASE MANAGER (CURRENT) USE OF ASPIRIN 02/22/2019 CARTER BERMAN Ot Z80.0 FAMILY HISTORY OF MALIGNANT NEOPLASM OF 02/22/2019 CARTER BERMAN Ot Z80.42 FAMILY HISTORY OF MALIGNANT NEOPLASM OF 02/22/2019 CARTER BERMAN Ot Z86.018 PERSONAL HISTORY OF OTHER BENIGN NEOPLAS 02/22/2019 CARTER BERMAN Ot Z87.442 PERSONAL HISTORY OF URINARY CALCULI 02/22/2019 CARTER BERMAN Ot Z88.0 ALLERGY STATUS TO PENICILLIN 02/22/2019 CARTER BERMAN Ot Z88.1 ALLERGY STATUS TO OTHER ANTIBIOTIC AGENT 02/22/2019 CARTER BERMAN Ot Z90.710 ACQUIRED ABSENCE OF BOTH CERVIX AND UTER 02/22/2019 CARTER BERMAN Ot Z91.040 LATEX ALLERGY STATUS 02/22/2019 CARTER BERMAN Ot Z93.2 ILEOSTOMY STATUS 02/22/2019 CARTER BERMAN Ot Z93.3 COLOSTOMY STATUS 02/25/2019 EDIS PEARSON MD Ot Z01.81 8 ENCOUNTER FOR OTHER PREPROCEDURAL EXAMIN 02/26/2019 JUAN CARLOS WEISS MD Ot E11.9 TYPE 2 DIABETES MELLITUS WITHOUT COMPLIC 02/26/2019 JUAN CARLOS WEISS MD Ot E78.00 PURE HYPERCHOLESTEROLEMIA, UNSPECIFIED 02/26/2019 JUAN CARLOS WEISS MD, Ot G43.909 MIGRAINE, UNSP, NOT INTRACTABLE, WITHOUT 02/26/2019 JUAN CARLOS WEISS MD Ot G89.18 OTHER ACUTE POSTPROCEDURAL PAIN 02/26/2019 JUAN CARLOS WEISS MD Ot I10 ESSENTIAL (PRIMARY) HYPERTENSION 02/26/2019 JUAN CARLOS WEISS MD, Ot K21.9 GASTRO-ESOPHAGEAL REFLUX DISEASE WITHOUT 02/26/2019 JUAN CARLOS WEISS MD Ot K58.9 IRRITABLE BOWEL SYNDROME WITHOUT DIARRHE 02/26/2019 JUAN CARLOS WEISS MD, Ot N39.0 URINARY TRACT INFECTION, SITE NOT SPECIF 02/26/2019 JUAN CARLOS WEISS MD Ot R10.30 LOWER ABDOMINAL PAIN, UNSPECIFIED 02/26/2019 JUAN CARLOS WEISS MD, Ot Z79.4 PENITENTIARY (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 02/26/2019 JUAN CARLOS WEISS MD, Ot Z79.82 PENITENTIARY (CURRENT) USE OF ASPIRIN 02/26/2019 JUAN CARLOS WEISS MD, Ot Z80.0 FAMILY HISTORY OF MALIGNANT NEOPLASM OF 02/26/2019 JUAN CARLOS WEISS MD, Ot Z80.42 FAMILY HISTORY OF MALIGNANT NEOPLASM OF 02/26/2019 JUAN CARLOS WEISS MD, Ot Z86.012 PERSONAL HISTORY OF BENIGN CARCINOID MELIDA 02/26/2019 JUAN CARLOS WEISS MD, Ot Z87.442 PERSONAL HISTORY OF URINARY CALCULI 02/26/2019 ISELA KRISHNAMURTHY, JUAN CARLOS Mcqueen Ot Z88.1 ALLERGY STATUS TO OTHER ANTIBIOTIC AGENT 02/26/2019 ISELA KRISHNAMURTHY, JUAN CARLOS Mcqueen Ot Z90.710 ACQUIRED ABSENCE OF BOTH CERVIX AND UTER 02/26/2019 ISELA KRISHNAMURTHY, JUAN CARLOS Mcqueen Ot Z91.040 LATEX ALLERGY STATUS 02/26/2019 JUAN CARLOS WEISS MD Ot Z93.3 COLOSTOMY STATUS 02/26/2019 CARTER BERMAN Ot E11.9 TYPE 2 DIABETES MELLITUS WITHOUT COMPLIC 02/26/2019 CARTER BERMAN Ot E78.00 PURE HYPERCHOLESTEROLEMIA, UNSPECIFIED 02/26/2019 CARTER BERMAN Ot G43.909 MIGRAINE, UNSP, NOT INTRACTABLE, WITHOUT 02/26/2019 CARTER BERMAN Ot G89.18 OTHER ACUTE POSTPROCEDURAL PAIN 02/26/2019 CARTER BERMAN Ot I 10 ESSENTIAL (PRIMARY) HYPERTENSION 02/26/2019 CARTER BERMAN Ot K21.9 GASTRO-ESOPHAGEAL REFLUX DISEASE WITHOUT 02/26/2019 CARTER BERMAN Ot K58.9 IRRITABLE BOWEL SYNDROME WITHOUT DIARRHE 02/26/2019 CARTER BERMAN Ot N39.0 URINARY TRACT INFECTION, SITE NOT SPECIF 02/26/2019 CARTER BERMAN Ot R10.12 LEFT UPPER QUADRANT PAIN 02/26/2019 CARTER BERMAN Ot R10.32 LEFT LOWER QUADRANT PAIN 02/26/2019 CARTER BERMAN Ot Z79.4 PENITENTIARY (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 02/26/2019 CARTER BERMAN Ot Z79.82 ASSISTANT CASE MANAGER (CURRENT) USE OF ASPIRIN 02/26/2019 CARTER BERMAN Ot Z80.0 FAMILY HISTORY OF MALIGNANT NEOPLASM OF 02/26/2019 CARTER BERMAN Ot Z80.42 FAMILY HISTORY OF MALIGNANT NEOPLASM OF 02/26/2019 CARTER BERMAN Ot Z86.018 PERSONAL HISTORY OF OTHER BENIGN NEOPLAS 02/26/2019 CARTER BERMAN Ot Z87.442 PERSONAL HISTORY OF URINARY CALCULI 02/26/2019 CARTER BERMAN Ot Z88.0 ALLERGY STATUS TO PENICILLIN 02/26/2019 CARTER BERMAN Ot Z88.1 ALLERGY STATUS TO OTHER ANTIBIOTIC AGENT 02/26/2019 CARTER BERMAN Ot Z90.710 ACQUIRED ABSENCE OF BOTH CERVIX AND UTER 02/26/2019 CARTER BERMAN Ot Z91.040 LATEX ALLERGY STATUS 02/26/2019 CARTER BERMAN Ot Z93.2 ILEOSTOMY STATUS 02/26/2019 CARTER BERMAN Ot Z93.3 COLOSTOMY STATUS 02/26/2019 EDIS PEARSON MD Ot E78.5 HYPERLIPIDEMIA, UNSPECIFIED 02/26/2019 EDIS PEARSON MD, Ot G47.33 OBSTRUCTIVE SLEEP APNEA (ADULT) (PEDIATR 02/26/2019 EDIS PEARSON MD, Ot I10 ESSENTIAL (PRIMARY) HYPERTENSION 02/26/2019 EDIS PEARSON MD Ot K21.0 GASTRO-ESOPHAGEAL REFLUX DISEASE WITH ES 02/26/2019 EDIS PEARSON MD, Ot K22.2 ESOPHAGEAL OBSTRUCTION 02/26/2019 EDIS PEARSON MD Ot K29.70 GASTRITIS, UNSPECIFIED, WITHOUT BLEEDING 02/26/2019 EDIS PEARSON MD Ot K31.89 OTHER DISEASES OF STOMACH AND DUODENUM 02/26/2019 EDIS PEARSON MD, Ot K66.0 PERITONEAL ADHESIONS (POSTPROCEDURAL) (P 02/26/2019 DEIS PEARSON MD, Ot K76.0 FATTY (CHANGE OF) LIVER, NOT ELSEWHERE C 02/26/2019 EDIS PEARSON MD Ot Z79.4 ASSISTANT CASE MANAGER (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 02/26/2019 EDIS PEARSON MD Ot Z79.82 PENITENTIARY (CURRENT) USE OF ASPIRIN 02/26/2019 EDIS PEARSON MD, Ot Z79.89 9 OTHER ASSISTANT CASE MANAGER (CURRENT) DRUG THERAPY 02/26/2019 EDIS PEARSON MD, Ot Z88.1 ALLERGY STATUS TO OTHER ANTIBIOTIC AGENT 02/26/2019 EDIS PEARSON MD, Ot Z88.8 ALLERGY STATUS TO OTH DRUG/MEDS/BIOL SUB 02/26/2019 EDIS PEARSON MD Ot Z90.71 0 ACQUIRED ABSENCE OF BOTH CERVIX AND UTER 02/26/2019 EDIS PEARSON MD, Ot Z91.04 0 LATEX ALLERGY STATUS 03/04/2019 BHAVANI GALLAGHER MD, Ot E11. 9 TYPE 2 DIABETES MELLITUS WITHOUT COMPLIC 03/04/2019 BHAVANI GALLAGHER MD, Ot I10 ESSENTIAL (PRIMARY) HYPERTENSION 03/04/2019 BHAVANI GALLAGHER MD, Ot Z08 ENCNTR FOR FOLLOW-UP EXAM AFTER TRTMT FO 03/04/2019 BHAVANI GALLAGHER MD Ot Z79. 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, RECT 03/19/2019 NING MONTEJO DOIC B Ot B37.7 CANDIDAL SEPSIS 03/19/2019 NING MONTEJO DOIC B Ot D64.9 ANEMIA, UNSPECIFIED 03/19/2019 NING MONTEJO DOIC B Ot E11.4 0 TYPE 2 DIABETES MELLITUS WITH DIABETIC N 03/19/2019 NING MONTEJO DOIC B Ot E11.6 5 TYPE 2 DIABETES MELLITUS WITH HYPERGLYCE 03/19/2019 NING MONTEJO DOIC B Ot E46 UNSPECIFIED PROTEIN-CALORIE MALNUTRITION 03/19/2019 NING MONTEJO DOIC B Ot E78.0 0 PURE HYPERCHOLESTEROLEMIA, UNSPECIFIED 03/19/2019 NIKIA CANTU MISSY B Ot E87.0 HYPEROSMOLALITY AND HYPERNATREMIA 03/19/2019 NING MONTEJO DOIC B Ot E87.2 ACIDOSIS 03/19/2019 NING MONTEJO DOIC B Ot G47.3 0 SLEEP APNEA, UNSPECIFIED 03/19/2019 NING MONTEJO DOIC B Ot G72.8 1 CRITICAL ILLNESS MYOPATHY 03/19/2019 NING MONTEJO DOIC B Ot I10 ESSENTIAL (PRIMARY) HYPERTENSION 03/19/2019 NING MONTEJO DOIC B Ot I25.1 0 ATHSCL HEART DISEASE OF [place] CORONARY 03/19/2019 NING MONTEJO DOIC B Ot I48.0 PAROXYSMAL ATRIAL FIBRILLATION 03/19/2019 NING MONTEJO DOIC B Ot I48.9 2 UNSPECIFIED ATRIAL FLUTTER 03/19/2019 MISSY MONTEJO DO B Ot J90 PLEURAL EFFUSION, NOT ELSEWHERE CLASSIFI 03/19/2019 NING MONTJEO DOIC B Ot J96.0 1 ACUTE RESPIRATORY FAILURE WITH HYPOXIA 03/19/2019 NING MONTEJO DOIC B Ot J98.0 9 OTHER DISEASES OF [place], NOT ELSEWHER 03/19/2019 NING MONTEJO DOIC B Ot J98.1 1 ATELECTASIS 03/19/2019 NING MONTEJO DOIC B Ot K21.9 GASTRO-ESOPHAGEAL REFLUX DISEASE WITHOUT 03/19/2019 NING MONTEJO DOIC B Ot K63.1 PERFORATION OF INTESTINE (NONTRAUMATIC) 03/19/2019 NING MONTEJO DOIC B Ot K65.1 PERITONEAL ABSCESS 03/19/2019 MISSY MONTEJO DO B Ot K91.8 9 OTH POSTPROCEDURAL COMPLICATIONS AND DIS 03/19/2019 NING MONTEJO DOIC B Ot N17.9 ACUTE KIDNEY FAILURE, UNSPECIFIED 03/19/2019 NING MONTEJO DOIC B Ot N30.0 0 ACUTE CYSTITIS WITHOUT HEMATURIA 03/19/2019 MISSY MONTEJO DO B Ot R57.0 CARDIOGENIC SHOCK 03/19/2019 NING MONTEJO DOIC B Ot R57.1 HYPOVOLEMIC SHOCK 03/19/2019 NING MONTEJO DOIC B Ot R65.2 1 SEVERE SEPSIS WITH SEPTIC SHOCK 03/19/2019 NING MONTEJO DOIC B Ot T81.43XA INFCT FOL A PROCEDURE, ORGAN AND SPACE S 03/19/2019 NING MONTEJO DOIC B Ot T81.44XA SEPSIS FOLLOWING A PROCEDURE, INITIAL EN 03/19/2019 NING MONTEJO DOIC B Ot T81.83XA PERSISTENT POSTPROCEDURAL FISTULA, INITI 04/03/2019 BHAVANI GALLAGHER MD Ot E11. 9 TYPE 2 DIABETES MELLITUS WITHOUT COMPLIC 04/03/2019 BHAVANI GALLAGHER MD Ot I10 ESSENTIAL (PRIMARY) HYPERTENSION 04/03/2019 BHAVANI GALLAGHER MD, Ot Z08 ENCNTR FOR FOLLOW-UP EXAM AFTER TRTMT FO 04/03/2019 BHAVANI GALLAGHER MD, Ot Z79. 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 9 TYPE 2 DIABETES MELLITUS WITHOUT COMPLIC 04/22/2019 BHAVANI GALLAGHER MD Ot I10 ESSENTIAL (PRIMARY) HYPERTENSION 04/22/2019 BHAVANI GALLAGHER MD, Ot Z08 ENCNTR FOR FOLLOW-UP EXAM AFTER TRTMT FO 04/22/2019 BHAVANI GALLAGHER MD, Ot Z79. 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 9 TYPE 2 DIABETES MELLITUS WITHOUT COMPLIC 04/23/2019 BHAVANI GALLAGHER MD, Ot I10 ESSENTIAL (PRIMARY) HYPERTENSION 04/23/2019 BHAVANI GALLAGHER MD, Ot Z08 ENCNTR FOR FOLLOW-UP EXAM AFTER TRTMT FO 04/23/2019 BHAVANI GALLAGHER MD, Ot Z79. 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 9 TYPE 2 DIABETES MELLITUS WITHOUT COMPLIC 04/28/2019 BHAVANI GALLAGHER MD Ot I10 ESSENTIAL (PRIMARY) HYPERTENSION 04/28/2019 BHAVANI GALLAGHER MD Ot Z08 ENCNTR FOR FOLLOW-UP EXAM AFTER TRTMT FO 04/28/2019 BHAVANI GALLAGHER MD, Ot Z79. 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, RECT 05/10/2019 GALLAGHER DO, YARON Ot D64.9 ANEMIA, UNSPECIFIED 05/10/2019 GALLAGHER DO, YARON Ot E03.9 HYPOTHYROIDISM, UNSPECIFIED 05/10/2019 GALLAGHER DO, YARON Ot E11.40 TYPE 2 DIABETES MELLITUS WITH DIABETIC N 05/10/2019 GALLAGHER DO, YARON Ot E46 UNSPECIFIED PROTEIN-CALORIE MALNUTRITION 05/10/2019 GALLAGHER DO, YARON Ot E78.5 HYPERLIPIDEMIA, UNSPECIFIED 05/10/2019 GALLAGHER DO, YARON Ot F03.90 UNSPECIFIED DEMENTIA WITHOUT BEHAVIORAL 05/10/2019 GALLAGHER DO, YARON Ot F32.9 MAJOR DEPRESSIVE DISORDER, SINGLE EPISOD 05/10/2019 GALLAGHER DO, YARON Ot F41.9 ANXIETY DISORDER, UNSPECIFIED 05/10/2019 GALLAGHER DO, YARON Ot G47.33 OBSTRUCTIVE SLEEP APNEA (ADULT) (PEDIATR 05/10/2019 GALLAGHER DO, YARON Ot G72.81 CRITICAL ILLNESS MYOPATHY 05/10/2019 GALLAGHER DO, YARON Ot I10 ESSENTIAL (PRIMARY) HYPERTENSION 05/10/2019 GALLAGHER DO, YARON Ot I25.10 ATHSCL HEART DISEASE OF [place] CORONARY 05/10/2019 GALLAGHER DO, YARON Ot I48.0 PAROXYSMAL ATRIAL FIBRILLATION 05/10/2019 GALLAGHER DO, YARON Ot I65.23 OCCLUSION AND STENOSIS OF BILATERAL STERN 05/10/2019 GALLAGHER DO, YARON Ot K21.9 GASTRO-ESOPHAGEAL REFLUX DISEASE WITHOUT 05/10/2019 GALLAGHER DO, YARON Ot K76.89 OTHER SPECIFIED DISEASES OF LIVER 05/10/2019 GALLAGHER DO, YARON Ot L89.15 2 PRESSURE ULCER OF SACRAL REGION, STAGE 2 05/10/2019 GALLAGHER DO, YARON Ot L89.81 9 PRESSURE ULCER OF HEAD, UNSPECIFIED STAG 05/10/2019 GALLAGHER DO, YARON Ot L89.89 9 PRESSURE ULCER OF OTHER SITE, UNSPECIFIE 05/10/2019 GALLAGHER DO, YARON Ot M10.9 GOUT, UNSPECIFIED 05/10/2019 GALLAGHER DO, YARON Ot M54.9 DORSALGIA, UNSPECIFIED 05/10/2019 GALLAGHER DO, YARON Ot R00.0 TACHYCARDIA, UNSPECIFIED 05/10/2019 GALLAGHER DO, YARON Ot T81.31 XA DISRUPTION OF EXTERNAL OPERATION (SURGIC 05/10/2019 GALLAGHER DO, YARON Ot Z66 DO NOT RESUSCITATE 05/10/2019 AILEEN CANTU YARON Ot Z74.01 BED CONFINEMENT STATUS 05/10/2019 GALLAGHERMARCELINO CANTU YARON Ot Z79.4 PENITENTIARY (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 05/10/2019 GALLAGHER YARON Ot Z85.03 8 PERSONAL HISTORY OF MALIGNANT NEOPLASM O 05/10/2019 GALLAGHER YARON Ot Z87.89 1 PERSONAL HISTORY OF NICOTINE DEPENDENCE 05/10/2019 GALLAGHER YARON Ot Z90.71 0 ACQUIRED ABSENCE OF BOTH CERVIX AND UTER 05/10/2019 AILEEN CANTU YARON Ot Z93.2 ILEOSTOMY STATUS Procedures Code Description Performed By Per formed On 37.22 LEFT HEART CARDIAC CATH 07/10/2012 88.56 CHARO LEONIDAS ARTERIOGR-2 CATH 07/10/2012 [id number] IN SERTION OF ENDOTRACHEAL AIRWAY INTO TR 02/25/2019 [id number] EX CISION OF SMALL INTESTINE, OPEN APPROA 02/25/2019 [id number] RE LEASE SMALL INTESTINE, OPEN APPROACH 02/25/2019 [id number] RE SPIRATORY VENTILATION, GREATER THAN 96 02/25/2019 [id number] RE PAIR SMALL INTESTINE, OPEN APPROACH 03/08/2019 [id number] BY PASS ILEUM TO CUTANEOUS WITH AUTOL SUB 03/11/2019 [id number] [place] PPLEMENT ABDOMINAL WALL WITH SYNTH SUB 03/13/2019 [id number] EX TIRPATION OF MATTER FROM RIGHT MAIN BR 03/15/2019 [id number] EX TIRPATION OF MATTER FROM LEFT MAIN BRO 03/15/2019 Results Test Result Range Whole blood basic metabolic panel - 11/21 09:53 Serum or plasma sodium measurement (moles/volume) 140 mmol/L 135-145 Serum or plasma potassium measurement (moles/volume) 3.9 mmol/L 3.6-5.0 Serum or plasma chloride measurement (moles/volume) 109 mmol/L 98-107 Carbon dioxide 23 mmol/L 21-32 Serum or plasma anion gap determination (moles/volume) 8 mmol/L 5-14 Serum or plasma urea nitrogen measurement (mass/volume ) 16 mg/dL 7-18 Serum or plasma creatinine measurement (mass/volume) 1.01 mg/dL 0.60-1.30 Serum or plasma urea nitrogen/creatinine mass ratio 16 NRG Serum or plasma creatinine measurement w ith calculation of estimated glomerular filtration rate 54 NRG Serum or plasma glucose measurement (mass/volume) 206 mg/dL 70-105 Serum or plasma calcium measurement (mass/volume) 9.5 mg/dL 8.5-10.1 Serum or plasma uric acid measurement (m ass/volume) - 10/12/16 09:53 Serum or plasma uric [...] Sodium urate/total calculus mass ratio by infrared spe ctroscopy 45 % < 200 Sulfites [presence] in urine by test strip 8 < 30 Urine phosphate measurement (mass/volume) 654 % < 1100 Urine magnesium measurement (mass/volume) 52 % > 60 Urine calcium oxalate measurement 1.14 < 2.00 Urine calcium phosphate crystals detecti on by computer assisted method 0.12 < 2.00 24 hour urine sodium urate (saturation fraction) 0 .09 < 2.00 Triple phosphate crystals detection in u rine sediment by light microscopy 0.01 < 75.00 24 hour urine uric acid (saturation fraction) 1.54 < 2.00 Urine ammonium measurement 44 % 14- 62 Urine potassium measurement 38 % 19 -135 24 hour urine creatinine measurement (mass/time) 1 346 % 600- 1800 Clinical meter calibrator review of results See Below [facility] Whole blood basic metabolic panel - 10/07 10/23 15:42 Serum or plasma sodium measurement (moles/volume) 141 mmol/L 135-145 Serum or plasma potassium measurement (moles/volume) 3.6 mmol/L 3.6-5.0 Serum or plasma chloride measurement (moles/volume) 113 mmol/L 98-107 Carbon dioxide 19 mmol/L 21-32 Serum or plasma anion gap determination (moles/volume) 9 mmol/L 5-14 Serum or plasma urea nitrogen measurement (mass/volume ) 20 mg/dL 7-18 Serum or plasma creatinine measurement (mass/volume) 1.12 mg/dL 0.60-1.30 Serum or plasma urea nitrogen/creatinine mass ratio 18 NRG Serum or plasma creatinine measurement w ith calculation of estimated glomerular filtration rate 48 NRG Serum or plasma glucose measurement (mass/volume) 125 mg/dL 70-105 Serum or plasma calcium measurement (mass/volume) 9.7 mg/dL 8.5-10.1 Serum or plasma uric acid measurement (m ass/volume) - 10/31/17 15:42 Serum or plasma uric acid measurement (mass/volume) 2.7 mg/dL 2.6-7.2 Serum or plasma phosphate measurement (m ass/volume) - 10/31/17 15:42 Serum or plasma phosphate [...] Sodium urate/total calculus mass ratio by infrared spe ctroscopy 63 % < 200 Sulfites [presence] in urine by test strip 10 < 30 Urine phosphate measurement (mass/volume) 994 % < 1100 Urine magnesium measurement (mass/volume) 50 % > 60 Urine calcium oxalate measurement 1.07 < 2.00 Urine calcium phosphate crystals detecti on by computer assisted method 0.21 < 2.00 24 hour urine sodium urate (saturation fraction) 0 .25 < 2.00 Triple phosphate crystals detection in u rine sediment by light microscopy 0.03 < 75.00 24 hour urine uric acid (saturation fraction) 2.35 < 2.00 Urine ammonium measurement 69 % 14- 62 Urine potassium measurement 39 % 19 -135 24 hour urine creatinine measurement (mass/time) 1 385 % 600- 1800 Clinical meter calibrator review of results See Below NRG Automated blood complete blood count (he mogram) panel - 04/18/18 07:05 Blood leukocytes automated count (number/volume) 5.8 10*3/uL 4.3-11.0 Blood erythrocytes automated count (number/volume) 4.27 10*6/uL 4.35-5.85 Venous blood hemoglobin measurement (mass/volume) 14.0 g/dL 11.5-16.0 Blood hematocrit (volume fraction) 41 % 35-52 Automated erythrocyte mean corpuscular volume 95 [ foz_us] 80-99 Automated erythrocyte mean corpuscular h emoglobin (mass per erythrocyte) 33 pg 25-34 Automated erythrocyte mean corpuscular h emoglobin concentration measurement (mass/volume) 35 g/dL 32-36 Automated erythrocyte distribution width ratio 13. 4 % 10.0- 14.5 Automated blood platelet count (count/volume) 177 10*3/uL 130-400 Automated blood platelet mean volume measurement 9.2 [foz_us] 7.4-10.4 Complete urinalysis with reflex to cultu re - 04/18/18 07:05 Urine color determination YELLOW NRG Urine clarity determination CLEAR NR G Urine pH measurement by test strip 5 5-9 Specific gravity of urine by test strip 1.020 1.016-1.022 Urine protein assay by test strip, semi-quantitative 3+ NEGATIVE Urine glucose detection by automated test strip NE GATIVE NEGATIVE Erythrocytes detection in urine sediment by light micr oscopy NEGATIVE NEGATIVE Urine ketones detection by automated test strip NE GATIVE NEGATIVE Urine nitrite detection by test strip NEGATIVE NEGATIVE Urine total bilirubin detection by test strip NEGA TIVE NEGATIVE Urine urobilinogen measurement by automated test strip (mass/volume) NORMAL NORMAL Urine leukocyte esterase detection by dipstick 1+ NEGATIVE Automated urine sediment erythrocyte cou nt by microscopy (number/high power field) NONE NRG Automated urine sediment leukocyte count by microscopy (number/high power field) [HPF] NRG Bacteria detection in urine sediment by light microsco py TRACE NRG Squamous epithelial cells detection in u rine sediment by light microscopy 0-2 NRG Crystals detection in urine sediment by light microsco py NONE NRG Casts detection in urine sediment by light microscopy NONE NRG Mucus detection in urine sediment by light microscopy NEGATIVE NRG Complete urinalysis with reflex to culture NO NRG PT panel in platelet poor plasma by coag ulation assay - 04/18/18 07:05 Prothrombin time (PT) in platelet poor plasma by coagu lation assay 14.3 s 12.2-14.7 INR in platelet poor plasma or blood by coagulation as say 1.1 0.8-1.4 Activated partial thromboplastin time (a PTT) in platelet poor plasma bycoagulation assay - 04/18/18 07:05 Activated partial thromboplastin time (a PTT) in platelet poor plasma bycoagulation assay 31 s 24-35 Comprehensive metabolic panel - 04/18/18 07:05 Serum or plasma sodium measurement (moles/volume) 142 mmol/L 135-145 Serum or plasma potassium measurement (moles/volume) 3.6 mmol/L 3.6-5.0 Serum or plasma chloride measurement (moles/volume) 111 mmol/L 98-107 Carbon dioxide 20 mmol/L 21-32 Serum or plasma anion gap determination (moles/volume) 11 mmol/L 5-14 Serum or plasma urea nitrogen measurement (mass/volume ) 15 mg/dL 7-18 Serum or plasma creatinine measurement (mass/volume) 1.16 mg/dL 0.60-1.30 Serum or plasma urea nitrogen/creatinine mass ratio 13 NRG Serum or plasma creatinine measurement w ith calculation of estimated glomerular filtration rate 46 NRG Serum or plasma glucose measurement (mass/volume) 99 mg/dL 70-105 Serum or plasma calcium measurement (mass/volume) 10.1 mg/dL 8.5-10.1 Serum or plasma total bilirubin measurement (mass/volu me) 0.8 mg/dL 0.1-1.0 Serum or plasma alkaline phosphatase lilliana surement (enzymatic activity/volume) 43 U/L 40-136 Serum or plasma aspartate aminotransfera se measurement (enzymatic activity/volume) 34 U/L 5-34 Serum or plasma alanine aminotransferase measurement (enzymatic activity/volume) 33 U/L 0-55 Serum or plasma protein measurement (mass/volume) 7.8 g/dL 6.4-8.2 Serum or plasma albumin measurement (mass/volume) 4.5 g/dL 3.2-4.5 CALCIUM CORRECTED 9.7 mg/dL 8.5-10.1 Lipid 1996 panel - 04/18/18 07:05 Serum or plasma triglyceride measurement (mass/volume) 168 mg/dL <150 Serum or plasma cholesterol measurement (mass/volume) 148 mg/dL < 200 Serum or plasma cholesterol in HDL measurement (mass/v olume) 54 mg/dL 40-60 Cholesterol in LDL [mass/volume] in serum or plasma by direct assay 68 mg/dL 1-129 Serum or plasma cholesterol in VLDL measurement (mass/ volume) 34 mg/dL 5-40 Methicillin resistant Staphylococcus aur eus (MRSA) screening culture - 04/18/18 07:05 Methicillin resistant Staphylococcus aureus (MRSA) scr eening culture NEG NRG Capillary blood glucose measurement by g lucometer (mass/volume) - 04/18/18 10:28 Capillary blood glucose measurement by glucometer (mas s/volume) 98 mg/dL 70-110 Complete blood count (CBC) with automate d white blood cell (WBC) differential - 04/29/18 09:45 Blood leukocytes automated count (number/volume) 8.9 10*3/uL 4.3-11.0 Blood erythrocytes automated count (number/volume) 4.50 10*6/uL 4.35-5.85 Venous blood hemoglobin measurement (mass/volume) 14.8 g/dL 11.5-16.0 Blood hematocrit (volume fraction) 42 % 35-52 Automated erythrocyte mean corpuscular volume 94 [ foz_us] 80-99 Automated erythrocyte mean corpuscular h emoglobin (mass per erythrocyte) 33 pg 25-34 Automated erythrocyte mean corpuscular h emoglobin concentration measurement (mass/volume) 35 g/dL 32-36 Automated erythrocyte distribution width ratio 13. 6 % 10.0- 14.5 Automated blood platelet count (count/volume) 217 10*3/uL 130-400 Automated blood platelet mean volume measurement 9.2 [foz_us] 7.4-10.4 Automated blood neutrophils/100 leukocytes 83 % 42-75 Automated blood lymphocytes/100 leukocytes 9 % 12-44 Blood monocytes/100 leukocytes 7 % 0-12 Automated blood eosinophils/100 leukocytes 2 % 0-10 Automated blood basophils/100 leukocytes 0 % 0-10 Blood neutrophils automated count (number/volume) 7.3 10*3 1.8-7.8 Blood lymphocytes automated count (number/volume) 0.8 10*3 1.0-4.0 Blood monocytes automated count (number/volume) 0. 6 10*3 0.0-1.0 Automated eosinophil count 0.1 10*3/uL 0 .0-0.3 Automated blood basophil count (count/volume) 0.0 10*3/uL 0.0-0.1 Comprehensive metabolic panel - 04/29/18 09:45 Serum or plasma sodium measurement (moles/volume) 138 mmol/L 135-145 Serum or plasma potassium measurement (moles/volume) 3.8 mmol/L 3.6-5.0 Serum or plasma chloride measurement (moles/volume) 109 mmol/L 98-107 Carbon dioxide 15 mmol/L 21-32 Serum or plasma anion gap determination (moles/volume) 14 mmol/L 5-14 Serum or plasma urea nitrogen measurement (mass/volume ) 23 mg/dL 7-18 Serum or plasma creatinine measurement (mass/volume) 1.52 mg/dL 0.60-1.30 Serum or plasma urea nitrogen/creatinine mass ratio 15 NRG Serum or plasma creatinine measurement w ith calculation of estimated glomerular filtration rate 34 NRG Serum or plasma glucose measurement (mass/volume) 164 mg/dL 70-105 Serum or plasma calcium measurement (mass/volume) 10.0 mg/dL 8.5-10.1 Serum or plasma total bilirubin measurement (mass/volu me) 0.8 mg/dL 0.1-1.0 Serum or plasma alkaline phosphatase lilliana surement (enzymatic activity/volume) 48 U/L 40-136 Serum or plasma aspartate aminotransfera se measurement (enzymatic activity/volume) 26 U/L 5-34 Serum or plasma alanine aminotransferase measurement (enzymatic activity/volume) 25 U/L 0-55 Serum or plasma protein measurement (mass/volume) 8.0 g/dL 6.4-8.2 Serum or plasma albumin measurement (mass/volume) 4.5 g/dL 3.2-4.5 CALCIUM CORRECTED 9.6 mg/dL 8.5-10.1 Magnesium - 04/29/18 09:45 Magnesium 1.3 mg/dL 1.8-2.4 Serum or plasma troponin i.cardiac measu rement (mass/volume) - 04/29/18 09:45 Serum or plasma troponin i.cardiac measurement (mass/v olume) < ng/mL <0.30 Myoglobin, serum - 04/29/18 09:45 Myoglobin, serum 176.5 ng/mL 10.0-92.0 PT panel in platelet poor plasma by coag ulation assay - 04/29/18 09:45 Prothrombin time (PT) in platelet poor plasma by coagu lation assay 14.6 s 12.2-14.7 INR in platelet poor plasma or blood by coagulation as say 1.1 0.8-1.4 Activated partial thromboplastin time (a PTT) in platelet poor plasma bycoagulation assay - 04/29/18 09:45 Activated partial thromboplastin time (a PTT) in platelet poor plasma bycoagulation assay 30 s 24-35 Complete urinalysis with reflex to cultu re - 04/29/18 10:48 Urine color determination YELLOW NRG Urine clarity determination CLEAR NR G Urine pH measurement by test strip 5 5-9 Specific gravity of urine by test strip 1.020 1.016-1.022 Urine protein assay by test strip, semi-quantitative 3+ NEGATIVE Urine glucose detection by automated test strip NE GATIVE NEGATIVE Erythrocytes detection in urine sediment by light micr oscopy NEGATIVE NEGATIVE Urine ketones detection by automated test strip NE GATIVE NEGATIVE Urine nitrite detection by test strip NEGATIVE NEGATIVE Urine total bilirubin detection by test strip NEGA TIVE NEGATIVE Urine urobilinogen measurement by automated test strip (mass/volume) NORMAL NORMAL Urine leukocyte esterase detection by dipstick 1+ NEGATIVE Automated urine sediment erythrocyte cou nt by microscopy (number/high power field) NONE NRG Automated urine sediment leukocyte count by microscopy (number/high power field) [HPF] NRG Bacteria detection in urine sediment by light microsco py TRACE NRG Squamous epithelial cells detection in u rine sediment by light microscopy 0-2 NRG Crystals detection in urine sediment by light microsco py PRESENT NRG Casts detection in urine sediment by light microscopy PRESENT NRG Mucus detection in urine sediment by light microscopy NEGATIVE NRG Complete urinalysis with reflex to culture YES NRG Amorphous sediment detection in urine sediment by ligh t microscopy RARE JONATHAN URATES NRG Hyaline casts detection in urine sediment by light estiven roscopy 5-10 NRG Granular casts detection in urine sediment by light mi croscopy RARE NRG Bacterial urine culture - 04/29/18 10:48 Bacterial urine culture SEE COMMEN NRG COLONY COUNT . NRG Serum or plasma troponin i.cardiac measu rement (mass/volume) - 04/29/18 12:22 Serum or plasma troponin i.cardiac measurement (mass/v olume) < ng/mL <0.30 Myoglobin, serum - 04/29/18 12:22 Myoglobin, serum 179.6 ng/mL 10.0-92.0 Whole blood basic metabolic panel - 10/07 10/24 15:48 Serum or plasma sodium measurement (moles/volume) 141 mmol/L 135-145 Serum or plasma potassium measurement (moles/volume) 3.6 mmol/L 3.6-5.0 Serum or plasma chloride measurement (moles/volume) 109 mmol/L 98-107 Carbon dioxide 23 mmol/L 21-32 Serum or plasma anion gap determination (moles/volume) 9 mmol/L 5-14 Serum or plasma urea nitrogen measurement (mass/volume ) 16 mg/dL 7-18 Serum or plasma creatinine measurement (mass/volume) 1.02 mg/dL 0.60-1.30 Serum or plasma urea nitrogen/creatinine mass ratio 16 NRG Serum or plasma creatinine measurement w ith calculation of estimated glomerular filtration rate 53 NRG Serum or plasma glucose measurement (mass/volume) 81 mg/dL 70-105 Serum or plasma calcium measurement (mass/volume) 10.2 mg/dL 8.5-10.1 Serum or plasma uric acid measurement (m ass/volume) - 10/31/18 15:48 Serum or plasma uric acid measurement (mass/volume) 2.4 mg/dL 2.6-7.2 Serum or plasma phosphate measurement (m ass/volume) - 10/31/18 15:48 Serum or plasma phosphate measurement (mass/volume) 3.0 mg/dL 2.3-4.7 CD3+CD4+ (T4 helper) cells/100 cells in blood - 11/02/18 08:26 Timed urine calcium measurement (mass/volume) 76 % < 250 Urine oxalate detection 14 < 45 Urine uric acid measurement (mass/volume) 213 % < 700 Urine citrate measurement (mass/volume) 43 % > 320 Urine pH measurement 5.5 5.5-7.0 24 hour urine specimen volume measurement 1.49 % > 2.00 Sodium urate/total calculus mass ratio by infrared spe ctroscopy 41 % < 200 Sulfites [presence] in urine by test strip 8 < 30 Urine phosphate measurement (mass/volume) 635 % < 1100 Urine magnesium measurement (mass/volume) 45 % > 60 Urine calcium oxalate measurement 0.69 < 2.00 Urine calcium phosphate crystals detecti on by computer assisted method 0.28 < 2.00 24 hour urine sodium urate (saturation fraction) 0 .21 < 2.00 Triple phosphate crystals detection in u rine sediment by light microscopy 0.05 < 75.00 24 hour urine uric acid (saturation fraction) 1.35 < 2.00 Urine ammonium measurement 34 % 14- 62 Urine potassium measurement 38 % 19 -135 24 hour urine creatinine measurement (mass/time) 1 199 % 600- 1800 Clinical meter calibrator review of results See Below NR Methicillin resistant Staphylococcus aur eus (MRSA) screening culture - 02/19/19 14:01 Methicillin resistant Staphylococcus aureus (MRSA) scr eening culture NEG NR Capillary blood glucose measurement by g lucometer (mass/volume) - 02/21/19 07:14 Capillary blood glucose measurement by glucometer (mas s/volume) 116 mg/dL 70-110 Complete blood count (CBC) with automate d white blood cell (WBC) differential - 02/22/19 16:30 Blood leukocytes automated count (number/volume) 12.5 10*3/uL 4.3-11.0 Blood erythrocytes automated count (number/volume) 3.95 10*6/uL 4.35-5.85 Venous blood hemoglobin measurement (mass/volume) 12.8 g/dL 11.5-16.0 Blood hematocrit (volume fraction) 38 % 35-52 Automated erythrocyte mean corpuscular volume 96 [ foz_us] 80-99 Automated erythrocyte mean corpuscular h emoglobin (mass per erythrocyte) 32 pg 25-34 Automated erythrocyte mean corpuscular h emoglobin concentration measurement (mass/volume) 34 g/dL 32-36 Automated erythrocyte distribution width ratio 13. 3 % 10.0- 14.5 Automated blood platelet count (count/volume) 186 10*3/uL 130-400 Automated blood platelet mean volume measurement 9.1 [foz_us] 7.4-10.4 Automated blood neutrophils/100 leukocytes 76 % 42-75 Automated blood lymphocytes/100 leukocytes 12 % 12-44 Blood monocytes/100 leukocytes 11 % 0-12 Automated blood eosinophils/100 leukocytes 1 % 0-10 Automated blood basophils/100 leukocytes 0 % 0-10 Blood neutrophils automated count (number/volume) 9.5 10*3 1.8-7.8 Blood lymphocytes automated count (number/volume) 1.5 10*3 1.0-4.0 Blood monocytes automated count (number/volume) 1. 4 10*3 0.0-1.0 Automated eosinophil count 0.1 10*3/uL 0 .0-0.3 Automated blood basophil count (count/volume) 0.0 10*3/uL 0.0-0.1 Complete urinalysis with reflex to cultu re - 02/22/19 16:30 Urine color determination YELLOW NRG Urine clarity determination CLEAR NR G Urine pH measurement by test strip 6 5-9 Specific gravity of urine by test strip 1.015 1.016-1.022 Urine protein assay by test strip, semi-quantitative 2+ NEGATIVE Urine glucose detection by automated test strip NE GATIVE NEGATIVE Erythrocytes detection in urine sediment by light micr oscopy NEGATIVE NEGATIVE Urine ketones detection by automated test strip NE GATIVE NEGATIVE Urine nitrite detection by test strip NEGATIVE NEGATIVE Urine total bilirubin detection by test strip NEGA TIVE NEGATIVE Urine urobilinogen measurement by automated test strip (mass/volume) NORMAL NORMAL Urine leukocyte esterase detection by dipstick 2+ NEGATIVE Automated urine sediment erythrocyte cou nt by microscopy (number/high power field) [HPF] NRG Automated urine sediment leukocyte count by microscopy (number/high power field) [HPF] NRG Bacteria detection in urine sediment by light microsco py TRACE NRG Crystals detection in urine sediment by light microsco py NONE NRG Casts detection in urine sediment by light microscopy NONE NRG Mucus detection in urine sediment by light microscopy NEGATIVE NRG Complete urinalysis with reflex to culture YES NRG Comprehensive metabolic panel - 02/22/19 16:30 Serum or plasma sodium measurement (moles/volume) 139 mmol/L 135-145 Serum or plasma potassium measurement (moles/volume) 4.1 mmol/L 3.6-5.0 Serum or plasma chloride measurement (moles/volume) 104 mmol/L 98-107 Carbon dioxide 24 mmol/L 21-32 Serum or plasma anion gap determination (moles/volume) 11 mmol/L 5-14 Serum or plasma urea nitrogen measurement (mass/volume ) 28 mg/dL 7-18 Serum or plasma creatinine measurement (mass/volume) 1.38 mg/dL 0.60-1.30 Serum or plasma urea nitrogen/creatinine mass ratio 20 NRG Serum or plasma creatinine measurement w ith calculation of estimated glomerular filtration rate 37 NRG Serum or plasma glucose measurement (mass/volume) 122 mg/dL 70-105 Serum or plasma calcium measurement (mass/volume) 9.4 mg/dL 8.5-10.1 Serum or plasma total bilirubin measurement (mass/volu me) 0.4 mg/dL 0.1-1.0 Serum or plasma alkaline phosphatase lilliana surement (enzymatic activity/volume) 40 U/L 40-136 Serum or plasma aspartate aminotransfera se measurement (enzymatic activity/volume) 35 U/L 5-34 Serum or plasma alanine aminotransferase measurement (enzymatic activity/volume) 32 U/L 0-55 Serum or plasma protein measurement (mass/volume) 7.0 g/dL 6.4-8.2 Serum or plasma albumin measurement (mass/volume) 4.1 g/dL 3.2-4.5 CALCIUM CORRECTED 9.3 mg/dL 8.5-10.1 Bacterial urine culture - 02/22/19 16:30 Bacterial urine culture NG NR Influenza virus A and B antigen detectio n - 02/24/19 19:57 FLU RESULT NEGATIVE FOR INFLUENZA A AND B ANTIGENS BY IA NR Complete blood count (CBC) with automate d white blood cell (WBC) differential - 02/24/19 19:58 Blood leukocytes automated count (number/volume) 9.0 10*3/uL 4.3-11.0 Blood erythrocytes automated count (number/volume) 4.45 10*6/uL 4.35-5.85 Venous blood hemoglobin measurement (mass/volume) 14.6 g/dL 11.5-16.0 Blood hematocrit (volume fraction) 43 % 35-52 Automated erythrocyte mean corpuscular volume 96 [ foz_us] 80-99 Automated erythrocyte mean corpuscular h emoglobin (mass per erythrocyte) 33 pg 25-34 Automated erythrocyte mean corpuscular h emoglobin concentration measurement (mass/volume) 34 g/dL 32-36 Automated erythrocyte distribution width ratio 13. 9 % 10.0- 14.5 Automated blood platelet count (count/volume) 191 10*3/uL 130-400 Automated blood platelet mean volume measurement 10.0 [foz_us] 7.4-10.4 Automated blood neutrophils/100 leukocytes 75 % 42-75 Automated blood lymphocytes/100 leukocytes 9 % 12-44 Blood monocytes/100 leukocytes 16 % 0-12 Automated blood eosinophils/100 leukocytes 0 % 0-10 Automated blood basophils/100 leukocytes 0 % 0-10 Blood neutrophils automated count (number/volume) 6.7 10*3 1.8-7.8 Blood lymphocytes automated count (number/volume) 0.8 10*3 1.0-4.0 Blood monocytes automated count (number/volume) 1. 4 10*3 0.0-1.0 Automated eosinophil count 0.0 10*3/uL 0 .0-0.3 Automated blood basophil count (count/volume) 0.0 10*3/uL 0.0-0.1 PT panel in platelet poor plasma by coag ulation assay - 02/24/19 19:58 Prothrombin time (PT) in platelet poor plasma by coagu lation assay 17.2 s 12.2-14.7 INR in platelet poor plasma or blood by coagulation as say 1.3 0.8-1.4 Activated partial thromboplastin time (a PTT) in platelet poor plasma bycoagulation assay - 02/24/19 19:58 Activated partial thromboplastin time (a PTT) in platelet poor plasma bycoagulation assay 30 s 24-35 Blood lactic acid measurement (moles/vol ume) - 02/24/19 19:58 Blood lactic acid measurement (moles/volume) 4.33 mmol/L 0.50-2.00 Comprehensive metabolic panel - 02/24/19 19:58 Serum or plasma sodium measurement (moles/volume) 134 mmol/L 135-145 Serum or plasma potassium measurement (moles/volume) 4.1 mmol/L 3.6-5.0 Serum or plasma chloride measurement (moles/volume) 102 mmol/L 98-107 Carbon dioxide 18 mmol/L 21-32 Serum or plasma anion gap determination (moles/volume) 14 mmol/L 5-14 Serum or plasma urea nitrogen measurement (mass/volume ) 56 mg/dL 7-18 Serum or plasma creatinine measurement (mass/volume) 2.07 mg/dL 0.60-1.30 Serum or plasma urea nitrogen/creatinine mass ratio 27 NRG Serum or plasma creatinine measurement w ith calculation of estimated glomerular filtration rate 23 NRG Serum or plasma glucose measurement (mass/volume) 157 mg/dL 70-105 Serum or plasma calcium measurement (mass/volume) 8.1 mg/dL 8.5-10.1 Serum or plasma total bilirubin measurement (mass/volu me) 0.7 mg/dL 0.1-1.0 Serum or plasma alkaline phosphatase lilliana surement (enzymatic activity/volume) 41 U/L 40-136 Serum or plasma aspartate aminotransfera se measurement (enzymatic activity/volume) 24 U/L 5-34 Serum or plasma alanine aminotransferase measurement (enzymatic activity/volume) 17 U/L 0-55 Serum or plasma protein measurement (mass/volume) 6.2 g/dL 6.4-8.2 Serum or plasma albumin measurement (mass/volume) 3.2 g/dL 3.2-4.5 CALCIUM CORRECTED 8.7 mg/dL 8.5-10.1 Magnesium - 02/24/19 19:58 Magnesium 1.9 mg/dL 1.6-2.4 Serum or plasma creatine kinase measurem ent (enzymatic activity/volume) - 02/24/19 19:58 Serum or plasma creatine kinase measurem ent (enzymatic activity/volume) 73 U/L 29-168 Serum or plasma creatine kinase MB measu rement (enzymatic activity/volume) - 02/24/19 19:58 Serum or plasma creatine kinase MB measu rement (enzymatic activity/volume) 2.2 ng/mL <6.6 Serum or plasma troponin i.cardiac measu rement (mass/volume) - 02/24/19 19:58 Serum or plasma troponin i.cardiac measurement (mass/v olume) 0.039 ng/mL <0.028 Serum or plasma lithium measurement (mol es/volume) - 02/24/19 19:58 BNP PT 111.2 pg/mL <100.0 Myoglobin, serum - 02/24/19 19:58 Myoglobin, serum 183.1 ng/mL 10.0-92.0 Serum or plasma amylase measurement (enz ymatic activity/volume) - 02/24/19 19:58 Serum or plasma amylase measurement (enzymatic activit y/volume) 99 U/L 25-125 Lipase - 02/24/19 19:58 Lipase 24 U/L 8-78 Serum or plasma thyrotropin measurement by detection limit <=0.05 miu/l (units/volume) - 02/24/19 19:58 Serum or plasma thyrotropin measurement by detection limit <=0.05 miu/l (units/volume) 0.41 u[iU]/mL 0.35-4.94 Bacterial blood culture - 02/24/19 19:58 QUANTITY OF GROWTH Isolated NRG Bacterial blood culture [id number] NRG Capillary blood glucose measurement by g lucometer (mass/volume) - 02/24/19 20:16 Capillary blood glucose measurement by glucometer (mas s/volume) 140 mg/dL 70-110 Bacterial blood culture - 02/24/19 20:28 QUANTITY OF GROWTH . NRG Bacterial blood culture SEE COMMEN NRG Complete urinalysis with reflex to cultu re - 02/24/19 20:43 Urine color determination YELLOW NRG Urine clarity determination CLEAR NR G Urine pH measurement by test strip 5 5-9 Specific gravity of urine by test strip 1.015 1.016-1.022 Urine protein assay by test strip, semi-quantitative 2+ NEGATIVE Urine glucose detection by automated test strip NE GATIVE NEGATIVE Erythrocytes detection in urine sediment by light micr oscopy 1+ NEGATIVE Urine ketones detection by automated test strip 1+ NEGATIVE Urine nitrite detection by test strip NEGATIVE NEGATIVE Urine total bilirubin detection by test strip NEGA TIVE NEGATIVE Urine urobilinogen measurement by automated test strip (mass/volume) NORMAL NORMAL Urine leukocyte esterase detection by dipstick 1+ NEGATIVE Automated urine sediment erythrocyte cou nt by microscopy (number/high power field) RARE NRG Automated urine sediment leukocyte count by microscopy (number/high power field) [HPF] NRG Bacteria detection in urine sediment by light microsco py FEW NRG Squamous epithelial cells detection in u rine sediment by light microscopy 2-5 NRG Crystals detection in urine sediment by light microsco py PRESENT NRG Casts detection in urine sediment by light microscopy PRESENT NRG Mucus detection in urine sediment by light microscopy NEGATIVE NRG Complete urinalysis with reflex to culture CULTURE PENDING NRG Amorphous sediment detection in urine sediment by ligh t microscopy MOD JONATHAN URATES NRG Hyaline casts detection in urine sediment by light estiven roscopy 0-2 NRG Bacterial urine culture - 02/24/19 20:43 Bacterial urine culture NG NRG Arterial blood gas measurement - 9 20:50 Blood pCO2 30 mm[Hg] 35-45 Blood pO2 80 mm[Hg] 79-93 Arterial blood bicarbonate measurement (moles/volume) 16 mmol/L 23-27 Arterial blood base excess by calculation -8.7 mmo l/L -2.5-2.5 Arterial blood oxygen saturation measurement 95 % 94-100 * Inhaled oxygen flow rate 10L NRG Arterial blood pH measurement with patient temperature correction 7.35 7.37-7.43 Arterial blood carbon dioxide, total measurement (mole s/volume) 16.8 mmol/L 21.0-31.0 Body site RIGHT RADIAL NRG Assessment of wrist artery patency prior to arterial p uncture YES-POS NRG Setting of ventilation mode NO NR G Measurement of body temperature 37.0 NRG Serum or plasma lactate measurement (mol es/volume) - 02/24/19 21:58 Serum or plasma lactate measurement (moles/volume) 3.85 mmol/L 0.50-2.00 Methicillin resistant Staphylococcus aur eus (MRSA) screening culture - 02/24/19 23:58 Methicillin resistant Staphylococcus aureus (MRSA) scr eening culture NEG NRG Arterial blood gas measurement - 9 01:25 Blood pCO2 27 mm[Hg] 35-45 Blood pO2 68 mm[Hg] 79-93 Arterial blood bicarbonate measurement (moles/volume) 16 mmol/L 23-27 Arterial blood base excess by calculation -7.6 mmo l/L -2.5-2.5 Arterial blood oxygen saturation measurement 92 % 94-100 * Inhaled oxygen flow rate 100% NRG Arterial blood pH measurement with patient temperature correction 7.40 7.37-7.43 Arterial blood carbon dioxide, total measurement (mole s/volume) 17.1 mmol/L 21.0-31.0 Body site LEFT RADIAL NRG Assessment of wrist artery patency prior to arterial p uncture YES-POS NRG Setting of ventilation mode YES NR G Measurement of body temperature 37.2 NRG Complete blood count (CBC) with automate d white blood cell (WBC) differential - 02/25/19 04:40 Blood leukocytes automated count (number/volume) 6.2 10*3/uL 4.3-11.0 Blood erythrocytes automated count (number/volume) 3.92 10*6/uL 4.35-5.85 Venous blood hemoglobin measurement (mass/volume) 12.9 g/dL 11.5-16.0 Blood hematocrit (volume fraction) 38 % 35-52 Automated erythrocyte mean corpuscular volume 96 [ foz_us] 80-99 Automated erythrocyte mean corpuscular h emoglobin (mass per erythrocyte) 33 pg 25-34 Automated erythrocyte mean corpuscular h emoglobin concentration measurement (mass/volume) 34 g/dL 32-36 Automated erythrocyte distribution width ratio 13. 5 % 10.0- 14.5 Automated blood platelet count (count/volume) 161 10*3/uL 130-400 Automated blood platelet mean volume measurement 9.9 [foz_us] 7.4-10.4 Automated blood neutrophils/100 leukocytes 69 % 42-75 Automated blood lymphocytes/100 leukocytes 10 % 12-44 Blood monocytes/100 leukocytes 21 % 0-12 Automated blood eosinophils/100 leukocytes 0 % 0-10 Automated blood basophils/100 leukocytes 0 % 0-10 Blood neutrophils automated count (number/volume) 4.3 10*3 1.8-7.8 Blood lymphocytes automated count (number/volume) 0.6 10*3 1.0-4.0 Blood monocytes automated count (number/volume) 1. 3 10*3 0.0-1.0 Automated eosinophil count 0.0 10*3/uL 0 .0-0.3 Automated blood basophil count (count/volume) 0.0 10*3/uL 0.0-0.1 Arterial blood gas measurement - 9 04:40 Blood pCO2 42 mm[Hg] 35-45 Blood pO2 91 mm[Hg] 79-93 Arterial blood bicarbonate measurement (moles/volume) 19 mmol/L 23-27 Arterial blood base excess by calculation -6.4 mmo l/L -2.5-2.5 Arterial blood oxygen saturation measurement 96 % 94-100 * Inhaled oxygen flow rate 80% NRG Arterial blood pH measurement with patient temperature correction 7.28 7.37-7.43 Arterial blood carbon dioxide, total measurement (mole s/volume) 20.8 mmol/L 21.0-31.0 Body site LEFT ARTLINE NRG Assessment of wrist artery patency prior to arterial p uncture YES-POS NRG Setting of ventilation mode YES NR G Measurement of body temperature 36.2 NRG Whole blood basic metabolic panel - 02/06 05/26 04:40 Serum or plasma sodium measurement (moles/volume) 137 mmol/L 135-145 Serum or plasma potassium measurement (moles/volume) 4.3 mmol/L 3.6-5.0 Serum or plasma chloride measurement (moles/volume) 109 mmol/L 98-107 Carbon dioxide 18 mmol/L 21-32 Serum or plasma anion gap determination (moles/volume) 10 mmol/L 5-14 Serum or plasma urea nitrogen measurement (mass/volume ) 49 mg/dL 7-18 Serum or plasma creatinine measurement (mass/volume) 1.43 mg/dL 0.60-1.30 Serum or plasma urea nitrogen/creatinine mass ratio 34 NRG Serum or plasma creatinine measurement w ith calculation of estimated glomerular filtration rate 36 NRG Serum or plasma glucose measurement (mass/volume) 144 mg/dL 70-105 Serum or plasma calcium measurement (mass/volume) 6.5 mg/dL 8.5-10.1 Serum or plasma phosphate measurement (m ass/volume) - 02/25/19 04:40 Serum or plasma phosphate measurement (mass/volume) 3.3 mg/dL 2.3-4.7 Magnesium - 02/25/19 04:40 Magnesium 1.5 mg/dL 1.6-2.4 Blood lactic acid measurement (moles/vol ume) - 02/25/19 05:40 Blood lactic acid measurement (moles/volume) 2.56 mmol/L 0.50-2.00 Sputum Gram stain - 02/25/19 06:40 Sputum Gram stain No bacteria seen NRG Bacterial sputum culture - 02/25/19 06:4 0 Bacterial sputum culture NG NRG Serum or plasma lactate measurement (mol es/volume) - 02/25/19 07:11 Serum or plasma lactate measurement (moles/volume) 2.36 mmol/L 0.50-2.00 Capillary blood glucose measurement by g lucometer (mass/volume) - 02/25/19 12:43 Capillary blood glucose measurement by glucometer (mas s/volume) 136 mg/dL 70-110 Arterial blood gas measurement - 9 16:11 Blood pCO2 32 mm[Hg] 35-45 Blood pO2 62 mm[Hg] 79-93 Arterial blood bicarbonate measurement (moles/volume) 18 mmol/L 23-27 Arterial blood base excess by calculation -6.0 mmo l/L -2.5-2.5 Arterial blood oxygen saturation measurement 89 % 94-100 * Inhaled oxygen flow rate 40 NRG Arterial blood pH measurement with patient temperature correction 7.38 7.37-7.43 Arterial blood carbon dioxide, total measurement (mole s/volume) 19.3 mmol/L 21.0-31.0 Body site RT RADIAL NRG Assessment of wrist artery patency prior to arterial p uncture P NRG Setting of ventilation mode YES NR G Measurement of body temperature 36.6 NRG Capillary blood glucose measurement by g lucometer (mass/volume) - 02/25/19 16:25 Capillary blood glucose measurement by glucometer (mas s/volume) 174 mg/dL 70-110 Complete blood count (CBC) with automate d white blood cell (WBC) differential - 02/26/19 00:15 Blood leukocytes automated count (number/volume) 8.3 10*3/uL 4.3-11.0 Blood erythrocytes automated count (number/volume) 3.07 10*6/uL 4.35-5.85 Venous blood hemoglobin measurement (mass/volume) 10.1 g/dL 11.5-16.0 Blood hematocrit (volume fraction) 30 % 35-52 Automated erythrocyte mean corpuscular volume 97 [ foz_us] 80-99 Automated erythrocyte mean corpuscular h emoglobin (mass per erythrocyte) 33 pg 25-34 Automated erythrocyte mean corpuscular h emoglobin concentration measurement (mass/volume) 34 g/dL 32-36 Automated erythrocyte distribution width ratio 14. 0 % 10.0- 14.5 Automated blood platelet count (count/volume) 162 10*3/uL 130-400 Automated blood platelet mean volume measurement 9.8 [foz_us] 7.4-10.4 Automated blood neutrophils/100 leukocytes 70 % 42-75 Automated blood lymphocytes/100 leukocytes 6 % 12-44 Blood monocytes/100 leukocytes 23 % 0-12 Automated blood eosinophils/100 leukocytes 0 % 0-10 Automated blood basophils/100 leukocytes 0 % 0-10 Blood neutrophils automated count (number/volume) 5.9 10*3 1.8-7.8 Blood lymphocytes automated count (number/volume) 0.5 10*3 1.0-4.0 Blood monocytes automated count (number/volume) 1. 9 10*3 0.0-1.0 Automated eosinophil count 0.0 10*3/uL 0 .0-0.3 Automated blood basophil count (count/volume) 0.0 10*3/uL 0.0-0.1 Comprehensive metabolic panel - 02/26/19 00:15 Serum or plasma sodium measurement (moles/volume) 136 mmol/L 135-145 Serum or plasma potassium measurement (moles/volume) 4.1 mmol/L 3.6-5.0 Serum or plasma chloride measurement (moles/volume) 109 mmol/L 98-107 Carbon dioxide 16 mmol/L 21-32 Serum or plasma anion gap determination (moles/volume) 11 mmol/L 5-14 Serum or plasma urea nitrogen measurement (mass/volume ) 57 mg/dL 7-18 Serum or plasma creatinine measurement (mass/volume) 1.74 mg/dL 0.60-1.30 Serum or plasma urea nitrogen/creatinine mass ratio 33 NRG Serum or plasma creatinine measurement w ith calculation of estimated glomerular filtration rate 29 NRG Serum or plasma glucose measurement (mass/volume) 208 mg/dL 70-105 Serum or plasma calcium measurement (mass/volume) 6.5 mg/dL 8.5-10.1 Serum or plasma total bilirubin measurement (mass/volu me) 0.5 mg/dL 0.1-1.0 Serum or plasma alkaline phosphatase lilliana surement (enzymatic activity/volume) 21 U/L 40-136 Serum or plasma aspartate aminotransfera se measurement (enzymatic activity/volume) 19 U/L 5-34 Serum or plasma alanine aminotransferase measurement (enzymatic activity/volume) 12 U/L 0-55 Serum or plasma protein measurement (mass/volume) 3.6 g/dL 6.4-8.2 Serum or plasma albumin measurement (mass/volume) 1.7 g/dL 3.2-4.5 CALCIUM CORRECTED 8.3 mg/dL 8.5-10.1 Blood lactic acid measurement (moles/vol ume) - 02/26/19 00:15 Blood lactic acid measurement (moles/volume) 3.19 mmol/L 0.50-2.00 Serum or plasma lactate measurement (mol es/volume) - 02/26/19 02:30 Serum or plasma lactate measurement (moles/volume) 2.98 mmol/L 0.50-2.00 Complete blood count (CBC) with automate d white blood cell (WBC) differential - 02/26/19 03:15 Blood leukocytes automated count (number/volume) 10.1 10*3/uL 4.3-11.0 Blood erythrocytes automated count (number/volume) 3.11 10*6/uL 4.35-5.85 Venous blood hemoglobin measurement (mass/volume) 10.0 g/dL 11.5-16.0 Blood hematocrit (volume fraction) 30 % 35-52 Automated erythrocyte mean corpuscular volume 97 [ foz_us] 80-99 Automated erythrocyte mean corpuscular h emoglobin (mass per erythrocyte) 32 pg 25-34 Automated erythrocyte mean corpuscular h emoglobin concentration measurement (mass/volume) 33 g/dL 32-36 Automated erythrocyte distribution width ratio 13. 9 % 10.0- 14.5 Automated blood platelet count (count/volume) 171 10*3/uL 130-400 Automated blood platelet mean volume measurement 9.8 [foz_us] 7.4-10.4 Automated blood neutrophils/100 leukocytes 72 % 42-75 Automated blood lymphocytes/100 leukocytes 7 % 12-44 Blood monocytes/100 leukocytes 21 % 0-12 Automated blood eosinophils/100 leukocytes 0 % 0-10 Automated blood basophils/100 leukocytes 0 % 0-10 Blood neutrophils automated count (number/volume) 7.3 10*3 1.8-7.8 Blood lymphocytes automated count (number/volume) 0.7 10*3 1.0-4.0 Blood monocytes automated count (number/volume) 2. 1 10*3 0.0-1.0 Automated eosinophil count 0.0 10*3/uL 0 .0-0.3 Automated blood basophil count (count/volume) 0.0 10*3/uL 0.0-0.1 Whole blood basic metabolic panel - 02/06 06/26 03:15 Serum or plasma sodium measurement (moles/volume) 137 mmol/L 135-145 Serum or plasma potassium measurement (moles/volume) 4.1 mmol/L 3.6-5.0 Serum or plasma chloride measurement (moles/volume) 109 mmol/L 98-107 Carbon dioxide 16 mmol/L 21-32 Serum or plasma anion gap determination (moles/volume) 12 mmol/L 5-14 Serum or plasma urea nitrogen measurement (mass/volume ) 56 mg/dL 7-18 Serum or plasma creatinine measurement (mass/volume) 1.62 mg/dL 0.60-1.30 Serum or plasma urea nitrogen/creatinine mass ratio 35 NRG Serum or plasma creatinine measurement w ith calculation of estimated glomerular filtration rate 31 NRG Serum or plasma glucose measurement (mass/volume) 187 mg/dL 70-105 Serum or plasma calcium measurement (mass/volume) 6.5 mg/dL 8.5-10.1 Serum or plasma phosphate measurement (m ass/volume) - 02/26/19 03:15 Serum or plasma phosphate measurement (mass/volume) 2.8 mg/dL 2.3-4.7 Magnesium - 02/26/19 03:15 Magnesium 2.0 mg/dL 1.6-2.4 Arterial blood gas measurement - 9 04:55 Blood pCO2 33 mm[Hg] 35-45 Blood pO2 72 mm[Hg] 79-93 Arterial blood bicarbonate measurement (moles/volume) 19 mmol/L 23-27 Arterial blood base excess by calculation -5.4 mmo l/L -2.5-2.5 Arterial blood oxygen saturation measurement 93 % 94-100 * Inhaled oxygen flow rate 40% NRG Arterial blood pH measurement with patient temperature correction 7.38 7.37-7.43 Arterial blood carbon dioxide, total measurement (mole s/volume) 19.8 mmol/L 21.0-31.0 Body site LEFT ART LINE NRG Assessment of wrist artery patency prior to arterial p uncture ART LINE NRG Setting of ventilation mode YES NR G Measurement of body temperature 37.2 NRG Capillary blood glucose measurement by g lucometer (mass/volume) - 02/26/19 11:07 Capillary blood glucose measurement by glucometer (mas s/volume) 129 mg/dL 70-110 Capillary blood glucose measurement by g lucometer (mass/volume) - 02/26/19 17:53 Capillary blood glucose measurement by glucometer (mas s/volume) 116 mg/dL 70-110 Vancomycin trough - 02/26/19 17:55 Vancomycin trough 7.3 ug/mL 10.0-20.0 Blood lactic acid measurement (moles/vol ume) - 02/26/19 23:50 Blood lactic acid measurement (moles/volume) 1.64 mmol/L 0.50-2.00 Capillary blood glucose measurement by g lucometer (mass/volume) - 02/26/19 23:57 Capillary blood glucose measurement by glucometer (mas s/volume) 163 mg/dL 70-110 Complete blood count (CBC) with automate d white blood cell (WBC) differential - 02/27/19 03:35 Blood leukocytes automated count (number/volume) 13.7 10*3/uL 4.3-11.0 Blood erythrocytes automated count (number/volume) 3.07 10*6/uL 4.35-5.85 Venous blood hemoglobin measurement (mass/volume) 10.1 g/dL 11.5-16.0 Blood hematocrit (volume fraction) 30 % 35-52 Automated erythrocyte mean corpuscular volume 97 [ foz_us] 80-99 Automated erythrocyte mean corpuscular h emoglobin (mass per erythrocyte) 33 pg 25-34 Automated erythrocyte mean corpuscular h emoglobin concentration measurement (mass/volume) 34 g/dL 32-36 Automated erythrocyte distribution width ratio 13. 7 % 10.0- 14.5 Automated blood platelet count (count/volume) 139 10*3/uL 130-400 Automated blood platelet mean volume measurement 9.3 [foz_us] 7.4-10.4 Automated blood neutrophils/100 leukocytes 77 % 42-75 Automated blood lymphocytes/100 leukocytes 5 % 12-44 Blood monocytes/100 leukocytes 16 % 0-12 Automated blood eosinophils/100 leukocytes 2 % 0-10 Automated blood basophils/100 leukocytes 0 % 0-10 Blood neutrophils automated count (number/volume) 10.5 10*3 1.8-7.8 Blood lymphocytes automated count (number/volume) 0.7 10*3 1.0-4.0 Blood monocytes automated count (number/volume) 2. 2 10*3 0.0-1.0 Automated eosinophil count 0.3 10*3/uL 0 .0-0.3 Automated blood basophil count (count/volume) 0.0 10*3/uL 0.0-0.1 Arterial blood gas measurement - 9 03:35 Blood pCO2 33 mm[Hg] 35-45 Blood pO2 67 mm[Hg] 79-93 Arterial blood bicarbonate measurement (moles/volume) 19 mmol/L 23-27 Arterial blood base excess by calculation -4.7 mmo l/L -2.5-2.5 Arterial blood oxygen saturation measurement 90 % 94-100 * Inhaled oxygen flow rate 35% NRG Arterial blood pH measurement with patient temperature correction 7.39 7.37-7.43 Arterial blood carbon dioxide, total measurement (mole s/volume) 20.3 mmol/L 21.0-31.0 Body site LEFT RADIAL NRG Assessment of wrist artery patency prior to arterial p uncture ART LINE NRG Setting of ventilation mode YES NR G Measurement of body temperature 37.2 NRG Whole blood basic metabolic panel - 02/06 07/24 03:35 Serum or plasma sodium measurement (moles/volume) 138 mmol/L 135-145 Serum or plasma potassium measurement (moles/volume) 4.3 mmol/L 3.6-5.0 Serum or plasma chloride measurement (moles/volume) 112 mmol/L 98-107 Carbon dioxide 18 mmol/L 21-32 Serum or plasma anion gap determination (moles/volume) 8 mmol/L 5-14 Serum or plasma urea nitrogen measurement (mass/volume ) 50 mg/dL 7-18 Serum or plasma creatinine measurement (mass/volume) 1.31 mg/dL 0.60-1.30 Serum or plasma urea nitrogen/creatinine mass ratio 38 NRG Serum or plasma creatinine measurement w ith calculation of estimated glomerular filtration rate 40 NRG Serum or plasma glucose measurement (mass/volume) 135 mg/dL 70-105 Serum or plasma calcium measurement (mass/volume) 6.9 mg/dL 8.5-10.1 Serum or plasma phosphate measurement (m ass/volume) - 02/27/19 03:35 Serum or plasma phosphate measurement (mass/volume) 2.7 mg/dL 2.3-4.7 Magnesium - 02/27/19 03:35 Magnesium 2.0 mg/dL 1.6-2.4 [id number] - 02/27/19 03:35 [id number] 0.84 ng/mL 0.80-2.00 IONIZED CALCIUM (SEND OFF) - 02/27/19 03 :35 Blood ionized calcium measurement (mass/volume) 1. 04 % 1.16- 1.32 Venous blood ionized calcium measurement adjusted to pH 7.4 (moles/volume) 1.06 % 1.16-1.32 pH measurement 7.42 NRG Capillary blood glucose measurement by g lucometer (mass/volume) - 02/27/19 11:36 Capillary blood glucose measurement by glucometer (mas s/volume) 120 mg/dL 70-110 Capillary blood glucose measurement by g lucometer (mass/volume) - 10/23/19 17:49 Capillary blood glucose measurement by glucometer (mas s/volume) 126 mg/dL 70-110 Capillary blood glucose measurement by g lucometer (mass/volume) - 02/28/19 00:43 Capillary blood glucose measurement by glucometer (mas s/volume) 103 mg/dL 70-110 Arterial blood gas measurement - 9 03:47 Blood pCO2 30 mm[Hg] 35-45 Blood pO2 57 mm[Hg] 79-93 Arterial blood bicarbonate measurement (moles/volume) 20 mmol/L 23-27 Arterial blood base excess by calculation -3.6 mmo l/L -2.5-2.5 Arterial blood oxygen saturation measurement 90 % 94-100 * Inhaled oxygen flow rate 25 NRG Arterial blood pH measurement with patient temperature correction 7.43 7.37-7.43 Arterial blood carbon dioxide, total measurement (mole s/volume) 21.0 mmol/L 21.0-31.0 Body site LT RAD ARTLINE NRG Assessment of wrist artery patency prior to arterial p uncture ART LINE NRG Setting of ventilation mode YES NR G Measurement of body temperature 36.8 NRG Complete blood count (CBC) with automate d white blood cell (WBC) differential - 02/28/19 03:47 Blood leukocytes automated count (number/volume) 16.3 10*3/uL 4.3-11.0 Blood erythrocytes automated count (number/volume) 2.96 10*6/uL 4.35-5.85 Venous blood hemoglobin measurement (mass/volume) 9.5 g/dL 11.5-16.0 Blood hematocrit (volume fraction) 29 % 35-52 Automated erythrocyte mean corpuscular volume 97 [ foz_us] 80-99 Automated erythrocyte mean corpuscular h emoglobin (mass per erythrocyte) 32 pg 25-34 Automated erythrocyte mean corpuscular h emoglobin concentration measurement (mass/volume) 33 g/dL 32-36 Automated erythrocyte distribution width ratio 13. 7 % 10.0- 14.5 Automated blood platelet count (count/volume) 131 10*3/uL 130-400 Automated blood platelet mean volume measurement 9.5 [foz_us] 7.4-10.4 Automated blood neutrophils/100 leukocytes 89 % 42-75 Automated blood lymphocytes/100 leukocytes 4 % 12-44 Blood monocytes/100 leukocytes 6 % 0-12 Automated blood eosinophils/100 leukocytes 1 % 0-10 Automated blood basophils/100 leukocytes 0 % 0-10 Blood neutrophils automated count (number/volume) 14.5 10*3 1.8-7.8 Blood lymphocytes automated count (number/volume) 0.6 10*3 1.0-4.0 Blood monocytes automated count (number/volume) 1. 0 10*3 0.0-1.0 Automated eosinophil count 0.2 10*3/uL 0 .0-0.3 Automated blood basophil count (count/volume) 0.0 10*3/uL 0.0-0.1 Whole blood basic metabolic panel - 02/06 08/24 03:47 Serum or plasma sodium measurement (moles/volume) 141 mmol/L 135-145 Serum or plasma potassium measurement (moles/volume) 4.5 mmol/L 3.6-5.0 Serum or plasma chloride measurement (moles/volume) 114 mmol/L 98-107 Carbon dioxide 17 mmol/L 21-32 Serum or plasma anion gap determination (moles/volume) 10 mmol/L 5-14 Serum or plasma urea nitrogen measurement (mass/volume ) 44 mg/dL 7-18 Serum or plasma creatinine measurement (mass/volume) 1.12 mg/dL 0.60-1.30 Serum or plasma urea nitrogen/creatinine mass ratio 39 NRG Serum or plasma creatinine measurement w ith calculation of estimated glomerular filtration rate 48 NRG Serum or plasma glucose measurement (mass/volume) 120 mg/dL 70-105 Serum or plasma calcium measurement (mass/volume) 7.1 mg/dL 8.5-10.1 Serum or plasma phosphate measurement (m ass/volume) - 02/28/19 03:47 Serum or plasma phosphate measurement (mass/volume) 2.9 mg/dL 2.3-4.7 Magnesium - 02/28/19 03:47 Magnesium 2.0 mg/dL 1.6-2.4 Manual absolute plasma cell count - 02/06 08/24 03:47 Blood monocytes/100 leukocytes 4 % NRG Manual blood segmented neutrophils/100 leukocytes 71 % NRG Blood band neutrophils/100 leukocytes 20 % NRG Manual blood lymphocytes/100 leukocytes 4 % NRG Manual eosinophils/100 leukocytes in nose 1 % NRG Blood polychromasia detection by light microscopy SLIGHT NRG Blood toxic granules detection by light microscopy 3+ NRG Capillary blood glucose measurement by g lucometer (mass/volume) - 02/28/19 11:19 Capillary blood glucose measurement by glucometer (mas s/volume) 115 mg/dL 70-110 Arterial blood gas measurement - 9 12:10 Blood pCO2 37 mm[Hg] 35-45 Blood pO2 64 mm[Hg] 79-93 Arterial blood bicarbonate measurement (moles/volume) 20 mmol/L 23-27 Arterial blood base excess by calculation -4.1 mmo l/L -2.5-2.5 Arterial blood oxygen saturation measurement 86 % 94-100 * Inhaled oxygen flow rate 25% NRG Arterial blood pH measurement with patient temperature correction 7.36 7.37-7.43 Arterial blood carbon dioxide, total measurement (mole s/volume) 21.2 mmol/L 21.0-31.0 Body site L RADIAL NRG Assessment of wrist artery patency prior to arterial p uncture YES-POS NRG Setting of ventilation mode YES NR G Measurement of body temperature 38.1 NRG Capillary blood glucose measurement by g lucometer (mass/volume) - 02/28/19 17:21 Capillary blood glucose measurement by glucometer (mas s/volume) 112 mg/dL 70-110 Capillary blood glucose measurement by g lucometer (mass/volume) - 02/28/19 23:50 Capillary blood glucose measurement by glucometer (mas s/volume) 106 mg/dL 70-110 Complete blood count (CBC) with automate d white blood cell (WBC) differential - 03/01/19 03:10 Blood leukocytes automated count (number/volume) 15.6 10*3/uL 4.3-11.0 Blood erythrocytes automated count (number/volume) 2.99 10*6/uL 4.35-5.85 Venous blood hemoglobin measurement (mass/volume) 9.7 g/dL 11.5-16.0 Blood hematocrit (volume fraction) 29 % 35-52 Automated erythrocyte mean corpuscular volume 97 [ foz_us] 80-99 Automated erythrocyte mean corpuscular h emoglobin (mass per erythrocyte) 32 pg 25-34 Automated erythrocyte mean corpuscular h emoglobin concentration measurement (mass/volume) 33 g/dL 32-36 Automated erythrocyte distribution width ratio 13. 5 % 10.0- 14.5 Automated blood platelet count (count/volume) 119 10*3/uL 130-400 Automated blood platelet mean volume measurement 9.4 [foz_us] 7.4-10.4 Automated blood neutrophils/100 leukocytes 91 % 42-75 Automated blood lymphocytes/100 leukocytes 5 % 12-44 Blood monocytes/100 leukocytes 3 % 0-12 Automated blood eosinophils/100 leukocytes 1 % 0-10 Automated blood basophils/100 leukocytes 0 % 0-10 Blood neutrophils automated count (number/volume) 14.1 10*3 1.8-7.8 Blood lymphocytes automated count (number/volume) 0.8 10*3 1.0-4.0 Blood monocytes automated count (number/volume) 0. 5 10*3 0.0-1.0 Automated eosinophil count 0.1 10*3/uL 0 .0-0.3 Automated blood basophil count (count/volume) 0.1 10*3/uL 0.0-0.1 Arterial blood gas measurement - 9 03:10 Blood pCO2 31 mm[Hg] 35-45 Blood pO2 57 mm[Hg] 79-93 Arterial blood bicarbonate measurement (moles/volume) 20 mmol/L 23-27 Arterial blood base excess by calculation -3.6 mmo l/L -2.5-2.5 Arterial blood oxygen saturation measurement 91 % 94-100 * Inhaled oxygen flow rate 25 NRG Arterial blood pH measurement with patient temperature correction 7.43 7.37-7.43 Arterial blood carbon dioxide, total measurement (mole s/volume) 21.2 mmol/L 21.0-31.0 Body site LT RADIAL ARTLINE NRG Assessment of wrist artery patency prior to arterial p uncture ART LINE NRG Setting of ventilation mode YES NR G Measurement of body temperature 36.3 NRG Whole blood basic metabolic panel - 02/06 09/23 03:10 Serum or plasma sodium measurement (moles/volume) 142 mmol/L 135-145 Serum or plasma potassium measurement (moles/volume) 4.8 mmol/L 3.6-5.0 Serum or plasma chloride measurement (moles/volume) 116 mmol/L 98-107 Carbon dioxide 18 mmol/L 21-32 Serum or plasma anion gap determination (moles/volume) 8 mmol/L 5-14 Serum or plasma urea nitrogen measurement (mass/volume ) 44 mg/dL 7-18 Serum or plasma creatinine measurement (mass/volume) 1.06 mg/dL 0.60-1.30 Serum or plasma urea nitrogen/creatinine mass ratio 42 NRG Serum or plasma creatinine measurement w ith calculation of estimated glomerular filtration rate 51 NRG Serum or plasma glucose measurement (mass/volume) 130 mg/dL 70-105 Serum or plasma calcium measurement (mass/volume) 7.4 mg/dL 8.5-10.1 Serum or plasma phosphate measurement (m ass/volume) - 03/01/19 03:10 Serum or plasma phosphate measurement (mass/volume) 3.3 mg/dL 2.3-4.7 Magnesium - 03/01/19 03:10 Magnesium 2.0 mg/dL 1.6-2.4 Arterial blood gas measurement - 9 04:49 Blood pCO2 32 mm[Hg] 35-45 Blood pO2 61 mm[Hg] 79-93 Arterial blood bicarbonate measurement (moles/volume) 20 mmol/L 23-27 Arterial blood base excess by calculation -3.8 mmo l/L -2.5-2.5 Arterial blood oxygen saturation measurement 89 % 94-100 * Inhaled oxygen flow rate 25 NRG Arterial blood pH measurement with patient temperature correction 7.41 7.37-7.43 Arterial blood carbon dioxide, total measurement (mole s/volume) 21.1 mmol/L 21.0-31.0 Body site LT RAD ARTLINE NRG Assessment of wrist artery patency prior to arterial p uncture ART LINE NRG Setting of ventilation mode YES NR G Measurement of body temperature 36.6 NRG Arterial blood gas measurement - 9 05:20 Blood pCO2 32 mm[Hg] 35-45 Blood pO2 60 mm[Hg] 79-93 Arterial blood bicarbonate measurement (moles/volume) 20 mmol/L 23-27 Arterial blood base excess by calculation -3.7 mmo l/L -2.5-2.5 Arterial blood oxygen saturation measurement 88 % 94-100 * Inhaled oxygen flow rate 30 NRG Arterial blood pH measurement with patient temperature correction 7.42 7.37-7.43 Arterial blood carbon dioxide, total measurement (mole s/volume) 21.1 mmol/L 21.0-31.0 Body site RT RAD NRG Assessment of wrist artery patency prior to arterial p uncture YES-POS NRG Setting of ventilation mode YES NR G Measurement of body temperature 36.6 NRG Capillary blood glucose measurement by g lucometer (mass/volume) - 03/01/19 12:06 Capillary blood glucose measurement by glucometer (mas s/volume) 115 mg/dL 70-110 Capillary blood glucose measurement by g lucometer (mass/volume) - 03/01/19 17:58 Capillary blood glucose measurement by glucometer (mas s/volume) 147 mg/dL 70-110 Complete blood count (CBC) with automate d white blood cell (WBC) differential - 03/02/19 03:15 Blood leukocytes automated count (number/volume) 18.0 10*3/uL 4.3-11.0 Blood erythrocytes automated count (number/volume) 3.43 10*6/uL 4.35-5.85 Venous blood hemoglobin measurement (mass/volume) 11.0 g/dL 11.5-16.0 Blood hematocrit (volume fraction) 33 % 35-52 Automated erythrocyte mean corpuscular volume 96 [ foz_us] 80-99 Automated erythrocyte mean corpuscular h emoglobin (mass per erythrocyte) 32 pg 25-34 Automated erythrocyte mean corpuscular h emoglobin concentration measurement (mass/volume) 33 g/dL 32-36 Automated erythrocyte distribution width ratio 13. 8 % 10.0- 14.5 Automated blood platelet count (count/volume) 181 10*3/uL 130-400 Automated blood platelet mean volume measurement 9.5 [foz_us] 7.4-10.4 Automated blood neutrophils/100 leukocytes 89 % 42-75 Automated blood lymphocytes/100 leukocytes 7 % 12-44 Blood monocytes/100 leukocytes 4 % 0-12 Automated blood eosinophils/100 leukocytes 0 % 0-10 Automated blood basophils/100 leukocytes 1 % 0-10 Blood neutrophils automated count (number/volume) 16.0 10*3 1.8-7.8 Blood lymphocytes automated count (number/volume) 1.3 10*3 1.0-4.0 Blood monocytes automated count (number/volume) 0. 7 10*3 0.0-1.0 Automated eosinophil count 0.0 10*3/uL 0 .0-0.3 Automated blood basophil count (count/volume) 0.1 10*3/uL 0.0-0.1 Whole blood basic metabolic panel - 02/06 10/24 03:15 Serum or plasma sodium measurement (moles/volume) 147 mmol/L 135-145 Serum or plasma potassium measurement (moles/volume) 4.3 mmol/L 3.6-5.0 Serum or plasma chloride measurement (moles/volume) 115 mmol/L 98-107 Carbon dioxide 19 mmol/L 21-32 Serum or plasma anion gap determination (moles/volume) 13 mmol/L 5-14 Serum or plasma urea nitrogen measurement (mass/volume ) 49 mg/dL 7-18 Serum or plasma creatinine measurement (mass/volume) 1.05 mg/dL 0.60-1.30 Serum or plasma urea nitrogen/creatinine mass ratio 47 NRG Serum or plasma creatinine measurement w ith calculation of estimated glomerular filtration rate 51 NRG Serum or plasma glucose measurement (mass/volume) 163 mg/dL 70-105 Serum or plasma calcium measurement (mass/volume) 8.0 mg/dL 8.5-10.1 Serum or plasma phosphate measurement (m ass/volume) - 03/02/19 03:15 Serum or plasma phosphate measurement (mass/volume) 3.8 mg/dL 2.3-4.7 Magnesium - 03/02/19 03:15 Magnesium 1.8 mg/dL 1.6-2.4 Manual absolute plasma cell count - 02/06 10/24 03:15 Blood monocytes/100 leukocytes 6 % NRG Manual blood segmented neutrophils/100 leukocytes 80 % NRG Blood band neutrophils/100 leukocytes 9 % NRG Manual blood lymphocytes/100 leukocytes 4 % NRG Blood polychromasia detection by light microscopy SLIGHT NRG Blood toxic granules detection by light microscopy 1+ NRG Blood dohle body detection by light microscopy SLI GHT NRG Blood poikilocytosis detection by light microscopy SLIGHT NRG Capillary blood glucose measurement by g lucometer (mass/volume) - 03/02/19 11:35 Capillary blood glucose measurement by glucometer (mas s/volume) 149 mg/dL 70-110 Complete urinalysis with reflex to cultu re - 03/02/19 12:50 Urine color determination YELLOW NRG Urine clarity determination SL CLOUDY N RG Urine pH measurement by test strip 5 5-9 Specific gravity of urine by test strip 1.015 1.016-1.022 Urine protein assay by test strip, semi-quantitative 1+ NEGATIVE Urine glucose detection by automated test strip NE GATIVE NEGATIVE Erythrocytes detection in urine sediment by light micr oscopy 5+ NEGATIVE Urine ketones detection by automated test strip NE GATIVE NEGATIVE Urine nitrite detection by test strip NEGATIVE NEGATIVE Urine total bilirubin detection by test strip NEGA TIVE NEGATIVE Urine urobilinogen measurement by automated test strip (mass/volume) NORMAL NORMAL Urine leukocyte esterase detection by dipstick NEG ATIVE NEGATIVE Automated urine sediment erythrocyte cou nt by microscopy (number/high power field) TNTC NRG Automated urine sediment leukocyte count by microscopy (number/high power field) [HPF] NRG Bacteria detection in urine sediment by light microsco py MODERATE NRG Crystals detection in urine sediment by light microsco py NONE NRG Casts detection in urine sediment by light microscopy NONE NRG Mucus detection in urine sediment by light microscopy NEGATIVE NRG Complete urinalysis with reflex to culture NO NRG Capillary blood glucose measurement by g lucometer (mass/volume) - 03/02/19 16:46 Capillary blood glucose measurement by glucometer (mas s/volume) 128 mg/dL 70-110 Arterial blood gas measurement - 9 19:30 Blood pCO2 29 mm[Hg] 35-45 Blood pO2 69 mm[Hg] 79-93 Arterial blood bicarbonate measurement (moles/volume) 24 mmol/L 23-27 Arterial blood base excess by calculation 1.0 mmol /L -2.5-2.5 Arterial blood oxygen saturation measurement 93 % 94-100 * Inhaled oxygen flow rate 25L/80% NRG Arterial blood pH measurement with patient temperature correction 7.52 7.37-7.43 Arterial blood carbon dioxide, total measurement (mole s/volume) 24.6 mmol/L 21.0-31.0 Body site L RAD NRG Assessment of wrist artery patency prior to arterial p uncture ART LINE NRG Setting of ventilation mode NO NR G Measurement of body temperature 36.9 NRG Capillary blood glucose measurement by g lucometer (mass/volume) - 03/02/19 20:29 Capillary blood glucose measurement by glucometer (mas s/volume) 146 mg/dL 70-110 Complete blood count (CBC) with automate d white blood cell (WBC) differential - 03/03/19 03:00 Blood leukocytes automated count (number/volume) 9.9 10*3/uL 4.3-11.0 Blood erythrocytes automated count (number/volume) 3.24 10*6/uL 4.35-5.85 Venous blood hemoglobin measurement (mass/volume) 10.4 g/dL 11.5-16.0 Blood hematocrit (volume fraction) 32 % 35-52 Automated erythrocyte mean corpuscular volume 98 [ foz_us] 80-99 Automated erythrocyte mean corpuscular h emoglobin (mass per erythrocyte) 32 pg 25-34 Automated erythrocyte mean corpuscular h emoglobin concentration measurement (mass/volume) 33 g/dL 32-36 Automated erythrocyte distribution width ratio 13. 7 % 10.0- 14.5 Automated blood platelet count (count/volume) 216 10*3/uL 130-400 Automated blood platelet mean volume measurement 9.9 [foz_us] 7.4-10.4 Automated blood neutrophils/100 leukocytes 82 % 42-75 Automated blood lymphocytes/100 leukocytes 10 % 12-44 Blood monocytes/100 leukocytes 7 % 0-12 Automated blood eosinophils/100 leukocytes 0 % 0-10 Automated blood basophils/100 leukocytes 0 % 0-10 Blood neutrophils automated count (number/volume) 8.1 10*3 1.8-7.8 Blood lymphocytes automated count (number/volume) 1.0 10*3 1.0-4.0 Blood monocytes automated count (number/volume) 0. 7 10*3 0.0-1.0 Automated eosinophil count 0.0 10*3/uL 0 .0-0.3 Automated blood basophil count (count/volume) 0.0 10*3/uL 0.0-0.1 Whole blood basic metabolic panel - 02/06 11/23 03:00 Serum or plasma sodium measurement (moles/volume) 151 mmol/L 135-145 Serum or plasma potassium measurement (moles/volume) 3.6 mmol/L 3.6-5.0 Serum or plasma chloride measurement (moles/volume) 115 mmol/L 98-107 Carbon dioxide 23 mmol/L 21-32 Serum or plasma anion gap determination (moles/volume) 13 mmol/L 5-14 Serum or plasma urea nitrogen measurement (mass/volume ) 50 mg/dL 7-18 Serum or plasma creatinine measurement (mass/volume) 1.05 mg/dL 0.60-1.30 Serum or plasma urea nitrogen/creatinine mass ratio 48 NRG Serum or plasma creatinine measurement w ith calculation of estimated glomerular filtration rate 51 NRG Serum or plasma glucose measurement (mass/volume) 150 mg/dL 70-105 Serum or plasma calcium measurement (mass/volume) 7.8 mg/dL 8.5-10.1 Serum or plasma phosphate measurement (m ass/volume) - 03/03/19 03:00 Serum or plasma phosphate measurement (mass/volume) 3.6 mg/dL 2.3-4.7 Magnesium - 03/03/19 03:00 Magnesium 1.7 mg/dL 1.6-2.4 Arterial blood gas measurement - 9 03:25 Blood pCO2 30 mm[Hg] 35-45 Blood pO2 68 mm[Hg] 79-93 Arterial blood bicarbonate measurement (moles/volume) 25 mmol/L 23-27 Arterial blood base excess by calculation 2.0 mmol /L -2.5-2.5 Arterial blood oxygen saturation measurement 94 % 94-100 * Inhaled oxygen flow rate 50% NRG Arterial blood pH measurement with patient temperature correction 7.53 7.37-7.43 Arterial blood carbon dioxide, total measurement (mole s/volume) 25.8 mmol/L 21.0-31.0 Body site LT ARTLINE NRG Assessment of wrist artery patency prior to arterial p uncture ART LINE NRG Setting of ventilation mode YES NR G Measurement of body temperature 36.2 NRG [id number] - 03/03/19 06:10 [id number] 1.08 ng/mL 0.80-2.00 Capillary blood glucose measurement by g lucometer (mass/volume) - 03/03/19 11:24 Capillary blood glucose measurement by glucometer (mas s/volume) 176 mg/dL 70-110 Bacterial catheter tip culture - 9 14:20 Bacterial catheter tip culture NG NRG Capillary blood glucose measurement by g lucometer (mass/volume) - 03/03/19 15:54 Capillary blood glucose measurement by glucometer (mas s/volume) 164 mg/dL 70-110 Capillary blood glucose measurement by g lucometer (mass/volume) - 03/03/19 20:27 Capillary blood glucose measurement by glucometer (mas s/volume) 137 mg/dL 70-110 Complete blood count (CBC) with automate d white blood cell (WBC) differential - 03/04/19 02:55 Blood leukocytes automated count (number/volume) 8.7 10*3/uL 4.3-11.0 Blood erythrocytes automated count (number/volume) 3.22 10*6/uL 4.35-5.85 Venous blood hemoglobin measurement (mass/volume) 10.3 g/dL 11.5-16.0 Blood hematocrit (volume fraction) 32 % 35-52 Automated erythrocyte mean corpuscular volume 99 [ foz_us] 80-99 Automated erythrocyte mean corpuscular h emoglobin (mass per erythrocyte) 32 pg 25-34 Automated erythrocyte mean corpuscular h emoglobin concentration measurement (mass/volume) 32 g/dL 32-36 Automated erythrocyte distribution width ratio 14. 3 % 10.0- 14.5 Automated blood platelet count (count/volume) 238 10*3/uL 130-400 Automated blood platelet mean volume measurement 9.6 [foz_us] 7.4-10.4 Automated blood neutrophils/100 leukocytes 81 % 42-75 Automated blood lymphocytes/100 leukocytes 10 % 12-44 Blood monocytes/100 leukocytes 8 % 0-12 Automated blood eosinophils/100 leukocytes 1 % 0-10 Automated blood basophils/100 leukocytes 0 % 0-10 Blood neutrophils automated count (number/volume) 7.0 10*3 1.8-7.8 Blood lymphocytes automated count (number/volume) 0.9 10*3 1.0-4.0 Blood monocytes automated count (number/volume) 0. 7 10*3 0.0-1.0 Automated eosinophil count 0.1 10*3/uL 0 .0-0.3 Automated blood basophil count (count/volume) 0.0 10*3/uL 0.0-0.1 Whole blood basic metabolic panel - 02/06 12/24 02:55 Serum or plasma sodium measurement (moles/volume) 151 mmol/L 135-145 Serum or plasma potassium measurement (moles/volume) 3.5 mmol/L 3.6-5.0 Serum or plasma chloride measurement (moles/volume) 113 mmol/L 98-107 Carbon dioxide 26 mmol/L 21-32 Serum or plasma anion gap determination (moles/volume) 12 mmol/L 5-14 Serum or plasma urea nitrogen measurement (mass/volume ) 45 mg/dL 7-18 Serum or plasma creatinine measurement (mass/volume) 1.02 mg/dL 0.60-1.30 Serum or plasma urea nitrogen/creatinine mass ratio 44 NRG Serum or plasma creatinine measurement w ith calculation of estimated glomerular filtration rate 53 NRG Serum or plasma glucose measurement (mass/volume) 146 mg/dL 70-105 Serum or plasma calcium measurement (mass/volume) 7.7 mg/dL 8.5-10.1 Serum or plasma phosphate measurement (m ass/volume) - 03/04/19 02:55 Serum or plasma phosphate measurement (mass/volume) 3.6 mg/dL 2.3-4.7 Magnesium - 03/04/19 02:55 Magnesium 1.7 mg/dL 1.6-2.4 Arterial blood gas measurement - 9 03:08 Blood pCO2 34 mm[Hg] 35-45 Blood pO2 64 mm[Hg] 79-93 Arterial blood bicarbonate measurement (moles/volume) 29 mmol/L 23-27 Arterial blood base excess by calculation 5.8 mmol /L -2.5-2.5 Arterial blood oxygen saturation measurement 92 % 94-100 * Inhaled oxygen flow rate 30 NRG Arterial blood pH measurement with patient temperature correction 7.54 7.37-7.43 Arterial blood carbon dioxide, total measurement (mole s/volume) 29.9 mmol/L 21.0-31.0 Body site R RAD NRG Assessment of wrist artery patency prior to arterial p uncture YES-POS NRG Setting of ventilation mode NO NR G Measurement of body temperature 36.3 NRG Capillary blood glucose measurement by g lucometer (mass/volume) - 03/04/19 11:32 Capillary blood glucose measurement by glucometer (mas s/volume) 124 mg/dL 70-110 Capillary blood glucose measurement by g lucometer (mass/volume) - 03/04/19 17:16 Capillary blood glucose measurement by glucometer (mas s/volume) 137 mg/dL 70-110 Capillary blood glucose measurement by g lucometer (mass/volume) - 03/04/19 20:40 Capillary blood glucose measurement by glucometer (mas s/volume) 137 mg/dL 70-110 Complete blood count (CBC) with automate d white blood cell (WBC) differential - 03/05/19 03:00 Blood leukocytes automated count (number/volume) 13.2 10*3/uL 4.3-11.0 Blood erythrocytes automated count (number/volume) 3.54 10*6/uL 4.35-5.85 Venous blood hemoglobin measurement (mass/volume) 11.4 g/dL 11.5-16.0 Blood hematocrit (volume fraction) 36 % 35-52 Automated erythrocyte mean corpuscular volume 100 [foz_us] 80-99 Automated erythrocyte mean corpuscular h emoglobin (mass per erythrocyte) 32 pg 25-34 Automated erythrocyte mean corpuscular h emoglobin concentration measurement (mass/volume) 32 g/dL 32-36 Automated erythrocyte distribution width ratio 14. 5 % 10.0- 14.5 Automated blood platelet count (count/volume) 252 10*3/uL 130-400 Automated blood platelet mean volume measurement 10.0 [foz_us] 7.4-10.4 Automated blood neutrophils/100 leukocytes 87 % 42-75 Automated blood lymphocytes/100 leukocytes 7 % 12-44 Blood monocytes/100 leukocytes 6 % 0-12 Automated blood eosinophils/100 leukocytes 0 % 0-10 Automated blood basophils/100 leukocytes 0 % 0-10 Blood neutrophils automated count (number/volume) 11.4 10*3 1.8-7.8 Blood lymphocytes automated count (number/volume) 1.0 10*3 1.0-4.0 Blood monocytes automated count (number/volume) 0. 8 10*3 0.0-1.0 Automated eosinophil count 0.0 10*3/uL 0 .0-0.3 Automated blood basophil count (count/volume) 0.0 10*3/uL 0.0-0.1 Whole blood basic metabolic panel - 02/06 01/24 03:00 Serum or plasma sodium measurement (moles/volume) 152 mmol/L 135-145 Serum or plasma potassium measurement (moles/volume) 4.2 mmol/L 3.6-5.0 Serum or plasma chloride measurement (moles/volume) 113 mmol/L 98-107 Carbon dioxide 27 mmol/L 21-32 Serum or plasma anion gap determination (moles/volume) 12 mmol/L 5-14 Serum or plasma urea nitrogen measurement (mass/volume ) 58 mg/dL 7-18 Serum or plasma creatinine measurement (mass/volume) 1.58 mg/dL 0.60-1.30 Serum or plasma urea nitrogen/creatinine mass ratio 37 NRG Serum or plasma creatinine measurement w ith calculation of estimated glomerular filtration rate 32 NRG Serum or plasma glucose measurement (mass/volume) 167 mg/dL 70-105 Serum or plasma calcium measurement (mass/volume) 7.7 mg/dL 8.5-10.1 Serum or plasma phosphate measurement (m ass/volume) - 03/05/19 03:00 Serum or plasma phosphate measurement (mass/volume) 4.6 mg/dL 2.3-4.7 Magnesium - 03/05/19 03:00 Magnesium 1.8 mg/dL 1.6-2.4 Arterial blood gas measurement - 9 03:35 Blood pCO2 34 mm[Hg] 35-45 Blood pO2 57 mm[Hg] 79-93 Arterial blood bicarbonate measurement (moles/volume) 27 mmol/L 23-27 Arterial blood base excess by calculation 4.4 mmol /L -2.5-2.5 Arterial blood oxygen saturation measurement 91 % 94-100 * Inhaled oxygen flow rate 30% NRG Arterial blood pH measurement with patient temperature correction 7.51 7.37-7.43 Arterial blood carbon dioxide, total measurement (mole s/volume) 28.5 mmol/L 21.0-31.0 Body site LEFT RADIAL NRG Assessment of wrist artery patency prior to arterial p uncture POSITIVE NRG Setting of ventilation mode NO NR G Measurement of body temperature 37.2 NRG Capillary blood glucose measurement by g lucometer (mass/volume) - 03/05/19 11:18 Capillary blood glucose measurement by glucometer (mas s/volume) 144 mg/dL 70-110 Capillary blood glucose measurement by g lucometer (mass/volume) - 03/05/19 16:27 Capillary blood glucose measurement by glucometer (mas s/volume) 177 mg/dL 70-110 Blood type T Indirect antibody screen pa arthur - 03/05/19 18:06 WRISTBAND NUMBER [id number] NRG ABO+Rh group ABP NRG Blood group antibody screen NEGATIVE NR G RED CELLS LEUKO REDUCED AS1 - 03/05/19 1 8:06 RED CELLS LEUKO REDUCED AS1 N OT AVAILABLE NRG Blood type T Indirect antibody screen pa arthur - 03/05/19 18:06 WRISTBAND NUMBER [id number] NRG ABO+Rh group ABP NRG Blood group antibody screen NEGATIVE NR G Bacteria identification in isolate by an aerobe culture - 03/05/19 18:18 Bacteria identification in isolate by anaerobe culture NOANA NRG Gram stain microscopy - 03/05/19 18:18 Gram stain microscopy No bacteria seen NRG Bacteria identification in wound by cult ure - 03/05/19 18:18 Bacteria identification in wound by culture [id number] NRG QUANTITY OF GROWTH Moderate Growth NRG Arterial blood gas measurement - 9 21:04 Blood pCO2 45 mm[Hg] 35-45 Blood pO2 110 mm[Hg] 79-93 Arterial blood bicarbonate measurement (moles/volume) 28 mmol/L 23-27 Arterial blood base excess by calculation 3.3 mmol /L -2.5-2.5 Arterial blood oxygen saturation measurement 99 % 94-100 * Inhaled oxygen flow rate 10 NRG Arterial blood pH measurement with patient temperature correction 7.41 7.37-7.43 Arterial blood carbon dioxide, total measurement (mole s/volume) 29.6 mmol/L 21.0-31.0 Body site RT ARTLINE NRG Assessment of wrist artery patency prior to arterial p uncture ART LINE NRG Setting of ventilation mode YES NR G Measurement of body temperature 35.2 NRG Capillary blood glucose measurement by g lucometer (mass/volume) - 03/05/19 21:48 Capillary blood glucose measurement by glucometer (mas s/volume) 145 mg/dL 70-110 Sputum Gram stain - 03/06/19 01:21 Sputum Gram stain No bacteria seen NRG Bacterial sputum culture - 03/06/19 01:2 1 QUANTITY OF GROWTH Rare NRG Bacterial sputum culture [id number] NRG Complete blood count (CBC) with automate d white blood cell (WBC) differential - 03/06/19 02:00 Blood leukocytes automated count (number/volume) 8.3 10*3/uL 4.3-11.0 Blood erythrocytes automated count (number/volume) 2.23 10*6/uL 4.35-5.85 Venous blood hemoglobin measurement (mass/volume) 7.2 g/dL 11.5-16.0 Blood hematocrit (volume fraction) 23 % 35-52 Automated erythrocyte mean corpuscular volume 102 [foz_us] 80-99 Automated erythrocyte mean corpuscular h emoglobin (mass per erythrocyte) 32 pg 25-34 Automated erythrocyte mean corpuscular h emoglobin concentration measurement (mass/volume) 32 g/dL 32-36 Automated erythrocyte distribution width ratio 14. 3 % 10.0- 14.5 Automated blood platelet count (count/volume) 175 10*3/uL 130-400 Automated blood platelet mean volume measurement 10.2 [foz_us] 7.4-10.4 Automated blood neutrophils/100 leukocytes 86 % 42-75 Automated blood lymphocytes/100 leukocytes 8 % 12-44 Blood monocytes/100 leukocytes 6 % 0-12 Automated blood eosinophils/100 leukocytes 0 % 0-10 Automated blood basophils/100 leukocytes 0 % 0-10 Blood neutrophils automated count (number/volume) 7.1 10*3 1.8-7.8 Blood lymphocytes automated count (number/volume) 0.7 10*3 1.0-4.0 Blood monocytes automated count (number/volume) 0. 5 10*3 0.0-1.0 Automated eosinophil count 0.0 10*3/uL 0 .0-0.3 Automated blood basophil count (count/volume) 0.0 10*3/uL 0.0-0.1 Whole blood basic metabolic panel - 02/07 02:00 Serum or plasma sodium measurement (moles/volume) 146 mmol/L 135-145 Serum or plasma potassium measurement (moles/volume) 4.1 mmol/L 3.6-5.0 Serum or plasma chloride measurement (moles/volume) 112 mmol/L 98-107 Carbon dioxide 24 mmol/L 21-32 Serum or plasma anion gap determination (moles/volume) 10 mmol/L 5-14 Serum or plasma urea nitrogen measurement (mass/volume ) 62 mg/dL 7-18 Serum or plasma creatinine measurement (mass/volume) 1.54 mg/dL 0.60-1.30 Serum or plasma urea nitrogen/creatinine mass ratio 40 NRG Serum or plasma creatinine measurement w ith calculation of estimated glomerular filtration rate 33 NRG Serum or plasma glucose measurement (mass/volume) 242 mg/dL 70-105 Serum or plasma calcium measurement (mass/volume) 7.0 mg/dL 8.5-10.1 Serum or plasma phosphate measurement (m ass/volume) - 03/06/19 02:00 Serum or plasma phosphate measurement (mass/volume) 5.5 mg/dL 2.3-4.7 Magnesium - 03/06/19 02:00 Magnesium 2.0 mg/dL 1.6-2.4 Blood lactic acid measurement (moles/vol ume) - 03/06/19 02:00 Blood lactic acid measurement (moles/volume) 2.27 mmol/L 0.50-2.00 Liver function panel (serum or plasma al k phos, alb, total and direct bili, total protein, ALT, AST) - 03/06/19 02:00 Serum or plasma total bilirubin measurement (mass/volu me) 1.2 mg/dL 0.1-1.0 Serum or plasma alkaline phosphatase lilliana surement (enzymatic activity/volume) 34 U/L 40-136 Serum or plasma aspartate aminotransfera se measurement (enzymatic activity/volume) 50 U/L 5-34 Serum or plasma alanine aminotransferase measurement (enzymatic activity/volume) 29 U/L 0-55 Serum or plasma protein measurement (mass/volume) 3.8 g/dL 6.4-8.2 Serum or plasma albumin measurement (mass/volume) 1.7 g/dL 3.2-4.5 Bilirubin direct 1.1 mg/dL 0.0-0.3 Serum or plasma indirect bilirubin measurement (mass/v olume) 0.1 mg/dL NRG Arterial blood gas measurement - 9 03:30 Blood pCO2 40 mm[Hg] 35-45 Blood pO2 81 mm[Hg] 79-93 Arterial blood bicarbonate measurement (moles/volume) 28 mmol/L 23-27 Arterial blood base excess by calculation 3.4 mmol /L -2.5-2.5 Arterial blood oxygen saturation measurement 95 % 94-100 * Inhaled oxygen flow rate 10 NRG Arterial blood pH measurement with patient temperature correction 7.45 7.37-7.43 Arterial blood carbon dioxide, total measurement (mole s/volume) 28.7 mmol/L 21.0-31.0 Body site RIGHT RADIAL NRG Assessment of wrist artery patency prior to arterial p uncture ARTLINE NRG Setting of ventilation mode YES NR G Measurement of body temperature 36.0 NRG Whole blood hemoglobin and hematocrit pa arthur - 03/06/19 03:30 Venous blood hemoglobin measurement (mass/volume) 7.4 g/dL 11.5-16.0 Blood hematocrit (volume fraction) 23 % 35-52 Liver function panel (serum or plasma al k phos, alb, total and direct bili, total protein, ALT, AST) - 03/06/19 03:30 Serum or plasma total bilirubin measurement (mass/volu me) 1.2 mg/dL 0.1-1.0 Serum or plasma alkaline phosphatase lilliana surement (enzymatic activity/volume) 31 U/L 40-136 Serum or plasma aspartate aminotransfera se measurement (enzymatic activity/volume) 46 U/L 5-34 Serum or plasma alanine aminotransferase measurement (enzymatic activity/volume) 30 U/L 0-55 Serum or plasma protein measurement (mass/volume) 3.9 g/dL 6.4-8.2 Serum or plasma albumin measurement (mass/volume) 1.8 g/dL 3.2-4.5 Bilirubin direct 0.9 mg/dL 0.0-0.3 Serum or plasma indirect bilirubin measurement (mass/v olume) 0.3 mg/dL NRG Arterial blood gas measurement - 9 06:00 Blood pCO2 40 mm[Hg] 35-45 Blood pO2 60 mm[Hg] 79-93 Arterial blood bicarbonate measurement (moles/volume) 27 mmol/L 23-27 Arterial blood base excess by calculation 2.4 mmol /L -2.5-2.5 Arterial blood oxygen saturation measurement 94 % 94-100 * Inhaled oxygen flow rate 30% NRG Arterial blood pH measurement with patient temperature correction 7.43 7.37-7.43 Arterial blood carbon dioxide, total measurement (mole s/volume) 27.7 mmol/L 21.0-31.0 Body site RIGHT RADIAL NRG Assessment of wrist artery patency prior to arterial p uncture ARTLINE NRG Setting of ventilation mode YES NR G Measurement of body temperature 36.1 NRG Serum or plasma lactate measurement (mol es/volume) - 03/06/19 06:00 Serum or plasma lactate measurement (moles/volume) 2.56 mmol/L 0.50-2.00 Comprehensive metabolic panel - 03/06/19 06:00 Serum or plasma sodium measurement (moles/volume) 144 mmol/L 135-145 Serum or plasma potassium measurement (moles/volume) 4.4 mmol/L 3.6-5.0 Serum or plasma chloride measurement (moles/volume) 111 mmol/L 98-107 Carbon dioxide 24 mmol/L 21-32 Serum or plasma anion gap determination (moles/volume) 9 mmol/L 5-14 Serum or plasma urea nitrogen measurement (mass/volume ) 62 mg/dL 7-18 Serum or plasma creatinine measurement (mass/volume) 1.69 mg/dL 0.60-1.30 Serum or plasma urea nitrogen/creatinine mass ratio 37 NRG Serum or plasma creatinine measurement w ith calculation of estimated glomerular filtration rate 30 NRG Serum or plasma glucose measurement (mass/volume) 234 mg/dL 70-105 Serum or plasma calcium measurement (mass/volume) 7.0 mg/dL 8.5-10.1 Serum or plasma total bilirubin measurement (mass/volu me) 1.4 mg/dL 0.1-1.0 Serum or plasma alkaline phosphatase lilliana surement (enzymatic activity/volume) 36 U/L 40-136 Serum or plasma aspartate aminotransfera se measurement (enzymatic activity/volume) 47 U/L 5-34 Serum or plasma alanine aminotransferase measurement (enzymatic activity/volume) 31 U/L 0-55 Serum or plasma protein measurement (mass/volume) 3.9 g/dL 6.4-8.2 Serum or plasma albumin measurement (mass/volume) 1.7 g/dL 3.2-4.5 CALCIUM CORRECTED 8.8 mg/dL 8.5-10.1 Serum or plasma phosphate measurement (m ass/volume) - 03/06/19 06:00 Serum or plasma phosphate measurement (mass/volume) 5.4 mg/dL 2.3-4.7 Magnesium - 03/06/19 06:00 Magnesium 1.8 mg/dL 1.6-2.4 Capillary blood glucose measurement by g lucometer (mass/volume) - 03/06/19 06:36 Capillary blood glucose measurement by glucometer (mas s/volume) 187 mg/dL 70-110 Whole blood hemoglobin and hematocrit pa arthur - 03/06/19 09:15 Venous blood hemoglobin measurement (mass/volume) 8.7 g/dL 11.5-16.0 Blood hematocrit (volume fraction) 27 % 35-52 Capillary blood glucose measurement by g lucometer (mass/volume) - 03/06/19 11:16 Capillary blood glucose measurement by glucometer (mas s/volume) 215 mg/dL 70-110 Capillary blood glucose measurement by g lucometer (mass/volume) - 03/06/19 16:01 Capillary blood glucose measurement by glucometer (mas s/volume) 194 mg/dL 70-110 Capillary blood glucose measurement by g lucometer (mass/volume) - 03/06/19 20:29 Capillary blood glucose measurement by glucometer (mas s/volume) 133 mg/dL 70-110 Complete blood count (CBC) with automate d white blood cell (WBC) differential - 03/07/19 03:11 Blood leukocytes automated count (number/volume) 16.7 10*3/uL 4.3-11.0 Blood erythrocytes automated count (number/volume) 2.67 10*6/uL 4.35-5.85 Venous blood hemoglobin measurement (mass/volume) 8.5 g/dL 11.5-16.0 Blood hematocrit (volume fraction) 26 % 35-52 Automated erythrocyte mean corpuscular volume 97 [ foz_us] 80-99 Automated erythrocyte mean corpuscular h emoglobin (mass per erythrocyte) 32 pg 25-34 Automated erythrocyte mean corpuscular h emoglobin concentration measurement (mass/volume) 33 g/dL 32-36 Automated erythrocyte distribution width ratio 16. 5 % 10.0- 14.5 Automated blood platelet count (count/volume) 234 10*3/uL 130-400 Automated blood platelet mean volume measurement 10.5 [foz_us] 7.4-10.4 Automated blood neutrophils/100 leukocytes 88 % 42-75 Automated blood lymphocytes/100 leukocytes 4 % 12-44 Blood monocytes/100 leukocytes 7 % 0-12 Automated blood eosinophils/100 leukocytes 0 % 0-10 Automated blood basophils/100 leukocytes 0 % 0-10 Blood neutrophils automated count (number/volume) 14.8 10*3 1.8-7.8 Blood lymphocytes automated count (number/volume) 0.7 10*3 1.0-4.0 Blood monocytes automated count (number/volume) 1. 2 10*3 0.0-1.0 Automated eosinophil count 0.0 10*3/uL 0 .0-0.3 Automated blood basophil count (count/volume) 0.0 10*3/uL 0.0-0.1 Whole blood basic metabolic panel - 02/07 05/26 03:11 Serum or plasma sodium measurement (moles/volume) 140 mmol/L 135-145 Serum or plasma potassium measurement (moles/volume) 4.4 mmol/L 3.6-5.0 Serum or plasma chloride measurement (moles/volume) 106 mmol/L 98-107 Carbon dioxide 22 mmol/L 21-32 Serum or plasma anion gap determination (moles/volume) 12 mmol/L 5-14 Serum or plasma urea nitrogen measurement (mass/volume ) 69 mg/dL 7-18 Serum or plasma creatinine measurement (mass/volume) 2.38 mg/dL 0.60-1.30 Serum or plasma urea nitrogen/creatinine mass ratio 29 NRG Serum or plasma creatinine measurement w ith calculation of estimated glomerular filtration rate 20 NRG Serum or plasma glucose measurement (mass/volume) 214 mg/dL 70-105 Serum or plasma calcium measurement (mass/volume) 6.7 mg/dL 8.5-10.1 Serum or plasma phosphate measurement (m ass/volume) - 03/07/19 03:11 Serum or plasma phosphate measurement (mass/volume) 5.7 mg/dL 2.3-4.7 Magnesium - 03/07/19 03:11 Magnesium 1.8 mg/dL 1.6-2.4 Bacterial blood culture - 03/07/19 05:25 Bacterial blood culture NG NRG Bacterial blood culture - 03/07/19 05:30 Bacterial blood culture NG NRG Blood lactic acid measurement (moles/vol ume) - 03/07/19 05:35 Blood lactic acid measurement (moles/volume) 2.34 mmol/L 0.50-2.00 Serum or plasma lactate measurement (mol es/volume) - 03/07/19 09:15 Serum or plasma lactate measurement (moles/volume) 2.26 mmol/L 0.50-2.00 Bacterial blood culture - 03/07/19 09:15 Bacterial blood culture NG NRG Capillary blood glucose measurement by g lucometer (mass/volume) - 03/07/19 10:55 Capillary blood glucose measurement by glucometer (mas s/volume) 161 mg/dL 70-110 Capillary blood glucose measurement by g lucometer (mass/volume) - 03/07/19 16:50 Capillary blood glucose measurement by glucometer (mas s/volume) 107 mg/dL 70-110 Capillary blood glucose measurement by g lucometer (mass/volume) - 03/07/19 21:29 Capillary blood glucose measurement by glucometer (mas s/volume) 130 mg/dL 70-110 Complete blood count (CBC) with automate d white blood cell (WBC) differential - 03/08/19 03:15 Blood leukocytes automated count (number/volume) 12.4 10*3/uL 4.3-11.0 Blood erythrocytes automated count (number/volume) 1.70 10*6/uL 4.35-5.85 Venous blood hemoglobin measurement (mass/volume) 5.4 g/dL 11.5-16.0 Blood hematocrit (volume fraction) 17 % 35-52 Automated erythrocyte mean corpuscular volume 97 [ foz_us] 80-99 Automated erythrocyte mean corpuscular h emoglobin (mass per erythrocyte) 32 pg 25-34 Automated erythrocyte mean corpuscular h emoglobin concentration measurement (mass/volume) 33 g/dL 32-36 Automated erythrocyte distribution width ratio 15. 6 % 10.0- 14.5 Automated blood platelet count (count/volume) 176 10*3/uL 130-400 Automated blood platelet mean volume measurement 9.8 [foz_us] 7.4-10.4 Automated blood neutrophils/100 leukocytes 84 % 42-75 Automated blood lymphocytes/100 leukocytes 7 % 12-44 Blood monocytes/100 leukocytes 9 % 0-12 Automated blood eosinophils/100 leukocytes 0 % 0-10 Automated blood basophils/100 leukocytes 0 % 0-10 Blood neutrophils automated count (number/volume) 10.5 10*3 1.8-7.8 Blood lymphocytes automated count (number/volume) 0.9 10*3 1.0-4.0 Blood monocytes automated count (number/volume) 1. 1 10*3 0.0-1.0 Automated eosinophil count 0.0 10*3/uL 0 .0-0.3 Automated blood basophil count (count/volume) 0.0 10*3/uL 0.0-0.1 Blood lactic acid measurement (moles/vol ume) - 03/08/19 03:15 Blood lactic acid measurement (moles/volume) 1.24 mmol/L 0.50-2.00 Whole blood basic metabolic panel - 05/26 03:15 Serum or plasma sodium measurement (moles/volume) 139 mmol/L 135-145 Serum or plasma potassium measurement (moles/volume) 4.8 mmol/L 3.6-5.0 Serum or plasma chloride measurement (moles/volume) 105 mmol/L 98-107 Carbon dioxide 23 mmol/L 21-32 Serum or plasma anion gap determination (moles/volume) 11 mmol/L 5-14 Serum or plasma urea nitrogen measurement (mass/volume ) 80 mg/dL 7-18 Serum or plasma creatinine measurement (mass/volume) 3.06 mg/dL 0.60-1.30 Serum or plasma urea nitrogen/creatinine mass ratio 26 NRG Serum or plasma creatinine measurement w ith calculation of estimated glomerular filtration rate 15 NRG Serum or plasma glucose measurement (mass/volume) 139 mg/dL 70-105 Serum or plasma calcium measurement (mass/volume) 7.3 mg/dL 8.5-10.1 Serum or plasma phosphate measurement (m ass/volume) - 03/08/19 03:15 Serum or plasma phosphate measurement (mass/volume) 7.0 mg/dL 2.3-4.7 Magnesium - 03/08/19 03:15 Magnesium 1.8 mg/dL 1.6-2.4 Arterial blood gas measurement - 9 05:17 Blood pCO2 48 mm[Hg] 35-45 Blood pO2 60 mm[Hg] 79-93 Arterial blood bicarbonate measurement (moles/volume) 25 mmol/L 23-27 Arterial blood base excess by calculation -0.3 mmo l/L -2.5-2.5 Arterial blood oxygen saturation measurement 87 % 94-100 * Inhaled oxygen flow rate 30% NRG Arterial blood pH measurement with patient temperature correction 7.33 7.37-7.43 Arterial blood carbon dioxide, total measurement (mole s/volume) 26.4 mmol/L 21.0-31.0 Body site RIGHT RADIAL NRG Assessment of wrist artery patency prior to arterial p uncture ART LINE NRG Setting of ventilation mode NO NR G Measurement of body temperature 36.7 NRG Capillary blood glucose measurement by g lucometer (mass/volume) - 03/08/19 10:44 Capillary blood glucose measurement by glucometer (mas s/volume) 126 mg/dL 70-110 Methicillin resistant Staphylococcus aur eus (MRSA) screening culture - 03/08/19 13:05 Methicillin resistant Staphylococcus aureus (MRSA) scr eening culture NEG NRG Whole blood hemoglobin and hematocrit [facility] - 03/08/19 13:19 Venous blood hemoglobin measurement (mass/volume) 9.2 g/dL 11.5-16.0 Blood hematocrit (volume fraction) 27 % 35-52 Sputum Gram stain - 03/08/19 15:10 Sputum Gram stain No bacteria seen NRG Bacterial sputum culture - 03/08/19 15:1 0 Bacterial sputum culture NG NRG Whole blood hemoglobin and hematocrit [facility] - 03/08/19 16:44 Venous blood hemoglobin measurement (mass/volume) 7.2 g/dL 11.5-16.0 Blood hematocrit (volume fraction) 21 % 35-52 Serum or plasma triglyceride measurement (mass/volume) - 03/08/19 16:44 Serum or plasma triglyceride measurement (mass/volume) 139 mg/dL <150 PT panel in platelet poor plasma by coag ulation assay - 03/08/19 16:44 Prothrombin time (PT) in platelet poor plasma by coagu lation assay 22.5 s 12.2-14.7 INR in platelet poor plasma or blood by coagulation as say 1.9 0.8-1.4 Fibrinogen measurement in platelet poor plasma by coagulation assay (mass/volume) - 03/08/19 16:44 Fibrinogen measurement in platelet poor plasma by coagulation assay (mass/volume) 273 mg/dL 221-496 Comprehensive metabolic panel - 03/08/19 16:44 Serum or plasma sodium measurement (moles/volume) 142 mmol/L 135-145 Serum or plasma potassium measurement (moles/volume) 3.9 mmol/L 3.6-5.0 Serum or plasma chloride measurement (moles/volume) 115 mmol/L 98-107 Carbon dioxide 17 mmol/L 21-32 Serum or plasma anion gap determination (moles/volume) 10 mmol/L 5-14 Serum or plasma urea nitrogen measurement (mass/volume ) 65 mg/dL 7-18 Serum or plasma creatinine measurement (mass/volume) 2.01 mg/dL 0.60-1.30 Serum or plasma urea nitrogen/creatinine mass ratio 32 NRG Serum or plasma creatinine measurement w ith calculation of estimated glomerular filtration rate 24 NRG Serum or plasma glucose measurement (mass/volume) 115 mg/dL 70-105 Serum or plasma calcium measurement (mass/volume) 5.9 mg/dL 8.5-10.1 Serum or plasma total bilirubin measurement (mass/volu me) 2.0 mg/dL 0.1-1.0 Serum or plasma alkaline phosphatase lilliana surement (enzymatic activity/volume) 33 U/L 40-136 Serum or plasma aspartate aminotransfera se measurement (enzymatic activity/volume) 59 U/L 5-34 Serum or plasma alanine aminotransferase measurement (enzymatic activity/volume) 29 U/L 0-55 Serum or plasma protein measurement (mass/volume) 2.9 g/dL 6.4-8.2 Serum or plasma albumin measurement (mass/volume) 1.5 g/dL 3.2-4.5 CALCIUM CORRECTED 7.9 mg/dL 8.5-10.1 Serum or plasma phosphate measurement (m ass/volume) - 03/08/19 16:44 Serum or plasma phosphate measurement (mass/volume) 5.7 mg/dL 2.3-4.7 Serum or plasma troponin i.cardiac measu rement (mass/volume) - 03/08/19 16:44 Serum or plasma troponin i.cardiac measurement (mass/v olume) 0.070 ng/mL <0.028 RED CELLS LEUKO REDUCED AS1 - 03/08/19 1 6:44 RED CELLS LEUKO REDUCED AS1 N OT AVAILABLE NRG Blood type T Indirect antibody screen [facility] - 03/08/19 16:44 WRISTBAND NUMBER [id number] NRG ABO+Rh group ABP NRG Blood group antibody screen NEGATIVE NR G IONIZED CALCIUM (SEND OFF) - 03/08/19 16 :44 Blood ionized calcium measurement (mass/volume) 1. 14 % 1.16- 1.32 Venous blood ionized calcium measurement adjusted to pH 7.4 (moles/volume) 1.16 % 1.16-1.32 pH measurement 7.43 NRG Arterial blood gas measurement - 9 16:52 Blood pCO2 43 mm[Hg] 35-45 Blood pO2 56 mm[Hg] 79-93 Arterial blood bicarbonate measurement (moles/volume) 23 mmol/L 23-27 Arterial blood base excess by calculation -1.8 mmo l/L -2.5-2.5 Arterial blood oxygen saturation measurement 87 % 94-100 * Inhaled oxygen flow rate UNK NRG Arterial blood pH measurement with patient temperature correction 7.35 7.37-7.43 Arterial blood carbon dioxide, total measurement (mole s/volume) 24.4 mmol/L 21.0-31.0 Body site RIGHT RADIAL NRG Assessment of wrist artery patency prior to arterial p uncture POSITIVE NRG Setting of ventilation mode YES NR G Measurement of body temperature 36.6 NRG Capillary blood glucose measurement by g lucometer (mass/volume) - 03/08/19 17:54 Capillary blood glucose measurement by glucometer (mas s/volume) 139 mg/dL 70-110 OCCULT BLOOD STOOL - 03/08/19 20:50 Stool gastrointestinal hemoglobin detection POSITI VE NEGATIVE Whole blood hemoglobin and hematocrit pa [facility] - 03/09/19 00:05 Venous blood hemoglobin measurement (mass/volume) 10.5 g/dL 11.5-16.0 Blood hematocrit (volume fraction) 31 % 35-52 Serum or plasma potassium measurement (m oles/volume) - 03/09/19 00:05 Serum or plasma potassium measurement (moles/volume) 5.0 mmol/L 3.6-5.0 Blood lactic acid measurement (moles/vol ume) - 03/09/19 00:05 Blood lactic acid measurement (moles/volume) 1.32 mmol/L 0.50-2.00 Serum or plasma troponin i.cardiac measu rement (mass/volume) - 03/09/19 00:05 Serum or plasma troponin i.cardiac measurement (mass/v olume) 0.053 ng/mL <0.028 IONIZED CALCIUM (SEND OFF) - 03/09/19 00 :05 Blood ionized calcium measurement (mass/volume) 1. 10 % 1.16- 1.32 Venous blood ionized calcium measurement adjusted to pH 7.4 (moles/volume) 1.12 % 1.16-1.32 pH measurement 7.42 NRG Capillary blood glucose measurement by g lucometer (mass/volume) - 03/09/19 00:12 Capillary blood glucose measurement by glucometer (mas s/volume) 162 mg/dL 70-110 Arterial blood gas measurement - 9 03:00 Blood pCO2 42 mm[Hg] 35-45 Blood pO2 67 mm[Hg] 79-93 Arterial blood bicarbonate measurement (moles/volume) 24 mmol/L 23-27 Arterial blood base excess by calculation -1.1 mmo l/L -2.5-2.5 Arterial blood oxygen saturation measurement 93 % 94-100 * Inhaled oxygen flow rate 30% NRG Arterial blood pH measurement with patient temperature correction 7.37 7.37-7.43 Arterial blood carbon dioxide, total measurement (mole s/volume) 24.9 mmol/L 21.0-31.0 Body site RIGHT ART LINE NRG Assessment of wrist artery patency prior to arterial p uncture ART LINE NRG Setting of ventilation mode YES NR G Measurement of body temperature 36.5 NRG Complete blood count (CBC) with automate d white blood cell (WBC) differential - 03/09/19 03:00 Blood leukocytes automated count (number/volume) 9.3 10*3/uL 4.3-11.0 Blood erythrocytes automated count (number/volume) 3.51 10*6/uL 4.35-5.85 Venous blood hemoglobin measurement (mass/volume) 10.6 g/dL 11.5-16.0 Blood hematocrit (volume fraction) 31 % 35-52 Automated erythrocyte mean corpuscular volume 88 [ foz_us] 80-99 Automated erythrocyte mean corpuscular h emoglobin (mass per erythrocyte) 30 pg 25-34 Automated erythrocyte mean corpuscular h emoglobin concentration measurement (mass/volume) 34 g/dL 32-36 Automated erythrocyte distribution width ratio 17. 9 % 10.0- 14.5 Automated blood platelet count (count/volume) 194 10*3/uL 130-400 Automated blood platelet mean volume measurement 10.3 [foz_us] 7.4-10.4 Automated blood neutrophils/100 leukocytes 82 % 42-75 Automated blood lymphocytes/100 leukocytes 9 % 12-44 Blood monocytes/100 leukocytes 9 % 0-12 Automated blood eosinophils/100 leukocytes 1 % 0-10 Automated blood basophils/100 leukocytes 0 % 0-10 Blood neutrophils automated count (number/volume) 7.6 10*3 1.8-7.8 Blood lymphocytes automated count (number/volume) 0.8 10*3 1.0-4.0 Blood monocytes automated count (number/volume) 0. 8 10*3 0.0-1.0 Automated eosinophil count 0.1 10*3/uL 0 .0-0.3 Automated blood basophil count (count/volume) 0.0 10*3/uL 0.0-0.1 PT panel in platelet poor plasma by coag ulation assay - 03/09/19 03:00 Prothrombin time (PT) in platelet poor plasma by coagu lation assay 18.6 s 12.2-14.7 INR in platelet poor plasma or blood by coagulation as say 1.5 0.8-1.4 Whole blood basic metabolic panel - 06/26 03:00 Serum or plasma sodium measurement (moles/volume) 140 mmol/L 135-145 Serum or plasma potassium measurement (moles/volume) 4.9 mmol/L 3.6-5.0 Serum or plasma chloride measurement (moles/volume) 108 mmol/L 98-107 Carbon dioxide 20 mmol/L 21-32 Serum or plasma anion gap determination (moles/volume) 12 mmol/L 5-14 Serum or plasma urea nitrogen measurement (mass/volume ) 73 mg/dL 7-18 Serum or plasma creatinine measurement (mass/volume) 2.23 mg/dL 0.60-1.30 Serum or plasma urea nitrogen/creatinine mass ratio 33 NRG Serum or plasma creatinine measurement w ith calculation of estimated glomerular filtration rate 21 NRG Serum or plasma glucose measurement (mass/volume) 145 mg/dL 70-105 Serum or plasma calcium measurement (mass/volume) 7.6 mg/dL 8.5-10.1 Serum or plasma phosphate measurement (m ass/volume) - 03/09/19 03:00 Serum or plasma phosphate measurement (mass/volume) 7.0 mg/dL 2.3-4.7 Magnesium - 03/09/19 03:00 Magnesium 1.8 mg/dL 1.6-2.4 Capillary blood glucose measurement by g lucometer (mass/volume) - 03/09/19 12:03 Capillary blood glucose measurement by glucometer (mas s/volume) 153 mg/dL 70-110 Capillary blood glucose measurement by g lucometer (mass/volume) - 03/09/19 18:42 Capillary blood glucose measurement by glucometer (mas s/volume) 130 mg/dL 70-110 Capillary blood glucose measurement by g lucometer (mass/volume) - 03/10/19 00:28 Capillary blood glucose measurement by glucometer (mas s/volume) 143 mg/dL 70-110 Complete blood count (CBC) with automate d white blood cell (WBC) differential - 03/10/19 02:15 Blood leukocytes automated count (number/volume) 10.9 10*3/uL 4.3-11.0 Blood erythrocytes automated count (number/volume) 3.25 10*6/uL 4.35-5.85 Venous blood hemoglobin measurement (mass/volume) 9.8 g/dL 11.5-16.0 Blood hematocrit (volume fraction) 29 % 35-52 Automated erythrocyte mean corpuscular volume 88 [ foz_us] 80-99 Automated erythrocyte mean corpuscular h emoglobin (mass per erythrocyte) 30 pg 25-34 Automated erythrocyte mean corpuscular h emoglobin concentration measurement (mass/volume) 34 g/dL 32-36 Automated erythrocyte distribution width ratio 17. 9 % 10.0- 14.5 Automated blood platelet count (count/volume) 218 10*3/uL 130-400 Automated blood platelet mean volume measurement 9.7 [foz_us] 7.4-10.4 Automated blood neutrophils/100 leukocytes 89 % 42-75 Automated blood lymphocytes/100 leukocytes 5 % 12-44 Blood monocytes/100 leukocytes 6 % 0-12 Automated blood eosinophils/100 leukocytes 0 % 0-10 Automated blood basophils/100 leukocytes 0 % 0-10 Blood neutrophils automated count (number/volume) 9.7 10*3 1.8-7.8 Blood lymphocytes automated count (number/volume) 0.5 10*3 1.0-4.0 Blood monocytes automated count (number/volume) 0. 7 10*3 0.0-1.0 Automated eosinophil count 0.0 10*3/uL 0 .0-0.3 Automated blood basophil count (count/volume) 0.0 10*3/uL 0.0-0.1 Whole blood basic metabolic panel - 07/24 02:15 Serum or plasma sodium measurement (moles/volume) 143 mmol/L 135-145 Serum or plasma potassium measurement (moles/volume) 4.3 mmol/L 3.6-5.0 Serum or plasma chloride measurement (moles/volume) 111 mmol/L 98-107 Carbon dioxide 22 mmol/L 21-32 Serum or plasma anion gap determination (moles/volume) 10 mmol/L 5-14 Serum or plasma urea nitrogen measurement (mass/volume ) 83 mg/dL 7-18 Serum or plasma creatinine measurement (mass/volume) 1.61 mg/dL 0.60-1.30 Serum or plasma urea nitrogen/creatinine mass ratio 52 NRG Serum or plasma creatinine measurement w ith calculation of estimated glomerular filtration rate 31 NRG Serum or plasma glucose measurement (mass/volume) 156 mg/dL 70-105 Serum or plasma calcium measurement (mass/volume) 7.7 mg/dL 8.5-10.1 Serum or plasma phosphate measurement (m ass/volume) - 03/10/19 02:15 Serum or plasma phosphate measurement (mass/volume) 5.1 mg/dL 2.3-4.7 Magnesium - 03/10/19 02:15 Magnesium 1.8 mg/dL 1.6-2.4 Serum or plasma triglyceride measurement (mass/volume) - 03/10/19 02:15 Serum or plasma triglyceride measurement (mass/volume) 425 mg/dL <150 Arterial blood gas measurement - 9 02:20 Blood pCO2 33 mm[Hg] 35-45 Blood pO2 63 mm[Hg] 79-93 Arterial blood bicarbonate measurement (moles/volume) 26 mmol/L 23-27 Arterial blood base excess by calculation 3.0 mmol /L -2.5-2.5 Arterial blood oxygen saturation measurement 92 % 94-100 * Inhaled oxygen flow rate 30% NRG Arterial blood pH measurement with patient temperature correction 7.51 7.37-7.43 Arterial blood carbon dioxide, total measurement (mole s/volume) 27.2 mmol/L 21.0-31.0 Body site RIGHT ART LINE NRG Assessment of wrist artery patency prior to arterial p uncture ART LINE NRG Setting of ventilation mode YES NR G Measurement of body temperature 36.4 NRG Prealbumin - 03/10/19 05:30 Serum or plasma prealbumin measurement (mass/volume) < % 18.0-37.0 Arterial blood gas measurement - 9 06:30 Blood pCO2 35 mm[Hg] 35-45 Blood pO2 70 mm[Hg] 79-93 Arterial blood bicarbonate measurement (moles/volume) 26 mmol/L 23-27 Arterial blood base excess by calculation 2.9 mmol /L -2.5-2.5 Arterial blood oxygen saturation measurement 94 % 94-100 * Inhaled oxygen flow rate 30% NRG Arterial blood pH measurement with patient temperature correction 7.48 7.37-7.43 Arterial blood carbon dioxide, total measurement (mole s/volume) 27.5 mmol/L 21.0-31.0 Body site RIGHT ART LINE NRG Assessment of wrist artery patency prior to arterial p uncture ART LINE NRG Setting of ventilation mode YES NR G Measurement of body temperature 36.2 NRG Arterial blood gas measurement - 9 08:20 Blood pCO2 41 mm[Hg] 35-45 Blood pO2 67 mm[Hg] 79-93 Arterial blood bicarbonate measurement (moles/volume) 27 mmol/L 23-27 Arterial blood base excess by calculation 3.2 mmol /L -2.5-2.5 Arterial blood oxygen saturation measurement 91 % 94-100 * Inhaled oxygen flow rate 30% NRG Arterial blood pH measurement with patient temperature correction 7.43 7.37-7.43 Arterial blood carbon dioxide, total measurement (mole s/volume) 28.4 mmol/L 21.0-31.0 Body site NA NRG Assessment of wrist artery patency prior to arterial p uncture NA NRG Setting of ventilation mode YES NR G Measurement of body temperature 37.1 NRG Capillary blood glucose measurement by g lucometer (mass/volume) - 03/10/19 11:44 Capillary blood glucose measurement by glucometer (mas s/volume) 221 mg/dL 70-110 Blood CBC with ordered manual differenti al panel - 03/10/19 16:50 Blood leukocytes automated count (number/volume) 9.5 10*3/uL 4.3-11.0 Blood erythrocytes automated count (number/volume) 3.13 10*6/uL 4.35-5.85 Venous blood hemoglobin measurement (mass/volume) 9.9 g/dL 11.5-16.0 Blood hematocrit (volume fraction) 28 % 35-52 Automated erythrocyte mean corpuscular volume 90 [ foz_us] 80-99 Automated erythrocyte mean corpuscular h emoglobin (mass per erythrocyte) 32 pg 25-34 Automated erythrocyte mean corpuscular h emoglobin concentration measurement (mass/volume) 35 g/dL 32-36 Automated erythrocyte distribution width ratio 17. 5 % 10.0- 14.5 Automated blood platelet count (count/volume) 179 10*3/uL 130-400 Automated blood platelet mean volume measurement 10.3 [foz_us] 7.4-10.4 Automated blood neutrophils/100 leukocytes 88 % 42-75 Automated blood lymphocytes/100 leukocytes 5 % 12-44 Blood monocytes/100 leukocytes 1 % NRG Automated blood eosinophils/100 leukocytes 0 % 0-10 Automated blood basophils/100 leukocytes 0 % 0-10 Blood neutrophils automated count (number/volume) 8.4 10*3 1.8-7.8 Blood lymphocytes automated count (number/volume) 0.4 10*3 1.0-4.0 Blood monocytes automated count (number/volume) 0. 7 10*3 0.0-1.0 Automated eosinophil count 0.0 10*3/uL 0 .0-0.3 Automated blood basophil count (count/volume) 0.0 10*3/uL 0.0-0.1 Manual blood segmented neutrophils/100 leukocytes 94 % NRG Blood band neutrophils/100 leukocytes 4 % NRG Manual blood lymphocytes/100 leukocytes 1 % NRG Manual eosinophils/100 leukocytes in nose 0 % NRG Manual blood basophils/100 leukocytes 0 % NRG Blood anisocytosis detection by light microscopy M ARKED NRG Blood lactic acid measurement (moles/vol ume) - 03/10/19 16:50 Blood lactic acid measurement (moles/volume) 1.40 mmol/L 0.50-2.00 Whole blood basic metabolic panel - 07/24 16:50 Serum or plasma sodium measurement (moles/volume) 139 mmol/L 135-145 Serum or plasma potassium measurement (moles/volume) 4.2 mmol/L 3.6-5.0 Serum or plasma chloride measurement (moles/volume) 107 mmol/L 98-107 Carbon dioxide 23 mmol/L 21-32 Serum or plasma anion gap determination (moles/volume) 9 mmol/L 5-14 Serum or plasma urea nitrogen measurement (mass/volume ) 70 mg/dL 7-18 Serum or plasma creatinine measurement (mass/volume) 1.34 mg/dL 0.60-1.30 Serum or plasma urea nitrogen/creatinine mass ratio 52 NRG Serum or plasma creatinine measurement w ith calculation of estimated glomerular filtration rate 39 NRG Serum or plasma glucose measurement (mass/volume) 252 mg/dL 70-105 Serum or plasma calcium measurement (mass/volume) 7.1 mg/dL 8.5-10.1 [id number] - 03/10/19 16:50 Prothrombin time (PT) in platelet poor plasma by coagu lation assay 16.1 s 12.2-14.7 INR in platelet poor plasma or blood by coagulation as say 1.2 0.8-1.4 Activated partial thromboplastin time (a PTT) in platelet poor plasma bycoagulation assay 29 s 24-35 Fibrin D-dimer FEU measurement in platelet poor plasma (mass/volume) 2.65 ug/mL 0.00-0.49 Fibrinogen measurement in platelet poor plasma by coagulation assay (mass/volume) 452 mg/dL 221-496 Capillary blood glucose measurement by g lucometer (mass/volume) - 03/11/19 00:22 Capillary blood glucose measurement by glucometer (mas s/volume) 303 mg/dL 70-110 Complete blood count (CBC) with automate d white blood cell (WBC) differential - 03/11/19 03:06 Blood leukocytes automated count (number/volume) 7.4 10*3/uL 4.3-11.0 Blood erythrocytes automated count (number/volume) 3.15 10*6/uL 4.35-5.85 Venous blood hemoglobin measurement (mass/volume) 9.5 g/dL 11.5-16.0 Blood hematocrit (volume fraction) 28 % 35-52 Automated erythrocyte mean corpuscular volume 90 [ foz_us] 80-99 Automated erythrocyte mean corpuscular h emoglobin (mass per erythrocyte) 30 pg 25-34 Automated erythrocyte mean corpuscular h emoglobin concentration measurement (mass/volume) 34 g/dL 32-36 Automated erythrocyte distribution width ratio 17. 3 % 10.0- 14.5 Automated blood platelet count (count/volume) 181 10*3/uL 130-400 Automated blood platelet mean volume measurement 10.1 [foz_us] 7.4-10.4 Automated blood neutrophils/100 leukocytes 87 % 42-75 Automated blood lymphocytes/100 leukocytes 6 % 12-44 Blood monocytes/100 leukocytes 8 % 0-12 Automated blood eosinophils/100 leukocytes 0 % 0-10 Automated blood basophils/100 leukocytes 0 % 0-10 Blood neutrophils automated count (number/volume) 6.4 10*3 1.8-7.8 Blood lymphocytes automated count (number/volume) 0.4 10*3 1.0-4.0 Blood monocytes automated count (number/volume) 0. 6 10*3 0.0-1.0 Automated eosinophil count 0.0 10*3/uL 0 .0-0.3 Automated blood basophil count (count/volume) 0.0 10*3/uL 0.0-0.1 Arterial blood gas measurement - 9 03:06 Blood pCO2 40 mm[Hg] 35-45 Blood pO2 54 mm[Hg] 79-93 Arterial blood bicarbonate measurement (moles/volume) 27 mmol/L 23-27 Arterial blood base excess by calculation 2.7 mmol /L -2.5-2.5 Arterial blood oxygen saturation measurement 87 % 94-100 * Inhaled oxygen flow rate 21% NRG Arterial blood pH measurement with patient temperature correction 7.44 7.37-7.43 Arterial blood carbon dioxide, total measurement (mole s/volume) 28.0 mmol/L 21.0-31.0 Body site RIGHT ARTLINE NRG Assessment of wrist artery patency prior to arterial p uncture ART LINE NRG Setting of ventilation mode YES NR G Measurement of body temperature 36.1 NRG Whole blood basic metabolic panel - 08/24 03:06 Serum or plasma sodium measurement (moles/volume) 144 mmol/L 135-145 Serum or plasma potassium measurement (moles/volume) 3.9 mmol/L 3.6-5.0 Serum or plasma chloride measurement (moles/volume) 110 mmol/L 98-107 Carbon dioxide 23 mmol/L 21-32 Serum or plasma anion gap determination (moles/volume) 11 mmol/L 5-14 Serum or plasma urea nitrogen measurement (mass/volume ) 46 mg/dL 7-18 Serum or plasma creatinine measurement (mass/volume) 1.15 mg/dL 0.60-1.30 Serum or plasma urea nitrogen/creatinine mass ratio 40 NRG Serum or plasma creatinine measurement w ith calculation of estimated glomerular filtration rate 46 NRG Serum or plasma glucose measurement (mass/volume) 298 mg/dL 70-105 Serum or plasma calcium measurement (mass/volume) 7.5 mg/dL 8.5-10.1 Serum or plasma phosphate measurement (m ass/volume) - 03/11/19 03:06 Serum or plasma phosphate measurement (mass/volume) 4.2 mg/dL 2.3-4.7 Magnesium - 03/11/19 03:06 Magnesium 2.1 mg/dL 1.6-2.4 Capillary blood glucose measurement by g lucometer (mass/volume) - 03/11/19 12:26 Capillary blood glucose measurement by glucometer (mas s/volume) 319 mg/dL 70-110 Capillary blood glucose measurement by g lucometer (mass/volume) - 03/11/19 17:40 Capillary blood glucose measurement by glucometer (mas s/volume) 232 mg/dL 70-110 Capillary blood glucose measurement by g lucometer (mass/volume) - 03/11/19 23:32 Capillary blood glucose measurement by glucometer (mas s/volume) 349 mg/dL 70-110 Complete blood count (CBC) with automate d white blood cell (WBC) differential - 03/12/19 03:00 Blood leukocytes automated count (number/volume) 7.4 10*3/uL 4.3-11.0 Blood erythrocytes automated count (number/volume) 3.08 10*6/uL 4.35-5.85 Venous blood hemoglobin measurement (mass/volume) 9.3 g/dL 11.5-16.0 Blood hematocrit (volume fraction) 28 % 35-52 Automated erythrocyte mean corpuscular volume 92 [ foz_us] 80-99 Automated erythrocyte mean corpuscular h emoglobin (mass per erythrocyte) 30 pg 25-34 Automated erythrocyte mean corpuscular h emoglobin concentration measurement (mass/volume) 33 g/dL 32-36 Automated erythrocyte distribution width ratio 17. 5 % 10.0- 14.5 Automated blood platelet count (count/volume) 178 10*3/uL 130-400 Automated blood platelet mean volume measurement 9.9 [foz_us] 7.4-10.4 Automated blood neutrophils/100 leukocytes 87 % 42-75 Automated blood lymphocytes/100 leukocytes 4 % 12-44 Blood monocytes/100 leukocytes 9 % 0-12 Automated blood eosinophils/100 leukocytes 0 % 0-10 Automated blood basophils/100 leukocytes 0 % 0-10 Blood neutrophils automated count (number/volume) 6.4 10*3 1.8-7.8 Blood lymphocytes automated count (number/volume) 0.3 10*3 1.0-4.0 Blood monocytes automated count (number/volume) 0. 7 10*3 0.0-1.0 Automated eosinophil count 0.0 10*3/uL 0 .0-0.3 Automated blood basophil count (count/volume) 0.0 10*3/uL 0.0-0.1 Arterial blood gas measurement - 9 03:00 Blood pCO2 41 mm[Hg] 35-45 Blood pO2 58 mm[Hg] 79-93 Arterial blood bicarbonate measurement (moles/volume) 26 mmol/L 23-27 Arterial blood base excess by calculation 1.8 mmol /L -2.5-2.5 Arterial blood oxygen saturation measurement 91 % 94-100 * Inhaled oxygen flow rate 30% NRG Arterial blood pH measurement with patient temperature correction 7.42 7.37-7.43 Arterial blood carbon dioxide, total measurement (mole s/volume) 27.4 mmol/L 21.0-31.0 Body site RIGHT RADIAL NRG Assessment of wrist artery patency prior to arterial p uncture ART LINE NRG Setting of ventilation mode YES NR G Measurement of body temperature 36.1 NRG Whole blood basic metabolic panel - 09/23 03:00 Serum or plasma sodium measurement (moles/volume) 142 mmol/L 135-145 Serum or plasma potassium measurement (moles/volume) 3.9 mmol/L 3.6-5.0 Serum or plasma chloride measurement (moles/volume) 111 mmol/L 98-107 Carbon dioxide 22 mmol/L 21-32 Serum or plasma anion gap determination (moles/volume) 9 mmol/L 5-14 Serum or plasma urea nitrogen measurement (mass/volume ) 38 mg/dL 7-18 Serum or plasma creatinine measurement (mass/volume) 0.98 mg/dL 0.60-1.30 Serum or plasma urea nitrogen/creatinine mass ratio 39 NRG Serum or plasma creatinine measurement w ith calculation of estimated glomerular filtration rate 55 NRG Serum or plasma glucose measurement (mass/volume) 316 mg/dL 70-105 Serum or plasma calcium measurement (mass/volume) 7.1 mg/dL 8.5-10.1 Serum or plasma phosphate measurement (m ass/volume) - 03/12/19 03:00 Serum or plasma phosphate measurement (mass/volume) 3.6 mg/dL 2.3-4.7 Magnesium - 03/12/19 03:00 Magnesium 2.0 mg/dL 1.6-2.4 Serum or plasma triglyceride measurement (mass/volume) - 03/12/19 03:00 Serum or plasma triglyceride measurement (mass/volume) 289 mg/dL <150 Capillary blood glucose measurement by g lucometer (mass/volume) - 03/12/19 08:18 Capillary blood glucose measurement by glucometer (mas s/volume) 292 mg/dL 70-110 Capillary blood glucose measurement by g lucometer (mass/volume) - 03/12/19 11:37 Capillary blood glucose measurement by glucometer (mas s/volume) 225 mg/dL 70-110 Capillary blood glucose measurement by g lucometer (mass/volume) - 03/12/19 16:24 Capillary blood glucose measurement by glucometer (mas s/volume) 228 mg/dL 70-110 Capillary blood glucose measurement by g lucometer (mass/volume) - 03/12/19 21:15 Capillary blood glucose measurement by glucometer (mas s/volume) 237 mg/dL 70-110 Capillary blood glucose measurement by g lucometer (mass/volume) - 03/13/19 00:30 Capillary blood glucose measurement by glucometer (mas s/volume) 214 mg/dL 70-110 Complete blood count (CBC) with automate d white blood cell (WBC) differential - 03/13/19 03:10 Blood leukocytes automated count (number/volume) 7.4 10*3/uL 4.3-11.0 Blood erythrocytes automated count (number/volume) 2.86 10*6/uL 4.35-5.85 Venous blood hemoglobin measurement (mass/volume) 8.6 g/dL 11.5-16.0 Blood hematocrit (volume fraction) 27 % 35-52 Automated erythrocyte mean corpuscular volume 93 [ foz_us] 80-99 Automated erythrocyte mean corpuscular h emoglobin (mass per erythrocyte) 30 pg 25-34 Automated erythrocyte mean corpuscular h emoglobin concentration measurement (mass/volume) 32 g/dL 32-36 Automated erythrocyte distribution width ratio 16. 7 % 10.0- 14.5 Automated blood platelet count (count/volume) 142 10*3/uL 130-400 Automated blood platelet mean volume measurement 10.2 [foz_us] 7.4-10.4 Automated blood neutrophils/100 leukocytes 89 % 42-75 Automated blood lymphocytes/100 leukocytes 5 % 12-44 Blood monocytes/100 leukocytes 7 % 0-12 Automated blood eosinophils/100 leukocytes 0 % 0-10 Automated blood basophils/100 leukocytes 0 % 0-10 Blood neutrophils automated count (number/volume) 6.6 10*3 1.8-7.8 Blood lymphocytes automated count (number/volume) 0.4 10*3 1.0-4.0 Blood monocytes automated count (number/volume) 0. 5 10*3 0.0-1.0 Automated eosinophil count 0.0 10*3/uL 0 .0-0.3 Automated blood basophil count (count/volume) 0.0 10*3/uL 0.0-0.1 Arterial blood gas measurement - 9 03:10 Blood pCO2 45 mm[Hg] 35-45 Blood pO2 56 mm[Hg] 79-93 Arterial blood bicarbonate measurement (moles/volume) 26 mmol/L 23-27 Arterial blood base excess by calculation 1.1 mmol /L -2.5-2.5 Arterial blood oxygen saturation measurement 90 % 94-100 * Inhaled oxygen flow rate 28% NRG Arterial blood pH measurement with patient temperature correction 7.38 7.37-7.43 Arterial blood carbon dioxide, total measurement (mole s/volume) 27.4 mmol/L 21.0-31.0 Body site RIGHT ARTLINE NRG Assessment of wrist artery patency prior to arterial p uncture ARTLINE NRG Setting of ventilation mode YES NR G Measurement of body temperature 36.0 NRG Whole blood basic metabolic panel - 10/24 03:10 Serum or plasma sodium measurement (moles/volume) 141 mmol/L 135-145 Serum or plasma potassium measurement (moles/volume) 4.3 mmol/L 3.6-5.0 Serum or plasma chloride measurement (moles/volume) 110 mmol/L 98-107 Carbon dioxide 22 mmol/L 21-32 Serum or plasma anion gap determination (moles/volume) 9 mmol/L 5-14 Serum or plasma urea nitrogen measurement (mass/volume ) 40 mg/dL 7-18 Serum or plasma creatinine measurement (mass/volume) 0.81 mg/dL 0.60-1.30 Serum or plasma urea nitrogen/creatinine mass ratio 49 NRG Serum or plasma creatinine measurement w ith calculation of estimated glomerular filtration rate > NRG Serum or plasma glucose measurement (mass/volume) 216 mg/dL 70-105 Serum or plasma calcium measurement (mass/volume) 7.1 mg/dL 8.5-10.1 Serum or plasma phosphate measurement (m ass/volume) - 03/13/19 03:10 Serum or plasma phosphate measurement (mass/volume) 4.2 mg/dL 2.3-4.7 Magnesium - 03/13/19 03:10 Magnesium 2.1 mg/dL 1.6-2.4 Manual absolute plasma cell count - 10/24 03:10 Blood monocytes/100 leukocytes 6 % NRG Manual blood segmented neutrophils/100 leukocytes 91 % NRG Manual blood lymphocytes/100 leukocytes 3 % NRG Capillary blood glucose measurement by g lucometer (mass/volume) - 03/13/19 08:26 Capillary blood glucose measurement by glucometer (mas s/volume) 231 mg/dL 70-110 Capillary blood glucose measurement by g lucometer (mass/volume) - 03/13/19 13:49 Capillary blood glucose measurement by glucometer (mas s/volume) 247 mg/dL 70-110 Capillary blood glucose measurement by g lucometer (mass/volume) - 03/13/19 20:16 Capillary blood glucose measurement by glucometer (mas s/volume) 280 mg/dL 70-110 Capillary blood glucose measurement by g lucometer (mass/volume) - 03/14/19 00:24 Capillary blood glucose measurement by glucometer (mas s/volume) 284 mg/dL 70-110 Complete blood count (CBC) with automate d white blood cell (WBC) differential - 03/14/19 02:45 Blood leukocytes automated count (number/volume) 9.9 10*3/uL 4.3-11.0 Blood erythrocytes automated count (number/volume) 3.08 10*6/uL 4.35-5.85 Venous blood hemoglobin measurement (mass/volume) 9.2 g/dL 11.5-16.0 Blood hematocrit (volume fraction) 29 % 35-52 Automated erythrocyte mean corpuscular volume 94 [ foz_us] 80-99 Automated erythrocyte mean corpuscular h emoglobin (mass per erythrocyte) 30 pg 25-34 Automated erythrocyte mean corpuscular h emoglobin concentration measurement (mass/volume) 32 g/dL 32-36 Automated erythrocyte distribution width ratio 16. 4 % 10.0- 14.5 Automated blood platelet count (count/volume) 145 10*3/uL 130-400 Automated blood platelet mean volume measurement 10.0 [foz_us] 7.4-10.4 Automated blood neutrophils/100 leukocytes 89 % 42-75 Automated blood lymphocytes/100 leukocytes 4 % 12-44 Blood monocytes/100 leukocytes 7 % 0-12 Automated blood eosinophils/100 leukocytes 0 % 0-10 Automated blood basophils/100 leukocytes 0 % 0-10 Blood neutrophils automated count (number/volume) 8.8 10*3 1.8-7.8 Blood lymphocytes automated count (number/volume) 0.4 10*3 1.0-4.0 Blood monocytes automated count (number/volume) 0. 7 10*3 0.0-1.0 Automated eosinophil count 0.0 10*3/uL 0 .0-0.3 Automated blood basophil count (count/volume) 0.0 10*3/uL 0.0-0.1 Whole blood basic metabolic panel - 11/23 02:45 Serum or plasma sodium measurement (moles/volume) 137 mmol/L 135-145 Serum or plasma potassium measurement (moles/volume) 4.9 mmol/L 3.6-5.0 Serum or plasma chloride measurement (moles/volume) 109 mmol/L 98-107 Carbon dioxide 21 mmol/L 21-32 Serum or plasma anion gap determination (moles/volume) 7 mmol/L 5-14 Serum or plasma urea nitrogen measurement (mass/volume ) 50 mg/dL 7-18 Serum or plasma creatinine measurement (mass/volume) 0.78 mg/dL 0.60-1.30 Serum or plasma urea nitrogen/creatinine mass ratio 64 NRG Serum or plasma creatinine measurement w ith calculation of estimated glomerular filtration rate > NRG Serum or plasma glucose measurement (mass/volume) 267 mg/dL 70-105 Serum or plasma calcium measurement (mass/volume) 7.2 mg/dL 8.5-10.1 Serum or plasma phosphate measurement (m ass/volume) - 03/14/19 02:45 Serum or plasma phosphate measurement (mass/volume) 4.5 mg/dL 2.3-4.7 Magnesium - 03/14/19 02:45 Magnesium 2.1 mg/dL 1.6-2.4 Serum or plasma triglyceride measurement (mass/volume) - 03/14/19 02:45 Serum or plasma triglyceride measurement (mass/volume) 243 mg/dL <150 Arterial blood gas measurement - 9 02:50 Blood pCO2 47 mm[Hg] 35-45 Blood pO2 76 mm[Hg] 79-93 Arterial blood bicarbonate measurement (moles/volume) 25 mmol/L 23-27 Arterial blood base excess by calculation -0.7 mmo l/L -2.5-2.5 Arterial blood oxygen saturation measurement 95 % 94-100 * Inhaled oxygen flow rate 28% NRG Arterial blood pH measurement with patient temperature correction 7.34 7.37-7.43 Arterial blood carbon dioxide, total measurement (mole s/volume) 26.1 mmol/L 21.0-31.0 Body site RIGHT ARTLINE NRG Assessment of wrist artery patency prior to arterial p uncture ARTLINE NRG Setting of ventilation mode YES NR G Measurement of body temperature 36.0 NRG Capillary blood glucose measurement by g lucometer (mass/volume) - 03/14/19 08:35 Capillary blood glucose measurement by glucometer (mas s/volume) 250 mg/dL 70-110 Prealbumin - 03/14/19 08:45 Serum or plasma prealbumin measurement (mass/volume) 24.5 % 18.0-37.0 Arterial blood gas measurement - 9 10:15 Blood pCO2 32 mm[Hg] 35-45 Blood pO2 59 mm[Hg] 79-93 Arterial blood bicarbonate measurement (moles/volume) 23 mmol/L 23-27 Arterial blood base excess by calculation -0.1 mmo l/L -2.5-2.5 Arterial blood oxygen saturation measurement 93 % 94-100 * Inhaled oxygen flow rate 28% NRG Arterial blood pH measurement with patient temperature correction 7.47 7.37-7.43 Arterial blood carbon dioxide, total measurement (mole s/volume) 24.3 mmol/L 21.0-31.0 Body site ARTLINE NRG Assessment of wrist artery patency prior to arterial p uncture ART LINE NRG Setting of ventilation mode YES NR G Measurement of body temperature 36.5 NRG Capillary blood glucose measurement by g lucometer (mass/volume) - 03/14/19 11:43 Capillary blood glucose measurement by glucometer (mas s/volume) 243 mg/dL 70-110 Capillary blood glucose measurement by g lucometer (mass/volume) - 03/14/19 15:50 Capillary blood glucose measurement by glucometer (mas s/volume) 234 mg/dL 70-110 Capillary blood glucose measurement by g lucometer (mass/volume) - 03/14/19 20:24 Capillary blood glucose measurement by glucometer (mas s/volume) 232 mg/dL 70-110 Capillary blood glucose measurement by g lucometer (mass/volume) - 03/15/19 00:39 Capillary blood glucose measurement by glucometer (mas s/volume) 220 mg/dL 70-110 Arterial blood gas measurement - 9 03:47 Blood pCO2 36 mm[Hg] 35-45 Blood pO2 110 mm[Hg] 79-93 Arterial blood bicarbonate measurement (moles/volume) 23 mmol/L 23-27 Arterial blood base excess by calculation -0.4 mmo l/L -2.5-2.5 Arterial blood oxygen saturation measurement 99 % 94-100 * Inhaled oxygen flow rate 90% NRG Arterial blood pH measurement with patient temperature correction 7.43 7.37-7.43 Arterial blood carbon dioxide, total measurement (mole s/volume) 24.5 mmol/L 21.0-31.0 Body site RIGHT ARTLINE NRG Assessment of wrist artery patency prior to arterial p uncture ARTLINE NRG Setting of ventilation mode YES NR G Measurement of body temperature 37 NRG Complete blood count (CBC) with automate d white blood cell (WBC) differential - 03/15/19 03:47 Blood leukocytes automated count (number/volume) 12.1 10*3/uL 4.3-11.0 Blood erythrocytes automated count (number/volume) 3.11 10*6/uL 4.35-5.85 Venous blood hemoglobin measurement (mass/volume) 9.4 g/dL 11.5-16.0 Blood hematocrit (volume fraction) 29 % 35-52 Automated erythrocyte mean corpuscular volume 92 [ foz_us] 80-99 Automated erythrocyte mean corpuscular h emoglobin (mass per erythrocyte) 30 pg 25-34 Automated erythrocyte mean corpuscular h emoglobin concentration measurement (mass/volume) 33 g/dL 32-36 Automated erythrocyte distribution width ratio 16. 5 % 10.0- 14.5 Automated blood platelet count (count/volume) 162 10*3/uL 130-400 Automated blood platelet mean volume measurement 9.9 [foz_us] 7.4-10.4 Automated blood neutrophils/100 leukocytes 90 % 42-75 Automated blood lymphocytes/100 leukocytes 3 % 12-44 Blood monocytes/100 leukocytes 7 % 0-12 Automated blood eosinophils/100 leukocytes 0 % 0-10 Automated blood basophils/100 leukocytes 0 % 0-10 Blood neutrophils automated count (number/volume) 10.8 10*3 1.8-7.8 Blood lymphocytes automated count (number/volume) 0.4 10*3 1.0-4.0 Blood monocytes automated count (number/volume) 0. 8 10*3 0.0-1.0 Automated eosinophil count 0.0 10*3/uL 0 .0-0.3 Automated blood basophil count (count/volume) 0.0 10*3/uL 0.0-0.1 Whole blood basic metabolic panel - 12/24 03:47 Serum or plasma sodium measurement (moles/volume) 139 mmol/L 135-145 Serum or plasma potassium measurement (moles/volume) 5.0 mmol/L 3.6-5.0 Serum or plasma chloride measurement (moles/volume) 112 mmol/L 98-107 Carbon dioxide 19 mmol/L 21-32 Serum or plasma anion gap determination (moles/volume) 8 mmol/L 5-14 Serum or plasma urea nitrogen measurement (mass/volume ) 53 mg/dL 7-18 Serum or plasma creatinine measurement (mass/volume) 0.72 mg/dL 0.60-1.30 Serum or plasma urea nitrogen/creatinine mass ratio 74 NRG Serum or plasma creatinine measurement w ith calculation of estimated glomerular filtration rate > NRG Serum or plasma glucose measurement (mass/volume) 204 mg/dL 70-105 Serum or plasma calcium measurement (mass/volume) 6.9 mg/dL 8.5-10.1 Serum or plasma phosphate measurement (m ass/volume) - 03/15/19 03:47 Serum or plasma phosphate measurement (mass/volume) 3.7 mg/dL 2.3-4.7 Magnesium - 03/15/19 03:47 Magnesium 1.8 mg/dL 1.6-2.4 Serum or plasma triglyceride measurement (mass/volume) - 03/15/19 03:47 Serum or plasma triglyceride measurement (mass/volume) 388 mg/dL <150 Serum or plasma lithium measurement (mol es/volume) - 03/15/19 03:47 BNP PT 296.2 pg/mL <100.0 Arterial blood gas measurement - 9 06:05 Blood pCO2 31 mm[Hg] 35-45 Blood pO2 57 mm[Hg] 79-93 Arterial blood bicarbonate measurement (moles/volume) 23 mmol/L 23-27 Arterial blood base excess by calculation -0.4 mmo l/L -2.5-2.5 Arterial blood oxygen saturation measurement 91 % 94-100 * Inhaled oxygen flow rate 30% NRG Arterial blood pH measurement with patient temperature correction 7.48 7.37-7.43 Arterial blood carbon dioxide, total measurement (mole s/volume) 23.8 mmol/L 21.0-31.0 Body site RIGHT ARTLINE NRG Assessment of wrist artery patency prior to arterial p uncture POSITIVE NRG Setting of ventilation mode YES NR G Measurement of body temperature 36.3 NRG Sputum Gram stain - 03/15/19 08:00 Sputum Gram stain No bacteria seen NRG Bacteria identification in bronchial spe cimen by aerobe culture - 03/15/19 08:00 Bacteria identification in bronchial specimen by aerob e culture NG NRG Mycobacterium species detection by organ ism specific culture - 03/15/19 08:00 Fungus culture - 03/15/19 08:00 Capillary blood glucose measurement by g lucometer (mass/volume) - 03/15/19 09:44 Capillary blood glucose measurement by glucometer (mas s/volume) 168 mg/dL 70-110 Arterial blood gas measurement - 9 10:30 Blood pCO2 30 mm[Hg] 35-45 Blood pO2 69 mm[Hg] 79-93 Arterial blood bicarbonate measurement (moles/volume) 24 mmol/L 23-27 Arterial blood base excess by calculation 0.6 mmol /L -2.5-2.5 Arterial blood oxygen saturation measurement 95 % 94-100 * Inhaled oxygen flow rate 35% NRG Arterial blood pH measurement with patient temperature correction 7.51 7.37-7.43 Arterial blood carbon dioxide, total measurement (mole s/volume) 24.4 mmol/L 21.0-31.0 Body site ARTLINE NRG Assessment of wrist artery patency prior to arterial p uncture ART LINE NRG Setting of ventilation mode YES NR G Measurement of body temperature 36.5 NRG Capillary blood glucose measurement by g lucometer (mass/volume) - 03/15/19 11:50 Capillary blood glucose measurement by glucometer (mas s/volume) 171 mg/dL 70-110 Capillary blood glucose measurement by g lucometer (mass/volume) - 03/15/19 16:17 Capillary blood glucose measurement by glucometer (mas s/volume) 168 mg/dL 70-110 Capillary blood glucose measurement by g lucometer (mass/volume) - 03/15/19 20:57 Capillary blood glucose measurement by glucometer (mas s/volume) 130 mg/dL 70-110 Complete blood count (CBC) with automate d white blood cell (WBC) differential - 03/16/19 02:38 Blood leukocytes automated count (number/volume) 16.1 10*3/uL 4.3-11.0 Blood erythrocytes automated count (number/volume) 3.51 10*6/uL 4.35-5.85 Venous blood hemoglobin measurement (mass/volume) 10.7 g/dL 11.5-16.0 Blood hematocrit (volume fraction) 32 % 35-52 Automated erythrocyte mean corpuscular volume 91 [ foz_us] 80-99 Automated erythrocyte mean corpuscular h emoglobin (mass per erythrocyte) 30 pg 25-34 Automated erythrocyte mean corpuscular h emoglobin concentration measurement (mass/volume) 34 g/dL 32-36 Automated erythrocyte distribution width ratio 17. 4 % 10.0- 14.5 Automated blood platelet count (count/volume) 193 10*3/uL 130-400 Automated blood platelet mean volume measurement 10.2 [foz_us] 7.4-10.4 Automated blood neutrophils/100 leukocytes 89 % 42-75 Automated blood lymphocytes/100 leukocytes 3 % 12-44 Blood monocytes/100 leukocytes 7 % 0-12 Automated blood eosinophils/100 leukocytes 0 % 0-10 Automated blood basophils/100 leukocytes 0 % 0-10 Blood neutrophils automated count (number/volume) 14.3 10*3 1.8-7.8 Blood lymphocytes automated count (number/volume) 0.5 10*3 1.0-4.0 Blood monocytes automated count (number/volume) 1. 2 10*3 0.0-1.0 Automated eosinophil count 0.1 10*3/uL 0 .0-0.3 Automated blood basophil count (count/volume) 0.0 10*3/uL 0.0-0.1 Arterial blood gas measurement - 9 02:38 Blood pCO2 33 mm[Hg] 35-45 Blood pO2 67 mm[Hg] 79-93 Arterial blood bicarbonate measurement (moles/volume) 25 mmol/L 23-27 Arterial blood base excess by calculation 1.8 mmol /L -2.5-2.5 Arterial blood oxygen saturation measurement 95 % 94-100 * Inhaled oxygen flow rate 30% NRG Arterial blood pH measurement with patient temperature correction 7.49 7.37-7.43 Arterial blood carbon dioxide, total measurement (mole s/volume) 26.3 mmol/L 21.0-31.0 Body site RIGHT ARTLINE NRG Assessment of wrist artery patency prior to arterial p uncture ARTLINE NRG Setting of ventilation mode NO NR G Measurement of body temperature 35.2 NRG Whole blood basic metabolic panel - 01/24 02:38 Serum or plasma sodium measurement (moles/volume) 144 mmol/L 135-145 Serum or plasma potassium measurement (moles/volume) 4.5 mmol/L 3.6-5.0 Serum or plasma chloride measurement (moles/volume) 113 mmol/L 98-107 Carbon dioxide 23 mmol/L 21-32 Serum or plasma anion gap determination (moles/volume) 8 mmol/L 5-14 Serum or plasma urea nitrogen measurement (mass/volume ) 64 mg/dL 7-18 Serum or plasma creatinine measurement (mass/volume) 0.70 mg/dL 0.60-1.30 Serum or plasma urea nitrogen/creatinine mass ratio 91 NRG Serum or plasma creatinine measurement w ith calculation of estimated glomerular filtration rate > NRG Serum or plasma glucose measurement (mass/volume) 143 mg/dL 70-105 Serum or plasma calcium measurement (mass/volume) 7.2 mg/dL 8.5-10.1 Serum or plasma phosphate measurement (m ass/volume) - 03/16/19 02:38 Serum or plasma phosphate measurement (mass/volume) 4.3 mg/dL 2.3-4.7 Magnesium - 03/16/19 02:38 Magnesium 2.0 mg/dL 1.6-2.4 Serum or plasma triglyceride measurement (mass/volume) - 03/16/19 02:38 Serum or plasma triglyceride measurement (mass/volume) 344 mg/dL <150 Capillary blood glucose measurement by g lucometer (mass/volume) - 03/16/19 04:47 Capillary blood glucose measurement by glucometer (mas s/volume) 150 mg/dL 70-110 Bacterial blood culture - 03/16/19 05:34 Bacterial blood culture NG NRG Bacterial blood culture - 03/16/19 05:38 Bacterial blood culture NG NRG Bacterial blood culture - 03/16/19 05:40 Bacterial blood culture NG NRG C DIFFICILE AG + TOXIN A/B. - 03/16/19 0 7:06 RESULTS NEGATIVE FOR ANTIGEN AND TOXIN A/B NRG Bacterial urine culture - 03/16/19 07:06 Bacterial urine culture NG NRG Gram stain microscopy - 03/16/19 07:06 Gram stain microscopy No bacteria seen NRG Bacterial body fluid culture - 03/16/19 07:06 FREE TEXT EXTERNAL SUSCEPTIBILITY REPORTED 14:30 NRG QUANTITY OF GROWTH FEW NRG FREE TEXT ENTRY 2 MULTI DRUG RESISTANT ORGANISM; NRG FREE TEXT ENTRY 3 CONTACT PRECAUTIONS N RG Bacterial body fluid culture [id number] NRG Dirithromycin susceptibility test by dis k diffusion - 03/16/19 07:06 Trimethoprim/sulfamethoxazole susceptibi lity test by minimum inhibitoryconcentration <= NRG Levofloxacin susceptibility test by minimum inhibitory concentration <= NRG Piperacillin/tazobactam susceptibility t est by minimum inhibitory concentration R NRG Capillary blood glucose measurement by g lucometer (mass/volume) - 03/16/19 08:10 Capillary blood glucose measurement by glucometer (mas s/volume) 143 mg/dL 70-110 Capillary blood glucose measurement by g lucometer (mass/volume) - 03/16/19 11:48 Capillary blood glucose measurement by glucometer (mas s/volume) 136 mg/dL 70-110 Capillary blood glucose measurement by g lucometer (mass/volume) - 03/16/19 15:51 Capillary blood glucose measurement by glucometer (mas s/volume) 109 mg/dL 70-110 Capillary blood glucose measurement by g lucometer (mass/volume) - 03/16/19 20:02 Capillary blood glucose measurement by glucometer (mas s/volume) 107 mg/dL 70-110 Capillary blood glucose measurement by g lucometer (mass/volume) - 03/17/19 00:16 Capillary blood glucose measurement by glucometer (mas s/volume) 129 mg/dL 70-110 Complete blood count (CBC) with automate d white blood cell (WBC) differential - 03/17/19 03:10 Blood leukocytes automated count (number/volume) 15.3 10*3/uL 4.3-11.0 Blood erythrocytes automated count (number/volume) 3.34 10*6/uL 4.35-5.85 Venous blood hemoglobin measurement (mass/volume) 10.0 g/dL 11.5-16.0 Blood hematocrit (volume fraction) 31 % 35-52 Automated erythrocyte mean corpuscular volume 92 [ foz_us] 80-99 Automated erythrocyte mean corpuscular h emoglobin (mass per erythrocyte) 30 pg 25-34 Automated erythrocyte mean corpuscular h emoglobin concentration measurement (mass/volume) 33 g/dL 32-36 Automated erythrocyte distribution width ratio 17. 8 % 10.0- 14.5 Automated blood platelet count (count/volume) 178 10*3/uL 130-400 Automated blood platelet mean volume measurement 10.5 [foz_us] 7.4-10.4 Automated blood neutrophils/100 leukocytes 89 % 42-75 Automated blood lymphocytes/100 leukocytes 3 % 12-44 Blood monocytes/100 leukocytes 8 % 0-12 Automated blood eosinophils/100 leukocytes 0 % 0-10 Automated blood basophils/100 leukocytes 0 % 0-10 Blood neutrophils automated count (number/volume) 13.6 10*3 1.8-7.8 Blood lymphocytes automated count (number/volume) 0.5 10*3 1.0-4.0 Blood monocytes automated count (number/volume) 1. 2 10*3 0.0-1.0 Automated eosinophil count 0.0 10*3/uL 0 .0-0.3 Automated blood basophil count (count/volume) 0.0 10*3/uL 0.0-0.1 Arterial blood gas measurement - 9 03:10 Blood pCO2 33 mm[Hg] 35-45 Blood pO2 59 mm[Hg] 79-93 Arterial blood bicarbonate measurement (moles/volume) 27 mmol/L 23-27 Arterial blood base excess by calculation 4.2 mmol /L -2.5-2.5 Arterial blood oxygen saturation measurement 93 % 94-100 * Inhaled oxygen flow rate 21% BIPAP NR G Arterial blood pH measurement with patient temperature correction 7.53 7.37-7.43 Arterial blood carbon dioxide, total measurement (mole s/volume) 28.3 mmol/L 21.0-31.0 Body site RIGHT ARTLINE NRG Assessment of wrist artery patency prior to arterial p uncture ARTLINE NRG Setting of ventilation mode NO NR G Measurement of body temperature 35.7 NRG Whole blood basic metabolic panel - 03/08 03:10 Serum or plasma sodium measurement (moles/volume) 149 mmol/L 135-145 Serum or plasma potassium measurement (moles/volume) 4.2 mmol/L 3.6-5.0 Serum or plasma chloride measurement (moles/volume) 113 mmol/L 98-107 Carbon dioxide 23 mmol/L 21-32 Serum or plasma anion gap determination (moles/volume) 13 mmol/L 5-14 Serum or plasma urea nitrogen measurement (mass/volume ) 66 mg/dL 7-18 Serum or plasma creatinine measurement (mass/volume) 0.72 mg/dL 0.60-1.30 Serum or plasma urea nitrogen/creatinine mass ratio 92 NRG Serum or plasma creatinine measurement w ith calculation of estimated glomerular filtration rate > NRG Serum or plasma glucose measurement (mass/volume) 164 mg/dL 70-105 Serum or plasma calcium measurement (mass/volume) 7.4 mg/dL 8.5-10.1 Serum or plasma phosphate measurement (m ass/volume) - 03/17/19 03:10 Serum or plasma phosphate measurement (mass/volume) 4.6 mg/dL 2.3-4.7 Magnesium - 03/17/19 03:10 Magnesium 2.0 mg/dL 1.6-2.4 Capillary blood glucose measurement by g lucometer (mass/volume) - 03/17/19 07:32 Capillary blood glucose measurement by glucometer (mas s/volume) 172 mg/dL 70-110 Capillary blood glucose measurement by g lucometer (mass/volume) - 03/17/19 11:48 Capillary blood glucose measurement by glucometer (mas s/volume) 147 mg/dL 70-110 Capillary blood glucose measurement by g lucometer (mass/volume) - 03/17/19 16:57 Capillary blood glucose measurement by glucometer (mas s/volume) 127 mg/dL 70-110 Capillary blood glucose measurement by g lucometer (mass/volume) - 03/17/19 19:49 Capillary blood glucose measurement by glucometer (mas s/volume) 146 mg/dL 70-110 Capillary blood glucose measurement by g lucometer (mass/volume) - 03/18/19 00:37 Capillary blood glucose measurement by glucometer (mas s/volume) 167 mg/dL 70-110 Complete blood count (CBC) with automate d white blood cell (WBC) differential - 03/18/19 03:25 Blood leukocytes automated count (number/volume) 14.5 10*3/uL 4.3-11.0 Blood erythrocytes automated count (number/volume) 3.17 10*6/uL 4.35-5.85 Venous blood hemoglobin measurement (mass/volume) 9.7 g/dL 11.5-16.0 Blood hematocrit (volume fraction) 30 % 35-52 Automated erythrocyte mean corpuscular volume 94 [ foz_us] 80-99 Automated erythrocyte mean corpuscular h emoglobin (mass per erythrocyte) 31 pg 25-34 Automated erythrocyte mean corpuscular h emoglobin concentration measurement (mass/volume) 32 g/dL 32-36 Automated erythrocyte distribution width ratio 18. 5 % 10.0- 14.5 Automated blood platelet count (count/volume) 187 10*3/uL 130-400 Automated blood platelet mean volume measurement 10.6 [foz_us] 7.4-10.4 Automated blood neutrophils/100 leukocytes 88 % 42-75 Automated blood lymphocytes/100 leukocytes 4 % 12-44 Blood monocytes/100 leukocytes 8 % 0-12 Automated blood eosinophils/100 leukocytes 1 % 0-10 Automated blood basophils/100 leukocytes 0 % 0-10 Blood neutrophils automated count (number/volume) 12.7 10*3 1.8-7.8 Blood lymphocytes automated count (number/volume) 0.6 10*3 1.0-4.0 Blood monocytes automated count (number/volume) 1. 1 10*3 0.0-1.0 Automated eosinophil count 0.1 10*3/uL 0 .0-0.3 Automated blood basophil count (count/volume) 0.0 10*3/uL 0.0-0.1 Arterial blood gas measurement - 9 03:25 Blood pCO2 35 mm[Hg] 35-45 Blood pO2 61 mm[Hg] 79-93 Arterial blood bicarbonate measurement (moles/volume) 27 mmol/L 23-27 Arterial blood base excess by calculation 4.0 mmol /L -2.5-2.5 Arterial blood oxygen saturation measurement 93 % 94-100 * Inhaled oxygen flow rate N NRG Arterial blood pH measurement with patient temperature correction 7.50 7.37-7.43 Arterial blood carbon dioxide, total measurement (mole s/volume) 28.5 mmol/L 21.0-31.0 Body site RIGHT RADIAL NRG Assessment of wrist artery patency prior to arterial p uncture [place].21% NRG Setting of ventilation mode NO NR G Measurement of body temperature 36.1 NRG Whole blood basic metabolic panel - 03/08 05/26 03:25 Serum or plasma sodium measurement (moles/volume) 153 mmol/L 135-145 Serum or plasma potassium measurement (moles/volume) 3.9 mmol/L 3.6-5.0 Serum or plasma chloride measurement (moles/volume) 118 mmol/L 98-107 Carbon dioxide 24 mmol/L 21-32 Serum or plasma anion gap determination (moles/volume) 11 mmol/L 5-14 Serum or plasma urea nitrogen measurement (mass/volume ) 59 mg/dL 7-18 Serum or plasma creatinine measurement (mass/volume) 0.74 mg/dL 0.60-1.30 Serum or plasma urea nitrogen/creatinine mass ratio 80 NRG Serum or plasma creatinine measurement w ith calculation of estimated glomerular filtration rate > NRG Serum or plasma glucose measurement (mass/volume) 182 mg/dL 70-105 Serum or plasma calcium measurement (mass/volume) 7.5 mg/dL 8.5-10.1 Serum or plasma phosphate measurement (m ass/volume) - 03/18/19 03:25 Serum or plasma phosphate measurement (mass/volume) 3.8 mg/dL 2.3-4.7 Magnesium - 03/18/19 03:25 Magnesium 2.2 mg/dL 1.6-2.4 Capillary blood glucose measurement by g lucometer (mass/volume) - 03/18/19 08:32 Capillary blood glucose measurement by glucometer (mas s/volume) 145 mg/dL 70-110 Capillary blood glucose measurement by g lucometer (mass/volume) - 03/18/19 11:38 Capillary blood glucose measurement by glucometer (mas s/volume) 152 mg/dL 70-110 Bacterial catheter tip culture - 9 14:50 QUANTITY OF GROWTH . NRG FTX;REPORTABLE 92 COLONIES, SUSCEPTIBILITY REPORTE D NRG FREE TEXT ENTRY 2 11-16(>15 COLONIES SUGGESTS SKIN SITE NRG FREE TEXT ENTRY 3 INFECTION) NRG Bacterial catheter tip culture [id number] NRG Dirithromycin susceptibility test by dis k diffusion - 03/18/19 14:50 Oxacillin susceptibility test by minimum inhibitory co ncentration > NRG Clindamycin susceptibility test by minimum inhibitory concentration > NRG Erythromycin susceptibility test by minimum inhibitory concentration > NRG Vancomycin susceptibility test by minimum inhibitory c oncentration 1 NRG Levofloxacin susceptibility test by minimum inhibitory concentration > NRG Rifampin susceptibility test by minimum inhibitory con centration <= NRG Cefazolin susceptibility test by minimum inhibitory co ncentration R NRG Linezolid susceptibility test by minimum inhibitory co ncentration 4 NRG Penicillin G susceptibility test by minimum inhibitory concentration > NRG Moxifloxacin susceptibility test by minimum inhibitory concentration 1 NRG Daptomycin susc ESTIVEN <= NRG Minocycline susc ESTIVEN 2 NRG Capillary blood glucose measurement by g lucometer (mass/volume) - 03/18/19 16:27 Capillary blood glucose measurement by glucometer (mas s/volume) 129 mg/dL 70-110 Capillary blood glucose measurement by g lucometer (mass/volume) - 03/18/19 20:04 Capillary blood glucose measurement by glucometer (mas s/volume) 151 mg/dL 70-110 Capillary blood glucose measurement by g lucometer (mass/volume) - 03/18/19 22:54 Capillary blood glucose measurement by glucometer (mas s/volume) 137 mg/dL 70-110 Complete blood count (CBC) with automate d white blood cell (WBC) differential - 03/19/19 02:35 Blood leukocytes automated count (number/volume) 14.3 10*3/uL 4.3-11.0 Blood erythrocytes automated count (number/volume) 2.94 10*6/uL 4.35-5.85 Venous blood hemoglobin measurement (mass/volume) 8.9 g/dL 11.5-16.0 Blood hematocrit (volume fraction) 31 % 35-52 Automated erythrocyte mean corpuscular volume 105 [foz_us] 80-99 Automated erythrocyte mean corpuscular h emoglobin (mass per erythrocyte) 30 pg 25-34 Automated erythrocyte mean corpuscular h emoglobin concentration measurement (mass/volume) 29 g/dL 32-36 Automated erythrocyte distribution width ratio 19. 7 % 10.0- 14.5 Automated blood platelet count (count/volume) 181 10*3/uL 130-400 Automated blood platelet mean volume measurement 10.4 [foz_us] 7.4-10.4 Automated blood neutrophils/100 leukocytes 86 % 42-75 Automated blood lymphocytes/100 leukocytes 4 % 12-44 Blood monocytes/100 leukocytes 8 % 0-12 Automated blood eosinophils/100 leukocytes 1 % 0-10 Automated blood basophils/100 leukocytes 0 % 0-10 Blood neutrophils automated count (number/volume) 12.4 10*3 1.8-7.8 Blood lymphocytes automated count (number/volume) 0.6 10*3 1.0-4.0 Blood monocytes automated count (number/volume) 1. 2 10*3 0.0-1.0 Automated eosinophil count 0.2 10*3/uL 0 .0-0.3 Automated blood basophil count (count/volume) 0.0 10*3/uL 0.0-0.1 Whole blood basic metabolic panel - 03/08 06/26 02:35 Serum or plasma sodium measurement (moles/volume) 134 mmol/L 135-145 Serum or plasma potassium measurement (moles/volume) 9.1 mmol/L 3.6-5.0 Serum or plasma chloride measurement (moles/volume) 106 mmol/L 98-107 Carbon dioxide 21 mmol/L 21-32 Serum or plasma anion gap determination (moles/volume) 7 mmol/L 5-14 Serum or plasma urea nitrogen measurement (mass/volume ) 52 mg/dL 7-18 Serum or plasma creatinine measurement (mass/volume) 1.40 mg/dL 0.60-1.30 Serum or plasma urea nitrogen/creatinine mass ratio 37 NRG Serum or plasma creatinine measurement w ith calculation of estimated glomerular filtration rate 37 NRG Serum or plasma glucose measurement (mass/volume) 1962 mg/dL 70-105 Serum or plasma calcium measurement (mass/volume) 7.2 mg/dL 8.5-10.1 Serum or plasma phosphate measurement (m ass/volume) - 03/19/19 02:35 Serum or plasma phosphate measurement (mass/volume) 11.5 mg/dL 2.3-4.7 Magnesium - 03/19/19 02:35 Magnesium 3.1 mg/dL 1.6-2.4 Manual absolute plasma cell count - 03/08 06/26 02:35 Blood monocytes/100 leukocytes 6 % NRG Manual blood segmented neutrophils/100 leukocytes 92 % NRG Manual blood lymphocytes/100 leukocytes 2 % NRG Blood toxic granules detection by light microscopy 1+ NRG Whole blood basic metabolic panel - 03/08 06/26 04:05 Serum or plasma sodium measurement (moles/volume) 152 mmol/L 135-145 Serum or plasma potassium measurement (moles/volume) 4.0 mmol/L 3.6-5.0 Serum or plasma chloride measurement (moles/volume) 118 mmol/L 98-107 Carbon dioxide 27 mmol/L 21-32 Serum or plasma anion gap determination (moles/volume) 7 mmol/L 5-14 Serum or plasma urea nitrogen measurement (mass/volume ) 58 mg/dL 7-18 Serum or plasma creatinine measurement (mass/volume) 0.76 mg/dL 0.60-1.30 Serum or plasma urea nitrogen/creatinine mass ratio 76 NRG Serum or plasma creatinine measurement w ith calculation of estimated glomerular filtration rate > NRG Serum or plasma glucose measurement (mass/volume) 172 mg/dL 70-105 Serum or plasma calcium measurement (mass/volume) 7.6 mg/dL 8.5-10.1 Serum or plasma phosphate measurement (m ass/volume) - 03/19/19 04:05 Serum or plasma phosphate measurement (mass/volume) 3.5 mg/dL 2.3-4.7 Magnesium - 03/19/19 04:05 Magnesium 1.9 mg/dL 1.6-2.4 Capillary blood glucose measurement by g lucometer (mass/volume) - 03/19/19 07:18 Capillary blood glucose measurement by glucometer (mas s/volume) 200 mg/dL 70-110 Capillary blood glucose measurement by g lucometer (mass/volume) - 03/19/19 11:13 Capillary blood glucose measurement by glucometer (mas s/volume) 172 mg/dL 70-110 Capillary blood glucose measurement by g lucometer (mass/volume) - 04/18/19 19:16 Capillary blood glucose measurement by glucometer (mas s/volume) 135 mg/dL 70-110 Capillary blood glucose measurement by g lucometer (mass/volume) - 04/19/19 00:46 Capillary blood glucose measurement by glucometer (mas s/volume) 139 mg/dL 70-110 Complete blood count (CBC) with automate d white blood cell (WBC) differential - 04/19/19 05:30 Blood leukocytes automated count (number/volume) 9.5 10*3/uL 4.3-11.0 Blood erythrocytes automated count (number/volume) 2.72 10*6/uL 4.35-5.85 Venous blood hemoglobin measurement (mass/volume) 8.4 g/dL 11.5-16.0 Blood hematocrit (volume fraction) 28 % 35-52 Automated erythrocyte mean corpuscular volume 104 [foz_us] 80-99 Automated erythrocyte mean corpuscular h emoglobin (mass per erythrocyte) 31 pg 25-34 Automated erythrocyte mean corpuscular h emoglobin concentration measurement (mass/volume) 30 g/dL 32-36 Automated erythrocyte distribution width ratio 18. 7 % 10.0- 14.5 Automated blood platelet count (count/volume) 240 10*3/uL 130-400 Automated blood platelet mean volume measurement 10.5 [foz_us] 7.4-10.4 Automated blood neutrophils/100 leukocytes 82 % 42-75 Automated blood lymphocytes/100 leukocytes 11 % 12-44 Blood monocytes/100 leukocytes 7 % 0-12 Automated blood eosinophils/100 leukocytes 1 % 0-10 Automated blood basophils/100 leukocytes 0 % 0-10 Blood neutrophils automated count (number/volume) 7.8 10*3 1.8-7.8 Blood lymphocytes automated count (number/volume) 1.0 10*3 1.0-4.0 Blood monocytes automated count (number/volume) 0. 6 10*3 0.0-1.0 Automated eosinophil count 0.1 10*3/uL 0 .0-0.3 Automated blood basophil count (count/volume) 0.0 10*3/uL 0.0-0.1 Comprehensive metabolic panel - 04/19/19 05:30 Serum or plasma sodium measurement (moles/volume) 146 mmol/L 135-145 Serum or plasma potassium measurement (moles/volume) 4.3 mmol/L 3.6-5.0 Serum or plasma chloride measurement (moles/volume) 114 mmol/L 98-107 Carbon dioxide 24 mmol/L 21-32 Serum or plasma anion gap determination (moles/volume) 8 mmol/L 5-14 Serum or plasma urea nitrogen measurement (mass/volume ) 54 mg/dL 7-18 Serum or plasma creatinine measurement (mass/volume) 0.65 mg/dL 0.60-1.30 Serum or plasma urea nitrogen/creatinine mass ratio 83 NRG Serum or plasma creatinine measurement w ith calculation of estimated glomerular filtration rate > NRG Serum or plasma glucose measurement (mass/volume) 160 mg/dL 70-105 Serum or plasma calcium measurement (mass/volume) 8.4 mg/dL 8.5-10.1 Serum or plasma total bilirubin measurement (mass/volu me) 3.2 mg/dL 0.1-1.0 Serum or plasma alkaline phosphatase lilliana surement (enzymatic activity/volume) 134 U/L 40-136 Serum or plasma aspartate aminotransfera se measurement (enzymatic activity/volume) 80 U/L 5-34 Serum or plasma alanine aminotransferase measurement (enzymatic activity/volume) 57 U/L 0-55 Serum or plasma protein measurement (mass/volume) 5.6 g/dL 6.4-8.2 Serum or plasma albumin measurement (mass/volume) 1.9 g/dL 3.2-4.5 CALCIUM CORRECTED 10.1 mg/dL 8.5-10.1 Serum or plasma phosphate measurement (m ass/volume) - 04/19/19 05:30 Serum or plasma phosphate measurement (mass/volume) 4.7 mg/dL 2.3-4.7 Magnesium - 04/19/19 05:30 Magnesium 1.7 mg/dL 1.6-2.4 Serum or plasma triglyceride measurement (mass/volume) - 04/19/19 05:30 Serum or plasma triglyceride measurement (mass/volume) 224 mg/dL <150 IRON TEST - 04/19/19 05:30 Serum or plasma iron measurement (mass/volume) 36 % 35-180 Capillary blood glucose measurement by g lucometer (mass/volume) - 04/19/19 05:33 Capillary blood glucose measurement by glucometer (mas s/volume) 165 mg/dL 70-110 Capillary blood glucose measurement by g lucometer (mass/volume) - 04/19/19 13:34 Capillary blood glucose measurement by glucometer (mas s/volume) 151 mg/dL 70-110 Capillary blood glucose measurement by g lucometer (mass/volume) - 04/19/19 18:06 Capillary blood glucose measurement by glucometer (mas s/volume) 94 mg/dL 70-110 Capillary blood glucose measurement by g lucometer (mass/volume) - 04/20/19 00:02 Capillary blood glucose measurement by glucometer (mas s/volume) 231 mg/dL 70-110 Comprehensive metabolic panel - 04/20/19 05:00 Serum or plasma sodium measurement (moles/volume) 147 mmol/L 135-145 Serum or plasma potassium measurement (moles/volume) 4.4 mmol/L 3.6-5.0 Serum or plasma chloride measurement (moles/volume) 115 mmol/L 98-107 Carbon dioxide 24 mmol/L 21-32 Serum or plasma anion gap determination (moles/volume) 8 mmol/L 5-14 Serum or plasma urea nitrogen measurement (mass/volume ) 51 mg/dL 7-18 Serum or plasma creatinine measurement (mass/volume) 0.69 mg/dL 0.60-1.30 Serum or plasma urea nitrogen/creatinine mass ratio 74 NRG Serum or plasma creatinine measurement w ith calculation of estimated glomerular filtration rate > NRG Serum or plasma glucose measurement (mass/volume) 277 mg/dL 70-105 Serum or plasma calcium measurement (mass/volume) 8.6 mg/dL 8.5-10.1 Serum or plasma total bilirubin measurement (mass/volu me) 3.4 mg/dL 0.1-1.0 Serum or plasma alkaline phosphatase lilliana surement (enzymatic activity/volume) 139 U/L 40-136 Serum or plasma aspartate aminotransfera se measurement (enzymatic activity/volume) 92 U/L 5-34 Serum or plasma alanine aminotransferase measurement (enzymatic activity/volume) 71 U/L 0-55 Serum or plasma protein measurement (mass/volume) 6.2 g/dL 6.4-8.2 Serum or plasma albumin measurement (mass/volume) 2.1 g/dL 3.2-4.5 CALCIUM CORRECTED 10.1 mg/dL 8.5-10.1 Serum or plasma phosphate measurement (m ass/volume) - 04/20/19 05:00 Serum or plasma phosphate measurement (mass/volume) 3.9 mg/dL 2.3-4.7 Magnesium - 04/20/19 05:00 Magnesium 1.8 mg/dL 1.6-2.4 Capillary blood glucose measurement by g lucometer (mass/volume) - 04/20/19 05:54 Capillary blood glucose measurement by glucometer (mas s/volume) 281 mg/dL 70-110 Capillary blood glucose measurement by g lucometer (mass/volume) - 04/20/19 12:13 Capillary blood glucose measurement by glucometer (mas s/volume) 164 mg/dL 70-110 Capillary blood glucose measurement by g lucometer (mass/volume) - 04/20/19 17:56 Capillary blood glucose measurement by glucometer (mas s/volume) 110 mg/dL 70-110 Capillary blood glucose measurement by g lucometer (mass/volume) - 04/20/19 23:46 Capillary blood glucose measurement by glucometer (mas s/volume) 202 mg/dL 70-110 Comprehensive metabolic panel - 04/21/19 05:30 Serum or plasma sodium measurement (moles/volume) 148 mmol/L 135-145 Serum or plasma potassium measurement (moles/volume) 4.4 mmol/L 3.6-5.0 Serum or plasma chloride measurement (moles/volume) 119 mmol/L 98-107 Carbon dioxide 21 mmol/L 21-32 Serum or plasma anion gap determination (moles/volume) 8 mmol/L 5-14 Serum or plasma urea nitrogen measurement (mass/volume ) 51 mg/dL 7-18 Serum or plasma creatinine measurement (mass/volume) 0.66 mg/dL 0.60-1.30 Serum or plasma urea nitrogen/creatinine mass ratio 77 NRG Serum or plasma creatinine measurement w ith calculation of estimated glomerular filtration rate > NRG Serum or plasma glucose measurement (mass/volume) 191 mg/dL 70-105 Serum or plasma calcium measurement (mass/volume) 8.3 mg/dL 8.5-10.1 Serum or plasma total bilirubin measurement (mass/volu me) 3.3 mg/dL 0.1-1.0 Serum or plasma alkaline phosphatase lilliana surement (enzymatic activity/volume) 146 U/L 40-136 Serum or plasma aspartate aminotransfera se measurement (enzymatic activity/volume) 86 U/L 5-34 Serum or plasma alanine aminotransferase measurement (enzymatic activity/volume) 72 U/L 0-55 Serum or plasma protein measurement (mass/volume) 5.9 g/dL 6.4-8.2 Serum or plasma albumin measurement (mass/volume) 2.0 g/dL 3.2-4.5 CALCIUM CORRECTED 9.9 mg/dL 8.5-10.1 Serum or plasma phosphate measurement (m ass/volume) - 04/21/19 05:30 Serum or plasma phosphate measurement (mass/volume) 4.1 mg/dL 2.3-4.7 Magnesium - 04/21/19 05:30 Magnesium 1.8 mg/dL 1.6-2.4 Capillary blood glucose measurement by g lucometer (mass/volume) - 04/21/19 05:32 Capillary blood glucose measurement by glucometer (mas s/volume) 181 mg/dL 70-110 Capillary blood glucose measurement by g lucometer (mass/volume) - 04/21/19 11:45 Capillary blood glucose measurement by glucometer (mas s/volume) 162 mg/dL 70-110 Capillary blood glucose measurement by g lucometer (mass/volume) - 04/21/19 18:00 Capillary blood glucose measurement by glucometer (mas s/volume) 97 mg/dL 70-110 Capillary blood glucose measurement by g lucometer (mass/volume) - 04/22/19 00:05 Capillary blood glucose measurement by glucometer (mas s/volume) 196 mg/dL 70-110 Capillary blood glucose measurement by g lucometer (mass/volume) - 04/22/19 05:34 Capillary blood glucose measurement by glucometer (mas s/volume) 203 mg/dL 70-110 Complete blood count (CBC) with automate d white blood cell (WBC) differential - 04/22/19 05:50 Blood leukocytes automated count (number/volume) 8.7 10*3/uL 4.3-11.0 Blood erythrocytes automated count (number/volume) 2.82 10*6/uL 4.35-5.85 Venous blood hemoglobin measurement (mass/volume) 8.9 g/dL 11.5-16.0 Blood hematocrit (volume fraction) 30 % 35-52 Automated erythrocyte mean corpuscular volume 107 [foz_us] 80-99 Automated erythrocyte mean corpuscular h emoglobin (mass per erythrocyte) 32 pg 25-34 Automated erythrocyte mean corpuscular h emoglobin concentration measurement (mass/volume) 30 g/dL 32-36 Automated erythrocyte distribution width ratio 17. 9 % 10.0- 14.5 Automated blood platelet count (count/volume) 247 10*3/uL 130-400 Automated blood platelet mean volume measurement 11.3 [foz_us] 7.4-10.4 Automated blood neutrophils/100 leukocytes 83 % 42-75 Automated blood lymphocytes/100 leukocytes 8 % 12-44 Blood monocytes/100 leukocytes 8 % 0-12 Automated blood eosinophils/100 leukocytes 1 % 0-10 Automated blood basophils/100 leukocytes 0 % 0-10 Blood neutrophils automated count (number/volume) 7.2 10*3 1.8-7.8 Blood lymphocytes automated count (number/volume) 0.7 10*3 1.0-4.0 Blood monocytes automated count (number/volume) 0. 7 10*3 0.0-1.0 Automated eosinophil count 0.1 10*3/uL 0 .0-0.3 Automated blood basophil count (count/volume) 0.0 10*3/uL 0.0-0.1 Comprehensive metabolic panel - 04/22/19 05:50 Serum or plasma sodium measurement (moles/volume) 146 mmol/L 135-145 Serum or plasma potassium measurement (moles/volume) 4.7 mmol/L 3.6-5.0 Serum or plasma chloride measurement (moles/volume) 118 mmol/L 98-107 Carbon dioxide 22 mmol/L 21-32 Serum or plasma anion gap determination (moles/volume) 6 mmol/L 5-14 Serum or plasma urea nitrogen measurement (mass/volume ) 48 mg/dL 7-18 Serum or plasma creatinine measurement (mass/volume) 0.64 mg/dL 0.60-1.30 Serum or plasma urea nitrogen/creatinine mass ratio 75 NRG Serum or plasma creatinine measurement w ith calculation of estimated glomerular filtration rate > NRG Serum or plasma glucose measurement (mass/volume) 206 mg/dL 70-105 Serum or plasma calcium measurement (mass/volume) 8.5 mg/dL 8.5-10.1 Serum or plasma total bilirubin measurement (mass/volu me) 3.5 mg/dL 0.1-1.0 Serum or plasma alkaline phosphatase lilliana surement (enzymatic activity/volume) 153 U/L 40-136 Serum or plasma aspartate aminotransfera se measurement (enzymatic activity/volume) 85 U/L 5-34 Serum or plasma alanine aminotransferase measurement (enzymatic activity/volume) 74 U/L 0-55 Serum or plasma protein measurement (mass/volume) 6.1 g/dL 6.4-8.2 Serum or plasma albumin measurement (mass/volume) 2.1 g/dL 3.2-4.5 CALCIUM CORRECTED 10.0 mg/dL 8.5-10.1 Serum or plasma phosphate measurement (m ass/volume) - 04/22/19 05:50 Serum or plasma phosphate measurement (mass/volume) 3.3 mg/dL 2.3-4.7 Magnesium - 04/22/19 05:50 Magnesium 1.8 mg/dL 1.6-2.4 Capillary blood glucose measurement by g lucometer (mass/volume) - 04/22/19 05:59 Capillary blood glucose measurement by glucometer (mas s/volume) 201 mg/dL 70-110 Capillary blood glucose measurement by g lucometer (mass/volume) - 04/22/19 12:16 Capillary blood glucose measurement by glucometer (mas s/volume) 156 mg/dL 70-110 Capillary blood glucose measurement by g lucometer (mass/volume) - 04/22/19 16:55 Capillary blood glucose measurement by glucometer (mas s/volume) 118 mg/dL 70-110 Capillary blood glucose measurement by g lucometer (mass/volume) - 04/23/19 00:09 Capillary blood glucose measurement by glucometer (mas s/volume) 233 mg/dL 70-110 Comprehensive metabolic panel - 04/23/19 05:15 Serum or plasma sodium measurement (moles/volume) 143 mmol/L 135-145 Serum or plasma potassium measurement (moles/volume) 4.8 mmol/L 3.6-5.0 Serum or plasma chloride measurement (moles/volume) 117 mmol/L 98-107 Carbon dioxide 18 mmol/L 21-32 Serum or plasma anion gap determination (moles/volume) 8 mmol/L 5-14 Serum or plasma urea nitrogen measurement (mass/volume ) 48 mg/dL 7-18 Serum or plasma creatinine measurement (mass/volume) 0.68 mg/dL 0.60-1.30 Serum or plasma urea nitrogen/creatinine mass ratio 71 NRG Serum or plasma creatinine measurement w ith calculation of estimated glomerular filtration rate > NRG Serum or plasma glucose measurement (mass/volume) 192 mg/dL 70-105 Serum or plasma calcium measurement (mass/volume) 8.4 mg/dL 8.5-10.1 Serum or plasma total bilirubin measurement (mass/volu me) 3.9 mg/dL 0.1-1.0 Serum or plasma alkaline phosphatase lilliana surement (enzymatic activity/volume) 150 U/L 40-136 Serum or plasma aspartate aminotransfera se measurement (enzymatic activity/volume) 77 U/L 5-34 Serum or plasma alanine aminotransferase measurement (enzymatic activity/volume) 73 U/L 0-55 Serum or plasma protein measurement (mass/volume) 6.3 g/dL 6.4-8.2 Serum or plasma albumin measurement (mass/volume) 2.1 g/dL 3.2-4.5 CALCIUM CORRECTED 9.9 mg/dL 8.5-10.1 Serum or plasma phosphate measurement (m ass/volume) - 04/23/19 05:15 Serum or plasma phosphate measurement (mass/volume) 3.3 mg/dL 2.3-4.7 Magnesium - 04/23/19 05:15 Magnesium 1.7 mg/dL 1.6-2.4 Capillary blood glucose measurement by g lucometer (mass/volume) - 04/23/19 05:16 Capillary blood glucose measurement by glucometer (mas s/volume) 191 mg/dL 70-110 Capillary blood glucose measurement by g lucometer (mass/volume) - 04/23/19 11:44 Capillary blood glucose measurement by glucometer (mas s/volume) 174 mg/dL 70-110 Capillary blood glucose measurement by g lucometer (mass/volume) - 04/23/19 16:24 Capillary blood glucose measurement by glucometer (mas s/volume) 129 mg/dL 70-110 Capillary blood glucose measurement by g lucometer (mass/volume) - 04/24/19 00:00 Capillary blood glucose measurement by glucometer (mas s/volume) 176 mg/dL 70-110 Capillary blood glucose measurement by g lucometer (mass/volume) - 04/24/19 05:47 Capillary blood glucose measurement by glucometer (mas s/volume) 200 mg/dL 70-110 Comprehensive metabolic panel - 04/24/19 06:00 Serum or plasma sodium measurement (moles/volume) 143 mmol/L 135-145 Serum or plasma potassium measurement (moles/volume) 4.9 mmol/L 3.6-5.0 Serum or plasma chloride measurement (moles/volume) 115 mmol/L 98-107 Carbon dioxide 20 mmol/L 21-32 Serum or plasma anion gap determination (moles/volume) 8 mmol/L 5-14 Serum or plasma urea nitrogen measurement (mass/volume ) 53 mg/dL 7-18 Serum or plasma creatinine measurement (mass/volume) 0.65 mg/dL 0.60-1.30 Serum or plasma urea nitrogen/creatinine mass ratio 82 NRG Serum or plasma creatinine measurement w ith calculation of estimated glomerular filtration rate > NRG Serum or plasma glucose measurement (mass/volume) 199 mg/dL 70-105 Serum or plasma calcium measurement (mass/volume) 8.6 mg/dL 8.5-10.1 Serum or plasma total bilirubin measurement (mass/volu me) 3.7 mg/dL 0.1-1.0 Serum or plasma alkaline phosphatase lilliana surement (enzymatic activity/volume) 138 U/L 40-136 Serum or plasma aspartate aminotransfera se measurement (enzymatic activity/volume) 75 U/L 5-34 Serum or plasma alanine aminotransferase measurement (enzymatic activity/volume) 70 U/L 0-55 Serum or plasma protein measurement (mass/volume) 6.0 g/dL 6.4-8.2 Serum or plasma albumin measurement (mass/volume) 2.0 g/dL 3.2-4.5 CALCIUM CORRECTED 10.2 mg/dL 8.5-10.1 Serum or plasma phosphate measurement (m ass/volume) - 04/24/19 06:00 Serum or plasma phosphate measurement (mass/volume) 3.8 mg/dL 2.3-4.7 Magnesium - 04/24/19 06:00 Magnesium 1.9 mg/dL 1.6-2.4 Capillary blood glucose measurement by g lucometer (mass/volume) - 04/24/19 11:51 Capillary blood glucose measurement by glucometer (mas s/volume) 137 mg/dL 70-110 Capillary blood glucose measurement by g lucometer (mass/volume) - 04/24/19 17:12 Capillary blood glucose measurement by glucometer (mas s/volume) 99 mg/dL 70-110 Capillary blood glucose measurement by g lucometer (mass/volume) - 04/25/19 00:06 Capillary blood glucose measurement by glucometer (mas s/volume) 162 mg/dL 70-110 Complete blood count (CBC) with automate d white blood cell (WBC) differential - 04/25/19 05:00 Blood leukocytes automated count (number/volume) 6.0 10*3/uL 4.3-11.0 Blood erythrocytes automated count (number/volume) 1.93 10*6/uL 4.35-5.85 Venous blood hemoglobin measurement (mass/volume) 7.5 g/dL 11.5-16.0 Blood hematocrit (volume fraction) 27 % 35-52 Automated erythrocyte mean corpuscular volume 137 [foz_us] 80-99 Automated erythrocyte mean corpuscular h emoglobin (mass per erythrocyte) 39 pg 25-34 Automated erythrocyte mean corpuscular h emoglobin concentration measurement (mass/volume) 28 g/dL 32-36 Automated erythrocyte distribution width ratio 18. 1 % 10.0- 14.5 Automated blood platelet count (count/volume) 165 10*3/uL 130-400 Automated blood platelet mean volume measurement 12.5 [foz_us] 7.4-10.4 Automated blood neutrophils/100 leukocytes 79 % 42-75 Automated blood lymphocytes/100 leukocytes 9 % 12-44 Blood monocytes/100 leukocytes 10 % 0-12 Automated blood eosinophils/100 leukocytes 2 % 0-10 Automated blood basophils/100 leukocytes 1 % 0-10 Blood neutrophils automated count (number/volume) 4.7 10*3 1.8-7.8 Blood lymphocytes automated count (number/volume) 0.5 10*3 1.0-4.0 Blood monocytes automated count (number/volume) 0. 6 10*3 0.0-1.0 Automated eosinophil count 0.1 10*3/uL 0 .0-0.3 Automated blood basophil count (count/volume) 0.0 10*3/uL 0.0-0.1 Capillary blood glucose measurement by g lucometer (mass/volume) - 04/25/19 05:06 Capillary blood glucose measurement by glucometer (mas s/volume) 356 mg/dL 70-110 Complete blood count (CBC) with automate d white blood cell (WBC) differential - 04/25/19 06:17 Blood leukocytes automated count (number/volume) 8.2 10*3/uL 4.3-11.0 Blood erythrocytes automated count (number/volume) 2.89 10*6/uL 4.35-5.85 Venous blood hemoglobin measurement (mass/volume) 8.9 g/dL 11.5-16.0 Blood hematocrit (volume fraction) 30 % 35-52 Automated erythrocyte mean corpuscular volume 104 [foz_us] 80-99 Automated erythrocyte mean corpuscular h emoglobin (mass per erythrocyte) 31 pg 25-34 Automated erythrocyte mean corpuscular h emoglobin concentration measurement (mass/volume) 30 g/dL 32-36 Automated erythrocyte distribution width ratio 17. 4 % 10.0- 14.5 Automated blood platelet count (count/volume) 233 10*3/uL 130-400 Automated blood platelet mean volume measurement 11.5 [foz_us] 7.4-10.4 Automated blood neutrophils/100 leukocytes 81 % 42-75 Automated blood lymphocytes/100 leukocytes 9 % 12-44 Blood monocytes/100 leukocytes 8 % 0-12 Automated blood eosinophils/100 leukocytes 2 % 0-10 Automated blood basophils/100 leukocytes 0 % 0-10 Blood neutrophils automated count (number/volume) 6.6 10*3 1.8-7.8 Blood lymphocytes automated count (number/volume) 0.7 10*3 1.0-4.0 Blood monocytes automated count (number/volume) 0. 7 10*3 0.0-1.0 Automated eosinophil count 0.2 10*3/uL 0 .0-0.3 Automated blood basophil count (count/volume) 0.0 10*3/uL 0.0-0.1 Comprehensive metabolic panel - 04/25/19 06:17 Serum or plasma sodium measurement (moles/volume) 142 mmol/L 135-145 Serum or plasma potassium measurement (moles/volume) 4.9 mmol/L 3.6-5.0 Serum or plasma chloride measurement (moles/volume) 115 mmol/L 98-107 Carbon dioxide 18 mmol/L 21-32 Serum or plasma anion gap determination (moles/volume) 9 mmol/L 5-14 Serum or plasma urea nitrogen measurement (mass/volume ) 57 mg/dL 7-18 Serum or plasma creatinine measurement (mass/volume) 0.71 mg/dL 0.60-1.30 Serum or plasma urea nitrogen/creatinine mass ratio 80 NRG Serum or plasma creatinine measurement w ith calculation of estimated glomerular filtration rate > NRG Serum or plasma glucose measurement (mass/volume) 156 mg/dL 70-105 Serum or plasma calcium measurement (mass/volume) 8.4 mg/dL 8.5-10.1 Serum or plasma total bilirubin measurement (mass/volu me) 4.0 mg/dL 0.1-1.0 Serum or plasma alkaline phosphatase lilliana surement (enzymatic activity/volume) 140 U/L 40-136 Serum or plasma aspartate aminotransfera se measurement (enzymatic activity/volume) 79 U/L 5-34 Serum or plasma alanine aminotransferase measurement (enzymatic activity/volume) 72 U/L 0-55 Serum or plasma protein measurement (mass/volume) 6.0 g/dL 6.4-8.2 Serum or plasma albumin measurement (mass/volume) 2.0 g/dL 3.2-4.5 CALCIUM CORRECTED 10.0 mg/dL 8.5-10.1 Serum or plasma phosphate measurement (m ass/volume) - 04/25/19 06:17 Serum or plasma phosphate measurement (mass/volume) 4.2 mg/dL 2.3-4.7 Magnesium - 04/25/19 06:17 Magnesium 1.9 mg/dL 1.6-2.4 Serum or plasma triglyceride measurement (mass/volume) - 04/25/19 06:17 Serum or plasma triglyceride measurement (mass/volume) 236 mg/dL <150 Prealbumin - 04/25/19 06:17 Serum or plasma prealbumin measurement (mass/volume) 8.9 % 18.0-37.0 Capillary blood glucose measurement by g lucometer (mass/volume) - 04/25/19 06:47 Capillary blood glucose measurement by glucometer (mas s/volume) 156 mg/dL 70-110 Capillary blood glucose measurement by g lucometer (mass/volume) - 04/25/19 12:23 Capillary blood glucose measurement by glucometer (mas s/volume) 104 mg/dL 70-110 Capillary blood glucose measurement by g lucometer (mass/volume) - 04/25/19 18:39 Capillary blood glucose measurement by glucometer (mas s/volume) 100 mg/dL 70-110 Capillary blood glucose measurement by g lucometer (mass/volume) - 04/25/19 23:57 Capillary blood glucose measurement by glucometer (mas s/volume) 145 mg/dL 70-110 Comprehensive metabolic panel - 04/26/19 05:50 Serum or plasma sodium measurement (moles/volume) 141 mmol/L 135-145 Serum or plasma potassium measurement (moles/volume) 4.5 mmol/L 3.6-5.0 Serum or plasma chloride measurement (moles/volume) 111 mmol/L 98-107 Carbon dioxide 21 mmol/L 21-32 Serum or plasma anion gap determination (moles/volume) 9 mmol/L 5-14 Serum or plasma urea nitrogen measurement (mass/volume ) 57 mg/dL 7-18 Serum or plasma creatinine measurement (mass/volume) 0.72 mg/dL 0.60-1.30 Serum or plasma urea nitrogen/creatinine mass ratio 79 NRG Serum or plasma creatinine measurement w ith calculation of estimated glomerular filtration rate > NRG Serum or plasma glucose measurement (mass/volume) 121 mg/dL 70-105 Serum or plasma calcium measurement (mass/volume) 8.9 mg/dL 8.5-10.1 Serum or plasma total bilirubin measurement (mass/volu me) 4.7 mg/dL 0.1-1.0 Serum or plasma alkaline phosphatase lilliana surement (enzymatic activity/volume) 150 U/L 40-136 Serum or plasma aspartate aminotransfera se measurement (enzymatic activity/volume) 89 U/L 5-34 Serum or plasma alanine aminotransferase measurement (enzymatic activity/volume) 80 U/L 0-55 Serum or plasma protein measurement (mass/volume) 6.7 g/dL 6.4-8.2 Serum or plasma albumin measurement (mass/volume) 2.2 g/dL 3.2-4.5 CALCIUM CORRECTED 10.3 mg/dL 8.5-10.1 Serum or plasma phosphate measurement (m ass/volume) - 04/26/19 05:50 Serum or plasma phosphate measurement (mass/volume) 4.7 mg/dL 2.3-4.7 Magnesium - 04/26/19 05:50 Magnesium 2.0 mg/dL 1.6-2.4 Capillary blood glucose measurement by g lucometer (mass/volume) - 04/26/19 11:56 Capillary blood glucose measurement by glucometer (mas s/volume) 143 mg/dL 70-110 Capillary blood glucose measurement by g lucometer (mass/volume) - 04/26/19 18:02 Capillary blood glucose measurement by glucometer (mas s/volume) 104 mg/dL 70-110 Capillary blood glucose measurement by g lucometer (mass/volume) - 04/27/19 00:06 Capillary blood glucose measurement by glucometer (mas s/volume) 192 mg/dL 70-110 Capillary blood glucose measurement by g lucometer (mass/volume) - 04/27/19 05:40 Capillary blood glucose measurement by glucometer (mas s/volume) 222 mg/dL 70-110 Comprehensive metabolic panel - 04/27/19 06:10 Serum or plasma sodium measurement (moles/volume) 140 mmol/L 135-145 Serum or plasma potassium measurement (moles/volume) 4.1 mmol/L 3.6-5.0 Serum or plasma chloride measurement (moles/volume) 110 mmol/L 98-107 Carbon dioxide 19 mmol/L 21-32 Serum or plasma anion gap determination (moles/volume) 11 mmol/L 5-14 Serum or plasma urea nitrogen measurement (mass/volume ) 49 mg/dL 7-18 Serum or plasma creatinine measurement (mass/volume) 0.68 mg/dL 0.60-1.30 Serum or plasma urea nitrogen/creatinine mass ratio 72 NRG Serum or plasma creatinine measurement w ith calculation of estimated glomerular filtration rate > NRG Serum or plasma glucose measurement (mass/volume) 224 mg/dL 70-105 Serum or plasma calcium measurement (mass/volume) 8.1 mg/dL 8.5-10.1 Serum or plasma total bilirubin measurement (mass/volu me) 4.2 mg/dL 0.1-1.0 Serum or plasma alkaline phosphatase lilliana surement (enzymatic activity/volume) 135 U/L 40-136 Serum or plasma aspartate aminotransfera se measurement (enzymatic activity/volume) 72 U/L 5-34 Serum or plasma alanine aminotransferase measurement (enzymatic activity/volume) 67 U/L 0-55 Serum or plasma protein measurement (mass/volume) 6.1 g/dL 6.4-8.2 Serum or plasma albumin measurement (mass/volume) 1.9 g/dL 3.2-4.5 CALCIUM CORRECTED 9.8 mg/dL 8.5-10.1 Serum or plasma phosphate measurement (m ass/volume) - 04/27/19 06:10 Serum or plasma phosphate measurement (mass/volume) 3.9 mg/dL 2.3-4.7 Magnesium - 04/27/19 06:10 Magnesium 1.8 mg/dL 1.6-2.4 Capillary blood glucose measurement by g lucometer (mass/volume) - 04/27/19 11:35 Capillary blood glucose measurement by glucometer (mas s/volume) 144 mg/dL 70-110 Capillary blood glucose measurement by g lucometer (mass/volume) - 04/27/19 18:10 Capillary blood glucose measurement by glucometer (mas s/volume) 121 mg/dL 70-110 Capillary blood glucose measurement by g lucometer (mass/volume) - 04/28/19 00:10 Capillary blood glucose measurement by glucometer (mas s/volume) 165 mg/dL 70-110 Capillary blood glucose measurement by g lucometer (mass/volume) - 04/28/19 05:10 Capillary blood glucose measurement by glucometer (mas s/volume) 175 mg/dL 70-110 Whole blood basic metabolic panel - 04/08 06/26 06:30 Serum or plasma sodium measurement (moles/volume) 142 mmol/L 135-145 Serum or plasma potassium measurement (moles/volume) 4.0 mmol/L 3.6-5.0 Serum or plasma chloride measurement (moles/volume) 111 mmol/L 98-107 Carbon dioxide 23 mmol/L 21-32 Serum or plasma anion gap determination (moles/volume) 8 mmol/L 5-14 Serum or plasma urea nitrogen measurement (mass/volume ) 48 mg/dL 7-18 Serum or plasma creatinine measurement (mass/volume) 0.62 mg/dL 0.60-1.30 Serum or plasma urea nitrogen/creatinine mass ratio 77 NRG Serum or plasma creatinine measurement w ith calculation of estimated glomerular filtration rate > NRG Serum or plasma glucose measurement (mass/volume) 166 mg/dL 70-105 Serum or plasma calcium measurement (mass/volume) 8.2 mg/dL 8.5-10.1 Serum or plasma phosphate measurement (m ass/volume) - 04/28/19 06:30 Serum or plasma phosphate measurement (mass/volume) 3.5 mg/dL 2.3-4.7 Magnesium - 04/28/19 06:30 Magnesium 1.8 mg/dL 1.6-2.4 Capillary blood glucose measurement by g lucometer (mass/volume) - 04/28/19 11:38 Capillary blood glucose measurement by glucometer (mas s/volume) 144 mg/dL 70-110 Capillary blood glucose measurement by g lucometer (mass/volume) - 04/28/19 17:57 Capillary blood glucose measurement by glucometer (mas s/volume) 124 mg/dL 70-110 Capillary blood glucose measurement by g lucometer (mass/volume) - 04/29/19 00:04 Capillary blood glucose measurement by glucometer (mas s/volume) 219 mg/dL 70-110 Capillary blood glucose measurement by g lucometer (mass/volume) - 04/29/19 05:29 Capillary blood glucose measurement by glucometer (mas s/volume) 178 mg/dL 70-110 Complete blood count (CBC) with automate d white blood cell (WBC) differential - 04/29/19 06:55 Blood leukocytes automated count (number/volume) 9.7 10*3/uL 4.3-11.0 Blood erythrocytes automated count (number/volume) 2.67 10*6/uL 4.35-5.85 Venous blood hemoglobin measurement (mass/volume) 8.3 g/dL 11.5-16.0 Blood hematocrit (volume fraction) 28 % 35-52 Automated erythrocyte mean corpuscular volume 104 [foz_us] 80-99 Automated erythrocyte mean corpuscular h emoglobin (mass per erythrocyte) 31 pg 25-34 Automated erythrocyte mean corpuscular h emoglobin concentration measurement (mass/volume) 30 g/dL 32-36 Automated erythrocyte distribution width ratio 16. 4 % 10.0- 14.5 Automated blood platelet count (count/volume) 168 10*3/uL 130-400 Automated blood platelet mean volume measurement 12.5 [foz_us] 7.4-10.4 Automated blood neutrophils/100 leukocytes 78 % 42-75 Automated blood lymphocytes/100 leukocytes 7 % 12-44 Blood monocytes/100 leukocytes 13 % 0-12 Automated blood eosinophils/100 leukocytes 2 % 0-10 Automated blood basophils/100 leukocytes 0 % 0-10 Blood neutrophils automated count (number/volume) 7.5 10*3 1.8-7.8 Blood lymphocytes automated count (number/volume) 0.7 10*3 1.0-4.0 Blood monocytes automated count (number/volume) 1. 3 10*3 0.0-1.0 Automated eosinophil count 0.1 10*3/uL 0 .0-0.3 Automated blood basophil count (count/volume) 0.0 10*3/uL 0.0-0.1 Comprehensive metabolic panel - 04/29/19 06:55 Serum or plasma sodium measurement (moles/volume) 140 mmol/L 135-145 Serum or plasma potassium measurement (moles/volume) 4.2 mmol/L 3.6-5.0 Serum or plasma chloride measurement (moles/volume) 109 mmol/L 98-107 Carbon dioxide 24 mmol/L 21-32 Serum or plasma anion gap determination (moles/volume) 7 mmol/L 5-14 Serum or plasma urea nitrogen measurement (mass/volume ) 56 mg/dL 7-18 Serum or plasma creatinine measurement (mass/volume) 0.73 mg/dL 0.60-1.30 Serum or plasma urea nitrogen/creatinine mass ratio 77 NRG Serum or plasma creatinine measurement w ith calculation of estimated glomerular filtration rate > NRG Serum or plasma glucose measurement (mass/volume) 176 mg/dL 70-105 Serum or plasma calcium measurement (mass/volume) 7.9 mg/dL 8.5-10.1 Serum or plasma total bilirubin measurement (mass/volu me) 3.7 mg/dL 0.1-1.0 Serum or plasma alkaline phosphatase lilliana surement (enzymatic activity/volume) 126 U/L 40-136 Serum or plasma aspartate aminotransfera se measurement (enzymatic activity/volume) 67 U/L 5-34 Serum or plasma alanine aminotransferase measurement (enzymatic activity/volume) 55 U/L 0-55 Serum or plasma protein measurement (mass/volume) 5.5 g/dL 6.4-8.2 Serum or plasma albumin measurement (mass/volume) 1.7 g/dL 3.2-4.5 CALCIUM CORRECTED 9.7 mg/dL 8.5-10.1 Manual absolute plasma cell count - 04/08 07/24 06:55 Blood monocytes/100 leukocytes 12 % NRG Manual blood segmented neutrophils/100 leukocytes 76 % NRG Blood band neutrophils/100 leukocytes 6 % NRG Manual blood lymphocytes/100 leukocytes 3 % NRG Manual eosinophils/100 leukocytes in nose 1 % NRG Manual blood basophils/100 leukocytes 0 % NRG Blood polychromasia detection by light microscopy SLIGHT NRG Blood anisocytosis detection by light microscopy M ODERATE NRG Manual blood metamyelocytes/100 leukocytes 1 % NRG Manual blood myelocytes/100 leukocytes 1 % NRG Serum or plasma phosphate measurement (m ass/volume) - 04/29/19 06:55 Serum or plasma phosphate measurement (mass/volume) 4.1 mg/dL 2.3-4.7 Magnesium - 04/29/19 06:55 Magnesium 1.8 mg/dL 1.6-2.4 Prealbumin - 04/29/19 06:55 Serum or plasma prealbumin measurement (mass/volume) 7.9 % 18.0-37.0 Capillary blood glucose measurement by g lucometer (mass/volume) - 04/29/19 12:43 Capillary blood glucose measurement by glucometer (mas s/volume) 141 mg/dL 70-110 Capillary blood glucose measurement by g lucometer (mass/volume) - 04/29/19 18:18 Capillary blood glucose measurement by glucometer (mas s/volume) 130 mg/dL 70-110 Capillary blood glucose measurement by g lucometer (mass/volume) - 04/30/19 00:34 Capillary blood glucose measurement by glucometer (mas s/volume) 184 mg/dL 70-110 Capillary blood glucose measurement by g lucometer (mass/volume) - 04/30/19 04:57 Capillary blood glucose measurement by glucometer (mas s/volume) 191 mg/dL 70-110 Capillary blood glucose measurement by g lucometer (mass/volume) - 04/30/19 14:09 Capillary blood glucose measurement by glucometer (mas s/volume) 155 mg/dL 70-110 Capillary blood glucose measurement by g lucometer (mass/volume) - 04/30/19 18:35 Capillary blood glucose measurement by glucometer (mas s/volume) 130 mg/dL 70-110 Capillary blood glucose measurement by g lucometer (mass/volume) - 05/01/19 00:10 Capillary blood glucose measurement by glucometer (mas s/volume) 156 mg/dL 70-110 Capillary blood glucose measurement by g lucometer (mass/volume) - 05/01/19 05:53 Capillary blood glucose measurement by glucometer (mas s/volume) 186 mg/dL 70-110 Capillary blood glucose measurement by g lucometer (mass/volume) - 05/01/19 11:38 Capillary blood glucose measurement by glucometer (mas s/volume) 152 mg/dL 70-110 Capillary blood glucose measurement by g lucometer (mass/volume) - 05/01/19 18:07 Capillary blood glucose measurement by glucometer (mas s/volume) 138 mg/dL 70-110 Capillary blood glucose measurement by g lucometer (mass/volume) - 05/02/19 00:33 Capillary blood glucose measurement by glucometer (mas s/volume) 173 mg/dL 70-110 Capillary blood glucose measurement by g lucometer (mass/volume) - 05/02/19 05:24 Capillary blood glucose measurement by glucometer (mas s/volume) 206 mg/dL 70-110 Capillary blood glucose measurement by g lucometer (mass/volume) - 05/02/19 11:01 Capillary blood glucose measurement by glucometer (mas s/volume) 144 mg/dL 70-110 Capillary blood glucose measurement by g lucometer (mass/volume) - 05/02/19 18:02 Capillary blood glucose measurement by glucometer (mas s/volume) 140 mg/dL 70-110 Capillary blood glucose measurement by g lucometer (mass/volume) - 05/03/19 00:07 Capillary blood glucose measurement by glucometer (mas s/volume) 169 mg/dL 70-110 Capillary blood glucose measurement by g lucometer (mass/volume) - 05/03/19 05:31 Capillary blood glucose measurement by glucometer (mas s/volume) 216 mg/dL 70-110 Complete blood count (CBC) with automate d white blood cell (WBC) differential - 05/03/19 09:19 Blood leukocytes automated count (number/volume) 11.3 10*3/uL 4.3-11.0 Blood erythrocytes automated count (number/volume) 2.96 10*6/uL 4.35-5.85 Venous blood hemoglobin measurement (mass/volume) 9.1 g/dL 11.5-16.0 Blood hematocrit (volume fraction) 30 % 35-52 Automated erythrocyte mean corpuscular volume 101 [foz_us] 80-99 Automated erythrocyte mean corpuscular h emoglobin (mass per erythrocyte) 31 pg 25-34 Automated erythrocyte mean corpuscular h emoglobin concentration measurement (mass/volume) 30 g/dL 32-36 Automated erythrocyte distribution width ratio 16. 3 % 10.0- 14.5 Automated blood platelet count (count/volume) 184 10*3/uL 130-400 Automated blood platelet mean volume measurement 12.3 [foz_us] 7.4-10.4 Automated blood neutrophils/100 leukocytes 83 % 42-75 Automated blood lymphocytes/100 leukocytes 6 % 12-44 Blood monocytes/100 leukocytes 11 % 0-12 Automated blood eosinophils/100 leukocytes 1 % 0-10 Automated blood basophils/100 leukocytes 0 % 0-10 Blood neutrophils automated count (number/volume) 9.4 10*3 1.8-7.8 Blood lymphocytes automated count (number/volume) 0.6 10*3 1.0-4.0 Blood monocytes automated count (number/volume) 1. 2 10*3 0.0-1.0 Automated eosinophil count 0.1 10*3/uL 0 .0-0.3 Automated blood basophil count (count/volume) 0.0 10*3/uL 0.0-0.1 Comprehensive metabolic panel - 05/03/19 09:19 Serum or plasma sodium measurement (moles/volume) 140 mmol/L 135-145 Serum or plasma potassium measurement (moles/volume) 3.9 mmol/L 3.6-5.0 Serum or plasma chloride measurement (moles/volume) 101 mmol/L 98-107 Carbon dioxide 28 mmol/L 21-32 Serum or plasma anion gap determination (moles/volume) 11 mmol/L 5-14 Serum or plasma urea nitrogen measurement (mass/volume ) 67 mg/dL 7-18 Serum or plasma creatinine measurement (mass/volume) 0.77 mg/dL 0.60-1.30 Serum or plasma urea nitrogen/creatinine mass ratio 87 NRG Serum or plasma creatinine measurement w ith calculation of estimated glomerular filtration rate > NRG Serum or plasma glucose measurement (mass/volume) 208 mg/dL 70-105 Serum or plasma calcium measurement (mass/volume) 8.4 mg/dL 8.5-10.1 Serum or plasma total bilirubin measurement (mass/volu me) 4.5 mg/dL 0.1-1.0 Serum or plasma alkaline phosphatase lilliana surement (enzymatic activity/volume) 159 U/L 40-136 Serum or plasma aspartate aminotransfera se measurement (enzymatic activity/volume) 78 U/L 5-34 Serum or plasma alanine aminotransferase measurement (enzymatic activity/volume) 54 U/L 0-55 Serum or plasma protein measurement (mass/volume) 6.1 g/dL 6.4-8.2 Serum or plasma albumin measurement (mass/volume) 1.8 g/dL 3.2-4.5 CALCIUM CORRECTED 10.2 mg/dL 8.5-10.1 Serum or plasma phosphate measurement (m ass/volume) - 05/03/19 09:19 Serum or plasma phosphate measurement (mass/volume) 4.2 mg/dL 2.3-4.7 Magnesium - 05/03/19 09:19 Magnesium 2.1 mg/dL 1.6-2.4 Capillary blood glucose measurement by g lucometer (mass/volume) - 05/03/19 12:04 Capillary blood glucose measurement by glucometer (mas s/volume) 163 mg/dL 70-110 Capillary blood glucose measurement by g lucometer (mass/volume) - 05/03/19 17:54 Capillary blood glucose measurement by glucometer (mas s/volume) 89 mg/dL 70-110 Capillary blood glucose measurement by g lucometer (mass/volume) - 05/03/19 23:15 Capillary blood glucose measurement by glucometer (mas s/volume) 154 mg/dL 70-110 Capillary blood glucose measurement by g lucometer (mass/volume) - 05/04/19 05:08 Capillary blood glucose measurement by glucometer (mas s/volume) 188 mg/dL 70-110 Capillary blood glucose measurement by g lucometer (mass/volume) - 05/04/19 12:21 Capillary blood glucose measurement by glucometer (mas s/volume) 134 mg/dL 70-110 Capillary blood glucose measurement by g lucometer (mass/volume) - 05/04/19 17:54 Capillary blood glucose measurement by glucometer (mas s/volume) 101 mg/dL 70-110 Capillary blood glucose measurement by g lucometer (mass/volume) - 05/05/19 00:24 Capillary blood glucose measurement by glucometer (mas s/volume) 152 mg/dL 70-110 Capillary blood glucose measurement by g lucometer (mass/volume) - 05/05/19 05:26 Capillary blood glucose measurement by glucometer (mas s/volume) 162 mg/dL 70-110 Capillary blood glucose measurement by g lucometer (mass/volume) - 05/05/19 11:33 Capillary blood glucose measurement by glucometer (mas s/volume) 154 mg/dL 70-110 Capillary blood glucose measurement by g lucometer (mass/volume) - 05/05/19 18:13 Capillary blood glucose measurement by glucometer (mas s/volume) 107 mg/dL 70-110 Capillary blood glucose measurement by g lucometer (mass/volume) - 05/06/19 05:29 Capillary blood glucose measurement by glucometer (mas s/volume) 155 mg/dL 70-110 Complete blood count (CBC) with automate d white blood cell (WBC) differential - 05/06/19 05:30 Blood leukocytes automated count (number/volume) 12.3 10*3/uL 4.3-11.0 Blood erythrocytes automated count (number/volume) 2.75 10*6/uL 4.35-5.85 Venous blood hemoglobin measurement (mass/volume) 8.5 g/dL 11.5-16.0 Blood hematocrit (volume fraction) 28 % 35-52 Automated erythrocyte mean corpuscular volume 102 [foz_us] 80-99 Automated erythrocyte mean corpuscular h emoglobin (mass per erythrocyte) 31 pg 25-34 Automated erythrocyte mean corpuscular h emoglobin concentration measurement (mass/volume) 30 g/dL 32-36 Automated erythrocyte distribution width ratio 15. 9 % 10.0- 14.5 Automated blood platelet count (count/volume) 183 10*3/uL 130-400 Automated blood platelet mean volume measurement 12.8 [foz_us] 7.4-10.4 Automated blood neutrophils/100 leukocytes 81 % 42-75 Automated blood lymphocytes/100 leukocytes 8 % 12-44 Blood monocytes/100 leukocytes 10 % 0-12 Automated blood eosinophils/100 leukocytes 1 % 0-10 Automated blood basophils/100 leukocytes 0 % 0-10 Blood neutrophils automated count (number/volume) 9.9 10*3 1.8-7.8 Blood lymphocytes automated count (number/volume) 0.9 10*3 1.0-4.0 Blood monocytes automated count (number/volume) 1. 2 10*3 0.0-1.0 Automated eosinophil count 0.2 10*3/uL 0 .0-0.3 Automated blood basophil count (count/volume) 0.0 10*3/uL 0.0-0.1 Comprehensive metabolic panel - 05/06/19 05:30 Serum or plasma sodium measurement (moles/volume) 139 mmol/L 135-145 Serum or plasma potassium measurement (moles/volume) 3.9 mmol/L 3.6-5.0 Serum or plasma chloride measurement (moles/volume) 99 mmol/L 98-107 Carbon dioxide 30 mmol/L 21-32 Serum or plasma anion gap determination (moles/volume) 10 mmol/L 5-14 Serum or plasma urea nitrogen measurement (mass/volume ) 88 mg/dL 7-18 Serum or plasma creatinine measurement (mass/volume) 1.02 mg/dL 0.60-1.30 Serum or plasma urea nitrogen/creatinine mass ratio 86 NRG Serum or plasma creatinine measurement w ith calculation of estimated glomerular filtration rate 53 NRG Serum or plasma glucose measurement (mass/volume) 142 mg/dL 70-105 Serum or plasma calcium measurement (mass/volume) 8.2 mg/dL 8.5-10.1 Serum or plasma total bilirubin measurement (mass/volu me) 4.2 mg/dL 0.1-1.0 Serum or plasma alkaline phosphatase lilliana surement (enzymatic activity/volume) 166 U/L 40-136 Serum or plasma aspartate aminotransfera se measurement (enzymatic activity/volume) 81 U/L 5-34 Serum or plasma alanine aminotransferase measurement (enzymatic activity/volume) 50 U/L 0-55 Serum or plasma protein measurement (mass/volume) 6.0 g/dL 6.4-8.2 Serum or plasma albumin measurement (mass/volume) 1.7 g/dL 3.2-4.5 CALCIUM CORRECTED 10.0 mg/dL 8.5-10.1 Prealbumin - 05/06/19 05:30 Serum or plasma prealbumin measurement (mass/volume) 5.9 % 18.0-37.0 Capillary blood glucose measurement by g lucometer (mass/volume) - 05/06/19 12:24 Capillary blood glucose measurement by glucometer (mas s/volume) 163 mg/dL 70-110 Capillary blood glucose measurement by g lucometer (mass/volume) - 05/06/19 18:02 Capillary blood glucose measurement by glucometer (mas s/volume) 121 mg/dL 70-110 Capillary blood glucose measurement by g lucometer (mass/volume) - 05/07/19 00:29 Capillary blood glucose measurement by glucometer (mas s/volume) 175 mg/dL 70-110 Capillary blood glucose measurement by g lucometer (mass/volume) - 05/07/19 06:16 Capillary blood glucose measurement by glucometer (mas s/volume) 206 mg/dL 70-110 Capillary blood glucose measurement by g lucometer (mass/volume) - 05/07/19 12:03 Capillary blood glucose measurement by glucometer (mas s/volume) 134 mg/dL 70-110 Capillary blood glucose measurement by g lucometer (mass/volume) - 05/07/19 17:45 Capillary blood glucose measurement by glucometer (mas s/volume) 116 mg/dL 70-110 Capillary blood glucose measurement by g lucometer (mass/volume) - 05/08/19 00:07 Capillary blood glucose measurement by glucometer (mas s/volume) 129 mg/dL 70-110 Capillary blood glucose measurement by g lucometer (mass/volume) - 05/08/19 05:20 Capillary blood glucose measurement by glucometer (mas s/volume) 155 mg/dL 70-110 Capillary blood glucose measurement by g lucometer (mass/volume) - 05/09/19 05:52 Capillary blood glucose measurement by glucometer (mas s/volume) 220 mg/dL 70-110 Capillary blood glucose measurement by g lucometer (mass/volume) - 05/09/19 12:07 Capillary blood glucose measurement by glucometer (mas s/volume) 150 mg/dL 70-110 Capillary blood glucose measurement by g lucometer (mass/volume) - 05/09/19 17:53 Capillary blood glucose measurement by glucometer (mas s/volume) 150 mg/dL 70-110 Capillary blood glucose measurement by g lucometer (mass/volume) - 05/10/19 00:11 Capillary blood glucose measurement by glucometer (mas s/volume) 161 mg/dL 70-110 Capillary blood glucose measurement by g lucometer (mass/volume) - 05/10/19 05:33 Capillary blood glucose measurement by glucometer (mas s/volume) 158 mg/dL 70-110 Encounters ACCT No. Visit Date/Time Discharge Status Pt. Type Provider Facility Loc./Unit Complaint [id number] 03/20/2014 13:57:33 03/20/2014 23:59: 59 CLS Outpatient Jamie Terrell [id number] 05/10/2019 10:45:00 17:42:00 DIS Inpatient YARON GALLAGHER DO [facility] 4TH UNCONTROLLED N/V [id number] 04/18/2019 14:30:00 10:50:00 DIS Outpatient YARON GALLAGHER DO [facility] IRF CRITICAL ILLNESS MYOPAT HY [id number] 04/23/2019 00:10:00 23:59:59 CLS Preadmit BHAVANI GALLAGHER MD [facility] ONC [id number] 02/13/2019 12:34:00 00:01:00 DIS Outpatient BHAVANI GALLAGHER MD [facility] ONC [id number] 02/24/2019 22:05:00 15:37:00 DIS Inpatient MISSY MONTEJO DO [facility] ICU POST OP COMPLICATION [id number] 02/22/2019 20:28:00 22:59:00 DIS Emergency CARTER BERMAN [facility] ER ABD PAIN [id number] 02/22/2019 15:37:00 19:01:00 DIS Emergency JUAN CARLOS WEISS MD [facility] ER PAIN LOWER ABD [id number] 02/21/2019 06:51:00 14:00:00 DIS Outpatient EDIS PEARSON MD [facility] SDC ABDOMINAL PAIN,POSSIBLE INCISIONAL HERNIA [id number] 02/19/2019 13:45:00 14:10:00 DIS Outpatient EDIS PEARSON MD [facility] PREOP ABDOMINAL PAIN; POSSIBL E INCISIONAL HERNIA [id number] 02/06/2019 08:04:00 23:59:59 CLS Outpatient AILEEN KRISHNAMURTHY, BHAVANI [facility] RAD COLORECTAL CANCER [id number] 01/30/2019 00:11:00 23:59:59 CLS Preadmit JANAY AGUILERA MD, [facility] LAB LABS [id number] 11/02/2018 08:24:00 00:01:00 DIS Outpatient JANAY AGUILERA MD [facility] LAB LABS [id number] 08/24/2018 09:29:00 23:59:59 CLS Outpatient HARSH WALTON MD [facility] RAD YEARLY SCREENING [id number] 06/26/2018 00:09:00 23:59:59 CLS Preadmit NAYA URIAS MD [facility] CARD CAD,CHEST PAIN,PALPITAT ION [id number] 03/27/2018 08:11:00 00:01:00 DIS Outpatient NAYA URIAS MD [facility] CARD CAD,CHEST PAIN,PALPITAT ION [id number] 04/29/2018 09:33:00 13:51:00 DIS Emergency SIRI PERSON MD [facility] ER VOMITING/CHEST TIGHTNESS [id number] 04/18/2018 06:48:00 13:00:00 DIS Outpatient NAYA URIAS MD [facility] CATH ABNORMAL STRESS TEST,CP ,HTN,HLP [id number] 04/11/2018 06:56:00 12/05/2 018 23:59:59 CLS Outpatient NAYA URIAS MD [facility] CARD CAD,CHEST PAIN,PALPITAT ION [id number] 01/30/2018 10:27:00 018 00:01:00 DIS Outpatient BHAVANI GALLAGHER MD [facility] ONC [id number] 01/30/2018 00:10:00 018 23:59:59 CLS Preadmit ALE KRISHNAMURTHY, JANAY zeng [facility] LAB RENAL STONES [id number] 10/31/2017 15:22:00 018 00:01:00 DIS Outpatient JANAY AGUILERA MD [facility] LAB RENAL STONES [id number] 08/21/2017 08:31:00 23:59:59 CLS Outpatient HARSH WALOTN MD [facility] RAD SCREENING [id number] 08/01/2017 10:40:00 018 23:59:59 CLS Outpatient BHAVANI GALLAGHER MD [facility] ONC [id number] 01/11/2017 00:14:00 017 23:59:59 CLS Preadmit ALE KRISHNAMURTHY, JANAY zeng [facility] RAD STONES [id number] 10/14/2016 08:04:00 017 00:01:00 DIS Outpatient JANAY AGUILERA MD [facility] RAD STONES [id number] 08/19/2016 07:21:00 017 23:59:59 CLS Outpatient HARSH WALTON MD [facility] RAD SEVERE RT BREAST PAIN [id number] 08/03/2016 07:46:00 017 23:59:59 CLS Outpatient NAYA URIAS MD [facility] CARD CAD,CHEST PAIN,HLP,HTN [id number] 08/02/2016 14:12:00 017 23:59:59 CLS Outpatient BHAVANI GALLAGHER MD [facility] ONC [id number] 08/01/2016 07:30:00 017 23:59:59 CLS Outpatient BRIDGETT KRISHNAMURTHY, NAYA Ross [facility] CARD CAD,CHEST PAIN,HLP,HTN [id number] 06/06/2016 09:05:00 017 23:59:59 CLS Outpatient BHAVANI GALLAGHER MD [facility] ONC [id number] 06/02/2016 11:54:00 017 23:59:59 CLS Outpatient BHAVANI GALLAGHER MD [facility] RAD MULTINODULAR GOITER [id number] 05/31/2016 12:39:00 017 23:59:59 CLS Outpatient BHAVANI GALLAGHER MD [facility] ONC [id number] 05/23/2016 09:27:00 017 23:59:59 CLS Outpatient BHAVANI GALLAGHER MD [facility] RAD COLORECTAL CA [id number] 04/27/2016 10:17:00 016 23:59:59 CLS Outpatient HARSH WALTON MD [facility] RAD COUGH [id number] 04/13/2016 12:49:00 016 23:59:59 CLS Outpatient BHAVANI GALLAGHER MD [facility] ONC [id number] 10/05/2015 10:00:00 016 09:40:00 DIS Inpatient HARSH WALTON MD [facility] 4TH ACUTE RENAL FAILURE [id number] 10/02/2015 08:56:00 016 23:59:59 CLS Outpatient JANAY AGUILERA MD [facility] RAD RENAL STONE [id number] 08/22/2015 09:47:00 016 12:37:00 DIS Emergency KAREN LOPEZ MD [facility] ER FEVER WEAKNESS COUGH [id number] 07/17/2015 08:38:00 016 13:48:00 DIS Emergency HARSH ATKINSON MD [facility] ER DIARRHEA/LEG CRAMPS MUL TIPLE FALLS [id number] 07/16/2015 22:30:00 016 01:30:00 DIS Emergency SHAILA WEST DO [facility] ER DIARRHEA [id number] 04/08/2015 12:51:00 016 00:01:00 DIS Outpatient BHAVANI GALLAGHER MD [facility] ONC [id number] 09/25/2014 16:16:00 015 23:59:59 CLS Outpatient JANAY AGUILERA MD [facility] RAD STONES [id number] 05/30/2014 10:23:00 015 14:05:00 DIS Outpatient HERB GOLD MD [facility] SDC SKIN LESIONS [id number] 05/26/2014 10:16:00 015 23:59:59 CLS Outpatient HERB GOLD MD [facility] PREOP SKIN LESIONS [id number] 05/03/2014 19:13:00 014 20:51:00 DIS Emergency JUAN CARLOS WEISS MD [facility] ER HEADACHE;HIGH B LOOD PRESSURE [id number] 04/09/2014 12:39:00 014 23:59:59 CLS Outpatient BHAVANI GALLAGHER MD [facility] ONC [id number] 09/20/2013 09:58:00 014 23:59:59 CLS Outpatient JANAY AGUILERA MD [facility] RAD STONES [id number] 08/14/2013 12:54:00 014 23:59:59 CLS Outpatient BHAVANI GALLAGHER MD [facility] ONC [id number] 07/04/2013 21:10:00 014 12:20:00 DIS Inpatient HARSH WALTON MD [facility] CSD CHEST PAIN,HYPERTENSION ,MILDLY ELEVATED LIPASE [id number] 02/06/2013 12:41:00 23:59:59 CLS Outpatient AILEEN KRISHNAMURTHY, RADUKONSTANTIN [facility] ONC [id number] 12/04/2012 12:39:00 23:59:59 CLS Outpatient JANAY AGUILERA MD [facility] RAD LT RENAL STONE POST ESW L [id number] 11/13/2012 07:50:00 12:10:00 DIS Outpatient JANAY AGUILERA MD [facility] SDC LEFT RENAL STONE [id number] 11/09/2012 09:31:00 23:59:59 CLS Outpatient JANAY AGUILERA MD [facility] PREOP LEFT RENAL STONE [id number] 11/07/2012 13:47:00 23:59:59 CLS Outpatient HARSH WALTON MD [facility] RAD ABNORMAL RIGHT MAMMO [id number] 10/26/2012 09:22:00 23:59:59 CLS Outpatient HARSH WALTON MD [facility] RAD SCREENING [id number] 10/19/2012 10:33:00 23:59:59 CLS Outpatient JANAY AGUILERA MD [facility] RAD STONES [id number] 04/27/2016 10:16:00 Document Registration [id number] 08/18/2015 10:14:00 Document Registration [id number] 08/08/2012 20:52:00 Document Registration [id number] 07/06/2012 19:51:00 Document Registration [id number] 07/05/2012 07:52:00 Document Registration [id number] 05/14/2012 09:46:00 Document Registration [id number] 01/03/2012 08:45:00 Document Registration [id number] 12/27/2011 09:40:00 Document Registration [id number] 10/24/2011 08:43:00 Document Registration [id number] 06/28/2011 10:14:00 Document Registration [id number] 03/22/2011 14:37:00 Document Registration [id number] 12/21/2010 13:46:00 Document Registration [id number] 12/07/2010 07:55:00 Document Registration
== END 2019-05-10 10:50 | disposition hospice, inpatient (51) | DRG 92 ==
PROVIDERS: ADMIT Internal Medicine; ATTEND Internal Medicine
DX: G72.81 Critical illness myopathy (principal); F03.90 Unspecified dementia, unspecified severity, without behavioral disturbance, psychotic disturbance, mood disturbance, and anxiety; T81.31XA Disruption of external operation (surgical) wound, not elsewhere classified, initial encounter; E46 Unspecified protein-calorie malnutrition; E11.40 Type 2 diabetes mellitus with diabetic neuropathy, unspecified; L89.152 Pressure ulcer of sacral region, stage 2; L89.819 Pressure ulcer of head, unspecified stage; L89.899 Pressure ulcer of other site, unspecified stage; Z66 Do not resuscitate; F41.9 Anxiety disorder, unspecified; K21.9 Gastro-esophageal reflux disease without esophagitis; M54.9 Dorsalgia, unspecified; M10.9 Gout, unspecified; E03.9 Hypothyroidism, unspecified; F32.9 Major depressive disorder, single episode, unspecified; I10 Essential (primary) hypertension; I48.0 Paroxysmal atrial fibrillation; I25.10 Atherosclerotic heart disease of native coronary artery without angina pectoris; E78.5 Hyperlipidemia, unspecified; G47.33 Obstructive sleep apnea (adult) (pediatric); D64.9 Anemia, unspecified; I65.23 Occlusion and stenosis of bilateral carotid arteries; K76.89 Other specified diseases of liver; R00.0 Tachycardia, unspecified; Z93.2 Ileostomy status; Z79.4 Long term (current) use of insulin; Z85.038 Personal history of other malignant neoplasm of large intestine; Z87.891 Personal history of nicotine dependence; Z74.01 Bed confinement status; Z90.710 Acquired absence of both cervix and uterus
CPT/HCPCS: 36415; 80048; 80053; 82962; 83540; 83735; 84100; 84134; 84478; 85007; 85025; 85027; 93005; 94640; 94760

== ENCOUNTER 2019-05-10 10:12 | Inpatient (IN) | payer MEDICARE ==
[~2019-05-10] VITALS: Ht 167.7 cm; Wt 70.5 kg
[~2019-05-10 10:12] MED LIST changes: +ALBU2.5V4 NEB; +ASPI-983 PO; +BENZ1LOZ61 MM; +CLON1PAT TD; +DEXT33GE7 PO; +ENAL5TAB PEG; +ENOX40DI13 SQ; +FENT1PAT57 TD; +FENT50VI IV; +FLUT16SP22 NS; +GLUC1KIT IM; +HYDR-700 PO; +HYDR20VI7 IJ; +INSU100I10 SC; +INSU100I14 SC; +INSU100V39 SQ; +IPRA3AMP31 NEB; +LANS30CA PEG; +MAGIC MOUTHWASH PO; +METO-333 PEG; +METO5VIA26 INJ; +MORP4VIA IV; +NYST1000 PO; +ONDA2VIA2 IV; +OXYB5TAB9 PO; +SERT50TA9 PO; +SODI30SP2 NS
[2019-05-10 10:45] VITALS: BP 117/67
--- NOTE | 2019-05-10 10:50 | NUR ---
BALDO NGUYEN admitted to room 420-1, with an admitting diagnosis of comfort care, on 05/10/19 ARF bed, accompanied by staff and family .BALDO NGUYEN and family were introduced to surroundings, call light, bed controls, phone, TV, temperature control, lights, meal times, smoking policy, visitor policy, side rail policy, bathrooms and showers. Patient Rights given to patient in the handbook. BALDO NGUYEN and family verbalizes understanding that [facility] is not responsible for the loss or damage to any personal effects or valuables that are kept in the patients posession during their hospitalization. The following Patient Care Plans and discharge were discussed with the family . BALDO NGUYEN and family verbalizes understanding of Interdisciplinary Patient Education. Patient and family were informed about the Rapid Response Team and its purpose.
[2019-05-10] MEDS ORDERED: RT-ALBUTEROL/IPRATROPIUM 3 ML (DUONEB) VIAL INH PRN (11:00)
[2019-05-10] MEDS ORDERED: GLYCOPYRROLATE 0.2 MG/ML (ROBINUL) 2 ML VIAL IV PRN (11:00)
[2019-05-10] MEDS ORDERED: ACETAMINOPHEN 650 MG SUPP (TYLENOL) PR PRN (11:00)
[2019-05-10] MEDS ORDERED: ARTIFICAL TEARS 0.4 ML UNIT DOSE (REFRESH PLUS) OU PRN (11:00)
[2019-05-10] MEDS ORDERED: BISACODYL 10 MG SUPP (DULCOLAX) PR PRN (11:00)
[2019-05-10] MEDS ORDERED: PROMETHAZINE INJ 25 MG/ML (PHENERGAN) AMP IVP PRN (11:00)
[2019-05-10] MEDS ORDERED: ATROPINE 1% OPHTHALMIC SOLN 2 ML SL PRN (11:00)
--- NOTE | 2019-05-10 11:36 | NUR ---
REVIEWED MED REC IT WAS, NO CHANGES WERE MADE WHEN THE PATIENT DISCHARGED FROM REHAB TO ICU HOWEVER THE MED REC DOES NOT REFLECT THE CHANGES THAT WERE MADE WHEN THE PATIENT WAS AT [facility]. I HAD SET THE HOME MED REC TO REFLECT THE MEDICATIONS THE PATIENT WAS TAKING PRIOR TO ADMISSION TO [facility].
--- NOTE | 2019-05-10 13:29 | NUR ---
Removed wound VAC dressing from Pt by request of Dr. Willett. Wet to dry dressing applied per Dr. Willett request. Pt tolerated dressing change well.
[2019-05-10] MEDS ORDERED: SILVER NITRATE APPLICATOR 1 PKT TP ONE (15:30)
[2019-05-10] MEDS: SCOPOLAMINE 1.5 MG (TRANSDERM-SCOP) PATCH TOP SCH (16:27)
[2019-05-11] MEDS: SALIVA STIMULANT MOUTH SPRAY (BIOTENE) 1.5 OZ MM PRN ×2 (08:09→12:41)
--- NOTE | 2019-05-11 08:09 | NUR ---
Oral care performed, pt denies pain or other needs at time.
--- NOTE | 2019-05-11 12:26 | History & Physical-Hospitalist ---
History of Present Illness HPI/Chief Complaint CC: End of life care inpatient Hospice HPI: This is a 73yoWF clinic patient of Dr Simmons who presents to 4th floor for end of life care on inpatient hospice. Patient was admitted on 02/21/19 after undergoing bowel adhesion management by Dr Tom and then presented to the ER 02/22/19 CT revealed post op changes and then admitted 2 days later and found to have multiple bowel perforations requiring multiple surgeries and subsequent VDRF requiring [facility] transfer on 03/20/19 and then returned to IRF from 04/18/19 until yesterday when the decision was made for DNR and end of life and care and DC wound vac and DC TPN and enroll in hospice. Source: patient, family, RN/MD, old records Exam Limitations: clinical condition Date Seen 05/11/19 Time Seen by a Provider: 11:00 Attending Physician Bryanna Gallagher Mark D MD Referring Physician Date of Admission May 10, 2019 at 10:45 Home Medications & Allergies Home Medications Reviewed patient Home Medication Reconciliation performed by pharmacy medication reconciliations automotive technician instructor and/or nursing. Patients Allergies have been reviewed. Allergies Allergies Coded Allergies levofloxacin (Verified Adverse Reaction, Mild, RASH, 07/06/12) amoxicillin (Unverified Adverse Reaction, Unknown, 05/28/14) YEAST INFECTION latex (Unverified Adverse Reaction, Unknown, 04/18/18) Past Yoiqgqc-Qornfe-Mubcsy Hx Past Med/Social Hx: Reviewed Nursing Past Med/Soc Hx, Reviewed and Corrections made Patient Social History Marrital Status: Employed/Student: retired Alcohol Use: Denies Use Recreational Drug Use: No Smoking Status: Former Smoker Former Smoker, Quit: Apr 18, 1959 Type Used: Cigarettes 2nd Hand Smoke Exposure: No Physical Abuse Screen: No Sexual Abuse: No Recent Foreign Travel: No Contact w/other who traveled: No Recent Hopitalizations: Yes ([facility] FOR OPEN ABDOMINAL WOUND) Recent Infectious Disease Expo: No Immunizations Up To Date Tetanus Booster (TDap): Unknown Pediatric: Yes Date of Pneumonia Vaccine: Jan 06, 2015 Date of Influenza Vaccine: Feb 10, 2019 Seasonal Allergies Seasonal Allergies: No Past Medical History Surgeries: Abdominal, Appendectomy, Breast, Cardiac, Eye Surgery, Hysterectomy, Oophorectomy, Renal Currently Using CPAP: No Currently Using BIPAP: No Cardiac: High Cholesterol, Hypertension Neurological: Dementia, Headaches /Migraines, Neuropathy 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: Yes (HYSTERECTOMY) Sexually Transmitted Disease: No HIV/AIDS: No Hysterectomy, Menopausal Genitourinary: Kidney Stones Gastrointestinal: Gastroesophageal Reflux, Obstructive Bowel Musculoskeletal: Chronic Back Pain, Gout Endocrine: Diabetes, Insulin dep, Hypothyroidsim HEENT: Cataract Loss of Vision: Denies Hearing Impairment: Denies Cancer: Colon Did You Recieve Any Treatments: Yes What Type of Treatment Did You: Chemotherapy, Surgical Intervention Psychosocial: Anxiety, Depression History of Blood Disorders: No Adverse Reaction to Blood [place]: No Family History Cancer 03 FATHER, , Onset:60 years & older 03 MOTHER, , Onset:60 years & older 09 BROTHER, , Onset:60 years & older 09 BROTHER, , Onset:60 years & older 09 BROTHER, Onset:60 years & older 09 SISTER, , Onset:60 years & older Cancer of colon 09 BROTHER, , Onset:60 years & older Dementia 09 SISTER, Onset:60 years & older Family history: Diabetes mellitus 09 SISTER, , Onset:60 years & older Heart disease 03 FATHER, , Onset:60 years & older 09 SISTER, , Onset:60 years & older History of - respiratory disease 09 BROTHER, Onset:60 years & older Prostate cancer 09 BROTHER, Onset:60 years & older Stroke 03 MOTHER, , Onset:50's - 60 Heart Disease, Cancer, CVA Review of Systems Constitutional: see HPI Physical Exam Physical Exam Vital Signs Vital Signs - First Documented 05/10/19 10:45 Temp 37.0 Pulse 144 Resp 20 B/P (MAP) 117/67 Pulse Ox 94 O2 Delivery Nasal Cannula O2 Flow Rate 2.50 Capillary Refill : Less Than 3 SecondsLess Than 3 Seconds Height, Weight, BMI Height: 5'5.00" Weight: 160lbs. 0.0oz. [id number]; 25.06 BMI Method:Stated General Appearance: No Apparent Distress, Chronically ill Respiratory: Lungs Clear, Decreased Breath Sounds Cardiovascular: Regular Rate, Rhythm Neurologic/Psychiatric: Disoriented Results Results/Procedures Labs Patient resulted labs reviewed. Assessment/Plan Admission Diagnosis Assessment: End of life care in need of inpatient hospice Plan: Comfort care protocol Admission Status: Inpatient Order (span 2 midnights) Reason for Inpatient Admission: inpatient hospice Diagnosis/Problems Diagnosis/Problems (1) End of life care Clinical Quality Measures DVT/VTE Risk/Contraindication: Risk Factor Score Per Nursin RFS Level Per Nursing on Admit: 4+=Very High BRYANNA GALLAGHER DO May 11, 2019 12:26
[2019-05-11] MEDS ORDERED: CHLORASEPTIC SPRAY 177 ML LIQUID MC PRN (12:45)
[2019-05-11] MEDS: morphine INJ 4 MG/ML 1 ML (VIAL/SYRINGE) IV PRN (16:26)
[2019-05-11] MEDS: ONDANSETRON 4 MG/2 ML (SDV) Z0FRAN IVP PRN (16:26)
[2019-05-12] MEDS: SALIVA STIMULANT MOUTH SPRAY (BIOTENE) 1.5 OZ MM PRN (07:51)
--- NOTE | 2019-05-12 08:00 | NUR ---
Oral care performed, pt given sips of water and Glucerna. Abd dressing/CDI, pt denies pain. Pt voices no other needs at this time. Will continue to monitor.
[2019-05-12] MEDS: ONDANSETRON 4 MG/2 ML (SDV) Z0FRAN IVP PRN (09:25)
[2019-05-12] MEDS: morphine INJ 4 MG/ML 1 ML (VIAL/SYRINGE) IV PRN ×2 (09:25→20:47)
--- NOTE | 2019-05-12 13:01 | Progress Note - Hospitalist ---
Subjective HPI/CC On Admission Date Seen by Provider: May 12, 2019 Time Seen by Provider: 11:00 CC: End of life care inpatient Hospice HPI: This is a 73yoWF clinic patient of Dr Simmons who presents to 4th floor for end of life care on inpatient hospice. Patient was admitted on 02/21/19 after undergoing bowel adhesion management by Dr Tom and then presented to the ER 02/22/19 CT revealed post op changes and then admitted 2 days later and found to have multiple bowel perforations requiring multiple surgeries and subsequent VDRF requiring [facility] transfer on 03/20/19 and then returned to IRF from 04/18/19 until yesterday when the decision was made for DNR and end of life and care and DC wound vac and DC TPN and enroll in hospice. Subjective/Events-last exam Receiving Morphine prn Comfort care maintained NH placement pending SW consultation to help with that Objective Exam Vital Signs Vital Signs Date Time Temp Pulse Resp B/P (MAP) Pulse Ox O2 Delivery O2 Flow Rate FiO2 05/12/19 11:17 Nasal Cannula 2.00 05/10/19 17:32 94 05/10/19 10:45 37.0 144 20 117/67 Capillary Refill : Less Than 3 SecondsLess Than 3 Seconds General Appearance: No Apparent Distress, Other (sleeping) Results/Procedures Lab Patient resulted labs reviewed. Assessment/Plan Assessment and Plan Assess & Plan/Chief Complaint End of life care NHP soon Pain control Diagnosis/Problems Diagnosis/Problems (1) End of life care Clinical Quality Measures DVT/VTE Risk/Contraindication: Risk Factor Score Per Nursin RFS Level Per Nursing on Admit: 4+=Very High YARON GALLAGHER DO May 12, 2019 13:01
--- NOTE | 2019-05-13 09:13 | NUR ---
PALLIATIVE CARE RN consulted for this patient who has a very long hospital course. She was on INPT REHAB prior to this admission that was intended to be GIP hospice service. However, after review of needs and patient clinical picture it is determined by [facility] that they do not meet criteria for GIP. They will be glad be a part of her care post hospital once a location is determined. I will talk to the family and see what their preference is for SNF. Addendum: 05/13/19 at 0917 by RAO PERSON RN Dr. Hand is notified of the above.
--- NOTE | 2019-05-13 09:30 | Progress Note ---
Subjective Date Seen by a Provider: May 13, 2019 Time Seen by a Provider: 09:00 Subjective/Events-last exam Pt apparently is not on hospice now. Remains inpatient. Nausea, vomiting and pain is controlled right now. Pt drowsy and remains bed-ridden. Refusing to eat. Objective Exam Last Set of Vital Signs Vital Signs Date Time Temp Pulse Resp B/P (MAP) Pulse Ox O2 Delivery O2 Flow Rate FiO2 05/13/19 08:42 Nasal Cannula 2.00 05/10/19 17:32 94 05/10/19 10:45 37.0 144 20 117/67 Capillary Refill : Less Than 3 SecondsLess Than 3 Seconds I&O Intake and Output 05/13/19 00:00 Output Total 750 ml Balance -750 ml Output Urine Total 500 ml Stool Total 250 ml General: Other (sleepy) Assessment/Plan Assessment/Plan Assess & Plan/Chief Complaint End of life care Hospice and NH at [place] Diagnosis/Problems Diagnosis/Problems (1) End of life care Clinical Quality Measures DVT/VTE Risk/Contraindication: Risk Factor Score Per Nursin RFS Level Per Nursing on Admit: 4+=Very High YARON GALLAGHER DO May 13, 2019 09:30
--- NOTE | 2019-05-13 09:39 | NUR ---
PALLIATIV E CARE RN spoke with family and patient in room, they report wanting to go to [facility]. I called and spoke to CHICA Cantu and TEMO at [facility]. They may have a room today if another patient leaves. If not it will be likely Monday. She will notify me if they are able to accept her today.
[2019-05-13] MEDS ORDERED: SCOPOLAMINE PATCH REMOVAL TP SCH (10:59)
[2019-05-13] MEDS: SCOPOLAMINE 1.5 MG (TRANSDERM-SCOP) PATCH TOP SCH (11:54)
[2019-05-13] MEDS: morphine INJ 4 MG/ML 1 ML (VIAL/SYRINGE) IV PRN (13:51)
--- NOTE | 2019-05-13 14:18 | NUR ---
Received dietary consult for MST score. Note pt is on comfort care measures at this time. Will continue to follow and reassess as pt needs and status change. Ambrose Cuenca, MS, RD, LD
--- NOTE | 2019-05-13 15:20 | NUR ---
DISCHARGE PLANNING: Received call from A[facility] at [facility]. They will have a discharge tomorrow and will expect that patients admits to them with [place] tomorrow once the room is ready. Will have Dr. Hand put in pending orders and the medications in anticipation of this.
--- NOTE | 2019-05-13 21:45 | NUR ---
PT ASKED PTC FOR HER DAUGHTER TO COME SIT WITH HER. THIS RN CALLED DAUGHTER, AGUEDA, AND LET HER KNOW THAT PT WAS ASKING FOR HER. SHE TOLD THIS RN THAT SHE WOULD HERE JUSTICE.
[2019-05-14] MEDS: LORazepam INJ 2 MG/ML (ATIVAN) VIAL IVP PRN ×2 (00:18→15:43)
[2019-05-14] MEDS ORDERED: MORP20SO PO (05:43)
[2019-05-14] MEDS ORDERED: LORA2ORA PO (05:43)
--- NOTE | 2019-05-14 05:45 | Discharge Summary ---
Diagnosis/Chief Complaint Date of Admission May 10, 2019 at 10:45 Date of Discharge Discharge Date: May 14, 2019 Discharge Diagnosis End of life status Malnutrition Dehydration Discharge Summary Discharge Physical Examination Allergies: Coded Allergies: levofloxacin (Verified Adverse Reaction, Mild, RASH, 07/06/12) amoxicillin (Unverified Adverse Reaction, Unknown, 05/28/14) YEAST INFECTION latex (Unverified Adverse Reaction, Unknown, 04/18/18) Vitals & I&Os Vital Signs Date Time Temp Pulse Resp B/P (MAP) Pulse Ox O2 Delivery O2 Flow Rate FiO2 05/14/19 17:42 37.0 144 20 117/67 94 Nasal Cannula 2.00 General Appearance: Alert, Other (sleepy) Hospital Course Was the Problem List Reviewed?: Yes Hospital Course: Pt had a brief hospital course when she was placed inpatient due to severe abdominal pain with uncontrollable nausea and vomiting after failed inpatient rehab. She was deemed a hospice candidate, DNR orders made and she will be discharged on [facility] under Dr. Simmons's service. Discharge Home Medications: Active Scripts Active Lorazepam Intensol (Lorazepam) 2 Mg/1 Ml Oral.conc 2 Mg PO Q2H PRN Morphine Sulfate 20 Mg/5 Ml Solution 20 Mg PO Q3HR PRN 7 Days Instructions to patient/family Please see electronic discharge instructions given to patient. Diagnosis/Problems Diagnosis/Problems (1) End of life care Clinical Quality Measures DVT/VTE Risk/Contraindication: Risk Factor Score Per Nursin RFS Level Per Nursing on Admit: 4+=Very High YARON GALLAGHER DO May 14, 2019 05:45
--- NOTE | 2019-05-14 10:28 | NUR ---
DISCHARGE PLAN: Patient will be discharge today to [facility] with [facility]. [facility] has a discharge this after noon around 2, then they will ready the room. Once [facility] has the equipment in place then EMS can be notified for transport. Pending discharge orders have been sent to [facility] and to [facility].
--- NOTE | 2019-05-14 13:41 | NUR ---
DISCHARGE PLAN: Received call from [facility]..their clinic will be vacating the room at 4 p.m. [facility] has arranged for equipment to be delivered at that time and they will make a quick turn around for discharge of patient. Araceli will let me now when to call EMS.
[2019-05-14] MEDS: morphine INJ 4 MG/ML 1 ML (VIAL/SYRINGE) IV PRN (17:36)
--- NOTE | 2019-05-14 17:40 | NUR ---
THIS RN GAVE REPORT TO [facility] REGARDING PATIENT. EMS HERE TO TAKE HER AT THIS TIME
[2019-05-14 17:42] VITALS: BP 117/67
== END 2019-05-14 17:42 | disposition hospice, inpatient (51) | DRG 951 ==
LOC: 4TH 10:45
PROVIDERS: ADMIT Internal Medicine; ATTEND Internal Medicine
DX: Z51.5 Encounter for palliative care (principal); E46 Unspecified protein-calorie malnutrition; E86.0 Dehydration; R11.2 Nausea with vomiting, unspecified; R10.9 Unspecified abdominal pain; I10 Essential (primary) hypertension; E78.00 Pure hypercholesterolemia, unspecified; F03.90 Unspecified dementia, unspecified severity, without behavioral disturbance, psychotic disturbance, mood disturbance, and anxiety; Z66 Do not resuscitate; E11.40 Type 2 diabetes mellitus with diabetic neuropathy, unspecified; G43.909 Migraine, unspecified, not intractable, without status migrainosus; K21.9 Gastro-esophageal reflux disease without esophagitis; M54.9 Dorsalgia, unspecified; M10.9 Gout, unspecified; E03.9 Hypothyroidism, unspecified; F41.9 Anxiety disorder, unspecified; F32.9 Major depressive disorder, single episode, unspecified; Z92.21 Personal history of antineoplastic chemotherapy; Z87.891 Personal history of nicotine dependence; Z79.4 Long term (current) use of insulin; Z85.038 Personal history of other malignant neoplasm of large intestine